=== PATIENT | female | born 1960 ===

== ENCOUNTER 2018-07-16 00:53 | Outpatient (CLI) | payer MEDICAID, SELFPAY ==
--- NOTE | 2018-07-16 07:29 | MERGE_ITS ---
*[facility]* *[facility]* [address] [place] [address] Date of study: 07/16/2018 Transthoracic Echocardiography M-mode, limited 2D, limited spectral Doppler, and color Doppler *STUDY CONCLUSIONS* Impressions: Pericardial effusion, unchanged from the study of December 2017. Summary: 1. Left ventricle: The cavity size was normal. Wall thickness was normal. Systolic function was normal. The estimated ejection fraction was 60-65%. Wall motion was normal; there were no regional wall motion abnormalities. 2. Right ventricle: The cavity size was normal. Wall thickness was normal. Systolic function was normal. 3. Inferior vena cava: The vessel was patent and normal in size. The respirophasic diameter changes were in the normal range (greater than or equal to 50%). 4. Pericardium, extracardiac: A small pericardial effusion was identified circumferential to the heart, more pronounced along the RA and RV free wall. There was no evidence of hemodynamic compromise. *PATIENT PRESENTATION* Height: 167.6cm ((66in) ) S/D Pressure: 92 / 56 Weight: 59kg ((129.7lb) ) BSA: 1.67m^2 Test start time: 07:45 AM. Test stop time: 08:15 AM. 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 This study was interpreted by [facility]. Pertinent images and digital data are archived for permanent storage and are available for subsequent review. Comparison was made to the study of 01/15/2018. Study status: Routine. Transthoracic echocardiography. M-mode, limited 2D, limited spectral Doppler, and color Doppler. A Transthoracic Echocardiogram was performed. Scanning was performed from the parasternal, apical, and subcostal acoustic windows. Images were obtained using an [id number] cardiac ultrasound machine. Study completion: The patient tolerated the procedure well. History: PMH: Pericardial effusion. Limited echo per 06/2018. *CARDIAC ANATOMY* Left ventricle: The cavity size was normal. Wall thickness was normal. Systolic function was normal. The estimated ejection fraction was 60-65%. Wall motion was normal; there were no regional wall motion abnormalities. Aorta: Aortic root: The aortic root was normal in size. Mitral valve: Structurally normal valve. Doppler: There was no significant regurgitation. Left atrium: The atrium was dilated. Right ventricle: The cavity size was normal. Wall thickness was normal. Systolic function was normal. Tricuspid valve: Structurally normal valve. Doppler: Transvalvular velocity was within the normal range. There was no evidence for stenosis. There was trivial regurgitation. Pulmonary artery: Pulmonary systolic pressure was within the normal range, in the range of 25mm Hg to 30mm Hg. Right atrium: The atrium was dilated. Pericardium: A small pericardial effusion was identified circumferential to the heart, more pronounced along the RA and RV free wall. There was no evidence of hemodynamic compromise. Systemic veins: Inferior vena cava: Well visualized. The vessel was patent and normal in size. The respirophasic diameter changes were in the normal range (greater than or equal to 50%). Baseline ECG: Bradycardia. Measurements Left ventricle Value 01/15/2018 LV end-diastolic volume, 1-p A2C 58 ml 48 LV ejection fraction, 1-p A2C 64 % 57 LV end-diastolic volume, 1-p A4C 67 ml 63 LV ejection fraction, 1-p A4C 57 % 52 Legend: (L) and (H) mirza values outside specified reference range. I have personally reviewed the images and have reviewed and edited the reported findings. Electronically signed by Humza Luz 07/16/2018 09:30
== END 2018-07-16 00:54 ==
PROVIDERS: PCP Nurse Practitioner; Visit Provider Student in an Organized Health Care Education/Training Program
DX: I31.3 Pericardial effusion (noninflammatory) (principal)
CPT/HCPCS: 93307

== ENCOUNTER 2018-11-08 10:53 | Outpatient (REF) | payer MEDICAID, SELFPAY | END 2018-11-08 11:13 | LOC: LBN 10:53 | PROVIDERS: PCP Nurse Practitioner; Visit Provider Student in an Organized Health Care Education/Training Program | DX: R10.9 Unspecified abdominal pain (principal) | CPT/HCPCS: 87086 ==

== ENCOUNTER 2019-01-16 12:35 | Outpatient (CLI) | payer MEDICAID, SELFPAY ==
[2019-01-16 13:19] LABS: HCT 38.1 % (36.0-46.0); HGB 12.9 g/dL (12.0-15.5); Mean Corp. HGB Concentration 33.9 g/dL (32.0-36.0); Mean Corpuscular Hemoglobin 31.5 pg (27.0-33.0); Mean Corpuscular Volume 92.9 fL (80-95); Mean Platelet Volume 9.9 fL (8.0-11.0); Platelet Count 254 x1000/uL (130-400); RBC Distribution Width 14.1 % (11.7-14.6); White Blood Cell Count 4.09 k/cumm (4.4-10.8)
[2019-01-16 14:07] LABS: ALT 33 U/L (12-78); AST 19 U/L (15-37); Alkaline Phosphatase 81 U/L (46-116); Anion Gap 9.9 mmol/L (3-11); BUN 13 mg/dL (7-18); Bilirubin, Total 0.9 mg/dL (0.2-1.0); CO2 27.1 mmol/L (21.0-32.0); CREATININE 0.71 mg/dL (0.55-1.02); Calcium 9.3 mg/dL (8.5-10.1); Chloride 103 mmol/L (98-107); Cholesterol 213 mg/dL (50-200); Glucose 89 mg/dL (70-100); HDL Cholesterol 104 mg/dL (40-60); LDL CHOLESTEROL 100 mg/dL (<100); Potassium 4.3 mmol/L (3.5-5.1); Sodium 140 mmol/L (136-145); TSH (W/Ref FT4) 2.81 uIU/mL (0.358-3.74); Total Protein 6.9 g/dL (6.4-8.2); Triglyceride 56 mg/dL (30-150)
[2019-01-17 10:53] LABS: Thyroglobulin Antibody 155 U/mL (<61); Thyroperoxidase Antibody 1266 U/mL (<61)
== END 2019-01-16 12:55 ==
PROVIDERS: PCP Nurse Practitioner; Visit Provider Nurse Practitioner
DX: K58.0 Irritable bowel syndrome with diarrhea (principal); F41.9 Anxiety disorder, unspecified; F32.9 Major depressive disorder, single episode, unspecified; R79.9 Abnormal finding of blood chemistry, unspecified; Z13.220 Encounter for screening for lipoid disorders
CPT/HCPCS: 36415; 80053; 80061; 83721; 85027; 86376; 84443

== ENCOUNTER 2019-02-07 01:23 | Outpatient (CLI) | payer MEDICAID, SELFPAY ==
--- NOTE | 2019-02-07 14:17 | DI.US_ITS ---
SYMPTOMS/DIAGNOSIS: MONITORING OF RENAL CYSTS TO LT KIDNEY, N28.1 RENAL ULTRASOUND: Previous CT scans showed a 9 mm simple appearing cyst in the medial aspect of the lower pole of the left kidney. This was not demonstrated on the ultrasound images performed today. The kidneys show normal size and echogenicity and normal parenchymal thickness. No calcifications or hydronephrosis is seen. A small liver cyst is incidentally noted. The right ureteral jet was visualized. The left ureteral jet was not visualized. IMPRESSION: No renal cysts are demonstrated on the current ultrasound. A cyst was seen on the left kidney on previous CT without suspicious features.
== END 2019-02-07 01:43 ==
PROVIDERS: PCP Nurse Practitioner; Visit Provider Nurse Practitioner Gerontology
DX: N28.1 Cyst of kidney, acquired (principal)
CPT/HCPCS: 76770

== ENCOUNTER 2019-10-28 19:14 | Outpatient (REF) | payer MEDICAID, SELFPAY ==
[2019-10-28 18:54] LABS: Bilirubin Negative (Negative); Blood Negative (Negative); Clarity Clear (Clear); Glucose Negative (Negative); Ketones Negative (Negative); Leukocyte Esterase Negative (Negative); Nitrite Negative (Negative); Urobilinogen 0.2 EU/dL (Up TO 0.2)
== END 2019-10-28 19:34 ==
LOC: LBN 19:14
PROVIDERS: PCP Nurse Practitioner; Visit Provider Urology
DX: R30.0 Dysuria (principal); R10.9 Unspecified abdominal pain
CPT/HCPCS: 81003; 87086

== ENCOUNTER 2020-01-06 11:59 | Emergency (ER) | payer MEDICAID, SELFPAY ==
[2020-01-06] VITALS (15 sets, daily range): BP systolic 87–119; BP diastolic 52–68; PULSE 64–72; RESP 11–20; TEMP 36.7; O2SAT 95–100
--- NOTE | 2020-01-06 12:06 | ED.GENADUL_ITS ---
Discharge Plan Disposition Patient Disposition: [facility] Condition: Serious Discharge Details Chief Complaint: Trauma Clinical Impression: Displaced comminuted fracture of shaft of left tibia Primary Care Provider: April Cummins ED Provider: Kike Magana Home Meds and New Rx's Prescriptions: No Action acetylcysteine (bulk) powder See Rx Instructions MC .COMPLEX RF: 0 valacyclovir 1 gram tablet 1,000 mg PO TID Qty: 21 RF: 3 Peppermint Oil 50 MG CAPSULE.DR 50 mg PO DAILY RF: 0 l-5-mthf 1 tab BID RF: 0 thryoid support 2 cap BID RF: 0 epinephrine [EpiPen 2-Amanuel] 0.3 MG/0.3 ML auto-injector 0.3 mg IM PRN Qty: 1 RF: 1 Lactobacillus acidophilus 10 billion cell capsule See Rx Instructions .ROUTE .COMPLEX Qty: 90 RF: 3 Visbiome 112.5 billion cell capsule 3 cap PO DAILY RF: 0 azelastine 137 mcg (0.1 %) aerosol,spray 2 spray AMBROCIO Q12H PRN (Reason: nasal congestion) Qty: 1 RF: 4 fluoxetine 20 mg capsule 60 mg PO DAILY Qty: 270 RF: 3 fluticasone propionate 50 mcg/actuation spray,suspension 1 spray AMBROCIO DAILY RF: 0 Discharge Data Discharge Date/Time-TO BE ENTERED AT DEPARTURE: 01/06/20 14:55 Medical Decision Making 12:13 --59-year-old female here with skiing related injury to left lower leg. Pain and tenderness proximal lower leg. Suspect boot top tib-fib fracture. Neurovascularly intact distally. No other injury suspected. Patient received morphine 10 mg and fentanyl 200 mcg prior to arrival. Will hold additional analgesic at this time. Plan to obtain x-ray of the tib-fib. Patient is currently in box splint that was applied by quill skinner. The seems to be maintaining immobility well. We will continue with block splint given degree of pain with any manipulation. -- xray reviewed and interpreted by me: Comminuted proximal tibial fracture extending into knee joint with some displacement as well as fibula fracture. --Dilaudid 1 mg IV administered for pain. 13:15 -- I called and spoke with Dr. Martinez, he reviewed x-ray and evaluated the patient and feels given complexity of injury he recommends transfer to tertiary care. I called [facility] and requested transfer. Imaging was sent for review. -- I spoke with Dr. Nicholas [facility] trauma who will accept the patient in transfer. She requested cxr and pelvis prior to transfer. Chest x-ray was reviewed and interpreted by me: No pneumothorax. Pelvis x-ray was reviewed and interpreted by me: No fracture. [facility] transfer was arranged for analgesia. Blood pressure noted to be on the lower end of normal with systolic in the 90s. I will give fluid bolus 500 mL of saline to lower for further analgesic opioid dosing during transport. HPI General Mode of arrival: ambulatory . Date/Time Provider Initiated Documentation: 01/06/20 12:03 . Limitations to Documentation: no limitations . Information obtained by: patient . HPI Narrative: 59-year-old female presents with chief complaint of left lower extremity pain. Patient was skiing, caught an edge and left leg twisted and she sustained injury to her left lower leg. This occurred just prior to arrival. spinning bath patroller assisted the patient off the hill and transition to EMS. Patient received fentanyl and morphine prior to arrival. Pain is sharp, still severe and worse with any movement of her lower leg. She has no associated numbness. No other injury sustained. Related Data Home Medications Medication Instructions Recorded Confirmed Peppermint Oil 50 mg PO DAILY 11/01/17 01/06/20 L-5-Mthf 1 tab BID 01/25/18 01/06/20 Thryoid Support 2 cap BID 03/28/18 01/06/20 epinephrine [Epipen 2-Amanuel] 0.3 mg IM PRN #1 u 07/18/18 01/06/20 acetylcysteine (bulk) See Rx Instructions MC .COMPLEX gm 01/16/19 01/06/20 Lactobacillus acidophilus 10 See Rx Instructions .ROUTE 02/05/19 01/06/20 billion cell capsule .COMPLEX #90 cap Lactobac #2-Bifido #1-S. therm 3 cap PO DAILY cap 03/19/19 01/06/20 112.5 billion cell capsule azelastine 137 mcg (0.1 %) nasal 2 spray AMBROCIO Q12H PRN #1 unit 08/13/19 01/06/20 spray aerosol valacyclovir 1 gram tablet 1,000 mg PO TID #21 tab 08/13/19 01/06/20 fluoxetine 20 mg capsule 60 mg PO DAILY #270 tab-cap 09/03/19 01/06/20 fluticasone propionate 50 1 spray AMBROCIO DAILY 10/30/19 01/06/20 mcg/actuation nasal spray,suspension Previous Rx's Medication Instructions Recorded epinephrine [Epipen 2-Amanuel] 0.3 mg IM PRN #1 u 07/18/18 Lactobacillus acidophilus 10 See Rx Instructions .ROUTE 02/05/19 billion cell capsule .COMPLEX #90 cap azelastine 137 mcg (0.1 %) nasal 2 spray AMBROCIO Q12H PRN #1 unit 08/13/19 spray aerosol valacyclovir 1 gram tablet 1,000 mg PO TID #21 tab 08/13/19 fluoxetine 20 mg capsule 60 mg PO DAILY #270 tab-cap 09/03/19 Allergies Allergy/AdvReac Type Severity Reaction Status Date / Time bee pollen Allergy Unknown throat Verified 01/06/20 12:08 closes up wheat Allergy Unknown Skin Rash Verified 01/06/20 12:08 sugar Allergy Unknown Uncoded 01/06/20 12:08 Review of Systems All systems reviewed & are unremarkable except as noted in HPI and below ENT Ears, Nose, Mouth, and Throat: Denies neck pain Cardiovascular Cardiovascular: Denies chest pain and Denies dyspnea Respiratory Respiratory: Denies dyspnea Musculoskeletal Musculoskeletal: Reports as per HPI, Denies back pain and Denies neck pain PFSH Medical History Degenerative disc disease, cervical Genital herpes (Acute) Incontinence in female Kidney stone Pyelonephritis (10/13/15) Surgical History Appendectomy (~1976) Kidney Stone Extraction (10/11/15) Social History Smoking/Tobacco Use Status: Never Alcohol Intake: never Drug use: Never Number of Children: 1 Seatbelt use: always 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 Working smoke detector in home: Yes Carbon monox detector in home: Yes Exam Const General: cooperative and no acute distress HENMT Head: normocephalic and atraumatic Mouth: moist mucous membranes Eyes Conjunctivae: normal conjunctivae Sclera: normal sclerae Neck Neck: full ROM, trachea midline and supple Resp Auscultation: clear to auscultation bilaterally, no rales, no rhonchi and no wheezes Cardio Jugular venous pressure: no JVD Rate: regular rate and not tachycardic Rhythm: regular rhythm Pulses: dorsalis pedis pulses present bilaterally 1+ GI Palpation: soft, not firm, no guarding, no masses, not rigid and nontender Back/Spine/Pelvis Cervical Spine: cervical ROM normal and No cervical spinal tenderness Thoracic/Lumbar Spine: No thoracic spinal tenderness and No lumbar spinal tenderness Skin General skin exam: no rashes or lesions noted Neuro General: alert, awake, oriented x3 and tone normal Motor: other (Able to wiggle toes left foot) Sensory Exam: no sensory deficits noted (Left foot) Extrem General: no edema Left lower extremity: hip/thigh Details: no tenderness and no swelling and lower leg Details: tenderness Location: of the proximal tibia and localized swelling Location: of the proximal lower leg and of the mid lower leg Psych Appearance: grossly normal Mental Status: mental status grossly normal
[2020-01-06 12:29] LABS: HCT 35.1 % (36.0-46.0); HGB 11.8 g/dL (12.0-15.5); Mean Corp. HGB Concentration 33.6 g/dL (32.0-36.0); Mean Corpuscular Hemoglobin 31.6 pg (27.0-33.0); Mean Corpuscular Volume 93.9 fL (80-95); Mean Platelet Volume 9.5 fL (8.0-11.0); Platelet Count 229 x1000/uL (130-400); RBC 3.74 m/cumm (4.00-5.20); RBC Distribution Width 13.8 % (11.7-14.6); White Blood Cell Count 5.75 k/cumm (4.4-10.8)
--- NOTE | 2020-01-06 12:32 | DI.RAD_ITS ---
EXAM: XR TIB/FIB LT INDICATION: PAIN, INJURY. COMPARISON: No exams were available for comparison TECHNIQUE: 2D digital imaging was performed. FINDINGS: The exam is limited by overlying material. Knee is in an immobilizer. There is a comminuted fractur e of the proximal tibial metaphysis, which shows some lateral and posterior displacement. The fractu re extends to the articular surface near the tibial spines. There is also a comminuted fracture of t he proximal fibula, which is displaced. There is no depression at the tibial plateaus. The distal f emur appears intact. The distal tibia and fibula and ankle mortise also appear intact. IMPRESSION: Comminuted fractures of the proximal tibia and fibula.
[2020-01-06 12:44] LABS: ALT 26 U/L (14-59); AST 18 U/L (15-37); Albumin 3.9 g/dL (3.4-5.0); Alkaline Phosphatase 57 U/L (46-116); Anion Gap 8.6 mmol/L (3-11); BUN 14 mg/dL (7-18); Bilirubin, Total 0.3 mg/dL (0.2-1.0); CO2 28.4 mmol/L (21.0-32.0); CREATININE 0.96 mg/dL (0.55-1.02); Calcium 8.6 mg/dL (8.5-10.1); Chloride 105 mmol/L (98-107); Estimated GFR 59.09 (mL/min/1.73m2); Glucose 97 mg/dL (74-106); Potassium 3.8 mmol/L (3.5-5.1); Sodium 142 mmol/L (136-145); Total Protein 6.3 g/dL (6.4-8.2)
[2020-01-06 12:54] LABS: INR 1.1 (0.9-1.1); Prothrombin Time 11.3 sec (9.3-11.0)
[2020-01-06] MEDS: HYDROmorphone 2 MG/ML VIAL 1 MG IVP (12:58)
--- NOTE | 2020-01-06 13:30 | OCONE_ITS ---
Date of service: 01/06/20 Time of Service: 13:31 History of Present Illness History of Present Illness Chief Complaint: Left Leg Injury Narrative: Kalyn is a 59-year-old female was skiing today at [employer]. She is not exactly sure the mechanism but she was coming down towards way when she had some right some loss control. She had immediate pain to the left leg. This pain is over the proximal aspect the left leg. Does not associate with any head trauma loss of consciousness. She denies any foot or ankle or hip pain of the i psilateral leg. She denies any chest discomfort, shortness of breath, chest pain, numbness or tingling. Consults Consult date: 01/06/20 Requesting physician: Kike Magana Consult Reason Left proximal tib-fib fracture Assessment and Plan Assessment and plan (1) Closed fracture of left tibia and fibula: Status: Acute Assessment and plan: Kalyn is a 59-year-old active female who suffered an injury to her left leg while skiing. There is a proximal tib-fib fracture. The fracture in the fibula is quite high but appears to be in contact and therefore does not necessarily be fixed. The tibia appears to be extra-articular. I would recommend a CT scan to evaluate any articular involvement. I discussed the case with lies in detail. I expressed the importance of trying to stabilize this fracture as soon as possible. She had significant pain on the mountain, and transport, and on admission to the emergency department. However, she is currently much more comfortable now in the block splint and requested that the block splint remain in place. She seems to be in a good position and gentle motion of the block splint shows that the leg is stabilized well. Therefore, I will keep her on the block splint. I recommended surgical intervention to the left leg. I would like to attain the CT scan prior to proceeding with the operation. I did explain the complexity of this case including the high risk of compartment syndrome. Given these complexities it would benefit from tertiary center involvement for possible management of compartment syndrome and a complex proximal tib-fib fracture. I encouraged elevation and ice at this point. Given that she is comfortable in the box point we will keep this in place although a long-leg splint would be probably best. I discussed this with Dr. Magana and we will work on transfer to a tertiary center, likely [facility]. Qualifiers: Encounter type: initial encounter Qualified Code(s): S82.202A - Unspecified fracture of shaft of left tibia, initial encounter for closed fracture; S82.402A - Unspecified fracture of shaft of left fibula, initial encounter for closed fracture Review of Systems All systems reviewed & are unremarkable except as noted in HPI and below PFSH Medical History Degenerative disc disease, cervical Genital herpes (Acute) Incontinence in female Kidney stone Pyelonephritis (10/13/15) Surgical History Appendectomy (~1976) Kidney Stone Extraction (10/11/15) Social History Smoking/Tobacco Use Status: Never Alcohol Intake: never Drug use: Never Number of Children: 1 Seatbelt use: always 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 In obvious pain but able to participate in the examination. Head is normocephalic and atraumatic. She is in no acute distress and alert and oriented x3. Extrem Other: Evaluation of the left lower extremity shows no significant malrotation. The left leg is in a wooden box splint. There is notable swelling to the proximal left leg with mild ecchymosis. Palpation of the compartments does show some pain but they are soft. She is able to actively extend and flex the great toe. She is able demonstrate some very gentle ankle range of motion but is reluctant to do so. Passive flexion extension of the great toe as well as the ankle causes only mild pain. There is obvious pain to palpation around the proximal left leg. No appreciable effusion but there is swelling seen around the knee. There is palpable PT DP pulses. She endorses full sensation over the superficial and deep peroneal nerves as well as the tibial nerve. Results Last Vital Signs Temp 36.7 C 01/06/20 11:57 Pulse 64 01/06/20 11:57 Resp 20 01/06/20 11:57 BP 108/55 L 01/06/20 11:57 Pulse Ox 100 01/06/20 11:57 Labs Result diagrams: 01/06/20 12:18 01/06/20 12:18 Labs: Laboratory Results - last 24 hr 01/06/20 01/06/20 01/06/20 12:18 12:18 12:18 WBC 5.75 RBC 3.74 L Hgb 11.8 L Hct 35.1 L MCV 93.9 MCH 31.6 MCHC 33.6 RDW 13.8 Plt Count 229 MPV 9.5 PT 11.3 H INR 1.1 Sodium 142 Potassium 3.8 Chloride 105 Carbon Dioxide 28.4 Anion Gap 8.6 BUN 14 Creatinine 0.96 Estimated GFR/1.73 m2 59.09 Glucose 97 Calcium 8.6 Total Bilirubin 0.3 AST 18 ALT 26 Alkaline Phosphatase 57 Total Protein 6.3 L Albumin 3.9 Imaging Imaging Studies: X-ray of the left tibia and fibula demonstrates a primarily transverse proximal tib-fib fracture. There is fracture irregularity but no significant comminution except at the fibular head neck region. The proximal fibula fracture goes through the base of the head at the level of the neck. There is some mild translation of the fracture fragments medially. There is slight apex anterior deformity as well. There is no clear extension into the articular surface.
--- NOTE | 2020-01-06 13:40 | DI.RAD_ITS ---
EXAM: XR PELVIS AP INDICATION: trauma. COMPARISON: No exams were available for comparison TECHNIQUE: 2D digital imaging was performed. FINDINGS: A single AP view was performed. The exam is somewhat limited by overlying material. No fracture or dislocation is seen. There is spurring of both greater trochanters. There are minimal degenerative changes of the hip joints. The SI joints and pubic symphysis are not widened. IMPRESSION: Mild degenerative changes. No acute abnormality.
--- NOTE | 2020-01-06 13:42 | DI.RAD_ITS ---
EXAM: XR CHEST 1V IN DI DEPT INDICATION: trauma. COMPARISON: No exams were available for comparison TECHNIQUE: 2D digital imaging was performed. AP supine views were performed. FINDINGS: The heart size is within normal limits. The lungs appear clear. No pneumothorax or rib fracture is seen. IMPRESSION: Negative supine chest.
[2020-01-06] MEDS: Normal Saline 500 ML 1000 ML IV (14:25)
== END 2020-01-06 14:55 | disposition short-term general hospital (02) ==
PROVIDERS: Emergency Provider Student in an Organized Health Care Education/Training Program; PCP Nurse Practitioner
DX: S82.252A Displaced comminuted fracture of shaft of left tibia, initial encounter for closed fracture (principal); S82.452A Displaced comminuted fracture of shaft of left fibula, initial encounter for closed fracture; V00.328A Other snow-ski accident, initial encounter; Y93.23 Activity, snow (alpine) (downhill) skiing, snowboarding, sledding, tobogganing and snow tubing
CPT/HCPCS: 36415; 80053; 85027; 96374; 99253; 99285; 71045; 72170; 73590; 85610

== ENCOUNTER 2020-02-03 22:31 | Outpatient (REF) | payer MEDICAID, SELFPAY ==
[2020-02-03 21:24] LABS: Bilirubin Negative (Negative); Blood Negative (Negative); Clarity Clear (Clear); Glucose Negative (Negative); Ketones Trace mg/dL (Negative); Leukocyte Esterase Negative (Negative); Nitrite Negative (Negative); Specific Gravity 1.015 (1.005-1.025); Urobilinogen 0.2 EU/dL (Up TO 0.2); pH 7.5 (5-8)
== END 2020-02-03 22:51 ==
LOC: LBN 22:31
PROVIDERS: PCP Nurse Practitioner; Visit Provider Family Medicine
DX: N39.0 Urinary tract infection, site not specified (principal); R10.9 Unspecified abdominal pain
CPT/HCPCS: 81003; 87086

== ENCOUNTER 2020-03-23 13:00 | Outpatient (CLI) | payer MEDICAID, SELFPAY ==
--- NOTE | 2020-03-23 13:35 | DI.RAD_ITS ---
EXAM: XR TIB/FIB LT CLINICAL HISTORY: LT TIB FX ORIF TECHNIQUE: COMPARISON: XR TIB/FIB LT from 01/06/2020 XR PELVIS AP from 01/06/2020 XR ANKLE LT COMPLETE from 03/23/2020 FINDINGS: Two views of the leg and three views of the ankle were obtained and show plate and screw fixation of proximal tibial metaphyseal fracture. Proximal fibular fracture noted as well. No prior postoperati ve films available for comparison. The ankle mortise is well maintained. There is demineralization of the bones of the ankle and foot. No other significant abnormality seen. IMPRESSION:
== END 2020-03-23 13:20 ==
PROVIDERS: PCP Nurse Practitioner; Visit Provider Orthopaedic Surgery
DX: S82.252D Displaced comminuted fracture of shaft of left tibia, subsequent encounter for closed fracture with routine healing (principal); S82.452D Displaced comminuted fracture of shaft of left fibula, subsequent encounter for closed fracture with routine healing
CPT/HCPCS: 73590; 73610

== ENCOUNTER 2020-04-06 00:33 | Outpatient (CLI) | payer MEDICAID, SELFPAY ==
--- NOTE | 2020-04-06 | DI.RAD_ITS ---
EXAM: XR TIB/FIB LT CLINICAL HISTORY: H/O LT TIB FX, ORIF FOR FX, NEW ANKLE PAIN TECHNIQUE: COMPARISON: CR XR TIB/FIB LT from 03/23/2020 FINDINGS: Two views were obtained and show plate and screw fixation proximal tibial fracture with previously no livia proximal fibular fracture as well. Alignment appears unchanged comparison previous examination A pril . IMPRESSION:
--- NOTE | 2020-04-06 | DI.RAD_ITS ---
EXAM: XR ANKLE LT COMPLETE CLINICAL HISTORY: H/O LT TIB FX, ORIF, NEW ANKLE PAIN TECHNIQUE: COMPARISON: CR XR ANKLE LT COMPLETE from 03/23/2020 FINDINGS: Three views of the ankle were obtained. Bones appear somewhat demineralized which is presumably rela livia to recent tibiofibular fracture. The ankle mortise is well maintained. Minimal periarticular sp urring noted involving the bones of the ankle. No other significant abnormality seen. IMPRESSION:
== END 2020-04-06 00:53 ==
PROVIDERS: PCP Nurse Practitioner; Visit Provider Orthopaedic Surgery
DX: S82.252D Displaced comminuted fracture of shaft of left tibia, subsequent encounter for closed fracture with routine healing (principal); S82.452D Displaced comminuted fracture of shaft of left fibula, subsequent encounter for closed fracture with routine healing; M25.572 Pain in left ankle and joints of left foot
CPT/HCPCS: 73590; 73610

== ENCOUNTER 2020-04-26 03:47 | Outpatient (CLI) | payer MEDICAID, SELFPAY ==
[2020-04-26 13:20] LABS: Abs Immature Grans 0.01 k/cumm (0.0-0.09); Absolute Basophil Count 0.02 k/cumm (0.0-0.2); Absolute Eosinophil Count 0.09 k/cumm (0.0-0.7); Absolute Lymphocyte Count 1.73 k/cumm (1.2-3.4); Absolute Monocyte Count 0.34 k/cumm (0.11-0.7); Absolute Neutrophil Count 3.47 k/cumm (1.2-6.7); Basophils % 0.4; Eosinophils % 1.6; HGB 12.8 g/dL (12.0-15.5); Immature Grans % 0.2 %; Lymphocytes % 30.6; Mean Corp. HGB Concentration 33.7 g/dL (32.0-36.0); Mean Corpuscular Hemoglobin 29.4 pg (27.0-33.0); Mean Corpuscular Volume 87.4 fL (80-95); Mean Platelet Volume 9.8 fL (8.0-11.0); Neutrophils % 61.2; Platelet Count 292 x1000/uL (130-400); RBC 4.35 m/cumm (4.00-5.20); RBC Distribution Width 14.5 % (11.7-14.6); White Blood Cell Count 5.66 k/cumm (4.4-10.8)
[2020-04-26 14:03] LABS: Iron 59 ug/dL (50-170); Total Iron Binding Capacity 274 ug/dL (250-450); Transferrin Sat 22 % (15-50)
[2020-04-26 14:26] LABS: Vitamin D 25 Total 41.2 ng/ml (30-100)
[2020-04-26 14:32] LABS: ALT 36 U/L (14-59); AST 17 U/L (15-37); Albumin 3.9 g/dL (3.4-5.0); Alkaline Phosphatase 74 U/L (46-116); BUN 18 mg/dL (7-18); Bilirubin, Total 0.4 mg/dL (0.2-1.0); Calcium 8.9 mg/dL (8.5-10.1); Calculated LDL 127 mg/dL (<100); Chloride 104 mmol/L (98-107); Cholesterol 228 mg/dL (<200); Ferritin 121 ng/mL (8-252); Glucose 101 mg/dL (74-106); HDL Cholesterol 81 mg/dL (40-60); Sodium 139 mmol/L (136-145); TSH 2.11 uIU/mL (0.36-3.74); Total Protein 6.4 g/dL (6.4-8.2); Triglyceride 102 mg/dL (<150); Vitamin B12 1442 pg/mL (193-986)
[2020-04-26 15:14] LABS: FREE T4 1.22 ng/dL (0.76-1.46)
[2020-04-26 21:38] LABS: T3,Free 3.1 pg/mL (2.8-5.3)
[2020-04-27 10:04] LABS: IgA 130 mg/dL (85-499); IgG 585 mg/dL (610-1,616); IgM 60 mg/dL (35-242)
[2020-04-27 15:14] LABS: Thyroperoxidase Antibody 771 U/mL (<=60)
[2020-04-28 16:10] LABS: Thyroglobulin Antibody 169 U/mL (<=60)
== END 2020-04-26 04:07 ==
PROVIDERS: PCP Nurse Practitioner; Visit Provider Naturopath
DX: Z00.00 Encounter for general adult medical examination without abnormal findings (principal); Z13.29 Encounter for screening for other suspected endocrine disorder; Z13.220 Encounter for screening for lipoid disorders; Z13.21 Encounter for screening for nutritional disorder
CPT/HCPCS: 36415; 80053; 80061; 82306; 82784; 82607; 82728; 83540; 83550; 84439; 84443; 84481; 85025; 86376; 86800

== ENCOUNTER 2020-04-26 09:14 | Outpatient (CLI) | payer MEDICAID, SELFPAY ==
--- NOTE | 2020-04-26 10:35 | DI.RAD_ITS ---
EXAM: XR TIB/FIB LT CLINICAL HISTORY: F/U FX, S82.392S TECHNIQUE: COMPARISON: CR XR TIB/FIB LT from 04/06/2020 FINDINGS: Two views were obtained and show previously described proximal tibial and fibular fractures with plat e and screw fixation of the tibia. Alignment appears unchanged comparison with previous examination of April 06. IMPRESSION:
== END 2020-04-26 09:34 ==
PROVIDERS: PCP Nurse Practitioner; Visit Provider Naturopath
DX: S82.252D Displaced comminuted fracture of shaft of left tibia, subsequent encounter for closed fracture with routine healing (principal); S82.452D Displaced comminuted fracture of shaft of left fibula, subsequent encounter for closed fracture with routine healing
CPT/HCPCS: 73590

== ENCOUNTER 2020-06-08 00:57 | Outpatient (CLI) | payer MEDICAID, SELFPAY ==
--- NOTE | 2020-06-08 | DI.RAD_ITS ---
EXAM: XR FOOT LT COMPLETE CLINICAL HISTORY: LT FOOT/ANKLE PAIN,MEDIALLY, ASSESS FOR FX, ARTHRITIS, BONE SPUR TECHNIQUE: COMPARISON: No exams were available for comparison FINDINGS: Three views were obtained. There is a moderate hallux valgus deformity with moderate secondary degenerative changes at the 1st M TP joint. Mild DJD seen involving the joints of the midfoot and IP joints. There is patchy deminera lization of the bones of the foot and ankle. No other significant abnormality seen. IMPRESSION:
== END 2020-06-08 01:17 ==
PROVIDERS: PCP Naturopath; Visit Provider Physician Assistant
DX: M79.672 Pain in left foot (principal); M25.572 Pain in left ankle and joints of left foot; M19.072 Primary osteoarthritis, left ankle and foot; M20.12 Hallux valgus (acquired), left foot
CPT/HCPCS: 73630

== ENCOUNTER 2020-08-13 16:49 | Outpatient (REF) | payer MEDICAID, SELFPAY ==
[2020-08-13 17:07] LABS: Bilirubin Negative (Negative); Blood Negative (Negative); Clarity Clear (Clear); Glucose Negative (Negative); Ketones Negative (Negative); Leukocyte Esterase Negative (Negative); Nitrite Negative (Negative); Urobilinogen 0.2 EU/dL (Up TO 0.2)
== END 2020-08-13 17:09 ==
LOC: LBN 16:49
PROVIDERS: PCP Nurse Practitioner; Visit Provider Naturopath
DX: R39.15 Urgency of urination (principal); R10.9 Unspecified abdominal pain
CPT/HCPCS: 81003

== ENCOUNTER 2020-08-18 08:22 | Outpatient (CLI) | payer MEDICAID, SELFPAY ==
[2020-08-18 10:14] LABS: FREE T4 0.89 ng/dL (0.76-1.46); TSH 2.26 uIU/mL (0.36-3.74)
[2020-08-18 17:45] LABS: T3,Free 2.4 pg/mL (2.8-5.3)
== END 2020-08-18 08:42 ==
PROVIDERS: PCP Nurse Practitioner; Visit Provider Naturopath
DX: E03.9 Hypothyroidism, unspecified (principal); R53.83 Other fatigue
CPT/HCPCS: 36415; 84439; 84443; 84481

== ENCOUNTER 2020-12-21 10:18 | Outpatient (CLI) | payer MEDICAID, SELFPAY ==
--- NOTE | 2020-12-21 12:00 | DI.RAD_ITS ---
EXAM: XR TMJ BL INDICATION: Bilateral TMJ pain. Grinds teeth, neck pain, jaw pain, M54.2. COMPARISON: No exams were available for comparison TECHNIQUE: 2D digital imaging was performed. FINDINGS: There is normal mobility of the right temporomandibular joint on open and closed mouth views. There is no apparent movement of the left temporomandibular joint on the open or closed mouth view. No deg enerative or erosive changes are seen. The sinuses appear clear.. IMPRESSION: Abnormal lack of motion of the left temporomandibular joint. The right side shows normal motion. DATA REPOSITORY: RADIATION DOSE DELIVERED:
--- NOTE | 2020-12-21 12:00 | DI.RAD_ITS ---
EXAM: XR ELBOW RT COMPLETE CLINICAL HISTORY: pain s/p injury, M25.521. TECHNIQUE: 2D digital imaging was performed. COMPARISON: No exams were available for comparison FINDINGS: BONES: No acute fracture is present. No bony destructive lesion is seen. JOINTS: The elbow is normally aligned. No joint effusion is seen. SOFT TISSUE: Normal. IMPRESSION: Unremarkable radiographs of the right elbow. DATA REPOSITORY: RADIATION DOSE DELIVERED:
--- NOTE | 2020-12-21 12:00 | DI.RAD_ITS ---
EXAM: XR THORACIC SPINE COMPLETE CLINICAL HISTORY: thoracic back pain, injury, M54.9. TECHNIQUE: 2D digital imaging was performed. COMPARISON: CR XR CERVICAL SPINE COMP 4-5V from 12/21/2020 FINDINGS: BONES: There is no fracture or destructive lesion. The vertebral bodies and posterior elements are un remarkable. DISKS:Alignment is within normal limits. There is narrowing of the upper thoracic disc spaces and sm all endplate osteophytes. Mid and lower disc spaces are well maintained. SOFT TISSUE: Visualized lungs are clear. Normal heart size. IMPRESSION: Mild degenerative changes of the upper thoracic spine. DATA REPOSITORY: RADIATION DOSE DELIVERED:
--- NOTE | 2020-12-21 12:00 | DI.RAD_ITS ---
EXAM: XR CERVICAL SPINE COMP 4-5V CLINICAL HISTORY: neck pain after injury, M54.2. TECHNIQUE: 2D digital imaging was performed. COMPARISON: No exams were available for comparison FINDINGS: There is no evidence of fracture or subluxation. There has been a previous anterior fusion at C4 thr ough C6. There is mild narrowing of the C 3 4 and C6-7 disc spaces. There are endplate osteophytes at these levels projecting mainly anteriorly. There are facet joint degenerative changes greatest at C7-T1. Neural foraminal narrowing is noted at C6-7 on the right. Airway appears intact. No prever tebral soft tissue swelling. The visualized Portions of the lungs appear clear. IMPRESSION: Postsurgical and degenerative changes. DATA REPOSITORY: RADIATION DOSE DELIVERED:
== END 2020-12-21 10:38 ==
PROVIDERS: PCP Nurse Practitioner; Visit Provider Nurse Practitioner
DX: M47.814 Spondylosis without myelopathy or radiculopathy, thoracic region (principal); M26.69 Other specified disorders of temporomandibular joint; M54.2 Cervicalgia; M25.521 Pain in right elbow; Z98.1 Arthrodesis status; M99.51 Intervertebral disc stenosis of neural canal of cervical region
CPT/HCPCS: 70330; 72050; 72072; 73080

== ENCOUNTER 2021-01-04 00:57 | Outpatient (CLI) | payer MEDICAID, SELFPAY ==
--- NOTE | 2021-01-04 07:00 | DI.MRI_ITS ---
EXAM: MR CERVICAL SPINE WO CLINICAL HISTORY: Neck pain s/p fall about 1 mos ago.,M54.2,Z98.1,ARTHRODESIS STATUS,H/O FUSI TECHNIQUE: Multiplanar multisequence MRI of the cervical spine was performed without intravenous con trast. COMPARISON: No exams were available for comparison FINDINGS: BONES: Vertebral body heights are maintained. Intervertebral disc spaces are normal. There is straigh tening of the normal cervical lordosis with mild reversal at the C3-C4 level. Degenerative endplate signal changes are seen at C2-3, C3-4, C6-C7 and T1-T2. Anterior cervical fusion from C4 through C6. CERVICAL CORD: Craniovertebral junction is unremarkable. There is a single focus of hyperintensity wi thin the anterior spinal cord posterior to the C5 vertebral body. SOFT TISSUES: Unremarkable. C2-3: Mild prominence of the osteophyte disc complex with a face and of the anterior subarachnoid spa ce. No significant central spinal canal or neural foraminal stenosis. C3-4: Prominence of the osteophyte disc complex causing central spinal canal stenosis. The AP diamet er of the spinal canal is 0.7 cm. There is mild right neural foraminal stenosis. No significant lef t neural foraminal stenosis is present. C4-5: No disc herniation or bulge is identified. Mild narrowing of the left neural foramen. There is artifact from the patient's cervical fusion. There is mild narrowing of the central spinal canal. C5-6: No disc herniation or bulge is identified. There is artifact from the patient's cervical fusion . No definite neural foraminal stenosis is seen. C6-7: There does appear to be a mild diffuse disc bulge. No significant central spinal canal stenosi s. There does appear to be mild to moderate bilateral neural foraminal stenosis. C7-T1: There is a mild diffuse disc bulge. No significant central spinal canal stenosis is seen. No significant neural foraminal stenosis. IMPRESSION: 1. 3 mm area of hyperintense signal in the anterior spinal cord posterior to the C5 vertebral body. A postcontrast CT scan of the cervical spine is recommended for further evaluation. 2. Status post C4 through C6 cervical fusion. 3. Multilevel degenerative changes in the cervical spine resulting in central spinal canal and neural foraminal stenosis as described above. DATA REPOSITORY:
== END 2021-01-04 00:58 ==
LOC: DI 00:58
PROVIDERS: PCP Nurse Practitioner; Visit Provider Nurse Practitioner
DX: M54.2 Cervicalgia (principal); Z98.1 Arthrodesis status; M48.02 Spinal stenosis, cervical region
CPT/HCPCS: 72141

== ENCOUNTER 2021-06-28 06:58 | Emergency (ER) | payer MEDICAID, SELFPAY ==
[2021-06-28] VITALS (35 sets, daily range): BP systolic 99–121; BP diastolic 58–90; PULSE 49–65; RESP 7–20; TEMP 36.1; O2SAT 93–100
--- NOTE | 2021-06-28 07:00 | RT.EKG_ITS ---
APPROVED REPORT Exam: Resting ECG Reason for Exam: chest pain Patient Location: E HR:60 bpm ECG Measurements Heart Rate 60 AXIS HI 157 P 52 QRSd 86 QRS 47 QT 416 T 57 QTc 416 Conclusion Sinus rhythm...normal P axis, V-rate 60- 99 Low voltage, extremity leads...all extremity leads <0.5mV
--- NOTE | 2021-06-28 07:03 | ED.GENADUL_ITS ---
Discharge Plan Disposition Patient Disposition: HOME Condition: Stable Discharge Details Clinical Impression: Chest pain, Back pain, Abdominal pain, Constipation, Gastritis Primary Care Provider: April Cummins ED Provider: Kike Magana Home Meds and New Rx's Prescriptions: New pantoprazole [Protonix] 40 mg tablet,delayed release (DR/EC) 40 mg PO DAILY Qty: 30 RF: 0 glycerin (adult) Suppository 1 supp TX QD-BID PRN (Reason: constipation) Qty: 12 RF: 0 Continued acetylcysteine (bulk) powder See Rx Instructions MC .COMPLEX RF: 0 valacyclovir 1 gram tablet 1,000 mg PO TID Qty: 21 RF: 3 baclofen 5 mg tablet 5 mg PO BID PRN (Reason: muscle spasm) Qty: 30 RF: 0 epinephrine [EpiPen 2-Amanuel] 0.3 MG/0.3 ML auto-injector 0.3 mg IM PRN Qty: 1 RF: 1 fluoxetine 20 mg capsule 60 mg PO DAILY Qty: 270 RF: 3 gabapentin 300 mg capsule 300 mg PO TID RF: 0 fluticasone propionate 50 mcg/actuation spray,suspension 2 spray AMBROCIO DAILY Qty: 18.2 RF: 12 No Action Peppermint Oil 50 MG CAPSULE.DR 50 mg PO DAILY RF: 0 l-5-mthf 1 tab BID RF: 0 thryoid support 2 cap BID RF: 0 Lactobacillus acidophilus 10 billion cell capsule See Rx Instructions .ROUTE .COMPLEX Qty: 90 RF: 3 VSL#3 112.5 billion cell capsule 3 cap PO DAILY Qty: 270 RF: 3 naproxen sodium 220 mg tablet 220 mg PO BID PRNRF: 0 Discharge Instructions Instructions: Gastritis (ED), Constipation (ED) Additional Instructions: Medication reconciliation was performed today. Please be sure to review your medications with your prescribing physician. CT scan of your abdomen revealed findings consistent with gastric wall inflammation. This may be related to gastritis. It is recommended that you decrease dosing of NSAIDs including naproxen. Please take Protonix as prescribed. Please follow-up with your primary care physician as additional diagnostic testing may be necessary should symptoms persist. Please contact your primary care physician today to arrange follow-up. Return to the ER for any worsening or new concerning symptoms. Referrals: April Cummins NP [Primary Care Provider] - Discharge Data Discharge Date/Time-TO BE ENTERED AT DEPARTURE: 06/28/21 11:05 Medical Decision Making <Ree David Chaparro DO - Last Filed: 06/30/21 04:05> 60-year-old female with a history of irritable bowel syndrome, appendectomy, C- section presents for left-sided chest pain, left-sided abdominal pain and left- sided upper back pain for the past 2 weeks. She does admit that she has had frequent chest pain over the past 2 years but states this is been worse and now mainly on the left side for the past 2 weeks. EKG notes a rate of 60, sinus, no STEMI and nondiagnostic. She appears somewhat uncomfortable but nontoxic. Her vitals are within normal limits. Her left paraspinal region is tender to palpation and reproducible with head movement and this appears musculoskeletal. She has scattered wheezing in her left chest. Her abdomen is soft and very minimally tender with deep palpation of left upper and lower quadrants. Suspect her symptoms in the chest and abdomen may likely be due to constipation. Suspect her left back pain is musculoskeletal and either unrelated or viscerosomatic response. Also consider small bowel obstruction, PE. Will place an IV, bolus IV fluids, screening labs, CT chest abdomen and pelvis and give a dose of Toradol and Zofran IV and Valium p.o. and reassess. Labs reviewed and unremarkable. Normal white blood cell count. Troponin negative. Case endorsed to Dr. Magana to follow-up on imaging and final disposition. Medical Records Medical records reviewed: Yes I reviewed the patient's medical records. Lab Data Lab results reviewed: Yes I reviewed the patient's lab results. Labs: Laboratory Tests Range/Units 06/28/21 06/28/21 07:10 07:10 WBC (4.4-10.8) 10^3/uL 4.91 RBC (3.93-5.22) 10^6/uL 4.00 Hgb (11.2-15.7) g/dL 12.5 Hct (36.0-46.0) % 36.9 MCV (80-95) fL 92.3 MCH (27.0-33.0) pg 31.3 MCHC (32.0-36.0) % 33.9 RDW (11.7-14.6) % 13.3 Plt Count (130-400) 10^3/uL 268 MPV (8.0-11.0) fL 9.2 Immature Gran % 0.2 Neutrophils % 50.1 Lymphocytes % 38.9 Monocytes % 6.7 Eosinophils % 3.1 Basophils % 1.0 Nucleated RBC % % 0 Absolute Neutrophils (1.2-6.7) 10^3/uL 2.46 Absolute Lymphocytes (1.2-3.4) 10^3/uL 1.91 Absolute Monocytes (0.1-0.8) 10^3/uL 0.33 Absolute Eosinophils (0.0-0.7) 10^3/uL 0.15 Absolute Basophils (0.0-0.2) 10^3/uL 0.05 Sodium (136-145) mmol/L 137 Potassium (3.5-5.1) mmol/L 4.0 Chloride (98-107) mmol/L 101 Carbon Dioxide (21.0-32.0) mmol/L 30.2 Anion Gap (3-11) mmol/L 5.8 BUN (7-18) mg/dL 11 Creatinine (0.55-1.02) mg/dL 0.7 Estimated GFR/1.73 m2 (mL/min/1.73m2) >= 60.00 Glucose (74-106) mg/dL 92 Calcium (8.5-10.1) mg/dL 8.8 Magnesium (1.8-2.4) mg/dL 2.1 Total Bilirubin (0.2-1.0) mg/dL 0.6 AST (15-37) U/L 16 ALT (14-59) U/L 39 Alkaline Phosphatase (46-116) U/L 65 Troponin I (<0.06) ng/mL < 0.05 Total Protein (6.4-8.2) g/dL 6.5 Albumin (3.4-5.0) g/dL 3.9 ECG Data Attestation: I personally reviewed and interpreted this ECG (s) as follows: Interpretation: Rate of 60, sinus, no acute ST elevation or depression. TX 157. QTc 416. <Kike Magana MD - Last Filed: 06/29/21 16:37> CT of the chest and abdomen pelvis was interpreted by radiology: IMPRESSION:No evidence of pulmonary embolic disease. Gastric wall thickening appears to be present raising the possibility of gastritis, please correlate clinically. Patient reassessed and feeling much better. Plan to treat for gastritis with PPI. I advised her to stop NSAID and discuss additional medication including probiotics with her primary care physician. All results discussed with the patient. She was encouraged to follow-up with her PCP and return immediately for any worsening or new concerning symptoms. Lab Data Lab results reviewed: Yes I reviewed the patient's lab results. HPI <Ree Chaparro DO - Last Filed: 06/30/21 04:05> General Mode of arrival: ambulatory . Date/Time Provider Initiated Documentation: 06/28/21 07:01 . Limitations to Documentation: no limitations . Information obtained by: patient . HPI Narrative: Thank you patient is a 60-year-old female with a history of irritable bowel syndrome depression, appendectomy, presents for 2 weeks of left-sided chest, left upper back and left-sided abdominal pain. Patient states she actually has had anterior chest pain for the past 2 years which she is being evaluated for with additional testing including a recent sleep study. She states for the past 2 weeks the chest pain has been worse and is now mainly on the left side. She states the pain feels like pressure chest pain feels like pressure. The left- sided abdominal pain feels crampy and like gas. She states she had 1 bout of diarrhea recently and has mainly been constipated for the past few days. She states her last bowel movement was 2 days ago and she had to remove it herself. She states she has chronic constipation with her irritable bowel syndrome and states she ran out of her probiotic 2 weeks ago which may have caused her constipation. She tried an enema at home without relief. She admits to nausea but denies any vomiting or fever. She denies any rectal bleeding. She also admits to left-sided upper back pain that is worse with head movement for the past 2 weeks. Related Data Home Medications Medication Instructions Recorded Confirmed Peppermint Oil 50 mg PO DAILY 11/01/17 06/28/21 L-5-Mthf 1 tab BID 01/25/18 06/28/21 Thryoid Support 2 cap BID 03/28/18 06/28/21 epinephrine [EpiPen 2-Amanuel] 0.3 mg IM PRN #1 u 07/18/18 06/28/21 acetylcysteine (bulk) See Rx Instructions MC .COMPLEX gm 01/16/19 06/28/21 valacyclovir 1 gram tablet 1,000 mg PO TID #21 tab 08/13/19 06/28/21 baclofen 5 mg tablet 5 mg PO BID PRN #30 tab 12/21/20 06/28/21 fluoxetine 20 mg capsule 60 mg PO DAILY #270 tab-cap 12/29/20 06/28/21 Lactobacillus acidophilus 10 See Rx Instructions .ROUTE 01/04/21 06/28/21 billion cell capsule .COMPLEX #90 cap Lactobacillus #2-Bifidobacter 3 cap PO DAILY #270 cap 01/17/21 06/28/21 #1-S. therm 112.5 billion cell capsule gabapentin 300 mg capsule 300 mg PO TID 02/01/21 06/28/21 naproxen sodium 220 mg tablet 220 mg PO BID PRN 02/01/21 06/28/21 fluticasone propionate 50 2 spray AMBROCIO DAILY #18.2 ml 05/03/21 06/28/21 mcg/actuation nasal spray,suspension glycerin (adult) 1 supp TX QD-BID PRN #12 ea 06/28/21 pantoprazole [Protonix] 40 mg PO DAILY #30 tab 06/28/21 Previous Rx's Medication Instructions Recorded epinephrine [EpiPen 2-Amanuel] 0.3 mg IM PRN #1 u 07/18/18 valacyclovir 1 gram tablet 1,000 mg PO TID #21 tab 08/13/19 baclofen 5 mg tablet 5 mg PO BID PRN #30 tab 12/21/20 fluoxetine 20 mg capsule 60 mg PO DAILY #270 tab-cap 12/29/20 Lactobacillus acidophilus 10 See Rx Instructions .ROUTE 01/04/21 billion cell capsule .COMPLEX #90 cap Lactobacillus #2-Bifidobacter 3 cap PO DAILY #270 cap 01/17/21 #1-S. therm 112.5 billion cell capsule fluticasone propionate 50 2 spray AMBROCIO DAILY #18.2 ml 05/03/21 mcg/actuation nasal spray,suspension glycerin (adult) 1 supp TX QD-BID PRN #12 ea 06/28/21 pantoprazole [Protonix] 40 mg PO DAILY #30 tab 06/28/21 Allergies Allergy/AdvReac Type Severity Reaction Status Date / Time bee pollen Allergy Unknown throat Verified 06/28/21 07:14 closes up wheat Allergy Unknown Skin Rash Verified 06/28/21 07:14 Tetracyclines Allergy Unverified 06/28/21 07:14 sugar Allergy Unknown Uncoded 06/28/21 07:14 General CHARLIE: 3 Review of Systems <Ree Chaparro DO - Last Filed: 06/30/21 04:05> All systems reviewed & are unremarkable except as noted in HPI and below Constitutional Constitutional: Reports as per HPI, Denies chills and Denies fever(s) Eyes Eyes: Denies blurry vision ENT Ears, Nose, Mouth, and Throat: Denies dizziness, Denies sore throat and Denies throat swelling Cardiovascular Cardiovascular: Denies chest pain and Denies dyspnea Respiratory Respiratory: Denies cough and Denies dyspnea Gastrointestinal Gastrointestinal: Reports abdominal pain, Reports constipation, Denies diarrhea, Reports nausea and Denies vomiting Genitourinary Genitourinary: Denies hematuria and Denies dysuria Musculoskeletal Musculoskeletal: Reports back pain and Denies numbness Integumentary/Breasts Skin/Breast: Denies lesions and Denies rash Neurologic Neurologic: Denies dizziness, Denies localized weakness and Denies numbness Allergic/Immunologic Allergic/Immunologic: Denies throat swelling PFSH <Ree Chaparro DO - Last Filed: 06/30/21 04:05> Medical History (Updated 06/28/21 @ 10:24 by Kike Magana MD) Degenerative disc disease, cervical Depression (11/08/16) Genital herpes Incontinence in female Kidney stone Pyelonephritis (10/13/15) Surgical History (Updated 12/21/20 @ 11:49 by April Cummins NP) Appendectomy (~1976) History of fusion of cervical spine Kidney Stone Extraction (10/11/15) Status post open reduction and internal fixation (ORIF) of fracture with nonunion (01/08/20) left leg [facility] [place] Social History Smoking/Tobacco Use Status: Never Smoking risk assessment performed?: Yes Alcohol Intake: never Drug use: Never Number of Children: 1 Seatbelt use: always 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 Working smoke detector in home: Yes Carbon monox detector in home: Yes Exam <DO Rahul Davis Last Filed: 06/30/21 04:05> Const General: cooperative and no acute distress [facility] Head: normal to inspection Face and sinus: normal facial exam Eyes General: appearance normal, both eyes and all related structures EOM: EOM intact bilaterally Neck Neck: normal visual inspection and No submandibular swelling Lymphatic: no lymphadenopathy noted Chest Chest: normal inspection of the chest and no tenderness Resp Effort & Inspection: normal respiratory effort and able to speak in complete sentences Auscultation: clear to auscultation bilaterally Cardio Rate: regular rate Rhythm: regular rhythm GI Inspection: normal to inspection Palpation: soft, not firm, not rigid and tender (minimal with deep palpation of LUQ/LLQ) Auscultation: normal bowel sounds Back/Spine/Pelvis Thoracic/Lumbar Spine: thoracic and lumbar spine normal to inspection, paraspinal tenderness (L thoracic), No thoracic spinal tenderness and other (Pain in L thoracic paraspinal region reproduced with head movement) Skin General skin exam: no rashes or lesions noted Neuro General: patient alert, patient awake and patient oriented x3 Cognition: normal cognition Speech: speech normal Motor: muscle tone normal throughout Sensory Exam: no sensory deficits noted Extrem General: normal to inspection, full ROM, capillary refill normal, no calf tenderness bilaterally and no edema Psych Appearance: grossly normal Mental Status: mental status grossly normal Speech and Movement: speech and movement normal Affect: normal affect Sign Out <Ree Chaparro DO - Last Filed: 06/30/21 04:05> Sign Out Data: Sign Out Comment: Follow-up on imaging and final disposition. If imaging negative and patient feels better, likely recommend suppositories, enema or magnesium citrate for home. Last updated by Ree Chaparro DO at 06/28/21 08:00
--- NOTE | 2021-06-28 07:30 | DI.CT_ITS ---
Exam(s) CT CHEST PE ABD PELVIS W EXAM: CT CHEST PE ABD PELVIS W TECHNIQUE: CT angiography of the chest, abdomen and pelvis was performed with bolus infusion of 100 cc of Omnipaque 350. Axial CT angiography was performed with multi-slice acquisition and multi-planar and/or 3D reconstruc tions. COMPARISON: CT ABD PELVIS WO CONTRAST from 06/15/2017 FINDINGS: The lungs are clear with mosaic attenuation noted, nonspecific.. No pleural effusion. No evidence o f pulmonary embolic disease. No thoracic aortic dissection or aneurysm. Major branches of the thoraci c aorta appear normal. No pleural effusion. No mediastinal or hilar adenopathy. Tracheobronchial cosme e appears intact. Note is made of possible gastric wall thickening/edema, the possibility of gastritis is raised. Plea se correlate clinically. No focal hepatic or renal abnormality seen apart from multiple hepatic and bilateral renal cysts.. G allbladder and bile ducts are CT normal. Pancreas is unremarkable. Spleen is unremarkable. No abdominal aortic aneurysm or dissection. Major branches of the abdominal aorta appear normal. No a bdominal or pelvic adenopathy. Appendix nonvisualized but no specific evidence of appendicitis.. No significant abdominal wall hernia. No focal bowel pathology. IMPRESSION: No evidence of pulmonary embolic disease. Gastric wall thickening appears to be present raising the possibility of gastritis, please correlate clinically. RADIATION DOSE DELIVERED: 891.69mGy.cm Total DLP 891.69mGy.cm Total DLP CTDIvol DATA REPOSITORY: All CT scans at this facility are submitted to the National Radiology Data Registry (NRDR) Dose Index Registry (DIR) with the [employer] (ACR). RADIATION OPTIMIZATION: All CT scans at this facility use at least one of these dose optimization te chniques: automated exposure control; mA and/or kV adjustment per patient size (includes targeted exa ms where dose is matched to clinical indication); or iterative reconstruction.
[2021-06-28 07:34] LABS: Abs Immature Grans 0.01 10^3/uL (0.0-0.06); Absolute Basophil Count 0.05 10^3/uL (0.0-0.2); Absolute Eosinophil Count 0.15 10^3/uL (0.0-0.7); Absolute Lymphocyte Count 1.91 10^3/uL (1.2-3.4); Absolute Monocyte Count 0.33 10^3/uL (0.1-0.8); Absolute Neutrophil Count 2.46 10^3/uL (1.2-6.7); Eosinophils % 3.1; HCT 36.9 % (36.0-46.0); HGB 12.5 g/dL (11.2-15.7); Immature Grans % 0.2; Lymphocytes % 38.9; MCH 31.3 pg (27.0-33.0); MCHC 33.9 % (32.0-36.0); MCV 92.3 fL (80-95); MPV 9.2 fL (8.0-11.0); Monocytes % 6.7; Neutrophils % 50.1; Nucleated RBC 0 %; Platelet Count 268 10^3/uL (130-400); RDW 13.3 % (11.7-14.6); RDW-SD 45.2 fL; WBC 4.91 10^3/uL (4.4-10.8)
[2021-06-28 07:42] LABS: ALT 39 U/L (14-59); AST 16 U/L (15-37); Albumin 3.9 g/dL (3.4-5.0); Alkaline Phosphatase 65 U/L (46-116); Anion Gap 5.8 mmol/L (3-11); BUN 11 mg/dL (7-18); Bilirubin, Total 0.6 mg/dL (0.2-1.0); CO2 30.2 mmol/L (21.0-32.0); CREATININE 0.7 mg/dL (0.55-1.02); Calcium 8.8 mg/dL (8.5-10.1); Chloride 101 mmol/L (98-107); Glucose 92 mg/dL (74-106); Magnesium 2.1 mg/dL (1.8-2.4); Sodium 137 mmol/L (136-145); Total Protein 6.5 g/dL (6.4-8.2); Troponin I < 0.05 ng/mL (<0.06)
[2021-06-28] MEDS: diazePAM 5 MG TAB PO (07:51)
[2021-06-28] MEDS: Ketorolac 30 MG/ML VIAL IVP (07:52)
[2021-06-28] MEDS: Ondansetron 4 MG/2 ML VIAL IVP (07:52)
[2021-06-28] MEDS: Omnipaque 350 MG/ML 100 ML BTL IJ (08:17)
[2021-06-28] MEDS: Normal Saline - Diluent 50 ML VIAL IV (08:17)
[2021-06-28] MEDS: Normal Saline Flush 10 ML SYR IVP (08:18)
[2021-06-28 08:24] LABS: Lipase 103 U/L (73-393)
[2021-06-28 09:29] LABS: Troponin I < 0.05 ng/mL (<0.06)
[2021-06-28] MEDS: Pantoprazole 40 MG TABCR PO (10:46)
== END 2021-06-28 11:05 | disposition home or self-care (01) ==
PROVIDERS: Physician Assistant; Emergency Provider Student in an Organized Health Care Education/Training Program; PCP Nurse Practitioner
DX: R07.9 Chest pain, unspecified (principal); M54.9 Dorsalgia, unspecified; R10.9 Unspecified abdominal pain; K59.00 Constipation, unspecified; K29.00 Acute gastritis without bleeding
CPT/HCPCS: 36415; 71275; 74177; 80053; 83690; 93005; 96374; 96375; 99285; 83735; 84484; 85025; 93010; 99284; J1885; J2405; J3490

== ENCOUNTER 2021-08-31 01:08 | Outpatient (CLI) | payer MEDICAID, SELFPAY ==
--- NOTE | 2021-08-31 08:00 | DI.MRI_ITS ---
Exam(s) MR THORACIC SPINE WO EXAM: MR THORACIC SPINE WO CLINICAL HISTORY: Chronic upper back pain, radiates to chest,m54.9. TECHNIQUE: Multiplanar multisequence MRI of the Thoracic spine was performed. COMPARISON: CR XR THORACIC SPINE COMPLETE from 12/21/2020 CR XR THORACIC SPINE COMPLETE from 12/21/[address] CHEST PE ABD PELVIS W from 06/28/[address] CHEST PE ABD PELVIS W from 06/28/2021 FINDINGS: Bones: The vertebral body heights are well maintained. Alignment is satisfactory. Degenerative endpla te signal changes are seen at multiple levels of the thoracic spine. Cord: The thoracic cord is normal size and signal intensity. No intrinsic cord lesion is present. Discs: There are mildly prominent disc bulges at multiple levels of the thoracic spine. No significa nt central spinal canal stenosis is seen in the thoracic spine. No neural foraminal stenosis is pres ent. Soft tissues: Hepatic cysts are again seen. IMPRESSION: Multilevel degenerative changes in the thoracic spine. No significant central spinal canal or neural foraminal stenosis is seen. DATA REPOSITORY:
== END 2021-08-31 01:28 ==
PROVIDERS: PCP Nurse Practitioner; Visit Provider Family Medicine
DX: M54.89 Other dorsalgia (principal); M51.34 Other intervertebral disc degeneration, thoracic region
CPT/HCPCS: 72146

== ENCOUNTER 2022-02-09 18:02 | Outpatient (REF) | payer MEDICAID, SELFPAY ==
--- NOTE | 2022-02-09 13:50 | PAPFT_PTH ---
PATIENT: Kalyn Bosch LOC: [facility] U#:[id number] AGE/SX: 61/F ROOM: RE02/09/[address]: April Cummins APRN : 1960 BED: DIS: 02/09/2022 SPEC #: [id number] RECD: 02/09/22 18:27 STATUS: ESVIN REQ #: [id number] INGRID: 02/09/22 13:[address]: April Cummins DEPT: [facility] Cytology RECD BY: Lori Bettencourt Tissues: 1 - CX/ENDOCX FOR PAP SMEARS Procedures: PAP THIN PREP/UVM Screening Comments: [id number] (UNSATISFACTORY FOR EVALUATION)
== END 2022-02-09 18:03 | disposition home or self-care (01) ==
LOC: LBN 18:02
PROVIDERS: PCP Nurse Practitioner; Visit Provider Nurse Practitioner
DX: Z12.4 Encounter for screening for malignant neoplasm of cervix (principal); R87.615 Unsatisfactory cytologic smear of cervix
CPT/HCPCS: 88142

== ENCOUNTER → 2022-02-14 17:35 | Outpatient (CLI) | payer MEDICAID, SELFPAY ==
--- NOTE | 2022-02-14 15:00 | DI.RAD_ITS ---
Exam(s) XR RIBS LT W PA LAT CHEST EXAM: XR RIBS LT W PA LAT CHEST CLINICAL HISTORY: rib pain on lt side, pleurodynia, R07.81, s/p 'bear hug', heard snap TECHNIQUE: 2D digital imaging was performed. PA and lateral chest and three views of the left ribs COMPARISON: CT CT CHEST PE ABD PELVIS W from 06/28/2021 FINDINGS: MEDIASTINUM: Normal. HEART: Normal. PULMONARY VASCULATURE: Normal. LUNGS: Clear. PLEURAL SPACE: No pleural effusion or pneumothorax. BONE:Mild degenerative changes in the thoracic spine. Mild degenerative changes the AC joints. Left RIBS: Normal. OTHER FINDINGS:Normal. IMPRESSION: 1. No acute pulmonary findings. 2. Unremarkable ribs. DATA REPOSITORY: RADIATION DOSE DELIVERED:
== END ==
PROVIDERS: PCP Nurse Practitioner; Visit Provider Nurse Practitioner
DX: R07.81 Pleurodynia (principal)
CPT/HCPCS: 71046; 71100

== ENCOUNTER 2022-02-15 02:22 | Outpatient (CLI) | payer MEDICAID, SELFPAY ==
--- OUTSIDE RECORDS SUMMARY | 2022-02-15 02:25 | XMS_ITS | Continuity of Care Document ---
:1960 Author Organization [facility] and [facility] Address Unavailable , Care Team Providers Name Role Phone April Cummins Tanvri Primary Care Physician Unavailable Encounter [facility] [id number] Date(s): 01/09/20 - 01/18/20 [facility] [address] [place] [address]- Encounter Diagnosis Postoperative anemia due to acute blood loss (Discharge Diagnosis) - 01/09/20 Anxiety (Discharge Diagnosis) - 01/09/20 Unspecified fracture of upper end of left tibia, subsequent encounter for closed fracture with routine healing (Final) - Acute posthemorrhagic anemia (Final) - Sprain of anterior cruciate ligament of left knee, subsequent encounter (Final) - Anxiety disorder, unspecified (Final) - Constipation, unspecified (Final) - Fall from snow-skis, subsequent encounter (Final) - Syncope and collapse (Final) - Unspecified convulsions (Final) - Displaced fracture of lateral condyle of left tibia, initial encounter for closed fracture (Discharge Diagnosis) - 01/09/20 Sprain of anterior cruciate ligament of left knee, initial encounter (Discharge Diagnosis) - 01/09/20 Discharge Disposition: Home Care with Home Health Attending Physician: CRISTAL HERRERA Admitting Physician: CRISTAL HERRERA Allergies, Adverse Reactions, Alerts Substance Reaction Severity Status senna Mild Active Assessment and Plan Extracted from: Title: Discharge Note Author: Nav Clemons Date: 01/18/20 Discharge Plan ?? New Medications: 1) Hydromorphone 2 mg every 6 hours as n eeded for pain 2) Gabapentin 30 mg TID 3) Lovenox 30 mg BID until 02/07/20 4) Cyclobenzaprine 10 mg TID as needed f or muscle spasm ? acetylcysteine: Oral, Daily, 0 Refi ll(s), Refills: 0 ? bifidobacterium/lactobacillus/strep tococcus: 1 packet, Oral, Daily, 30 packet(s), 3 Refill(s), Refills: 3 ? ciclesonide nasal: 2 spray(s), Nasa l, BID, 12.5 gm, 0 Refill(s), Refills: 0 ? cyclobenzaprine: 10 mg = 1 tab(s), Oral, TID, PRN: Spasm, 30 tab(s), 0 Refill(s), Refills: 0 ? enoxaparin: 30 mg = 0.3 mL, Subcuta neous, BID, Post op orthopedic surgery, last day 02/07/20, 41 EA, 0 Refill(s), Refills: 0 ? fluoxetine: 20 mg = 1 cap(s), Oral, TID, 0 Refill(s), Refills: 0 ? gabapentin: 300 mg = 1 cap(s), Oral , TID, 180 cap(s), 0 Refill(s), Refills: 0 ? HYDROmorphone: 2 mg = 1 tab(s), Ora l, q6hr, PRN: Pain, 30 tab(s), 0 Refill(s), Refills: 0 ? ibuprofen: 400 mg = 2 tab(s), Oral, q6hr, Pain or Headache, PRN: Other (see comment), 0 Refill(s), Refills: 0 ? iodine: 2.5 mg, Oral, Daily, 0 Refi ll(s), Refills: 0 ? Non Formulary: See Instructions, Ap ply topically, 0 Refill(s), Refills: 0 ? omega-3 polyunsaturated fatty acids : Oral, 0 Refill(s), Refills: 0 ? pyridoxine: Daily, 0 Refill(s), Ref ills: 0 ?? 1.??Tibia fracture??S82.209A 2.??Postoperative anemia due to acute b lood loss??D62 3.??Anxiety??F41.9 4.??ACL tear??S83.519A 5.??Constipation??K59.00 Patient Discharge Condition Stable Discharge Disposition Home with visiting nurses ?? More than 30 minutes spent on discharge planning and preparation. ?? Follow Up With When Contact Information [facility] Catalina tology 01/27/2020 02:00 PM JOE [facility] [place] [address]- Business (1) Additional Instructions: Arrive to [address], reception clerk [address] [place] [address] for your appointment with Dr. Juan F Cummins 01/26/2020 10:00 AM EST [facility] , Fx: [phone] Additional Instructions: Follow up your hospital stay with your primary care provider. [facility] 01/23/2020 10:20 AM [facility] [address]- Business (1) Additional Instructions: Arrive to retail center receptionist tion 3C at 9:50 for your follow up with Dr. Still. [facility] Rad[facility] 01/23/2020 09:50 AM EST Additional Instructions: Arrive to retail center receptionist tion 3T at 9:45 for your X-Rays Functional Status 01/18/20 History of Fall in Last 3 Months [place] Yes Mobility Kedar Very limited Ambulatory Devices Walker, Wheelchair Medications Spreckels Oil Spreckels Oil, See Instructions, Apply topically, 0 Refill(s) Start Date: 01/18/20 Status: Orderedciclesonide 50 mcg/inh nasal spray 2 spray(s), Nasal, BID, # 12.5 gm, 0 Refill(s) Start Date: 01/09/20 Status: Orderedcyclobenzaprine 10 mg oral tablet 10 mg = 1 tab(s), Oral, TID, PRN PRN Spasm, # 30 tab(s), 0 Refill(s), 01/20/20, Pharmacy: [facility], 1 tab(s) Oral TID,PRN:Spasm Start Date: 01/18/20 Stop Date: 01/20/20 Status: Orderedenoxaparin 30 mg/0.3 mL injectable solution 30 mg = 0.3 mL, Subcutaneous, BID, Post op orthopedic surgery, last day 02/07/20, # 41 EA, 0 Refill(s), 02/07/20, Pharmacy: [facility], 0.3 mL Subcutaneous BID,Instr:Post op orthopedic surgery, last day 02/07/20 Start Date: 01/18/20 Stop Date: 02/07/20 Status: OrderedFish Oil Oral, 0 Refill(s) Start Date: 01/18/20 Status: OrderedFLUoxetine 20 mg oral capsule 20 mg = 1 cap(s), Oral, TID, 0 Refill(s) Start Date: 01/18/20 Status: Orderedgabapentin 300 mg oral capsule 300 mg = 1 cap(s), Oral, TID, # 180 cap(s), 0 Refill(s), Pharmacy: [facility], 1 cap(s) Oral TID Start Date: 01/18/20 Status: OrderedHYDROmorphone 2 mg oral tablet 2 mg = 1 tab(s), Oral, q6hr, PRN PRN Pain, # 30 tab(s), 0 Refill(s), 01/28/20, Pharmacy: [facility], 1 tab(s) Oral q6hr,PRN:Pain Start Date: 01/18/20 Stop Date: 01/28/20 Status: Orderedibuprofen 200 mg oral tablet 400 mg = 2 tab(s), Oral, q6hr, PRN PRN Other (see comment), Pain or Headache, 0 Refill(s) Start Date: 01/18/20 Status: Orderediodine 2.5 mg, Oral, Daily, 0 Refill(s) Start Date: 01/09/20 Status: OrderedNAC Oral, Daily, 0 Refill(s) Start Date: 01/18/20 Status: OrderedVitamin B6 Daily, 0 Refill(s) Start Date: 01/18/20 Status: OrderedVSL#3 oral powder for reconstitution 1 packet, Oral, Daily, # 30 packet(s), 3 Refill(s) Start Date: 01/18/20 Status: Ordered Mental Status 01/18/20 Sensory Perception Kedar Slightly limited Level of Consciousness Alert Problem List Condition Effective Dates Status Health Status Informant Anxiety(Confirmed) Active Chronic diarrhea(Confirmed) Active Danny's disease(Confirmed) Active Renal stone(Confirmed) Active Procedures Procedure Date Related Diagnosis Body Site Status open reduction internal fixation Right tib 2008 Completed with bone graft C4- C6 fusion Completed Results Laboratory List Name Date Hemoglobin DH 01/13/20 .Hemogram DH (CBC DH) 01/10/20 Basic Metabolic Panel DH 01/10/20 Lactate DH 01/10/20 .Hemogram DH (CBC DH) 01/09/20 CMP DH 01/09/20 Lactate DH 01/09/20 Glucose POC1 01/09/20 .Hemogram DH (CBC DH) 01/09/20 Most recent to oldest 1 2 3 [Reference Range]: Albumin Lvl DH [3.2-5.2 3.5 gm/dL gm/dL] (01/09/20 11:02 PM) Alk Phos DH [40-104 unit/L] 41 unit/L (01/09/20 11:02 PM) ALT DH [0-30 unit/L] 11 unit/L (01/09/20 11:02 PM) Anion Gap DH [5-15 mmol/L] 9 mmol/L 14 mmol/L (01/10/20 5:30 AM) (01/09/20 11:02 PM) AST DH [0-30 unit/L] 26 unit/L (01/09/20 11: PM) Bili Total DH [0.2-1.3 0.7 mg/dL mg/dL] (01/09/20 11:02 PM) Chloride Lvl DH [98-107 103 mmol/L 100 mmol/L mmol/L] (01/10/20 5:30 AM) (01/09/20 11:02 PM) CO2 DH [22-31 mmol/L] 28 mmol/L 24 mmol/L (01/10/20 5:30 AM) (01/09/20 11:02 PM) Est GFR DH [>=60] 95 1 92 2 (01/10/20 5:30 AM) (01/09/20 11:02 PM) Glucose Lvl DH [65-99 108 mg/dL 150 mg/dL mg/dL] *HI* *HI* (01/10/20 5:30 AM) (01/09/20 11:02 PM) Potassium Lvl DH [3.5-5.0 4.3 mmol/L 4.0 mmol/L mmol/L] (01/10/20 5:30 AM) (01/09/20 11:02 PM) Sodium Lvl DH [135-145 140 mmol/L 137 mmol/L mmol/L] (01/10/20 5:30 AM) (01/09/20 11:02 PM) Total Protein DH [6.1-8.0 6.1 gm/dL gm/dL] (01/09/20 11:02 PM) BUN DH [8-18 mg/dL] 8 mg/dL 8 mg/dL (01/10/20 5:30 AM) (01/09/20 11:02 PM) Calcium Lvl DH [8.5-10.5 8.9 mg/dL 9.0 mg/dL mg/dL] (01/10/20 5:30 AM) (01/09/20 11:02 PM) Lactic Acid Lvl DH [0.5-2.2 0.5 mmol/L 3 2.5 mmol/L mmol/L] (01/10/20 5:30 AM) *HI* (01/09/20 11:02 PM) Creatinine [0.70-1.20 .67 mg/dL .71 mg/dL mg/dL] *LOW* (01/09/20 11:02 PM) (01/10/20 5:30 AM) GFR - DH 110 4 107 5 [>=60] (01/10/20 5:30 AM) (01/09/20 11:02 PM) Glucose POC [<=600 mg/dL] 154 mg/dL (01/09/20 10:57 PM) Hct DH [35.7-45.8 %] 25.3 % 26.8 % 25.7 % *LOW* *LOW* *LOW* (01/10/20 5:30 AM) (01/09/20 11:02 PM) (01/09/20 6: 10 PM) Hgb DH [11.7-15.5 gm/dL] 8.1 gm/dL 8.4 gm/dL 9.1 gm/ dL *LOW* *LOW* *LOW* (01/13/20 5:32 AM) (01/10/20 5:30 AM) (01/09/20 11: 02 PM) MCHC DH [31.7-35.0 pg] 33.2 pg 34.0 pg 33.5 pg (01/10/20 5:30 AM) (01/09/20 11:02 PM) (01/09/20 6: 10 PM) MCH DH [27.1-32.0 pg] 31.8 pg 32.0 pg 32.0 pg (01/10/20 5:30 AM) (01/09/20 11:02 PM) (01/09/20 6: 10 PM) MCV DH [82.6-94.4 fL] 95.8 fL 94.4 fL 95.5 fL *HI* (01/09/20 11:02 PM) *HI* (01/10/20 5:30 AM) (01/09/20 6:10 PM) MPV DH [7.6-12.9 fL] 9.9 fL 10.3 fL 10.2 fL (01/10/20 5:30 AM) (01/09/20 11:02 PM) (01/09/20 6: 10 PM) Platelet DH [145-357 169 x10(3)/mcL 211 x10(3)/mcL 145 x10(3)/ mcL x10(3)/mcL] (01/10/20 5:30 AM) (01/09/20 11:02 PM) (01/09/20 6: 10 PM) RBC DH [4.00-5.21 2.64 x10(6)/mcL 2.84 x10(6)/mcL 2.69 x10(6)/mc L x10(6)/mcL] *LOW* *LOW* *LOW* (01/10/20 5:30 AM) (01/09/20 11:02 PM) (01/09/20 6: 10 PM) RDWCV DH [11.5-14.1 13.2 x10(6)/mcL 13.0 x10(6)/mcL 13.2 x10(6)/ mcL x10(6)/mcL] (01/10/20 5:30 AM) (01/09/20 11:02 PM) (01/09/20 6: 10 PM) RDWSD DH [37.0-46.0 fL] 46.3 fL 45.3 fL 46.4 fL *HI* (01/09/20 11:02 PM) *HI* (01/10/20 5:30 AM) (01/09/20 6:10 PM) WBC DH [4.0-9.5 x10(3)/mcL] 6.4 x10(3)/mcL 8.4 x10(3)/mcL 5.5 x10(3)/mcL (01/10/20 5:30 AM) (01/09/20 11:02 PM) (01/09/20 6: 10 PM) Blood Glucose, Capillary 154 mg/dL POC [74-118 mg/dL] *HI* (01/09/20 10:57 PM) 1Result Comment: The eGFR was calculated using the CKD-EPI equation. As with all creatinine based estimates of kidney function, eGFR values calculated with the CKD-EPI equation are not accurate in patients with acute kidney failure, extremes of body mass or the acutely ill. http://[email or web address] Comment: The eGFR was calculated using the CKD-EPI equation. As with all creatinine based estimates of kidney function, eGFR values calculated with the CKD-EPI equation are not accurate in patients with acute kidney failure, extremes of body mass or the acutely ill. http://[employer]/[email or web address] Comment: result confirmed by [email or web address] Comment: The eGFR was calculated using the CKD-EPI equation. As with all creatinine based estimates of kidney function, eGFR values calculated with the CKD-EPI equation are not accurate in patients with acute kidney failure, extremes of body mass or the acutely ill. http://[employer]/[email or web address] Comment: The eGFR was calculated using the CKD-EPI equation. As with all creatinine based estimates of kidney function, eGFR values calculated with the CKD-EPI equation are not accurate in patients with acute kidney failure, extremes of body mass or the acutely ill. http://[employer]/[facility] Reports true Exam Date Time Procedure Performing Provider Status 01/09/20 11:[address] Head or Brain w/o Contrast NEGRITO IVAN; Modified Notes:(CT Head or Brain w/o Contrast) Reason For Exam: ?seizureCT HEAD OR BRAIN W/O CONTRAST EXAMINATION: CT HEAD OR BRAIN W/O CONTRAST CLINICAL HISTORY: ?seizure TECHNIQUE: CT head performed without intravenous contrast administration. COMPARISON: CT head dated 01/06/2020 FINDINGS: Bassett-white interface appears relatively well differentiated. No acute intracranial hemorrhage identified. No significant mass effect appreciated. Included paranasal sinuses appear well aerated. Included mastoid air cells appear well-aerated. Calvarium appears intact. IMPRESSION: No acute intracranial hemorrhage or mass effect identified. Preliminary report signed by: Melody Sabillon at 01/10/2020 12:19 AM I have personally reviewed the image(s) and the resident's interpretation and agree with the findings, Luis Ricardo at 01/10/2020 2:00 AM Thank you for letting us participate in the care of this patient. For questions regarding this report, please contact the number below. Final Dictated: 01/10/2020 2:05 am Luis Ricardo M.D. Signed (Electronic Signature): 01/10/2020 2:00 am Signed by: Luis Ricardo M.D. Transcribed by: [facility] Vital Signs Most recent to oldest 1 2 3 [Reference Range]: Temperature Oral 36.8 DegC 36.7 DegC 36.8 DegC [35.8-37.3 DegC] (01/18/20 7:56 AM) (01/17/20 8:44 PM) (01/17/20 7: 42 AM) Temperature Oral (DegF) 98.06 DegF 98.78 DegF 97.52 De gF (01/17/20 8:44 PM) (01/16/20 8:30 PM) (01/16/20 7:5 7 AM) Apical Heart Rate [60-100 72 bpm 75 bpm 76 bpm bpm] (01/17/20 7:43 AM) (01/14/20 2:05 PM) (01/13/20 8:5 6 PM) Peripheral Pulse Rate 65 bpm 71 bpm 74 bpm [60-100 bpm] (01/18/20 7:57 AM) (01/17/20 7:43 AM) (01/16/20 8:3 1 PM) Heart Rate Monitored 64 bpm [60-100 bpm] (01/17/20 8:44 PM) Respiratory Rate [14-20 16 br/min 18 br/min 16 br/mi n br/min] (01/18/20 7:57 AM) (01/17/20 8:44 PM) (01/17/20 7:4 3 AM) Blood Pressure 105/65 mmHg 110/65 mmHg [90-140/60-90 mmHg] (01/18/20 7:56 AM) (01/17/20 8:44 PM) Systolic Blood Pressure 115 mmHg [90-140 mmHg] (01/17/20 7:41 AM) Diastolic Blood Pressure 55 mmHg [60-90 mmHg] *LOW* (01/17/20 7:41 AM) Mean Arterial Pressure, 78 mmHg 80 mmHg 75 mmHg Cuff (01/18/20 7:56 AM) (01/17/20 8:44 PM) (01/17/20 7:4 1 AM) BP Site Left arm Left arm Left arm (01/16/20 8:30 PM) (01/15/20 8:29 PM) (01/14/20 8:4 4 PM) Patient Position BP Supine Supine Supine (01/17/20 8:44 PM) (01/16/20 8:30 PM) (01/15/20 8:2 9 PM) SpO2 [92-100 %] 96 % 98 % 98 % (01/18/20 7:57 AM) (01/17/20 8:44 PM) (01/17/20 7:4 3 AM) Height 167.64 cm (01/12/20 1:24 PM) Height/Length Dosing 167 cm (01/09/20 6:22 PM) Weight 58.0 kg 58.1 kg 57.9 kg (01/17/20 5:03 AM) (01/16/20 5:18 AM) (01/15/20 4:4 6 AM) Weight Measured (lbs) 124.96 lb (01/09/20 6:22 PM) Weight Dosing 56.8 kg (01/09/20 6:22 PM) Usual Weight 56.36 kg (01/12/20 1:24 PM) Body Mass Index Measured 22.06 kg/m2 (01/12/20 1:24 PM) Measurement Comments Left upper thigh measured 56cm Left thi gh measured for 59cm and marked. (01/14/20 12:00 AM) (01/13/20 12:02 AM) Social History Social History Type Response Smoking Status Never (less than 100 in life time) entered on: 01/09/20 Sex Hospital Discharge Instructions Patient Enqjmmtju50/23/2020 11:05:13Instructions - Orthopedic Surgery (YSABEL)Instructions after your Orthopedic surgery: New Medications: 1) Hydromorphone 2 mg every 6 hours as needed for pain - try to extend the frequency to every 8-12 hours as tolerated 2) Gabapentin 300 mg three times a day 3) Cyclobenzaprine (Flexiril) 10 mg three times a day as needed for muscle spasm 4) Lovenox 30 mg twice daily - last day 02/07/20 Diet: Regular Activity: Nonweightbearing left leg. Left leg in brace at all times - can remove for hygeine and cleaning. Allowed to have ROM with brace on. Activity restrictions: Non weightbearing left leg. Do not drive unless you are off your narcotic pain medication and/or cleared by your surgeon. Dressing: Mepilex over left ex fix wounds (due to occasional drainage), change every 3 days, or if soaked through Showering: Do not submerge the incision. Sutures/Everest: Stay in place until follow up with orthopedic surgeon. To prevent clotting after surgery: Take: Enoxaparin (Lovenox) 30 mg twice daily End date: 02/07/20 Call your healthcare provider or surgeon if: If you develop a persistent fever >100.5F and increasing redness/drainage/swelling over your joint or surgical incision. 01/18/2020 11:05:13Hospitalist Services Upon Discharge (CARRIE STEPHENSON) (CUSTOM) Services Upon Discharge Patient is being discharged home with these services in place: HOME SERVICES: Home Services Discharge - Arrangements and orders for follow-up care Service Provider: [facility] Contact Service(s) to be Provided: physical therapy, occupational therapy, home health aide, nurse Frequency: Additional Comments: Request start date 01/19/2020 Date of the face to face encounter: 01/18/20 This visit was related to s/p orif left tib fx for which the patient needs skilled home health services.?? My clinical findings support the need for skilled: Occupational Therapy- 2x weekly for progression of independence with IADLs Physical Therapy- 2x weekly for strengthening, stretching, endurance, balance and functional independence Nursing- CV and pulmonary assessment, dressing care and monitoring Home Health Aide- 2x weekly for showering r/t impaired weakness and immobility, promote ADL independence Dressing: Mepilex over left ex fix wounds (due to occasional drainage), change every 3 days, or if soaked through The patient is homebound and requires considerable and taxing effort to leave their residence secondary to use of assistive device to ambulate and needing assist of one to leave home. To all home service providers, please contact the patient???s Primary Care Provider - Dr. April Cummins - with all follow up regarding your services. Reviewed and Electronically Signed By: Nav Clemons MD Date: 01/18/20 Follow Up Care01/09/2020 15:50:45With:[facility] Address[facility] [place] [place] [address]- Business (1) When:01/27/2020 14:00:00 Comments:[facility] reception [address] for your appointment with Dr. RogelWith:[facility] Address:Unknown When:01/23/2020 09:50:00 Comments:Arrive to reception clerk at 9:45 for your X-RaysWith:[facility] Address: [facility] [place] [address]- Business (1) When:01/23/2020 10:20:00 Comments:Arrive to reception clerk 3C at 9:50 for your follow up with Dr. Still.With: April Cummins Address: [facility] , Fx: [phone] When:01/26/2020 10:00:00 Comments:Follow up your hospital stay with your primary care provider.
--- OUTSIDE RECORDS SUMMARY | 2022-02-15 02:25 | XMS_ITS | Encounter Summary ---
:1960 Author Organization [place] [address] Care Team Providers Name Role Phone April Cummins APRN Primary Care Provider Encounter Details Date Type Department Care Team Description 07/27/2021 Hospital [place] [address] Social History Tobacco Use Types Packs/Day Years Used Date Never Smoker Smokeless Tobacco: Never Used Comments: Exposure to smoking in the [place] until the age of 16 Alcohol Use Standard Drinks/Week Comments No 0 (1 standard drink = 0.6 oz pure alcoho l) Sex Assigned at Date Recorded Not on file documented as of this encounter Medications at Time of Discharge Medication Sig Dispensed Refills Start Date End Date GLYCERIN, ADULT, RECT Place rectally. 0 06/28/20 21 Lactobacil Take 3 capsules by 0 01/17/2021 2-S.thermo-Bifido 1 mouth. (LACTOBAC #2-BIFIDO #1-S. THERM ORAL) fluticasone propionate by Nasal route. 0 05/03/20 21 (Flonase) 50 mcg/actuation [place], Suspension pantoprazole EC Take by mouth. 0 06/28/2021 (Protonix) 40 mg Tablet, Delayed Release (E.C.) EPINEPHrine 0.3 mg/0.3 Inject 0.3 mLs into 1 kit 3 11/2020 mL Auto-Injector the muscle once as needed (allergic reaction ( tight throat, difficulty breathing, lightheaded)). ferrous bis-glycinate by Mis.(Non-Drug; 0 chelate (iron bisglycin Combo Route) route. chelate, bulk,) Powder Thyroid, Pork, ([place] Take 45 mg by mouth 0 Thyroid) 15 mg Tablet daily. castor oil Oil 0 01/18/2020 [place] Oil, See Instructions, Apply topically, 0 Refill(s) pyridoxine, vitamin B6, 0 01/18/2020 (B-6) 100 mg Tablet Daily, 0 Refill(s) polyethylene glycol Take 17 g by mouth 2 14 each 0 2019 (Miralax) 17 gram Powder times daily. in Packet Ciclesonide (OMNARIS) 50 INSTILL TWO SPRAYS 12.5 g 0 mcg [place], Non-Aerosol IN EACH NOSTRIL TWICE A DAY [id number] Take 3 capsules by 90 capsule 3 02/2019 therm. (VISBIOME) 112.5 mouth daily. billion cell CapsuleIndications: Small intestinal bacterial overgrowth, Irritable bowel syndrome with diarrhea b complex vitamins Take 1 capsule by mouth daily. With 0 Capsule folic acid B-1,2,3,5,12 Biotin acetylcysteine (NAC Take by mouth. 0 ORAL) GLUTATHIONE ORAL Take by mouth 0 daily. IODINE ORAL Take 2.5 mg by mouth 0 daily. FLUoxetine (PROZAC) 10 Take 10 mg by mouth 0 mg Tablet 3 times daily. naproxen sodium (ALEVE) Take by mouth. 0 01/27/2022 220 mg Capsule omega 2-tny-klc-fish oil Take by mouth. 0 201901/27/2022 (Fish Oil) 100-160-1,000 mg Capsule oxyCODONE (Roxicodone) 5 Take 1 tablet by 24 tablet 0 01/2701/27/2022 mg TabletIndications: mouth every 6 hours Closed displaced as needed for Pain. comminuted fracture of shaft of left tibia with routine healing, subsequent encounter ibuprofen (Advil;Motrin) Take 200 mg by mouth 0 01/27/2022 200 mg Tablet every 6 hours as needed for Pain. acetaminophen (Tylenol) Take 2 tablets by 90 tablet 1 01/0901/27/2022 500 mg Tablet mouth every 6 hours. gabapentin (Neurontin) Take 1 capsule by 60 capsule 0 201901/27/2022 300 mg Capsule mouth 3 times daily. HYDROmorphone (Dilaudid) Take 1-2 tablets by 40 tablet 0 01/27/2022 2 mg Tablet mouth every 4 hours as needed for Pain (1 tab for moderate pain (4-6) or 2 tabs for severe pain (7-10)). senna-docusate Take 2 tablets by 60 tablet 0 01/09/202002/2022 (Pericolace) 8.6-50 mg mouth 2 times daily. Tablet documented as of this encounter Plan of Treatment Upcoming Encounters Date Type Specialty Care Team Description 04/03/2022 TH Visit (TeleHealth) Neurology Pippa Jc MD [facility] Medical [facility] Dr Zhang [place] 0375 (Wo rk) Scheduled Procedures Name Priority Associated Diagnoses Date/Time COLONOSCOPY, DIAGNOSTIC Encounter for colorectal cancer screening documented as of this encounter Visit Diagnoses Not on filedocumented in this encounter Care Teams Technical Aid Relationship Specialty Start Date End Date April Cummins APRN PCP - General Internal Medicine 01/13/[address] [place] [address] documented as of this encounter
--- OUTSIDE RECORDS SUMMARY | 2022-02-15 02:25 | XMS_ITS ---
:1960 External Reference #:[id number] Author Care Team Providers Name Role Phone Connie Gayle Primary Care Provider Unavailable Allergies Code Code System Name Reaction Severity Status Onset Wheat Arthralgia Moderate to Active 999 Containing Prod (Joint Pain) Severe ? Diarrhea Moderate to Active ? Severe ? Rash Moderate to Active ? Severe Medications None recorded. Problems None recorded. Procedures Date Name Performed by ? 06/26/2007 Neurosurgery Information not avai lable 06/26/2007 Orthopedic Surgery Information not avai lable 10/26/2006 Orthopedic Surgery Information not avai lable 08/26/1995 Caesarean Section Information not avai lable 07/27/1978 Appendectomy Information not avai lable Results Lab Results None recorded. Past Encounters None recorded. Social History Tobacco Smoking Status Never Smoker Vaccine List Vaccine Type polio, unspecified formulation 04/26/1963 Plan of Care Reminders Provider Appointments None ? ? recorded. Lab None ? ? recorded. Referral None ? ? recorded. Procedures None ? ? recorded. Surgeries None ? ? recorded. Imaging None ? ? recorded. Vitals Weight 109 lbs 16 oz
--- OUTSIDE RECORDS SUMMARY | 2022-02-15 02:25 | XMS_ITS | Clinical Summary ---
:1960 Author Organization [place] [place] [address] Care Team Providers Name Role Phone April Cummins APRN Primary Care Provider Allergies Active Allergy Reactions Severity Noted Date Comments Bee Pollen 12/21/2020 Other reaction( s): throat closes up Folic Acid 02/01/2021 Milk Diarrhea 03/06/2019 Senna 05/21/2020 Dextrose 06/28/2021 Tetracycline Nausea Only 04/17/2019 Wheat Other (See Comments) 11/23/2017 Gastroi ntestinal distress Medications Medication Sig Dispensed Refills Start Date End Date Status FLUoxetine (PROZAC) 10 Take 10 mg by 0 Active mg Tablet mouth 3 times daily. b complex vitamins Take 1 capsule by mouth daily. With 0 Active Capsule folic acid B-1,2,3,5,12 Biotin acetylcysteine (NAC Take by mouth. 0 Active ORAL) GLUTATHIONE ORAL Take by mouth 0 Active daily. IODINE ORAL Take 2.5 mg by 0 Act ruth mouth daily. [id number] Take 3 capsules 90 capsule 3 9 Active therm. (VISBIOME) 112.5 by mouth daily. billion cell CapsuleIndications: Small intestinal bacterial overgrowth, Irritable bowel syndrome with diarrhea Additional Information Patient not taking. Reported on 01/27/2022 Ciclesonide (OMNARIS) 50 mcg INSTILL TWO SPRAYS IN EACH 12.5 g 0 09/08/2019 Active [place], Non-Aerosol NOSTRIL TWICE A DAY Additional Information Patient not taking. Reported on 01/27/2022 polyethylene glycol (Miralax) Take 17 g by mouth 2 14 each 0 01/09/2020 Active 17 gram Powder in Packet times daily. Additional Information Patient not taking. Reported on 01/27/2022 castor oil Oil 0 01/18/2020 Acti ve [place] Oil, See Instructions, Apply topically, 0 Refill(s) pyridoxine, vitamin B6, 0 01/18/2020 Active (B-6) 100 mg Tablet Daily, 0 Refill(s) ferrous bis-glycinate by Misc.(Non-Drug; Combo 0 Active chelate (iron bisglycin Route) route. chelate, bulk,) Powder Thyroid, Pork, ([place] Take 45 mg by mouth 0 Active Thyroid) 15 mg Tablet daily. GLYCERIN, ADULT, RECT Place rectally. 0 06/28/2021 Active Lactobacil Take 3 capsules by 0 01/17/2021 Active 2-S.thermo-Bifido 1 mouth. (LACTOBAC #2-BIFIDO #1-S. THERM ORAL) fluticasone propionate by Nasal route. 0 05/03/2021 Active (Flonase) 50 mcg/actuation [place], Suspension pantoprazole EC (Protonix) Take by mouth. 0 021 Active 40 mg Tablet, Delayed Release (E.C.) EPINEPHrine 0.3 mg/0.3 mL Inject 0.3 mLs into the 1 kit 3 07/27/2021 Active Auto-Injector muscle once as needed (allergic reaction ( tight throat, difficulty breathing, lightheaded)). amino acids/protein Take by mouth. 0 Active supplement (AMINO ACIDS ORAL) HYDROCHLORIC ACID, BULK, by Misc.(Non-Drug; Combo 0 Active MISC Route) route. Vitamin B Complex-Vitamin Take 1 capsule by mouth 0 Active C-Folic Acid (Nephrocap) 1 daily. mg Capsule nutritional Take by mouth. 0 Ac tive supplement/fiber (PEPTIDE 1.0 ORAL) UNABLE TO FIND bio botanical 0 A ctive enzymes,digestive Take by mouth. 0 Active (DIGESTIVE ENZYMES ORAL) gabapentin (Neurontin) 100 100 mg AM, 200 mg HS 90 capsule 12 0 01/31/2022 Active mg Capsule cyclobenzaprine (Flexeril) Take 1 tablet by mouth 30 tablet 0 01/31/2022 Active 5 mg Tablet nightly. 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 Lower urinary tract symptoms (LUTS) 12/04/2018 History of nephrolithiasis 12/04/2018 Renal cyst, acquired 12/04/2018 NELSON (stress urinary incontinence, female) 12/04/2018 Cystocele, midline 12/04/2018 Disorder of muscle, ligament, and fascia 03/01/2018 Pelvic floor dysfunction 03/01/2018 Chronic constipation 03/01/2018 Mixed stress and urge urinary incontinence 03/01/2018 DJD (degenerative joint disease) of cervical spine Left ulnar fracture 02/16/2016 Encounters Date Type Specialty Care Team Description 01/31/2022 Office Visit Neurology Jed Jc MD Headache, c ervicogenic; Injury of cervi vanessa spinal cord, subsequent encounter 01/31/2022 Orders Only Gastroenterology Beth Guerra Nausea and vomiting, E, [employer]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 intractability of vomiting not specified, unsp ecified vomiting type 01/30/2022 Telephone Gastroenterology Lisa Castillo 01/30/2022 Telephone Gastroenterology Suzan Taylor CMA 01/27/2022 TH Visit Gastroenterology Beth Guerra for colorectal cancer screening; (TeleHealth) E, [employer] DES[employer]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 Irritable bowel syndrome with diarrhea; Small intestina l bacterial overgrowth from Last 3 Months Family History Medical History Relation Comments Chronic Obstructive Pulmonary Disease Father Allergic Rhinitis Mother Asthma Mother Cancer Mother Chronic Obstructive Pulmonary Disease Mother Food Allergy Other Relation Status Comments Father Mother Other Social History Tobacco Use Types Packs/Day Years Used Date Never Smoker Smokeless Tobacco: Never Used Comments: Exposure to smoking in the [place] until the age of 16 Alcohol Use Standard Drinks/Week Comments No 0 (1 standard drink = 0.6 oz pure alcoho l) Sex Assigned at Date Recorded Not on file Last Filed Vital Signs Vital Sign Reading Time Taken Comments Blood Pressure 120/74 07/27/2021 1:01 PM EDT Pulse 60 07/27/2021 1:01 PM EDT Temperature 36.9 ??C (98.4 ??F) 01/09/2020 1:14 PM EST Respiratory Rate 18 01/09/2020 1:14 PM EST Oxygen Saturation 99% 07/27/2021 1:01 PM EDT Inhaled Oxygen Concentration - - Weight 56.7 kg (125 lb) 02/24/2021 10:08 AM EDT Height 167.6 cm (5' 6) 02/24/2021 10:08 AM EDT Body Mass Index 20.18 02/24/2021 10:08 AM EDT Plan of Treatment Upcoming Encounters Date Type Specialty Care Team Description 04/03/2022 TH Visit (TeleHealth) Neurology Pippa Jc MD [facility] [address] [place], [place] [address] (Wo rk) Scheduled Procedures Name Priority Associated Diagnoses Date/Time COLONOSCOPY, DIAGNOSTIC Encounter for colorectal cancer screening Health Maintenance Due Date Last Done Comments Covid-19 Vaccine (1) 1963 HIV screen 1976 Hepatitis C Screening 1976 Tdap adult 1977 Tetanus vaccine 1977 HPV test 1988 PAP Smear 1988 Breast Cancer Share Decision Needed 1998 Colonoscopy 2003 Breast Cancer screening 2008 Zoster vaccine (1 of 2) 2008 Advance Directive 2013 Influenza (Flu) vaccine (1 of 1 - Influenza standard 07/27/2021 series) Medical Devices Implanted Type Area Die Barber Device Shelf Model / Identifier Expiration Serial / Date Lot Screw,Shz,Blnt,Tro,Pnt,[id number] ([id number]) - [id number] IMPLANTS BECCA & [id number] / Implanted: Qty: 2 on 01/06/2020 by Yolanda Still [facility] at [facility] Shen,Thrd,Spd,Pnt-Tp,[id number] ([id number]) - [id number] IMPLANTS Left: BECCA & [id number] / Implanted: Qty: 2 on 01/08/2020 by Yolanda Still MD at [facility] Insurance Payer Benefit Plan / Subscriber ID Effective Dates Phone Addre ss Type Group [place] [id number] 2015-Aileen [phone] [address] [facility] [address] [address] [place], [place] [id number] Advance Directives Documents on File Type Date Recorded Patient 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
--- OUTSIDE RECORDS SUMMARY | 2022-02-15 02:25 | XMS_ITS | Encounter Summary ---
:1960 Author Organization [facility] [address] Care Team Providers Name Role Phone April Cummins APRN Primary Care Provider Reason for Visit Reason Comments Establish Care Consultation (Routine) - Closed Specialty Diagnoses / Procedures Referred By Contact Refer red To Contact Allergy Diagnoses Allergy to other foods April Cummins APRN [facility] [address] [place] [phone] Referral ID Status Reason Start Date Expiration Date Visits V isits Requested Authorized [id number] Closed Consult, Test 03/17/2021 03/17/2022 [facility] PCP Updated and/or Approved Encounter Details Date Type Department Care Team Description 07/27/2021 Office Visit Allergy at [facility] Kirsten Champagne, Chronic rhinitis; [facility] Adverse food reaction, [place] [address] ALLERGY AND [phone] IMMUNOLOGY [place], [place] [address] Social History Tobacco Use Types Packs/Day Years Used Date Never Smoker Smokeless Tobacco: Never Used Comments: Exposure to smoking in [place] the age of 16 Alcohol Use Standard Drinks/Week Comments No 0 (1 standard drink = 0.6 oz pure alcoho l) Sex Assigned at Date Recorded Not on file documented as of this encounter Last Filed Vital Signs Vital Sign Reading Time Taken Comments Blood Pressure 120/74 07/27/2021 1:01 PM EDT Pulse 60 07/27/2021 1:01 PM EDT Temperature - - Respiratory Rate - - Oxygen Saturation 99% 07/27/2021 1:01 PM EDT Inhaled Oxygen Concentration - - Weight - - Height - - Body Mass Index - - documented in this encounter Patient Instructions Patient InstructionsKirsten Champagne MD - 07/27/2021 1:00 PM EDT Images from the original note were not included. - Have labs drawn today - Avoid triggers for your symptoms - Please keep a food/ medications/ exposure diary and document symptoms. Review the diary for any patern. If there is a specific trigger that you are having symptoms with, then avoid that trigger for eight weeks and see if you feel better. If you feel better, continue to avoid that trigger. If your symptoms are unchanged, then, re- introduce the potential trigger into your lifestyle. - Always have your epinephrine autoinjector. Call 911 and go to the local ER after administering it. Lewis FAJARDOK, Shy J, Solis T, et al. Stinging insect hypersensitivity: a practice parameter update 2016. [facility] Allergy Asthma Immunol. 2017;118:28-54. Please note that if you have any questions about the laboratory or radiologic tests being ordered, please call us prior to having the tests. If you have questions about the the cost of the tests being ordered, please contact the patient finance office at , prior to having the tests collected. Please contact the allergy clinic in 7-10 business days for your test results. You may call [phone] or send a message through the [facility] portal. documented in this encounter Progress Notes Viky Shaw PA - 07/27/2021 1:00 PM EDT Images from the original note were not included. [facility] Section of Allergy and Clinical Immunology Primary Care Provider: April Cummins APRN Patient Age: 60 y.o. Patient : 1960 Reason for Evaluation: Sensitivities Historian: Patient Subjective: Chief Complaint Patient presents with ??? Establish Care Patient ID: Kalyn Darnell Case is a 60 y.o. female referred by April Cummins APRN for consultation regarding fppd and environmental sensitivities. 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 She also is concerned thatshe may have possible food or mold triggers for her symptoms. She reports that she has self-diagnosed herself with Sabrina yeast overgrowth and is eating a very limited diet which includes mostly meat and vegetables. Starchy and sugary foods may feed the Sabrina,so she generally avoids them. She has seen GI in 2017 and was diagnosed with SIBO who recommended probiotics, which have been helpful for diarrhea. She reports that many years ago she saw a survey research teacher in [place] who advised her to avoid wheat. Shehad some blood testing done that that time. She reports that if she eats wheat, she develops a delayed reaction of puffy eyes, itchy ears and sinus symptoms. Eventually she gets a rash on her body as well. She also develops diarrhea and bloating with wheat. She tolerates sprouted wheat occasionally, but if she eats it more frequently she will develop symptoms. She does not know if she had testing forceliac disease previously. She reports that if she eats peanut or watermelon she becomes agitated. She tried watermelon recently and tolerated it. She reports that peaches cause itching within an hour.Chocolate with sugar she will develop delayed itching and rash. She reports that she has developed tootie while on a drip with sucrolose or glucose. She reports that she tried eating bee pollen in yogurt once and her throat closed. She reports that honey causes her to develop an immediate headache. She reports that she has had large local swelling and throat swelling from a bee sting many years ago.She does not carry an epinephrine autoinjector. She is also sensitive to fragrances, but this was worse when she lived in [place] previously, whichshe attributes to overall environmental exposure load. She has previously had environmental testing which was positive to grass and borderline to trees, weeds and cockroach. She takes Flonase as needed and finds it to be helpful. She reports that she recently had bloodwork which suggested that she may have low protein/malabsorption, so she was advised to take amino acid supplements. She reports that she received her Moderna COVID-19 vaccine. She suspects that she had COVID-19 last year. Past Medical History: Diagnosis Date ??? Anxiety ??? Depression ??? IBS (irritable bowel syndrome) ??? Nephrolithiasis ??? No known health problems ??? Sepsis due to urinary tract infection Past Surgical History: Procedure Laterality Date ??? APPENDECTOMY ??? BACK SURGERY ??? SECTION ??? PRO APPLY BONE UNIPLANE, EXT FIX DEV Left 01/06/2020 APPLICATION OF A UNIPLANE, UNILATERAL, EXT FIXATION SYS, LOWER EXTREMITY (WRVU 8.78) performed by Yolanda Still MD at [facility] MAIN OR ??? PRO OPEN TREAT TIBIA SHAFT FX, SCREWS Left 01/08/2020 ORIF TIBIAL SHAFT, PLATE & SCREWS (WRVU 12.54) performed by Yolanda Still MD at [facility] MAIN OR ??? SHOULDER ARTHROSCOPY ??? TIBIA FRACTURE SURGERY ??? URETER STENT PLACEMENT Outpatient Medications Marked as Taking for the 07/27/21 encounter (Office Visit) with Kirsten Champagne MD Medication Sig Dispense Refill ??? GLYCERIN, ADULT, RECT Place rectally. ??? Lactobacil 2-S.thermo-Bifido 1 (LACTOBAC #2-BIFIDO #1-S. THERM ORAL) Take 3 capsules by mouth. ??? fluticasone propionate (Flonase) 50 mcg/actuation [place], Suspension by Nasal route. ??? pantoprazole EC (Protonix) 40 mg Tablet, Delayed Release (E.C.) Take by mouth. ??? ferrous bis-glycinate chelate (iron bisglycin chelate, bulk,) Powder by [facility].(Non-Drug; Combo Route) route. ??? Thyroid, Pork, (SELLING MANAGER Thyroid) 15 mg Tablet Take 45 mg by mouth daily. ??? castor oil Oil Thousandsticks Oil, See Instructions, Apply topically, 0 Refill(s) ??? pyridoxine, vitamin B6, (Vitamin B-6) 100 mg Tablet Daily, 0 Refill(s) ??? acetaminophen (Tylenol) 500 mg Tablet Take 2 tablets by mouth every 6 hours. 90 tablet 1 ??? b complex vitamins Capsule Take 1 capsule by mouth daily. ??? acetylcysteine (NAC ORAL) Take by mouth. ??? GLUTATHIONE ORAL Take by mouth daily. ??? FLUoxetine (PROZAC) 10 mg Tablet Take 10 mg by mouth 3 times daily. Allergies Allergen Reactions ??? Bee Pollen Other reaction(s): throat closes up ??? Folic Acid ??? Milk Diarrhea ??? Senna ??? Sugarup [Dextrose] ??? Tetracycline Nausea Only ??? Wheat Other (See Comments) Gastrointestinal distress Family History Problem Relation Age of Onset ??? Cancer Mother ??? Asthma Mother ??? Allergic Rhinitis Mother ??? Chronic Obstructive Pulmonary Disease Mother ??? Chronic Obstructive Pulmonary Disease Father ??? Food Allergy Other Social History Tobacco Use ??? Smoking status: Never Smoker ??? Smokeless tobacco: Never Used ??? Tobacco comment: Exposure to smoking in the home until the age of 16 Vaping Use ??? Vaping Use: Never used Substance Use Topics ??? Alcohol use: No ??? Drug use: No Objective: BP 120/74 Pulse 60 SpO2 99% No flowsheet data found. Wt Readings from Last 3 Encounters: 02/24/21 56.7 kg (125 lb) 02/01/21 54.4 kg (120 lb) 11/05/20 59 kg (130 lb 1.1 oz) Physical Exam Vitals reviewed. Constitutional: Appearance: Normal appearance. HENT: Head: Normocephalic and atraumatic. Right Ear: Tympanic membrane normal. Left Ear: Tympanic membrane normal. Nose: Nose normal. Mouth/Throat: Mouth: Mucous membranes are moist. Eyes: Conjunctiva/sclera: Conjunctivae normal. Cardiovascular: Rate and Rhythm: Normal rate and regular rhythm. Heart sounds: Normal heart sounds. No murmur heard. Pulmonary: Effort: Pulmonary effort is normal. Breath sounds: Normal breath sounds. No wheezing. Comments: +Reports MSK back pain with deep inspiration Abdominal: Palpations: Abdomen is soft. Tenderness: There is no abdominal tenderness. Musculoskeletal: Cervical back: Normal range of motion and neck supple. Right lower leg: No edema. Left lower leg: No edema. Lymphadenopathy: Cervical: No cervical adenopathy. Skin: General: Skin is warm. Findings: No rash. Neurological: General: No focal deficit present. Mental Status: She is alert. Psychiatric: Mood and Affect: Mood normal. Review of Medical Records: 10/2017 GI note- -Dx with IBS-D and clinically with SIBO, treated empirically with rifaximin. Assessment and Plan: Kalyn Burgos is a 60 y.o. female seen for consultation regarding food an environmental sensitivities. Plan to check specific IgE tests to molds, corn and sabrina. She was advised to avoid known triggers and to keep a diary of symptoms associated with foods, medication or other exposures. She was prescribed an epinephrine autoinjector and advised to carry it with her. Sting avoidance wasreviewed. Return if symptoms worsen or fail to improve, for FUWO ( follow- up without testing) sensitivities. PHIL [place], [facility] Section of Allergy, Asthma, [place] [id number] Kirsten Champagne MD - 07/27/2021 1:00 PM EDT This patient was seen in conjunction with Viky Shaw as part of a shared visit. The visit encounter was initiated by EMBER Shaw. My face to face involvement was necessary to provide specialty management of allergies. I performed a history and physical examination notable for: Hx: The paient is seen for adverse food reactions and rhinitis. Exam: Physical Exam: Vital signs reviewed. Normal Except General: - No apparent distress Eyes: - Conjunctivae without injection; - No eyelid swelling ENT: - No erythema of the tympanic membranes - Normal external ear canals - Nl nasal mucosa, septum, and turbinates; - Oropharynx well hydrated without lesions or exudates; - Face & sinuses non-tender to palpation/percussion Neck: - Symmetrical, no masses, trachea midline; Resp: - Unlabored breathing with symmetrical and equal bilateral expansion; - CTA w/o wheezes, rales, or rhonchi; CV: - Regular rate and rhythm - No pedal swelling GI: - Abdomen soft - Bowel sounds present - No hepatosplenomegaly Lymph: - No significant cervical, supraclavicular or infraclavicular lymphadenopathy Musculoskeletal: - Nl gait and station Extremities: - No clubbing, cyanosis, or edema Skin: - No rashes Neuro/Psych: - Nl and age appropriate mood and affect - Judgement and insight intact Medical decision making notable for: - Evaluation of mold allergy - Discussed adverse food reactions documented in this encounter Plan of Treatment Upcoming Encounters Date Type Specialty Care Team Description 04/03/2022 TH Visit (TeleHealth) Neurology Pippa Jc MD [facility] [address] [place], [place] [address] (Wo rk) Scheduled Procedures Name Priority Associated Diagnoses Date/Time COLONOSCOPY, DIAGNOSTIC Encounter for colorectal cancer screening documented as of this encounter Procedures Procedure Name Priority Date/Time Associated Comments Diagnosis MISCELLANEOUS LAB Routine 07/27/2021 2:34 Chronic rhinitis Re sults for this REQUEST PM EDT procedure are i n the results section. HC ALLERGEN (IGE), Routine 07/27/2021 2:34 Chronic rhinitis R esults for this LEVEL 1 PM EDT procedure are i n the results section. MISC PRINGLE TEST-PRINGLE Routine 07/27/2021 2:34 Resu lts for this PM EDT procedure are i n the results section. HC [facility] ALLERGEN (LGE) Routine 07/27/2021 2:34 Chronic rhiniti s Results for this LEVEL 1 PM EDT procedure are i n the results section. HC ALLERGEN (IGE), Routine 07/27/2021 2:34 Chronic rhinitis R esults for this LEVEL 1 PM EDT procedure are i n the results section. HC TRYPTASE Routine 07/27/2021 2:34 Chronic rhinitis Results for this PM EDT procedure are i n the results section. HC ALLERGEN (IGE), Routine 07/27/2021 2:34 Chronic rhinitis R esults for this LEVEL 1 PM EDT procedure are i n the results section. HC ALLERGEN (IGE), Routine 07/27/2021 2:34 Chronic rhinitis R esults for this LEVEL 1 PM EDT procedure are i n the results section. HC VENIPUNCTURE Routine 07/27/2021 2:34 Chronic rhinitis Resu lts for this PM EDT procedure are i n the results section. documented in this encounter Results [facility] (07/27/2021 2:34 PM EDT) [facility] Method Time [facility] E[facility]ICE PAL Test ? Result ?Flag ??Unit ??RefValue [facility] Sabrina Albicans(Monilia), I gE ? <0.35 ? kU/L LABORATORY ?Class 0 (Negative <0.35) ?Test Performed by: ?[facility] ?[address] [place] [address] ?Line Up Examiner: Eusebio Virgen M.D. Ph.D.; CLIA# [id number] Specimen Anatomical Collection Method Collection Time Receive d Time (Source) Location / / Volume Laterality Blood Venous Draw / 07/27/2021 2:34 08/02/2021 Unknown PM EDT 10:45 AM EDT Resulting Agency Comment Spec In Lab Kirsten Champagne MD CHEMISTRY ORDERABLES Performing Organization Address City/State/ZIP Code Phon e [place] [address] Miscellaneous Lab request (07/27/2021 2:34 PM EDT) [facility] Method Time [facility] Lab Request EUNICE PAL Result received in [facility]. [facility]OR[facility] Specimen Anatomical Collection Method Collection Time Receive d Time (Source) Location / / Volume Laterality Blood 07/27/2021 2:34 07/27/2021 PM EDT 2:41 PM EDT Resulting Agency Comment Spec In Lab Kirsten Champagne MD HEMATOLOGY ORDERABLES Performing Organization Address City/[facility]/ZIP Code Phon e Number [address] [place] IgE (07/27/2021 2:34 PM EDT) P athologist Signature [place] IgE <0.35 kU/L [facility] Comment: Reference Ranges <0.35 kU/L Class 0: ??Normal 0.35-0.69 kU/L Class 1: ??Low level of allergy, indicat ruth of ongoing sensitization 0.70-3.49 kU/L Class 2: ??Moderate level of allergy, in dicative of stronger ongoing sensitization 3.50-17.49 kU/L Class 3: ??High level of allergy, indica tive of high level sensitization 17.5-49.9 kU/L Class 4: Very high level of allergy, ind icative of very high level sensitization 50.0-100 kU/L Class 5: Very high level of allergy, ind icative of very high level sensitization Specimen Anatomical Collection Method Collection Time Receive d Time (Source) Location / / Volume Laterality Blood 07/27/2021 2:34 07/28/2021 PM EDT 7:26 AM EDT Resulting Agency Comment Spec In Lab Kirsten Champagne MD IMMUNOLOGY ORDERABLES Performing Organization Address City/[facility]/[place] [address] Tryptase (07/27/2021 2:34 PM EDT) P athologist Signature Tryptase 4.4 <=11.1 [facility] Comment: Total tryptase concentrations that are p ersistently greater than 20 ng/mL may be consistent with systemic mastocytosis . Specimen Anatomical Collection Method Collection Time Receive d Time (Source) Location / / Volume Laterality Blood 07/27/2021 2:34 07/28/2021 PM EDT 7:26 AM EDT Resulting Agency Comment Spec In Lab Kirsten Champagne MD CHEMISTRY ORDERABLES Performing Organization Address City/[facility]/ZIP Code Phon e Number [address] Fusarium Moniliforme IgE (07/27/2021 2:34 PM EDT) athologist Signature F Moniliforme <0.35 kU/L [facility] LABORATORY Comment: Class 0 (Negative <0.35) Test Performed by: [facility] [address] [place], [place] [address] Line Up Examiner: Eusebio Virgen M.D. Ph. D.; CLIA# [id number] Specimen Anatomical Collection Method Collection Time Receive d Time (Source) Location / / Volume Laterality Blood 07/27/2021 2:34 07/27/2021 PM EDT 4:11 PM EDT Resulting Agency Comment Spec In Lab Kirsten Champagne MD IMMUNOLOGY ORDERABLES Performing Organization Address City/[facility]/ZIP Code Phon e Number [address] Cladosporium IgE (07/27/2021 2:34 PM EDT) athologist Signature Cladospor IgE <0.35 kU/L [facility] Comment: Reference Ranges <0.35 kU/L Class 0: ??Normal 0.35-0.69 kU/L Class 1: ??Low level of allergy, indicat ruth of ongoing sensitization 0.70-3.49 kU/L Class 2: ??Moderate level of allergy, in dicative of stronger ongoing sensitization 3.50-17.49 kU/L Class 3: ??High level of allergy, indica tive of high level sensitization 17.5-49.9 kU/L Class 4: Very high level of allergy, ind icative of very high level sensitization 50.0-100 kU/L Class 5: Very high level of allergy, ind icative of very high level sensitization >100 kU/L Class 6: Very high level of allergy, ind icative of very high level sensitization Specimen Anatomical Collection Method Collection Time Receive d Time (Source) Location / / Volume Laterality Blood 07/27/2021 2:34 07/28/2021 PM EDT 7:26 AM EDT Resulting Agency Comment Spec In Lab Kirsten Champagne MD IMMUNOLOGY ORDERABLES Performing Organization Address City/[facility]/ZIP Code Phon e Number [address] Helminthosporium Halodes, IgE (07/27/2021 2:34 PM EDT) P athologist Signature H halodes, IgE <0.35 kU/L [facility] Comment: Reference Ranges <0.35 kU/L Class 0: ??Normal 0.35-0.69 kU/L Class 1: ??Low level of allergy, indicat ruth of ongoing sensitization 0.70-3.49 kU/L Class 2: ??Moderate level of allergy, in dicative of stronger ongoing sensitization 3.50-17.49 kU/L Class 3: ??High level of allergy, indica tive of high level sensitization 17.5-49.9 kU/L Class 4: Very high level of allergy, ind icative of very high level sensitization 50.0-100 kU/L Class 5: Very high level of allergy, ind icative of very high level sensitization >100 kU/L Class 6: Very high level of allergy, ind icative of very high level sensitization Specimen Anatomical Collection Method Collection Time Receive d Time (Source) Location / / Volume Laterality Blood 07/27/2021 2:34 07/28/2021 PM EDT 7:26 AM EDT Resulting Agency Comment Spec In Lab Kirsten Champagne MD IMMUNOLOGY ORDERABLES Performing Organization Address City/[facility]/ZIP Code Phon e Number [address] Aspergillus fumigatus IgE (07/27/2021 2:34 PM EDT) P athologist Signature A Fumigatus <0.35 kU/L [facility] LABORATORY Comment: Reference Ranges <0.35 kU/L Class 0: ??Normal 0.35-0.69 kU/L Class 1: ??Low level of allergy, indicat ruth of ongoing sensitization 0.70-3.49 kU/L Class 2: ??Moderate level of allergy, in dicative of stronger ongoing sensitization 3.50-17.49 kU/L Class 3: ??High level of allergy, indica tive of high level sensitization 17.5-49.9 kU/L Class 4: Very high level of allergy, ind icative of very high level sensitization 50.0-100 kU/L Class 5: Very high level of allergy, ind icative of very high level sensitization >100 kU/L Class 6: Very high level of allergy, ind icative of very high level sensitization Specimen Anatomical Collection Method Collection Time Receive d Time (Source) Location / / Volume Laterality Blood 07/27/2021 2:34 07/28/2021 PM EDT 7:26 AM EDT Resulting Agency Comment Spec In Lab Kirsten Champagne MD IMMUNOLOGY ORDERABLES Performing Organization Address City/[facility]/[place] [address] [facility] [address] Alternaria Bijanuis, IgE (07/27/2021 2:34 PM EDT) athologist Signature Alt Debby IgE <0.35 kU/L [facility] Comment: Reference Ranges <0.35 kU/L Class 0: ??Normal 0.35-0.69 kU/L Class 1: ??Low level of allergy, indicat ruth of ongoing sensitization 0.70-3.49 kU/L Class 2: ??Moderate level of allergy, in dicative of stronger ongoing sensitization 3.50-17.49 kU/L Class 3: ??High level of allergy, indica tive of high level sensitization 17.5-49.9 kU/L Class 4: Very high level of allergy, ind icative of very high level sensitization 50.0-100 kU/L Class 5: Very high level of allergy, ind icative of very high level sensitization >100 kU/L Class 6: Very high level of allergy, ind icative of very high level sensitization Specimen Anatomical Collection Method Collection Time Receive d Time (Source) Location / / Volume Laterality Blood 07/27/2021 2:34 07/28/2021 PM EDT 7:26 AM EDT Resulting Agency Comment Spec In Lab Kirsten Champagne MD IMMUNOLOGY ORDERABLES Performing Organization Address City/State/[place] [address] documented in this encounter Visit Diagnoses Diagnosis Chronic rhinitis Adverse food reaction, initial encounter documented in this encounter Care Teams Faculty Physician Relationship Specialty Start Date End Date April Cummins APRN PCP - General Internal Medicine 01/13/[address] [place] [address] documented as of this encounter
--- OUTSIDE RECORDS SUMMARY | 2022-02-15 02:25 | XMS_ITS | Encounter Summary ---
:1960 Author Organization [facility] [place] [address] Care Team Providers Name Role Phone April Cummins APRN Primary Care Provider Reason for Visit Reason Onset Date Comments Pre Procedure Call 08/03/2021 Encounter Details Date Type Department Care Team Description 08/03/2021 Telephone Orthopaedics at [facility] Yolanda Still MD Pre Procedure Call [facility] [place] [phone] ORTHOPAEDIC SURG [place] [id number] (Wo rk) Social History Tobacco Use Types Packs/Day Years Used Date Never Smoker Smokeless Tobacco: Never Used Comments: Exposure to smoking in the [place] the age of 16 Alcohol Use Standard Drinks/Week Comments No 0 (1 standard drink = 0.6 oz pure alcoho l) Sex Assigned at Date Recorded Not on file documented as of this encounter Miscellaneous Notes Telephone Encounter - Leelee Billy - 08/03/2021 10:05 AM EDT I called and left a message for patient to call [phone] directly and schedule surgery with Dr. Still. documented in this encounter Plan of Treatment Upcoming Encounters Date Type Specialty Care Team Description 04/03/2022 TH Visit (TeleHealth) Neurology Pippa Jc MD [facility] [address] [place] [address] (Wo rk) Scheduled Procedures Name Priority Associated Diagnoses Date/Time COLONOSCOPY, DIAGNOSTIC Encounter for colorectal cancer screening documented as of this encounter Visit Diagnoses Not on filedocumented in this encounter Care Teams Jig Hand Relationship Specialty Start Date End Date April Cummins APRN PCP - General Internal Medicine 01/13/[address] [place] [address] documented as of this encounter
--- OUTSIDE RECORDS SUMMARY | 2022-02-15 02:25 | XMS_ITS | Encounter Summary ---
:1960 Author Organization [facility] [address] Care Team Providers Name Role Phone April Cummins APRN Primary Care Provider Encounter Details Date Type Department Care Team Description 01/30/2022 Telephone Gastroenterology at [facility] Suzan Taylor CMA [facility] [place] [address] DEPT [phone] Social History Tobacco Use Types Packs/Day Years Used Date Never Smoker Smokeless Tobacco: Never Used Comments: Exposure to smoking in the [place] the age of 16 Alcohol Use Standard Drinks/Week Comments No 0 (1 standard drink = 0.6 oz pure alcoho l) Sex Assigned at Date Recorded Not on file documented as of this encounter Miscellaneous Notes Telephone Encounter - Suzan Taylor CMA - 01/30/2022 8:45 AM EST Medication Prior Authorization 4L Gastroenterology / [place] [address] Subscriber Insurance: [place] medicaid Physician: Beth Guerra Return Pharmacy: Phone: Fax: Medication Requested: XIfaxan Strength: 550 mg Frequency: TID Disp.: Refills: Currently taking: no Diagnosis for this medication: IBS-D/SIBO ICD-10 code: Prior medications trialed in this patient: flexeril Flagyl Probiotic Medication: Outcome/Adverse Reactions: Treatment failure Decision: Irritable Bowel Syndrome (Xifaxan 550 mg or 200 mg Tablets): patient has a diagnosis of irritable bowel syndrome without constipation or with symptoms of bloating. AND Patient has attempted dietary modification and has had a documented side effect, allergy, treatment failure or contraindication to two of the following classes (one of which must be an antibiotic): ??? Antibiotics (alone or in combination: amoxicillin-clavulanate, cephalosporin, metronidazole, fluoroquinolone, tetracycline, trimethoprim-sulfamethoxazole) ??? SSRIs ??? TCAs ??? Antispasmodics ??? Antidiarrheals ??? Cholestyramine resin AND Quantity limit is 1,200 mg to 1,650 mg/day Tracking number/Case number/Reference number: [id number] Effective date: Start: End: documented in this encounter Plan of Treatment Upcoming Encounters Date Type Specialty Care Team Description 04/03/2022 TH Visit (TeleHealth) Neurology Pippa Jc MD [facility] Medical [facility] [address] [place], [place] [address] (Wo rk) Scheduled Procedures Name Priority Associated Diagnoses Date/Time COLONOSCOPY, DIAGNOSTIC Encounter for colorectal cancer screening documented as of this encounter Visit Diagnoses Not on filedocumented in this encounter Care Teams Pole Maker Relationship Specialty Start Date End Date April Cummins APRN PCP - General Internal Medicine 01/13/[address] [place], [place] [address] [place] [address] documented as of this encounter
--- OUTSIDE RECORDS SUMMARY | 2022-02-15 02:25 | XMS_ITS | Encounter Summary ---
:1960 Author Organization [facility] Address [address] [place] [address] Care Team Providers Name Role Phone April Cummins APRN Primary Care Provider Reason for Referral Physical Therapy (Routine) - Closed Specialty Diagnoses / Procedures Referred By Contact Refer red To Contact Physical Therapy Diagnoses Headache, cervicogenic Headache Jed Jc MD [facility] [address] [place] [address] [place] [address] Fax: Referral ID Status Reason Start Date Expiration Date Visits V isits Requested Authorized [id number] Closed Evaluate and 01/31/2022 01/31/2023 12 12 Treat Encounter Details Date Type Department Care Team Description 01/31/2022 Office Visit Neurology at [facility] Jed Jc MD Headache, cervicogenic; [facility] Inj ury of cervical spinal cord, subsequent encounter Drive [address] [place], [place] [phone] Social History Tobacco Use Types Packs/Day Years Used Date Never Smoker Smokeless Tobacco: Never Used Comments: Exposure to smoking [place] the age of 16 Alcohol Use Standard Drinks/Week Comments No 0 (1 standard drink = 0.6 oz pure alcoho l) Sex Assigned at Date Recorded Not on file documented as of this encounter Progress Notes Jed Jc MD - 01/31/2022 3:00 PM EST Images from the original note were not included. NEUROLOGY CLINIC [facility] [address] [place] [address] 01/31/2022 Patient name: Kalyn Darnell Case Date of : 1960 Referring provider: April Cummins, [address] [place] [address] HISTORY REASON FOR REFERRAL/CHIEF COMPLAINT: Neck pain HISTORY OF PRESENTING COMPLAINTS: She says she had a fall backwards slipping on ice fracturing her leg. She also had a hit her head on a cabinet. It happened couple of months ago. She has history of neck surgery in 2007 and fusion surgery done. Now she is having neck and thoracic spine with some difficulty with her breathing. When her head goes backwards her sinus and her throat closes down. She feels a kink in her back, she has shoulder pain. She had MRI of neck done at [facility]. Her daily work is interrupted due to these problems. She has been having headaches., her right eye hurts. She has some subjective feeling of not being able to carry heavy things that she used to before. She has history of prior concussions. She was seeing PT before, lately it hasn't worked much. 02/01/2021: F/up Neck pain. She was previously seen for neck issues and referred to spine surgery and neck PT . MRI from previous year had shown post operative and spondylitis changes. She says she has been having frequent headache, vision symptoms, neck issues etc. After previous visit she was seen in spine clinic. Not thought to be a candidate for repeat procedure. Pain clinic referral was discussed with her at that time. She also had some neck PT done. She is not sure if PT at that place helped much. PMHx: Past Medical History: Diagnosis Date ??? Anxiety [...] 8.78) performed by Yolanda Still MD at [facility] MA[facility] OR ??? PRO OPEN TREAT TIBIA SHAFT FX, SCREWS Left 01/08/2020 ORIF TIBIAL SHAFT, PLATE & SCREWS (WRVU 12.54) performed by Yolanda Still MD at [facility] MAIN OR ??? SHOULDER ARTHROSCOPY ??? TIBIA FRACTURE SURGERY ??? URETER STENT PLACEMENT Family History: Family History Problem Relation Age of Onset ??? Cancer Mother ??? Asthma Mother ??? Allergic Rhinitis Mother ??? Chronic Obstructive Pulmonary Disease Mother ??? Chronic Obstructive Pulmonary Disease Father ??? Food Allergy Other Social History: reports that she has never smoked. She has never used smokeless tobacco. She reports that she does not drink alcohol and does not use drugs. No flowsheet data found. Lives in 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 Review of systems: Constitutional: No fever/chills Eyes: No vision problems ENT: No nasal symptoms. Cardiovascular: + chest pain No palpitations Respiratory: No cough or shortness of breath Gastrointestinal: No nausea, vomiting, diarrhea or constipation Genitourinary: No dysuria, + incontinence Hematologic: No bleeding or bruising Endocrine: No heat or cold intolerance Musculoskeletal: + Joint pains Integumentary: No skin rashes. Neurologic: See HPI Psychiatric: No depression, poor sleep Allergy/ Immunology: Allergy as documented. [x] Review of systems otherwise negative Medications: Current Outpatient Medications on File Prior to Visit Medication Sig Dispense Refill ??? amino acids/protein supplement (AMINO ACIDS ORAL) Take by mouth. ??? HYDROCHLORIC ACID, BULK, MISC by Misc.(Non-Drug; Combo Route) route. ??? Vitamin B Complex-Vitamin C-Folic Acid (Nephrocap) 1 mg Capsule Take 1 capsule by mouth daily. ??? nutritional supplement/fiber (PEPTIDE 1.0 ORAL) Take by mouth. ??? UNABLE TO FIND bio botanical ??? enzymes,digestive (DIGESTIVE ENZYMES ORAL) Take by mouth. ??? rifAXIMin (Xifaxan) 550 mg Tablet Take 1 tablet by mouth 3 times daily for 14 days. 42 tablet 0 ??? GLYCERIN, ADULT, RECT Place rectally. ??? Lactobacil 2-S.thermo-Bifido 1 (LACTOBAC #2-BIFIDO #1-S. THERM ORAL) Take 3 capsules by mouth. ??? fluticasone propionate (Flonase) 50 mcg/actuation [place], Suspension by Nasal route. ??? pantoprazole EC (Protonix) 40 mg Tablet, Delayed Release (E.C.) Take by mouth. ??? EPINEPHrine 0.3 mg/0.3 mL Auto-Injector Inject 0.3 mLs into the muscle once as needed (allergic reaction ( tight throat, difficulty breathing, lightheaded)). 1 kit 3 ??? ferrous bis-glycinate chelate (iron bisglycin chelate, bulk,) Powder by Misc.(Non-Drug; Combo Route) route. ??? Thyroid, Pork, ([place] Thyroid) 15 mg Tablet Take 45 mg by mouth daily. ??? castor oil Oil [place] Oil, See Instructions, Apply topically, 0 Refill(s) ??? pyridoxine, vitamin B6, (B-6) 100 mg Tablet Daily, 0 Refill(s) ??? polyethylene glycol (Miralax) 17 gram Powder in Packet Take 17 g by mouth 2 times daily. (Patient not taking: No sig reported) 14 each 0 ??? Ciclesonide (OMNARIS) 50 mcg [place], Non-Aerosol INSTILL TWO SPRAYS IN EACH NOSTRIL TWICE A DAY (Patient not taking: No sig reported) 12.5 g 0 ??? Ejvdotpd6-Ipwdsw9-Vlfrr therm. (VISBIOME) 112.5 billion cell Capsule Take 3 capsules by mouth daily. (Patient not taking: No sig reported) 90 capsule 3 ??? b complex vitamins Capsule Take 1 capsule by mouth daily. With folic acid B-1,2,3,5,12 Biotin ??? acetylcysteine (NAC ORAL) Take by mouth. ??? GLUTATHIONE ORAL Take by mouth daily. ??? IODINE ORAL Take 2.5 mg by mouth daily. ??? FLUoxetine (PROZAC) 10 mg Tablet Take 10 mg by mouth 3 times daily. No current facility-administered medications on file prior to visit. Allergies: Allergies Allergen Reactions ??? Bee Pollen Other reaction(s): throat closes up ??? Folic Acid ??? Milk Diarrhea ??? Senna ??? Sugarup [Dextrose] ??? Tetracycline Nausea Only ??? Wheat Other (See Comments) Gastrointestinal distress EXAMINATION Vitals: There were no vitals taken for this visit. General Examination: Appearance: alert, no distress Cardiovascular: Rate regular, S1S2 normal, no murmur Respiratory: Symmetric expansion, lungs clear to auscultation Gastrointestinal: Abdomen soft, nondistended Extremity: no edema Skin: No rashes noted Neurological Examination o Higher functions: - Speech: fluent, no aphasia/dysarthria or dysphonia - Alert and oriented. o Cranial Nerves - II-XII: Pupils bilaterally equal and symmetric conjugate gaze, reacting to light. No ptosis/nystagmus. Vision normal. No field deficits. EOMI. No facial droop. No weakness of jaw/uvula/ palate. o Reflexes - +2 Bilaterally biceps, BR and left knee brisk knee jerk compared to right side. o Motor and Coordination - Normal tone, bulk strength and coordination of right and left sided muscles o Sensory - Normal sensations bilaterally. o Skull and Spine/ Gait - Neck paraspinal tenderness + - Normal gait - Tandem: Imbalance. LABS AND IMAGING Labs GENERAL THYROID: No results found for: TSH, F4IXULU, FREET4, TT4, THYROIDAB, THGAB FolateNo results found for: SFOLATE ESRNo results found for: SEDRATE CRPNo results found for: CRP B12No results found for: [id number] CKNo results found for: CK Angiotensin ConvertaseNo results found for: ZACHARY INFECTIONS HIVNo results found for: HIV12 HEPATITIS PANELNo results found for: HAV, HEPBSAB, HBEAG, HEPBSAG, HEPCAB AUTOIMMUNE PANEL ANANo results found for: KAVEH DSDNANo results found for: DNAABDS Portia results found for: SAEID C3,C4, COMPLEMENTS Lab Results Component Value Date C3 89 (L) 03/17/2019 C4 19 03/17/2019 CARDIOLIPIN, LUPUSNo components found for: CARDIOLIPINANTIBODY, LUPUS, ANTICOAGULANT CELIAC: TTG, GLIADIN, ENDOMYSIALNo components found for: TTRANSGLUTAMINASEANTIBODY ANTIGLIADINANTIBODY VASCULITIS: C,P,ANCA, MPONo results found for: PANCA, CANCA, MYELOP, PR3AB NMONo components found for: NEUROMYELITISOPTICAANTIBODY MG: ACHRAB, Anit MuSK, LEMSNo components found for: ACETYLCHOLINERECEPTORABBINDING, LEMSANTIBODY, ANTISKELETALMUSCLEANTIBODY CRYOGLOBULINSNo components found for: CRYOGLOBULINS METABOLIC CERULOPLASMINNo components found for: CERULOPLASMIN BETA 2 MICROGLOBULINNo results found for: B2MG No results found for: TPROTEINPEP, ALBELECT, ALPHA1, ALPHA2, GAMMAGLOB, APB1 CORTISOLNo results found for: CORTISOL LDH No results found for: LDH NUTRITIONAL VITAMIN DNo results found for: 25OHVITD PRE ALBUMINNo results found for: PREALBUMIN FERRITINNo results found for: IRON COPPERNo results found for: COPPER PERIPHERAL NEUROPATHY HEMOGLOBIN A1CNo results found for: HA1C LIPID PROFILENo results found for: CHLPL, HDL, CHOLHDL, TRIG, LDLCHOL, LDLDIRECT SHEILA 65No results found for: CMB62AS ANTI GM1,ANTI SGPG, MAG@RESUFAST (MAGAUTOAB,SGPG,MAGWB,GM1AB)@ HEAVY METAL SCREENNo results found for: LEAD, ARSENIC METHYLMLONIC ACIDNo results found for: METHYLMAL IgA, IGG No results found for: IGA, IGG CSF PANEL No results found for: NUCCELMANCSF, RBCCSFCT, SEGSCSF, LYMPHSCSF, NUMCELLCTCSF, CSFGLUC, CSFPROTEIN,XANTHOCHROM, MCSBFTYPE, MCS, CSFIGGINDEX, LYMEAB, VDRLSCRNCSF, OLIGOCSF, HSVDNA, ARBOWNILECSF, ENTVPCR, VZVPCR PARANEOPLASTIC PANEL No results found for: PARANEOINTRP, ANNA1, ANNA2, ANNA3, AGNA1, PCA1, PCA2, PCATYPETR, AMPHIPHYSIN, ZBFR3EXN, STRIATMSCLAB, CACHABPQTYPE, CACHABNTYPE, ACHRBINDAB, NEUROKCHAB, NMDARECEPTOR, UXV11WD THROMBOSIS HOMEOCYSTEINENo results found for: HOMOCYSTEINE THROMBOSIS PANELNo results found for: ACAIGM, L5MGUAGOCTX FACTOR V LEIDEN No components found for: FACTORVLEIDEN PROTEIN C,SNo components found for: PROTEINC, PROTEINS ANTITHROMBIN IIINo components found for: ANTITHROMBINIII Miscellaneous Send outs Lab Results Component Value Date MISCMAYO 07/27/2021 Test Result Flag Unit RefValue Gilma Albicans(Monilia), IgE <0.35 kU/L Class 0 (Negative <0.35) Test Performed by: [facility] [place] [address] Bottom Precipitator Operator: Eusebio Virgen M.D. Ph.D.; CLIA# [id number] CT Head: 12/2019: Unremarkable. MRI C spine: 12/2020 Report of a 3 mm cord hyperintensity along the C5 region adjacent to prior fusion surgery ASSESSMENT, PLAN & RECOMMENDATIONS ASSESSMENT: 60 Y F with h/o neck fusion in 2007 referred for evaluation of neck pains which started after fall and whiplash injury last year. On examination she has tenderness around neck paraspinal muscles and asymmetric brisk DTRs. Recent MRI of C spine reportedly shows old cord injury, post operative changes and disc prolapse at C3/4 levels IMPRESSION: Cervical cord injury, h/o neck fusion. Cervicogenic headaches. PLAN/RECOMMENDATIONS: ??? Her symptoms seems related to cervical cord injury, possibly from the fall. Current headaches seems cervicogenic in nature. ??? Started on gabapentin 100/200, Flexeril 5 HS. ??? Neck PT referral placed. ??? Will consider headache clinic referral if headaches doesn't improve. ??? Follow up in a month. Jed Jc MD Department of Neurology [facility] documented in this encounter Plan of Treatment Upcoming Encounters Date Type Specialty Care Team Description 04/03/2022 TH Visit (TeleHealth) Neurology Pippa Jc MD [facility] Medical [facility] [address] [place], [place] [address] (Wo rk) Scheduled Procedures Name Priority Associated Diagnoses Date/Time COLONOSCOPY, DIAGNOSTIC Encounter for colorectal cancer screening Scheduled Referrals Name Type Priority Associated Diagnoses Order S chedule Referral to Outpatient Referral Routine Headache, Ordered: Physical Therapy cervicogenic 01/31/2022 documented as of this encounter Visit Diagnoses Diagnosis Headache, cervicogenic Headache Injury of cervical spinal cord, subseque nt encounter documented in this encounter Care Teams Electrical Assemblies Supervisor Relationship Specialty Start Date End Date April Cummins APRN PCP - General Internal Medicine 01/13/[address] [place] [address] documented as of this encounter
--- OUTSIDE RECORDS SUMMARY | 2022-02-15 02:25 | XMS_ITS | Encounter Summary ---
:1960 Author Organization [facility] [address] Care Team Providers Name Role Phone April Cummins APRN Primary Care Provider Encounter Details Date Type Department Care Team Description 01/30/2022 Telephone Gastroenterology at [facility] [place] [address] Social History Tobacco Use Types Packs/Day Years Used Date Never Smoker Smokeless Tobacco: Never Used Comments: Exposure [place] the age of 16 Alcohol Use Standard Drinks/Week Comments No 0 (1 standard drink = 0.6 oz pure alcoho l) Sex Assigned at Date Recorded Not on file documented as of this encounter Miscellaneous Notes Telephone Encounter - Lisa Castillo - 01/30/2022 10:59 AM EST Inbound/Outbound: OUT Spoke to Patient/Left Message: Spoke to patient Notes: Spoke with alexandra. She has a wheat allergy htat is a hard stop for scheduling a smartpill. Return calls can be handled by: Any [employer] Painting Department Supervisor documented in this encounter Plan of Treatment Upcoming Encounters Date Type Specialty Care Team Description 04/03/2022 TH Visit (TeleHealth) Neurology Pippa Jc MD [facility] [address] [place], [place] [address] (Wo rk) Scheduled Procedures Name Priority Associated Diagnoses Date/Time COLONOSCOPY, DIAGNOSTIC Encounter for colorectal cancer screening documented as of this encounter Visit Diagnoses Not on filedocumented in this encounter Care Teams Communications Equipment Operator Relationship Specialty Start Date End Date April Cummins APRN PCP - General Internal Medicine 01/13/[address] [place] [address] documented as of this encounter
--- OUTSIDE RECORDS SUMMARY | 2022-02-15 02:25 | XMS_ITS | Encounter Summary ---
:1960 Author Organization [facility] [place] [address] Care Team Providers Name Role Phone April Cummins APRN Primary Care Provider Encounter Details Date Type Department Care Team Description 02/24/2021 Hospital Encounter XRay at [place] Amando Mcfarland, Low back pain, [address] [place] non-specific [facility] [address] CENTER [phone] [place] [address] Social History Tobacco Use Types Packs/Day Years [...] Sig Dispensed Refills Start Date End Date Lactobacil Take 3 capsules by 0 01/17/2021 2-S.thermo-Bifido 1 mouth. (LACTOBAC #2-BIFIDO #1-S. THERM ORAL) ferrous bis-glycinate by [facility].(Non-Drug; 0 chelate (iron bisglycin Combo Route) route. chelate, bulk,) Powder Thyroid, Pork, ([place] Take 45 mg by mouth 0 Thyroid) 15 mg Tablet daily. castor oil Oil 0 01/18/2020 [place] Oil, See Instructions, Apply topically, 0 Refill(s) pyridoxine, vitamin B6, 0 01/18/2020 (B-6) 100 mg Tablet Daily, 0 Refill(s) polyethylene glycol Take 17 g by mouth 14 each 0 01/09/20 20 (Miralax) 17 gram Powder 2 times daily. in Packet Ciclesonide (OMNARIS) 50 INSTILL TWO SPRAYS 12.5 g 0 mcg [place], Non-Aerosol IN EACH NOSTRIL TWICE A DAY Mgmedoyh7-Ynuxry5-Sdyha Take 3 capsules by 90 capsule 3 02/2019 therm. (VISBIOME) 112.5 mouth daily. billion cell CapsuleIndications: Small intestinal bacterial overgrowth, Irritable bowel syndrome with diarrhea b complex vitamins Take 1 capsule by mouth daily. With 0 Capsule folic acid B-1,2,3,5,12 Biotin acetylcysteine (NAC ORAL) Take by mouth. 0 GLUTATHIONE ORAL Take by mouth 0 daily. IODINE ORAL Take 2.5 mg by 0 mouth daily. FLUoxetine (PROZAC) 10 mg Take 10 mg by mouth 0 Tablet 3 times daily. naproxen sodium (ALEVE) Take by mouth. 0 01/27/2022 220 mg Capsule omega 5-cdh-cns-fish oil Take by mouth. 0 201901/27/2022 (Fish Oil) 100-160-1,000 mg Capsule oxyCODONE (Roxicodone) 5 Take 1 tablet by 24 tablet 0 01/2701/27/2022 mg TabletIndications: mouth every 6 hours Closed displaced as needed for Pain. comminuted fracture of shaft of left tibia with routine healing, subsequent encounter ibuprofen (Advil;Motrin) Take 200 mg by 0 01/27/2022 200 mg Tablet mouth every 6 hours as needed for Pain. [...] 01/09/202002/2022 (Pericolace) 8.6-50 mg mouth 2 times Tablet daily. documented as of this encounter Plan of Treatment Upcoming Encounters Date Type Specialty Care Team Description 04/03/2022 TH Visit (TeleHealth) Neurology Pippa Jc MD [facility] [address] [place], [place] [address] (Wo rk) Scheduled Procedures Name Priority Associated Diagnoses Date/Time COLONOSCOPY, DIAGNOSTIC Encounter for colorectal cancer screening documented as of this encounter Procedures Procedure Name Priority Date/Time Associated Diagnosis Comme nts XR CERVICAL SPINE 2 Routine 02/24/2021 9:21 AM Low back pain, Results for this OR 3 VIEWS EDT non-specific procedure are i n the results section. documented in this encounter Results XR Cervical Spine 2 or 3 Views (02/24/2021 9:21 AM EDT) Anatomical Region Laterality Modality C-spine N/A Digital Radiography Specimen (Source) Anatomical Location Collection Method / Collectio n Time Received Time / Laterality Volume Impressions 02/24/2021 10:42 AM EDT C4 C6 ACDF without radiographic evidence of hardware complication. No dynamic instability. Thank you for letting us participate in the care of this patient. ??If you are a health care provider and have any questi ons regarding this report, please contact the number below. ??For patients who have questions please contact the health health care coach that requested your imaging first. ? Electronically signed by: Gordon Raygoza MD, [facility] ([phone]), at 02/24/2021 10:42 AM Narrative 02/24/2021 10:42 AM EDT EXAMINATION: XR CERVICAL SPINE 2 OR 3 VIEWS CLINICAL HISTORY: Upright Ap&LAT flex/ e xt (3 views) for surgical eval TECHNIQUE: 3 views of the cervical spine COMPARISON: December 2015 FINDINGS: Status post C4-C6 ACDF. Similar complete fusion across C4-C5. Similar partial fusion across C5-C6. Hardware is intact and unchanged in alignment. No spondylolisthesis with flexion or extens ion. Similar partial disc height loss at C3-C4 and C6-C7. No prevertebral soft ti ssue swelling. Procedure Note Gordon Raygoza MD - 02/24/2021Formatting o f this note might be different from the original. EXAMINATION: XR CERVICAL SPINE 2 OR 3 EWS CLINICAL HISTORY: Upright Ap&LAT flex/ e xt (3 views) for surgical eval TECHNIQUE: 3 views of the cervical spine COMPARISON: December 2015 FINDINGS: Status post C4-C6 ACDF. Similar complete fusion across C4-C5. Similar partial fusion across C5-C6. Hardware is intact and unchanged in alignment. No spondylolisthesis with flexion or extens ion. Similar partial disc height loss at C3-C4 and C6-C7. No prevertebral soft ti ssue swelling. IMPRESSION C4 C6 ACDF without radiographic evidence of hardware complication. No dynamic instability. Thank you for letting us participate in the care of this patient. If you are a health care provider and have any questi ons regarding this report, please contact the number below. For patients who have questions please contact the health health care coach that requested your imaging first. Amando Mcfarland MD IMG DX ORDERABLES documented in this encounter Visit Diagnoses Diagnosis Low back pain, non-specific documented in this encounter Care Teams Hog Trader Relationship Specialty Start Date End Date April Cummins APRN PCP - General Internal Medicine 01/13/21 [address] [place] [address] documented as of this encounter
--- OUTSIDE RECORDS SUMMARY | 2022-02-15 02:25 | XMS_ITS | Encounter Summary ---
:1960 Author Organization [facility] [address] Care Team Providers Name Role Phone April Cummins APRN Primary Care Provider Reason for Referral Diagnostic Test (Routine) - New Request Specialty Diagnoses / Procedures Referred By Contact Refer red To Contact Gastroenterology Diagnoses Encounter for colorectal cancer screening Irritable bowel syndrome with diarrhea Small intestinal bacterial overgrowth SMARTPILL-nausea Beth Guerra [facility] 4t Procedures SmartPill SMARTPILL-nausea KALE [facility] [place] [address] [place] [address] Referral ID Status Reason Start Expiration Visits Visits Date Date Requested Authorized [id number] New Request Consult, 01/27/2022 01/27/2023 1 1 Test & Treat Encounter Details Date Type Department Care Team Description 01/27/2022 TH Visit Gastroenterology at [facility] [place] Mari, Encounter for colorectal can cer screening; (TeleHealth) [facility] Arleth Velasquez APRN Irritable bowel syndrome with diarrhea; [place] [phone] [facility] Medical Small intestinal bacterial o vergrowth [phone] [place] [address] Social History Tobacco Use Types Packs/Day Years Used Date Never Smoker Smokeless Tobacco: Never Used Comments: Exposure to smoking in the [place] until the age of 16 Alcohol Use Standard Drinks/Week Comments No 0 (1 standard drink = 0.6 oz pure alcoho l) Sex Assigned at Date Recorded Not on file documented as of this encounter Patient Instructions Patient InstructionsZackBeth marieKALE - 01/27/2022 1:53 PM EST Colonoscopy with IV sedation in April 2022. Please feel free to call us to set up this appointment.The secretaries should reach out to you within a few days, but definitely call us if you do not hearfrom us within a few days. 2. Smart pill. You will hear from our beef skinner to set this up once an appointment becomes available. Please do not be surprised if you do not hear from someone for several weeks. 3. Rifaximin 550mg three times daily x 14 days. If insurance doesn't cover, I will prescribe metronidazole. 4. Follow up with me approximately one month after testing is complete Functional Bowel Disorders: Information Handout for Patients and Primary Care Providers Judd Rojo MD, FRCPC + Conor Del Rio MD, ZAYRA Beth Guerra APRN + Dinesh Avalos APRN [facility] What are functional bowel disorders? These are the most common type of gastrointestinal disorders in the [facility] The most common functional bowel disorder in the [place] is irritable bowel syndrome (IBS) Irritable bowel syndrome affects the lower GI tract and can cause bloating, abdominal pain, diarrhea, and constipation Functional dyspepsia (FD) affects the upper GI tract and can cause bloating, burping, heartburn, nausea, fullness and stomach discomfort In functional disorders the gut is structurally/anatomically normal but is not functioning properly due to abnormalities in the enteric (gut) nervous system Two mechanisms - heightened sensitivity of the gut to normal sensations (sensory nerves) and abnormal gut motility (motor nerves) These disorders are caused by a combination of a genetic factors, changes to the gut microbiota (intestinal bacteria) and environmental triggers How common are these disorders and what is the impact? 15-20% of general [place] population has IBS or FD or both 2nd most common cause for lost work days (after common cold) in [place] Estimated $30 billion dollar cost to [place] economy per year These disorders can have a significant impact on quality of life How is the diagnosis made? The diagnosis of a functional disorder is NOT a ???diagnosis of exclusion?? (common misconception) Investigations may be necessary to look for other disorders (such as celiac disease) if the diagnosis is unclear Work-up may include history (description of symptoms), physical exam, bloodwork, stool studies, diagnostic imaging and endoscopy What is the prognosis? Functional bowel disorders are unfortunately chronic disorders and often have a major impact on patient quality of life, function, and relationships Symptoms may gradually resolve is a small proportion of patients (highest rate in patients with immediate onset of symptoms after infection); shelter symptoms are expected in most patients however Intermittent exacerbations (i.e. ???flares?? ) are common and may be caused by stress, infections, antibiotic exposure, and lack of adherence to treatment plans When should a patient be re-evaluated? Patients with stable symptoms do NOT need episodic re-evaluation Subtle changes in symptoms and symptom flares are common Patients should be re-evaluated if they have progression or dramatic changes in symptoms, severe abdominal pain, swallowing difficulties, unexplained weight loss, anemia (low blood counts), or bleeding If you have concerns be sure to talk to your doctor What are the goals of therapy? Ultimately we hope that you to able to achieve prolonged periods of stability with minimal daily symptoms and have a decrease in the frequency/severity of ???flares?? However, we believe the most important goal is to help you improve your overall quality of life. For most patients this means doing the things that are important in your life despite having symptoms. This is generally achieved by helping you develop coping skills and helping you achieve a greater understanding of your disorder. Remember, generally complete resolution of symptoms is NOT a realistic goal. How do I use this information? Talk to you primary care provider and/or local cupola melter and share this document. Treatmentof functional disorders is a team effort! Set realistic goals! Remember it is unlikely that any one measure will completely eliminate all symptoms ???Start low and go slow?? with all measures to avoid potential side effects Do ONE measure at a time - add measures as needed in a ???step-montague fashion?? - this will help determine if a particular measure is helpful or not Stay on any measure continuously for at least 4-6 weeks prior to assessing whether or not it is helping (improvements are often slow to occur) After an adequate trial ask yourself if the benefit is worth continuing the treatment Remember there are a limited number of treatment options available. We want to be absolutely sure that a measure is not effective or intolerable before stopping it and considering other options Often patients will need several ???layers?? or ???steps?? of therapy - finding the right combination for you takes time and patience We specifically recommend all patients to do ALL lifestyle and dietary measures AND try using Metamucil (or other psyllium fiber supplement) and probiotics together - this approach benefits most patients OTC (akoc-uwz-awfnbal) medications can be used for ongoing bothersome symptoms as listed below Your provider (PCP or local Gastroenterology provider or [facility] provider) may decide to use prescription medications if you have ongoing symptoms despite strict adherence to lifestyle anddietary measures and OTC medications Your provider will give you advice on treatments but it is your responsibility to work on these measures to improve your symptoms. Lack of adherence to recommendations is one of the most common cause for ongoing symptoms. If symptoms are controlled try easing back or stepping down on measures - remember the main goal is to improve quality of life (not necessarily eliminate symptoms). Non-Pharmacologic General Treatments Lifestyle measures Many lifestyle factors can worsen IBS symptoms However, IBS is not caused by these factors (common misconception) These lifestyle factors include the following: Inadequate sleep Weight gain Inadequate exercise Stress Depression/anxiety - this should be brought up to your Primary Care Provider (if left untreated it is unlikely the functional bowel disorder will improve) Dietary measures Trigger food avoidance - you should re-introduce foods once symptoms settle as overly restrictive diet can be unhealthy and even harmful Fatty foods, spicy foods, alcohol, and caffeine can worsen symptoms Consider a 2 week dairy-free trial for possible lactose-intolerance Your PCP or GI provider can refer you to a dietitian to discuss specialized diets. The overall dietary goal is to allow you to have a well-balanced and nutritious diet Fiber and Fluid Adequate fiber and fluid intake is essential for optimal functioning of the human digestive tract Aim for a fluid intake goal of 8-10 glasses of water a day (caffeine and alcohol count as minus one in calculation) Aim for a fiber intake goal of 30 grams per day - some patients may require more or less Increase fiber by 5 grams per week (remember ???start low and go slow?? ) Fiber can be from multiple dietary sources but supplemental is often helpful Fiber intake should include psyllium fiber; this is the type of fiber used in research studies for treatment of functional disorders Sources of psyllium include All-Bran psyllium buds, Metamucil, Konsyl, bulk psyllium (Electronic Payment and Services (EPS) food stores and bulk stores) Specifically we recommend starting Metamucil or Konsyl at a low dosage - start at one teaspoon a dayfor one week then gradually increase by one teaspoon per week until no further benefit is achieved. Some patients may get bloating when they start a fiber supplement. This generally goes away after 1-2 weeks of daily therapy. Try backing off to a lower dose or trying an alternate version (such as sweetener-free Metamucil) If persistent issues try Citrucel (methylcellulose) as an alternate fiber supplement Probiotics Measures aimed at improving the microbiome such as probiotics are a promising area but convincing medical evidence is still lacking Vqsd-pqt-aqfhmgd supplements including probiotics are not typically evaluated by FDA. The quality and even safety is often unclear and many products (despite being very expensive) actually do not contain any active ingredients at all! Live-culture yogurts, kombucha, sauerkraut and other dietary sources may help improve your microbiome Align, TuZen, and Visbiome are the three probiotics that are supported by medical research to have benefit for IBS Florastor has been shown to decrease antibiotic-associated diarrhea and post- infectious diarrhea BioK Plus has been shown to decrease antibiotic-associated diarrhea and antibiotic-related infections Rpyp-gai-Hkpospc Medications for Functional Gut Disorders Based on Symptoms Diarrhea Loperamide (Imodium) should be considered first for mild and intermittent symptoms - start with small doses and take several hours before needed (or even before bed) (it is generally considered safe for long-term use) Constipation Patients with mild constipation can use laxatives ???as needed?? (in other words, if you feel constipated or haven't had a regular bowel movement). However, patients with more severe constipation generally need laxatives on a regular schedule (every day or every second day for example). This is called ???maintenance therapy?? . PEG 3350 (Miralax) is a stool softener that is safe for shelter usage (no risk of dependency) and the dosage can be adjusted to achieve 1-2 soft bowel movements per day; you can take a capful (17g) twice daily if needed Milk of magnesia and lactulose are alternate stool softeners that are generally safe for regular usein most patients (you should ask your provider first). Bisacodyl (Dulcolax) and senna (Senokot) are stimulant laxatives for occasional use only as they maylead to dependency with regular long-term use. Enemas and bowel preparations (e.g. Colyte or Golytely) can be used to treat severe stool impaction ---- this is called ???rescue therapy?? . Drink 2 litres in 4 hours in the evening then take another 2 litres over 4 hours the next morning. Another option is to mix up 14 capfuls of Miralax with 64 oz of Gatorade. After rescue therapy immediately begin aggressive ???maintenance therapy?? with the therapies above. Bloating/Pain Ensure constipation adequately treated - impacted stool can create a partial obstruction and contribute to pain Peppermint oil may also be useful; a capsule form exists as well (IBgard) Simethicone (Gas-X) can be helpful for occasional usage for ???gas spasms?? Acetominophen (Tylenol) is safest analgesic (pain killer) on the gut NSAIDs (e.g. ibuprofen) can cause gut irritation/inflammation - it's best to avoid or use in low doses only Medical cannabis has been used to treat various chronic pain disorders; it has been reported to benefit some patients with pain but has not be rigorously studied and may actually worsen symptoms in some patients with functional disorders. At this point we generally do NOT recommend using medical cannabis to treat functional disorders AVOID narcotics/opioids as they typically make symptoms much worse and there is a risk of addiction and/or dependence Exercise, hot-water bottle/heating pad, warm bath/shower, and warm beverages are also good treatments for painful bloating episodes Heartburn/Nausea/Vomiting/Dyspepsia Acid reducing medications such as proton-pump inhibitors (PPIs) and H2 blockers may be helpful especially if you have gastroesophageal reflux disease (GERD) Often a combination of anti-nausea medications (nnxo-vql-rswqfme or prescription) works better than high doses of only one medication A herbal product called STW5 (Iberogast) is supported by some studies to help dyspepsia but data on long-term effectiveness and safety is limited L-carnitine and coenzyme Q10 supplements have been reported to be beneficial to some patients with chronic nausea and vomiting If using cannabis (recreational or medical) consider stopping for at least two weeks (ideally a fullmonth). While cannabis has been reported to help some patients with nausea it may actually be contributing to symptoms. Disclaimer This information is intended for education purposes only It is not meant to replace direct patient-provider care All medications should be used under the supervision of a Gastroenterology provider or Primary Care Provider Authors are not liable for misuse/misinterpretation of this information Patient Resources [place] [employer] https://www.gastro.org/practice-guidance/ej-cslsrqj-euihsn/t opic/ieqahyuqu-iixln-tcsjojvg-ibs Badgut.org https://badgut.org/information-centre/m-b-nunpepnnm-topics/ibs/ AboutIBS.org https://www.aboutibs.org/ Uptodate.com https://www.Anti-Microbial Solutionsdate.[employer]/contents/mdtixliep-oqkjm-ppfulaek-qdbypf-jdk-kxmpow documented in this encounter Progress Notes Beth Guerra APRN - 01/27/2022 1:30 PM EST [facility] TELEMEDICINE PROGRAM Chief Complaint: Kalyn Burgos is a 61 y[address] patient of Dr[address] Martine coffman. provider found here for follow-up of IBS. Detailed history: *61 y.o. female With a history significant for s/p appendectomy, DJD, IBS, and small intestinal bacterial overgrowth. During her last appointment on 04/29/2019, she endorsed doing wellin terms of symptoms, although continued to have a large amount of gas. Recommendations included met ronidazole and continue VSL #3. Interval history: Has been in remission since taking metronidazole. She is experiencing a recurrence. She has been off VSL #3 since September. Endorses normal bowel movements until recurrent symptoms.Stools have started to become loose. Endorses vaginal splinting for bowel movements. [place] type 1 stools at time. She fractured her leg in 2020. Treated with antibiotics. Subsequently diagnosed with COVID. Unintentional weight loss. Nausea associated with bowel movements. Abdominal pain. Review of systems: 14-point review of systems reviewed and negative except as above. Medications: Outpatient Medications Prior to Visit Medication Sig Dispense Refill ??? amino acids/protein supplement (AMINO ACIDS ORAL) Take by mouth. ??? HYDROCHLORIC ACID, BULK, MISC by [facility] [place].(Non-Drug; Combo Route) route. ??? Vitamin B Complex-Vitamin C-Folic Acid (Nephrocap) 1 mg Capsule Take 1 capsule by mouth daily. ??? nutritional supplement/fiber (PEPTIDE 1.0 ORAL) Take by mouth. ??? GLYCERIN, ADULT, RECT Place rectally. ??? Lactobacil 2-S.thermo-Bifido 1 (LACTOBAC #2-BIFIDO #1-S. THERM ORAL) Take 3 capsules by mouth. ??? fluticasone propionate (Flonase) 50 mcg/actuation [place], Suspension by Nasal route. ??? EPINEPHrine 0.3 mg/0.3 mL Auto-Injector Inject 0.3 mLs into the muscle once as needed (allergic reaction ( tight throat, difficulty breathing, lightheaded)). 1 kit 3 ??? ferrous bis-glycinate chelate (iron bisglycin chelate, bulk,) Powder by Misc.(Non-Drug; Combo Route) route. ??? Thyroid, Pork, ([place] Thyroid) 15 mg Tablet Take 45 mg by mouth daily. ??? castor oil Oil [place] Oil, See Instructions, Apply topically, 0 Refill(s) ??? pyridoxine, vitamin B6, (B-6) 100 mg Tablet Daily, 0 Refill(s) ??? b complex vitamins Capsule Take 1 capsule by mouth daily. With folic acid B-1,2,3,5,12 Biotin ??? acetylcysteine (NAC ORAL) Take by mouth. ??? GLUTATHIONE ORAL Take by mouth daily. ??? IODINE ORAL Take 2.5 mg by mouth daily. ??? FLUoxetine (PROZAC) 10 mg Tablet Take 10 mg by mouth 3 times daily. ??? UNABLE TO FIND bio botanical ??? enzymes,digestive (DIGESTIVE ENZYMES ORAL) Take by mouth. ??? pantoprazole EC (Protonix) 40 mg Tablet, Delayed Release (E.C.) Take by mouth. ??? naproxen sodium (ALEVE) 220 mg Capsule Take by mouth. ??? omega 0-qdw-rrg-fish oil (Fish Oil) 100-160-1,000 mg Capsule Take by mouth. ??? oxyCODONE (Roxicodone) 5 mg Tablet Take 1 tablet by mouth every 6 hours as needed for Pain. (Patient not taking: Reported on 05/21/2020) 24 tablet 0 ??? ibuprofen (Advil;Motrin) 200 mg Tablet Take 200 mg by mouth every 6 hours as needed for Pain. ??? polyethylene glycol (Miralax) 17 gram Powder in Packet Take 17 g by mouth 2 times daily. (Patient not taking: No sig reported) 14 each 0 ??? acetaminophen (Tylenol) 500 mg Tablet Take 2 tablets by mouth every 6 hours. 90 tablet 1 ??? gabapentin (Neurontin) 300 mg Capsule Take 1 capsule by mouth 3 times daily. (Patient not taking: Reported on 05/21/2020) 60 capsule 0 ??? HYDROmorphone (Dilaudid) 2 mg Tablet Take 1-2 tablets by mouth every 4 hours as needed for Pain (1 tab for moderate pain (4-6) or 2 tabs for severe pain (7- 10)). (Patient not taking: Reported on 05/21/2020) 40 tablet 0 ??? senna-docusate (Pericolace) 8.6-50 mg Tablet Take 2 tablets by mouth 2 times daily. (Patient nottaking: Reported on 01/23/2020) 60 tablet 0 ??? Ciclesonide (OMNARIS) 50 mcg [place], Non-Aerosol INSTILL TWO SPRAYS IN EACH NOSTRIL TWICE A DAY (Patient not taking: No sig reported) 12.5 g 0 ??? Dcixtdmx0-Yxkbez1-Swqby therm. (VISBIOME) 112.5 billion cell Capsule Take 3 capsules by mouth daily. (Patient not taking: No sig reported) 90 capsule 3 No facility-administered medications prior to visit. Allergies: is allergic to bee pollen, folic acid, milk, senna, sugarup [dextrose], tetracycline, andwheat. Past Medical History: has a past medical history of Anxiety, Depression, IBS (irritable bowel syndrome), Nephrolithiasis, No known health problems, and Sepsis due to urinary tract infection. Past Surgical History: has a past surgical history that includes Shoulder arthroscopy; section; Appendectomy; Ureter stent placement; Tibia fracture surgery; back surgery; Apply Bone Uniplane, Ext Fix Dev (41803) (Left, 01/06/2020); and Open Treat Tibia Shaft Fx, Screws ([id number]) (Left, 01/08/2020). Family History: family history includes Allergic Rhinitis in her mother; Asthma in her mother; Cancer in her mother; Chronic Obstructive Pulmonary Disease in her father and mother; Food Allergy in an other family member. denies family history of colon cancer, IBD, or celiac disease in mother father or other family members Social History: reports that she has never smoked. She has never used smokeless tobacco. She reports that she does not drink alcohol and does not use drugs. No Physical Examination performed during this telemedicine visit Questionnaire: GI Followup Responses 01/24/2022 Overall relief from GI symptoms No In general, health is: Fair Physical health 15 Mental health 18 Poor physical and mental health kept from usual activities 20 CDC Healthy Day Score 30 Days absent from work 20 Days worked shorter hours 25 Days less productive Yes Typical hours scheduled to work 20 Hours worked per week 10 IBS Severity Score 300 (Moderate IBS) PHQ-4 Score 5 (Mild) # of minutes to fall asleep 5 # of hours to fall asleep 9 Interference with daily function Much Laboratory studies, imaging, and procedures (in summary of my review of prior records): 1. Colonoscopy April 2017; tubular adenoma 2. Stool culture, ova and parasite 2016; negative 3. Abdominal x-ray 01/23/2018; question of ileus versus obstructive process 4. CTAP 02/08/2018; no signs of obstruction or IBD. 5. HBT 05/03/18: hydrogen and methane positive Assessment/Plan: Ms. Carie Burgos is a 61 y.o. patient with the following gastrointestinal issues: 1. IBS-D with history of small intestinal bacterial overgrowth with negative stool cultures previously responding to rifaximin and metronidazole. She was doing well in terms of symptoms following last course of metronidazole until September after stopping VSL. She may benefit from a repeat course of antimicrobials. 2. Nausea without vomiting of unknown significance. She may benefit from motility testing 3. Adenomatous polyps on colonoscopy April 2017. She is due for repeat colonoscopy April 2022. Recommendations: -Colonoscopy April 2022 -Rifaximin 550 mg 3 times daily x14 days -Smart pill -Functional bowel disorder handout provided on after visit summary -Follow-up with me approximately 1 month after testing is complete TIME SPENT WITH PATIENT Time spent reviewing records prior to this encounter: 5 minutes Time spent during encounter with patient including counselin minutes Time spent documenting encounter after office visit: 5 minutes Approximate total time on the date of the encounter devoted to this single encounter: 35 minutes . Beth Guerra APRN [facility] [place] [id number] documented in this encounter Plan of Treatment Upcoming Encounters Date Type Specialty Care Team Description 04/03/2022 TH Visit (TeleHealth) Neurology Pippa Jc MD [facility] er [address] [place] [phone] (Wo rk) Scheduled Orders Name Type Priority Associated Diagnoses Order S chedule ENDOSCOPY CASE REQUEST: Procedures Routine Encounter for Ord ered: 01/27/2022 COLONOSCOPY, DIAGNOSTIC colorectal cancer screening SmartPill GI Routine Encounter for Expected: colorectal cancer 01/27/2022 , Expires: screening 07/29/2022 Irritable bowel syndrome with di arrhea Small intestinal bacterial overgrowth Scheduled Procedures Name Priority Associated Diagnoses Date/Time COLONOSCOPY, DIAGNOSTIC Encounter for colorectal cancer screening documented as of this encounter Visit Diagnoses Diagnosis Encounter for colorectal cancer screenin g Special screening for malignant neoplasm s, colon Irritable bowel syndrome with diarrhea Irritable bowel syndrome Small intestinal bacterial overgrowth documented in this encounter Care Teams Can Filling Machine Operator Relationship Specialty Start Date End Date April Cummins APRN PCP - General Internal Medicine 01/13/21 [address] [place] [address] documented as of this encounter
--- OUTSIDE RECORDS SUMMARY | 2022-02-15 02:25 | XMS_ITS | Encounter Summary ---
:1960 Author Organization [facility] [place] [address] Care Team Providers Name Role Phone April Cummins APRN Primary Care Provider Reason for Referral Diagnostic Test (Routine) - New Request Specialty Diagnoses / Procedures Referred By Contact Refer red To Contact Radiology Diagnoses Nausea and vomiting, intractability of vomiting not specified, unspecified vomiting type Beth Guerra [facility] Rad Nuclear Med Procedures NM Gastric Emptying Scan FLEXOGRAPHIC PRESS OPERATOR [facility] [place] [address] [place] [address] Referral ID Status Reason Start Expiration Visits Visits Date Date Requested Authorized [id number] New Request Specialty 01/31/2022 08/03/2023 1 1 Service Requested Encounter Details Date Type Department Care Team Description 01/31/2022 Orders Only Gastroenterology at [facility] Mari Nausea and vomiting, [facility] Arleth Velasquez APR[facility] [place] [address] [facility] vomiting not [phone] fu, unspecified [place] [address] Social History Tobacco Use Types Packs/Day Years Used Date Never Smoker Smokeless Tobacco: Never Used Comments: Exposure to smoking in the [place] the age of 16 Alcohol Use Standard Drinks/Week Comments No 0 (1 standard drink = 0.6 oz pure alcoho l) Sex Assigned at Date Recorded Not on file documented as of this encounter Plan of Treatment Upcoming Encounters Date Type Specialty Care Team Description 04/03/2022 TH Visit (TeleHealth) Neurology Pippa Jc MD [facility] [place], [place] [address] (Wo rk) Scheduled Orders Name Type Priority Associated Diagnoses Order S chedule NM Gastric Emptying Imaging Routine Nausea and vomiting, Expected: Scan intractability of vomiting 0 01/31/2022, Expires: not specified, unspecified 0 08/02/2022 vomiting type Scheduled Procedures Name Priority Associated Diagnoses Date/Time COLONOSCOPY, DIAGNOSTIC Encounter for colorectal cancer screening documented as of this encounter Visit Diagnoses Diagnosis Nausea and vomiting, intractability of v omiting not specified, unspecified vomiting type documented in this encounter Care Teams Information Technology Associate Relationship Specialty Start Date End Date April Cummins APRN PCP - General Internal Medicine 01/13/[address] [place] [address] documented as of this encounter
--- OUTSIDE RECORDS SUMMARY | 2022-02-15 02:26 | XMS_ITS | Encounter Summary ---
:1960 Author Organization [facility] [place] [address] Care Team Providers Name Role Phone April Cummins APRN Primary Care Provider Reason for Visit Reason Onset Date Comments Bumped Appointment 04/02/2020 Encounter Details Date Type Department Care Team Description 04/02/2020 Telephone Orthopaedics at [facility] Yolanda Still MD Bumped Appointment [facility] [place] [address] ORTHOPAEDIC SURG [place], [place] [address] (Wo rk) Social History Tobacco Use Types [...] this encounter Miscellaneous Notes Telephone Encounter - Yahaira Flores - 04/05/2020 8:17 AM EDT Patient rescheduled. Telephone Encounter - Yahaira Flores - 04/02/2020 12:58 PM EDT LM #1 to call to reschedule bumped 04/[address] Still's clinic, rescheduled to Joseline or Kathie at same time or to PM in Tessy's schedule. documented in this encounter Plan of Treatment Upcoming Encounters Date Type Specialty Care Team Description 04/03/2022 TH Visit (TeleHealth) Neurology Pippa Jc MD [facility] [place] [address] [place], [place] [address] (Wo rk) Scheduled Procedures Name Priority Associated Diagnoses Date/Time COLONOSCOPY, DIAGNOSTIC Encounter for colorectal cancer screening documented as of this encounter Visit Diagnoses Not on filedocumented in this encounter Care Teams Taffy Candy Maker Relationship Specialty Start Date End Date April Cummins APRN PCP - General Internal Medicine 01/06/20 05/20/[address] [place] [place] [address] documented as of this encounter
--- OUTSIDE RECORDS SUMMARY | 2022-02-15 02:26 | XMS_ITS | Encounter Summary ---
:1960 Author Organization [facility] [place] [address] Care Team Providers Name Role Phone April Cummins APRN Primary Care Provider Encounter Details Date Type Department Care Team Description 02/01/2021 Orders Only Orthopaedics at [facility] Yolanda Still, Closed displaced [facility] MD comminuted fracture Drive [facility] [place] [address] [address] [address] osullivan with routine [phone] ORTHOPAEDIC healing, subseq uent SURGERY encounter [place], [place] [address] Social History Tobacco Use Types [...] Visit (TeleHealth) Neurology Pippa Jc MD [facility] [place] [address] [place], [place] [address] (Wo rk) Scheduled Procedures Name Priority Associated Diagnoses Date/Time COLONOSCOPY, DIAGNOSTIC Encounter for colorectal cancer screening documented as of this encounter Visit Diagnoses Diagnosis Closed displaced comminuted fracture of shaft of left tibia with routine healing, subsequent encounter documented in this encounter Care Teams Appraiser Boats [employer] Marine Relationship Specialty Start Date End Date April Cummins APRN PCP - General Internal Medicine 01/13/21 [address] [place] [address] documented as of this encounter
--- OUTSIDE RECORDS SUMMARY | 2022-02-15 02:26 | XMS_ITS | Encounter Summary ---
:1960 Author Organization [facility] [place] [address] Care Team Providers Name Role Phone Susan Elise ND Primary Care Provider Encounter Details Date Type Department Care Team Description 05/21/2020 Office Visit Physical Therapy at Jinny Harkins, PT Closed displaced [address] [facility] comminuted fracture [address] of shaft of left [place], [place] PHYSICAL MEDICINE [place] [phone] REHABILITAT healing, subsequent [phone] [place] [address] encounter Social History Tobacco Use Types Packs/Day Years Used Date Never Smoker Smokeless Tobacco: Never Used Comments: [place] the age of 16 Alcohol Use Standard Drinks/Week Comments No 0 (1 standard drink = 0.6 oz pure alcoho l) Sex Assigned at Date Recorded Not on file documented as of this encounter Miscellaneous Notes Treatment - Therapy - Jinny Harkins, PT - 05/21/2020 1:00 PM EDT Physical Therapy Note Trauma clinic Total treatment time: 15 minutes Total timed code treatment: 15 minutes Follow up visit for patient with: ICD-10-CM 1. Closed displaced comminuted fracture of shaft of left tibia with routine healing, subsequent encounter S82.252D Goals: To be able to walk with equal weightbearing without AD Subjective: Pt reports that she is doing well and just started back up in PT. She did have a gap in PT due to COVID. She is ambulating with loft strand crutches and is WBAT. Objective: Therex: Strength/Endurance/ROM (87078) 15 min ?? Extensive education on the importance of equal weight bearing and to work on this when going fromsit to stand and when standing and to perform quad set when coming up to standing ?? Heel rises with equal weightbearing ?? thinking tall to promote muscle activation ?? LAQ x10 ?? Quad stretch ?? Gait training and proper push off Assessment: knee ROM 0-150 with decreased muscle mass in quad Gait is good with crutches Plan: cont physical therapy for PRN and continue With her PT JINNY HARKINS PT documented in this encounter Plan of Treatment Upcoming Encounters Date Type Specialty Care Team Description 04/03/2022 TH Visit (TeleHealth) Neurology Pippa Jc MD [facility] [address] [place], [place] [address] (Wo rk) Scheduled Procedures Name Priority Associated Diagnoses Date/Time COLONOSCOPY, DIAGNOSTIC Encounter for colorectal cancer screening documented as of this encounter Visit Diagnoses Diagnosis Closed displaced comminuted fracture of shaft of left tibia with routine healing, subsequent encounter documented in this encounter Care Teams Painting Supervisor Relationship Specialty Start Date End Date Susan Elise ND PCP - General Naturopathic Medicine 05/21/20 01/12/21 documented as of this encounter
--- OUTSIDE RECORDS SUMMARY | 2022-02-15 02:26 | XMS_ITS | Encounter Summary ---
:1960 Author Organization [facility] Address [address] [facility] [place] [address] Care Team Providers Name Role Phone Susan Elise ND Primary Care Provider Reason for Visit Reason Comments Follow Up Surgery L proximal tibia fx 01/06/20 ORIF 01/08/20 Encounter Details Date Type Department Care Team Description 07/23/2020 Office Visit Orthopaedics at [facility] Yolanda Still, Closed displaced comminuted fracture of shaft of left tibia with routine healing, subsequent encounter; [facility] MD Right foot pain; Drive [facility] Right ankle pain, [place] [address] CENTER [phone] ORTHOPAEDIC SURGERY [place] [address] Social History Tobacco Use Types Packs/Day Years [...] Sign Reading Time Taken Comments Blood Pressure 106/54 07/23/2020 10:52 AM EDT Pulse 51 07/23/2020 10:52 AM EDT Temperature - - Respiratory Rate - - Oxygen Saturation - - Inhaled Oxygen Concentration - - Weight 59 kg (130 lb) 07/23/2020 10:52 AM EDT reported Height 165.1 cm (5' 5) 07/23/2020 10:52 AM EDT reporte d Body Mass Index 21.63 07/23/2020 10:52 AM EDT documented in this encounter Progress Notes Yolanda Still MD - 07/23/2020 11:30 AM EDT CHIEF COMPLAINT: 6 months post ??left proximal tibia ORIF 01/08/[address] Still ?? HISTORY OF PRESENT ILLNESS: Ms. Carie Burgos is a 59 y.o. female who comes into clinic today for evaluation of the left knee. ? Physical exam: Ms. Carie Burgos is a 59 y.o. female who is alert and oriented. She is in no acute discomfort and is resting comfortably in the exam room. Incision looks great. Prominent lateral tibial hardware Extension 0, Flexion 120 Supple calf ?? Imaging studies: XR of the left tib fib shows proximal tibial fracture with no change in alignment. There has been interval callus formation since prior. ?? Assessment and plan:: 59 y.o. year-old female ??left proximal tibia ORIF 01/08/2020, doing well. We had a long discussionabout her recovery and she will continue working with PT. Carmen Still MD Department of Orthopaedics documented in this encounter Plan of Treatment Upcoming Encounters Date Type Specialty Care Team Description 04/03/2022 TH Visit (TeleHealth) Neurology Pippa Jc MD [facility] [address] [place] [address] ( rk) Scheduled Procedures Name Priority Associated Diagnoses Date/Time COLONOSCOPY, DIAGNOSTIC Encounter for colorectal cancer screening documented as of this encounter Visit Diagnoses Diagnosis Closed displaced comminuted fracture of shaft of left tibia with routine healing, subsequent encounter Right foot pain Pain in limb Right ankle pain, unspecified chronicity documented in this encounter Care Teams Touch Up Worker Relationship Specialty Start Date End Date Susan Elise, SUDEEP PCP - General Naturopathic Medicine 05/21/20 01/12/21 documented as of this encounter
--- OUTSIDE RECORDS SUMMARY | 2022-02-15 02:26 | XMS_ITS | Encounter Summary ---
:1960 Author Organization [facility] [place] [address] Care Team Providers Name Role Phone Susan Elise MT Primary Care Provider Encounter Details Date Type Department Care Team Description 06/08/2020 Ancillary Procedure Radiology Library at [facility] Elise, [address] [address] [place], [place] [phone] [id number] (Wo rk) Social History Tobacco Use Types [...] TH Visit (TeleHealth) Neurology Pippa Jc MD [place], [place] [address] (Wo rk) Scheduled Procedures Name Priority Associated Diagnoses Date/Time COLONOSCOPY, DIAGNOSTIC Encounter for colorectal cancer screening documented as of this encounter Procedures Procedure Name Priority Date/Time Associated Diagnosis Comme nts FILM LIBRARY Routine 06/08/2020 3:15 PM Results for this STORAGE ONLY DX EDT procedure ar e in FOOT the results section. documented in this encounter Results Film Library- Storage Only DX Foot (06/08/2020 3:15 PM EDT) Specimen (Source) Anatomical Location Collection Method / Collectio n Time Received Time / Laterality Volume Narrative [facility] - 06/08/2020 3:15 PM EDT This exam is auto-finalizing. It's purpo se is for storage only. Susan Elise ND IMCyndee FILM LIBRARY ORDERABLES Performing Organization Address City/State/ZIP Code Phon e Number RAD [place], [place] documented in this encounter Visit Diagnoses Not on filedocumented in this encounter Care Teams Damage Assessor Relationship Specialty Start Date End Date Susan Elise ND PCP - General Naturopathic Medicine 05/21/20 01/12/21 documented as of this encounter
--- OUTSIDE RECORDS SUMMARY | 2022-02-15 02:26 | XMS_ITS | Encounter Summary ---
:1960 Author Organization [facility] Address [facility] [address] [place] [address] Care Team Providers Name Role Phone April Cummins APRN Primary Care Provider Encounter Details Date Type Department Care Team Description 01/23/2020 Orders Only Orthopaedics at [facility] Yolanda Still, Closed displaced [facility] comminuted fracture [address] [facility] [place] [address] [address] osullivan with routine [phone] ORTHOPAEDIC healing, subseq uent SURGERY encounter [place], [place] [address] Social History Tobacco Use Types [...] TH Visit (TeleHealth) Neurology Pippa Jc MD [facility] er [place], [place] [address] (Wo rk) Scheduled Procedures Name Priority Associated Diagnoses Date/Time COLONOSCOPY, DIAGNOSTIC Encounter for colorectal cancer screening documented as of this encounter Results XR Tibia Fibula Left (Generic) (01/23/2020 9:47 AM EST) Anatomical Region Laterality Modality Left Digital Radiography Specimen (Source) Anatomical Location Collection Method / Collectio n Time Received Time / Laterality Volume Impressions 01/23/2020 11:48 AM EST 1. ??ORIF of proximal comminuted tibial fracture in unchanged alignment. No hardware complication. 2. ??Unchanged position of comminuted pr oximal fibular fracture. I have personally reviewed the image(s) and the resident's interpretation and agree with the findings, Rosaura mart 01/23/2020 11:48 AM Thank you for letting us participate in the care of this patient. For questions regarding this report, please contact e number below. ? Electronically signed by: Rosaura Saucedo [facility] ([phone]), at 01/23/2020 11:48 AM Narrative 01/23/2020 11:48 AM EST EXAMINATION: XR TIBIA FIBULA LEFT (GENERIC) CLINICAL HISTORY: s/p proximal tib fib f racture and ex fix. Assess healing TECHNIQUE: AP and lateral views of the tibia and fi bula COMPARISON: MRI 01/09/2020 Radiograph tibia and fibula 01/08/2020 FINDINGS: Status post ORIF of comminuted proximal tibial fracture with plate and screw fixation. Unchanged alignment at the fra cture site. There is a linear fracture component that is from the par ent bone, similar to prior. No hardware complication. The fracture lines remain visible. Unchanged position of comminuted fractur e of the proximal fibular shaft which extends to the articular surface. Bledso e brace obscures the lateral projection of the fracture. Procedure Note Rosaura Saucedo MD - 01/23/2020Formatt ing of this note might be different from the original. EXAMINATION: XR TIBIA FIBULA LEFT (GENER IC) CLINICAL HISTORY: s/p proximal tib fib f racture and ex fix. Assess healing TECHNIQUE: AP and lateral views of the tibia and fi bula COMPARISON: MRI 01/09/2020 Radiograph tibia and fibula 01/08/2020 FINDINGS: Status post ORIF of comminuted proximal tibial fracture with plate and screw fixation. Unchanged alignment at the fra cture site. There is a linear fracture component that is from the par ent bone, similar to prior. No hardware complication. The fracture lines remain visible. Unchanged position of comminuted fractur e of the proximal fibular shaft which extends to the articular surface. Bledso e brace obscures the lateral projection of the fracture. IMPRESSION 1. ORIF of proximal comminuted tibial f racture in unchanged alignment. No hardware complication. 2. Unchanged position of comminuted pro ximal fibular fracture. I have personally reviewed the image(s) and the resident's interpretation and agree with the findings, Rosaura mart 01/23/2020 11:48 AM Thank you for letting us participate in the care of this patient. For questions regarding this report, please contact e number below. Electronically signed by: Rosaura Saucedo [facility] ([phone]), at 01/23/2020 11:48 AM Yolanda Still MD IMG DX ORDERABLES documented in this encounter Visit Diagnoses Diagnosis Closed displaced comminuted fracture of shaft of left tibia with routine healing, subsequent encounter Closed displaced comminuted fracture of shaft of left tibia with routine healing, subsequent encounter documented in this encounter Care Teams Edge Glue Machine Tender Relationship Specialty Start Date End Date April Cummins APRN PCP - General Internal Medicine 01/06/20 05/20/[address] [place] [address] documented as of this encounter
--- OUTSIDE RECORDS SUMMARY | 2022-02-15 02:26 | XMS_ITS | Encounter Summary ---
:1960 Author Organization [facility] [place] [address] Care Team Providers Name Role Phone April Cummins APRN Primary Care Provider Reason for Referral Physical Therapy (Routine) - Closed Specialty Diagnoses / Procedures Referred By Contact Refer red To Contact Physical Therapy Diagnoses Closed displaced comminuted fracture of shaft of left tibia with routine healing, subsequent encounter Kathie Cid PA [facility] [place] [address] Referral ID Status Reason Start Date Expiration Date Visits V isits Requested Authorized [id number] Closed Evaluate and 04/08/2020 10/05/2020 1 1 Treat Encounter Details Date Type Department Care Team Description 04/08/2020 TH Visit Orthopaedics at [facility] Kathie Cid Closed displaced (TeleHealth) [facility] EMBER Ramey comminuted fracture [address] [facility] [place] [address] osullivan with routine [phone] ORTHOPAEDIC healing, subseq uent SURGERY encounter (Primary [place] [phone] Dx) Social History Tobacco Use Types Packs/Day Years Used Date Never Smoker Smokeless Tobacco: Never Used Comments: Exposure to smoking in the [place] the age of 16 Alcohol Use Standard Drinks/Week Comments No 0 (1 standard drink = 0.6 oz pure alcoho l) Sex Assigned at Date Recorded Not on file documented as of this encounter Progress Notes Kathie Cid PA - 04/08/2020 2:00 PM EDT PATIENT NAME: Kalyn Darnell Case AGE: 59 y.o. MR#: [id number] DATE OF VISIT: 04/08/2020 CHIEF COMPLAINT: 3 months s/p left proximal tibia ORIF 01/08/[address] Still HISTORY OF PRESENT ILLNESS: Ms. Carie Burgos is a 59 y.o. female who is scheduled for telephone visittoday to discuss her left leg. Had fall while skiing 01/06/2020. Had ex-fix initially. Had subsequentORIF by Dr. Still 01/08/2020. Was NWB for 11 weeks. She progressed to TDWB 1-2 weeks ago. She has been standing on it a little, not fully WB. No increase in pain since she started transferring some. Has not started PT due to COVID19 precautions. Unfortunately, healing on xray was slower than expected.I reviewed this with Dr. Still who recommended progressing her cautiously and if she develops nonunion in the future, we can consider bone grafting surgery. Taking ibuprofen prn for pain. She prefers V icodin. Denies numbness, tingling, change in sensation. Denies fevers, chills, nightsweats. Past medical history: Patient Active Problem List Diagnosis Date Noted ??? Postoperative anemia due to acute blood loss 01/09/2020 ??? ACL tear 01/09/2020 ??? Tibia fracture 01/06/2020 ??? 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 Lower urinary tract symptoms (LUTS) 12/04/2018 ??? History of nephrolithiasis 12/04/2018 ??? Renal cyst, acquired 12/04/2018 ??? NELSON (stress urinary incontinence, female) 12/04/2018 ??? Cystocele, midline 12/04/2018 ??? Disorder of muscle, ligament, and fascia 03/01/2018 ??? Pelvic floor dysfunction 03/01/2018 ??? Chronic constipation 03/01/2018 ??? Mixed stress and urge urinary incontinence 03/01/2018 ??? DJD (degenerative joint disease) of cervical spine 04/19/2016 ??? Left ulnar fracture 02/16/2016 Medications: ??? oxyCODONE (Roxicodone) 5 mg Tablet ??? ibuprofen (Advil;Motrin) 200 mg Tablet ??? acetaminophen (Tylenol) 500 mg Tablet ??? gabapentin (Neurontin) 300 mg Capsule ??? HYDROmorphone (Dilaudid) 2 mg Tablet ??? polyethylene glycol (Miralax) 17 gram Powder in Packet ??? senna-docusate (Pericolace) 8.6-50 mg Tablet ??? cyclobenzaprine (Flexeril) 10 mg Tablet ??? Ciclesonide (OMNARIS) 50 mcg [place], Non-Aerosol ??? Wvrcpmno5-Vyxjtj5-Hvmce therm. (VISBIOME) 112.5 billion cell Capsule ??? b complex vitamins Capsule ??? acetylcysteine (NAC ORAL) ??? GLUTATHIONE ORAL ??? IODINE ORAL ??? FLUoxetine (PROZAC) 10 mg Tablet Allergies: Allergies Allergen Reactions ??? Milk Diarrhea ??? Tetracycline Nausea Only ??? Wheat Other (See Comments) Gastrointestinal distress Social history: Social History Tobacco Use ??? Smoking status: Never Smoker ??? Smokeless tobacco: Never Used ??? Tobacco comment: Exposure to smoking in the home until the age of 16 Substance Use Topics ??? Alcohol use: No Review of systems: No chest pain or shortness of breath No fevers, night sweats or chills Vital signs: There were no vitals filed for this visit. Telephone visit today. Physical exam: Ms. Carie Burgos is a 59 y.o. female who is alert and oriented. Answers questions appropriately Denies issues at wound. No erythema, dehiscence, drainage. Says she has TTP at left proximal tibia Denies fevers, chills, nightsweats Says she is able to gently flex and extend knee Able to DF/PF ankles Imaging studies: Xrays taken today demonstrate left tibia ORIF hardware in appropriate place without obvious complication in hardware. The fracture line is still very visible. The fracture is not significantly changed compared to films taken 03/23. Assessment and plan:: 59 y.o. year-old female 3 months s/p left proximal tibia ORIF 01/08/[address] Still We had a long discussion regarding left tibia fracture, s/p ORIF. Progress gently to WBAT LLE, startwith assistive device. Discussed fracture is not completely healed. Progress in healing appears a bit stalled. Discussed risks of progressing her include possibly breaking hardware. Discussed risk of this becoming a nonunion. 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 If this does not heal, we may need to consider that. Recommend tylenol rather than ibuprofen, if possible.She inquires about Vicodin. I don't want to get her back on a strong opioid if she has already tapered off after surgery. She says she doesn't like tramadol which I offered to her. I explained that starting PT will be very helpful for her. She says she didn't get the last script I mailed. I would likePT to help guide her through the process of beginning to WBAT LLE. New script mailed today. This plan was discussed with the patient and they are in agreement. All of the patient's questions were answered. The patient understand to contact us if they have any other questions or concerns. FU: She will call me with an update on how she is doing and whether she has started PT late next week Office visit with new tibia films in 5-6 weeks Kathie Cid PA-C The above dictation was made with voice recogonition software documented in this encounter Plan of Treatment Upcoming Encounters Date Type Specialty Care Team Description 04/03/2022 TH Visit (TeleHealth) Neurology Pippa Jc MD [facility] [place] [address] (Wo rk) Scheduled Procedures Name Priority Associated Diagnoses Date/Time COLONOSCOPY, DIAGNOSTIC Encounter for colorectal cancer screening Scheduled Referrals Name Type Priority Associated Diagnoses Order S chedule Referral to Outpatient Referral Routine Closed displaced Orde red: Physical Therapy comminuted fracture 03/26 of shaft of left tibia with routine healing, subsequent encounter documented as of this encounter Visit Diagnoses Diagnosis Closed displaced comminuted fracture of shaft of left tibia with routine healing, subsequent encounter - Primary documented in this encounter Care Teams Axminster Weaver Relationship Specialty Start Date End Date April Cummins APRN PCP - General Internal Medicine 01/06/20 05/20/[address] [place] [address] documented as of this encounter
--- OUTSIDE RECORDS SUMMARY | 2022-02-15 02:26 | XMS_ITS | Encounter Summary ---
:1960 Author Organization [facility] [place] [address] Care Team Providers Name Role Phone Susan Elise ND Primary Care Provider Encounter Details Date Type Department Care Team Description 05/21/2020 Hospital Encounter XRay at [facility] Floyd Grey S/p left tibia ORIF [address] [facility] [address] Ron MD for tibial plateau [place], [place] [facility] fracture [address] [id number] Still [phone] [place] [address] Social History Tobacco Use Types Packs/Day Years [...] Sig Dispensed Refills Start Date End Date castor oil Oil 0 01/18/2020 [place] Oil, See Instructions, Apply topically, 0 Refill(s) pyridoxine, vitamin B6, 0 01/18/2020 (B-6) 100 mg Tablet Daily, 0 Refill(s) polyethylene glycol Take 17 g by mouth 14 each 0 01/09/20 20 (Miralax) 17 gram Powder 2 times daily. in Packet Ciclesonide (OMNARIS) 50 INSTILL TWO SPRAYS 12.5 g 0 mcg [place], Non-Aerosol IN EACH NOSTRIL TWICE A DAY Qkeacipj6-Yfhqoe8-Xnhmn Take 3 capsules by 90 capsule 3 02/2019 therm. (VISBIOME) 112.5 mouth daily. billion cell CapsuleIndications: Small intestinal bacterial overgrowth, Irritable bowel syndrome with diarrhea b complex vitamins Capsule Take 1 capsule by mouth daily. With 0 folic acid B-1,2,3,5,12 Biotin acetylcysteine (NAC ORAL) Take by mouth. 0 GLUTATHIONE ORAL Take by mouth 0 daily. IODINE ORAL Take 2.5 mg by 0 mouth daily. FLUoxetine (PROZAC) 10 mg Take 10 mg by 0 Tablet mouth 3 times daily. omega 3-eti-jkj-fish oil Take by mouth. 0 201901/27/2022 (Fish Oil) 100-160-1,000 mg Capsule oxyCODONE (Roxicodone) 5 Take 1 tablet by 24 tablet 0 01/2701/27/2022 mg TabletIndications: mouth every 6 Closed displaced hours as needed comminuted fracture of for Pain. shaft of left tibia with routine healing, subsequent encounter ibuprofen (Advil;Motrin) Take 200 mg by 0 01/27/2022 200 mg Tablet mouth every 6 hours as needed for Pain. acetaminophen (Tylenol) Take 2 tablets by 90 tablet 1 01/0901/27/2022 500 mg Tablet mouth every 6 hours. gabapentin (Neurontin) 300 Take 1 capsule by 60 capsule 0 01/27/2022 mg Capsule mouth 3 times daily. HYDROmorphone (Dilaudid) 2 Take 1-2 tablets 40 tablet 0 01/27/2022 mg Tablet by mouth every 4 hours as needed for Pain (1 tab for moderate pain (4-6) or 2 tabs for severe pain (7-10)). senna-docusate Take 2 tablets by 60 tablet 0 01/09/202002/2022 (Pericolace) 8.6-50 mg mouth 2 times Tablet daily. cyclobenzaprine (Flexeril) Take 1 tablet by 10 tablet 0 07/23/2020 10 mg Tablet mouth 3 times daily as needed for Muscle spasms. documented as of this encounter Plan of Treatment Upcoming Encounters Date Type Specialty Care Team Description 04/03/2022 TH Visit (TeleHealth) Neurology Pippa Jc MD [facility] er [address] [place], [place] [address] (Wo rk) Scheduled Procedures Name Priority Associated Diagnoses Date/Time COLONOSCOPY, DIAGNOSTIC Encounter for colorectal cancer screening documented as of this encounter Procedures Procedure Name Priority Date/Time Associated Diagnosis Comme nts XR TIBIA FIBULA Routine 05/21/2020 10:53 AM S/p left tibia GILLES F Results for this LEFT EDT for tibial plateau procedure are in fracture 01/08/2020 the resul ts by Dr. Still section. documented in this encounter Results XR Tibia Fibula Left (Generic) (05/21/2020 10:53 AM EDT) Anatomical Region Laterality Modality Left Digital Radiography Specimen (Source) Anatomical Location Collection Method / Collectio n Time Received Time / Laterality Volume Impressions 05/21/2020 11:19 AM EDT 1. ??Osseous bridging at left fibular neck fracture site 2. ??Increased callus deposition at left proximal tibia/tibial plateau fracture. 3. ??No hardware complications. Thank you for letting us participate in the care of this patient. For questions regarding this report, please contact e number below. ? Narrative 05/21/2020 11:19 AM EDT EXAMINATION: XR TIBIA FIBULA LEFT (GENERIC) CLINICAL HISTORY: s/p ORIF L tibial plat eau fracture, , entered by ordering service TECHNIQUE: Tibia and fibula, 2 views COMPARISON: none FINDINGS: Bones Tibia- ORIF of left tibial plateau fracture wit h fixation plate and screws. There is increased callus deposition with partial obliteration of the fracture line. No hardware complications. Fibula-osseous bridging at fibular neck fracture. Joints Knee joint-no malalignment. Tibial talar joint-congruent ankle morti se. Soft tissues Decreased soft tissue swelling Procedure Note Rosaura Saucedo MD - 05/21/2020Formatt ing of this note might be different from the original. EXAMINATION: XR TIBIA FIBULA LEFT (GENER IC) CLINICAL HISTORY: s/p ORIF L tibial plat eau fracture, , entered by ordering service TECHNIQUE: Tibia and fibula, 2 views COMPARISON: none FINDINGS: Bones Tibia- ORIF of left tibial plateau fracture wit h fixation plate and screws. There is increased callus deposition with partial obliteration of the fracture line. No hardware complications. Fibula-osseous bridging at fibular neck fracture. Joints Knee joint-no malalignment. Tibial talar joint-congruent ankle morti se. Soft tissues Decreased soft tissue swelling IMPRESSION 1. Osseous bridging at left fibular nec k fracture site 2. Increased callus deposition at left proximal tibia/tibial plateau fracture. 3. No hardware complications. Thank you for letting us participate in the care of this patient. For questions regarding this report, please contact e number below. Floyd Grey MD IMG DX ORDERABLES documented in this encounter Visit Diagnoses Diagnosis S/p left tibia ORIF for tibial plateau f racture 01/08/[address] Still documented in this encounter Care Teams Forensic Chemist Relationship Specialty Start Date End Date Susan Elise ND PCP - General Naturopathic Medicine 05/21/20 01/12/21 documented as of this encounter
--- OUTSIDE RECORDS SUMMARY | 2022-02-15 02:26 | XMS_ITS | Encounter Summary ---
:1960 Author Organization [facility] [place] [address] Care Team Providers Name Role Phone April Cummins APRN Primary Care Provider Reason for Visit Reason Onset Date Comments Questions 02/10/2021 Encounter Details Date Type Department Care Team Description 02/10/2021 Telephone Orth[place]edics [place] [facility] [place] [address] Social History Tobacco Use Types Packs/Day Years Used Date Never Smoker Smokeless Tobacco: Never Used Comments: Exposure to smoking in the [place] the age of 16 Alcohol Use Standard Drinks/Week Comments No 0 (1 standard drink = 0.6 oz pure alcoho l) Sex Assigned at Date Recorded Not on file documented as of this encounter Miscellaneous Notes Telephone Encounter - Judd Briggs - 02/10/2021 10:25 AM EDT Triage Note Subjective: pt calls with post-operative questions Merlos questions/Assessment: pt asks what rehab after having hardware in the LT knee removed will look like. Conferred w/zac malone and relayed to pt she will be walking with expected post-surgical painand discomfort for an expected 4 weeks. Pt then had more increasingly clinical questions such as will I regain normal function, how will the bone heal, and does removing the hardware optimize my bone healing that it couldn't do with the hardware in place? 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 Plan: fwd to clinical staff for resolution Patient/Responsible green party voices an understanding of advice? yes Patient/Responsible green party intends to comply with action/disposition: yes documented in this encounter Plan of Treatment Upcoming Encounters Date Type Specialty Care Team Description 04/03/2022 TH Visit (TeleHealth) Neurology Pippa Jc MD [facility] [address] [place] [address] (Wo rk) Scheduled Procedures Name Priority Associated Diagnoses Date/Time COLONOSCOPY, DIAGNOSTIC Encounter for colorectal cancer screening documented as of this encounter Visit Diagnoses Not on filedocumented in this encounter Care Teams Lead Software Qa Engineer Relationship Specialty Start Date End Date April Cummins APRN PCP - General Internal Medicine 01/13/[address] [place] [address] documented as of this encounter
--- OUTSIDE RECORDS SUMMARY | 2022-02-15 02:26 | XMS_ITS | Encounter Summary ---
:1960 Author Organization [facility] [place] [address] Care Team Providers Name Role Phone PlacidoApril zavala APRN Primary Care Provider Encounter Details Date Type Department Care Team Description 01/09/2020 Interpretation Only [facility] Viky Viveros MD [address] [place] [phone] [place] [address] [phone] (Wo rk) Social History Tobacco Use Types [...] Pippa Jc MD [facility] [address] [place], [place] [address] (Wo rk) Scheduled Procedures Name Priority Associated Diagnoses Date/Time COLONOSCOPY, DIAGNOSTIC Encounter for colorectal cancer screening documented as of this encounter Procedures Procedure Name Priority Date/Time Associated Diagnosis Comme nts CT HEAD WO CONTRAST Routine 01/09/2020 11:43 PM R esults for this (GENERIC) EST procedure are i n the results section. documented in this encounter Results CT Head wo Contrast (Generic) (01/09/2020 11:43 PM EST) Anatomical Region Laterality Modality Head Computed Tomography Specimen (Source) Anatomical Collection Method Collection Time Re ceived Time Location / / Volume Laterality 01/09/2020 11:43 PM EST Impressions 01/10/2020 2:05 AM EST No acute intracranial hemorrhage or mass effect identified. Preliminary report signed by: Melody Sabillon at 01/10/2020 12:19 AM I have personally reviewed the image(s) and the resident's interpretation and agree with the findings, Luis Ricardo at 01/10/2020 2:00 AM Thank you for letting us participate in the care of this patient. For questions regarding this report, please contact e number below. ? Narrative 01/10/2020 2:05 AM EST EXAMINATION: CT HEAD OR BRAIN W/O CONTRAST CLINICAL HISTORY: ?seizure TECHNIQUE: CT head performed without intravenous co ntrast administration. COMPARISON: CT head dated 01/06/2020 FINDINGS: Bassett-white interface appears relatively well differentiated. No acute intracranial hemorrhage identif ied. No significant mass effect appreciated. Included paranasal sinuses appear well a erated. Included mastoid air cells appear well-a erated. Calvarium appears intact. Procedure Note Luis Ricardo MD - 01/10/2020 EXAMINATION: CT HEAD OR BRAIN W/O CONTRA ST CLINICAL HISTORY: ?seizure TECHNIQUE: CT head performed without intravenous co ntrast administration. COMPARISON: CT head dated 01/06/2020 FINDINGS: Bassett-white interface appears relatively well differentiated. No acute intracranial hemorrhage identif ied. No significant mass effect appreciated. Included paranasal sinuses appear well a erated. Included mastoid air cells appear well-a erated. Calvarium appears intact. IMPRESSION No acute intracranial hemorrhage or mass effect identified. Preliminary report signed by: Melody Sabillon at 01/10/2020 12:19 AM I have personally reviewed the image(s) and the resident's interpretation and agree with the findings, Luis Ricardo at 01/10/2020 2:00 AM Thank you for letting us participate in the care of this patient. For questions regarding this report, please contact e number below. Viky Cordero MD IMG CT ORDERABLES documented in this encounter Visit Diagnoses Not on filedocumented in this encounter Care Teams Street Sweeper Relationship Specialty Start Date End Date April Cummins APRN PCP - General Internal Medicine 01/06/20 05/20/20 [address] [place] [address] documented as of this encounter
--- OUTSIDE RECORDS SUMMARY | 2022-02-15 02:26 | XMS_ITS | Encounter Summary ---
:1960 Author Organization [facility] Address [address] [facility] [place] [address] Care Team Providers Name Role Phone Susan Elise ND Primary Care Provider Encounter Details Date Type Department Care Team Description 11/05/2020 Hospital Encounter XRay [place] [facility] [place]olanda Still Closed displaced [address] Carmen MD comminuted fracture [place], [place] [facility] [place] [phone] osullivan with routine [phone] ORTHOPAEDIC healing, subseq [place] [address] Social History Tobacco Use Types Packs/Day Years [...] Sig Dispensed Refills Start Date End Date ferrous bis-glycinate by [facility].(Non-Drug; 0 chelate (iron bisglycin Combo Route) route. chelate, bulk,) Powder Thyroid, Pork, (Swan Take 45 mg by mouth 0 Thyroid) 15 mg Tablet daily. castor oil Oil 0 01/18/2020 [place] Oil, See Instructions, Apply topically, 0 Refill(s) pyridoxine, vitamin B6, 0 01/18/2020 (B-6) 100 mg Tablet Daily, 0 Refill(s) polyethylene glycol Take 17 g by mouth 14 each 0 01/09/20 20 (Miralax) 17 gram Powder 2 times daily. in Packet Ciclesonide (OMNARIS) 50 INSTILL TWO SPRAYS 12.5 g 0 mcg [place], Non-Aerosol IN EACH NOSTRIL TWICE A DAY Yztlnlex8-Snqvin3-Xzsyk Take 3 capsules by 90 capsule 3 06/0 02/2019 therm. (VISBIOME) 112.5 mouth daily. billion [...] mouth. 0 01/27/2022 220 mg Capsule omega 8-zup-anz-fish oil Take by mouth. 0 201901/27/2022 (Fish [...] (TeleHealth) Neurology Pippa Jc MD [facility] er [place], [place] [address] (Wo rk) Scheduled Procedures Name Priority Associated Diagnoses Date/Time COLONOSCOPY, DIAGNOSTIC Encounter for colorectal cancer screening documented as of this encounter Procedures Procedure Name Priority Date/Time Associated Diagnosis Comme nts XR TIBIA FIBULA Routine 11/05/2020 2:47 PM Closed displaced R esults for this LEFT EST comminuted fracture procedur e are in of shaft of left the results tibia with routine section. healing, subsequent encounter documented in this encounter Results XR Tibia Fibula Left (Generic) (11/05/2020 2:47 PM EST) Anatomical Region Laterality Modality Left Digital Radiography Specimen (Source) Anatomical Location Collection Method / Collectio n Time Received Time / Laterality Volume Impressions 11/05/2020 2:50 PM EST Healing proximal tibial fracture status post internal fixation. Thank you for letting us participate in the care of this patient. For questions regarding this report, please contact e number below. ? Narrative 11/05/2020 2:50 PM EST EXAMINATION: XR TIBIA FIBULA LEFT (GENERIC) CLINICAL HISTORY: left proximal tibia OR IF 01/08/2020 Full length Tib/fib into knee and ankle please TECHNIQUE: 2 views LEFT tibia and fibula COMPARISON: 07/15/2020 FINDINGS: There is a fracture of the proximal tibi a status post internal fixation. The hardware is intact. There is progression of bony bridging at the fracture. Alignment is unchanged. Proximal fibular fracture has healed. Procedure Note Gordon Raygoza MD - 11/05/2020Formatting o f this note might be different from the original. EXAMINATION: XR TIBIA FIBULA LEFT (GENER IC) CLINICAL HISTORY: left proximal tibia OR IF 01/08/2020 Full length Tib/fib into knee and ankle please TECHNIQUE: 2 views LEFT tibia and fibula COMPARISON: 07/15/2020 FINDINGS: There is a fracture of the proximal tibi a status post internal fixation. The hardware is intact. There is progression of bony bridging at the fracture. Alignment is unchanged. Proximal fibular fracture has healed. IMPRESSION Healing proximal tibial fracture status post internal fixation. Thank you for letting us participate in the care of this patient. For questions regarding this report, please contact e number below. Electronically signed by: Gordon Raygoza MD , [facility] ([phone]), at 11/05/2020 2:50 PM Yolanda Still MD IMG DX ORDERABLES documented in this encounter Visit Diagnoses Diagnosis Closed displaced comminuted fracture of shaft of left tibia with routine healing, subsequent encounter documented in this encounter Care Teams Performance Test Architect Relationship Specialty Start Date End Date Susan Elise ND PCP - General Naturopathic Medicine 05/21/20 01/12/21 documented as of this encounter
--- OUTSIDE RECORDS SUMMARY | 2022-02-15 02:26 | XMS_ITS | Encounter Summary ---
:1960 Author Organization [facility] [place] [address] Care Team Providers Name Role Phone April Cummins APRN Primary Care Provider Reason for Referral Consultation (Routine) - Closed Specialty Diagnoses / Procedures Referred By Contact Refer red To Contact [facility] Diagnoses Injury of cervical spinal cord, subsequent encounter Spine - Cervical foraminal stenosis/ MRI 01/04/21 in e[facility]/ ?CT *AMP or Jed Pelletier MD [facility] [place] [address] [place] [address] Phone: Fax: Referral ID Status Reason Start Date Expiration Date Visits V isits Requested Authorized [id number] Closed Consult, 02/01/2021 02/01/2022 1 1 Test & Treat Reason for Visit Consultation (Routine) - Closed Specialty Diagnoses / Procedures Referred By Contact Refer red To Contact Neurology Diagnoses Abnormal findings on diagnostic imaging of other parts of musculoskeletal system Cervicalgia C SPINE MRI April Cummins APRN [facility] [address] [place] [address] [address] [place] [address] Fax: Referral ID Status Reason Start Date Expiration Date Visits V isits Requested Authorized [id number] Closed Consult, 01/13/2021 01/13/2022 6 6 Test & Treat Connection Center Encounter Details Date Type Department Care Team Description 02/01/2021 Office Visit Neurology at [facility] Jed Jc MD Injury of cervical [facility] gunjan cabrera, [address] subsequent encounter [place] [phone] Social History Tobacco Use Types Packs/Day Years [...] Sign Reading Time Taken Comments Blood Pressure 106/58 02/01/2021 7:41 AM EST Pulse 54 02/01/2021 7:41 AM EST Temperature - - Respiratory Rate - - Oxygen Saturation - - Inhaled Oxygen Concentration - - Weight 54.4 kg (120 lb) 02/01/2021 7:41 AM EST Height 167.6 cm (5' 6) 02/01/2021 7:41 AM EST Body Mass Index 19.37 02/01/2021 7:41 AM EST documented in this encounter Progress Notes Jed Jc MD - 02/01/2021 8:00 AM [place] [address] 02/01/2021 Patient name: Kalyn Darnell Case Date of : 1960 Referring provider: April Cummins, [employer] [place] [address] HISTORY REASON FOR REFERRAL/CHIEF COMPLAINT: Neck pain HISTORY OF PRESENTING COMPLAINTS: She says she had a fall backwards slipping on ice fracturing her leg. She also had a hit her head on a cabinet. It happened couple of months ago. She has history of neck surgery in 2008 and fusion surgery done. Now she is having neck and thoracic spine with some difficulty with her breathing. When her head goes backwards her sinus and her throat closes down. She feels a kink in her back, she has shoulder pain. She had MRI of neck done at [facility]. Her daily work is interrupted due to these problems. She has been having headaches., her right eye hurts. She has some subjective feeling of not being able to carry heavy things that she used to before. She has history of prior concussions. She was seeing PT before, lately it hasn't worked much. PMHx: Past Medical History: Diagnosis Date [...] 8.78) performed by Yolanda Still MD at [facility] MAIN OR ??? PRO OPEN TREAT TIBIA SHAFT FX, SCREWS Left 01/08/2020 ORIF TIBIAL SHAFT, PLATE & SCREWS (WRVU 12.54) performed by Yolanda Still MD at [facility] MAIN OR ??? SHOULDER ARTHROSCOPY ??? TIBIA [...] drugs. No flowsheet data found. 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 Review of [...] to Visit Medication Sig Dispense Refill ??? naproxen sodium (ALEVE) 220 mg Capsule Take by mouth. ??? ferrous bis-glycinate chelate (iron bisglycin chelate, bulk,) Powder by [facility].(Non-Drug; Combo Route) route. ??? Thyroid, Pork, (COMMUNITY SERVICES COORDINATOR Thyroid) 15 mg Tablet Take 45 mg by mouth daily. ??? castor oil Oil Oxford Oil, See Instructions, Apply topically, 0 Refill(s) ??? omega 6-ysc-hpl-fish oil (Fish Oil) 100-160-1,000 mg Capsule Take by mouth. ??? ibuprofen (Advil;Motrin) 200 mg Tablet Take 200 mg by mouth every 6 hours as needed for Pain. ??? Ciclesonide (OMNARIS) 50 mcg [place], Non-Aerosol INSTILL TWO SPRAYS IN EACH NOSTRIL TWICE A DAY 12.5 g 0 ??? b complex vitamins Capsule Take 1 capsule by mouth daily. ??? acetylcysteine (NAC ORAL) Take by mouth. ??? IODINE ORAL Take 2.5 mg by mouth daily. ??? FLUoxetine (PROZAC) 10 mg Tablet Take 10 mg by mouth 3 times daily. ??? pyridoxine, vitamin B6, (Vitamin B-6) 100 mg Tablet Daily, 0 Refill(s) ??? oxyCODONE (Roxicodone) 5 mg Tablet Take 1 tablet by mouth every 6 hours as needed for Pain. (Patient not taking: Reported on 05/21/2020) 24 tablet 0 ??? acetaminophen (Tylenol) 500 mg Tablet Take 2 tablets by mouth every 6 hours. (Patient not taking: Reported on 07/23/2020) 90 tablet 1 ??? gabapentin (Neurontin) 300 [...] Reported on 05/21/2020) 40 tablet 0 ??? polyethylene glycol (Miralax) 17 gram Powder in Packet Take 17 g by mouth 2 times daily. (Patient not taking: Reported on 01/23/2020) 14 each 0 ??? senna-docusate (Pericolace) 8.6-50 mg Tablet Take 2 tablets by mouth 2 times daily. (Patient nottaking: Reported on 01/23/2020) 60 tablet 0 ??? Wwljsbdx5-Requnn3-Hhszs therm. (VISBIOME) 112.5 billion cell Capsule Take 3 capsules by mouth daily. (Patient not taking: Reported on 07/23/2020) 90 capsule 3 ??? GLUTATHIONE ORAL Take by mouth daily. No current facility-administered medications on file prior to visit. Allergies: Allergies Allergen Reactions ??? Bee Pollen Other reaction(s): throat closes up ??? Folic Acid ??? Milk Diarrhea ??? Senna ??? Tetracycline Nausea Only ??? Wheat Other (See Comments) Gastrointestinal distress EXAMINATION Vitals: BP 106/58 Pulse 54 Ht 167.6 cm (5' 6) Wt 54.4 kg (120 lb) BMI 19.37 kg/m?? General Examination: Appearance: alert, no distress Cardiovascular: [...] GENERAL THYROID: No results found for: TSH, X0ZYGMA, FREET4, TT4, THYROIDAB, THGAB FolateNo results found for: SFOLATE ESRNo results found for: SEDRATE CRPNo results found for: CRP B12No results found for: QMIJJWBU39 CKNo results found for: CK Angiotensin ConvertaseNo [...] LDLCHOL, LDLDIRECT SHEILA 65No results found for: JUV25JM ANTI GM1,ANTI SGPG, MAG@RESUFAST (MAGAUTOAB,SGPG,MAGWB,GM1AB)@ HEAVY METAL [...] ANNA2, ANNA3, AGNA1, PCA1, PCA2, PCATYPETR, AMPHIPHYSIN, RSBB9IGR, STRIATMSCLAB, CACHABPQTYPE, CACHABNTYPE, ACHRBINDAB, NEUROKCHAB, NMDARECEPTOR, WCQ41UV THROMBOSIS HOMEOCYSTEINENo results found for: HOMOCYSTEINE THROMBOSIS PANELNo results found for: ACAIGM, [id number] FACTOR V LEIDEN No components found for: FACTORVLEIDEN PROTEIN C,SNo components found for: PROTEINC, PROTEINS ANTITHROMBIN IIINo components found for: ANTITHROMBINIII Miscellaneous Send outsNo results found for: MISCSENDOUT, MISCMAYO CT Head: 12/2019: Unremarkable. MRI C spine: [...] DTRs. Recent MRI of C spine reportedly had shown possibility of cervical cord injury. IMPRESSION: Cervical cord injury, h/o neck fusion. PLAN/RECOMMENDATIONS: ??? Her symptoms seems related to cervical cord injury, possibly from the fall. ??? Will try and obtain images from [facility] ??? Referral placed for spine surgery evaluation. ??? May need neck PT after spine surgery evaluation. Continue gabapentin/ muscle relaxants ??? Follow up as needed. Jed Jc MD Department of Neurology [facility] documented in this encounter Plan of Treatment Upcoming Encounters Date Type Specialty Care Team Description 04/03/2022 TH Visit (TeleHealth) Neurology Pippa Jc MD [facility] [address], [place] [address] (Wo rk) Scheduled Procedures Name Priority Associated Diagnoses Date/Time COLONOSCOPY, DIAGNOSTIC Encounter for colorectal cancer screening Scheduled Referrals Name Type Priority Associated Diagnoses Order S chedule Referral to Spine Outpatient Referral Routine Injury of cervic al Ordered: Center spinal cord, 02/01/2021 subsequent encounter documented as of this encounter Visit Diagnoses Diagnosis Injury of cervical spinal cord, subseque nt encounter documented in this encounter Care Teams Ski Molder Relationship Specialty Start Date End Date April Cummins APRN PCP - General Internal Medicine 01/13/[address] [place] [address] documented as of this encounter
--- OUTSIDE RECORDS SUMMARY | 2022-02-15 02:26 | XMS_ITS | Encounter Summary ---
:1960 Author Organization [facility] [place] [address] Care Team Providers Name Role Phone Susan Elise ND Primary Care Provider Reason for Visit Reason Onset Date Comments Other 05/21/2020 Encounter Details Date Type Department Care Team Description 05/21/2020 Telephone Orthopaedics at [facility] Yolanda Still MD Other [facility] [place] [address] ORTHOPAEDIC SURGERY [phone] [place] [id number] (Wo rk) Social History Tobacco Use Types [...] this encounter Miscellaneous Notes Telephone Encounter - Chanell Franklin - 05/21/2020 12:16 PM EDT Upon checkout with patient, I noticed that she had turned around and taken several picture over the providers/staff in the fish bowl of 3C. I noticed it and made sure to advise the patient the it is actually against the HIPAA Compliance and taking picture without permission and within a facility is not permitted. Patient advised it is just for her son, I again advised that [facility] I did advise Kathleen Young and was told to make a note in the chart, I advised the provider on this matter as well. documented in this encounter Plan of Treatment Upcoming Encounters Date Type Specialty Care Team Description 04/03/2022 TH Visit (TeleHealth) Neurology Pippa Jc MD [facility] [address] [place], [place] [address] (Wo rk) Scheduled Procedures Name Priority Associated Diagnoses Date/Time COLONOSCOPY, DIAGNOSTIC Encounter for colorectal cancer screening documented as of this encounter Visit Diagnoses Not on filedocumented in this encounter Care Teams Sound Cutter Relationship Specialty Start Date End Date Susan Elise ND PCP - General Naturopathic Medicine 05/21/20 01/12/21 documented as of this encounter
--- OUTSIDE RECORDS SUMMARY | 2022-02-15 02:26 | XMS_ITS | Encounter Summary ---
:1960 Author Organization [facility] Address [facility] [place] [address] Care Team Providers Name Role Phone Susan Elise ND Primary Care Provider Reason for Referral Physical Therapy (Routine) - Closed Specialty Diagnoses / Procedures Referred By Contact Refer red To Contact Physical Therapy Diagnoses Closed displaced comminuted fracture of shaft of left tibia with routine healing, subsequent encounter [facility] -11-05??? Joseline Lucero PA [facility] Pt [facility] [address] R [address] [place] [address] [place] [address] Referral ID Status Reason Start Date Expiration Date Visits V isits Requested Authorized [id number] Closed Evaluate and 11/05/2020 11/05/2021 1 1 Treat Reason for Visit Reason Comments Follow-up Cont. Pain// Closed displac ed comminuted fracture of shaft of left tibia// Discuss removal of h ardware (01/08/20) -No code given Encounter Details Date Type Department Care Team Description 11/05/2020 Office Visit Orthopaedics at [facility] Yolanda Still, Closed displaced [facility] comminuted fracture [address] [facility] [place] [address] osullivan with routine [phone] ORTHOPAEDIC healing, subseq uent SURGERY encounter (Primary ALLA, WILI 0375 6 Dx) Social History Tobacco Use Types [...] Sign Reading Time Taken Comments Blood Pressure 102/65 11/05/2020 3:14 PM EST Pulse 55 11/05/2020 3:14 PM EST Temperature - - Respiratory Rate - - Oxygen Saturation - - Inhaled Oxygen Concentration - - Weight 59 kg (130 lb 1.1 oz) 11/05/2020 3:14 PM EST Height 165.1 cm (5' 5) 11/05/2020 3:14 PM EST Body Mass Index 21.64 11/05/2020 3:14 PM EST documented in this encounter Progress Notes Joseline Lucero PA - 11/05/2020 3:50 PM EST PATIENT NAME: Kalyn Burgos AGE: 59 y.o. MR#: [id number] DATE OF VISIT: 11/05/2020 CHIEF COMPLAINT: 10 months post left proximal tibia ORIF 01/08/[address] Still HISTORY OF PRESENT ILLNESS: Ms. Carie Burgos is a 59 y.o. female who comes into clinic today for evaluation of the left knee. She was last in to see Dr. Still on 07/23/2020. Since this visit she has been doing ok. She is now walking. She was barely walking in June. She feels that she has not made a lot of progress other than walking. She is not yet able to walk up and down stairs due to pain and weakness. She feels that her hardware is very prominent. She goes to a physical therapist in [facility]. She has one PT that is hands on. She needs to have someone who is pushing on her a bit. She would like to discuss removal of hardware. She is feeling inhibited with the hardware. She did have contralateral distal tibial spiral fracture with hardware. She feels that there is surface tension in the lower left extremity. She has sensitivity to cold. Questions if the plate is inhibiting her ability to go down stairs. Past medical history: Patient Active Problem List [...] ??? Left ulnar fracture 02/16/2016 Medications: ??? naproxen sodium (ALEVE) 220 mg Capsule ??? ferrous bis-glycinate chelate (iron bisglycin chelate, bulk,) Powder ??? Thyroid, Pork, (POSTAL MAIL CARRIER Thyroid) 15 mg Tablet ??? castor oil Oil ??? Ciclesonide (OMNARIS) 50 mcg [place], Non-Aerosol ??? b complex vitamins Capsule ??? acetylcysteine (NAC ORAL) ??? IODINE ORAL ??? FLUoxetine (PROZAC) 10 mg Tablet ??? omega 9-xcl-sfv-fish oil (Fish Oil) 100-160-1,000 mg Capsule ??? pyridoxine, vitamin B6, (Vitamin B-6) 100 mg Tablet ??? oxyCODONE (Roxicodone) 5 mg Tablet ??? ibuprofen (Advil;Motrin) 200 mg Tablet ??? acetaminophen (Tylenol) 500 mg Tablet ??? gabapentin (Neurontin) 300 mg Capsule ??? HYDROmorphone (Dilaudid) 2 mg Tablet ??? polyethylene glycol (Miralax) 17 gram Powder in Packet ??? senna-docusate (Pericolace) 8.6-50 mg Tablet ??? Rbidsqyc3-Jhyzkb8-Vppcb therm. (VISBIOME) 112.5 billion cell Capsule ??? GLUTATHIONE ORAL Allergies: Allergies Allergen Reactions ??? Milk Diarrhea ??? Senna ??? Tetracycline [...] fevers, night sweats or chills Vital signs: Blood pressure 102/65, pulse 55, height 165.1 cm (5' 5), weight 59 kg (130 lb 1.1 oz). Physical exam: Ms. Carie Burgos is a 59 y.o. female who is alert and oriented. She is in no acute discomfort and is resting comfortably in the exam room. Incision Prominent lateral tibial hardware Extension 0, Flexion 135 Supple calf Quad strength 5 Abductor 5 Imaging studies: We reviewed the imaging together XR of the left tib fib Which shows interval sclerosis of the fracture site since prior with no hardware complication. Assessment and plan:: 59 y.o. year-old female left proximal tibia ORIF 01/08/[address] Still. Pt seen and plan discussed in conjunction with Dr. Still and PT Maia. We had a long discussion regarding the nature of Kalyn Burgos's chief complaint. We reviewed the imaging together XR of the left tib fib Which shows interval sclerosis of the fracture site since prior with no hardware complication. Clinically Kalyn Burgos is very weak in her quads, abductors, glutes. Please refer to PT Maia's note for further details. We discussed working hard on strengthening over the next few months. At one year she would be eligible for hardware removal. Her incision will be larger than the original incision, however she will be able to ambulate immediatly. Dr. Still will be placing surgical orders for this. This plan was discussed with the patient and they are in agreement. All of the patient's questions were answered. The patient understand to contact us if they have any other questions or concerns. FU: - refer to [facility] physical therapy - Dr. Still will be placing orders for removal of hardware in December. Joseline Lucero PA-C The above dictation was made with voice recogonition software documented in this encounter Plan of Treatment Upcoming Encounters Date Type Specialty Care Team Description 04/03/2022 TH Visit (TeleHealth) Neurology Pippa Jc MD [facility] er [address] [place], [place] [address] (Wo rk) Scheduled Procedures Name Priority Associated Diagnoses Date/Time COLONOSCOPY, DIAGNOSTIC Encounter for colorectal cancer screening Scheduled Referrals Name Type Priority Associated Diagnoses Order S chedule Referral to Outpatient Referral Routine Closed displaced Orde red: Physical Therapy comminuted fracture 10/26 of shaft of left tibia with routine healing, subsequent encounter documented as of this encounter Results XR [...] Electronically signed by: Gordon Raygoza MD , [facility] ([phone]), at 11/05/2020 2:50 PM Yolanda Still MD IMG DX ORDERABLES documented in this encounter Visit Diagnoses Diagnosis Closed displaced comminuted fracture of shaft of left tibia with routine healing, subsequent encounter - Primary Closed displaced comminuted fracture of shaft of left tibia with routine healing, subsequent encounter documented in this encounter Care Teams Resident Medical Officer Relationship Specialty Start Date End Date Susan Elise ND PCP - General Naturopathic Medicine 05/21/20 01/12/21 documented as of this encounter
--- OUTSIDE RECORDS SUMMARY | 2022-02-15 02:26 | XMS_ITS | Encounter Summary ---
:1960 Author Organization [facility] [place] [address] Care Team Providers Name Role Phone April Cummins APRN Primary Care Provider Reason for Visit Reason Onset Date Comments Other 04/30/2020 Encounter Details Date Type Department Care Team Description 04/30/2020 Telephone Orthopaedics at [facility] Kathie Cid PA Other [facility] [place] [address] ORTHOPAEDIC SURGERY [phone] [place] [address] (Wo rk) Social History Tobacco Use Types [...] this encounter Miscellaneous Notes Telephone Encounter - Daniela Jane - 04/30/2020 10:12 AM EDT PT called today to see if we had received the x-rays that were done at [facility]. Advised that we have not received them as of today. [place], [place] PH: [phone] FAX: [phone] [employer] PH: [phone] FAX: [phone] IMG PUSH NUCLEUS/ICA Faxed request for image push. PT would like a call back once x-rays have been received to advise if she can WB documented in this encounter Plan of Treatment Upcoming Encounters Date Type Specialty Care Team Description 04/03/2022 TH Visit (TeleHealth) Neurology Pippa Jc MD [facility] [place] [address] (Wo rk) Scheduled Procedures Name Priority Associated Diagnoses Date/Time COLONOSCOPY, DIAGNOSTIC Encounter for colorectal cancer screening documented as of this encounter Visit Diagnoses Not on filedocumented in this encounter Care Teams Land Acquisition Specialist Relationship Specialty Start Date End Date April Cummins APRN PCP - General Internal Medicine 01/06/20 05/20/[address] [place] [address] documented as of this encounter
--- OUTSIDE RECORDS SUMMARY | 2022-02-15 02:26 | XMS_ITS | Encounter Summary ---
:1960 Author Organization [place] [address] Care Team Providers Name Role Phone PlacidoYee Tanvir HENLEY Primary Care Provider Reason for Referral Physical Therapy (Routine) - Specialty Diagnoses / Procedures Referred By Contact Refer red To Contact Diagnoses Spondylosis of cervical region without myelopathy or radiculopathy Amando Mcfarland MD [facility] [place] [address] Referral ID Status Reason Start Date Expiration Date Visits V isits Requested Authorized [id number] Evaluate and 02/24/2021 08/23/2021 1 1 Treat Reason for Visit Reason Comments Cervicalgia with right arm problem Consultation (Routine) - Closed Specialty Diagnoses / Procedures Referred By Contact Refer red To Contact [facility] Diagnoses Injury of cervical spinal cord, subsequent encounter Spine - Cervical foraminal stenosis/ MRI 01/04/21 in eDH/ ?CT *AMP or Jed Pelletier MD [facility] [place] [address] [place] [address] Phone: Fax: Referral ID Status Reason Start Date Expiration Date Visits V isits Requested Authorized [id number] Closed Consult, 02/01/2021 02/01/2022 1 1 Test & Treat Encounter Details Date Type Department Care Team Description 02/24/2021 Office Visit [facility] Amando Mcfarland, Sp ondylosis of cervical at [facility] region without [facility] myelopath y or [address], [place] [facility] [address] [place] [address] [phone] Social History Tobacco Use Types Packs/Day Years [...] Sign Reading Time Taken Comments Blood Pressure 103/50 02/24/2021 10:08 AM EDT Pulse 58 02/24/2021 10:08 AM EDT Temperature - - Respiratory Rate - - Oxygen Saturation - - Inhaled Oxygen Concentration - - Weight 56.7 kg (125 lb) 02/24/2021 10:08 AM EDT Height 167.6 cm (5' 6) 02/24/2021 10:08 AM EDT Body Mass Index 20.18 02/24/2021 10:08 AM EDT documented in this encounter Progress Notes Amando Mcfarland MD - 02/24/2021 10:20 AM EDT Chief complaint: Neck pain History of present illness: Ms. Burgos is a 60-year-old female whom I am seeing in consultation for Dr. Jc in regards to her right-sided neck pain that radiates behind her right ear and to her right occiput. She has had neck pain on and off for many years and [place] did [place]. Her current symptoms came on worse after striking her head on a cabinet sometime last year. She does not have pain radiating to her arms. She has some focal right lateral elbow pain that she attributes to tendinitis. She reports mild tingling in her fingertips that have been present for many years. She feels as though her blow machine tender starch spraying strength is decreased some lately and she is dropping items somewhat more frequently, though her fine motor skills are good. 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 Her pain tends be worse with impact activities such as jumping up and down on a trampoline. He gets relief with rest. She has not any change in her balance. She denies constitutional symptoms. She has not done any physical therapy for her neck. She used to do become yoga but has had to stop that during the pandemic. She takes Aleve with minimal benefit. She has not had any cervical injections. Past medical history: Kidney stones, Danny's thyroiditis Past surgical history: ORIF left tibial plateau fracture, ACDF as above Medications and allergies were reviewed and are in ED H. Family history: None Social history: The patient continues to work as a painter decorator/artist. This work has become harder to do with her neck pain. She does not smoke or drink. Review of systems: All negative except musculoskeletal as above. Physical exam Patient is 5 foot 6 125 pounds, with a BMI of 20 General: Patient is comfortable, no acute distress Neck: Her neck is somewhat tender to palpation over her paraspinal muscles on the right. She flex 30 degrees times and 40 degrees, rotate 50 degrees to one side bend 20 degrees. Neurological exam: She walks a normal gait. She can perform tandem gait. Motor exam reveals 5/5 strength of all upper extremity motors. She has mild tingling in her fingertips. Reflexes are 2/4 in the upper extremities, 3/4 at the knees, 2/4 at the ankles. Spurling's negative bilaterally. She asael positive Vish sign consistently on the right and intermittently on the left. She has no clonus. Shoulder exam: She has normal, painless range of motion of both shoulders. Vascular exam: She has palpable radial pulses bilaterally. Imaging: AP and lateral flexion-extension x-rays of the cervical spine from 02/24/2021 were reviewed.These show degenerative changes at C3-C4 and C6/C7, adjacent to her prior fusion, which appears solid. There is no instability. MRI of the cervical spine from 01/04/2021 was reviewed. This shows a disc osteophyte complex at C3-C4that abuts the ventral aspect of the cord but does not cause significant cord compression. There issignal change in the cord at C4-C5 but no compression at this level which has been decompressed and fused. At C6-C7, she is relatively severe bilateral foraminal narrowing. At C7-T1, there is a central disc bulge that does not cause neural compression. Assessment/plan: Ms. Burgos is a 60-year-old female who presents with worsening neck pain in the setting of a prior C4-C6 ACDF for myelopathy. She does have hyperreflexia and positive Vish signs, and this is likely related to the myelomalacia seen at the C4-5 level, which is chronic and was addressed by her ACDF. There is no cord compression at this level. She has a disc osteophyte complex at C3-C4 that abuts the cord but does not cause significant cord compression, and I do not think that is currently symptomatic. In terms of treating her neck pain, I gave her a referral for physical therapy and recommended that she continue with the Aleve. If she wants to discuss injection options, she should call us to set up a comprehensive pain evaluation in the pain clinic. I see no need for surgery at this point. documented in this encounter Plan of Treatment Upcoming Encounters Date Type Specialty Care Team Description 04/03/2022 TH Visit (TeleHealth) Neurology Pippa Jc MD [facility] [place] [address] (Wo rk) Scheduled Procedures Name Priority Associated Diagnoses Date/Time COLONOSCOPY, DIAGNOSTIC Encounter for colorectal cancer screening Scheduled Referrals Name Type Priority Associated Diagnoses Order S chedule Referral to Outpatient Referral Routine Spondylosis of Ordere d: Physical Therapy cervical region 02/25/20 without myelopathy or radiculopathy documented as of this encounter Visit Diagnoses Diagnosis Spondylosis of cervical region without m yelopathy or radiculopathy Cervical spondylosis without myelopathy documented in this encounter Care Teams Naphthalene Operator Relationship Specialty Start Date End Date April Cummins APRN PCP - General Internal Medicine 01/13/21 [address] [place] [address] documented as of this encounter
--- OUTSIDE RECORDS SUMMARY | 2022-02-15 02:26 | XMS_ITS | Encounter Summary ---
:1960 Author Organization [facility] Address [address] [facility] [place] [address] Care Team Providers Name Role Phone April Cummins APRN Primary Care Provider Encounter Details Date Type Department Care Team Description 01/23/2020 Hospital Encounter XRay at [facility] Yolanda Still Closed displaced [address] Carmen MD comminuted fracture [place], [place] [facility] [place] [id number] osullivan with routine [phone] ORTHOPAEDIC healing, subseq [place] [address] Social History Tobacco Use Types Packs/Day Years [...] End Date castor oil Oil 0 01/18/2020 [place]inqu[place]in Oil, See Instructions, Apply topically, 0 Refill(s) pyridoxine, vitamin B6, 0 01/18/2020 (B-6) 100 mg Tablet Daily, 0 Refill(s) polyethylene glycol Take 17 g by mouth 2 14 each 0 2019 (Miralax) 17 gram times daily. Powder in Packet Ciclesonide (OMNARIS) INSTILL TWO SPRAYS IN 12.5 g 0 50 mcg [place], EACH NOSTRIL TWICE A Non-Aerosol DAY Ajabjowh7-Szitxi1-Yxhvc Take 3 capsules by 90 capsule 3 02/2019 therm. (VISBIOME) 112.5 mouth daily. billion cell CapsuleIndications: Small intestinal bacterial overgrowth, Irritable bowel syndrome with diarrhea b complex vitamins Take 1 capsule by mouth daily. With 0 Capsule folic acid B-1,2,3,5,12 Biotin acetylcysteine (NAC Take by mouth. 0 ORAL) GLUTATHIONE ORAL Take by mouth daily. 0 IODINE ORAL Take 2.5 mg by mouth 0 daily. FLUoxetine (PROZAC) 10 Take 10 mg by mouth 3 0 mg Tablet times daily. omega 0-lpj-rxm-fish Take by mouth. 0 01/18/2020 01/27/2022 oil (Fish Oil) 100-160-1,000 mg Capsule ibuprofen Take 200 mg by mouth 0 02/2022 (Advil;Motrin) 200 mg every 6 hours as Tablet needed for Pain. enoxaparin (LOVENOX) 30 Inject 0.3 mLs 58 Syringe 0 01/09/20 20 02/07/2020 mg/0.3 mL Syringe subcutaneously 2 times daily for 29 days. acetaminophen (Tylenol) Take 2 tablets by 90 tablet 1 01/0901/27/2022 500 mg Tablet mouth every 6 hours. gabapentin (Neurontin) Take 1 capsule by 60 capsule 0 201901/27/2022 300 mg Capsule mouth 3 times daily. HYDROmorphone Take 1-2 tablets by 40 tablet 0 01/09/2020 (Dilaudid) 2 mg Tablet mouth every 4 hours as needed for Pain (1 tab for moderate pain (4-6) or 2 tabs for severe pain (7-10)). senna-docusate Take 2 tablets by 60 tablet 0 01/09/202002/2022 (Pericolace) 8.6-50 mg mouth 2 times daily. Tablet cyclobenzaprine Take 1 tablet by 10 tablet 0 01/09/2020 (Flexeril) 10 mg Tablet mouth 3 times daily as needed for Muscle spasms. documented as of this encounter Plan of Treatment Upcoming Encounters Date Type Specialty Care Team Description 04/03/2022 TH Visit (TeleHealth) Neurology Pippa Jc MD [facility] er [address] [place], [place] [address] (Wo rk) Scheduled Orders Name Type Priority Associated Diagnoses Order S chedule XR Knee 1-2 Views Imaging Routine Closed displaced 1 Occu rrences starting Left (Generic) comminuted fracture of until shaft of left tibia with routine healing, subsequent encounter Scheduled Procedures Name Priority Associated Diagnoses Date/Time COLONOSCOPY, DIAGNOSTIC Encounter for colorectal cancer screening documented as of this encounter Procedures Procedure Name Priority Date/Time Associated Diagnosis Comme nts XR TIBIA FIBULA Routine 01/23/2020 9:47 AM Closed displaced R esults for this LEFT [...] please contact e number below. ? Narrative 01/23/2020 11:48 AM EST EXAMINATION: XR [...] this report, please contact e number below. Yolanda Still MD IMG DX ORDERABLES documented in this encounter Visit Diagnoses Diagnosis Closed displaced comminuted fracture of shaft of left tibia with routine healing, subsequent encounter documented in this encounter Care Teams Box Closing Machine Operator Relationship Specialty Start Date End Date April Cummins APRN PCP - General Internal Medicine 01/06/20 05/20/[address] [place] [place] [address] documented as of this encounter
--- OUTSIDE RECORDS SUMMARY | 2022-02-15 02:26 | XMS_ITS | Encounter Summary ---
:1960 Author Organization [facility] Address [facility] [place] [address] Care Team Providers Name Role Phone Rosita Cumminsyce Tanvri HENLEY Primary Care Provider Encounter Details Date Type Department Care Team Description 01/23/2020 Laboratory Appointment Lab 3L [facility] S/p left tibia ORIF [facility] for tibial plateau [facility] fracture 01/08/[address] [place] [address] Social History Tobacco Use Types Packs/Day Years [...] Visit (TeleHealth) Neurology Pippa Jc MD [facility] [place] [address] (Wo rk) Scheduled Procedures Name Priority Associated Diagnoses Date/Time COLONOSCOPY, DIAGNOSTIC Encounter for colorectal cancer screening documented as of this encounter Procedures Procedure Name Priority Date/Time Associated Diagnosis Comme nts HEMOGRAM Routine 01/23/2020 11:04 AM S/p left tibia ORIF R esults for this [facility] for tibial plateau procedure are in the fracture 01/08/2020 by result s section. Dr. Still documented in this encounter Results (ABNORMAL) Hemogram (01/23/2020 11:04 AM EST) Analysis Performed At Patho logist Time Signature WBC 5.0 4.0 - 9.5 [facility] x[facility] LABORATORY RBC 3.15 (L) 4.00 - [facility] 5.21 [facility] x10(6)/[facility] LABORATORY Hemoglobin 9.6 (L) 11.7 - [facility] 15.5 gm/dL [facility] LAB[facility] Hematocrit 30.3 (L) 35.7 - [facility] 45.8 % [facility] MCV 96.2 (H) 82.6 - [facility] 94.4 [facility] LABORATORY MCH 30.5 27.1 - [facility] 32.0 pg [facility] LABORATORY MCHC 31.7 31.7 - [facility] 35.0 gm/dL [facility] LABOR[facility] Platelets 508 (H) 145 - 357 [facility] x10(3)/[facility] LABORATORY RDWSD 47.8 (H) 37.0 - [facility] 46.0 [facility] LABORATORY RDWCV 13.7 11.5 - [facility] DEMARCO 14.1 % [facility] LABORATORY MPV 8.9 7.6 - 12.9 [facility] LABORATORY nRBC % Auto 0.0 % [facility] LABORATORY nRBC Abs Auto 0.000 0.000 - [facility] 0.000 [facility] x10(3)/[facility] LABORATORY Specimen Anatomical Collection Method Collection Time Receive d Time (Source) Location / / Volume Laterality Blood specimen 01/23/2020 11:04 0 (specimen) AM EST 11:21 AM EST Resulting Agency Comment Spec In Lab Floyd Grey MD HEMATOLOGY ORDERABLES Performing Organization Address City/State/[place] [address] documented in this encounter Visit Diagnoses Diagnosis S/p left tibia ORIF for tibial plateau f racture 01/08/[address] Still documented in this encounter Care Teams Vat Packer Relationship Specialty Start Date End Date April Cummins APRN PCP - General Internal Medicine 01/06/20 05/20/[address] [place] [address] documented as of this encounter
--- OUTSIDE RECORDS SUMMARY | 2022-02-15 02:26 | XMS_ITS | Encounter Summary ---
:1960 Author Organization [facility] [place] [address] Care Team Providers Name Role Phone Rosita Cumminsyce Tanvir HENLEY Primary Care Provider Encounter Details Date Type Department Care Team Description 03/23/2020 Ancillary Procedure Radiology Library at Yolanda Still [facility] [place] [address] ORTHOPAEDIC SURGERY [phone] [place], [place] [address] (Wo rk) Social History Tobacco [...] Visit (TeleHealth) Neurology Pippa Jc MD [facility] [place], [place] [address] (Wo rk) Scheduled Procedures Name Priority Associated Diagnoses Date/Time COLONOSCOPY, DIAGNOSTIC Encounter for colorectal cancer screening documented as of this encounter Procedures Procedure Name Priority Date/Time Associated Diagnosis Comme nts FILM LIBRARY Routine 03/23/2020 2:34 PM Results for this STORAGE ONLY DX EDT procedure ar e in ANKLE the results section. documented in this encounter Results Film Library- Storage Only DX Ankle (03/23/2020 2:34 PM EDT) Specimen (Source) Anatomical Location Collection Method / Collectio n Time Received Time / Laterality Volume Narrative RAD - 03/23/2020 2:34 PM EDT This exam is auto-finalizing. It's purpo se is for storage only. Yolanda Still MD IMG FILM LIBRARY ORDERABLES Performing Organization Address City/State/ZIP Code Phon e Number [place], [place] documented in this encounter Visit Diagnoses Not on filedocumented in this encounter Care Teams Convention Planner Relationship Specialty Start Date End Date April Cummins APRN PCP - General Internal Medicine 01/06/20 05/20/[address] [place] [address] documented as of this encounter
--- OUTSIDE RECORDS SUMMARY | 2022-02-15 02:26 | XMS_ITS | Encounter Summary ---
:1960 Author Organization [facility] [place] [address] Care Team Providers Name Role Phone Susan Elise ND Primary Care Provider Reason for Visit - Closed Specialty Diagnoses / Procedures Referred By Contact Refer red To Contact Procedures April Cummins APRN Film Library- Storage Only DX [address] [place] [address] Referral ID Status Reason Start Date Expiration Date Visits Requ ested Visits Authorized [id number] Closed 02/01/2021 02/01/2022 1 1 Encounter Details Date Type Department Care Team Description 12/21/2020 Ancillary Procedure Radiology Library at April Cummins [facility] IMPLEMENTATION MANAGER [facility] [address] [place] [address] [phone] (Wo rk) Social History Tobacco Use Types [...] TH Visit (TeleHealth) Neurology Pippa Jc MD [facility] [address] [place] [address] (Wo rk) Scheduled Procedures Name Priority Associated Diagnoses Date/Time COLONOSCOPY, DIAGNOSTIC Encounter for colorectal cancer screening documented as of this encounter Procedures Procedure Name Priority Date/Time Associated Diagnosis Comme nts FILM LIBRARY Routine 12/21/2020 12:05 AM Results for this STORAGE ONLY DX EST procedure ar e in SKULL the results section. documented in this encounter Results Film Library- Storage Only DX Skull (12/21/2020 12:05 AM EST) Specimen (Source) Anatomical Location Collection Method / Collectio n Time Received Time / Laterality Volume Narrative RAD - 02/01/2021 3:48 PM EST This exam is auto-finalizing. It's purpo se is for storage only. April Cummins APRN [place] FILM LIBRARY ORDERABLES Performing Organization Address City/State/ZIP Code Phon e Number [place], [place] documented in this encounter Visit Diagnoses Not on filedocumented in this encounter Care Teams Used Car Lot Attendant Relationship Specialty Start Date End Date Susan Elise ND PCP - General Naturopathic Medicine 05/21/20 01/12/21 documented as of this encounter
--- OUTSIDE RECORDS SUMMARY | 2022-02-15 02:26 | XMS_ITS | Encounter Summary ---
:1960 Author Organization [facility] [address] Care Team Providers Name Role Phone April Cummins APRN Primary Care Provider Encounter Details Date Type Department Care Team Description 02/14/2021 Orders Only [facility] at Amando Mcfarland MD [facility] [place] [address] [place] [address] [phone] (Wo rk) Social History Tobacco Use Types [...] (TeleHealth) Neurology Pippa Jc MD [facility] er [place], [place] [address] (Wo rk) Scheduled Procedures Name Priority Associated Diagnoses Date/Time COLONOSCOPY, DIAGNOSTIC Encounter for colorectal cancer screening documented as of this encounter Visit Diagnoses Not on filedocumented in this encounter Care Teams Glass Cleaning Machine Tender Relationship Specialty Start Date End Date April Cummins APRN PCP - General Internal Medicine 01/13/[address] [place] [address] documented as of this encounter
--- OUTSIDE RECORDS SUMMARY | 2022-02-15 02:26 | XMS_ITS | Encounter Summary ---
:1960 Author Organization [facility] [place] [address] Care Team Providers Name Role Phone Rosita Cumminsyce Tanvir HENLEY Primary Care Provider Encounter Details Date Type Department Care Team Description 04/06/2020 Ancillary Procedure Radiology Library at Yolanda Still [facility] [place] [address] ORTHOPAEDIC SURGERY [phone] [place], [place] [address] (Wo rk) Social History Tobacco [...] TH Visit (TeleHealth) Neurology Pippa Jc MD [facility] er [address] [place], [place] [address] (Wo rk) Scheduled Procedures Name Priority Associated Diagnoses Date/Time COLONOSCOPY, DIAGNOSTIC Encounter for colorectal cancer screening documented as of this encounter Procedures Procedure Name Priority Date/Time Associated Diagnosis Comme nts FILM LIBRARY Routine 04/06/2020 3:17 PM Results for this STORAGE ONLY DX EDT procedure ar e in LOWER EXTREMITY the results section. documented in this encounter Results Film Library- Storage Only DX Lower Extremity (04/06/2020 3:17 PM EDT) Specimen (Source) Anatomical Location Collection Method / Collectio n Time Received Time / Laterality Volume Narrative DENISE - 04/06/2020 3:17 PM EDT This exam is auto-finalizing. It's purpo se is for storage only. Yolanda Still MD IMG FILM LIBRARY ORDERABLES Performing Organization Address City/State/ZIP Code Phon e Number [place], [place] documented in this encounter Visit Diagnoses Not on filedocumented in this encounter Care Teams Well Service Pump Equipment Operator Relationship Specialty Start Date End Date April Cummins APRN PCP - General Internal Medicine 01/06/20 05/20/[address] [place] [address] documented as of this encounter
--- OUTSIDE RECORDS SUMMARY | 2022-02-15 02:26 | XMS_ITS | Encounter Summary ---
:1960 Author Organization [place] [address] Care Team Providers Name Role Phone PlacidoYee Tanvir HENLEY Primary Care Provider Encounter Details Date Type Department Care Team Description 01/09/2020 Notes Only Orthopa[facility] [place] [facility] [place] [address] Social History Tobacco Use Types Packs/Day Years Used Date Never Smoker Smokeless Tobacco: Never Used Comments: Exposure to smoking in the glenn e until the age of 16 Alcohol Use Standard Drinks/Week Comments No 0 (1 standard drink = 0.6 oz pure alcoho l) Sex Assigned at Date Recorded Not on file documented as of this encounter Progress Notes Sr Osmani [place] - 01/09/2020 2:38 PM EST Images from the original note were not included. Study Title: Major Extremity Trauma Research Consortium (METRC): PREVENTion of Clot in Orthopaedic Trauma (PREVENT CLOT): A Randomized Pragmatic Trial Comparing the Complications and Safety of Blood Clot Prevention Medicines Used in Orthopaedic Trauma Patients Fire Coordinator: Yolanda Heaton number: [id number] Visit: Baseline Date: 01/09/2020 Consent Time: 2:03 PM Subject Number: [id number] Informed consent for the above entitled study was reviewed with subject in detail. The details of the study, length of study, and risks were reviewed with subject. Upon review, subject verbalized adequate understanding of the protocol and signed the consent along with me. No study procedures were initiated prior to signing the consent. A copy was provided to subject, and the original consent will bekept with the study chart. Subject MEETS all Inclusion criteria and does NOT meet any Exclusion criteria. Doctor:Tessy informed us the subject meets all Inclusion criteria and none of the exclusion criteria. The subject was enrolled and randomized to: Lovenox 30 mg subcutaneously BID. Thank You Julia Dumont for writing the order. documented in this encounter Plan of Treatment Upcoming Encounters Date Type Specialty Care Team Description 04/03/2022 TH Visit (TeleHealth) Neurology Pippa Jc MD [facility] [address] [place], [place] [address] (Wo rk) Scheduled Procedures Name Priority Associated Diagnoses Date/Time COLONOSCOPY, DIAGNOSTIC Encounter for colorectal cancer screening documented as of this encounter Visit Diagnoses Not on filedocumented in this encounter Care Teams Lead Person Relationship Specialty Start Date End Date April Cummins APRN PCP - General Internal Medicine 01/06/20 05/20/20 [address] [place] [address] documented as of this encounter
--- OUTSIDE RECORDS SUMMARY | 2022-02-15 02:26 | XMS_ITS | Encounter Summary ---
:1960 Author Organization [employer] Address [facility] [place] [address] Care Team Providers Name Role Phone Susan Elise ND Primary Care Provider Encounter Details Date Type Department Care Team Description 06/17/2020 Orders Only Orthopaedics at [facility] Yolanda Still, Closed displaced [facility] MD comminuted fracture Drive [facility] [place] [address] osullivan with routine [phone] ORTHOPAEDIC healing, subseq uent SURGERY encounter [place], [place] [address] Social History Tobacco Use Types [...] TH Visit (TeleHealth) Neurology Pippa Jc MD [facility] er [place], [place] [address] (Wo rk) Scheduled Procedures Name Priority Associated Diagnoses Date/Time COLONOSCOPY, DIAGNOSTIC Encounter for colorectal cancer screening documented as of this encounter Results XR Tibia Fibula Left (Generic) (07/23/2020 10:37 AM EDT) Anatomical Region Laterality Modality Left Digital Radiography Specimen (Source) Anatomical Location Collection Method / Collectio n Time Received Time / Laterality Volume Impressions 07/23/2020 11:01 AM EDT Healed proximal fractures of the tibia and fibula. Intact fixation hardware. Thank you for letting us participate in the care of this patient. For questions regarding this report, please contact e number below. ? Electronically signed by: Benjamin sanderson [facility] ([phone]), at 07/23/2020 11:01 AM Narrative 07/23/2020 11:01 AM EDT EXAMINATION: XR TIBIA FIBULA LEFT (GENERIC) CLINICAL HISTORY: left tib/fib fx f/u on healing TECHNIQUE: 2 views LEFT tibia and fibula COMPARISON: May 21, 2020 FINDINGS: Evidence of further healing of the proxi mal tibial fracture with increased sclerosis and obliteration of the fractu re line. The alignment is unchanged. The lateral fixation hardware is intact. Oss eous bridging of the proximal fibular fracture. Procedure Note Benjamin Figueroa MD - 07/23/2020For matting of this note might be different from the original. EXAMINATION: XR TIBIA FIBULA LEFT (GENER IC) CLINICAL HISTORY: left tib/fib fx f/u on healing TECHNIQUE: 2 views LEFT tibia and fibula COMPARISON: May 21, 2020 FINDINGS: Evidence of further healing of the proxi mal tibial fracture with increased sclerosis and obliteration of the fractu re line. The alignment is unchanged. The lateral fixation hardware is intact. Oss eous bridging of the proximal fibular fracture. IMPRESSION Healed proximal fractures of the tibia a nd fibula. Intact fixation hardware. Thank you for letting us participate in the care of this patient. For questions regarding this report, please contact e number below. Electronically signed by: Benjamin sanderson [facility] ([phone]), at 07/23/2020 11:01 AM Yolanda Carmen Gitajn MD IMG DX ORDERABLES documented in this encounter Visit Diagnoses Diagnosis Closed displaced comminuted fracture of shaft of left tibia with routine healing, subsequent encounter Closed displaced comminuted fracture of shaft of left tibia with routine healing, subsequent encounter Right foot pain Pain in limb documented in this encounter Care Teams Beam Press Operator Relationship Specialty Start Date End Date Susan Elise ND PCP - General Naturopathic Medicine 05/21/20 01/12/21 documented as of this encounter
--- OUTSIDE RECORDS SUMMARY | 2022-02-15 02:26 | XMS_ITS | Encounter Summary ---
:1960 Author Organization [facility] [place] [address] Care Team Providers Name Role Phone April Cummins APRN Primary Care Provider Encounter Details Date Type Department Care Team Description 03/22/2020 Telephone Orthopaedics at [place] Richa Bear [address] [address] Social History Tobacco Use Types Packs/Day Years Used Date Never Smoker Smokeless Tobacco: Never Used Comments: Exposure to smoking in [place] the age of 16 Alcohol Use Standard Drinks/Week Comments No 0 (1 standard drink = 0.6 oz pure alcoho l) Sex Assigned at Date Recorded Not on file documented as of this encounter Miscellaneous Notes Telephone Encounter - Tasha Bear - 03/22/2020 3:53 PM EDT Pt called in to the ATC line requesting an XR be scheduled for her PT. Kalyn Burgos states the PTneeds a recent XR. Upon review of her chart, Kalyn Burgos has a scheduled XR appointment for 04/16/20. Attempted to call pt back 2x with no answer. Pt's voicemail is unmarked. documented in this encounter Plan of Treatment Upcoming Encounters Date Type Specialty Care Team Description 04/03/2022 TH Visit (TeleHealth) Neurology Pippa Jc MD [facility] [address] [place], [place] [address] (Wo rk) Scheduled Procedures Name Priority Associated Diagnoses Date/Time COLONOSCOPY, DIAGNOSTIC Encounter for colorectal cancer screening documented as of this encounter Visit Diagnoses Not on filedocumented in this encounter Care Teams Voting Machine Mechanic Relationship Specialty Start Date End Date April Cummins APRN PCP - General Internal Medicine 01/06/20 05/20/[address] [place] [address] documented as of this encounter
--- OUTSIDE RECORDS SUMMARY | 2022-02-15 02:26 | XMS_ITS | Encounter Summary ---
:1960 Author Organization [facility] [place] [address] Care Team Providers Name Role Phone Susan Elise ND Primary Care Provider Encounter Details Date Type Department Care Team Description 2020 Telephone Orthopaedics at [facility] Joseline Lucero [place] [facility] [place] [address] ORTHOPAEDIC SURGERY [phone] [place] [address] (Wo rk) Social History Tobacco Use [...] this encounter Miscellaneous Notes Telephone Encounter - Shama Rogel - 2020 9:26 AM EST Pt would like PT referral to be sent to [facility] at [phone] Referral wassent as requested no further question or concerns at this time. documented in this encounter Plan of Treatment Upcoming Encounters Date Type Specialty Care Team Description 04/03/2022 TH Visit (TeleHealth) Neurology Pippa Jc MD [facility] [place] [address] (Wo rk) Scheduled Procedures Name Priority Associated Diagnoses Date/Time COLONOSCOPY, DIAGNOSTIC Encounter for colorectal cancer screening documented as of this encounter Visit Diagnoses Not on filedocumented in this encounter Care Teams Computational Linguist Relationship Specialty Start Date End Date Susan Elise, SUDEEP PCP - General Naturopathic Medicine 05/21/20 documented as of this encounter
--- OUTSIDE RECORDS SUMMARY | 2022-02-15 02:26 | XMS_ITS | Encounter Summary ---
:1960 Author Organization [facility] [place] [address] Care Team Providers Name Role Phone April Cummins APRN Primary Care Provider Encounter Details Date Type Department Care Team Description 03/23/2020 Orders Only Orthopaedics at [facility] Yolanda Still, Closed displaced [facility] MD comminuted fracture Drive [facility] [place] [address] osullivan with routine [phone] ORTHOPAEDIC healing, subseq uent SURGERY encounter [place], [place] [address] Social History Tobacco Use Types Packs/Day Years Used Date Never Smoker Smokeless Tobacco: Never Used Comments: [place] the age of 16 Alcohol Use Standard Drinks/Week Comments No 0 (1 standard drink = 0.6 oz pure alcoho l) Sex Assigned at Date Recorded Not on file documented as of this encounter Miscellaneous Notes Addendum Note - Flavia Tatum - 03/23/2020 8:36 AM EDT Addended by: FLAVIA TATUM on: 03/23/2020 10:58 AM Modules accepted: Orders documented in this encounter Plan of Treatment Upcoming Encounters Date Type Specialty Care Team Description 04/03/2022 TH Visit (TeleHealth) Neurology Pippa Jc MD [facility] er [place], [place] [address] (Wo rk) Scheduled Procedures Name Priority Associated Diagnoses Date/Time COLONOSCOPY, DIAGNOSTIC Encounter for colorectal cancer screening documented as of this encounter Visit Diagnoses Diagnosis Closed displaced comminuted fracture of shaft of left tibia with routine healing, subsequent encounter documented in this encounter Care Teams Train Conductor Relationship Specialty Start Date End Date April Cummins APRN PCP - General Internal Medicine 01/06/20 05/20/[address] [place] [address] documented as of this encounter
--- OUTSIDE RECORDS SUMMARY | 2022-02-15 02:26 | XMS_ITS | Encounter Summary ---
:1960 Author Organization [facility] Address [address] [place] [address] Care Team Providers Name Role Phone April Cummins APRN Primary Care Provider Reason for Referral Physical Therapy (Routine) - Specialty Diagnoses / Procedures Referred By Contact Refer red To Contact Diagnoses Closed displaced comminuted fracture of shaft of left tibia with routine healing, subsequent encounter Carrie Lyon MD [facility] D [place] [address] Referral ID Status Reason Start Date Expiration Date Visits V isits Requested Authorized [id number] Evaluate and 01/23/2020 07/21/2020 12 12 Treat Reason for Visit Reason Comments Establish Care L proximal tibia Fx 01/06/20 ORIF 01/08/20 Encounter Details Date Type Department Care Team Description 01/23/2020 Office Visit Orth[facility]edics [place] [facility] Yolanda Still, S/p left tibia ORIF [facility] for tibial plateau Drive [facility] fracture 01/08/2020 [place] [address] Still (Primary [phone] ORTHOPAEDIC Dx) SURGERY [place], [place] [address] Social History Tobacco Use Types [...] Sign Reading Time Taken Comments Blood Pressure 105/60 01/23/2020 10:03 AM EST Pulse 71 01/23/2020 10:03 AM EST Temperature - - Respiratory Rate - - Oxygen Saturation - - Inhaled Oxygen Concentration - - Weight 56.7 kg (125 lb) 01/23/2020 10:03 AM EST Height 165.1 cm (5' 5) 01/23/2020 10:03 AM EST Body Mass Index 20.8 01/23/2020 10:03 AM EST documented in this encounter Progress Notes Kathie Cid PA - 01/23/2020 10:20 AM EST PATIENT NAME: Kalyn Burgos AGE: 59 y.o. MR#: [id number] DATE OF VISIT: 01/23/2020 CHIEF COMPLAINT: left proximal tibia ORIF 01/08/[address] Still HISTORY OF PRESENT ILLNESS: Ms. Carie Burgos is a 59 y.o. female who comes into clinic today for evaluation of the left leg. Had fall while skiing 01/06/2020. Had ex-fix paced initially. Had ORIF by Dr. Still 01/08/2020. Has been NWB. Has been compliant with this. Has been using [place]. Taking oxycodone and tylenol for pain. Denies numbness, tingling, change in sensation. Denies f/c/ns. Overall, the patient is doing well. Specifically, her pain is decreasing daily and she is working onpassive and active knee ROM. Past medical history: Patient Active Problem List [...] ??? Left ulnar fracture 02/16/2016 Medications: ??? acetaminophen (Tylenol) 500 mg Tablet ??? enoxaparin (LOVENOX) 30 mg/0.3 mL Syringe ??? gabapentin (Neurontin) 300 mg Capsule ??? HYDROmorphone (Dilaudid) 2 mg Tablet ??? polyethylene glycol (Miralax) 17 gram Powder in Packet ??? senna-docusate (Pericolace) 8.6-50 mg Tablet ??? cyclobenzaprine (Flexeril) 10 mg Tablet ??? Ciclesonide (OMNARIS) 50 mcg [place], Non-Aerosol ??? Rykzidfx8-Mbquos2-Tzald therm. (VISBIOME) 112.5 billion cell Capsule ??? [...] fevers, night sweats or chills Vital signs: Most Recent Vitals: 01/23/20 1003 BP: 105/60 Pulse: 71 Physical exam: Ms. Carie Burgos is a 59 y.o. female who is alert and oriented. She is in no acute discomfort and is resting comfortably in the exam room. No use of accessory muscles or retraction. Normal respiratory rate. Incision healing well without erythema, drainage, purulence, dehiscence. Sutures in place. They willbe removed today. Moderate edema at knee/proximal tibia No calf TTP, calves supple bilaterally Able to gently active flex and extend knee Able to wiggle all toes Able to DF/PF ankle SILT LLE Left DP pulse 2+ Imaging studies: Xrays taken today demonstrate left proximal tibia fracture with ORIF hardware in appropriate place without obvious complication. There is not much evidence of healing at his point (not unexpected this soon out). There is also left proximal fibula fracture in acceptable alignment. Assessment and plan:: 59 y.o. year-old female 2 weeks s/p left proximal tibia ORIF, proximal fibula fracture We had a long discussion regarding proximal tibia ORIF. She will be NWB 10-12 weeks total. She continues on Lovenox given that she has not been mobile in her wheelchair. Can wean from [place]. Can do gentle knee ROMAT. Sutures removed today. Can shower, but no soaking incision; no baths, lakes, hot tubs, pools. Discussed s/s infection and return precautions; she expressed understanding. We reviewed the imaging together which is described above. We also discussed that we would wait to see if her medial and lateral fractures would heal prior to discussing any further interventions for varus/valgus instability around the knee. Of note, the patient had an episode of lightheadedness and nausea. She was sent to the lab for a hemogram but was instructed to also follow up with her PCP given her symptoms of influenza. This plan was discussed with the patient and they are in agreement. All of the patient's questions were answered. The patient understand to contact us if they have any other questions or concerns. FU: 6 weeks s/p surgery w/ left tibia films CARRIE LYON MD The above dictation was made with voice recogonition software documented in this encounter Plan of Treatment Upcoming Encounters Date Type Specialty Care Team Description 04/03/2022 TH Visit (TeleHealth) Neurology Pippa Jc MD [facility] [address] [place] [address] (Wo rk) Scheduled Procedures Name Priority Associated Diagnoses Date/Time COLONOSCOPY, DIAGNOSTIC Encounter for colorectal cancer screening Scheduled Referrals Name Type Priority Associated Diagnoses Order S chedule Referral to Outpatient Referral Routine S/p left tibia ORIF O rdered: Physical Therapy for tibial plateau 01/23 fracture 01/08/[address] Still documented as of this encounter Results XR [...] number below. Electronically signed by: Rosaura Saucedo [facility] ([phone]), at 05/21/2020 11:19 AM Floyd Grey MD IMG DX ORDERABLES (ABNORMAL) Hemogram (01/23/2020 11:04 AM EST) Analysis Performed At Patho logist Time Signature WBC 5.0 4.0 - 9.5 [facility] DEMAR[facility] x10(3)/[facility] LABORATORY RBC 3.15 (L) 4.00 - EUNICE DEMARCO 5.21 [facility] x10(6)/[facility] LABORATORY Hemoglobin 9.6 (L) 11.7 - [place] DEMARCO 15.5 gm/dL [facility] LABOR[facility]ORY Hematocrit 30.3 (L) 35.7 - E[place]ICE DEMARCO 45.8 % [facility] MCV 96.2 (H) 82.6 - [facility] 94.4 [facility] LABORATORY MCH 30.5 27.1 - EUNICE DEMARCO 32.0 pg [facility] MCHC 31.7 31.7 - [place] DEMARCO 35.0 gm/dL [facility] LAB[facility] Platelets 508 (H) 145 - 357 [facility] DEMARCO x10(3)/[facility] LABORATORY RDWSD 47.8 (H) 37.0 - [place] DEMARCO 46.0 [facility] LABORATORY RDWCV 13.7 11.5 - [place] DEMARCO 14.1 % [facility] LABOR[facility] MPV 8.9 7.6 - 12.9 [facility] LABORATORY nRBC % Auto 0.0 % [facility] LABORATORY nRBC Abs Auto 0.000 0.000 - [facility] G-volution 0.000 [facility] x10(3)/[facility] LABORATORY Specimen Anatomical Collection Method Collection Time Receive d Time (Source) Location / / Volume Laterality Blood specimen 01/23/2020 11:04 0 (specimen) AM EST 11:21 AM EST Resulting Agency Comment Spec In Lab Floyd Grey MD HEMATOLOGY ORDERABLES Performing Organization Address City/State/[place] [address] documented in this encounter Visit Diagnoses Diagnosis S/p left tibia ORIF for tibial plateau f racture 01/08/[address] Still - Primary S/p left tibia ORIF for tibial plateau f racture 01/08/[address] Still documented in this encounter Care Teams Cloth Trimmer Hand Relationship Specialty Start Date End Date April Cummins APRN PCP - General Internal Medicine 01/06/20 05/20/[address] [place] [address] documented as of this encounter
--- OUTSIDE RECORDS SUMMARY | 2022-02-15 02:26 | XMS_ITS | Encounter Summary ---
:1960 Author Organization [facility] [place] [address] Care Team Providers Name Role Phone Susan Elise ND Primary Care Provider Encounter Details Date Type Department Care Team Description 07/23/2020 Hospital Encounter XRay at [facility] Yolanda Still Closed displaced comminuted fracture of shaft of left tibia with routine healing, subsequent encounter; [address] [place] [address] Dr Carmen MD Right foot pain [facility] [address] [place] [phone] [place] [address] Social History Tobacco Use Types Packs/Day Years [...] Start Date End Date ferrous bis-glycinate by [facility].(Non-Drug; 0 chelate (iron bisglycin Combo Route) route. chelate, bulk,) Powder Thyroid, Pork, (Vadito Take 45 mg by mouth 0 Thyroid) 15 mg Tablet daily. castor oil Oil 0 01/18/2020 Colp Oil, See Instructions, Apply topically, 0 Refill(s) pyridoxine, vitamin B6, 0 01/18/2020 (B-6) 100 mg Tablet Daily, 0 Refill(s) polyethylene glycol Take 17 g by mouth 14 each 0 01/09/20 20 (Miralax) 17 gram Powder 2 times daily. in Packet Ciclesonide (OMNARIS) 50 INSTILL TWO SPRAYS 12.5 g 0 mcg [place], Non-Aerosol IN EACH NOSTRIL TWICE A DAY Uomlamti5-Vfdeoj3-Tddse Take 3 capsules by 90 capsule 3 [...] mouth. 0 01/27/2022 220 mg Capsule omega 3-pux-vhm-fish oil Take by mouth. 0 201901/27/2022 (Fish [...] (TeleHealth) Neurology Pippa Jc MD [facility] er [address] [place], [place] [address] (Wo rk) Scheduled Procedures Name Priority Associated Diagnoses Date/Time COLONOSCOPY, DIAGNOSTIC Encounter for colorectal cancer screening documented as of this encounter Procedures Procedure Name Priority Date/Time Associated Diagnosis Comme nts XR TIBIA FIBULA Routine 07/23/2020 10:37 AM Closed displaced R esults for this LEFT EDT comminuted fracture procedur e are in of shaft of left the results tibia with routine section. healing, subsequent encounter XR ANKLE MIN 3 Routine 07/23/2020 10:37 AM Right foot pain Res ults for this VIEWS RIGHT EDT procedure are i n the results section. documented in this encounter Results XR Ankle Min 3 views Right (Generic) (07/23/2020 10:37 AM EDT) Anatomical Region Laterality Modality Ankle Right Digital Radiography Specimen (Source) Anatomical Location Collection Method / Collectio n Time Received Time / Laterality Volume Impressions 07/23/2020 11:06 AM EDT Healed fracture deformity of the distal tibia and degenerative changes at the ankle joint. No acute fractures seen. Thank you for letting us participate in the care of this patient. For questions regarding this report, please contact e number below. ? Electronically signed by: Benjamin sanderson [facility] ([phone]), at 07/23/2020 11:06 AM Narrative 07/23/2020 11:06 AM EDT EXAMINATION: XR ANKLE MIN 3 VIEWS RIGHT (GENERIC) CLINICAL HISTORY: Pain in right ankle TECHNIQUE: 3 views RIGHT ankle COMPARISON: None FINDINGS: Healed fracture deformity of the distal tibia. Marginal productive changes along the anterior and medial aspects of the a nkle joint. The ankle joint space is relatively well-preserved. Soft tissue s welling is noted along the anterior aspect of the ankle joint. Procedure Note Benjamin Figueroa MD - 07/23/2020For matting of this note might be different from the original. EXAMINATION: XR ANKLE MIN 3 VIEWS RIGHT (GENERIC) CLINICAL HISTORY: Pain in right ankle TECHNIQUE: 3 views RIGHT ankle COMPARISON: None FINDINGS: Healed fracture deformity of the distal tibia. Marginal productive changes along the anterior and medial aspects of the a nkle joint. The ankle joint space is relatively well-preserved. Soft tissue s welling is noted along the anterior aspect of the ankle joint. IMPRESSION Healed fracture deformity of the distal tibia and degenerative changes at the ankle joint. No acute fractures seen. Thank you for letting us participate in the care of this patient. For questions regarding this report, please contact e number below. Electronically signed by: Benjamin sanderson [facility] ([phone]), at 07/23/2020 11:06 AM Yolanda Still MD IMG DX ORDERABLES XR Tibia Fibula Left (Generic) (07/23/2020 10:37 [...] below. ? Electronically signed by: Benjamin sanderson [facility] ([phone]), at 07/23/2020 11:01 AM Narrative 07/23/2020 11:01 [...] For questions regarding this report, please contact th e number below. Electronically signed [facility]: [facility] ([phone]), at 07/23/2020 11:01 AM Yolanda Still MD IMG DX ORDERABLES documented in this encounter Visit Diagnoses Diagnosis Closed displaced comminuted fracture of shaft of left tibia with routine healing, subsequent encounter Right foot pain Pain in limb documented in this encounter Care Teams Call Or Contact Centre Manager Relationship Specialty Start Date End Date Susan Elise ND PCP - General Naturopathic Medicine 05/21/20 01/12/21 documented as of this encounter
--- OUTSIDE RECORDS SUMMARY | 2022-02-15 02:26 | XMS_ITS | Encounter Summary ---
:1960 Author Organization [facility] [place] [address] Care Team Providers Name Role Phone Susan Elise ND Primary Care Provider Reason for Visit - Closed Specialty Diagnoses / Procedures Referred By Contact Refer red To Contact Procedures April Cummins APRN Film Library- Storage Only MR [address] [place] [address] Referral ID Status Reason Start Date Expiration Date Visits Requ ested Visits Authorized [id number] Closed 02/01/2021 02/01/2022 1 1 Encounter Details Date Type Department Care Team Description 01/04/2021 Ancillary Procedure Radiology Library at April Cummins [facility] TEST DESIGN ENGINEER [facility] Aracely BETTYE [facility] [place] [place] [id number] [phone] (Wo rk) Social History Tobacco Use Types [...] TH Visit (TeleHealth) Neurology Pippa Jc MD [facility] [place] [address] (Wo rk) Scheduled Procedures Name Priority Associated Diagnoses Date/Time COLONOSCOPY, DIAGNOSTIC Encounter for colorectal cancer screening documented as of this encounter Procedures Procedure Name Priority Date/Time Associated Diagnosis Comme nts FILM LIBRARY Routine 01/04/2021 12:00 AM Results for this STORAGE ONLY MR EST procedure ar e in SPINE the results section. documented in this encounter Results Film Library- Storage Only MR Spine (01/04/2021 12:00 AM EST) Specimen (Source) Anatomical Location Collection Method / Collectio n Time Received Time / Laterality Volume Narrative RAD - 02/01/2021 3:49 PM EST This exam is auto-finalizing. It's purpo se is for storage only. April Cummins APRN [facility] FILM LIBRARY ORDERABLES Performing Organization Address City/State/ZIP Code Phon e Number [place], [place] documented in this encounter Visit Diagnoses Not on filedocumented in this encounter Care Teams Stonemason Supervisor Relationship Specialty Start Date End Date Susan Elise ND PCP - General Naturopathic Medicine 05/21/20 01/12/21 documented as of this encounter
--- OUTSIDE RECORDS SUMMARY | 2022-02-15 02:26 | XMS_ITS | Encounter Summary ---
:1960 Author Organization [facility] Address [address] [facility] [address] [place] [address] Care Team Providers Name Role Phone Susan Elise ND Primary Care Provider Reason for Referral Physical Therapy (Routine) - Closed Specialty Diagnoses / Procedures Referred By Contact Refer red To Contact Diagnoses Closed displaced comminuted fracture of shaft of left tibia with routine healing, subsequent encounter Joseline Lucero PA [facility] D R ORTHOPAEDIC SURGERY [place] [id number] Referral ID Status Reason Start Date Expiration Date Visits V isits Requested Authorized [id number] Closed Evaluate and 05/21/2020 11/17/2020 1 1 Treat Reason for Visit Reason Comments Follow-up L prox tibia fx 02/04/2020 OR IF 01/08/2020 Encounter Details Date Type Department Care Team Description 05/21/2020 Office Visit Orthopaedics at [facility] Yolanda Still, Closed displaced One [facility] comminuted fracture [address] [place] [address] osullivan with routine [phone] ORTHOPAEDIC healing, subseq uent SURGERY encounter [place] [phone] Social History Tobacco Use Types Packs/Day Years [...] Sign Reading Time Taken Comments Blood Pressure 100/52 05/21/2020 11:13 AM EDT Pulse 63 05/21/2020 11:13 AM EDT Temperature - - Respiratory Rate - - Oxygen Saturation - - Inhaled Oxygen Concentration - - Weight 56.7 kg (125 lb) 05/21/2020 11:13 AM EDT reporte d Height 165.1 cm (5' 5) 05/21/2020 11:13 AM EDT reporte d Body Mass Index 20.8 05/21/2020 11:13 AM EDT documented in this encounter Progress Notes Joseline Lucero PA - 05/21/2020 11:30 AM EDT PATIENT NAME: Kalyn Burgos AGE: 59 y.o. MR#: [id number] DATE OF VISIT: 05/21/2020 CHIEF COMPLAINT: 4 months post left proximal tibia ORIF 01/08/[address] Still HISTORY OF PRESENT ILLNESS: Ms. Carie Burgos is a 59 y.o. female who comes into clinic today for evaluation of the left knee. She was spoke with JAIME Cid on 04/08/2020 at a telephone visit. Since this appointment she has been doing well. She has been ambulating with [place] crutches. She is working with [facility], Pieter Oakley PT. Initially, she had been hesitant to put weight down . Her hips were out and she had a lot of pain with her hips. She does have hypermobility. Past medical history: Patient Active Problem List [...] ??? Left ulnar fracture 02/16/2016 Medications: ??? castor oil Oil ??? omega 6-suj-qcz-fish oil (Fish Oil) 100-160-1,000 mg Capsule ??? pyridoxine, vitamin B6, (Vitamin B-6) 100 mg Tablet ??? ibuprofen (Advil;Motrin) 200 mg Tablet ??? acetaminophen (Tylenol) 500 mg Tablet ??? Ciclesonide (OMNARIS) 50 mcg [place], Non-Aerosol ??? Towvonmo4-Silumn8-Qvhga therm. (VISBIOME) 112.5 billion cell Capsule ??? b complex vitamins Capsule ??? acetylcysteine (NAC ORAL) ??? IODINE ORAL ??? FLUoxetine (PROZAC) 10 mg Tablet ??? oxyCODONE (Roxicodone) 5 mg Tablet ??? gabapentin (Neurontin) 300 mg Capsule ??? HYDROmorphone (Dilaudid) 2 mg Tablet ??? polyethylene glycol (Miralax) 17 gram Powder in Packet ??? senna-docusate (Pericolace) 8.6-50 mg Tablet ??? cyclobenzaprine (Flexeril) 10 mg Tablet ??? GLUTATHIONE ORAL Allergies: Allergies Allergen Reactions [...] sweats or chills Vital signs: Blood pressure 100/52, pulse 63, height 165.1 cm (5' 5), weight 56.7 kg (125 lb). Physical exam: Ms. Carie Burgos is a 59 y.o. female who is alert and oriented. She is in no acute discomfort and is resting comfortably in the exam room. Incision looks great. Prominent lateral tibial hardware Extension 0, Flexion 120 Supple calf Imaging studies: XR of the left tib fib shows proximal tibial fracture with no change in alignment. There has been interval callus formation since prior. Assessment and plan:: 59 y.o. year-old female left proximal tibia ORIF 01/08/[address] Still doing well. Pt seen in conjunction with PT Trow. We had a long discussion regarding the nature of Kalyn Burgos's chief complaint. We reviewed the imaging together XR of the left tib fib shows proximal tibial fracture with no change in alignment. There has been interval callus formation since prior. Clinically Kalyn Burgos is doing well. Her knee ROM is getting better, however I would like her to work on this. PT Trow has evaluated her. We have created a PT referral as follows: May WBAT Does not need to use the ralph May work on knee ROM, hamstring stretch Quad strengthening, core strengthening Modalities as needed for pain and edema Pt has suggested exercises. This plan was discussed with the patient and they are in agreement. All of the patient's questions were answered. The patient understand to contact us if they have any other questions or concerns. FU: 2 months with left tib fib films. Joseline Lucero PA-C The above dictation was made with voice recogonition software documented in this encounter Plan of Treatment Upcoming Encounters Date Type Specialty Care Team Description 04/03/2022 TH Visit (TeleHealth) Neurology Pippa Jc MD [facility] [place] [address] (Wo rk) Scheduled Procedures Name Priority Associated Diagnoses Date/Time COLONOSCOPY, DIAGNOSTIC Encounter for colorectal cancer screening Scheduled Referrals Name Type Priority Associated Diagnoses Order S chedule Referral to Outpatient Referral Routine Closed displaced Orde red: Physical Therapy comminuted fracture 04/27 of shaft of left tibia with routine healing, subsequent encounter documented as of this encounter Visit Diagnoses Diagnosis Closed displaced comminuted fracture of shaft of left tibia with routine healing, subsequent encounter documented in this encounter Care Teams Fire [place]out Relationship Specialty Start Date End Date Susan Elise ND PCP - General Naturopathic Medicine 05/21/20 documented as of this encounter
--- OUTSIDE RECORDS SUMMARY | 2022-02-15 02:26 | XMS_ITS | Encounter Summary ---
:1960 Author Organization [facility] [place] [address] Care Team Providers Name Role Phone Susan Elise ND Primary Care Provider Reason for Visit - Closed Specialty Diagnoses / Procedures Referred By Contact Refer red To Contact Procedures April Cummins APRN Film Library- Storage Only DX [address] [place] [address] Referral ID Status Reason Start Date Expiration Date Visits Requ ested Visits Authorized [id number] Closed 02/01/2021 02/01/2022 1 1 Encounter Details Date Type Department Care Team Description 12/21/2020 Ancillary Procedure Radiology Library at April Cummins [facility] JOB COACH [facility] [address] [place] [id number] [phone] (Wo rk) Social History Tobacco Use Types [...] Pippa Jc MD [facility] [address] [place] [address] (Wo rk) Scheduled Procedures Name Priority Associated Diagnoses Date/Time COLONOSCOPY, DIAGNOSTIC Encounter for colorectal cancer screening documented as of this encounter Procedures Procedure Name Priority Date/Time Associated Diagnosis Comme nts FILM LIBRARY Routine 12/21/2020 12:00 AM Results for this STORAGE ONLY DX EST procedure ar e in SPINE the results section. documented in this encounter Results Film Library- Storage Only DX Spine (12/21/2020 12:00 AM EST) Specimen (Source) Anatomical Location Collection Method / Collectio n Time Received Time / Laterality Volume Narrative RAD - 02/01/2021 3:45 PM EST This exam is auto-finalizing. It's purpo se is for storage only. April Cummins APRN IMCyndee FILM LIBRARY ORDERABLES Performing Organization Address City/State/ZIP Code Phon e Number [place], [place] documented in this encounter Visit Diagnoses Not on filedocumented in this encounter Care Teams Office Services Representative Relationship Specialty Start Date End Date Susan Elise ND PCP - General Naturopathic Medicine 05/21/20 01/12/21 documented as of this encounter
--- OUTSIDE RECORDS SUMMARY | 2022-02-15 02:26 | XMS_ITS | Encounter Summary ---
:1960 Author Organization [facility] Address [facility] [address] [place] [address] Care Team Providers Name Role Phone April Cummins APRN Primary Care Provider Reason for Visit Reason Onset Date Comments Medication Refill 01/28/2020 Encounter Details Date Type Department Care Team Description 01/28/2020 Refill Orthopaedics at [facility] Hetal Kruger Closed displaced [facility] [place] [address] [facility] shaft of left tibia [phone] DR with routine healing, ORTHOPAEDIC SURG [place] subsequent encounter [place], [place] [address] (Wo rk) Social History Tobacco [...] this encounter Miscellaneous Notes Telephone Encounter - Laura Hawkins RN - 01/28/2020 10:07 AM EST Medication Refill Request Surgery/Injury/Provider: 01/08/2020 ORIF TIBIAL SHAFT, PLATE & SCREWS with Dr. Still Medication being requested:Hydromorphone 2mg Last refill or Original Rx: 01/18 Query: Must be completed today: 01/18 - hydromorphone 2mg - 30 tabs Seen within 30 days (if no, than when): Follow Up: 02/19 Dr. Still How is this medication being used currently: patient states she was taking 1 tab every 6 hrs, started to run out 2 days ago, thought she couldn't get any more and went until this morning without takingany. Did not get any sleep last night due to the pain. Pain level: currently 5/10 after 1 tab this morning Bowel concerns: no concerns at this time Other pain medications used and how: Unable to take Tylenol as it gives her headaches; has outdated ibuprofen (asked her to pick pulling machine tender new ibuprofen); does not take the flexeril because she states it makes her crazy; gabapentin 600mg 3x/day; ice and elevation. Medication Taper Plan: Back down the hydromorphone to 1 every 8 hours as needed, utilizing new ibuprofen to help cover breakthrough pain/discomfort, continue to ice and elevate. Teaching done regarding: taking nonnarcotic pain medications, taking the least amount of opioid needed for the least amount of time for adequate pain management and tapering of opioids with verbalized understanding by the patient. New Prescription written for: Hydromorphone 2mg Requested Prescription to be sent electronically to [facility] [place](location). Prescription prepped and pended for Becca Lucero (provider) review. The patient knows how to contact orthopaedics if any further questions or concerns occur. documented in this encounter Plan of Treatment Upcoming Encounters Date Type Specialty Care Team Description 04/03/2022 TH Visit (TeleHealth) Neurology Pippa Jc MD [facility] [place] [address] (Wo rk) Scheduled Procedures Name Priority Associated Diagnoses Date/Time COLONOSCOPY, DIAGNOSTIC Encounter for colorectal cancer screening documented as of this encounter Visit Diagnoses Diagnosis Closed displaced comminuted fracture of shaft of left tibia with routine healing, subsequent encounter documented in this encounter Care Teams [employer] Sales Representative Relationship Specialty Start Date End Date April Cummins APRN PCP - General Internal Medicine 01/06/20 05/20/20 [address] [place] [address] documented as of this encounter
--- OUTSIDE RECORDS SUMMARY | 2022-02-15 02:26 | XMS_ITS | Encounter Summary ---
:1960 Author Organization [facility] [place] [address] Care Team Providers Name Role Phone April Cummins APRN Primary Care Provider Reason for Visit Reason Onset Date Comments Other 02/01/2021 Encounter Details Date Type Department Care Team Description 02/01/2021 Telephone Orthopaedics at [facility] Yolanda Still MD [facility] [place] [address] ORTHOPAEDIC SURGERY [phone] [place], [place] [address] (Wo rk) Social History Tobacco [...] this encounter Miscellaneous Notes Telephone Encounter - Julia rBaden - 02/01/2021 8:40 AM EST Kalyn stopped into clinic today and would like the orders placed for Hardware Removal documented in this encounter Plan of Treatment Upcoming Encounters Date Type Specialty Care Team Description 04/03/2022 TH Visit (TeleHealth) Neurology Pippa Jc MD [facility] [address] [place] [address] (Wo rk) Scheduled Procedures Name Priority Associated Diagnoses Date/Time COLONOSCOPY, DIAGNOSTIC Encounter for colorectal cancer screening documented as of this encounter Visit Diagnoses Not on filedocumented in this encounter Care Teams Ripening Room Hand Relationship Specialty Start Date End Date April Cummins APRN PCP - General Internal Medicine 01/13/[address] [place] [address] documented as of this encounter
--- OUTSIDE RECORDS SUMMARY | 2022-02-15 02:26 | XMS_ITS | Encounter Summary ---
:1960 Author Organization [facility] [place] [address] Care Team Providers Name Role Phone Susan Elise ND Primary Care Provider Reason for Visit Reason Onset Date Comments Follow-up 07/26/2020 Encounter Details Date Type Department Care Team Description 07/26/2020 Telephone Orthopaedics at [facility] Yolanda Still MD Follow-up [facility] [place] [address] ORTHOPAEDIC SURGERY [phone] [place] [id number] (Wo rk) Social History Tobacco Use Types [...] Notes Telephone Encounter - Yahaira Flores - 07/30/2020 1:29 PM EDT Unable to contact, letter sent via My . Telephone Encounter - Jojo Fowler - 07/29/2020 9:40 AM EDT LM #2 to schedule 4 month follow up with Tessy/ Team (XR of both ankle and knee)- Orders are in FVE: XR L proximal tibia fx 01/06/20 ORIF 01/08/20 Telephone Encounter - Frances Hays - 07/26/2020 4:16 PM EDT LM#1 to schedule a 4 month follow up in [facility] with x-rays prior (orders are in ankle and knee). FVE: XR L proximal tibia fx 01/06/20 ORIF 01/08/20 documented in this encounter Plan of Treatment Upcoming Encounters Date Type Specialty Care Team Description 04/03/2022 TH Visit (TeleHealth) Neurology Pippa Jc MD [facility] [address] [place], [place] [address] (Wo rk) Scheduled Procedures Name Priority Associated Diagnoses Date/Time COLONOSCOPY, DIAGNOSTIC Encounter for colorectal cancer screening documented as of this encounter Visit Diagnoses Not on filedocumented in this encounter Care Teams Booster Operator Relationship Specialty Start Date End Date Susan Elise ND PCP - General Naturopathic Medicine 05/21/20 01/12/21 documented as of this encounter
--- OUTSIDE RECORDS SUMMARY | 2022-02-15 02:26 | XMS_ITS | Encounter Summary ---
:1960 Author Organization [facility] [place] [address] Care Team Providers Name Role Phone Susan Elise ND Primary Care Provider Reason for Visit Physical Therapy (Routine) - Closed Specialty Diagnoses / Procedures Referred By Contact Refer red To Contact Physical Therapy Diagnoses Closed displaced comminuted fracture of shaft of left tibia with routine healing, subsequent encounter [facility] -11-05??? Joseline Lucero PA [facility] Pt [facility] D R [address] [address] [place] [address] Referral ID Status Reason Start Date Expiration Date Visits V isits Requested Authorized [id number] Closed Evaluate and 11/05/2020 11/05/2021 1 1 Treat Encounter Details Date Type Department Care Team Description 11/05/2020 [facility] Closed displaced [address] [facility] comminuted fracture [address] of shaft of left [place], [place] PHYSICAL MEDICINE [place] [phone] REHABILITAT healing, subsequent [phone] [place] [address] encounter Social History Tobacco Use Types Packs/Day [...] Miscellaneous Notes Treatment - Therapy - Jinny Harkins PT - 11/05/2020 3:15 PM EST Physical Therapy Trauma clinic Note Total treatment time: 15minutes Total timed code treatment: 15 minutes Follow up visit for patient with: ICD-10-CM 1. Closed displaced comminuted fracture of shaft of left tibia with routine healing, subsequent encounter S82.252D Goals: Able to go up and down stairs Subjective: Pt reports that she has been walking but difficulty with stairs or up/ down hills. She has been in PT but doesn't feel she has the strength in her leg Objective: Therex: Strength/Endurance/ROM (03484) 15 min ?? Squats x10 ?? SL get ups harder on left ?? Step up and downs given to HEP x10 ?? sidelying hip abd x10 ?? Assessment: Patient needs to continue to work on overall strength with entire left leg Plan: cont physical therapy PRN JINNY HARKINS PT documented in this encounter Plan of Treatment Upcoming Encounters Date Type Specialty Care Team Description 04/03/2022 TH Visit (TeleHealth) Neurology Pippa Jc MD [facility] Medical [facility] [address] [place], [place] [address] (Wo rk) Scheduled Procedures Name Priority [...] encounter documented in this encounter Care Teams Lime Supervisor Relationship Specialty Start Date End Date Susan Elise ND PCP - General Naturopathic Medicine 05/21/20 01/12/21 documented as of this encounter
--- OUTSIDE RECORDS SUMMARY | 2022-02-15 02:26 | XMS_ITS | Encounter Summary ---
:1960 Author Organization [facility] [place] [address] Care Team Providers Name Role Phone April Cummins APRN Primary Care Provider Encounter Details Date Type Department Care Team Description 03/24/2020 Telephone Orthopaedics at [facility] Marlyn Puri, [place] [address] Social History Tobacco Use Types Packs/Day Years Used Date Never Smoker Smokeless Tobacco: Never Used Comments: Exposure to smoking in the [place] until the age of 16 Alcohol Use Standard Drinks/Week Comments No 0 (1 standard drink = 0.6 oz pure alcoho l) Sex Assigned at Date Recorded Not on file documented as of this encounter Miscellaneous Notes Telephone Encounter - Kathie Cid PA - 03/24/2020 2:55 PM EDT I spoke with Kalyn. I have never seen her before. (Office visit is listed under my name, but Marquez Camron saw her and wrote note). Xrays show fracture line still very visible. I asked her about her diet, okay. Denies smoking. Says she had previous distal tibia fracture which took 6 months to heal andrequired subsequent bone graft surgery. I told her I would discuss these xrays with Dr. Still tomorrow, but we would likely have her NWB for 12 weeks total. Spoke with her for 9 minutes. Answered all questions. Okay for knee and ankle ROM. Endorses diffuse lower leg weakness and atrophy. Telephone Encounter - Marlyn Puri, RN - 03/24/2020 2:08 PM EDT Returned call to Ms Darnell Telephone Encounter - Marlyn Puri RN - 03/24/2020 11:28 AM EDT S/P ORIF tibial shaft, Plate and screws, L, 01/08/2020, Dr Still Mrs Darnell-case called and asked if we have received her Xrays, and would like to know if she can have a referral for Pt, and also can we tell her if she is able to bear weight on her left leg, and foot, now, before she has her appointment on 04/16. Best Call Back: [phone] documented in this encounter Plan of Treatment Upcoming Encounters Date Type Specialty Care Team Description 04/03/2022 TH Visit (TeleHealth) Neurology Pippa Jc MD [facility] Medical [facility] [address] [place], [place] [address] (Wo rk) Scheduled Procedures Name Priority Associated Diagnoses Date/Time COLONOSCOPY, DIAGNOSTIC Encounter for colorectal cancer screening documented as of this encounter Visit Diagnoses Not on filedocumented in this encounter Care Teams Behavioral Psychologist Relationship Specialty Start Date End Date April Cummins APRN PCP - General Internal Medicine 01/06/20 05/20/[address] [place] [address] documented as of this encounter
--- OUTSIDE RECORDS SUMMARY | 2022-02-15 02:26 | XMS_ITS | Encounter Summary ---
:1960 Author Organization [facility] [place] [address] Care Team Providers Name Role Phone April Cummins APRN Primary Care Provider Reason for Visit Reason Onset Date Comments Questions 04/05/2020 Encounter Details Date Type Department Care Team Description 04/05/2020 Telephone [place] [facility] Y[place]anda Still MD Questions [facility] [place] [address] ORTHOPAEDIC SURGERY [phone] [place], [place] [address] (Wo rk) Social History Tobacco [...] this encounter Miscellaneous Notes Telephone Encounter - Jojo Fowler - 04/06/2020 10:58 AM EDT Patient Scheduled Telephone Encounter - Yahaira Flores - 04/05/2020 12:48 PM EDT Rerouting to nurse pool, patient has questions. Telephone Encounter - Daina Monzon - 04/05/2020 11:41 AM EDT Patient called returning a call today. Please call patient at earliest convenience. If you call and get VM, please call right back as it is taking her a long time to get to the phone. Routed to secretarial team. Telephone Encounter - Yahaira Flores - 04/05/2020 8:17 AM EDT I was speaking to this patient about rescheduling a bumped appointment in Dr. Still's clinic on 04/16 (patient has been rescheduled). She has questions about the fact that she is still getting some swelling and discoloration of her leg as well as should she have an additional xray prior to her appointment on 04/16. Could someone please call her to discuss these concerns. documented in this encounter Plan of Treatment Upcoming Encounters Date Type Specialty Care Team Description 04/03/2022 TH Visit (TeleHealth) Neurology Pippa Jc MD [facility] [place] [address] (Wo rk) Scheduled Procedures Name Priority Associated Diagnoses Date/Time COLONOSCOPY, DIAGNOSTIC Encounter for colorectal cancer screening documented as of this encounter Visit Diagnoses Not on filedocumented in this encounter Care Teams Business Process Specialist Relationship Specialty Start Date End Date April Cummins APRN PCP - General Internal Medicine 01/06/20 05/20/20 [address] [place] [address] documented as of this encounter
--- OUTSIDE RECORDS SUMMARY | 2022-02-15 02:26 | XMS_ITS | Encounter Summary ---
:1960 Author Organization [facility] [place] [address] Care Team Providers Name Role Phone April Cummins APRN Primary Care Provider Encounter Details Date Type Department Care Team Description 02/12/2020 Telephone Orthopaedics at [facility] [address] Social History Tobacco Use Types Packs/Day Years Used Date Never Smoker Smokeless Tobacco: Never Used Comments: Exposure to smoking in the [place] e until the age of 16 Alcohol Use Standard Drinks/Week Comments No 0 (1 standard drink = 0.6 oz pure alcoho l) Sex Assigned at Date Recorded Not on file documented as of this encounter Miscellaneous Notes Telephone Encounter - Moody Villafuerte - 02/12/2020 1:19 PM EDT Made an attempt to reach out to the patient. Unable to leave message at this time. Patient is to continue nonweightbearing exercises she is able to take the brace off to help relieve the irritation of the skin, bruises, swollen patches, etc. But she should wear the brace while ambulating. All activity and exercises should be done to tolerance. In order to reduce swelling, patient should maintain the limb in an elevated fashion, above the heart. At this time there is no additionalexercises that are advised. The area needs to heal further before we can begin more exercises. Further intent of the phone call would be to see if her symptoms have resolved from 02/06/2020. Has the patient's bruising subsided? Has the patient had normal bowel movements since the ? documented in this encounter Plan of Treatment Upcoming Encounters Date Type Specialty Care Team Description 04/03/2022 TH Visit (TeleHealth) Neurology Pippa Jc MD [facility] [address] [place], [place] [address] (Wo rk) Scheduled Procedures Name Priority Associated Diagnoses Date/Time COLONOSCOPY, DIAGNOSTIC Encounter for colorectal cancer screening documented as of this encounter Visit Diagnoses Not on filedocumented in this encounter Care Teams Manager Dental Relationship Specialty Start Date End Date April Cummins APRN PCP - General Internal Medicine 01/06/20 05/20/[address] [place] [address] documented as of this encounter
--- OUTSIDE RECORDS SUMMARY | 2022-02-15 02:26 | XMS_ITS | Encounter Summary ---
:1960 Author Organization [facility] [place] [address] Care Team Providers Name Role Phone April Cummins APRN Primary Care Provider Encounter Details Date Type Department Care Team Description 01/13/2020 Telephone [place] [facility] Rosemary Ray, [facility] [place] [address] [facility] [phone] UROLOGY DEPT. [place], [place] [address] (Wo rk) Social History Tobacco [...] this encounter Miscellaneous Notes Telephone Encounter - Rosemary Ray APRN - 01/16/2020 9:39 AM EST I talked to Dr. Givens at [facility]. She is doing well urologically per his review. LM for pt that I had spoken with her provider and that she could contact me if there are questions or additional information she would like me to be aware of. Telephone Encounter - Kathleen Vasquez - 01/13/2020 12:10 PM EST PT called. She reports that she is admitted at [facility]. PT says that she would like L to call her to discuss what is happening. Told PT that I would send her a message and ask her to call. PT would like [facility] to call and speak with her provider at [facility]. PT doesn't know who that it. PT seemsvery confused and disoriented. PT cell-- [phone] documented in this encounter Plan of Treatment Upcoming Encounters Date Type Specialty Care Team Description 04/03/2022 TH Visit (TeleHealth) Neurology Pippa Jc MD [facility] [place] [address] (Wo rk) Scheduled Procedures Name Priority Associated Diagnoses Date/Time COLONOSCOPY, DIAGNOSTIC Encounter for colorectal cancer screening documented as of this encounter Visit Diagnoses Not on filedocumented in this encounter Care Teams Management Accountant Relationship Specialty Start Date End Date April Cummins APRN PCP - General Internal Medicine 01/06/20 05/20/[address] [place] [place] [address] documented as of this encounter
--- OUTSIDE RECORDS SUMMARY | 2022-02-15 02:26 | XMS_ITS | Encounter Summary ---
:1960 Author Organization [facility] [place] [address] Care Team Providers Name Role Phone Rosita Cumminsyce Tanvir HENLEY Primary Care Provider Encounter Details Date Type Department Care Team Description 04/26/2020 Ancillary Procedure Radiology Library at Yolanda Still [facility] [place] [address] ORTHOPAEDIC SURGERY [phone] [place], [place] [address] (Wo rk) Social History Tobacco [...] TH Visit (TeleHealth) Neurology Pippa Jc MD [facility] [address] [place], [place] [address] (Wo rk) Scheduled Procedures Name Priority Associated Diagnoses Date/Time COLONOSCOPY, DIAGNOSTIC Encounter for colorectal cancer screening documented as of this encounter Procedures Procedure Name Priority Date/Time Associated Diagnosis Comme nts FILM LIBRARY Routine 04/26/2020 12:00 AM Results for this STORAGE ONLY DX EDT procedure ar e in LOWER EXTREMITY the results section. documented in this encounter Results Film Library- Storage Only DX Lower Extremity (04/26/2020 12:00 AM EDT) Specimen (Source) Anatomical Location Collection Method / Collectio n Time Received Time / Laterality Volume Narrative DENISE - 04/30/2020 2:22 PM EDT This exam is auto-finalizing. It's purpo se is for storage only. Yolanda Still MD IMG FILM LIBRARY ORDERABLES Performing Organization Address City/State/ZIP Code Phon e Number [place], [place] documented in this encounter Visit Diagnoses Not on filedocumented in this encounter Care Teams Shirt Presser Relationship Specialty Start Date End Date April Cummins APRN PCP - General Internal Medicine 01/06/20 05/20/[address] [place] [address] documented as of this encounter
--- OUTSIDE RECORDS SUMMARY | 2022-02-15 02:27 | XMS_ITS | Encounter Summary ---
:1960 Author Organization [facility] [place] [address] Care Team Providers Name Role Phone April Cummins APRN Primary Care Provider Encounter Details Date Type Department Care Team Description 03/17/2019 Office Visit Gastroenterology at [facility] Brandi Reyes Small intestinal bacterial o vergrowth; [facility] Arleth Salguero MD Irritable bowel syndrome with diarrhea; [place] [address] [facility] Angioedema, subsequent encou nter [phone] [place] [address] Social History Tobacco Use Types Packs/Day Years [...] Sign Reading Time Taken Comments Blood Pressure 96/59 03/17/2019 9:49 AM EDT Pulse 53 03/17/2019 9:49 AM EDT Temperature - - Respiratory Rate - - Oxygen Saturation - - Inhaled Oxygen Concentration - - Weight 59.3 kg (130 lb 12.8 oz) 03/17/2019 9:49 AM EDT Height 167.6 cm (5' 6) 03/17/2019 9:49 AM EDT Body Mass Index 21.11 03/17/2019 9:49 AM EDT documented in this encounter Patient Instructions Patient InstructionsBrandi Reyes MD - 03/17/2019 9:30 AM EDT ?? Check blood tests for angioedema ?? Repeat rifaximin 550mg TID x 14 days ?? Visbiome: 3 capsules per day (112.5 billion CFUs per cap) ?? Make sure you have benadryl and an epi pen on you. Keep track. Consider allergy testing for certain foods (this would be done by an mud tank operator) Follow-up with Beth when she returns. documented in this encounter Progress Notes Brandi Reyes MD - 03/17/2019 9:30 AM EDT [facility] Section of Gastroenterology and Hepatology Follow-Up Visit PCP: April Cummins, KALE HPI This is a 58 yo F with suspected IBS and suspected pelvic floor dysfunction who presents for follow-up of gas/bloating, diarrhea and urgency. Pt is followed by my colleague Beth Guerra. I am seeing her in her absence - this is our first meeting. Concerned about recurrent SIBO. VSL# 3 was helpful but having trouble getting this. Main symptoms are explosive diarrhea (non-bloody), gas (smelly) and distention. Increased a probiotic dose and noticed a significant improvement, stools more formed. Rifaximin helped previously. Incident in December - Was in the [employer] and had a reaction (drank a drink with cayenne and banana) - couldn't hear, felt dizzy, neck swelling & redness, closed down the throat. Spread to her face. Couldn't breath through her nose but did not have wheezing. Saw an mud tank operator and for rash, neck swelling, mild itching. Recommended she see a theatre instructor. Had skin testing - grass, cockroaches but unable to do food allergy testing. Seems like stuffiness and facial swelling comes after bowel habit changes. Benadryl seems to help. ROS: Constitutional: weight stable PMHx ?? Gangrenous appendicitis at age 16, which is when IBS sx began ?? 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 . Has one son- . Denies tobacco use. Denies alcoholuse. Denies using other substances. ?? FAMILY HISTORY Denies family history of celiac disease, esophageal cancer, stomach cancer, colon cancer, pancreaticor liver issues, and IBD. TESTING ?? TTG IgA neg ?? Colonoscopy in April 2017 (tubular adenoma) TRIALS ?? Low FODMAP diet ?? GAPs diet ?? Peppermint ?? Limit fiber ?? Senna/smooth move ?? Rifaximin - helped but short lived ?? Pelvic floor PT ?? Milk - GI cramping ?? Wheat - cramping Current Outpatient Medications: ??? Ciclesonide (OMNARIS) 50 mcg Pindall, Non-Aerosol, 2 sprays each nostril BID, Disp: 12.5 g, Rfl: 0 ??? lactobacillus rhamnosus, GG, (CULTURELLE) 10 billion cell Capsule, Take 1 capsule by mouth daily., Disp: , Rfl: ??? b complex vitamins Capsule, Take 1 capsule by mouth daily., Disp: , Rfl: ??? acetylcysteine (NAC ORAL), Take by mouth., Disp: , Rfl: ??? GLUTATHIONE ORAL, Take by mouth daily., Disp: , Rfl: ??? IODINE ORAL, Take 2.5 mg by mouth daily., Disp: , Rfl: ??? FLUoxetine (PROZAC) 10 mg Tablet, Take 10 mg by mouth 3 times daily., Disp: , Rfl: ??? HYDROcodone-ibuprofen (VICOPROFEN) 7.5-200 mg Tablet, Take 1 tablet by mouth every 8 hours as needed for Pain. (Patient not taking: Reported on 11/23/2017), Disp: 20 tablet, Rfl: 0 Allergies Allergen Reactions ??? Milk Diarrhea ??? Wheat Other (See Comments) Gastrointestinal distress Patient Active Problem List Diagnosis Code ??? Left ulnar fracture S52.202A ??? 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 Disorder of muscle, ligament, and fascia M62.9 ??? Pelvic floor dysfunction M62.89 ??? Chronic constipation K59.09 ??? Mixed stress and urge urinary incontinence N39.46 ??? Lower urinary tract symptoms (LUTS) R39.9 ??? History of nephrolithiasis Z87.442 ??? Renal cyst, acquired N28.1 ??? NELSON (stress urinary incontinence, female) N39.3 ??? Cystocele, midline N81.11 ??? 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 Anxiety ??? Depression ??? IBS (irritable bowel syndrome) ??? Nephrolithiasis ??? No known health problems ??? Sepsis due to urinary tract infection Past Surgical History: Procedure Laterality Date ??? APPENDECTOMY ??? BACK SURGERY ??? SECTION ??? SHOULDER ARTHROSCOPY ??? TIBIA FRACTURE SURGERY ??? URETER STENT PLACEMENT Social History Socioeconomic History ??? Marital status: Spouse name: Not on file ??? Number of children: Not on file ??? Years of education: Not on file ??? Highest education level: Not on file Occupational History ??? Not on file Social Needs ??? Financial resource strain: Not on file ??? Food insecurity: Worry: Not on file Inability: Not on file ??? Transportation needs: Medical: Not on file Non-medical: Not on file Tobacco Use ??? Smoking status: Never Smoker ??? Smokeless tobacco: Never Used ??? Tobacco comment: Exposure to smoking in the home until the age of 16 Substance and Sexual Activity ??? Alcohol use: No ??? Drug use: No ??? Sexual activity: Not on file Lifestyle ??? Physical activity: Days per week: Not on file Minutes per session: Not on file ??? Stress: Not on file Relationships ??? Social connections: Talks on phone: Not on file Gets together: Not on file Attends orthodoxy service: Not on file Active member of club or organization: Not on file Attends meetings of clubs or organizations: Not on file Relationship status: Not on file ??? Intimate partner violence: Fear of current or ex partner: Not on file Emotionally abused: Not on file Physically abused: Not on file Forced sexual activity: Not on file Other Topics Concern ??? Not on file Social History Narrative ??? Not on file Family History Problem Relation Age of Onset ??? Cancer Mother ??? Asthma Mother ??? Allergic Rhinitis Mother ??? Chronic Obstructive Pulmonary Disease Mother ??? Chronic Obstructive Pulmonary Disease Father ??? Food Allergy Other Physical Exam BP 96/59 Pulse 53 Ht 167.6 cm (5' 6) Wt 59.3 kg (130 lb 12.8 oz) BMI 21.11 kg/m?? Constitutional: Well appearing, NAD, AAO x 3 Gastrointestinal: mild b/l lower abdominal tenderness Psychiatric: pleasant, judgement and insight intact PERTINENT LABS AND IMAGING: As noted above Impression: 58 yo F with longstanding IBS-D and food intolerances (dairy, wheat) here for follow-upof worsening diarrhea and gas/bloating. She has had a response in the past to therapies that are directed at her gut microbiome (rifaximin, probiotics). We discussed that SIBO is very common in IBS-D and that gut microbiome changes are part of the pathogenesis of IBS. Her reaction in the grocery store seems like an allergic reaction (facialswelling, throat closing, not clear to me that she had hives) and I think further follow- up with allergy is indicated. I also suggested we check her for hereditary angioedema Plan: ?? Check blood tests for hereditary angioedema (C3, C4, C1q, C1 esterase inhibitor level/function) ?? Repeat rifaximin 550mg TID x 14 days ?? Visbiome (in place of VSL#): 3 capsules per day (112.5 billion CFUs per cap) ?? Counseled to keep benadryl and Epi pen on persona at all times. Keep track of symptoms and consider allergy testing for certain foods (this would be done by an mud tank operator) based on suspicion for allergic reaction Follow-up with Beth when she returns. The risks, benefits and alternatives were discussed with the patient who understands and agrees withabove. Total visit time: 25 minutes Counseling time: Greater than 15 minutes of this 25 minute face to face visit were spent in direct counseling and coordination of care for the above issues. Brandi Reyes MD 03/17/19 Brandi Reyes MD Editor Managing Newspaperaudit specialist Section of Gastroenterology and Hepatology [facility] [email or web address] ([email or web address]) documented in this encounter Plan of Treatment Upcoming Encounters Date Type Specialty Care Team Description 04/03/2022 TH Visit (TeleHealth) Neurology Pippa Jc MD [facility] er [place] [address] (Wo rk) Scheduled Procedures Name Priority Associated Diagnoses Date/Time COLONOSCOPY, DIAGNOSTIC Encounter for colorectal cancer screening documented as of this encounter Procedures Procedure Name Priority Date/Time Associated Comments Diagnosis C1Q COMPLEMENT Routine 03/17/2019 11:02 AM Result s for this EDT procedure are i n the results section. C1 ESTERASE Routine 03/17/2019 11:02 AM Angioedema, Results for this INHIBITOR ANTIGEN EDT subsequent procedure are in encounter the results section. C1 ESTERASE Routine 03/17/2019 11:02 AM Angioedema, Results for this INHIBITOR, EDT subsequent procedure are i n FUNCTIONAL encounter the results section. C3 COMPLEMENT Routine 03/17/2019 11:02 AM Angioedema, Results for this EDT subsequent procedure are i n encounter the results section. C4 COMPLEMENT Routine 03/17/2019 11:02 AM Angioedema, Results for this EDT subsequent procedure are i n encounter the results section. documented in this encounter Results C1q Complement (03/17/2019 11:02 AM EDT) athologist Signature Complement [facility]q [facility] Comment: ADDITIONAL INFORMATIO N This test was developed and its performa nce characteristics determined by [facility] in a manner co nsistent with CLIA requirements. This test has not bee n cleared or approved by the U.S. Food and Drug Admin istration. Test Performed by: [facility] [address] [id number] Specimen Anatomical Collection Method Collection Time Receive d Time (Source) Location / / Volume Laterality Blood specimen Venous Draw / 03/17/2019 11:02 03/19/20 19 (specimen) Unknown AM EDT 12:09 PM EDT Resulting Agency Comment Spec In Lab Brandi Reyes MD CHEMISTRY ORDERABLES Performing Organization Address City/State/ZIP Code Phon e Number [facility] [address] C1 Esterase Inhibitor, Functional (03/17/2019 11:02 AM EDT) athologist Signature C1 Omayra Inh >90 % normal [facility] Comment: REFERENCE VALUE------ >67 (Normal) 41-67 (Equivocal) <41 (Abnormal) Test Performed by: [facility] [address] [address] Specimen Anatomical Collection Method Collection Time Receive d Time (Source) Location / / Volume Laterality Blood specimen 03/17/2019 11:02 9 (specimen) AM EDT 12:49 PM EDT Resulting Agency Comment Spec In Lab Brandi Reyes MD CHEMISTRY ORDERABLES Performing Organization Address City/[facility]/ZIP Code Phon e Number [address] C1 Esterase Inhibitor Antigen (03/17/2019 11:02 AM EDT) athologist Signature C1 Omayra Inh 30 19 - 37 [facility] mg/dL [facility] Comment: Test Performed by: [facility] [address] [facility] [address] Specimen Anatomical Collection Method Collection Time Receive d Time (Source) Location / / Volume Laterality Blood specimen 03/17/2019 11:02 9 (specimen) AM EDT 12:49 PM EDT Resulting Agency Comment Spec In Lab Brandi Reyes MD CHEMISTRY ORDERABLES Performing Organization Address City/State/ZIP Code Phon e Number [address] C4 Complement (03/17/2019 11:02 AM EDT) athologist Signature C4 Complement 19 10 - 40 [facility] mg/dL [facility] Specimen Anatomical Collection Method Collection Time Receive d Time (Source) Location / / Volume Laterality Blood specimen 03/17/2019 11:02 04/22/201 9 (specimen) AM EDT 11:09 AM EDT Resulting Agency Comment Spec In Lab Brandi Reyes MD CHEMISTRY ORDERABLES Performing Organization Address City/State/ZIP Code Phon e Number [address] (ABNORMAL) C3 Complement (03/17/2019 11:02 AM EDT) P athologist Signature C3 Complement 89 (L) 90 - 180 [facility] mg/dL [facility] Specimen Anatomical Collection Method Collection Time Receive d Time (Source) Location / / Volume Laterality Blood specimen 03/17/2019 11:02 9 (specimen) AM EDT 11:09 AM EDT Resulting Agency Comment Spec In Lab Brandi Reyes MD CHEMISTRY ORDERABLES Performing Organization Address City/[facility]/[place] [address] documented in this encounter Visit Diagnoses Diagnosis Small intestinal bacterial overgrowth Irritable bowel syndrome with diarrhea Irritable bowel syndrome Angioedema, subsequent encounter documented in this encounter Care Teams Geology Technician Relationship Specialty Start Date End Date April Cummins APRN PCP - General Internal Medicine 11/06/18 11/19/[address] [place] [address] documented as of this encounter
--- OUTSIDE RECORDS SUMMARY | 2022-02-15 02:27 | XMS_ITS | Encounter Summary ---
:1960 Author Organization [facility] Address [facility] [place] [address] Care Team Providers Name Role Phone April Cummins APRN Primary Care Provider Reason for Visit Reason Comments Leg Injury skiing accident Auth/Cert Specialty Diagnoses / Procedures Referred By Contact Refer red To Contact Diagnoses Tibia fracture Trauma Procedures ER IPI Admit Referral ID Status Reason Start Date Expiration Date Visits Requ ested Visits Authorized [id number] 1 1 Encounter Details Date Type Department Care Team Description 01/06/2020 - [facility] [place] [facility] [place] [address] Closed displaced 01/09/2020 [facility] Yolanda Still MD [facility] [place] [address] comminuted fracture at [facility] of shaft of left [facility] tibia wit h routine Drive healing, [place] encounter [id number] Social History Tobacco Use Types Packs/Day Years [...] Sign Reading Time Taken Comments Blood Pressure 105/58 01/09/2020 1:14 PM EST Pulse 64 01/08/2020 4:00 PM EST Temperature 36.9 ??C (98.4 ??F) 01/09/2020 1:14 PM EST Respiratory Rate 18 01/09/2020 1:14 PM EST Oxygen Saturation 100% 01/09/2020 1:14 PM EST Inhaled Oxygen Concentration - - Weight 56.7 kg (125 lb) 01/06/2020 4:01 PM EST Height 165.1 cm (5' 5) 01/06/2020 4:01 PM EST Body Mass Index 20.8 01/06/2020 4:01 PM EST documented in this encounter Discharge Summaries Hetal Lambert PA - 01/09/2020 4:00 PM EST Discharge Summary Patient Name: Kalyn Darnell Case Patient Age: 59 y.o. Language: Burundian Race: White Ethnicity: Not nor Admit date: 01/06/2020 Discharge date and time: 01/09/2020 Attending Physician: Yolanda Still MD Discharge Physician: Yolanda Still MD Follow-up Recommendations for Providers: See discharge instructions for additional details. Future Appointments Date Time Provider Department Center 01/23/2020 9:15 AM [facility] DX ROOM 3 Xray [facility] Rad 01/23/2020 10:20 AM Yolanda Still MD [facility] ORTH 3C [facility] 01/27/2020 2:00 PM Carrillo Rogel MD [facility] Inpatient Provider Contact Information: Yolanda Still MD Orthopedics: [phone] After hours and weekends, call [facility] Tire Maker, , and have the Orthopedic resident paged. Discharge Diagnoses (Hospital Problems) and Secondary Diagnoses (Chronic Problems): Active Hospital Problems Diagnosis ??? Postoperative anemia due to acute blood loss ??? ACL tear ??? Tibia fracture Resolved Hospital Problems No resolved problems to display. Active Non-Hospital Problems Diagnosis ??? Danny's thyroiditis ??? Lower urinary tract symptoms (LUTS) ??? History of nephrolithiasis ??? Renal cyst, acquired ??? NELSON (stress urinary incontinence, female) ??? Cystocele, midline ??? Disorder of muscle, ligament, and fascia ??? Pelvic floor dysfunction ??? Chronic constipation ??? Mixed stress and urge urinary incontinence ??? DJD (degenerative joint disease) of cervical spine ??? Left ulnar fracture Operations/Major Procedures: 01/06/2020 Surgeon(s) and Role: * Yolanda Still MD - Primary * Judd Lyon MD - Resident Procedure(s): APPLICATION OF A UNIPLANE, UNILATERAL, EXT FIXATION SYS, LOWER EXTREMITY (WRVU 8.78) History of Presentation: Kalyn Burgos is a 59 y.o. female who sustained a left proximal tibia fracture after a fall while skiing 2 days ago. The patient was subsequently transferred to [facility] where was noted that she had threatened skin anteriorly. She was subsequently placed into external fixation. Her skin was inspected this morning and her degree of swelling was deemed amenable to internal fixation today. After an extensive discussion with the patient regarding the risks and benefits of surgical versus nonoperativemanagement of her injury, the patient elected to proceed with open reduction and internal fixation of her left proximal tibia fracture. Hospital Course: Kalyn Burgos was admitted from the Emergency Department for evaluation and treatment of the aboveinjury. On HD#1 she was taken to surgery for the above procedure. She tolerated the procedure and did well post-operatively. On HD#2 the patients soft tissues were amendable to definitive ORIF. She returned to the OR that day. The patient was started on oral pain medications. The patient was referred to PT for mobility training - non-weight bearing of left leg. She was noted to have instabilityintraoperatively. An MRI obtained on HD#3 showed a low grade ACL tear. Patient was instructed to continue wearing Ronnie brace. The patient was voiding spontaneously in good amounts. She did not havea bowel movement prior to discharge but was passing flatus and was taking po without difficulty. OnHD#4 the patient was medically clear with stable vital signs and determined safe for discharge to rehab. Vital Signs at Discharge: Weight: Wt Readings from Last 1 Encounters: 01/06/20 56.7 kg (125 lb) Height: Ht Readings from Last 1 Encounters: 01/06/20 165.1 cm (5' 5) HC: HC Readings from Last 1 Encounters: No data found for HC BMI: Body mass index is 20.8 kg/m??. Last value Range last 24 hrs Temperature Temp: 36.9 ??C (98.4 ??F) Temp: [36.6 ??C (97.9 ??F)-37.2 ??C (99 ??F)] Heart Rate Heart Rate: 64 Heart Rate: -- Blood Pressure BP: 105/58 BP: (85-105)/(54-59) Respiratory Rate Resp: 18 Resp: [14-18] SpO2 SpO2: 100 % SpO2: [98 %-100 %] Art BP BP (Arterial Line): -- Functional and Cognitive Status: Patient mobilizing with FWW/wheelchair, cognitively intact at baseline mental status at time of discharge. Important Lab Data: Last 3 wbc, hgb, hct plt Recent Labs 01/09/20 0833 01/07/20 0158 01/06/20 1841 WBC 6.0 7.5 8.6 HGB 8.3* 9.8* 10.6* HCT 25.7* 30.4* 32.5* PLATELET 150 195 195 Last 3 Lytes Recent Labs 01/09/20 0833 01/07/20 0158 01/06/20 1841 NA 137 135 139 K 4.3 3.8 3.6 CL 100 101 105 CO2 29 23 23 BUN 9 9 10 CREATININE 0.69* 0.78 0.76 Last 3 HgbA1C No results for input(s): HA1C in the last 7068 hours. Studies: Ct Head Wo Contrast (generic) Result Date: 01/06/2020 EXAMINATION: CT HEAD WO CONTRAST (GENERIC) CLINICAL HISTORY: Head trauma, minor, normal mental status (Age 19-64y) TECHNIQUE: CT head performed without intravenous contrast administration. COMPARISON: None FINDINGS: No intracranial hemorrhage, mass, mass effect, hydrocephalus, midline shift, or large acute infarction. The subarachnoid spaces are normal. No significant osseous abnormality. The visualized portions of the paranasal sinuses and mastoid air cells are clear. Normal study. Thank you for letting us participate in the care of this patient. For questions regarding this report, please contact the number below. Ct Knee Wo Contrast Left (generic) Result Date: 01/07/2020 EXAMINATION: CT KNEE WO CONTRAST LEFT (GENERIC) CLINICAL HISTORY: Trauma with proximal tibia fracture pre-operative planning- please scan through entirety of tibial fracture TECHNIQUE: CT of the left knee performed without intravenous contrast COMPARISON: Radiographs of the left knee from December FINDINGS: There is redemonstration of a highly comminuted displaced fracture of the proximal tibial diaphysis. Fracture is comminuted with displacement and depression fracture of the central posterior aspect of both the middle and lateral tibial plateau with fragmentation of the tibial spines. There is a minimally displaced depressed fracture of the posterior lateral aspect of the lateral tibialplateau. Fracture extends inferiorly to involve the medial and lateral cortex of the proximal tibialdiaphysis with comminution. There is approximately 8mm anterior displacement of the distal fracture fragment and mild apex anterior angulation. There is a comminuted fracture of the fibula head and neck with fracture extending into the proximal tibial talar fibular articulation. The distal femur and patella are intact. Incidental note of a small fabella. There is a moderate to large knee joint effusion and diffuse superficial soft tissue stranding and edema. External fixation pins traverse the distal femoral and mid tibial diaphysis. 1. Highly comminuted fracture of the medial and tibial lateral plateau fracture extending to the metadiaphysis, Schatzker 6. 2. Comminuted displaced fracture of the proximal fibula. Thank you for letting us participate in the care of this patient. For questions regarding this report, please contact the number below. Electronically signed by: Sienna Sherman [facility] [place] ([phone]), at 01/07/2020 5:53 AM Pending Studies and Lab Data at Discharge: * No orders in the log * Transfusions: No Discharge Conditions/Prognosis: Stable, awake, and alert. Mobilizing as noted above, pain controlled on oral medications. Discharge to: Rehab [facility] and [address] [address] Updated Allergies/ADRs: Allergies Allergen Reactions ??? Milk Diarrhea ??? Tetracycline Nausea Only ??? Wheat Other (See Comments) Gastrointestinal distress Immunizations Given this Hospitalization: There is no immunization history on file for this patient. Discharge Medications: Your Medications New Medications Dose Details acetaminophen 500 mg Tab Commonly known as: Tylenol Take 2 tablets by mouth every 6 hours. 1,000 mg Quantity: 90 tablet Refills: 1 cyclobenzaprine 10 mg Tab Commonly known as: Flexeril Take 1 tablet by mouth 3 times daily as needed for Muscle spasms. 10 mg Quantity: 10 tablet Refills: 0 enoxaparin 30 mg/0.3 mL Syrg Commonly known as: LOVENOX Inject 0.3 mLs subcutaneously 2 times daily for 29 days. 30 mg Quantity: 58 Syringe Refills: 0 gabapentin 300 mg Cap Commonly known as: Neurontin Take 1 capsule by mouth 3 times daily. 300 mg Quantity: 60 capsule Refills: 0 HYDROmorphone 2 mg Tab Commonly known as: Dilaudid Take 1-2 tablets by mouth every 4 hours as needed for Pain (1 tab for moderate pain (4-6) or 2 tabs for severe pain (7-10)). 2-4 mg Quantity: 40 tablet Refills: 0 polyethylene glycol 17 gram Pwpk Commonly known as: Miralax Take 17 g by mouth 2 times daily. 17 g Quantity: 14 each Refills: 0 senna-docusate 8.6-50 mg Tab Commonly known as: Pericolace Take 2 tablets by mouth 2 times daily. 2 tablet Quantity: 60 tablet Refills: 0 Continued medications, unchanged Dose Details b complex vitamins Cap Take 1 capsule by mouth daily. 1 capsule Refills: 0 Ciclesonide 50 mcg [place] Commonly known as: Omnaris INSTILL TWO SPRAYS IN EACH NOSTRIL TWICE A DAY Quantity: 12.5 g Refills: 0 FLUoxetine 10 mg Tab Commonly known as: PROzac Take 10 mg by mouth 3 times daily. 10 mg Refills: 0 GLUTATHIONE ORAL Take by mouth daily. Refills: 0 IODINE ORAL Take 2.5 mg by mouth daily. 2.5 mg Refills: 0 Rwlquofo4-Ktamdh7-Rkvrf therm. 112.5 billion cell Cap Commonly known as: Visbiome Take 3 capsules by mouth daily. 3 capsule Quantity: 90 capsule Refills: 3 NAC ORAL Take by mouth. Refills: 0 STOPPED Medications lactobacillus rhamnosus (GG) 10 billion cell Cap Commonly known as: CULTURELLE Smoking Status at Discharge: Social History Tobacco Use Smoking Status Never Smoker Smokeless Tobacco Never Used Tobacco Comment Exposure to smoking in the home until the age of 16 Instructions for Rehab Providers or PCP: See below. Instructions Given to Patient at Discharge: Patient Instructions Orthopedic Surgery Discharge Instructions 1. Left proximal tibia fracture s/p ORIF and partial ACL tear. Activity level: 1. You are Non-weight bearing on your Left leg. ROM of knee as tolerated in Ronnie brace at all times except for hygiene purposes and skin checks. 2. Remember to use the walker or crutches at all times for protection and balance. 3. Remember to keep your Left leg elevated as much as possible to decrease swelling and control pain. Anticoagulation: Lovenox - You have been discharged on Lovenox injections (30mg BID) for 30 days oruntil your mobility improves and surgeon instructs you to stop. Diet: You may return to your usual diet, but increase your fluids and fiber intake to keep you hydrated and your bowels soft. To help with wound healing increase your intake of high protein foods and fluids. Driving: None until you are cleared to do so by your Orthopedic surgeon. You should not drive whileyou are on narcotic pain meds as they can affect your judgment and reaction time. Call your surgeon with any questions/concerns. Medications: 1. The pain medication you are on can cause constipation so increase your intake of fluids and fiber while you are on them. The stool softener, Pericolace, that has been prescribed can also be taken to facilitate a bowel movement. You can also take an qvyb-xnq-klfwkdo medication, Miralax if needed to combat constipation. 2. If you need a renewal on your narcotic pain medication, you need to give the Orthopedic clinic enough time to process your request. This can take up to three days, so plan accordingly. 3. Continue acetaminophen (Tylenol) 1,000mg every 8 hours as needed for pain. This can be effectivein controlling pain along with your other medications. After that you can take Tylenol as needed perpackage insert. Do not take more than 3,000mg of acetaminophen in a 24 hour period. 4. You have been discharged on a short acting narcotic. You will be on this medication for a limited period of time only. Taper off this medication as your pain improves. 5. You may take NSAIDs including ibuprofen, Motrin or Aleve. Take this medication as directed on the package label and with food to avoid GI upset. Shower/Bath: You may shower BUT use a waterproof dressing (plastic bag taped at the top) to cover the incision/dressing. DO NOT submerge the wound. Remember you MUST to observe your weight bearing status and activity limitations when you shower so use a chair or bench for balance if you are unable tosafely stand. A sponge bath may be easier. Wound Care: 1. Suture/staple removal 2 weeks post-op (to be removed at your follow up appointment). 2. Keep operative dressing in place for the next week (remove on 01/15/20). After that you can change the dressing as needed or leave the wound open to air. A dry dressing after this may protect your clothing or decrease wound sensitivity. Call your doctor ([phone]) if you develop: 1. Fever greater than 100.5 2. Severe nausea or vomiting 3. Increasing pain that is not controlled by pain medications 4. Increasing redness, swelling, or drainage from incisions 5. Change in sensation Misc: 1. If you are a smoker, quitting is very important to help your fracture heal. You should contact your PCP to assist you with setting up a cessation program. 2. Remember that ICE and elevation are very important to help decrease swelling and control pain. You should use the ICE for 20-30 minutes at a time. 3. To help with bone healing and your overall bone health, your intake of calcium should be at least 1200mg a day and your vitamin D intake should be at least 800 IU per day. FOLLOW-UP APPOINTMENTS: 1. You will have follow-up appointments at [facility] as indicated in Future Appointment and Orders. You will have an xray prior to those appointments so please come to Radiology, desk 3T, 1 hour BEFORE your appointment for those x- rays on 01/23/20. 2. If you are being discharged over the weekend or at night and do not have a scheduled appointmentwith Orthopedics, you should be notified about your appointment within the next 1-2 days. Please call if you do not hear about an appointment within that timeframe, as your follow-up isimportant to us. Future Appointments Date Time Provider Department Center 01/23/2020 9:15 AM [facility] DX ROOM 3 MH Xray [facility] Rad 01/23/2020 10:20 AM Yolanda Still MD [facility] ORTH 3C [facility] 01/27/2020 2:00 PM Carrillo Rogel MD [facility] If you have questions or concerns: Sunday through Sunday, 8 AM - 5 PM, please call Yolanda Still MD, MD's office at . If it is after 5 PM or on the weekend, please call and ask to speak with the Orthopedic resident on-call. General Instructions None Future Appointments and Orders Future Appointments and Orders Future Appointments Provider Department Dept Phone 01/23/2020 9:15 AM [facility] DX ROOM 3 XRay at [facility] Arrive at: Utility Appraiser Area [phone] Please go to Utility Appraiser Area ([place] Location). 01/23/2020 10:20 AM Yolanda Still MD Orthopaedics at [facility] Arrive at: Utility Appraiser Area [phone] 01/27/2020 2:00 PM Carrillo Rogel MD [facility] Arrive at: Utility Appraiser [address] [place] [address] Future Orders Complete By Expires XR Knee 1-2 Views Left (Generic) [79100 Custom] 01/14/2020 (Approximate) 07/15/2020 Process Instructions: Scheduling Instructions: Comments: Questions: Where will study be performed?: [facility] Radiology Portable exam?: Reason for exam and clinical history: S/p ex-fix Clinical information / shah questions: Stat read required?: Date of injury if applicable: Requested Time: XR Tibia Fibula Left (Generic) [24061 Custom] 01/14/2020 (Approximate) 07/15/2020 Process Instructions: Scheduling Instructions: Questions: Where will study be performed?: [facility] Radiology Portable exam?: Reason for exam and clinical history: s/p L ex-fix Clinical information / shah questions: Stat read required?: Date of injury if applicable: Requested Time: XR Tibia Fibula Left (Generic) [81541 Custom] 01/22/2020 (Approximate) 07/23/2020 Process Instructions: Scheduling Instructions: Questions: Where will study be performed?: [facility] Radiology Portable exam?: Reason for exam and clinical history: s/p ORIF L tibia fracture Clinical information / shah questions: Stat read required?: Date of injury if applicable: Requested Time: Primary Care Provider: April Cummins APRN [phone] Discharge References/Attachments None documented in this encounter Discharge Instructions Patient InstructionsHetal Lambert PA - 01/09/2020 3:52 PM EST Orthopedic Surgery Discharge Instructions 1. Left proximal tibia fracture s/p ORIF and partial ACL tear. Activity level: 1. You are Non-weight bearing on your Left leg. ROM of knee as tolerated in [place] brace at all times except for hygiene purposes and skin checks. 2. Remember to use the walker or crutches at all times for protection and balance. 3. Remember to keep your Left leg elevated as much as possible to decrease swelling and control pain. Anticoagulation: Lovenox - You have been discharged on Lovenox injections (30mg BID) for 30 days oruntil your mobility improves and surgeon instructs you to stop. Diet: You may return to your usual diet, but increase your fluids and fiber intake to keep you hydrated and your bowels soft. To help with wound healing increase your intake of high protein foods and fluids. Driving: None until you are cleared to do so by your Orthopedic surgeon. You should not drive whileyou are on narcotic pain meds as they can affect your judgment and reaction time. Call your surgeon with any questions/concerns. Medications: 1. The pain medication you are on can cause constipation so increase your intake of fluids and fiber while you are on them. The stool softener, Pericolace, that has been prescribed can also be taken to facilitate a bowel movement. You can also take an qfww-thh-qxjrlgh medication, Miralax if needed to combat constipation. 2. If you need a renewal on your narcotic pain medication, you need to give the Orthopedic clinic enough time to process your request. This can take up to three days, so plan accordingly. 3. Continue acetaminophen (Tylenol) 1,000mg every 8 hours as needed for pain. This can be effectivein controlling pain along with your other medications. After that you can take Tylenol as needed perpackage insert. Do not take more than 3,000mg of acetaminophen in a 24 hour period. 4. You have been discharged on a short acting narcotic. You will be on this medication for a limited period of time only. Taper off this medication as your pain improves. 5. You may take NSAIDs including ibuprofen, Motrin or Aleve. Take this medication as directed on the package label and with food to avoid GI upset. Shower/Bath: You may shower BUT use a waterproof dressing (plastic bag taped at the top) to cover the incision/dressing. DO NOT submerge the wound. Remember you MUST to observe your weight bearing status and activity limitations when you shower so use a chair or bench for balance if you are unable tosafely stand. A sponge bath may be easier. Wound Care: 1. Suture/staple removal 2 weeks post-op (to be removed at your follow up appointment). 2. Keep operative dressing in place for the next week (remove on 01/15/20). After that you can change the dressing as needed or leave the wound open to air. A dry dressing after this may protect your clothing or decrease wound sensitivity. Call your doctor ([phone]) if you develop: 1. Fever greater than 100.5 2. Severe nausea or vomiting 3. Increasing pain that is not controlled by pain medications 4. Increasing redness, swelling, or drainage from incisions 5. Change in sensation Misc: 1. If you are a smoker, quitting is very important to help your fracture heal. You should contact your PCP to assist you with setting up a cessation program. 2. Remember that ICE and elevation are very important to help decrease swelling and control pain. You should use the ICE for 20-30 minutes at a time. 3. To help with bone healing and your overall bone health, your intake of calcium should be at least 1200mg a day and your vitamin D intake should be at least 800 IU per day. FOLLOW-UP APPOINTMENTS: 1. You will have follow-up appointments at [facility] as indicated in Future Appointment and Orders. You will have an xray prior to those appointments so please come to Radiology, desk 3T, 1 hour BEFORE your appointment for those x- rays on 01/23/20. 2. If you are being discharged over the weekend or at night and do not have a scheduled appointmentwith Orthopedics, you should be notified about your appointment within the next 1-2 days. Please call if you do not hear about an appointment within that timeframe, as your follow-up isimportant to us. Future Appointments Date Time Provider Department Center 01/23/2020 9:15 AM [facility] DX ROOM 3 MH Xray [facility] Rad 01/23/2020 10:20 AM Yolanda Still MD [facility] ORTH 3C [facility] 01/27/2020 2:00 PM Carrillo Rogel MD [facility] If you have questions or concerns: Sunday through Sunday, 8 AM - 5 PM, please call Yolanda Still MD, 's office at . If it is after 5 PM or on the weekend, please call and ask to speak with the Orthopedic resident on-call. documented in this encounter Medications at Time of Discharge Medication Sig Dispensed Refills Start Date End Date polyethylene glycol Take 17 g by mouth 2 14 each 0 2019 (Miralax) 17 gram times daily. Powder in Packet Ciclesonide (OMNARIS) INSTILL TWO SPRAYS IN 12.5 g 0 50 mcg [place], EACH NOSTRIL TWICE A Non-Aerosol DAY Mulyglre9-Hfotig0-Ftslv Take 3 capsules by 90 capsule 3 [...] mouth 3 0 mg Tablet times daily. enoxaparin (LOVENOX) 30 Inject 0.3 mLs 58 [...] Muscle spasms. documented as of this encounter Progress Notes Dennis Ronquillo MD - 01/09/2020 4:53 PM EST Attempted to call patient via both numbers in chart with no reply to assess for resolution of nerve block. Please page regional service at [phone] if any concerns for residual nerve block symptoms. Dennis Ronquillo MD 01/13/20 Seda Major - 01/09/2020 4:14 PM EST Office of Care Management(OCM)/Manager Beauty(RS) Patient Name: Kalyn Burgos : 1960 Patient has been offered a swing bed at [facility]. [facility] arranged for a 4:30 transport. Ambulance will need: Medicare ambulance form completed and signed (MD or [employer] Consultant) Copy of patient demographics [place] [facility] DNR/DNI order, if active Please have MD call Dr. Cutler at [phone]: Please call Nursing Report to [phone], ask for sleeve setter safety stitch. Info to accompany patient: Narcotic Prescriptions Copies of Medication Administration Records and IV sheets for past two weeks. Plan: Manager Beauty will be available to the patient and [employer] Consultant for further assistance. Patient will be discharged to: [address] [address] Seda Villavicencio Manager Beauty Sanjuana Schafer RN - 01/09/2020 4:11 PM EST Patient discharged to [facility]. New paper Rx handed to patient. PIV removed. Patient left [address] in via ambulance. Report called Hipolito at [facility]. [phone]. Activity level: 1. You are Non-weight bearing on your Left leg. ROM of knee as tolerated in [place] brace at all times except for hygiene purposes and skin checks. 2. Remember to use the walker or crutches at all times for protection and balance. 3. Remember to keep your Left leg elevated as much as possible to decrease swelling and control pain. Karol Yates - 01/09/2020 3:05 PM EST Office of Care Management-System Liaison Reviewed medical record, discussed with primary [employer] Consultant, Ashley Conrad. Met with Kalyn Burgos to discuss swing level of care and provided specific information about [facility], which patient has been referred to for inpatient rehabilitation. Informed Kalyn Burgos of referral review process that occurs. Discussed discharge disposition post rehab. Answered patient's questions. Patient will be followed by primary mental health case manager for discuss all choices and options Provided my contact number if any further questions regarding rehab or specific facility Will continue to follow along with patient's primary mental health case manager. System Liaison will continue to assist with any discharge needs related to the above facility as needed. Karol Jeffers RN BSN CRRN System Liaison [employer] Consultant Ashley Conrad RN - 01/09/2020 1:50 PM EST Based on discussions with the multi-disciplinary healthcare team, the patient would benefit from assisted level of care at discharge. ?? 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 I have provided the [facility], Office of Care Management letter from the [employer] pertaining to rehab referrals. I have also provided a letter describing our affiliations within the [facility] and educated them about their right to choose where referrals are placed. ?? I reviewed the different levels of rehab including SNF, swing, acute and LTAC with the patient/sales representative printing supplies. ?? The patient/sales representative printing supplies has been provided a list of facilities within their preferred geographic area. ?? I have requested that the patient/sales representative printing supplies provide at least three choices for referral. ?? The patient/sales representative printing supplies have requested referrals to: 1. [facility] ([facility]) ?? PHONE: [phone] FAX: [phone] 2. [facility] ([facility] [address] [place] [address] ?? [phone] ? Expected date of discharge: 01/09/2020 Note routed to Manager Beauty who will communicate referrals to facilities and provide any required information. Rasta Em MD - 01/09/2020 6:57 AM EST ORTHOPAEDIC SURGERY INPATIENT Progress Note Patient Name: Kalyn Darnell Case Age: 59 y.o. Surgery/Issue: ORIF L proximal tibia fracture Attending: Yolanda Still MD Date of surgery: 01/08/2020 SUBJECTIVE / INTERVAL HISTORY: NAEON. Complains of pain overnight, improved this am. Has not been OOB yet. Denies cp/sob/n/v. Does endorse some decreased sensation globally throughout foot, but remains able to distinguish light touch. FOCUSED REVIEW OF SYSTEMS: as above. Active Hospital Problems Diagnosis ??? Tibia fracture Resolved Hospital Problems No resolved problems to display. Active Non-Hospital Problems Diagnosis ??? Danny's thyroiditis ??? Lower urinary tract symptoms (LUTS) ??? History of nephrolithiasis ??? Renal cyst, acquired ??? NELSON (stress urinary incontinence, female) ??? Cystocele, midline ??? Disorder of muscle, ligament, and fascia ??? Pelvic floor dysfunction ??? Chronic constipation ??? Mixed stress and urge urinary incontinence ??? DJD (degenerative joint disease) of cervical spine ??? Left ulnar fracture MEDICATIONS: ??? acetaminophen (Tylenol) tablet 1,000 mg ??? cyclobenzaprine (Flexeril) tablet 10 mg ??? Dextromethorphan HBr 5 mg/5 mL oral syrup 15 mg ??? HYDROmorphone (DILAUDID) injection 0.5 mg ??? gabapentin (Neurontin) capsule 300 mg ??? lidocaine (LIDODERM) 5 % patch 3 patch AND lidocaine (LIDODERM) patch REMOVAL ??? ceFAZolin (ANCEF) 1g in dextrose 5% 50mL ??? HYDROmorphone (Dilaudid) tablet 2 mg OR HYDROmorphone (Dilaudid) tablet 4 mg OR HYDROmorphone (Dilaudid) tablet 6 mg ??? FLUoxetine (PROzac) capsule 20 mg ??? lactated ringers infusion ??? sodium chloride 0.9 % (flush) flush 5 mL ??? sodium chloride 0.9 % (flush) flush 5-20 mL ??? lidocaine (XYLOCAINE) 10 mg/mL (1 %) injection 3 mg ??? polyethylene glycol (Miralax) packet 17 g ??? senna-docusate (Pericolace) 8.6-50 mg per tablet 2 tablet ??? ondansetron (ZOFRAN) injection 4 mg ??? enoxaparin (LOVENOX) injection 40 mg ??? lactated Ringers Stopped (01/08/20 0354) OBJECTIVE: Temp: [36.3 ??C (97.3 ??F)-37.3 ??C (99.1 ??F)] Heart Rate: [60-66] Resp: [10-21] BP: (85-112)/(53-70) Intake/Output Summary (Last 24 hours) at 01/09/2020 0657 Last data filed at 01/09/2020 0500 Gross per 24 hour Intake 1000 ml Output 4630 ml Net -3630 ml Body mass index is 20.8 kg/m??. PE: General: drowsy, responds to questions CV: RRR assessed peripherally Resp: Breathing comfortably on RA LLE: Dressing c/d/i Sensory intact to light touch in S/S/T/SP/DP Motor intact to FHL/EHL/APF/ADF Brisk capillary refill distally, foot warm/well-perfused Lab Results Component Value Date NA 135 01/07/2020 K 3.8 01/07/2020 CL 101 01/07/2020 CO2 23 01/07/2020 BUN 9 01/07/2020 CREATININE 0.78 01/07/2020 GLUCOSE 150 01/07/2020 CALCIUM 8.6 01/07/2020 Lab Results Component Value Date WBC 7.5 01/07/2020 HGB 9.8 (L) 01/07/2020 HCT 30.4 (L) 01/07/2020 MCV 95.9 (H) 01/07/2020 PLATELET 195 01/07/2020 Lab Results Component Value Date INR 1.2 01/06/2020 IMAGING: MARS MRI pending to evaluate ligamentous injury to left knee ASSESSMENT / PLAN: Kalyn Darnell Case is a 59 y.o. female 1 Day Post-Op s/p ORIF L proximal tibia fracture. Stable on floor post-operatively. Will obtain MARS MRI of L knee to evaluate for ligamentous injury given laxity on exam under anesthesia. Plan to mobilize with PT/OT today. Andrade out this am once OOB. Activity: NWB LLE, knee ROM as tolerated DVT prophylaxis: Lovenox 40mg SQ/day for 30 days Closure: Nylons, remove 2-3 weeks Dressing: Mepilex x 7 days Antibiotics: Ancef x 24 hours Rasta Em MD 01/09/2020 Future Appointments Date Time Provider Department Center 01/23/2020 9:15 AM [facility] DX ROOM 3 MH Xray [facility] Rad 01/23/2020 10:20 AM Yolanda Still MD [facility] ORTH 3C [facility] 01/27/2020 2:00 PM Carrillo Rogel MD [facility] Associated attestation - Yolanda Still MD - 01/09/2020 9:01 AM EST Patient seen and examined. Agree with resident note. NWB LLE. MRI to evaluate knee ligaments/posterolateral corner. Carmen Still MD Department of Orthopaedics 01/09/20 Raymond Tam MD - 01/09/2020 12:04 AM EST ORTHOPAEDIC SURGERY INPATIENT POST OP NOTE Patient Name: Kalyn Darnell Case Age: 59 y.o. Surgery/Issue: ORIF L proximal tibia fracture Attending: Yolanda Still MD Date of surgery: 01/08/2020 SUBJECTIVE / INTERVAL HISTORY: Patient denies chest pain, shortness of breath, nausea, vomiting, numbness/weakness. Pain well-controlled. Reporting feeling very tired. FOCUSED REVIEW OF SYSTEMS: as above. Active Hospital Problems Diagnosis ??? Tibia fracture Resolved Hospital Problems No resolved problems to display. Active Non-Hospital Problems Diagnosis ??? Danny's thyroiditis ??? Lower urinary tract symptoms (LUTS) ??? History of nephrolithiasis ??? Renal cyst, acquired ??? NELSON (stress urinary incontinence, female) ??? Cystocele, midline ??? Disorder of muscle, ligament, and fascia ??? Pelvic floor dysfunction ??? Chronic constipation ??? Mixed stress and urge urinary incontinence ??? DJD (degenerative joint disease) of cervical spine ??? Left ulnar fracture MEDICATIONS: ??? acetaminophen (Tylenol) tablet 1,000 mg ??? cyclobenzaprine (Flexeril) tablet 10 mg ??? Dextromethorphan HBr 5 mg/5 mL oral syrup 15 mg ??? HYDROmorphone (DILAUDID) injection 0.5 mg ??? gabapentin (Neurontin) capsule 300 mg ??? lidocaine (LIDODERM) 5 % patch 3 patch AND lidocaine (LIDODERM) patch REMOVAL ??? ceFAZolin (ANCEF) 1g in dextrose 5% 50mL ??? HYDROmorphone (Dilaudid) tablet 2 mg OR HYDROmorphone (Dilaudid) tablet 4 mg OR HYDROmorphone (Dilaudid) tablet 6 mg ??? FLUoxetine (PROzac) capsule 20 mg ??? lactated ringers infusion ??? sodium chloride 0.9 % (flush) flush 5 mL ??? sodium chloride 0.9 % (flush) flush 5-20 mL ??? lidocaine (XYLOCAINE) 10 mg/mL (1 %) injection 3 mg ??? polyethylene glycol (Miralax) packet 17 g ??? senna-docusate (Pericolace) 8.6-50 mg per tablet 2 tablet ??? ondansetron (ZOFRAN) injection 4 mg ??? enoxaparin (LOVENOX) injection 40 mg ??? lactated Ringers Stopped (01/08/20 0354) OBJECTIVE: Temp: [36.3 ??C (97.3 ??F)-37.3 ??C (99.1 ??F)] Heart Rate: [60-66] Resp: [10-22] BP: (85-112)/(53-70) Intake/Output Summary (Last 24 hours) at 01/09/2020 0004 Last data filed at 01/08/2020 2100 Gross per 24 hour Intake 2707 ml Output 7230 ml Net -4523 ml Body mass index is 20.8 kg/m??. PE: General: drowsy, responds to questions CV: RRR assessed peripherally Resp: Breathing comfortably on RA LLE: Dressing c/d/i Sensory intact to light touch in lat fem cut/fem/sural/saph/SP/DP/T Motor intact to FHL/EHL/TA, knee extension/flexion, hip extension/flexion Brisk capillary refill distally, foot warm/well-perfused Lab Results Component Value Date NA 135 01/07/2020 K 3.8 01/07/2020 CL 101 01/07/2020 CO2 23 01/07/2020 BUN 9 01/07/2020 CREATININE 0.78 01/07/2020 GLUCOSE 150 01/07/2020 CALCIUM 8.6 01/07/2020 Lab Results Component Value Date WBC 7.5 01/07/2020 HGB 9.8 (L) 01/07/2020 HCT 30.4 (L) 01/07/2020 MCV 95.9 (H) 01/07/2020 PLATELET 195 01/07/2020 Lab Results Component Value Date INR 1.2 01/06/2020 IMAGING: XR Tibia Fibula Left FINDINGS: ORIF of comminuted proximal tibial fracture with a laterally oriented plate and 11 threaded interlocking screws. There is good alignment of fractures site. A linear fracture component, oriented medially, is from the parent bone by 5.5 mm. A comminuted fracture of the proximal fibular shaft extending into the head is once again identified and has not ranged in position with good alignment. There is good alignment at the knee joint. Fractures of the intercondylar tibial spines are noted. Plateau extension is not well appreciated on the current radiograph. Suprapatellar effusion is evident. There is good alignment at the ankle joint. There is postoperative air and edema. ?? IMPRESSION ORIF of proximal comminuted tibial fracture with good alignment. MRI Knee wo Contrast Left Pending result ASSESSMENT / PLAN: Kalyn Darnell Case is a 59 y.o. female 1 Day Post-Op s/p ORIF L proximal tibia fracture. Doing well post-operatively. - Hemodynamically stable - Pain well controlled - UOP adequate Activity: NWB LLE, knee ROM as tolerated DVT prophylaxis: Lovenox 40mg SQ/day for 30 days Closure: Nylons, remove 2-3 weeks Dressing: Mepilex x 7 days Antibiotics: Ancef x 24 hours Raymond Tam MD 01/09/2020 Future Appointments Date Time Provider Department Center 01/12/2020 10:00 AM [facility] DX ROOM 1 MH Xray [facility] Rad 01/12/2020 10:30 AM Yolanda Still MD [facility] ORTH 3A [facility] 01/27/2020 2:00 PM Carrillo Rogel MD [facility] Associated attestation - Yolanda Still MD - 01/09/2020 6:32 AM EST Patient seen and examined. Agree with resident note. Carmen Still MD Department of Orthopaedics 01/09/20 Sanjuana Solomon RN - 01/08/2020 4:13 PM EST Received report from Afua in PACU. Arrived to room 212 at __. A&O x4. VSS. Pain 01/05. SCD'son right leg only. Patient went to OR today for ORIF, in brace that is locked. Afua Ramachandran RN - 01/08/2020 3:12 PM EST Patient admitted to PACU. Hand off received from Sam Bland MD. care assumed. Assessments as documented. Monitors on, alarms audible and individualized to patient. 1600 PACU D/C criteria met 1610 hand off to Ofelia Haines RN 2 deep water Carrillo Manley MD - 01/08/2020 6:30 AM EST ORTHOPAEDIC SURGERY INPATIENT POST OP NOTE Patient Name: Kalyn Darnell Case Age: 59 y.o. Surgery/Issue: L knee spanning ex-fix Findings:??L proximal tibia fracture with threatened skin?? Attending: Yolanda Still MD Date of surgery: 01/06/2020 SUBJECTIVE / INTERVAL HISTORY: AFVSS. She endorses issues with pain overnight. She was able to sleep some. 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 She states that flexeril helped with the pain and does not tolerate tylenol because it gives her a headache. She refused to work with PT/OT yesterday and is nervous to do to the pain. Patient denies chest pain, shortness of breath, nausea, vomiting, numbness/weakness. FOCUSED REVIEW OF SYSTEMS: as above. Active Hospital Problems Diagnosis ??? Tibia fracture Resolved Hospital Problems No resolved problems to display. Active Non-Hospital Problems Diagnosis ??? Danny's thyroiditis ??? Lower urinary tract symptoms (LUTS) ??? History of nephrolithiasis ??? Renal cyst, acquired ??? NELSON (stress urinary incontinence, female) ??? Cystocele, midline ??? Disorder of muscle, ligament, and fascia ??? Pelvic floor dysfunction ??? Chronic constipation ??? Mixed stress and urge urinary incontinence ??? DJD (degenerative joint disease) of cervical spine ??? Left ulnar fracture MEDICATIONS: ??? acetaminophen (Tylenol) tablet 1,000 mg ??? cyclobenzaprine (Flexeril) tablet 10 mg ??? Dextromethorphan HBr 5 mg/5 mL oral syrup 15 mg ??? HYDROmorphone (Dilaudid) tablet 2 mg OR HYDROmorphone (Dilaudid) tablet 4 mg OR HYDROmorphone (Dilaudid) tablet 6 mg ??? FLUoxetine (PROzac) capsule 20 mg ??? lactated ringers infusion ??? sodium chloride 0.9 % (flush) flush 5 mL ??? sodium chloride 0.9 % (flush) flush 5-20 mL ??? lidocaine (XYLOCAINE) 10 mg/mL (1 %) injection 3 mg ??? polyethylene glycol (Miralax) packet 17 g ??? senna-docusate (Pericolace) 8.6-50 mg per tablet 2 tablet ??? ondansetron (ZOFRAN) injection 4 mg ??? enoxaparin (LOVENOX) injection 40 mg ??? lactated Ringers Stopped (01/08/20 0354) OBJECTIVE: Temp: [36.3 ??C (97.3 ??F)-37.6 ??C (99.7 ??F)] Resp: [17-22] BP: (80-102)/(43-55) Intake/Output Summary (Last 24 hours) at 01/08/2020 0630 Last data filed at 01/08/2020 0400 Gross per 24 hour Intake 3525 ml Output 6775 ml Net -3250 ml Body mass index is 20.8 kg/m??. PE: General: awake/alert, responds to questions, anxious but in NAD CV: RRR assessed peripherally Resp: Breathing comfortably on RA LLE: Knee spanning ex-fix in place Dressings mildly saturated with blood Sensory intact to light touch in lat fem cut/fem/sural/saph/SP/DP/T Motor intact to FHL/EHL/TA Brisk capillary refill distally, foot warm/well-perfused Compartments soft to palpation No pain with passive flexion toes Lab Results Component Value Date NA 135 01/07/2020 K 3.8 01/07/2020 CL 101 01/07/2020 CO2 23 01/07/2020 BUN 9 01/07/2020 CREATININE 0.78 01/07/2020 GLUCOSE 150 01/07/2020 CALCIUM 8.6 01/07/2020 Lab Results Component Value Date WBC 7.5 01/07/2020 HGB 9.8 (L) 01/07/2020 HCT 30.4 (L) 01/07/2020 MCV 95.9 (H) 01/07/2020 PLATELET 195 01/07/2020 Lab Results Component Value Date INR 1.2 01/06/2020 IMAGING: CT Knee wo Contrast (left) FINDINGS: There is redemonstration of a highly comminuted displaced fracture of the proximal tibial diaphysis. Fracture is comminuted with displacement and depression fracture of the central posterior aspect of both the middle and lateral tibial plateau with fragmentation of the tibial spines. There is a minimally displaced depressed fracture of the posterior lateral aspect of the lateral tibial plateau. Fracture extends inferiorly to involve the medial and lateral cortex of the proximal tibial diaphysis with comminution. There is approximately 8mm anterior displacement of the distal fracture fragment and mild apex anterior angulation. There is a comminuted fracture of the fibula head and neck with fracture extending into the proximal tibial talar fibular articulation. The distal femur and patella are intact. Incidental note of a small fabella. There is a moderate to large knee joint effusion and diffuse superficial soft tissue stranding and edema. External fixation pins traverse the distal femoral and mid tibial diaphysis. ?? IMPRESSION 1. Highly comminuted fracture of the medial and tibial lateral plateau fracture extending to the metadiaphysis, Schatzker 6. 2. Comminuted displaced fracture of the proximal fibula. ASSESSMENT / PLAN: Kalyn Darnell Case is a 59 y.o. female 2 Days Post-Op s/p L knee spanning ex-fix forL proximal tibia fracture. Doing well post-operatively. We will work on pain control today. Please keep the patient NPO for the time being pending discussion this morning with Dr. Still. Dispo pending PT/OT and pain control. Activity: NWB LLE in ex-fix DVT prophylaxis: Lovenox 40mg SQ/day for 30 days Closure: Ex-fix Dressing: Kerlix, pin site care 1x/day Antibiotics: Ancef x 24 hours Carrillo Manley MD 01/08/2020 Future Appointments Date Time Provider Department Center 01/12/2020 10:00 AM [facility] DX ROOM 1 MH Xray [facility] Rad 01/12/2020 10:30 AM Yolanda Still MD [facility] ORTH 3A [facility] 01/27/2020 2:00 PM Carrillo Rogel MD [facility] Associated attestation - Yolanda Still MD - 01/09/2020 6:32 AM EST Patient seen and examined. Agree with resident note. Plan for MRI to evaluate knee ligaments. Carmen Still MD Department of Orthopaedics 01/09/20 Ashley Conrad RN - 01/07/2020 3:45 PM EST OFFICE OF CARE MANAGEMENT [employer] Consultant Follow-up Note Patient plan of care discussed in multidisciplinary rounds and assessment for continuing care and discharge needs. LOS Hospital: 15 hours INSURANCE: Payor: [place] / Plan: [place] PRIMARY CARE PLUS / Product Type: *No Product type* / SECONDARY INSURANCE: N/A DECISION MAKER: Full Code <no information> Patient continues to require hospitalization. Reviewed case with RINKU Etienne. Current Referral in place: Will need Rehab choices [employer] Consultant to follow with team and family to assist with discharge needs when patient ready for discharge. Ashley Conrad RN Case Management pgr [phone] Carrillo Manley MD - 01/07/2020 6:28 AM EST ORTHOPAEDIC SURGERY INPATIENT POST OP NOTE Patient Name: Kalyn Darnell Case Age: 59 y.o. Surgery/Issue: L knee spanning ex-fix Findings:??L proximal tibia fracture with threatened skin?? Attending: Yolanda Still MD Date of surgery: 01/06/2020 SUBJECTIVE / INTERVAL HISTORY: AFVSS. She endorses pain overnight but was able to sleep. The IV pain medication helped her pain but reports the orals were not as effective. Patient denies chest pain, shortness of breath, nausea, vomiting, numbness/weakness. FOCUSED REVIEW OF SYSTEMS: as above. Active Hospital Problems Diagnosis ??? Tibia fracture Resolved Hospital Problems No resolved problems to display. Active Non-Hospital Problems Diagnosis ??? Danny's thyroiditis ??? Lower urinary tract symptoms (LUTS) ??? History of nephrolithiasis ??? Renal cyst, acquired ??? NELSON (stress urinary incontinence, female) ??? Cystocele, midline ??? Disorder of muscle, ligament, and fascia ??? Pelvic floor dysfunction ??? Chronic constipation ??? Mixed stress and urge urinary incontinence ??? DJD (degenerative joint disease) of cervical spine ??? Left ulnar fracture MEDICATIONS: ??? lactated ringers infusion ??? sodium chloride 0.9 % (flush) flush 5 mL ??? sodium chloride 0.9 % (flush) flush 5-20 mL ??? lidocaine (XYLOCAINE) 10 mg/mL (1 %) injection 3 mg ??? polyethylene glycol (Miralax) packet 17 g ??? senna-docusate (Pericolace) 8.6-50 mg per tablet 2 tablet ??? ondansetron (ZOFRAN) injection 4 mg ??? ceFAZolin (ANCEF) 1g in dextrose 5% 50mL ??? oxyCODONE (Roxicodone) tablet 5 mg OR oxyCODONE (Roxicodone) tablet 10 mg OR oxyCODONE (Roxicodone) tablet 15 mg ??? acetaminophen (Tylenol) tablet 1,000 mg ??? enoxaparin (LOVENOX) injection 40 mg ??? FLUoxetine (PROzac) capsule 10 mg ??? lactated Ringers 75 mL/hr (01/06/202154) OBJECTIVE: Temp: [36.8 ??C (98.2 ??F)-37.1 ??C (98.8 ??F)] Heart Rate: [64-73] Resp: [14-22] BP: (98-144)/(51-78) Intake/Output Summary (Last 24 hours) at 01/07/2020 0628 Last data filed at 01/07/2020 0454 Gross per 24 hour Intake 2011 ml Output 2579 ml Net -567 ml Body mass index is 20.8 kg/m??. PE: General: awake/alert, responds to questions, anxious but in NAD CV: RRR assessed peripherally Resp: Breathing comfortably on RA LLE: Knee spanning ex-fix in place Dressings mildly saturated with blood Sensory intact to light touch in lat fem cut/fem/sural/saph/SP/DP/T Motor intact to FHL/EHL/TA Brisk capillary refill distally, foot warm/well-perfused Compartments soft to palpation No pain with passive flexion toes Lab Results Component Value Date NA 135 01/07/2020 K 3.8 01/07/2020 CL 101 01/07/2020 CO2 23 01/07/2020 BUN 9 01/07/2020 CREATININE 0.78 01/07/2020 GLUCOSE 150 01/07/2020 CALCIUM 8.6 01/07/2020 Lab Results Component Value Date WBC 7.5 01/07/2020 HGB 9.8 (L) 01/07/2020 HCT 30.4 (L) 01/07/2020 MCV 95.9 (H) 01/07/2020 PLATELET 195 01/07/2020 Lab Results Component Value Date INR 1.2 01/06/2020 IMAGING: CT Knee wo Contrast (left) FINDINGS: There is redemonstration of a highly comminuted displaced fracture of the proximal tibial diaphysis. Fracture is comminuted with displacement and depression fracture of the central posterior aspect of both the middle and lateral tibial plateau with fragmentation of the tibial spines. There is a minimally displaced depressed fracture of the posterior lateral aspect of the lateral tibial plateau. Fracture extends inferiorly to involve the medial and lateral cortex of the proximal tibial diaphysis with comminution. There is approximately 8mm anterior displacement of the distal fracture fragment and mild apex anterior angulation. There is a comminuted fracture of the fibula head and neck with fracture extending into the proximal tibial talar fibular articulation. The distal femur and patella are intact. Incidental note of a small fabella. There is a moderate to large knee joint effusion and diffuse superficial soft tissue stranding and edema. External fixation pins traverse the distal femoral and mid tibial diaphysis. ?? IMPRESSION 1. Highly comminuted fracture of the medial and tibial lateral plateau fracture extending to the metadiaphysis, Schatzker 6. 2. Comminuted displaced fracture of the proximal fibula. ASSESSMENT / PLAN: Kalyn Burgos is a 59 y.o. female 1 Day Post-Op s/p L knee spanning ex-fix for L proximal tibia fracture. Doing well post-operatively. We will switch PO oxy to PO dilaudid. Dispo pending PT/OT and pain control. Activity: NWB LLE in ex-fix DVT prophylaxis: Lovenox 40mg SQ/day for 30 days Closure: Ex-fix Dressing: Kerlix, pin site care 1x/day Antibiotics: Ancef x 24 hours Carrillo Manley MD 01/07/2020 Future Appointments Date Time Provider Department Center 01/27/2020 2:00 PM Carrillo Rogle MD [facility] Associated attestation - Yolanda Still MD - 01/08/2020 6:48 AM EST Patient seen and examined. Agree with resident note. Carmen Still MD Department of Orthopaedics 01/08/20 Rasta Em MD - 01/07/2020 2:04 AM EST Patient seen and examined at bedside. In brief patient sustained a left proximal tibia fracture andwas taken to the OR for external fixator application. She was seen overnight for compartment checks. Upon entering room patient is resting comfortably in bed. Pain overall appears well controlled. She denies any numbness or tingling to her left foot. ?? On exam patient is anxious about injury, but not overly so - appears more anxious about anticipated course than current discomfort. She is resting comfortably, laying supine in bed. A knee spanning ex-fix is in place. There is moderate saturation of the pin site dressings. Her leg is soft and cuba sible. I am able to passively flex and extend her great toe without significant discomfort. Her sensation is intact throughout the foot distally. She is able to actively flex and extend her toes as well as dorsiflex and plantarflex her ankle. She has a palpable DP pulse and brisk cap refill distally. ?? Patient is 59-year-old woman with a left proximal tibia fx, temporized in knee spanning ex-fix. At present she is comfortable on the floor. I have low concern for compartment syndrome at this time based on above noted clinical exam. We will continue to monitor overnight. ?? Rasta Em Orthopedic surgery PGY 2 Raymond Tam MD - 01/06/2020 11:52 PM EST ORTHOPAEDIC SURGERY INPATIENT POST OP NOTE Patient Name: Kalyn Darnell Case Age: 59 y.o. Surgery/Issue: L knee spanning ex-fix Findings:??L proximal tibia fracture with threatened skin?? Attending: Yolanda Still MD Date of surgery: 01/06/2020 SUBJECTIVE / INTERVAL HISTORY: Patient denies chest pain, shortness of breath, nausea, vomiting, numbness/weakness. Pain not well controlled on current regimen. Patient very anxious about current medical situation. She is requesting her home dose of fluoxetine. FOCUSED REVIEW OF SYSTEMS: as above. Active Hospital Problems Diagnosis ??? Tibia fracture Resolved Hospital Problems No resolved problems to display. Active Non-Hospital Problems Diagnosis ??? Danny's thyroiditis ??? Lower urinary tract symptoms (LUTS) ??? History of nephrolithiasis ??? Renal cyst, acquired ??? NELSON (stress urinary incontinence, female) ??? Cystocele, midline ??? Disorder of muscle, ligament, and fascia ??? Pelvic floor dysfunction ??? Chronic constipation ??? Mixed stress and urge urinary incontinence ??? DJD (degenerative joint disease) of cervical spine ??? Left ulnar fracture MEDICATIONS: ??? lactated ringers infusion ??? sodium chloride 0.9 % (flush) flush 5 mL ??? sodium chloride 0.9 % (flush) flush 5-20 mL ??? lidocaine (XYLOCAINE) 10 mg/mL (1 %) injection 3 mg ??? polyethylene glycol (Miralax) packet 17 g ??? senna-docusate (Pericolace) 8.6-50 mg per tablet 2 tablet ??? ondansetron (ZOFRAN) injection 4 mg ??? ceFAZolin (ANCEF) 1g in dextrose 5% 50mL ??? oxyCODONE (Roxicodone) tablet 5 mg OR oxyCODONE (Roxicodone) tablet 10 mg OR oxyCODONE (Roxicodone) tablet 15 mg ??? acetaminophen (Tylenol) tablet 1,000 mg ??? enoxaparin (LOVENOX) injection 40 mg ??? FLUoxetine (PROzac) capsule 10 mg ??? lactated Ringers 75 mL/hr (01/06/202154) OBJECTIVE: Temp: [36.8 ??C (98.2 ??F)-37.1 ??C (98.8 ??F)] Heart Rate: [64-73] Resp: [14-22] BP: (103-144)/(63-78) Intake/Output Summary (Last 24 hours) at 01/07/2020 0200 Last data filed at 01/07/2020 0100 Gross per 24 hour Intake 1653 ml Output 1454 ml Net 199 ml Body mass index is 20.8 kg/m??. PE: General: awake/alert, responds to questions, anxious but in NAD CV: RRR assessed peripherally Resp: Breathing comfortably on RA LLE: ex-fix Dressings moderately saturated with blood Sensory intact to light touch in lat fem cut/fem/sural/saph/SP/DP/T, no paresthesias Motor intact to FHL/EHL/TA, knee extension/flexion, hip extension/flexion Brisk capillary refill distally, foot warm/well-perfused Compartments soft to palpation Some pain with passive stretch Lab Results Component Value Date NA 139 01/06/2020 K 3.6 01/06/2020 CL 105 01/06/2020 CO2 23 01/06/2020 BUN 10 01/06/2020 CREATININE 0.76 01/06/2020 GLUCOSE 100 01/06/2020 CALCIUM 8.8 01/06/2020 Lab Results Component Value Date WBC 8.6 01/06/2020 HGB 10.6 (L) 01/06/2020 HCT 32.5 (L) 01/06/2020 MCV 95.6 (H) 01/06/2020 PLATELET 195 01/06/2020 Lab Results Component Value Date INR 1.2 01/06/2020 IMAGING: CT Knee wo Contrast (left) Pending result ASSESSMENT / PLAN: Kalyn Burgos is a 59 y.o. female 1 Day Post-Op s/p L knee spanning ex-fix for L proximal tibia fracture. Doing well post-operatively. - Hemodynamically stable - Pain well controlled Activity: NWB LLE in ex-fix DVT prophylaxis: Lovenox 40mg SQ/day for 30 days Closure: Ex-fix Dressing: Kerlix, pin site care 1x/day Antibiotics: Ancef x 24 hours Raymond Tam MD 01/07/2020 Future Appointments Date Time Provider Department Center 01/27/2020 2:00 PM Carrillo Rogel MD [facility] Associated attestation - Yolanda Still MD - 01/08/2020 10:34 AM EST Patient seen and examined. Agree with resident note. Plan for surgical fixation of her proximal tibial fracture when skin is improved. Carmen Still MD Department of Orthopaedics 01/08/20 Rossy Duvall RN - 01/06/2020 9:57 PM EST Arrived to PACU from OR. Pt attached to monitors, alarms active and audible, set appropriately for pt. VSS. C/o LLE pain, medicated and pain reassessed appropriately. Denies nausea. Ex fix in place, pin site oozing slightly. Hand off report given to RN documented in this encounter H&P Notes Carrillo Manley MD - 01/08/2020 1:12 PM EST The patient's history and physical exam have been reviewed and completed. There has been no intervalchange from that of the pre-operative history and physical exam done within the last 30 days. Carrillo Manley MD Judd Lyon MD - 01/06/2020 6:11 PM EST The patient's history and physical exam have been reviewed and completed. There has been no intervalchange from that of the pre-operative history and physical exam done within the last 30 days. Carrillo Manley MD - 01/06/2020 6:04 PM EST Images from the original note were not included. ORTHOPAEDIC SURGERY CONSULT NOTE ATTENDING: Tessy Kalyn Burgos is a 59 y.o. female who presents to see us in consultation today at the request of Viky Govea MD. CHIEF COMPLAINT: L proximal tibia fracture HPI: Kalyn Burgos is a 59 y.o. female with hx of depression [facility] L proximal tibia fracture. She state she was skiing when she hit a patch of ice and felt her knee give out. She was helmeted and denies loss of consciousness or hitting her head. She denies pain anywhere else. She denies numbness and tingling. She last ate around 8:30 AM this morning. She is not on any anticoagulation. FOCUSED REVIEW OF SYSTEMS: as above. There are no hospital problems to display for this patient. Active Non-Hospital Problems Diagnosis ??? Danny's thyroiditis ??? Lower urinary tract symptoms (LUTS) ??? History of nephrolithiasis ??? Renal cyst, acquired ??? NELSON (stress urinary incontinence, female) ??? Cystocele, midline ??? Disorder of muscle, ligament, and fascia ??? Pelvic floor dysfunction ??? Chronic constipation ??? Mixed stress and urge urinary incontinence ??? DJD (degenerative joint disease) of cervical spine ??? Left ulnar fracture FAMILY HISTORY: Negative for bleeding/clotting disorders or anesthetic complications. 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 lactated ringers infusion ??? HYDROmorphone (DILAUDID) injection 1 mg ??? Ciclesonide (OMNARIS) 50 mcg [place], Non-Aerosol ??? [id number]-[id number] therm. (VISBIOME) 112.5 billion cell Capsule ??? lactobacillus rhamnosus, GG, (CULTURELLE) 10 billion cell Capsule ??? b complex vitamins Capsule ??? acetylcysteine (NAC ORAL) ??? GLUTATHIONE ORAL ??? IODINE ORAL ??? FLUoxetine (PROZAC) 10 mg Tablet ??? lactated Ringers OBJECTIVE: Temp: [36.8 ??C (98.2 ??F)] Heart Rate: [64] Resp: [14] BP: (111)/(63) Intake/Output Summary (Last 24 hours) at 01/06/2020 1804 Last data filed at 01/06/2020 1625 Gross per 24 hour Intake -- Output 650 ml Net -650 ml Body mass index is 20.8 kg/m??. PHYSICAL EXAM: Gen: NAD, resting comfortably, AOx3 HEENT: NC, AT CV: RRR, no murmurs or gallops Pulm: clear to auscultation bilaterally Skin: Intact Psych: Nl mood and affect Right Upper Extremity Exam: No TTP clavicle, shoulder, humerus, elbow, forearm, wrist, hand Painless range of motion of shoulder / elbow / wrist / fingers No effusion in shoulder / elbow / wrist No ecchymosis, erythema, or overlying skin changes. Sensation intact to light touch in Ax/M/R/U/LABC distributions Motor intact (5/5) shoulder abduction, elbow flexion/extension, wrist flexion/extension, steel placer, EPL, AIN, IO Brisk capillary refill distally 2+ radial pulse Left Upper Extremity Exam: No TTP clavicle, shoulder, humerus, elbow, forearm, wrist, hand Painless range of motion of shoulder / elbow / wrist / fingers No effusion in shoulder / elbow / wrist No ecchymosis, erythema, or overlying skin changes. Sensation intact to light touch in Ax/M/R/U/LABC distributions Motor intact (5/5) shoulder abduction, elbow flexion/extension, wrist flexion/extension, steel placer, EPL, AIN, IO Brisk capillary refill distally 2+ radial pulse Right Lower Extremity Exam: No TTP pelvis, hip, femur, knee, tib/fib, ankle, foot Painless range of motion of Hip / knee / ankle No effusion in knee / ankle No ecchymosis, erythema, or overlying skin changes. Sensation intact to light touch in Saphenous/Sural/LFC/Femoral/MP/LP/T/DP/SP distributions Motor intact hip flexion/extension, knee flexion/extension, ankle flexion/extension, EHL/FHL/TA Brisk capillary refill distally 2+ DP/PT pulses Left Lower Extremity Exam: Tenderness over the proximal tibia. Area of non blanchable skin overlying the anterior proximal tibia with palpable fracture fragment. Significant swelling relative to RLE. No pain with passive flexion of toes. Sensation intact to light touch in Saphenous/Sural/LFC/Femoral/MP/LP/T/DP/SP distributions Motor intact EHL/FHL/TA Brisk capillary refill distally 2+ DP/PT pulses LABS: Last 3 wbc, hgb, hct plt No results for input(s): WBC, HGB, HCT, PLATELET in the last 7068 hours. Last 3 Lytes No results for input(s): NA, K, CL, CO2, BUN, CREATININE in the last 7068 hours. Last 3 Coags No results for input(s): PT, INR, PTT in the last 168 hours. IMAGING: Xray L tib/fib 01/06/20: Proximal tibia fracture with intra articular extension and proximal fibula fracture. ASSESSMENT/RECOMMENDATIONS: 59 y.o. female who presents with L proximal tibia and fibula fracture with intra articular extension after suffering a fall skiing. Given the degree of swelling and threatened skin we will proceed to the OR for external fixation of LLE. The risks and benefits of surgery were discussed with the patient and consent was obtained. - Activity- NWB LLE - Discuss with Dr. Still I have contacted the referring team and discussed our evaluation and recommendations as listed above. The orthopaedic service will continue to follow this patient. Thank you for the opportunity to assist in their evaluation and treatment. Please page Orthopaedic consults ([phone]) with any questions or co ncerns. ?? Carrillo Manley MD P. [phone] 01/06/20 6:04 PM Future Appointments Date Time Provider Department Center 01/27/2020 2:00 PM Carrillo Rogel MD [facility] Associated attestation - Yolanda Still MD - 01/08/2020 6:46 AM EST I have seen the patient and reviewed the attached history/physical and I agree with the details as written. The assessment and plan were formulated in discussion with me and I agree with them as documented. This is a 59 y.o. female with a proximal tibia fracture with swelling and bone putting pressure on her skin anteriorly causing redness and blanching of her skin. We discussed temporary fixation with an external fixator to take pressure off her skin anteriorly and to allow the swelling to improve and later transition to internal fixation. We discussed risks that include but are not limited to infection, bleeding, damage to surrounding tissues, need for further surgery, malunion, nonunion, cardiopulmonary complications. She demonstrated good understanding. Carmen Still MD Department of Orthopaedics 01/08/2020 documented in this encounter ED Notes Shraddha Webster RN - 01/06/2020 5:45 PM EST Ortho MD at bedside Kg Ray MD - 01/06/2020 3:52 PM EST Kayln Darnell Case is an 59 y.o. female who presents to the ED with: Chief Complaint Patient presents with ??? Leg Injury skiing accident I saw this patient 01/06/2020 HPI Kalyn Burgos is a 59 y.o. female with no relevant past medical history who presents to the Emergency Department with left lower extremity pain. She is a transfer from [facility]. She has left tib-fib fracture. She is neurovascularly intact. Pain is well controlled. Last p.o. this morning. She is not anticoagulated. She was wearing a helmet. She denies head strike and LOC. She currently denies headache and neck pain. Social History Socioeconomic History ??? Marital status: Spouse name: Not on file ??? Number of children: Not on file ??? Years of education: Not on file ??? Highest education level: Not on file Occupational History ??? Not on file Social Needs ??? Financial resource strain: Not on file ??? Food insecurity Worry: Not on file Inability: Not on file ??? Transportation needs Medical: Not on file Non-medical: Not on file Tobacco Use ??? Smoking status: Never Smoker ??? Smokeless tobacco: Never Used ??? Tobacco comment: Exposure to smoking in the home until the age of 16 Substance and Sexual Activity ??? Alcohol use: No ??? Drug use: No ??? Sexual activity: Not on file Lifestyle ??? Physical activity Days per week: Not on file Minutes per session: Not on file ??? Stress: Not on file Relationships ??? Social connections Talks on phone: Not on file Gets together: Not on file Attends yazidi service: Not on file Active member of club or organization: Not on file Attends meetings of clubs or organizations: Not on file Relationship status: Not on file ??? Intimate partner violence Fear of current or ex partner: Not on file Emotionally abused: Not on file Physically abused: Not on file Forced sexual activity: Not on file Other Topics Concern ??? Not on file Social History Narrative ??? Not on file Review of Systems: Review of Systems Constitutional: Negative for appetite change, diaphoresis and fever. HENT: Negative for hearing loss and sore throat. Eyes: Negative for photophobia and pain. Respiratory: Negative for chest tightness and shortness of breath. Cardiovascular: Negative for chest pain. Gastrointestinal: Negative for abdominal pain. Endocrine: Negative for cold intolerance. Genitourinary: Negative for dysuria. Musculoskeletal: Positive for arthralgias. Negative for myalgias and neck pain. Skin: Negative for pallor and rash. Neurological: Negative for dizziness, weakness and light-headedness. Psychiatric/Behavioral: Negative for confusion. Vital Signs: Triage vitals at 1601: 111/63, 36.8 degrees C, HR 64, RR 14, SPO2 100% I have reviewed the vital signs, which demonstrates afebrile with vitals within acceptable limits Physical Exam: Physical Exam Vitals signs and nursing note reviewed. Constitutional: General: She is not in acute distress. Appearance: She is well-developed. She is not diaphoretic. HENT: Head: Normocephalic and atraumatic. No raccoon eyes, Angulo's sign, abrasion, contusion, right periorbital erythema, left periorbital erythema or laceration. Right Ear: Hearing, tympanic membrane, ear canal and external ear normal. No decreased hearing noted. No tenderness. No middle ear effusion. No mastoid tenderness. No hemotympanum. Left Ear: Hearing, tympanic membrane, ear canal and external ear normal. No decreased hearing noted. No tenderness. No middle ear effusion. No mastoid tenderness. No hemotympanum. Nose: Nose normal. No nasal deformity or septal deviation. Mouth/Throat: Pharynx: Uvula midline. No oropharyngeal exudate. Eyes: Conjunctiva/sclera: Conjunctivae normal. Pupils: Pupils are equal, round, and reactive to light. Neck: Musculoskeletal: Neck supple. Trachea: No tracheal deviation. Cardiovascular: Rate and Rhythm: Normal rate and regular rhythm. Heart sounds: Normal heart sounds. No murmur. No friction rub. No gallop. Pulmonary: Effort: Pulmonary effort is normal. No respiratory distress. Breath sounds: Normal breath sounds. No stridor. No wheezing or rales. Chest: Chest wall: No tenderness. Abdominal: General: Bowel sounds are normal. There is no distension. Palpations: Abdomen is soft. Tenderness: There is no abdominal tenderness. Musculoskeletal: Normal range of motion. Right shoulder: Normal. Left shoulder: Normal. Right hip: Normal. Left hip: Normal. Right knee: Normal. Left knee: Normal. Right ankle: Normal. Left ankle: Normal. Cervical back: Normal. Thoracic back: Normal. Lumbar back: Normal. Right upper leg: Normal. Left upper leg: Normal. Right lower leg: Normal. Left lower leg: She exhibits tenderness, bony tenderness, swelling and deformity. Right foot: Normal. Left foot: Normal. Skin: General: Skin is warm and dry. Neurological: Mental Status: She is alert and oriented to person, place, and time. GCS: GCS eye subscore is 4. GCS verbal subscore is 5. GCS motor subscore is 6. Cranial Nerves: No cranial nerve deficit. Sensory: No sensory deficit. Motor: No abnormal muscle tone. Coordination: Coordination normal. Psychiatric: Behavior: Behavior normal. ED Course: - Patient was evaluated and discussed with Dr. Govea - Medications, allergies and past medical history reviewed - Nursing notes and vital signs reviewed ED Course as of Jan 09 1553SunJan 06, 2020 162 Spoke with ortho, they will eval 162 Labs from outside hospital show essentially normal CBC and CMP specifically, her H&H was 11.8/35.1 with platelets of 229. [address] Head wo Contrast (Generic) - Medications and fluid administered: Medications lactated ringers infusion (75 mL/hr Intravenous New Bag 01/09/20 0810) sodium chloride 0.9 % (flush) flush 5 mL (5 mLs Intravenous Given 01/09/20 0900) sodium chloride 0.9 % (flush) flush 5-20 mL ( Intravenous MAR Unhold 01/08/20 1640) lidocaine (XYLOCAINE) 10 mg/mL (1 %) injection 3 mg ( Subcutaneous MAR Unhold 01/08/20 1640) polyethylene glycol (Miralax) packet 17 g (17 g Oral Given 01/09/20 09) senna-docusate (Pericolace) 8.6-50 mg per tablet 2 tablet (2 tablets Oral Given 01/09/20 09) ondansetron (ZOFRAN) injection 4 mg ( Intravenous MAR Unhold 01/08/20 1640) HYDROmorphone (Dilaudid) tablet 2 mg ( Oral See Alternative 01/09/20 1032) Or HYDROmorphone (Dilaudid) tablet 4 mg ( Oral See Alternative 01/09/20 1032) Or HYDROmorphone (Dilaudid) tablet 6 mg (6 mg Oral Given 01/09/20 1032) FLUoxetine (PROzac) capsule 20 mg (20 mg Oral Given 01/09/20 0901) acetaminophen (Tylenol) tablet 1,000 mg (1,000 mg Oral Given 01/09/20 1315) cyclobenzaprine (Flexeril) tablet 10 mg (10 mg Oral Given 01/09/20 1315) Dextromethorphan HBr 5 mg/5 mL oral syrup 15 mg ( Oral MAR Unhold 01/08/20 1640) HYDROmorphone (DILAUDID) injection 0.5 mg ( Intravenous MAR Unhold 01/08/20 1640) gabapentin (Neurontin) capsule 300 mg (300 mg Oral Given 01/09/20 0901) lidocaine (LIDODERM) 5 % patch 3 patch (3 patches Transdermal Patch Applied 01/09/20 1316) And lidocaine (LIDODERM) patch REMOVAL (3 patches Transdermal Patch Removed 01/08/202199) enoxaparin (LOVENOX) injection 30 mg (has no administration in time range) lactated Ringers 1,000 mL IV bolus ( Intravenous Stopped 01/06/20 1747) fentaNYL (PF) 50 mcg/mL injection (50 mcg Given 01/06/20 1723) HYDROmorphone (DILAUDID) injection 1 mg (1 mg Intravenous Given 01/06/20 1847) ceFAZolin (ANCEF) 1g in dextrose 5% 50mL (0 g Intravenous Stopped 01/07/20 1519) HYDROmorphone (DILAUDID) injection 0.4 mg (0.4 mg Intravenous Given 01/07/20 0102) LORazepam (Ativan) tablet 0.5 mg (0.5 mg Oral Given 01/07/20 0102) HYDROmorphone (DILAUDID) injection 0.4 mg (0.4 mg Intravenous Given 01/07/20 1818) HYDROmorphone (DILAUDID) injection 0.4 mg (0.4 mg Intravenous Given 01/07/20 2247) HYDROmorphone (DILAUDID) injection 0.5 mg (0.5 mg Intravenous Given 01/08/20 0018) HYDROmorphone (DILAUDID) injection 0.4 mg (0.4 mg Intravenous Given 01/08/20 0336) ceFAZolin (ANCEF) 1g in dextrose 5% 50mL (0 g Intravenous Stopped 01/09/20 0931) - I have reviewed the labs, which are significant for: Recent Results (from the past 24 hour(s)) Basic Metabolic Panel (non-fasting) Result Value Ref Range Glucose Lvl 105 65 - 199 mg/dL BUN 9 8 - 18 mg/dL Creatinine 0.69 (L) 0.70 - 1.20 mg/dL Sodium 137 135 - 145 mmol/L Potassium 4.3 3.5 - 5.0 mmol/L Chloride 100 98 - 107 mmol/L CO2 29 22 - 31 mmol/L Anion Gap 8 5 - 15 mmol/L Calcium 8.8 8.5 - 10.5 mg/dL eGFR 94 >=60 mL/min/1.73 m?? eGFR 109 >=60 mL/min/1.73 m?? Hemogram Result Value Ref Range WBC 6.0 4.0 - 9.5 x10(3)/mcL RBC 2.65 (L) 4.00 - 5.21 x10(6)/mcL Hemoglobin 8.3 (L) 11.7 - 15.5 gm/dL Hematocrit 25.7 (L) 35.7 - 45.8 % MCV 97.0 (H) 82.6 - 94.4 fL MCH 31.3 27.1 - 32.0 pg MCHC 32.3 31.7 - 35.0 gm/dL Platelets 150 145 - 357 x10(3)/mcL RDWSD 47.4 (H) 37.0 - 46.0 fL RDWCV 13.3 11.5 - 14.1 % MPV 10.2 7.6 - 12.9 fL nRBC % Auto 0.0 % nRBC Abs Auto 0.000 0.000 - 0.000 x10(3)/mcL Differential, Automated Result Value Ref Range Neutrophils % 67.6 % Neutr Abs (ANC) 4.06 1.70 - 6.10 x10(3)/mcL Lymphocytes % 22.0 % Lymphocytes Abs 1.3 0.9 - 3.2 x10(3)/mcL Monocytes % 9.3 % Monocyte Abs 0.6 0.3 - 0.9 x10(3)/mcL Eosinophils % 0.5 % Eosinophils Abs 0.0 0.0 - 0.4 x10(3)/mcL Basophils % 0.3 % Basophils Abs 0.0 0.0 - 0.1 x10(3)/mcL Immature Gran % 0.30 % [place] Gran Abs 0.02 0.00 - 0.04 x10(3)/mcL - I have reviewed the imaging, which is significant for: MRI Knee wo Contrast Left (Generic) Final Result 1. MR findings consistent with functional anterior cruciate ligament insufficiency/laxity. Although there is no MR evidence of high-grade disruption of the anterior cruciate ligament, there are nondisplaced fractures of the tibial eminence at the ACL attachment. Additionally, the apex-anterior angulation of the proximal tibial fracture likely contributes to some degree of laxity. Anterior translation of the tibial plateau relative to the femoral condyles is also noted. 2. No full-thickness rupture or retraction of the fibular collateral ligament. There may be some injury or partial tearing at the femoral attachment of the fibular collateral ligament, characterized by some high signal at this site. However, functional laxity of the lateral collateral ligament appears to be due at least in part to the comminuted fracture of the fibular head to which the fibular collateral ligament and biceps femoris remain attached. 3. Irregular morphology of the iliotibial band may be due to a postsurgical change from the most superior screws of the lateral plate and screw construct status post ORIF of the proximal tibial fracture. 4. Bone contusion of the sulcus terminalis and impaction injury/microtrabecular fracture of the posterior tibial plateau. 5. At the site of medial tibial spine nondisplaced fracture, there is an osteochondral fragment involving the mesial aspect of the medial tibial plateau. 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 6. The comminuted fractures at the tibial eminence also involve the attachments of the posterior roots of both the medial and lateral menisci. Although no discrete or displaced meniscal tear is identified, fractures at these attachment sites could contribute to functional equivalence of meniscal root avulsion tears. 7. Muscle strain/injury of the popliteus, plantaris, soleus and muscles of the anterior and lateral compartments. 8. Large lipohemarthrosis. Hypointense focus in the lateral suprapatellar recess could represent postsurgical material or a small focus of gas, related to recent instrumentation. Thank you for letting us participate in the care of this patient. For questions regarding this report, please contact the number below. Tibia Fibula Left (Generic) Final Result ORIF of proximal comminuted tibial fracture with good alignment. Thank you for letting us participate in the care of this patient. For questions regarding this report, please contact the number below. Fluoro No Rad <1Hr - OR Use Final Result CT Knee wo Contrast Left (Generic) Final Result 1. Highly comminuted fracture of the medial and tibial lateral plateau fracture extending to the metadiaphysis, Schatzker 6. 2. Comminuted displaced fracture of the proximal fibula. Thank you for letting us participate in the care of this patient. For questions regarding this report, please contact the number below. Fluoro No Rad <1Hr - OR Use Final Result CT Head wo Contrast (Generic) Final Result Normal study. Thank you for letting us participate in the care of this patient. For questions regarding this report, please contact the number below. Film Library- Storage Only DX Pelvis Final Result Film Library- Storage Only DX Chest Final Result XR Tibia Fibula Left (Generic) (Results Pending) XR Knee 1-2 Views Left (Generic) (Results Pending) XR Tibia Fibula Left (Generic) (Results Pending) XR Abdomen 1 view (Generic) (Results Pending) XR Tibia Fibula Left (Generic) (Results Pending) Assessment and Plan: MDM: Patient presents with left lower extremity injury after skiing accident. She is not on blood thinners, did not hit her head or lose consciousness per her report. She was helmeted. Detailed primary and secondary survey revealed no other evidence of injuries. She is several hours out from her injuryat time of our evaluation after she has been transferred here and there is been no hemodynamic instability, there is no evidence of abdominal tenderness, pelvic instability, chest wall tenderness. CT of her head was done and negative as per read above. Orthopedics was consulted for management of herinjury and will admit her to their service. Plan: -Admit to orthopedics Kg Ray MD EM Resident, PGY-3 01/09/20 3:52 PM Kg Ray MD Resident 01/09/20 1559 Associated attestation - Viky Govea MD - 01/19/2020 1:47 PM EST ED ATTENDING ATTESTATION NOTE The patient was seen in conjunction with Dr. Ray, the resident physician. I have independently performed the shah portions of the history and physical exam. I have reviewed the nursing notes, vitalsigns, and all diagnostic studies personally including labs, imaging studies and EKGs. I have discussed the details of the case with the resident and agree with the assessment and plan as described inthe resident note unless noted otherwise. Final Assessment: 59 y.o. F with LLE tibial fracture documented in this encounter Miscellaneous Notes Plan of Care - Afua Luna OT - 01/09/2020 2:01 PM EST Occupational Therapy Evaluation Patient profile: Kalyn Darnell Case is a 59 y.o. female with a proximal tibia fracture following a fall while skiing. Initially treated with L knee spanning ex-fix, Now 1 Day Post-Op s/p ORIF L proximaltibia fracture Past Medical History: Diagnosis Date ??? Anxiety [...] 8.78) performed by Yolanda Still MD at [facility] MAIN OR ??? SHOULDER ARTHROSCOPY ??? TIBIA FRACTURE SURGERY ??? URETER STENT PLACEMENT Social History: Patient lives with her son at baseline- son works and is not home Home Setup: Multi-level home with 4 [address]. Pt typically sleeps on 3rd floor (up 2 full FOS). There is a half bath on the first floor. Full bath with either tub or walk in shower on second level. Baseline ADL/Mobility: Pt is fully independent with ADL/IADL tasks at baseline and ambulates independently. She enjoys making artwork and reports that she has most recently been experimenting with gel pens. Precautions/Special Considerations: activity as tolerated, NWB LLE (in KI) Subjective: Recently I've bene exploring making artwork with gel pens Objective: Seen today for OT evaluation. Cognitive Status/Behavior: ?? Behavior / Mood: alert, cooperative and mildly anxious ?? Alert and oriented to: person, place, time and situation ?? Follows commands: multi step and slightly increased time ?? Attention: WFL Vision & Perception: ?? WNL/WFL- reading glasses at baseline Communication: WFL Range of motion, strength, coordination: Bilateral UEs are within functional limitations LE limitations: LLE ROM limited by pain Sensation: pt reports impaired sensation on dorsal aspect of L foot Activities of Daily Living: Self-feeding: independent after set-up Grooming: independent after set-up Dressing: dependent to don shoe/sock Bathing: Toileting: pt would benefit from use of commode Transfer: CGA-Zenaida x2 with FWW Hygiene: Functional Mobility: Supine>sit: Zenaida with HOB elevated and use of leg manufacturing helper Sit<>stand: CGA-Zenaida x2 with FWW- verbal cueing for hand placement and walker use Ambulation: not assessed Able to stand-pivot to bedside chair with CGA-Zenaida x2 and use of FWW Balance: Sitting balance: good Standing balance: fair Pain: 6/10 prior to mobility Education: patient have been educated on Role of occupational therapy/rehabilitation, Transfers, Assistive device/technique, ADL, Positioning, Safety, Functional Mobility and Activity pacing/Energy conservation and verbalize understanding. Patient status, treatment, and mobility recommendations discussed with nursing. Assessment: Pt has been seen for occupational therapy evaluation. Kalyn Darnell Case presents with thefollowing performance skill deficits and client factors: increased pain, decreased activity tolerance, decreased flexibility/ROM, decreased sitting/standing balance, precautions/bracing and compromisedmobility status. These performance deficits have led to activity limitations and participation restrictions in the following areas of occupation: dressing, bathing, toileting, transfers/mobility, rest/sleep, leisure, driving, community mobility and social participation. Pt pleasant and cooperative throughout session, motivated to mobilize with therapy despite pain. Pt demonstrates excellent understanding of precautions and tolerated stand-pivot transfer from bed to recliner with 2A and use of FWW, but was limited by pain and fatigue. Pt would benefit from further inpatient OT interventions to address performance deficits and maximize participation and independence with occupations of daily living. Pt is fully independent at baseline and currently requires assist for all mobility and ADL/IADL tasks. Recommend rehab stay upon discharge to increase safety and independence prior to return home. Equipment needs at discharge: TBD at rehab Anticipated Discharge Disposition: inpatient rehabilitation facility Other Recommendations: ?? Stand pivot with 2A and FWW, OOB to chair for meals, transfer on/off commode ?? Encourage participation in ADL's by providing set up A on tray table and physical assist only as needed Goals: To be achieved by 01/23 . Pt will perform seated shower with conditional independence and use of AE as needed Pt will perform all aspects of toileting with conditional independence Pt will dress LB with conditional independence and use of AE/adaptive strategies as needed Pt will ambulate household distance for ADLs with conditional independence and use of LRD Pt will maintain NWB precautions independently during ADL/IADL tasks Pt will choose and participate in 2-3 leisure activities per day Pt will demonstrate understanding of 2-3 energy conservation/pacing strategies for use during ADL/IADL tasks Plan: OT: Therapy Frequency: 2-4 times/wk Planned OT interventions: Transfers, Assistive device/technique, Adaptive equipment training, ADL, Positioning, Safety, Precautions/Protocol, Functional Mobility, Activity pacing/Energy conservation, Home Management and Recommendations. Total Evaluation Minutes, Occupational Therapy: 21(moderate complexity eval) 2017 OT Evaluation Code Rationale: ?? Diagnosis & Pertinent Co-Morbidities affecting Plan of Care: see PMHx ?? Occupational Profile & Client History: Brief Expanded Extensive x ?? Assessment of Occupational Performance: 1-3 performance deficits 3-5 performance deficits 5 + performance deficits x ?? Clinical Decision Making: Low Moderate High x Clinical decision making of moderate complexity using standardized patient assessment instrument andmeasurable assessment of functional outcome. Pager: [phone] Afua Luna OT 01/09/2020 Occupational Therapy Rehabilitation Department Plan of Care - Charles Gill PT - 01/09/2020 1:32 PM EST Physical Therapy Note Treatment Number PT: (P) 2 Patient profile: Kalyn Darnell Case??is a 59 y.o.??female??1 Day Post-Op??s/p L knee spanning ex-fix for L proximal tibia fracture. ??Interval History: Return to OR 01/08 for removal of hardware, ORIF with plates and screws. Transfused. ? Social History: Home Environment:??Lives with son in home, 3 steps into home. ??Bathroom and bedrooms are on 2nd and 3rd floor. ??10 steps to landing and 6 steps up to 2nd floor. ??3rd floor attic accessed by set of very steep stairs. ?? Precautions/Special Considerations: NWB LLE with [place], MRI done today to assess ligamentous damage,? Mobility and Positioning Recommendations: ?? Pt. to utilize assist to LLE, leg manufacturing helper to get EOB, Mod asst of 2 and bed height raised to stand, Trapeze on bed to allow pt to assist with repositioning ?? Please encourage upright for meal times as able. ?? When pt progresses, Pt encouraged to ambulate frequently with staff, getting into the bathroom for toileting and walking out in the [place] >/= 3 times daily as able. ?? Subjective: ???Doing much better today s/p ORIF. Its better without those pins sticking out of my leg ?? Objective: Pt seen for reassessment, mobility, transfer to the chair today. ?? Pain 4/10 pain, premedicated, lidoderm patches, much improved compared to 2 days ago ?? Vital Signs: SpO2: 99% on RA HR: 74 BP: 105/58 ?? Mental Status: oriented, cooperative, much more relaxed ?? Vision: WFL, reading glasses ?? Skin: L LE dressings, drainage on dressing, LLE edema, some bruising, Musculoskeletal: ROM: L ankle to neutral, provided strap to hold foot in neutral, UEs and RLE WNL Strength: good UE strength, good RLE in supine, able to maintain NWB LLE, using leg manufacturing helper to move LLE Sensation: LT intact bottom on left foot, decreased LT on dorsal surface, zayas painful/sensitive ?? Bed Mobility: supine to sit with min asst of 2, trapeze and RLE to bridge and get onto bed veras ?? Transfers: bed height raised, shoe on R, min asst of 2 to FWW, pivoted to chair with increased time Gait:took 1-2 steps Stairs: NT ? Therex: IS, deep breathing, ankle pumps, assisted SLR ?? Education: patient has been educated on Bed mobility, Exercise, Breathing exercises, Positioning, Safety , Precautions/protocol, Role of therapy, Discharge planning and goals and needs reinforcement. understanding. Patient status, treatment, and mobility recommendations discussed with nursing. ? Assessment: Kalyn Burgos was seen today for physical therapy continuation of POC.. Pt presents with pain, impaired LLE skin integrity, LE weakness, impaired mobility, impaired gait and balance, non-wt bearing status, fatigue. Pt able to get on/off bedpan, sat EOB, stood with assist of 2, transferred to cardiac chair, boosted back in the chair, needs assist to LLE for repositioning,RN present. Pt tolerating increased mobility today, better pain management. Motivated and participating, agreeable torehab stay to maximize safety, mobility and independent functioning. The pt would benefit from skilled therapy services while in the hospital to maximize functional abilities. ?? Discharge Recommendations: Anticipated Discharge Disposition: (P) inpatient rehabilitation facility ?? Consult Recommendations: Occupational therapy following?? Equipment needs: Rolling walker, Wheelchair and shoe, support for LLE DF ? Goals: To be achieved by 01/14: ?? 1. Pt. to demonstrate knowledge of safety limitations and precautions and will appropriately requestassistance for functional activities and to mobilize. 2. Pt. to demonstrate understanding of appropriate L ankle and isometric exercises. 3. Pt. to perform bed mobility with modified independence. 4. Pt. to perform sit to stand transfers with min A using a front wheeled walker. 5. Pt. to ambulate 10 feet with min A using a a front wheeled walker. 6. Pt. to propel a WC x 25 ft with supervision, LLE elevated 7. Family or caregiver to demonstrate understanding of therapeutic interventions to support the careof the patient. ? Plan: Therapy Frequency: (P) 4-6 times/wk for therapy including balance training, bed mobility training, gait training, home exercise program, patient/family education, range of motion, strengthening,transfer training and wheelchair managment/propulsion training. Patient/family understand and agree with plan as stated above. Time IN / OUT: 9:40-9:55 and 1:08-1:32 Total Evaluation Minutes, Physical Therapy: (P) 39 TEF x 3 CHARLES GILL, PT Pager: [phone] Physical Therapy Inpatient Rehabilitation Department Plan of Care - Olu Hernandez RN - 01/09/2020 1:59 AM EST Problem: Patient Care Overview Goal: Plan of Care Review Outcome: Ongoing (Interventions Implemented as Appropriate) 01/08/20 2110 01/09/20 0153 Coping/Psychosocial Plan Of Care Reviewed With patient -- Plan of Care Review Progress -- progress towards functional goals is fair OUTCOME EVALUATION NOTE: OUTCOME SUMMARY: Patient A&Ox4, VSS, resting between care. Pain up to 8/10; PRN PO dilaudid x1. Denies nausea. Adequate UOP via andrade catheter; no indication for catheter, will discuss removal with the team during rounds. No BM this shift; +flatus. Neuro vasc checks unchanged, remarkable only for numbness and tingling in LLE. Moderate amount of bloody drainage from pin sites. MD aware. Knee immobilizer remains inplace. Will continue to monitor. PLAN MOVING FORWARD: Pain control OOB and ambulation D/c andrade Discharge planning INDIVIDUALIZED FALL PREVENTION INTERVENTIONS: High fall risk Patient-specific fall risk factors per assessment: [current deficits]: Recent fall, 2 or more active diagnoses, recent surgery, acute pain, opioid analgesia, PIV, continuous IVF, andrade catheter, knee immobilizer, NWB LLE, Assistance [level of assistance required for transfers and ambulation]: Not yet OOB Supervision [direct monitoring required during toileting and ADLs]: Hands on Surveillance [continuous indirect monitoring]: Bed/chair alarm, masimo, hourly rounding, room near unit station, NKE at bedside, yellow fall band on, environmental modifications (clutter-free environment, tubing secured, bed low, lighting adjusted, nonskid socks when OOB, bed wheels locked, call light with in reach, upper side rails x2, ID bands on) Patient-specific fall prevention interventions for sensory deficits provided, if applicable: [X] N/A CPG GOAL OUTCOME EVALUATION: Goal: Individualization & Mutuality Outcome: Ongoing (Interventions Implemented as Appropriate) 01/07/20 0353 01/08/20 1841 Individualization Patient Specific Interventions -- Hardware removed Mutuality/Individual Preferences What Anxieties, Fears or Concerns Do You Have About Your Health or Care? -- Pain won't stop What Questions Do You Have About Your Health or Care? none -- What Information Would Help Us Give You More Personalized Care? none -- Goal: Fall Prevention-Safe Patient Handling Outcome: Ongoing (Interventions Implemented as Appropriate) 01/08/2082501/08/202109 Daily Care Interventions Self-Care Promotion -- independence encouraged;BADL personal objects within reach;BADL personal routines maintained [place] Fall Risk History of Falling -- 25 Secondary Diagnosis -- 15 Ambulatory Aids -- 0 Intravenous Therapy/Heparin/Saline Lock -- 20 Gait/Transferring -- 0 Mental Status -- 0 Score -- 60 OTHER [place] Fall Risk -- High Restraint Interventions Safety Promotion/Fall Prevention -- activity supervised;fall prevention program maintained;muscle strengthening facilitated;nonskid shoes/slippers when out of bed;safety round/check completed Positioning Body Position -- independent Activity Activity Type -- patient refuses activity Activity Assistance Provided other (see comments) (pt has not been out of bed yet) -- Goal: Infection Control Outcome: Ongoing (Interventions Implemented as Appropriate) 01/08/202109 Safety Interventions Isolation Precautions standard precautions maintained Infection Prevention barrier precautions utilized;environmental surveillance performed;rest/sleep promoted;single patient room provided Coping Strategies Supportive Measures active listening utilized;decision-making supported;goal setting facilitated;positive reinforcement provided;problem solving facilitated;self-care encouraged;relaxation techniques promoted;self-reflection promoted;self-responsibility promoted;verbalization of feelings encouraged Goal: Discharge Needs Assessment Outcome: Ongoing (Interventions Implemented as Appropriate) 01/09/20 0153 Activity/Self Care Review of Systems Equipment Currently Used at Home none Discharge Needs Assessment Readmission Within The Last 30 Days no previous admission in last 30 days Current Discharge Risk lives alone Discharge Disposition still a patient Living Environment Transportation Available family or friend will provide Current Health Anticipated Changes Related to Illness none Goal: Interdisciplinary Rounds/Family Conf Outcome: Ongoing (Interventions Implemented as Appropriate) 01/08/20 1840 Interdisciplinary Rounds/Family Conf Participants mental health case manager;nursing;patient;physician;physical therapy Problem: Skin Integrity Impairment, Risk/Actual (Adult) Goal: Identify Related Risk Factors and Signs and Symptoms Related risk factors and signs and symptoms are identified upon initiation of Human Response Clinical Practice Guideline (CPG) Outcome: Ongoing (Interventions Implemented as Appropriate) 01/07/20 193 Skin Integrity Impairment, Risk/Actual Skin Integrity Impairment, Risk/Actual: Related Risk Factors surgery/procedure;traumatic injury;immobility Signs and Symptoms (Skin Integrity Impairment) inflammation Goal: Skin Integrity/Wound Healing Patient will demonstrate the desired outcomes by discharge/transition of care. Outcome: Ongoing (Interventions Implemented as Appropriate) 01/09/20 0153 Skin Integrity Impairment, Risk/Actual (Adult) Skin Integrity/Wound Healing making progress toward outcome Plan of Care - Sanjuana Solomon RN - 01/08/2020 6:50 PM EST Problem: Patient Care Overview Goal: Plan of Care Review Outcome: Ongoing (Interventions Implemented as Appropriate) 01/07/20193801/08/20 0826 Coping/Psychosocial Plan Of Care Reviewed With -- patient Plan of Care Review Progress progress toward functional goals is gradual -- OUTCOME EVALUATION NOTE: OUTCOME SUMMARY: ?? Pain not well controlled, 8-10/10 pain, patient refusing scheduled Tylenol, reports gives her a headache. Flexeril, PO Dilaudid and Gabapentin given w/o relief. Patient to OR today to remove externalfixation device, replaced with ORIF. Patient's pain managed and resting comfortable since return from the OR. Q4 neurovascular checks unremarkable. Adequate UOP via andrade, no flatus, no bm. PT NPO forsurgery, no complaint of nausea. ?? PLAN MOVING FORWARD: -Encourage self care -Encourage ambulation, OOB and IS -Monitor/manage pain INDIVIDUALIZED FALL PREVENTION INTERVENTIONS: HIGH Fall Risk Patient-specific fall risk factors per assessment: [current deficits]: 59 y/o patient w/impaired mobility, pain management w/narcotics, PIV infusing, and unfamiliar surroundings. Assistance [level of assistance required for transfers and ambulation]: SBA Supervision [direct monitoring required during toileting and ADLs]: Eyes on Surveillance [continuous indirect monitoring]: Nurse knowledge exchange, purposeful rounding, environmental modifications (waste basket is out of the path and the IV tubing and cords are free from thefloor), fall reduction program in place, lighting adjusted for task, bed in low position, wheels locked, side rails up (x2), nonskid socks worn OOB, no restraints, call light is within reach at all times, assistive device, bed/chair alarm, [place] ID band on. Patient-specific fall prevention interventions for sensory deficits provided, if applicable: No CPG GOAL OUTCOME EVALUATION: Will continue to monitor Op Note - Judd Lyon MD - 01/08/2020 4:30 PM EST Patient Name: Kalyn Darnell Case : [id number] MR#: [id number] ?? Case Date: 01/08/2020 ?? Surgeon: Surgeon(s) and Role: * Yolanda Still MD - Primary * Judd Lyon MD - Resident * Carrillo Manley MD - Resident ?? Preoperative diagnosis: L proximal tibia fracture ?? Postoperative diagnosis: L proximal tibia fracture ?? Procedure(s) (LRB): ORIF TIBIAL SHAFT, PLATE & SCREWS (WRVU 12.54) (Left) MODIFIER TIBIA SABRINA SYSTEM SYNTHES (N/A) MODIFIER LOCKING SMALL FRAGMENT SYNTHES (N/A) ?? Anesthesia: General ?? Findings: displaced proximal tibia fracture with intra-articular extension ?? Complications: None Intake: Intraprocedure Crystalloid Total None Transfusion No data found in the last 1 encounters. Output: Estimated Blood Loss: * No values recorded between 01/08/2020 1:41 PM and 01/08/2020 2:52 PM * Urine Output:: (no urine output recorded) Other Output: (no other output recorded) ?? Drains: None ?? Specimens removed during surgery: None ?? Disposition: awakened from anesthesia, extubated and taken to the recovery room in a stable condition, having suffered no apparent untoward event. Indications for Procedure: This is a 59-year-old female who sustained a left proximal tibia fractureafter a fall while skiing 2 days ago. The patient was subsequently transferred to [facility] where was noted that she had threatened skin anteriorly. She was subsequently placed into external fixation. Her skin was inspected this morning and her degree of swelling was deemed amenable to internal fixation today. After an extensive discussion with the patient regarding the risks and benefits of surgicalversus nonoperative management of her injury, the patient elected to proceed with open reduction andinternal fixation of her left proximal tibia fracture. Description of procedure: The patient was met on the floor where the left lower extremity was marked. She was then brought to the operating room and transferred to the operating table in a supine position. All bony prominences were well-padded. Anesthesia was induced and preoperative antibiotics were administered prior to skin incision. The ex-fix was removed and a left thigh tourniquet was placed high on the patient's left thigh. The left lower extremity was prepped and draped in the usual sterile fashion. A timeout was held in accordance with [facility] policy verifying the patient's name, date ofbirth, and planned procedure. There were no objections to proceeding. An anterolateral lazy S incision centered on Gerdy's tubercle was made with a 15 blade scalpel. Sharp dissection proceeded through skin and subcutaneous tissues and Bovie electrocautery was used for dissection through the deeper subcutaneous tissues. The proximal aspect of the tibia was encountered and was subperiosteally dissected distally. Approximately 3 cm of IT band was split from its insertion on Gerdie's tubercle proximally. Two lag screws were placed parallel to the joint line to definitively fix the intra-articular extension of the fracture using a lag by technique method. The screws were confirmed to be of adequate length and trajectory with adequate reduction of the fracture using intraoperative C-arm fluoroscopy in both AP and lateral projections. At this point, a nine-hole SABRINA plate was slid along the periosteum of the lateral aspect of the tibia. It was provisionally fixed to the tibia using 2 K wires both proximally and distally. Intraoperative C-arm fluoroscopy was used to confirm adequate plate length and position on both AP and lateralprojections. Once this was confirmed to be adequate, the plate was fixed to the bone using locking screws through the external plate guide. Final intraoperative C-arm fluoroscopy images were used to confirm the adequacy of the reduction, plate length, and screw length and trajectory. These were all deemed to be adequate. At this point, 2g of vancomycin powder was placed into the wound. The wound was closed in layers with 0 Vicryl for the IT band, followed by 0 Vicryl for the deep subcutaneous tissues, followed by 2-0 Vicryl for the superficial subcutaneous tissues and 3-0 nylon in a vertical mattress interrupted fashion for the skin. The wounds were dressed with Xeroform followed by Mepilex dressings patient was placed into [place] [facility] with the knee unlocked. She was then transferred back to the hospital bed after reversal of anesthesia having suffered no untoward complications. All counts were correct at the end of the case. Implant Name Type Inv. Item Serial No. Sales Broker Lot No. LRB No. Used Action SCREW,CRTX,STAP,3.5X60MM ([id number]) - [id number] IMPLANTS SCREW,CRTX,STAP,3.5X60MM ([id number]) [facility] Left 1 Implanted SCREW,CRTX,STAP,3.5X65MM ([id number]) - [id number] IMPLANTS SCREW,CRTX,STAP,3.5X65MM ([id number]) [facility] Left 1 Implanted SCREW,LCK,HEAD,S-TAP,TI,5X26MM ([id number]) - [id number] IMPLANTS SCREW,LCK,HEAD,S- TAP,TI,5X26MM ([id number]) [facility] Left 3 Implanted SCREW,LCK,HEAD,S-TAP,TI,5X28MM ([id number]) - [id number] IMPLANTS SCREW,LCK,HEAD,S- TAP,TI,5X28MM ([id number]) [facility] Left 2 Implanted SCREW,LCK,HEAD,S-TAP,TI,5X55MM ([id number]) - [id number] IMPLANTS SCREW,LCK,HEAD,S- TAP,TI,5X55MM ([id number]) [facility] Left 1 Implanted SCREW,LCK,HEAD,S-TAP,TI,5X70MM ([id number]) - [id number] IMPLANTS SCREW,LCK,HEAD,S- TAP,TI,5X70MM ([id number]) [facility] Left 1 Implanted SCREW,TI,STAP,5X14MM ([id number]) - [id number] IMPLANTS SCREW,TI,STAP,5X14MM ([id number]) [facility]; [facility] Left 1 Implanted SCREW,LCK,HEAD,S-TAP,TI,5X36MM ([id number]) - [id number] IMPLANTS SCREW,LCK,HEAD,S- TAP,TI,5X36MM ([id number]) [facility] Left 1 Implanted PLATE,PROX,LAT,TIB,9H,LT,220MM ([id number]) - [id number] IMPLANTS PLATE,PROX,LAT,TIB,9H,LT,220MM ([id number]) [facility] Left 1 Implanted KWIRE,THRD,SPD,PNT-TP,[id number] ([id number]) - [id number] IMPLANTS KWIRE,THRD,SPD,PNT-TP,[id number] ([id number]) [facility] Left 2 Implanted Number of fracture regions: 2 Periarticular fractures: Partial articular (type B) Diaphyseal fractures: NOT A DIAPHYSEAL FRACTURE Prep solutions applied PRIOR to final prep: CHG in aqueous solution FINAL surgical prep solution: ChloraPrep Was the fracture definitively fixed/managed during this operation? Yes Was the wound re-prepped during or after the case? None Type of closure for all wounds (select all that apply): Primary closure Was negative pressure wound VAC therapy applied, exchanged or removed? No Were local antibiotcs placed into the wound? Powder - vanco What was the deepest layer of tissue debrided? N/A Was irrigation solution used? No saline only Closed fracture characteristics: None Closed fracture bone loss: None OPEN FRACTURES: If there is a wound, was the wound managed definitively during this operation? No- no wound management performed during this operation/no wound associated with fracture Open fracture Gustilo classification: NOT OPEN FRACTURE Open fracture skin management: NOT OPEN Open fracture muscle injury:NOT OPEN FRACTURE Open fracture arterial injury:NOT OPEN FRACTURE Open fracture contamination: NOT OPEN FRACTURE Open fracture bone:NOT OPEN FRACTURE ?? Associated attestation - Yolanda Still MD - 01/09/2020 6:32 AM EST Attestation: Case Date: 01/08/2020 I was present and I participated during the entire procedure (does not need to include opening and closing). Yolanda Still MD 01/09/2020 Brief Op Note - Judd Lyon MD - 01/08/2020 3:12 PM EST Brief Operative Note Patient Name: Kalyn Darnell Case : [id number] MR#: [id number] Case Date: 01/08/2020 Surgeon: Surgeon(s) and Role: * Yolanda Still MD - Primary * Judd Lyon MD - Resident * Carrilol Manley MD - Resident Preoperative diagnosis: L proximal tibia fracture Postoperative diagnosis: L proximal tibia fracture Procedure(s) (LRB): ORIF TIBIAL SHAFT, PLATE & SCREWS (WRVU 12.54) (Left) MODIFIER TIBIA SABRINA SYSTEM SYNTHES (N/A) MODIFIER LOCKING SMALL FRAGMENT SYNTHES (N/A) Anesthesia: General Findings: displaced proximal tibia fracture with intra-articular extension Complications: None Intake: Intraprocedure Crystalloid Total None Transfusion No data found in the last 1 encounters. Output: Estimated Blood Loss: * No values recorded between 01/08/2020 1:41 PM and 01/08/2020 2:52 PM * Urine Output:: (no urine output recorded) Other Output: (no other output recorded) Drains: None Specimens removed during surgery: None Disposition: awakened from anesthesia, extubated and taken to the recovery room in a stable condition, having suffered no apparent untoward event. Condition: doing well without problems Attestation: Case Date: 01/08/2020 (Please see the Surgical Encounter Summary for any Implant and Specimen details pertinent to this patient.) Plan of Care - Afua Luna OT - 01/08/2020 11:28 AM EST Occupational Therapy Note: OT continues to follow pt during this admission. Pt planned for return to OR today for removal of ex-fix and plating. OT to f/u post-operatively as available/appropriate. Please page with any questions. Joanne Luna, [facility] Pager #[phone] Plan of Care - Charles Gill, PT - 01/08/2020 10:32 AM EST 01/08/20 1032 Rehab Evaluation Document Type contact Total Evaluation Minutes, Physical Therapy 0 Pt going to the OR today for removal of hardware and tibial plating. Will look for post op orders with associated precautions, wt bearing status, ROM restrictions. Plan of Care - Jaimie Martinez RN - 01/08/2020 6:22 AM EST Problem: Patient Care Overview Goal: Plan of Care Review Outcome: Ongoing (Interventions Implemented as Appropriate) 01/07/20 193 Coping/Psychosocial Plan Of Care Reviewed With patient Plan of Care Review Progress progress toward functional goals is gradual OUTCOME EVALUATION NOTE: OUTCOME SUMMARY: Pain not well controlled throughout the night, 8-10/10 pain. All pain directed towards the LLE, multiple PRN IV Dilaudid orders & other PRN's to try to get pain under controll. MD down to bedside to assess, no evidence of compartment syndrome, leg remains elevated. Q4 neurovascular checks unremarkable. PLAN MOVING FORWARD: Continue to monitor pain, I&O's, nutrition, & promote ambulation INDIVIDUALIZED FALL PREVENTION INTERVENTIONS: High Fall Risk Patient-specific fall risk factors per assessment: [current deficits]: Patient has a history of falling, has 2 or more active medical diagnoses, has an actively infusing IV line, has had recent surgery, uses an ambulatory aid, has generalized weakness, has tubes/drains, has a Andrade catheter, is taking opioid/narcotic medications for pain management, is taking (antiarrythmic, antihypertensive, cardiac, antidepressants, antipsychotic, sleep aids, antihistamines), forgets limitations, deficits ([place], glasses, tactile deficits), problems (urge/stress incontinence, diarrhea, N/V, spine precautions). Assistance [level of assistance required for transfers and ambulation]: Bedfast Supervision [direct monitoring required during toileting and ADLs]: 2 assist Surveillance [continuous indirect monitoring]: Purposeful rounding, observation by staff, NKE done at the bedside, bed/chair alarms activated, family at bedside, environmental modifications (waste basket is out of the path and the IV tubing and cords are free from the floor), assistive device available and within reach, commode/urinal/bedpan at bedside, lighting adjusted for task, bed in low position, wheels locked, side rails up (x2 x3), nonskid socks worn OOB, [place] ID band on, no restraints, and call light is within reach at all times. Patient-specific fall prevention interventions for sensory deficits provided, if applicable: [X] No CPG GOAL OUTCOME EVALUATION: Goal: Individualization & Mutuality Outcome: Ongoing (Interventions Implemented as Appropriate) 01/07/20 0353 Mutuality/Individual Preferences What Anxieties, Fears or Concerns Do You Have About Your Health or Care? none What Questions Do You Have About Your Health or Care? none What Information Would Help Us Give You More Personalized Care? none Goal: Fall Prevention-Safe Patient Handling Outcome: Ongoing (Interventions Implemented as Appropriate) 01/06/20229901/07/20 0853 01/07/20 1939 Daily Care Interventions Self-Care Promotion -- -- independence encouraged;BADL personal objects within reach Oak[place] Fall Risk History of Falling -- -- -- Secondary Diagnosis -- -- -- Ambulatory Aids -- -- -- Intravenous Therapy/Heparin/Saline Lock -- -- -- Gait/Transferring -- -- -- Mental Status -- -- -- Score -- -- -- OTHER Oak[place] Fall Risk -- -- -- Restraint Interventions Safety Promotion/Fall Prevention -- fall prevention program maintained;safety round/check completed;activity supervised -- Positioning Body Position -- -- -- Activity Activity Type bedrest -- -- 01/07/20 2317 Daily Care Interventions Self-Care Promotion -- Oak[place] Fall Risk History of Falling 25 Secondary Diagnosis 15 Ambulatory Aids 0 Intravenous Therapy/Heparin/Saline Lock 20 Gait/Transferring 0 Mental Status 0 Score 60 OTHER [place] Fall Risk High Restraint Interventions Safety Promotion/Fall Prevention -- Positioning Body Position independent with trapeze/overhead bed frame Activity Activity Type -- Goal: Infection Control Outcome: Ongoing (Interventions Implemented as Appropriate) 01/07/20 0853 Safety Interventions Isolation Precautions standard precautions maintained Infection Prevention environmental surveillance performed;equipment surfaces disinfected;rest/sleep promoted;single patient room provided;visitors restricted/screened Coping Strategies Supportive Measures active listening utilized;decision-making supported;goal setting facilitated;positive reinforcement provided;problem solving facilitated;relaxation techniques promoted;self-care encouraged;self- responsibility promoted;verbalization of feelings encouraged Goal: Discharge Needs Assessment Outcome: Ongoing (Interventions Implemented as Appropriate) 01/07/20193801/08/20 0614 Activity/Self Care Review of Systems Equipment Currently Used at Home none -- Discharge Needs Assessment Current Discharge Risk lives alone -- Discharge Disposition still a patient -- Living Environment Transportation Available -- family or friend will provide Goal: Interdisciplinary Rounds/Family Conf Outcome: Ongoing (Interventions Implemented as Appropriate) 01/07/201938 Interdisciplinary Rounds/Family Conf Participants patient;nursing;physician;physical therapy Problem: Skin Integrity Impairment, Risk/Actual (Adult) Goal: Identify Related Risk Factors and Signs and Symptoms Related risk factors and signs and symptoms are identified upon initiation of Human Response Clinical Practice Guideline (CPG) Outcome: Ongoing (Interventions Implemented as Appropriate) 01/07/201938 Skin Integrity Impairment, Risk/Actual Skin Integrity Impairment, Risk/Actual: Related Risk Factors surgery/procedure;traumatic injury;immobility Signs and Symptoms (Skin Integrity Impairment) inflammation Goal: Skin Integrity/Wound Healing Patient will demonstrate the desired outcomes by discharge/transition of care. Outcome: Ongoing (Interventions Implemented as Appropriate) 01/07/201938 Skin Integrity Impairment, Risk/Actual (Adult) Skin Integrity/Wound Healing making progress toward outcome Plan of Care - Frances Douglas RN - 01/07/2020 7:55 PM EST Problem: Patient Care Overview Goal: Plan of Care Review Outcome: Ongoing (Interventions Implemented as Appropriate) 01/07/201938 Coping/Psychosocial Plan Of Care Reviewed With patient Plan of Care Review Progress progress toward functional goals is gradual OUTCOME EVALUATION NOTE: OUTCOME SUMMARY: ?? Patient continues to have 4-8/10 pain in LLE, treated with scheduled tylenol, PRN dilaudid and one time dose of IV dilaudid given with good effect. Patient met with PT this morning, repositioned to sitting position in bed, declined activity, trapeze lift in place above bed to assist with repositioning. Andrade continues to output clear yellow urine. LLE pin sites continue to output bloody drainage throughout shift, MD paged and aware. Blood pressures were soft this morning, 80's-90's systolic, paged. Swelling continues in LLE, MD came to bedside and assessed pins and dressings, all sites and linens changed. Neurovascular checks remained benign. ?? PLAN MOVING FORWARD: ?? Monitor and manage pain. Continue Q 4h neurovascular checks and monitor for compartment syndrome. Encourage activity as tolerated. ? INDIVIDUALIZED FALL PREVENTION INTERVENTIONS: ?? Patient-specific fall risk factors per assessment: High fall risk ?? Assistance: Bedrest, trapeze lift. ?? Supervision: Hands on. ?? Surveillance: ID band on, bed locked in low position, call robertson within reach, hourly rounding, clutter free environment, bed/chair alarm on, calls appropriate. ?? Patient-specific fall prevention interventions for sensory deficits provided: na CPG GOAL OUTCOME EVALUATION: Goal: Fall Prevention-Safe Patient Handling Outcome: Ongoing (Interventions Implemented as Appropriate) 01/06/20 23001/07/20 0853 01/07/20 1939 Daily Care Interventions Self-Care Promotion -- -- independence encouraged;BADL personal objects within reach Oakley Fall Risk History of Falling -- 25 -- Secondary Diagnosis -- 15 -- Ambulatory Aids -- 0 -- Intravenous Therapy/Heparin/Saline Lock -- 20 -- Gait/Transferring -- 0 -- Mental Status -- 0 -- Score -- 60 -- OTHER Oak[place] Fall Risk -- High -- Restraint Interventions Safety Promotion/Fall Prevention -- fall prevention program maintained;safety round/check completed;activity supervised -- Positioning Body Position -- supine -- Activity Activity Type bedrest -- -- Goal: Infection Control Outcome: Ongoing (Interventions Implemented as Appropriate) 01/07/20 0853 Safety Interventions Isolation Precautions standard precautions maintained Infection Prevention environmental surveillance performed;equipment surfaces disinfected;rest/sleep promoted;single patient room provided;visitors restricted/screened Coping Strategies Supportive Measures active listening utilized;decision-making supported;goal setting facilitated;positive reinforcement provided;problem solving facilitated;relaxation techniques promoted;self-care encouraged;self- responsibility promoted;verbalization of feelings encouraged Goal: Discharge Needs Assessment Outcome: Ongoing (Interventions Implemented as Appropriate) 01/07/201938 Activity/Self Care Review of Systems Equipment Currently Used at Home none Discharge Needs Assessment Current Discharge Risk lives alone Discharge Disposition still a patient Goal: Interdisciplinary Rounds/Family Conf Outcome: Ongoing (Interventions Implemented as Appropriate) 01/07/201938 Interdisciplinary Rounds/Family Conf Participants patient;nursing;physician;physical therapy Problem: Skin Integrity Impairment, Risk/Actual (Adult) Goal: Identify Related Risk Factors and Signs and Symptoms Related risk factors and signs and symptoms are identified upon initiation of Human Response Clinical Practice Guideline (CPG) Outcome: Ongoing (Interventions Implemented as Appropriate) 01/07/201938 Skin Integrity Impairment, Risk/Actual Skin Integrity Impairment, Risk/Actual: Related Risk Factors surgery/procedure;traumatic injury;immobility Signs and Symptoms (Skin Integrity Impairment) inflammation Goal: Skin Integrity/Wound Healing Patient will demonstrate the desired outcomes by discharge/transition of care. Outcome: Ongoing (Interventions Implemented as Appropriate) 01/07/201938 Skin Integrity Impairment, Risk/Actual (Adult) Skin Integrity/Wound Healing making progress toward outcome Plan of Care - Afua Luna OT - 01/07/2020 3:15 PM EST Occupational Therapy Note: Order received and chart reviewed. Attempted to see pt this PM in collaboration with PT. Pt supine in bed with eyes closed, conversing in a whisper. Pt reported that she had just repositioned in bed, was applying ice to LLE and attempting to rest, and declined participation. Per RN, pt with low BP andpoor pain control. Made plan with pt for OT to return tomorrow for evaluation. Please page with any questions, Joanne Luna OT Inpatient Rehab Pager #[phone] Plan of Care - Charles Gill PT - 01/07/2020 2:18 PM EST Physical Therapy Evaluation Patient profile: Kalyn Darnell Case is a 59 y.o. female 1 Day Post-Op s/p L knee spanning ex-fix for L proximal tibia fracture. Patient with the following active problems: Past Medical History: Diagnosis Date ??? Anxiety [...] 8.78) performed by Yolanda Still MD at [facility] MAIN OR ??? SHOULDER ARTHROSCOPY ??? TIBIA FRACTURE SURGERY ??? URETER STENT PLACEMENT Social History: Home Environment: Lives with son in home, 3 steps into home. Bathroom and bedrooms are on 2nd and 3rd floor. 10 steps to landing and 6 steps up to 2nd floor. 3rd floor attic accessedby set of very steep stairs. Precautions/Special Considerations: NWB LLE with knee spanning external fixator, bloody drainage on gauze and dressings, Hgb 9.8, anxiety Mobility and Positioning Recommendations: ?? Pt. to utilize chair position or EOB with assist to LLE, Trapeze on bed to allow pt to assist with repositioning ?? Please encourage upright for meal times as able. ?? When pt progresses, Pt encouraged to ambulate frequently with staff, getting into the bathroom for toileting and walking out in the [place] >/= 3 times daily as able. Subjective: ???That feels better now that it is repositioned?? The ice helps Objective: Pt seen for evaluation today. Pain: 6/10 pain, premedicated, sensitivity around pins, zayas pain Vital Signs: SpO2: 96 HR: 71 BP: 93/52 Mental Status: oriented, tired, anxiety, benefitted from reassurance Vision: WFL, reading glasses Skin: L LE with external fixator, gauze reinforced, significant bloody drainage, resident notified, LLE edema Musculoskeletal: ROM: L ankle to neutral Strength: good UE strength, good RLE in supine, LLE fair ankle and toes, assist to SLR Sensation: LT intact, zayas painful/sensitive Bed Mobility: chair position, trapeze ordered, offered attempt to sit EOB in pm, pt declined Transfers: NT, will Need sneaker for R foot Gait:deferred Stairs: NT Therex: IS, deep breathing, ankle pumps, assisted SLR Education: patient has been educated on Bed mobility, Exercise, Breathing exercises, Positioning, Safety , Precautions/protocol, Role of therapy, Discharge planning and goals and needs reinforcement. understanding. Patient status, treatment, and mobility recommendations discussed with nursing. Assessment: Kalyn Burgos was seen today for physical therapy evaluation. Pt presents with pain, impaired LLE skin integrity, LE weakness, joint abnormality, bleeding, low Hgb, hypotension, anxiety, impaired mobility, impaired gait and balance, non-wt bearing status, fatigue. Pt tolerated ROM, repositioning, partial upright, bed exercises, deep breathing. Reports poor sleep and is anxious. Encouraged pt to be more upright and to use chair position and trapeze. RN present and assisted. . The pt would benefit from skilled therapy services while in the hospital to maximize functional abilities. Discharge Recommendations: Anticipated Discharge Disposition: (P) inpatient rehabilitation facility Consult Recommendations: Occupational therapy consult Equipment needs: Rolling walker, Wheelchair and shoe Goals: To be achieved by 01/14: 1. Pt. to demonstrate knowledge of safety limitations and precautions and will appropriately requestassistance for functional activities and to mobilize. 2. Pt. to demonstrate understanding of appropriate L ankle and isometric exercises. 3. Pt. to perform bed mobility with modified independence. 4. Pt. to perform sit to stand transfers with min A using a front wheeled walker. 5. Pt. to ambulate 10 feet with min A using a a front wheeled walker. 6. Pt. to propel a WC x 25 ft with supervision, LLE elevated 7. Family or caregiver to demonstrate understanding of therapeutic interventions to support the careof the patient. Plan: Therapy Frequency: (P) 4-6 times/wk for therapy including balance training, bed mobility training, gait training, home exercise program, patient/family education, range of motion, strengthening,transfer training and wheelchair managment/propulsion training. Patient/family understand and agree with plan as stated above. 2017 PT Evaluation Code Rationale: ?? Diagnosis & Pertinent Co-Morbidities, personal factors, and present illness affecting Plan ofCare: (see above); Additional personal factors or co- morbidities that impact plan: ?? Total # of Factors: 0 1-2 3+ x ?? Examination of body system impairments, functional limitations and behaviors, and/or participation restrictions. Addressing 1-2 elements Addressing 3 + elements Addressing 4 + elements x ?? Clinical presentation: See assessment above. Fatigue, pain Stable/Uncomplicated Evolving/Fluctuating Symptoms Unstable/Unpredictable x ?? Clinical decision making of moderate complexity based on pt's functional performance as outlined in this evaluation. Time IN / OUT: 9:57-10:32 Total Evaluation Minutes, Physical Therapy: (P) 35 CHARLES GILL PT Pager: [phone] Physical Therapy Inpatient Rehabilitation Department Initial Assessments - Dyan Stewart MSW - 01/07/2020 9:45 AM EST Office of Care Management Initial Assessment RINKU MONROE reviewed record and discussed patient with Care Team. Source of Information: Patient, chart notes, CM-RN Introduced self/reviewed role; services accepted. Reason for Hospitalization: Reason for Admission as Stated by Patient: Broken leg, surgery Past Medical History: Diagnosis Date ??? Anxiety ??? Depression ??? IBS (irritable bowel syndrome) ??? Nephrolithiasis ??? No known health problems ??? Sepsis due to urinary tract infection Hospitalizations Within the Past 30 Days: None Anticipated Length Of Stay (If known): Expected Length of Hospitalization: 5 Current Decision-Making Capacity: Patient is cognitively intact, own decision maker. Advance Care Planning: No AD (requests [place] booklet). If AD's have not been completed leonie Burgos would be surrogate decision maker per [place] surrogate decision making law. Any patient receiving care at [facility] must abide by [place] law. The hierarchy for surrogate decision making is: (a) Patient???s spouse, or civil union partner or common law spouse unless there is a divorce proceeding, separation agreement, or restraining order limiting that person???s relationship with the patient. (b) Any adult son or daughter of the patient. (c) Either parent of the patient. (d) Any adult brother or sister of the patient. (e) Any adult grandchild of the patient. (f) Any grandparent of the patient. (g) Any adult aunt, uncle, niece, or nephew of the patient. (h) A close friend of the patient. (i) The agent with financial power of pan operator or a conservator appointed in accordance with RSA 464-A. (j) The guardian of the patient???s estate. Current Coping/Education/Information Needs: Patient identifies self as anxious, coping well, has hadprevious similar injuries. Current Functional Ability: Bedrest Functional Status Prior to Admission: Independent, active. Home Environment: Lives with son in home, 3 steps into home. Bathroom and bedrooms are on 2nd and 3rd floor. 10 steps to landing and 6 steps up to 2nd floor. 3rd floor attic accessed by set of very steep stairs. Social & Family Supports/Community Resources: Son, brother Piero Darnell in [place]., friends, neighbors, [facility] [employer]. Behavioral Health History: Yes, long history of anxiety, currently on Prozac, prescribed by PCP. Not active in counseling. Substance Use/Abuse: None Other Pertinent/Service Specific Information: None Health/Prescription Coverage: Primary Insurance: MEDICAID [place] Secondary Insurance: N/A Prescription Coverage: [place] Medicaid Preferred Pharmacy: [facility] [place] [id number] Other: NA Primary Care Provider: April Cummins APRN [phone] Patient/Caregiver Goals of Treatment: to be fed, not have any pain. Potential Needs for Transition of Care: Rehab/SNF: TBD Home Health: TBD DME: NA Dialysis: NA Community Resources: [employer], family, son. Transportation: Ambulance Other: NA Anticipated Barriers to Discharge/Special Considerations: Awaiting team recommendations regarding level of care needed upon discharge. Assessment: Pleasant, engageable female, appearing in mild distress throughout interview process. Patient has experienced previous fractures and is well educated around course of treatment. Patient acknowledges that her anxiety increases when she is out of her home surroundings. Plan: HERB-RN will follow with team, meet with patient to explore options for rehab. A member of the Care Management team will continue to monitor progress, follow for continuity of care and assist with transition of care planning. RINKU MONROE Pager: [phone] Plan of Care - Ad South RN - 01/07/2020 4:06 AM EST Problem: Patient Care Overview Goal: Plan of Care Review Outcome: Ongoing (Interventions Implemented as Appropriate) 01/07/20 0355 Coping/Psychosocial Plan Of Care Reviewed With patient OUTCOME EVALUATION NOTE: OUTCOME SUMMARY: Pt is in significant amount of pain, oxycodone had minimal effect, 1 x dose dilaudid had positive effect. LLE pin sites are bleeding continuously, saturating pillow cases, dressings changed and reinforced, Dr. Tam came to assess patient, endorsed to patient bleeding is common in this type of surgery. Pt was repositioned to straighten and remove extra linen and remove wrinkles, significant pain withany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 tibial plateau. There is underlying tricompartmental cho ndrosis. 6. The comminuted fractures at the tibi al eminence also involve the attachments of the posterior roots of both the media l and lateral menisci. Although no discrete or displaced meniscal tear is i dentified, fractures at these attachment sites could contribute to functional equ ivalence of meniscal root avulsion tears. 7. Muscle strain/injury of the popliteu s, plantaris, soleus and muscles of the anterior and lateral compartments. 8. Large lipohemarthrosis. Hypointense focus in the lateral suprapatellar recess could represent postsurgical mate rial or a small focus of gas, related to recent instrumentation. Thank you for letting us participate in the care of this patient. For questions regarding this report, please contact th e number below. Yolanda Still MD IMG MRI ORDERABLES Differential, Automated (01/09/2020 8:33 AM EST) P athologist Signature Neutrophils % 67.6 % [facility] Neutr Abs (ANC) 4.06 1.70 - [facility] 6.10 [facility] x10(3)/[facility] LABORATORY Lymphocytes % 22.0 % [facility] Lymphocytes Abs 1.3 0.9 - 3.2 [facility] x10(3)/[facility] LABORATORY Monocytes % 9.3 % [facility] Monocyte Abs 0.6 0.3 - 0.9 [facility] x10(3)/[facility] LABORATORY Eosinophils % 0.5 % [facility] Eosinophils Abs 0.0 0.0 - 0.4 [facility] x10(3)/[facility] LABORATORY Basophils % 0.3 % [facility] Basophils Abs 0.0 0.0 - 0.1 [facility] x10(3)/[facility] LABORATORY Immature Gran % 0.30 % [facility] Comment: Immature granulocytes(IG's)percentage an d absolute count will include metamyelocytes, myelocytes, and promyelo cytes. Blood smears from CBCs yielding IG's will be scanned manually for concor dance. If this scan disagrees with the automated IG or if promyelocytes are not ed, a manual differential will be performed. Elda Gran Abs 0.02 0.00 - 0.04 x10(3)/[facility] LABORATORY Specimen Anatomical Collection Method Collection Time Receive d Time (Source) Location / / Volume Laterality Blood specimen 01/09/2020 8:33 0 (specimen) AM EST 8:39 AM EST Resulting Agency Comment Spec In Lab Rasta Em MD HEMATOLOGY ORDERABLES Performing Organization Address City/State/ZIP [place] [address] (ABNORMAL) Hemogram (01/09/2020 8:33 AM EST) Analysis Performed At Patho logist Time Signature WBC 6.0 4.0 - 9.5 [facility] LABORATORY RBC 2.65 (L) 4.00 - [place] 5.21 [facility] x10(6)/[facility] LABORATORY Hemoglobin 8.3 (L) 11.7 - [place]AR[place] 15.5 gm/dL [facility] Hematocrit 25.7 (L) 35.7 - [place] STEWART[place]MAR[place] 45.8 % [facility] MCV 97.0 (H) 82.6 - [facility] 94.4 [facility] LABORATORY MCH 31.3 27.1 - [place]AR[place] 32.0 pg [facility] MCHC 32.3 31.7 - [place] 35.0 gm/dL [facility] Platelets 150 145 - 357 [facility] x10(3)/[facility] LABORATORY RDWSD 47.4 (H) 37.0 - [place]AR[place] 46.0 [facility] LABORATORY RDWCV 13.3 11.5 - [place] DEMAR[place] 14.1 % [facility] MPV 10.2 7.6 - 12.9 [facility] LAB[facility] nRBC % Auto 0.0 % [facility] nRBC Abs Auto 0.000 0.000 - [place] DEMAR[place] 0.000 [facility] x10(3)/[facility] LABORATORY Specimen Anatomical Collection Method Collection Time Receive d Time (Source) Location / / Volume Laterality Blood specimen 01/09/2020 8:33 0 (specimen) AM EST 8:39 AM EST Resulting Agency Comment Spec In Lab Rasta Em MD HEMATOLOGY ORDERABLES Performing Organization Address City/State/ZIP [place] [address] (ABNORMAL) Basic Metabolic Panel (non-fasting) (01/09/2020 8:33 AM EST) P athologist Signature Glucose Lvl 105 65 - 199 [facility] mg/dL [facility] Comment: Diabetes: >=200 mg/dL plus symp toms BUN 9 8 - 18 mg/dL [facility] Creatinine 0.69 (L) 0.70 - 1.20 mg/dL [facility] Sodium 137 135 - 145 mmol/L [facility] Potassium 4.3 3.5 - 5.0 mmol/L [facility] Comment: Please note: ??Patients with WBC >100,00 0 may have falsely elevated Potassium levels. ??For accurate Potassium quantif ication in these patients send serum separator tube (gold top) for subsequent determinations. ??Contact the Clinical Chemistry Laboratory if there are any qu estions. Chloride 100 98 - 107 mmol/L [facility] CO2 29 22 - 31 mmol/L [facility] Anion Gap 8 5 - 15 mmol/L [facility] Calcium 8.8 8.5 - 10.5 mg/dL [facility] Estimated GFR 94 >=60 mL/min/1.73 m?? [facility] Comment: The eGFR was calculated using the CKD-EP I equation. As with all creatinine based estimates of kidney function, eGFR values calculated with the CKD-EPI equation are not accurate in patients wi th acute kidney failure, extremes of body mass or the acutely ill. http://[employer]/[facility] eGFR 109 >=60 mL/min/1.73 m?? [facility] Comment: The eGFR was calculated using the CKD-EP I equation. As with all creatinine based estimates of kidney function, eGFR values calculated with the CKD-EPI equation are not accurate in patients wi th acute kidney failure, extremes of body mass or the acutely ill. http://[employer]/[facility] Specimen Anatomical Collection Method Collection Time Receive d Time (Source) Location / / Volume Laterality Blood specimen 01/09/2020 8:33 0 (specimen) AM EST 8:39 AM EST Resulting Agency Comment Spec In Lab Yolanda Still MD CHEMISTRY ORDERABLES Performing Organization Address City/State/ZIP [place] [address] XR Tibia Fibula Left (Generic) (01/08/2020 3:47 PM EST) Anatomical Region Laterality Modality Left Digital Radiography Specimen (Source) Anatomical Location Collection Method / Collectio n Time Received Time / Laterality Volume Impressions 01/08/2020 4:01 PM EST ORIF of proximal comminuted tibial fracture with good alignment. Thank you for letting us participate in the care of this patient. For questions regarding this report, please contact e number below. ? Narrative 01/08/2020 4:01 PM EST EXAMINATION: XR TIBIA FIBULA LEFT (GENERIC) CLINICAL HISTORY: s/p ORIF tibial fractu re TECHNIQUE: 2 views LEFT tibia and fibula COMPARISON: Preoperative CT examination 11/05/2020 FINDINGS: ORIF of comminuted proximal tibial fract ure with a laterally oriented plate and 11 threaded interlocking screws. There i s good alignment of fractures site. A linear fracture component, oriented medi ally, is from the parent bone by 5.5 mm. A comminuted fracture of the proximal fibular shaft extending into the head is once again identified and chacon s not ranged in position with good alignment. There is good alignment at th e knee joint. Fractures of the intercondylar tibial spines are noted. P lateau extension is not well appreciated on the current radiograph. Suprapatellar effusion is evident. There is good alignment at the ankle joint. There is p ostoperative air and edema. Procedure Note Eriberto Rojas MD - 01/08/2020Forma tting of this note might be different from the original. EXAMINATION: XR TIBIA FIBULA LEFT (GENER IC) CLINICAL HISTORY: s/p ORIF tibial fractu re TECHNIQUE: 2 views LEFT tibia and fibula COMPARISON: Preoperative CT examination 11/05/2020 FINDINGS: ORIF of comminuted proximal tibial fract ure with a laterally oriented plate and 11 threaded interlocking screws. There i s good alignment of fractures site. A linear fracture component, oriented medi ally, is from the parent bone by 5.5 mm. A comminuted fracture of the proximal fibular shaft extending into the head is once again identified and chacon s not ranged in position with good alignment. There is good alignment at th e knee joint. Fractures of the intercondylar tibial spines are noted. P lateau extension is not well appreciated on the current radiograph. Suprapatellar effusion is evident. There is good alignment at the ankle joint. There is p ostoperative air and edema. IMPRESSION ORIF of proximal comminuted tibial fract ure with good alignment. Thank you for letting us participate in the care of this patient. For questions regarding this report, please contact e number below. Yolanda Still MD [facility] DX ORDERABLES XR Fluoro No Rad <1Hr - OR Use (01/08/2020 2:25 PM EST) Specimen (Source) Anatomical Location Collection Method / Collectio n Time Received Time / Laterality Volume Narrative [facility] - 01/08/2020 2:26 PM EST This exam is auto-finalizing. No interpr etation was done. Yolanda Still MD IM FLUORO ORDERABLES Performing Organization Address City/State/ZIP Code Phon e Number [place], [place] (ABNORMAL) Differential, Automated (01/07/2020 1:58 AM EST) [facility] gist Method Time Signature Neutrophils % 91.1 % [facility] Neutr Abs (ANC) 6.85 (H) 1.70 - [facility] 6.10 [facility] x10(3)/[facility] L LABORATORY Lymphocytes % 6.0 % [facility] Lymphocytes Abs 0.4 (L) 0.9 - 3.2 [facility] x10(3)/[facility] LABORATORY Monocytes % 2.4 % [facility] Monocyte Abs 0.2 (L) 0.3 - 0.9 [facility] x10(3)/[facility] LABORATORY Eosinophils % 0.0 % [facility] Eosinophils Abs 0.0 0.0 - 0.4 [facility] x10(3)/[facility] LABORATORY Basophils % 0.1 % [facility] Basophils Abs 0.0 0.0 - 0.1 [facility] x10(3)/[facility] LABORATORY Immature Gran % 0.40 % [facility] Comment: Immature granulocytes(IG's)percentage an d absolute count will include metamyelocytes, myelocytes, and promyelo cytes. Blood smears from CBCs yielding IG's will be scanned manually for concor dance. If this scan disagrees with the automated IG or if promyelocytes are not ed, a manual differential will be performed. Elda Gran Abs 0.03 0.00 - 0.04 x10(3)/[facility] LABORATORY Specimen Anatomical Collection Method Collection Time Receive d Time (Source) Location / / Volume Laterality Blood specimen 01/07/2020 1:58 0 (specimen) AM EST 2:27 AM EST Resulting Agency Comment Spec In Lab Judd Lyon MD HEMATOLOGY ORDERABLES Performing Organization Address City/State/ZIP [place] [address] (ABNORMAL) Hemogram (01/07/2020 1:58 AM EST) Analysis Performed At Patho logist Time Signature WBC 7.5 4.0 - 9.5 [facility] x10(3)/[facility] LABORATORY RBC 3.17 (L) 4.00 - [facility] 5.21 [facility] x10(6)/[facility] LABORATORY Hemoglobin 9.8 (L) 11.7 - [facility] 15.5 gm/dL [facility] Hematocrit 30.4 (L) 35.7 - [facility] % [facility] MCV 95.9 (H) 82.6 - [facility] 94.4 fL [facility] MCH 30.9 27.1 - [facility] 32.0 pg [facility] MCHC 32.2 31.7 - [place]AR[place] 35.0 gm/dL [facility] Platelets 195 145 - 357 [facility] x10(3)/[facility] LABORATORY RDWSD 48.6 (H) 37.0 - [place] DEMARCO 46.0 [facility] LABORATORY RDWCV 13.6 11.5 - [facility] 14.1 % [facility] MPV 10.2 7.6 - 12.9 [facility] LABORATORY nRBC % Auto 0.0 % [facility] nRBC Abs Auto 0.000 0.000 - [facility] 0.000 [facility] x10(3)/[facility] LABORATORY Specimen Anatomical Collection Method Collection Time Receive d Time (Source) Location / / Volume Laterality Blood specimen 01/07/2020 1:58 0 (specimen) AM EST 2:27 AM EST Resulting Agency Comment Spec In Lab Judd Lyon MD HEMATOLOGY ORDERABLES Performing Organization Address City/State/[place] [address] Basic Metabolic Panel (non-fasting) (01/07/2020 1:58 AM EST) P athologist Signature Glucose Lvl 150 65 - 199 [facility] mg/dL [facility] Comment: Diabetes: >=200 mg/dL plus symp toms BUN 9 8 - 18 mg/dL [facility] Creatinine 0.78 0.70 - 1.20 mg/dL [facility] Sodium 135 135 - 145 mmol/L [facility] Potassium 3.8 3.5 - 5.0 mmol/L [facility] Comment: Please note: ??Patients with WBC >100,00 0 may have falsely elevated Potassium levels. ??For accurate Potassium quantif ication in these patients send serum separator tube (gold top) for subsequent determinations. ??Contact the Clinical Chemistry Laboratory if there are any qu estions. Chloride 101 98 - 107 mmol/L [facility] CO2 23 22 - 31 mmol/L [facility] Anion Gap 11 5 - 15 mmol/L [facility] Calcium 8.6 8.5 - 10.5 mg/dL [facility] Estimated GFR 82 >=60 mL/min/1.73 m?? [facility] Comment: The eGFR was calculated using the CKD-EP I equation. As with all creatinine based estimates of kidney function, eGFR values calculated with the CKD-EPI equation are not accurate in patients wi th acute kidney failure, extremes of body mass or the acutely ill. http://[employer]/[facility] eGFR 95 >=60 mL/min/1.73 m?? [facility] Comment: The eGFR was calculated using the CKD-EP I equation. As with all creatinine based estimates of kidney function, eGFR values calculated with the CKD-EPI equation are not accurate in patients wi th acute kidney failure, extremes of body mass or the acutely ill. http://[employer]/[facility] Specimen Anatomical Collection Method Collection Time Receive d Time (Source) Location / / Volume Laterality Blood specimen 01/07/2020 1:58 0 (specimen) AM EST 2:27 AM EST Resulting Agency Comment Spec In Lab Yolanda Still MD CHEMISTRY ORDERABLES Performing Organization Address City/State/[place] [address] Knee wo Contrast Left (Generic) (01/06/2020 10:28 PM EST) Anatomical Region Laterality Modality Knee Left Computed Tomography Specimen (Source) Anatomical Location Collection Method / Collectio n Time Received Time / Laterality Volume Impressions 01/07/2020 5:53 AM EST 1. ??Highly comminuted fracture of the medial and tibial lateral plateau fracture extending to the metadiaphysis, Schatzke r 6. 2. ??Comminuted displaced fracture of e proximal fibula. Thank you for letting us participate in the care of this patient. For questions regarding this report, please contact sally number below. ? Narrative 01/07/2020 5:53 AM EST EXAMINATION: CT KNEE WO CONTRAST LEFT (GENERIC) CLINICAL HISTORY: Trauma with proximal t ibia fracture pre-operative planning- please scan thro ug entirety of tibial fracture TECHNIQUE: CT of the left knee performed without in travenous contrast COMPARISON: Radiographs of the left knee from 2019 FINDINGS: There is redemonstration of a highly com minuted displaced fracture of the proximal tibial diaphysis. Fracture is c omminuted with displacement and depression fracture of the central poste rior aspect of both the middle and lateral tibial plateau with fragmentatio n of the tibial spines. There is a minimally displaced depressed fracture o f the posterior lateral aspect of the lateral tibial plateau. Fracture extends inferiorly to involve the medial and lateral cortex of the proximal tibial di aphysis with comminution. There is approximately 8mm anterior displacement of the distal fracture fragment and mild apex anterior angulation. There is a com minuted fracture of the fibula head and neck with fracture extending into the pr oximal tibial talar fibular articulation. The distal femur and beckwith la are intact. Incidental note of a small fabella. There is a moderate to la rge knee joint effusion and diffuse superficial soft tissue stranding and ed megan. External fixation pins traverse the distal femoral and mid tibial diaphysis. Procedure Note Sienna Sherman MD - 01/07/2020 EXAMINATION: CT KNEE WO CONTRAST LEFT (G ENERIC) CLINICAL HISTORY: Trauma with proximal t ibia fracture pre-operative planning- please scan thro ug entirety of tibial fracture TECHNIQUE: CT of the left knee performed without in travenous contrast COMPARISON: Radiographs of the left knee from 2019 FINDINGS: There is redemonstration of a highly com minuted displaced fracture of the proximal tibial diaphysis. Fracture is c omminuted with displacement and depression fracture of the central poste rior aspect of both the middle and lateral tibial plateau with fragmentatio n of the tibial spines. There is a minimally displaced depressed fracture o f the posterior lateral aspect of the lateral tibial plateau. Fracture extends inferiorly to involve the medial and lateral cortex of the proximal tibial di aphysis with comminution. There is approximately 8mm anterior displacement of the distal fracture fragment and mild apex anterior angulation. There is a com minuted fracture of the fibula head and neck with fracture extending into the pr oximal tibial talar fibular articulation. The distal femur and beckwith la are intact. Incidental note of a small fabella. There is a moderate to la rge knee joint effusion and diffuse superficial soft tissue stranding and ed megan. External fixation pins traverse the distal femoral and mid tibial diaphysis. IMPRESSION 1. Highly comminuted fracture of the me dial and tibial lateral plateau fracture extending to the metadiaphysis, Schatzke r 6. 2. Comminuted displaced fracture of the proximal fibula. Thank you for letting us participate in the care of this patient. For questions regarding this report, please contact e number below. Yolanda Still MD IMG CT ORDERABLES XR Fluoro No Rad <1Hr - OR Use (01/06/2020 8:07 PM EST) Specimen (Source) Anatomical Location Collection Method / Collectio n Time Received Time / Laterality Volume Narrative [facility] - 01/06/2020 8:07 PM EST This exam is auto-finalizing. No interpr etation was done. Viky Govea MD IM FLUORO ORDERABLES Performing Organization Address City/State/ZIP Code Phon e Number [place], [place] ABORH Recheck Status (01/06/2020 6:42 PM EST) [facility] gist Method Time Signature ABORH Recheck Order Placed [facility] LABORATORY ABORH Type Complete [facility] LABORATORY Specimen Anatomical Collection Method Collection Time Receive d Time (Source) Location / / Volume Laterality Blood specimen 01/06/2020 6:42 0 (specimen) PM EST 6:46 PM EST Resulting Agency Comment Spec In Lab Carrillo Manley MD BLOOD BANK ORDERABLES Performing Organization Address City/[facility]/[place] [address] Antibody screen (01/06/2020 6:42 PM EST) [facility] Method Time Signature Ab Screen Negative [facility] LABORATORY Expires at 01/09/2020 [facility] [id number] on: [facility] Specimen Anatomical Collection Method Collection Time Receive d Time (Source) Location / / Volume Laterality Blood specimen 01/06/2020 6:42 0 (specimen) PM EST 6:46 PM EST Resulting Agency Comment Spec In Lab Carrillo Manley MD BLOOD BANK ORDERABLES Performing Organization Address City/[facility]/[place] [address] ABO/Rh Typing (01/06/2020 6:42 PM EST) athologist Signature ABORh Type O Pos [facility] Specimen Anatomical Collection Method Collection Time Receive d Time (Source) Location / / Volume Laterality Blood specimen 01/06/2020 6:42 0 (specimen) PM EST 6:46 PM EST Resulting Agency Comment Spec In Lab Carrillo Manley MD BLOOD BANK ORDERABLES Performing Organization Address City/[facility]/[place] [address] (ABNORMAL) Differential, Automated (01/06/2020 6:41 PM EST) [facility] Method Time Signature Neutrophils % 80.4 % [facility] Neutr Abs (ANC) 6.87 (H) 1.70 - [facility] 6.10 [facility] x10(3)/[facility] LABORATORY Lymphocytes % 12.6 % [facility] Lymphocytes Abs 1.1 0.9 - 3.2 [facility] x10(3)/[facility] LABORATORY Monocytes % 6.1 % [facility] Monocyte Abs 0.5 0.3 - 0.9 [facility] x10(3)/[facility] LABORATORY Eosinophils % 0.2 % [facility] Eosinophils Abs 0.0 0.0 - 0.4 [facility] [facility] x10(3[facility] LABORATORY Basophils % 0.5 % [facility]OR[facility] Basophils Abs 0.0 0.0 - 0.1 [facility] x10(3)/[facility] LABORATORY Immature Gran % 0.20 % [facility] Comment: Immature granulocytes(IG's)percentage an d absolute count will include metamyelocytes, myelocytes, and promyelo cytes. Blood smears from CBCs yielding IG's will be scanned manually for concor dance. If this scan disagrees with the automated IG or if promyelocytes are not ed, a manual differential will be performed. Elda Gran Abs 0.02 0.00 - 0.04 x10(3)/[facility] LABORATORY Specimen Anatomical Collection Method Collection Time Receive d Time (Source) Location / / Volume Laterality Blood specimen 01/06/2020 6:41 0 (specimen) PM EST 6:50 PM EST Resulting Agency Comment Spec In Lab Carrillo Manley MD HEMATOLOGY ORDERABLES Performing Organization Address City/State/ZIP [place] [address] (ABNORMAL) Hemogram (01/06/2020 6:41 PM EST) Analysis Performed At Patho logist Time Signature WBC 8.6 4.0 - 9.5 [facility] x10(3)/[facility] LABORATORY RBC 3.40 (L) 4.00 [facility] x10(6)/[facility] LABORATORY Hemoglobin 10.6 (L) 11.7 - [facility] 15.[facility] gm/dL [facility] Hematocrit 32.5 (L) 35.7 - [facility] 45[facility] % [facility] MCV 95.6 (H) 82.6 - [facility] 94.4 fL [facility] MCH 31.2 27.1 - [facility] 32.0 pg [facility] MCHC 32.6 31.7 - [facility] 35.[facility] gm/dL [facility] Platelets 195 145 - 357 [facility] x10(3)/[facility] LABORATORY RDWSD 47.7 (H) 37.0 - [place] 46.0 [facility] LABORATORY RDWCV 13.6 11.5 - [place] 14.1 % [facility] LABORATORY MPV 10.0 7.6 - 12.9 [facility] LABORATORY nRBC % Auto 0.0 % [facility] nRBC Abs Auto 0.000 0.000 - [place] PAL 0.000 [facility] x10(3)/[facility] LABORATORY Specimen Anatomical Collection Method Collection Time Receive d Time (Source) Location / / Volume Laterality Blood specimen 01/06/2020 6:41 0 (specimen) PM EST 6:50 PM EST Resulting Agency Comment Spec In Lab Carrillo Manley MD HEMATOLOGY ORDERABLES Performing Organization Address City/[facility]/ZIP Code Phon e Number [address] APTT (01/06/2020 6:41 PM EST) P athologist Signature PTT 31 25 - 37 sec [facility] Comment: The PTT is NOT appropriate for heparin m onitoring. Use the Anti-Xa level for heparin monitoring (HEP UFH) or LMWH mon itoring (HEP LMW). A PTT less than 37 seconds generally indicates adequate hem ostasis. Specimen Anatomical Collection Method Collection Time Receive d Time (Source) Location / / Volume Laterality Blood specimen 01/06/2020 6:41 0 (specimen) PM EST 6:50 PM EST Resulting Agency Comment Spec In Lab Viky Govea MD HEMATOLOGY ORDERABLES Performing Organization Address City/State/[place] [address] (ABNORMAL) Prothrombin Time (01/06/2020 6:41 PM EST) P athologist Signature PT 13.3 (H) 9.4 - 12.5 [facility] LABORATORY INR 1.2 [facility] LABORATORY Comment: An INR <2.0 indicates adequate procoagul ant activity for hemostasis in most patients without underlying bleeding dis orders, though the INR may not adequately reflect hemostatic capacity i n patients with liver disease and synthetic impairment. The recommended ta rget INR range for therapeutic anticoagulation is 2.0 ? 3.0 for most applications, though lower and higher ranges may be appropriate depending on c linical circumstances. Specimen Anatomical Collection Method Collection Time Receive d Time (Source) Location / / Volume Laterality Blood specimen 01/06/2020 6:41 0 (specimen) PM EST 6:50 PM EST Resulting Agency Comment Spec In Lab Viky Govea MD HEMATOLOGY ORDERABLES Performing Organization Address City/State/ZIP [place] [address] Basic Metabolic Panel (non-fasting) (01/06/2020 6:41 PM EST) P athologist Signature Glucose Lvl 100 65 - 199 [facility] mg/dL [facility] LABORATORY Comment: Diabetes: >=200 mg/dL plus symp toms BUN 10 8 - 18 mg/dL [facility] LABORATORY Creatinine 0.76 0.70 - 1.20 mg/dL [facility] LABORATORY Sodium 139 135 - 145 mmol/L [facility] LABORATORY Potassium 3.6 3.5 - 5.0 mmol/L [facility] LABORATORY Comment: Please note: ??Patients with WBC >100,00 0 may have falsely elevated Potassium levels. ??For accurate Potassium quantif ication in these patients send serum separator tube (gold top) for subsequent determinations. ??Contact the Clinical Chemistry Laboratory if there are any qu estions. Chloride 105 98 - 107 mmol/L [facility] CO2 23 22 - 31 mmol/L [facility] Anion Gap 11 5 - 15 mmol/L [facility] LABORATORY Calcium 8.8 8.5 - 10.5 mg/dL [facility]OR[facility] Estimated GFR 85 >=60 mL/min/1.73 m?? [facility] Comment: The eGFR was calculated using the CKD-EP I equation. As with all creatinine based estimates of kidney function, eGFR values calculated with the CKD-EPI equation are not accurate in patients wi th acute kidney failure, extremes of body mass or the acutely ill. http://[employer]/[facility] eGFR 98 >=60 mL/min/1.73 m?? [facility] Comment: The eGFR was calculated using the CKD-EP I equation. As with all creatinine based estimates of kidney function, eGFR values calculated with the CKD-EPI equation are not accurate in patients wi th acute kidney failure, extremes of body mass or the acutely ill. http://[employer]/[facility] Specimen Anatomical Collection Method Collection Time Receive d Time (Source) Location / / Volume Laterality Blood specimen 01/06/2020 6:41 0 (specimen) PM EST 6:50 PM EST Resulting Agency Comment Spec In Lab Viky Govea MD CHEMISTRY ORDERABLES Performing Organization Address City/State/[place] [address] Head wo Contrast (Generic) (01/06/2020 5:31 PM EST) Anatomical Region Laterality Modality Head Computed Tomography Specimen (Source) Anatomical Location Collection Method / Collectio n Time Received Time / Laterality Volume Impressions 01/06/2020 5:48 PM EST Normal study. Thank you for letting us participate in the care of this patient. For questions regarding this report, please contact e number below. ? Narrative 01/06/2020 5:48 PM EST EXAMINATION: CT HEAD WO CONTRAST (GENERIC) CLINICAL HISTORY: Head trauma, minor, no rmal mental status (Age 19-64y) TECHNIQUE: CT head performed without intravenous co ntrast administration. COMPARISON: None FINDINGS: No intracranial hemorrhage, mass, mass e ffect, hydrocephalus, midline shift, or large acute infarction. The subarachnoid spaces are normal. No significant osseous abnormality. The visualized port ions of the paranasal sinuses and mastoid air cells are clear. Procedure Note Lana Guallpa MD - 01/06/2020Formatting o f this note might be different from the original. EXAMINATION: CT HEAD WO CONTRAST (GENERI C) CLINICAL HISTORY: Head trauma, minor, no rmal mental status (Age 19-64y) TECHNIQUE: CT head performed without intravenous co ntrast administration. COMPARISON: None FINDINGS: No intracranial hemorrhage, mass, mass e ffect, hydrocephalus, midline shift, or large acute infarction. The subarachnoid spaces are normal. No significant osseous abnormality. The visualized port ions of the paranasal sinuses and mastoid air cells are clear. IMPRESSION Normal study. Thank you for letting us participate in the care of this patient. For questions regarding this report, please contact e number below. Viky Govea MD [facility] ORDERABLES Film Library- Storage Only DX Pelvis (01/06/2020 3:18 PM EST) Specimen (Source) Anatomical Location Collection Method / Collectio n Time Received Time / Laterality Volume Narrative [facility] - 01/06/2020 3:18 PM EST This exam is auto-finalizing. It's purpo se is for storage only. Adriana Nicholas MD [facility] FILM LIBRARY ORDERABLES Performing Organization Address City/State/ZIP Code Phon e Number [place], [place] Film Library- Storage Only DX Chest (01/06/2020 3:17 PM EST) Specimen (Source) Anatomical Location Collection Method / Collectio n Time Received Time / Laterality Volume Narrative [facility] - 01/06/2020 3:17 PM EST This exam is auto-finalizing. It's purpo se is for storage only. Adriana Nicholas MD [facility] FILM LIBRARY ORDERABLES Performing Organization Address City/State/ZIP Code Phon e Number [place], [place] documented in this encounter Visit Diagnoses Diagnosis Closed displaced comminuted fracture of shaft of left tibia with routine healing, subsequent encounter Tibia fracture Closed fracture of unspecified part of t ibia Postoperative anemia due to acute blood loss Acute posthemorrhagic anemia ACL tear Sprain of cruciate ligament of knee documented in this encounter Admitting Diagnoses Diagnosis Tibia fracture Closed fracture of unspecified part of t ibia documented in this encounter Administered Medications Inactive Administered Medications - up to 3 most recent administrations Medication Order MAR Action Action Date Dose Rate Site acetaminophen (Tylenol) tablet Given 01/07/2020 11:42 AM EST 1,0 00 mg 1,000 mg 1,000 mg, Oral, EVERY 8 HOURS SCHEDULED, First dose on Sun01/06/20 at 2315, Until Discontinued, Maximum dose of acetaminophen is 4000 mg from all sources in 24 hours., Routine Given 01/07/2020 3:39 AM EST 1,000 mg acetaminophen (Tylenol) tablet 1,000 mg Given 01/09/2020 1:15 PM EST 1,000 mg 1,000 mg, Oral, EVERY 6 HOURS SCHEDULED, First dose (after last modification) on Sun01/08/20 at 0600, Until Discontinued, Maximum dose of acetaminophen is 4000 mg from all sources in 24 hours., Routine Given 01/09/2020 5:45 AM EST 1,000 mg Given 01/09/2020 12:47 AM EST 1,000 mg ceFAZolin (ANCEF) 1g in dextrose 5% New Bag 01/07/2020 2:49 P M EST 1 g 100 mL/hr 50mL 1 g, Intravenous, EVERY 8 HOURS, 3 doses, First dose on Sun01/06/20 at 2200, Last dose on Sun01/07/20 at 1400, Administer over 30 Minutes, Adjust to 4 hours from intraoperative dose. * Beta-lactam based antibiotics (eg. Ampicillin, Cefazolin, Aztreonam) should be administered within 4 hours of the preceding intraoperative dose. * Vancomycin, Flouroquinolones, Clindamycin, Gentamicin, and Metronidazole should be administered within 8 hours of the preceding intraoperative dose., Recovery (Recovery-Hospital Unit), Indication for (Active or Suspected): Prophylaxis New Bag 01/07/2020 7:33 AM EST 1 g 100 mL/hr New Bag 01/06/2020 10:59 PM EST 1 g 100 mL/hr ceFAZolin (ANCEF) 1g in dextrose 5% New Bag 01/09/2020 9:01 A M EST 1 g 100 mL/hr 50mL 1 g, Intravenous, EVERY 8 HOURS, 3 doses, First dose on Sonal 01/08/20 at 1545, Last dose on Sun01/09/20 at 0745, Administer over 30 Minutes, Please adjust first dose to be given 4 hours after intraoperative dose., Indication for (Active or Suspected): Prophylaxis New Bag 01/09/2020 12:47 AM EST 1 g 100 mL/hr New Bag 01/08/2020 3:50 PM EST 1 g 100 mL/hr cyclobenzaprine (Flexeril) tablet 10 mg Given 01/09/2020 1:15 PM EST 10 mg 10 mg, Oral, 3 TIMES DAILY PRN, Starting on Sun01/08/20 at 0027, Until Sun01/09/20 at 1854, Muscle spasms, Routine Given 01/09/2020 9:01 AM EST 10 mg Given 01/08/2020 8:23 AM EST 10 mg Dextromethorphan HBr 5 mg/5 mL oral syrup 15 Given 3:50 AM EST 15 mg mg 15 mg, Oral, EVERY 4 HOURS PRN, Cough, For resetting opioid receptors, give with dilaudid., Starting on Sun01/08/20 at 0316, Until Sun01/09/20 at 1854 enoxaparin (LOVENOX) injection 30 mg 30 mg, Subcutaneous, EVERY 12 HOURS SCHE DULED (2 times per day), First dose (after last modification) on Sun01/09/20 at 2100, Until Disco ntinued, Routine enoxaparin (LOVENOX) injection 40 mg Given 01/09/2020 9:01 AM EST 40 mg 40 mg, Subcutaneous, EVERY 24 HOURS SCHEDULED (Daily), First dose on Sun01/07/20 at 0900, Until Discontinued, Routine Given 01/07/2020 9:55 AM EST 40 mg fentaNYL (PF) 50 mcg/mL injection Given 01/06/2020 5:23 PM EST 50 mcg 1 dose, Starting on Sun01/06/20 at 1714, Until Sun01/06/20 at 1723, TAMARA MARK: cabinet override Given 01/06/2020 5:17 PM EST 50 mcg fentaNYL (PF) 50mcg/mL injection Given 01/08/2020 12:48 PM EST 50 mcg 50 mcg, Intravenous, EVERY 5 MIN PRN, Starting on Sonal 01/08/20 at 1243, Until Sonal 01/08/20 at 1609, Pain, or prior to injection of local anesthetic., Hold for respiratory rate less than 8 breaths per minute. (maximum dose 200 mcg), Day of Surgery (Day of Procedure), Routine FLUoxetine (PROzac) capsule 10 mg Given 01/07/2020 8:55 AM EST 10 mg 10 mg, Oral, 3 TIMES DAILY, First dose (after last modification) on Sun01/06/20 at 2330, Until Discontinued, Routine Given 01/06/2020 11:25 PM EST 10 mg FLUoxetine (PROzac) capsule 20 mg Given 01/09/2020 9:01 AM EST 20 mg 20 mg, Oral, 2 TIMES DAILY, First dose (after last modification) on Sun01/07/20 at 2100, Until Discontinued, Routine Given 01/08/2020 9:14 PM EST 20 mg Given 01/08/2020 8:22 AM EST 20 mg gabapentin (Neurontin) capsule 300 mg Given 01/09/2020 4:03 PM EST 300 mg 300 mg, Oral, 3 TIMES DAILY, First dose on Sun01/08/20 at 1015, Until Discontinued, Routine Given 01/09/2020 9:01 AM EST 300 mg Given 01/08/2020 9:13 PM EST 300 mg HYDROmorphone (DILAUDID) injection 0.2-0.4 Given 01/06/2020 8:57 PM EST 0.2 mg mg 0.2-0.4 mg, Intravenous, EVERY 5 MIN PRN, Starting on Sun01/06/20 at 2028, Until Sun01/06/20 at 215, Pain, Give 0.2 mg every 5 minutes PRN for mild to moderate pain (1-5) Give 0.4 mg every 5 minutes PRN for moderate to severe pain (6-10). Hold for respiratory rate less than 10 per minute. Maximum dose 4 mg over one hour. If multiple pain medications are ordered, start with hydromorphone or morphine and use fentanyl for breakthrough pain., PACU Recovery, Routine Given 01/06/2020 8:48 PM EST 0.4 mg Given 01/06/2020 8:31 PM EST 0.4 mg HYDROmorphone (DILAUDID) injection 0.4 m g Given 01/07/2020 1:02 AM EST 0.4 mg 0.4 mg, Intravenous, ONCE PRN, 1 dose, Starting on Sun01/07/20 at 0047, Until Sun01/07/20 at 0102, Pain, For pain not controlled with current medications, Routine HYDROmorphone (DILAUDID) injection 0.4 m g Given 01/07/2020 6:18 PM EST 0.4 mg 0.4 mg, Intravenous, ONCE PRN, 1 dose, Starting on Sun01/07/20 at 1801, Until Sun01/07/20 at 1818, Pain, For pain not controlled with current medications, Routine HYDROmorphone (DILAUDID) injection 0.4 m g Given 01/07/2020 10:47 PM EST 0.4 mg 0.4 mg, Intravenous, ONCE PRN, 1 dose, Starting on Sun01/07/20 at 2205, Until Sun01/07/20 at 2247, Pain, For pain not controlled with current medications, Routine HYDROmorphone (DILAUDID) injection 0.4 m g Given 01/08/2020 3:36 AM EST 0.4 mg 0.4 mg, Intravenous, ONCE PRN, 1 dose, Starting on Sun01/08/20 at 0317, Until Sun01/08/20 at 0336, Pain, For pain not controlled with current medications, Routine HYDROmorphone (DILAUDID) injection 0.5 m g Given 01/08/2020 12:18 AM EST 0.5 mg 0.5 mg, Intravenous, ONCE PRN, 1 dose, Starting on Sun01/07/20 at 2359, Until Sun01/08/20 at 0018, Pain, For pain not controlled with current medications, Routine HYDROmorphone (DILAUDID) injection 0.5 m g 0.5 mg, Intravenous, ONCE PRN, 1 dose, S tarting on Sun01/08/20 at 0818, Until Sun01/09/20 at 1854, Pain, For pain not cont rolled with current medications, Routine HYDROmorphone (DILAUDID) injection 1 mg Given 01/06/2020 6:47 PM EST 1 mg 1 mg, Intravenous, EVERY 30 MIN PRN, 2 doses, Starting on Sun01/06/20 at 1742, Until Sun01/06/20 at 1847, Pain, STAT Given 01/06/2020 5:45 PM EST 1 mg HYDROmorphone (Dilaudid) tablet 2 mg Given 01/07/2020 9:50 AM EST 2 mg 2 mg, Oral, EVERY 4 HOURS PRN, Starting on Sun01/07/20 at 0806, Until Sun01/09/20 at 1854, Pain, for mild pain (1-3), May give an additional 2 mg once if pain not relieved in 30-60 minutes., Routine Given 01/07/2020 8:53 AM EST 2 mg HYDROmorphone (Dilaudid) tablet 4 mg Given 01/07/2020 2:48 PM EST 4 mg 4 mg, Oral, EVERY 4 HOURS PRN, Starting on Sun01/07/20 at 0806, Until Sun01/09/20 at 1854, Pain, for moderate pain (4-6), May give an additional 2 mg once if pain not relieved in 30-60 minutes., Routine HYDROmorphone (Dilaudid) tablet 6 mg Given 01/09/2020 10:32 AM EST 6 mg 6 mg, Oral, EVERY 4 HOURS PRN, Starting on Sun01/07/20 at 0806, Until Sun01/09/20 at 1854, Pain, for severe pain (7-10), May give an additional 2 mg once if pain not relieved in 30-60 minutes., Routine Given 01/09/2020 5:45 AM EST 6 mg Given 01/08/2020 10:33 PM EST 6 mg lactated Ringers 1,000 mL IV bolus New Bag 01/06/2020 5:32 PM EST 4000 mL/hr at 4,000 mL/hr, Intravenous, ONCE, 1 dose, On Sun01/06/20 at 1709 lactated ringers infusion New Bag 01/09/2020 8:10 AM EST 75 mL/hr 75 mL/hr 75 mL/hr, Intravenous, CONTINUOUS, Starting on Sun01/06/20 at 1709, Until Sun01/09/20 at 1854 New Bag 01/08/2020 12:21 AM EST 75 mL/hr 75 mL/hr New Bag 01/07/2020 10:21 AM EST 75 mL/hr 75 mL/hr lidocaine (LIDODERM) 5 Patch Applied 01/09/2020 1:16 PM 3 patches 15- Thigh % patch 3 patch EST Anterior (Left) 3 patch, Transdermal, EVERY 24 HOURS, First dose on Sun01/08/20 at 1015, Until Discontinued, Apply patch(es) for 12 hours, and then remove for 12 hours, Routine Patch Applied 01/08/2020 11:41 AM EST 3 patches 19- Surgical Site lidocaine (LIDODERM) patch REMOVAL Transdermal, EVERY 24 HOURS, First dose on Sun01/08/20 at 2200, Until Discontinued, Remove lidocaine 5 %(700 mg/patch) patch LORazepam (Ativan) tablet 0.5 mg Given 01/07/2020 1:02 AM EST 0.5 mg 0.5 mg, Oral, ONCE PRN, 1 dose, Starting on Sun01/07/20 at 0047, Until Sun01/07/20 at 0102, Anxiety, Routine midazolam (PF) (VERSED) injection 1 mg Given 01/08/2020 12:53 PM EST 1 mg 1 mg, Intravenous, EVERY 5 MIN PRN, Starting on Sun01/08/20 at 1243, Until Sun01/08/20 at 1609, Sleep, or prior to injection of local anesthetic, Hold for delirium/agitation. (Maximum dose 5 mg)., Day of Surgery (Day of Procedure), Routine Given 01/08/2020 12:48 PM EST 1 mg oxyCODONE (Roxicodone) tablet 15 mg Given 01/07/2020 3:39 AM EST 15 mg 15 mg, Oral, EVERY 4 HOURS PRN, Starting on Sun01/06/20 at 2249, Until Sun01/07/20 at 0808, Pain, severe pain (7-10), For severe pain (7-10). Do not exceed 15 mg in 4 hours. If pain not relieved, call provider., Routine Given 01/06/2020 11:10 PM EST 15 mg polyethylene glycol (Miralax) packet 17 g Given 01/09/2020 9:01 AM EST 17 g 17 g, Oral, 2 TIMES DAILY, First dose on Sun01/06/20 at 2315, Until Discontinued, Routine Given 01/08/2020 9:14 PM EST 17 g Given 01/07/2020 8:11 PM EST 17 g senna-docusate (Pericolace) 8.6-50 mg per Given 2019 9:01 AM EST 2 tablets tablet 2 tablet 2 tablet, Oral, 2 TIMES DAILY, First dose on Sun01/06/20 at 2315, Until Discontinued, Routine Given 01/08/2020 9:14 PM EST 2 tablets Given 01/08/2020 8:22 AM EST 2 tablets sodium chloride 0.9 % (flush) flush 5 mL Given 01/09/2020 9:00 AM EST 5 mLs 5 mL, Intravenous, 2 TIMES DAILY, First dose on Sun01/06/20 at 2315, Until Discontinued, Routine Given 01/08/2020 9:14 PM EST 5 mLs Given 01/08/2020 8:30 AM EST 5 mLs documented in this encounter Active and Recently Administered Medications Times are shown in EST. Scheduled Medication Order 01/07/2020 01/08/2020 01/09/2020 acetaminophen (Tylenol) tablet 1,000 mg (CANCELED) 033 9 (Given - Provider: Ad South RN)0600 (Not Given - Provider: Ad South RN - Reason: See comment - Comment: rescheduled)1142 (Given - Provider: Frances Douglas RN) 1,000 mg, Oral, EVERY 8 HOURS SCHEDULED, First dose on Sun01/06/20 at 2315, Until Discontinued, Maximum dose of acetaminophen is 4000 mg from all sources in 24 hours., Routine 2011 (Not Given - Provider: Jaimie Virk RN - Reason: Patient/family refused - Comment: Pt states this gives her a headache) acetaminophen (Tylenol) tablet 1,000 mg 0600 (Not Given - Provider: Jaimie Martinez RN - Reason: Patient/family refused - Comment: Pt states this medication gives her headaches)1150 (Not Given - Provider: Sanjuana Solomon RN - Reason: Patient/family refused) 0047 (Given - Provider: Olu López RN)0545 (Given - Provider: Olu Hernandez RN)1315 (Given - Provider: Sanjuana Solomon RN) 1,000 mg, Oral, EVERY 6 HOURS SCHEDULED, First dose (after last modification) on Sun01/08/20 at 0600, Until Discontinued, Maximum dose of acetaminophen is 4000 mg from all sources in 24 hours., Routine 1242 (JAN Ho ld - Provider: Admin Adt - Reason: Transfer to a Procedural area)1347 (JAN Unhold - Provider: Admin Adt)1349 (JAN Hold - Provider: Admin Adt - Reason: Transfer to a Procedural area)1532 (JAN Unhold - Provider: Afua Ramachandran RN) 1800 (Not Given - Pr ovider: Sanjuana Solomno RN - Reason: Patient/family refused) ceFAZolin (ANCEF) 1g in dextrose 5% 50mL (COMPLETED) 0 733 (New Bag - Provider: Ad South RN)0803 (Stopped - Provider: Frances Douglas, RN)1449 (New Bag - Provider: Frances Douglas RN)1519 (Stopped - Provider: Frances Douglas RN) 1 g, Intravenous, EVERY 8 HOURS, 3 doses , First dose on Sun01/06/20 at 2200, Last dose on Sun01/07/20 at 1400, Administer over 30 Minutes, Adjust to 4 hours from intraoperative dose. * Beta-lactam base d antibiotics (eg. Ampicillin, Cefazolin , Aztreonam) should be administered within 4 hours of the preceding intraoperative dose. * Vancomycin, Flouroquinolones, Clindamycin, Gentamicin, and Metronidazol e should be administered within 8 hours of the preceding intraoperative dose., Recovery (Recovery-Hospital Unit), Indication for (Active or Suspected): Prophylaxis ceFAZolin (ANCEF) 1g in dextrose 5% 50mL (COMPLETED) 1550 (New Bag - Provider: Afua Ramachandran RN)1620 (Stopped - Provider: Afua Ramachandran RN) 0047 (New Bag - Provider: Olu Hernandez RN)0117 (Stopped - Provider: Olu Hernandez RN)0901 (New Bag - Provider: Sanjuana Solomon, MARLEY)0931 (Stopped - Provider: Sanjuana Solomon RN) 1 g, Intravenous, EVERY 8 HOURS, 3 doses , First dose on Sonal 01/08/20 at 1545, Last dose on Sun01/09/20 at 0745, Administer over 30 Minutes, Please adjust first dose to be given 4 hours after intraoperati ve dose., Indication for (Active or Suspected): Prophylaxis enoxaparin (LOVENOX) injection 30 mg 30 mg, Subcutaneous, EVERY 12 HOURS SCHE DULED (2 times per day), First dose (after last modification) on Sun01/09/20 at 2100, Until Discontinued, Routine enoxaparin (LOVENOX) injection 40 mg (CANCELED) 0955 ( Given - Provider: Frances Douglas RN) 0831 (Not Given - Provider: Sanjuana Solomon RN - Reason: Order parameters not met)1242 ([facility] Hold - Provider: Admin Adt - Reason: Transfer to a Procedural area)1347 ([facility] Unhold - Provider: Admin Adt) 0901 (Given - Provider: Sanjuana Solomon, MARLEY) 40 mg, Subcutaneous, EVERY 24 HOURS SCHE DULED (Daily), First dose on Sun01/07/20 at 0900, Until Discontinued, Routine 1349 ([facility] Hold - Provider: Admin Adt - Reason: Transfer to a Procedural area)1640 ([facility] Unhold - Provider: Admin Adt) FLUoxetine (PROzac) capsule 10 mg (CANCELED) 0855 (Giv en - Provider: Frances Douglas RN) 10 mg, Oral, 3 TIMES DAILY, First dose ( after last modification) on Sun01/06/20 at 2330, Until Discontinued, Routine FLUoxetine (PROzac) capsule 20 mg 2011 (Given - Provid er: Jaimie Martinez RN) 0822 (Given - Provider: Sanjuana Solomon RN )1242 ([facility] Hold - Provider: Admin Adt - Reason: Transfer to a Procedural area)1347 ([facility] Unhold - Provider: Admin Adt)1349 ([facility] [facility] Hold - Provider: Admin Adt - Reason: Transfer to a Procedural area) 0901 (Given - Provider: Sanjuana Solomon, MARLEY ) 20 mg, Oral, 2 TIMES DAILY, First dose ( after last modification) on Sun01/07/20 at 2100, Until Discontinued, Routine 1640 ([facility] Unhold - Provider: Admin Adt)2114 (Given - Provider: Olu Hernandez RN) gabapentin (Neurontin) capsule 300 mg 11 40 (Given - Provider: Sanjuana Solomon, MARLEY)1242 ([facility] Hold - Provider: Admin Adt - Reason: Transfer to a Procedural area)1347 ([facility] Unhold - Provider: Admin Adt)1349 ([facility] Hold - Provider: Admin Adt - Reason: Transfer to a Procedural area) 0901 (Given - Provider: Sanjuana Solomon, RN)1603 (Given - Provider: Sanjuana Solomon, MARLEY) 300 mg, Oral, 3 TIMES DAILY, First dose on Sonal 01/08/20 at 1015, Until Discontinued, Routine 1500 (Automatically Held - P rovider: Admin Adt)1640 ([facility] Unhold - Provider: Admin Adt)2113 (Given - Provider: Olu Hernandez RN) lidocaine (LIDODERM) 5 % patch 3 patch(Linked Group 1) 1141 (Patch Applied - Provider: Sanjuana Solomon RN)1242 ([facility] Hold - Provider: Admin Adt - Reason: Transfer to a Procedural area)1347 ([facility] Unhold - Provider: Admin Adt)1349 ([facility] Hold - Provider: Admin Adt - Reason: Transfer to a Procedural area) 1316 (Patch Applied - Provider: Sanjuana Solomon RN) 3 patch, Transdermal, EVERY 24 HOURS, Fi rst dose on Sonal 01/08/20 at 1015, Until Discontinued, Apply patch(es) for 12 hours, and then remove for 12 hours, Routine 1640 ([facility] Unhold - Provider: Admin Adt) lidocaine (LIDODERM) patch REMOVAL(Linked Group 1) 1242 ([facility] Hold - Provider: Admin Adt - Reason: Transfer to a Procedural area)1347 ([facility] Unhold - Provider: Admin Adt)1349 ([facility] Hold - Provider: Admin Adt - Reason: Transfer to a Procedural area)1640 ([facility] Unhold - Provider: Admin Adt) Transdermal, EVERY 24 HOURS, First dose on Sonal 01/08/20 at 2200, Until Discontinued, Remove lidocaine 5 %(700 mg/patch) patch 2200 (Patch Removed - Provider: Olu Hernandez, MARLEY) polyethylene glycol (Miralax) packet 17 g 0900 (Not Gi matt - Provider: Frances Douglas RN - Reason: Patient/family refused)2010 (Given - Provider: Jaimie Martinez RN) 0831 (Not Given - Provider: Sanjuana Solomon RN - Reason: Order parameters not met)1242 ([facility] Hold - Provider: Admin Adt - Reason: Transfer to a Procedural area)1347 ([facility] Unhold - Provider: Admin Adt) 0901 (Given - Provider: Sanjuana Solomon RN) 17 g, Oral, 2 TIMES DAILY, First dose on Sun01/06/20 at 2315, Until Discontinued, Routine 1349 ([facility] Hold - Provider: A dmin Adt - Reason: Transfer to a Procedural area)1640 ([facility] Unhold - Provider: Admin Adt)2113 (Given - Provider: Olu Hernandez RN) senna-docusate (Pericolace) 8.6-50 mg per tablet 2 tab let 0900 (Not Given - Provider: Frances Douglas RN - Reason: Patient/family refused)2010 (Given - Provider: Jaimie Martinez, MARLEY) 0822 (Given - Provider: Sanjuana Solomon RN )1242 ([facility] Hold - Provider: Admin Adt - Reason: Transfer to a Procedural area)1347 ([facility] Unhold - Provider: Admin Adt)1349 ([facility] Hold - Provider: Admin Adt - Reason: Transfer to a Procedural area) 0901 (Given - Provider: Sanjuana Solomon RN ) 2 tablet, Oral, 2 TIMES DAILY, First dos e on Sun01/06/20 at 2315, Until Discontinued, Routine 1640 ([facility] Unhold - Provider: Admin Adt)2113 (Given - Provider: Olu Hernandez RN) sodium chloride 0.9 % (flush) flush 5 mL 0951 (Given - Provider: Frances Douglas RN)2100 (Due) 0830 (Given - Provider: Sanjuana Solomon RN )1242 ([facility] Hold - Provider: Admin Adt - Reason: Transfer to a Procedural area)1347 ([facility] Unhold - Provider: Admin Adt)1349 ([facility] Hold - Provider: Admin Adt - Reason: Transfer to a Procedural area) 0900 (Given - Provider: Sanjuana Solomon RN ) 5 mL, Intravenous, 2 TIMES DAILY, First dose on Sun01/06/20 at 2315, Until Discontinued, Routine 1640 ([facility] Unhold - Provider: Admin Adt)2113 (Given - Provider: Olu Hernandez RN) Continuous Medication Order 01/07/2020 01/08/2020 01/09/2020 lactated ringers infusion 1021 (New Bag - Provider: Kerri Diaz RN) 0021 (New Bag - Provider: Jaimie Martinez RN)0354 (Stopped - Provider: Jaimie Martinez, MARLEY - Comment: Per pt request)1242 ([facility] Hold - Provider: Admin Adt - Reason: Transfer to a Procedural area)1347 ([facility] Unhold - Provider: Admin Adt) 0810 (New Bag - Provider: Es Tamayo, RN) 75 mL/hr, at 75 mL/hr, Intravenous, CONT INUOUS, Starting 01/06/20 at 1709, Until Sun01/09/20 at 1854 1349 ([facility] Hold - Provider: A dmin Adt - Reason: Transfer to a Procedural area)1519 ([facility] Unhold - Provider: Afua Ramachandran, MARLEY) PRN Medication Order 01/07/2020 01/08/2020 01/09/2020 cyclobenzaprine (Flexeril) tablet 10 mg 0047 (Given - Provider: Jaimie Martinez, MARLEY)0823 (Given - Provider: Sanjuana Solomon, MARLEY)1242 ([facility] Hold - Provider: Admin Adt - Reason: Transfer to a Procedural area)1347 ([facility] Unhold - Provider: Admin Adt) 0901 (Given - Provider: Sanjuana Solomon, MARLEY )1315 (Given - Provider: Sanjuana Solomon, MARLEY) 10 mg, Oral, 3 TIMES DAILY PRN, Starting Sonal 01/08/20 at 0027, Until Sun01/09/20 at 1854, Muscle spasms, Routine 1349 ([facility] - Provi qamar: Admin Adt - Reason: Transfer to a Procedural area)1532 ([facility] Unhold - Provider: Afua Ramachandran, MARLEY) Dextromethorphan HBr 5 mg/5 mL oral syrup 15 mg 0350 (Given - Provider: Jaimie Martinez, MARLEY)1242 ([facility] Hold - Provider: Admin Adt - Reason: Transfer to a Procedural area)1347 ([facility] Unhold - Provider: Admin Adt)1349 ([facility] Hold - Provider: Admin Adt - Reason: Transfer to a Procedural area) 15 mg, Oral, EVERY 4 HOURS PRN, Starting Sonal 01/08/20 at 0316, Until 01/09/20 at 1854, Cough, For resetting opioid receptors, give with dilaudid., Routine 1640 ([facility] Unhold - Provider: Admin Adt) fentaNYL (PF) 50mcg/mL injection (CANCELED) 1248 (Given - Provider: Mirian Martinez, MARLEY) 50 mcg, Intravenous, EVERY 5 MIN PRN, St arting Sonal 01/08/20 at 1243, Until Sonal 01/08/20 at 1609, Pain, or prior to injection of local anesthetic., Hold for respiratory rate less than 8 breaths per minute. (maximum dose 200 mcg), Day of Surgery (Day of Procedure), Ro utine HYDROmorphone (DILAUDID) injection 0.4 mg (COMPLETED) 101 (Given - Provider: Lily Oakley, MARLEY) 0.4 mg, Intravenous, ONCE PRN, 1 dose, S tarting 01/07/20 at 0047, Until 01/07/20 at 0102, Pain, For pain not controlled with current medications, Routine HYDROmorphone (DILAUDID) injection 0.4 mg (COMPLETED) 1817 (Given - Provider: Frances Douglas RN) 0.4 mg, Intravenous, ONCE PRN, 1 dose, S tarting 01/07/20 at 1801, Until 01/07/20 at 1818, Pain, For pain not controlled with current medications, Routine HYDROmorphone (DILAUDID) injection 0.4 mg (COMPLETED) 2246 (Given - Provider: Jaimie Martinez RN) 0.4 mg, Intravenous, ONCE PRN, 1 dose, S tarting 01/07/20 at 2205, Until 01/07/20 at 2247, Pain, For pain not controlled with current medications, Routine HYDROmorphone (DILAUDID) injection 0.4 mg (COMPLETED) 335 (Given - Provider: Jaimie Martinez RN) 0.4 mg, Intravenous, ONCE PRN, 1 dose, S tarting Sonal 01/08/20 at 0317, Until Sonal 01/08/20 at 0336, Pain, For pain not controlled with current medications, Routine HYDROmorphone (DILAUDID) injection 0.5 mg (COMPLETED) 001 (Given - Provider: Jaimie Martinez RN) 0.5 mg, Intravenous, ONCE PRN, 1 dose, S tarting 01/07/20 at 2359, Until Sonal 01/08/20 at 0018, Pain, For pain not controlled with current medications, Routine HYDROmorphone (DILAUDID) injection 0.5 mg 1242 ([facility] Hold - Provider: Admin Adt - Reason: Transfer to a Procedural area)1347 ([facility] Unhold - Provider: Admin Adt)1349 ([facility] Hold - Provider: Admin Adt - Reason: Transfer to a Procedural area)1640 ([facility] Unhold - Provider: Admin Adt) 0.5 mg, Intravenous, ONCE PRN, 1 dose, S tarting Sonal 01/08/20 at 0818, Until Sun01/09/20 at 1854, Pain, For pain not controlled with current medications, Routine HYDROmorphone (Dilaudid) tablet 2 mg(Linked Group 2) 0 853 (Given - Provider: Frances Douglas RN)0950 (Given - Provider: Frances Douglas RN)1448 (See Alternative - Provider: Frances Douglas RN)2012 (See Alternative - Provider: Jaimie Martinez RN) 0020 (See Alternative - Provider: Yan Martinez RN)0431 (See Alternative - Provider: Jaimie Martinez, MARLEY)0823 (See Alternative - Provider: Sanjuana Solomon RN)1242 ([facility] Hold - Provider: Admin Adt - Reason: Transfer to a Procedural area) 0545 (See Alternative - Provider: Elizabeth Hernandez, MARLEY)1032 (See Alternative - Provider: Es Tamayo, MARLEY) 2 mg, Oral, EVERY 4 HOURS PRN, Starting Sun01/07/20 at 0806, Until Sun01/09/20 at 1854, Pain, for mild pain (1-3), May give an additional 2 mg once if pain not relieved in 30-60 minutes., Routine 1347 ([facility] Unhold - Provider: Admin Adt)1349 ([facility] Hold - Provider: Admin Adt - Reason: Transfer to a Procedural area)1519 ([facility] Unhold - Provider: Afua Ramachandran RN)2233 (See Alternative - Provider: Olu Hernandez RN) HYDROmorphone (Dilaudid) tablet 4 mg(Linked Group 2) 0 853 (See Alternative - Provider: Frances Dogulas RN)0950 (See Alternative - Provider: Frances Douglas RN)1448 (Given - Provider: Frances Douglas RN)2011 (See Alternative - Provider: Jaimie Martinez RN) 0020 (See Alternative - Provider: Yan Martinez RN)0431 (See Alternative - Provider: Jaimie Martinez, MARLEY)0823 (See Alternative - Provider: Sanjuana Solomon RN)1242 ([facility] Hold - Provider: Admin Adt - Reason: Transfer to a Procedural area) 0545 (See Alternative - Provider: Elizabeth Hernandez RN)1032 (See Alternative - Provider: Es Tamayo RN) 4 mg, Oral, EVERY 4 HOURS PRN, Starting Sun01/07/20 at 0806, Until Sun01/09/20 at 1854, Pain, for moderate pain (4-6), May give an additional 2 mg once if pain not relieved in 30-60 minutes., Routine 1347 ([facility] Un old - Provider: Admin Adt)1349 ([facility] Hold - Provider: Admin Adt - Reason: Transfer to a Procedural area)1519 ([facility] Unhold - Provider: Afua Ramachandran RN)2233 (See Alternative - Provider: Olu Hernandez RN) HYDROmorphone (Dilaudid) tablet 6 mg(Linked Group 2) 0 853 (See Alternative - Provider: Frances Douglas RN)0950 (See Alternative - Provider: Frances Douglas RN)1448 (See Alternative - Provider: Frances Douglas RN)2011 (Given - Provider: Jaimie Martinez RN) 0020 (Given - Provider: Jaimie lyon RN)0431 (Given - Provider: Jaimie Martinez, MARLEY)0823 (Given - Provider: Sanjuana Solomon RN)1242 ([facility] Hold - Provider: Admin Adt - Reason: Transfer to a Proc edural area) 0545 (Given - Provider: Olu López RN)1032 (Given - Provider: Es Tamayo RN) 6 mg, Oral, EVERY 4 HOURS PRN, Starting Sun01/07/20 at 0806, Until Sun01/09/20 at 1854, Pain, for severe pain (7-10), May give an additional 2 mg once if pain not relieved in 30-60 minutes., Routine 1347 ([facility] Unho ld - Provider: Admin Adt)1349 ([facility] Hold - Provider: Admin Adt - Reason: Transfer to a Procedural area)1519 ([facility] Unhold - Provider: Afua Ramachandran, RN)2233 (Given - Provider: Olu Hernandez RN) lidocaine (XYLOCAINE) 10 mg/mL (1 %) injection 3 mg 1242 ([facility] Hold - Provider: Admin Adt - Reason: Transfer to a Procedural area)1347 ([facility] Unhold - Provider: Admin Adt)1349 ([facility] Hold - Provider: Admin Adt - Reason: Transfer to a Procedural area)1640 ([facility] Unhold - Provider: Admin Adt) 3 mg (0.3 mL), Subcutaneous, ONCE PRN, 1 dose, Starting Sun01/06/20 at 2249, Until Sun01/09/20 at 1854, for discomfort with PIV insertion, Routine LORazepam (Ativan) tablet 0.5 mg (COMPLETED) 010 (Giv en - Provider: Lily Oakley, MARLEY) 0.5 mg, Oral, ONCE PRN, 1 dose, Starting Sun01/07/20 at 0047, Until Sun01/07/20 at 0102, Anxiety, Routine midazolam (PF) (VERSED) injection 1 mg (CANCELED) 1248 (Given - Provider: Mirian Martinez, MARLEY)1253 (Given - Provider: Mirian Martinez, MARLEY) 1 mg, Intravenous, EVERY 5 MIN PRN, Star ting Sonal 01/08/20 at 1243, Until Sonal 01/08/20 at 1609, Sleep, or prior to injection of local anesthetic, Hold for delirium/agitation. (Maximum dose 5 mg)., Day of Surgery (Day of Procedure), Routine ondansetron (ZOFRAN) injection 4 mg 1242 ([facility] Hold - Provider: Admin Adt - Reason: Transfer to a Procedural area)1347 ([facility] Unhold - Provider: Admin Adt)1349 ([facility] Hold - Provider: Admin Adt - Reason: Transfer to a Procedural area)1640 ([facility] Unhold - Provider: Admin Adt) 4 mg, Intravenous, EVERY 8 HOURS PRN, St arting Sun01/06/20 at 2249, Until Sun01/09/20 at 1854, Nausea, If multiple antiemetics are ordered, use ondansetron first, prochlorperazine second, metoclopramide third. oxyCODONE (Roxicodone) tablet 15 mg (CANCELED) 0339 (G iven - Provider: Ad South RN) 15 mg, Oral, EVERY 4 HOURS PRN, Starting Sun01/06/20 at 2249, Until Sun01/07/20 at 0808, Pain, severe pain (7-10), For severe pain (7-10). Do not exceed 15 mg in 4 hours. If pain not relieved, call provider., Routine sodium chloride 0.9 % (flush) flush 5-20 mL 1242 ([facility] Hold - Provider: Admin Adt - Reason: Transfer to a Procedural area)1347 ([facility] Unhold - Provider: Admin Adt)1349 ([facility] Hold - Provider: Admin Adt - Reason: Transfer to a Procedural area)1640 ([facility] Unhold - Provider: Admin Adt) 5-20 mL, Intravenous, EVERY 1 MIN PRN, S tarting Sun01/06/20 at 2249, Until Sun01/09/20 at 1854, flush, Flush pertains to all indwelling lines. Flush per protocol found in the job aid using the link provided on this medication record., Routine vancomycin (VANCOCIN) injection (CANCELED) 1419 (Given - Provider: Yolanda Still MD) ONCE PRN, Starting Sun01/08/20 at 1419, Until Sun01/08/20 at 2047, Intra- Operative (Intra-Procedure), Routine Linked Groups Order Group 1: lidocaine (LIDODERM) 5 % patch 3 patchJump to med 3 patch, Transdermal, EVERY 24 HOURS, Fi rst dose on Sun01/08/20 at 1015, Until Discontinued
Apply patch(es) for 12 hours, and then remove for 12 hours
Routine And lidocaine (LIDODERM) patch REMOVALJump to med Transdermal, EVERY 24 HOURS, First dose on Sun01/08/20 at 2200, Until Discontinued
Remove lidocaine 5 %(700 mg/patch) patch
Group 2: HYDROmorphone (Dilaudid) tablet 2 mgJump to med 2 mg, Oral, EVERY 4 HOURS PRN, Starting Sun01/07/20 at 0806, Until Sun01/09/20 at 1854, Pain, for mild pain (1-3)
May give an additional 2 mg once if pain not relieved in 30-60 minutes.
Routine Or HYDROmorphone (Dilaudid) tablet 4 mgJump to med 4 mg, Oral, EVERY 4 HOURS PRN, Starting Sun01/07/20 at 0806, Until Sun01/09/20 at 1854, Pain, for moderate pain (4-6)
May give an additional 2 mg once if pain not relieved in 30-60 minutes.
Routine Or HYDROmorphone (Dilaudid) tablet 6 mgJump to med 6 mg, Oral, EVERY 4 HOURS PRN, Starting Sun01/07/20 at 0806, Until Sun01/09/20 at 1854, Pain, for severe pain (7-10)
May give an additional 2 mg once if pain not relieved in 30-60 minutes.
Routine documented in this encounter Care Teams Housing Manager Relationship Specialty Start Date End Date April Cummins APRN PCP - General Internal Medicine 01/06/20 05/20/[address] [place] [address] documented as of this encounter
--- OUTSIDE RECORDS SUMMARY | 2022-02-15 02:27 | XMS_ITS | Encounter Summary ---
:1960 Author Organization [facility] [place] [address] Care Team Providers Name Role Phone April Cummins APRN Primary Care Provider Encounter Details Date Type Department Care Team Description 04/17/2019 Hospital Encounter Ultrasound at [facility] Radha Harvey, History of nephrolithiasis; [facility] KALE Riley Renal cyst, acquired Drive [facility] [address] UROLOG[address] DEPT[address] [phone] [place] [address] Social History Tobacco Use Types Packs/Day Years [...] Sig Dispensed Refills Start Date End Date b complex vitamins Take 1 capsule by mouth daily. With 0 Capsule folic acid B-1,2,3,5,12 Biotin acetylcysteine (NAC ORAL) Take by mouth. 0 GLUTATHIONE ORAL Take by mouth 0 daily. IODINE ORAL Take 2.5 mg by 0 mouth daily. FLUoxetine (PROZAC) 10 mg Take 10 mg by mouth 0 Tablet 3 times daily. [id number] Take 3 capsules by 90 capsule 3 02/2504/29/2019 therm. (VISBIOME) 112.5 mouth daily. billion cell CapsuleIndications: Small intestinal bacterial overgrowth, Irritable bowel syndrome with diarrhea Ciclesonide (OMNARIS) 50 2 sprays each 12.5 g 0 02/08/20 19 09/01/2019 mcg [place], Non-Aerosol nostril BID lactobacillus rhamnosus, Take 1 capsule by 0 01/09/2020 GG, (CULTURELLE) 10 mouth daily. billion cell Capsule documented as of this encounter Plan of Treatment Upcoming Encounters Date Type Specialty Care Team Description 04/03/2022 TH Visit (TeleHealth) Neurology Pippa Jc MD [facility] [address], [place] [address] (Wo rk) Scheduled Procedures Name Priority Associated Diagnoses Date/Time COLONOSCOPY, DIAGNOSTIC Encounter for colorectal cancer screening documented as of this encounter Procedures Procedure Name Priority Date/Time Associated Comments Diagnosis US RETROPERITONEAL Routine 04/17/2019 1:24 History of Resul ts for this COMPLETE PM EDT nephrolithiasis procedure are in Renal cyst, the results acquired section. documented in this encounter Results US Retroperitoneal Complete (04/17/2019 1:24 PM EDT) Anatomical Region Laterality Modality Abdomen Ultrasound Specimen (Source) Anatomical Collection Method Collection Time Re ceived Time Location / / Volume Laterality 04/17/2019 1:20 PM EDT Impressions 04/17/2019 3:26 PM EDT 1. ??Simple 0.9 cm renal cyst within th e inferior pole of the left kidney is unchanged as compared with CT abdomen p harpreet dated 02/08/2018. No additional follow-up is recommended. 2. ??During initial scanning there was thought to be an additional 3.4 cm cyst identified in the superior pole the lef t kidney, which upon further evaluation is consistent with a normal renal calyx . 3. ??No hydronephrosis or nephrocalcino sis. Normal size and echotexture of the kidneys. 4. ??A 1.9 cm uterine fibroid impresses upon the posteroinferior bladder, which is otherwise normal. Findings were communicated to ordering provider Dr. Clay Garcia by Dr. Kike Pace at 2:50pm. I have personally reviewed the image(s) and the residents interpretation and agree with the findings, Adela Sylvester at 04/17/2019 3:17 PM Thank you for letting us participate in the care of this patient. For questions regarding this report, please contact t kristy number below. Electronically signed by: Adela Sylvester [facility] ([phone]), at 04/17/2019 3: 17 PM ? Adela Sylvester, Staff Physician Electronically Signed Final Report ?? 03:25 pm Narrative 04/17/2019 3:26 PM EDT Renal ?(Signed Final 04/17/2019 03:25 pm) PATIENT INFO: ID #: ? [id number] ?: ??[birth year] (58 yrs) Name: ? XAVIER DANIELS CASE ?Visit Date: 04/17/2019 01:20 pm PERFORMED BY: Performed By: ? Valeriy Leyva RDMS Attending: ?Higinio GARNER, Adela Soriano Resident: ? Sanjeev GARNER, Kike Betancourt Referred By: ?CLAY Centeno Location: ? [place] SERVICE(S) PROVIDED: ??URETRO - Retroperitoneal Complete - I [id number] ? [id number] INDICATIONS: ??hx nephrolithiasis and renal cyst-? c km COMPARISON: Ultrasound: 02/07/19, CT: 02/08/18 RIGHT KIDNEY: Size (cm) ?L: ??10.6 Cortical Thickness: ?Normal Cortical Echogenicity: ?? Normal Hydronephrosis: ?No sonogr aphic evidence Comment: ?No renal calculi seen. LEFT KIDNEY: Size (cm) ?L: ??9.6 Cortical Thickness: ?Normal Cortical Echogenicity: ?? Normal Hydronephrosis: ?No sonogr aphic evidence Comment: ?Simple cyst visualized in the upper pole measuring ? 2.5 x 2.1 x 3.4 cm. N o renal No renal calculi seen. URINARY BLADDER: Pre-void (cm) ? L: ??11.3 ?A P: ??7.8 ? TV: ??10.3 Vol (ml): ?475.3 Comment: ?Partially distended, norm al contour ADDITIONAL FINDINGS: Incidental finding of an anterior fibro id of the uterus measuirng 1.8 x 1.9 x 1.9. Procedure Note Adela Sylvester MD - 04/17/2019Formlona kelley of this note might be different from the original. Renal (Sig ronak Final 04/17/2019 03:25 pm) PATIENT INFO: ID #: [id number] : [birth year] (58 yrs) Name: XAVIER DANIELS CASE Visit Date: 04/17/2019 01:20 pm PERFORMED BY: Performed By: Jose L Leyva RDMS Attending: Adela Sylvester MD Resident: Kike Pace MD Referred By: CLAY HARVEY Location: [place] SERVICE(S) PROVIDED: URETRO - Retroperitoneal Complete - [id number] INDICATIONS: hx nephrolithiasis and renal cyst-? shamar COMPARISON: Ultrasound: 02/07/19, CT: 02/08/18 RIGHT KIDNEY: Size (cm) L: 10.6 Cortical Thickness: Normal Cortical Echogenicity: Normal Hydronephrosis: No sonographic evidence Comment: No renal calculi seen. LEFT KIDNEY: Size (cm) L: 9.6 Cortical Thickness: Normal Cortical Echogenicity: Normal Hydronephrosis: No sonographic evidence Comment: Simple cyst visualized in t he upper pole measuring 2.5 x 2.1 x 3.4 cm. No josé miguel l No renal calculi seen. URINARY BLADDER: Pre-void (cm) L: 11.3 AP: 7. 8 TV: 10.3 Vol (ml): 475.3 Comment: Partially distended, normal contour ADDITIONAL FINDINGS: Incidental finding of an anterior fibro id of the uterus measuirng 1.8 x 1.9 x 1.9. IMPRESSION 1. Simple 0.9 cm renal cyst within the inferior pole of the left kidney is unchanged as compared with CT abdomen p harpreet dated 02/08/2018. No additional follow-up is recommended. 2. During initial scanning there was t hought to be an additional 3.4 cm cyst identified in the superior pole the lef t kidney, which upon further evaluation is consistent with a normal renal calyx . 3. No hydronephrosis or nephrocalcinos is. Normal size and echotexture of the kidneys. 4. A 1.9 cm uterine fibroid impresses upon the posteroinferior bladder, which is otherwise normal. Findings were communicated to ordering provider Dr. Clay Garcia by Dr. Kike Pace at 2:50pm. I have personally reviewed the image(s) and the residents interpretation and agree with the findings, Adela Sylvester at 04/17/2019 3:17 PM Thank you for letting us participate in the care of this patient. For questions regarding this report, please contact t he number below. Electronically signed by: Adela Sylvester [facility] ([phone]), at 04/17/2019 3: 17 PM Adela Sylvester, [facility] Electronically Signed Final Report 03:25 pm Clay Harvey APRN IMG US GEN ORDERABLES documented in this encounter Visit Diagnoses Diagnosis History of nephrolithiasis Personal history of urinary calculi Renal cyst, acquired Acquired cyst of kidney documented in this encounter Care Teams Tea Leaf Reader Relationship Specialty Start Date End Date April Cummins APRN PCP - General Internal Medicine 11/06/18 11/19/19 [address] [place] [address] documented as of this encounter
--- OUTSIDE RECORDS SUMMARY | 2022-02-15 02:27 | XMS_ITS | Encounter Summary ---
:1960 Author Organization [facility] [place] [address] Care Team Providers Name Role Phone PlacidoApril APRN Primary Care Provider Encounter Details Date Type Department Care Team Description 11/05/2019 Telephone Dermatology at [facility] Edmond Howell MD [address] [facility] WILI [place] [address] [place] [address]-DERMATOLOGY [phone] [place], [place] [address] (Wo rk) Social History Tobacco [...] this encounter Miscellaneous Notes Telephone Encounter - Rhianna Garber - 11/05/2019 10:18 AM EST Called and left a message for Kalyn Burgos requesting a call back to see if she wanted to come infor an appointment with Dr Howell tomorrow, 11/06 at 9:00. documented in this encounter Plan of Treatment Upcoming Encounters Date Type Specialty Care Team Description 04/03/2022 TH Visit (TeleHealth) Neurology Pippa Jc MD [facility] [address] [place] [address] (Wo rk) Scheduled Procedures Name Priority Associated Diagnoses Date/Time COLONOSCOPY, DIAGNOSTIC Encounter for colorectal cancer screening documented as of this encounter Visit Diagnoses Not on filedocumented in this encounter Care Teams Energy Economist Relationship Specialty Start Date End Date April Cummins APRN PCP - General Internal Medicine 11/06/18 11/19/[address] [place] [address] documented as of this encounter
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
--- OUTSIDE RECORDS SUMMARY | 2022-02-15 02:27 | XMS_ITS | Encounter Summary ---
:1960 [place] [address] Care Team Providers Name Role Phone April Cummins APRN Primary Care Provider Encounter Details Date Type Department Care Team Description 01/06/2020 Ancillary Procedure [place] [address] Social History Tobacco Use Types Packs/Day [...] TH Visit (TeleHealth) Neurology Pippa Jc MD [place], [place] [address] (Wo rk) Scheduled Procedures Name Priority Associated Diagnoses Date/Time COLONOSCOPY, DIAGNOSTIC Encounter for colorectal cancer screening documented as of this encounter Procedures Procedure Name Priority Date/Time Associated Diagnosis Comme nts FILM LIBRARY STAT 01/06/2020 3:18 PM Results for this STORAGE ONLY DX EST procedure ar e in PELVIS the results section. documented in this encounter Results Film Library- Storage Only DX Pelvis (01/06/2020 3:18 PM EST) Specimen (Source) Anatomical Location Collection Method / Collectio n Time Received Time / Laterality Volume Narrative RAD - 01/06/2020 3:18 PM EST This exam is auto-finalizing. It's purpo se is for storage only. Adriana Nicholas MD IMG FILM LIBRARY ORDERABLES Performing Organization Address City/State/ZIP Code Phon e Number [place], [place] documented in this encounter Visit Diagnoses Not on filedocumented in this encounter Care Teams Health Inspector Food Relationship Specialty Start Date End Date April Cummins APRN PCP - General Internal Medicine 01/06/20 05/20/[address] [place] [address] documented as of this encounter
--- OUTSIDE RECORDS SUMMARY | 2022-02-15 02:27 | XMS_ITS | Encounter Summary ---
:1960 Author Organization [facility] [place] [address] Care Team Providers Name Role Phone April Cummins APRN Primary Care Provider Reason for Visit Reason Comments Follow-up Encounter Details Date Type Department Care Team Description 04/29/2019 Office Visit Gastroenterology at [facility] Miky Guerra; [facility] Arleth Velasquez APRN Small intestinal bacterial overgrowth; [place] [address] [facility] Irritable bowel syndrome wit h diarrhea [phone] [place] [address] Social History Tobacco Use Types Packs/Day Years [...] Sign Reading Time Taken Comments Blood Pressure 106/63 04/29/2019 2:36 PM EDT Pulse 60 04/29/2019 2:36 PM EDT Temperature - - Respiratory Rate - - Oxygen Saturation - - Inhaled Oxygen Concentration - - Weight 57.2 kg (126 lb 3.2 oz) 04/29/2019 2:36 PM EDT Height 167.6 cm (5' 6) 04/29/2019 2:36 PM EDT Body Mass Index 20.37 04/29/2019 2:36 PM EDT documented in this encounter Patient Instructions Patient InstructionsSieglingerBeth APRN - 04/29/2019 2:30 PM EDT 1. Metronidazole 500mg twice daily x 14 days. DO NOT DRINK any alcohol while treating this medication 2. VSL #3 or another probiotic as needed 3. Magnesium citrate x 1 or magnesium 4. Follow up in one year documented in this encounter Progress Notes Beth Guerra APRN - 04/29/2019 2:30 PM EDT ALUMINUM POURER: Beth Guerra APRN PCP: April Cummins APRN REQUESTING PROVIDER: April Cummins APRN REASON FOR VISIT This is a 58 y.o. female with a history significant for DJD. She is returning to me today in followup for IBS GI PROBLEM LIST 1. IBS- Diarrhea predominant --COLONOSCOPY 04/2017; normal except for TA *Stool culture/O&P normal/negative *Fecal calprotectin never was completed. *KUB 01/23/18 question of ileus versus obstructive process *CT scan abd/pelvis 02/08/18 no sign of obstruction INTERVAL HISTORY- 04/29/19 Was doing well in terms of symptoms. Has a large amount of gas. Cow cat squishy stuff. Was unable to get rifaximin or VSL #[address] Reyes. She has been sent to an pantograph setter. Was told she needs to go a fibre technologist. INTERVAL HISTORY- 01/23/18 Completed rifaximin. Immediately noticed a difference. Stools started to improve. Was also takingsenna with rifaximin. A few days later her stools stopped improving. Started taking vitamin b12. Just started adding glutathione. LUQ abdominal pain is constant. Excessive gas and bloating. Has started squatting for the bathroom. Has been taking loperamide. This alleviates symptoms. Constant diarrhea. Endorses that she had a parasite years ago. Hasn't done pelvic floor PT. Had an ECHO done. Showed some inflammation around her house. HPI COMMENTS History of gangrenous appendicitis age 16. This is when her IBS symptoms first started. Recently had a pyelonephritis. Was treated. Has been taking antibiotics more recently. She started a candidacleanse. Diarrhea has improved. Continues to have plop-like and thin stools. Moves her bowels over three times per day. Denies straining. Difficulty emptying. Denies blood and mucus in stool. Colonoscopy April 2017 was positive for a TA, otherwise normal. Bloating and gas after eating. Abdominal cramping and fecal urgency. Abdominal pain distributed in a band-like distribution. Sometimes radiating into her back. Denies nausea and vomiting. Denies reflux and regurgitation. Good appetite. Denies early satiety. Denies unintentional weight loss. No anemia, but she does take iron. Denies thyroid issues. Denies dysphagia, odynophagia, and globus. Denies chronic NSAID use. 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 Feels she has a candidal infection. Triggers include; turkey, ground beef, no carbs. Stress makes symptoms worse. Has somewhat adapted parts of GAPS diet. This didn't seem to help. Has also tried low-FODMAP diet. Probiotics, fiber, and intestinal repair formula. TTG/IgA was negative. ROS Notable for the gastrointestinal symptoms as described above. CONSTITUTIONAL: Denies anorexia, fever, or unintended weight change : See HPI. Denies dysuria, urinary incontinence, or dyspareunia. ALLERGIES Allergies Allergen Reactions ??? Milk Diarrhea ??? Tetracycline Nausea Only ??? Wheat Other (See Comments) Gastrointestinal distress CURRENT MEDICATIONS Medications reviewed and reconciled in e-DH Current Outpatient Medications: ??? Vsialprb9-Gkodeu4-Rpzof therm. (VISBIOME) 112.5 billion cell Capsule, Take 3 capsules by mouth daily., Disp: 90 capsule, Rfl: 3 ??? Ciclesonide (OMNARIS) 50 mcg [place], Non-Aerosol, 2 sprays each nostril BID, Disp: [...] mouth 3 times daily., Disp: , Rfl: MEDICAL HISTORY Past Medical History: Diagnosis Date ??? Anxiety ??? Depression ??? IBS (irritable bowel syndrome) ??? Nephrolithiasis ??? No known health problems ??? Sepsis due to urinary tract infection SURGICAL HISTORY Past Surgical History: Procedure Laterality Date ??? APPENDECTOMY ??? BACK SURGERY ??? SECTION ??? SHOULDER ARTHROSCOPY ??? TIBIA FRACTURE SURGERY ??? 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 . Has one son- . HABITS Denies tobacco use. Denies alcohol use. Denies using other substances. FAMILY HISTORY Denies family history of celiac disease, esophageal cancer, stomach cancer, colon cancer, pancreaticor liver issues, and IBD. PHYSICAL EXAM: Most Recent Vitals: 04/29/19 1436 BP: 106/63 Pulse: 60 Height: 167.6 cm (5' 6) Weight: 57.2 kg (126 lb 3.2 oz) Body mass index is 20.37 kg/m??. GENERAL: Healthy-appearing in no acute distress. Appears stated age. Appropriate weight for height. SKIN: No lesions, rashes, lumps, or angiomas on exposed skin. NEURO: Alert and oriented to person, place, time, and situation. Cranial nerves II-XII intact. PSYCH: Mood appropriate. Good eye contact. Normal interaction. Answers all questions appropriately. LABS: Lab Results Component Value Date WBC 3.4 (L) 02/03/2016 HGB 11.8 02/03/2016 HCT 33.6 (L) 02/03/2016 MCV 88.0 02/03/2016 PLATELET 206 02/03/2016 Lab Results Component Value Date NA 138 02/03/2016 K 3.9 02/03/2016 CL 99 02/03/2016 CO2 25 02/03/2016 BUN 11 02/03/2016 CREATININE 0.78 02/08/2018 GLUCOSE 91 02/03/2016 CALCIUM 9.1 02/03/2016 ASSESSMENT This is a very nice 58 year old female with a history significant for DJD who returns to me today infollow up. She was doing well in terms of her symptoms until over the past few months. She was evaluated by Dr. Reyes in February while I was away. She was unable to obtain the rifaximin and VSL #3 asprescribed due to insurance coverage. Recommend trial of metronidazole. We reviewed medication indications, administration, and side effects. Will also try prescribing VSL #3, although this seems difficult for patients to obtain currently. May also try a clean-out with magnesium. PLAN 1. Metronidazole 500mg twice daily x 14 days 2. VSL #3 or another probiotic as needed 3. Follow up in 6 months for persistent symptoms 4. Follow up in one year Patient agrees with the above plan. I did my best to answer her questions. Signed, Beth Guerra APRN 04/29/19 2:56 PM Section of Gastroenterology & Hepatology [facility] documented in this encounter Plan of Treatment Upcoming Encounters Date Type Specialty Care Team Description 04/03/2022 TH Visit (TeleHealth) Neurology Pippa Jc MD [facility] [address] [place] [address] (Wo rk) Scheduled Procedures Name Priority Associated Diagnoses Date/Time COLONOSCOPY, DIAGNOSTIC Encounter for colorectal cancer screening documented as of this encounter Visit Diagnoses Diagnosis Bloating Flatulence, eructation, and gas pain Small intestinal bacterial overgrowth Irritable bowel syndrome with diarrhea Irritable bowel syndrome documented in this encounter Care Teams Assistant Boiler Operator Relationship Specialty Start Date End Date April Cummins APRN PCP - General Internal Medicine 11/06/18 11/19/19 [address] [place] [address] documented as of this encounter
--- OUTSIDE RECORDS SUMMARY | 2022-02-15 02:27 | XMS_ITS | Encounter Summary ---
:1960 Author Organization [facility] [place] [address] Care Team Providers Name Role Phone Susan Elise ND Primary Care Provider Reason for Visit Consultation (Routine) - Specialty Diagnoses / Procedures Referred By Contact Refer red To Contact Dermatology Diagnoses Plantar April Mortensen, KALE [facility] Dermatology [address] [place] [address] [place] [phone] Fax: Referral ID Status Reason Start Date Expiration Date Visits V isits Requested Authorized [id number] Consult, Test 10/27/2019 10/26/2020 [facility] PCP Updated and/or Approved Encounter Details Date Type Department Care Team Description 11/20/2019 Office Visit Dermatology at [facility], Viral warts, unspecified type; Jarret Levine [address] [place] [address] [facility] [place], [place] [address] Social History Tobacco Use Types Packs/Day Years Used Date Never Smoker Smokeless Tobacco: Never Used Comments: Exposure to smoking in the [place] until the age of 16 Alcohol Use Standard Drinks/Week Comments No 0 (1 standard drink = 0.6 oz pure alcoho l) Sex Assigned at Date Recorded Not on file documented as of this encounter Progress Notes DanteEdmond R - 11/20/2019 4:00 PM EST Images from the original note were not included. DERMATOLOGY - NEW PATIENT NOTE Date of service: 11/20/2019 Kalyn Burgos : 1960, 59 y.o. Chief Complaint: spot check HPI: Kalyn Burgos is a 59 y.o. female referred by April Cummins with the following concerns: Painful spot between two toes on the left foot. Patient presents to the clinic today for evaluation of a concerning lesion. Patient understands thatthis is a [id number] clinic only and knows he/she needs to make a separate appointment for a full skin check or to have other areas checked. - Location: left foot between big and first toe, and another on her big toe - Present for: about 6 months - Symptoms: painful - Treatments: tried duct tape and several creams, no relief Relevant Skin History: - Okay to leave detailed message with results? 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 Ciclesonide (OMNARIS) 50 mcg [place], Non-Aerosol INSTILL TWO SPRAYS IN EACH NOSTRIL TWICE A DAY 12.5 g 0 ??? Rawzlffj4-Yqdeex0-Wrgxg therm. (VISBIOME) 112.5 billion cell Capsule Take 3 capsules by mouth daily. 90 capsule 3 ??? lactobacillus rhamnosus, GG, (CULTURELLE) 10 billion cell Capsule Take 1 capsule by mouth daily. ??? b complex vitamins Capsule Take 1 capsule by mouth daily. ??? acetylcysteine (NAC ORAL) Take by mouth. ??? GLUTATHIONE ORAL Take by mouth daily. ??? IODINE ORAL Take 2.5 mg by mouth daily. ??? FLUoxetine (PROZAC) 10 mg Tablet Take 10 mg by mouth 3 times daily. No current facility-administered medications for this visit. Allergies: Allergies Allergen Reactions ??? Milk Diarrhea ??? Tetracycline Nausea Only ??? Wheat Other (See Comments) Gastrointestinal distress Review of Systems: - General: Feels well. - Skin: No other skin concerns. Examination: - Constitutional: Patient was alert, well-appearing and in no noticeable distress. - Skin: Skin examination of the feet, was normal with the exception of the findings listed below. Genitalia not examined. - SUJATA Blake was present and on standby during my examination. Diagnosis/Skin findings/Assessment/Plan: #. Verruca Vulgaris Plantaris (Platar's wart). hyperkeratotic papule on the left plantar toe, pinpoint thrombosed capillaries appreciated on dermoscopy. - Discussed with the patient the viral etiology of warts, and the fact that our treatments such as LN2 aim to destroy the superficial part of the wart, but that we rely on the immune system to destroy the deeper portion. No one treatment is completely effective. We discussed treatment options including liquid nitrogen, magic wart cream (compounded katherine acid and 5-FU), cimetidine, cidofovir (3% compounded, 1 week on/1 week off), Aldara, and Gilma injections. - Joint decision made to pursue destruction by paring following by cryotherapy in combination with home salicylic acid plasters. - Over the counter Salicylic acid (Mediplast) plasters apply every 24 hrs and cover with Band-Aid ortape. - Nightly after showering or soaking, file wart with disposable emery board, Procedure Note: Procedure: Destruction of lesion(s) with cryotherapy. Number: 2 Location: as above Discussed procedure and expectations including risks (including risk of hypopigmentation) and benefits. Verbal consent obtained. Lesion pared with a #15 blade. Lesion then frozen with LN2, 15-30 secondthaw time, TWICE. There were no complications; the patient tolerated the procedure well. Post-procedure expectations and wound care were reviewed. #. Clavus/corn: On the left 2nd medial toe - Corns (clavi) are keratinous thickenings of the skin due to repeated friction or pressure to the area of the forefoot. They are typically secondary to faulty biomechanics of the foot and or ill fitting footwear. - Ensure properly fitted shoes and footwear - Instructed to purchase OTC orthotic insoles to redistribute the pressure over bony prominences. - Pare down the corn with a No. 15 blade, and remove the central core of the lesion - Instructed patient to soak corns in warm water and file down with an emery board or pumice stone. - Xxox-trw-tiryrkt salicylic acid creams or lotions (Compound W, Dr. Shah's [place] Removers) applieddaily for 4-6 weeks recommended RTC: In one month for follow-up Note initiated by SUJATA Blake. I, SUJATA Blake, have performed the documentation for this encounter in the presence of andacting as a scribe for Edmond Howell MD. I performed the services which were documented by the scribe, and I agree with the accuracy of the documentation in this encounter. Edmond Howell MD Reviewed and signed by Edmond Howell MD Resident in Dermatology [facility] Patient seen in conjunction with staff environmental conservation professor: Samuel Collins MD Section of Dermatology [facility] Carrie Collins MD - 11/20/2019 4:00 PM EST I directly supervised Dr. Howell during this office visit. Dr. Howell presented the history and physical exam to me. I then saw and examined this patient with Dr. Howell. We reviewed the history and pertinent details and I confirmed the physical findings. I agree with the details of the history and physical exam as documented in Dr. Howell's note. CARRIE COLLINS MD Staff Physician documented in this encounter Plan of Treatment Upcoming Encounters Date Type Specialty Care Team Description 04/03/2022 TH Visit (TeleHealth) Neurology Pippa Jc MD [facility] [place] [address] (Wo rk) Scheduled Procedures Name Priority Associated Diagnoses Date/Time COLONOSCOPY, DIAGNOSTIC Encounter for colorectal cancer screening documented as of this encounter Visit Diagnoses Diagnosis Viral warts, unspecified type [place] Corns and callosities documented in this encounter Care Teams Educational Advisor Relationship Specialty Start Date End Date Susan Elise ND PCP - General Naturopathic Medicine 11/20/19 01/05/20 documented as of this encounter
--- OUTSIDE RECORDS SUMMARY | 2022-02-15 02:27 | XMS_ITS | Encounter Summary ---
:1960 Author Organization [facility] [place] [address] Care Team Providers Name Role Phone April Cummins APRN Primary Care Provider Reason for Visit Reason Onset Date Comments Medication Refill 06/09/2019 Encounter Details Date Type Department Care Team Description 06/09/2019 [place] [facility] Small intestinal bacterial o vergrowth; [facility] Arleth Velasquez APRN Irritable [place] with [place] [address] [facility] [phone] GASTROENTEROLOGY [place], [place] [address] Social History Tobacco Use Types [...] TH Visit (TeleHealth) Neurology Pippa Jc MD [facility] er [place], [place] [address] (Wo rk) Scheduled Procedures Name Priority Associated Diagnoses Date/Time COLONOSCOPY, DIAGNOSTIC Encounter for colorectal cancer screening documented as of this encounter Visit Diagnoses Diagnosis Small intestinal bacterial overgrowth Irritable bowel syndrome with diarrhea Irritable bowel syndrome documented in this encounter Care Teams Electronics Processor Relationship Specialty Start Date End Date April Cummins APRN PCP - General Internal Medicine 01/13/[address] [place] [address] documented as of this encounter
--- OUTSIDE RECORDS SUMMARY | 2022-02-15 02:27 | XMS_ITS | Encounter Summary ---
:1960 [place] [address] Care Team Providers Name Role Phone April Cummins APRN Primary Care Provider Reason for Visit Reason Comments Leg Injury skiing accident Auth/Cert Specialty Diagnoses / Procedures Referred By Contact Refer red To Contact Diagnoses Tibia fracture Trauma Procedures ER IPI Admit Referral ID Status Reason Start Date Expiration Date Visits Requ ested Visits Authorized [id number] 1 1 Encounter Details Date Type Department Care Team Description 01/06/2020 Surgery Main Operating Room Yolanda Still MD APPLICATION OF A [facility] DR MABEL ANGULO SYSheree, [facility] ORTHOPAEDIC S URGERY EXTREMITY (WRVU 8.78) [address] [id number] [phone] Social History Tobacco Use Types Packs/Day Years [...] Sign Reading Time Taken Comments Blood Pressure 126/78 01/06/2020 8:45 PM EST Pulse 65 01/06/2020 8:45 PM EST Temperature 37.1 ??C (98.8 ??F) 01/06/2020 8:05 PM EST Respiratory Rate 17 01/06/2020 8:45 PM EST Oxygen Saturation 100% 01/06/2020 8:45 PM EST Inhaled Oxygen Concentration - - Weight 56.7 kg (125 lb) 01/06/2020 4:01 PM EST Height 165.1 cm (5' 5) 01/06/2020 4:01 PM EST Body Mass Index 20.8 01/06/2020 4:01 PM EST documented in this encounter Discharge Summaries Hetal Lambert PA - 01/09/2020 4:00 PM EST Discharge Summary Patient Name: Kalyn Darnell Case Patient Age: 59 y.o. Language: Moroccan Race: White Ethnicity: Not nor Admit date: 01/06/2020 Discharge date and time: 01/09/2020 Attending Physician: Yolanda Still MD Discharge Physician: Yolanda Still MD Follow-up Recommendations for Providers: See discharge instructions for additional details. Future Appointments Date Time Provider Department Center 01/23/2020 9:15 AM [facility] DX ROOM 3 Xray [facility] Rad 01/23/2020 10:20 AM Yolanda Still MD [facility]TH [facility]C [facility] 01/27/2020 2:00 PM Carrillo Rogel MD [facility] Inpatient Provider Contact Information: Yolanda Still MD Orthopedics: [phone] After hours and weekends, call [facility] Air Conditioning Manager, , and have the Orthopedic resident paged. [...] ago. The patient was subsequently transferred to [facility] where was noted that she had threatened [...] tear. Patient was instructed to continue wearing [place] brace. The patient was voiding spontaneously in [...] this report, please contact the number below. Pending Studies and Lab Data at Discharge: * No orders in the log * Transfusions: No Discharge Conditions/Prognosis: Stable, awake, and alert. Mobilizing as noted above, pain controlled on oral medications. Discharge to: Rehab [facility] [address] [place] [id number] Updated Allergies/ADRs: Allergies Allergen Reactions ??? Milk [...] 1 capsule Refills: 0 Ciclesonide 50 mcg [place] Commonly known as: Omnaris INSTILL TWO SPRAYS IN EACH NOSTRIL TWICE A DAY Quantity: 12.5 g Refills: 0 FLUoxetine 10 mg Tab Commonly known as: PROzac Take 10 mg by mouth 3 times daily. 10 mg Refills: 0 GLUTATHIONE ORAL Take by mouth daily. Refills: 0 IODINE ORAL Take 2.5 mg by mouth daily. 2.5 mg Refills: 0 Evgsxivq3-Ogmlby0-Yqhlj therm. 112.5 billion cell Cap Commonly known [...] leg. ROM of knee as tolerated in [place] brace at all times except for hygiene [...] bowel movement. You can also take an ouyg-gkl-anbbrjf medication, Miralax if needed to combat constipation. [...] or decrease wound sensitivity. Call your doctor ([phone]) if you develop: 1. Fever greater than [...] 1. You will have follow-up appointments at [facility] as indicated in Future Appointment and Orders. [...] Time Provider Department Center 01/23/2020 9:15 AM [facility] DX ROOM 3 MH Xray [facility] 01/23/2020 10:20 AM Yolanda Still MD [facility] 3C [facility] 01/27/2020 2:00 PM Carrillo Rogel MD [facility] Derm [facility] If you have questions or concerns: [...] Provider Department Dept Phone 01/23/2020 9:15 AM [facility] DX ROOM 3 XRay at [facility] Arrive at: [facility] [phone] Please go to [facility] ([place] Location). 01/23/2020 10:20 AM Yolanda Still MD Orthopaedics at [facility] Arrive at: [facility] [phone] 01/27/2020 2:00 PM Carrillo Rogel MD Dermatology at [facility] Arrive at: [facility] [address] [place] [address] Future Orders Complete By Expires XR Knee 1-2 Views Left (Generic) [57610 Custom] 01/14/2020 (Approximate) 07/15/2020 Process Instructions: Scheduling Instructions: Comments: Questions: Where will study be performed?: [facility] Radiology Portable exam?: Reason for exam and clinical history: S/p ex-fix Clinical information / shah questions: Stat read required?: Date of injury if applicable: Requested Time: XR Tibia Fibula Left (Generic) [48516 Custom] 01/14/2020 (Approximate) 07/15/2020 Process Instructions: Scheduling Instructions: Questions: Where will study be performed?: [facility] Radiology Portable exam?: Reason for exam and clinical history: s/p L ex-fix Clinical information / shah questions: Stat read required?: Date of injury if applicable: Requested Time: XR Tibia Fibula Left (Generic) [07584 Custom] 01/22/2020 (Approximate) 07/23/2020 Process Instructions: Scheduling Instructions: Questions: Where will study be performed?: [facility] Radiology Portable exam?: Reason for exam and clinical history: s/p ORIF L tibia fracture Clinical information / shah questions: Stat read required?: Date of injury if applicable: Requested Time: Primary Care Provider: April Cummins APRN [phone] Discharge References/Attachments None documented in this encounter Discharge Instructions Patient Hetal Mcmillan PA - 01/09/2020 3:52 PM EST Orthopedic Surgery Discharge Instructions 1. Left proximal tibia fracture s/p ORIF and partial ACL tear. Activity level: 1. You are Non-weight bearing on your Left leg. ROM of knee as tolerated in [place] brace at all times except for hygiene [...] bowel movement. You can also take an lozd-zjp-guastte medication, Miralax if needed to combat constipation. [...] or decrease wound sensitivity. Call your doctor ([phone]) if you develop: 1. Fever greater than [...] 1. You will have follow-up appointments at [facility] as indicated in Future Appointment and Orders. [...] Time Provider Department Center 01/23/2020 9:15 AM [facility] DX ROOM 3 MH Xray [facility] Rad 01/23/2020 10:20 AM Yolanda Still MD [facility]TH 3C [facility] 01/27/2020 2:00 PM Carrillo Rogel MD [facility] If you have questions or concerns: Sunday [...] SPRAYS IN 12.5 g 0 50 mcg [place], EACH NOSTRIL TWICE A Non-Aerosol DAY Heesunjm5-Gaysph4-Rtkbz Take 3 capsules by 90 capsule 3 [...] nerve block. Please page regional service at [phone] if any concerns for residual nerve block symptoms. Dennis Ronquillo MD 01/13/20 Seda Villavicencio - 01/09/2020 4:14 PM EST Office of Care Management(OCM)/Data Processing Consultant(RS) Patient Name: Kalyn Burgos : 1960 Patient has been offered a swing bed at [facility]. [facility] arranged for a 4:30 transport. Ambulance will need: Medicare ambulance form completed and signed (MD or Dietary Aide) Copy of patient demographics [place] [facility] DNR/DNI order, if active Please have MD call Dr. Cutler at [phone]: Please call Nursing Report to [phone], ask for aircraft technician. Info to accompany patient: Narcotic Prescriptions Copies of Medication Administration Records and IV sheets for past two weeks. Plan: Data Processing Consultant will be available to the patient and Dietary Aide for further assistance. Patient will be discharged to: [address] [address] Seda Villavicencio Data Processing Consultant Sanjuana Schafer RN - 01/09/2020 4:11 PM EST Patient discharged to [facility]. New paper Rx handed to patient. PIV removed. Patient left 2 West in via ambulance. Report called Hipolito at [facility]. [phone]. Activity level: 1. You are Non-weight bearing [...] Liaison Reviewed medical record, discussed with primary Dietary Aide, Ashley Conrad. Met with Kalyn Burgos to discuss swing level of care and provided specific information about [facility], which patient has been referred to for inpatient rehabilitation. Informed Kalyn Burgos of referral review process that occurs. Discussed discharge disposition post rehab. Answered patient's questions. Patient will be followed by primary corrections caseworker for discuss all choices and options Provided my contact number if any further questions regarding rehab or specific facility Will continue to follow along with patient's primary corrections caseworker. System Liaison will continue to assist with any discharge needs related to the above facility as needed. Karol Jeffers RN BSN CRRN System Liaison Dietary Aide Ashley Conrad RN - 01/09/2020 1:50 PM EST Based on discussions with the multi-disciplinary healthcare team, the patient would benefit from retirement level of care at discharge. ?? I have met with the patient/inbound customer service representative to discuss discharge planning needs. I have provided the [facility], Office of Care Management letter from the Construction Stonemason pertaining to rehab referrals. I have also provided a letter describing our affiliations within the [facility] and educated them about their right to choose where referrals are placed. ?? I reviewed the different levels of rehab including SNF, swing, acute and LTAC with the patient/inbound customer service representative. ?? The patient/inbound customer service representative has been provided a list of facilities within their preferred geographic area. ?? I have requested that the patient/inbound customer service representative provide at least three choices for referral. ?? The patient/inbound customer service representative have requested referrals to: 1. [facility] (Swing) ?? PHONE: [phone] FAX: [phone] 2. [facility] ([facility]) [address] [place] [address] ?? [phone] ? Expected date of discharge: 01/09/2020 Note routed to Data Processing Consultant who will communicate referrals to facilities and [...] to left knee ASSESSMENT / PLAN: Kalyn Burgos is a 59 y.o. female 1 Day Post-Op s/p ORIF L proximal tibia fracture. Stable on floor post-operatively. Will obtain MARS MRI of L knee to evaluate for ligamentous injury given laxity on exam under anesthesia. Plan to mobilize with PT/OT today. Cooper out this am once OOB. Activity: NWB LLE, knee ROM as tolerated DVT prophylaxis: Lovenox 40mg SQ/day for 30 days Closure: Nylons, remove 2-3 weeks Dressing: Mepilex x 7 days Antibiotics: Ancef x 24 hours Rasta Em MD 01/09/2020 Future Appointments Date Time Provider Department Center 01/23/2020 9:15 AM [facility] DX ROOM 3 MH Xray [facility] Rad 01/23/2020 10:20 AM Yolanda Still MD [facility]TH 3C [facility] 01/27/2020 2:00 PM Carrillo Rogel MD [facility] Associated attestation - Yolanda Still MD - 01/09/2020 9:01 AM EST Patient seen and examined. Agree with resident note. NWDg LLE. MRI to evaluate knee ligaments/posterolateral corner. [...] Left Pending result ASSESSMENT / PLAN: Kalyn Burgos [...] Time Provider Department Center 01/12/2020 10:00 AM [facility] DX ROOM 1 MH Xray [facility] Rad 01/12/2020 10:30 AM Yolanda Still MD [facility] ORTH 3A [facility] 01/27/2020 2:00 PM Carrillo Rogel MD [facility] Associated attestation - Yolanda Still MD - 01/09/2020 6:32 AM EST Patient seen and examined. Agree with resident note. Carmen Still MD Department of Orthopaedics 01/09/20 Sanjuana Solomon, RN - 01/08/2020 4:13 PM EST Received report from Afua in PACU. Arrived to room 212 at __. A&O x4. VSS. Pain 01/05. SCD'son right leg only. Patient went to OR today for ORIF, in brace that is locked. Afua Medrano RN - 01/08/2020 3:12 PM EST Patient admitted to PACU. Hand off received from Sam Bland MD. care assumed. Assessments as documented. Monitors on, alarms audible and individualized to patient. 1600 PACU D/C criteria met 1610 hand off to Ofelia Haines RN 2 [place]st Carrillo Kat MD - 01/08/2020 6:30 AM EST ORTHOPAEDIC SURGERY INPATIENT POST OP NOTE Patient Name: Kalyn Darnell Case Age: 59 y.o. Surgery/Issue: L knee spanning ex-fix Findings:??L proximal tibia fracture with threatened skin?? Attending: Yolanda Still MD Date of surgery: 01/06/2020 SUBJECTIVE / INTERVAL HISTORY: AFVSS. She endorses issues with pain overnight. She was able to sleep some. 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 She states that [...] Time Provider Department Center 01/12/2020 10:00 AM [facility] DX ROOM 1 MH Xray [facility] Rad 01/12/2020 10:30 AM Yolanda Still MD [facility]TH 3A [facility] 01/27/2020 2:00 PM Carrillo Rogel MD [facility] Associated attestation - Yolanda Still MD - 01/09/2020 6:32 AM EST Patient seen and examined. Agree with resident note. Plan for MRI to evaluate knee ligaments. Carmen Still MD Department of Orthopaedics 01/09/20 Ashley Conrad RN - 01/07/2020 3:45 PM EST OFFICE OF CARE MANAGEMENT Dietary Aide Follow-up Note Patient plan of care discussed in multidisciplinary rounds and assessment for continuing care and discharge needs. [facility] Hospital: 15 hours INSURANCE: Payor: [place]ICA[place] / Plan: [place] PRIMARY CARE PLUS / Product Type: *No Product type* / SECONDARY INSURANCE: N/A DECISION MAKER: Full Code <no information> Patient continues to require hospitalization. Reviewed case with RINKU Etienne. Current Referral in place: Will need Rehab choices Dietary Aide to follow with team and family to [...] 10 mg ??? lactated Ringers 75 mL/hr (01/06/20 9561) OBJECTIVE: Temp: [36.8 ??C (98.2 ??F)-37.1 ??C (98.8 ??F)] Heart Rate: [64-73] Resp: [14-22] BP: (98-144)/(51-78) Intake/Output Summary (Last 24 hours) at 01/07/2020 06 Last data filed at 01/07/2020 0454 Gross [...] Center 01/27/2020 2:00 PM Carrillo Rogel MD [facility] Associated attestation - Yolanda Still MD - [...] Center 01/27/2020 2:00 PM Carrillo Rogel MD [facility] Associated attestation - Yolanda Still MD - [...] last 30 days. Carrillo Manley MD Judd Plascencia MD - 01/06/2020 6:11 PM EST The patient's history and physical exam have been reviewed and completed. There has been no intervalchange from that of the pre-operative history and physical exam done within the last 30 days. Carrillo Kat MD - 01/06/2020 6:04 PM EST Images from the original note were not included. ORTHOPAEDIC SURGERY CONSULT NOTE ATTENDING: Flaviajolynnyash Kalyn Burgos is a 59 y.o. female who presents to see us in consultation today at the request of Viky Govea MD. CHIEF COMPLAINT: L proximal tibia fracture HPI: Kalyn Burgos is a 59 y.o. 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 lactated ringers infusion ??? HYDROmorphone (DILAUDID) injection 1 mg ??? Ciclesonide (OMNARIS) 50 mcg [place], Non-Aerosol ??? Pdqtigmb5-Yzeoug4-Reyzn therm. (VISBIOME) 112.5 billion cell Capsule ??? [...] (5/5) shoulder abduction, elbow flexion/extension, wrist flexion/extension, crocheter, EPL, AIN, IO Brisk capillary refill distally [...] (5/5) shoulder abduction, elbow flexion/extension, wrist flexion/extension, crocheter, EPL, AIN, IO Brisk capillary refill distally [...] evaluation and treatment. Please page Orthopaedic consults ([phone]) with any questions or co ncerns. ?? Carrillo Manley MD P. [phone] 01/06/20 6:04 PM Future Appointments Date Time Provider Department Center 01/27/2020 2:00 PM Carrillo Rogel MD [facility] Associated attestation - Yolanda Still MD - [...] Ray MD - 01/06/2020 3:52 PM EST Kalyn Burgos is an 59 y.o. female who presents to the ED with: Chief Complaint Patient presents with ??? Leg Injury skiing accident I saw this patient 01/06/2020 HPI Kalyn Burgos is a 59 y.o. female with no relevant past medical history who presents to the Emergency Department with left lower extremity pain. She is a transfer from [facility]. She has left tib-fib fracture. She is [...] file Gets together: Not on file Attends jainism service: Not on file Active member of [...] reviewed ED Course as of Jan 09 1553 Tue Jan 06, 2020 1623 Spoke with ortho, they will eval 1623 Labs from outside hospital show essentially normal [...] 20 mg (20 mg Oral Given 01/09/20 09) acetaminophen (Tylenol) tablet 1,000 mg (1,000 mg [...] patch REMOVAL (3 patches Transdermal Patch Removed 01/08/20 220) enoxaparin (LOVENOX) injection 30 mg (has no [...] contact the number below. Electronically signed by: [facility] ([phone]), at 01/08/2020 4:01 PM XR Fluoro No Rad <1Hr - OR [...] 3:52 PM Kg Ray MD Resident 01/09/20 2492 Associated attestation - Viky Govea MD - [...] 8.78) performed by Yolanda Still MD at [facility] MAIN OR ??? SHOULDER ARTHROSCOPY ??? [...] with HOB elevated and use of leg nursing informatics specialist Sit<>stand: CGA-Zenaida x2 with FWW- verbal cueing [...] instrument andmeasurable assessment of functional outcome. Pager: [phone] Afua Luna OT 01/09/2020 Occupational Therapy Rehabilitation Department Plan of Care - Charles Gill, PT - 01/09/2020 1:32 PM EST Physical [...] stairs. ?? Precautions/Special Considerations: NWB LLE with Ronnie, MRI done today to assess ligamentous damage,? Mobility and Positioning Recommendations: ?? Pt. to utilize assist to LLE, leg nursing informatics specialist to get EOB, Mod asst of 2 [...] able to maintain NWB LLE, using leg nursing informatics specialist to move LLE Sensation: LT intact bottom [...] recommendations discussed with nursing. ? Assessment: Kalyn Darnell Case was seen today for physical therapy continuation [...] TEF x 3 CHARLES GILL, PT Pager: [phone] Physical Therapy Inpatient Rehabilitation Department Plan of [...] dilaudid x1. Denies nausea. Adequate UOP via cooper catheter; no indication for catheter, will discuss removal with the team during rounds. No BM this shift; +flatus. Neuro vasc checks unchanged, remarkable only for numbness and tingling in LLE. Moderate amount of bloody drainage from pin sites. MD aware. Knee immobilizer remains inplace. Will continue to monitor. PLAN MOVING FORWARD: Pain control OOB and ambulation D/c cooper Discharge planning INDIVIDUALIZED FALL PREVENTION INTERVENTIONS: High fall risk Patient-specific fall risk factors per assessment: [current deficits]: Recent fall, 2 or more active diagnoses, recent surgery, acute pain, opioid analgesia, PIV, continuous IVF, cooper catheter, knee immobilizer, NWB LLE, Assistance [level [...] Ongoing (Interventions Implemented as Appropriate) 01/07/20 0353 01/08/201840 Individualization Patient Specific Interventions -- Hardware removed [...] Conf Outcome: Ongoing (Interventions Implemented as Appropriate) 01/08/201839 Interdisciplinary Rounds/Family Conf Participants corrections caseworker;nursing;patient;physician;physical therapy Problem: Skin Integrity Impairment, Risk/Actual (Adult) [...] Q4 neurovascular checks unremarkable. Adequate UOP via cooper, no flatus, no bm. PT NPO forsurgery, [...] EST Patient Name: Kalyn Darnell Case : [id number] MR#: [id number] ?? Case Date: 01/08/2020 ?? Surgeon: Surgeon(s) [...] ago. The patient was subsequently transferred to [facility] where was noted that she had threatened [...] A timeout was held in accordance with [facility] policy verifying the patient's name, date ofbirth, [...] by Mepilex dressings patient was placed into [place] Brace with the knee unlocked. She was then transferred back to the hospital bed after reversal of anesthesia having suffered no untoward complications. All counts were correct at the end of the case. Implant Name Type Inv. Item Serial No. Gas Fitter Helper Lot No. LRB No. Used Action SCREW,CRTX,STAP,3.5X60MM [id number]) - [id number] IMPLANTS SCREW,CRTX,STAP,3.5X60MM ([id number]) [facility] Left 1 Implanted SCREW,CRTX,STAP,3.5X65MM ([id number]) - [id number] IMPLANTS SCREW,CRTX,STAP,3.5X65MM ([id number]) [facility] Left 1 Implanted SCREW,LCK,HEAD,S-TAP,TI,5X26MM ([id number]) - [id number] IMPLANTS SCREW,LCK,HEAD,S- TAP,TI,5X26MM ([id number]) [facility] Left 3 Implanted SCREW,LCK,HEAD,S-TAP,TI,5X28MM ([id number]) - [id number] IMPLANTS SCREW,LCK,HEAD,S- TAP,TI,5X28MM ([id number]) [facility] Left 2 Implanted SCREW,LCK,HEAD,S-TAP,TI,5X55MM ([id number]) - [id number] IMPLANTS SCREW,LCK,HEAD,S- TAP,TI,5X55MM ([id number]) [facility] Left 1 Implanted SCREW,LCK,HEAD,S-TAP,TI,5X70MM ([id number]) - [id number] IMPLANTS SCREW,LCK,HEAD,S- TAP,TI,5X70MM ([id number]) [facility] Left 1 Implanted SCREW,TI,STAP,5X14MM ([id number]) - [id number] IMPLANTS SCREW,TI,STAP,5X14MM ([id number]) [facility]; [facility] Left 1 Implanted SCREW,LCK,HEAD,S-TAP,TI,5X36MM ([id number]) - [id number] IMPLANTS SCREW,LCK,HEAD,S- TAP,TI,5X36MM ([id number]) [facility] Left 1 Implanted PLATE,PROX,LAT,TIB,9H,LT,220MM ([id number]) - [id number] IMPLANTS PLATE,PROX,LAT,TIB,9H,LT,220MM ([id number]) [facility] Left 1 Implanted KWIRE,THRD,SPD,PNT-TP,3X592HS ([id number]) - [id number] IMPLANTS KWIRE,THRD,SPD,PNT-TP,[id number] ([id number]) [facility] Left 2 Implanted Number of fracture regions: [...] Still MD 01/09/2020 Brief Op Note - Jdud Lyon MD - 01/08/2020 3:12 PM EST Brief Operative Note Patient Name: Kalyn Darnell Case : [id number] MR#: [id number] Case Date: 01/08/2020 Surgeon: Surgeon(s) and Role: * Yolanda Still MD - Primary * Judd Lyon MD - Resident * Carrillo Manley MD - Resident Preoperative diagnosis: L [...] available/appropriate. Please page with any questions. Joanne Luna OT Inpatient Rehab Pager #[phone] Plan of Care - Charles Gill, PT [...] has generalized weakness, has tubes/drains, has a Cooper catheter, is taking opioid/narcotic medications for pain management, is taking (antiarrythmic, antihypertensive, cardiac, antidepressants, antipsychotic, sleep aids, antihistamines), forgets limitations, deficits ([place], glasses, tactile deficits), problems (urge/stress incontinence, diarrhea, [...] Handling Outcome: Ongoing (Interventions Implemented as Appropriate) 01/06/20229901/07/2053 01/07/20 193 Daily Care Interventions Self-Care Promotion -- -- [...] -- Activity Activity Type bedrest -- -- 01/07/202316 Daily Care Interventions Self-Care Promotion -- [place] Fall Risk History of Falling 25 Secondary Diagnosis 15 Ambulatory Aids 0 Intravenous Therapy/Heparin/Saline Lock 20 Gait/Transferring 0 Mental Status 0 Score 60 OTHER [place] Fall Risk High Restraint Interventions Safety Promotion/Fall Prevention -- Positioning Body Position independent with trapeze/overhead bed frame Activity Activity Type -- Goal: Infection Control Outcome: Ongoing (Interventions Implemented as Appropriate) 01/07/20852 Safety Interventions Isolation Precautions standard precautions maintained [...] place above bed to assist with repositioning. Cooper continues to output clear yellow urine. LLE pin sites continue to output bloody drainage throughout shift, paged and aware. Blood pressures were soft [...] Handling Outcome: Ongoing (Interventions Implemented as Appropriate) 01/06/20229901/07/2085201/07/201938 Daily Care Interventions Self-Care Promotion -- -- [...] Control Outcome: Ongoing (Interventions Implemented as Appropriate) 01/07/20852 Safety Interventions Isolation Precautions standard precautions maintained [...] questions, Joanne Luna OT Inpatient Rehab Pager #[phone] Plan of Care - Charles Gill PT [...] 8.78) performed by Yolanda Still MD at [facility] MAIN OR ??? SHOULDER ARTHROSCOPY ??? [...] ellington >/= 3 times daily as able. Subjective: [...] Evaluation Minutes, Physical Therapy: (P) 35 CHARLES GILL, PT Pager: [phone] Physical Therapy Inpatient Rehabilitation Department Initial Assessments [...] Burgos would be surrogate decision maker per [place] surrogate decision making law. Any patient receiving care at [facility] must abide by [place] law. The hierarchy for surrogate decision making [...] (i) The agent with financial power of district attorney or a conservator appointed in accordance with [...] Supports/Community Resources: Son, brother Piero Darnell in [place]., friends, neighbors, [employer]. Behavioral Health History: Yes, long history of anxiety, currently on Prozac, prescribed by PCP. Not active in counseling. Substance Use/Abuse: None Other Pertinent/Service Specific Information: None Health/Prescription Coverage: Primary Insurance: MEDICAID [place] Secondary Insurance: N/A Prescription Coverage: [place] Medicaid Preferred Pharmacy: [facility] [address] Other: NA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 Sun01/06/20 at 2315, Until Discontinued, Routine 1349 ([facility] Hold - Provider: A dmin Adt - Reason: Transfer to a Procedural area)1640 ([facility] Unhold - Provider: Admin Adt)2113 (Given - Provider: Olu Hernandez RN) senna-docusate (Pericolace) 8.6-50 mg per tablet 2 tab let 0900 (Not Given - Provider: Frances Douglas RN - Reason: Patient/family refused)2010 (Given - Provider: Jaimie Martinez RN) 0822 (Given - Provider: Sanjuana Solomon RN )1242 ([facility] Hold - Provider: Admin Adt - Reason: Transfer to a Procedural area)1347 ([facility] Unhold - Provider: Admin Adt)1349 ([facility] Hold - Provider: Admin Adt - Reason: [...] (Given - Provider: Sanjuana Solomon RN )1242 ([facility] Hold - Provider: Admin Adt - Reason: Transfer to a Procedural area)1347 ([facility] Unhold - Provider: Admin Adt)1349 (MAR Hold - Provider: Admin Adt - Reason: Transfer to a Procedural area) 0900 (Given - Provider: Sanjuana Solomon RN ) 5 mL, Intravenous, 2 TIMES DAILY, First dose on Sun01/06/20 at 2315, Until Discontinued, Routine 1640 ([facility] Unhold - Provider: Admin Adt)2114 (Given - Provider: Olu Hernandez, MARLEY) Continuous Medication Order 01/07/2020 01/08/2020 01/09/2020 lactated ringers infusion 1021 (New Bag - Provider: Kerri Diaz RN) 0021 (New Bag - Provider: Jaimie Martinez, MARLEY)0354 (Stopped - Provider: Jaimie Martinez RN - Comment: Per pt request)1242 ([facility] Hold - Provider: Admin Adt - Reason: Transfer to a Procedural area)1347 ([facility] Unhold - Provider: Admin Adt) 0810 (New Bag - Provider: Es Tamayo RN) 75 mL/hr, at 75 mL/hr, Intravenous, CONT INUOUS, Starting 01/06/20 at 1709, Until Sun01/09/20 at 1854 1349 ([facility] Hold - Provider: A dmin Adt - Reason: Transfer to a Procedural area)1519 ([facility] Unhold - Provider: Afua Ramachandran RN) PRN Medication Order 01/07/2020 01/08/2020 01/09/2020 cyclobenzaprine (Flexeril) tablet 10 mg 0047 (Given - Provider: Jaimie Martinez RN)0823 (Given - Provider: Sanjuana Solomon, MARLEY)1242 ([facility] Hold - Provider: Admin Adt - Reason: Transfer to a Procedural area)1347 ([facility] Unhold - Provider: Admin Adt) 0901 (Given - Provider: Sanjuana Solomon, MARLEY )1315 (Given - Provider: Sanjuana Solomon, MARLEY) 10 mg, Oral, 3 TIMES DAILY PRN, Starting Sonal 01/08/20 at 0027, Until Sun01/09/20 at 1854, Muscle spasms, Routine 1349 ([facility] Hold - Provi qamar: Admin Adt - Reason: Transfer to a Procedural area)1532 ([facility] Unhold - Provider: Afua Ramachandran RN) Dextromethorphan HBr 5 mg/5 mL oral syrup 15 mg 0350 (Given - Provider: Jaimie Martinez RN)1242 ([facility] Hold - Provider: Admin Adt - Reason: Transfer to a Procedural area)1347 ([facility] Unhold - Provider: Admin Adt)1349 ([facility] Hold - Provider: Admin Adt - Reason: Transfer to a Procedural area) 15 mg, Oral, EVERY 4 HOURS PRN, Starting Sonal 01/08/20 at 0316, Until 01/09/20 at 1854, Cough, For resetting opioid receptors, give with dilaudid., Routine 1640 ([facility] Unhold - Provider: Admin Adt) fentaNYL (PF) [...] mg (COMPLETED) 101 (Given - Provider: Lily Oakley RN) 0.4 mg, Intravenous, ONCE PRN, 1 dose, S tarting 01/07/20 at 0047, Until 01/07/20 at 0102, Pain, For pain not controlled with current medications, Routine HYDROmorphone (DILAUDID) injection 0.4 mg (COMPLETED) 1817 (Given - Provider: Frances Douglas, MARLEY) 0.4 mg, Intravenous, ONCE PRN, 1 dose, S tarting Sun01/07/20 at 1801, Until Sun01/07/20 at 1818, Pain, For pain not controlled with current medications, Routine HYDROmorphone (DILAUDID) injection 0.4 mg (COMPLETED) 2246 (Given - Provider: Jaimie Martinez, MARLEY) 0.4 mg, Intravenous, ONCE PRN, 1 dose, S tarting Sun01/07/20 at 2205, Until 01/07/20 at 224, Pain, For pain not controlled with current medications, Routine HYDROmorphone (DILAUDID) injection 0.4 mg (COMPLETED) 335 (Given - Provider: Jaimie Martinez RN) 0.4 mg, Intravenous, ONCE PRN, 1 dose, S tarting Sonal 01/08/20 at 0317, Until Sonal 01/08/20 at 0336, Pain, For pain not controlled with current medications, Routine HYDROmorphone (DILAUDID) injection 0.5 mg (COMPLETED) 0018 (Given - Provider: Jaimie Martinez RN) 0.5 mg, Intravenous, ONCE PRN, 1 dose, S tarting 01/07/20 at 2359, Until Sun01/08/20 at 0018, Pain, For pain not controlled with current medications, Routine HYDROmorphone (DILAUDID) injection 0.5 mg 1242 ([facility]AN Hold - Provider: Admin Adt - Reason: Transfer to a Procedural area)1347 ([facility] Unhold - Provider: Admin Adt)1349 ([facility] Hold - Provider: Admin Adt - Reason: Transfer to a Procedural area)1640 ([facility] Unhold - Provider: Admin Adt) 0.5 mg, Intravenous, ONCE PRN, 1 dose, S tarting Sun01/08/20 at 0818, Until Sun01/09/20 at 1854, [...] Martinez RN)0431 (See Alternative - Provider: Jaimie Martinez RN)0823 (See Alternative - Provider: Sanjuana Solomon RN)1242 ([facility] Hold - Provider: Admin Adt - Reason: Transfer to a Procedural area) 0545 (See Alternative - Provider: Elizabeth Hernandez RN)1032 (See Alternative - Provider: Es Tamayo RN) 2 mg, Oral, EVERY 4 HOURS PRN, Starting Sun01/07/20 at 0806, Until Sun01/09/20 at 1854, Pain, for mild pain (1-3), May give an additional 2 mg once if pain not relieved in 30-60 minutes., Routine 1347 ([facility] Unhold - Provider: Admin Adt)1349 ([facility] Hold - Provider: Admin Adt - Reason: Transfer to a Procedural area)1519 ([facility] Unhold - Provider: Afua Ramachandran RN)2233 (See Alternative - Provider: Olu Hernandez RN) HYDROmorphone (Dilaudid) tablet 4 mg(Linked Group 2) 0 853 (See Alternative - Provider: Frances Douglas RN)0950 (See Alternative - Provider: Frances Douglas RN)1448 (Given - Provider: Frances Douglas RN)2011 (See Alternative - Provider: Jaimie Martinez RN) 0020 (See Alternative - Provider: Yan Martinez RN)0431 (See Alternative - Provider: Jaimie Martinez RN)0823 (See Alternative - Provider: Sanjuana Solomon RN)1242 ([facility] Hold - Provider: Admin Adt - Reason: Transfer to a Procedural area) 0545 (See Alternative - Provider: Elizabeth Hernandez RN)1032 (See Alternative - Provider: Es Tamayo RN) 4 mg, Oral, EVERY 4 HOURS PRN, Starting Sun01/07/20 at 0806, Until Sun01/09/20 at 1854, Pain, for moderate pain (4-6), May give an additional 2 mg once if pain not relieved in 30-60 minutes., Routine 1347 ([facility] Un old - Provider: Admin Adt)1349 (JAN Hold - Provider: Admin Adt - Reason: Transfer to a Procedural area)1519 ([facility] Unhold - Provider: Afua Ramachandran RN)2233 (See [...] Martinez, MARLEY)0823 (Given - Provider: Sanjuana Solomon, RN)1242 ([facility] Hold - Provider: Admin Adt - Reason: Transfer to a Proc edural area) 0545 (Given - Provider: Olu López, MARLEY)1032 (Given - Provider: Es Tamayo, MARLEY) 6 mg, Oral, EVERY 4 HOURS PRN, Starting Sun01/07/20 at 0806, Until Sun01/09/20 at 1854, Pain, for severe pain (7-10), May give an additional 2 mg once if pain not relieved in 30-60 minutes., Routine 1347 (JAN Unho ld - Provider: Admin Adt)1349 ([facility] Hold - Provider: Admin Adt - Reason: Transfer to a Procedural area)1519 ([facility] Unhold - Provider: Afua Ramachandran, MARLEY)2233 (Given - Provider: Olu Hernandez, MARLEY) lidocaine (XYLOCAINE) 10 mg/mL (1 %) injection 3 mg 1242 ([facility] Hold - Provider: Admin Adt - Reason: Transfer to a Procedural area)1347 ([facility] Unhold - Provider: Admin Adt)1349 ([facility] Hold - Provider: Admin Adt - Reason: Transfer to a Procedural area)1640 ([facility] Unhold - Provider: Admin Adt) 3 mg (0.3 mL), Subcutaneous, ONCE PRN, 1 dose, Starting Tu01/06/20 at 2249, Until Sun01/09/20 at 1854, for discomfort with PIV insertion, Routine LORazepam (Ativan) tablet 0.5 mg (COMPLETED) 101 (Giv en - Provider: Lily Oakley, MARLEY) [...] Routine ondansetron (ZOFRAN) injection 4 mg 1242 ([facility] Hold - Provider: Admin Adt - Reason: Transfer to a Procedural area)1347 ([facility] Unhold - Provider: Admin Adt)1349 ([facility] Hold - Provider: Admin Adt - Reason: Transfer to a Procedural area)1640 ([facility] Unhold - Provider: Admin Adt) 4 mg, [...] 0.9 % (flush) flush 5-20 mL 1242 ([facility] Hold - Provider: Admin Adt - Reason: Transfer to a Procedural area)1347 ([facility] Unhold - Provider: Admin Adt)1349 ([facility] Hold - Provider: Admin Adt - Reason: Transfer to a Procedural area)1640 ([facility] Unhold - Provider: Admin Adt) 5-20 mL, Intravenous, EVERY 1 MIN PRN, S tarting Sun01/06/20 at 2249, Until Sun01/09/20 at 1854, flush, Flush pertains to all indwelling lines. Flush per protocol found in the job aid using the link provided on this medication record., Routine vancomycin (VANCOCIN) injection (CANCELED) 141 (Given - Provider: Yolanda Still MD) ONCE PRN, Starting Sonal 01/08/20 at 1419, Until Sonal 01/08/20 at 2047, Intra- Operative (Intra-Procedure), Routine Linked Groups Order Group 1: lidocaine (LIDODERM) 5 % patch 3 patchJump to med 3 patch, Transdermal, EVERY 24 HOURS, Fi rst dose on Sonal 01/08/20 at 1015, Until Discontinued
Apply patch(es) for 12 hours, and then remove for 12 hours
Routine And lidocaine (LIDODERM) patch REMOVALJump to med Transdermal, EVERY 24 HOURS, First dose on Sonal 01/08/20 at 2200, Until Discontinued
Remove lidocaine 5 [...]
Routine documented in this encounter Care Teams Endless Belt Finisher Relationship Specialty Start Date End Date April Cummins APRN PCP - General Internal Medicine 01/06/20 05/20/[address] [place] [address] documented as of this encounter
--- OUTSIDE RECORDS SUMMARY | 2022-02-15 02:27 | XMS_ITS | Encounter Summary ---
:1960 Author Organization [facility] [address] Care Team Providers Name Role Phone April Cummins APRN Primary Care Provider Encounter Details Date Type Department Care Team Description 02/07/2019 Ancillary Procedure Radiology Library at [facility] KALE [facility] [place] [id number] UROLOGY DEPT. [phone] [place], [place] [address] (Wo rk) Social History Tobacco [...] (TeleHealth) Neurology Pippa Jc MD [facility] [address] [place] [address] (Wo rk) Scheduled Procedures Name Priority Associated Diagnoses Date/Time COLONOSCOPY, DIAGNOSTIC Encounter for colorectal cancer screening documented as of this encounter Procedures Procedure Name Priority Date/Time Associated Comments Diagnosis FILM LIBRARY STORAGE Routine 02/07/2019 12:00 AM Results for this ONLY ULTRASOUND EDT procedure ar sally in STUDY the results section. documented in this encounter Results Film Library- Storage Only Ultrasound Study (02/07/2019 12:00 AM EDT) Specimen (Source) Anatomical Location Collection Method / Collectio n Time Received Time / Laterality Volume Narrative DENISE - 02/09/2019 6:21 AM EDT This exam is auto-finalizing. It's purpo se is for storage only. Rosemary Ceron APRN IMG FILM LIBRARY ORDERABLES Performing Organization Address City/State/ZIP Code Phon e Number [place], [place] documented in this encounter Visit Diagnoses Not on filedocumented in this encounter Care Teams Kick Plate Installer Relationship Specialty Start Date End Date April Cummins APRN PCP - General Internal Medicine 11/06/18 11/19/[address] [place] [address] documented as of this encounter
--- OUTSIDE RECORDS SUMMARY | 2022-02-15 02:27 | XMS_ITS | Encounter Summary ---
:1960 [place] [address] Care Team Providers Name Role Phone April Cummins APRN Primary Care Provider Reason for Visit Auth/Cert Specialty Diagnoses / Procedures Referred By Contact Refer red To Contact Diagnoses Tibia fracture Trauma Procedures ER IPI Admit Referral ID Status Reason Start Date Expiration Date Visits Requ ested Visits Authorized [id number] 1 1 Encounter Details Date Type Department Care Team Description 01/08/2020 Anesthesia Event Main Operating Room Elio Upton MD [facility] [place] [address] [facility] Dennis Ronquillo MD [facility] [place] [address] [place] [address] Anesthesia Record Procedure Summary Procedure Name Responsible Anesthesia Start Anesthesia Stop Time Anesthesiologist Time ORIF TIBIAL SHAFT, Elio Mitchell MD 01/08/20 1318 01/08 1456 PLATE & SCREWS (WRVU 12.54) (Left Leg Lower) Events Date Time Event Comment 01/08/2020 1138 1318 AN Verify 1318 Start 1318 An Start Data 1326 An Induction 1327 An Intubation 1329 Anesthesia Ready 1340 An Tourn Inflated 1455 Extubation/LMA Out 1455 an stop data 1455 Recovery or ICU Handoff Patient care was transferred to the destination unit staff after review of the patient's medica l history, current anesthetic/surgi vanessa status and plan, according to the Provider Handoff Checklist. 1456 Stop Name Total Propofol 100 mg Dexamethasone 4 mg Ondansetron 4 mg ePHEDrine 20 mg PHENYLephrine 160 mcg BUpivacaine 0.5% 30 mL Agents Name O2 Air N2O Sevoflurane (et) Blood No blood administrations on file. Lines, Drains, and Airways Type Details Placement Removal Incision 01/08/20; 1341; knee; 01/08/20 1341 by vertical Eugenie Seaman RN Urethral Catheter 01/06/20; 1602; 01/06/20 1602 by 01/09/20 0922 by Physician order; Shraddha Webster, Shavonne Wilkins, NILS Prolonged RN Immobilization; indwelling single lumen catheter; present on admission to this facility; 01/09/20; 0922 External Fixator 01/06/20; 2008; LLE; 01/06/202008 by 01/08/20 1355 by 01/08/20; 1355 ArlettewoodKena RN Landry, Arleth Lopes RN PIV 01/07/20; 1520; basilic 01/07/20 1520 by 0 1426 by vein (medial side of Raymond Wong RN Bernard, Mary Kay, arm), right; RN axho-lfi-xjjiza catheter system; 22 gauge, 1 in length; Huan ROACH VAS; distraction, appears comfortable, age-appropriate response; leaking at site; removed per policy/procedure, other (see comments); 01/09/20; 1426 ETT 01/08/20 1332 by 01/08/20 1455 b Sam Luu MD Hembree, S amuel C, MD Supraglottic Mask Ventilation: Not 01/08/20 1332 by 01/08/20 1455 by Attempted (0); LMA Type: Sam Bland MD H embree, Samuel C, iGel; LMA Size: 3; MD Inserted by: wesley documented in this encounter Social History Tobacco Use Types Packs/Day Years Used Date Never Smoker Smokeless Tobacco: Never Used Comments: Exposure to smoking in the lgenn e until the age of 16 Alcohol Use Standard Drinks/Week Comments No 0 (1 standard drink = 0.6 oz pure alcoho l) Sex Assigned at Date Recorded Not on file documented as of this encounter OR Notes Anesthesia Postprocedure Evaluation - Sam Bland - 01/08/2020 5:11 PM EST Department of Anesthesiology Post-procedure Note Patient: Kalyn Darnell Case Procedure Summary Date: 01/08/20 Room / Location: [facility] OR [facility] MAIN OR Anesthesia Start: 1317 Anesthesia Stop: 1455 Procedures: ORIF TIBIAL SHAFT, PLATE & SCREWS (WRVU 12.54) (Left Leg Lower) MODIFIER TIBIA SABRINA SYSTEM SYNTHES (N/A Leg Lower) MODIFIER LOCKING SMALL FRAGMENT SYNTHES (N/A ) Diagnosis: (L proximal tibia fracture) Surgeon: Yolanda Still MD Responsible Provider: Elio Mitchell MD Anesthesia Type: general ASA Status: 2 All Anesthesia Providers: Anesthesiologist: Elio Mitchell MD Manager Night: Sam Bland MD Vitals Value Taken Time BP 112/64 01/08/2020 4:00 PM Temp 37.3 ??C (99.1 ??F) 01/08/2020 4:00 PM Pulse 68 01/08/2020 4:10 PM Resp 15 01/08/2020 4:10 PM SpO2 97 % 01/08/2020 4:30 PM Pain Level 0 01/08/2020 4:00 PM Vitals shown include unvalidated device data. Patient Location: PACU/[facility] Level of Consciousness: Awake and Alert Pain Management: Satisfactory Analgesia PONV: None Cardiovascular Status: At Baseline and Hemodynamically Stable Respiratory Status: At Baseline and Room Air Postoperative Fluid Status: Intravascular EUvolemia Possible Anesthetic Complications: NONE apparent at time of evaluation Final Primary Anesthesia Type: General (The anesthetic type performed was the same as planned.) Comments: Sam Bland MD Anesthesia Procedure Notes - Dennis Ronquillo MD - 01/08/2020 1:25 PM EST Associated Order(s): Anesthesia Block Anesthesia Block Date/Time: 01/08/2020 1:10 PM Performed by: Dennis Ronquillo MD Authorized by: Javier Urbina MD Start Time: 01/08/2020 1:01 PM End Time: 01/08/2020 1:12 PM Patient Location: Block Room Indication: Post-op Pain Control Post-op pain management at the request of surgeon. Block Type: Sciatic sciatic/ popliteal nerve block Laterality: Left Position: Supine Prep: Chlorhexidine, patient draped and mask, cap, sterile gloves, hand hygeine Skin Anesthetic: Lidocaine 1% dose: 3 D-ojiob-bscry 21 10 cm Single-Shot: Single-shot BUpivacaine 0.5%, 30 mL no complications Resident/SPANISH MOSS PICKER:: eDnnis Ronquillo MD Attending Physician:: Javier Urbina MD Negative aspiration every 5cc Proximal popliteal block: 23cc Saph: 7cc No complications. Anesthesia Preprocedure Evaluation - Sam Bland - 01/08/2020 9:30 AM EST Pre-Anesthesia Evaluation for: Kalyn Darnell Case a 59 y.o. female. Procedure(s): ORIF TIBIAL SHAFT, PLATE & SCREWS (WRVU 12.54) MODIFIER TIBIA SABRINA SYSTEM SYNTHES MODIFIER LOCKING SMALL FRAGMENT SYNTHES Patient Active Problem List Diagnosis ??? Tibia fracture ??? Danny's thyroiditis ??? Lower urinary tract [...] 8.78) performed by Yolanda Still MD at [facility] MAIN OR ??? SHOULDER ARTHROSCOPY ??? [...] been reviewed. Physical Exam: Most Recent Vitals: 01/08/20 0826 BP: 98/57 Pulse: Resp: 21 Temp: 36.8 ??C (98.2 ??F) SpO2: 98% Body mass index is 20.8 kg/m??. Height: 165.1 cm (5' 5) Weight: 56.7 kg (125 lb) Airway Assessment: Mallampati: II TM distance: >3 FB Neck ROM: full Cardiovascular Assessment: cardiovascular exam normal Pulmonary Assessment: pulmonary exam normal Dental Assessment: - normal exam Misc Assessment: Patient is wearing No contact(s). IV access: Peripheral line Anesthesia Plan: ASA 2 general, with a(n) intravenous induction 59yoF for LLE ex-fix removal, tibial plating. Complaining of severe abdominal or flank pain this morning, distracting her from her leg pain. Says she thinks its a kidney stone or infection vs gas pain.Benign abdominal exam, KUB ordered by primary team. PMHx also positive for hashimotos thyroiditis (not on meds), prior cervical fusion (good neck mobility), periocardial effusion in setting of lyme disease (not active currently, did not require drainage), borderline ANIBAL (per her report), IBS, anxiety. Denies problems with anesthesia although she does state that she wakes up mad. NPO status questionable. Patient says ate fruit at 6am. Plan GA/LMA, PNB, GETA backup. No sooner than 12p Region - Other Informed Consent: Anesthetic plan and risks discussed with patient. Plan discussed with attending. PAT Clinic Note documented in this encounter Miscellaneous Notes Addendum Note - Dennis Ronquillo MD - 01/13/2020 10:22 AM EST Addendum created 01/13/20 1022 by Dennis Ronquillo MD Clinical Note Signed documented in this encounter Plan of Treatment Upcoming Encounters Date Type Specialty Care Team Description 04/03/2022 TH Visit (TeleHealth) Neurology Pippa Jc MD [facility] [address] [place] [address] (Wo rk) Scheduled Procedures Name Priority Associated Diagnoses Date/Time COLONOSCOPY, DIAGNOSTIC Encounter for colorectal cancer screening documented as of this encounter Procedures Procedure Name Priority Date/Time Associated Diagnosis Comme nts ANESTHESIA BLOCK Routine 01/08/2020 1:25 PM Resu lts for this EST procedure are i n the results section. documented in this encounter Results Anesthesia Block (01/08/2020 1:25 PM EST) Narrative Javier Urbina MD - 01/08/2020 1:25 PM EST Dennis Ronquillo MD ? 01/08/2020 ??1:26 PM Anesthesia Block Date/Time: 01/08/2020 1:10 PM Performed by: Dennis Ronquillo MD Authorized by: Javier Urbina MD Start Time: ??01/08/2020 1:01 PM End Time: ??01/08/2020 1:12 PM Patient Location: ??Block Room Indication: ??Post-op Pain Control Post-op pain management at the request o f surgeon. ?? Block Type: ??Sciatic sciatic/ popliteal nerve block Laterality: ??Left Position: ??Supine Prep: ??Chlorhexidine, patient draped an d mask, cap, sterile gloves, hand hygeine Skin Anesthetic: ??Lidocaine 1% dose: ??3 Y-nrpkr-vgntf 21 10 cm Single-Shot: ??Single-shot BUpivacaine 0.5%, 30 mL no complications ?? Resident/SPANISH MOSS PICKER:: ??Dennis Ronquillo MD Attending Physician:: ??Javier Urbina MD Negative aspiration every 5cc Proximal popliteal block: 23cc Saph: 7cc No complications. Javier Urbina MD DOCUMENT COORDINATOR [facility] documented in this encounter Visit Diagnoses Not on filedocumented in this encounter Administered Medications Inactive Administered Medications - up to 3 most recent administrations Medication Order MAR Action Action Date Dose Rate Site BUpivacaine (PF) (MARCAINE) 0.5 % Given 01/08/2020 1:10 PM EST 30 mLs (5 mg/mL) injection Starting on Sonal 01/08/20 at 1310, Until Sonal 01/08/20 at 1310, Anesthesia Intra-op, Routine dexamethasone (DECADRON) injection Given 01/08/2020 1:36 PM EST 4 mg Intravenous, PRN, Starting on Sonal 01/08/20 at 1336, Until Sonal 01/08/20 at 1456, Anesthesia Intra-op, Routine ePHEDrine 5 mg/mL multi-dose injection Given 01/08/2020 1:45 PM EST 10 mg Intravenous, PRN, Starting on Sonal 01/08/20 at 1333, Until Sonal 01/08/20 at 1456, Anesthesia Intra-op, Routine Given 01/08/2020 1:33 PM EST 10 mg ondansetron (ZOFRAN) injection Given 01/08/2020 2:38 PM EST 4 mg Intravenous, PRN, Starting on Sonal 01/08/20 at 1438, Until Sonal 01/08/20 at 1456, Anesthesia Intra-op, Routine PHENYLephrine in NS (PF) (COLE-SYNEPHRINE) Given 01/08/2020 1:45 PM EST 80 mcg 0.8 mg/10 mL (80 mcg/mL) multi-dose injection Syrg Intravenous, PRN, Starting on Sonal 01/08/20 at 1333, Until Sonal 01/08/20 at 1456, Anesthesia Intra-op, Routine Given 01/08/2020 1:33 PM EST 80 mcg propofol (DIPRIVAN) 10 mg/mL bolus injection Given 1:26 PM EST 100 mg (Anesthesia) Intravenous, PRN, Starting on Sonal 01/08/20 at 1326, Until Sonal 01/08/20 at 1456, Anesthesia Intra-op documented in this encounter Care Teams Burring Wheel Operator Relationship Specialty Start Date End Date April Cummins APRN PCP - General Internal Medicine 01/06/20 05/20/[address] [place] [address] documented as of this encounter
--- OUTSIDE RECORDS SUMMARY | 2022-02-15 02:27 | XMS_ITS | Encounter Summary ---
:1960 Author Organization [facility] [place] [address] Care Team Providers Name Role Phone April Cummins APRN Primary Care Provider Reason for Visit Consultation (Routine) - Closed Specialty Diagnoses / Procedures Referred By Contact Refer red To Contact Endocrinology Diagnoses abn thyroid antibodies April Cummins APRN [facility] [address] [place] [id number] Referral ID Status Reason Start Date Expiration Date Visits V isits Requested Authorized [id number] Closed Consult, 11/06/2018 11/06/2019 1 1 [facility] Encounter Details Date Type Department Care Team Description 03/06/2019 Office Visit Endocrinology at [facility] Carrillo Pan's [facility] [place] [address] [phone] [place], [place] [address] Social History Tobacco Use Types [...] Sign Reading Time Taken Comments Blood Pressure 123/96 03/06/2019 9:46 AM EDT Pulse 59 03/06/2019 9:46 AM EDT Temperature - - Respiratory Rate - - Oxygen Saturation - - Inhaled Oxygen Concentration - - Weight 58.5 kg (129 lb) 03/06/2019 9:46 AM EDT Height 167.6 cm (5' 6) 03/06/2019 9:46 AM EDT Body Mass Index 20.82 03/06/2019 9:46 AM EDT documented in this encounter Progress Notes Carrillo Flores MD - 03/06/2019 10:00 AM EDT Ms. Kalyn Darnell Case is an 58 y.o. female who presents in consultation for chief complaint of abnormal thyroid tests Referred by: April Cummins APRN She presents today to discuss positive blood tests for thyroid antibodies. Overall she tells me thatshe is concerned about feeling very weak all over. She tells me that this has been evaluated by other providers and she was told she has fibromyalgia. She has irritable bowel syndrome and a recent kidney stone that have been bothersome. She has difficulty sleeping and constant feeling of hunger. She has some ongoing problems with incontinence. +Occasional palpitations. She does have some occasional pain in her neck area but longstanding since cervical spine surgery. She feels that her eyes are puffier than previous years She has been seen on an ongoing basis by naturopathic provider. This provider has recommended several supplements to support adrenal and thyroid health including high doses of iodine, and B vitamins.Patient is following the bulletproof diet. Notable PMH: fibromylagia, pelvic floor dysfunction, pericardial effusion (chronic from patient's description), B12 deficiency,anxiety, depression, hyperlipidemia Family medical history: mother had thyroid surgery for unknown reason, brother takes thyroid supplement Social history No smoking No EtOH use Retired Enjoys skiing Does naldo yoga Allergies Allergen Reactions ??? Milk Diarrhea ??? Wheat Other (See Comments) Gastrointestinal distress Acquisition, Review and Summation of Old Medical Records: I reviewed recent PCP note scanned into medical chart. In my review, I saw that primary care recommended endocrinology referral after naturopathic provider had checked thyroid antibody levels and they were abnormal. Review of Systems: As described in HPI, otherwise it is negative Current Outpatient Medications: ??? Ciclesonide (OMNARIS) 50 mcg [place], Non-Aerosol, 2 sprays each nostril BID, Disp: [...] on 11/23/2017), Disp: 20 tablet, Rfl: 0 has a past medical history of Anxiety, Depression, IBS (irritable bowel syndrome), Nephrolithiasis,No known health problems, and Sepsis due to urinary tract infection. Past Surgical History: Procedure Laterality Date ??? APPENDECTOMY ??? BACK SURGERY ??? SECTION ??? SHOULDER ARTHROSCOPY ??? TIBIA FRACTURE SURGERY ??? URETER STENT PLACEMENT Social History Tobacco Use ??? Smoking status: Never Smoker ??? Smokeless tobacco: Never Used ??? Tobacco comment: Exposure to smoking in the home until the age of 16 Substance Use Topics ??? Alcohol use: No ??? Drug use: No Physical Exam: Patient Vitals for the past 24 hrs: Pulse BP 03/06/19 0946 59 (!) 123/96 Wt & BMI By Encounter Date Office Visit from 03/06/2019 in Endocrinology at [place] Office Visit from 01/31/2019 in Allergy at [place] Weight 58.5 kg (129 lb) 1 03/06/2019 0946 59 kg (130 lb) 1 01/31/2019 1342 BMI 20.82 1 03/06/2019 0946 20.98 1 01/31/2019 1342 BP recheck: 112/64 General: no acute distress, pleasant, sitting comfortably Face: not round or red Eyes: no lid lag; normal eye movements Nose/mouth: Nose not enlarged, mucous membranes moist Neck: no supraclavicular fat pads; no thyroid enlargement, well healed surgical scar Lymphatic: no palpable cervical lymph nodes Respiratory: symmetrical chest expansion, clear to auscultation bilaterally Cardiovascular: normal S1, S2, no murmur, regular rhythm Musculoskeletal: normal gait; normal female musculature Skin: normal temperature/texture, no jaundice or pallor Neurological: no tremors, normal gait, normal reflexes Psychological: alert/oriented to person, place, time; normal affect; memory intact; normal judgement/insight Radiology Studies: Laboratory Data: TSH 2.81 Thyroglobulin antibody 155 (<61) TPO Antibody 1266 (<61) Assessment / Plan: 1) Abnormal thyroid function studies: We discussed that the elevated titers of TPO anitbodies indicates that she has risk of developing Danny's thyroiditis. Biochemically, her thyroid function is normal. We discussed that 3- 5% of patients progress to overt hypothyroidism per year. I recommend thather primary care provider check TSH ~once per year to assess for this. I recommended that in the future she hold any biotin-containing supplements for 48 hrs before blood draw, because it can potentially interfere with hormonal assays I cautioned her against excessive iodine supplementation because high doses of iodine could potential cause thyrotoxicosis A note will be sent to the referring provider Patient can return to see me on an as needed basis It was a pleasure to be involved in the care of Kalyn Burgos. If you have any questions about the management and treatment plan as outlined above, or if I can be of further assistance, please do not hesitate to contact me. Sincerely, Carrillo Flores MD Instructor Privatecreative designer Endocrinology Section [facility] documented in this encounter Plan of Treatment Upcoming Encounters Date Type Specialty Care Team Description 04/03/2022 TH Visit (TeleHealth) Neurology Pippa cJ MD [facility] [place] [address] (Wo rk) Scheduled Procedures Name Priority Associated Diagnoses Date/Time COLONOSCOPY, DIAGNOSTIC Encounter for colorectal cancer screening documented as of this encounter Visit Diagnoses Diagnosis Danny's thyroiditis Chronic lymphocytic thyroiditis documented in this encounter Care Teams Carbon Sequestration Plant Manager Relationship Specialty Start Date End Date April Cummins APRN PCP - General Internal Medicine 11/06/18 11/19/[address] [place] [address] documented as of this encounter
--- OUTSIDE RECORDS SUMMARY | 2022-02-15 02:27 | XMS_ITS | Encounter Summary ---
:1960 Author Organization [facility] [place] [address] Care Team Providers Name Role Phone April Cummins APRN Primary Care Provider Reason for Visit Reason Onset Date Comments Prior Authorization 03/18/2019 Encounter Details Date Type Department Care Team Description 03/18/2019 Telephone Gastroenterology at [facility] Mara, Prior Authorization [facility] [place] [address] Social History Tobacco Use Types Packs/Day Years Used Date Never Smoker Smokeless Tobacco: Never Used Comments: Exposure to smoking in the [place] e until the age of 16 Alcohol Use Standard Drinks/Week Comments No 0 (1 standard drink = 0.6 oz pure alcoho l) Sex Assigned at Date Recorded Not on file documented as of this encounter Miscellaneous Notes Telephone Encounter - Diane Terry LNA - 03/18/2019 2:27 PM EDT Medication Prior Authorization 4L Gastroenterology / [place] [address] Subscriber Insurance: [place] Medicaid Phone: Fax: Physician: Brandi Reyes Return Pharmacy: [facility] Fax: Medication Requested: Xifaxin Strength: 550mg Frequency: 3 times daily Disp.: 42 Refills: 0 Currently taking: Diagnosis for this medication: SIBO, IBS-D ICD-10 code: K63.89, K58.0 Prior medications trialed in this patient: Medication: Outcome/Adverse Reactions: Decision: Approved Tracking number/Case number/Reference number: Effective date: 03/28/2019 to 04/10/2019 Start: End: documented in this encounter Plan of Treatment Upcoming Encounters Date Type Specialty Care Team Description 04/03/2022 TH Visit (TeleHealth) Neurology Pippa Jc MD [facility] [place] [address] [place] [address] (Wo rk) Scheduled Procedures Name Priority Associated Diagnoses Date/Time COLONOSCOPY, DIAGNOSTIC Encounter for colorectal cancer screening documented as of this encounter Visit Diagnoses Not on filedocumented in this encounter Care Teams Chemical Cell Changer Relationship Specialty Start Date End Date April Cummins APRN PCP - General Internal Medicine 11/06/18 11/19/[address] [place] [address] documented as of this encounter
--- OUTSIDE RECORDS SUMMARY | 2022-02-15 02:27 | XMS_ITS | Encounter Summary ---
:1960 Author Organization [facility] [place] [address] Care Team Providers Name Role Phone April Cummins APRN Primary Care Provider Reason for Visit Reason Onset Date Comments Medication Refill 03/11/2019 Encounter Details Date Type Department Care Team Description 03/11/2019 Refill [facility]ology at [facility] Beth Guerra, [facility] Arleth MCKEON APRN [place], [place] [id number] [place] [address] GASTROENTEROLOGY [place] [address] (Wo rk) Social History Tobacco Use Types [...] MD [facility] [place] [address] (Wo rk) Scheduled Procedures Name Priority Associated Diagnoses Date/Time COLONOSCOPY, DIAGNOSTIC Encounter for colorectal cancer screening documented as of this encounter Visit Diagnoses Not on filedocumented in this encounter Care Teams Technical Maintenance Specialist Relationship Specialty Start Date End Date April Cummins APRN PCP - General Internal Medicine 01/13/[address] [place] [address] documented as of this encounter
--- OUTSIDE RECORDS SUMMARY | 2022-02-15 02:27 | XMS_ITS | Encounter Summary ---
:1960 [place] [address] Care Team Providers Name Role Phone PlacidoApril APRN Primary Care Provider Encounter Details Date Type Department Care Team Description 01/06/2020 Ancillary Procedure Radiology Library at [facility] [place] [address] [place] [address] [phone] (Wo rk) Social History Tobacco Use Types [...] TH Visit (TeleHealth) Neurology Pippa Jc MD [facility] [place] [address] (Wo rk) Scheduled Procedures Name Priority Associated Diagnoses Date/Time COLONOSCOPY, DIAGNOSTIC Encounter for colorectal cancer screening documented as of this encounter Procedures Procedure Name Priority Date/Time Associated Diagnosis Comme nts FILM LIBRARY Routine 01/06/2020 1:26 PM Results for this STORAGE ONLY DX EST procedure ar e in LOWER EXTREMITY the results section. documented in this encounter Results Film Library- Storage Only DX Lower Extremity (01/06/2020 1:26 PM EST) Specimen (Source) Anatomical Location Collection Method / Collectio n Time Received Time / Laterality Volume Narrative DH RAD - 01/06/2020 1:26 PM EST This exam is auto-finalizing. It's purpo se is for storage only. Adriana Nicholas MD IMG FILM LIBRARY ORDERABLES Performing Organization Address City/State/ZIP Code Phon e Number [place], [place] documented in this encounter Visit Diagnoses Not on filedocumented in this encounter Care Teams Sap Crm Developer Relationship Specialty Start Date End Date April Cummins APRN PCP - General Internal Medicine 01/06/20 05/20/[address] [place] [address] documented as of this encounter
--- OUTSIDE RECORDS SUMMARY | 2022-02-15 02:27 | XMS_ITS | Encounter Summary ---
:1960 Author Organization [facility] [place] [address] Care Team Providers Name Role Phone April Cummins APRN Primary Care Provider Reason for Visit Reason Comments Medication Refill Encounter Details Date Type Department Care Team Description 09/01/2019 Refill Allergy at [facility] Shavonne Brink MD [facility] [place] [address] ALLERGY DEPT [phone] [place], [place] [address] (Wo rk) Social History Tobacco [...] Neurology Pippa Jc MD [facility] [address] [place] [address] (Wo rk) Scheduled Procedures Name Priority Associated Diagnoses Date/Time COLONOSCOPY, DIAGNOSTIC Encounter for colorectal cancer screening documented as of this encounter Visit Diagnoses Not on filedocumented in this encounter Care Teams Induction Coordination Power Engineer Relationship Specialty Start Date End Date April Cummins APRN PCP - General Internal Medicine 11/06/18 11/19/19 Aracely [facility] [place] [id number] documented as of this encounter
--- OUTSIDE RECORDS SUMMARY | 2022-02-15 02:27 | XMS_ITS | Encounter Summary ---
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 BUN 9 8 - 18 mg/dL [facility] LABORATORY Creatinine 0.69 (L) 0.70 - 1.20 mg/dL [facility] LABORATORY Sodium 137 135 - 145 mmol/L [facility] LABORATORY Potassium 4.3 3.5 - 5.0 mmol/L [facility] LABORATORY Comment: Please note: ??Patients with WBC >100,00 0 may have falsely elevated Potassium levels. ??For accurate Potassium quantif ication in these patients send serum separator tube (gold top) for subsequent determinations. ??Contact the Clinical Chemistry Laboratory if there are any qu estions. Chloride 100 98 - 107 mmol/L [facility] LABORATORY CO2 29 22 - 31 mmol/L [facility] LABORATORY Anion Gap 8 5 - 15 mmol/L [facility] LABORATORY Calcium 8.8 8.5 - 10.5 mg/dL [facility] LABORATORY Estimated GFR 94 >=60 mL/min/1.73 m?? [facility] LABORATORY Comment: The eGFR was calculated using the CKD-EP I equation. As with all creatinine based estimates of kidney function, eGFR values calculated with the CKD-EPI equation are not accurate in patients wi th acute kidney failure, extremes of body mass or the acutely ill. [email or web address]/[facility]f eGFR 109 >=60 mL/min/1.73 m?? [facility] LABORATORY Comment: The eGFR was calculated using the CKD-EP I equation. As with all creatinine based estimates of kidney function, eGFR values calculated with the CKD-EPI equation are not accurate in patients wi th acute kidney failure, extremes of body mass or the acutely ill. [email or web address] Specimen Anatomical Collection Method Collection Time Receive d Time (Source) Location / / Volume Laterality Blood specimen 01/09/2020 8:33 0 (specimen) AM EST 8:39 AM EST Resulting Agency Comment Spec In Lab Yolanda Still MD CHEMISTRY ORDERABLES Performing Organization Address City/State/[place] [address] XR Tibia Fibula Left [...] For questions regarding this report, please contact [facility] number below. Electronically signed by: Eriberto ashley [facility] ([phone]), at 01/08/2020 4:01 PM Yolanda Still MD IM DX ORDERABLES XR Fluoro No Rad <1Hr - OR Use (01/08/2020 2:25 PM EST) Specimen (Source) Anatomical Location Collection Method / Collectio n Time Received Time / Laterality Volume Narrative RAD - 01/08/2020 2:26 PM EST This exam is auto-finalizing. No interpr etation was done. Yolanda Still MD IM FLUORO ORDERABLES Performing Organization Address City/State/ZIP Code Phon e Number [place] (ABNORMAL) Differential, Automated (01/07/2020 1:58 AM EST) [facility] Method Time Signature Neutrophils % 91.1 % [facility] LABORATORY Neutr Abs (ANC) 6.85 (H) 1.70 - [facility] 6.10 [facility] x10(3)/[facility] L LABORATORY Lymphocytes % 6.0 % [facility] LABORATORY Lymphocytes Abs 0.4 (L) 0.9 - 3.2 [facility] x10(3)/[facility] LABORATORY Monocytes % 2.4 % [facility] LABORATORY Monocyte Abs 0.2 (L) 0.3 - 0.9 [facility] x10(3)/[facility] LABORATORY Eosinophils % 0.0 % [facility] LABORATORY Eosinophils Abs 0.0 0.0 - 0.4 [facility] x10(3)/[facility] LABORATORY Basophils % 0.1 % [facility] LABORATORY Basophils Abs 0.0 0.0 - 0.1 [facility] x10(3)/[facility] LABORATORY Immature Gran % 0.40 % [facility] LABORATORY Comment: Immature granulocytes(IG's)percentage an d absolute count will include metamyelocytes, myelocytes, and promyelo cytes. Blood smears from CBCs yielding IG's will be scanned manually for concor dance. If this scan disagrees with the automated IG or if promyelocytes are not ed, a manual differential will be performed. Elda Gran Abs 0.03 0.00 - 0.04 x10(3)/[facility] LABORATORY Specimen Anatomical Collection Method Collection Time Receive d Time (Source) Location / / Volume Laterality Blood specimen 01/07/2020 1:58 0 (specimen) AM EST 2:27 AM EST Resulting Agency Comment Spec In Lab Judd Lyon MD HEMATOLOGY ORDERABLES Performing Organization Address City/State/[place] [address] (ABNORMAL) Hemogram (01/07/2020 1:58 AM EST) Analysis Performed At Patho logist Time Signature WBC 7.5 4.0 - 9.5 [facility] x10(3)/[facility] LABORATORY RBC 3.17 (L) 4.00 - [facility] 5.21 [facility] x10(6)/[facility] LABORATORY Hemoglobin 9.8 (L) 11.7 - [facility] 15.5 gm/dL [facility] LABORATORY Hematocrit 30.4 (L) 35.7 - [facility] 45.8 % [facility] LABORATORY MCV 95.9 (H) 82.6 - [facility] 94.4 [facility] LABORATORY MCH 30.9 27.1 - [facility] 32.0 pg [facility] LABORATORY MCHC 32.2 31.7 - [facility] 35.0 gm/dL [facility] LABORATORY Platelets 195 145 - 357 [facility] x10(3)/[facility] LABORATORY RDWSD 48.6 (H) 37.0 - [facility] 46.0 [facility] LABORATORY RDWCV 13.6 11.5 - [facility] 14.1 % [facility] LABORATORY MPV 10.2 7.6 - 12.9 [facility] LABORATORY nRBC % Auto 0.0 % [facility] LABORATORY nRBC Abs Auto 0.000 0.000 - [facility] 0.000 [facility] x10(3)/[facility] LABORATORY Specimen Anatomical Collection Method Collection Time Receive d Time (Source) Location / / Volume Laterality Blood specimen 01/07/2020 1:58 0 (specimen) AM EST 2:27 AM EST Resulting Agency Comment Spec In Lab Judd Lyon MD HEMATOLOGY ORDERABLES Performing Organization Address City/State/[place] [address] Basic Metabolic Panel (non-fasting) (01/07/2020 1:58 AM EST) P athologist Signature Glucose Lvl 150 65 - [address] [facility] mg/dL [facility] LABORATORY Comment: Diabetes: >=200 mg/dL plus symp toms BUN 9 8 - 18 mg/dL [facility] LABORATORY Creatinine 0.78 0.70 - 1.20 mg/dL [facility] LABORATORY Sodium 135 135 - 145 mmol/L [facility] LABORATORY Potassium 3.8 3.5 - 5.0 mmol/L [facility] LABORATORY Comment: Please note: ??Patients with WBC >100,00 0 may have falsely elevated Potassium levels. ??For accurate Potassium quantif ication in these patients send serum separator tube (gold top) for subsequent determinations. ??Contact the Clinical Chemistry Laboratory if there are any qu estions. Chloride 101 98 - 107 mmol/L [facility] LABORATORY CO2 23 22 - 31 mmol/L [facility] LABORATORY Anion Gap 11 5 - 15 mmol/L [facility] LABORATORY Calcium 8.6 8.5 - 10.5 mg/dL [facility] LABORATORY Estimated GFR 82 >=60 mL/min/1.73 m?? [facility] LABORATORY Comment: The eGFR was calculated using the CKD-EP I equation. As with all creatinine based estimates of kidney function, eGFR values calculated with the CKD-EPI equation are not accurate in patients wi th acute kidney failure, extremes of body mass or the acutely ill. [email or web address] eGFR 95 >=60 mL/min/1.73 m?? [facility] LABORATORY Comment: The eGFR was calculated using the CKD-EP I equation. As with all creatinine based estimates of kidney function, eGFR values calculated with the CKD-EPI equation are not accurate in patients wi th acute kidney failure, extremes of body mass or the acutely ill. [email or web address] Specimen Anatomical Collection Method Collection Time Receive d Time (Source) Location / / Volume Laterality Blood specimen 01/07/2020 1:58 0 (specimen) AM EST 2:27 AM EST Resulting Agency Comment Spec In Lab Yolanda Still MD CHEMISTRY ORDERABLES Performing Organization Address City/State/ZIP Code Phon e Number [place] [phone] HOSPITAL LABORATORY Drive CT Knee wo Contrast [...] r 6. 2. ??Comminuted displaced fracture of [facility] proximal fibula. Thank you for letting us participate in the care of this patient. For questions regarding this report, please contact e number below. ? Electronically signed by: Arleth Pena [facility] ([phone]), at 01/07/2020 5:53 AM Narrative 01/07/2020 5:53 AM EST EXAMINATION: CT [...] ibia fracture pre-operative planning- please scan thro [facility] entirety of tibial fracture TECHNIQUE: CT of [...] contact e number below. Electronically signed by: Arleth Pena [facility] ([phone]), at 01/07/2020 5:53 AM Yolanda Still MD IMG CT ORDERABLES XR [...] Address City/State/ZIP Code Phon e Number [facility] [place] ABORH Recheck Status (01/06/2020 6:42 PM EST) [facility] [employer] Method Time Signature ABORH Recheck Order Placed [facility] LABORATORY ABORH Type Complete [facility] LABORATORY Specimen Anatomical Collection Method Collection Time Receive d Time (Source) Location / / Volume Laterality Blood specimen 01/06/2020 6:42 0 (specimen) PM EST 6:46 PM EST Resulting Agency Comment Spec In Lab Carrillo Manley MD BLOOD BANK ORDERABLES Performing Organization Address City/[facility]/ZIP [place] [address] Antibody screen (01/06/2020 6:42 PM EST) [facility] [employer] Method Time Signature Ab Screen Negative [facility] LABORATORY Expires at 01/09/2020 [facility] 0159 on: [facility] LABORATORY Specimen Anatomical Collection Method Collection Time Receive d Time (Source) Location / / Volume Laterality Blood specimen 01/06/2020 6:42 0 (specimen) PM EST 6:46 PM EST Resulting Agency Comment Spec In Lab Carrillo Manley MD BLOOD BANK ORDERABLES Performing Organization Address City/[facility]/ZIP Code Phon e Number [address] ABO/Rh Typing (01/06/2020 6:42 PM EST) P athologist Signature ABORh Type O Pos [facility] LABORATORY Specimen Anatomical Collection Method Collection Time Receive d Time (Source) Location / / Volume Laterality Blood specimen 01/06/2020 6:42 0 (specimen) PM EST 6:46 PM EST Resulting Agency Comment Spec In Lab Carrillo Manley MD BLOOD BANK ORDERABLES Performing Organization Address City/[facility]/ZIP Code Phon e Number [address] (ABNORMAL) Differential, Automated (01/06/2020 6:41 PM EST) Patholo gist Method Time Signature Neutrophils % 80.4 % [facility] LABORATORY Neutr Abs (ANC) 6.87 (H) 1.70 - [facility] 6.10 [facility] x10(3)/[facility] LABORATORY Lymphocytes % 12.6 % [facility] LABORATORY Lymphocytes Abs 1.1 0.9 - 3.2 [facility] x10(3)/[facility] LABORATORY Monocytes % 6.1 % [facility] LABORATORY Monocyte Abs 0.5 0.3 - 0.9 [facility] x10(3)/[facility] LABORATORY Eosinophils % 0.2 % [facility] LABORATORY Eosinophils Abs 0.0 0.0 - 0.4 [facility] x10(3)/[facility] LABORATORY Basophils % 0.5 % [facility] LABORATORY Basophils Abs 0.0 0.0 - 0.1 [facility] x10(3)/[facility] LABORATORY Immature Gran % 0.20 % [facility] LABORATORY Comment: Immature granulocytes(IG's)percentage an d absolute count will include metamyelocytes, myelocytes, and promyelo cytes. Blood smears from CBCs yielding IG's will be scanned manually for concor dance. If this scan disagrees with the automated IG or if promyelocytes are not ed, a manual differential will be performed. Elda Gran Abs 0.02 0.00 - 0.04 x10(3)/[facility] LABORATORY Specimen Anatomical Collection Method Collection Time Receive d Time (Source) Location / / Volume Laterality Blood specimen 01/06/2020 6:41 0 (specimen) PM EST 6:50 PM EST Resulting Agency Comment Spec In Lab Carrillo Manley MD HEMATOLOGY ORDERABLES Performing Organization Address City/State/ZIP Code Phon e Number [place] [phone] HOSP[address] LAB[address]ORY Drive (ABNORMAL) Hemogram (01/06/2020 6:41 PM EST) Analysis Performed At Patho logist Time Signature WBC 8.6 4.0 - 9.5 [facility] x10(3)/[facility] LABORATORY RBC 3.40 (L) 4.00 - [facility] 5.21 [facility] x10(6)/[facility] LABORATORY Hemoglobin 10.6 (L) 11.7 - [facility] 15.5 gm/dL [facility] LABORATORY Hematocrit 32.5 (L) 35.7 - [facility] DEMARCO 45.8 % [facility] LABORATORY MCV 95.6 (H) 82.6 - [facility] 94.4 [facility] LABORATORY MCH 31.2 27.1 - [facility] 32.0 pg [facility] LABORATORY MCHC 32.6 31.7 - [facility] 35.0 gm/dL [facility] LABORATORY Platelets 195 145 - 357 [facility] x10(3)/[facility] LABORATORY RDWSD 47.7 (H) 37.0 - [facility] 46.0 [facility] LABORATORY RDWCV 13.6 11.5 - [facility] 14.1 % [facility] LABORATORY MPV 10.0 7.6 - 12.9 [facility] LABORATORY nRBC % Auto 0.0 % [facility] LABORATORY nRBC Abs Auto 0.000 0.000 - [facility] 0.000 [facility] x10(3)/[facility] LABORATORY Specimen Anatomical Collection Method Collection Time Receive d Time (Source) Location / / Volume Laterality Blood specimen 01/06/2020 6:41 0 (specimen) PM EST 6:50 PM EST Resulting Agency Comment Spec In Lab Carrillo Manley MD HEMATOLOGY ORDERABLES Performing Organization Address City/[facility]/ZIP Code Phon e Number [address] APTT (01/06/2020 6:41 PM EST) athologist Signature PTT 31 25 - 37 sec [facility] LABORATORY Comment: The PTT is NOT [...] Organization Address City/State/[place] [address] (ABNORMAL) Prothrombin Time (01/06/2020 6:41 PM EST) P athologist Signature PT 13.3 (H) 9.4 - 12.5 [facility] LABORATORY INR 1.2 [facility] LABORATORY Comment: An INR <2.0 indicates [...] Organization Address City/State/Z[place] [address] Basic Metabolic Panel (non-fasting) (01/06/2020 6:41 PM EST) P athologist Signature Glucose Lvl 100 65 - [address] [facility] mg/dL [facility] LABORATORY Comment: Diabetes: >=200 mg/dL plus symp toms BUN 10 8 - 18 mg/dL [facility] LABORATORY Creatinine 0.76 0.70 - 1.20 mg/dL [facility] LABORATORY Sodium 139 135 - 145 mmol/L [facility] LABORATORY Potassium 3.6 3.5 - 5.0 mmol/L [facility] LABORATORY Comment: Please note: ??Patients with WBC >100,00 0 may have falsely elevated Potassium levels. ??For accurate Potassium quantif ication in these patients send serum separator tube (gold top) for subsequent determinations. ??Contact the Clinical Chemistry Laboratory if there are any qu estions. Chloride 105 98 - 107 mmol/L [facility] LABORATORY CO2 23 22 - 31 mmol/L [facility] LABORATORY Anion Gap 11 5 - 15 mmol/L [facility] LABORATORY Calcium 8.8 8.5 - 10.5 mg/dL [facility] LABORATORY Estimated GFR 85 >=60 mL/min/1.73 m?? [facility] LABORATORY Comment: The eGFR was calculated using the CKD-EP I equation. As with all creatinine based estimates of kidney function, eGFR values calculated with the CKD-EPI equation are not accurate in patients wi th acute kidney failure, extremes of body mass or the acutely ill. http://[email or web address] eGFR 98 >=60 mL/min/1.73 m?? [facility] LABORATORY Comment: The eGFR was calculated using the CKD-EP I equation. As with all creatinine based estimates of kidney function, eGFR values calculated with the CKD-EPI equation are not accurate in patients wi th acute kidney failure, extremes of body mass or the acutely ill. [email or web address] Specimen Anatomical Collection Method Collection Time Receive d Time (Source) Location / / Volume Laterality Blood specimen 01/06/2020 6:41 0 (specimen) PM EST 6:50 PM EST Resulting Agency Comment Spec In Lab Viky Govea MD CHEMISTRY ORDERABLES Performing Organization Address City/State/ZIP Code Phon e Number [place] [phone] HOSPITAL LABORATORY Drive CT Head wo Contrast [...] e number below. ? Electronically signed by: SHANE Krause [facility] ([phone]), at 01/06/2020 5:48 PM Narrative 01/06/2020 5:48 PM EST EXAMINATION: CT [...] contact e number below. Viky Govea MD [facility] [place] ORDERABLES Film Library- Storage Only DX Pelvis (01/06/2020 3:18 PM EST) Specimen (Source) Anatomical Location Collection Method / Collectio n Time Received Time / Laterality Volume Narrative [facility] - 01/06/2020 3:18 PM EST This exam is auto-finalizing. It's purpo se is for storage only. Adriana Nicholas MD [facility] FILM LIBRARY ORDERABLES Performing Organization Address City/[facility] Phon e Number [place], [place] Film Library- Storage Only DX Chest (01/06/2020 3:17 PM EST) Specimen (Source) Anatomical Location Collection Method / Collectio n Time Received Time / Laterality Volume Narrative [facility] - 01/06/2020 3:17 PM EST This exam is auto-finalizing. It's purpo se is for storage only. Adriana Nicholas MD [facility] FILM LIBRARY ORDERABLES Performing Organization Address City/[facility] Phon e Number [place], [place] documented in this encounter Visit Diagnoses [...] HOURS, First dose on Sonal 01/08/20 at 1015, [...] Given 01/08/2020 8:30 AM EST 5 mLs vancomycin (VANCOCIN) injection Given 01/08/2020 2:19 PM EST 2 g 19- Surgical Site ONCE PRN, Starting on Sonal 01/08/20 at 1419, Until Sonal 01/08/20 at 2047, Intra-Operative (Intra-Procedure), Routine documented in this encounter Active and Recently [...] Olu López, MARLEY)0545 (Given - Provider: Olu Hernandez, MARLEY)1315 (Given - Provider: Sanjuana Solomon RN) 1,000 [...] 0 733 (New Bag - Provider: Ad South, MARLEY)0803 (Stopped - Provider: Frances Douglas, MARLEY)1449 (New [...] Hernandez RN)0901 (New Bag - Provider: Sanjuana Solomon RN)0931 (Stopped - Provider: Sanjuana Solomon RN) [...] RN - Reason: Order parameters not met)1242 (JAN Hold - Provider: Admin Adt - Reason: Transfer to a Procedural area)1347 (JAN Unhold - Provider: Admin Adt) 0901 (Given - Provider: Sanjuana Solomon RN) 40 mg, Subcutaneous, EVERY 24 HOURS SCHE DULED (Daily), First dose on Sun01/07/20 at 0900, Until Discontinued, Routine 1349 (JAN Hold - Provider: Admin Adt - Reason: Transfer to a Procedural area)1640 (MAR Unhold - Provider: Admin Adt) FLUoxetine (PROzac) [...] Provider: Admin Adt)211 (Given - Provider: Olu Hernandez, MARLEY) gabapentin (Neurontin) capsule 300 mg 11 40 (Given - Provider: Sanjuana Solomon RN)1242 ([facility] Hold - Provider: Admin Adt - Reason: Transfer to a Procedural area)1347 (MAR Unhold - Provider: Admin Adt)1349 (MAR Hold - Provider: Admin Adt - Reason: Transfer to a Procedural area) 0901 (Given - Provider: Sanjuana Solomon RN)1603 (Given - Provider: Sanjuana Solomon RN) 300 mg, Oral, 3 TIMES DAILY, First dose on Sun01/08/20 at 1015, Until Discontinued, Routine 1500 (Automatically Held - P rovider: Admin Adt)1640 ([facility] Unhold - Provider: Admin Adt)2112 (Given - [...] - Reason: Transfer to a Procedural area)1640 ([facility] Unhold - Provider: Admin Adt) Transdermal, EVERY 24 HOURS, First dose on Sun01/08/20 at 2200, Until Discontinued, Remove lidocaine 5 %(700 mg/patch) patch 2200 (Patch Removed - Provider: Olu Hernandez RN) polyethylene glycol (Miralax) packet 17 g 0900 (Not Gi matt - Provider: Frances Douglas RN - Reason: Patient/family refused)2010 (Given - Provider: Jaimie Martinez, MARLEY) 0831 (Not Given - Provider: Sanjuana Solomon RN - Reason: Order parameters not met)1242 ([facility] Hold - Provider: Admin Adt - Reason: Transfer to a Procedural area)1347 ([facility] Unhold - Provider: Admin Adt) 0901 (Given - Provider: Sanjuana Solomon RN) 17 g, Oral, 2 TIMES DAILY, First dose on Sun01/06/20 at 2315, Until Discontinued, Routine 1349 ([facility] Hold - Provider: A dmin Adt - Reason: Transfer to a Procedural area)1640 ([facility] Unhold - Provider: Admin Adt)2113 (Given - Provider: Olu Hernandez, MARLEY) senna-docusate (Pericolace) 8.6-50 mg per tablet 2 tab let 0900 (Not Given - Provider: Frances Douglas RN - Reason: Patient/family refused)2010 (Given - Provider: Jaimie Martinez, MARLEY) 0822 (Given - Provider: Sanjuana Solomon, MARLEY )1242 ([facility] Hold - Provider: Admin Adt - Reason: Transfer to a Procedural area)1347 ([facility] Unhold - Provider: Admin Adt)1349 ([facility] Hold - Provider: Admin Adt - Reason: Transfer to a Procedural area) 0901 (Given - Provider: Sanjuana Solomon RN ) 2 tablet, Oral, 2 TIMES DAILY, First dos e on Sun01/06/20 at 2315, Until Discontinued, Routine 1640 ([facility] Unhold - Provider: Admin Adt)2114 (Given - Provider: Olu Hernandez RN) sodium chloride 0.9 % (flush) flush 5 mL 0951 (Given - Provider: Frances Douglas RN)2100 (Due) 0830 (Given - Provider: Sanjuana Solomon, RN )1242 ([facility] Hold - Provider: Admin Adt - Reason: Transfer to a Procedural area)1347 ([facility] Unhold - Provider: Admin Adt)1349 ([facility] Hold - Provider: Admin Adt - Reason: Transfer to a Procedural area) 0900 (Given - Provider: Sanjuana Solomon, RN ) 5 mL, Intravenous, 2 TIMES DAILY, First dose on 01/06/20 at 2315, Until Discontinued, Routine 1640 ([facility] Unhold - Provider: Admin Adt)2114 (Given - Provider: Olu Hernandez, MARLEY) Continuous Medication Order 01/07/2020 01/08/2020 01/09/2020 lactated ringers infusion 1021 (New Bag - Provider: Kerri Diaz RN) 0021 (New Bag - Provider: Jaimie Martinez, MARLEY)0354 (Stopped - Provider: Jaimie Martinez RN - Comment: Per pt request)1242 ([facility] Hold - Provider: Admin Adt - Reason: Transfer to a Procedural area)1347 ([facility] Unhold - Provider: Admin Adt) 0810 (New Bag - Provider: Es Tamayo RN) 75 mL/hr, at 75 mL/hr, Intravenous, CONT INUOUS, Starting 01/06/20 at 1709, Until Sun01/09/20 at 1854 1349 ([facility] Hold - Provider: A dmin Adt - Reason: Transfer to a Procedural area)1519 ([facility] Unhold - Provider: Afua Ramachandran, MARLEY) PRN Medication Order 01/07/2020 01/08/2020 01/09/2020 cyclobenzaprine (Flexeril) tablet 10 mg 0047 (Given - Provider: Jaimie Martinez, MARLEY)0823 (Given - Provider: Sanjuana Solomon, MARLEY)1242 ([facility] Hold - Provider: Admin Adt - Reason: Transfer to a Procedural area)1347 ([facility] Unhold - Provider: Admin Adt) 0901 (Given - Provider: Sanjuana Solomon, RN )1315 (Given - Provider: Sanjuana Solomon, RN) 10 mg, Oral, 3 TIMES DAILY PRN, Starting Sonal 01/08/20 at 0027, Until Sun01/09/20 at 1854, Muscle spasms, Routine 1349 ([facility] Hold - Provi qamar: Admin Adt - Reason: Transfer to a Procedural area)1532 ([facility] Unhold - Provider: Afua Ramachandran, MARLEY) Dextromethorphan HBr 5 mg/5 mL oral syrup 15 mg 0350 (Given - Provider: Jaimie Martinez, MARLEY)1242 ([facility] Hold - Provider: Admin Adt - Reason: Transfer to a Procedural area)1347 ([facility] Unhold - Provider: Admin Adt)1349 ([facility] Hold - Provider: Admin Adt - Reason: Transfer to a Procedural area) 15 mg, Oral, EVERY 4 HOURS PRN, Starting Sonal 01/08/20 at 0316, Until 01/09/20 at 1854, Cough, For resetting opioid receptors, give with dilaudid., Routine 1640 ([facility] Unhold - Provider: Admin Adt) fentaNYL (PF) [...] PRN, 1 dose, S tarting Sun01/07/20 at 0047, Until Sun01/07/20 at 010, Pain, For pain not controlled with current medications, Routine HYDROmorphone (DILAUDID) injection 0.4 mg (COMPLETED) 1817 (Given - Provider: Frances Douglas, MARLEY) 0.4 mg, Intravenous, ONCE PRN, 1 dose, S tarting Sun01/07/20 at 1801, Until Sun01/07/20 at 181, Pain, For pain not controlled with current medications, Routine HYDROmorphone (DILAUDID) injection 0.4 mg (COMPLETED) 2246 (Given - Provider: Jaimie Martinez RN) 0.4 mg, Intravenous, ONCE PRN, 1 dose, S tarting Sun01/07/20 at 2205, Until Sun01/07/20 at 2247, Pain, For pain not controlled with current medications, Routine HYDROmorphone (DILAUDID) injection 0.4 mg (COMPLETED) 335 (Given - Provider: Jaimie Martinez, MARLEY) 0.4 mg, Intravenous, ONCE PRN, 1 dose, S tarting Sun01/08/20 at 0317, Until Sun01/08/20 at 0336, Pain, For pain not controlled with current medications, Routine HYDROmorphone (DILAUDID) injection 0.5 mg (COMPLETED) 17 (Given - Provider: Jaimie Martinez, MARLEY) 0.5 mg, Intravenous, ONCE PRN, 1 dose, S tarting Sun01/07/20 at 2359, Until Sonal 01/08/20 at 0018, Pain, For pain not controlled with current medications, Routine HYDROmorphone (DILAUDID) injection 0.5 mg 1242 ([facility] Hold - Provider: Admin Adt - Reason: Transfer to a Procedural area)1347 ([facility] Unhold - Provider: Admin Adt)1349 ([facility] Hold - Provider: Admin Adt - Reason: Transfer to a Procedural area)1640 ([facility] Unhold - Provider: Admin Adt) 0.5 mg, Intravenous, ONCE PRN, 1 dose, S tarting Sun01/08/20 at 0818, Until Sun01/09/20 at 1854, Pain, For pain not controlled with current medications, Routine HYDROmorphone (Dilaudid) tablet 2 mg(Linked Group 2) 0 853 (Given - Provider: Frances Douglas RN)0950 (Given - Provider: Frances Douglas RN)1448 (See Alternative - Provider: Frances Douglas RN)2011 (See Alternative - Provider: Jaimie Martinez RN) 0020 (See Alternative - Provider: Yan Martinez RN)0431 (See Alternative - Provider: Jaimie Martinez RN)0823 (See Alternative - Provider: Sanjuana Solomon RN)1242 ([facility] Hold - Provider: Admin Adt - Reason: Transfer to a Procedural area) 0545 (See Alternative - Provider: Elizabeth Hernandez RN)1032 (See Alternative - Provider: Es Tamayo, MARLEY) 2 mg, Oral, EVERY 4 HOURS PRN, Starting 01/07/20 at 0806, Until Sun01/09/20 at 1854, Pain, for mild pain (1-3), May give an additional 2 mg once if pain not relieved in 30-60 minutes., Routine 1347 ([facility] Unhold - Provider: Admin Adt)1349 ([facility] Hold - Provider: Admin Adt - Reason: Transfer to a Procedural area)1519 ([facility] Unhold - Provider: Afua Ramachandran RN)2233 (See Alternative - Provider: Oul Hernandez RN) HYDROmorphone (Dilaudid) tablet 4 mg(Linked Group 2) 0 853 (See Alternative - Provider: Frances Douglas RN)0950 (See Alternative - Provider: Frances Douglas RN)1448 (Given - Provider: Frances Douglas RN)2012 (See Alternative - Provider: Jaimie Maritnez RN) 0020 (See Alternative - Provider: Yan Martinez RN)0431 (See Alternative - Provider: Jaimie Martinez RN)0823 (See Alternative - Provider: Sanjuana Solomon RN)1242 ([facility] Hold - Provider: Admin Adt - Reason: Transfer to a Procedural area) 0545 (See Alternative - Provider: Eilzabeth Hernandez RN)1032 (See Alternative - Provider: Es Tamayo, MARLEY) 4 mg, Oral, EVERY 4 HOURS PRN, Starting 01/07/20 at 0806, Until Sun01/09/20 at 1854, Pain, for moderate pain (4-6), May give an additional 2 mg once if pain not relieved in 30-60 minutes., Routine 1347 ([facility] Un old - Provider: Admin Adt)1349 ([facility] Hold - Provider: Admin Adt - Reason: Transfer to a Procedural area)1519 ([facility] Unhold - Provider: Afua Ramachandran RN)2233 (See Alternative - Provider: Olu Hernandez RN) HYDROmorphone (Dilaudid) tablet 6 mg(Linked Group 2) 0 853 (See Alternative - Provider: Frances Douglas, MARLEY)0950 (See Alternative - Provider: Frances Douglas RN)1448 (See Alternative - Provider: Frances Douglas RN)2011 (Given - Provider: Jaimie Martinez RN) 0020 (Given - Provider: Jaimie lyon RN)0431 (Given - Provider: Jaimie Martinez RN)0823 (Given - Provider: Sanjuana Solomon RN)1242 ([facility] Hold - Provider: Admin Adt - Reason: Transfer to a Proc edural area) 0545 (Given - Provider: Olu López, MARLEY)1032 (Given - Provider: Es Tamayo RN) 6 mg, Oral, EVERY 4 HOURS PRN, Starting Sun01/07/20 at 0806, Until Sun01/09/20 at 1854, Pain, for severe pain (7-10), May give an additional 2 mg once if pain not relieved in 30-60 minutes., Routine 1347 ([facility] Unho ld - Provider: Admin Adt)1349 ([facility] Hold - Provider: Admin Adt - Reason: Transfer to a Procedural area)1519 ([facility] Unhold - Provider: Afua Ramachandran RN)2233 (Given - Provider: Olu Hernandez RN) lidocaine (XYLOCAINE) 10 mg/mL (1 %) injection 3 mg 1242 ([facility] Hold - Provider: Admin Adt - Reason: Transfer to a Procedural area)1347 ([facility] Unhold - Provider: Admin Adt)1349 ([facility] Hold - Provider: Admin Adt - Reason: Transfer to a Procedural area)1640 ([facility] Unhold - Provider: Admin Adt) 3 mg (0.3 mL), Subcutaneous, ONCE PRN, 1 dose, Starting Sun01/06/20 at 2249, Until Sun01/09/20 at 1854, for discomfort with PIV insertion, Routine LORazepam (Ativan) tablet 0.5 mg (COMPLETED) 101 (Giv en - Provider: Lily Oakley, MARLEY) 0.5 mg, Oral, ONCE PRN, 1 dose, Starting Sun01/07/20 at 0047, Until 2/12/20 at 0102, Anxiety, Routine midazolam (PF) (VERSED) injection 1 mg (CANCELED) 1248 (Given - Provider: Mirian Martinez, RN)1253 (Given - Provider: Mirian Martinez, MARLEY) 1 mg, Intravenous, EVERY 5 MIN PRN, Star ting Sonal 01/08/20 at 1243, Until Sonal 01/08/20 at 1609, Sleep, or prior to injection of local anesthetic, Hold for delirium/agitation. (Maximum dose 5 mg)., Day of Surgery (Day of Procedure), Routine ondansetron (ZOFRAN) injection 4 mg 1242 ([facility] Hold - Provider: Admin Adt - Reason: Transfer to a Procedural area)1347 ([facility] Unhold - Provider: Admin Adt)1349 ([facility] Hold - Provider: Admin Adt - Reason: Transfer to a Procedural area)1640 ([facility] Unhold - Provider: Admin Adt) 4 mg, Intravenous, EVERY 8 HOURS PRN, St arting 01/06/20 at 2249, Until Sun01/09/20 at 1854, Nausea, If multiple antiemetics are ordered, use ondansetron first, prochlorperazine second, metoclopramide third. oxyCODONE (Roxicodone) tablet 15 mg (CANCELED) 0339 (G iven - Provider: Ad South, MARLEY) 15 mg, Oral, EVERY 4 HOURS PRN, Starting 01/06/20 at 2249, Until 01/07/20 at 0808, Pain, severe pain (7-10), For severe pain (7-10). Do not exceed 15 mg in 4 hours. If pain not relieved, call provider., Routine sodium chloride 0.9 % (flush) flush 5-20 mL 1242 ([facility] Hold - Provider: Admin Adt - Reason: Transfer to a Procedural area)1347 ([facility] Unhold - Provider: Admin Adt)1349 ([facility] Hold - Provider: Admin Adt - Reason: Transfer to a Procedural area)1640 ([facility] Unhold - Provider: Admin Adt) 5-20 mL, Intravenous, EVERY 1 MIN PRN, S tarting 01/06/20 at 2249, Until Sun01/09/20 at 1854, flush, [...]
Routine documented in this encounter Care Teams Ux Developer Designer Relationship Specialty Start Date End Date April Cummins, KALE PCP - General Internal Medicine 01/06/20 05/20/[address] [place] [address] documented as of this encounter
--- OUTSIDE RECORDS SUMMARY | 2022-02-15 02:27 | XMS_ITS | Encounter Summary ---
:1960 Author Organization [facility] [place] [address] Care Team Providers Name Role Phone April Cummins APRN Primary Care Provider Encounter Details Date Type Department Care Team Description 03/11/2019 [place] [facility] [place] [facility] [place] [address] Social History Tobacco Use Types Packs/Day Years Used Date Never Smoker Smokeless Tobacco: Never Used Comments: Exposure to smoking in the [place] until the age of 16 Alcohol Use Standard Drinks/Week Comments No 0 (1 standard drink = 0.6 oz pure alcoho l) Sex Assigned at Date Recorded Not on file documented as of this encounter Miscellaneous Notes Telephone Encounter - Namrata Robert RN - 03/11/2019 9:16 AM EDT Patient calls the office stating that she has not seen Beth for a little while and has been doing and feeling well up until about one month ago when she started experiencing really bad gas and explosive diarrhea. Patent states that she was using VSL#3 and stopped this for a while and is now being told by her pharmacy that they can not get VSL #3. Patient to vanessa her pharmacy to see if this is an insurance coverage issue or if they are really not able to get this. documented in this encounter Plan of Treatment Upcoming Encounters Date Type Specialty Care Team Description 04/03/2022 TH Visit (TeleHealth) Neurology Pippa Jc MD [facility] [address] [place], [place] [address] (Wo rk) Scheduled Procedures Name Priority Associated Diagnoses Date/Time COLONOSCOPY, DIAGNOSTIC Encounter for colorectal cancer screening documented as of this encounter Visit Diagnoses Not on filedocumented in this encounter Care Teams Water Attendant Relationship Specialty Start Date End Date April Cummins APRN PCP - General Internal Medicine 11/06/18 11/19/[address] [place] [address] documented as of this encounter
--- OUTSIDE RECORDS SUMMARY | 2022-02-15 02:27 | XMS_ITS | Encounter Summary ---
:1960 [place] [address] Care Team Providers Name Role Phone April Cummins APRN Primary Care Provider Encounter Details Date Type Department Care Team Description 01/06/2020 Ancillary Procedure [place] [address] Social History Tobacco Use Types Packs/Day [...] TH Visit (TeleHealth) Neurology Pippa Jc MD [place], [place] [address] (Wo rk) Scheduled Procedures Name Priority Associated Diagnoses Date/Time COLONOSCOPY, DIAGNOSTIC Encounter for colorectal cancer screening documented as of this encounter Procedures Procedure Name Priority Date/Time Associated Diagnosis Comme nts FILM LIBRARY STAT 01/06/2020 3:17 PM Results for this STORAGE ONLY DX EST procedure ar e in CHEST the results section. documented in this encounter Results Film Library- Storage Only DX Chest (01/06/2020 3:17 PM EST) Specimen (Source) Anatomical Location Collection Method / Collectio n Time Received Time / Laterality Volume Narrative RAD - 01/06/2020 3:17 PM EST This exam is auto-finalizing. It's purpo se is for storage only. Adriana Nicholas MD IMG FILM LIBRARY ORDERABLES Performing Organization Address City/State/ZIP Code Phon e Number [place], [place] documented in this encounter Visit Diagnoses Not on filedocumented in this encounter Care Teams Youth Associate Relationship Specialty Start Date End Date April Cummins APRN PCP - General Internal Medicine 01/06/20 05/20/[address] [place] [address] documented as of this encounter
--- OUTSIDE RECORDS SUMMARY | 2022-02-15 02:28 | XMS_ITS | Encounter Summary ---
:1960 Author Organization [facility] [address] Care Team Providers Name Role Phone Connie Gayle ND Primary Care Provider Encounter Details Date Type Department Care Team Description 02/16/2016 Clinical Support [place] [address] Social History Tobacco Use Types Packs/Day Years Used Date Never Smoker Smokeless Tobacco: Never Used Alcohol Use Standard Drinks/Week Comments No 0 (1 standard drink = 0.6 oz pure alcoho l) Sex Assigned at Date Recorded Not on file documented as of this encounter Plan of Treatment Upcoming Encounters Date Type Specialty Care Team Description 04/03/2022 TH Visit (TeleHealth) Neurology Pippa Jc MD [facility] [address] [place] [address] (Wo rk) Scheduled Procedures Name Priority Associated Diagnoses Date/Time COLONOSCOPY, DIAGNOSTIC Encounter for colorectal cancer screening documented as of this encounter Visit Diagnoses Not on filedocumented in this encounter Care Teams Scheduler Conveyor Relationship Specialty Start Date End Date Connie Gayle ND PCP - General Naturopathic Medicine 01/25/16 09/27/17 documented as of this encounter
--- OUTSIDE RECORDS SUMMARY | 2022-02-15 02:28 | XMS_ITS | Encounter Summary ---
:1960 Author Organization [facility] [place] [address] Care Team Providers Name Role Phone April Cummins APRN Primary Care Provider Reason for Visit Reason Comments Allergies Consultation (Routine) - Closed Specialty Diagnoses / Procedures Referred By Contact Refer red To Contact Allergy Diagnoses ENVIRONMENTAL ALLERGY, HX April Burdick APRN [facility] All[facility] [address] [place] [phone] Referral ID Status Reason Start Date Expiration Date Visits V isits Requested Authorized [id number] Closed Consult, 01/20/2019 01/20/2020 1 1 [facility] Encounter Details Date Type Department Care Team Description 01/31/2019 Office Visit Allergy at [facility] Shavonne Brink MD Allergic rhinitis, unspecified seasonali ty, unspecified trigger; [facility]; Drive DR Janina lawson [place], [place] ALLERGY DEPT [phone] [place] [address] Social History Tobacco Use Types [...] Sign Reading Time Taken Comments Blood Pressure 108/50 01/31/2019 1:42 PM EST Pulse 64 01/31/2019 1:42 PM EST Temperature - - Respiratory Rate - - Oxygen Saturation 100% 01/31/2019 1:42 PM EST Inhaled Oxygen Concentration - - Weight 59 kg (130 lb) 01/31/2019 1:42 PM EST Height 167.6 cm (5' 6) 01/31/2019 1:42 PM EST Body Mass Index 20.98 01/31/2019 1:42 PM EST documented in this encounter Patient Instructions Patient InstructionsShavonne Brink MD - 01/31/2019 2:00 PM EST Allergy testing positive to grass pollen (summer allergen). Borderline to maple tree (not syrup), weeds, cockroach. Tips on avoiding allergens below. - try azelastine 2 sprays each nostril at night. Can use up to twice a day if you find it helpful Your neck rash sounds like it could have been a problem with your salivary gland. I think this was unlikely to be an allergic problem. The rash you describe sounds like it could have been a contact reaction. These are diagnosed in dermatology. Talk to your primary care doctor about a referral if this interests you. Sometimes contact allergies can cause hand eczema as well. Return as needed Allergen avoidance: Cockroach: - reduce access to foods by tightly sealing trash cans and food containers - avoid leaving dirty dishes in the sink and crumbs or spills on counters and floors - seal cracks that allow roaches into the home and keep the home dry - do not bring food into the bedroom - use cockroach baits and traps rather than sprays, which can irritate allergies Pollens (grass, tree, and/or weeds): - keep windows closed during high pollen counts - shower before bed, especially if you have been outside - keep pets out of the bedroom (they track in pollen) - avoid line-drying clothes documented in this encounter Progress Notes Shavonne Brink MD - 01/31/2019 2:00 PM EST CC: allergies HPI: Kalyn Darnell Case is a 58 y.o. female with a PMH of nepholithiasis presenting for evaluation of allergies at the request of April Cummins. The patient reports that she has lived in this area since 2013. [place] throat, itchy eyes and ears. Here she reports stuffy nose at night. She also complains of a rash on her neck. She developed bilateral erythema and swelling under her jaw and the area involved was itchy and painful and it lasted about 4 days. Also c/o a rash that occurred on her arm, possibly related to putting on perfume. It left a clearlydemarcated spot. She gets eczema on her hands and she is not sure of the trigger but thinks it is sugar. She avoids wheat and milk which she believes triggers for IBS and may cause eczema. She would like to know her allergies ROS is per HPI otherwise negative. Patient Active Problem List Diagnosis Code ??? [...] incontinence, female) N39.3 ??? Cystocele, midline N81.11 Past Medical History: Diagnosis Date ??? Anxiety ??? Depression ??? IBS (irritable bowel syndrome) ??? Nephrolithiasis ??? No known health problems ??? Sepsis due to urinary tract infection Past Surgical History: Procedure Laterality Date ??? APPENDECTOMY ??? BACK SURGERY ??? SECTION ??? SHOULDER ARTHROSCOPY ??? TIBIA FRACTURE SURGERY ??? URETER STENT PLACEMENT ??? lactobacillus rhamnosus, GG, (CULTURELLE) 10 billion cell Capsule ??? b complex vitamins Capsule ??? acetylcysteine (NAC ORAL) ??? GLUTATHIONE ORAL ??? IODINE ORAL ??? FLUoxetine (PROZAC) 10 mg Tablet ??? Ciclesonide (OMNARIS) 50 mcg Merom, Non-Aerosol ??? HYDROcodone-ibuprofen (VICOPROFEN) 7.5-200 mg Tablet Allergies Allergen Reactions ??? Wheat Other (See Comments) Gastrointestinal distress Family History Problem Relation Age of Onset ??? Cancer Mother ??? Asthma Mother ??? Allergic Rhinitis Mother ??? Chronic Obstructive Pulmonary Disease Mother ??? Chronic Obstructive Pulmonary Disease Father ??? Food Allergy Other Social History Socioeconomic History ??? Marital status: [...] file Gets together: Not on file Attends jehovah's witness service: Not on file Active member of [...] Social History Narrative ??? 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 There is no central a/c. There is not a woodstove. The patienthas seen mice around the home. There is known mold or mildew in the basement last summer. The patient does not live on a farm. Pets: none PHYSICAL EXAM: BP 108/50 Pulse 64 Ht 167.6 cm (5' 6) Wt 59 kg (130 lb) SpO2 100% BMI 20.98 kg/m?? Gen: AAOx3, no acute distress HEENT: Tympanic membranes clear, no lesions, erythema, or drainage. Conjunctiva not injected. Nasal passages show dry pink turbinates bilaterally. OP clear without erythema or cobblestoning. NECK: supple, no lymphadenopathy CVS: RRR, no m/r/g LUNGS: CTAB, no wheezing or rales ABD: soft, non-tender, non-distended SKIN: no rashes EXTREMITIES: warm and well-perfused, no edema PHOTOS: - of neck: erythema symmetric on submandibular area with protruding mass - of arm: erythematous patch above antecubital fossa with fainter patch in same shape on opposite side of fossa on lower arm - Neither photo looks like urticaria or angioedema SKIN TESTING: INHALANT SKIN TESTING Histamine (9, 32) Saline (0, 2) Glycerine (3, 4) D. Kilgore (-), D. Pteronyssinus (-) Cat (-), Dog (-), Cockroach (+/-) Juan F Grass (+), [place] Cuervo (+), Orchard Grass (+), Shorty Grass (+), Bermuda (-) Antonella (-), Mohan (-), Birch (-), Black [place] (-), Many, Eastern Red (-), Elm (-) Saint Marie (-), Maple (+/-), Inverness (-), Bamberg (-), Columbus (-), East. [place] (-) Cocklebur (+/-), Mugwort (-), Pigweed (-), Ragweed, giant (+/-), Sheep Middle[place] (- ), Plantain (+/-) Aspergillus Mix (-), Alternaria (-), Penicillium (-), Cladosporium (-) Helminthosporium (-), Curvularia (-), Epicoccum (-), Fusarium (-), Mucor (-) Stemphyllium Solani (-), A. Fumigatus (-) Please see scanned document for full details on sizes of wheals and flares if not indicated above. ASSESSMENT AND PLAN: 58 y.o. female with allergic rhinitis and rash of uncertain etiology. Allergy testing positive to grass pollen (summer allergen). Borderline to maple tree (not syrup), weeds, cockroach. Tips on avoiding allergens given. Recommended: - try azelastine 2 sprays each nostril at night. Can use up to twice a day if you find it helpful Neck rash does not look like angioedema. Given location, pain, and protrusion of mass under jaw, plus dry mucous membranes, would suggest sialadenitis. Though this is not usually bilateral, viral or autoimmune causes could be bilateral. While I am not sure what was going on at the time she experiencedthis, I don't think it is allergic in nature and should f/u with PCP for this. The arm rash sounds like it could have been a contact reaction. Counseled these are diagnosed in dermatology and she can talk to her primary care doctor about a referral if this interests her. Sometimes contact allergies can cause hand eczema as well, which she also reports. This would not be explained by her environmental allergies. Return as needed Shavonne Brink MD documented in this encounter Plan of Treatment Upcoming Encounters Date Type Specialty Care Team Description 04/03/2022 TH Visit (TeleHealth) Neurology Pippa Jc MD [facility] [address] [place] [address] (Wo rk) Scheduled Procedures Name Priority Associated Diagnoses Date/Time COLONOSCOPY, DIAGNOSTIC Encounter for colorectal cancer screening documented as of this encounter Procedures Procedure Name Priority Date/Time Associated Diagnosis Comme nts ALLERGY SCAN 02/21/2019 12:00 AM Results for this EDT procedure are i n the results section . documented in this encounter Results SCAN DOC: ALLERGY (02/21/2019 12:00 AM EDT) Narrative 02/21/2019 12:00 AM EDT This result has an attachment that is no t available. Ordered by an unspecified provider. Scanning Provider MEDIA MGR SCAN EXT ORDR/RSLT documented in this encounter Visit Diagnoses Diagnosis Allergic rhinitis, unspecified seasonali ty, unspecified trigger Rash Rash and other nonspecific skin eruption Neck mass Swelling, mass, or lump in head and neck documented in this encounter Care Teams Home Staging Specialist Relationship Specialty Start Date End Date April Cummins APRN PCP - General Internal Medicine 11/06/18 11/19/[address] [place] [address] documented as of this encounter
--- OUTSIDE RECORDS SUMMARY | 2022-02-15 02:28 | XMS_ITS | Encounter Summary ---
:1960 Author Organization [facility] [place] [address] Care Team Providers Name Role Phone Connie Gayle Gus SHEETS Primary Care Provider Reason for Referral Diagnostic Test (Routine) - Closed Specialty Diagnoses / Procedures Referred By Contact Refer red To Contact Radiology Diagnoses Displaced fracture of distal end of right ulna, jose Dominguez, Eusebio Velasquez MD [facility] Rad Mri Procedures MRI Cervical Spine WO Contrast (GENERIC) [facility] [place] [address] [place] [address] Referral ID Status Reason Start Date Expiration Date Visits V isits Requested Authorized [id number] Closed Specialty 04/05/2016 07/04/2016 1 1 Service Requested Reason for Visit Reason Comments Right Wrist Fracture 01/13/2016 Ulna fx Encounter Details Date Type Department Care Team Description 04/05/2016 Office Visit Orthopaedics at [facility] Alberto, Displaced fracture of [facility] Eusebio Velasquez MD [place] [address] [place] [address] ORTHOPAEDIC SURGERY [place], [place] [address] Social History Tobacco Use Types Packs/Day Years Used Date Never Smoker Smokeless Tobacco: Never Used Alcohol Use Standard Drinks/Week Comments No 0 (1 standard drink = 0.6 oz pure alcoho l) Sex Assigned at Date Recorded Not on file documented as of this encounter Last Filed Vital Signs Vital Sign Reading Time Taken Comments Blood Pressure 113/74 04/05/2016 10:09 AM EDT Pulse 46 04/05/2016 10:09 AM EDT Temperature - - Respiratory Rate - - Oxygen Saturation - - Inhaled Oxygen Concentration - - Weight 54.4 kg (120 lb) 04/05/2016 10:09 AM EDT pt repo rted Height 167.6 cm (5' 6) 04/05/2016 10:09 AM EDT pt repo rted Body Mass Index 19.37 04/05/2016 10:09 AM EDT documented in this encounter Progress Notes Eusebio Dominguez MD - 04/05/2016 10:15 AM EDT Prior Hx This 55 yo white female fell on the ice and hit her R arm against her car door and had immediate pain and had X Rays at [facility] which showed a mildly comminuted and mildly displaced and shortened distal 1/3 ulnar fracture She had a placement of a cast by Dr Martinez but she was unable to tolerate that and he placed her in long arm splints ?? X rays in the splints show there may have been a mild degree of further displacement but the over all alignment is still very acceptable - not much in the way of early callus ?? We decided to place her in a long arm cast and when apply that on the last visit she fainted and needed to go to the ER where they felt she had a vaso vagal episode ?? Since the cast was still soft while she fainted as we got her recumbent we were able to mold the cast at that time and actually improved the alignment with that When last seen we went with a short arm cast Today she comes in her wrist brace Today X Rays show pretty solid ocallus ROS - negative for cardiac resp ENT GI Gu Endo Skin ?? Smoking and ETOH - negative PE - WD thin white female in NAD - alert and oriented x 3 Skin - clear R wrist - she is no longer painful at the fx site and somewhat stiff at the elbow NV check - she has had some degree of pre exisiting CTS and may have had more symptoms with the swelling but she has sensation over all fingers and can oppose the thumb She is not tender at the fracture site A: Solid?? Healing distal 1/3 ulnar fx - mildly displaced in acceptable alignment Plan We will wean her from wrist brace and will not plan on repeat X Rays She has an MRI of her C Spine set up and she needs to have follow up from that I will see her back and then perhaps have her see Neurosurgery if needed She will continue with OT for the wrist documented in this encounter Plan of Treatment Upcoming Encounters Date Type Specialty Care Team Description 04/03/2022 TH Visit (TeleHealth) Neurology Pippa Jc MD [facility] [address], [place] [address] (Wo rk) Scheduled Procedures Name Priority Associated Diagnoses Date/Time COLONOSCOPY, DIAGNOSTIC Encounter for colorectal cancer screening documented as of this encounter Results MRI Cervical Spine WO Contrast (GENERIC) (04/14/2016 8:09 PM EDT) Anatomical Region Laterality Modality C-spine Magnetic Resonance Specimen (Source) Anatomical Location Collection Method / Collectio n Time Received Time / Laterality Volume Impressions 04/16/2016 9:05 AM EDT 1. ??Focal myelomalacia at C4-5. 2. ??On the right, uncovertebral osteoph yte projecting within the C3-4 neural foramen may contact the exiting right C4 nerve root. There is also moderate to severe right C6-7 neural foraminal narro wing. Narrative 04/16/2016 9:05 AM EDT EXAMINATION: MRI CERVICAL SPINE WO CONTRAST CLINICAL HISTORY: Has had prior C spine at C4-6 in past and now R sided arm and hand pain TECHNIQUE: MRI cervical spine performed without contrast COMPARISON: Cervical spine radiographs FINDINGS: Alignment is unchanged with slight reve rsal at C3. C4-C6 ACDF. The regional bone marrow is normal in signal. The jules tebral body heights are maintained. At the C4-5 level, there is focal signal al teration and decreased caliber of the cord consistent with myelomalacia. Other montague, this cervical cord is normal in signal and caliber. The prevertebral sof t tissues are normal in thickness. Findings at individual levels: C2-C3: ??Normal. C3-C4: ??Reversal of curvature mild to m oderately narrows the spinal canal. Right larger than left uncovertebral osteophyt es. Osteophytic spur projects into the center of the right neural foramen and a ppears to contact the exiting C4 nerve root. There is mild left neural foramina l narrowing. C4-C5: ??Mild facet arthropathy. No sign ificant spinal canal narrowing. Mild right neural foraminal narrowing. Left-s ided uncovertebral arthropathy contributes to moderate neural foraminal narrowing. ? C5-C6: ??Mild facet arthropathy and left larger than right uncovertebral osteophytes contribute to moderate to se rafael left and mild right neural foraminal narrowing. No significant spin al canal narrowing. C6-C7: ??Posterior disc osteophyte compl ex mildly narrows the spinal canal. Prominent uncovertebral osteophytes and mild facet arthropathy contribute to moderate to severe bilateral neural fora mariola narrowing. C7-T1: ??Small central disc protrusion m ildly indents the ventral thecal sac. Small left uncovertebral osteophytes mil dly narrow the left neural foramen. No significant right neural foraminal narro wing. Procedure Note Carmen Noel MD - 04/16/2016Form atting of this note might be different from the original. EXAMINATION: MRI CERVICAL SPINE WO CONTR AST CLINICAL HISTORY: Has had prior C spine at C4-6 in past and now R sided arm and hand pain TECHNIQUE: MRI cervical spine performed without contrast COMPARISON: Cervical spine radiographs FINDINGS: Alignment is unchanged with slight reve rsal at C3. C4-C6 ACDF. The regional bone marrow is normal in signal. The jules tebral body heights are maintained. At the C4-5 level, there is focal signal al teration and decreased caliber of the cord consistent with myelomalacia. Other montague, this cervical cord is normal in signal and caliber. The prevertebral sof t tissues are normal in thickness. Findings at individual levels: C2-C3: Normal. C3-C4: Reversal of curvature mild to mo derately narrows the spinal canal. Right larger than left uncovertebral osteophyt es. Osteophytic spur projects into the center of the right neural foramen and a ppears to contact the exiting C4 nerve root. There is mild left neural foramina l narrowing. C4-C5: Mild facet arthropathy. No signi ficant spinal canal narrowing. Mild right neural foraminal narrowing. Left-s ided uncovertebral arthropathy contributes to moderate neural foraminal narrowing. C5-C6: Mild facet arthropathy and left larger than right uncovertebral osteophytes contribute to moderate to se rafael left and mild right neural foraminal narrowing. No significant spin al canal narrowing. C6-C7: Posterior disc osteophyte comple x mildly narrows the spinal canal. Prominent uncovertebral osteophytes and mild facet arthropathy contribute to moderate to severe bilateral neural fora mariola narrowing. C7-T1: Small central disc protrusion mi ldly indents the ventral thecal sac. Small left uncovertebral osteophytes mil dly narrow the left neural foramen. No significant right neural foraminal narro wing. IMPRESSION 1. Focal myelomalacia at C4-5. 2. On the right, uncovertebral osteophy te projecting within the C3-4 neural foramen may contact the exiting right C4 nerve root. There is also moderate to severe right C6-7 neural foraminal narro wing. Eusebio Dominguez MD IMG MRI ORDERABLES documented in this encounter Visit Diagnoses Diagnosis Displaced fracture of distal end of righ t ulna, sequela Displaced fracture of distal end of righ t ulna, sequela documented in this encounter Care Teams Percussion Instrument Tuner Relationship Specialty Start Date End Date Connie Gayle ND PCP - General Naturopathic Medicine 01/25/16 09/27/17 documented as of this encounter
--- OUTSIDE RECORDS SUMMARY | 2022-02-15 02:28 | XMS_ITS | Encounter Summary ---
:1960 Author Organization [facility] [place] [address] Care Team Providers Name Role Phone Susan Elise ND Primary Care Provider Encounter Details Date Type Department Care Team Description 05/03/2018 Tech Visit Gastroenterology at [facility] Beth York; [facility] Arleth Velasquez APRN Small [place] [address] [facility] [phone] [place], [place] [address] Social History Tobacco Use Types Packs/Day Years Used Date Never Smoker Smokeless Tobacco: Never Used Alcohol Use Standard Drinks/Week Comments No 0 (1 standard drink = 0.6 oz pure alcoho l) Sex Assigned at Date Recorded Not on file documented as of this encounter Progress Notes Beth York APRN - 05/03/2018 4:00 PM EDT Gastroenterology Breath Test Report Patient: Kalyn Burgos Date Of : 1960 PCP: Susan Elise ND Referring: Beth York STUDY DATE: 05/03/2018 PROVIDER: BETH YORK APRN INDICATION: Abdominal bloating Evaluate for SIBO ppmH2 ppmCH4 CO2(f) Fasting Baseline 7 5 2.6/2.34 Administer sugar: 15 mL Lactulose 90 mL H2O Sample Time ppmH2 ppmCH4 CO2(f) 1. 20 min 11 6 3.2/1.90 2. 40 min 15 7 3.3/1.84 3. 60 min 37 12 3.1/1.96 4. 80 min 53 15 2.4/2.54 5. 100 min 84 19 2.9/2.10 6. 120 min 74 15 3.3/1.84 7. 140 min 78 20 2.5/2.44 8. 160 min 86 16 3.4/1.79 9. 180 min 78 15 3.2/1.90 Interpretation: Positive hydrogen breath test consistent with small intestinal bacterial overgrowth(SIBO). 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 There is an early and significant rise in hydrogen production at 60 minutes. This meets criteria for small intestinal bacterial overgrowth. ?? Signed, Beth York APRN [place]astroenter[place] [address] P: [phone] F: [phone] Copy: Beth Elise ND Clinical interpretation is based on the [place] consensus on breath testing published in the [place] Journal of Gastroenterology, 2017. A rise in production of hydrogen or methane greater than20 ppm or 10 ppm respectively from baseline levels within 90 minutes is consistent with small intestinal bacterial overgrowth. documented in this encounter Plan of Treatment Upcoming Encounters Date Type Specialty Care Team Description 04/03/2022 TH Visit (TeleHealth) Neurology Pippa Jc MD [facility] [place] [address] (Wo rk) Scheduled Procedures Name Priority Associated Diagnoses Date/Time COLONOSCOPY, DIAGNOSTIC Encounter for colorectal cancer screening documented as of this encounter Visit Diagnoses Diagnosis Bloating Flatulence, eructation, and gas pain Small intestinal bacterial overgrowth documented in this encounter Care Teams Major Account Manager Relationship Specialty Start Date End Date Susan Elise ND PCP - General Naturopathic Medicine 02/28/18 11/05/18 documented as of this encounter
--- OUTSIDE RECORDS SUMMARY | 2022-02-15 02:28 | XMS_ITS | Encounter Summary ---
:1960 Author Organization [facility] [place] [address] Care Team Providers Name Role Phone Connie Gayle Gus SHEETS Primary Care Provider Reason for Referral Diagnostic Test (Routine) - Closed Specialty Diagnoses / Procedures Referred By Contact Refer red To Contact Radiology Diagnoses Right shoulder pain, unspecified chronicity Eusebio Dale MD [facility] Rad Mri Procedures MRI Shoulder Right WO Contrast (GENERIC) [facility] [place] [address] [place] [address] Referral ID Status Reason Start Date Expiration Date Visits V isits Requested Authorized [id number] Closed Specialty 05/02/2016 07/31/2016 1 1 Service Requested Reason for Visit Reason Comments Neck Pain Right Shoulder Pain Right Arm Pain Consultation (Routine) - Closed Specialty Diagnoses / Procedures Referred By Contact Refer red To Contact Orthopaedics Diagnoses cervical myelopathy s/p surgery Kg Martinez MD [facility] [address] [place], [place] [address] [place] [address] Phone: Referral ID Status Reason Start Date Expiration Date Visits V isits Requested Authorized [id number] Closed Consult, Test 01/25/2016 01/24/2017 1 [facility] PCP Updated and/or Approved Encounter Details Date Type Department Care Team Description 04/21/2016 Office Visit [facility], Spondylo sis of cervical region without myelopathy or radiculopathy; Alla GARNER Right shoulder pain, unspecified chronic ity [facility] [address] [facility] [address] [place] [address] [phone] Social History Tobacco Use Types Packs/Day Years Used Date Never Smoker Smokeless Tobacco: Never Used Alcohol Use Standard Drinks/Week Comments No 0 (1 standard drink = 0.6 oz pure alcoho l) Sex Assigned at Date Recorded Not on file documented as of this encounter Progress Notes Eusebio Dale MD - 04/26/2016 8:22 AM EDT She saw Dr Bajwa and he feels that her neck and shoulder complints are not directrly related to her CSpine changes We will order a R shoulder MRI and see her back after Eusebio Bajwa MD - 04/21/2016 9:17 AM EDT Aubrey Darnell is a 55-year-old right hand dominant woman seen today in the [facility] in consultation from Dr. Martinez and Dr. Dale. She has a very long and complex history with regards to her cervical spine. She had cervical myelopathy about 10 years ago and had an ACDF C4-5, C5-6 in [place]. She has had chronic neck pain and varying degrees of aches and pains since that time. Most recently in December she fell sustaining a distal ulna fracture. When she came out of her cast, she noted stiffness in her shoulder, elbow, and arm and right hand. She has global right upper extremity symptoms which are very hard to pinpoint on the history. The history tends to be quite scattered and flighty. It is also difficult to know what is bothersome now and what is old. As best I can tell, her neck pain is chronic. She has stiffness in her hand, shoulder and elbow, likely related to her injury of her ulna and her treatment in a cast and varying degrees of numbness, right greater than left hand on the 4th and 5th digits primarily. Other than stiffness in her hands, she describes no other problems with fine motor control that are new. She has no problems with her balance. She does have bladder incontinence, which I think is completely unrelated to her spine as are her kidney problems. Other than her bladder issues, review of systems is negative for GI, or constitutional symptoms. 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 She is continuing to undergo physical therapy. This is a thin, pleasant woman who moves easily with a normal gait. She has a normal-appearing cervical spine. She has a well healed, left anterior cervical incision. She has about 70 degree of pain-free bilateral cervical motion. Cervical flexion is to within 2 fingerbreadths of the sternum with end range pain. Cervical extension is full with end range pain. Her upper extremity motor examination is normal other than that limited in her hand by her recent injury in her shoulder by shoulder pain. Sensation is diminished in the right index, long, ring and 5th digit. This is old. Reflexes are 2+ in the upper extremities with a mildly positive Lerner on the right, negative Spurling's, negative clonus, negative Babinski's. Cervical MRI dated 04/15/06 demonstrates a well healed fusion and a well decompressed spinal canal C4-C6, with a high intensity signal and atrophy between the C5 and C6 level. She has some mild spondylosis involving the low, with perhaps a bit of foraminal narrowing but really nothing to confidently explain her symptoms, most if not all which I think are actually old as best as I can tell from her history. All this was reviewed with her in detail. I really see no indication for any operative intervention. I see no new neurological problems, no instability, no cord compromise, no concern for myelopathy and I do not think her spinal problems are contributing to her kidney issues or her bladder issues. I have recommended that she continue with physical therapy. She may need further shoulder evaluation. She may benefit from referral to the pain clinic. She is searching out another physical therapist and another chiropractor to see if those will be helpful here as they were for her in [place], [place]. Any further spine center followup would be with one of our medical specialists. documented in this encounter Miscellaneous Notes Addendum Note - Eusebio Dale MD - 04/26/2016 8:26 AM EDT Addended by: ESUEBIO DALE on: 04/26/2016 08:26 AM Modules accepted: Orders documented in this encounter Plan of Treatment Upcoming Encounters Date Type Specialty Care Team Description 04/03/2022 TH Visit (TeleHealth) Neurology Pippa Jc MD [facility] [address] [place], [place] [address] (Wo rk) Scheduled Procedures Name Priority Associated Diagnoses Date/Time COLONOSCOPY, DIAGNOSTIC Encounter for colorectal cancer screening documented as of this encounter Results MRI Shoulder Right WO Contrast (GENERIC) (05/08/2016 9:04 PM EDT) Anatomical Region Laterality Modality Shoulder Right Magnetic Resonance Specimen (Source) Anatomical Location Collection Method / Collectio n Time Received Time / Laterality Volume Impressions 05/09/2016 9:50 AM EDT 1. ??Rotator cuff tendinopathy with extensive articular surface partial-thickness tearing of the rotator cuff. There may b e a small focus of full-thickness tearing. No associated muscular atrophy. 2. ??Glenohumeral arthropathy characteri zed by marginal osteophyte formation and extensive degenerative tearing and defor mity of the labrum including the biceps anchor. 3. ??The presence of pericapsular edema suggestive possible diagnosis of early adhesive capsulitis. I have personally reviewed the image(s) and the residents interpretation and agree with the findings, Franklin Colin at 05/09/2016 9:50 AM Narrative 05/09/2016 9:50 AM EDT EXAMINATION: MRI SHOULDER RIGHT WO CONTRAST CLINICAL HISTORY: Fall within last 4 mon ths with ulnar fx - now persistent R shoulder and arm pain COMPARISON: There is no x-ray of the mariaa ulder for comparison. TECHNIQUE: Routine noncontrast MR of the Right shoulder was performed. FINDINGS: No osseous injury is identified. ROTATOR CUFF OUTLET: At the acromial clavicular joint margin al osteophytes are present and there is bone marrow edema. The appearance is con sistent with AC joint arthropathy. No acute superimposed injury is identified. There is minimal curvature of the acromi um. A small subacromial spur is evident.. ROTATOR CUFF: Fluid is present within the subdeltoid bursa. In addition to generalized rotator cuff tendinopathy, a high-grade, greater than 50% thickness, articular surface partial -thickness tearing of the rotator cuff insertion, begins approximately 1 cm pos terior to the rotator cuff interval and extends posteriorly approximately 2 cm. At the posterior margin of this undersur face partial-thickness tear there is an area which is suspicious for a small ful l-thickness tear. The subscapularis component of the cuff is intact. No atrophy of the rotator cuff musculatu re is identified. BICEPS TENDON: The biceps tendon is nondisplaced. It is normal in size and signal intensi ty with the exception of the proximal most aspect of the intra-articular compo nent of the tendon which is increased in size and signal intensity consistent wit h tendinopathy. GLENOHUMERAL JOINT: At the glenohumeral joint no large effu gustavo is identified. There is pericapsular edema. The signifi cance this finding is uncertain but this is a finding that has been described in the acute phase of adhesive capsulitis. Other findings typically seen in the set ting of adhesive capsulitis, such as capsular thickening, are not evident. The degeneration of the proximal biceps tendon extends into the biceps anchor where there is extensive degenerative te aring extending into both the posterior and anterior labrum. No chondral defect is identified but the re are small marginal osteophytes.. Procedure Note Franklin Colin MD - 05/09/2016Forma tting of this note might be different from the original. EXAMINATION: MRI SHOULDER RIGHT WO CONTR AST CLINICAL HISTORY: Fall within last 4 mon ths with ulnar fx - now persistent R shoulder and arm pain COMPARISON: There is no x-ray of the [facility] ulder for comparison. TECHNIQUE: Routine noncontrast MR of the Right shoulder was performed. FINDINGS: No osseous injury is identified. ROTATOR CUFF OUTLET: At the acromial clavicular joint margin al osteophytes are present and there is bone marrow edema. The appearance is con sistent with AC joint arthropathy. No acute superimposed injury is identified. There is minimal curvature of the acromi um. A small subacromial spur is evident.. ROTATOR CUFF: Fluid is present within the subdeltoid bursa. In addition to generalized rotator cuff tendinopathy, a high-grade, greater than 50% thickness, articular surface partial -thickness tearing of the rotator cuff insertion, begins approximately 1 cm pos terior to the rotator cuff interval and extends posteriorly approximately 2 cm. At the posterior margin of this undersur face partial-thickness tear there is an area which is suspicious for a small ful l-thickness tear. The subscapularis component of the cuff is intact. No atrophy of the rotator cuff musculatu re is identified. BICEPS TENDON: The biceps tendon is nondisplaced. It is normal in size and signal intensi ty with the exception of the proximal most aspect of the intra-articular compo nent of the tendon which is increased in size and signal intensity consistent wit h tendinopathy. GLENOHUMERAL JOINT: At the glenohumeral joint no large effu gustavo is identified. There is pericapsular edema. The signifi cance this finding is uncertain but this is a finding that has been described in the acute phase of adhesive capsulitis. Other findings typically seen in the set ting of adhesive capsulitis, such as capsular thickening, are not evident. The degeneration of the proximal biceps tendon extends into the biceps anchor where there is extensive degenerative te aring extending into both the posterior and anterior labrum. No chondral defect is identified but the re are small marginal osteophytes.. IMPRESSION 1. Rotator cuff tendinopathy with exten sive articular surface partial-thickness tearing of the rotator cuff. There may b e a small focus of full-thickness tearing. No associated muscular atrophy. 2. Glenohumeral arthropathy characteriz ed by marginal osteophyte formation and extensive degenerative tearing and defor mity of the labrum including the biceps anchor. 3. The presence of pericapsular edema s uggestive possible diagnosis of early adhesive capsulitis. I have personally reviewed the image(s) and the residents interpretation and agree with the findings, Franklin Colin at 05/09/2016 9:50 AM Eusebio Dale MD IMG MRI ORDERABLES documented in this encounter Visit Diagnoses Diagnosis Spondylosis of cervical region without m yelopathy or radiculopathy Cervical spondylosis without myelopathy Right shoulder pain, unspecified chronic ity Right shoulder pain, unspecified chronic ity documented in this encounter Care Teams Doffer Relationship Specialty Start Date End Date Connie Gayle ND PCP - General Naturopathic Medicine 01/25/16 09/27/17 documented as of this encounter
--- OUTSIDE RECORDS SUMMARY | 2022-02-15 02:28 | XMS_ITS | Encounter Summary ---
:1960 Author Organization [facility] [place] [address] Care Team Providers Name Role Phone April Cummins APRN Primary Care Provider Encounter Details Date Type Department Care Team Description 01/27/2018 [facility] [place] [address] Social History Tobacco Use Types Packs/Day Years Used Date Never Smoker Smokeless Tobacco: Never Used Alcohol Use Standard Drinks/Week Comments No 0 (1 standard drink = 0.6 oz pure alcoho l) Sex Assigned at Date Recorded Not on file documented as of this encounter Medications at Time of Discharge Medication Sig Dispensed Refills Start Date End Date FLUoxetine (PROZAC) 10 mg Take 10 mg by mouth 0 Tablet 3 times daily. UNABLE TO FIND Take 1 tablet by 0 07/2019 mouth daily. [facility] HYDROcodone-ibuprofen Take 1 tablet by 20 tablet 0 05/11/20 16 04/17/2019 (VICOPROFEN) 7.5-200 mg mouth every 8 hours TabletIndications: as needed for Pain. Chronic right shoulder pain documented as of this encounter Plan of Treatment Upcoming Encounters Date Type Specialty Care Team Description 04/03/2022 TH Visit (TeleHealth) Neurology Pippa Jc MD [facility] [address] [place] [address] (Wo rk) Scheduled Procedures Name Priority Associated Diagnoses Date/Time COLONOSCOPY, DIAGNOSTIC Encounter for colorectal cancer screening documented as of this encounter Procedures Procedure Name Priority Date/Time Associated Comments Diagnosis CRYPTOSPORIDIUM OOCYST Routine 01/27/2018 8:35 R esults for this ANTIGEN ([facility]/CGP/APD) PM EST proce dure are in the results section. FULL OVA AND PARASITES Routine 01/27/2018 8:35 R esults for this EXAM PM EST procedure are i n the results section. GIARDIA ANTIGEN Routine 01/27/2018 8:35 Results for this ([facility]/CGP/APD/[facility]H) PM EST procedure are in the results section. documented in this encounter Results Full Ova and Parasites Exam (01/27/2018 8:35 PM EST) [facility] Time Signature Ova & No ova or [facility] Parasite parasites [facility] Stool seen. [facility] Specimen Anatomical Collection Method Collection Time Receive d Time (Source) Location / / Volume Laterality Stool specimen 01/27/2018 8:35 8 (specimen) PM EST 8:38 PM EST Resulting Agency Comment Spec In Lab Beth Guerra APRN MICROBIOLOGY - GENERAL ORDER PATRIKC Performing Organization Address City/[facility]/[place] [address] Cryptosporidium Oocyst Antigen (Leb/CGP) (01/27/2018 8:35 PM EST) [facility] Time Signature Cryptosporidium Negative Negative [facility] LABORATORY Specimen Anatomical Collection Method Collection Time Receive d Time (Source) Location / / Volume Laterality Stool specimen Stool / Unknown 01/27/2018 8:35 2017 (specimen) PM EST 8:38 PM EST Resulting Agency Comment Spec In Lab Beth Guerra APRN MICROBIOLOGY - GENERAL ORDER PATRICK Performing Organization Address City/[facility]/ZIP [facility] [place] [address] Giardia antigen (Leb/CGP) (01/27/2018 8:35 PM EST) [facility] Giardia Screen Negative Negative [facility] Comment: Examination for other intestina l parasites requires foreign travel history. Specimen Anatomical Collection Method Collection Time Receive d Time (Source) Location / / Volume Laterality Stool specimen Stool / Unknown 01/27/2018 8:35 2017 (specimen) PM EST 8:38 PM EST Resulting Agency Comment Spec In Lab Beth Guerra APRN MICROBIOLOGY - GENERAL ORDER PATRICK Performing Organization Address City/State/ZIP Code Phon e Number [place] [phone] documented in this encounter Visit Diagnoses Not on filedocumented in this encounter Care Teams [employer] Saw Tender Relationship Specialty Start Date End Date April Cummins APRN PCP - General Internal Medicine 09/28/17 02/27/[address] [place] [address] documented as of this encounter
--- OUTSIDE RECORDS SUMMARY | 2022-02-15 02:28 | XMS_ITS | Encounter Summary ---
:1960 Author Organization [facility] [place] [address] Care Team Providers Name Role Phone Connie Gayle ND Primary Care Provider Encounter Details Date Type Department Care Team Description 04/28/2016 Orders Only Orthopaedics at [facility] [place] [address] Social History Tobacco Use Types Packs/Day [...] Neurology Pippa Jc MD [facility] [address] [place] [address] (Wo rk) Scheduled Procedures Name Priority Associated Diagnoses Date/Time COLONOSCOPY, DIAGNOSTIC Encounter for colorectal cancer screening documented as of this encounter Visit Diagnoses Not on filedocumented in this encounter Care Teams Director Athletic Relationship Specialty Start Date End Date Connie Gayle ND PCP - General Naturopathic Medicine 01/25/16 09/27/17 documented as of this encounter
--- OUTSIDE RECORDS SUMMARY | 2022-02-15 02:28 | XMS_ITS | Encounter Summary ---
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 [address] [place] [address] [place] [address] Referral ID Status Reason Start Date Expiration Date Visits V isits Requested Authorized [id number] Evaluate and 10/31/2017 10/31/2018 12 12 Treat Encounter Details Date Type Department Care Team Description 02/28/2018 Office Visit Physical Therapy at [facility] Diso rder of muscle, ligament, and fascia; [facility] PT Pelvic floor dysfunction; [address] [facility] Mixed stress and urge urinar y incontinence; [place], [place] Chronic constipation [id number] PHYSICAL MEDICINE [phone] & [place] [address] Social History Tobacco Use Types Packs/Day Years Used Date Never Smoker Smokeless Tobacco: Never Used Alcohol Use Standard Drinks/Week Comments No 0 (1 standard drink = 0.6 oz pure alcoho l) Sex Assigned at Date Recorded Not on file documented as of this encounter Progress Notes Amberly Nolasco, PT - 02/28/2018 2:00 PM EDT Physical Therapy Initial Evaluation Note: Outpatient Date of Exam/First Treatment: 02/28/2018 Date of onset: chronic Referring Provider: Beth Guerra APRN Diagnosis and comorbidities: 1. Disorder of muscle, ligament, and fascia 2. Pelvic floor dysfunction 3. Mixed stress and urge urinary incontinence 4. Chronic constipation History of current problem: Kalyn Darnell Case is a 57 y.o. female referred to physical therapy for muscle spasm/weakness with pelvic floor dysfunction, constipation and urinary incontinence. Patient reports abdominal bloating and discomfort to explosive bowel movements. Recalls longstanding difficulty with yeast which she manages with diet. Beth Naranjo APRN 10/31/17 note: History of gangrenous appendicitis age 16. This is when her IBS symptoms first started. Recently had a pyelonephritis. Was treated. Has been taking antibioticsmore recently. She started a sabrina cleanse. Diarrhea has improved. Continues to have plop-like and thin stools. Moves her bowels over three times per day. Denies straining. Difficulty emptying. Denies blood and mucus in stool. Colonoscopy April 2017 was positive for a TA, otherwise normal. Bloating and gas after eating. Abdominal cramping and fecal urgency. Patient's expressed goals for treatment: improve bowel movements, more control, decrease UI and FI Previous treatment/self care: probiotics, acidophilus, maintain hydration, fiber modified, sesame oil and sesame paste, root vegetable soup Gynecologic/Obstetric History: : 1 Para: 1 Episiotomy/Tearing/Repair: No Difficulty healing after delivery: No : Yes x 1 Difficult Childbirth: No Regular menstrual cycles: No Frequent urinary tract infections: Yes Sexual Dysfunction/Pain: Sexually Active: No Pain with: Pelvic exam: No Tampon use: N/A Back, leg, groin and/or abdominal: No Test Results: Urodynamics: N Cystoscope: N Urine Tests: Y Bowel Tests: Y: X-ray, CT with contrast, colonoscopy, parasite test Bladder Function: Leaks with: coughing, laughing, sneezing, jumping, with urge, during the night, on the way to the toilet, without warning Number of episodes: weekly to monthly Severity of leakage: drops, wet underwear and wet outerwear Pain or burning with urination:No Difficulty starting urine stream: No Strain to empty bladder: sometimes Feel unable to fully empty bladder: Yes Have a feeling of pelvic heaviness, pressure or falling out: No Have pain with a full bladder: Yes Have urgency of urination: Yes Pad use and Type (per day): occasionally # daytime voids: every 30 minutes to 1 hour # episodes of nocturia: 1 Bowel Dysfunction: Frequency of bowel movements: 2-3+/day Consistency of stool: normal, loose, soft and diarrhea Currently strain to void: Yes Include fiber in diet: Yes: moderated Take laxatives/enema regularly: No Have pain with bowel movements:No Have a strong urge to move bowels:Yes History of Constipation: Yes Have diarrhea often: Yes Ignore the urge to defecate: sometimes when has diarrhea Feel you have not completely emptied your bowels at the end of a BM: Yes Do you have to push on the vagina or rectum to have or complete a BM:Yes Fecal incontinence: Y gas, liquid, formed stool Fluid Intake: 8 glasses per day: water, cranberry juice and lemon juice mix, OJ with splash of cranberry 4 caffeinated beverages: green tea, occasional coffee 0 Alcoholic beverages: Outcome Measure: Pain Intensity Rating Scale: at best: 0/10, at worst: 2/10 Social History and Personal Factors 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 POSTURE: Good spinal and pelvic alignment, supine: mild pelvic and leg length discrepancy STRENGTH: lower extremity grossly 5/5 Patient gives verbal consent to external and internal exam. External Exam: Introitus: closed at rest, tight, symmetric, atrophic signs Introitus: perineal descent with cough Pelvic Floor Contraction: moderate levator ani activity with perineal body elevation, derecruitment to baseline, with abdominal overflow, decreased overflow with cues Valsalva: moderate pelvic floor excursion with signs of anterior and posterior laxity Palpation: Non-tender to pelvic clock Internal Exam: Levator ani muscle strength: 3:00 3/5, 6:00 3/5, and 9:00 3/5, derecruitment to baseline, inconsistent Levator ani muscle tone: 3/5, mild tenderness 3:00 Hold Time: 10 seconds, # of reps: 4 Valsalva: moderate pelvic floor excursion with signs of anterior and posterior laxity Rectal Exam: External anal sphincter: strength: 4/5, tone: 4/5, hold time: 10 seconds, Valsalva: mild, moderate pelvic floor excursion, without muscle contraction, with cues SEMG: with internal electrode in supine: deferred Resting Rate: uV Quick flicks: uV x reps Long Hold: uV x seconds x reps Assessment: These findings are consistent with underactive pelvic floor muscles with muscle weakness/spasm, pelvic floor dysfunction, alternating constipation and diarrhea, and mixed urinary incontinence. Patient performs a fair voluntary pelvic floor muscle contraction with incomplete voluntary relaxation, inconsistently. Presents with increased rectal sphincter tone and able to perform proper valsalva. Patient would benefit from pelvic floor muscle training to improve consistency, motor control, strength and endurance as well as awareness of habits, relaxation/downtraining, SEMG and HEP. Clinical Presentation Stable Evolving Unstable X Notes: high complexity Goals: Short term goals (4 weeks) 1. Patient to be indep in the performance of a home program of pelvic floor muscle exercises on a daily basis. 2. Patient will demonstrate a consistent voluntary pelvic floor muscle contraction and relaxation. 3. Patient to complete SEMG evaluation. 4. Patient will demonstrate knowledge of toilet positioning and techniques. Goals: long term care phlebotomist goals (3 months) 1. Patient to be independent with ongoing self management. 2. Patient will have decreased symptoms of constipation by 25%. 3. ADL???s not limited by UI, urgency or frequency. 4. Patient will have decreased symptoms of urinary incontinence by 25%. Frequency: 1 time in 4 weeks for 4 sessions Plan of care: therapeutic exercise, pelvic floor muscle exercises, SEMG, STM/MFR, stretching, patient/family education, home exercise program, relaxation/downtraining Informed Consent: The patient consented to the physical therapy evaluation. The patient agrees to and understands thephysical therapy treatment plan and goals. Interventions completed today: Initial evaluation, patient education and home exercise program consisting of: PT treatment of pelvic floor dysfunction, urge suppression techniques. moderation of bladder irritants, toilet positioningand techniques, relaxation/downtraining, diaphragmatic breathing, and pelvic floor muscle exercises:LH ~10 seconds with submaximal contraction, rest 10 seconds with focus on full relaxation, x 10 reps, 2 sessions/day Total Treatment time: 60 minutes: [facility] re-ed Total Timed Code Treatment: 15 minutes AM[facility] NOLASCO PT documented in this encounter Plan of Treatment Upcoming Encounters Date Type Specialty Care Team Description 04/03/2022 TH Visit (TeleHealth) Neurology Pippa Jc MD [facility] [address] [place] [address] (Wo rk) Scheduled Procedures Name Priority Associated Diagnoses Date/Time COLONOSCOPY, DIAGNOSTIC Encounter for colorectal cancer screening Scheduled Referrals Name Type Priority Associated Diagnoses Order S chedule Referral to Outpatient Referral Routine Irritable bowel Order ed: Physical Therapy syndrome with 10/31/2017 diarrhea Bloating documented as of this encounter Visit Diagnoses Diagnosis Disorder of muscle, ligament, and fascia Unspecified disorder of muscle, ligament , and fascia Pelvic floor dysfunction Pelvic muscle wasting Mixed stress and urge urinary incontinen ce Mixed incontinence urge and stress (male )(female) Chronic constipation Unspecified constipation documented in this encounter Care Teams Load Tester Relationship Specialty Start Date End Date Susan Elise ND PCP - General Naturopathic Medicine 02/28/18 11/05/18 documented as of this encounter
--- OUTSIDE RECORDS SUMMARY | 2022-02-15 02:28 | XMS_ITS | Encounter Summary ---
:1960 Author Organization [facility] [place] [address] Care Team Providers Name Role Phone Connie Gayle ND Primary Care Provider Encounter Details Date Type Department Care Team Description 04/19/2016 Orders Only [place] [facility]io Dominguez Displaced fracture of [facility] Center MD Ron distal end of right Drive [facility] [place], [place] [address] ORTHOPAEDIC SURGERY [place], [place] [address] Social History Tobacco Use Types [...] Neurology Pippa Jc MD [facility] er [place], [place] [address] (Wo rk) Scheduled Procedures Name Priority Associated Diagnoses Date/Time COLONOSCOPY, DIAGNOSTIC Encounter for colorectal cancer screening documented as of this encounter Visit Diagnoses Diagnosis Displaced fracture of distal end of righ t ulelia, sequela documented in this encounter Care Teams Clinical Admissions Manager Relationship Specialty Start Date End Date Connie Gayle ND PCP - General Naturopathic Medicine 01/25/16 09/27/17 documented as of this encounter
--- OUTSIDE RECORDS SUMMARY | 2022-02-15 02:28 | XMS_ITS | Encounter Summary ---
:1960 Author Organization [facility] [place] [address] Care Team Providers Name Role Phone April Cummins APRN Primary Care Provider Encounter Details Date Type Department Care Team Description 01/23/2018 Hospital Encounter XRay at [facility] Miky Guerra; [address] [facility] [address] Beth Velasquez APRN Upper abdominal pain [facility] [id number] Center [phone] [place] [address] Social History Tobacco Use Types Packs/Day Years [...] TO FIND Take 1 tablet by 0 /07/2019 mouth daily. Garden of life MVI HYDROcodone-ibuprofen Take 1 tablet by 20 tablet 0 05/11/20 16 04/17/2019 (VICOPROFEN) 7.5-200 mg mouth every 8 hours TabletIndications: as needed for Pain. Chronic right shoulder pain documented as of this encounter Plan of Treatment Upcoming Encounters Date Type Specialty Care Team Description 04/03/2022 TH Visit (TeleHealth) Neurology Pippa Jc MD [facility] [place] [address] [place], [place] [address] (Wo rk) Scheduled Procedures Name Priority Associated Diagnoses Date/Time COLONOSCOPY, DIAGNOSTIC Encounter for colorectal cancer screening documented as of this encounter Procedures Procedure Name Priority Date/Time Associated Diagnosis Comme nts XR ABDOMEN 1 VIEW Routine 01/23/2018 12:16 PM Bloating Results for this EST Upper abdominal pain procedu re are in the results section. documented in this encounter Results XR Abdomen 1 view (Generic) (01/23/2018 12:16 PM EST) Anatomical Region Laterality Modality Abdomen N/A Digital Radiography Specimen (Source) Anatomical Location Collection Method / Collectio n Time Received Time / Laterality Volume Impressions 01/23/2018 5:08 PM EST 1. ??Nonspecific borderline dilated air-filled small bowel loops in the left mid and upper abdomen, may represent an ileu s versus developing partial or complete small bowel obstruction. Consider follow -up abdominal radiographs or further evaluation by CT. 2. ??No large fecal load. I have personally reviewed the image(s) and the residents interpretation and agree with the findings, Bette mart 01/23/2018 5:08 PM Narrative 01/23/2018 5:08 PM EST EXAMINATION: XR ABDOMEN 1 VIEW (GENERIC) CLINICAL HISTORY: ?obstruction ???consti pation TECHNIQUE: AP supine radiographs of the abdomen and pelvis COMPARISON: None available FINDINGS: There are several borderline dilated sma ll bowel loops in the left mid and upper abdomen. Air is seen in nondistended asc ending and transverse colon to level of the splenic flexure with a small to mode rate amount of stool. Scattered air and stool are noted in the descending colon and rectosigmoid colon. No visualized mass effect. No abnormal intra-abdominal calcifications seen. Small round calcification overlying the central mid right hemipelvis presumably represents a phlebolith. No supine evidence of pneumo peritoneum. 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 Evaluation of the imaged lung bases is limited by film ove rpenetration. Procedure Note Bette Mariscal MD - 01/23/2018Formatt ing of this note might be different from the original. EXAMINATION: XR ABDOMEN 1 VIEW (GENERIC) CLINICAL HISTORY: ?obstruction ?constip ation TECHNIQUE: AP supine radiographs of the abdomen and pelvis COMPARISON: None available FINDINGS: There are several borderline dilated sma ll bowel loops in the left mid and upper abdomen. Air is seen in nondistended asc ending and transverse colon to level of the splenic flexure with a small to mode rate amount of stool. Scattered air and stool are noted in the descending colon and rectosigmoid colon. No visualized mass effect. No abnormal intra-abdominal calcifications seen. Small round calcification overlying the central mid right hemipelvis presumably represents a phlebolith. No supine evidence of pneumo peritoneum. 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 Evaluation of the imaged lung bases is limited by film ove rpenetration. IMPRESSION 1. Nonspecific borderline dilated air-f illed small bowel loops in the left mid and upper abdomen, may represent an ileu s versus developing partial or complete small bowel obstruction. Consider follow -up abdominal radiographs or further evaluation by CT. 2. No large fecal load. I have personally reviewed the image(s) and the residents interpretation and agree with the findings, Bette mart 01/23/2018 5:08 PM Beth Guerra APRN IMG DX ORDERABLES documented in this encounter Visit Diagnoses Diagnosis Bloating Flatulence, eructation, and gas pain Upper abdominal pain Abdominal pain, other specified site documented in this encounter Care Teams Mixer Helper Relationship Specialty Start Date End Date April Cummins APRN PCP - General Internal Medicine 09/28/17 02/27/[address] [place] [address] documented as of this encounter
--- OUTSIDE RECORDS SUMMARY | 2022-02-15 02:28 | XMS_ITS | Encounter Summary ---
:1960 Author Organization [facility] [place] [address] Care Team Providers Name Role Phone Connie Gayle ND Primary Care Provider Reason for Visit Reason Comments Neck Pain Bilateral Arm Pain pain , fingers numbness/weak ness Consultation (Routine) - Closed Specialty Diagnoses / Procedures Referred By Contact Refer red To Contact Orthopaedics Diagnoses Osteoarthritis of cervical spine with myelopathy Eusebio Dominguez Zleb Spine 3d MD [facility] [place] [address] [place] [address] Referral ID Status Reason Start Date Expiration Date Visits V isits Requested Authorized [id number] Closed Consult, 04/19/2016 04/19/2017 1 1 Test & Treat Encounter Details Date Type Department Care Team Description 06/21/2016 [facility] Vicente Velasquez MD region without [facility] MEDICAL myelopath [facility] radiculopathrey [place], [place] NEUROSURGERY [address] [place] [address] [phone] Social History Tobacco Use Types Packs/Day Years Used Date Never Smoker Smokeless Tobacco: Never Used Alcohol Use Standard Drinks/Week Comments No 0 (1 standard drink = 0.6 oz pure alcoho l) Sex Assigned at Date Recorded Not on file documented as of this encounter Progress Notes Uriah Jeong MD - 06/21/2016 1:00 PM EDT I have just seen Ms. Carie Burgos in [facility] at the request of Dr. Dominguez. Kalyn is a 55-year-old female who underwent a C4-5 and 5-6 decompression and fusion in [place] in 2007 or thereabouts. She had evidence of cervical myelopathy at that time, which prompted her surgery. She has relocated to the [facility] [place] and has a constellation of symptoms including neck discomfort, difficulty while sleeping, arm pain, numbness in the hands. 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 She has been diagnosed with a shoulder injury on the right side and has been also offered to have possible thoracic outlet syndrome. She was concerned about these symptoms and wanted a repeat MRI and repeat surgical evaluation. On her MRI, she has the aforementioned surgical decompression; however, she clearly has myelomalacia at the C4-5 level indicating prior spinal cord injury. She has a loss of lordosis at the C3-4 level and the cord touches the spinal canal ventrally but there is ample CSF behind it. She also has disk bulging at C6-7 and C7-T1, but the central canal is preserved and she largely has narrowing within the foramen. I told Ms. Carie Burgos that I do not see any overt spinal cord compression and therefore I do not think that there is any urgent need for surgery. While she could be having some radicular symptoms, I think that she has a host of other issues that might be causing her pain and I would not mckeon in to additional surgery that would necessitate extending fusions. I think she should continue with her nonsurgical management in the realm of a chiropractor, possible injections, et cetera. She is also working with an orthopedic surgeon for her right shoulder. If she has any worsening of symptoms, we will reevaluate, but at this time I do not see anything particularly concerning, though she does have some routine degenerative changes within the neck. She expressed understanding and had no further questions. 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
--- OUTSIDE RECORDS SUMMARY | 2022-02-15 02:28 | XMS_ITS | Encounter Summary ---
:1960 Author Organization [facility] [place] [address] Care Team Providers Name Role Phone PlacidoApril zavala APRN Primary Care Provider Encounter Details Date Type Department Care Team Description 01/02/2018 Hospital Encounter Radiology Library at [facility] yara Zavala [facility] [place] [address] GASTROENTEROLOGY [phone] [place], [place] [address] (Wo rk) Social History Tobacco [...] TO FIND Take 1 tablet by 0 /0 07/2019 mouth daily. Garden of life MVI HYDROcodone-ibuprofen Take 1 tablet by 20 tablet 0 05/11/20 16 04/17/2019 (VICOPROFEN) 7.5-200 mg mouth every 8 hours TabletIndications: as needed for Pain. Chronic right shoulder pain documented as of this encounter Plan of Treatment Upcoming Encounters Date Type Specialty Care Team Description 04/03/2022 TH Visit (TeleHealth) Neurology Pippa Jc MD [facility] [address] [place] [address] (Wo rk) Scheduled Procedures Name Priority Associated Diagnoses Date/Time COLONOSCOPY, DIAGNOSTIC Encounter for colorectal cancer screening documented as of this encounter Procedures Procedure Name Priority Date/Time Associated Diagnosis Comme nts FILM LIBRARY Routine 01/02/2018 12:00 AM Results for this STORAGE ONLY DX EST procedure ar e in CHEST the results section. documented in this encounter Results Film Library- Storage Only DX Chest (01/02/2018 12:00 AM EST) Specimen (Source) Anatomical Location Collection Method / Collectio n Time Received Time / Laterality Volume Narrative RAD - 01/31/2018 4:39 PM EST This result has an attachment that is no t available. This exam is for storage only and is aut o-finalizing. Beth Guerra APRN Cyndee FILM LIBRARY ORDERABLES Performing Organization Address City/State/ZIP Code Phon e Number [place], [place] documented in this encounter Visit Diagnoses Not on filedocumented in this encounter Care Teams Frame Assembler Relationship Specialty Start Date End Date April Cummins APRN PCP - General Internal Medicine 09/28/17 02/27/[address] [place] [address] documented as of this encounter
--- OUTSIDE RECORDS SUMMARY | 2022-02-15 02:28 | XMS_ITS | Encounter Summary ---
:1960 Author Organization [facility] [place] [address] Care Team Providers Name Role Phone April Cummins APRN Primary Care Provider Encounter Details Date Type Department Care Team Description 11/29/2017 Orders Only [place] [facility] Beth Guerra, [facility] [place] [address] [facility] [phone] GASTROENTEROLOGY [place], [place] [address] (Wo rk) Social History Tobacco [...] Jc MD [facility] er [place], [place] [address] (Wo rk) Scheduled Procedures Name Priority Associated Diagnoses Date/Time COLONOSCOPY, DIAGNOSTIC Encounter for colorectal cancer screening documented as of this encounter Visit Diagnoses Not on filedocumented in this encounter Care Teams Supervisor Relationship Specialty Start Date End Date April Cummins APRN PCP - General Internal Medicine 09/28/17 02/27/18 714 [place], [place] [address] documented as of this encounter
--- OUTSIDE RECORDS SUMMARY | 2022-02-15 02:28 | XMS_ITS | Encounter Summary ---
:1960 Author Organization [facility] [place] [address] Care Team Providers Name Role Phone Connie Gayle ND Primary Care Provider Encounter Details Date Type Department Care Team Description 03/08/2016 Clinical [place] [address] Social History Tobacco Use Types Packs/Day [...] Visit (TeleHealth) Neurology Pippa Jc MD [facility] [address] [place], [place] [address] (Wo rk) Scheduled Procedures Name Priority Associated Diagnoses Date/Time COLONOSCOPY, DIAGNOSTIC Encounter for colorectal cancer screening documented as of this encounter Visit Diagnoses Not on filedocumented in this encounter Care Teams Trash Collector Supervisor Relationship Specialty Start Date End Date Connie Gayle ND PCP - General Naturopathic Medicine 01/25/16 09/27/17 documented as of this encounter
--- OUTSIDE RECORDS SUMMARY | 2022-02-15 02:28 | XMS_ITS | Encounter Summary ---
:1960 Author Organization [facility] [place] [address] Care Team Providers Name Role Phone Connie Gayle ND Primary Care Provider Encounter Details Date Type Department Care Team Description 05/11/2016 Office Visit [place]ed[facility] [place] [facility] Aric [facility] Eusebio [place] [address] [place] [address] ORTHOPAEDIC SURGERY [place] [id number] Social History Tobacco Use Types Packs/Day Years Used Date Never Smoker Smokeless Tobacco: Never Used Alcohol Use Standard Drinks/Week Comments No 0 (1 standard drink = 0.6 oz pure alcoho l) Sex Assigned at Date Recorded Not on file documented as of this encounter Last Filed Vital Signs Vital Sign Reading Time Taken Comments Blood Pressure 103/55 05/11/2016 11:34 AM EDT Pulse 55 05/11/2016 11:34 AM EDT Temperature - - Respiratory Rate - - Oxygen Saturation - - Inhaled Oxygen Concentration - - Weight 54.4 kg (120 lb) 05/11/2016 11:34 AM EDT pt repo rted Height 167.6 cm (5' 6) 05/11/2016 11:34 AM EDT pt repo rted Body Mass Index 19.37 05/11/2016 11:34 AM EDT documented in this encounter Progress Notes Eusebio Dale MD - 05/11/2016 11:45 AM EDT Prior Hx This 55 yo white female has been followed for her distal R ulnar fx and that has healed but she is still seeing OT for that and is slowing gaining but the is still some swelling there etc She has developed more shoulder and neck pain and had a prior C4-6 fusion so we obtained an MRI and it appears that there is indeed a large spur disc complex just above the fusion and a disc below - some changes in the chord ? Old - I do not have the pre op MRI Because her shoulder has remained a focus of pain we went ahead with an MRI and there is articular surface partial ? Small focus full thickness tear rot cuff R shoudler We will try an intra articular R shoulder injection to try to determine how much trouble is coming from the cuff changes and how much may be from her neck ROS - unchanged PE - WD/Wn white female in NAD - alert and oriented x 3 Skin - dry and clear R wrist - still has e some swelling over the ulnar and the radio ulnar joint but has gained motion NV check grossly WNL - she does complain of some bladder issues - some urgency and some ocassional loss of control A: Healing R ulnar fx and significant C Spine DJD S/P fusion Plan: We will move ahead with a R shoulder injection She will call with the degree of improvement documented in this encounter Miscellaneous Notes Addendum Note - Eusebio Dale MD - 05/24/2016 3:25 PM EDT Addended by: EUSEBIO DALE on: 05/24/2016 03:25 PM Modules accepted: Orders documented in this encounter Plan of Treatment Upcoming Encounters Date Type Specialty Care Team Description 04/03/2022 TH Visit (TeleHealth) Neurology Pippa Jc MD [facility] [address] [place], [place] [address] (Wo rk) Scheduled Procedures Name Priority Associated Diagnoses Date/Time COLONOSCOPY, DIAGNOSTIC Encounter for colorectal cancer screening documented as of this encounter Results XR Fluoro Injection Drainage Joint Lg Right (06/01/2016 3:36 PM EDT) Anatomical Region Laterality Modality Right Digital Radiography Specimen (Source) Anatomical Location Collection Method / Collectio n Time Received Time / Laterality Volume Impressions 06/01/2016 3:49 PM EDT Uneventful right shoulder injection under fluoroscopy. Procedure performed by Tanvir NinoN. No attending radiologist was present. Resident/Fellow: None present Attending: Cristi Lowery 06/01/2016 3:49 PM EDT HISTORY: partial thickness tearing rotator cuff - articular side RIGHT SHOULDER INJECTION UNDER FLUOROSCO PY TECHNIQUE: After an extensive conversati on with the patient regarding risks and benefits, oral and written consent were obtained. ??A pre- procedural time-out was performed as per [facility] protocol. The patient was placed supine on the flu oroscopic table. ??The right shoulder was prepped and draped in the usual aseptic manner. 1% Lidocaine was used to achieve local anesthesia. Under fluoroscopic kendrick dance, 22-gauge needle was advanced into the joint space. ??Small amount of air w as injected to document needle placement. A mixture of Ropivacaine and triamcinol one acetonide was injected. All needles removed at end of procedure. FINDINGS: 1. ??Small amount of injected air in the right glenohumeral joint space. 2. ??PAIN SCORE: ??Before: 4/10 ??After: 4/10 3. Fluoroscopy time: 3.8 sec 4. Medications: ??Lidocaine 1% - <5 ml, for subcutaneou s anesthesia ??Ropivacaine HCL ??0.5% - 3 ml ??Triamcinolone Acetonide ??- 40 mg COMPLICATIONS: ??None immediate. POST-PROCEDURE CARE: Information regardi ng monitor of infection, post- procedural pain and management of steroi d flare were reviewed with patient. Procedure Note Viky Colunga, SYSTEMS INTEGRATOR - 06/01/2016Form atting of this note might be different from the original. HISTORY: partial thickness tearing rotat or cuff - articular side RIGHT SHOULDER INJECTION UNDER FLUOROSCO PY TECHNIQUE: After an extensive conversati on with the patient regarding risks and benefits, oral and written consent were obtained. A pre- procedural time-out was performed as per [facility] protocol. The patient was placed supine on the flu oroscopic table. The right shoulder was prepped and draped in the usual aseptic manner. 1% Lidocaine was used to achieve local anesthesia. Under fluoroscopic kendrick dance, 22-gauge needle was advanced into the joint space. Small amount of air wa s injected to document needle placement. A mixture of Ropivacaine and triamcinol one acetonide was injected. All needles removed at end of procedure. FINDINGS: 1. Small amount of injected air in the right glenohumeral joint space. 2. PAIN SCORE: Before: 4/10 After: 4/10 3. Fluoroscopy time: 3.8 sec 4. Medications: Lidocaine 1% - <5 ml, for subcutaneous anesthesia Ropivacaine HCL 0.5% - 3 ml Triamcinolone Acetonide - 40 mg COMPLICATIONS: None immediate. POST-PROCEDURE CARE: Information regardi ng monitor of infection, post- procedural pain and management of steroi d flare were reviewed with patient. IMPRESSION Uneventful right shoulder injection unde r fluoroscopy. Procedure performed by Tanvir Nino. No attending radiologist was present. Resident/Fellow: None present Attending: Cristi Eusebio Dale MD IMG FLUORO ORDERABLES documented in this encounter Visit Diagnoses Diagnosis Chronic right shoulder pain Pain in joint, shoulder region Chronic right shoulder pain Pain in joint, shoulder region documented in this encounter Care Teams Verifying Specialist Relationship Specialty Start Date End Date Connie Gayle ND PCP - General Naturopathic Medicine 01/25/16 09/27/17 documented as of this encounter
--- OUTSIDE RECORDS SUMMARY | 2022-02-15 02:28 | XMS_ITS | Encounter Summary ---
:1960 Author Organization [facility] [place] [address] Care Team Providers Name Role Phone Riley Gayleeen Gus SHEETS Primary Care Provider Reason for Visit Reason Onset Date Comments Injections 05/11/2016 Encounter Details Date Type Department Care Team Description 05/11/2016 Telephone [facility]edics at [facility] Eusebio Dominguez, Injections [facility] [place] [address] [facility] [phone] ORTHOPAEDIC SURG [place], [place] [address] (Wo rk) Social History Tobacco Use Types Packs/Day Years Used Date Never Smoker Smokeless Tobacco: Never Used Alcohol Use Standard Drinks/Week Comments No 0 (1 standard drink = 0.6 oz pure alcoho l) Sex Assigned at Date Recorded Not on file documented as of this encounter Miscellaneous Notes Telephone Encounter - Lenny Bear - 05/15/2016 10:32 AM EDT Patient called and was scheduled here Telephone Encounter - Sarah Scott - 05/11/2016 1:55 PM EDT Patient cannot have injection at [facility] in radiology. Per [facility] they could schedule a follow up with Dr Martinez, and if he felt injection was needed he could perform the injection. If she did not want to see Dr Martinez we could either find another facility she wanted to go to forthe injection, or schedule next available here. Dr Dominguez stated he was ok with which ever optionshe chose. LM#1 to discuss injection options with patient. documented in this encounter Plan of Treatment Upcoming Encounters Date Type Specialty Care Team Description 04/03/2022 TH Visit (TeleHealth) Neurology Pippa Jc MD [facility] [address] [place], [place] [address] (Wo rk) Scheduled Procedures Name Priority Associated Diagnoses Date/Time COLONOSCOPY, DIAGNOSTIC Encounter for colorectal cancer screening documented as of this encounter Visit Diagnoses Not on filedocumented in this encounter Care Teams Coil Spring Assembler Relationship Specialty Start Date End Date Connie Gayle, ND PCP - General Naturopathic Medicine 01/25/16 09/27/17 documented as of this encounter
--- OUTSIDE RECORDS SUMMARY | 2022-02-15 02:28 | XMS_ITS | Encounter Summary ---
:1960 Author Organization [facility] [place] [place] [address] Care Team Providers Name Role Phone Rosita Cumminsyce Tanvir HENLEY Primary Care Provider Encounter Details Date Type Department Care Team Description 12/27/2017 Hospital Encounter Radiology Library at Yeny Arita MD [facility] [place] [address] [place] [address] [phone] (Wo rk) Social History Tobacco Use Types [...] TH Visit (TeleHealth) Neurology Pippa Jc MD [facility] [address] [place], [place] [address] (Wo rk) Scheduled Procedures Name Priority Associated Diagnoses Date/Time COLONOSCOPY, DIAGNOSTIC Encounter for colorectal cancer screening documented as of this encounter Procedures Procedure Name Priority Date/Time Associated Comments Diagnosis FILM LIBRARY STORAGE Routine 12/27/2017 12:00 AM Results for this ONLY ULTRASOUND EST procedure ar sally in STUDY the results section. documented in this encounter Results Film Library- Storage Only Ultrasound Study (12/27/2017 12:00 AM EST) Specimen (Source) Anatomical Location Collection Method / Collectio n Time Received Time / Laterality Volume Narrative DENISE - 01/31/2018 1:29 PM EST This result has an attachment that is no t available. This exam is for storage only and is aut o-finalizing. Yeny Manuel MD [facility] FILM LIBRARY ORDERABLES Performing Organization Address City/State/ZIP Code Phon e Number [place], [place] documented in this encounter Visit Diagnoses Not on filedocumented in this encounter Care Teams Industrial Cook Relationship Specialty Start Date End Date April Cummins APRN PCP - General Internal Medicine 09/28/17 02/27/[address] [place] [address] documented as of this encounter
--- OUTSIDE RECORDS SUMMARY | 2022-02-15 02:28 | XMS_ITS | Encounter Summary ---
:1960 Author Organization [facility] [address] Care Team Providers Name Role Phone April Cummins APRN Primary Care Provider Encounter Details Date Type Department Care Team Description 12/06/2018 Telephone [place]rology [place] [facility] [place] [address] Social History Tobacco Use Types Packs/Day Years Used Date Never Smoker Smokeless Tobacco: Never Used Comments: Exposure to smoking in the [place] until the age of 16 Alcohol Use Standard Drinks/Week Comments No 0 (1 standard drink = 0.6 oz pure alcoho l) Sex Assigned at Date Recorded Not on file documented as of this encounter Miscellaneous Notes Telephone Encounter - Juan Mercado RN - 12/06/2018 9:51 AM EST Verified patient name and date of Spoke with the pt who says that she is having mild frequency, urgency and burning with urination. Told her that Rosemary would like her to take Keflex 500 mg PO TID x 7 days. She agreed. Script sent to requested pharmacy. Telephone Encounter - Juan Mercado RN - 12/06/2018 9:51 AM EST ----- Message from Rosemary Ceron APRN sent at 12/06/2018 8:52 AM EST ----- Regarding: please offer treatment Bryant Leyva~ I sent a note to [facility] thinking she was here today. Her UA is normal, so if she feels well, she does not need treatment. However, she moves to sepsis pretty quickly with minimal other symptoms. She could get keflex 500 mg po three times a day for 7 days, probiotics given her tendency for yeast. Would you mind calling her to see how she feels please? Thank you, Rosemary documented in this encounter Plan of Treatment Upcoming Encounters Date Type Specialty Care Team Description 04/03/2022 TH Visit (TeleHealth) Neurology Pippa Jc MD [facility] [place] [address] (Wo rk) Scheduled Procedures Name Priority Associated Diagnoses Date/Time COLONOSCOPY, DIAGNOSTIC Encounter for colorectal cancer screening documented as of this encounter Visit Diagnoses Not on filedocumented in this encounter Care Teams Home Health Attendant Relationship Specialty Start Date End Date April Cummins APRN PCP - General Internal Medicine 11/06/18 11/19/[address] [place] [address] documented as of this encounter
--- OUTSIDE RECORDS SUMMARY | 2022-02-15 02:28 | XMS_ITS | Encounter Summary ---
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 [address] [place] [address] [place] [address] Referral ID Status Reason Start Date Expiration Date Visits V isits Requested Authorized [id number] Evaluate and 10/31/2017 10/31/2018 12 12 Treat Reason for Visit Reason Comments GI Problem Consultation (Routine) - Closed Specialty Diagnoses / Procedures Referred By Contact Refer red To Contact Gastroenterology Diagnoses Irritable bowel syndrome April Cummins APRN [facility] [address] [address] [place] [address] Fax: Referral ID Status Reason Start Date Expiration Date Visits V isits Requested Authorized [id number] Closed Consult, 09/28/2017 09/28/2018 1 1 [facility] & Treat Connection Center Encounter Details Date Type Department Care Team Description 10/31/2017 Office Visit Gastroenterology at [facility] [place], Irritable bowel syndrome wit h diarrhea; [facility] Arleth Velasquez APRN Bloating; [place] [address] [facility] Medical Pelvic floor dysfunction [phone] [place] [address] Social History Tobacco Use Types Packs/Day Years Used Date Never Smoker Smokeless Tobacco: Never Used Alcohol Use Standard Drinks/Week Comments No 0 (1 standard drink = 0.6 oz pure alcoho l) Sex Assigned at Date Recorded Not on file documented as of this encounter Last Filed Vital Signs Vital Sign Reading Time Taken Comments Blood Pressure 109/63 10/31/2017 2:40 PM EST Pulse 66 10/31/2017 2:40 PM EST Temperature - - Respiratory Rate - - Oxygen Saturation - - Inhaled Oxygen Concentration - - Weight 57.4 kg (126 lb 9.6 oz) 10/31/2017 2:40 PM EST Height 167.6 cm (5' 6) 10/31/2017 2:40 PM EST Body Mass Index 20.43 10/31/2017 2:40 PM EST documented in this encounter Patient Instructions Patient InstructionsSieglingBeth crump APRN - 10/31/2017 2:30 PM EST 1. Enteric coated peppermint oil up to four times daily on an empty stomach for spasms/abdominal pain. 2. Bathroom routines- same time every day regardless of having the urge to go or not. 3. Pelvic floor physical therapy 4. Smooth move tea or senna 1-4 tablets at bedtime to facilitate a morning bowel movement 5. Rifaximin 550mg three times daily for 14 days. Followed by the low-FODMAP for 2 weeks. 6. Limit fiber to 25 grams per day. This can make bloating and gas worse. 7. Follow up as needed. documented in this encounter Progress Notes Beth Guerra APRN - 10/31/2017 2:30 PM EST MEDICAL COLLECTIONS: Beth Guerra APRN PCP: April Cummins APRN REQUESTING PROVIDER: April Cummins APRN REASON FOR CONSULTATION This is a 56 y.o. female with a history significant for DJD. I am seeing her as a new patient today in consult for IBS. GI PROBLEM LIST 1. IBS --COLONOSCOPY 04/2017; normal except for TA HPI COMMENTS History of gangrenous appendicitis age [...] Denies anorexia, fever, or unintended weight change EYES: Denies red or painful eyes ENT: Denies oral ulcers, dysphagia, odynophagia, globus. RESPIRATORY: Denies cough, shortness of breath, wheezing CV: Denies palpitations, chest pain. : See HPI. Denies dysuria, urinary incontinence, or dyspareunia. MUSC/SKELETAL: Denies chronic joint pains or history of inflammatory arthritis. INTEGUMENTARY: Denies recent skin rash or lesions. NEURO: Denies neuropathy, loss of sensation, facial drooping or unilateral weakness. PSYCH: Denies psychiatric problems. ENDO: Denies frequent urination and excessive hunger or thirst. HEM/LYMPH: Denies easy bleeding or bruising. ALL/IMMUNO: Denies seasonal allergies, frequent colds. ALLERGIES No Known Allergies CURRENT MEDICATIONS Medications reviewed and reconciled in e-DH Current Outpatient Prescriptions: ??? UNABLE TO FIND, Tumeric 1-2 tablets daily, Disp: , Rfl: ??? HYDROcodone-ibuprofen (VICOPROFEN) 7.5-200 mg Tablet, Take 1 tablet by mouth every 8 hours as needed for Pain. (Patient not taking: Reported on 06/21/2016), Disp: 20 tablet, Rfl: 0 ??? magnesium 250 mg Tablet, Take 1 tablet by mouth daily., Disp: , Rfl: ??? FLUoxetine (PROZAC) 10 mg Tablet, Take 10 mg by mouth 3 times daily., Disp: , Rfl: MEDICAL HISTORY Past Medical History: Diagnosis Date ??? No known health problems SURGICAL HISTORY Past Surgical History: Procedure Laterality Date ??? 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 . Has one son- . HABITS Denies tobacco use. Denies alcohol use. Denies using other substances. FAMILY HISTORY Denies family history of celiac disease, esophageal cancer, stomach cancer, colon cancer, pancreaticor liver issues, and IBD. PHYSICAL EXAM: Most Recent Vitals: 10/31/17 1440 BP: 109/63 Pulse: 66 Height: Height: 167.6 cm (5' 6) Weight: Weight - Scale: 57.4 kg (126 lb 9.6 oz) Body mass index is 20.43 kg/(m^2). GENERAL: Healthy-appearing in no acute distress. Appears stated age. Appropriate weight for height. SKIN: No lesions, rashes, lumps, or angiomas on exposed skin. NECK: No adenopathy. No thyromegaly. HEENT: PERRL, EOMI, mucosa clear without ulceration or lesions, normal Dentition LUNGS: Clear to auscultation bilaterally COR: Regular, normal S1 and S2 without murmurs. ABD: Tympanic. Normal active BS. Soft, non-distended. No bruits. No tenderness to deep palpation in all 4 quadrants. No organomegaly. EXT: No cyanosis, clubbing, or edema. NEURO: Alert and oriented to person, place, [...] CO2 25 02/03/2016 BUN 11 02/03/2016 CREATININE 0.79 02/03/2016 GLUCOSE 91 02/03/2016 CALCIUM 9.1 02/03/2016 ASSESSMENT This is a very nice 56 y.o. female with a history significant for DJD who comes to me today for evaluation of IBS with a diarrhea predominance. She endorses a remote history of gangrenous appendicitis. More recently, she has been treated for pyelonephritis and sepsis. Onset of IBS D symptoms started after treatment for gangrenous appendicitis at the age of 16. She is currently having 3 or more loose stools per day. However, this is improved since completing a Gilma cleanse. She currently complains of constant bowel fullness. Colonoscopy in April 2017 was normal except for a TA. She does meet JEANINE IV criteria for IBS with the diarrhea predominance. She reports urinary incontinence. She may benefit from pelvic floor physical therapy. She is also been working with a natural path, taking probiotics and probiotics, and eating a clean diet. Bloating is bothersome. We reviewed the etiology, pathophysiology, diagnostic, and treatment options for IBS with diarrhea predominance. We reviewed the utility of hydrogen breath test versus empiric treatment with rifaximin. Rifaximin is FDA approved for the treatment of IBS D, especially if bloating is a bothersome symptom. Although she prefers natural approaches, she wishes to be treated with rifaximin. We reviewed medication indications, administration, and side effects. We reviewed possible alternative therapy with metronidazole in the event that insurance does not cover rifaximin. Recommend enteric-coated peppermint oil for abdominalpain and spasms. Recommend bathroom routines. Recommend pelvic floor physical therapy. Recommend limiting fiber to 25 g per day. She does eat very healthfully, which can sometimes make bloating worse. Recommend smooth move tea or senna at bedtime to facilitate a morning bowel movement in the event that she feels constipated. 1. IBS-Diarrhea predominance Rifaximin 550mg three times daily x 14 days. Consider metronidazole. Low- FODMAP x 2 weeks, following treatment with rifaximin. Enteric coated peppermint oil. Consider utility of HBT. 2. BLOATING Limit fiber to 25 grams per day. 3. PELVIC FLOOR DYSFUNCTION Bathroom routines. Pelvic floor PT. Squatty potty/foot stool. Smooth move tea/senna as needed. PLAN 1. Enteric coated peppermint oil up to four times daily on an empty stomach for spasms/abdominal pain. 2. Bathroom routines (AM BM) 3. Pelvic floor physical therapy 4. Smooth move tea or senna 1-4 tablets at bedtime to facilitate a morning bowel movement 5. Rifaximin 550mg three times daily for 14 days. Followed by the low-FODMAP for 2 weeks. 6. Limit fiber to 25 grams per day. This can make bloating and gas worse. 7. Follow up as needed. I have provided her with my contact information. She has been encouraged to contact me with any questions or concerns. TIME SPENT WITH PATIENT 56 minutes of this 62 minute visit were spent in [id number] discussion and counseling the patient as detailed per above. Signed, Beth Guerra APRN 11/01/17 8:56 AM Section of Gastroenterology & Hepatology [facility] documented in this encounter Plan of Treatment Upcoming Encounters Date Type Specialty Care Team Description 04/03/2022 TH Visit (TeleHealth) Neurology Pippa Jc MD [facility] Dr Zhang, [place] [address] (Wo rk) Scheduled Procedures Name Priority Associated Diagnoses Date/Time COLONOSCOPY, DIAGNOSTIC Encounter for colorectal cancer screening Scheduled Referrals Name Type Priority Associated Diagnoses Order S chedule Referral to Outpatient Referral Routine Irritable bowel Order ed: Physical Therapy syndrome with 10/31/2017 diarrhea Bloating documented as of this encounter Visit Diagnoses Diagnosis Irritable bowel syndrome with diarrhea Irritable bowel syndrome Bloating Flatulence, eructation, and gas pain Pelvic floor dysfunction Pelvic muscle wasting documented in this encounter Care Teams Employee Development Director Relationship Specialty Start Date End Date April Cummins APRN PCP - General Internal Medicine 09/28/17 02/27/[address] [place] [address] documented as of this encounter
--- OUTSIDE RECORDS SUMMARY | 2022-02-15 02:28 | XMS_ITS | Encounter Summary ---
:1960 Author Organization [facility] [place] [place] [address] Care Team Providers Name Role Phone Connie Gayle SUDEEP Primary Care Provider Reason for Visit Reason Onset Date Comments Referral 05/16/2016 Encounter Details Date Type Department Care Team Description 05/16/2016 Telephone Orthopaedics at [facility] Eusebio Dominguez, Referral [facility] [place] [address] [facility] [phone] ORTHOPAEDIC SURG [place], [place] [address] (Wo rk) Social History Tobacco Use Types Packs/Day Years Used Date Never Smoker Smokeless Tobacco: Never Used Alcohol Use Standard Drinks/Week Comments No 0 (1 standard drink = 0.6 oz pure alcoho l) Sex Assigned at Date Recorded Not on file documented as of this encounter Miscellaneous Notes Telephone Encounter - Emmy Ventura - 05/16/2016 12:32 PM EDT Patient would like Dr. Dominguez to refer her to Dr. Bette Farnsworth at [facility] [place] for follow up on her shoulder documented in this encounter Plan of Treatment Upcoming Encounters Date Type Specialty Care Team Description 04/03/2022 TH Visit (TeleHealth) Neurology Pippa Jc MD [facility] er Dr Zhang [place] [address] (Wo rk) Scheduled Procedures Name Priority Associated Diagnoses Date/Time COLONOSCOPY, DIAGNOSTIC Encounter for colorectal cancer screening documented as of this encounter Visit Diagnoses Not on filedocumented in this encounter Care Teams Supervisor Cold Rolling Relationship Specialty Start Date End Date Connie Gayle, SUDEEP PCP - General Naturopathic Medicine 01/25/16 09/27/17 documented as of this encounter
--- OUTSIDE RECORDS SUMMARY | 2022-02-15 02:28 | XMS_ITS | Encounter Summary ---
:1960 Author Organization [facility] [place] [address] Care Team Providers Name Role Phone April Cummins APRN Primary Care Provider Encounter Details Date Type Department Care Team Description 01/23/2018 Office Visit Gastroenterology at [facility] Miky Guerra; [facility] Arleth Velasquez APRN Upper abdominal pain; [place] [address] [facility] Diarrhea, unspecified type; [phone] Center Irritable bowel syndrome with [place] [address] Social History Tobacco Use Types Packs/Day Years Used Date Never Smoker Smokeless Tobacco: Never Used Alcohol Use Standard Drinks/Week Comments No 0 (1 standard drink = 0.6 oz pure alcoho l) Sex Assigned at Date Recorded Not on file documented as of this encounter Patient Instructions Patient InstructionsSieglingBeth crump APRN - 01/23/2018 11:30 AM EST 1. Abdominal x-ray today in 3L to rule out an obstruction 2. Stool studies at your convenience. Send me a message 2-3 weeks after testing if you don't hear from me 3. Hydrogen breath test 4. Follow up as needed documented in this encounter Progress Notes Beth Guerra APRN - 01/23/2018 11:30 AM EST ENGINEERING PROGRAMMER: Beth Guerra APRN PCP: April Cummins APRN REQUESTING PROVIDER: April Cummins APRN REASON FOR VISIT This is a 57 y.o. female with a history significant for DJD. She is returning to me today in followup for IBS GI PROBLEM LIST 1. IBS- Diarrhea predominant --COLONOSCOPY 04/2017; normal except for TA INTERVAL HISTORY- 01/23/18 Completed rifaximin. Immediately noticed [...] or dyspareunia. ALLERGIES Allergies Allergen Reactions ??? Wheat Other (See Comments) Gastrointestinal distress CURRENT MEDICATIONS Medications reviewed and reconciled in e-DH Current Outpatient Prescriptions: ??? UNABLE TO FIND, Take 1 tablet by mouth daily. [place] of life MVI, Disp: , Rfl: ??? HYDROcodone-ibuprofen (VICOPROFEN) 7.5-200 mg Tablet, Take 1 tablet by mouth every 8 hours as needed for Pain. (Patient not taking: Reported on 11/23/2017), Disp: 20 tablet, Rfl: 0 ??? FLUoxetine (PROZAC) 10 mg Tablet, Take [...] pancreaticor liver issues, and IBD. PHYSICAL EXAM: GENERAL: Healthy-appearing in no acute distress. Appears [...] 02/03/2016 ASSESSMENT This is a very nice 57 y.o. female with a history significant for DJD who returns to me today in follow up for IBS. She endorses a history of parasites. Has been treated in the past. Just recently completed a course of rifaximin without relief. Continues to meet JEANINE IV criteria for IBS. Consideroverflow diarrhea. Consider pelvic floor dysfunction. She has not yet started pelvic floor PT. Recommend KUB. Consider golytely cleanout. We will also rule out an obstructive process. Recommend stool studies including fecal calprotectin, stool culture, O&P, and giardia. 1. IBS-Diarrhea predominance- Unchanged 2. BLOATING- Unchanged 3. PELVIC FLOOR DYSFUNCTION-Unchanged PLAN 1. KUB today 2. Fecal calprotectin, stool culture, O&P, giardia 3. Hydrogen breath test 4. Follow up as needed Patient agrees with the above plan. I did my best to answer her questions. TIME SPENT WITH PATIENT 25 minutes of this 26 minute visit were spent in [id number] discussion and counseling the patient as detailed per above. Signed, Beth Guerra APRN 01/23/18 12:04 PM Section of Gastroenterology & Hepatology [facility] documented in this encounter Plan of Treatment Upcoming Encounters Date Type Specialty Care Team Description 04/03/2022 TH Visit (TeleHealth) Neurology Pippa Jc MD [facility] [address] [place], [place] [address] (Wo rk) Scheduled Procedures Name Priority Associated Diagnoses Date/Time COLONOSCOPY, DIAGNOSTIC Encounter for colorectal cancer screening documented as of this encounter Results XR Abdomen 1 view [...] Bette mart 01/23/2018 5:08 PM Beth Guerra DIRECTOR CENTER IMG DX ORDERABLES documented in this encounter Visit Diagnoses Diagnosis Bloating Flatulence, eructation, and gas pain Upper abdominal pain Abdominal pain, other specified site Diarrhea, unspecified type Irritable bowel syndrome with diarrhea Irritable bowel syndrome Bloating Flatulence, eructation, and gas pain Upper abdominal pain Abdominal pain, other specified site documented in this encounter Care Teams Food Counselor Relationship Specialty Start Date End Date April Cummins APRN PCP - General Internal Medicine 09/28/17 02/27/[address] [place] [address] documented as of this encounter
--- OUTSIDE RECORDS SUMMARY | 2022-02-15 02:28 | XMS_ITS | Encounter Summary ---
:1960 [place] [address] Care Team Providers Name Role Phone Connie Gayle ND Primary Care Provider Reason for Visit Reason Comments Dizziness LOC Encounter Details Date Type Department Care Team Description 02/03/2016 Emergency Emergency Department Jinny Angeles, Vasovagal syncope [address] [place] [address] [place] [address] [phone] (Wo rk) Social History Tobacco Use Types Packs/Day Years Used Date Never Smoker Smokeless Tobacco: Never Used Alcohol Use Standard Drinks/Week Comments No 0 (1 standard drink = 0.6 oz pure alcoho l) Sex Assigned at Date Recorded Not on file documented as of this encounter Last Filed Vital Signs Vital Sign Reading Time Taken Comments Blood Pressure 102/64 02/03/2016 2:00 PM EST Pulse 56 02/03/2016 2:00 PM EST Temperature 36.8 ??C (98.2 ??F) 02/03/2016 2:00 PM EST Respiratory Rate 12 02/03/2016 12:30 PM EST Oxygen Saturation 97% 02/03/2016 2:00 PM EST Inhaled Oxygen Concentration - - Weight 56.7 kg (125 lb) 02/03/2016 11:44 AM EST Height 167.6 cm (5' 6) 02/03/2016 11:44 AM EST Body Mass Index 20.18 02/03/2016 11:44 AM EST documented in this encounter Discharge Instructions Discharge InstructionsJudd Deluna MD - 02/03/2016 1:58 PM EST Images from the original note were not included. [facility] Fainting: After Your Visit Your Care Instructions When you faint, or pass out, you lose consciousness for a short time. A brief drop in blood flow to the brain often causes it. When you fall or lie down, more blood flows to your brain and you regain consciousness. Emotional stress, pain, or overheating--especially if you have been standing--can make you faint. Inthese cases, fainting is usually not serious. But fainting can be a sign of a more serious problem. Your doctor may want you to have more tests to rule out other causes. The treatment you need depends on the reason why you fainted. The doctor has checked you carefully, but problems can develop later. If you notice any problems or new symptoms, get medical treatment right away. Follow-up care is a shah part of your treatment and safety. Be sure to make and go to all appointments, and call your doctor if you are having problems. It's also a good idea to know your test results and keep a list of the medicines you take. How can you care for yourself at home? ?? Drink plenty of fluids to prevent dehydration. If you have kidney, heart, or liver disease and have to limit fluids, talk with your doctor before you increase your fluid intake. When should you call for help? Call 911 anytime you think you may need emergency care. For example, call if: ?? You have symptoms of a heart problem. These may include: ?? Chest pain or pressure. ?? Severe trouble breathing. ?? A fast or irregular heartbeat. ?? Lightheadedness or sudden weakness. ?? Coughing up pink, foamy mucus. ?? Passing out. After you call 911, the shuttle car operator may tell you to chew 1 adult-strength or 2 to 4 low-dose aspirin. Wait for an ambulance. Do not try to drive yourself. ?? You have symptoms of a stroke. These may include: ?? Sudden numbness, tingling, weakness, or loss of movement in your face, arm, or leg, especially ononly one side of your body. ?? Sudden vision changes. ?? Sudden trouble speaking. ?? Sudden confusion or trouble understanding simple statements. ?? Sudden problems with walking or balance. ?? A sudden, severe headache that is different from past headaches. ?? You passed out (lost consciousness) again. Watch closely for changes in your health, and be sure to contact your doctor if: ?? You do not get better as expected. Where can you learn more? Visit our health information library at [email or web address] You can also view health information on [employer], your personal patient account. Log in or sign up today. Enter [id number] in the search box to learn more about Fainting: After Your Visit. ?? [id number] [employer]. Care instructions adapted under license by [facility]. This care instruction is for use with your licensed healthcare professional. If you have questionsabout a medical condition or this instruction, always ask your healthcare professional. [employer] disclaims any warranty or liability for your use of this information. Content Version: 10.4.780223; Current as of: August 04, 2014 documented in this encounter Medications at Time of Discharge Medication Sig Dispensed Refills Start Date End Date FLUoxetine (PROZAC) 10 mg Take 10 mg by mouth 3 0 Tablet times daily. documented as of this encounter ED Notes Hazel Ragland RN - 02/03/2016 2:16 PM EST Pt in wheelchair pushed by son and brought back to ortho clinic for casting, ambulated to bathroom steady on feet denies any currently dizziness Hazel Ragland RN - 02/03/2016 2:04 PM EST Per resident Samuel Hughes pt to go back to ortho clinic Hazel Ragland RN - 02/03/2016 1:35 PM EST EKG completed and pt ambulated to bathroom with tech, steady on feet, denies any dizziness, back to bed,resting comfortable at this time, son at bedside Hazel Ragland RN - 02/03/2016 1:10 PM EST Orthopedic attending in to see pt, awaiting dispo Hazel Ragland RN - 02/03/2016 12:16 PM EST MD at bedside, awaiting dispo Jinny Farfan MD - 02/03/2016 12:12 PM EST HPI Kalyn Darnell Case is a 55 y.o. female transferred from [facility]o Clinic who presents to the Emergency Department after a syncopal episode. States she developed nausea and lightheadedness as they were taking off her cast and the girls next door was discussing having her pins being taken out. She was lowered to the floor and reports LOC for a few seconds. This occurred in the setting of generalized malaise for the past few days, reports myalgias/arthralgias, decreased PO intake, and a back ache last night that concerned her for a kidney stone. Also endorses a diffuse headache and increased urinary frequency. Denies other accompanying sx such as f/c, confusion, vision or speech changes, cough, sore throat,SOB, CP or palpitations, abd pain, v/d/c, dysuria, hematuria, bleeding/bruises/rashes, or focal n/t/w in her extremities. Took oxycodone this morning for pain relief re: her arm. Review of Systems: Pertinent positive and negative ROS discussed in HPI. ROS otherwise negative. Physical Exam: Patient Vitals for the past 24 hrs: BP Temp Pulse Resp SpO2 Height Weight 02/03/16 1400 102/64 mmHg 36.8 ??C (98.2 ??F) 56 - 97 % - - 02/03/16 1345 99/72 mmHg - 52 - 99 % - - 02/03/16 1315 99/62 mmHg - (!) 49 - 98 % - - 02/03/16 1245 92/56 mmHg - 52 - 97 % - - 02/03/16 1230 94/58 mmHg - (!) 48 12 100 % - - 02/03/16 1215 (!) 88/51 mmHg - (!) 48 15 100 % - - 02/03/16 1200 92/53 mmHg - (!) 48 15 100 % - - 02/03/16 1145 93/57 mmHg - (!) 48 11 100 % - - 02/03/16 1144 - 36.7 ??C (98.1 ??F) - - - 167.6 cm (5' 6) 56.7 kg (125 lb) Physical Exam Constitutional: She is oriented to person, place, and time. She appears well- developed and well-nourished. No distress. HENT: Head: Normocephalic and atraumatic. Eyes: Conjunctivae are normal. Right eye exhibits no discharge. Left eye exhibits no discharge. Neck: Normal range of motion. Neck supple. Cardiovascular: Normal rate, regular rhythm and normal heart sounds. Pulmonary/Chest: Effort normal and breath sounds normal. No respiratory distress. She has no wheezes. She has no rales. She exhibits no tenderness. Abdominal: Soft. Bowel sounds are normal. She exhibits no distension. There is no tenderness. There is no rebound, no guarding and no CVA tenderness. Musculoskeletal: L arm casted and in sling Neurological: She is alert and oriented to person, place, and time. No cranial nerve deficit. Grossly normal s/s in lower extremities bilaterally and L arm Skin: Skin is warm and dry. No rash noted. She is not diaphoretic. No erythema. There is pallor. Psychiatric: She has a normal mood and affect. Nursing note and vitals reviewed. ED Course: - Patient was evaluated and discussed with Dr. Farfan - Medications, allergies and past medical history reviewed - Medications and fluids administered: 1L NS - I reviewed the EKG: Sinus jus, in the setting of syncope I considered: 1. ACS: No ST changes 2. Tachy-jus: No blocks 3. WPW: No delta wave 4. Brugada: No RSR'; R-bundle appearance 5. HCM: No LVH;needle Qs/ T-wave inversions 6. Short/ Long QT: 300 < QTc < 500; no family hx 7. Arrhythmogenic Right Ventricular Dysplasia: No epsilon wave, no inverted Ts in anterior precordium - I reviewed the patient's labwork: CBC, BMP, UA unremarkable Recent Results (from the past 24 hour(s)) Basic Metabolic Panel (non-fasting) Result Value Ref Range Glucose Lvl 91 65 - 199 mg/dL BUN 11 8 - 18 mg/dL Creatinine 0.79 0.70 - 1.20 mg/dL Sodium 138 135 - 145 mmol/L Potassium 3.9 3.5 - 5.0 mmol/L Chloride 99 98 - 107 mmol/L CO2 25 22 - 31 mmol/L Anion Gap 14 5 - 15 mmol/L Calcium 9.1 8.5 - 10.5 mg/dL Estimated GFR >60 >=60 Hemogram Result Value Ref Range WBC 3.4 (L) 4.0 - 10.0 x10(3)/mcL RBC 3.82 (L) 3.93 - 5.22 x10(6)/mcL Hemoglobin 11.8 11.2 - 15.7 gm/dL Hematocrit 33.6 (L) 34.0 - 45.0 % MCV 88.0 79.0 - 94.0 fL MCH 30.9 26.6 - 32.2 pg MCHC 35.1 32.0 - 36.5 gm/dL Platelets 206 145 - 370 x10(3)/mcL RDWSD 46.9 (H) 35.0 - 46.0 fL RDWCV 14.6 (H) 10.9 - 14.4 % MPV 9.9 9.0 - 12.0 fL Differential, Automated Result Value Ref Range Neutrophils % 56.3 % Neutr Abs (ANC) 1.89 1.50 - 6.30 x10(3)/mcL Lymphocytes % 33.9 % Lymphocytes Abs 1.1 1.0 - 3.6 x10(3)/mcL Monocytes % 8.0 % Monocyte Abs 0.3 0.2 - 1.0 x10(3)/mcL Eosinophils % 1.5 % Eosinophils Abs 0.0 0.0 - 0.5 x10(3)/mcL Basophils % 0.3 % Basophils Abs 0.0 0.0 - 0.2 x10(3)/mcL Immature Gran % 0.00 % Elda Gran Abs 0.00 0.00 - 0.05 x10(3)/mcL Blue Tube HOLD Result Value Ref Range Blue Hold Sample in lab. Bassett Hold Result Value Ref Range Bassett Hold Sample in lab. Urinalysis with reflex Culture Result Value Ref Range Glucose UA Negative Negative mg/dL Protein UA Negative Negative mg/dL Bilirubin UA Negative Negative mg/dL Urobilinogen UA Normal Normal mg/dL pH UA 7.0 5.0 - 8.0 Blood UA Negative Negative mg/dL Ketones UA Negative Negative mg/dL Nitrite UA Negative Negative Leukocytes UA Negative Negative mcL Appearance UA Hazy (A) Clear Spec Tillar UA 1.009 1.002 - 1.030 Color UA Straw Yellow RBC UA Not Present 0 - 4 /HPF WBC UA 2 0 - 5 /HPF CaOx Dorcas UA Few (A) None /HPF Culture Reflexed No Assessment and Plan: Assessment: 55 y.o. female with an episode of vasovagal syncope. This is the most likely diagnosis given the preceding nausea, lightheadedness, and stressors described in the HPI and her bradycardia. I also considered a cardiac etiology, however her EKG showed no concerning features as discussed above. I also considered a neurologic etiology, however she had no focal neuro deficits on exam. Given her low BP in the setting of eating and drinking less than normal, I gave her some fluids. UA showed ila/o of UTI or hematuria concerning for stone. She was hemodynamically stable and in NAD throughout her stay. Plan: - Follow up with PCP and ortho re: arm - Return precautions were verbally discussed with the patient and written in the discharge instructions. The patient expressed understanding that she could come back to the ED at any time and agreed tothe follow-up plan. uJdd Deluna MD Resident 02/03/16 1807 ED ATTENDING ATTESTATION NOTE The patient was seen in conjunction with Dr. Deluna, the resident physician. I have independently performed the shah portions of the history and physical exam. I have reviewed the nursing notes, vitalsigns, and all diagnostic studies personally including labs, imaging studies and EKGs. I have discussed the details of the case with the resident and agree with the assessment and plan as described inthe resident note above unless noted otherwise below. Brief Summary: 55y/o woman presents after a typical vasovagal episode with syncope. EKG is normal. Labs are normal. She feels better. She is discharged home. Final Assessment: Vasovagal syncope. Discharged home. Jinny Farfan MD 02/05/16 1504 documented in this encounter Miscellaneous Notes ED Triage - Hazel Ragland RN - 02/03/2016 11:38 AM EST Pt was in ortho clinic when she felt nausea and dizziness, pt was lowered to the floor and reports LOC for a couple seconds. Pt reports slight nausea. Pt denies any numbness or tingling to arms and legs. Pt reports hx of fused disks. Cast in place to rt. Wrist with hand swelling noted. Pt is alert andorientated x3, denies any pain and speaking in complete sentences. Pt reports taking oxycodone this am documented in this encounter Plan of Treatment Upcoming Encounters Date Type Specialty Care Team Description 04/03/2022 TH Visit (TeleHealth) Neurology Pippa Jc [facility] [place] [address] (Wo rk) Scheduled Procedures Name Priority Associated Diagnoses Date/Time COLONOSCOPY, DIAGNOSTIC Encounter for colorectal cancer screening documented as of this encounter Procedures Procedure Name Priority Date/Time Associated Comments Diagnosis EKG 12-LEAD STAT 02/03/2016 1:20 PM Results for this EST procedure are i n the results section. URINALYSIS WITH STAT 02/03/2016 12:56 PM Resul ts for this REFLEX CULTURE EST procedure are in the results section. BASSETT TUBE HOLD STAT 02/03/2016 12:29 PM Result s for this EST procedure are i n the results section. HEMOGRAM STAT 02/03/2016 12:29 PM Results for this EST procedure are i n the results section. DIFFERENTIAL, STAT 02/03/2016 12:29 PM Results for this AUTOMATED EST procedure are i n the results section. BLUE TUBE HOLD STAT 02/03/2016 12:29 PM Result s for this EST procedure are i n the results section. CBC (WITH DIFF) STAT 02/03/2016 12:29 PM EST BASIC METABOLIC STAT 02/03/2016 12:29 PM Resul ts for this PANEL (NON-FASTING) EST procedur e are in the results section. documented in this encounter Results EKG 12 Lead (02/03/2016 1:20 PM EST) Component Value Ref Range Test Analysis Performed Pathologis t Method Time At Signature Ventricular rate 46 BPM MUSE SYSTEM Atrial Rate 46 BPM MUSE SYSTEM P-R Interval 162 ms MUSE SYSTEM QRS Duration 80 ms MUSE SYSTEM Q-T Interval 468 ms MUSE SYSTEM QTC Calculated 409 ms MUSE SYSTEM (Bezet) Calculated P [place] 50 degrees MUSE SYSTEM Calculated R [place] 21 degrees MUSE SYSTEM Calculated T [place] 38 degrees MUSE SYSTEM INTERPRETATION Marked sinus bradycardia MUSE SYSTEM Low voltage QRS Abnormal ECG No previous ECGs available Confirmed by MD LARA ALAN ([id number]) on 02/04/2016 2:07:43 PM Specimen Anatomical Collection Method Collection Time Receive d Time (Source) Location / / Volume Laterality 02/03/2016 1:20 02/04/2016 PM EST 2:07 PM EST Narrative This result has an attachment that is no t available. Jinny Farfan MD ECG ORDERABLES Performing Organization Address City/State/ZIP Code Phon e Number MUSE SYSTEM (ABNORMAL) Urinalysis with reflex Culture (02/03/2016 12:56 PM EST) Patholo gist Method Time Signature Glucose UA Negative Negative [facility] mg/dL [facility] Protein UA Negative Negative [facility] mg/dL [facility] Bilirubin UA Negative Negative [facility] mg/dL [facility] Comment: Clinical correlation required for positi ve Urine Bilirubin results as false positive may occur with some drugs and d rug related products. If a false positive is suspected a serum total bili land should be considered if clinically indicated. Urobilinogen UA Normal Normal mg/dL [facility] pH UA 7.0 5.0 - 8.0 [facility] Blood UA Negative Negative mg/dL [facility] Ketones UA Negative Negative mg/dL [facility] Nitrite UA Negative Negative [facility] Leukocytes UA Negative Negative [facility] Appearance UA Hazy (A) Clear [facility] Spec Tillar UA 1.009 1.002 - 1.030 [facility] Color UA Straw Yellow [facility] RBC UA Not Present 0 - 4 /HPF [facility] WBC UA 2 0 - 5 /HPF [facility] CaOx Dorcas UA Few (A) None /HPF [facility] Culture Reflexed No [facility] Specimen Anatomical Collection Method Collection Time Receive d Time (Source) Location / / Volume Laterality Urine specimen 02/03/2016 12:56 6 (specimen) PM EST 1:19 PM EST Resulting Agency Comment Spec In Lab Jinny Farfan MD URINE ORDERABLES Performing Organization Address City/[facility]/ZIP Code Phon e Number [address] Bassett Hold (02/03/2016 12:29 PM EST) P athologist Signature Bassett Hold Sample in [facility] LABOR[facility]ORY Specimen Anatomical Collection Method Collection Time Receive d Time (Source) Location / / Volume Laterality Blood specimen Venous Draw / 02/03/2016 12:29 02/03/20 16 (specimen) Unknown PM EST 12:43 PM EST Jinny Farfan MD CHEMISTRY ORDERABLES Performing Organization Address City/[facility]/ZIP Code Phon e Number [address] Blue Tube HOLD (02/03/2016 12:29 PM EST) P athologist Signature Blue Hold Sample in [facility] LABORATORY Specimen Anatomical Collection Method Collection Time Receive d Time (Source) Location / / Volume Laterality Blood specimen Venous Draw / 02/03/2016 12:29 02/03/20 16 (specimen) Unknown PM EST 12:43 PM EST Jinny Farfan MD HEMATOLOGY ORDERABLES Performing Organization Address City/[facility]/ZIP Code Phon e Number [address] Differential, Automated (02/03/2016 12:29 PM EST) athologist Signature Neutrophils % 56.3 % [facility] Neutr Abs (ANC) 1.89 1.50 - [facility] 6.30 [facility] x10(3)/[facility] Lymphocytes % 33.9 % [facility] Lymphocytes Abs 1.1 1.0 - 3.6 [facility] x10(3)/[facility] LABORATORY Monocytes % 8.0 % [facility] Monocyte Abs 0.3 0.2 - 1.0 [facility] x10(3)/[facility] LABORATORY Eosinophils % 1.5 % [facility] Eosinophils Abs 0.0 0.0 - 0.5 [facility] x10(3)/[facility] LABORATORY Basophils % 0.3 % [facility] Basophils Abs 0.0 0.0 - 0.2 [facility] x10(3)/[facility] LABORATORY Immature Gran % 0.00 % [facility] Comment: Immature granulocytes(IG's)percentage an d absolute count will include metamyelocytes, myelocytes, and promyelo cytes. Blood smears from CBCs yielding IG's will be scanned manually for concor dance. If this scan disagrees with the automated IG or if promyelocytes are not ed, a manual differential will be performed. Elda Gran Abs 0.00 0.00 - 0.05 x10(3)/[facility] Y [facility] Specimen Anatomical Collection Method Collection Time Receive d Time (Source) Location / / Volume Laterality Blood specimen 02/03/2016 12:29 6 (specimen) PM EST 12:42 PM EST Resulting Agency Comment Spec In Lab Jinny Farfan MD HEMATOLOGY ORDERABLES Performing Organization Address City/State/ZIP Code Phon e Number [address] (ABNORMAL) Hemogram (02/03/2016 12:29 PM EST) athologist Signature WBC 3.4 (L) 4.0 - 10.0 [facility] x10(3)/[facility] LABORATORY RBC 3.82 (L) 3.93 [facility]22 [facility] x10(6)/[facility] Hemoglobin 11.8 11.[address] [facility] 15.7 gm/dL [facility] Hematocrit 33.6 (L) 34.0 - EUNICE DEMARCO 45.0 % [facility] MCV 88.0 79.0 - [facility] 94.0 [facility] LABORAT[facility] MCH 30.9 26.[address] [facility] 32.2 pg [facility] MCHC 35.1 32.0 - [facility] 36.5 gm/dL [facility] Platelets 206 145 - 370 [facility] x10(3)/[facility] LABORATORY RDWSD 46.9 (H) 35.0 [facility] 46.0 [facility] LABORATORY RDWCV 14.6 (H) 10.9 - [facility] 14.4 % [facility] MPV 9.9 9.0 - 12.0 [facility] LABORATORY Specimen Anatomical Collection Method Collection Time Receive d Time (Source) Location / / Volume Laterality Blood specimen 02/03/2016 12:29 6 (specimen) PM EST 12:42 PM EST Resulting Agency Comment Spec In Lab Jinny Farfan MD HEMATOLOGY ORDERABLES Performing Organization Address City/State/[place] [address] Basic Metabolic Panel (non-fasting) (02/03/2016 12:29 PM EST) athologist Signature Glucose Lvl 91 65 - 199 [facility] mg/dL [facility] Comment: Diabetes: >=200 mg/dL plus symp toms BUN 11 8 - 18 mg/dL [facility] Creatinine 0.79 0.70 - 1.20 mg/dL [facility] Comment: Please note that the pediatric reference intervals supplied above were not validated at [facility]. Results from pediatri c patients should be interpreted in conjunction to the patient's age, height and muscle mass. Sodium 138 135 - 145 mmol/L [facility] Potassium 3.9 3.5 - 5.0 mmol/L [facility] Comment: Please note: ??Patients with WBC >100,00 0 may have falsely elevated Potassium levels. ??For accurate Potassium quantif ication in these patients send serum separator tube (gold top) for subsequent determinations. ??Contact the Clinical Chemistry Laboratory if there are any qu estions. Chloride 99 98 - 107 mmol/L [facility] CO2 25 22 - 31 mmol/L [facility] Anion Gap 14 5 - 15 mmol/L [facility] Calcium 9.1 8.5 - 10.5 mg/dL [facility] Estimated GFR >60 >=60 [facility] Comment: This estimated GFR (eGFR) value was calc ulated using the MDRD equation which has been validated on patients between t he ages of 18 and 70. The MDRD should not be used to assess kidney function in patients < 18 years of age or in patients with extremes of body mass, or in patients with acute kidney failure. This value should be multiplied by 1.2 f or patients. For further information please copy and past e the following links into your internet browser. [email or web address] [email or web address] Specimen Anatomical Collection Method Collection Time Receive d Time (Source) Location / / Volume Laterality Blood specimen 02/03/2016 12:29 6 (specimen) PM EST 12:42 PM EST Resulting Agency Comment Spec In Lab Jinny Farfan MD CHEMISTRY ORDERABLES Performing Organization Address City/State/[place] [address] documented in this encounter Visit Diagnoses Diagnosis Vasovagal syncope Syncope and collapse documented in this encounter Administered Medications Inactive Administered Medications - up to 3 most recent administrations Medication Order MAR Action Action Date Dose Rate Site sodium chloride 0.9% 1,000 mL IV Given 02/03/2016 12:53 PM EST bolus Intravenous, ONCE, 1 dose, On Sonal 02/03/16 at 1233 documented in this encounter Active and Recently Administered Medications Times are shown in EST. Scheduled Medication Order 02/01/2016 02/02/2016 02/03/2016 sodium chloride 0.9% 1,000 mL IV bolus (COMPLETED) 1253 (Given - Provider: Hazel Ragland RN) Intravenous, ONCE, 1 dose, Sonal 02/03/16 at 1233 documented in this encounter Care Teams Registered Respiratory Therapist Relationship Specialty Start Date End Date Connie Gayle, ND PCP - General Naturopathic Medicine 01/25/16 09/27/17 documented as of this encounter
--- OUTSIDE RECORDS SUMMARY | 2022-02-15 02:28 | XMS_ITS | Encounter Summary ---
:1960 Author Organization [facility] [place] [address] Care Team Providers Name Role Phone April Cummins APRN Primary Care Provider Encounter Details Date Type Department Care Team Description 01/31/2018 Orders Only Gastroenterology at [facility] Daniela Harrington [facility] [place] [address] Social History Tobacco Use Types Packs/Day [...] Pippa Jc MD [facility] [address] [place], [place] [address] (Wo rk) Scheduled Procedures Name Priority Associated Diagnoses Date/Time COLONOSCOPY, DIAGNOSTIC Encounter for colorectal cancer screening documented as of this encounter Visit Diagnoses Not on filedocumented in this encounter Care Teams Telecommunications Equipment Installer Relationship Specialty Start Date End Date April Cummins APRN PCP - General Internal Medicine 09/28/17 02/27/18 [facility] [place] [address] documented as of this encounter
--- OUTSIDE RECORDS SUMMARY | 2022-02-15 02:28 | XMS_ITS | Encounter Summary ---
:1960 Author Organization [place] [address] Care Team Providers Name Role Phone Riley Gayleeen Gus SHEETS Primary Care Provider Encounter Details Date Type Department Care Team Description 04/21/2016 Telephone Orthopaedics at [facility] Eusebio Dominguez, [facility] [place] [address] [facility] [phone] ORTHOPAEDIC SURG [place], [place] [address] (Wo rk) Social History Tobacco Use Types Packs/Day Years Used Date Never Smoker Smokeless Tobacco: Never Used Alcohol Use Standard Drinks/Week Comments No 0 (1 standard drink = 0.6 oz pure alcoho l) Sex Assigned at Date Recorded Not on file documented as of this encounter Miscellaneous Notes Telephone Encounter - Katie Castaneda - 04/28/2016 4:08 PM EDT Patient scheduled. Telephone Encounter - Eusebio Dominguez MD - 04/26/2016 8:27 AM EDT WE will arrange for non contrast r shoulder MRI and see after Telephone Encounter - Sarah Scott - 04/21/2016 9:32 AM EDT Who is calling: Kalyn Was this a new injury? no Have you had Surgery?no If so when?no Who was the Surgeon?no What is the question: Patient was just seen by Dr Bajwa, explained that her main complaint is not with her back/neck that it is with her shoulder. He is returning care to Dr Dominguez. Before Kalyn returns to OT she would like to have an MRI of her rotator cuff. Please call patient to discuss further Best number to reach the caller: [phone] documented in this encounter Plan of Treatment Upcoming Encounters Date Type Specialty Care Team Description 04/03/2022 TH Visit (TeleHealth) Neurology Pippa Jc MD [facility] er [address], [place] [address] (Wo rk) Scheduled Procedures Name Priority Associated Diagnoses Date/Time COLONOSCOPY, DIAGNOSTIC Encounter for colorectal cancer screening documented as of this encounter Visit Diagnoses Not on filedocumented in this encounter Care Teams Director Safety Relationship Specialty Start Date End Date Connie Gayle ND PCP - General Naturopathic Medicine 01/25/16 09/27/17 documented as of this encounter
--- OUTSIDE RECORDS SUMMARY | 2022-02-15 02:28 | XMS_ITS | Encounter Summary ---
:1960 Author Organization [facility] [place] [address] Care Team Providers Name Role Phone Connie Gayle ND Primary Care Provider Reason for Visit Reason Onset Date Comments Questions 05/03/2016 Encounter Details Date Type Department Care Team Description 05/03/2016 Telephone Orthopaedics at [facility] Eusebio Dominguez, Questions [facility] [place] [address] [facility] [phone] ORTHOPAEDIC SURG [place], [place] [address] (Wo rk) Social History Tobacco Use Types Packs/Day Years Used Date Never Smoker Smokeless Tobacco: Never Used Alcohol Use Standard Drinks/Week Comments No 0 (1 standard drink = 0.6 oz pure alcoho l) Sex Assigned at Date Recorded Not on file documented as of this encounter Miscellaneous Notes Telephone Encounter - Ann Rubi - 05/03/2016 10:56 AM EDT Patient is calling about an upcoming MRI and is wondering if her forearm and hand should be includedbecause her PCP states that problems in her hand with pain and swelling might show nerve impingement or whatever is going on better. Please call her back on home number or cell phone listed. In addition to the above request for her MRI to be extended, she would also like a referral for a second opinion to a neurosurgeon. documented in this encounter Plan of Treatment Upcoming Encounters Date Type Specialty Care Team Description 04/03/2022 TH Visit (TeleHealth) Neurology Pippa Jc MD [facility] er [address] [place], [place] [address] (Wo rk) Scheduled Procedures Name Priority Associated Diagnoses Date/Time COLONOSCOPY, DIAGNOSTIC Encounter for colorectal cancer screening documented as of this encounter Visit Diagnoses Not on filedocumented in this encounter Care Teams French Teacher Relationship Specialty Start Date End Date Connie Gayle ND PCP - General Naturopathic Medicine 01/25/16 09/27/17 documented as of this encounter
--- OUTSIDE RECORDS SUMMARY | 2022-02-15 02:28 | XMS_ITS | Encounter Summary ---
:1960 Author Organization [facility] [place] [address] Care Team Providers Name Role Phone April Cummins APRN Primary Care Provider Encounter Details Date Type Department Care Team Description 01/16/2019 Telephone Urology at [facility] [place] [address] Social History Tobacco Use Types Packs/Day [...] Telephone Encounter - Juan Mercado RN - 01/16/2019 12:58 PM EST Verified patient name and date of Spoke with the pt who is calling to request that her PCP, April Cummins, be faxed her office notes and labs. The fax # is [phone]. Paperwork faxed. documented in this encounter Plan of Treatment Upcoming Encounters Date Type Specialty Care Team Description 04/03/2022 TH Visit (TeleHealth) Neurology Pippa Jc MD [facility] [address] [place], [place] [address] (Wo rk) Scheduled Procedures Name Priority Associated Diagnoses Date/Time COLONOSCOPY, DIAGNOSTIC Encounter for colorectal cancer screening documented as of this encounter Visit Diagnoses Not on filedocumented in this encounter Care Teams Lacquer Dipping Machine Operator Relationship Specialty Start Date End Date April Cummins APRN PCP - General Internal Medicine 11/06/18 11/19/[address] [place] [address] documented as of this encounter
--- OUTSIDE RECORDS SUMMARY | 2022-02-15 02:28 | XMS_ITS | Encounter Summary ---
:1960 Author Organization [facility] [place] [address] Care Team Providers Name Role Phone Connie Gayle ND Primary Care Provider Encounter Details Date Type Department Care Team Description 04/05/2016 Orders Only Orthopaedics at [facility] [address] Social History Tobacco Use Types Packs/Day [...] TH Visit (TeleHealth) Neurology Pippa Jc MD [facility] [address] [place], [place] [address] (Wo rk) Scheduled Procedures Name Priority Associated Diagnoses Date/Time COLONOSCOPY, DIAGNOSTIC Encounter for colorectal cancer screening documented as of this encounter Visit Diagnoses Not on filedocumented in this encounter Care Teams Front End Drupal Developer Relationship Specialty Start Date End Date Connie Gayle ND PCP - General Naturopathic Medicine 01/25/16 09/27/17 documented as of this encounter
--- OUTSIDE RECORDS SUMMARY | 2022-02-15 02:28 | XMS_ITS | Encounter Summary ---
:1960 Author Organization [facility] [place] [address] Care Team Providers Name Role Phone April Cummins APRN Primary Care Provider Reason for Referral Diagnostic Test (Routine) - Closed Specialty Diagnoses / Procedures Referred By Contact Refer red To Contact Radiology Diagnoses Upper abdominal pain Bloating Beth Guerra [facility] Rad Ct Scan Procedures CT Abdomen & Pelvis w Contrast [place] [address] [place] [address] Referral ID Status Reason Start Date Expiration Date Visits V isits Requested Authorized [id number] Closed Specialty 01/31/2018 05/01/2018 1 1 Service Requested Reason for Visit Diagnostic Test (Routine) - Closed Specialty Diagnoses / Procedures Referred By Contact Refer red To Contact Radiology Diagnoses Upper abdominal pain Bloating Beth Guerra [facility] Rad Ct Scan Procedures CT Abdomen & Pelvis w Contrast [place] [address] [place] [address] Referral ID Status Reason Start Date Expiration Date Visits V isits Requested Authorized [id number] Closed Specialty 01/31/2018 05/01/2018 1 1 Service Requested Encounter Details Date Type Department Care Team Description 02/08/[address] Scan at [facility] Sieglinger, Upper abdominal pain; [facility] Beth Velasquez APRN [address] [place] [address] GASTROENTEROLOGY [phone] [place] [address] Social History Tobacco Use Types Packs/Day Years [...] TH Visit (TeleHealth) Neurology Pippa Jc MD [facility] [place] [address] (Wo rk) Scheduled Procedures Name Priority Associated Diagnoses Date/Time COLONOSCOPY, DIAGNOSTIC Encounter for colorectal cancer screening documented as of this encounter Procedures Procedure Name Priority Date/Time Associated Diagnosis Comme nts CT ABDOMEN AND Routine 02/08/2018 11:19 AM Upper abdomi nal pain Results for this PELVIS W CONTRAST EDT Bloating procedure are in the results section. documented in this encounter Results CT Abdomen & Pelvis w Contrast (02/08/2018 11:19 AM EDT) Anatomical Region Laterality Modality Abdomen, Pelvis Computed Tomography Specimen (Source) Anatomical Location Collection Method / Collectio n Time Received Time / Laterality Volume Impressions 02/08/2018 12:54 PM EDT 1. Multiple hepatic hypodensities. The l arger lesions are likely cysts. Smaller 1's are too small to characterize but st able from the prior examination. 2. Small bilateral pleural effusions. 3. Trace of pericardial effusion, thicke johnathan. 4. Additional and ancillary findings are not acute and described in the body of report. Narrative 02/08/2018 12:54 PM EDT EXAMINATION: ??CT ABDOMEN AND PELVIS W CONTRAST CLINICAL HISTORY: ???ileus. ???SBO. ??Pl ease see KUB. TECHNIQUE: Helical CT of the abdomen and pelvis was performed following the intravenous administration of contrast. 67 cc of Omnipaque 350 was given. Oral contrast was administered. COMPARISON: ??Radiograph from 01/23/[address] from 06/15/2017. FINDINGS: Lower chest: Trace of bilateral pleural effusions. Otherwise, lung bases are clear. Trace of pericardial effusion, th ickening. Liver: Multiple hepatic hypodensities. T he larger ones are likely cysts. The smaller ones are too small to characteri ze. The larger hypodense lesions are unchanged compared to prior examination. Bile ducts: Nondilated. Gallbladder: No calcified gallstones. No rmal caliber wall. Pancreas: Normal attenuation without montana darius dilatation. Spleen: Normal. Adrenals: Normal. Kidneys: Stable left renal cysts. The ri ght kidney is unremarkable. No nephrolithiasis and no Ryder on either s mikki. Vasculature: No aneurysm. Lymph Nodes: No enlarged lymph nodes. Bowel: Nondilated, no wall thickening. ? ? Peritoneum and mesentery: No ascites, fr ee air, or loculated fluid collection. No mesenteric inflammation. Abdominal wall: Normal. Urinary Bladder: Normal. Reproductive organs: Normal. Osseous structures: No suspicious lesion s. Procedure Note Analy Powers MD - 02/08/2018 EXAMINATION: CT ABDOMEN AND PELVIS W CO NTRAST CLINICAL HISTORY: ?ileus. ?SBO. Pleas e see KUB. TECHNIQUE: Helical CT of the abdomen and pelvis was performed following the intravenous administration of contrast. 67 cc of Omnipaque 350 was given. Oral contrast was administered. COMPARISON: Radiograph from 01/23/[address] from 06/15/2017. FINDINGS: Lower chest: Trace of bilateral pleural effusions. Otherwise, lung bases are clear. Trace of pericardial effusion, th ickening. Liver: Multiple hepatic hypodensities. T he larger ones are likely cysts. The smaller ones are too small to characteri ze. The larger hypodense lesions are unchanged compared to prior examination. Bile ducts: Nondilated. Gallbladder: No calcified gallstones. No rmal caliber wall. Pancreas: Normal attenuation without montana darius dilatation. Spleen: Normal. Adrenals: Normal. Kidneys: Stable left renal cysts. The ri t kidney is unremarkable. No nephrolithiasis and no Ryder on either s mikki. Vasculature: No aneurysm. Lymph Nodes: No enlarged lymph nodes. Bowel: Nondilated, no wall thickening. Peritoneum and mesentery: No ascites, fr ee air, or loculated fluid collection. No mesenteric inflammation. Abdominal wall: Normal. Urinary Bladder: Normal. Reproductive organs: Normal. Osseous structures: No suspicious lesion s. IMPRESSION 1. Multiple hepatic hypodensities. The l arger lesions are likely cysts. Smaller 1's are too small to characterize but st able from the prior examination. 2. Small bilateral pleural effusions. 3. Trace of pericardial effusion, thicke johnathan. 4. Additional and ancillary findings are not acute and described in the body of report. Beth Guerra APRN [facility] [place] ORDERABLES documented in this encounter Visit Diagnoses Diagnosis Upper abdominal pain Abdominal pain, other specified site Bloating Flatulence, eructation, and gas pain documented in this encounter Administered Medications Inactive Administered Medications - up to 3 most recent administrations Medication Order MAR Action Action Date Dose Rate Site iohexol (OMNIPAQUE) 350 mg/mL Given 02/08/2018 11:05 AM EDT 66 m Ls solution 0-200 mL 0-200 mL, Intravenous, ONCE PRN, 1 dose, Starting on Sun02/08/18 at 1104, Until Sun02/08/18 at 1105, Per Protocol, Warning Vesicant/Irritant Medication , Radiology Contrast, Routine iohexol (OMNIPAQUE) 350 mg/mL solution 5 0 mL Given 02/08/2018 9:00 AM EDT 50 mLs 50 mL, Oral, ONCE PRN, 1 dose, Starting on Sun02/08/18 at 1104, Until Sun02/08/18 at 0900, Per Protocol, Warning Vesicant/Irritant Medication , Routine documented in this encounter Care Teams Animal Ecologist Relationship Specialty Start Date End Date April Cummins APRN PCP - General Internal Medicine 09/28/17 02/27/[address] [place] [address] documented as of this encounter
--- OUTSIDE RECORDS SUMMARY | 2022-02-15 02:28 | XMS_ITS | Encounter Summary ---
:1960 Author Organization [facility] [place] [address] Care Team Providers Name Role Phone Nalini Connie Gus SHEETS Primary Care Provider Reason for Referral Physical Therapy (Routine) - Closed Specialty Diagnoses / Procedures Referred By Contact Refer red To Contact Physical Therapy Diagnoses Displaced fracture of distal end of right ulna, Eusebio Altamirano MD [facility] [place] [address] Referral ID Status Reason Start Date Expiration Date Visits V isits Requested Authorized [id number] Closed Evaluate and 03/08/2016 09/04/2016 12 12 Treat Reason for Visit Reason Comments Follow-up R ulna fx DOI 02/09/16 Encounter Details Date Type Department Care Team Description 03/08/2016 Office Visit [facility]ed[facility] [place] [facility] [place], Displaced fracture of [facility] Eusebio Velasquez MD distal end of right Drive [facility], [place] [address]ENTER [phone] ORTHOPAEDIC SURGERY [place], [place] [address] Social History Tobacco Use Types Packs/Day Years Used Date Never Smoker Smokeless Tobacco: Never Used Alcohol Use Standard Drinks/Week Comments No 0 (1 standard drink = 0.6 oz pure alcoho l) Sex Assigned at Date Recorded Not on file documented as of this encounter Last Filed Vital Signs Vital Sign Reading Time Taken Comments Blood Pressure 99/50 03/08/2016 10:38 AM EDT Pulse 55 03/08/2016 10:38 AM EDT Temperature - - Respiratory Rate - - Oxygen Saturation - - Inhaled Oxygen Concentration - - Weight 56.7 kg (125 lb) 03/08/2016 10:38 AM EDT verbal Height 167.6 cm (5' 6) 03/08/2016 10:38 AM EDT verbal Body Mass Index 20.18 03/08/2016 10:38 AM EDT documented in this encounter Progress Notes Eusebio Dale MD - 03/08/2016 11:27 AM EDT I refilled a script for Vicodin but lowered it to 5mg dosage Eusebio Dale MD - 03/08/2016 10:45 AM EDT Prior Hx This 55 yo white female fell on the ice and hit her R arm against her car door and had immediate pain and had X Rays at [facility] which showed a mildly comminuted and mildly displaced and shortened distal 1/3 ulnar fracture She had a placement of a cast by Dr Martinez but she was unable to tolerate that and he placed her in long arm splints X rays in the splints show there may have been a mild degree of further displacement but the over all alignment is still very acceptable - not much in the way of early callus We decided to place her in a long arm cast and when apply that on the last visit she fainted and needed to go to the ER where they felt she had a vaso vagal episode Since the cast was still soft while she fainted as we got her recumbent we were able to mold the cast at that time and actually improved the alignment with that When last seen we went with a short arm cast Today X Rays show a good amount of callus ROS - negative for cardiac resp ENT GI Gu Endo Skin Smoking and ETOH - negative PE - [...] all fingers and can oppose the thumb A: Solid Healing distal 1/3 ulnar fx - mildly displaced in acceptable alignment Plan We will place her in a wrist brace for an additional three to four weeks She will use a soft sponge to regain finger motion and will work at home to get full elbow motion I will see back with X Rays in 4 weeks out of the brace after PT Carmen Guy - 03/08/2016 10:15 AM EDT Kalyn Darnell Case presents to the clinic for a cast off per Dr. Dale. The short arm cast was intact upon arrival. The patient was explained how the cast saw works and the cast was removed. The patient tolerated this procedure well. The patient's skin was intact.The patient was then sent to x-ray. documented in this encounter Miscellaneous Notes Addendum Note - Eusebio Dale MD - 03/08/2016 11:27 AM EDT Addended by: EUSEBIO DALE on: 03/08/2016 11:27 AM Modules accepted: Orders Addendum Note - Eusebio Dale MD - 03/08/2016 11:02 AM EDT Addended by: EUSEBIO DALE on: 03/08/2016 11:02 AM Modules accepted: Orders documented in this encounter Plan of Treatment Upcoming Encounters Date Type Specialty Care Team Description 04/03/2022 TH Visit (TeleHealth) Neurology Pippa Jc MD [facility] [address], [place] [address] (Wo rk) Scheduled Procedures Name Priority Associated Diagnoses Date/Time COLONOSCOPY, DIAGNOSTIC Encounter for colorectal cancer screening Scheduled Referrals Name Type Priority Associated Diagnoses Order S chedule Referral to Outpatient Referral Routine Displaced fracture Or dered: Physical Therapy of distal end of 016 right ulna, sequela documented as of this encounter Results XR wrist complete minimum 3 views Right (GENERIC) (04/05/2016 9:56 AM EDT) Anatomical Region Laterality Modality Right Digital Radiography Specimen (Source) Anatomical Location Collection Method / Collectio n Time Received Time / Laterality Volume Impressions 04/05/2016 10:28 AM EDT IMPRESSION: Increased healing of distal ulnar fractu re. Narrative 04/05/2016 10:28 AM EDT EXAMINATION: XR WRIST COMPLETE MINIMUM 3 VIEWS RIGHT CLINICAL HISTORY: Follow up distal ulnar fx TECHNIQUE: 3 views right wrist COMPARISON: March 08, 2016 FINDINGS: Healing distal ulnar fracture. Extent of healing has increased since the previous study. The alignment is stable and anatomic. Diffuse disuse demineralization. Procedure Note Judd Mccullough MD - 04/05/2016Form atting of this note might be different from the original. EXAMINATION: XR WRIST COMPLETE MINIMUM 3 VIEWS RIGHT CLINICAL HISTORY: Follow up distal ulnar fx TECHNIQUE: 3 views right wrist COMPARISON: March 08, 2016 FINDINGS: Healing distal ulnar fracture. Extent of healing has increased since the previous study. The alignment is stable and anatomic. Diffuse disuse demineralization. IMPRESSION IMPRESSION: Increased healing of distal ulnar fractu re. Eusebio Dale MD IMG DX ORDERABLES documented in this encounter Visit Diagnoses Diagnosis Displaced fracture of distal end of righ t ulna, sequela Displaced fracture of distal end of righ t ulna, sequela documented in this encounter Care Teams Rn Physician Office Relationship Specialty Start Date End Date Connie Gayle ND PCP - General Naturopathic Medicine 01/25/16 09/27/17 documented as of this encounter
--- OUTSIDE RECORDS SUMMARY | 2022-02-15 02:28 | XMS_ITS | Encounter Summary ---
:1960 Author Organization [facility] [place] [address] Care Team Providers Name Role Phone Connie Gayle ND Primary Care Provider Reason for Visit Reason Comments Right Arm Fracture right ulna 02/09/2016 Encounter Details Date Type Department Care Team Description 02/16/2016 Office Visit Orthopa[place] [facility] [place], Displaced fracture of [facility] Eusebio Velasquez MD distal end of right Drive [facility], [place] [address] [place] [address] ORTHOPAEDIC SURGERY [place], [place] [address] Social History Tobacco Use Types Packs/Day Years Used Date Never Smoker Smokeless Tobacco: Never Used Alcohol Use Standard Drinks/Week Comments No 0 (1 standard drink = 0.6 oz pure alcoho l) Sex Assigned at Date Recorded Not on file documented as of this encounter Last Filed Vital Signs Vital Sign Reading Time Taken Comments Blood Pressure 90/48 02/16/2016 9:30 AM EDT Pulse 61 02/16/2016 9:30 AM EDT Temperature 36.7 ??C (98.1 ??F) 02/16/2016 9:30 AM EDT Respiratory Rate 22 02/16/2016 9:30 AM EDT Oxygen Saturation - - Inhaled Oxygen Concentration - - Weight 54.4 kg (120 lb) 02/16/2016 9:30 AM EDT Height 167.6 cm (5' 6) 02/16/2016 9:30 AM EDT Body Mass Index 19.37 02/16/2016 9:30 AM EDT documented in this encounter Progress Notes Berhane Villarreal - 02/16/2016 11:00 AM EDT Kalyn Burgos presents to the cast room for a cast on per Dr. Dale. The patient's skin is intact. The patient is going into a well padded short arm cast on the right side. The patient tolerated the procedure well. The patient was given instructions for cast care and was given instruction to call the nurse with any questions or concerns. Carmen Guy - 02/16/2016 10:54 AM EDT Kalyn Burgos presents to the clinic for a cast off per Dr. Dale. The long arm cast was intact upon arrival. The patient was explained how the cast saw works and the cast was removed. The patients skin was intact.The patient felt dizzy after the cast was removed. The patient remained laying down until she felt better. JONN Joseph assisted patient to x-ray in wheelchair. Eusebio Dale MD - 02/16/2016 10:30 AM EDT This 55 yo white female fell on the ice and hit her R arm against her car door and had immediate pain and had X Rays at [facility] which showed a mildly comminuted and mildly displaced and shortened distal 1/3 ulnar fracture?? She had a placement of a cast [...] and actually improved the alignment with that Today X Rays show we have been able to maintain that improved position and there is a fair amount orcallus ROS - negative for cardiac resp ENT GI Gu Endo Skin ?? Smoking and ETOH - negative PE - WD thin white female in NAD - alert and oriented x 3 Skin - a fair amount of dorsal ecchymosis R wrist - she is still painful at the fx site and somewhat stiff at the elbow NV check - she has had some degree of pre exisiting CTS and may have had more symptoms with the swelling but she has sensation over all fingers and can oppose the thumb A: Healing distal 1/3 ulnar fx - mildly displaced in acceptable alignment Plan We will cast her in a short arm cast for an additional three weeks ?? She will use a soft sponge to regain finger motion and will work at home to get full elbow motion I will see back with X Rays in three weeks out of plaster documented in this encounter Miscellaneous Notes Addendum Note - Eusebio Dale MD - 02/16/2016 10:43 AM EDT Addended by: EUSEBIO DALE on: 02/16/2016 10:43 AM Modules accepted: Orders documented in this encounter Plan of Treatment Upcoming Encounters Date Type Specialty Care Team Description 04/03/2022 TH Visit (TeleHealth) Neurology Pippa Jc MD [facility] [address] [place] [address] (Wo rk) Scheduled Procedures Name Priority Associated Diagnoses Date/Time COLONOSCOPY, DIAGNOSTIC Encounter for colorectal cancer screening documented as of this encounter Results XR wrist complete minimum 3 views Right (GENERIC) (03/08/2016 10:18 AM EDT) Anatomical Region Laterality Modality Right Digital Radiography Specimen (Source) Anatomical Location Collection Method / Collectio n Time Received Time / Laterality Volume Impressions 03/08/2016 11:39 AM EDT IMPRESSION: Healing distal ulnar diaphyseal fracture . Narrative 03/08/2016 11:39 AM EDT EXAMINATION: XR WRIST COMPLETE MINIMUM 3 VIEWS RIGHT CLINICAL HISTORY: Follow up distal 1/3 u lnar fracture TECHNIQUE: 3 views COMPARISON: February 16, 2016 FINDINGS: Osseous demineralization. No appreciable change in alignment of distal ulnar diaphyseal fracture with fracture lines remaining visible but with evidence of healing manifested by osseous bridging a nd periosteal new bone formation. No new fracture identified. Soft tissues appear unremarkable. Procedure Note Luis Ricardo MD - 03/08/2016 EXAMINATION: XR WRIST COMPLETE MINIMUM 3 VIEWS RIGHT CLINICAL HISTORY: Follow up distal 1/3 u lnar fracture TECHNIQUE: 3 views COMPARISON: February 16, 2016 FINDINGS: Osseous demineralization. No appreciable change in alignment of distal ulnar diaphyseal fracture with fracture lines remaining visible but with evidence of healing manifested by osseous bridging a nd periosteal new bone formation. No new fracture identified. Soft tissues appear unremarkable. IMPRESSION IMPRESSION: Healing distal ulnar diaphyseal fracture . Eusebio Dale MD IMG DX ORDERABLES documented in this encounter Visit Diagnoses Diagnosis Displaced fracture of distal end of righ t ulna, sequela Displaced fracture of distal end of righ t ulna, sequela documented in this encounter Care Teams Hand Crocheter Relationship Specialty Start Date End Date Connie Gayle ND PCP - General Naturopathic Medicine 01/25/16 09/27/17 documented as of this encounter
--- OUTSIDE RECORDS SUMMARY | 2022-02-15 02:28 | XMS_ITS | Encounter Summary ---
:1960 Author Organization [facility] [place] [address] Care Team Providers Name Role Phone April Cummins APRN Primary Care Provider Reason for Visit Reason Onset Date Comments Medication Refill 11/29/2017 Encounter Details Date Type Department Care Team Description 11/29/2017 Refill Gastroenterology at [facility] Suzan Taylor CMA [facility] [address] Social History Tobacco Use Types Packs/Day Years Used Date Never Smoker Smokeless Tobacco: Never Used Alcohol Use Standard Drinks/Week Comments No 0 (1 standard drink = 0.6 oz pure alcoho l) Sex Assigned at Date Recorded Not on file documented as of this encounter Miscellaneous Notes Telephone Encounter - Suzan Taylor CMA - 11/29/2017 12:54 PM EST Patient had not tried and failed the formularies per the insurance company. Change medication to the preferred, and called the patient to let her know the provider said no alcohol while on the Flagyl medication. She understood, and asked that be sent to [facility]. documented in this encounter Plan of Treatment Upcoming Encounters Date Type Specialty Care Team Description 04/03/2022 TH Visit (TeleHealth) Neurology Pippa Jc MD [facility] [place] [address] [place], [place] [address] (Wo rk) Scheduled Procedures Name Priority Associated Diagnoses Date/Time COLONOSCOPY, DIAGNOSTIC Encounter for colorectal cancer screening documented as of this encounter Visit Diagnoses Not on filedocumented in this encounter Care Teams Continuing Education Instructor Relationship Specialty Start Date End Date April Cummins APRN PCP - General Internal Medicine 09/28/17 02/27/[address] [place] [address] documented as of this encounter
--- OUTSIDE RECORDS SUMMARY | 2022-02-15 02:28 | XMS_ITS | Encounter Summary ---
:1960 Author Organization [facility] [place] [address] Care Team Providers Name Role Phone April Cummins APRN Primary Care Provider Reason for Referral Physical Therapy (Routine) - Closed Specialty Diagnoses / Procedures Referred By Contact Refer red To Contact Diagnoses Constipation, unspecified constipation type Pelvic floor dysfunction Beth Guerra APRN Unknown [facility] [place] [address] Referral ID Status Reason Start Date Expiration Date Visits V isits Requested Authorized [id number] Closed Evaluate and 02/07/2018 08/06/2018 12 12 Treat Encounter Details Date Type Department Care Team Description 02/07/2018 Orders Only Gastroenterology at [facility] [place], Constipation, unspecified co nstipation type; [facility] Arleth Velasquez APR[place] [address] [facility] [phone] [place] [address] Social History Tobacco Use Types Packs/Day Years Used Date Never Smoker Smokeless Tobacco: Never Used Alcohol Use Standard Drinks/Week Comments No 0 (1 standard drink = 0.6 oz pure alcoho l) Sex Assigned at Date Recorded Not on file documented as of this encounter Plan of Treatment Upcoming Encounters Date Type Specialty Care Team Description 04/03/2022 TH Visit (TeleHealth) Neurology Pippa Jc MD [facility] [address] [place], [place] [address] (Wo rk) Scheduled Procedures Name Priority Associated Diagnoses Date/Time COLONOSCOPY, DIAGNOSTIC Encounter for colorectal cancer screening Scheduled Referrals Name Type Priority Associated Diagnoses Order S chedule Referral to Outpatient Referral Routine Constipation, Ordered : Physical Therapy unspecified 02/07/2018 constipation typ e Pelvic floor dysfunction documented as of this encounter Visit Diagnoses Diagnosis Constipation, unspecified constipation t ype Pelvic floor dysfunction Pelvic muscle wasting documented in this encounter Care Teams Egg Breaker Relationship Specialty Start Date End Date April Cummins APRN PCP - General Internal Medicine 09/28/17 02/27/[address] [place] [address] documented as of this encounter
--- OUTSIDE RECORDS SUMMARY | 2022-02-15 02:28 | XMS_ITS | Encounter Summary ---
:1960 Author Organization [facility] [place] [address] Care Team Providers Name Role Phone April Cummins APRN Primary Care Provider Reason for Visit Reason Onset Date Comments Medication Refill 02/07/2019 Encounter Details Date Type Department Care Team Description 02/07/2019 Refill Allergy at [facility] Shavonne Brink MD [facility] [place] [address] ALLERGY DEPT [phone] [place], [place] [address] (Wo rk) Social History Tobacco [...] this encounter Miscellaneous Notes Telephone Encounter - Lily Crawley LPN - 02/07/2019 10:36 AM EDT Per [place] Medicaid, patient must try and fail 2 of the following: -Flonase -Omnaris -Zetonna -Nasonex -Nasacort, etc... Also must have documented treatment failure to loratadine (OTC) OR cetirizine (OTC) AND a preferred nasal corticosteroid used in conjunction. New prescription pended to Dr. Brink, in place of the Azelastine 0.1% spray. documented in this encounter Plan of Treatment Upcoming Encounters Date Type Specialty Care Team Description 04/03/2022 TH Visit (TeleHealth) Neurology Pippa Jc MD [facility] [address] [place], [place] [address] (Wo rk) Scheduled Procedures Name Priority Associated Diagnoses Date/Time COLONOSCOPY, DIAGNOSTIC Encounter for colorectal cancer screening documented as of this encounter Visit Diagnoses Not on filedocumented in this encounter Care Teams Co Founder And President Relationship Specialty Start Date End Date April Cummins APRN PCP - General Internal Medicine 11/06/18 11/19/[address] [place] [address] documented as of this encounter
--- OUTSIDE RECORDS SUMMARY | 2022-02-15 02:28 | XMS_ITS | Encounter Summary ---
:1960 Author Organization [facility] [place] [address] Care Team Providers Name Role Phone April Cummins APRN Primary Care Provider Reason for Visit Consultation (Routine) - Closed Specialty Diagnoses / Procedures Referred By Contact Refer red To Contact Urology Diagnoses INCREASED URINARY FREQUENCE AND URGENCY, UA AND PSA NEGATIVE, NO RESPONSE TO DITROPAN April Cummins APRN [facility] [address] [place] [id number] Referral ID Status Reason Start Date Expiration Date Visits V isits Requested Authorized [id number] Closed Consult, 09/25/2018 09/25/2019 1 1 [facility] Encounter Details Date Type Department Care Team Description 12/04/2018 Office Visit Urology at [facility] Martha Osmany, Lower urinary tract symptoms (LUTS); [facility] KALE Riley History of nephrolithiasis; Drive [facility] Renal cyst, acquired; [place], [place] DR DAMON (stress urinary incontinence, female ); [id number] [address] Cystocele, midline [phone] [place], [place] [address] Social History Tobacco Use Types Packs/Day Years [...] Sign Reading Time Taken Comments Blood Pressure 97/60 12/04/2018 9:14 AM EST Pulse 57 12/04/2018 9:14 AM EST Temperature - - Respiratory Rate - - Oxygen Saturation 98% 12/04/2018 9:14 AM EST Inhaled Oxygen Concentration - - Weight - - Height - - Body Mass Index - - documented in this encounter Progress Notes Clay Ray APRN - 12/04/2018 9:00 AM EST UROLOGY NEW PATIENT ASSESSMENT Patient Name: Xavier Burgos Patient Primary Care Provider: April Cummins APRN Referring Provider: April Cummins APRN History of Present Illness: Xavier Cuevas is an 58 y.o. year old woman, seen at the request of April Cummins APRN who presents for evaluation and assessment of frequency and urgency. Notes from PCP have been received and reviewed. Today, Xavier Burgos presents with a history of irritative voiding symptoms/urgency/frequency and urge incontinence. She was seen in 08/2018 by [facility] where her urine culture and UA were negative. Her incontinence had resolved. She was noted to have a renal cyst, which was not particularly conc erning, renal US was recommended in 2018. Per PCP notes, pt has failed ditropan. Urine culture: 11/08/2018: contaminated She states that she felt she had a UTI when she first seen by Dr. Langford. The stone was not caught, she did not see it pass. Stent was placed. She thought she had a UTI at that time. She states that shedid have a diagnosed renal stone. She did not tolerate the stent well. She states she did also get another UTI episode with left flank pain. No imaging since her symptoms started. She also has Danny's going on. Two episodes of urinary infections/pyelo she feels. She has a history of cystitis as a younger adult. She states her PCP did treat her with 11 days of abx. She feels well today urologically generally, but wonders if something is starting. She states she has leaked In the past, but not sure with urge or with NELSON. She does have a headache today with some blurry vision. She wonders if she has some new vaginal prolapse with labial swelling. She has a diesel locomotive engineer that is treating her with vaginal estradiol. Fells she has systemic yeast. She voids every 2 hours during the day and 0-1 times at night. She has bladder pressure that wakes her. She has sleep apnea. She was wetting the bed for a while, but not recently. This was prior to the first infection. No gross hematuria. Bowels with IBS for years. She has LLQ inflammation at times. She drinks no coffee, no tea. She drinks 2 litres of water. Stress bothers her symptoms. She meditates and does yoga. 05/2018: per labs, normal renal function 0.96 ROS: Constitutional: No fevers, chills, weight gain/loss, excessive fatigue. HEENT: Denies new problems with vision or hearing, sore throat, hoarseness. Has some intermittent vision issues. Cardiovascular: Denies chest pain, palpitations, shortness of breath, ankle swelling, claudication. Respiratory: Denies cough, hemoptysis, wheeze. Gastrointestinal: Denies nausea, vomiting, abdominal pain, diarrhea, constipation, blood per rectum. Neurological: Denies headaches, dizziness, double vision, weakness of one side of the body. Musculoskeletal: Denies bone pain, joint pain, muscle weakness or myalgias. Heme/Lymph: Denies easy bleeding or bruising. Endocrine: Denies diabetes or thyroid disease. Skin: Denies changing moles or rashes. Psych: Denies depression or anxiety. Gyne: G 1 P1 1 csection menopause: age mid 50s. No symptoms now. Feels better with vaginal estrogen and thyroid Patient Active Problem List Diagnosis Code ??? Left ulnar fracture S5.A ??? 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 Disorder of muscle, ligament, and fascia M62.9 ??? Pelvic floor dysfunction M62.89 ??? Chronic constipation K59.09 ??? Mixed stress and urge urinary incontinence N39.46 anxiety/depression Hx lyme Past Surgical History: Procedure Laterality Date ??? SHOULDER ARTHROSCOPY csection Appendectomy Back fusion Family history: none urologic Social: . No smoking, had second hand smoke. No etoh. OBJECTIVE FINDINGS: Vitals: recorded on the flow sheet - normal. Pleasant woman in no acute distress. Abdomen: The abdomen is soft, non tender with no masses. There is no hepatosplenomegaly. The bladder is not palpable. There is no CV angle tenderness. Pelvic: The external genitalia are normal with normal hair distribution and no lesions. The meatus is in a normal location with a normal configuration. There is mobility of the bladder neck. The urethra is nontender. There are no urethral masses. The patient does leak in the supine position with a valsalva and with coughing. There is a Gr. I cystocele and a Gr.I rectocele. There are no pelvic masses. The patient can [place] effectively. The uterus is normal and the adenexa are nonpalpable. The uterus is well supported. Normal reported vaginal sensation. Small amount of white vaginal discharge. Rectal: The anus and perineum are normal. Rectal sphincter tone is normal. There is not any levatorani tenderness, and there are no rectal masses. Musculoskeletal: grossly normal, normal gait Neurologic: grossly normal PVR with bladder scanner by my review: 0-50 cc. U/A by my review: neg but UA and culture sent CT 01/2018 done for ileus. Kidneys with contrast. Simple left renal cyst. No concerning reading on final report-cysts were noted as stable. I reviewed the imaging Impression/Plan: Renal cyst-likely simple Renal US in Spring 2018 to ensure no changes in renal cyst. This is likely simple. If simple on US,no further follow up ? History of ureteral stone No stones noted on imaging in 01/2018 here. She has had a stent with Dr. Langford but no stone was found, she did not feel she passed a stone. Will see if she has stones on Spring renal US. Hydration so that she is aiming to drink about 2 litres of mostly water per day. She will do this ? Pyelo vs possible pelvic pain We discussed her symptoms. I do not have urine cultures on file to review. If she has UTI sx, she will call here and we will send the culture order locally so we can get the results. If she develops fever/chills or flan pain/hematuria, she will go to her local ED and we will request the cultures. We will track her cultures. If she does have culture proven pyelo or UTIs, we will consider daily prophylaxis (concerns for yeast), dmannose (?see if she tolerates the sugar), or methenamine. If she has persistent UTIs, will pursue CT and cystoscopy. If microhematuria without infection, will pursue CT and cystoscopy. If she develops pneumaturia or fecaluria, will pursue CT and cystoscopy. If her cultures are negative, we can consider possible IC if there are no other contributors to hersymptoms (ie bowel issues, UTIs, hematuria etc). We can consider amitriptyline, neurontin, elmiron, instillations, motrin/piroxicam, atarax. Stress moderation, meditation and self care. She will continue this. Grade I cystocele and she empties well She has no bothersome symptoms. She prefers to monitor. She will let me know if this worsens NELSON NELSON on exam today. She is not sure when she leaks otherwise. She will keep track of her symptoms I emphasized timed and double voiding, moderation of irritants for bladder pain (IC list given) or with urge-she will monitor, moderation of bowels We discussed pelvic floor PT for NELSON or if she has pelvic pain. She would be content with this if necessary in the future We discussed impressa. She may consider We discussed sudafed or imipramine off label for possible tx with medications, or surgical therapies. We will defer additional therapies at this time. ? Yeast infection vs recent use of vaginal cream She was recently treated for vaginal yeast and feels better, she also did use her vaginal cream (estrace) recently. Given this, if she feels her vaginal symptoms are worsening, she will see her FOSTER PARENT for swab/management. Estrace per her diesel locomotive engineer All of her questions were answered to her apparent satisfaction. epf in 03/2019 with me with renal US. Clay Harvey APRN documented in this encounter Plan of Treatment Upcoming Encounters Date Type Specialty Care Team Description 04/03/2022 TH Visit (TeleHealth) Neurology Pippa Jc MD [facility] [place] [address] (Wo rk) Scheduled Procedures Name Priority Associated Diagnoses Date/Time COLONOSCOPY, DIAGNOSTIC Encounter for colorectal cancer screening documented as of this encounter Procedures Procedure Name Priority Date/Time Associated Comments Diagnosis _URINALYSIS WITH Routine 12/04/2018 9:54 Lower urinary tract Results for this MICROSCOPIC AM EST symptoms (LUTS) procedure ar e in the results section. URINE CULTURE Routine 12/04/2018 9:54 Lower urinary tract Res ults for this AM EST symptoms (LUTS) procedure ar e in the results section. documented in this encounter Results US [...] report, please contact t kristy number below. 3: 17 PM ? Adela Sylvester, Staff Physician Electronically Signed Final Report ?? 03:25 pm Narrative 04/17/2019 3:26 PM EDT Renal ?(Signed Final 04/17/2019 03:25 pm) PATIENT INFO: ID #: ? [id number] ?: ??[birth year] (58 yrs) Name: ? XAVIER DANIELS CASE ?Visit Date: 04/17/2019 01:20 pm PERFORMED BY: Performed By: ? Gordon WAGNER, Valeriy delatorre Attending: ?Higinio GARNER, Adela Soriano Resident: ? Sanjeev GARNER, Kike Betancourt Referred By: ?CLAY Centeno Location: ? [place] SERVICE(S) PROVIDED: ??URETRO - Retroperitoneal Complete - I [id number] ? [id number] INDICATIONS: ??hx nephrolithiasis and renal cyst-? c [...] 1.9. Procedure Note Adela Sylvester MD - 04/17/2019R[place] k[place]ley of this note might be different from the original. Renal (Sig ronak Final 04/17/2019 03:25 pm) PATIENT INFO: ID #: [id number] : [birth year] (58 yrs) Name: XAVIER DANIELS CASE Visit Date: 04/17/2019 01:20 pm PERFORMED BY: Performed By: Jose L Leyva RDMS Attending: Adela Sylvester MD Resident: Kike Pace MD Referred By: CLAY HARVEY Location: [place] SERVICE(S) PROVIDED: URETRO - Retroperitoneal Complete - [id number] INDICATIONS: hx nephrolithiasis and renal cyst-? ch anges COMPARISON: Ultrasound: 02/07/19, CT: 02/08/18 RIGHT KIDNEY: [...] report, please contact t kristy number below. 3: 17 PM Adela Sylvester, [facility] Electronically Signed Final Report 03:25 pm Clay Harvey APRN IMG US GEN ORDERABLES (ABNORMAL) Urine culture Clean Catch Urine (12/04/2018 9:54 AM EST) Component Value Ref Test Analysis Performed At Patholo gist Range Method Time Signature Urine Culture 10,000-49,000 EUNICE cfu/ml [facility] (A) LABORATORY Organism Streptococcus [facility] () [facility] LABORAT[facility] Specimen (Source) Anatomical Collection Method Collection Time Re ceived Time Location / / Volume Laterality Urine specimen 12/04/2018 9:54 9 obtained by clean AM EST 11:[address] catch procedure (specimen) Resulting Agency Comment Spec In Lab Clay Harvey APRN MICROBIOLOGY - GENERAL ORDER PATRICK Performing Organization Address City/State/[place] [address] (ABNORMAL) _Urinalysis with microscopic (12/04/2018 9:54 AM EST) [facility] gist Method Time Signature Glucose UA Negative Negative [facility] mg/dL [facility] Protein UA Negative Negative [facility] mg/dL [facility] LAB[facility]ORY Bilirubin UA Negative Negative [facility] mg/dL [facility] Comment: Clinical correlation required for positi ve Urine Bilirubin results as false positive may occur with some drugs and d rug related products. If a false positive is suspected a serum total bili land should be considered if clinically indicated. Urobilinogen UA Normal Normal mg/dL [facility] LABORATORY pH UA 6.0 5.0 - 8.0 [facility] LABORATORY Blood UA Negative Negative mg/dL [facility] Ketones UA Negative Negative mg/dL [facility] Nitrite UA Negative Negative [facility] Leukocytes UA Negative Negative [facility] LABORATORY Appearance UA Clear Clear [facility] LABORATORY Spec Iliff UA 1.010 1.002 - 1.030 [facility] LABORAT[facility] Color UA Yellow Yellow [facility] LABORATORY RBC UA 1 0 - 4 /HPF [facility] WBC UA 2 0 - 5 /HPF [facility] Bacteria UA Rare (A) None /HPF [facility] LABORAT[facility] Squam Epith UA 2 <=4 /HPF [facility] LABORATORY Specimen Anatomical Collection Method Collection Time Receive d Time (Source) Location / / Volume Laterality Urine specimen 12/04/2018 9:54 9 (specimen) AM EST 10:58 AM EST Resulting Agency Comment Spec In Lab Clay Harvey APRN URINE ORDERABLES Performing Organization Address City/State/[place] [address] documented in this encounter Visit Diagnoses Diagnosis Lower urinary tract symptoms (LUTS) Other symptoms involving urinary system History of nephrolithiasis Personal history of urinary calculi Renal cyst, acquired Acquired cyst of kidney NELSON (stress urinary incontinence, female ) Female stress incontinence Cystocele, midline History of nephrolithiasis Personal history of urinary calculi Renal cyst, acquired Acquired cyst of kidney documented in this encounter Care Teams License Examiner Relationship Specialty Start Date End Date April Cummins APRN PCP - General Internal Medicine 11/06/18 11/19/[address] [place] [address] documented as of this encounter
--- OUTSIDE RECORDS SUMMARY | 2022-02-15 02:28 | XMS_ITS | Encounter Summary ---
:1960 Author Organization [facility] Address [facility] [address] [place] [address] Care Team Providers Name Role Phone Connie Gayle SUDEEP Primary Care Provider Reason for Visit Reason Onset Date Comments Other 05/03/2016 Patient called very confused, asking questions that should be directed to her PCP or Dr. Dominguez Encounter Details Date Type Department Care Team Description 05/03/2016 Telephone MRI at [facility] Radiology, Dr Alvarado (Patient called [facility] Temporary very conf used, asking [place] [address] be directed to her PCP [phone] Potter r) Social History Tobacco Use Types Packs/Day Years Used Date Never Smoker Smokeless Tobacco: Never Used Alcohol Use Standard Drinks/Week Comments No 0 (1 standard drink = 0.6 oz pure alcoho l) Sex Assigned at Date Recorded Not on file documented as of this encounter Miscellaneous Notes Telephone Encounter - Teresa Ramires - 05/03/2016 12:14 PM EDT Patient called in a confused state saying that a hospital in [place] was supposed to send a prior MRI and that she is getting bombarded with [facility] since that is who would send the imaging and the reports. She is unwilling at this time to do this. She then went into great detail about her cervical spine problems and issues with her finger and elbow. She would like the MRI Shoulder scan that is scheduled to have the lower arm and hand included. I explained that an order for that would need to be received and that in all likelihood the addition to the shoulder scan would result in the need to reschedule because of the additional time it would take to add the arm and hand. I encouraged her to contact either her PCP or Dr. Dominguez who ordered the shoulder MRI. She agreed to be transferred to Orthopedics-05.03.2016 [facility] documented in this encounter Plan of Treatment Upcoming Encounters Date Type Specialty Care Team Description 04/03/2022 TH Visit (TeleHealth) Neurology Pippa Jc MD [facility] [place] [address] (Wo rk) Scheduled Procedures Name Priority Associated Diagnoses Date/Time COLONOSCOPY, DIAGNOSTIC Encounter for colorectal cancer screening documented as of this encounter Visit Diagnoses Not on filedocumented in this encounter Care Teams Manager E Learning Relationship Specialty Start Date End Date Connie Gayle, SUDEEP PCP - General Naturopathic Medicine 01/25/16 09/27/17 documented as of this encounter
--- OUTSIDE RECORDS SUMMARY | 2022-02-15 02:28 | XMS_ITS | Encounter Summary ---
:1960 Author Organization [facility] [place] [address] Care Team Providers Name Role Phone Connie Gayle Gus SHEETS Primary Care Provider Encounter Details Date Type Department Care Team Description 03/08/2016 Hospital Encounter XRay at [facility] [place], Displaced fracture [address] Eusebio Velasquez MD of distal [facility] [place]na, [facility] [id number] CENTER [phone] [place] [address] Social History Tobacco Use Types Packs/Day Years [...] by mouth 0 Tablet 3 times daily. HYDROcodone-acetaminophen Take 1 tablet by 15 tablet 0 02/2404/21/2016 (NORCO) 5-325 mg mouth every 6 hours TabletIndications: as needed for Pain. Displaced fracture of distal end of right ulna, sequela documented as of this encounter Plan of Treatment Upcoming Encounters Date Type Specialty Care Team Description 04/03/2022 TH Visit (TeleHealth) Neurology Pippa Jc MD [facility] [place] [address] (Wo rk) Scheduled Procedures Name Priority Associated Diagnoses Date/Time COLONOSCOPY, DIAGNOSTIC Encounter for colorectal cancer screening documented as of this encounter Procedures Procedure Name Priority Date/Time Associated Diagnosis Comme nts XR WRIST 3 VIEWS Routine 03/08/2016 10:18 AM Displaced fractur e Results for this RIGHT EDT of distal end of procedure a re in right ulna, sequela the resu lts section. documented in this encounter Results XR wrist complete minimum [...] Healing distal ulnar diaphyseal fracture . Eusebio Dominguez MD IMG DX ORDERABLES documented in this encounter Visit Diagnoses Diagnosis Displaced fracture of distal end of righ t ulna, sequela documented in this encounter Care Teams Dramatic Teacher Relationship Specialty Start Date End Date Connie Gayle ND PCP - General Naturopathic Medicine 01/25/16 09/27/17 documented as of this encounter
--- OUTSIDE RECORDS SUMMARY | 2022-02-15 02:28 | XMS_ITS | Encounter Summary ---
:1960 Author Organization [place] [address] Care Team Providers Name Role Phone April Cummins APRN Primary Care Provider Encounter Details Date Type Department Care Team Description 02/06/2019 Notes Only Allergy at [facility] [place] [address] Social History Tobacco Use Types Packs/Day Years Used Date Never Smoker Smokeless Tobacco: Never Used Comments: Exposure to smoking in the [place] until the age of 16 Alcohol Use Standard Drinks/Week Comments No 0 (1 standard drink = 0.6 oz pure alcoho l) Sex Assigned at Date Recorded Not on file documented as of this encounter Progress Notes Ad Dodge LPN - 02/06/2019 3:58 PM EDT PA for azelastine initiated via covermymeds. Awaiting response. documented in this encounter Plan of Treatment Upcoming Encounters Date Type Specialty Care Team Description 04/03/2022 TH Visit (TeleHealth) Neurology Pippa Jc MD [facility] [place] [address] (Wo rk) Scheduled Procedures Name Priority Associated Diagnoses Date/Time COLONOSCOPY, DIAGNOSTIC Encounter for colorectal cancer screening documented as of this encounter Visit Diagnoses Not on filedocumented in this encounter Care Teams Turner Machine Operator Relationship Specialty Start Date End Date April Cummins APRN PCP - General Internal Medicine 11/06/18 11/19/[address] [place] [address] documented as of this encounter
--- OUTSIDE RECORDS SUMMARY | 2022-02-15 02:28 | XMS_ITS | Encounter Summary ---
:1960 Author Organization [facility] [place] [address] Care Team Providers Name Role Phone Connie Gayle ND Primary Care Provider Reason for Visit Reason Onset Date Comments Arm Pain 03/03/2016 Encounter Details Date Type Department Care Team Description 03/03/2016 Telephone Orthopaedics at [facility] Eus[place] Dominguez, Arm Pain [facility] [place] [address] [facility] [phone] ORTHOPAEDIC SURG [place], [place] [address] (Wo rk) Social History Tobacco Use Types Packs/Day Years Used Date Never Smoker Smokeless Tobacco: Never Used Alcohol Use Standard Drinks/Week Comments No 0 (1 standard drink = 0.6 oz pure alcoho l) Sex Assigned at Date Recorded Not on file documented as of this encounter Miscellaneous Notes Telephone Encounter - Diana Smith RN - 03/03/2016 3:37 PM EDT S/P mildly comminuted and mildly displaced and shortened distal 1/3 ulnar fracture?? She calls to report that she is still having significant nerve type pain that radiates up into her neck. She is wondering if she has some type of impingement. Pain medications do help but she does not want to be on them prison. She has a follow up appointment scheduled for next week with new x-raysbefore. We discussed different ways to elevate the arm and let the neck rest. Continuing with the medications and ice for now. She will discuss all of this with Dr Dominguez at her visit. She knows that she can call and speak with one of the residents over the weekend or come to the ED if the pain worsens or not alleviated with conservative measures. documented in this encounter Plan of Treatment Upcoming Encounters Date Type Specialty Care Team Description 04/03/2022 TH Visit (TeleHealth) Neurology Pippa Jc MD [facility] [address] [place], [place] [address] (Wo rk) Scheduled Procedures Name Priority Associated Diagnoses Date/Time COLONOSCOPY, DIAGNOSTIC Encounter for colorectal cancer screening documented as of this encounter Visit Diagnoses Not on filedocumented in this encounter Care Teams Membership Counselor Relationship Specialty Start Date End Date Connie Gayle ND PCP - General Naturopathic Medicine 01/25/16 09/27/17 documented as of this encounter
--- OUTSIDE RECORDS SUMMARY | 2022-02-15 02:28 | XMS_ITS | Encounter Summary ---
:1960 Author Organization [facility] [place] [address] Care Team Providers Name Role Phone PlacidoApril zavala APRN Primary Care Provider Encounter Details Date Type Department Care Team Description 02/08/2018 Laboratory Appointment Lab 3L Eunice Rainey Pre-procedural [facility] laboratory [facility] [place] [id number] Social History Tobacco Use Types Packs/Day Years Used Date Never Smoker Smokeless Tobacco: Never Used Alcohol Use Standard Drinks/Week Comments No 0 (1 standard drink = 0.6 oz pure alcoho l) Sex Assigned at Date Recorded Not on file documented as of this encounter Plan of Treatment Upcoming Encounters Date Type Specialty Care Team Description 04/03/2022 TH Visit (TeleHealth) Neurology Pippa Jc MD [facility] [place] [address] [place], [place] [address] (Wo rk) Scheduled Procedures Name Priority Associated Diagnoses Date/Time COLONOSCOPY, DIAGNOSTIC Encounter for colorectal cancer screening documented as of this encounter Procedures Procedure Name Priority Date/Time Associated Diagnosis Comme nts CREATININE STAT 02/08/2018 9:15 AM Pre-procedural Result s for this EDT laboratory examination proce dure are in the results section. documented in this encounter Results Creatinine (02/08/2018 9:15 AM EDT) P athologist Signature Creatinine 0.78 0.70 - EUNICE RAINEY 1.20 mg/dL [facility] Estimated GFR >60 >=60 [facility] Comment: The reported eGFR should be multiplied b y 1.2 for patients. The MDRD is not an appropriate measure o f renal function for patients with body mass extremes or in patients with acute kidney failure. [email or web address]/DHnkdep [email or web address]/DHMCnkf Specimen Anatomical Collection Method Collection Time Receive d Time (Source) Location / / Volume Laterality Blood specimen 02/08/2018 9:15 8 (specimen) AM EDT 9:20 AM EDT Resulting Agency Comment Spec In Lab Beth Guerra APRN CHEMISTRY ORDERABLES Performing Organization Address City/State/ZIP Code [place] [address] documented in this encounter Visit Diagnoses Diagnosis Pre-procedural laboratory examination documented in this encounter Care Teams Atomizer Assembler Relationship Specialty Start Date End Date April Cummins APRN PCP - General Internal Medicine 09/28/17 02/27/[address] [place] [address] documented as of this encounter
--- OUTSIDE RECORDS SUMMARY | 2022-02-15 02:28 | XMS_ITS | Encounter Summary ---
:1960 Author Organization [facility] [address] Care Team Providers Name Role Phone Connie Gayle Gus SHEETS Primary Care Provider Encounter Details Date Type Department Care Team Description 02/03/2016 Hospital Encounter XRay at [facility] Minsinger, Displaced fracture [address] [facility] [address] Eusebio Velasquez MD of [facility] [place] [address] encounter [phone] [place] [address] Social History Tobacco Use Types Packs/Day Years [...] times daily. documented as of this encounter Plan of Treatment Upcoming Encounters Date Type Specialty Care Team Description 04/03/2022 TH Visit (TeleHealth) Neurology Pippa Jc MD [facility] [address] [place], [place] [address] (Wo rk) Scheduled Procedures Name Priority Associated Diagnoses Date/Time COLONOSCOPY, DIAGNOSTIC Encounter for colorectal cancer screening documented as of this encounter Procedures Procedure Name Priority Date/Time Associated Diagnosis Comme nts XR WRIST 3 VIEWS Routine 02/03/2016 3:00 PM Displaced fractur e Results for this RIGHT EST of distal end of procedure a re in right ulna, initial the resu lts encounter section. documented in this encounter Results XR wrist complete minimum 3 views Right (GENERIC) (02/03/2016 3:00 PM EST) Anatomical Region Laterality Modality Right Digital Radiography Specimen (Source) Anatomical Location Collection Method / Collectio n Time Received Time / Laterality Volume Impressions 02/03/2016 3:10 PM EST IMPRESSION: Slightly improved fracture alignment. Narrative 02/03/2016 3:10 PM EST EXAMINATION: XR WRIST COMPLETE MINIMUM 3 VIEWS RIGHT CLINICAL HISTORY: Follow up after re vinicius ting TECHNIQUE: 3 views the right wrist. COMPARISON: 01/30/2016. FINDINGS: Interval removal of a last are splint and placement of a fiberglass cast. Minimally less displacement of the distal fracture fragment by the ulnar shaft fracture site with slightly improv ed anatomic alignment, previously 4.5 mm relative displacement, presently proxima lly 2 mm. No other interval findings. Procedure Note Shu Cope MD - 02/03/2016Formatt ing of this note might be different from the original. EXAMINATION: XR WRIST COMPLETE MINIMUM 3 VIEWS RIGHT CLINICAL HISTORY: Follow up after re vinicius ting TECHNIQUE: 3 views the right wrist. COMPARISON: 01/30/2016. FINDINGS: Interval removal of a last are splint and placement of a fiberglass cast. Minimally less displacement of the distal fracture fragment by the ulnar shaft fracture site with slightly improv ed anatomic alignment, previously 4.5 mm relative displacement, presently proxima lly 2 mm. No other interval findings. IMPRESSION IMPRESSION: Slightly improved fracture alignment. Eusebio Dominguez MD IMG DX ORDERABLES documented in this encounter Visit Diagnoses Diagnosis Displaced fracture of distal end of righ t ulna, initial encounter documented in this encounter Care Teams Registered Private Duty Nurse Relationship Specialty Start Date End Date Connie Gayle ND PCP - General Naturopathic Medicine 01/25/16 09/27/17 documented as of this encounter
--- OUTSIDE RECORDS SUMMARY | 2022-02-15 02:28 | XMS_ITS | Encounter Summary ---
:1960 Author Organization [facility] [place] [address] Care Team Providers Name Role Phone Connie Gayle ND Primary Care Provider Encounter Details Date Type Department Care Team Description 02/16/2016 Clinical [place] [address] Social History Tobacco Use Types Packs/Day [...] TH Visit (TeleHealth) Neurology Pippa Jc MD [facility] [place], [place] [address] (Wo rk) Scheduled Procedures Name Priority Associated Diagnoses Date/Time COLONOSCOPY, DIAGNOSTIC Encounter for colorectal cancer screening documented as of this encounter Visit Diagnoses Not on filedocumented in this encounter Care Teams Building Attendant Relationship Specialty Start Date End Date Connie Gayle ND PCP - General Naturopathic Medicine 01/25/16 09/27/17 documented as of this encounter
--- OUTSIDE RECORDS SUMMARY | 2022-02-15 02:28 | XMS_ITS | Encounter Summary ---
:1960 Author Organization [facility] [place] [address] Care Team Providers Name Role Phone April Cummins APRN Primary Care Provider Reason for Referral Diagnostic Test (Routine) - Closed Specialty Diagnoses / Procedures Referred By Contact Refer red To Contact Radiology Diagnoses Upper abdominal pain Bloating Beth Guerra Mhmh Rad Ct Scan Procedures CT Abdomen & Pelvis w Contrast [employer]IONAL OPERATIONS DIRECTOR [facility] [place] [facility] [place] [address] [place] [address] Referral ID Status Reason Start Date Expiration Date Visits V isits Requested Authorized [id number] Closed Specialty 01/31/2018 05/01/2018 1 1 Service Requested Encounter Details Date Type Department Care Team Description 01/25/2018 Orders Only Gastroenterology at [facility] Siejayshree, Upper abdominal pain; [facility] [place] [address] [facility] [phone] [place] [address] Social History Tobacco Use Types Packs/Day Years Used Date Never Smoker Smokeless Tobacco: Never Used Alcohol Use Standard Drinks/Week Comments No 0 (1 standard drink = 0.6 oz pure alcoho l) Sex Assigned at Date Recorded Not on file documented as of this encounter Progress Notes Beth Guerra APRN - 01/25/2018 7:49 AM EST Have called patient to review results of abdominal x-ray and concern for ileus or developing small bowel obstruction. Recommend CT scan of abdomen and pelvis with contrast. She has agreed to this plan. documented in this encounter Plan of Treatment Upcoming Encounters Date Type Specialty Care Team Description 04/03/2022 TH Visit (TeleHealth) Neurology Pippa Jc MD [facility] [address] [place], [place] [address] (Wo rk) Scheduled Procedures Name Priority Associated Diagnoses Date/Time COLONOSCOPY, DIAGNOSTIC Encounter for colorectal cancer screening documented as of this encounter Results CT Abdomen & Pelvis [...] kidney is unremarkable. No nephrolithiasis and no [place] on either s mikki. Vasculature: No aneurysm. Lymph Nodes: No enlarged lymph nodes. Bowel: Nondilated, no wall thickening. ? ? Peritoneum and mesentery: No ascites, fr ee air, or loculated fluid collection. No mesenteric inflammation. Abdominal wall: Normal. Urinary Bladder: Normal. Reproductive organs: Normal. Osseous structures: No suspicious lesion s. Procedure Note Gerardo Powers MD - 02/08/2018 EXAMINATION: CT ABDOMEN [...] kidney is unremarkable. No nephrolithiasis and no [place] on either s mikki. Vasculature: No aneurysm. [...] the body of report. Beth Guerra APRN IMG CT ORDERABLES documented in this encounter Visit Diagnoses Diagnosis Upper abdominal pain Abdominal pain, other specified site Bloating Flatulence, eructation, and gas pain Upper abdominal pain Abdominal pain, other specified site Bloating Flatulence, eructation, and gas pain documented in this encounter Care Teams Submarine Element Coordinator Relationship Specialty Start Date End Date April Cummins APRN PCP - General Internal Medicine 09/28/17 02/27/18 [address] [place] [address] documented as of this encounter
--- OUTSIDE RECORDS SUMMARY | 2022-02-15 02:28 | XMS_ITS | Encounter Summary ---
:1960 Author Organization [facility] [place] [address] Care Team Providers Name Role Phone AnaliliaCynthia danghleen Gus SHEETS Primary Care Provider Encounter Details Date Type Department Care Team Description 06/01/2016 Hospital Encounter XRay at [facility] [place], Chronic right [address] [place] [address] Eusebio Velasquez MD shoulder pain [facility] [address] [place] [phone] [place] [address] Social History Tobacco Use Types Packs/Day Years [...] by mouth 0 Tablet 3 times daily. HYDROcodone-ibuprofen Take 1 tablet by 20 tablet 0 05/11/20 16 04/17/2019 (VICOPROFEN) 7.5-200 mg mouth every 8 hours TabletIndications: as needed for Pain. Chronic right shoulder pain ibuprofen (ADVIL;MOTRIN) Take 200 mg by mouth 0 06/21/2016 200 mg Tablet every 6 hours as needed for Pain. aspirin 325 mg Tablet Take 325 mg by mouth 0 06/21/2016 daily. magnesium 250 mg Tablet Take 1 tablet by 0 11/23/2017 mouth daily. zinc sulfate (ZINCATE) Take 220 mg by mouth 0 06/21/2016 220 (50) mg Capsule daily. documented as of this encounter Progress Notes Viky Colunga, CNA - 05/24/2016 2:25 PM EDT Images from the original note were not included. PRE-PROCEDURE NOTE FOR JOINT INJECTION UNDER FLUOROSCOPY Date of : 1960 Age: 55 y.o. PCP: DEONTE TA ND Referring Physician (if different): Dr. Dominguez Indication: Chronic right shoulder pain Planned Procedure: Right glenohumeral joint steroid injection with local anesthetic under fluoroscopy Chief Complaint/Diagnosis: Right shoulder pain Pertinent Past Medical/Surgical History: 55 yo female with history of partial thickness rotator cufftear seen on MRI. Dr. Dominguez recommends fluoro-guided steroid injection of the right shoulder. Questioning whether pain is from shoulder or neck. MRI with glenohumeral joint and AC joint arthropathyand possibly early adhesive capsulitis. Patient Active Problem List Diagnosis Code ??? Left ulnar fracture S52.202A ??? 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 No known health problems Past Surgical History Procedure Laterality Date ??? Shoulder arthroscopy No Known Allergies Current Outpatient Prescriptions on File Prior to Encounter Medication Sig Dispense Refill ??? HYDROcodone-ibuprofen (VICOPROFEN) 7.5-200 mg Tablet Take 1 tablet by mouth every 8 hours as needed for Pain. 20 tablet 0 ??? ibuprofen (ADVIL;MOTRIN) 200 mg Tablet Take 200 mg by mouth every 6 hours as needed for Pain. ??? aspirin 325 mg Tablet Take 325 mg by mouth daily. ??? magnesium 250 mg Tablet Take 1 tablet by mouth daily. ??? zinc sulfate (ZINCATE) 220 (50) mg Capsule Take 220 mg by mouth daily. ??? FLUoxetine (PROZAC) 10 mg Tablet Take 10 mg by mouth 3 times daily. No current facility-administered medications on file prior to encounter. Pertinent ROS: as per HPI Pertinent Family History: non contributory Social History: n/a Labs: Lab Results Component Value Date WBC 3.4 (L) 02/03/2016 HCT 33.6 (L) 02/03/2016 PLATELET 206 02/03/2016 BUN 11 02/03/2016 Imaging: Assessment / Plan: Chronic right shoulder pain Planned Procedure: Right glenohumeral joint steroid injection with local anesthetic under fluoroscopy Medications to discontinue: None Prophylactic antibiotic: None Planned access site / position: Right glenohumeral joint documented in this encounter Plan of Treatment Upcoming Encounters Date Type Specialty Care Team Description 04/03/2022 TH Visit (TeleHealth) Neurology Pippa Jc MD [facility] [address] [place], [place] [address] (Wo rk) Scheduled Procedures Name Priority Associated Diagnoses Date/Time COLONOSCOPY, DIAGNOSTIC Encounter for colorectal cancer screening documented as of this encounter Procedures Procedure Name Priority Date/Time Associated Diagnosis Comme nts XR FLUORO INJECTION Routine 06/01/2016 3:36 PM Chronic right Results for this DRAINAGE JOINT LG EDT shoulder pain procedure are in RIGHT the results section. documented in this encounter Results XR Fluoro Injection Drainage Joint Lg Right (06/01/2016 3:36 PM EDT) Anatomical Region Laterality Modality Right Digital Radiography Specimen (Source) Anatomical Location Collection Method / Collectio n Time Received Time / Laterality Volume Impressions 06/01/2016 3:49 PM EDT Uneventful right shoulder injection under fluoroscopy. Procedure performed by Tanvir Nino. No attending radiologist was present. Resident/Fellow: None present Attending: Cristi Lowery 06/01/2016 3:49 PM EDT HISTORY: partial thickness tearing rotator cuff - articular side RIGHT SHOULDER INJECTION UNDER FLUOROSCO PY TECHNIQUE: After an extensive conversati on with the patient regarding risks and benefits, oral and written consent were obtained. ??A pre- procedural time-out was performed as per [facility] protocol. The patient was placed supine on [...] reviewed with patient. Procedure Note Viky Colunga, CNA - 06/01/2016Form atting of this note might be different from the original. HISTORY: partial thickness tearing rotat or cuff - articular side RIGHT SHOULDER INJECTION UNDER FLUOROSCO PY TECHNIQUE: After an extensive conversati on with the patient regarding risks and benefits, oral and written consent were obtained. A pre- procedural time-out was performed as per [facility] protocol. The patient was placed supine on [...] unde r fluoroscopy. Procedure performed by Tanvir Nino PRN. No attending radiologist was present. Resident/Fellow: None present Attending: Cristi Eusebio Dominguez MD IM FLUORO ORDERABLES documented in this encounter Visit Diagnoses Diagnosis Chronic right shoulder pain Pain in joint, shoulder region documented in this encounter Administered Medications Inactive Administered Medications - up to 3 most recent administrations Medication Order MAR Action Action Date Dose Rate Site ROpivacaine (PF) 5 mg/mL (0.5 %) 4 Given 06/01/2016 4:00 PM EDT mL with triamcinolone acetonide 40 mg injection Intra-articular, ONCE, 1 dose, On Sonal 06/01/16 at 1600 documented in this encounter Care Teams Building Materials Sales Attendant Relationship Specialty Start Date End Date Deonte Ta ND PCP - General Naturopathic Medicine 01/25/16 09/27/17 documented as of this encounter
--- OUTSIDE RECORDS SUMMARY | 2022-02-15 02:28 | XMS_ITS | Encounter Summary ---
:1960 Author Organization [facility] [place] [address] Care Team Providers Name Role Phone April Cummins APRN Primary Care Provider Encounter Details Date Type Department Care Team Description 01/23/2018 Clinical Support Rheumatology at [facility] oCnnie Murrell APRN Myalgia [facility] [place] [address] RHEUMATOLOGY DEP [place], [place] [address] (Wo rk) Social History Tobacco Use Types Packs/Day Years Used Date Never Smoker Smokeless Tobacco: Never Used Alcohol Use Standard Drinks/Week Comments No 0 (1 standard drink = 0.6 oz pure alcoho l) Sex Assigned at Date Recorded Not on file documented as of this encounter Progress Notes Connie Murrell APRN - 01/23/2018 1:00 PM EST Attended education ONLY Fibromyalgia Shared Medical Appointment documented in this encounter Plan of Treatment Upcoming Encounters Date Type Specialty Care Team Description 04/03/2022 TH Visit (TeleHealth) Neurology Pippa Jc MD [facility] er [place] [address] (Wo rk) Scheduled Procedures Name Priority Associated Diagnoses Date/Time COLONOSCOPY, DIAGNOSTIC Encounter for colorectal cancer screening documented as of this encounter Visit Diagnoses Diagnosis Myalgia Mylagia and myositis, unspecified documented in this encounter Care Teams Manager Documentation Relationship Specialty Start Date End Date April Cummins APRN PCP - General Internal Medicine 09/28/17 02/27/[address] [place] [address] documented as of this encounter
--- OUTSIDE RECORDS SUMMARY | 2022-02-15 02:28 | XMS_ITS | Encounter Summary ---
:1960 Author Organization [facility] [place] [address] Care Team Providers Name Role Phone Connie Gayle ND Primary Care Provider Reason for Referral Consultation (Routine) - Closed Specialty Diagnoses / Procedures Referred By Contact Refer red To Contact Orthopaedics Diagnoses Osteoarthritis of cervical spine with myelopathy Eusebio Dale Zleb Spine 3d MD [facility] [place] [address] [place] [address] Referral ID Status Reason Start Date Expiration Date Visits V isits Requested Authorized [id number] Closed Consult, 04/19/2016 04/19/2017 1 1 Test & Treat Reason for Visit Reason Comments Symptom, Back cervical Encounter Details Date Type Department Care Team Description 04/19/2016 Office Visit Orthopaedics at [facility] [place] [facility] Eusebio Velasquez MD cervical spine with [facility] [place] [address] CENTER [phone] [place] [address] Social History Tobacco Use Types Packs/Day Years Used Date Never Smoker Smokeless Tobacco: Never Used Alcohol Use Standard Drinks/Week Comments No 0 (1 standard drink = 0.6 oz pure alcoho l) Sex Assigned at Date Recorded Not on file documented as of this encounter Last Filed Vital Signs Vital Sign Reading Time Taken Comments Blood Pressure 98/41 04/19/2016 9:32 AM EDT Pulse 57 04/19/2016 9:32 AM EDT Temperature - - Respiratory Rate - - Oxygen Saturation - - Inhaled Oxygen Concentration - - Weight 54.4 kg (120 lb) 04/19/2016 9:32 AM EDT pt repo rted Height 167.6 cm (5' 6) 04/19/2016 9:32 AM EDT pt repo rted Body Mass Index 19.37 04/19/2016 9:32 AM EDT documented in this encounter Progress Notes Eusebio Dale MD - 04/19/2016 9:43 AM EDT This 55 yo white female has been [...] do not have the pre op MRI ROS - unchanged PE - WD/Wn white [...] Spine DJD S/P fusion Plan: We will have her see the Spine Clinic here She can continue OT for her wrist documented in this encounter Miscellaneous Notes Addendum Note - Eusebio Dale MD - 04/19/2016 9:54 AM EDT Addended by: EUSEBIO DALE on: 04/19/2016 09:54 AM Modules accepted: Orders documented in this encounter Plan of Treatment Upcoming Encounters Date Type Specialty Care Team Description 04/03/2022 TH Visit (TeleHealth) Neurology Pippa Jc MD [facility] [address] [place], [place] [address] (Wo rk) Scheduled Procedures Name Priority Associated Diagnoses Date/Time COLONOSCOPY, DIAGNOSTIC Encounter for colorectal cancer screening Scheduled Referrals Name Type Priority Associated Diagnoses Order S chedule Referral to Spine Outpatient Referral Routine Osteoarthritis o f Ordered: Center cervical spine with 04/19/20 16 myelopathy documented as of this encounter Visit Diagnoses Diagnosis Osteoarthritis of cervical spine with my elopathy documented in this encounter Care Teams Lubricating Engineer Relationship Specialty Start Date End Date Connie Gayle, SUDEEP PCP - General Naturopathic Medicine 01/25/16 09/27/17 documented as of this encounter
--- OUTSIDE RECORDS SUMMARY | 2022-02-15 02:28 | XMS_ITS | Encounter Summary ---
:1960 Author Organization [facility] [place] [address] Care Team Providers Name Role Phone Connie Gayle SUDEEP Primary Care Provider Encounter Details Date Type Department Care Team Description 06/15/2017 Hospital Encounter Radiology Library at Yeny Arita MD [facility] [place] [address] [place] [address] [phone] (Wo rk) Social History Tobacco Use Types Packs/Day Years Used Date Never Smoker Smokeless Tobacco: Never Used Alcohol Use Standard Drinks/Week Comments No 0 (1 standard drink = 0.6 oz pure alcoho l) Sex Assigned at Date Recorded Not on file documented as of this encounter Medications at Time of Discharge Medication Sig Dispensed Refills Start Date End Date FLUoxetine (PROZAC) 10 Take 10 mg by mouth 3 0 mg Tablet times daily. UNABLE TO FIND Tumeric 1-2 tablets 0 1 daily HYDROcodone-ibuprofen Take 1 tablet by 20 tablet 0 05/11/20 16 04/17/2019 (VICOPROFEN) 7.5-200 mg mouth every 8 hours TabletIndications: as needed for Pain. Chronic right shoulder pain magnesium 250 mg Tablet Take 1 tablet by 0 11/23/2017 mouth daily. documented as of this encounter Plan of Treatment Upcoming Encounters Date Type Specialty Care Team Description 04/03/2022 TH Visit (TeleHealth) Neurology Pippa Jc MD [facility] [place] [address] (Wo rk) Scheduled Procedures Name Priority Associated Diagnoses Date/Time COLONOSCOPY, DIAGNOSTIC Encounter for colorectal cancer screening documented as of this encounter Procedures Procedure Name Priority Date/Time Associated Diagnosis Comme nts FILM LIBRARY Routine 06/15/2017 12:00 AM Results for this STORAGE ONLY CT EDT procedure ar e in ABDOMEN AND PELVIS the resul ts section. documented in this encounter Results Film Library- Storage Only CT Abdomen & Pelvis (06/15/2017 12:00 AM EDT) Specimen (Source) Anatomical Location Collection Method / Collectio n Time Received Time / Laterality Volume Narrative RAD - 01/31/2018 1:30 PM EST This result has an attachment that is no t available. This exam is for storage only and is aut o-finalizing. Yeny Manuel MD [facility] FILM LIBRARY ORDERABLES Performing Organization Address City/State/ZIP Code Phon e Number [facility] [place] documented in this encounter Visit Diagnoses Not on filedocumented in this encounter Care Teams Vinyl Dipper Relationship Specialty Start Date End Date Connie Gayle ND PCP - General Naturopathic Medicine 01/25/16 09/27/17 documented as of this encounter
--- OUTSIDE RECORDS SUMMARY | 2022-02-15 02:29 | XMS_ITS | Encounter Summary ---
:1960 [place] [address] Care Team Providers Name Role Phone Unavailable Primary Care Provider Unavailable Encounter Details Date Type Department Care Team Description 11/04/2015 Hospital Encounter Radiology Library at Yeny Arita MD [facility] [place] [address] [place] [address] [phone] (Wo rk) Social History Tobacco Use Types Packs/Day Years Used Date Never Assessed Sex Assigned at Date Recorded Not on file documented as of this encounter Plan of Treatment Upcoming Encounters Date Type Specialty Care Team Description 04/03/2022 TH Visit (TeleHealth) Neurology Pippa Jc MD [place], [place] [address] (Wo rk) Scheduled Procedures Name Priority Associated Diagnoses Date/Time COLONOSCOPY, DIAGNOSTIC Encounter for colorectal cancer screening documented as of this encounter Procedures Procedure Name Priority Date/Time Associated Diagnosis Comme nts FILM LIBRARY Routine 11/04/2015 12:00 AM Results for this STORAGE ONLY CT EST procedure ar e in ABDOMEN AND PELVIS the resul ts section. documented in this encounter Results Film Library- Storage Only CT Abdomen & Pelvis (11/04/2015 12:00 AM EST) Specimen (Source) Anatomical Location Collection Method / Collectio n Time Received Time / Laterality Volume Narrative RAD - 01/31/2018 1:32 PM EST This result has an attachment that is no t available. This exam is for storage only and is aut o-finalizing. Yeny Manuel MD IMG FILM LIBRARY ORDERABLES Performing Organization Address City/State/ZIP Code Phon e Number [facility] [place] documented in this encounter Visit Diagnoses Not on filedocumented in this encounter
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
--- OUTSIDE RECORDS SUMMARY | 2022-02-15 02:29 | XMS_ITS | Encounter Summary ---
:1960 [place] [address] Care Team Providers Name Role Phone Unavailable Primary Care Provider Unavailable Encounter Details Date Type Department Care Team Description 01/16/2016 Hospital Encounter Radiology Library at [facility] [place] [address] Social History Tobacco Use Types Packs/Day Years Used Date Never Assessed Sex Assigned at Date Recorded Not on file documented as of this encounter Plan of Treatment Upcoming Encounters Date Type Specialty Care Team Description 04/03/2022 TH Visit (TeleHealth) Neurology Pippa Jc MD [facility] [address] [place] [address] (Wo rk) Scheduled Procedures Name Priority Associated Diagnoses Date/Time COLONOSCOPY, DIAGNOSTIC Encounter for colorectal cancer screening documented as of this encounter Procedures Procedure Name Priority Date/Time Associated Diagnosis Comme nts FILM LIBRARY Routine 01/16/2016 12:00 AM Pain Results for this STORAGE ONLY DX EST procedure ar e in ELBOW the results section. documented in this encounter Results Film Library- Storage only DX Elbow (01/16/2016 12:00 AM EST) Specimen (Source) Anatomical Location Collection Method / Collectio n Time Received Time / Laterality Volume Narrative SHANE WALKER - 01/27/2016 11:21 AM EST See PACS for result report. Dr Aileen Valdivia IMG FILM LIBRARY ORDERABLES Performing Organization Address City/State/ZIP Code Phon e Number [facility] [place] documented in this encounter Visit Diagnoses Diagnosis Pain Generalized pain documented in this encounter
--- OUTSIDE RECORDS SUMMARY | 2022-02-15 02:29 | XMS_ITS | Encounter Summary ---
:1960 [place] [address] Care Team Providers Name Role Phone Unavailable Primary Care Provider Unavailable Encounter Details Date Type Department Care Team Description 10/12/2015 Hospital Encounter Radiology Library at Yeny Arita MD [facility] [place] [address] [place] [address] [phone] (Wo rk) Social History Tobacco Use Types Packs/Day Years Used Date Never Assessed Sex Assigned at Date Recorded Not on file documented as of this encounter Plan of Treatment Upcoming Encounters Date Type Specialty Care Team Description 04/03/2022 TH Visit (TeleHealth) Neurology Pippa Jc MD [place], [place] [address] (Wo rk) Scheduled Procedures Name Priority Associated Diagnoses Date/Time COLONOSCOPY, DIAGNOSTIC Encounter for colorectal cancer screening documented as of this encounter Procedures Procedure Name Priority Date/Time Associated Diagnosis Comme nts FILM LIBRARY Routine 10/12/2015 12:00 AM Results for this STORAGE ONLY DX EST procedure ar e in ABDOMEN the results section. documented in this encounter Results Film Library- Storage Only DX Abdomen (10/12/2015 12:00 AM EST) Specimen (Source) Anatomical Location Collection Method / Collectio n Time Received Time / Laterality Volume Narrative RAD - 01/31/2018 1:34 PM EST This result has an attachment that is no t available. This exam is for storage only and is aut o-finalizing. Yeny Manuel MD IMG FILM LIBRARY ORDERABLES Performing Organization Address City/State/ZIP Code Phon e Number [facility] [place], [place] documented in this encounter Visit Diagnoses Not on filedocumented in this encounter
--- OUTSIDE RECORDS SUMMARY | 2022-02-15 02:29 | XMS_ITS | Encounter Summary ---
:1960 [place] [address] Care Team Providers Name Role Phone Unavailable Primary Care Provider Unavailable Encounter Details Date Type Department Care Team Description 12/10/2015 Hospital Encounter Radiology Library at Yeny Arita MD [facility] [place] [address] [place] [address] [phone] (Wo rk) Social History Tobacco Use Types Packs/Day Years Used Date Never Assessed Sex Assigned at Date Recorded Not on file documented as of this encounter Plan of Treatment Upcoming Encounters Date Type Specialty Care Team Description 04/03/2022 TH Visit (TeleHealth) Neurology Pippa Jc MD [place], [place] [address] (Wo rk) Scheduled Procedures Name Priority Associated Diagnoses Date/Time COLONOSCOPY, DIAGNOSTIC Encounter for colorectal cancer screening documented as of this encounter Procedures Procedure Name Priority Date/Time Associated Comments Diagnosis FILM LIBRARY STORAGE Routine 12/10/2015 12:00 AM Results for this ONLY ULTRASOUND EST procedure ar sally in STUDY the results section. documented in this encounter Results Film Library- Storage Only Ultrasound Study (12/10/2015 12:00 AM EST) Specimen (Source) Anatomical Location Collection Method / Collectio n Time Received Time / Laterality Volume Narrative RAD - 01/31/2018 1:31 PM EST This result has an attachment that is no t available. This exam is for storage only and is aut o-finalizing. Yeny Manuel MD IMG FILM LIBRARY ORDERABLES Performing Organization Address City/State/ZIP Code Phon e Number [facility] [place] documented in this encounter Visit Diagnoses Not on filedocumented in this encounter
--- OUTSIDE RECORDS SUMMARY | 2022-02-15 02:29 | XMS_ITS | Encounter Summary ---
:1960 [place] [address] Care Team Providers Name Role Phone Unavailable Primary Care Provider Unavailable Encounter Details Date Type Department Care Team Description 01/20/2016 Hospital Encounter Radiology Library at [facility], [place] [address] Social History Tobacco Use Types Packs/Day Years Used Date Never Assessed Sex Assigned at Date Recorded Not on file documented as of this encounter Plan of Treatment Upcoming Encounters Date Type Specialty Care Team Description 04/03/2022 TH Visit (TeleHealth) Neurology Pippa Jc MD [facility] [address] [place] [address] (Wo rk) Scheduled Procedures Name Priority Associated Diagnoses Date/Time COLONOSCOPY, DIAGNOSTIC Encounter for colorectal cancer screening documented as of this encounter Procedures Procedure Name Priority Date/Time Associated Diagnosis Comme nts FILM LIBRARY Routine 01/20/2016 12:00 AM Pain Results for this STORAGE ONLY DX EST procedure ar e in UPPER EXTREMITY the results section. documented in this encounter Results Film Library- Storage only DX Upper Extremity (01/20/2016 12:00 AM EST) Specimen (Source) Anatomical Location Collection Method / Collectio n Time Received Time / Laterality Volume Narrative SHANE WALKER - 01/27/2016 11:12 AM EST See PACS for result report. Dr Aileen Valdivia IMG FILM LIBRARY ORDERABLES Performing Organization Address City/State/ZIP Code Phon e Number [facility] [place] documented in this encounter Visit Diagnoses Diagnosis Pain Generalized pain documented in this encounter
--- OUTSIDE RECORDS SUMMARY | 2022-02-15 02:29 | XMS_ITS | Encounter Summary ---
:1960 Author Organization [facility] [place] [address] Care Team Providers Name Role Phone Connie Gayle ND Primary Care Provider Reason for Visit Reason Comments Right Arm Fracture ulna fx DOI 01/30/2016 Consultation (Routine) - Closed Specialty Diagnoses / Procedures Referred By Contact Refer red To Contact Orthopaedics Diagnoses Right Broken Ulna/ Right Arm / DOI: January 12 2016, Ortho in [place]. Self [facility] Procedures mail [place], [place] [phone] Phone: Fax: Referral ID Status Reason Start Date Expiration Date Visits Requ ested Visits Authorized [id number] Closed 01/26/2016 01/25/2017 1 1 Encounter Details Date Type Department Care Team Description 02/03/2016 Office Visit [place] [facility] [place] Displaced fracture of [facility] Eusebio Velasquez MD distal end of right [facility], [place] [address] encounter [phone] ORTHOPAEDIC SURGERY [place] [address] Social History Tobacco Use Types Packs/Day Years Used Date Never Smoker Smokeless Tobacco: Never Used Alcohol Use Standard Drinks/Week Comments No 0 (1 standard drink = 0.6 oz pure alcoho l) Sex Assigned at Date Recorded Not on file documented as of this encounter Last Filed Vital Signs Vital Sign Reading Time Taken Comments Blood Pressure 103/59 02/03/2016 10:28 AM EST Pulse 53 02/03/2016 10:28 AM EST Temperature - - Respiratory Rate - - Oxygen Saturation - - Inhaled Oxygen Concentration - - Weight 56.7 kg (125 lb) 02/03/2016 10:28 AM EST pt repo rted Height 167.6 cm (5' 6) 02/03/2016 10:28 AM EST pt repo rted Body Mass Index 20.18 02/03/2016 10:28 AM EST documented in this encounter Progress Notes Eusebio Dale MD - 02/03/2016 2:25 PM EST The ER was busy so she came back to the cast room to complete the cast We were able to get her long arm cast applied and repeat X rays in this cast show change in position- actually looks better than in the splints and there is early callus now seen with keenan splint material off She has her follow up appt in two weeks with x rays out of plaster then Berhane Villarreal - 02/03/2016 12:21 PM EST Kalyn Burgos presents to the clinic for a splint off per Dr. Dale. The splint was intact upon arrival. The splint was removed. The patient tolerated this procedure well. Dr. Dale assessed the patient skin. The skin was intact. Kalyn Burgos presents to the cast room for a cast on per Dr. Dale. The patient's skin is intact. The patient is going into a well padded long arm cast on the right side. While applying the padding of the short arm portion of the long arm cast the patient states she did not feel well and wantedto lie down. The patient lied down and a cold cloth was applied to the patient forehead. Moca juice was given to the patient as well as a puke bucket. The patient then sat back up and felt a little better. I applied the first layer of fiberglass to the short arm portion of the long arm cast. The patient then did not feel well again. There was also a screaming child near by that was making the patient feel worse. I suggested we move to a different room. The patient agreed and naomy from the bed and out into the hallway before I could escort her with a wheel chair. The patient then leaned again a close by wall and I asked the patient to sit on the floor while I stood behind the patient with my armslocked under her armpits. The patient then lost consciousness and fell onto me. Another employee, JONN Leiva, and Dr. Dale helped me lower the patient to the floor safely. The patient wastalking and breathing once lowered safely to the floor. JONN Leiva, got the patients blood pressure and temperature. Diana Smith RN, came to the scene to help assess the patient. I called vega mcintosh and the vega mcintosh team arrived shortly after. The patient was assessed by the vega mcintosh te am and brought to the Emergency Department. The cast was not finished yet but would be finished at alater time today. The patient had part of the short arm portion of the cast on and was placed in a sling. Kalyn Burgos presents to the cast room after being dismissed from the emergency department. The patient's skin is intact. The patients long arm cast on the right side was completed at this time per Dr. Dale. The patient tolerated the procedure well. The patient was given instructions for cast care and was given instruction to call the nurse with any questions or concerns. The patient was sentto x-ray. Eusebio Gavin MD - 02/03/2016 10:44 AM EST This 55 yo white female fell on the ice and hit her R arm against her car door and had immediate pain and had X Rays at [facility] which showed a mildly comminuted [...] much in the way of early callus ROS - negative for cardiac resp ENT GI Gu Endo Skin Smoking and ETOH - negative PE - WD thin white female in NAD - alert and oriented x 3 Skin - a fair amount of dorsal ecchymosis R wrist - she is still painful at the fx site but not significantly painful as she rotates some in the office today NV check - she has had some degree of pre exisiting CTS and may have had more symptoms with the swelling but she has sensation over all fingers and can oppose the thumb A: Distal 1/3 ulnar fx - mildly displaced in acceptable alignment Plan We will cast her in a long arm cast for an additional two weeks She fainted during the casting without apparent injury - we were able to gently lay her flat on the floor - I was present for that As per protocol she went to the ER for evaluation and we felt it best that she be discharged from there when cleared With that in mind the Ortho Resident will apply the rest of the cast and get X Rays in the new cast which i will try to review as well Arrangements have been made to see her back 02/17/2016 with X Rays out of the cast and perhaps a short arm cast or functional brace applied I have been able to see the patient in the Er and give her the follow up and give her this plan - she has no memory of fainting documented in this encounter Miscellaneous Notes Addendum Note - Eusebio Dale MD - 02/03/2016 2:06 PM EST Addended by: EUSEBIO DALE on: 02/03/2016 02:06 PM Modules accepted: Orders documented in this encounter Plan of Treatment Upcoming Encounters Date Type Specialty Care Team Description 04/03/2022 TH Visit (TeleHealth) Neurology Pippa Jc MD [facility] [place] [address] (Wo rk) Scheduled Procedures Name Priority Associated Diagnoses Date/Time COLONOSCOPY, DIAGNOSTIC Encounter for colorectal cancer screening documented as of this encounter Results XR wrist complete minimum 3 views Right (GENERIC) (02/16/2016 10:08 AM EDT) Anatomical Region Laterality Modality Right Digital Radiography Specimen (Source) Anatomical Location Collection Method / Collectio n Time Received Time / Laterality Volume Impressions 02/16/2016 10:26 AM EDT IMPRESSION: Healing distal ulnar diaphyseal fracture . Narrative 02/16/2016 10:26 AM EDT EXAMINATION: XR WRIST COMPLETE MINIMUM 3 VIEWS RIGHT CLINICAL HISTORY: Follow up distal 1/3 u lnar fx TECHNIQUE: 3 views right wrist COMPARISON: February 03, 2016 FINDINGS: Healing comminuted distal ulnar diaphyse al fracture. Periosteal healing noted. Anatomic alignment. Procedure Note Judd Mccullough MD - 02/16/2016Form atting of this note might be different from the original. EXAMINATION: XR WRIST COMPLETE MINIMUM 3 VIEWS RIGHT CLINICAL HISTORY: Follow up distal 1/3 u lnar fx TECHNIQUE: 3 views right wrist COMPARISON: February 03, 2016 FINDINGS: Healing comminuted distal ulnar diaphyse al fracture. Periosteal healing noted. Anatomic alignment. IMPRESSION IMPRESSION: Healing distal ulnar diaphyseal fracture . Eusebio Dale MD IMG DX ORDERABLES XR wrist complete minimum 3 views Right [...] IMPRESSION IMPRESSION: Slightly improved fracture alignment. Eusebio Dale MD IMG DX ORDERABLES documented in this encounter Visit Diagnoses Diagnosis Displaced fracture of distal end of righ t ulna, initial encounter Displaced fracture of distal end of righ t ulna, initial encounter Displaced fracture of distal end of righ t ulna, initial encounter documented in this encounter Care Teams Line Clearance Foreman Relationship Specialty Start Date End Date Connie Gayle ND PCP - General Naturopathic Medicine 01/25/16 09/27/17 documented as of this encounter
--- OUTSIDE RECORDS SUMMARY | 2022-02-15 02:29 | XMS_ITS | Encounter Summary ---
:1960 [place] [address] Care Team Providers Name Role Phone Unavailable Primary Care Provider Unavailable Encounter Details Date Type Department Care Team Description 01/19/2016 Hospital Encounter Radiology Library at Radiology, [place] [address] Social History Tobacco Use Types Packs/Day Years Used Date Never Assessed Sex Assigned at Date Recorded Not on file documented as of this encounter Plan of Treatment Upcoming Encounters Date Type Specialty Care Team Description 04/03/2022 TH Visit (TeleHealth) Neurology Pippa Jc MD [facility] [address] [place] [address] (Wo rk) Scheduled Procedures Name Priority Associated Diagnoses Date/Time COLONOSCOPY, DIAGNOSTIC Encounter for colorectal cancer screening documented as of this encounter Procedures Procedure Name Priority Date/Time Associated Diagnosis Comme nts FILM LIBRARY Routine 01/19/2016 12:00 AM Pain Results for this STORAGE ONLY DX EST procedure ar e in SPINE the results section. documented in this encounter Results Film Library- Storage only DX Spine (01/19/2016 12:00 AM EST) Specimen (Source) Anatomical Location Collection Method / Collectio n Time Received Time / Laterality Volume Narrative SHANE WALKER - 01/27/2016 11:14 AM EST See PACS for result report. Dr Aileen Valdivia IMG FILM LIBRARY ORDERABLES Performing Organization Address City/State/ZIP Code Phon e Number [facility] [place] documented in this encounter Visit Diagnoses Diagnosis Pain Generalized pain documented in this encounter
--- OUTSIDE RECORDS SUMMARY | 2022-02-15 02:29 | XMS_ITS | Encounter Summary ---
:1960 [place] [address] Care Team Providers Name Role Phone Unavailable Primary Care Provider Unavailable Encounter Details Date Type Department Care Team Description 01/19/2016 Hospital Encounter Radiology Library at Radiology, [place] [address] Social History Tobacco Use Types Packs/Day Years Used Date Never Assessed Sex Assigned at Date Recorded Not on file documented as of this encounter Plan of Treatment Upcoming Encounters Date Type Specialty Care Team Description 04/03/2022 TH Visit (TeleHealth) Neurology Pippa Jc MD [facility] [address] [place] [address] (Wo rk) Scheduled Procedures Name Priority Associated Diagnoses Date/Time COLONOSCOPY, DIAGNOSTIC Encounter for colorectal cancer screening documented as of this encounter Procedures Procedure Name Priority Date/Time Associated Diagnosis Comme nts FILM LIBRARY Routine 01/19/2016 12:15 AM Pain Results for this STORAGE ONLY DX EST procedure ar e in WRIST the results section. documented in this encounter Results Film Library- Storage only DX Wrist (01/19/2016 12:15 AM EST) Specimen (Source) Anatomical Location Collection Method / Collectio n Time Received Time / Laterality Volume Narrative SHANE WALKER - 01/27/2016 11:19 AM EST See PACS for result report. Dr Gallagher Radiology IMG FILM LIBRARY ORDERABLES Performing Organization Address City/State/ZIP Code Phon e Number [facility] [place] documented in this encounter Visit Diagnoses Diagnosis Pain Generalized pain documented in this encounter
--- OUTSIDE RECORDS SUMMARY | 2022-02-15 02:29 | XMS_ITS | Encounter Summary ---
:1960 [place] [address] Care Team Providers Name Role Phone Unavailable Primary Care Provider Unavailable Encounter Details Date Type Department Care Team Description 10/11/2015 Hospital Encounter Radiology Library at Yeny Arita MD [facility] [place] [address] [place] [address] [phone] (Wo rk) Social History Tobacco Use Types Packs/Day Years Used Date Never Assessed Sex Assigned at Date Recorded Not on file documented as of this encounter Plan of Treatment Upcoming Encounters Date Type Specialty Care Team Description 04/03/2022 TH Visit (TeleHealth) Neurology Pippa Jc MD [place], [place] [address] (Wo rk) Scheduled Procedures Name Priority Associated Diagnoses Date/Time COLONOSCOPY, DIAGNOSTIC Encounter for colorectal cancer screening documented as of this encounter Procedures Procedure Name Priority Date/Time Associated Diagnosis Comme nts FILM LIBRARY Routine 10/11/2015 12:00 AM Results for this STORAGE ONLY CT EST procedure ar e in ABDOMEN the results section. documented in this encounter Results Film Library- Storage Only CT Abdomen (10/11/2015 12:00 AM EST) Specimen (Source) Anatomical Location Collection Method / Collectio n Time Received Time / Laterality Volume Narrative RAD - 01/31/2018 1:35 PM EST This result has an attachment that is no t available. This exam is for storage only and is aut o-finalizing. Yeny Manuel MD IMG FILM LIBRARY ORDERABLES Performing Organization Address City/State/ZIP Code Phon e Number [facility] [place], [place] documented in this encounter Visit Diagnoses Not on filedocumented in this encounter
[2022-02-15 09:31] LABS: HCT 37.3 % (36.0-46.0); HGB 12.2 g/dL (11.2-15.7); MCH 30.6 pg (27.0-33.0); MCHC 32.7 % (32.0-36.0); MCV 93.5 fL (80-95); MPV 8.9 fL (8.0-11.0); Platelet Count 219 10^3/uL (130-400); RBC 3.99 10^6/uL (3.93-5.22); RDW 14.4 % (11.7-14.6); RDW-SD 49.8 fL; WBC 4.07 10^3/uL (4.4-10.8)
[2022-02-15 10:33] LABS: ALT 31 U/L (14-59); AST 15 U/L (15-37); Albumin 3.8 g/dL (3.4-5.0); Alkaline Phosphatase 69 U/L (46-116); Anion Gap 7.8 mmol/L (3-11); BUN 13 mg/dL (7-18); Bilirubin, Total 0.3 mg/dL (0.2-1.0); CO2 27.2 mmol/L (21.0-32.0); CREATININE 0.8 mg/dL (0.55-1.02); Calcium 8.8 mg/dL (8.5-10.1); Calculated LDL 115 mg/dL (<100); Chloride 105 mmol/L (98-107); Cholesterol 212 mg/dL (<200); Glucose 94 mg/dL (74-106); HDL Cholesterol 87 mg/dL (40-60); Potassium 4.6 mmol/L (3.5-5.1); Sodium 140 mmol/L (136-145); TSH (W/Ref FT4) 1.81 uIU/mL (0.36-3.74); Total Protein 6.4 g/dL (6.4-8.2); Triglyceride 50 mg/dL (<150)
== END 2022-02-15 02:23 | disposition home or self-care (01) ==
LOC: LBO 02:22
PROVIDERS: PCP Nurse Practitioner; Visit Provider Nurse Practitioner
DX: E06.3 Autoimmune thyroiditis (principal); F41.9 Anxiety disorder, unspecified; Z13.220 Encounter for screening for lipoid disorders; I10 Essential (primary) hypertension
CPT/HCPCS: 36415; 80053; 80061; 85027; 84443

== ENCOUNTER 2022-02-23 11:48 | Outpatient (REF) | payer MEDICAID, SELFPAY ==
--- NOTE | 2022-02-23 11:30 | PAPFT_PTH ---
PATIENT: Kalyn Bosch LOC: [facility] U#:[id number] AGE/SX: 61/F ROOM: RE02/23/[address]: April Cummins APRN : 1960 BED: DIS: 02/23/2022 SPEC #: [id number] RECD: 02/23/22 17:20 STATUS: ESVIN RERoman #: [id number] INGRID: 02/23/22 11:[address]: April Cummins DEPT: COUNTS INCLUDE 234 BEDS AT THE [facility] Cytology RECD BY: Lori Bettencourt Tissues: 1 - CX/ENDOCX FOR PAP SMEARS Procedures: PAP THIN PREP/UVM Screening HPV DNA PROBE Comments: [id number]
== END 2022-02-23 11:49 | disposition home or self-care (01) ==
LOC: LBN 11:48
PROVIDERS: PCP Nurse Practitioner; Visit Provider Nurse Practitioner
DX: Z12.4 Encounter for screening for malignant neoplasm of cervix (principal); Z11.51 Encounter for screening for human papillomavirus (HPV)
CPT/HCPCS: 88142; 87624

== ENCOUNTER 2022-04-07 00:38 | Outpatient (CLI) | payer MEDICAID, SELFPAY ==
--- NOTE | 2022-04-07 08:00 | DI.MAMMO_ITS ---
Exam(s) MAMMO SCREENING EXAM: MAMMO SCREENING CLINICAL HISTORY: screening,Z12.39. TECHNIQUE: Bilateral full field digital CC and MLO mammographic images were obtained with 3D tomosyn thesis and utilizing computer aided detection (CAD). COMPARISON: Prior mammograms were reviewed, the most recent being December 2017. FINDINGS: Fibroglandular tissue pattern is again noted be quite dense, this somewhat decreasing the sensitivity of the mammogram for finding hidden underlying lesions. There are no CAD designations. There are no new spiculated masses nor malignant appearing microcalcification groups. There is no significant architectural distortion nor skin thickening-retraction. IMPRESSION: Dense bilateral fibroglandular tissue. No obvious radiographic evidence of malignancy nor significan t change compared to prior mammograms. BI-RADS Category 1 - Negative Breast Density - Category D - Extremely dense Breast density Category C or D implies that the patient has dense breast tissue. Dense breast tissue can make it harder to find cancer on a mammogram. Dense breast tissue is also associated with an incr eased risk of breast cancer. This information about the result of the mammogram report was provided to the patient to raise their awareness. Use this report when you speak with the patient about their risks for breast cancer, which includes their family history. At that time, you may recommend additional screening tests (Ultrasoun d or MRI) as these tests may add significant information. A negative radiographic report should not delay biopsy if a dominant or clinically suspicious mass is present. Up to ten percent of cancers are not identified on mammography. A negative report may reinforce clinical impression. Adenosis and dense breasts may obscure an underlying neoplasm. False positive reports average 6 to 10%. Patient will receive a letter notifying them of these results.
--- NOTE | 2022-04-07 08:00 | DI.DEXA_ITS ---
Exam(s) XR DEXA BONE DENSITY W/WO RAYMUNDO EXAM: XR DEXA BONE DENSITY W/WO RAYMUNDO CLINICAL HISTORY: SCREENING FOR OSTEOPOROSIS IN POSTMENOPAUSAL WOMAN,Z78.0 TECHNIQUE: Routine DEXA evaluation of the lumbar spine, hip, or forearm. COMPARISON: No exams were available for comparison FINDINGS: Performed on a Hologic unit. Lateral image: There is mild indentation of superior endplate of L1. Lumbar Spine total T-score: -1.8 Hip total T-score:-2.3 Independent reading at the level of the femoral neck yields at T-score of -2.9. Forearm total T-score: -2.3 IMPRESSION: Bone mineral density measures in the osteoporosis range. Fracture risk is high. Note: Any spine fracture indicates 5x risk for subsequent spine fracture and 2x risk for subsequent h ip fracture. World Health Organization criteria for BMD interpretation classify patients: Normal...... T- Score at or above -1.0 Osteopenic... T- Score between -1.0 and -2.5 Osteoporosis... T-Score at or below -2.5
== END 2022-04-07 00:58 ==
PROVIDERS: PCP Nurse Practitioner; Visit Provider Nurse Practitioner
DX: Z12.31 Encounter for screening mammogram for malignant neoplasm of breast (principal); M81.0 Age-related osteoporosis without current pathological fracture; Z78.0 Asymptomatic menopausal state
CPT/HCPCS: 77063; 77067; 77080

== ENCOUNTER → 2022-05-03 03:08 | Outpatient (CLI) | payer MEDICAID, SELFPAY ==
--- NOTE | 2022-05-03 07:00 | DI.US_ITS ---
Exam(s) US PELVIS TRANSVAGINAL EXAM: US PELVIS TRANSVAGINAL CLINICAL HISTORY: intermittent pelvic pain, r10.2 TECHNIQUE: Ultrasound of the pelvis was performed both transabdominal and transvaginal. COMPARISON: CT CT CHEST PE ABD PELVIS W from 06/28/2021 FINDINGS: UTERUS: Nongravid Measures 8 cm length x 4.3 cm AP x 5.0 cm wide. There are multiple uterine fibroids, as evident on the prior CT scan of 2020. The largest fibroid me asures 1.5 x 1.7 x 1 cm. Endometrial thickness measures 9 mm total.. There is some fluid in the endometrial canal and this appears to outline a finding which has appearan ce of a 9x 7 millimeter endometrial polyp. CERVIX: There is some fluid noted in the endocervical canal. Also appears to be a polyp in the cervi vanessa canal. RIGHT OVARY: Measures 1.9 x 1.4 x 0.8 cm No significant cysts nor masses evident in the right ovary. LEFT OVARY: Measures 1.9 x 1.0 x 2.1 cm No significant cysts nor masses evident in the left ovary. CUL-DE-SAC: No free fluid evident. IMPRESSION: 1. Multiple uterine fibroids. Also what appears to be a 9 x 7 millimeter endometrial polyp. Small a mount of fluid in the endometrial cavity 2. Also some fluid in the endometrial canal but may be a polyp in the endocervical canal, this measur ing approximately 6 mm 3. No obvious ovarian masses. DATA REPOSITORY:
== END ==
PROVIDERS: PCP Nurse Practitioner; Visit Provider Nurse Practitioner
DX: D25.9 Leiomyoma of uterus, unspecified (principal); N84.0 Polyp of corpus uteri
CPT/HCPCS: 76830; 76856

== ENCOUNTER → 2022-05-10 12:38 | Outpatient (CLI) | payer MEDICAID, SELFPAY ==
--- NOTE | 2022-05-10 08:38 | DI.CT_ITS ---
Exam(s) CT RENAL COLIC WO EXAM: CT RENAL COLIC WO CLINICAL HISTORY: L sided flank pain/dark urine,r10.9. TECHNIQUE: Imaging Protocol: Axial computed tomography images with coronal and sagittal reformatted images were created and reviewed CONTRAST MATERIAL: Intravenous: none Oral: None COMPARISON: CT CT CHEST PE ABD PELVIS W from 06/28/2021 FINDINGS: VISUALIZED LUNG BASES: No nodules nor pleural effusions evident. Small part of the inferior aspect o f the heart is included in the field of view and there appears to be a pericardial effusion. ABDOMEN: There is no ascites. LIVER: Hepatic cysts are again noted. GALLBLADDER/BILIARY: No obvious gallbladder pathology. CBD is not dilated. PANCREAS: No evidence of pancreatic mass nor dilatation of the pancreatic duct. SPLEEN: Spleen is not enlarged. No obvious intrasplenic lesions. ADRENALS: There are no significant adrenal masses. KIDNEYS:Small cyst in the medial cortex of the left kidney is unchanged. No solid renal masses. No c alculi nor hydronephrosis. . ABDOMINAL AORTA: Abdominal aorta is not enlarged. LYMPH NODES: There is no retroperitoneal nor paraaortic adenopathy. ABDOMINAL WALL: No evidence of significant anterior abdominal wall nor inguinal hernia. GI: There is no evidence of bowel obstruction, free air, nor abscess. PELVIS: LYMPH NODES: There is no intrapelvic nor inguinal adenopathy. GI: There is abundant fecal material throughout the colon. The appendix is difficult to identify is separate structure. There are no obvious secondary signs of acute appendicitis. No free fluid.No ev idence of sigmoid diverticulitis. URINARY BLADDER: No calculi nor obvious masses evident REPRODUCTIVE: There is calcified fibroid in the uterine fundus region. No obvious abnormal adnexal m asses. There is a tiny amount of free fluid in the cul-de-sac. OSSEOUS: No significant osseous lesions. Advanced disc space narrowing noted at L4-5 disc space. No fractures. IMPRESSION: 1. Uppermost images of this study reveal what appears to be a pericardial effusion. Difficult to brandi ntify as only the lower most aspect of the heart is included in the field of view of this study. How ever, I note that a pericardial effusion was also evident on the uppermost images of an abdominal CT scan performed 06/28/2021. 2. Multiple benign appearing liver cysts are again noted. 3. Single small benign cyst in the medial cortex of the left kidney. No other focal renal findings. No radiopaque calculi. No hydronephrosis nor hydroureter. No by nor other focal findings in the pa rtially collapsed urinary bladder. Abundant fecal material is noted throughout the colon, similar to the previous study. Fibroid appearing uterus including a calcified fibroid at the level of the fundus. Largest fibroid a ppears to be located anteriorly, similar to the previous study. No obvious abnormal adnexal masses. RADIATION DOSE DELIVERED: 616.19mGy.cm Total DLP DATA REPOSITORY: All CT scans at this facility are submitted to the National Radiology Data Registry (NRDR) Dose Index Registry (DIR) with the [employer] (ACR). RADIATION OPTIMIZATION: All CT scans at this facility use at least one of these dose optimization te chniques: automated exposure control; mA and/or kV adjustment per patient size (includes targeted exa ms where dose is matched to clinical indication); or iterative reconstruction.
== END ==
PROVIDERS: PCP Nurse Practitioner; Visit Provider Family Medicine
DX: R10.32 Left lower quadrant pain (principal); R82.998 Other abnormal findings in urine; K76.89 Other specified diseases of liver; N28.1 Cyst of kidney, acquired; D25.9 Leiomyoma of uterus, unspecified; I31.3 Pericardial effusion (noninflammatory)
CPT/HCPCS: 74176

== ENCOUNTER 2022-06-10 17:24 | Emergency (ER) | payer MEDICAID, SELFPAY ==
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
[2022-06-10 17:27] VITALS: BP 115/69; PULSE 72; RESP 16; TEMP 37.1; O2SAT 98
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
--- NOTE | 2022-06-10 18:00 | DI.CT_ITS ---
Exam(s) CT HEAD CERVICAL SPINE WO EXAM: CT HEAD CERVICAL SPINE WO CLINICAL HISTORY: s/p fall, r/o acute intracranial inj, fx. TECHNIQUE: Imaging Protocol: Axial computed tomography images with coronal and sagittal reformatted images were created and reviewed COMPARISON: No exams were available for comparison FINDINGS: BRAIN: There are no skull fractures nor fluid in the visualized paranasal sinuses. There is no evidence of intracranial hemorrhage, mass effect, or shift of midline structures. There are no extra-axial fluid collections. The ventricles are not enlarged or shifted and there is no blo od within the ventricular system nor within the basal cisterns. CERVICAL SPINE: There is anterior fixation plate from C4 through C6 which appears intact. There is fusion at these l evels anteriorly. No fusion across the facet joints at these levels nor elsewhere in the cervical sp ine. Disc space narrowing 1 level above and 1 level below the fusions. No prominent Luschka joint o steophytes. There is no evidence of fracture nor listhesis. No significant prevertebral soft tissue swelling. There is no significant facet joint malalignment. No significant osseous lesions evident. IMPRESSION: No acute intracranial findings on this noninfused CT scan of the brain. No evidence of cervical spine fracture, malalignment, nor acute compromise of the cervical spinal can al. Multilevel anterior fusion plate C4 through C6 which appears intact. No fractures. RADIATION DOSE DELIVERED: 1,364.96mGy.cm Total DLP DATA REPOSITORY: All CT scans at this facility are submitted to the National Radiology Data Registry (NRDR) Dose Index Registry (DIR) with the [employer] (ACR). RADIATION OPTIMIZATION: All CT scans at this facility use at least one of these dose optimization te chniques: automated exposure control; mA and/or kV adjustment per patient size (includes targeted exa ms where dose is matched to clinical indication); or iterative reconstruction.
--- NOTE | 2022-06-10 18:00 | DI.CT_ITS ---
Exam(s) CT CHEST/ABD/PEL W EXAM: CT CHEST/ABD/PEL W CLINICAL HISTORY: midline chest pain,upper abd pain. TECHNIQUE: Imaging Protocol: Axial computed tomography images with coronal and sagittal reformatted images were created and reviewed CONTRAST MATERIAL: Intravenous: Omnipaque 350 Contrast volume:100 ml Oral: None COMPARISON: CT CT RENAL COLIC WO from 05/10/2022 FINDINGS: CHEST: LUNGS: No infiltrates nor pleural effusions. Mild multilevel benign-appearing pleural thickening pos teriorly. No pneumothorax. No significant focal findings in the trachea mainstem bronchi.. MEDIASTINUM: There is no hilar nor mediastinal adenopathy. Visualized thyroid unremarkable. CARDIAC: Heart size is normal.There is a small pericardial effusion. Anterior thickness 9 millimeter s. No aortic dissection. OSSEOUS: There is a nondisplaced fracture of the anterolateral aspect of the right 5th rib and right 6th rib. There are no other rib fractures identified.. No sternal fractures. No thoracic and lumba r vertebral fractures.. ABDOMEN: There is no ascites. LIVER: Multiple liver cysts. Largest of these is in the right lobe adjacent to the caudate and measu res 3 by 2.5 cm. GALLBLADDER/BILIARY: No obvious gallbladder pathology. CBD is not dilated. PANCREAS: Pancreas is difficult to differentiate from adjacent unopacified bowel loops. However, the re is no obvious hypodense pancreatic mass nor obvious dilatation of the pancreatic duct. SPLEEN: Spleen is not enlarged. There are no intrasplenic lesions. Splenic and portal veins are lópez nt. ADRENALS: There are no significant adrenal masses. KIDNEYS: No calculi nor hydronephrosis. No solid renal masses. No cysts evident. ABDOMINAL AORTA: Abdominal aorta is not enlarged. LYMPH NODES: There is no retroperitoneal nor paraaortic adenopathy. ABDOMINAL WALL: No evidence of significant anterior abdominal wall nor inguinal hernia. GI: There is no evidence of bowel obstruction.No evidence of mesenteric nor bowel wall hematoma. PELVIS: LYMPH NODES: There is no intrapelvic nor inguinal adenopathy. GI: No evidence of appendicitis.No evidence of sigmoid diverticulitis. URINARY BLADDER: No calculi nor masses evident REPRODUCTIVE: There are multiple uterine fibroids. The anterior fibroids impress upon the urinary bl adder wall. There is a sliver of fluid in the cul-de-sac. No ovarian masses evident. OSSEOUS: No significant osseous lesions. Advanced disc space narrowing at L4-5 level. No listhesis. IMPRESSION: 1. There are nondisplaced fractures of the right 5th and 6th ribs. No pneumothorax or lung contusion . No pleural effusions. There is, however, a small pericardial effusion noted, as described above. No evidence of aortic dissection. 2. Multiple benign liver cysts ranging up to 3 cm size. 3. Multiple uterine fibroids. 4. Small sliver of free fluid in the dependent aspect of the pelvis noted. RADIATION DOSE DELIVERED: Total DLP DATA REPOSITORY: All CT scans at this facility are submitted to the National Radiology Data Registry (NRDR) Dose Index Registry (DIR) with the [employer] (ACR). RADIATION OPTIMIZATION: All CT scans at this facility use at least one of these dose optimization te chniques: automated exposure control; mA and/or kV adjustment per patient size (includes targeted exa ms where dose is matched to clinical indication); or iterative reconstruction.
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
--- NOTE | 2022-06-10 18:00 | RT.EKG_ITS ---
APPROVED REPORT Exam: Resting ECG Reason for Exam: fall down stairs Patient Location: E HR:63 bpm ECG Measurements Heart Rate 63 AXIS CA 166 P 49 QRSd 81 QRS 32 QT 411 T 44 QTc 420 Conclusion Sinus rhythm...normal P axis, V-rate 60- 99 Low voltage, extremity and precordial leads...extremity<0.5mV, precordial<1.0mV. Sinus. Normal axis. No STEMI. I have reviewed and interpreted ECG and agree with software generated interpretation.
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
[2022-06-10] MEDS: Normal Saline 1,000 ML 1000 ML IV (18:25)
[2022-06-10] MEDS: HYDROmorphone 2 MG/ML VIAL 0.5 MG IVP (18:28)
[2022-06-10 18:34] LABS: Abs Immature Grans 0.02 10^3/uL (0.0-0.06); Absolute Basophil Count 0.04 10^3/uL (0.0-0.2); Absolute Eosinophil Count 0.05 10^3/uL (0.0-0.7); Absolute Lymphocyte Count 1.64 10^3/uL (1.2-3.4); Absolute Neutrophil Count 5.61 10^3/uL (1.2-6.7); Basophils % 0.5; Eosinophils % 0.6; HCT 35.6 % (36.0-46.0); HGB 11.9 g/dL (11.2-15.7); Immature Grans % 0.3; Lymphocytes % 20.9; MCH 30.8 pg (27.0-33.0); MCHC 33.4 % (32.0-36.0); MCV 92 fL (80-95); Monocytes % 6.4; Neutrophils % 71.3; Platelet Count 206 10^3/uL (130-400); RBC 3.86 10^6/uL (3.93-5.22); RDW 13.7 % (11.7-14.6); RDW-SD 46.5 fL; WBC 7.86 10^3/uL (4.4-10.8)
[2022-06-10 18:52] LABS: ALT 43 U/L (14-59); AST 23 U/L (15-37); Albumin 3.9 g/dL (3.4-5.0); Alkaline Phosphatase 57 U/L (46-116); Anion Gap 7.2 mmol/L (3-11); BUN 11 mg/dL (7-18); Bilirubin, Total 0.4 mg/dL (0.2-1.0); CO2 27.8 mmol/L (21.0-32.0); CREATININE 0.8 mg/dL (0.55-1.02); Calcium 8.9 mg/dL (8.5-10.1); Chloride 104 mmol/L (98-107); Glucose 93 mg/dL (74-106); Magnesium 2.2 mg/dL (1.8-2.4); Potassium 3.8 mmol/L (3.5-5.1); Sodium 139 mmol/L (136-145); Total Protein 6.5 g/dL (6.4-8.2); Troponin I < 50 ng/L (<or=60)
[2022-06-10] MEDS: Omnipaque 350 MG/ML 100 ML BTL IJ (19:05)
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
[2022-06-10] MEDS: HYDROmorphone 2 MG TAB PO (20:51)
[2022-06-10 21:22] VITALS: BP 121/76; PULSE 64; RESP 14; TEMP 37.3; O2SAT 98
[2022-06-10] MEDS: Lidocaine 5% Patch 1 PATCH TP (21:46)
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
== END 2022-06-10 22:41 | disposition home or self-care (01) ==
PROVIDERS: Physician Assistant; Emergency Provider Student in an Organized Health Care Education/Training Program; PCP Nurse Practitioner
DX: S22.41XA Multiple fractures of ribs, right side, initial encounter for closed fracture (principal); R07.89 Other chest pain; M54.50 Low back pain, unspecified; M25.521 Pain in right elbow; M25.542 Pain in joints of left hand; M54.2 Cervicalgia; Y04.2XXA Assault by strike against or bumped into by another person, initial encounter; T74.11XA Adult physical abuse, confirmed, initial encounter; Y07.499 Other family member, perpetrator of maltreatment and neglect
CPT/HCPCS: 74177; 80053; 93005; 96361; 96374; 99285; 70450; 71260; 72125; 73090; 73140; 83735; 84484; 85025; 93010; J3490

== ENCOUNTER 2022-07-18 03:28 | Outpatient (CLI) | payer MEDICAID, SELFPAY ==
[2022-07-18 12:15] LABS: FREE T4 1.01 ng/dL (0.76-1.46); TSH 1.14 uIU/mL (0.36-3.74)
[2022-07-18 21:48] LABS: T3,Free 3.4 pg/mL (2.8-5.3)
== END 2022-07-18 03:29 | disposition home or self-care (01) ==
LOC: LBO 03:28
PROVIDERS: PCP Nurse Practitioner; Visit Provider Naturopath
DX: E06.3 Autoimmune thyroiditis (principal)
CPT/HCPCS: 36415; 84439; 84443; 84481

== ENCOUNTER 2022-10-12 10:40 | Outpatient (REF) | payer MEDICAID, SELFPAY ==
[2022-10-12 15:16] LABS: HCT 35.4 % (36.0-46.0); HGB 11.9 g/dL (11.2-15.7); MCH 30.7 pg (27.0-33.0); MCHC 33.6 % (32.0-36.0); MCV 92 fL (80-95); MPV 9.9 fL (8.0-11.0); Platelet Count 240 10^3/uL (130-400); RBC 3.87 10^6/uL (3.93-5.22); RDW 13.4 % (11.7-14.6); RDW-SD 45.1 fL; WBC 6.26 10^3/uL (4.4-10.8)
[2022-10-12 16:45] LABS: ALT 40 U/L (14-59); AST 20 U/L (15-37); Albumin 4.2 g/dL (3.4-5.0); Alkaline Phosphatase 67 U/L (46-116); Anion Gap 6.6 mmol/L (3-11); BUN 12 mg/dL (7-18); CO2 30.4 mmol/L (21.0-32.0); CREATININE 0.6 mg/dL (0.55-1.02); Calcium 9.2 mg/dL (8.5-10.1); Chloride 101 mmol/L (98-107); Ferritin 161 ng/mL (8-252); Glucose 89 mg/dL (74-106); Potassium 3.9 mmol/L (3.5-5.1); Sodium 138 mmol/L (136-145); TSH (W/Ref FT4) 1.66 uIU/mL (0.36-3.74); Total Protein 6.5 g/dL (6.4-8.2)
[2022-10-12 16:51] LABS: Vitamin B12 > 2000 pg/mL (193-986)
[2022-10-12 17:19] LABS: Total Iron Binding Capacity 304 ug/dL (250-450)
[2022-10-12 22:44] LABS: T3,Free 3.9 pg/mL (2.8-5.3)
== END 2022-10-12 10:41 | disposition home or self-care (01) ==
LOC: LBN 10:40
PROVIDERS: PCP Nurse Practitioner; Visit Provider Nurse Practitioner
DX: E55.9 Vitamin D deficiency, unspecified (principal); R53.83 Other fatigue; R63.4 Abnormal weight loss; I10 Essential (primary) hypertension
CPT/HCPCS: 80053; 82306; 85027; 82607; 82728; 83550; 84443; 84481

== ENCOUNTER 2022-12-25 08:20 | Day surgery (SDC) | payer MEDICAID, SELFPAY ==
--- NOTE | 2022-12-24 21:18 | W.COLOREPORT ---
Date of service: 12/25/22 Time of Service: 11:41 Colonoscopy Report Date of procedure: 12/25/22 Pre-op diagnosis general: H/o Tubular adenoma Procedure: 1. Incomplete Colonoscopy to distal ascending colon (at hepatic flexure) Surgeon: Dipak Tovar Anesthesia Type: MAC Estimated blood loss (mL): 0 Complications: Other (incomplete colonoscopy) Disposition: same day Indications: Surveillance colonoscopy; h/o tubular adenoma (2017) Prep: Other Retraction Time: >12 minute Findings: no polyps; no diverticulosis encountered Procedure Description: After informed consent was obtained, the patient was taken to the procedure room and placed in a left decubitus position. Monitors were applied and a time out was done. The patient's name, date of , procedure, allergies to medications, and metal in their body were reviewed. The patient was then sedated. Once sedated and comfortable, a digital rectal exam was done. External exam was normal Internal exam revealed normal sphincter tone, and no palpable masses or gross blood. The colonoscope was then introduced and advanced to the distal ascending colon at the hepatic flexure under direct visualization with moderate difficulty. Abdominal pressure was applied, and the patient's position was changed to supine. However,the colon was tortuous and capacious, and the colonoscope could not be advanced to the cecum. The prep was good.? ?The scope was then slowly withdrawn over 12minutes in a circumferential manner to the rectum. In doing so, no polyps were encountered.? There? was no diverticulosis noted. The mucosa is pink and healthy.? In the rectum, the scope was retroflexed, and mild internal hemorrhoids were noted.? The scope was straightened and withdrawn from the anus. The patient tolerated the procedure well, and there were no immediate complications.? The patient was taken to the Day Surgery Unit recovery?area in good condition. Follow up: _Surgery office will call to schedule barium enema_
--- NOTE | 2022-12-24 21:47 | W.PM.DSUDISC ---
Date of service: 12/25/22 Time of Service: 11:53 Discharge Plan Disposition Patient Disposition: Home Condition: Stable Discharge Details Reason For Visit: Surveillance colonoscopy, h/o tubular adenoma Attending Provider: Dipak Tovar Primary Care Provider: April Cummins Home Meds and New Rx's Prescriptions: No Action acetylcysteine (bulk) powder See Rx Instructions [facility] .COMPLEX Label Comments: 600 mg capsule one daily Rx Instructions: 600 mg capsule one daily thyroid (pork) [SWEATER DESIGNER Thyroid] 30 mg tablet 45 mg PO DAILY Sutab 1.479-0.188- 0.225 gram tablet See Rx Instructions PO PER PKG DIR Qty: 1 0RF Rx Instructions: PO PER PKG DIR Theanine serene PO fluoxetine 40 mg capsule 40 mg PO QAM Qty: 30 1RF Rx Instructions: * Take with fluoetine 10 mg for total of 50 mg, qAM * fluoxetine 10 mg capsule 10 mg PO DAILY Qty: 30 1RF Rx Instructions: * Take with fluoetine 10 mg for total of 50 mg, qAM * thryoid support 2 cap BID epinephrine [EpiPen 2-Amanuel] 0.3 MG/0.3 ML auto-injector 0.3 mg IM PRN Qty: 1 1RF Rx Instructions: As directed for Bee sting baclofen 10 mg tablet 10 mg PO TID PRN (Reason: muscle pain) Qty: 30 0RF fluticasone propionate 50 mcg/actuation spray,suspension 2 spray AMBROCIO DAILY Qty: 18.2 0RF glycerin (adult) Suppository 1 supp W[place] QD-BID PRN (Reason: constipation) Qty: 12 0RF Discharge Instructions Instructions: Colonoscopy (DC), Barium Enema (PRE) Additional Instructions: Will need to undergo barium enema for completion of colorectal screening. Unfortunately, the colonoscopy was incomplete. The surgery office will call to help coordinate Barium Enema with radiology department. Activity:: Activity as Tolerated
[2022-12-25 08:20] VITALS: BP 114/76; PULSE 52; RESP 16; TEMP 36.5; O2SAT 98
[2022-12-25] MEDS: Lactated Ringers 1,000 ML 80 ML IV (09:13)
--- NOTE | 2022-12-25 09:24 | W.ANESPRE ---
General Info Date of Service Date Performed: 12/25/22 Height: 5 ft 6 in Weight: 58.1 kg Body Mass Index (BMI): 20.7 Surgical Procedure: Operation Date: 12/25/22 09:35 Proposed Procedure Side Surgeon eva Tovar MD Meds Allergies and Home Medications Allergies Allergy/AdvReac Type Severity Reaction Status Date / Time acetaminophen [From Percocet] Allergy Unknown Verified 12/25/22 08:49 bee pollen Allergy Unknown throat Verified 12/25/22 08:49 closes up oxycodone [From Percocet] Allergy Unknown Verified 12/25/22 08:49 wheat Allergy Unknown Skin Rash Verified 12/25/22 08:49 folic acid Allergy Verified 12/25/22 08:49 Tetracyclines Allergy Verified 12/25/22 08:49 milk AdvReac diarrhea Verified 12/25/22 08:49 sugar Allergy Unknown Uncoded 12/25/22 08:49 Home Medication Medication Instructions Recorded Thryoid Support 2 cap BID 03/28/18 epinephrine 0.3 mg/0.3 mL 0.3 mg (0.3 mL) IM PRN ##1 07/18/18 injection, auto-injector (EpiPen 2-Amanuel) acetylcysteine (bulk) See Rx Instructions miscellaneous 01/16/19 .COMPLEX glycerin (adult) 1 supp MS QD-BID PRN constipation 06/28/21 #12 ea thyroid (pork) 30 mg tablet (ASSURANCE AUDITOR 45 mg PO DAILY 10/06/21 Thyroid) Theanine serene PO 02/14/22 baclofen 10 mg tablet 10 mg PO TID PRN muscle pain #30 10/16/22 tabs fluticasone propionate 50 2 spray intranasal DAILY #18.2 mL 10/16/22 mcg/actuation nasal spray,suspension fluoxetine 10 mg capsule 10 mg PO DAILY #30 caps 11/16/22 fluoxetine 40 mg capsule 40 mg PO QAM #30 caps 11/16/22 sodium sul 1.479 gram-potas ch See Rx Instructions PO PER PKG DIR 12/07/22 0.188 gram-magnes sul 0.225 gram #1 tab tablet (Sutab) Current Visit Medications: Current Medications Generic Name Dose Route Start Last Admin Trade Name Freq PRN Reason Stop Dose Admin Ringer's Solution 1,000 mls @ 80 mls/hr 12/25/22 06:00 12/25/22 09:13 IV 12/25/22 23:59 80 mls/hr INFUSION CHUCK Administration IV Miscellaneous Supplies 1 each 12/25/22 06:00 Iv Access IV 12/25/22 23:59 DIRECTED CHUCK Sodium Chloride 0 ml 12/25/22 06:00 Normal Saline Flush 10 Ml Syr IV 12/25/22 23:59 PRN PRN Sodium Chloride 0 ml 12/25/22 06:00 Normal Saline 10 Ml Vial IJ 12/25/22 23:59 DIRECTED PRN Sterile Water 0 ml 12/25/22 06:00 Water,Injection,Sterile 10 Ml Vial IJ 12/25/22 23:59 DIRECTED PRN PFSH Active Problems Active Problems: Problem Status Onset Code Ureteral stone with hydronephrosis N13.2 Left ureteral stone N20.1 CHOIR SINGER (acute pyelonephritis) N10 Adjustment disorder with anxiety 11/23/16 F43.22 Anxiety 11/08/16 F41.9 Depression 11/08/16 F32.9 Fatigue 11/08/16 R53.83 Irritable bowel syndrome with diarrhea 11/08/16 K58.0 Sensation of pressure in bladder area 06/11/17 R39.89 Tubular adenoma 05/24/17 D36.9 B12 deficiency 11/08/16 E53.8 Flank pain, acute R10.9 Urinary tract infection symptoms R39.9 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 Calculus of left kidney 10/22/15 N20.0 Genital herpes A60.00 Uterine fibroid 04/17/19 D25.9 Closed fracture of left tibia and fibula S82.202A, S82.402A Displaced comminuted fracture of shaft of left tibia S82.252A Right elbow pain M25.521 Back pain M54.9 Neck pain M54.2 Jaw pain R68.84 History of fusion of cervical spine Z98.1 Abnormal MRI, cervical spine R93.7 Unspecified injury at unspecified level of cervical spinal cord, subsequent encounter S14.109D Spondylosis without myelopathy or radiculopathy, cervical region M47.812 Food allergy Z91.018 Mild obstructive sleep apnea 06/08/21 G47.33 Periodic limb movement disorder ~06/08/21 G47.61 Chest pain R07.9 Back pain M54.9 Abdominal pain R10.9 Constipation K59.00 Gastritis K29.70 Left knee pain M25.562 Thoracic back pain M54.6 Osteoarthritis M19.90 Instability of left knee joint M25.362 Cervicogenic headache G44.86 Small intestinal bacterial overgrowth K63.89 Routine gynecological examination Z01.419 Wart of hand B07.9 Decreased ROM of intervertebral discs of cervical spine M53.82 Endometrial polyp ~06/2022 N84.0 Anxiety disorder, unspecified F41.9 Medical History Medical History Cervical vertebral fusion C4-C6 Degenerative disc disease, cervical Incontinence in female Kidney stone Pyelonephritis (10/13/15) Medical History Comments:: hx of fractured ribs in May, not impeding breathing Surgical History Surgical History (Updated 12/25/22 @ 08:49 by Kerri Flower RN) Appendectomy (~1976) H/O section H/O myomectomy Kidney Stone Extraction (10/11/15) Status post open reduction and internal fixation (ORIF) of fracture with nonunion (01/08/20) left leg [facility] [place] Tobacco Smoking/Tobacco Use Status: Never Alcohol Alcohol Intake: never Substance Use Substance use: Never Substance use type: does not use Vital Signs and Lab Results Vital Signs Most Recent Vital Signs in EMR: Most Recent Vital Signs Temp Pulse Resp BP Pulse Ox 36.5 C 52 L 16 114/76 98 12/25/22 08:20 12/25/22 08:20 12/25/22 08:20 12/25/22 08:20 12/25/22 08:20 Lab Results Blood Type / Crossmatch: No Data to Display Complete Blood Count: No Data to Display Complete Metabolic Panel: No Data to Display Liver Function Panel: No Data to Display Coagulation Panel: No Data to Display Cardiac Panel: No Data to Display Arterial Blood Gas: No Data to Display Venous Blood Gas: No Data to Display Pancreas Panel: No Data to Display Thyroid Panel: No Data to Display Infectious Disease: No Data to Display Blood Cultures: No Data to Display Toxicology Panel: No Data to Display Imaging and Studies Imaging and Studies Study information below may be from another EMR and interpreted by another provider. Please see original notes in EMR for more complete details. EKG Summary: DATE/TIME OF SERVICE: 06/10/221814 : 1960PERFORMING LOCATION: ER APPROVED REPORT Exam: Resting ECG Reason for Exam: fall down stairs Patient Location: E HR:63 bpm ECG Measurements Heart Rate 63 AXIS MS 166 P 49 QRSd 81 QRS 32 QT 411 T44 QTc 420 Conclusion Sinus rhythm...normal P axis, V-rate 60- 99 Low voltage, extremity and precordial leads...extremity<0.5mV, precordial<1.0mV. Echocardiogram Summary: Date of Exam: 07/16/18ex: F : 1960ge: 57 Exam(s) [id number] US:Heart US WO Doppler Or Color *[facility]* *[facility]* [address] [place] [address] Date of study: 07/16/2018 Transthoracic Echocardiography M-mode, limited 2D, limited spectral Doppler, and color Doppler *STUDY CONCLUSIONS* Impressions: Pericardial effusion, unchanged from the study of December 2017. Summary: 1. Left ventricle: The cavity size was normal. Wall thickness was normal. Systolic function was normal. The estimated ejection fraction was 60-65%. Wall motion was normal; there were no regional wall motion abnormalities. 2. Right ventricle: The cavity size was normal. Wall thickness was normal. Systolic function was normal. 3. Inferior vena cava: The vessel was patent and normal in size. The respirophasic diameter changes were in the normal range (greater than or equal to 50%). 4. Pericardium, extracardiac: A small pericardial effusion was identified circumferential to the heart, more pronounced along the RA and RV free wall. There was no evidence of hemodynamic compromise. Anesthesia Assessment and Plan Anesthesia History Personal History: Delayed Emergence Family History: No Family History of Anesthesia Complications Exercise Tolerance Exercise Tolerance: Metabolic Equivalents>4 Pertinent Negatives Pertinent Negatives: No Symptoms of GERD Cardiac & Pulmonary Exam Cardiac Exam: Normal S1/S2 Heart Sounds Pulmonary Exam: Clear Bilateral Breath Sounds Implantable Cardiac Device Does patient have a Pacemaker or an ICD?: No Airway Exam Known Difficult Airway: No Mallampati Class: 1 Mouth Opening: Normal (> 3cm) Thyromental Distance: Greater than 3 cm Neck Range of Motion: Full ROM Neck Circumference: Normal Teeth Condition: Normal Dentition ASA Classification ASA Score: ASA 2 Emergency Case?: No NPO Status NPO Status: NPO Clears >2 hours, Solids >8 hours Anesthesia Plan Resuscitation Status: Full Code Anesthesia Technique: General Anesthesia Airway Planned: Natural Airway Monitors Used: Standard Monitors
[2022-12-25 09:25] VITALS: BMI 20.7
[2022-12-25 11:44] VITALS: BP 101/67; PULSE 50; TEMP 36.2; O2SAT 99
--- NOTE | 2022-12-25 11:47 | W.ANESPOSTOP ---
Postoperative Evaluation Date, Time and Location Date Performed: 12/25/22 Time Performed: 11:47 Patient Location: Day Surgery Unit Vital Signs Most Recent Imported Vital Signs: Most Recent Vital Signs Temp Pulse Resp BP Pulse Ox 36.5 C 52 L 16 114/76 98 12/25/22 08:20 12/25/22 08:20 12/25/22 08:20 12/25/22 08:20 12/25/22 08:20 Pain Score Most Recent Pain Score: Most Recent Pain Score Pain Level 0 12/25/22 08:20 Assessment Mental Status: Awake (Alert & Oriented to Patient Baseline) Airway and Respiratory Function: Patent airway with normal (patient baseline) respiratory exam Cardiovascular Function: Hemodynamically Stable Hydration Status: Adequately Hydrated Nausea & Vomiting: No Nausea or Vomiting Pain: Pt. Denies Any Pain Peripheral Nerve Block: Patient did not receive a nerve block
[2022-12-25 12:09] VITALS: BP 100/74; PULSE 50; RESP 16; TEMP 36.6; O2SAT 100
== END 2022-12-25 08:21 | disposition home or self-care (01) ==
LOC: SUR 13:03
PROVIDERS: PCP Nurse Practitioner; Visit Provider Surgery
PROC: 0DJD8ZZ Inspection of Lower Intestinal Tract, Via Natural or Artificial Opening Endoscopic (ICD-10-PCS; CPT 45378; principal; 2022-12-25 09:30)
DX: Z12.11 Encounter for screening for malignant neoplasm of colon (principal); Z86.010 Personal history of colon polyps
CPT/HCPCS: 45378; J2704

== ENCOUNTER 2023-01-24 01:10 | Outpatient (CLI) | payer MEDICAID, SELFPAY ==
--- NOTE | 2023-01-24 07:00 | DI.RAD_ITS ---
Exam(s) RF BARIUM ENEMA EXAM: RF BARIUM ENEMA CLINICAL HISTORY: Incomplete colonoscopy,TUBULAR ADENOMA,D36.9 COMPARISON: No exams were available for comparison TECHNIQUE: 2D and realtime digital imaging was performed. CONTRAST MATERIAL: Barium contrast was administered. FINDINGS: The colon demonstrates no structural abnormalities including structure,dilation, adhesion, or mass. A small single diverticulum is seen in the proximal sigmoid colon. IMPRESSION: Single diverticulum. Otherwise unremarkable barium enema. RADIATION DOSE DELIVERED: livier Miller=72.9 mGy
== END 2023-01-24 01:30 ==
PROVIDERS: PCP Nurse Practitioner; Visit Provider Surgery
DX: K57.30 Diverticulosis of large intestine without perforation or abscess without bleeding; D36.7 Benign neoplasm of other specified sites; Z86.010 Personal history of colon polyps
CPT/HCPCS: 74270

== ENCOUNTER 2023-05-17 17:08 | Outpatient (CLI) | payer MEDICAID, SELFPAY ==
[2023-05-17 17:37] LABS: Abs Immature Grans 0.01 10^3/uL (0.0-0.06); Absolute Basophil Count 0.04 10^3/uL (0.0-0.2); Absolute Eosinophil Count 0.04 10^3/uL (0.0-0.7); Absolute Lymphocyte Count 1.46 10^3/uL (1.2-3.4); Absolute Monocyte Count 0.49 10^3/uL (0.1-0.8); Absolute Neutrophil Count 4.13 10^3/uL (1.2-6.7); Basophils % 0.6; Eosinophils % 0.6; HCT 35.8 % (36.0-46.0); HGB 12.5 g/dL (11.2-15.7); Immature Grans % 0.2; Lymphocytes % 23.7; MCH 31.3 pg (27.0-33.0); MCHC 34.9 % (32.0-36.0); MCV 90 fL (80-95); MPV 9.3 fL (8.0-11.0); Monocytes % 7.9; Platelet Count 241 10^3/uL (130-400); RDW 13.1 % (11.7-14.6); RDW-SD 43.1 fL; WBC 6.17 10^3/uL (4.4-10.8)
[2023-05-17 17:55] LABS: ALT 28 U/L (14-59); AST 18 U/L (15-37); Albumin 3.9 g/dL (3.4-5.0); Alkaline Phosphatase 83 U/L (46-116); Anion Gap 6.8 mmol/L (3-11); BUN 17 mg/dL (7-18); Bilirubin, Total 0.5 mg/dL (0.2-1.0); CO2 26.2 mmol/L (21.0-32.0); CREATININE 1.6 mg/dL (0.55-1.02); Calcium 8.8 mg/dL (8.5-10.1); Chloride 99 mmol/L (98-107); Estimated GFR 35.79 (mL/min/1.73m2); FREE T4 0.87 ng/dL (0.76-1.46); Glucose 101 mg/dL (74-106); Potassium 4.2 mmol/L (3.5-5.1); Sodium 132 mmol/L (136-145); TSH 0.99 uIU/mL (0.36-3.74); Total Protein 6.8 g/dL (6.4-8.2)
[2023-05-17 18:14] LABS: Iron 47 ug/dL (50-170); Total Iron Binding Capacity 275 ug/dL (250-450); Transferrin Sat 17 % (15-50)
[2023-05-17 18:33] LABS: Ferritin 254 ng/mL (8-252); Vitamin B12 1100 pg/mL (193-986)
[2023-05-17 18:41] LABS: Vitamin D 25 Total 37.9 ng/mL (30-100)
[2023-05-18 20:26] LABS: Thyroglobulin Antibody 164 U/mL (<=60); Thyroperoxidase Antibody 730 U/mL (<=60)
[2023-05-20 12:57] LABS: Ceruloplasmin 20.7 mg/dL
[2023-05-21 11:30] LABS: Copper, Serum 82 mcg/dL (77-206)
[2023-05-21 12:26] LABS: EBNA IgG Positive (Negative); EBV Interpretation (See Note); VCA IgG Positive (Negative); VCA IgM Negative (Negative)
[2023-05-21 13:03] LABS: Zinc, S 60 mcg/dL (60-106)
[2023-05-22 13:02] LABS: T3 (Triiodothyronine) Reverse 15 ng/dL (10-24)
[2023-05-22 22:22] LABS: Iodine, S 56 ng/mL (40-92)
== END 2023-05-17 17:09 | disposition home or self-care (01) ==
LOC: LBO 17:08
PROVIDERS: PCP Nurse Practitioner; Visit Provider Naturopath
DX: D25.9 Leiomyoma of uterus, unspecified (principal); E03.9 Hypothyroidism, unspecified; R07.81 Pleurodynia; R14.0 Abdominal distension (gaseous); R30.0 Dysuria; K58.0 Irritable bowel syndrome with diarrhea; K59.00 Constipation, unspecified; R53.83 Other fatigue; M25.521 Pain in right elbow; R18.8 Other ascites; R10.9 Unspecified abdominal pain; E53.8 Deficiency of other specified B group vitamins; Z79.899 Other long term (current) drug therapy; Z13.88 Encounter for screening for disorder due to exposure to contaminants
CPT/HCPCS: 36415; 80053; 82306; 82390; 82525; 84630; 82190; 82607; 82728; 83540; 83550; 84439; 84443; 84481; 84482; 85025; 86376; 86664; 86665; 86800

== ENCOUNTER 2023-06-28 18:55 | Outpatient (REF) | payer MEDICAID, SELFPAY ==
[2023-06-28 19:18] LABS: Anion Gap 7.3 mmol/L (3-11); BUN 14 mg/dL (7-18); CO2 27.7 mmol/L (21.0-32.0); CREATININE 0.8 mg/dL (0.55-1.02); Calcium 8.7 mg/dL (8.5-10.1); Chloride 102 mmol/L (98-107); Estimated GFR 82.23 (mL/min/1.73m2); Glucose 102 mg/dL (74-106); Potassium 3.8 mmol/L (3.5-5.1); Sodium 137 mmol/L (136-145)
== END 2023-06-28 18:56 | disposition home or self-care (01) ==
LOC: LBN 18:55
PROVIDERS: PCP Nurse Practitioner; Visit Provider Nurse Practitioner
DX: R79.89 Other specified abnormal findings of blood chemistry (principal); R20.0 Anesthesia of skin; F41.8 Other specified anxiety disorders; E06.3 Autoimmune thyroiditis
CPT/HCPCS: 80048

== ENCOUNTER → 2023-07-17 01:07 | Outpatient (CLI) | payer MEDICAID, SELFPAY ==
--- NOTE | 2023-07-17 08:15 | DI.MRI_ITS ---
Exam(s) MR CERVICAL SPINE WO EXAM: MR CERVICAL SPINE WO CLINICAL HISTORY: numbness, tingling both hands, h/o fusionddd,m43.22,r20.0 TECHNIQUE: Multiplanar multisequence MRI of the cervical spine was performed without intravenous con trast. COMPARISON: MR MR CERVICAL SPINE WO from 01/04/2021 FINDINGS: There is anterior fusion plate at C4-5-6 levels. No significant intraosseous signal. CERVICOMEDULLARY JUNCTION: Intact with no evidence of cerebellar tonsillar ectopia. No obvious abnor mality of the odontoid process. No evidence of Chiari 1 malformation. CERVICAL SPINAL CORD: There is again noted focus of increased signal in the cervical spinal cord at C 5 level, similar to the previous December 2020 MRI scan consistent with element of myelitis and there is some thinning of the spinal cord at this level again noted. OSSEOUS:There are no cervical fractures evident. No significant osseous lesions in the cervical vert ebrae. Reversal of the curvature is unchanged from 01/04/2021. INDIVIDUAL LEVELS: C2-3: No disc herniation nor central canal stenosis. No foraminal stenosis. No facet arthropathy. C3-4: This is 1 level above the fusion and again exhibits advanced disc space narrowing and anterior osteophytes. Posteriorly there is broad annular bulging with a central subligamentous disc protrusio n which appears similar to the previous study and indents the thecal sac and anterior spinal cord res ulting in spinal canal stenosis. The AP measurement of the canal at this level is only 5 mm. Howeve r, this is unchanged from the previous MRI study. There is no facet arthropathy at this level. Ther e are bilateral Luschka joint osteophytes but minimal if any foraminal stenosis seen. C4-5: Fused level. Posteriorly the central canal dimensions are lower normal but this is the level w hich exhibits focal abnormal signal in the thin cord consistent with myelitis but appearing stable wh en compared to MRI scan of December 2020.There is no disc protrusion at this level. No significant f acet arthropathy. No significant foraminal stenosis. There is anterior fusion. There is no fusion of the facet joints. C5-6: Also fused level. Rudimentary remaining disc space. Central canal dimensions are lower normal . No disc herniation. No Luschka joint osteophytes. Mild degenerative changes in the facet joints. No facet fusion. No significant foraminal stenosis. C6-7: This is 1 level below the fusion. There is chronic advanced disc space narrowing and there are bilateral Luschka joint osteophytes at this level. No disc herniation. Central canal dimensions ar e within normal limits. Small Luschka joint osteophytes bilaterally. No facet arthropathy. There i s some foraminal stenosis on the left side at this level. Minimal foraminal stenosis on the right si de. C7-T1: The previously present disc herniation at this level has decreased in size. There is now some annular bulging. However, central canal dimensions are lower normal. There are degenerative change s in facet joints. Mild bilateral facet of foraminal stenosis. IMPRESSION: 1. Compared to the prior MRI scan of December 2020 there is again noted C4 through C6 anterior fusion plate. 2. Multilevel degenerative disc disease and degenerative changes as described individually above but without significant progression when compared to the prior study. 3. There is focal abnormal signal in the cervical cord again noted at C5 level consistent with focal myelitis signal most probably related to pre-existing spinal canal stenosis prior to the fusion surge ry. This does not appear to have progressed from the prior study although there is some AP narrowing of the cervical spinal cord again noted. Other findings as above DATA REPOSITORY:
--- NOTE | 2023-07-17 08:15 | DI.MRI_ITS ---
Exam(s) MR THORACIC SPINE WO EXAM: MR THORACIC SPINE WO CLINICAL HISTORY: numbness, tingling both hands, h/o fusion,ddd,m43.22,r20.0 TECHNIQUE: Multiplanar multisequence MRI of the thoracic spine was performed without intravenous con trast. COMPARISON: MR MR THORACIC SPINE WO from 08/31/[address] RENAL COLIC WO from 05/10/2022 MR MR CERVICAL SPINE WO from 07/17/2023 FINDINGS: OSSEOUS: There are no acute appearing thoracic vertebral fractures. There are no ominous osseous les ions in the thoracic vertebrae. THORACIC SPINAL CORD: There is no abnormal signal in the cervical spinal cord and no evidence of foca l cord atrophy nor focal cord swelling. There is no evidence of syringomyelia nor significant spinal cord dysraphism. There is no evidence of mass at the conus medullaris. The position of the conus me dullaris is at normal level. SIGNIFICANT INDIVIDUAL LEVEL FINDINGS: C7-T1: Mild annular bulging. No prominent disc herniation posteriorly. Central canal dimensions are within normal limits. There is mild foraminal stenosis on the left side. T4-5: Small posterolateral right disc protrusion which indents the thecal sac but not the spinal cord . No abnormal signal in the cord. No foraminal stenosis. Facet joints appear unremarkable. PARASPINAL TISSUES: Cysts noted in the posterior aspect of the right hepatic lobe which measures 1.7 x 1.2 cm. Other small on larger cysts in the liver also noted but only partially included in the fie ld of view. IMPRESSION: 1. Small posterolateral right disc protrusion evident at T4-5 level. No significant canal stenosis n or foraminal stenosis at this level. 2. Mild annular bulging at C7-T1 level. No prominent disc herniation at this level. 3. Thoracic spinal cord and conus medullaris appear unremarkable. DATA REPOSITORY:
--- NOTE | 2023-07-17 14:15 | DI.CT_ITS ---
Exam(s) CT HEAD WO EXAM: CT HEAD WO CLINICAL HISTORY: s/p head injury unknown if LOC, hit head shelves 07/10, feels off balance. TECHNIQUE: Imaging Protocol: Axial computed tomography images with coronal and sagittal reformatted images were created and reviewed COMPARISON: CT CT HEAD CERVICAL SPINE WO from 06/10/2022 FINDINGS: Ventricles and Extra axial spaces: Normal in size and morphology for the patient's age. Hemorrhage: None. Cerebral parenchyma: Normal. Midline shift: None. Brainstem/Cerebellum: Normal. Calvarium: Normal. Visualized Paranasal sinuses/Mastoids: Clear. Soft Tissues: Unremarkable. IMPRESSION: No acute intracranial process. RADIATION DOSE DELIVERED: 667.82mGy.cm Total DLP DATA REPOSITORY: All CT scans at this facility are submitted to the National Radiology Data Registry (NRDR) Dose Index Registry (DIR) with the [employer] (A[employer]). RADIATION OPTIMIZATION: All CT scans at this facility use at least one of these dose optimization te chniques: automated exposure control; mA and/or kV adjustment per patient size (includes targeted exa ms where dose is matched to clinical indication); or iterative reconstruction.
== END ==
PROVIDERS: PCP Nurse Practitioner; Visit Provider Nurse Practitioner
DX: R20.0 Anesthesia of skin; R26.89 Other abnormalities of gait and mobility; S09.90XA Unspecified injury of head, initial encounter; M43.22 Fusion of spine, cervical region; X58.XXXA Exposure to other specified factors, initial encounter
CPT/HCPCS: 70450; 72141; 72146

== ENCOUNTER 2023-10-02 11:18 | Outpatient (CLI) | payer MEDICAID, SELFPAY ==
--- NOTE | 2023-10-02 11:15 | RT.EKG_ITS ---
APPROVED REPORT Exam: Resting ECG Reason for Exam: chest pain Patient Location: O HR:58 bpm ECG Measurements Heart Rate 58 AXIS OR 150 P 36 QRSd 92 QRS 22 QT 408 T 33 QTc 401 Conclusion Sinus rhythm...normal P axis, V-rate 50- 99 Low voltage, extremity and precordial leads...extremity<0.5mV, precordial<1.0mV Otherwise normal ECG
== END 2023-10-02 11:19 | disposition home or self-care (01) ==
LOC: DI.KIM 11:19
PROVIDERS: PCP Nurse Practitioner; Visit Provider Nurse Practitioner
DX: R07.9 Chest pain, unspecified (principal)
CPT/HCPCS: 93010

== ENCOUNTER → 2024-03-05 02:48 | Outpatient (CLI) | payer MEDICARE, SELFPAY ==
--- NOTE | 2024-03-05 09:40 | DI.MRI_ITS ---
Exam(s) MR CERVICAL SPINE WO EXAM: MR CERVICAL SPINE WO CLINICAL HISTORY: Z98.1 S/P cervical spine fusion,R20.0 Numbness of hand, Head trauma after TECHNIQUE: Multiplanar multisequence MRI of the cervical spine was performed without intravenous con trast. COMPARISON: MR MR CERVICAL SPINE WO from 07/17/2023 CR XR CERVICAL 3 VIEW from 02/15/2024 FINDINGS: When compared to the MRI scan of 07/17/2023 there has been interval additional surgery C3-4 level whe re there is now a 2 screw intervertebral disc space device which was not evident on the MRI scan of 0 07/17/2023. The tri level anterior fusion plate at C4-C5-C6 is again noted. CERVICOMEDULLARY JUNCTION: Intact with no evidence of cerebellar tonsillar ectopia. No obvious abnor mality of the odontoid process. No evidence of Chiari 1 malformation. CERVICAL SPINAL CORD: There is a small focus of signal abnormality in the cervical cord at C5 level a gain noted as well as AP thinning of the cord at this level again noted. OSSEOUS:There are no cervical fractures evident. No significant osseous lesions in the cervical vert ebrae. INDIVIDUAL LEVELS: C2-3: No disc significant herniation nor central canal stenosis. No foraminal stenosis. No facet art hropathy. C3-4: This level exhibits significant improvement since the interval surgery. The disc herniation at this level has decreased in size (or surgically decreased). However, there is still some right para central bulging and this indents the thecal sac and contacts the anterior right side of the spinal co rd at this level but somewhat less pronounced than was evident on the June 2023 study. The AP diam eter of the spinal canal at this level is 7.5 mm, as seen on the axial T2 images. This is slightly m ore generous than the 5 mm measurement of 07/17/2023 at this level. There is no abnormal signal with in the cervical spinal cord at this level. Facet joints at this level appear unremarkable. There is no prominent foraminal stenosis on either side at this level. C4-5: This is the uppermost fused level.Vertebral bodies are fused. Facet joints are not fused but d o not exhibit significant facet arthropathy. There is no remaining disc space at this level. Strategic Planning Director iorly the AP measurement of the canal is 9.5 mm with no significant compression of the thecal sac and spinal cord although the spinal cord is again noted to exhibit thinner than typical AP measurement a t this level (4 mm). There is a focus of T2 bright signal abnormality in the cord at this level note d, best seen on the sagittal T2 images consistent with element of myelitis, somewhat similar to the p revious study. No evidence of syrynx. No significant foraminal stenosis evident at this level. C5-6: This level is also fused with only rudimentary in remaining disc space without disc herniation. AP measurement of the canal at this level is 9.5 mm without disc herniation and without abnormal si gnal in the cord at this level. Facet joints are not fused but do not exhibit significant facet arth ropathy. There is a Luschka joint osteophyte on the left side at this level with mild left-sided for aminal stenosis. C6-7: This is 1 level below the fusion. Chronic disc space narrowing again noted and anterior osteop hytes, unchanged. There is mild annular bulging without a dominant disc herniation. Central canal d imensions lower normal with AP measurement 11 mm. No abnormal signal in the cord at this level. The re are bilateral Luschka joint osteophytes. There is foraminal stenosis on the right side. Right fa cet joints unremarkable. On the left side at this level there also Luschka joint osteophytes and for aminal stenosis. Minimal facet joint degenerative changes. C7-T1: The previously present disc protrusion at this level has decreased in size and there is now no significant disc herniation nor central canal stenosis. The AP measurement of the canal at this lev el is 10.5 mm. There are degenerative changes in both facet joints. Mild bilateral foraminal stenos is. IMPRESSION: 1. Compared to the prior MRI study of June 2023 there has been interval surgery with placement of i ntervertebral disc space device at C3-4 level and with significant improvement at this level with res pect to less central spinal canal stenosis now evident. The AP diameter of the canal at this level i s presently 7.5 mm as seen on axial T2 images, this being somewhat improved when compared to the 5 mm measurement of 07/17/2023 at this level. There is no abnormal signal within the cervical cord at th is level although the AP diameter of the cord is again noted to be decreased from this level down to C5-6. 2. Focus of increased signal within the narrowed spinal cord at C4-5 level noted consistent with an e lement of myelitis, somewhat similar to the previous study. This is despite the AP measurement of th e canal being 9.5 mm at this level. 3. There are Luschka joint osteophytes at C5-6 and C6-7 levels as described above with an element of foraminal stenosis at these levels. Other findings as above. DATA REPOSITORY:
== END ==
PROVIDERS: PCP Nurse Practitioner; Visit Provider Neurological Surgery
DX: R20.0 Anesthesia of skin (principal); M50.021 Cervical disc disorder at C4-C5 level with myelopathy; M50.323 Other cervical disc degeneration at C6-C7 level; Z98.1 Arthrodesis status
CPT/HCPCS: 72141

== ENCOUNTER → 2024-03-05 02:53 | Outpatient (CLI) | payer MEDICARE, SELFPAY ==
[2024-03-05] MEDS: Gadoterate meglumine 20 ML SYRINGE 11 ML IVP (10:15)
--- NOTE | 2024-03-05 10:40 | DI.MRI_ITS ---
Exam(s) MR IAC BRAIN WO/W EXAM: MR IAC BRAIN WO/W CLINICAL HISTORY: R20.2 paresthesia,R53.83 Fatigue,H93.A9 pulsatile tinnitus, H53.8 Vison TECHNIQUE: Multiplanar multisequence MRI of the brain was performed. Both noninfused and contrast i nfused sequences were performed. IV Contrast injected was 11 cc Dotarem. COMPARISON: CT scan 07/17/2023 was reviewed. FINDINGS: CEREBRAL PARENCHYMA: No evidence of intracranial hemorrhage, mass effect nor shift of midline structu re. No extraaxial fluid collections. Ventricles are not enlarged nor shifted. No evidence of cerebellar tonsillar ectopia. There is no significant focal signal abnormality in the cerebellar hemispheres nor within the blaise, m idbrain, and thalami. There are few nonspecific small FLAIR bright foci of white matter signal abnormality measuring up to the 4 mm, not associated with hemorrhage, surrounding edema, restricted diffusion, nor enhancement. DWI: No areas of restricted diffusion to suggest acute ischemic event. SWI: No microhemorrhages evident. There are no ring enhancing lesions in the brain. There is no abnormal meningeal enhancement. No ev idence of venous sinus thrombosis. IAC's: No evidence of mass in the cerebellopontine angles nor evidence of enhancing intra canalicular acoustic neuroma. The 7th and 8th cranial nerves appear unremarkable within the internal auditory c anals bilaterally. PITUITARY GLAND: No mass nor parasellar abnormality. No obvious abnormality in the cavernous sinuses. FLOW VOIDS: The expected flow void are noted. No evidence of obvious aneurysm nor obvious vascular ma lformation. PARANASAL SINUSES: The visualized paranasal sinuses appear unremarkable. ORBITS: No obvious abnormal findings. IMPRESSION: 1. No evidence of acoustic neuroma/schwannoma on this IAC dedicated brain MRI study. 2. No abnormal enhancing intracranial findings. There are no ring enhancing lesions in the brain and there is no abnormal meningeal enhancement. 3. There are few small foci of FLAIR bright signal abnormality in the periventricular white matter w hich are nonspecific findings and are not associated with hemorrhage, surrounding edema, enhancement, nor restricted diffusion. DATA REPOSITORY:
== END ==
PROVIDERS: PCP Nurse Practitioner; Visit Provider Nurse Practitioner Primary Care
DX: R20.2 Paresthesia of skin (principal); R53.83 Other fatigue; H93.A3 Pulsatile tinnitus, bilateral; H53.8 Other visual disturbances
CPT/HCPCS: 70553; 72141

== ENCOUNTER → 2024-03-25 02:26 | Outpatient (CLI) | payer MEDICARE, SELFPAY ==
--- NOTE | 2024-03-25 12:15 | DI.US_ITS ---
Exam(s) US THYROID EXAM: US THYROID CLINICAL HISTORY: hypothyroid, neck pain. TECHNIQUE: Ultrasound thyroid performed using standard protocol. COMPARISON: No exams were available for comparison FINDINGS: ISTHMUS: 2 mm RIGHT LOBE: Size: 5.0 x 1.4 x 1.7 cm Echogenicity: Normal. Vascularity: Normal. Nodules: No suspicious nodules. Several tiny colloid cysts. LEFT LOBE: Size: 3.8 x 0.9 x 1.2 cm Echogenicity: Normal. Vascularity: Normal. Nodules: No suspicious nodules. Several tiny colloid cysts.. OTHER FINDINGS: None. IMPRESSION: Normal size thyroid. Several tiny colloid cysts noted. No suspicious nodules. DATA REPOSITORY:
== END ==
PROVIDERS: PCP Nurse Practitioner; Visit Provider Nurse Practitioner
DX: E04.2 Nontoxic multinodular goiter
CPT/HCPCS: 76536

== ENCOUNTER 2024-03-25 06:45 | Emergency (ER) | payer MEDICARE, SELFPAY ==
[2024-03-25] VITALS (21 sets, daily range): BP systolic 158; BP diastolic 82; PULSE 55–70; RESP 20; TEMP 36.9; O2SAT 95–99
--- NOTE | 2024-03-25 07:15 | DI.CT_ITS ---
Exam(s) CT ABDOMEN PELVIS WO EXAM: CT ABDOMEN PELVIS WO CLINICAL HISTORY: generalized abdominal pain. TECHNIQUE: Imaging Protocol: Axial computed tomography images with coronal and sagittal reformatted images were created and reviewed. Oral: / no COMPARISON: CT CT THORACIC LUMBAR SPINE REC from 06/10/[address] CHEST/ABD/PEL W from 06/10/2022 FINDINGS: Exam mildly limited by streak artifact secondary to arm position. The exam is also limited by motion lower images and lack of intra-abdominal fat as well as lack of IV and oral contrast. Lung Bases: posterior to dependent changes. Small pericardial effusion. Similar to prior. Liver: Normal density. No suspicious mass. Cyst again noted. Gallbladder and biliary tract: No radiodense calculus or biliary dilation. Pancreas: Normal density, no abnormal calcifications or inflammatory process. Spleen: Normal. Kidneys: Normal size, contour and axis. No radiodense stones or obstructive uropathy. No suspicious m asses seen. Adrenal glands: No masses seen. Lymph nodes: Within normal limits. Vasculature: Abdominal aorta non-dilated. Soft tissues: Unremarkable. Bladder: Somewhat over distended. No wall thickening. No mass or calculi. Bowel: No obstruction or bowel wall thickening. . Bowel suboptimally evaluated due to motion, lack o f oral IV contrast as well as lack of intra-abdominal fat. Appendix is not visualized. Peritoneal cavity: No ascites, collection or mesenteric inflammatory response. Reproductive organs: Unremarkable. Bones: Mild compression of the inferior endplate of L3. New when compared the prior exam. Degenerat ruth disc changes at L4-5. IMPRESSION: Limited exam. No gross acute abnormality in the abdomen or pelvis. RADIATION DOSE DELIVERED: 599.01mGy.cm Total DLP DATA REPOSITORY: All CT scans at this facility are submitted to the National Radiology Data Registry (NRDR) Dose Index Registry (DIR) with the [employer] (ACR). RADIATION OPTIMIZATION: All CT scans at this facility use at least one of these dose optimization te chniques: automated exposure control; mA and/or kV adjustment per patient size (includes targeted exa ms where dose is matched to clinical indication); or iterative reconstruction.
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
[2024-03-25] MEDS: OLANZapine 10 MG TAB 20 MG PO (07:49)
[2024-03-25] MEDS: LORazepam 2 MG/ML VIAL 1 MG IVP (08:00)
[2024-03-25 08:15] LABS: Abs Immature Grans 0.02 10^3/uL (0.0-0.06); Absolute Basophil Count 0.01 10^3/uL (0.0-0.2); Absolute Eosinophil Count 0.02 10^3/uL (0.0-0.7); Absolute Lymphocyte Count 1.08 10^3/uL (1.2-3.4); Absolute Monocyte Count 0.37 10^3/uL (0.1-0.8); Absolute Neutrophil Count 5.16 10^3/uL (1.2-6.7); Basophils % 0.2; Eosinophils % 0.3; HCT 36.6 % (36.0-46.0); HGB 12.7 g/dL (11.2-15.7); Immature Grans % 0.3; Lactate 1.4 mmol/L (0.6-1.4); Lymphocytes % 16.2; MCH 31.2 pg (27.0-33.0); MCHC 34.7 % (32.0-36.0); MCV 90 fL (80-95); MPV 9.2 fL (8.0-11.0); Monocytes % 5.6; Neutrophils % 77.4; Platelet Count 237 10^3/uL (130-400); RBC 4.07 10^6/uL (3.93-5.22); RDW 13.8 % (11.7-14.6); RDW-SD 45.8 fL; WBC 6.66 10^3/uL (4.4-10.8)
[2024-03-25] MEDS: Normal Saline 1,000 ML 1000 ML IV (08:16)
[2024-03-25 08:39] LABS: Ammonia 18 umol/L (11-32)
[2024-03-25 08:45] LABS: ALT 36 U/L (14-59); AST 16 U/L (15-37); Alkaline Phosphatase 75 U/L (46-116); Anion Gap 10.6 mmol/L (3-11); BUN 9 mg/dL (7-18); Bilirubin, Total 0.7 mg/dL (0.2-1.0); CO2 24.4 mmol/L (21.0-32.0); CREATININE 0.9 mg/dL (0.55-1.02); Calcium 9.1 mg/dL (8.5-10.1); Chloride 96 mmol/L (98-107); ETHANOL BLOOD < 3.0 mg/dL (<10); Estimated GFR 70.95 (mL/min/1.73m2); Glucose 120 mg/dL (74-106); Lipase 44 U/L (16-77); Potassium 4.2 mmol/L (3.5-5.1); Sodium 131 mmol/L (136-145); TSH (W/Ref FT4) 2.04 uIU/mL (0.36-3.74); Total Protein 6.8 g/dL (6.4-8.2)
[2024-03-25 08:58] LABS: COVID-19 PCR Negative (Negative); Influenza A PCR Negative (Negative); Influenza B PCR Negative (Negative); RSV PCR Negative (Negative)
[2024-03-25 09:02] LABS: Source Nasopharynx
--- NOTE | 2024-03-25 10:33 | NUR.NOTE ---
PT roused by this nurse, difficult to rouse and understand. Consents to attempting to give a urine sample. Tech is assisting pt with this. Nursing Note:
[2024-03-25 10:46] LABS: Bilirubin Negative (Negative); Blood Negative (Negative); Clarity Clear (Clear); Glucose Negative (Negative); Ketones Negative (Negative); Leukocyte Esterase Negative (Negative); Nitrite Negative (Negative); Specific Gravity 1.015 (1.005-1.025); Urobilinogen 0.2 mg/dL (Up to 0.2); pH 7.5 (5-8)
--- NOTE | 2024-04-06 09:28 | NUR.NOTE ---
patient called the ER looking for assistance with follow up to adjust medications. patient states she has spoken with Marky CHURCH who suggested otc medication and patient will contact pcp in the morning. patient advised we are always here in the ER if she feels she needs to be evaluated further. Nursing Note:
== END 2024-03-25 12:24 | disposition home or self-care (01) ==
PROVIDERS: Emergency Provider Student in an Organized Health Care Education/Training Program; PCP Nurse Practitioner
DX: F41.9 Anxiety disorder, unspecified (principal); Z98.1 Arthrodesis status; Z91.128 Patient's intentional underdosing of medication regimen for other reason
CPT/HCPCS: 36415; 80053; 83690; 87637; 96361; 96374; 99284; 74176; 76536; 80320; 81003; 82140; 83605; 84443; 85025; J2060

== ENCOUNTER → 2024-04-02 01:50 | Outpatient (CLI) | payer MEDICARE, SELFPAY ==
--- NOTE | 2024-04-02 08:00 | DI.MAMMO_ITS ---
Exam(s) MAMMO SCREENING EXAM: MAMMO SCREENING CLINICAL HISTORY: screening,z12.39 TECHNIQUE: Mammograms were interpreted according to the usual protocol including computer analysis w [employer] CAD system, tomosynthesis and C-view imaging. COMPARISON: 2017 and 2021 FINDINGS: The breasts are composed of heterogeneously dense fibroglandular densities, Breast Density category C . No suspicious masses or suspicious microcalcifications are seen. No skin thickening or abnormal axillary lymph nodes are seen. There has been no significant change from prior exams. IMPRESSION: BI-RADS Category 1, Negative mammogram. Yearly screening mammography is recommended. Breast Density Category C, heterogeneously Dense. The mammogram demonstrates the patient's breast tissue is dense. Dense breast tissue is very common a nd is not abnormal but dense breast tissue can make it harder to find cancer on a mammogram. Also, de nse breast tissue may increase breast cancer risk. This information about the result of the mammogram report was provided to the patient to raise their awareness. Use this report when you speak with the patient about their risks for breast cancer, which includes their family history. At that time, you may recommend additional screening tests (Ultrasound or MRI) as they might be useful based on their r isk. A negative radiographic report should not delay biopsy if a dominant or clinically suspicious mass is present. Up to ten percent of cancers are not identified on mammography. A negative report may reinforce clinical impression. Adenosis and dense breasts may obscure an underlying neoplasm. False positive reports average 6 to 10%.
== END ==
PROVIDERS: PCP Nurse Practitioner; Visit Provider Nurse Practitioner
DX: Z12.31 Encounter for screening mammogram for malignant neoplasm of breast (principal)
CPT/HCPCS: 77063; 77067

== ENCOUNTER → 2024-06-16 07:28 | Outpatient (BNVA) | payer MEDICARE, SELFPAY | PROVIDERS: PCP Nurse Practitioner; Visit Provider Nurse Practitioner Adult Health | DX: G56.01 Carpal tunnel syndrome, right upper limb (principal); G56.22 Lesion of ulnar nerve, left upper limb | CPT/HCPCS: 95911; 99214 ==

== ENCOUNTER 2024-06-27 15:10 | Outpatient (CLI) | payer MEDICARE, SELFPAY ==
[2024-06-27 13:58] LABS: TSH (W/Ref FT4) 1.82 uIU/mL (0.36-3.74)
--- OUTSIDE RECORDS SUMMARY | 2024-06-27 15:13 | XMS_ITS | Encounter Summary ---
[place] [address] Care Team Providers Care Water Control Supervisor Name Role Phone Rosita Cumminsyce Tanvir HENLEY Primary Care Provider [phone] Encounter Details Date Type Department Care Team (Late st Contact Info) Description 07/20/2022 Telephone Obstetrics [place] [id number] Lavinia Coyle Social History Tobacco Use Types Packs/Day Years Used Date Smoking Tobacco: Never Smokeless Tobacco: Never Comments:Exposure to smoking in the home until the age of 16 Alcohol Use Standard Drinks/Week Comments No 0 (1 standard drink = 0.6 oz pur e alcohol) Sex and Gender Information Value Date Recorded Sex Assigned at Not on file Gender Identity Female 11/09/2018 9:36 PM EST Sexual Orientation Not on file documented as of this encounter Miscellaneous Notes * Telephone Encounter - Lavinia Coyle - 07/20/2022 2:43 PM EDT Lm we had to reschedule her appt on 07/21 with Gwendolyn George, I scheduled her on 07/[address] Ryan, asked her to call and confirm appointment., Please let me know that she confirmed documented in this encounter Plan of Treatment Scheduled Procedures Name Priority Associated Diagnoses Date/Ti me COLONOSCOPY, DIAGNOSTIC (WRV U 3.26) Encounter for colorectal cancer screening documented as of this encounter Visit Diagnoses Not on filedocumented in this encounter Care Teams Water Control Supervisor Relationship Specialty Start Date End Date April Cummins, WAREHOUSE SHIPPING RECEIVING CLERK [address] [place] [address] PCP - General Internal Medicine 01/13/21 documented as of this encounter
--- OUTSIDE RECORDS SUMMARY | 2024-06-27 15:13 | XMS_ITS | Encounter Summary ---
Author Organization [facility] Address [address] [place] [address] Care Team Providers Care Internet Application Developer Name Role Phone Unknown, Provider Primary Care Provider [phone] April Cummins NP Primary Care Provider [phone] Encounter Details Date Type Department Care Team (Late st Contact Info) Description 08/08/2016 Historical Results Only [facility] - Main [place] [address] [place], [place] [address] Dandre Esquivel, [address] [id number] Social History Tobacco Use Types Packs/Day Years Used Date Smoking Tobacco: Never Assessed AUDIT-C Answer Date Recorded Frequency of Alcohol Consumption Never 03/12/2019 Average Number of Drinks Not on file 019 Frequency of Binge Drinking Not on file 02/24 Sex and Gender Information Value Date Recorded Sex Assigned at Not on file Gender Identity Not on file Sexual Orientation Not on file documented as of this encounter Plan of Treatment Not on file documented as of this encounter Procedures Procedure Name Priority Date/Time Associated Diagnosis Comments PATHOLOGY SUMMARY REPORT Routine 08/08/2016 16:39 EDT documented in this encounter Results * PATHOLOGY SUMMARY REPORT (08/08/2016 16:39 EDT) 08/08/2016 16:3 9 EDT 08/08/2016 19:52 EDT Narrative [facility] - 08/31/2016 11:33 EDT Instructions? FAX ATTENTION: DANDRE ESQUIVEL NUMBER: [id number] TEST TO BE FAXED?: LABS ----- ------- Name: KALYN KWAN ? : 56 ?Age/Sex: 58/F ?Unit#: [id number] ? Loc: LAB.OPD ? Status: REG CLI ?? Reg Date: 08/08/16 ? Pt.Phone Number: ? ----- ------- Specimen: [id number] ?STATUS: SOUT ?Spec Date:08/08/16 ? Physician Copies: ?Ravinder Xiao CPT: 88373 ?? Units: ??1 ----- ------- ?CLINICAL HISTORY The patient is a 55 year old woman. ??Peripheral smear review is requested by Dandre Esquivel ND. ? IMPRESSION PERIPHERAL SMEAR REVIEW: - NO ABNORMALITIES IDENTIFIED. ?CLINICAL CONSULT RESULTS ?? Peripheral Smear Review: ?? RBC: Red cell indices are within normal limits. ??Red cells show mild variation ?? in size and shape. ??No nucleated red cells are found. ??No morphologic ?? abnormalities are identified. ?? WBC: White blood cells are present in normal number and distribution. ??No ?? immature cells or blasts are found. ??No morphologic abnormalities are ?? identified. ?? PLT: Adequate platelets are present. ??No morphologic abnormalities are seen. ? CBC 08/08/16: ?? WBC ?5.7 ?3.5-10.5 10e3/ul ?? RBC ?3.90 ? 3.8-5.2 10e6/ul ?? HGB ?12.0 ? 11.2-15.7 g/dl ?? HCT ?35.6 ? 34.0-47.0 % ?? MCV ?91.3 ? 77-100 fl ?? MCH ?30.8 ? 26-34 pg ?? MCHC ? 33.7 ? 31-36 g/dL ?? RDW ?13.4 ? 11.8-15.6 % ?? PLT ?243 ?150-400 10e3/ul ?? LYMPH % ? 28 ?20-40 % ?? MONO % ?8 ? 0-12 % ?? GRAN % ?62 ?40-80 % ?? EOS % ? 2 ? 0-5 % ?? BASO % ?0 ? 0-2 % ?? LYMPH # ?1.59 ? 0.9-2.9 10e3/uL ?? ANC ?3.55 ? 1.7-7.0 10e3/ul ?? RETIC COUNT ?0.8 ?0.5-1.8 % ?? IRF ?1.1 ? L ?3.0-15.9 % Signed ____(signature on file)____ Lesly Curiel M.D. 08/31/16 By the signature above, the attending physician certifies that he/she has personally conducted a gross and/or microscopic examination of the described specimens and rendered or confirmed the above diagnosis. Test Performed by [facility], [address] [place] [address] [place]everman: Lesly Curiel MD PHD ----- ------- Dandre Esquivel ND PATHOLOGY ORDERABLES [facility] documented in this encounter Visit Diagnoses Not on filedocumented in this encounter Care Teams Internet Application Developer Relationship Specialty Start Date End Date Unknown, Provider, PCP - General 08/08/16 02/20/19 April Cummins NP [address] [place] [address] PCP - General 02/21/19 documented as of this encounter
--- OUTSIDE RECORDS SUMMARY | 2024-06-27 15:13 | XMS_ITS | Encounter Summary ---
Author Organization [facility] Address [address] [place] [address] Care Team Providers Care Orthopedic Nurse Practitioner Name Role Phone April Cummins Tanvir TARP REPAIRER Primary Care Provider [phone] Encounter Details Date Type Department Care Team (Late st Contact Info) Description 07/18/2022 Lab Requisition [facility] Pathology & Laboratory Medicine - [facility] [address] [place] [address] Outr Resulting Lab, Provider Social History Tobacco Use Types Packs/Day Years Used Date Smoking Tobacco: Never Smokeless Tobacco: Never Comments:Childhood second chacon nd smoke exposure Alcohol Use Standard Drinks/Week Comments No 0 (1 standard drink = 0.6 oz pur e alcohol) AUDIT-C Answer Date Recorded Frequency of Alcohol Consumption Never 03/12/2019 Average Number of Drinks Not on file 019 Frequency of Binge Drinking Not on file 02/24 Interpersonal Safety Answer Date Record ed Physically Hurt Never 06/28/2020 Verbally Threaten Not on file 06/28/2020 Sex and Gender Information Value Date Recorded Sex Assigned at Not on file Gender Identity Not on file Sexual Orientation Not on file documented as of this encounter Plan of Treatment Not on file documented as of this encounter Procedures Procedure Name Priority Date/Time Associated Diagnosis Comments T3 FREE Routine 07/18/2022 11:18 EDT documented in this encounter Results * T3 FREE (07/18/2022 11:18 EDT) T3, Free 3.4 2.8 - 5.3 pg/mL 07/18/2022 21:43 EDT [facility] Blood VENOUS BLOOD / Unknown 07/18/2022 11:18 EDT 07/18/2022 21:07 EDT Provider Outr Resulting Lab CHEMISTRY & BLOOD GAS ORDERABLES [facility] [address] [place] [address] documented in this encounter Visit Diagnoses Not on filedocumented in this encounter Care Teams Orthopedic Nurse Practitioner Relationship Specialty Start Date End Date April Cummins NP [address] [place] [address] PCP - General 02/21/19 documented as of this encounter
--- OUTSIDE RECORDS SUMMARY | 2024-06-27 15:13 | XMS_ITS | Encounter Summary ---
Author Organization [facility] Address [address] [place] [address] Care Team Providers Care Container Packer Operator Name Role Phone Unknown, Provider Primary Care Provider [phone] Reason for Visit * Reason Onset Date Comments Appointment Related 02/18/2019 Encounter Details Date Type Department Care Team (Late st Contact Info) Description 02/18/2019 Telephone [facility] Pelvic Medicine and Reconstructive Surgery - Medical Office [facility] [address] [place], [place] [address] Lily Campos MD Appointment Related Social History Tobacco Use Types Packs/Day Years Used Date Smoking Tobacco: Never Assessed Sex and Gender Information Value Date Recorded Sex Assigned at Not on file Gender Identity Not on file Sexual Orientation Not on file documented as of this encounter Miscellaneous Notes * Telephone Encounter - Terell Del Cid - 02/19/2019 0629 EDT PAS Message: Patient called back at 630am this morning to say that she can make the appt now and to not cancel the appt. * Telephone Encounter - Kerri Escalera - 02/18/2019 1816 EDT PAS Message: patient called to cancel appointment with Lily Campos MD on 02/21 at 11:15 due to needs to reschedule. Patient would like a call back to reschedule? She'll be calling documented in this encounter Plan of Treatment Not on file documented as of this encounter Visit Diagnoses Not on filedocumented in this encounter Care Teams Container Packer Operator Relationship Specialty Start Date End Date Unknown, Provider, PCP - General 08/08/16 02/20/19 documented as of this encounter
--- OUTSIDE RECORDS SUMMARY | 2024-06-27 15:13 | XMS_ITS | Encounter Summary ---
Author Organization [facility] Address [address] [place] [address] Care Team Providers Care Kindergarten Teacher Assistant Name Role Phone April Cummins SCHOOL BUS INSPECTOR Primary Care Provider [phone] Encounter Details Date Type Department Care Team (Latest Contact Info) Description 02/10/2022 Lab Requisition [facility] Pathology & Laboratory Medicine - [facility] [address] [place] [address] April Cummins NP [address] [place], [place] [id number] Encounter for screening for human papillomavirus (HPV); Encounter for screening for malignant neoplasm of cervix Social History Tobacco Use Types Packs/Day Years [...] Procedure Name Priority Date/Time Associated Diagnosis Comments PAP TEST Today 02/09/2022 1:50 EDT Encounter for screening for human papillomavirus (HPV) Encounter for screening for malignant neoplasm of cervix documented in this encounter Results * PAP TEST (02/09/2022 1:50 EDT) Specimens A. Cervix and/or Endocervix , ThinPrep Imaging System with Manual Evaluation 02/15/2022 13:52 T [facility] Specimen Adequacy Unsatisfactory for evaluation - insufficient numbers of squamous epithelial cells (less than 10% of expected cellularity) possibly due to lubricant. 02/15/2022 13:52 EDT [facility] General Categorization Unsatisfactory 02/15/2022 13:52 T [facility] Educational Comments Unsatisfactory - Specimen processed and examined, but unsatisfactory for evaluation of epithelial abnormality. Recommend Pap test in 2-4 months as stated in ASCCP's 2012 Updated Guidelines. HPV testing will not be performed due to the potential for false negative results. 02/15/2022 13:52 T [facility] Attestation . 02/15/2022 13:52 [facility] at 1352 Clinical History See below 02/16/20 13:52 EDT [facility] Performing Lab [facility] 02/15/2022 13:52 T [facility] Scanned Images 02/15/2022 13:52 [facility] Papanicolaou smear specimen (specimen) CERVIX UTERI STRUCTURE / Unknown 02/09/2022 1:50 EDT 02/10/2022 8:51 EDT April Cummins NP PATHOLOGY ORDERABLES [facility] [address] [place] [address] documented in this encounter Visit Diagnoses Diagnosis Encounter for screening for human papillomavirus (HPV) Special screening examination for human papillomavirus (HPV) Encounter for screening for malignant neoplasm of cervix Screening for malignant neoplasm of the cervix documented in this encounter Care Teams Kindergarten Teacher Assistant Relationship Specialty Start Date End Date April Cummins NP [address] [place] [address] PCP - General 02/21/19 documented as of this encounter
--- OUTSIDE RECORDS SUMMARY | 2024-06-27 15:13 | XMS_ITS | Encounter Summary ---
[place] [address] Care Team Providers Care Histologist Name Role Phone Rosita Cumminsyce Tanvir HENLEY Primary Care Provider [phone] Encounter Details Date Type Department Care Team (Late st Contact Info) Description 05/23/2022 Telephone [place] [id number] Shelby Mcfarland, RN Social History Tobacco Use Types Packs/Day Years [...] encounter Miscellaneous Notes * Telephone Encounter - Shelby Mcfarland RN - 05/23/2022 1:18 PM EDT Spoke with patient to review unread [facility] message. Patient states she does not need Metronidazole atthis time as diarrhea has improved. She states: I have some other issues going on now and I would like you to make Beth aware. Patients was found to have fibroid attached to bladder and polyp in uterus. She states that imagingalso showed abdominal ascites. Reports not seen in Care Everywhere (unable to update). She was referred to MENTAL HEALTH PROFESSIONAL here at for further evaluation and treatment. Transferred patient to MENTAL HEALTH PROFESSIONAL scheduling. * Telephone Encounter - Shelby Mcfarland RN - 05/23/2022 1:18 PM EDT ----- Message from Kalyn Darnell Case sent at 05/02/2022 3:58 PM EDT ----- Regarding: Unread Message Notification Contact: Bryant Mccain, I am writing to follow-up. You may already be aware that your insurance denied coverage of the Rifaximin which was prescribed for your IBS - diarrhea. Beth has prescribed Metronidazole as an alternative. It's important to be aware that you cannot consume any alcohol whatsoever while taking this medication and for a few days after, as the two combined result in a serious interaction. Please let us know if you have any questions about this message or about Metronidazole. Sincerely, MARLEY Ryan Section of Gastroenterology and Hepatology [facility] Tel. documented in this encounter Plan of Treatment Scheduled Procedures Name Priority Associated Diagnoses Date/Ti me COLONOSCOPY, DIAGNOSTIC (WRV U 3.26) Encounter for colorectal cancer screening documented as of this encounter Visit Diagnoses Not on filedocumented in this encounter Care Teams Histologist Relationship Specialty Start Date End Date April Cummins APRN [address] [place] [address] PCP - General Internal Medicine 01/13/21 documented as of this encounter
--- OUTSIDE RECORDS SUMMARY | 2024-06-27 15:13 | XMS_ITS | Encounter Summary ---
Author Organization [facility] [place] [address] Care Team Providers Care Tool Pusher Name Role Phone April Cummins Tanvir HENLEY Primary Care Provider [phone] Encounter Details Date Type Department Care Team (Late st Contact Info) Description 09/04/2022 Telephone [facility] [place] [address] Nichelle Gao LPN Social History Tobacco Use Types Packs/Day Years [...] encounter Miscellaneous Notes * Telephone Encounter - Nichelle Gao LPN - 09/05/2022 10:34 AM EDT Called pt and left message that I have spoken with her PCP office and they would be happy to collect urine tomorrow. * Telephone Encounter - Nichelle Gao LPN - 09/04/2022 3:17 PM EDT LM for pt to call me back. I have left 3 messages at her PCP office ( Heather Elise) and I have not heard back from there office yet. I ill see were else pt can have urine tested. * Telephone Encounter - Nichelle Gao LPN - 09/04/2022 1:01 PM EDT I have called and left another message on answering machine at Dr. Elise office pts. pcp * Telephone Encounter - Nichelle Gao LPN - 09/04/2022 8:56 AM EDT Post-operative Phone Call Kalyn Burgos is contacted by the office today for surgical follow-up of her Hysteroscopy- polypectomy performed on 08/30/22 The patient has no incisions Patient states that she has no Procedure pain and denies vaginal bleeding Patient deniesnausea and vomiting. Patient denies signs or symptoms of fever. She admits to normal bowel movement since procedure and Pt. Denies urgency and frequency but does states that she has left back pain which is sometimes how she present for UTI. I have called pt PCP Heather Elise at [phone] to see if pt can come to her office for Urine culture and UA as she has appointment with her on Sunday and pt lives much closer to her PCP then us . [place] [address] [place] [place] Patient has a follow up appointment on 09/14/22with Dr. Ryan Follow up actions taken: Call as needed * Telephone Encounter - Nichelle Gao LPN - 09/04/2022 8:44 AM EDT ----- Message from Nichelle Gao LPN sent at 08/11/2022 9:21 AM EDT ----- Regarding: POST OP CALL Contact: DOS [phone] Dr. Ryan HYSTEROSCOPY, SURG W/ENDOMETRIAL SAMPLING, POLYPECTOMY (WRVU 4.74) MODIFIER-MYOSURE Follow up 09-14-22 documented in this encounter Plan of Treatment Scheduled Procedures Name Priority Associated Diagnoses Date/Ti me COLONOSCOPY, DIAGNOSTIC (WRV U 3.26) Encounter for colorectal cancer screening documented as of this encounter Visit Diagnoses Not on filedocumented in this encounter Care Teams Tool Pusher Relationship Specialty Start Date End Date April Cummins, FRIT BURNER [address] [place] [address] PCP - General Internal Medicine 01/13/21 documented as of this encounter
--- OUTSIDE RECORDS SUMMARY | 2024-06-27 15:13 | XMS_ITS | Encounter Summary ---
Author Organization [facility] Address [address] [place] [address] Care Team Providers Care Commercial Insurance Underwriter Name Role Phone April Cummins SAWDUST DRIER Primary Care Provider [phone] Encounter Details Date Type Department Care Team (Late st Contact Info) Description 08/18/2020 Lab Requisition [facility] Pathology & Laboratory Medicine - [facility] [address] [place] [address] Outr Resulting Lab, Provider Social History Tobacco [...] Date/Time Associated Diagnosis Comments T3 FREE Routine 08/18/2020 8:30 EDT documented in this encounter Results * (ABNORMAL) T3 FREE (08/18/2020 8:30 EDT) T3, Free 2.4(L) 2.8 - 5.3 pg/mL 08/18/2020 17:42 EDT [facility] Blood VENOUS BLOOD / Unknown 08/18/2020 8:30 EDT 08/18/2020 17:10 EDT Provider Outr Resulting Lab CHEMISTRY & BLOOD GAS ORDERABLES [facility] [address] [place] [address] documented in this encounter Visit Diagnoses Not on filedocumented in this encounter Care Teams Commercial Insurance Underwriter Relationship Specialty Start Date End Date April Cummins NP [address] [place] [address] PCP - General 02/21/19 documented as of this encounter
--- OUTSIDE RECORDS SUMMARY | 2024-06-27 15:13 | XMS_ITS | Encounter Summary ---
Author Organization [facility] Address [address] [place] [address] Care Team Providers Care Box Stapler Name Role Phone Unknown, Provider Primary Care Provider [phone] April Cummins NP Primary Care Provider [phone] Encounter Details Date Type Department Care Team (Late st Contact Info) Description 05/24/2017 Historical Results Only [facility] - Main [address] [address] Carrillo Gutiérrez MD Social History Tobacco Use Types Packs/Day Years [...] Procedure Name Priority Date/Time Associated Diagnosis Comments SURGICAL PATHOLOGY Routine 05/24/2017 documented in this encounter Results * SURGICAL PATHOLOGY (05/24/2017) 05/24/2017 05/24/2017 16: 45 EDT Narrative [facility] - 05/25/2017 15:00 EDT ----- ------- Name: SINGHKALYN ? : 56 ?Age/Sex: 58/F ?Unit#: [id number] ? Loc: END ? Status: DEP CLI ?? Reg Date: 05/24/17 ? Pt.Phone Number: ? ----- ------- Specimen: [id number] ? STATUS: SOUT ?Spec Date:05/24/17 ? Physician Copies: ?Carrillo Gutiérrez MD ?? Tissues: A ?? Endoscopy specimen (DISTAL RECTUM) ? April Cummins NP CPT: 38911 ?? Units: ??1 ?FINAL DIAGNOSIS ? DISTAL RECTUM, POLYP, BIOPSY; ? -Tubular adenoma ? GROSS DESCRIPTION ? The specimen is received in formalin labeled with the patient's name and ? Distal rectal polyp and consists of shaikh-yellow tissue fragment measuring 0.3 ? x 0.2 x 0.2 cm submitted intact in 1 cassette. ??SS ?? PREOP DX/CLINICAL HISTORY ?Screening colonoscopy Signed ____(signature on file)____ Stacy Springer M.D. 05/25/17 ? By the signature above, the attending physician certifies that he/she has personally conducted a gross and/or microscopic examination of the described specimens and rendered or confirmed the above diagnosis. Test Performed by [facility], [address] [place] [address] Contract Admin: Lesly Curiel MD PHD ----- ------- Carrillo Gutiérrez MD PATHOLOGY ORDERABLES Performing Organization Address City/State/[facility] Co de Phone Number [facility] documented in this encounter Visit Diagnoses Not on filedocumented in this encounter Care Teams Box Stapler Relationship Specialty Start Date End Date Unknown, Provider, PCP - General 08/08/16 02/20/19 April Cummins NP [address] [place] [address] PCP - General 02/21/19 documented as of this encounter
--- OUTSIDE RECORDS SUMMARY | 2024-06-27 15:13 | XMS_ITS | Encounter Summary ---
Author Organization [facility] Address [address] [place] [address] Care Team Providers Care Venetian Blind Cleaner Name Role Phone April Cummins CUSTOM STUDIO COORDINATOR Primary Care Provider [phone] Encounter Details Date Type Department Care Team (Latest Contact Info) Description 02/24/2022 Lab Requisition [facility] Pathology & Laboratory Medicine - [facility] [address] [place] [address] April Cummins NP [address] [place], [place] [id number] Encounter for screening for malignant neoplasm of cervix; Encounter for screening for human papillomavirus (HPV) Social History Tobacco Use Types Packs/Day Years [...] Date/Time Associated Diagnosis Comments PAP TEST Today 02/23/2022 13:30 EDT Encounter for screening for malignant neoplasm of cervix Encounter for screening for human papillomavirus (HPV) HPV DNA DETECTION WITH GENOTYPING, PCR Today 02/23/2022 13:30 EDT Encounter for screening for malignant neoplasm of cervix Encounter for screening for human papillomavirus (HPV) documented in this encounter Results * HUMAN PAPILLOMAVIRUS (HPV) DETECTION-HIGH RISK TYPES (02/23/2022 13:30 EDT) HPV other High Risk types, PCR Negative Negative 03/01/2022 15:33 EDT [facility] Comment:No E6 or E7 mRNA is detected from HPV types 16,18,31,33,35,39,45,51,52,56,58,59,66, and 68 by director intelligence analysis programs mediated amplification. Papanicolaou smear specimen (specimen) CERVIX UTERI STRUCTURE / Unknown 02/23/2022 13:30 EDT 02/28/2022 10:52 EDT April Cummins CUSTOM STUDIO COORDINATOR MICROBIOLOGY - GENER AL ORDERABLES Performing Organization Address City/State/[facility] Co de Phone Number [facility] [address] [place] [phone] * PAP TEST (02/23/2022 13:30 EDT) Specimens A. Cervix and/or Endocervix , ThinPrep Imaging System with Manual Evaluation 03/01/2022 15:33 EDT [facility] Specimen Adequacy Satisfactory for Evaluation - transformation zone component absent 03/01/2022 15:33 [facility] General Categorization Negative for intraepithelial lesion or malignancy 03/01/2022 15:33 [facility] Attestation . 03/01/2022 15:33 [facility] at 1533 Clinical History See below 03/01/20 15:33 T [facility] HPV The result for the Human Papillomavirus (HPV) Detection-High Risk Types is Negative. No E6 or E7 mRNA is detected from HPV types 16,18,31,33,35,39 ,45,51,52,56,58,5 9,66, and 68 by director intelligence analysis programs mediated amplification.Stephanie ting was performed on specimen [id number] and was resulted on 03/01/2022 1532 EDT by GABRIEL, LAB INSTRUMENT RESULTS IN 03/01/2022 15:33 EDT [facility] Performing Lab [facility] 03/01/2022 15:33 EDT [facility] Scanned Images 03/01/2022 15:33 EDT [facility] Papanicolaou smear specimen (specimen) CERVIX UTERI STRUCTURE / Unknown 02/23/2022 13:30 EDT 02/24/2022 13:50 EDT April Cummins NP PATHOLOGY ORDERABLES [facility] [address] [place] [address] documented in this encounter Visit Diagnoses Diagnosis Encounter for screening for malignant neoplasm of cervix Screening for malignant neoplasm of the cervix Encounter for screening for human papillomavirus (HPV) Special screening examination for human papillomavirus (HPV) documented in this encounter Care Teams Venetian Blind Cleaner Relationship Specialty Start Date End Date April Cummins NP [address] [place] [address] PCP - General 02/21/19 documented as of this encounter
--- OUTSIDE RECORDS SUMMARY | 2024-06-27 15:13 | XMS_ITS | Continuity of Care Document ---
Author Organization [facility] Address [address] [place] [address] Care Team Providers Care Partridge Farmer Name Role Phone Rosita Cumminsyce Tanvir Primary Care Physician Encounter [facility] [id number] Date(s): 03/13/24 - 03/13/24 [facility] [address] [place] [address] Discharge Disposition: Home Allergies, Adverse Reactions, Alerts Substance Reaction Severity Status WHEAT Unknown Active folic acid Unknown Active bee pollen Unknown Active licorice Unknown Unknown Active tetracyclines Unknown Active Acetaminophene Unknown Active oxyCODONE Unknown Active Milk Unknown Active Sugar Unknown Active Medications acetylcysteine (NAC) oral solution 0 Refill(s) Start Date: 07/20/23 Status: Ordered baclofen 10 mg oral tablet 0 Refill(s) Start Date: 07/20/23 Status: Ordered buPROPion 150 mg/24 hours (XL) oral tablet, extended release 150 mg 1 tab, Oral, every 24 hr, # 30 tab, 0 Refill(s) Start Date: 07/20/23 Status: Ordered celecoxib 100 mg oral capsule 100 mg = 1 cap, Oral, BID, # 60 cap, 0 Refill(s) Start Date: 07/20/23 Status: Ordered EPINEPHrine 0.3 mg injectable kit 0.3 mg =, IM, Once, # 1 EA, 0 Refill(s) Start Date: 07/20/23 Status: Ordered FLUoxetine 20 mg oral capsule 20 mg = 1 cap, Oral, Daily, # 30 cap, 0 Refill(s) Start Date: 07/20/23 Status: Ordered FLUoxetine 40 mg oral capsule 40 mg = 1 cap, Oral, Daily, # 30 cap, 0 Refill(s) Start Date: 07/20/23 Status: Ordered fluticasone 50 mcg/inh nasal spray 2 spray intranasal daily, 0 Refill(s) Start Date: 07/20/23 Status: Ordered gabapentin 100 mg oral capsule 0 Refill(s) Start Date: 07/20/23 Status: Ordered glycerin 1 supp [place] QD-BID PRN, 0 Refill(s) Start Date: 07/20/23 Status: Ordered Problem List Condition Confirmation Course Effective Dates Status H ealth Status Informant Abdominal pain Confirmed Active 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 Adjustment disorder with anxiety Confirmed Active Food allergy Confirmed Active Anxiety Confirmed Active Anxiety disorder, unspecified Confirmed Active Back pain Confirmed Active Unspecified injury at unspecified level of cervical spinal cord, subsequent encounter Confirmed Active Spondylosis without myelopathy or radiculopathy, cervical region Confirmed Active Cervicogenic headache Confirmed Active Chest pain Confirmed Active Closed fracture of left tibia and fibula Confirmed Active B12 deficiency Confirmed Active Constipation Confirmed Active 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 Confirmed Active Endometrial polyp Confirmed Active Fatigue Confirmed Active Sensation of pressure in bladder area Confirmed Active Flank pain, acute Confirmed Active Displaced comminuted fracture of shaft of left tibia Confirmed Active Gastritis Confirmed Active Genital herpes Confirmed Active Wart of hand Confirmed Active 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 Confirmed Active Instability of left knee joint Confirmed Active Irritable bowel syndrome with diarrhea Confirmed Active Jaw pain Confirmed Active Calculus of left kidney Confirmed Active Abnormal MRI, cervical spine Confirmed Active Depression, major Confirmed Active Neck pain Confirmed Active Ureteral stone with hydronephrosis Confirmed Active Obstructive sleep apnea, adult Confirmed Active Mild obstructive sleep apnea Confirmed Active Osteoarthritis Confirmed Active Right elbow pain Confirmed Active Left knee pain Confirmed Active Periodic limb movement disorder Confirmed Active Small intestinal bacterial overgrowth Confirmed Active Thoracic back pain Confirmed Active Tubular adenoma Confirmed Active Left ureteral stone Confirmed Active Urinary tract infection symptoms Confirmed Active Uterine fibroid Confirmed Active Social History Social History Type Response Tobacco Never tobacco user T obacco Use:. Sex Female Patient Care team information Care Team Personnel Name: April Cummins NP Position: No Access Member Role: Primary Care Physician Address: Address: [facility] [address] [place] [address]- [place]
--- OUTSIDE RECORDS SUMMARY | 2024-06-27 15:13 | XMS_ITS | Encounter Summary ---
Author Organization [facility] Address [address] [place] [id number] Care Team Providers Care Buffet Attendant Name Role Phone Unknown, Provider Primary Care Provider Encounter Details Date Type Department Care Team (Latest Contact Info) Description 05/24/2017 8:49 EDT - 05/24/2017 23:59 EDT Hospital Encounter [facility] [address] [place] [address] Unknown, Provider, Discharge Disposition: Home or Self Care Social History Tobacco Use Types Packs/Day Years Used Date Smoking Tobacco: Never Assessed Sex and Gender Information Value Date Recorded Sex Assigned at Not on file Gender Identity Not on file Sexual Orientation Not on file documented as of this encounter Discharge Disposition Disposition Code Departure Means Destination Home or Self Retirement documented in this encounter Plan of Treatment Not on file documented as of this encounter Visit Diagnoses Not on filedocumented in this encounter Care Teams Buffet Attendant Relationship Specialty Start Date End Date Unknown, Provider, PCP - General 08/08/16 02/20/19 documented as of this encounter
--- OUTSIDE RECORDS SUMMARY | 2024-06-27 15:13 | XMS_ITS | Encounter Summary ---
Author Organization [facility] Address [address] [place] [address] Care Team Providers Care Transportation Maintenance Specialist Name Role Phone April Cummins ELEPHANT TAMER Primary Care Provider [phone] Encounter Details Date Type Department Care Team (Late st Contact Info) Description 06/10/2019 Historical Results Only [facility] - Main [address] [id number] Susan Elise, [place] [address] [place] [phone] Social History Tobacco Use Types Packs/Day Years [...] Procedure Name Priority Date/Time Associated Diagnosis Comments TROPONIN I Routine 06/10/2019 12:39 EDT CK Routine 06/10/2019 12:39 EDT COMPREHENSIVE METABOLIC PANEL (CMP) Routine 06/10/2019 12:39 EDT documented in this encounter Results * CK (06/10/2019 12:39 EDT) Pathologist [facility] CPK - [facility] 64 30 - 135 U/L 06/10/2019 14:09 [facility] 06/10/2019 12:3 9 EDT 06/10/2019 12:39 EDT Narrative [facility] - 06/10/2019 14:09 EDT Does PT Have a Latex Allergy? NO Susan Elise ND CHEMISTRY & BLOOD GA S ORDERABLES [facility] * (ABNORMAL) COMPREHENSIVE METABOLIC PANEL (CMP) (06/10/2019 12:39 EDT) [facility] Albumin % 4.4 3.4 - 4.9 g/dL 06/10/2019 14:09 [facility] ALKALINE PHOSPHATASE - [facility] 64 38 - 126 U/L 06/10/2019 14:09 [facility] BILIRUBIN TOTAL 0.8 0.2 - 1.3 mg/dL 06/10/2019 14:09 [facility] BUN - [facility] 12 10 - 26 mg/dL 06/10/2019 14:09 [facility] CALCIUM - [facility] 9.7 8.5 - 10.5 mg/dL 06/10/2019 14:09 [facility] Chloride 94(L) 96 - 110 mmol/L 06/10/2019 14:09 [facility] CO2 Total 29 22 - 32 mEq/L 06/10/2019 14:09 [facility] CREATININE 0.71 0.52 - 1.04 mg/dL 06/10/2019 14:09 [facility] eGFR >60 06/10/2019 14:09 [facility] Comment: Chronic renal impairment is defined as GFR <60 Multiply result by 1.210 for patients. eGFR calculated using the IDMS-traceable MDRD Study Equation. ??(effective 09/28/2014) Anion Gap 9 0 - 18 06/10/2019 14:09 [facility] GLUCOSE - [facility] 125(H) 70 - 100 mg/dL 06/10/2019 14:09 EDT [facility] Potassium 4.0 3.5 - 5.0 mEq/L 06/10/2019 14:09 [facility] Sodium 132(L) 136 - 145 mEq/L 06/10/2019 14:[facility] TOTAL PROTEIN - [facility] 6.8 6.2 - 8.2 gm/dL 06/10/2019 14:09 EDT [facility] SGOT/AST - [facility] 29 14 - 36 U/L 06/10/2019 14:09 [facility] SGPT/ALT - [facility] 28 9 - 52 U/L 9 14:09 [facility] 06/10/2019 12:3 9 EDT 06/10/2019 12:39 EDT [facility] - 06/10/2019 14:09 EDT Does PT Have a Latex Allergy? NO Susan Elise ND CHEMISTRY & BLOOD GA S ORDERABLES [facility] * TROPONIN I (06/10/2019 12:39 EDT) Troponin I (ng/mL) <0.034 0.000 - 0.034 ng/mL 06/10/2019 14:19 EDT [facility] Comment: Interpretation comments: ??Cutoff for a positive troponin result is set at the 99th percentile of the upper reference limit. ??Elevated troponin must always be interpreted in the context of the clinical presentation. ?Serial troponin testing 3-6 hr from baseline is favored over relying on a single troponin level. ?? The results of this assay can be falsely lowered due to the consumption of Biotin. 06/10/2019 12:3 9 EDT 06/10/2019 12:39 EDT Narrative [facility] - 06/10/2019 14:19 EDT Does PT Have a Latex Allergy? NO Susan Elise ND CHEMISTRY & BLOOD GA S ORDERABLES [facility] documented in this encounter Visit Diagnoses Not on filedocumented in this encounter Care Teams Transportation Maintenance Specialist Relationship Specialty Start Date End Date April Cummins, KEATON [address] [place] [phone] PCP - General 02/21/19 documented as of this encounter
--- OUTSIDE RECORDS SUMMARY | 2024-06-27 15:13 | XMS_ITS | Encounter Summary ---
Author Organization [facility] Address [address] [place] [address] Care Team Providers Care Elementary Spanish Teacher Name Role Phone April Cummins TITLE INSURANCE EXAMINER Primary Care Provider [phone] Encounter Details Date Type Department Care Team (Late st Contact Info) Description 10/12/2022 Lab Requisition [facility] Pathology & Laboratory Medicine - [facility] [address] [place] [address] Outr Resulting Lab, Provider Social History Tobacco [...] Date/Time Associated Diagnosis Comments T3 FREE Routine 10/12/2022 14:57 EST documented in this encounter Results * T3 FREE (10/12/2022 14:57 EST) T3, Free 3.9 2.8 - 5.3 pg/mL 10/12/2022 22:40 EST [facility] Blood VENOUS BLOOD / Unknown 10/12/2022 14:57 EST 10/12/2022 21:25 EST Provider Outr Resulting Lab CHEMISTRY & BLOOD GAS ORDERABLES [facility] [address] [place] [address] documented in this encounter Visit Diagnoses Not on filedocumented in this encounter Care Teams Elementary Spanish Teacher Relationship Specialty Start Date End Date April Cummins, KEATON [address] [place] [phone] PCP - General 02/21/19 documented as of this encounter
--- OUTSIDE RECORDS SUMMARY | 2024-06-27 15:13 | XMS_ITS | Encounter Summary ---
Author Organization [facility] Address [address] [place] [address] Care Team Providers Care Information Resources Manager Name Role Phone April Cummins Tanvir RECYCLING SORTER Primary Care Provider [phone] Encounter Details Date Type Department Care Team (Late st Contact Info) Description 05/17/2023 Lab Requisition [facility] Pathology & Laboratory Medicine - [facility] [address] [place] [address] Outr Resulting Lab, Provider Social History Tobacco [...] Procedure Name Priority Date/Time Associated Diagnosis Comments HOLD SST Today 05/17/2023 17:20 EDT THYROPEROXIDASE ANTIBODY Today 05/17/2023 17:20 EDT YARELIS-TAN PANEL Today 05/17/2023 17 :20 EDT ANTI THYROGLOBULIN Today 05/17/2023 17 :20 EDT T3 FREE Today 05/17/2023 17:20 EDT documented in this encounter Results * HOLD SST (05/17/2023 17:20 EDT) Hold Hold 05/18/2023 20:02 EDT [facility] Blood VENOUS BLOOD / Unknown 05/17/2023 17:20 EDT 05/18/2023 18:59 EDT Provider Outr Resulting Lab LAB INFO SER VICE AND SUPPORT & PHONE RESULT Performing Organization Address City/[facility]/ZIP Co de Phone Number [facility] [address] [place] [phone] * T3 FREE (05/17/2023 17:20 EDT) Pathologist [facility] T3, Free 3.0 2.8 - 5.3 pg/mL 05/18/2023 19:34 EDT [facility] Blood VENOUS BLOOD / Unknown 05/17/2023 17:20 EDT 05/18/2023 18:49 EDT Provider Outr Resulting Lab CHEMISTRY & BLOOD GAS ORDERABLES Performing Organization Address City/[facility]/ZIP Co de Phone Number [facility] [address] [place] [phone] * (ABNORMAL) THYROPEROXIDASE ANTIBODY (05/17/2023 17:20 EDT) Pathologist [facility] Thyroperoxidase Ab 730(H) <=60 U/mL 2022 20:21 EDT [facility] Blood VENOUS BLOOD / Unknown 05/17/2023 17:20 EDT 05/18/2023 18:49 EDT Provider Outr Resulting Lab CHEMISTRY & BLOOD GAS ORDERABLES Performing Organization Address City/[facility]/ZIP Co de Phone Number [facility] [address] [place] [address] * (ABNORMAL) ANTI THYROGLOBULIN (05/17/2023 17:20 EDT) Anti-Thyroglob ulin 164(H) <=60 U/mL 05/18/2023 20:21 EDT [facility] Blood VENOUS BLOOD / Unknown 05/17/2023 17:20 EDT 05/18/2023 18:49 EDT Provider Outr Resulting Lab CHEMISTRY & BLOOD GAS ORDERABLES Performing Organization Address City/[facility] Co de Phone Number [facility] [address] [place] [address] * (ABNORMAL) YARELIS-TAN PANEL (05/17/2023 17:20 EDT) EBV VCA IgM, Antibody Negative Negative 05/21/2023 12:21 EDT [facility] Comment:Absence of detectabl e VCA IgM antibodies. EBV VCA IgG, Antibody Positive(A) Negative 05/21/2023 12:21 EDT [facility] Comment:Presence of detectab le VCA IgG antibodies. EBNA IgG Antibody Positive(A) Negative 2022 12:21 EDT [facility] Comment:Presence of detectab le EBNA IgG antibodies. EBV Interpretation Results would indicate past infection with Yarelis-Tan virus 05/21/2023 12:21 EDT [facility] Blood VENOUS BLOOD / Unknown 05/17/2023 17:20 EDT 05/18/2023 18:49 EDT Provider Outr Resulting Lab IMMUNOLOGY A ND SEROLOGY ORDERABLES Performing Organization Address [facility]/ZIP Co de Phone Number [facility] [address] [place] [address] documented in this encounter Visit Diagnoses Not on filedocumented in this encounter Care Teams Information Resources Manager Relationship Specialty Start Date End Date April Cummins NP [address] [place] [address] PCP - General 02/21/19 documented as of this encounter
--- OUTSIDE RECORDS SUMMARY | 2024-06-27 15:13 | XMS_ITS | Encounter Summary ---
Author Organization [facility] [place] [address] Care Team Providers Care Soldering Technician Name Role Phone April Cummins KALE Primary Care Provider + [phone] Reason for Visit * Auth/Cert Specialty Diagnoses / Procedures Referred By Rafael mart Referred To Contact Diagnoses PMB, abnormal US of the endometrium Procedures PRO HYSTEROSCOPY, W/ENDO BX HYSTEROSCOPY, SURG W/ENDOMETRIAL SAMPLING, POLYPECTOMY (WRVU 4.74) MODIFIER-MYOSURE Judd Ryan MD [facility] [address] [facility] Referral ID Status Reason Start Date Expiration Date Visits Re quested Visits Authorized [id number] 1 1 Encounter Details Date Type Department Care Team (Late st Contact Info) Description 08/30/2022 11:44 AM EDT - 08/30/2022 1:04 PM EDT Surgery Operating Room [facility] [place] [address] Judd Ryan MD [facility] [address] HYSTEROSCOPY, SURG W/ENDOMETRIAL SAMPLING, POLYPECTOMY (WRVU 4.17) Social History Tobacco Use Types Packs/Day Years [...] Sign Reading Time Taken Comments Blood Pressure 124/65 08/30/2022 1:00 PM EDT Pulse 56 08/30/2022 1:00 PM EDT Temperature 36.5 ??C (97.7 ??F) 08/30/2022 12:56 PM E DT Respiratory Rate 16 08/30/2022 1:00 PM EDT Oxygen Saturation 99% 08/30/2022 1:00 PM EDT Inhaled Oxygen Concentration - - Weight 53.5 kg (118 lb) 08/30/2022 10:00 AM EDT Height 165.1 cm (5' 5) 08/30/2022 10:00 AM EDT Body Mass Index 19.64 08/30/2022 10:00 AM EDT documented in this encounter Discharge Instructions * Discharge Instructions* Yasmine Meyer RN - 08/30/2022 1:38 PM EDT BECAUSE YOU RECEIVED A MEDICATION CALLED TORADOL IN SURGERY, DO NOT TAKE ANY IBUPROFEN(ADVIL/MOTRIN) OR NAPROXEN(ALEVE) UNTIL AFTER 6:30 PM TONIGHT. * Patient Instructions* Judd Ryan MD - 08/30/2022 1:18 PM EDT PAIN: This procedure is usually well-tolerated. Expect some kajl-gw-pupahyrq cramping for the next 1-2 days. If you were given a prescription for pain medication you should use it as needed. If you were not prescribed pain medication, you can take ibuprofen or naproxen. FOLLOW UP APPOINTMENTS: Your follow up appointment has already been scheduled. If you are uncertain as to the date or time,please call the office at [phone]. MEDICATIONS: Take your medicine at the time your doctor ordered. Keep a list of your medicines, vitamins, and herbal supplement you take. Keep this list with you atall times. Show it to your caregiver at every visit. Keep the list up-to-date. If any new medications are prescribed as a result of this surgery, please feel free to ask for written information on their side effects, interactions, foods to avoid and when to stop taking it. Information will be provided by the pharmacy that fills the prescription. Only take meie-mht-nqhjfgm or prescription medicine for pain, discomfort or fever as directed by your caregiver. Consult your doctor, nurse or pharmacist with any questions. NEW MEDICATIONS AT DISCHARGE: []None []Given prescriptions in office preoperatively OR: Medication Dose/Route/ Frequency Prescription given? Reason for medication Medscape monograph discussed []Yes []No []Yes []No []Yes []No []Yes []No DIET: Resume your normal diet as tolerated. Be sure to drink plenty of fluids. Eat whole grain cereals, fruits and fruit juices to combat constipation sometimes cause by pain medication. ACTIVITY: You can anticipate being able to return to full activity within two to three days. Do not put anything into the vagina (no sex, no tampons, no douching) until bleeding and discharge have stopped for one week. Expect light vaginal bleeding for the next 1-2 days. POST ANESTHESIA/SEDATION: You have received medication for sedation and comfort during your procedure. Because these have notcompletely left your system, please observe the following precautions: Plan to relax for the next several hours. DO NOT drive or operate machinery until the day after your procedure, longer as recommended by yoursurgeon. Avoid alcohol for the next 24 hours. Do not make any important personal or business decisions today. CALL YOUR SURGEON OR SEEK MEDICAL CARE IF: You develop an oral temperature over 100.4 degrees F. You are unable to drink/keep fluids down due to nausea. You have severe abdominal pain or cramping. You develop heavy vaginal bleeding - using more than 1 pad per hour. You notice foul smelling vaginal discharge. SMOKING CESSATION INFORMATION: [place] QUITLINE: [place] QUITLINE: www.quitnet.com If you smoke, stop now! MAKE SURE YOU: Understand these instructions. Will seek medical care if you are feeling poor, or get worse. Will call the [facility] with any questions or concerns at : [phone]. Nursing information only: Original document to medical records Copy given to patient at discharge Belongings/Valuables returned to patient All questions answered IV and hospital equipment removed from patient as appropriate The above information has been presented or demonstrated. I/we have had the opportunity to ask questions. I/we fully understand the instructions given. I/we have received a copy of this form. documented in this encounter Medications at Time of Discharge Medication Sig Dispensed Refills Start Date End Date celecoxib (CeleBREX) 200 mg Capsule Take 200 mg by mouth daily as needed. 08/15/2022 baclofen (Lioresal) 10 mg Tablet TAKE ONE TABLET BY MOUTH THREE TIMES A DAY NEEDED FOR MUSCLE PAIN 06/28/2022 Lidoderm 5 % Adhesive Patch, Medicated APPLY ONE PATCH DIRECTED DAILY (12 HOURS ON; 12 HORUS OFF) 06/15/2022 prednisoLONE acetate (Pred-Forte) 1 % Drops, Suspension INSTILL ONE DROP IN THE LEFT EYE FOUR TIMES A DAY FOR 7 DAYS 05/18/2022 FLUoxetine (PROzac) 20 mg Capsule Take 60 mg by mouth every morning. 05/30/2022 FOAM RUBBER FABRICATOR Thyroid 30 mg Tablet Take 30 mg by mouth every morning. 07/09/2022 pantoprazole EC (Protonix) 20 mg Tablet, Delayed Release (E.C.) TAKE 1 TABLET (20MG) BY MOUTH DAILY 06/28/2022 thyroid ([place]) 30 mg Tablet Take 30 mg by mouth daily. gabapentin (Neurontin) 100 mg Capsule 100 mg AM, 200 mg HS 90 capsule 12 01/31/2022 cyclobenzaprine (Flexeril) 5 mg Tablet Take 1 tablet by mouth nightly. 30 tablet 01/31/2022 amino acids/protein supplement (AMINO ACIDS ORAL) Take by mouth daily. HYDROCHLORIC ACID, BULK, MISC by Misc.(Non-Drug; Combo Route) route. Vitamin B Complex-Vitamin C-Folic Acid (Nephrocap) 1 mg Capsule Take 1 capsule by mouth daily. nutritional supplement/fiber (PEPTIDE 1.0 ORAL) Take by mouth. UNABLE TO FIND bio botanical enzymes,digestive (DIGESTIVE ENZYMES ORAL) Take by mouth. GLYCERIN, ADULT, RECT Place rectally. 06/28/2021 fluticasone propionate (Flonase) 50 mcg/actuation [place], Suspension 1 spray by Each Nare route daily. NEEDED 05/03/2021 EPINEPHrine 0.3 mg/0.3 mL Auto-Injector Inject 0.3 mLs into the muscle once as needed (allergic reaction ( tight throat, difficulty breathing, lightheaded)). 1 kit 3 07/27/2021 ferrous bis-glycinate chelate (iron bisglycin chelate, bulk,) Powder by [facility]Non-Drug; Combo Route) route. Thyroid, Pork, ([place] Thyroid) 15 mg Tablet Take 45 mg by mouth daily. 30mg and 15mg castor oil Oil [place] Oil, See Instructions, Apply topically, 0 Refill(s) 01/18/2020 pyridoxine, vitamin B6, (B-6) 100 mg Tablet Daily, 0 Refill(s) 01/18/2020 Ciclesonide (OMNARIS) 50 mcg [place], Non-Aerosol INSTILL TWO SPRAYS IN EACH NOSTRIL TWICE A DAY 12.5 g 09/08/2019 Aykvenvn1-Matrwl0-Hbrs p therm. (VISBIOME) 112.5 billion cell CapsuleIndications:Sma ll intestinal bacterial overgrowth,Irritable bowel syndrome with diarrhea Take 3 capsules by mouth daily. 90 capsule 3 04/29/2019 b complex vitamins Capsule Take 1 capsule by mouth daily. With folic acid B-1,2,3,5,12 Biotin acetylcysteine (NAC ORAL) Take by mouth daily. documented as of this encounter Progress Notes * Yasmine Meyer RN - 08/30/2022 2:40 PM EDT Patient is pleasant, able to make needs known. Tolerating po fluids without difficulties.Patient denies pain. Elsi hugger and warm blankets for reports of patient being cold. And provided warm tea with +effect. Patient ambulated to for successful void. Scant bloody discharge noted to ann pad. Fresh ann pad in place. Discharge instructions reviewed with patient and then in person with her friend, Amina. All questions addressed. Handout copy of these instructions provided at discharge. Patient verbally confirms she feels safe and ready for d/c home. Patient escorted out to private vehicle for d/c home via wheel chair, safely. documented in this encounter H&P Notes * Judd Ryan MD - 08/30/2022 11:40 AM EDT Patient Name: Kalyn Burgos Patient Age: 61 y.o. Birthdate: 1960 Admit date: 08/30/2022 Attending Physician: Judd Ryan MD This is a 61-year-old woman with a recent history of having a renal ultrasound for left flank pain that had an incidental finding of a thickened endometrium with fluid in the endometrial canal. She is being brought in today for hysteroscopy D&C with possible polypectomy if 1 is present. Initially she denied postmenopausal bleeding however it sounds that she may have had some rare spotting over the last year. Surgical consent has been signed. Patient denies any interval medical problems since she was last seen. Plan is to proceed as scheduled. Ms. Velasquez.today 11:48 AM documented in this encounter Miscellaneous Notes * Op Note - Judd Ryan MD - 08/30/2022 12:34 PM EDT [facility] [place] [address] Patient Name: Kalyn Burgos : [id number] MR#: [id number] Case Date: 08/30/2022 Case Scheduled Time: 1144 Surgeon: Surgeon(s) and Role: * Judd Ryan MD - Primary Preoperative diagnosis: PMB, abnormal US of the endometrium Postoperative diagnosis: PMB, abnormal US of the endometrium Procedure(s) (LRB): HYSTEROSCOPY, SURG W/ENDOMETRIAL SAMPLING, POLYPECTOMY (WRVU 4.74) (N/A) MODIFIER-MYOSURE (N/A) Anesthesia: General Estimated Blood Loss: 1 mL Urine output: 200 mL IV Fluids: 600 mL crystalloid Specimens removed during surgery: Order Name Source Comment Collection Info Order Time SPECIMEN TO PATHOLOGY PMB, abnormal US of the endometrium Endometrial curettings curetting 08/30/2022 12:56 PM Time specimen removed from patient: 12:45 PM Number of tissue samples (in container) Multiple SPECIMEN TO PATHOLOGY PMB, abnormal US of the endometrium Endometrial & endocervical polyps curetting 08/30/2022 12:56 PM Time specimen removed from patient: 12:42 PM Number of tissue samples (in container) Multiple Drains: * No LDAs found * Surgical Closure: n/a Disposition: awakened from anesthesia, extubated and taken to the recovery room in a stable condition, having suffered no apparent untoward event. Condition: doing well without problems Complications: none (Please see the Surgical Encounter Summary for any Implant and Specimen details pertinent to this patient.) Findings: Uterus sounded to 7.5 cm. There was a small endocervical polyp from the posterior endocervix. There is a moderate left fundal polyp in the cavity. The background endometrium appeared atrophic. Both tubal ostia were visualized. Fluid deficit was 115 mL. Surgical Indications: This is a 61-year-old woman with an incidental finding of a thickened endometrium with fluid in the cavity on an ultrasound done to evaluate her kidney and bladder. Procedure Description: The patient was taken to the operating room. After the successful induction of general anesthesia she was placed in the dorsolithotomy position. Her perineum and vagina were prepped and draped in the usual sterile fashion for surgery. A timeout was taken to identify the patient and confirm the proposed procedure. All in the operating room were in agreement. The bladder was drained with a straight catheter. A speculum was placed in the vagina. The cervix was grasped with tenaculum. The uterus sounded to 7.5 cm. The cervix was then gently dilated to #17 Tay dilator. Thehysteroscope was placed in the cervical canal and the uterine cavity was distended with warm normalsaline solution. Inspection of the cavity revealed the above-mentioned findings. The MyoSure devicewas then used to resect the 2 polyps completely. The hysteroscope was then removed. Sharp curettagewas performed. The curettings were sent labeled endometrial curettings. The MyoSure sample was sentlabeled endometrial and endocervical polyp. A signout was then carried out to review the procedure, specimens, and fluids. All in the operating room were in agreement. The sponge instrument and needle count was correct. Patient was then awakened in the operating room and transferred to the recoveryroom in stable condition. Infection Bundle used? N/A Judd Ryan MD 08/30/2022 1:12 PM documented in this encounter Plan of Treatment Scheduled Procedures Name Priority Associated Diagnoses Date/Ti me COLONOSCOPY, DIAGNOSTIC (WRV U 3.26) Encounter for colorectal cancer screening documented as of this encounter Procedures Procedure Name Priority Date/Time Associated Diagnosis Comments SPECIMEN TO PATHOLOGY Routine 08/30/2022 12:56 PM EDT SPECIMEN TO PATHOLOGY Routine 08/30/2022 12:56 PM EDT SURGICAL PATHOLOGY REPORT Routine 08/30/2022 12:42 PM EDT MODIFIER-MYOSURE 08/30/2022 12:1 3 PM EDT Abnormal ultrasound of endometrium PMB (postmenopausal bleeding) Hysteroscopy, W/Endo Bx (89963) 08/30/2022 12:13 PM EDT Abnormal ultrasound of endometrium PMB (postmenopausal bleeding) documented in this encounter Results * Specimen to Pathology (08/30/2022 12:56 PM EDT) AP Specimen 08/30/2022 12:5 6 PM EDT 08/30/2022 12:[address] [facility] - 08/30/2022 12:56 PM EDT Specimen requisition ordered. ??Separate Pathology report to follow Judd Ryan MD PATHOLOGY/CYTOLOGY ORDERABLES [facility] [place] [address] * Specimen to Pathology (08/30/2022 12:56 PM EDT) AP Specimen 08/30/2022 12:5 6 PM EDT 08/30/2022 12:[address] [facility] - 08/30/2022 12:56 PM EDT Specimen requisition ordered. ??Separate Pathology report to follow Judd Ryan MD PATHOLOGY/CYTOLOGY ORDERABLES [facility] [place] [address] * Surgical Pathology Report (08/30/2022 12:42 PM EDT) FINAL DIAGNOSIS (AP) [id number] ? Location: [facility]; [facility]; A The signing pathologist has (i) examined the relevant preparation(s) for the specimen(s) and (ii) rendered or confirmed the diagnosis(es). . ?Surgical Pathology DIAGNOSIS A - Endometrium, curetting: - Superficial strips of benign endometrium with estrogen effects. - ??Fragments of benign ??squamous and endocervical epithelium. B - Endometrial & endocervical polyps, curetting: - Endometrial polyp. - Small fragment of benign endocervical mucosa. Electronically signed by: ?Joan Mcclain MD Verified: ??09/05/2022 7:46 ?? Pathologist Performed at: ??-[facility] [place], [place], [place] ADDITIONAL STUDIES Immunohistochemistry Studies: Formalin-fixed, paraffin-embedded tissue sections are studied using the polymer technique with appropriate positive and negative controls. ?These IHC studies provide the pathologist with adjunctive diagnostic information. Antibody specificity has been verified by testing antibodies on a series of in-house tissues with known immunohistochemical performance characteristics. The clinical interpretation of any antibody positive staining or its absence is evaluated within the context of clinical presentation, morphology, histopathological criteria and other diagnostic tests. Block ? Antibody ?Result (Positive/Negative) A1 ? P53 ?Wild type expression pattern SPECIMEN(S) SUBMITTED A - Endometrial curettings, curetting (Multiple) B - Endometrial & endocervical polyps, curetting (Multiple) CLINICAL INFORMATION PMB, abnormal US of endometrium. SPECIMEN PROCESSING A - Labeled/Fixative: Endometrial curettings, formalin. Quantity/Size: ??Fragments, 1.3 x 0.7 x 0.3 cm. Tissue Description: Aggregate of shaikh-red soft tissue fragments. Sections/Processing: Submitted en toto ??in 1 cassette labeled A1. B - Labeled/Fixative: Endometrial and endocervical polyps, formalin. Quantity/Size: ??Fragments, 1.6 x 1.0 x 0.3 cm. Tissue Description: Aggregate of shaikh-pink soft tissue fragments admixed with mucus. Sections/Processing: Submitted en toto ??in 1 cassette labeled B1. ??jnr 09/05/2022 7:[address] [facility] ENDOMETRIAL STRUCTURE / Unknown 08/30/2022 12:42 PM EDT 08/30/2022 12:42 PM EDT ENDOMETRIAL STRUCTURE / Unknown 08/30/2022 12:42 PM EDT 08/30/2022 12:42 PM EDT Judd Ryan MD PATHOLOGY/CYTOLOGY ORDERABLES Performing Organization Address City/State/[facility] Co de Phone Number [facility] [place] [address] documented in this encounter Visit Diagnoses Diagnosis Abnormal ultrasound of endometrium Nonspecific (abnormal) findings on radiological and other examination of genitourinary organs Endometrial polyp Polyp of corpus uteri Abnormal ultrasound of endometrium Nonspecific (abnormal) findings on radiological and other examination of genitourinary organs PMB (postmenopausal bleeding) Postmenopausal bleeding documented in this encounter Active and Recently Administered Medications Times are shown in EDT. Continuous Medication Order 08/28/2022 08/29/2022 08/30/2022 lactated ringers infusion (CANCELED) 1,000 mL, at 50 mL/hr, Intravenous, CONTINUOUS, Starting on Sun08/30/22 at 1045, Until Sun08/30/22 at 1441, Day of Surgery (Day of Procedure) 1214 (New Bag - Prov ider: Kg Sharma CRNA) documented in this encounter Care Teams Soldering Technician Relationship Specialty Start Date End Date April Cummins, AUTO INSPECTOR [address] [place] [address] PCP - General Internal Medicine 01/13/21 documented as of this encounter
--- OUTSIDE RECORDS SUMMARY | 2024-06-27 15:13 | XMS_ITS | Encounter Summary ---
Author Organization [facility] [place] [address] Care Team Providers Care Tests Superintendent Name Role Phone April Cummins APRN Primary Care Provider [phone] Reason for Referral * Consultation (Routine) - Closed Specialty Diagnoses / Procedures Referred By Rafael mart Referred To Contact Gastroenterology Diagnoses Encounter for screening for malignant neoplasm of colon April Cummins APRN [address] [place] [address] [facility] [address] [place] [address] Referral ID Status Reason Start Date Expiration Date V isits Requested Visits Authorized [id number] Closed Consult, Test & Treat PCP Updated and/or Approved 01/10/2023 01/10/2024 6 6 Encounter Details Date Type Department Care Team (Latest Contact Info) Description 01/10/2023 Transcribe Orders eDH Incoming Referrals [phone] April Cummins APRN [address] [place], [place] [id number] Encounter for screening for malignant neoplasm of colon Social History Tobacco Use Types Packs/Day Years [...] as of this encounter Plan of Treatment Scheduled Procedures Name Priority Associated Diagnoses Date/Ti me COLONOSCOPY, DIAGNOSTIC (WRV U 3.26) Encounter for colorectal cancer screening Scheduled Referrals Name Type Priority Associated Diagnoses Order Schedule Referral to Gastroenterology Outpatient Referral Routine Encounter for screening for malignant neoplasm of colon Ordered: 01/10/2023 documented as of this encounter Visit Diagnoses Diagnosis Encounter for screening for malignant neoplasm of colon Special screening for malignant neoplasms, colon documented in this encounter Care Teams Tests Superintendent Relationship Specialty Start Date End Date April Cummins, PRICING/SIGNAGE TEAM MEMBER [address] [place] [address] PCP - General Internal Medicine 01/13/21 documented as of this encounter
--- OUTSIDE RECORDS SUMMARY | 2024-06-27 15:13 | XMS_ITS | Encounter Summary ---
[place] [address] Care Team Providers Care Alkylation Operator Name Role Phone April Cummins APRN Primary Care Provider [phone] Reason for Referral * Consultation (Routine) - Closed Specialty Diagnoses / Procedures Referred By Rafael mart Referred To Contact Obstetrics and Gynecology Diagnoses Polyp, corpus uteri April Cummins APRN [address] [place] [address] [facility] [employer] Restorer [address] [address] Referral ID Status Reason Start Date Expiration Date V isits Requested Visits Authorized [id number] Closed Consult, Test & Treat PCP Updated and/or Approved 05/14/2022 05/14/2023 1 1 Encounter Details Date Type Department Care Team (Latest Contact Info) Description 05/14/2022 Transcribe Orders eDH Incoming Referrals [phone] April Cummins APRN [address] [place], [place] [id number] Polyp, corpus uteri Social History Tobacco Use Types Packs/Day Years [...] Scheduled Referrals Name Type Priority Associated Diagnoses Orde r Schedule Referral to Ob-Hospice Clinical Marketer Outpatient Referral Routine Polyp, corpus uteri Ordered: 05/14/2022 documented as of this encounter Visit Diagnoses Diagnosis Polyp, corpus uteri Polyp of corpus uteri documented in this encounter Care Teams Alkylation Operator Relationship Specialty Start Date End Date April Cummins, PSYCHIATRIC AIDE INSTRUCTOR [address] [place] [address] PCP - General Internal Medicine 01/13/21 documented as of this encounter
--- OUTSIDE RECORDS SUMMARY | 2024-06-27 15:13 | XMS_ITS | Data Portability ---
Author Organization [place] - [facility], MAIN [place] [address] Assessment Encounter Date Assessment Date Assessment LastModified by Organization Details LastModified Time 01/20/2016 01/20/2016 50% of this visit was spent Face to Face counseling with patient or patients parent/gaangeladian Not available 01/22/2016 18:05:34 04/27/2016 04/27/2016 I spent a total of 40 minutes face to face time with this patient and at least 25 minutes of that time was spent in counseling and coordination of care with that patient as described in the progress note and /or: pt and family education possible causes of above diagnosis diagnostic results and impressions Patient will report and new or worsening symptoms. Patient presented for follow up of labs. Discussed plan with patient, who expressed understanding. Follow up as noted below. Patient with fatigue and malaise . Advised patient to eat properly, get adequate sleep and attempt to exercise. I recommend no further testing. Patient to follow up as directed. Not available 04/30/2016 20:34:02 07/20/2016 07/20/2016 I spent a total of 60 minutes face to face time with this patient and 35 minutes of that time was spent in counseling and coordination of care with that patient as described in the progress note and /or: recommended diagnostic studies instructions for treatment and follow-up other education Patient presented for follow up of: . Studies ordered as below. Discussed plan with patient, who expressed understanding. Follow up as noted below. Not available 07/24/2016 21:54:22 07/27/2016 07/27/2016 Patient presented for follow up of labs. Studies ordered as below. Discussed plan with patient, who expressed understanding. Follow up as noted below. Patient with fatigue and malaise . Advised patient to eat properly, get adequate sleep and attempt to exercise. I recommend testing as per orders below to evaluate for jaundice. Patient to follow up as directed. Return to the office for diarrhea lasting more than 1 week or blood in stool. Not available 08/18/2016 09:46:33 Plan of Treatment Reminders Order Date Submit Date Provider Last Modified By Organization Details Last Modified Time Details Appointments None recorded. Lab CBC w/ auto diff 2015 016 [facility] (Registration ), [address] [place] [address] , [place], [address], 6 04:39:21 vitamin B12 + folate, serum or blood 2015 016 [facility] (Registration ), [address] [place] [address] [place], [address], 6 04:39:21 calcium, blood 2015 016 [facility] (Registration ), [address] [place] [address] [place], [address], 6 04:39:21 CMP, serum or plasma 2015 016 [facility] (Registration ), [address] [place] [address] [place], [address], 6 04:39:21 magnesium, blood 2015 016 [facility] (Registration ), [address] [place] [address] [place], [address], 6 04:39:21 vitamin D, 25-hydroxy, total, serum 2015 016 [facility] (Registration ), [address] [place] [address] [place], [address], 6 04:39:21 lipids, total, serum 2015 016 [facility] (Registration ), [address] [place] [address] [place], [address], 7 05:01:04 apolipoprot ein A1 (apo A-1), serum or plasma 2015 016 [facility] (Registration ), [address] [place] [address] [place], [address], 7 05:01:05 apolipoprot ein B (apo B), serum 2015 016 [facility] (Registration ), [address] [place] [address] [place], [address], 7 05:01:04 apolipoprot ein B/apolipopr otein A1 ratio 2015 016 [facility] (Registration ), [address] [place] [address] [place], [address], 7 05:01:04 uric acid, serum or plasma 2015 016 [facility] (Registration ), [address] [place] [address] [place], [address], 7 05:01:03 CBC w/ diff 2015 016 [facility] (Registration ), [address] [place] [address] [place], [address], 7 05:01:04 iron + TIBC + ferritin, serum 2015 016 [facility] (Registration ), [address] [place] [address] [place], [address], 7 05:01:05 mma (methylmalo jayne acid), serum 2015 016 [facility] (Registration ), [address] [place] [address] [place], [address], 7 05:01:04 CMP, serum or plasma 2015 016 [facility] (Registration ), [address] [place] [address] [place], [address], 7 05:01:05 magnesium, blood 2015 016 [facility] (Registration ), [address] [place] [address] [place], [address], 7 05:01:04 reticulocyt e panel, blood 2015 016 [facility], [address], [place], [address], 7 05:01:04 peripheral blood smear 2015 016 [facility], [address], [place], [address], 7 05:01:04 bilirubin, indirect + conjugated, serum 2015 016 [facility], [address], [place], [address], 7 05:01:03 Referral None recorded. Procedures None recorded. Surgeries None recorded. Imaging None recorded. Medication Orders None recorded. Patient TargetsNo targets recorded. Patient Instructions Encounter Date Encounter Id Patient Instructions Last Modified By Organization Details Last Modified Time 01/20/2016 [id number] GI Effects Stool analysis: you will need to pay this lab upfront for costs. 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: All Days EXCEPT TUESDAYS fr 10:30-4:00 Not available 01/24/2016 12:21:16 04/27/2016 [id number] iron deficiency anemia: care instructions ABERDEEN Not available 10/29/2016 05:02:35 Chiropractors: Sheree Collier and Laila Maldonado for some physical therapy for Right arm and shoulder D-mulsion- 2drops/day iron- Ferrasorb 1 cap 2xday Therbiotic 1/2 tsp 2xday for 3 months- because your lactobacillus didnt even grow on stool analysis Your CDSA showed pathogenic: Bacillus Cereus: to treat Tumeric is effective as well as Berberine I think we will try tumeric bc it will cross over to treat inflammation and stomach pain as well. We will meet again to go over other issues and concerns we didnt have a chance to discuss Not available 04/30/2016 20:33:38 07/20/2016 [id number] anemia: care instructions ARTURO Not available 07/21/2016 18:25:09 intestinal complex- 1 scoop/day Not available 07/24/2016 21:54:38 Reason for Referral None Reported. Procedures Surgical History Date Name Laterality Status Provider Name and Address Organization Details Recorded Time 12/28/19 16 completed Connie Gayle [address], [address], [facility] 01/20/2016 13:22:02 06/26/20 07 Neurosurgery completed Connie Gayle [address], [address], [facility] 01/20/2016 13:23:25 06/26/20 07 Orthopedic Surgery completed Connie Gayle[address], [address], [facility] 01/20/2016 13:23:25 10/26/20 06 Orthopedic Surgery completed Connie Gayle [address], [address], [facility] 01/20/2016 13:23:25 10/03/20 06 Date of Last Pap Smear completed Connie Gayle ND [address] [place] [address], [address], [facility] 01/20/2016 13:22:02 08/26/19 95 Caesarean Section completed Connie Gayle [address], [address], [facility] 01/20/2016 13:23:25 07/27/19 78 Appendectomy completed Connie Gayle ND [address] [place] [address], [address], [facility] 01/20/2016 13:23:25 Imaging Results None recorded. Procedure Notes None recorded. Medical Equipment None Reported. Allergies Allergen ID Allergen Name Allergen Category Reaction Reaction Severity Criticality Documentation Date Start Date Code Code System Note Provider Name and Address Organization Details Recorded Time 161 whole wheat allergeni c extract food,medi cation arthralgi a (joint pain) diarrhea rash severe severe severe Not available 01/20/20161998 91715 9 RxNorm Connie Gayle, [place] [address], [facility] 6 13:23:58 Vitals Date Recorded Body weight Provider Name an d Address Organization Details Last Updated DateTime 07/27/2016 [address]331.16 g Connie Gayle , [address] 08/02/2016 19:56:19 Date Recorded Heart rate Respiratory rate Provider N emeli and Address Organization Details Last Updated DateTime 01/20/2016 56 /min 12 /min Connie Gayle, [place] [address], [facility] 01/20/2016 13:27:02 Social History Question Answer Notes LastModified by Organizat ion Details LastModified Time Tobacco Smoking Status Never Smoker Not Available [facility] 09/28/2020 03:41:49 What Is Your Level Of Alcohol Consumption? None [id number] Information not available 09/28/2020 Animal Exposure? No Informat ion not available 01/20/2016 Are You Blind Or Do You Have Difficulty Seeing? No [id number] Information not available 09/28/2020 What Is Your Level Of Caffeine Consumption? Occasional [id number] Information not available 09/28/2020 How Much Tobacco Do You Chew? None [id number] Information not available 09/28/2020 Are You Currently Employed? No [id number] Information not available 09/28/2020 Are You Deaf Or Do You Have Serious Difficulty Hearing? No [id number] Information not available 09/28/2020 What Type Of Diet Are You Following? GLUTENFREE [id number] Information not available 09/28/2020 Which Illicit Or Recreational Drugs Have You Used? 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 Yes [id number] Information no t available 09/28/2020 Frequent Air Travel No Information not available 01/20/2016 Hard Of Hearing Or Deaf In One Or Both Ears? No Information not available 01/20/2016 Legally Blind In One Or Both Eyes? No Information no t available 01/20/2016 Live Alone Or With Others? With Others Information not available 01/20/2016 Marital Status Informatio n not available 01/20/2016 How Many Children Do You Have? 1 [id number] Information not available 09/28/2020 Are There Any Occupational Health Risks Where You Work? 0 [id number] Information not available 09/28/2020 What Is Your Parents' Marital Status? [id number] Information not available 09/28/2020 Do You Use Protection During Sex? Always [id number] Information not available 09/28/2020 What Is Your Relationship Status? [id number] Information not available 09/28/2020 What Is The Name Of Your School? None [id number] Information not available 09/28/2020 Are You Sexually Active? No [id number] Information not available 09/28/2020 Number Of Sexual Partners 1 Information not available 01/20/2016 Do You Have Any Siblings? One Brother [id number] Information not available 09/28/2020 At What Age Did You Start Smoking Tobacco? 0 [id number] Information not available 09/28/2020 Are You Passively Exposed To Smoke? Yes Information no t available 01/20/2016 What Types Of Sporting Activities Do You Participate In? Yoga [id number] Information not available 09/28/2020 General Stress Level Low Information not available 01/20/2016 Supplements Magnesium, Probiotics Information not available 01/20/2016 How Many Years Have You Smoked Tobacco? 0 [id number] Information not available 09/28/2020 Sex: Unknown Functional Status Question Answer Note LastModified by Organizat ion Details LastModified Time Do you have difficulty walking or climbing stairs? No [id number] Information not available 09/28/2020 Do you have difficulty doing errands alone? No [id number] Information not available 09/28/2020 Are you able to care for yourself? Yes [id number] Information not available 09/28/2020 Do you have difficulty dressing or bathing? No [id number] Information not available 09/28/2020 What is your exercise level? Occasional [id number] Information not available 09/28/2020 Mental Status Question Answer Note LastModified by Organization D etails LastModified Time Do you have difficulty concentrating, remembering or making decisions? Yes [id number] Information no t available 09/28/2020 Family History Relationship Description Onset Age of this Age Resolved Age Notes Maternal Aunt Anxiety disorder 30 Maternal Grandmother Dementia 80 90 Father Depressive disorder 0 72 Mother Asthma 20 69 Mother Disorder of thyroid gland 32 69 Mother Chronic obstructive pulmonary disease 60 69 Mother Anxiety disorder 50 69 Medical History Condition Response Coronary Artery Disease N Other N Gout N Kidney Stones Y Blood Diseases N Hyperthyroidism N Breast Cancer N Blood Transfusion N Hypothyroidism N COPD N Depression N Lung Disease N Developmental or Behavioral Disorders N Defects or Inherited Disease N Breast Problem N Difficulty Swallowing N Anesthesia Complications N Meniere's disease N Anxiety Disorder N Muscle, Joint, or Bone Problems N Obesity N Vision or Eye Problems N Arthritis N Polyps N Infertility N Mental Disorder N Cancer N Varicosities N Stroke N Endometriosis N Bladder or Kidney Problems Y High Cholesterol N Liver Disease N Headaches Y Fibromyalgia N Kidney Disease N Allergies/Hayfever Y Heart Problems N Sleep problems/insomnia N Ear or Hearing Problems N Hospitalizations N Thyroid Problems N GI Problems N ADD/ADHD N Skin Problems N Eating Disorder N Anemia N MRSA exposure N Constipation N Mental Illness N Ovarian Cancer N Diabetes N Bedwetting N Seizures/Epilepsy N Tuberculosis N AIDS/HIV N Congestive Heart Failure (CHF) N Eczema Y Diverticulitis N Abuse/Domestic Violence N Asthma N Reflux/GERD N Hepatitis N Heart Disease N Pulmonary Embolism N Chronic Ear Infections N Pre-Eclampsia N Hypertension N Chicken Pox N Autism Spectrum Disorder (ASD) N Osteoporosis N Thrombophilias N Gynecological History Statement/Question Response If Post Menopausal, Age at Menopause 53 12/28/2015 Sexually Active? N N On BCP's at Conception? N STIs/STDs N Date of Last Pap Smear 10/03/2006 Sexual Problems? N Age at Menarche 15 Age at First Child 33 Obstetrics History GPAL:G 0 P 0 0 0 0 Immunizations Vaccine Type Date Status Provider Name and Address Organization Details Recorded Time polio, unspecified formulation 04/26/1963 completed Connie Gayle ND [address] [place], [address], [facility] 01/20/2016 13:23:48 Past Encounters Encounter ID Performer Location Encounter Start Date Encounter Closed Date Diagnosis/Indication Diagnosis SNOMED-CT Code [id number] Connie Gayle ND MAIN OFFICE [address] [place] [address] 01/20/2016 12:18:49 01/22/2016 18:04:20 Eczema 81669871 History of urinary stone 676774756 5,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 91605994 [id number] Connie Gayle ND MAIN OFFICE [address] [place] [address] 04/27/2016 15:14:12 05/01/2016 00:15:36 History of calculus of kidney 077117133 Pain in wrist 27188586 Irritable bowel syndrome with diarrhea 551018903 Iron defic iency anemia 57332155 Vitamin D deficiency 347 11606 1585 Connie Gayle ND MAIN OFFICE [address] [place] [address] 07/20/2016 07:51:29 07/24/2016 21:55:36 Anemia 629673617 Fatigue 97787645 Intestinal malabsorption 352703237 [id number] Connie Gayle ND MAIN OFFICE [address] [place] [address] 07/27/2016 14:06:42 08/02/2016 20:08:55 On examination - jaundiced color 764637093 Hyperbilirubinemia 93630 006 Microcytic anemia 153441 007 Health Concerns Section Related Observation LastModified by Organization Detai ls LastModified Time None Recorded Concern Status LastModified by Organization Details LastModified Time None Recorded Advance Directives Directive None Recorded Payers Encounter Date Sequence Insurance Name Policy Number Policy [employer] Covered Member ID Cox Member ID Guarantor Name 01/20/2016 1 [employer] ([employer]ICAID) Kalyn Cabotcase [id number] Kalyn Cabotcase 04/27/2016 1 [employer] ([employer]ICA[employer]) Kalyn Cabotcase [id number] Kalyn Cabotcase 07/20/2016 1 [employer] (MEDICA[employer]) Kalyn Cabotcase [id number] Kalyn Cabotcase 07/27/2016 1 [employer] ([employer]ICA[employer]) Kalyn Cabotcase [id number] Kalyn Cabotcase Notes Date Note Type Note Provider Name and Address Organization Details Recorded Time 01/20/2016 text/html HPI Notes: just recently moved here and want a pcp PAst Kdney theresa Feels good some days, then worse others, gastrointestinal distress Prone to stress: Doing GAPS diet with bone broth- need increase protein uptake Nothern gene need meat- can only obtain b12 from it Adhd at 55 yrs old Less fruit: Diet: trys to do leaky gut and sabrina diet Sinus infection and throat would close down, also has excema Recent KD infection, not just a stone Think has had one before- ea Potassium and Mg very low Eats a banana /day, pumpkin and walnuts Food allergy- tested through [facility] from [facility] Caprylic acid helps clear it up. THinks maybe i have lymes- like a terrible itch, teeth hurt, spiral fracture to distal tibia, achey skiing Hips aches Fused discs c456 in neck dt skiing, was skiing with loose ski, has stress fracture and bones spurs Dexascan-20yrs ago, needed calcuim Grinds teeth as well ROS on file Connie Gayle, [place] [address] [facility], [place], [address], [facility] 01/25/2016 09:17:59 04/27/2016 text/html HPI Notes: MSKL: Patient complains of Rt arm , wrist, and shoulder pain. Location rt arm. REcently broke arm. quality dull, numb, severity 4/5, duration2 months, aggravating factors- cast and when Bucky Allison Pushed on it. alleviating factors ice, Bioforce cream, PT, and craniosacral. associated symptoms swelling, limited ROM and numbness Got MRI- showed torn rotator cuff in Rt shoulder. can't get comfortable with shoulder. 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 Therbiotic has been doing 1/4 tsp/day and helps a little doesnt eat a lot Discussed STOOL TEST Connie Nalini, SUDEEP [address] [place], [address], [facility] 12/19/2017 18:54:29 07/20/2016 text/html HPI Notes: fatig ue and diarrhea for almost 3 weeks thin ribbons for stool or piles of cow cat were dark but now yellow can not do alcohol- she took one sip of wine and was completely congested ate alot of blueberries she says that makes her all puffy the next day Now she thinks she has a MAst Cell activation disease she brought all of her supplements that e has gathered at the [employer] food store She switch digestive enzymes Jim aguillon and kevin worked on digestion and made it better she eats and then she has to go to bathroom right away fhx: uncle colon cancer she thinks she is sensitive to phenol headache, flank pain, neck ache, frequent urination, corrected by cutting out green tea grinding her teeth alot like and craves almonds WE researched vitamins in office to go over nutritional content and comparison Connie Gayle ND [address] [facility], [place], [address], [facility] 07/24/2016 21:54:53 07/27/2016 text/html HPI Notes: Fatig ue Reported by patient. Status: chronic Quality: generalized; throught the day/evening Severity: normal sleep patterns; improving; moderate Duration: symptoms lasting over 2 weeks Modifying Factors: no new stressors in life; taking vitamins Associated Symptoms: no depression; no alcohol consumption; weight loss; joint pain; palpitations; dizziness we discussed mold today turns out that she was exposed to mold in [place]- all her belongings were cover in water and mold for years SHe remembers everything sort of falling apart She has had multiple sexual partners she has never been tested for HIV Connie Gayle, [place] [address] [facility], [place], [address], [facility] 08/30/2016 09:39:49 OBGyn Episode No OBEpisode recorded.
--- OUTSIDE RECORDS SUMMARY | 2024-06-27 15:13 | XMS_ITS | Encounter Summary ---
Author Organization [facility] Address [address] [place] [address] Care Team Providers Care Feed And Farm Management Adviser Name Role Phone Unknown, Provider Primary Care Provider [phone] April Cummins NP Primary Care Provider [phone] Encounter Details Date Type Department Care Team (Late st Contact Info) Description 11/03/2016 Historical Results Only [facility] - Main [address] [address] Carrillo Gutiérrez MD Social History Tobacco Use [...] Procedure Name Priority Date/Time Associated Diagnosis Comments COMPREHENSIVE METABOLIC PANEL (CMP) Routine 11/03/2016 11:44 EST documented in this encounter Results * COMPREHENSIVE METABOLIC PANEL (CMP) (11/03/2016 11:44 EST) Albumin % 4.2 3.4 - 5.0 g/dL 11/03/2016 13:05 [facility] ALKALINE PHOSPHATASE - [facility] 79 41 - 126 U/L 11/03/2016 13:05 [facility] BILIRUBIN TOTAL 0.8 0.0 - 1.0 mg/dL 11/03/2016 13:05 [facility] BUN - [facility] 12 7 - 18 mg/dL 11/03/2016 13:05 [facility] CALCIUM - [facility] 9.2 8.5 - 10.1 mg/dL 11/03/2016 13:05 [facility] Chloride 106 98 - 107 mEq/L 11/03/2016 13:05 [facility] CO2 Total 31 21 - 32 mEq/L 11/03/2016 13:05 [facility] CREATININE 0.80 0.5 - 1.3 mg/dL 11/03/2016 13:05 [facility] eGFR >60 11/03/2016 13:05 [facility] Comment: Chronic renal impairment is defined as GFR <60 Multiply result by 1.210 for patients. eGFR calculated using the IDMS-traceable MDRD Study Equation. ??(effective 09/28/2014) Anion Gap 5 5 - 15 11/03/2016 13:05 [facility] GLUCOSE - [facility] 77 70 - 100 mg/dL 11/03/2016 13:05 [facility] Potassium 4.5 3.5 - 5.0 mEq/L 11/03/2016 13:05 [facility] Sodium 142 135 - 145 mEq/L 11/03/2016 13:05 [facility] TOTAL PROTEIN - [facility] 6.9 6.4 - 8.2 gm/dl 11/03/2016 13:05 [facility] SGOT/AST - [facility] 16 10 - 37 U/L 11/03/2016 13:05 [facility] SGPT/ALT - [facility] 32 12 - 78 U/L 11/03/2016 13:05 [facility] 11/03/2016 11:4 4 EST 11/03/2016 11:44 EST [facility] - 11/03/2016 13:05 EST Does PT Have a Latex Allergy? NO Carrillo Gutiérrez MD CHEMISTRY & BLOOD GA S ORDERABLES [facility] documented in this encounter Visit Diagnoses Not on filedocumented in this encounter Care Teams Feed And Farm Management Adviser Relationship Specialty Start Date End Date Unknown, Provider, PCP - General 08/08/16 02/20/19 April Cummins, [employer] OWNER [address] [place] [id number] PCP - General 02/21/19 documented as of this encounter
--- OUTSIDE RECORDS SUMMARY | 2024-06-27 15:13 | XMS_ITS | Encounter Summary ---
Author Organization [facility] [place] [address] Care Team Providers Care Scissors Grinder Name Role Phone April Cummins APRN Primary Care Provider [phone] Reason for Visit * Reason Comments Medication Refill Encounter Details Date Type Department Care Team (Late st Contact Info) Description 02/26/2023 Refill Neurology at [facility] [place] [address] Jed Jc MD [facility] [place] [address] Social History Tobacco Use Types Packs/Day Years [...] on filedocumented in this encounter Care Teams Scissors Grinder Relationship Specialty Start Date End Date April Cummins APRN [address] [place] [address] PCP - General Internal Medicine 01/13/21 documented as of this encounter
--- OUTSIDE RECORDS SUMMARY | 2024-06-27 15:13 | XMS_ITS | Encounter Summary ---
Author Organization [facility] [place] [address] Care Team Providers Care Link Knitting Machine Operator Name Role Phone April Cummins KALE Primary Care Provider [phone] Reason for Visit * Auth/Cert Specialty Diagnoses / Procedures Referred By Rafael mart Referred To Contact Diagnoses PMB, abnormal US of the endometrium Procedures PRO HYSTEROSCOPY, W/ENDO BX HYSTEROSCOPY, SURG W/ENDOMETRIAL SAMPLING, POLYPECTOMY (WRVU 4.74) MODIFIER-MYOSURE Judd Ryan MD [facility] [place] [address] [facility] Referral ID Status Reason Start Date Expiration Date Visits Re quested Visits Authorized [id number] 1 1 Encounter Details Date Type Department Care Team (Latest Contact Info) Description 08/30/2022 10:07 AM EDT - 08/30/2022 2:40 PM EDT Hospital Encounter Post Acute Care Unit at [facility] [place] [address] Judd Ryan MD [facility] [place] [address] Abnormal ultrasound of endometrium; Endometrial polyp Discharge Disposition: Home Social History Tobacco Use Types Packs/Day Years [...] Sign Reading Time Taken Comments Blood Pressure 111/57 08/30/2022 1:56 PM EDT Pulse 70 08/30/2022 1:56 PM EDT Temperature 37 ??C (98.6 ??F) 08/30/2022 1:44 PM EDT Respiratory Rate 16 08/30/2022 1:56 PM EDT Oxygen Saturation 98% 08/30/2022 1:56 PM EDT Inhaled Oxygen Concentration - - [...] This procedure is usually well-tolerated. Expect some gyue-li-vzagthje cramping for the next 1-2 days. If you were given a prescription for pain medication you should use it as needed. If you were not prescribed pain medication, you can take ibuprofen or naproxen. FOLLOW UP APPOINTMENTS: Your follow up appointment has already been scheduled. If you are uncertain as to the date or time,please call the office at [phone]. MEDICATIONS: Take your medicine at the time [...] pharmacy that fills the prescription. Only take lkiq-yvv-qmjlkky or prescription medicine for pain, discomfort or [...] foul smelling vaginal discharge. SMOKING CESSATION INFORMATION: [place] QUITLINE: [place] QUITLINE: www.quitnet.TaKaDu If you smoke, stop now! MAKE SURE YOU: Understand these instructions. Will seek medical care if you are feeling poor, or get worse. Will call the [facility] with any questions or concerns at : [phone]. Nursing information only: Original document to medical [...] 60 mg by mouth every morning. 05/30/2022 DRY COLOR TESTER Thyroid 30 mg Tablet Take 30 mg by mouth every morning. 07/09/2022 pantoprazole EC (Protonix) 20 mg Tablet, Delayed Release (E.C.) TAKE 1 TABLET (20MG) BY MOUTH DAILY 06/28/2022 thyroid (Hammond) 30 mg Tablet Take 30 mg by [...] rectally. 06/28/2021 fluticasone propionate (Flonase) 50 mcg/actuation [place], Suspension 1 spray by Each Nare route daily. NEEDED 05/03/2021 EPINEPHrine 0.3 mg/0.3 mL Auto-Injector Inject 0.3 mLs into the muscle once as needed (allergic reaction ( tight throat, difficulty breathing, lightheaded)). 1 kit 3 07/27/2021 ferrous bis-glycinate chelate (iron bisglycin chelate, bulk,) Powder by [facility].(Non-Drug; Combo Route) route. Thyroid, Pork, (Hammond Thyroid) 15 mg Tablet Take 45 mg by mouth daily. 30mg and 15mg castor oil Oil [place] Oil, See Instructions, Apply topically, 0 Refill(s) 01/18/2020 pyridoxine, vitamin B6, (B-6) 100 mg Tablet Daily, 0 Refill(s) 01/18/2020 Ciclesonide (OMNARIS) 50 mcg [place], Non-Aerosol INSTILL TWO SPRAYS IN EACH NOSTRIL TWICE A DAY 12.5 g 09/08/2019 Sopjzlbs7-Jydntd7-Lhow p therm. (VISBIOME) 112.5 billion cell CapsuleIndications:Sma [...] Plan is to proceed as scheduled. Ms. E.today 11:48 AM documented in this encounter Miscellaneous Notes * Op Note - Judd Ryan MD - 08/30/2022 12:34 PM EDT [facility] [place] [address] Patient Name: Kalyn Burgos : [id number] MR#: [id number] Case Date: 08/30/2022 Case Scheduled Time: 1144 [...] endometrium PMB (postmenopausal bleeding) Hysteroscopy, W/Endo Bx (12297) 08/30/2022 12:13 PM EDT Abnormal ultrasound of endometrium PMB (postmenopausal bleeding) documented in this encounter Results * Specimen to Pathology (08/30/2022 12:56 PM EDT) AP Specimen 08/30/2022 12:5 6 PM EDT 08/30/2022 12:[address] [facility] - 08/30/2022 12:56 PM EDT Specimen requisition ordered. ??Separate Pathology report to follow Judd Ryan MD PATHOLOGY/CYTOLOGY ORDERABLES [facility] [place] [address] * Specimen to Pathology (08/30/2022 12:56 PM EDT) AP Specimen 08/30/2022 12:5 6 PM EDT 08/30/2022 12:[address] [facility] - 08/30/2022 12:56 PM EDT Specimen requisition ordered. ??Separate Pathology report to follow Judd Ryan MD PATHOLOGY/CYTOLOGY ORDERABLES [facility] [place] [address] * Surgical Pathology Report (08/30/2022 12:42 PM EDT) FINAL DIAGNOSIS (AP) [id number] ? Location: [facility]; [facility]; A The signing pathologist has (i) examined [...] Verified: ??09/05/2022 7:46 ?? Pathologist Performed at: ??-[facility] Dept. of Pathology, [place], [place] ADDITIONAL STUDIES Immunohistochemistry Studies: Formalin-fixed, paraffin-embedded [...] PM EDT Judd Ryan MD PATHOLOGY/CYTOLOGY ORDERABLES [facility] [place] [address] documented in this encounter Visit Diagnoses Diagnosis Abnormal ultrasound of endometrium Nonspecific (abnormal) findings on radiological and other examination of genitourinary organs Endometrial polyp Polyp of corpus uteri documented in this encounter Active and Recently Administered Medications Times are shown in EDT. Continuous Medication Order 08/28/2022 08/29/2022 08/30/2022 lactated ringers infusion (CANCELED) 1,000 mL, at 50 mL/hr, Intravenous, CONTINUOUS, Starting on Sun08/30/22 at 1045, Until Sun08/30/22 at 1441, Day of Surgery (Day of Procedure) 1214 ([facility] ider: Kg Sharma CRNA) documented in this encounter Care Teams Link Knitting Machine Operator Relationship Specialty Start Date End Date April Cummins APRN [address] [place] [address] PCP - General Internal Medicine 01/13/21 documented as of this encounter
--- OUTSIDE RECORDS SUMMARY | 2024-06-27 15:13 | XMS_ITS | Encounter Summary ---
Author Organization [facility] [place] [address] Care Team Providers Care Cooling Room Attendant Name Role Phone April Cummins APRN Primary Care Provider + [phone] Reason for Visit * Reason Comments Medication Refill Encounter Details Date Type Department Care Team (Late st Contact Info) Description 02/16/2023 Refill Neurology at [facility] [place] [address] Jed Jc MD [facility] [place] [address] Social History Tobacco Use Types Packs/Day Years [...] encounter Miscellaneous Notes * Telephone Encounter - Ethan Fuentes - 02/26/2023 9:51 AM EDT Jojo, from [facility] Internal Medicine / Office of April Cummins APRN, called to speak to Brittnee Lyons RN. Jojo stated that April will refill the prescription for gabapentin but needs to know when it is due to be refilled. * Telephone Encounter - Brittnee Lyons RN - 02/23/2023 2:48 PM EDT Have not heard back from pt re: PCP taking over management of gabapentin refill. Spoke with RN for pt's PCP April Cummins APRN, given information on pt's current gabapentin prescription and refill request. RN will ask PCP if she is willing to take over management of this medication for pt. * Telephone Encounter - Brittnee Lyons RN - 02/19/2023 9:49 AM EDT Last visit 04/10/[address] Jc, per provider note Follow up as needed. Does not have follow upvisit currently scheduled. Called pt to ask if she would prefer her PCP manage gabapentin and future refills if comfortable with this, no answer, left message for pt to return call to neurology clinic at [phone] re: refill question, or to reach out via [employer] message if easier. documented in this encounter Plan of Treatment Scheduled Procedures Name Priority Associated Diagnoses Date/Ti me COLONOSCOPY, DIAGNOSTIC (WRV U 3.26) Encounter for colorectal cancer screening documented as of this encounter Visit Diagnoses Not on filedocumented in this encounter Care Teams Cooling Room Attendant Relationship Specialty Start Date End Date April Cummins APRN [address] [place] [address] PCP - General Internal Medicine 01/13/21 documented as of this encounter
--- OUTSIDE RECORDS SUMMARY | 2024-06-27 15:13 | XMS_ITS | Encounter Summary ---
Author Organization [facility] [place] [address] Care Team Providers Care Roof Service Technician Name Role Phone Rosita Cumminsyce Tanvir HENLEY Primary Care Provider [phone] Encounter Details Date Type Department Care Team (Late st Contact Info) Description 08/23/2022 3:00 PM EDT Telephone Pre-Admission Testing at [facility] [address] [place] [address] Social History Tobacco Use Types Packs/Day Years [...] as of this encounter Progress Notes * Zeynep Sanford RN - 08/23/2022 3:09 PM EDTSummary: covid COVID-19 SCREENING: In the past 14 days, have you had any of the following symptoms: [] Fever (subjective or documented fever) [] Chills [] Cough [] Shortness of breath or difficulty breathing [] Fatigue [] Muscle or body aches [] Headache [] New loss of taste or smell [] Sore throat [] Nausea or vomiting [] Diarrhea [x]NONE OF THE ABOVE Have you tested positive for COVID in the last 90 days? [x]No []Yes If Yes; Date of positive test: Type of test performed: What were your symptoms: Have you scheduled your preop COVID screening test? []Yes []No [x]N/A vaccinated documented in this encounter Plan of Treatment Scheduled Procedures Name Priority Associated Diagnoses Date/Ti me COLONOSCOPY, DIAGNOSTIC (WRV U 3.26) Encounter for colorectal cancer screening documented as of this encounter Visit Diagnoses Not on filedocumented in this encounter Care Teams Roof Service Technician Relationship Specialty Start Date End Date April Cummins APRN [address] [place] [address] PCP - General Internal Medicine 01/13/21 documented as of this encounter
--- OUTSIDE RECORDS SUMMARY | 2024-06-27 15:13 | XMS_ITS | Encounter Summary ---
Author Organization [facility] [place] [address] Care Team Providers Care Construction Inspector Name Role Phone April Cummins Tanvir HENLEY Primary Care Provider [phone] Encounter Details Date Type Department Care Team (Late st Contact Info) Description 09/06/2022 Telephone [facility] [place] [address] Nichelle Gao LPN Social History Tobacco Use [...] Telephone Encounter - Nichelle Gao LPN - 09/06/2022 3:55 PM EDT I have spoken with pt and let her know that per her PCP office her urine is negative. Pt. States that she is having some left flank pain and will contact PCP to see if they will do ultrasound. Pt states that she lives to far away to come down to be seen. I will send message on to Dr. Ryan * Telephone Encounter - Nichelle Gao LPN - 09/06/2022 3:44 PM EDT Called pt on both Cell phone and home number asked her to please call me back. * Telephone Encounter - Frances Billy - 09/06/2022 3:28 PM EDT PT called back * Telephone Encounter - Nichelle Gao LPN - 09/06/2022 3:20 PM EDT Received call from Antonina at Dr. Elise office ( pts. PCP) she reported pt. Seen today and that her urine was negative for UTI. I have called and left message for pt to please call me back documented in this encounter Plan of Treatment Scheduled Procedures Name Priority Associated Diagnoses Date/Ti me COLONOSCOPY, DIAGNOSTIC (WRV U 3.26) Encounter for colorectal cancer screening documented as of this encounter Visit Diagnoses Not on filedocumented in this encounter Care Teams Construction Inspector Relationship Specialty Start Date End Date April Cummins APRN [address] [place] [address] PCP - General Internal Medicine 01/13/21 documented as of this encounter
--- OUTSIDE RECORDS SUMMARY | 2024-06-27 15:13 | XMS_ITS | Encounter Summary ---
Author Organization [facility] [place] [address] Care Team Providers Care Ware Dresser Name Role Phone April Cummins KALE Primary Care Provider [phone] Reason for Visit * Auth/Cert Specialty Diagnoses / Procedures Referred By Rafael mart Referred To Contact Diagnoses PMB, abnormal US of the endometrium Procedures PRO HYSTEROSCOPY, W/ENDO BX HYSTEROSCOPY, SURG W/ENDOMETRIAL SAMPLING, POLYPECTOMY (WRVU 4.74) MODIFIER-MYOSURE Judd Ryan MD [facility] [address] OBSTETRICS [place] [address] [facility] Referral ID Status Reason Start Date Expiration Date Visits Re quested Visits Authorized [id number] 1 1 Encounter Details Date Type Department Care Team (Late st Contact Info) Description 08/30/2022 12:14 PM EDT Anesthesia Event Operating Room [address] [place] [address] Kg Sharma, SHIPFITTER [place] [address] Anesthesia Record Procedure Summary Procedure Name Responsible Anesthesiologist Anesthesia Start Time Anesthesia Stop Time HYSTEROSCOPY, SURG W/ENDOMETRIAL SAMPLING, POLYPECTOMY (WRVU 4.17) (Uterus) Kg Sharma, SHIPFITTER 08/30/22 1214 08/30/22 1304 Events Date Time Event Comment 08/30/2022 1137 1214 AN Verify 1214 Start 1214 An Start Data 1218 An Induction 1219 An Intubation 1219 Anesthesia Ready 1250 Extubation/LMA Out 1253 an stop data 1255 Recovery or ICU Handoff Michelle ent care was transferred to the destination unit staff after review of the patient's medical history, current anesthetic/surgical status and plan, according to the Provider Handoff Checklist. 1304 Stop Meds Name Total Midazolam 2 mg fentaNYL 100 mcg IV Lidocaine 25 mg Propofol 150 mg Ondansetron 4 mg Dexamethasone 4 mg Ketorolac 15 mg lactated ringers infusion 0 mL * Agents Name O2 Air N2O Sevoflurane (et) * Blood No blood administrations on file. Lines, Drains, and Airways Type Details Placement Removal Incision 08/30/22; 1235; medial; vagina; other (see comments); cervical dilatation 08/30/22 1235 by Lily Salazar, RN (RETIRED) Peripheral IV Line - Single Lumen 08/30/22; 1048; cephalic vein (lateral side of arm), left; qsnq-kez-wwqpzg catheter system; 20 gauge; ECB RN; distraction, tolerated well; no longer indicated, catheter/device intact; 08/30/22; 1426 08/30/22 1048 by Afua Skelton RN 08/30/22 1426 by Yasmine Meyer RN Supraglottic Mask Ventilation: Ea sy (1); LMA Type: iGel; LMA Size: 3; Removal Date: 08/30/22; Removal Time: 1250 08/30/22 1219 by Kg Sharma CRNA 08/30/22 1250 by Kg Sharma CRNA documented in this encounter Social History Tobacco [...] documented as of this encounter OR Notes * Anesthesia Postprocedure Evaluation - Kg Sharma CRNA - 08/30/2022 1:04 PM EDT Department of Anesthesiology Post-procedure Note Patient: Kalyn Burgos Procedure Summary Date: 08/30/22 Room / Location: [facility] OR MAIN OR Anesthesia Start: 1214 Anesthesia Stop: 1304 Procedures: HYSTEROSCOPY, SURG W/ENDOMETRIAL SAMPLING, POLYPECTOMY (WRVU 4.74) (N/A Uterus) MODIFIER-MYOSURE (N/A ) Diagnosis: Abnormal ultrasound of endometrium PMB (postmenopausal bleeding) (PMB, abnormal US of the endometrium) Surgeons: Judd Ryan MD Responsible Provider: Kg Sharma CRNA Anesthesia Type: general ASA Status: 2 All Anesthesia Providers: JOSE Independent: Kg Sharma CRNA Vitals Value Taken Time BP 124/65 08/30/22 1300 Temp 36.5 ??C (97.7 ??F) 08/30/22 1256 Pulse 56 08/30/22 1300 Resp 16 08/30/22 1300 SpO2 99 % 08/30/22 1300 Pain Level Patient Location: PACU Level of Consciousness: Awake and Alert Pain Management: Satisfactory Analgesia PONV: None Cardiovascular Status: At Baseline Respiratory Status: At Baseline Postoperative Fluid Status: Intravascular EUvolemia Possible Anesthetic Complications: NONE apparent at time of evaluation Final Primary Anesthesia Type: General (The anesthetic type performed was the same as planned.) Comments: Please see PACU flowsheet for VS. Report and care to RN * Anesthesia Preprocedure Evaluation - Kg Sharma CRNA - 08/30/2022 11:36 AM EDT Pre-Anesthesia Evaluation for: Kalyn Burgos a 61 y.o. female. Procedure(s): HYSTEROSCOPY, SURG W/ENDOMETRIAL SAMPLING, POLYPECTOMY (WRVU 4.74) MODIFIER-MYOSURE Patient Active Problem List Diagnosis Date Noted ??? Closed displaced comminuted fracture of shaft of left tibia 02/01/2021 ??? Postoperative anemia due to acute blood [...] spine 04/19/2016 ??? Left ulnar fracture 02/16/2016 Past Medical History: Diagnosis Date ??? Anxiety ??? Depression ??? IBS (irritable bowel syndrome) ??? Nephrolithiasis ??? No known health problems ??? Sepsis due to urinary tract infection Past Surgical History: Procedure Laterality Date ??? APPENDECTOMY ??? CERVICAL FUSION C4/5 ??? SECTION ??? PRO APPLY BONE UNIPLANE, EXT FIX DEV Left 01/06/2020 APPLICATION OF A UNIPLANE, UNILATERAL, EXT FIXATION SYS, LOWER EXTREMITY (WRVU 8.78) performed by Yolanda Still MD at [facility] MAIN OR ??? PRO OPEN TREAT TIBIA SHAFT FX, SCREWS Left 01/08/2020 ORIF TIBIAL SHAFT, PLATE & SCREWS (WRVU 12.54) performed by Yolanda Still MD at [facility] MAIN OR ??? SHOULDER ARTHROSCOPY ??? TIBIA FRACTURE SURGERY ??? URETER STENT PLACEMENT ??? WISDOM TOOTH EXTRACTION ??? WISDOM TOOTH EXTRACTION Social History Tobacco Use ??? Smoking status: Never Smoker ??? Smokeless tobacco: Never Used ??? Tobacco comment: Exposure to smoking in the home until the age of 16 Substance Use Topics ??? Alcohol use: No Social History Substance and Sexual Activity Drug Use No Allergies Allergen Reactions ??? Bee Pollen Bee stings Other reaction(s): throat closes up ??? Folic Acid ??? Milk Diarrhea ??? Senna ??? Sugarup [Dextrose] ??? Tetracycline Nausea Only ??? Wheat Other (See Comments) Gastrointestinal distress Medications: MAR and/or home medications have been reviewed. Physical Exam: Preprocedure Vitals Current as of 08/30/22 1136 BP: 106/58 Pulse: 52 Resp: 15 SpO2: 100 Temp: 36.4 ??C (97.5 ??F) Height: 165.1 cm (5' 5) (08/30/22) Weight: 53.5 kg (118 lb) (08/30/22) BMI: 19.63 IBW: 57 kg (125 lb 10.6 oz) Last edited 08/30/22 1026 by EB Airway Assessment: Mallampati: II TM distance: >3 FB Neck ROM: full Cardiovascular Assessment: Rhythm: regular Rate: normal Pulmonary Assessment: unlabored breathing Dental Assessment: Misc Assessment: Patient is wearing No contact(s). IV access: Peripheral line Last Filed Perioperative Cognitive Screening None Anesthesia Plan: ASA 2 general, with a(n) intravenous induction Informed Consent: Anesthetic plan and risks discussed with patient. Use of blood products discussed with patient who consented to blood products. Anesthesia Screening documented in this encounter Plan of Treatment Scheduled Procedures Name Priority Associated Diagnoses Date/Ti me COLONOSCOPY, DIAGNOSTIC (WRV U 3.26) Encounter for colorectal cancer screening documented as of this encounter Visit Diagnoses Not on filedocumented in this encounter Administered Medications Inactive Administered Medications - up to 3 most recent administrations Medication Order MAR Action Action Date Dose Rate Site dexAMETHasone (Decadron) injection Intravenous, PRN, Starting on Sun08/30/22 at 1221, Until Sun08/30/22 at 1304, Anesthesia Intra-op, Routine Given 08/30/2022 12:21 PM EDT 4 mg fentaNYL (pf) (50 mcg/mL) multi-dose injection Intravenous, PRN, Starting on Sun08/30/22 at 1218, Until Sun08/30/22 at 1304, Anesthesia Intra-op, Routine Given 08/30/2022 12:21 PM EDT 50 mcg Given 08/30/2022 12:18 PM EDT 50 mcg ketorolac (Toradol) (30 mg/mL) injection Intravenous, PRN, Starting on Sun08/30/22 at 1221, Until Sun08/30/22 at 1304, Anesthesia Intra-op, Routine Given 08/30/2022 12:21 PM EDT 15 mg lactated ringers infusion 1,000 mL, at 50 mL/hr, Intravenous, CONTINUOUS, Starting on Sun08/30/22 at 1045, Until Sun08/30/22 at 1441, Day of Surgery (Day of Procedure) New Bag 08/30/2022 12:14 PM EDT lidocaine (pf) (Xylocaine) (20 mg/mL) 2% injection syringe Intravenous, PRN, Starting on Sun08/30/22 at 1218, Until Sun08/30/22 at 1304, Anesthesia Intra-op, Routine Given 08/30/2022 12:18 PM EDT 25 mg midazolam (pf) (Versed) (1 mg/mL) multi-dose injection Intravenous, PRN, Starting on Sun08/30/22 at 1214, Until Sun08/30/22 at 1304, Anesthesia Intra-op, Routine Given 08/30/2022 12:14 PM EDT 2 mg ondansetron (pf) (Zofran) (2 mg/mL) injection Intravenous, PRN, Starting on Sun08/30/22 at 1221, Until Sun08/30/22 at 1304, Anesthesia Intra-op, Routine Given 08/30/2022 12:21 PM EDT 4 mg propofoL (Diprivan) 10 mg/mL bolus injection (Anesthesia) Intravenous, PRN, Starting on Sun08/30/22 at 1218, Until Sun08/30/22 at 1304, Anesthesia Intra-op Given 08/30/2022 12:18 PM EDT 150 mg documented in this encounter Care Teams Ware Dresser Relationship Specialty Start Date End Date April Cummins APRN [address] [place] [address] PCP - General Internal Medicine 01/13/21 documented as of this encounter
--- OUTSIDE RECORDS SUMMARY | 2024-06-27 15:13 | XMS_ITS | Clinical Summary ---
Author Organization [facility] Address [address] [place] [address] Care Team Providers Care Sheet Layer Name Role Phone April Cummins FINANCIAL AID DIRECTOR Primary Care Provider [phone] Allergies No known active allergies Medications Medication Sig Dispensed Refills Start Date End Date Status acetylcysteine (K-RXYRGY-T-CYSTEINE MISC) Take 600 mg by mouth daily. Active ascorbic acid, vitamin C, (VITAMIN C) 250 mg tablet Take 250 mg by mouth daily. Active IODINE ORAL Take 2.5 mg by mouth daily. Active ascorbate calcium (RIKI-C ORAL) Take 1 tablet by mouth daily. Active ESTRIOL, BULK, MISC Place 0.5 mg vaginally twice a week. Active B complex-vitamin C-folic acid 1 mg tablet Take 1 tablet by mouth at bedtime. Active UNABLE TO FIND Take 1 tablet by mouth daily. Med Name: Phyto-ADR (Adrenal support) Active Surgical History Surgery Date Site/Laterality Comments SECTION, LOW TRANSVERSE 11/26/1993 - 11/25/1994 APPENDECTOMY 11/26/1977 - 11/25/1978 open appendectomy for ruptured appendicitis CERVICAL FUSION 11/26/2007 - 11/25/2008 C4,5,6 BONE GRAFT 11/26/2005 - 11/25/2006 tibia TIBIA FRACTURE SURGERY 11/26/2004 - 11/25/2005 Medical History Medical History Date Comments Nephrolithiasis 2015 treated with christ nt ANIBAL (obstructive sleep apnea) Family History Medical History Relation Comments Emphysema Father Other Inherited Genetic or Chromosomal Disorder Father brain tumor Emphysema Mother Thyroid Disease Mother thyroidectomy Relation Status Comments Father Mother Social History Tobacco Use Types Packs/Day Years [...] on file Sexual Orientation Not on file Obstetrics History Plan of Treatment Health Maintenance Due Date Last Done Comments Hepatitis C Screen 1960 RSV Immunization ( o r 60+ Years) (1 - 1-dose 60+ series) 2018 COVID-19 Vaccine (2022-24 season) 2023 Fall Risk Screening 2023 Care Teams Sheet Layer Relationship Specialty Start Date End Date April Cummins, KEATON [address] [place] [address] PCP - General 02/21/19
--- OUTSIDE RECORDS SUMMARY | 2024-06-27 15:13 | XMS_ITS | Referral Summary ---
Author Organization [facility] Address [address] [place] [address] Care Team Providers Care Emergency Doctor Name Role Phone April Cummins Tanvir BAND REAMER MACHINE OPERATOR Primary Care Provider Allergies No known active allergies Medications Medication Sig Dispensed Refills Start Date End Date Status acetylcysteine (G-HLUSOD-R-CYSTEINE MISC) Take 600 mg by mouth daily. [...] daily. Med Name: Phyto-ADR (Adrenal support) Active Social History Tobacco Use Types Packs/Day Years [...] on file Sexual Orientation Not on file Plan of Treatment Not on file Care Teams Emergency Doctor Relationship Specialty Start Date End Date April Cummins NP [address] [place] [id number] PCP - General 02/21/19
--- OUTSIDE RECORDS SUMMARY | 2024-06-27 15:13 | XMS_ITS | Encounter Summary ---
[place] [address] Care Team Providers Care Stock Replenisher Name Role Phone April Cummins BUFFING WHEEL PRESSER Primary Care Provider Reason for Referral * Consultation (Routine) - Closed Specialty Diagnoses / Procedures Referred By Rafael mart Referred To Contact Diagnoses Abnormal ultrasound of endometrium Judd Eugene MD [facility] [address] OBST[facility] [address] April Cummins, BUFFING WHEEL PRESSER [address] [place] [address] Referral ID Status Reason Start Date Expiration Date V isits Requested Visits Authorized [id number] Closed Consult, Test & Treat 07/24/2022 01/20/2023 1 1 Reason for Visit * Reason Comments Establish Care Endometrial polyp * Consultation (Routine) - Closed Specialty Diagnoses / Procedures Referred By Rafael mart Referred To Contact Obstetrics and Gynecology Diagnoses Polyp, corpus uteri April Cummins, BUFFING WHEEL PRESSER [address] [place] [address] [facility] [address] [place] [address] Referral ID Status Reason Start Date Expiration Date V isits Requested Visits Authorized [id number] Closed Consult, Test & Treat PCP Updated and/or Approved 05/14/2022 05/14/2023 1 1 Encounter Details Date Type Department Care Team (Late st Contact Info) Description 07/24/2022 10:30 AM EDT Office Visit [facility] [place] [id number] Judd Eugene MD [facility] OBST[facility] [place] [address] Abnormal ultrasound of endometrium; PMB (postmenopausal bleeding) Social History Tobacco Use Types Packs/Day Years [...] Sign Reading Time Taken Comments Blood Pressure 102/58 07/24/2022 10:20 AM EDT Pulse 62 07/24/2022 10:20 AM EDT Temperature 37 ??C (98.6 ??F) 07/24/2022 10:20 AM EDT Respiratory Rate 14 07/24/2022 10:20 AM EDT Oxygen Saturation 99% 07/24/2022 10:20 AM EDT Inhaled Oxygen Concentration - - Weight 53.1 kg (117 lb) 07/24/2022 10:20 AM EDT Height 167.6 cm (5' 6) 07/24/2022 10:20 AM EDT Body Mass Index 18.88 07/24/2022 10:20 AM EDT documented in this encounter Progress Notes * Judd Eugene MD - 07/24/2022 10:30 AM EDT Chief Complaint: Chief Complaint Patient presents with ??? Establish Care Endometrial polyp Subjective: HPI: Kalyn Darnell Case is a 61 y.o. No obstetric history on file. female presenting to the [facility] with the following concerns: ??? Had recent abdominal pain and had a pelvic US ??? Endometrial polyp 9 x 7 mm on US 05/03/2022 o Uterus measures 8 x 4.3 x 5 cm o Multiple fibroids with largest 1.5 x 1.7 x 1 cm o Fluid in cavity o Endometrial stripe is 9 mm ??? Possibly has had some vaginal spotting rarely ROS: Review of Systems Pertinent Past medical and surgical history: Has a hx of left flank pain and has had imaging to evaluate left kidney Patient Active Problem List Diagnosis Code ??? Left ulnar fracture S52.202A ??? 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 Disorder of muscle, ligament, and fascia M62.9, M24.20 ??? Pelvic floor dysfunction M62.89 ??? Chronic constipation K59.09 ??? Mixed stress and urge urinary incontinence N39.46 ??? Lower urinary tract symptoms (LUTS) R39.9 ??? History of nephrolithiasis Z87.442 ??? Renal cyst, acquired N28.1 ??? NELSON (stress urinary incontinence, female) N39.3 ??? Cystocele, midline N81.11 ??? 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 Tibia fracture S82.209A ??? Postoperative anemia due to acute blood loss D62 ??? ACL tear S83.519A ??? Closed displaced comminuted fracture of shaft of left tibia S82.252A Past Medical History: Diagnosis Date ??? Anxiety [...] 8.78) performed by Yolanda Still MD at [facility] MAIN OR ??? PRO OPEN TREAT TIBIA SHAFT FX, SCREWS Left 01/08/2020 ORIF TIBIAL SHAFT, PLATE & SCREWS (WRVU 12.54) performed by Yolanda Still MD at [facility] MAIN OR ??? SHOULDER ARTHROSCOPY ??? TIBIA FRACTURE SURGERY ??? URETER STENT PLACEMENT Current Outpatient Medications on File Prior to Visit Medication Sig Dispense Refill ??? baclofen (Lioresal) 10 mg Tablet TAKE ONE TABLET BY MOUTH THREE TIMES A DAY NEEDED FOR MUSCLE PAIN ??? Lidoderm 5 % Adhesive Patch, Medicated APPLY ONE PATCH DIRECTED DAILY (12 HOURS ON; 12 HORUSOFF) ??? prednisoLONE acetate (Pred-Forte) 1 % Drops, Suspension INSTILL ONE DROP IN THE LEFT EYE FOUR TIMES A DAY FOR 7 DAYS ??? FLUoxetine (PROzac) 20 mg Capsule ??? DIECAST MACHINE OPERATOR Thyroid 30 mg Tablet Take 30 mg by mouth every morning. ??? pantoprazole EC (Protonix) 20 mg Tablet, Delayed Release (E.C.) TAKE 1 TABLET (20MG) BY MOUTH DAILY ??? thyroid ([place] Thyroid) 30 mg Tablet Take 30 mg by mouth daily. ??? amino acids/protein supplement (AMINO ACIDS ORAL) Take by mouth daily. ??? HYDROCHLORIC ACID, BULK, MISC by Misc.(Non-Drug; Combo Route) route. ??? Vitamin B Complex-Vitamin C-Folic Acid (Nephrocap) 1 mg Capsule Take 1 capsule by mouth daily. ??? nutritional supplement/fiber (PEPTIDE 1.0 ORAL) Take by mouth. ??? UNABLE TO FIND bio botanical ??? enzymes,digestive (DIGESTIVE ENZYMES ORAL) Take by mouth. ??? GLYCERIN, ADULT, RECT Place rectally. ??? fluticasone propionate (Flonase) 50 mcg/actuation Alpha, Suspension 1 spray by Each Nare route daily. NEEDED ??? EPINEPHrine 0.3 mg/0.3 mL Auto-Injector Inject 0.3 mLs into the muscle once as needed (allergicreaction ( tight throat, difficulty breathing, lightheaded)). 1 kit 3 ??? ferrous bis-glycinate chelate (iron bisglycin chelate, bulk,) Powder by Misc.(Non-Drug; Combo Route) route. ??? Thyroid, Pork, ([place] Thyroid) 15 mg Tablet Take 45 mg by mouth daily. 30mg and 15mg ??? castor oil Oil [place] Oil, See Instructions, Apply topically, 0 Refill(s) ??? pyridoxine, vitamin B6, (B-6) 100 mg Tablet Daily, 0 Refill(s) ??? Ciclesonide (OMNARIS) 50 mcg Alpha, Non-Aerosol INSTILL TWO SPRAYS IN EACH NOSTRIL TWICE A DAY 12.5 g 0 ??? Okttkgyb7-Xpjodq1-Cynoy therm. (VISBIOME) 112.5 billion cell Capsule Take 3 capsules by mouth daily. 90 capsule 3 ??? b complex vitamins Capsule Take 1 capsule by mouth daily. With folic acid B-1,2,3,5,12 Biotin ??? FLUoxetine (PROZAC) 10 mg Tablet Take 10 mg by mouth 3 times daily. ??? gabapentin (Neurontin) 100 mg Capsule 100 mg AM, 200 mg HS (Patient not taking: No sig reported) 90 capsule 12 ??? cyclobenzaprine (Flexeril) 5 mg Tablet Take 1 tablet by mouth nightly. (Patient not taking: No sig reported) 30 tablet 0 ??? [DISCONTINUED] Lactobacil 2-S.thermo-Bifido 1 (LACTOBAC #2-BIFIDO #1-S. THERM ORAL) Take 3 capsules by mouth. ??? [DISCONTINUED] pantoprazole EC (Protonix) 40 mg Tablet, Delayed Release (E.C.) Take 40 mg by mouth daily as needed. ??? acetylcysteine (NAC ORAL) Take by mouth daily. No current facility-administered medications on file prior to visit. Allergies Allergen Reactions ??? Bee Pollen Bee stings Other reaction(s): throat closes up ??? Folic Acid ??? Milk Diarrhea ??? Senna ??? Sugarup [Dextrose] ??? Tetracycline Nausea Only ??? Wheat Other (See Comments) Gastrointestinal distress Objective: VS: BP 102/58 Pulse 62 Temp 37 ??C (98.6 ??F) Resp 14 Ht 167.6 cm (5' 6) Wt 53.1 kg (117lb) SpO2 99% BMI 18.88 kg/m?? Physical Exam deferred See US pictures and report in PACS Assessment and Plan: Kalyn Darnell Case is a 61 y.o. No obstetric history on file. female with : Kalyn was seen today for establish care. Diagnoses and all orders for this visit: Abnormal ultrasound of endometrium PMB (postmenopausal bleeding) Comments: rare spotting P: We reviewed her US and CT results. We discussed the implications of thickened endometrium and endometrial polyp. We discussed the importance of tissue sampling. We discussed options of office EMB and hysteroscopy D&C with endometrial polypectomy. We compared pros, cons, risks and benefits. She would like to have a hysteroscopy D&C with endometrial polypectomy. Consent was signed today.She will need a pre op H&P by her PCP. Orders were placed today. A total of 40 minutes was spent on the day of the visit for completion of this encounter. (Established patient total visit time: 82623 - 20min, 85189 - 30 min, 92359 - 40 min; New patient total visit times: 13038 - 30 min, 11811 - 45 min, 05401 - 60 min) FOLLOW UP: No follow-ups on file. There are no Patient Instructions on file for this visit. Judd Eugene MD 07/24/22 1:02 PM documented in this encounter Miscellaneous Notes * Addendum Note - Judd Eugene MD - 07/24/2022 10:30 AM EDTAddended by: JUDD EUGENE on: 07/24/2022 01:06 PM Modules accepted: Orders, SmartSet documented in this encounter Plan of Treatment Scheduled Orders Name Type Priority Associated Diagnoses Orde r Schedule SURGICAL CASE REQUEST: HYSTEROSCOPY, SURG W/ENDOMETRIAL SAMPLING, POLYPECTOMY (WRVU 4.74) Procedures Routine Abnormal ultrasound of endometrium PMB (postmenopausal bleeding) Ordered: 07/24/2022 Scheduled Procedures Name Priority Associated Diagnoses Date/Ti me COLONOSCOPY, DIAGNOSTIC (WRV U 3.26) Encounter for colorectal cancer screening Scheduled Referrals Name Type Priority Associated Diagnoses Orde r Schedule Referral to General Internal Medicine Outpatient Referral Routine Abnormal ultrasound of endometrium Ordered: 07/24/2022 documented as of this encounter Visit Diagnoses Diagnosis Abnormal ultrasound of endometrium Nonspecific (abnormal) findings on radiological and other examination of genitourinary organs PMB (postmenopausal bleeding) Postmenopausal bleeding documented in this encounter Care Teams Stock Replenisher Relationship Specialty Start Date End Date April Cummins APRN [address] [place] [address] PCP - General Internal Medicine 01/13/21 documented as of this encounter
--- OUTSIDE RECORDS SUMMARY | 2024-06-27 15:13 | XMS_ITS | Clinical Summary ---
Author Organization [facility] [place] [address] Care Team Providers Care Government Minister Name Role Phone April Cummins Tanvir HENLEY Primary Care Provider [phone] Allergies Active Allergy Reactions Criticality Noted Date Comments Bee Pollen 12/21/2020 Bee stings Other reaction(s): throat closes up Folic Acid 02/01/2021 Milk Diarrhea 03/06/2019 Senna 05/21/2020 Dextrose 06/28/2021 Tetracycline Nausea Only 04/17/2019 Wheat Other (See Comments) 11/23/2017 Gastrointestinal distress Medications Medication Sig Dispensed Refills Start Date End Date Status b complex vitamins Capsule Take 1 capsule by mouth daily. With folic acid B-1,2,3,5,12 Biotin Active acetylcysteine (NAC ORAL) Take by mouth daily. Active Lactobac2-Bifido1- Strep therm. (VISBIOME) 112.5 billion cell CapsuleIndications :Small intestinal bacterial overgrowth,Irritab le bowel syndrome with diarrhea Take 3 capsules by mouth daily. 90 capsule 3 04/29/2019 Active Ciclesonide (OMNARIS) 50 mcg [place], Non-Aerosol INSTILL TWO SPRAYS IN EACH NOSTRIL TWICE A DAY 12.5 g 09/08/2019 Active castor oil Oil [place] Oil, See Instructions, Apply topically, 0 Refill(s) 01/18/2020 Active pyridoxine, vitamin B6, (B-6) 100 mg Tablet Daily, 0 Refill(s) 01/18/2020 Active ferrous bis-glycinate chelate (iron bisglycin chelate, bulk,) Powder by Misc.(Non-Drug; Combo Route) route. Active Thyroid, Pork, ([place] Thyroid) 15 mg Tablet Take 45 mg by mouth daily. 30mg and 15mg Active GLYCERIN, ADULT, RECT Place rectally. 06/28/2021 Active fluticasone propionate (Flonase) 50 mcg/actuation [place], Suspension 1 spray by Each Nare route daily. NEEDED 05/03/2021 Active EPINEPHrine 0.3 mg/0.3 mL Auto-Injector Inject 0.3 mLs into the muscle once as needed (allergic reaction ( tight throat, difficulty breathing, lightheaded)). 1 kit 3 07/27/2021 Active amino acids/protein supplement (AMINO ACIDS ORAL) Take by mouth daily. Active HYDROCHLORIC ACID, BULK, MISC by [employer].(Non-Drug; Combo Route) route. Active Vitamin B Complex-Vitamin C-Folic Acid (Nephrocap) 1 mg Capsule Take 1 capsule by mouth daily. Active nutritional supplement/fiber (PEPTIDE 1.0 ORAL) Take by mouth. Ac tive UNABLE TO FIND bio botanical Active enzymes,digestive (DIGESTIVE ENZYMES ORAL) Take by mouth. Active gabapentin (Neurontin) 100 mg Capsule 100 mg AM, 200 mg HS 90 capsule 12 01/31/2022 Active Additional Information Patient not taking.Reported on 07/24/2022 cyclobenzaprine (Flexeril) 5 mg Tablet Take 1 tablet by mouth nightly. 30 tablet 01/31/2022 Active Additional Information Patient not taking.Reported on 07/24/2022 baclofen (Lioresal) 10 mg Tablet TAKE ONE TABLET BY MOUTH THREE TIMES A DAY NEEDED FOR MUSCLE PAIN 06/28/2022 Active Lidoderm 5 % Adhesive Patch, Medicated APPLY ONE PATCH DIRECTED DAILY (12 HOURS ON; 12 HORUS OFF) 06/15/2022 Active prednisoLONE acetate (Pred-Forte) 1 % Drops, Suspension INSTILL ONE DROP IN THE LEFT EYE FOUR TIMES A DAY FOR 7 DAYS 05/18/2022 Active FLUoxetine (PROzac) 20 mg Capsule Take 60 mg by mouth every morning. 05/30/2022 Active NETWORK CONTROL TECHNICIAN Thyroid 30 mg Tablet Take 30 mg by mouth every morning. 07/09/2022 Active pantoprazole EC (Protonix) 20 mg Tablet, Delayed Release (E.C.) TAKE 1 TABLET (20MG) BY MOUTH DAILY 06/28/2022 Active thyroid ([place]) 30 mg Tablet Take 30 mg by mouth daily. Active celecoxib (CeleBREX) 200 mg Capsule Take 200 mg by mouth daily as needed. 08/15/2022 Active Active Problems Problem Noted Date Diagnosed Date Closed displaced comminuted fracture of shaft of left tibia 02/01/2021 Overview (02/01/2021): Added automatically from request for surgery [id number] Postoperative anemia due to acute blood loss ACL tear 01/09/2020 Tibia fracture 01/06/2020 Danny's thyroiditis 03/06/2019 Lower urinary tract symptoms (LUTS) 12/04/2018 History of nephrolithiasis 12/04/2018 Renal cyst, acquired 12/04/2018 NELSON (stress urinary incontinence, female) 2018 Cystocele, midline 12/04/2018 Disorder of muscle, ligament, and fascia 018 Pelvic floor dysfunction 03/01/2018 Chronic constipation 03/01/2018 Mixed stress and urge urinary incontinence 03/01 DJD (degenerative joint disease) of cervical spi ne 04/19/2016 Left ulnar fracture 02/16/2016 Family History Medical History Relation Comments Chronic [...] PM EST Sexual Orientation Not on file Last Filed Vital Signs [...] Mass Index 19.64 08/30/2022 10:00 AM EDT Plan of Treatment Scheduled Procedures Name Priority Associated Diagnoses Date/Ti me COLONOSCOPY, DIAGNOSTIC (WRV U 3.26) Encounter for colorectal cancer screening Health Maintenance Due Date Last Done Comments CT Colonography 1958 Colonoscopy 1958 Colorectal Cancer Screening 1958 FIT DNA 1958 FIT 1958 Sigmoidoscopy (10 year) with FIT yearly 1958 Sigmoidoscopy 1958 HIV screen 1976 Hepatitis C Screening 1976 Tdap adult 1977 Tetanus vaccine 1977 HPV test 1988 PAP Smear 1988 Breast Cancer Share Decision Needed 1998 Breast Cancer screening 1998 Zoster vaccine (1 of 2) 2008 Advance Directive 2013 Covid-19 Vaccine (1 - 2022-24 season) 2023 Bone Density Scan 2023 Pneumoccocal Vaccine: 65+ (1 of 1 - PCV) 2023 Influenza (Flu) vaccine (1 o f 1 - Influenza standard series) 07/27/2024 Medical Devices Implanted Type Area Rug Inspector Device Identifier Shelf Expiration Date Model / Serial / Lot Sammy Brito,Dg lt,Tropnt,5x2 00mm ([id number]) - [id number] Implanted:Qty : 2 on 01/06/2020 by Yolanda Still MD at [facility] IMPLANTS [employer] CECE 294.56 / / ScrewShz,Bln t,Tro,Pnt,5x1 25mm ([id number]) - [id number] Implanted:Qty : 2 on 01/06/2020 by Yolanda Still MD at [facility] IMPLANTS [employer] CECE 294.53 / / ScrewCarmelina,Katerine d,S-Tap,Ti,5x 36mm ([id number]) - [id number] Implanted:Qty : 1 on 01/08/2020 by Yolanda Still MD at [facility] IMPLANTS Left: Tibia [employer] - BECCA CECE 413.336 / / Plate,Prox,La t,Tib,9h,Lt,2 20mm ([id number]) - [id number] Implanted:Qty : 1 on 01/08/2020 by Yolanda Still MD at [facility] IMPLANTS Left: Tibia [employer] - BECCA CECE 222.225 / / Kwire,Thrd,Sp d,Pnt-Tp,2x28 0mm ([id number]) - [id number] Implanted:Qty : 2 on 01/08/2020 by Yolanda Still MD at [facility] IMPLANTS Left: Tibia [employer] - BECCA CECE 292.699 / / Screw,Crtx,St ap,3.5x60mm ([id number]) - [id number] Implanted:Qty : 1 on 01/08/2020 by Yolanda Still MD at [facility] IMPLANTS Left: Tibia [employer] - BECCA CECE 204.860 / / Screw,Crtx,St ap,3.5x65mm ([id number]) - [id number] Implanted:Qty : 1 on 01/08/2020 by Yolanda Still MD at [facility] IMPLANTS Left: Tibia [employer] - [employer]CCA CECE 204.865 / / Screw,Lck,Hea d,S-Tap,Ti,5x 26mm ([id number]) - [id number] Implanted:Qty : 3 on 01/08/2020 by Yolanda Still MD at [facility] IMPLANTS Left: Tibia [employer] - BECCA CECE 413.326 / / Screw,Lck,Hea d,S-Tap,Ti,5x 28mm ([id number]) - [id number] Implanted:Qty : 2 on 01/08/2020 by Yolanda Still MD at [facility] IMPLANTS Left: Tibia [employer] - [employer]CCA CECE 413.328 / / Screw,Lck,Hea d,S-Tap,Ti,5x 55mm ([id number]) - [id number] Implanted:Qty : 1 on 01/08/2020 by Yolanda Still MD at [facility] IMPLANTS Left: Tibia [employer] - [employer]CCA CECE 413.355 / / Screw,Lck,Hea d,S-Tap,Ti,5x 70mm ([id number]) - [id number] Implanted:Qty : 1 on 01/08/2020 by Yolanda Still MD at [facility] IMPLANTS Left: Tibia [employer] - [employer]CCA CECE 413.370 / / Screw,Ti,Stap ,5x14mm ([id number]) - [id number] Implanted:Qty : 1 on 01/08/2020 by Yolanda Still MD at [facility] IMPLANTS Left: Tibia [employer] - BECCA CECE 422.402 / / Advance Directives Documents on File Type Date Recorded Patient Quality Assurance Nurse Expl anation Personal Quality Assurance Nurse 11/08/2020 11:47 AM KD * Full Code (Latest Code Status on File) Date Activated Date Inactivated Comments 01/06/2020 8:23 PM 01/09/2020 6:59 PM Question Answer Comments Does patient have capacity to make decision: Yes Care Teams Government Minister Relationship Specialty Start Date End Date April Cummins APRN [address] [place] [address] PCP - General Internal Medicine 01/13/21
--- OUTSIDE RECORDS SUMMARY | 2024-06-27 15:13 | XMS_ITS | Encounter Summary ---
Author Organization [facility] Address [address] [place] [address] Care Team Providers Care Cigar Tobacco Processing Supervisor Name Role Phone Unknown, Provider Primary Care Provider [phone] Encounter Details Date Type Department Care Team (Late st Contact Info) Description 12/05/2016 Results Only [facility] [phone] April Serrano, PHYSICAL SCIENCE TECHNICIAN [address] [place], [place] [id number] Social History Tobacco Use Types Packs/Day Years Used Date Smoking Tobacco: Never Assessed Sex and Gender Information Value Date Recorded Sex Assigned at Not on file Gender Identity Not on file Sexual Orientation Not on file documented as of this encounter Plan of Treatment Not on file documented as of this encounter Procedures Procedure Name Priority Date/Time Associated Diagnosis Comments PAP TEST- RESULT ONLY Routine 12/05/2016 0:00 EST documented in this encounter Results * PAP TEST- RESULT ONLY (12/05/2016 0:00 EST) Pathology Report: CYTOPATHOLOGY REPORT Reports generated via electronic interface contain original data; however they are lacking the format of the original report. Caution should be taken when reading/interpreti ng unformatted reports. Name: ? KALYN KWAN ? Accession #: ? [id number] ? : ? 1960 (Age: 56) ??F ?Collect Date: ? 12/05/2016 ? Location: ? [facility] ? Receive Date: ? 12/07/2016 ? Provider: APRIL SERRANO PHYSICAL SCIENCE TECHNICIAN Copy to: ? Final Report SPECIMEN ADEQUACY ? Satisfactory for Evaluation - transformation zone component present - scant squamous epithelial component - obscuring contamination, possibly lubricant GENERAL CATEGORIZATION ? Negative for Intraepithelial Lesion or Malignancy ?? Last Menstrual Period: > 3 years ago Other: Additional clinical information: No history of abnormal Specimen/Source: ??Pap Test, Cervix, ThinPrep Imaging System with manual evaluation Document reviewed and electronically signed by: ? Edin Ellington, [place](ASCP) ? Report ??Date: 12/11/2016 12:53 HPV with Pap Test ? Date Ordered: ? 12/11/2016 ? Status: ?? Signed Out ?Date Complete: ? 12/12/2016 ? By: ??System Interface ? Date Reported: ? 12/12/2016 ? Interpretation RESULT: Negative for HPV. No E6 or E7 mRNA is detected from HPV types 16,18,31,33,35, 39,45,51,52,56,58, 59,66, and 68 by tool repair technician mediated amplification. Comments Document reviewed and electronically signed by: ? System Interface ? Report date: 12/12/2016 By the signature above, the attending physician certifies that he/she has personally conducted a gross and/or microscopic examination of the described specimens and rendered or confirmed the above diagnosis. End of Report [facility] 12/05/2016 12/07/2016 April Serrano PHYSICAL SCIENCE TECHNICIAN PATHOLOGY ORDERABLES [facility] [address] [place] [address] documented in this encounter Visit Diagnoses Not on filedocumented in this encounter Care Teams Cigar Tobacco Processing Supervisor Relationship Specialty Start Date End Date Unknown, Provider, PCP - General 08/08/16 02/20/19 documented as of this encounter
--- OUTSIDE RECORDS SUMMARY | 2024-06-27 15:13 | XMS_ITS | Encounter Summary ---
Author Organization [facility] Address [address] [place] [address] Care Team Providers Care Sheet Metal Erector Name Role Phone April Cummins Tanvir EXECUTIVE CHEF Primary Care Provider Reason for Visit * Reason Comments New Patient Visit Incontinence/UTIs * Referral (Routine) - Closed Specialty Diagnoses / Procedures Referred By Rafael mart Referred To Contact Pelvic Medicine Diagnoses Extravasation of urine Irritable bowel syndrome with diarrhea Gale Gong, [address] [place] [address] [facility] Pelvic Medicine [facility] [address] [place] [address] Referral ID Status Reason Start Date Expiration Date Visits Re quested Visits Authorized [id number] Closed 1 1 Encounter Details Date Type Department Care Team (Latest Contact Info) Description 02/21/2019 11:15 EDT Office Visit [facility] Pelvic Medicine and Reconstructive Surgery - Medical Office Building [facility] [address] [place] [address] Lily Campos MD Mixed urge and stress incontinence (Primary Dx); Frequent UTI; Rectocele; Vaginal atrophy Social History Tobacco Use Types Packs/Day Years [...] as of this encounter Progress Notes * Lily Campos MD, MD - 02/21/2019 1115 EDT H&P CC: Urinary incontinence HPI: Kalyn Kwan is a 58 y.o. postmenopausal woman referred by Gale Rodriguez, for consultation, evaluation, and treatment recommendations regarding urinary incontinence. Reports urinary urgency, bladder sensitivity. Reports mixed urinary incontinence symptoms. Does have UUI, unable to hold. Has tried PT, is trying to suppress urge, has only had 1 appointment. Does have leakage with cough, laugh, sneeze. Does feel she empties her bladder fully. Is using compoundedEstriol cream 0.5 g 2-3 times per week, placing digitally. She started this recently and does thinkthis has significantly helped bladder symptoms. However, wonders if this caused a yeast infection (discharge with odor), that resolved after OTC yeast infection treatment. Has not tried any other anticholinergic medications. Recently disagnosed with Strep viridians 10-50 K UTI at [facility], treated with antibiotics. Recent UA 11/08/18 showed small LE, otherwise neg. UA 11/20/18 was neg. Rare prior UTIs, including UTI at the time of prior nephrolithiasis 2014 treated with stent, was uncomfortable with the stent but UTI eventually resolved. Reports extreme thirst, drinks water frequently. Currently having some urinary urgency and even UUI. If drinks green tea, has nocturia. Worse with Stevia as well. Reports 4-5 Liters water intake daily. Has well water, but uses refrigerator filter for her water. Has a history of ANIBAL, was given mouthguard but unable to tolerate it. Did help her nocturia when she was using it. She also reports significant concerns regarding her thyroid, adrenals, possible systemic yeast. Review of Systems A 14 point review of systems was obtained (see scanned documents) and with multiple positives as noted. PMH PSH Past Medical History: Diagnosis Date ??? Nephrolithiasis 2014 treated with stent Past Surgical History: Procedure Laterality Date ??? APPENDECTOMY 1977 open appendectomy for ruptured appendicitis ??? BONE GRAFT 2006 tibia ??? CERVICAL FUSION 2008 C4,5,6 ??? SECTION, LOW TRANSVERSE 1994 ??? TIBIA FRACTURE SURGERY 2005 Social History Family History Social History Tobacco Use ??? Smoking status: Never Smoker ??? Smokeless tobacco: Never Used ??? Tobacco comment: Childhood second hand smoke exposure Substance Use Topics ??? Alcohol use: No Frequency: Never Family History Problem Relation Age of Onset ??? Emphysema Mother ??? Thyroid Disease Mother thyroidectomy ??? Emphysema Father ??? Other Inherited Genetic or Chromosomal Disorder Father brain tumor POB/Biological Technical Officer Hx: See HPI. , s/p C/S x 1 for face presentation (largest baby 7#, 8 oz.). Medications Current Outpatient Medications: acetylcysteine (F-HWYDTZ-M-CYSTEINE MISC) ascorbate calcium (RIKI-C ORAL) ascorbic acid, vitamin C, (VITAMIN C) 250 mg tablet B complex-vitamin C-folic acid 1 mg tablet ESTRIOL, BULK, MISC IODINE ORAL UNABLE TO FIND No current facility-administered medications for this visit. Allergies No Known Allergies Objective: Physical Exam There were no vitals taken for this visit. General Appearance: well-developed, normal body habitus Eyes: Extraocular movements intact. Sclera non-icteric. HENT: Normocephalic, atraumatic. Cardiovascular: Regular rate. Respiratory: Respiratory effort normal. Lymphatic: No inguinal lymphadenopathy Abdomen: Nontender, nondistended, no hernias. Well-healed Pfannenstiel incision, as well as transverse RLQ incision. Musculoskeletal/Extremities: Normal Skin: No rashes, lesions, or ulcers Neuro/Psych: Normal orientation, mood and affect Genitourinary Exam: External Genitalia: Normal external genitals, urethral meatus, perineum. Bartholin's, urethral, and Elmira's glands: Normal Urethra: Normal estrogen status. No masses, tenderness or scarring Bladder: No masses, tenderness, or distention Vulva:/Perineum: Normal Vagina: Normal estrogen status, normal ruggae. No discharge, no lesions. Hypermobile urethra, no significant cystocele. Also with small asymptomatic Stage II rectocele. Montgomery well-supported. See POP-Q. Cervix: Normal appearance. No lesions, discharge or tenderness. Deviated posteriorly. Uterus: Normal size, contour, and position. No tenderness. Very small. Adnexa/Parametria: No masses, tenderness, or nodularity Perineal Sensation: Normal Rectal Exam: Deferred Urethral Hypermobility: Present Assessment Method: Visualization and point Aa ++Positive empty bladder stress test. Kegel: Not assessed Pelvic floor muscle tenderness: Absent POP-Q: GH (without strain): 2 GH (with strain): 3 PB (without strain): 4 PB (with strain): 4 TVL: 11 Aa: 0 Ba: 0 C: -6.5 D: -10.5 Ap: 0 Bp: 0 During this exam, I was chaperoned by: Dionne Emmanuel LPN. Ultrasound for PVR: 40 ml Results for orders placed or performed in visit on 02/21/19 POCT URINE DIPSTICK, CLINITEK Result Value Ref Range Color YELLOW Yellow Clarity, UA Clear Clear Glucose Neg Neg Bilirubin Neg Neg Ketones Neg Neg Specific [place] <=1.005 1.001 - 1.035 Blood Neg Neg pH 6.5 4.6 - 8.0 Protein Neg Neg Urobilinogen 0.2 0.2 - 1.0 mg/dL Nitrite Neg Neg Leuk Esterase Neg Neg Tech ID [id number] Impression & Plan: 58 y.o. woman with Mixed urinary incontinence with demonstrable stress incontinence via empty bladder stress test, vaginal atrophy. Asymptomatic Stage II rectocele. -Discussed etiologies and treatment options. -Continue Estriol -Reduce bladder irritants, discussed reduction of volume of water intake -Continue PT -I did discuss other options for MARTITA, including incontinence pessary trial or surgery for stress incontinence, and possible initiation of anticholinergic medication for urgency incontinence. At this point she will continue with PT and will consider the other options for the future. -She had demonstrable NELSON on her exam, but would still recommend bladder testing via cystometrogram(CMG) Return to clinic in 3 months or prn. Lily Campos MD 02/21/2019 documented in this encounter Plan of Treatment Not on file documented as of this encounter Procedures Procedure Name Priority Date/Time Associated Diagnosis Comments POCT URINE DIPSTICK, CLINITEK Routine 02/21/2019 12:06 EDT Frequent UTI documented in this encounter Results * POCT URINE DIPSTICK, CLINITEK (02/21/2019 12:06 EDT) Color YELLOW Yellow 02/21/2019 12:12 T [facility] Clarity, UA Clear Clear 02/21/2019 12:12 T [facility] Glucose Neg Neg 02/21/2019 12:12 T [facility] Bilirubin Neg Neg 02/21/2019 12:12 [facility] Ketones Neg Neg 02/21/2019 12:12 [facility] Specific [place] <=1.005 1.001 - 1.035 02/21/2019 12:12 T [facility] Blood Neg Neg 02/21/2019 12:12 [facility] pH 6.5 4.6 - 8.0 02/21/2019 12:12 [facility] Protein Neg Neg 02/21/2019 12:12 [facility] Urobilinogen 0.2 0.2 - 1.0 mg/dL 02/21/2019 12:12 [facility] Nitrite Neg Neg 02/21/2019 12:12 [facility] Leuk Esterase Neg Neg 02/21/2019 12:12 [facility] contact center rep ID [id number] 02/21/2019 12:12 [facility] Comment:Test performed at [facility] Urine specimen (specimen) URINE / Unknown 02/21/2019 12:06 EDT 02/21/2019 12:12 EDT Lily Campos MD POINT OF CARE TEST ORDERABLES [facility] [address] [place] [address] documented in this encounter Visit Diagnoses Diagnosis Mixed urge and stress incontinence- Primary Mixed incontinence urge and stress (male)(female) Frequent UTI Urinary tract infection, site not specified Rectocele Vaginal atrophy Postmenopausal atrophic vaginitis documented in this encounter Historical Medications * This list may reflect changes made after this encounter. Medication Sig Dispensed Refills Start Date End Date UNABLE TO FIND Take 1 tablet by mouth daily. Med Name: Phyto-ADR (Adrenal support) B complex-vitamin C-folic acid 1 mg tablet Take 1 tablet by mouth at bedtime. ESTRIOL, BULK, MISC Place 0.5 mg vaginally twice a week. ascorbate calcium (RIKI-C ORAL) Take 1 tablet by mouth daily. IODINE ORAL Take 2.5 mg by mouth daily. ascorbic acid, vitamin C, (VITAMIN C) 250 mg tablet Take 250 mg by mouth daily. acetylcysteine (R-KZLJEY-K-CYSTEINE MISC) Take 600 mg by mouth daily. added in this encounter Care Teams Sheet Metal Erector Relationship Specialty Start Date End Date April Cummins NP [address] [place] [address] PCP - General 02/21/19 documented as of this encounter
--- OUTSIDE RECORDS SUMMARY | 2024-06-27 15:13 | XMS_ITS | Encounter Summary ---
Author Organization [facility] Address [address] [place] [address] Care Team Providers Care Backup Operator Name Role Phone April Cummins CORPORATE GIVING MANAGER Primary Care Provider [phone] Encounter Details Date Type Department Care Team (Late st Contact Info) Description 04/26/2020 Lab Requisition [facility] Pathology & Laboratory Medicine - [facility] [address] [place] [address] Outr Resulting Lab, Provider Social History Tobacco [...] Procedure Name Priority Date/Time Associated Diagnosis Comments THYROPEROXIDASE ANTIBODY Routine 04/26/2020 12:57 EDT ANTI THYROGLOBULIN Routine 04/26/2020 12 :57 EDT IMMUNOGLOBULINS Routine 04/26/2020 12:57 EDT T3 FREE Routine 04/26/2020 12:57 EDT documented in this encounter Results * T3 FREE (04/26/2020 12:57 EDT) T3, Free 3.1 2.8 - 5.3 pg/mL 04/26/2020 21:33 EDT [facility] Blood VENOUS BLOOD / Unknown 04/26/2020 12:57 EDT 04/26/2020 21:02 EDT Provider Outr Resulting Lab CHEMISTRY & BLOOD GAS ORDERABLES Performing Organization Address City/[facility]/ZIP Co de Phone Number [facility] [address] [place] [address] * (ABNORMAL) THYROPEROXIDASE ANTIBODY (04/26/2020 12:57 EDT) Pathologist [facility] Thyroperoxidase Ab 771(H) <=60 U/mL 2019 15:10 EDT [facility] Blood VENOUS BLOOD / Unknown 04/26/2020 12:57 EDT 04/26/2020 21:02 EDT Provider Outr Resulting Lab CHEMISTRY & BLOOD GAS ORDERABLES Performing Organization Address [facility]/ZIP Co de Phone Number [facility] [address] [place] [address] * (ABNORMAL) ANTI THYROGLOBULIN (04/26/2020 12:57 EDT) Pathologist [facility] Anti-Thyroglob ulin 169(H) <=60 U/mL 04/28/2020 16:04 EDT [facility] Blood VENOUS BLOOD / Unknown 04/26/2020 12:57 EDT 04/26/2020 21:02 EDT Provider Outr Resulting Lab CHEMISTRY & BLOOD GAS ORDERABLES Performing Organization Address City/[facility]/ZIP Co de Phone Number [facility] [address] [place] [address] * (ABNORMAL) IMMUNOGLOBULINS (04/26/2020 12:57 EDT) IgG 585(L) 610-1,616 mg/dL 04/27/2020 10:00 EDT [facility] IgA 130 85 - 499 mg/dL 04/27/2020 10:00 EDT [facility] IgM 60 35 - 242 mg/dL 04/27/2020 10:00 EDT [facility] Blood VENOUS BLOOD / Unknown 04/26/2020 12:57 EDT 04/26/2020 21:02 EDT Provider Outr Resulting Lab CHEMISTRY & BLOOD GAS ORDERABLES Performing Organization Address City/State/[facility] Co de Phone Number [facility] [address] [place] [address] documented in this encounter Visit Diagnoses Not on filedocumented in this encounter Care Teams Backup Operator Relationship Specialty Start Date End Date April Cummins, KEATON [address] [place] [address] PCP - General 02/21/19 documented as of this encounter
--- OUTSIDE RECORDS SUMMARY | 2024-06-27 15:13 | XMS_ITS | Encounter Summary ---
Author Organization [facility] [place] [address] Care Team Providers Care Community Development Aide Name Role Phone Rosita Cumminsyce Tanvir HENLEY Primary Care Provider [phone] Encounter Details Date Type Department Care Team (Late st Contact Info) Description 08/30/2022 Interpretation Only Operating Room [place] [address] Unknown None Social History Tobacco Use Types Packs/Day Years [...] Procedure Name Priority Date/Time Associated Diagnosis Comments APD OR ENDOSCOPY Routine 08/30/2022 documented in this encounter Results * APD OR Endoscopy (08/30/2022) Anatomical Region Laterality Modality Other 08/30/2022 Narrative 08/30/2022 12:00 AM EDT Photographs - Images Procedure Note Unknown - 08/31/2022 Photographs - Images Unknown EA IMAGES documented in this encounter Visit Diagnoses Not on filedocumented in this encounter Care Teams Community Development Aide Relationship Specialty Start Date End Date April Cummins, KALE [address] [place] [address] PCP - General Internal Medicine 01/13/21 documented as of this encounter
--- OUTSIDE RECORDS SUMMARY | 2024-06-27 15:14 | XMS_ITS | Encounter Summary ---
Author Organization [place] [address] Care Team Providers Care Insurance Law Specialist Name Role Phone April Cummins Tanvir HENLEY Primary Care Provider [phone] Reason for Referral * Physical Therapy (Routine) - Specialty Diagnoses / Procedures Referred By Rafael mart Referred To Contact Diagnoses Spondylosis of cervical region without myelopathy or radiculopathy Amando Mcfarland MD [facility] [place] [address] Referral ID Status Reason Start Date Expiration Date V isits Requested Visits Authorized [id number] Evaluate and Treat 02/24/2021 08/23/2021 1 1 Reason for Visit * Reason Comments Cervicalgia with right arm probl em * Consultation (Routine) - Closed Specialty Diagnoses / Procedures Referred By Rafael mart Referred To Contact [facility] Diagnoses Injury of cervical spinal cord, subsequent encounter Spine - Cervical foraminal stenosis/ MRI 01/04/21 in [facility]/ ?CT *AMP [place] [address] [facility] [address] Referral ID Status Reason Start Date Expiration Date V isits Requested Visits Authorized [id number] Closed Consult, Test & Treat 02/01/2021 02/01/2022 1 1 Encounter Details Date Type Department Care Team (Latest Contact Info) Description 02/24/2021 10:20 AM EDT Office Visit [facility] at [facility] [place] [address] Amando Mcfarland MD [facility] [place] [address] Spondylosis of cervical region without myelopathy or radiculopathy Social History Tobacco Use Types Packs/Day Years [...] documented in this encounter Progress Notes * Amando Mcfarland MD - 02/24/2021 10:20 AM EDT Chief complaint: Neck pain History of present illness: Ms. Burgos is a 60-year-old female whom I am seeing in consultation for Dr. Jc in regards to her right-sided neck pain that radiates behind her right ear and to her rightocciput. She has had neck pain on and off for many years and underwent a C4-C6 ACDF in 2007 in [place] for myelopathic symptoms. She did well with that. [...] many years. She feels as though her secondary social studies teacher strength is decreased some lately and she is dropping items somewhat more frequently, though her fine motor skills aregood. 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 This work has become harder to do [...] at the ankles. Spurling's negative bilaterally. She is a positive Vish sign consistently on the right [...] There issignal change in the cord at C4- C5 but no compression at this level which has been decompressed andfused. At C6- C7, she is relatively severe bilateral foraminal narrowing. [...] compression, and I do not think that iscurrently symptomatic. In terms of treating her neck [...] Associated Diagnoses Orde r Schedule Referral to Physical Therapy Outpatient Referral Routine Spondylosis of cervical region without myelopathy or radiculopathy Ordered: 02/24/2021 documented as of this encounter Visit Diagnoses Diagnosis Spondylosis of cervical region without myelopathy or radiculopathy Cervical spondylosis without myelopathy documented in this encounter Care Teams Insurance Law Specialist Relationship Specialty Start Date End Date April Cummins APRN [address] [place] [address] PCP - General Internal Medicine 01/13/21 documented as of this encounter
--- OUTSIDE RECORDS SUMMARY | 2024-06-27 15:14 | XMS_ITS | Encounter Summary ---
Author Organization [facility] [place] [address] Care Team Providers Care Service Center Coordinator Name Role Phone Suasn Elise Arleth SHEETS Primary Care Provider [phone] Reason for Visit * - Closed Specialty Diagnoses / Procedures Referred By Rafael mart Referred To Contact Procedures Film Library- Storage Only DX Spine April Cummins, TUBER OPERATOR [address] [place] [address] Referral ID Status Reason Start Date Expiration Date Visits Re quested Visits Authorized [id number] Closed 02/01/2021 02/01/2022 1 1 Encounter Details Date Type Department Care Team (Late st Contact Info) Description 12/21/2020 Ancillary Procedure [place] [address] April Cummins, TUBER OPERATOR [address] [place] [address] Social History Tobacco Use Types Packs/Day Years [...] Procedure Name Priority Date/Time Associated Diagnosis Comments FILM LIBRARY STORAGE ONLY DX SPINE Routine 12/21/2020 12:00 AM EST documented in this encounter Results * Film Library- Storage Only DX Spine (12/21/2020 12:00 AM EST) Narrative DENISE - 02/01/2021 3:45 PM EST This exam is auto-finalizing. It's purpose is for storage only. April Cummins APRN IMCyndee FILM LIBRARY ORD ERABLES Performing Organization Address City/State/[facility] Co de Phone Number [place], [place] documented in this encounter Visit Diagnoses Not on filedocumented in this encounter Care Teams Service Center Coordinator Relationship Specialty Start Date End Date Susan Elise [place] PCP - General Naturopathic Medicine 05/21/20 01/12/21 documented as of this encounter
--- OUTSIDE RECORDS SUMMARY | 2024-06-27 15:14 | XMS_ITS | Encounter Summary ---
Author Organization [facility] Address [facility] [place] [address] Care Team Providers Care Individual Pension Adviser Name Role Phone Susan Elise Arleth SHEETS Primary Care Provider [phone] Encounter Details Date Type Department Care Team (Late st Contact Info) Description 05/21/2020 1:00 PM EDT Office Visit Physical Therapy at [facility] [address] [place] [address] Jinny Harkins, PT [facility] PHYSICAL MEDICINE & [place] [address] Closed displaced comminuted fracture of shaft of left tibia with routine healing, subsequent encounter Social History Tobacco Use Types Packs/Day [...] as of this encounter Miscellaneous Notes * Treatment - Therapy - Jinny Harkins, PT [...] crutches and is WBAT. Objective: Therex: Strength/Endurance/ROM (03647) 15 min ?? Extensive education on the importance of equal weight bearing and to work on this when going from sit to stand and when standing and to [...] encounter documented in this encounter Care Teams Individual Pension Adviser Relationship Specialty Start Date End Date Susan Elise [place] PCP - General Naturopathic Medicine 05/21/20 01/12/21 documented as of this encounter
--- OUTSIDE RECORDS SUMMARY | 2024-06-27 15:14 | XMS_ITS | Encounter Summary ---
[place] [address] Care Team Providers Care Campground Attendant Name Role Phone April Cummins APRN Primary Care Provider [phone] Reason for Visit * Reason Comments Medication Refill Encounter Details Date Type Department Care Team (Late st Contact Info) Description 12/31/2020 [place] [address] Rosemary Ray [facility] [place] [address] Social History Tobacco Use Types Packs/Day Years [...] on filedocumented in this encounter Care Teams Campground Attendant Relationship Specialty Start Date End Date April Cummins APRN [address] [place] [address] PCP - General Internal Medicine 01/13/21 documented as of this encounter
--- OUTSIDE RECORDS SUMMARY | 2024-06-27 15:14 | XMS_ITS | Encounter Summary ---
Author [facility] [place] [address] Care Team Providers Care Claim Representative Name Role Phone Susan Elise Arleth SHEETS Primary Care Provider [phone] Encounter Details Date Type Department Care Team (Late st Contact Info) Description 2020 [place] [id number] Joseline Lucero PA [facility] DR [place] [address] Social History Tobacco Use Types Packs/Day Years [...] encounter Miscellaneous Notes * Telephone Encounter - Shama Rogel - 2020 9:26 AM EST Pt would like PT referral to be sent to [facility] at [phone] Referral was sent as requested no further question or concerns at this time. documented in this encounter Plan of Treatment Scheduled Procedures Name Priority Associated Diagnoses Date/Ti me COLONOSCOPY, DIAGNOSTIC (WRV U 3.26) Encounter for colorectal cancer screening documented as of this encounter Visit Diagnoses Not on filedocumented in this encounter Care Teams Claim Representative Relationship Specialty Start Date End Date Susan Elise [place] PCP - General Naturopathic Medicine 05/21/20 01/12/21 documented as of this encounter
--- OUTSIDE RECORDS SUMMARY | 2024-06-27 15:14 | XMS_ITS | Encounter Summary ---
[place] [address] Care Team Providers Care Hunting Guide Name Role Phone April Cummins MACHINE ROUGH ROUNDER Primary Care Provider Encounter Details Date Type Department Care Team (Late st Contact Info) Description 05/10/2022 Ancillary Procedure [place] [address] April Cummins, MACHINE ROUGH ROUNDER [address] [place], [place] [id number] Social History Tobacco Use Types Packs/Day Years [...] Associated Diagnosis Comments FILM LIBRARY STORAGE ONLY CT ABDOMEN Routine 05/10/2022 12:00 AM EDT documented in this encounter Results * Film Library- Storage Only CT Abdomen (05/10/2022 12:00 AM EDT) Narrative RAD - 05/24/2022 8:53 AM EDT This exam is auto-finalizing. It's purpose is for storage only. April Cummins APRN IMG FILM LIBRARY ORD ERABLES [place], [place] documented in this encounter Visit Diagnoses Not on filedocumented in this encounter Care Teams Hunting Guide Relationship Specialty Start Date End Date April Cummins APRN [address] [facility] [place] [address] PCP - General Internal Medicine 01/13/21 documented as of this encounter
--- OUTSIDE RECORDS SUMMARY | 2024-06-27 15:14 | XMS_ITS | Encounter Summary ---
[place] [address] Care Team Providers Care Engineer Chief Name Role Phone April Cummins RAW STOCK MACHINE FEEDER Primary Care Provider [phone] Encounter Details Date Type Department Care Team (Late st Contact Info) Description 06/28/2021 Ancillary Procedure [place] [address] April Cummins, RAW STOCK MACHINE FEEDER [address] [place], [place] [address] Social History Tobacco Use Types Packs/Day Years [...] Diagnosis Comments FILM LIBRARY STORAGE ONLY CT CHEST ABDOMEN PELVIS Routine 06/28/2021 12:00 AM EDT documented in this encounter Results * Film Library- Storage Only CT Chest Abdomen Pelvis (06/28/2021 12:00 AM EDT) Narrative RAD - 05/26/2022 11:07 AM EDT This exam is auto-finalizing. It's purpose is for storage only. April Cummins APRN IMG FILM LIBRARY ORD ERABLES [place], [place] documented in this encounter Visit Diagnoses Not on filedocumented in this encounter Care Teams Engineer Chief Relationship Specialty Start Date End Date April Cummins APRN [address] [place] [address] PCP - General Internal Medicine 01/13/21 documented as of this encounter
--- OUTSIDE RECORDS SUMMARY | 2024-06-27 15:14 | XMS_ITS | Encounter Summary ---
Author Organization [facility] Address [facility] [place] [address] Care Team Providers Care Information [employer] Name Role Phone Susan Elise Arleth SUDEEP Primary Care Provider [phone] Encounter Details Date Type Department Care Team (Latest Contact Info) Description 07/23/2020 10:14 AM EDT - 07/23/2020 11:59 PM EDT Hospital Encounter XRay at [address] [place] [address] Yolanda Still MD [facility] [place] [address] Closed displaced comminuted fracture of shaft of left tibia with routine healing, subsequent encounter; Right foot pain Discharge Disposition: Home Social History Tobacco Use [...] Refills Start Date End Date ferrous bis-glycinate chelate (iron bisglycin chelate, bulk,) Powder by [facility].(Non-Drug; Combo Route) route. Thyroid, Pork, (Jeannette Thyroid) 15 mg Tablet Take 45 mg by mouth daily. 30mg and 15mg castor oil Oil [place] Oil, See Instructions, Apply topically, 0 Refill(s) 01/18/2020 pyridoxine, vitamin B6, (B-6) 100 mg Tablet Daily, 0 Refill(s) 01/18/2020 Ciclesonide (OMNARIS) 50 mcg [place], Non-Aerosol INSTILL TWO SPRAYS IN EACH NOSTRIL TWICE A DAY 12.5 g 09/08/2019 Ceiyfpbo6-Pskwxs0-Tyli p therm. (VISBIOME) 112.5 billion cell CapsuleIndications:Sma ll intestinal bacterial overgrowth,Irritable bowel syndrome with diarrhea Take 3 capsules by mouth daily. 90 capsule 3 04/29/2019 b complex vitamins Capsule Take 1 capsule by mouth daily. With folic acid B-1,2,3,5,12 Biotin acetylcysteine (NAC ORAL) Take by mouth daily. naproxen sodium (ALEVE) 220 mg Capsule Take by mouth. 02/2022 omega 7-ftl-wnm-fish oil (Fish Oil) 100-160-1,000 mg Capsule Take by mouth. 01/18/2020 01/27/2022 oxyCODONE (Roxicodone) 5 mg TabletIndications:Clos ed displaced comminuted fracture of shaft of left tibia with routine healing, subsequent encounter Take 1 tablet by mouth every 6 hours as needed for Pain. 24 tablet 01/28/2020 01/27/2022 ibuprofen (Advil;Motrin) 200 mg Tablet Take 200 mg by mouth every 6 hours as needed for Pain. 01/27/2022 acetaminophen (Tylenol) 500 mg Tablet Take 2 tablets by mouth every 6 hours. 90 tablet 1 01/09/2020 01/27/2022 gabapentin (Neurontin) 300 mg Capsule Take 1 capsule by mouth 3 times daily. 60 capsule 01/09/2020 01/27/2022 HYDROmorphone (Dilaudid) 2 mg Tablet Take 1-2 tablets by mouth every 4 hours as needed for Pain (1 tab for moderate pain (4-6) or 2 tabs for severe pain (7-10)). 40 tablet 01/09/2020 01/27/2022 polyethylene glycol (Miralax) 17 gram Powder in Packet Take 17 g by mouth 2 times daily. 14 each 01/09/2020 04/05/2022 senna-docusate (Pericolace) 8.6-50 mg Tablet Take 2 tablets by mouth 2 times daily. 60 tablet 01/09/2020 01/27/2022 GLUTATHIONE ORAL Take by mouth daily. 09/2022 IODINE ORAL Take 2.5 mg by mouth daily. 04/05/2022 documented as of this encounter Plan of Treatment Scheduled Procedures Name Priority Associated Diagnoses Date/Ti me COLONOSCOPY, DIAGNOSTIC (WRV U 3.26) Encounter for colorectal cancer screening documented as of this encounter Procedures Procedure Name Priority Date/Time Associated Diagnosis Comments XR TIBIA FIBULA LEFT Routine 07/23/2020 10:37 AM EDT Closed displaced comminuted fracture of shaft of left tibia with routine healing, subsequent encounter XR ANKLE MIN 3 VIEWS RIGHT Routine 07/23/2020 10:37 AM EDT Right foot pain documented in this encounter Results * XR Ankle Min 3 views Right (Generic) (07/23/2020 10:37 AM EDT) Anatomical Region Laterality Modality Ankle Right Digital Radiogra phy Impressions 07/23/2020 11:06 AM EDT Healed fracture deformity of the distal tibia and degenerative changes at the ankle joint. No acute fractures seen. Thank you for letting us participate in the care of this patient. For questions regarding this report, please contact the number below. ? Narrative 07/23/2020 11:06 AM EDT EXAMINATION: XR ANKLE MIN 3 VIEWS RIGHT (GENERIC) CLINICAL HISTORY: Pain in right ankle TECHNIQUE: 3 views RIGHT ankle COMPARISON: None FINDINGS: Healed fracture deformity of the distal tibia. Marginal productive changes along the anterior and medial aspects of the ankle joint. The ankle joint space is relatively well-preserved. Soft tissue swelling is noted along the anterior aspect of the ankle joint. Procedure Note Benjamin Figueroa MD - 07/23/2020 EXAMINATION: XR ANKLE MIN 3 VIEWS RIGHT (GENERIC) CLINICAL HISTORY: Pain in right ankle TECHNIQUE: 3 views RIGHT ankle COMPARISON: None FINDINGS: Healed fracture deformity of the distal tibia. Marginal productive changesalong the anterior and medial aspects of the ankle joint. The ankle joint spaceis relatively well-preserved. Soft tissue swelling is noted along theanterior aspect of the ankle joint. IMPRESSION Healed fracture deformity of the distal tibia and degenerative changes atthe ankle joint. No acute fractures seen. Thank you for letting us participate in the care of this patient. Forquestions regarding this report, please contact the number below. Electronically signed by: Benjamin Figueroa [facility]([phone]), at 07/23/2020 11:06 AM Yolanda Still MD IMG DX ORDERABLES * XR Tibia Fibula Left (Generic) (07/23/2020 10:37 AM EDT) Anatomical Region Laterality Modality Left Digital Radiogra phy Impressions 07/23/2020 11:01 AM EDT Healed proximal fractures of the tibia and fibula. Intact fixation hardware. Thank you for letting us participate in the care of this patient. For questions regarding this report, please contact the number below. ? Electronically signed by: Benjamin Figueroa [facility] ([phone]), at 07/23/2020 11:01 AM Narrative 07/23/2020 11:01 AM EDT EXAMINATION: XR TIBIA FIBULA LEFT (GENERIC) CLINICAL HISTORY: left tib/fib fx f/u on healing TECHNIQUE: 2 views LEFT tibia and fibula COMPARISON: May 21, 2020 FINDINGS: Evidence of further healing of the proximal tibial fracture with increased sclerosis and obliteration of the fracture line. The alignment is unchanged. The lateral fixation hardware is intact. Osseous bridging of the proximal fibular fracture. Procedure Note Benjamin Figueroa MD - 07/23/2020 EXAMINATION: XR TIBIA FIBULA LEFT (GENERIC) CLINICAL HISTORY: left tib/fib fx f/u on healing TECHNIQUE: 2 views LEFT tibia and fibula COMPARISON: May 21, 2020 FINDINGS: Evidence of further healing of the proximal tibial fracture withincreased sclerosis and obliteration of the fracture line. The alignment isunchanged. The lateral fixation hardware is intact. Osseous bridging of the proximalfibular fracture. IMPRESSION Healed proximal fractures of the tibia and fibula. Intact fixationhardware. Thank you for letting us participate in the care of this patient. Forquestions regarding this report, please contact the number below. Electronically signed by: Benjamin Figueroa [facility]([phone]), at 07/23/2020 11:01 AM Yolanda Still MD IMG DX ORDERABLES documented in this encounter Visit Diagnoses Diagnosis Closed displaced comminuted fracture of shaft of left tibia with routine healing, subsequent encounter Right foot pain Pain in limb documented in this encounter Care Teams Information Clerk [employer] Relationship Specialty Start Date End Date Susan Elise ND PCP - General Naturopathic Medicine 05/21/20 01/12/21 documented as of this encounter
--- OUTSIDE RECORDS SUMMARY | 2024-06-27 15:14 | XMS_ITS | Encounter Summary ---
Author Organization [facility] [place] [address] Care Team Providers Care Commercial Art Instructor Name Role Phone April Cummins KALE Primary Care Provider [phone] Encounter Details Date Type Department Care Team (Latest Contact Info) Description 02/24/2021 9:08 AM EDT - 02/24/2021 11:59 PM EDT Hospital Encounter XRay at [address] [place] [address] Amando Mcfarland MD [facility] [place] [address] Low back pain, non-specific Discharge Disposition: Home Social History Tobacco Use [...] chelate (iron bisglycin chelate, bulk,) Powder [place] [facility]Non-Drug; Combo Route) route. Thyroid, Pork, ([place] Thyroid) 15 mg Tablet Take 45 mg by mouth daily. 30mg and 15mg castor oil Oil [place] Oil, See Instructions, Apply topically, 0 Refill(s) 01/18/2020 pyridoxine, vitamin B6, (B-6) 100 mg Tablet Daily, 0 Refill(s) 01/18/2020 Ciclesonide (OMNARIS) 50 mcg [place], Non-Aerosol INSTILL TWO SPRAYS IN EACH NOSTRIL TWICE A DAY 12.5 g 09/08/2019 Xjztzyln7-Rtgbcu1-Kmkl p therm. (VISBIOME) 112.5 billion cell CapsuleIndications:Sma ll intestinal bacterial overgrowth,Irritable bowel syndrome with diarrhea Take 3 capsules by mouth daily. 90 capsule 3 04/29/2019 b complex vitamins Capsule Take 1 capsule by mouth daily. With folic acid B-1,2,3,5,12 Biotin acetylcysteine (NAC ORAL) Take by mouth daily. Lactobacil 2-S.thermo-Bifido 1 (LACTOBAC #2-BIFIDO #1-S. THERM ORAL) Take 3 capsules by mouth. 01/17/2021 07/24/2022 naproxen sodium (ALEVE) 220 mg Capsule Take by mouth. 02/2022 omega 3-qeh-eog-fish oil (Fish Oil) 100-160-1,000 mg Capsule Take [...] Name Priority Date/Time Associated Diagnosis Comments XR CERVICAL SPINE 2 OR 3 VIEWS Routine 02/24/2021 9:21 AM EDT Low back pain, non-specific documented in this encounter Results * XR Cervical Spine 2 or 3 Views (02/24/2021 9:21 AM EDT) Anatomical Region Laterality Modality C-spine N/A Digital Radiogra phy Impressions 02/24/2021 10:42 AM EDT C4 C6 ACDF without radiographic evidence of hardware complication. No dynamic instability. Thank you for letting us participate in the care of this patient. ??If you are a health care provider and have any questions regarding this report, please contact the number below. ??For patients who have questions please contact the health youth care specialist that requested your imaging first. ? Electronically signed by: Gordon Raygoza MD, [facility] ([phone]), at 02/24/2021 10:42 AM Narrative 02/24/2021 10:42 AM EDT EXAMINATION: XR CERVICAL SPINE 2 OR 3 VIEWS CLINICAL HISTORY: Upright Ap&LAT flex/ ext (3 views) for surgical eval TECHNIQUE: 3 views of the cervical spine COMPARISON: December 2015 FINDINGS: Status post C4-C6 ACDF. Similar complete fusion across C4-C5. Similar partial fusion across C5-C6. Hardware is intact and unchanged in alignment. No spondylolisthesis with flexion or extension. Similar partial disc height loss at C3-C4 and C6-C7. No prevertebral soft tissue swelling. Procedure Note Gordon Raygoza MD - 02/24/2021 EXAMINATION: XR CERVICAL SPINE 2 OR 3 VIEWS CLINICAL HISTORY: Upright Ap&LAT flex/ ext (3 views) for surgical eval TECHNIQUE: 3 views of the cervical spine COMPARISON: December 2015 FINDINGS: Status post C4-C6 ACDF. Similar complete fusion across C4-C5. Similarpartial fusion across C5-C6. Hardware is intact and unchanged in alignment. No spondylolisthesis with flexion or extension. Similar partial disc heightloss at C3-C4 and C6-C7. No prevertebral soft tissue swelling. IMPRESSION C4 C6 ACDF without radiographic evidence of hardware complication. Nodynamic instability. Thank you for letting us participate in the care of this patient. If youare a health care provider and have any questions regarding this report,please contact the number below. For patients who have questions please contactthe health youth care specialist that requested your imaging first. Electronically signed by: Gordon Raygoza MD, [facility]([phone]), at 02/24/2021 10:42 AM Amando Mcfarland MD IMG DX ORDERABLES documented in this encounter Visit Diagnoses Diagnosis Low back pain, non-specific documented in this encounter Care Teams Commercial Art Instructor Relationship Specialty Start Date End Date April Cummins APRN [address] [place] [address] PCP - General Internal Medicine 01/13/21 documented as of this encounter
--- OUTSIDE RECORDS SUMMARY | 2024-06-27 15:14 | XMS_ITS | Encounter Summary ---
Author Organization [facility] [place] [address] Care Team Providers Care General Cleaner Name Role Phone April Cummins APRN Primary Care Provider + [phone] Reason for Visit * Reason Comments Establish Care * Consultation (Routine) - Closed Specialty Diagnoses / Procedures Referred By Rafael mart Referred To Contact Allergy Diagnoses Allergy to other foods April Cummins APRN [address] [place] [address] [facility] Allergy [address] [place] [address] Referral ID Status Reason Start Date Expiration Date V isits Requested Visits Authorized [id number] Closed Consult, Test & Treat Connection Center PCP Updated and/or Approved 03/17/2021 03/17/2022 6 6 Encounter Details Date Type Department Care Team (Late st Contact Info) Description 07/27/2021 1:00 PM EDT [place] [address] Kirsten Champagne MD [facility] [place] [address] Chronic rhinitis; Adverse food reaction, initial encounter Social History Tobacco Use Types Packs/Day [...] - documented in this encounter Patient Instructions * Patient Instructions* Kirsten Champagne MD - 07/27/2021 1:00 PM EDT Images from the original note were not included. - Have labs drawn today - Avoid triggers for your symptoms - Please keep a food/ medications/ exposure diary and document symptoms. Review the diary for any patern. If there is a specific trigger that you are having symptoms with, then avoid that trigger foreight weeks and see if you feel better. If you feel better, continue to avoid that trigger. If yoursymptoms are unchanged, then, re- introduce the potential trigger into your lifestyle. - Always have your epinephrine autoinjector. Call 911 and go to the local ER after administering it. Lewis FAJARDOK, Shy J, Will T, et al. Stinging insect hypersensitivity: a [...] for your test results. You may call [phone] or send a message through the [facility] portal. documented in this encounter Progress Notes * Viky Shaw PA - 07/27/2021 1:00 PM EDT Images from the original note were not included. 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 She also is concerned that she may have possible food or mold triggers for her symptoms. She reports that she has self-diagnosed herself with Sabrina yeast overgrowth and is eating a very limited diet which includes mostly meat and vegetables. Starchy and sugary foods may feed the Sabrina, so she generally avoids them. She has seen GI in 2017 and was diagnosed with SIBO who recommendedprobiotics, which have been helpful for diarrhea. She reports that many years ago she saw a diamond grader in [place] who advised her to avoid wheat. She had some blood testing done that that time. [...] does not know if she had testing for celiac disease previously. She reports that if she eats peanut or watermelon she becomes agitated. She tried watermelon recently and tolerated it. She reports that peaches cause itching within an hour. Chocolate with sugar she will develop delayed itching and rash. She reports that she has developed a rash while on a drip with sucrolose or glucose. She reports that she tried eating bee pollen in yogurt once and her throat closed. She reports that honey causes her to develop an immediate headache. She reports that she has had large local swelling and throat swelling from a bee sting many years ago. She does not carry an epinephrine autoinjector. She is also sensitive to fragrances, but this was worse when she lived in [place] previously, which she attributes to overall environmental exposure load. She [...] vaccine. She suspects that she had COVID-19 lastyear. Past Medical History: Diagnosis Date ??? Anxiety [...] 8.78) performed by Yolanda Still MD at [facility] MAIN OR ??? PRO OPEN TREAT TIBIA SHAFT FX, SCREWS Left 01/08/2020 ORIF TIBIAL SHAFT, PLATE & SCREWS (WRVU 12.54) performed by Yolanda Still MD at [facility] MAIN OR ??? SHOULDER ARTHROSCOPY ??? TIBIA FRACTURE SURGERY ??? URETER STENT PLACEMENT Outpatient Medications Marked as Taking for the 07/27/21 encounter (Office Visit) with Kirsten Champagne MD Medication Sig Dispense Refill ??? GLYCERIN, ADULT, RECT Place rectally. ??? Lactobacil 2-S.thermo-Bifido 1 (LACTOBAC #2-BIFIDO #1-S. THERM ORAL) Take 3 capsules by mouth. ??? fluticasone propionate (Flonase) 50 mcg/actuation [place], Suspension by Nasal route. ??? pantoprazole EC (Protonix) 40 mg Tablet, Delayed Release (E.C.) Take by mouth. ??? ferrous bis-glycinate chelate (iron bisglycin chelate, bulk,) Powder by [facility].(Non-Drug; Combo Route) route. ??? Thyroid, Pork, (HOSE MAKER Thyroid) 15 mg Tablet Take 45 mg by mouth daily. ??? castor oil Oil [place] Oil, See Instructions, Apply topically, 0 Refill(s) [...] to carry it with her. Sting avoidance was reviewed. Return if symptoms worsen or fail to improve, for FUWO ( follow- up without testing) sensitivities. PHIL [place], [facility] Section of Allergy, Asthma[place] [address] * Kirsten Champagne MD - 07/27/2021 1:00 PM [...] Procedure Name Priority Date/Time Associated Diagnosis Comments MISCELLANEOUS LAB REQUEST Routine 07/27/2021 2:34 PM EDT Chronic rhinitis HC ALLERGEN (IGE), LEVEL 1 Routine 07/27/2021 2:34 PM EDT Chronic rhinitis [facility] GAVIRIA TEST-GAVIRIA Routine 07/27/2021 2 :34 PM EDT HC PCH ALLERGEN (LGE) LEVEL 1 Routine 07/27/2021 2:34 PM EDT Chronic rhinitis HC ALLERGEN (IGE), LEVEL 1 Routine 07/27/2021 2:34 PM EDT Chronic rhinitis HC TRYPTASE Routine 07/27/2021 2:34 PM EDT Chronic rhinitis HC ALLERGEN (IGE), LEVEL 1 Routine 07/27/2021 2:34 PM EDT Chronic rhinitis HC ALLERGEN (IGE), LEVEL 1 Routine 07/27/2021 2:34 PM EDT Chronic rhinitis HC VENIPUNCTURE Routine 07/27/2021 2:34 PM EDT Chronic rhinitis documented in this encounter Results * [facility] Gaviria Test-[place] (07/27/2021 2:34 PM EDT) [facility] Gaviria Test ? Result ?Flag ??Unit ??RefValue Sabrina Albicans(Monilia ), IgE ? <0.35 ? kU/L ?Class 0 (Negative <0.35) ?Test Performed by: ?[facility] ?[address] [place] [address] ?Assistant Attorney General: Eusebio Virgen M.D. Ph.D.; CLIA# [id number] [facility] Blood Venous Draw / Unknown 07/27/2021 2:34 PM EDT 08/02/2021 10:45 AM EDT Narrative Resulting Agency Comment Spec In Lab Kirsten Champagne MD CHEMISTRY ORDERABLES [facility] [place] [address] * Miscellaneous Lab request (07/27/2021 2:34 PM EDT) [facility] Lab Result Request received in lab. [facility] Blood 07/27/2021 2:34 PM EDT 07/27/2021 2:41 PM EDT Narrative Resulting Agency Comment Spec In Lab Kirsten Champagne MD HEMATOLOGY ORDERABLE S [facility] [place] [address] * [place] IgE (07/27/2021 2:34 PM EDT) [place] IgE <0.35 kU/L [facility] Comment: Reference Ranges <0.35 kU/L Class 0: ??Normal 0.35-0.69 kU/L Class 1: ??Low level of allergy, indicative of ongoing sensitization 0.70-3.49 kU/L Class 2: ??Moderate level of allergy, indicative of stronger ongoing sensitization 3.50-17.49 kU/L Class 3: ??High level of allergy, indicative of high level sensitization 17.5-49.9 kU/L Class 4: Very high level of allergy, indicative of very high level sensitization 50.0-100 kU/L Class 5: Very high level of allergy, indicative of very high level sensitization Blood 07/27/2021 2:34 PM EDT 07/28/2021 7:26 AM EDT Narrative Resulting Agency Comment Spec In Lab Kirsten Champagne MD IMMUNOLOGY ORDERABLE S Performing Organization Address [facility]/ZIP Co de Phone Number [facility] [place] [address] * Tryptase (07/27/2021 2:34 PM EDT) Tryptase 4.4 <=11.1 ng/mL [facility] Comment: Total tryptase concentrations that are persistently greater than 20 ng/mL may be consistent with systemic mastocytosis. Blood 07/27/2021 2:34 PM EDT 07/28/2021 7:26 AM EDT Narrative Resulting Agency Comment Spec In Lab Kirsten Champagne MD CHEMISTRY ORDERABLES [facility] [place] [address] * Fusarium Moniliforme IgE (07/27/2021 2:34 PM EDT) F Moniliforme IgE <0.35 kU/L [facility] Comment: Class 0 (Negative <0.35) Test Performed by: [facility] [address] [place] [address] Assistant Attorney General: Eusebio Virgen M.D. Ph.D.; CLIA# [id number] Blood 07/27/2021 2:34 PM EDT 07/27/2021 4:11 PM EDT Narrative Resulting Agency Comment Spec In Lab Kirsten Champagne MD IMMUNOLOGY ORDERABLE S Performing Organization Address City/[facility]/ZIP Co de Phone Number [facility] [place] [address] * Cladosporium IgE (07/27/2021 2:34 PM EDT) Cladospor IgE <0.35 kU/L [facility] Comment: Reference Ranges <0.35 kU/L Class 0: ??Normal 0.35-0.69 kU/L Class 1: ??Low level of allergy, indicative of ongoing sensitization 0.70-3.49 kU/L Class 2: ??Moderate level of allergy, indicative of stronger ongoing sensitization 3.50-17.49 kU/L Class 3: ??High level of allergy, indicative of high level sensitization 17.5-49.9 kU/L Class 4: Very high level of allergy, indicative of very high level sensitization 50.0-100 kU/L Class 5: Very high level of allergy, indicative of very high level sensitization >100 kU/L Class 6: Very high level of allergy, indicative of very high level sensitization Blood 07/27/2021 2:34 PM EDT 07/28/2021 7:26 AM EDT Narrative Resulting Agency Comment Spec In Lab Kirsten Champagne MD IMMUNOLOGY ORDERABLE S [facility] [place] [address] * Helminthosporium Halodes, IgE (07/27/2021 2:34 PM EDT) H halodes, IgE <0.35 kU/L [facility] Comment: Reference Ranges <0.35 kU/L Class 0: ??Normal 0.35-0.69 kU/L Class 1: ??Low level of allergy, indicative of ongoing sensitization 0.70-3.49 kU/L Class 2: ??Moderate level of allergy, indicative of stronger ongoing sensitization 3.50-17.49 kU/L Class 3: ??High level of allergy, indicative of high level sensitization 17.5-49.9 kU/L Class 4: Very high level of allergy, indicative of very high level sensitization 50.0-100 kU/L Class 5: Very high level of allergy, indicative of very high level sensitization >100 kU/L Class 6: Very high level of allergy, indicative of very high level sensitization Blood 07/27/2021 2:34 PM EDT 07/28/2021 7:26 AM EDT Narrative Resulting Agency Comment Spec In Lab Kirsten Champagne MD IMMUNOLOGY ORDERABLE S [facility] [place] [id number] * Aspergillus fumigatus IgE (07/27/2021 2:34 PM EDT) A Fumigatus IgE <0.35 kU/L [facility] Comment: Reference Ranges <0.35 kU/L Class 0: ??Normal 0.35-0.69 kU/L Class 1: ??Low level of allergy, indicative of ongoing sensitization 0.70-3.49 kU/L Class 2: ??Moderate level of allergy, indicative of stronger ongoing sensitization 3.50-17.49 kU/L Class 3: ??High level of allergy, indicative of high level sensitization 17.5-49.9 kU/L Class 4: Very high level of allergy, indicative of very high level sensitization 50.0-100 kU/L Class 5: Very high level of allergy, indicative of very high level sensitization >100 kU/L Class 6: Very high level of allergy, indicative of very high level sensitization Blood 07/27/2021 2:34 PM EDT 07/28/2021 7:26 AM EDT Narrative Resulting Agency Comment Spec In Lab Kirsten Champagne MD IMMUNOLOGY ORDERABLE S Performing Organization Address City/[facility]/ZIP Co de Phone Number [facility] [place] [address] * Alternaria Tenuis, IgE (07/27/2021 2:34 PM EDT) Alt Debby IgE <0.35 kU/L [facility] Comment: Reference Ranges <0.35 kU/L Class 0: ??Normal 0.35-0.69 kU/L Class 1: ??Low level of allergy, indicative of ongoing sensitization 0.70-3.49 kU/L Class 2: ??Moderate level of allergy, indicative of stronger ongoing sensitization 3.50-17.49 kU/L Class 3: ??High level of allergy, indicative of high level sensitization 17.5-49.9 kU/L Class 4: Very high level of allergy, indicative of very high level sensitization 50.0-100 kU/L Class 5: Very high level of allergy, indicative of very high level sensitization >100 kU/L Class 6: Very high level of allergy, indicative of very high level sensitization Blood 07/27/2021 2:34 PM EDT 07/28/2021 7:26 AM EDT Narrative Resulting Agency Comment Spec In Lab Kirsten Champagne MD IMMUNOLOGY ORDERABLE S Performing Organization Address City/[facility]/ZIP Co de Phone Number [facility] [place] [address] documented in this encounter Visit Diagnoses Diagnosis Chronic rhinitis Adverse food reaction, initial encounter documented in this encounter Care Teams General Cleaner Relationship Specialty Start Date End Date April Cummins APRN [address] [place] [address] PCP - General Internal Medicine 01/13/21 documented as of this encounter
--- OUTSIDE RECORDS SUMMARY | 2024-06-27 15:14 | XMS_ITS | Encounter Summary ---
[place] [address] Care Team Providers Care Automobile Sales Representative Name Role Phone April Cummins MANAGER WATER WASTEWATER Primary Care Provider Encounter Details Date Type Department Care Team (Late st Contact Info) Description 05/03/2022 Ancillary Procedure [place] [address] April Cummins, MANAGER WATER WASTEWATER [address] [place], [place] [address] Social History Tobacco Use Types Packs/Day Years [...] Associated Diagnosis Comments FILM LIBRARY STORAGE ONLY ULTRASOUND STUDY Routine 05/03/2022 12:00 AM EDT documented in this encounter Results * Film Library- Storage Only Ultrasound Study (05/03/2022 12:00 AM EDT) Narrative RAD - 05/24/2022 8:54 AM EDT This exam is auto-finalizing. It's purpose is for storage only. April Cummins APRN IMG FILM LIBRARY ORD ERABLES [place], [place] documented in this encounter Visit Diagnoses Not on filedocumented in this encounter Care Teams Automobile Sales Representative Relationship Specialty Start Date End Date April Cummins APRN [address] [facility] [place] [address] PCP - General Internal Medicine 01/13/21 documented as of this encounter
--- OUTSIDE RECORDS SUMMARY | 2024-06-27 15:14 | XMS_ITS | Encounter Summary ---
Author Organization [facility] [place] [address] Care Team Providers Care Preanalytics Team Lead Name Role Phone Susan Elise ND Primary Care Provider [phone] Encounter Details Date Type Department Care Team (Late st Contact Info) Description 06/08/2020 3:20 PM EDT Ancillary Procedure [place] [address] Susan Elise, ND [address] [place] [address] Social History Tobacco Use Types Packs/Day Years [...] Diagnosis Comments FILM LIBRARY STORAGE ONLY DX FOOT Routine 06/08/2020 3:15 PM EDT documented in this encounter Results * Film Library- Storage Only DX Foot (06/08/2020 3:15 PM EDT) Narrative SHANE RAD - 06/08/2020 3:15 PM EDT This exam is auto-finalizing. It's purpose is for storage only. Susan Elise ND IMCyndee FILM LIBRARY ORD ERABLES [place], [place] documented in this encounter Visit Diagnoses Not on filedocumented in this encounter Care Teams Preanalytics Team Lead Relationship Specialty Start Date End Date Susan Elise ND PCP - General Naturopathic Medicine 05/21/20 01/12/21 documented as of this encounter
--- OUTSIDE RECORDS SUMMARY | 2024-06-27 15:14 | XMS_ITS | Encounter Summary ---
Author Organization [facility] [place] [address] Care Team Providers Care Woodworking Machine Setter Name Role Phone April Cummins Tanvir HENLEY Primary Care Provider [phone] Reason for Referral * Consultation (Routine) - Closed Specialty Diagnoses / Procedures Referred By Rafael t Referred To Contact Neurology Diagnoses Headache, cervicogenic Jed Jc MD [facility] [place] [address] Rossy Montero APRN [facility] [place] [address] Referral ID Status Reason Start Date Expiration Date V isits Requested Visits Authorized [id number] Closed Consult, Test & Treat 04/10/2022 04/10/2023 1 1 * Physical Therapy (Routine) - Closed Specialty Diagnoses / Procedures Referred By Contac t Referred To Contact Diagnoses Headache, cervicogenic Jed Jc MD [facility] [place] [address] Percy Frank, PT [address] [place] [address] Referral ID Status Reason Start Date Expiration Date V isits Requested Visits Authorized [id number] Closed Evaluate and Treat 04/10/2022 10/07/2022 12 12 Encounter Details Date Type Department Care Team (Latest Contact Info) Description 04/10/2022 11:00 AM EDT TH Visit (TeleHealth) Neurology at [facility] [place] [address] Jed Jc MD [facility] [place] [address] Headache, cervicogenic Social History Tobacco Use Types Packs/Day Years [...] as of this encounter Progress Notes * Jed Jc MD - 04/10/2022 11:00 AM EDT Images from the original note were not included[place] [address] 04/10/2022 Patient name: Kalyn Darnell Case Date of : 1960 Referring provider: April Cummins, MACHINE SPECIALIST [address] [place] [address] HISTORY REASON FOR REFERRAL/CHIEF COMPLAINT: Neck pain [...] She had MRI of neck done at [facility]. Her daily work is interrupted due [...] if PT at that place helped much. 04/10/2022: Follow up cervicogenic headaches. She did structural integration therapy done by Anna in February at [facility] It has significantly helped her. She has some leg issues and wants physical therapy for that. She hasn't taken gabapentin. Has thoracic pains which she thinks is due to old injury PMHx: Past Medical History: Diagnosis Date ??? [...] 8.78) performed by Yolanda Still MD at [facility] MAIN OR ??? PRO OPEN TREAT TIBIA SHAFT FX, SCREWS Left 01/08/2020 ORIF TIBIAL SHAFT, PLATE & SCREWS (WRVU 12.54) performed by Yolanda Still MD at [facility] MAIN OR ??? SHOULDER ARTHROSCOPY ??? [...] drugs. No flowsheet data found. Lives [place] 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 Review of systems: [...] to Visit Medication Sig Dispense Refill ??? gabapentin (Neurontin) 100 mg Capsule 100 mg AM, 200 mg HS (Patient not taking: Reported on 04/05/2022) 90 capsule 12 ??? cyclobenzaprine (Flexeril) 5 mg Tablet Take 1 tablet by mouth nightly. (Patient not taking: Reported on 04/05/2022) 30 tablet 0 ??? amino acids/protein supplement (AMINO ACIDS ORAL) [...] mouth. ??? fluticasone propionate (Flonase) 50 mcg/actuation [place], Suspension 1 spray by Each Nare route daily. ??? pantoprazole EC (Protonix) 40 mg Tablet, Delayed Release (E.C.) Take 40 mg by mouth daily as needed. ??? EPINEPHrine 0.3 mg/0.3 mL Auto-Injector Inject 0.3 mLs into the muscle once as needed (allergicreaction ( tight throat, difficulty breathing, lightheaded)). 1 kit 3 ??? ferrous bis-glycinate chelate (iron bisglycin chelate, bulk,) Powder by [facility].(Non-Drug; Combo Route) route. ??? Thyroid, Pork, ([place] Thyroid) 15 mg Tablet Take 45 mg by mouth daily. ??? castor oil Oil [place] Oil, See Instructions, Apply topically, 0 Refill(s) ??? pyridoxine, vitamin B6, (B-6) 100 mg Tablet Daily, 0 Refill(s) ??? Ciclesonide (OMNARIS) 50 mcg [place], Non-Aerosol INSTILL TWO SPRAYS IN EACH NOSTRIL TWICE A DAY 12.5 g 0 ??? Vbipwqjm9-Gbrezd9-Kbpor therm. (VISBIOME) 112.5 billion cell Capsule Take 3 capsules by mouth daily. (Patient not taking: No sig reported) 90 capsule 3 ??? b complex vitamins Capsule Take 1 capsule by mouth daily. With folic acid B-1,2,3,5,12 Biotin ??? acetylcysteine (NAC ORAL) Take by mouth daily. ??? FLUoxetine (PROZAC) [...] GENERAL THYROID: No results found for: TSH, K5TGSKF, FREET4, TT4, THYROIDAB, THGAB FolateNo results found for: SFOLATE ESRNo results found for: SEDRATE CRPNo results found for: CRP B12No results found for: MTDLQJIK22 CKNo results found for: CK Angiotensin ConvertaseNo [...] LDLCHOL, LDLDIRECT SHEILA 65No results found for: DPX42CM ANTI GM1,ANTI SGPG, MAG@RESUFAST (MAGAUTOAB,SGPG,MAGWB,GM1AB)@ HEAVY METAL SCREENNo results found for: LEAD, ARSENIC METHYLMLONIC ACIDNo results found for: METHYLMAL IgA, IGG No results found for: IGA, IGG CSF PANEL No results found for: NUCCELMANCSF, RBCCSFCT, SEGSCSF, LYMPHSCSF, NUMCELLCTCSF, CSFGLUC, CSFPROTEIN, XANTHOCHROM, MCSBFTYPE, MCS, CSFIGGINDEX, LYMEAB, VDRLSCRNCSF, OLIGOCSF, HSVDNA, ARBOWNILECSF, ENTVPCR, VZVPCR PARANEOPLASTIC PANEL No results found for: PARANEOINTRP, ANNA1, ANNA2, ANNA3, AGNA1, PCA1, PCA2, PCATYPETR, AMPHIPHYSIN,HPDH5NTK, STRIATMSCLAB, CACHABPQTYPE, CACHABNTYPE, ACHRBINDAB, NEUROKCHAB, NMDARECEPTOR, RCH94GE THROMBOSIS HOMEOCYSTEINENo results found for: HOMOCYSTEINE THROMBOSIS PANELNo results found for: ACAIGM, [id number] FACTOR V LEIDEN No components found for: FACTORVLEIDEN PROTEIN C,SNo components found for: PROTEINC, PROTEINS ANTITHROMBIN IIINo components found for: ANTITHROMBINIII Miscellaneous Send outs Lab Results Component Value Date [facility] 07[facility]27[facility]21 Test Result Flag Unit RefValue Gilma Albicans(Monilia), IgE <0.35 kU/L Class 0 (Negative <0.35) Test Performed by: [facility] [address] [place] [address] Sas Etl Developer: Eusebio Virgen M.D. Ph.D.; CLIA# [id number] CT Head: 12/2019: Unremarkable. MRI C spine: 12/2020 Report of a 3 mm cord hyperintensity along the C5 region adjacent to prior fusion surgery ASSESSMENT, PLAN & RECOMMENDATIONS ASSESSMENT: 60 Y F with h/o neck fusion in 2007 referred for evaluation of neck pains which startedafter fall and whiplash injury last year. On examination she has tenderness around neck paraspinal muscles and asymmetric brisk DTRs. Recent MRI of C spine reportedly shows old cord injury, post operative changes and disc prolapse at C3/4 levels. Not a repeat surgical candidate. She has had consider able improvement with spine rolfing done at [place]. Headaches persists IMPRESSION: Cervical cord injury, h/o neck fusion. Cervicogenic headaches. PLAN/RECOMMENDATIONS: ??? Her symptoms seems related to cervical cord injury, possibly from the fall. Current headaches seems cervicogenic in nature. ??? Started on gabapentin 100/200 but she doesn't want to take it due to sedation side effects. Flexeril 5 HS. ??? Neck PT/ Back PT referral placed. ??? Headache clinic referral for persisting headaches. ??? Follow up as needed. Jed Jc MD Department of Neurology [facility] documented in this encounter Plan of Treatment Scheduled Procedures Name Priority Associated Diagnoses Date/Ti me COLONOSCOPY, DIAGNOSTIC (WRV U 3.26) Encounter for colorectal cancer screening Scheduled Referrals Name Type Priority Associated Diagnoses Orde r Schedule Referral to Physical Therapy Outpatient Referral Routine Headache, cervicogenic Ordered: 04/10/2022 Referral to Neurology Outpatient Referral Routine Headache, cervicogenic Ordered: 04/10/2022 documented as of this encounter Visit Diagnoses Diagnosis Headache, cervicogenic Headache documented in this encounter Care Teams Woodworking Machine Setter Relationship Specialty Start Date End Date April Cummins APRN [address] [facility] [address] PCP - General Internal Medicine 01/13/21 documented as of this encounter
--- OUTSIDE RECORDS SUMMARY | 2024-06-27 15:14 | XMS_ITS | Encounter Summary ---
Author [place] [address] Care Team Providers Care Sales And Support Center Agent Name Role Phone Placido April Tanvir HENLEY Primary Care Provider [phone] Encounter Details Date Type Department Care Team (Late st Contact Info) Description 01/30/2022 Telephone [place] [address] Lisa Castillo Social History Tobacco Use Types Packs/Day Years [...] encounter Miscellaneous Notes * Telephone Encounter - Lisa Castillo - 01/30/2022 10:59 AM EST Inbound/Outbound: OUT Spoke to Patient/Left Message: Spoke to patient Notes: Spoke with alexandra. She has a wheat allergy htat is a hard stop for scheduling a smartpill. Return calls can be handled by: Any [employer] documented in this encounter Plan of Treatment Scheduled Procedures Name Priority Associated Diagnoses Date/Ti me COLONOSCOPY, DIAGNOSTIC (WRV U 3.26) Encounter for colorectal cancer screening documented as of this encounter Visit Diagnoses Not on filedocumented in this encounter Care Teams Sales And Support Center Agent Relationship Specialty Start Date End Date April Cummins, HOTEL GENERAL MANAGER [address] [place] [address] PCP - General Internal Medicine 01/13/21 documented as of this encounter
--- OUTSIDE RECORDS SUMMARY | 2024-06-27 15:14 | XMS_ITS | Encounter Summary ---
Author Organization [place] [address] Care Team Providers Care Global Marketing Specialist Name Role Phone Susan Elise Arleth SHEETS Primary Care Provider [phone] Reason for Visit * Reason Comments Follow Up Surgery L proximal tibia fx 01/06/20 ORIF 01/08/20 Encounter Details Date Type Department Care Team (Late st Contact Info) Description 07/23/2020 11:30 AM EDT Office [place] [address] Yolanda Still MD [facility] [place] [address] Closed displaced comminuted fracture of shaft of left tibia with routine healing, subsequent encounter; Right foot pain; Right ankle pain, unspecified chronicity Social History Tobacco Use Types Packs/Day Years [...] kg (130 lb) 07/23/2020 10:52 AM EDT re ported Height 165.1 cm (5' 5) 07/23/2020 10:52 AM EDT reported Body Mass Index 21.63 07/23/2020 10:52 AM EDT documented in this encounter Progress Notes * Yolanda Still MD - 07/23/2020 11:30 AM [...] 01/08/2020, doing well. We had a long discussion about her recovery and she will continue working [...] chronicity documented in this encounter Care Teams Global Marketing Specialist Relationship Specialty Start Date End Date Susan Elise ND PCP - General Naturopathic Medicine 05/21/20 01/12/21 documented as of this encounter
--- OUTSIDE RECORDS SUMMARY | 2024-06-27 15:14 | XMS_ITS | Encounter Summary ---
[place] [address] Care Team Providers Care Plant Science Professor Name Role Phone April Cummins Tanvir HENLEY Primary Care Provider [phone] Reason for Visit * Reason Onset Date Comments Questions 02/10/2021 Encounter Details Date Type Department Care Team (Late st Contact Info) Description 02/10/2021 Telephone [place] [id number] Judd Briggs Questions Social History Tobacco Use Types Packs/Day Years [...] encounter Miscellaneous Notes * Telephone Encounter - Judd Briggs - 02/10/2021 10:25 AM EDT Triage Note Subjective: pt calls with post-operative questions Merlos questions/Assessment: pt asks what rehab after having hardware in the LT knee removed will looklike. Conferred w/zac malone and relayed to pt she will be walking with expected post-surgical pain and discomfort for an expected 4 weeks. Pt then had more increasingly clinical questions such as will I regain normal function, how will the bone heal, and does removing the hardware optimize my bone healing that it couldn't do with the hardware in place? 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 Plan: fwd to clinical staff for resolution Patient/Responsible alliance party voices an understanding of advice? yes Patient/Responsible alliance party intends to comply with action/disposition: yes documented in this encounter Plan of Treatment Scheduled Procedures Name Priority Associated Diagnoses Date/Ti me COLONOSCOPY, DIAGNOSTIC (WRV U 3.26) Encounter for colorectal cancer screening documented as of this encounter Visit Diagnoses Not on filedocumented in this encounter Care Teams Plant Science Professor Relationship Specialty Start Date End Date April Cummins, SCHEDULING CLERK [address] [place] [address] PCP - General Internal Medicine 01/13/21 documented as of this encounter
--- OUTSIDE RECORDS SUMMARY | 2024-06-27 15:14 | XMS_ITS | Encounter Summary ---
Author Organization [facility] [place] [address] Care Team Providers Care Campaign Advisor Name Role Phone Susan Elise Arleth SHEETS Primary Care Provider [phone] Reason for Visit * - Closed Specialty Diagnoses / Procedures Referred By Rafael mart Referred To Contact Procedures Film Library- Storage Only DX Skull April Cummins, SLIP OPERATOR [address] [place] [address] Referral ID Status Reason Start Date Expiration Date Visits Re quested Visits Authorized [id number] Closed 02/01/2021 02/01/2022 1 1 Encounter Details Date Type Department Care Team (Late st Contact Info) Description 12/21/2020 12:05 AM EST Ancillary Procedure [place] [address] April Cummins, SLIP OPERATOR [address] [place] [address] Social History Tobacco Use Types Packs/Day Years [...] Diagnosis Comments FILM LIBRARY STORAGE ONLY DX SKULL Routine 12/21/2020 12:05 AM EST documented in this encounter Results * Film Library- Storage Only DX Skull (12/21/2020 12:05 AM EST) Narrative [facility] - 02/01/2021 3:48 PM EST This exam is auto-finalizing. It's purpose is for storage only. April Cummins APRN [facility] FILM LIBRARY ORD ERABLES Performing Organization Address City/State/[facility] Co de Phone Number [place], [place] documented in this encounter Visit Diagnoses Not on filedocumented in this encounter Care Teams Campaign Advisor Relationship Specialty Start Date End Date Susan Elise ND PCP - General Naturopathic Medicine 05/21/20 01/12/21 documented as of this encounter
--- OUTSIDE RECORDS SUMMARY | 2024-06-27 15:14 | XMS_ITS | Encounter Summary ---
Author Organization [facility] [place] [address] Care Team Providers Care Hand Former Name Role Phone April Cummins Tanvir HENLEY Primary Care Provider [phone] Reason for Visit * Reason Onset Date Comments TeleHealth 04/05/2022 Encounter Details Date Type Department Care Team (Late st Contact Info) Description 04/05/2022 [place] [address] Jed Jc [place] [facility] [place] [address] TeleHealth Social History Tobacco Use Types Packs/Day Years [...] encounter Miscellaneous Notes * Telephone Encounter - Hina Lainez RN - 04/05/2022 3:45 PM EDT Spoke to this patient by phone to review their medications and allergies prior to their upcoming tele-appointment with the Neurology provider. Medications and allergies reviewed, verified and updatedas needed. documented in this encounter Plan of Treatment Scheduled Procedures Name Priority Associated Diagnoses Date/Ti me COLONOSCOPY, DIAGNOSTIC (WRV U 3.26) Encounter for colorectal cancer screening documented as of this encounter Visit Diagnoses Not on filedocumented in this encounter Care Teams Hand Former Relationship Specialty Start Date End Date April Cummins APRN [address] [place] [address] PCP - General Internal Medicine 01/13/21 documented as of this encounter
--- OUTSIDE RECORDS SUMMARY | 2024-06-27 15:14 | XMS_ITS | Encounter Summary ---
[place] [address] Care Team Providers Care Seed Mill Superintendent Name Role Phone April Cummins KALE Primary Care Provider [phone] Encounter Details Date Type Department Care Team (Latest Contact Info) Description 01/27/2022 1:30 PM EST TH Visit (TeleHealth) [place] [address] Beth Guerra, MILKING WORKER [address] [place] [address] Encounter for colorectal cancer screening; Irritable bowel syndrome with diarrhea; Small intestinal bacterial overgrowth Social History Tobacco Use Types Packs/Day Years [...] documented as of this encounter Patient Instructions * Patient Instructions* Beth Guerra, KALE - 01/27/2022 1:53 PM EST Colonoscopy with IV sedation in April 2022. Please feel free to call us to set up this appointment. The secretaries should reach out to you within a few days, but definitely call us if you do not hearfrom us within a few days. 2. Smart pill. You will hear from our physician coding specialist to set this up once an appointment [...] and Primary Care Providers Judd Rojo MD, CPC + Conor Del Rio MD, ZAYRA Beth Guerra APRN + Dinesh Avalos APRN [facility] What are functional bowel disorders? These are the most common type of gastrointestinal disorders in the [facility] The most common functional bowel disorder in the [place] is irritable bowel syndrome (IBS) Irritable bowel syndrome affects the lower GI tract and can cause bloating, abdominal pain, diarrhea, and constipation Functional dyspepsia (FD) affects the upper GI tract and can cause bloating, burping, heartburn, nausea, fullness and stomach discomfort In functional disorders the gut is structurally/anatomically normal but is not functioning properlydue to abnormalities in the enteric (gut) nervous system Two mechanisms - heightened sensitivity of the gut to normal sensations (sensory nerves) and abnormal gut motility (motor nerves) These disorders are caused by a combination of a genetic factors, changes to the gut microbiota (intestinal bacteria) and environmental triggers How common are these disorders and what is the impact? 15-20% of general [place] population has IBS or FD or both 2nd most common cause for lost work days (after common cold) in [place] Estimated $30 billion dollar cost to [place] economy per year These disorders can have [...] with immediate onset of symptoms after infection); intermediate symptoms are expected in most patients however [...] to you primary care provider and/or local contact center consultant and share this document. Treatment of functional disorders is a team effort! Set [...] - this approach benefits most patients OTC (wblz-lna-tiaavkx) medications can be used for ongoing bothersome symptoms as listed below Your provider (PCP or local Gastroenterology provider or - Gastroenterology provider) may decide to use prescription medications if you have ongoing symptoms despite strict adherence to lifestyle and dietary measures and OTC medications Your provider will give you advice on treatments but it is your responsibility to work on these measures to improve your symptoms. Lack of adherence to recommendations is one of the most common causefor ongoing symptoms. If symptoms are controlled try easing back or stepping down on measures - remember the main goal isto improve quality of life (not necessarily eliminate [...] day (caffeine and alcohol count as minus onein calculation) Aim for a fiber intake goal [...] All-Bran psyllium buds, Metamucil, Konsyl, bulk psyllium (EventTool food stores and bulk stores) Specifically we recommend starting Metamucil or Konsyl at a low dosage - start at one teaspoon a day for one week then gradually increase by one [...] but convincing medical evidence is still lacking Knpu-avw-evmlaid supplements including probiotics are not typically evaluated by FDA. The quality and even safety is often unclear and many products (despite being very expensive) actually do not contain any active ingredients at all! Live-culture yogurts, kombucha, sauerkraut and other dietary sources may help improve your microbiome Kali, TuZen, and Visbiome are the three probiotics that are supported by medical research to have benefit for IBS Florastor has been shown to decrease antibiotic-associated diarrhea and post- infectious diarrhea BioK Plus has been shown to decrease antibiotic-associated diarrhea and antibiotic-related infections Aafd-gru-Wdhbzsx Medications for Functional Gut Disorders Based on [...] a stool softener that is safe for intermediate usage (no risk of dependency) andthe dosage can be adjusted to achieve 1-2 soft bowel movements per day; you can take a capful (17g)twice daily if needed Milk of magnesia and lactulose are alternate stool softeners that are generally safe for regular use in most patients (you should ask your provider first). Bisacodyl (Dulcolax) and senna (Senokot) are stimulant laxatives for occasional use only as they may lead to dependency with regular long-term use. Enemas and bowel preparations (e.g. Colyte or Golytely) can be used to treat severe stool impaction---- this is called ???rescue therapy?? . Drink [...] worse and there is a risk of addictionand/or dependence Exercise, hot-water bottle/heating pad, warm bath/shower, and warm beverages are also good treatments for painful bloating episodes Heartburn/Nausea/Vomiting/Dyspepsia Acid reducing medications such as proton-pump inhibitors (PPIs) and H2 blockers may be helpful especially if you have gastroesophageal reflux disease (GERD) Often a combination of anti-nausea medications (zlnl-tsi-nfechvz or prescription) works better thanhigh doses of only one medication A herbal product called STW5 (Iberogast) is supported by some studies to help dyspepsia but data onlong-term effectiveness and safety is limited L-carnitine and coenzyme Q10 supplements have been reported to be beneficial to some patients with chronic nausea and vomiting If using cannabis (recreational or medical) consider stopping for at least two weeks (ideally a full month). While cannabis has been reported to help some patients with nausea it may actually be contributing to symptoms. Disclaimer This information is intended for education purposes only It is not meant to replace direct patient-provider care All medications should be used under the supervision of a Gastroenterology provider or Primary CareProvider Authors are not liable for misuse/misinterpretation of this information Patient Resources [place] [employer] https://www.gastro.org/practice-guidance/nh-mvybmos-ggrhxg/ topic/yzzvingzr-xnaxn-utagqgyq-ibs Badgut.org https://badgut.org/information-centre/i-r-hobtljkxn-topics/ibs/ AboutIBS.org https://www.aboutibs.org/ Uptodate.Satmex https://www.Solarte HealthdaHyginex.Satmex/contents/wpfcdkzeh-srlml-ryndzlzf-puxezz-syf-efvkoo documented in this encounter Progress Notes * Beth Guerra, KALE - 01/27/2022 1:30 PM EST [facility] TELEMEDICINE PROGRAM Chief Complaint: Kalyn Burgos is a 61 y[address] of Dr[address] Martine coffman. provider found here for follow-up of IBS. Detailed history: *61 y.o. female With a history significant for s/p appendectomy, DJD, IBS, and small intestinal bacterial overgrowth. During her last appointment on 04/29/2019, she endorsed doing well in terms of symptoms, although continued to have a large amount of gas. Recommendations included me tronidazole and continue VSL #3. Interval history: Has been in remission since taking metronidazole. She is experiencing a recurrence. She has been off VSL #3 since September. Endorses normal bowel movements until recurrent symptoms.Stools have started to become loose. Endorses vaginal splinting for bowel movements. Towner type 1stools at time. She fractured her leg in 2019. Treated with antibiotics. Subsequently diagnosed with COVID. [...] mouth. ??? fluticasone propionate (Flonase) 50 mcg/actuation Harmans, Suspension by Nasal route. ??? EPINEPHrine 0.3 mg/0.3 mL Auto-Injector Inject 0.3 mLs into the muscle once as needed (allergicreaction ( tight throat, difficulty breathing, lightheaded)). 1 kit 3 ??? ferrous bis-glycinate chelate (iron bisglycin chelate, bulk,) Powder by [employer](Non-Drug; Combo Route) route. ??? Thyroid, Pork, (Maybeury Thyroid) 15 mg Tablet Take 45 mg by mouth daily. ??? castor oil Oil Mooers Oil, See Instructions, Apply topically, 0 Refill(s) [...] mg Capsule Take by mouth. ??? omega 5-dtq-ffr-fish oil (Fish Oil) 100-160-1,000 mg Capsule Take [...] mouth every 4 hours as needed for Pain(1 tab for moderate pain (4-6) or 2 tabs for severe pain (7- 10)). (Patient not taking: Reported on 05/21/2020) 40 tablet 0 ??? senna-docusate (Pericolace) 8.6-50 mg Tablet Take 2 tablets by mouth 2 times daily. (Patient not taking: Reported on 01/23/2020) 60 tablet 0 ??? Ciclesonide (OMNARIS) 50 mcg Harmans, Non-Aerosol INSTILL TWO SPRAYS IN EACH NOSTRIL TWICE A DAY (Patient not taking: No sig reported) 12.5 g 0 ??? Etamhtvn8-Wwlzql7-Uqjtu therm. (VISBIOME) 112.5 billion cell Capsule Take 3 capsules by mouth daily. (Patient not taking: No sig reported) 90 capsule 3 No facility-administered medications prior to visit. Allergies: is allergic to bee pollen, folic acid, milk, senna, sugarup [dextrose], tetracycline, and wheat. Past Medical History: has a past medical history of Anxiety, Depression, IBS (irritable bowel syndrome), Nephrolithiasis, No known health problems, and Sepsis due to urinary tract infection. Past Surgical History: has a past surgical history that includes Shoulder arthroscopy; section; Appendectomy; Ureter stent placement; Tibia fracture surgery; back surgery; Apply Bone Uniplane, Ext Fix Dev (83214) (Left, 01/06/2020); and Open Treat Tibia Shaft Fx, Screws (72930) (Left, 01/08/2020). Family History: family history includes Allergic Rhinitis in her mother; Asthma in her mother; Cancer in her mother; Chronic Obstructive Pulmonary Disease in her father and mother; Food Allergy in another family member. denies family history of colon [...] encounter: 35 minutes . Beth Guerra APRN [facility] [place] [address] documented in this encounter Plan of Treatment Scheduled Orders Name Type Priority Associated Diagnoses Orde r Schedule ENDOSCOPY CASE REQUEST: COLONOSCOPY, DIAGNOSTIC Procedures Routine Encounter for colorectal cancer screening Ordered: 01/27/2022 Scheduled Procedures Name Priority Associated Diagnoses Date/Ti me COLONOSCOPY, DIAGNOSTIC (WRV U 3.26) Encounter for colorectal cancer screening documented as of this encounter Visit Diagnoses Diagnosis Encounter for colorectal cancer screening Special screening for malignant neoplasms, colon Irritable bowel syndrome with diarrhea Irritable bowel syndrome Small intestinal bacterial overgrowth documented in this encounter Care Teams Seed Mill Superintendent Relationship Specialty Start Date End Date April Cummins APRN [address] [place] [address] PCP - General Internal Medicine 01/13/21 documented as of this encounter
--- OUTSIDE RECORDS SUMMARY | 2024-06-27 15:14 | XMS_ITS | Encounter Summary ---
Author Organization [facility] [place] [address] Care Team Providers Care Examination Grader Name Role Phone Susan Elise Arleth SHEETS Primary Care Provider [phone] Reason for Referral * Physical Therapy (Routine) - Closed Specialty Diagnoses / Procedures Referred By Rafael mart Referred To Contact Diagnoses Closed displaced comminuted fracture of shaft of left tibia with routine healing, subsequent encounter Joseline Lucero PA [facility] [place] [address] Referral ID Status Reason Start Date Expiration Date V isits Requested Visits Authorized [id number] Closed Evaluate and Treat 05/21/2020 11/17/2020 1 1 Reason for Visit * Reason Comments Follow-up L prox tibia fx 02/03 ORIF 01/08/2020 Encounter Details Date Type Department Care Team (Late st Contact Info) Description 05/21/2020 11:30 AM EDT Office [place] [address] Yolanda Still MD [facility] [place] [address] Closed displaced comminuted fracture of shaft of [...] kg (125 lb) 05/21/2020 11:13 AM EDT reported Height 165.1 cm (5' 5) 05/21/2020 11:13 AM EDT reported Body Mass Index 20.8 05/21/2020 11:13 AM EDT documented in this encounter Progress Notes * Joseline Lucero PA - 05/21/2020 11:30 AM EDT PATIENT NAME: Kalyn Burgos AGE: 59 y.o. MR#: [id number] DATE OF VISIT: 05/21/2020 CHIEF COMPLAINT: 4 [...] doing well. She has been ambulating with [place] crutches. Sheis working with [facility], Pieter Oakley PT. Initially, she had been hesitant to put weight down . Her hips were out and she had a lot of painwith her hips. She does have hypermobility. Past [...] Medications: ??? castor oil Oil ??? omega 9-kcz-vtr-fish oil (Fish Oil) 100-160-1,000 mg Capsule ??? pyridoxine, vitamin B6, (Vitamin B-6) 100 mg Tablet ??? ibuprofen (Advil;Motrin) 200 mg Tablet ??? acetaminophen (Tylenol) 500 mg Tablet ??? Ciclesonide (OMNARIS) 50 mcg [place], Non-Aerosol ??? Hhemopfs2-Yulieh5-Vpnre therm. (VISBIOME) 112.5 billion cell Capsule ??? [...] of Kalyn Burgos's chief complaint. We reviewed theimaging together XR of the left tib fib shows proximal tibial fracture with no change in alignment.There has been interval callus formation since prior. [...] Referral to Physical Therapy Outpatient Referral Routine Closed displaced comminuted fracture of shaft of left tibia with routine healing, subsequent encounter Ordered: 05/21/2020 documented as of this encounter Visit Diagnoses Diagnosis Closed displaced comminuted fracture of shaft of left tibia with routine healing, subsequent encounter documented in this encounter Care Teams Examination Grader Relationship Specialty Start Date End Date Susan Elise ND PCP - General Naturopathic Medicine 05/21/20 01/12/21 documented as of this encounter
--- OUTSIDE RECORDS SUMMARY | 2024-06-27 15:14 | XMS_ITS | Encounter Summary ---
Author Organization [facility] [place] [address] Care Team Providers Care Life Sciences Director Name Role Phone Susan Elise Arleth SHEETS Primary Care Provider [phone] Reason for Visit * Physical Therapy (Routine) - Closed Specialty Diagnoses / Procedures Referred By Rafael mart Referred To Contact Physical Therapy Diagnoses Closed displaced comminuted fracture of shaft of left tibia with routine healing, subsequent encounter [facility] -11-05??? Joseline Lucero, PA [facility] [place] [address] [facility] [address] [place] [address] Referral ID Status Reason Start Date Expiration Date V isits Requested Visits Authorized [id number] Closed Evaluate and Treat 11/05/2020 11/05/2021 1 1 Encounter Details Date Type Department Care Team (Late st Contact Info) Description 11/05/2020 3:15 PM EST Office Visit Physical Therapy at [address] [place] [address] Jinny Harkins, PT [facility] PHYSICAL MEDICINE & [place] [address] Closed displaced comminuted fracture of shaft of [...] - Therapy - Jinny Harkins, PT - 11/05/2020 3:15 PM EST Physical [...] strength in her leg Objective: Therex: Strength/Endurance/ROM (66816) 15 min ?? Squats x10 ?? SL [...] tibia with routine healing, subsequent encounter Ordered: 11/05/2020 documented as of this encounter Visit Diagnoses Diagnosis Closed displaced comminuted fracture of shaft of left tibia with routine healing, subsequent encounter documented in this encounter Care Teams Life Sciences Director Relationship Specialty Start Date End Date Susan Elise ND PCP - General Naturopathic Medicine 05/21/20 01/12/21 documented as of this encounter
--- OUTSIDE RECORDS SUMMARY | 2024-06-27 15:14 | XMS_ITS | Encounter Summary ---
Author Organization [facility] [place] [address] Care Team Providers Care Brusher Tender Name Role Phone Rosita Cumminsyce Tanvir HENLEY Primary Care Provider [phone] Reason for Referral * Physical Therapy (Routine) - Closed Specialty Diagnoses / Procedures Referred By Rafael mart Referred To Contact Physical Therapy Diagnoses Closed displaced comminuted fracture of shaft of left tibia with routine healing, subsequent encounter Kathie Cid PA [facility] [place] [address] Referral ID Status Reason Start Date Expiration Date V isits Requested Visits Authorized [id number] Closed Evaluate and Treat 04/08/2020 10/05/2020 1 1 Encounter Details Date Type Department Care Team (Latest Contact Info) Description 04/08/2020 2:00 PM EDT TH Visit (TeleHealth) [place] [address] Kathie Cid PA [facility] [place] [address] Closed displaced comminuted fracture of shaft of left tibia with routine healing, subsequent encounter (Primary Dx) Social History Tobacco Use Types Packs/Day [...] as of this encounter Progress Notes * Kathie Cid PA - 04/08/2020 2:00 PM EDT PATIENT NAME: Kalyn Darnell Case AGE: 59 y.o. MR#: [id number] DATE OF VISIT: 04/08/2020 CHIEF COMPLAINT: 3 months s/p left proximal tibia ORIF 01/08/[address] Still HISTORY OF PRESENT ILLNESS: Ms. Darnell Case is a 59 y.o. female who is scheduled for telephone visittoday to discuss her left leg. Had fall while skiing 01/06/2020. Had ex-fix initially. Had subsequent ORIF by Dr. Still 01/08/2020. Was NWB for 11 weeks. She progressed to TDWB 1-2 weeks ago. She has been standing on it a little, not fully WB. No increase in pain since she started transferring some.Has not started PT due to COVID19 precautions. Unfortunately, healing on xray was slower than expected. I reviewed this with Dr. Still who recommended progressing her cautiously and if she develops nonunion in the future, we can consider bone grafting surgery. Taking ibuprofen prn for pain. She prefers Vicodin. Denies numbness, tingling, change in sensation. Denies [...] mg Tablet ??? Ciclesonide (OMNARIS) 50 mcg [place], Non-Aerosol ??? Slhbfitq9-Puafwo1-Jhrfl therm. (VISBIOME) 112.5 billion cell Capsule ??? [...] s/p ORIF. Progress gently to WBAT LLE, start with assistive device. Discussed fracture is not completely healed. Progress in healing appears a bit stalled. Discussed risks of progressing her include possibly breaking hardware. Discussed risk of this becoming a nonunion. 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 If this does not heal, we may need to consider that. Recommend tylenol rather than ibuprofen, if possible. She inquires about Vicodin. I don't want to get her back on a strong opioid if she has already tapered off after surgery. She says she doesn't like tramadol which I offered to her. I explained that starting PT will be very helpful for her. She says she didn't get the last script I mailed. I would like PT to help guide her through the process [...] tibia with routine healing, subsequent encounter Ordered: 04/08/2020 documented as of this encounter Visit Diagnoses Diagnosis Closed displaced comminuted fracture of shaft of left tibia with routine healing, subsequent encounter- Primary documented in this encounter Care Teams Brusher Tender Relationship Specialty Start Date End Date April Cummins APRN [address] [place] [address] PCP - General Internal Medicine 01/06/20 05/20/20 documented as of this encounter
--- OUTSIDE RECORDS SUMMARY | 2024-06-27 15:14 | XMS_ITS | Encounter Summary ---
[place] [address] Care Team Providers Care Paper Machine Supervisor Name Role Phone April Cummins Tanvir HENLEY Primary Care Provider [phone] Reason for Visit * Reason Onset Date Comments Other 04/30/2020 Encounter Details Date Type Department Care Team (Late st Contact Info) Description 04/30/2020 Telephone [place] [phone] Kathie Cid PA [facility] [place] [address] Other Social History Tobacco Use Types Packs/Day [...] encounter Miscellaneous Notes * Telephone Encounter - Daniela Jane - 04/30/2020 10:12 AM EDT PT called today to see if we had received the x-rays that were done at [facility]. Advised that we have not received them as of today. [place], [place] PH: [phone] FAX: [phone] [facility] PH: [phone] FAX: [phone] IMG PUSH NUCLEUS/ICA Faxed request for image [...] on filedocumented in this encounter Care Teams Paper Machine Supervisor Relationship Specialty Start Date End Date April Cummins APRN [address] [place] [address] PCP - General Internal Medicine 01/06/20 05/20/20 documented as of this encounter
--- OUTSIDE RECORDS SUMMARY | 2024-06-27 15:14 | XMS_ITS | Encounter Summary ---
[place] [address] Care Team Providers Care Curatorial Assistant Name Role Phone April Cummins APRN Primary Care Provider [phone] Encounter Details Date Type Department Care Team (Late st Contact Info) Description 02/14/2021 Orders Only [facility] [place] [address] Amando Mcfarland MD [facility] [place] [address] Social History Tobacco Use Types Packs/Day Years [...] on filedocumented in this encounter Care Teams Curatorial Assistant Relationship Specialty Start Date End Date April Cummins APRN [address] [place] [address] PCP - General Internal Medicine 01/13/21 documented as of this encounter
--- OUTSIDE RECORDS SUMMARY | 2024-06-27 15:14 | XMS_ITS | Encounter Summary ---
Author Organization [facility] [place] [address] Care Team Providers Care Solids Control Technician Name Role Phone April Cummins Tanvir HENLEY Primary Care Provider [phone] Encounter Details Date Type Department Care Team (Late st Contact Info) Description 02/14/2021 Orders Only [facility] [place] [address] Amando Mcfarland MD [facility] [place] [address] Low back pain, non-specific Social History Tobacco Use Types Packs/Day Years [...] screening documented as of this encounter Results * XR Cervical Spine [...] who have questions please contact the health care transport nurse that requested your imaging first. ? Electronically signed by: Gordon Raygoza MD, [facility] ([phone]), at 02/24/2021 10:42 AM Narrative 02/24/2021 10:42 [...] patients who have questions please contactthe health care transport nurse that requested your imaging first. Electronically signed by: Gordon Raygoza MD, [facility]([phone]), at 02/24/2021 10:42 AM Amando Mcfarland MD IMG DX ORDERABLES documented in this encounter Visit Diagnoses Diagnosis Low back pain, non-specific Low back pain, non-specific documented in this encounter Care Teams Solids Control Technician Relationship Specialty Start Date End Date April Cummins APRN [address] [facility] [place] [address] PCP - General Internal Medicine 01/13/21 documented as of this encounter
--- OUTSIDE RECORDS SUMMARY | 2024-06-27 15:14 | XMS_ITS | Encounter Summary ---
[place] [address] Care Team Providers Care Director Of Clinical Trials Name Role Phone April Cummins APRN Primary Care Provider Encounter Details Date Type Department Care Team (Late st Contact Info) Description 01/31/2022 Orders [place] [address] Beth Guerra APRN [address] [place] [address] Nausea and vomiting, intractability of vomiting not specified, unspecified vomiting type Social History Tobacco Use Types Packs/Day Years [...] Diagnoses Diagnosis Nausea and vomiting, intractability of vomiting not specified, unspecified vomiting type documented in this encounter Care Teams Director Of Clinical Trials Relationship Specialty Start Date End Date April Cummins APRN [address] [place] [address] PCP - General Internal Medicine 01/13/21 documented as of this encounter
--- OUTSIDE RECORDS SUMMARY | 2024-06-27 15:14 | XMS_ITS | Encounter Summary ---
[place] [address] Care Team Providers Care Laundry Agent Name Role Phone April Cummins APRN Primary Care Provider [phone] Encounter Details Date Type Department Care Team (Late st Contact Info) Description 04/18/2022 Orders [place] [address] Beth Guerra APRN [address] [place] [address] Social History Tobacco Use Types Packs/Day Years [...] on filedocumented in this encounter Care Teams Laundry Agent Relationship Specialty Start Date End Date April Cummins APRN [address] [place] [address] PCP - General Internal Medicine 2/18/21 documented as of this encounter
--- OUTSIDE RECORDS SUMMARY | 2024-06-27 15:14 | XMS_ITS | Encounter Summary ---
[place] [address] Care Team Providers Care Lpn Private Duty Name Role Phone April Cummins APRN Primary Care Provider Encounter Details Date Type Department Care Team (Late st Contact Info) Description 02/01/2021 Orders [place] [address] Yolanda Still MD [facility] [place] [address] Closed displaced comminuted fracture of shaft of [...] encounter documented in this encounter Care Teams Lpn Private Duty Relationship Specialty Start Date End Date April Cummins APRN [address] [place] [address] PCP - General Internal Medicine 01/13/21 documented as of this encounter
--- OUTSIDE RECORDS SUMMARY | 2024-06-27 15:14 | XMS_ITS | Encounter Summary ---
[place] [address] Care Team Providers Care Tribal Judge Name Role Phone Rosita Cumminsyce Tanvir HENLEY Primary Care Provider [phone] Encounter Details Date Type Department Care Team (Late st Contact Info) Description 01/30/2022 Telephone [place] [address] Suzan Taylor CMA GASTROENTEROLOGY DEPT Social History Tobacco Use Types Packs/Day Years [...] encounter Miscellaneous Notes * Telephone Encounter - Suzan Taylor CMA - 01/30/2022 8:45 AM EST Medication Prior Authorization 4L Gastroenterology / [place] [address] Subscriber Insurance: [place] Physician: Beth Guerra Return Pharmacy: Phone: [...] to 1,650 mg/day Tracking number/Case number/Reference number: [id number] Effective date: Start: End: documented in this encounter Plan of Treatment Scheduled Procedures Name Priority Associated Diagnoses Date/Ti me COLONOSCOPY, DIAGNOSTIC (WRV U 3.26) Encounter for colorectal cancer screening documented as of this encounter Visit Diagnoses Not on filedocumented in this encounter Care Teams Tribal Judge Relationship Specialty Start Date End Date April Cummins APRN [address] [place] [address] PCP - General Internal Medicine 01/13/21 documented as of this encounter
--- OUTSIDE RECORDS SUMMARY | 2024-06-27 15:14 | XMS_ITS | Encounter Summary ---
Author Organization [facility] Address [facility] [place] [address] Care Team Providers Care Fractionating Still Operator Name Role Phone Susan Elise Arleth SUDEEP Primary Care Provider [phone] Encounter Details Date Type Department Care Team (Latest Contact Info) Description 11/05/2020 2:37 PM EST - 11/05/2020 11:59 PM EST Hospital Encounter XRay at [address] [place] [address] Yolanda Still MD [facility] [place] [address] Closed displaced comminuted fracture of shaft of left tibia with routine healing, subsequent encounter Discharge Disposition: Home Social History Tobacco Use [...] chelate (iron bisglycin chelate, bulk,) Powder by [facility].(Non-Drug; Combo Route) route. Thyroid, Pork, ([place] Thyroid) 15 mg Tablet Take 45 mg by mouth daily. 30mg and 15mg castor oil Oil [place] Oil, See Instructions, Apply topically, 0 Refill(s) 01/18/2020 pyridoxine, vitamin B6, (B-6) 100 mg Tablet Daily, 0 Refill(s) 01/18/2020 Ciclesonide (OMNARIS) 50 mcg [place], Non-Aerosol INSTILL TWO SPRAYS IN EACH NOSTRIL TWICE A DAY 12.5 g 09/08/2019 Ysiizwqw9-Cqbkkf4-Ttbm p therm. (VISBIOME) 112.5 billion cell CapsuleIndications:Sma ll intestinal bacterial overgrowth,Irritable bowel syndrome with diarrhea Take 3 capsules by mouth daily. 90 capsule 3 04/29/2019 b complex vitamins Capsule Take 1 capsule by mouth daily. With folic acid B-1,2,3,5,12 Biotin acetylcysteine (NAC ORAL) Take by mouth daily. naproxen sodium (ALEVE) 220 mg Capsule Take by mouth. 02/2022 omega 4-cni-nyk-fish oil (Fish Oil) 100-160-1,000 mg Capsule Take [...] Diagnosis Comments XR TIBIA FIBULA LEFT Routine 11/05/2020 2:47 PM EST Closed displaced comminuted fracture of shaft of left tibia with routine healing, subsequent encounter documented in this encounter Results * XR Tibia Fibula Left (Generic) (11/05/2020 2:47 PM EST) Anatomical Region Laterality Modality Left Digital Radiogra phy Impressions 11/05/2020 2:50 PM EST Healing proximal tibial fracture status post internal fixation. Thank you for letting us participate in the care of this patient. For questions regarding this report, please contact the number below. ? Narrative 11/05/2020 2:50 PM EST EXAMINATION: XR TIBIA FIBULA LEFT (GENERIC) CLINICAL HISTORY: left proximal tibia ORIF 01/08/2020 Full length Tib/fib into knee and ankle please TECHNIQUE: 2 views LEFT tibia and fibula COMPARISON: 07/15/2020 FINDINGS: There is a fracture of the proximal tibia status post internal fixation. The hardware is intact. There is progression of bony bridging at the fracture. Alignment is unchanged. Proximal fibular fracture has healed. Procedure Note Gordon Raygoza MD - 11/05/2020 EXAMINATION: XR TIBIA FIBULA LEFT (GENERIC) CLINICAL HISTORY: left proximal tibia ORIF 01/08/2020 Full length Tib/fib into knee and ankle please TECHNIQUE: 2 views LEFT tibia and fibula COMPARISON: 07/15/2020 FINDINGS: There is a fracture of the proximal tibia status post internal fixation.The hardware is intact. There is progression of bony bridging at thefracture. Alignment is unchanged. Proximal fibular fracture has healed. IMPRESSION Healing proximal tibial fracture status post internal fixation. Thank you for letting us participate in the care of this patient. Forquestions regarding this report, please contact the number below. Electronically signed by: Gordon Raygoza MD, [facility]([phone]), at 11/05/2020 2:50 PM Yolanda Still MD IMG DX ORDERABLES documented in this encounter Visit Diagnoses Diagnosis Closed displaced comminuted fracture of shaft of left tibia with routine healing, subsequent encounter documented in this encounter Care Teams Fractionating Still Operator Relationship Specialty Start Date End Date Susan Elise ND PCP - General Naturopathic Medicine 05/21/20 01/12/21 documented as of this encounter
--- OUTSIDE RECORDS SUMMARY | 2024-06-27 15:14 | XMS_ITS | Encounter Summary ---
Author Organization [facility] [place] [address] Care Team Providers Care Production Miner Name Role Phone Susan Elise Arleth SHEETS Primary Care Provider [phone] Encounter Details Date Type Department Care Team (Late st Contact Info) Description 06/17/2020 Orders [place] [address] Yolanda Still MD [facility] [place] [address] Closed displaced comminuted fracture of shaft of [...] as of this encounter Results * XR Tibia Fibula Left (Generic) (07/23/2020 10:37 AM EDT) Anatomical Region Laterality Modality Left Digital Radiogra phy Impressions 07/23/2020 11:01 AM EDT Healed proximal fractures of the tibia and fibula. Intact fixation hardware. Thank you for letting us participate in the care of this patient. For questions regarding this report, please contact the number below. ? Electronically signed by: Benjamin Figueroa [facility] ([phone]), at 07/23/2020 11:01 AM Narrative 07/23/2020 11:01 [...] this report, please contact the number below. Yolanda Still MD IMG DX ORDERABLES documented in this encounter Visit Diagnoses Diagnosis Closed displaced comminuted fracture of shaft of left tibia with routine healing, subsequent encounter Closed displaced comminuted fracture of shaft of left tibia with routine healing, subsequent encounter Right foot pain Pain in limb documented in this encounter Care Teams Production Miner Relationship Specialty Start Date End Date Susan Elise ND PCP - General Naturopathic Medicine 05/21/20 01/12/21 documented as of this encounter
--- OUTSIDE RECORDS SUMMARY | 2024-06-27 15:14 | XMS_ITS | Encounter Summary ---
[place] [address] Care Team Providers Care Crosscutter Name Role Phone April Cummins Tanvir HENLEY Primary Care Provider [phone] Reason for Visit * Reason Onset Date Comments Other 02/01/2021 Encounter Details Date Type Department Care Team (Late st Contact Info) Description 02/01/2021 Telephone [place] [address] Yolanda Still MD [facility] [place] [address] Other Social History Tobacco Use Types Packs/Day [...] encounter Miscellaneous Notes * Telephone Encounter - Julia Braden - 02/01/2021 8:40 AM EST Kalyn stopped into clinic today and would like the orders placed for Hardware Removal documented in this encounter Plan of Treatment Scheduled Procedures Name Priority Associated Diagnoses Date/Ti me COLONOSCOPY, DIAGNOSTIC (WRV U 3.26) Encounter for colorectal cancer screening documented as of this encounter Visit Diagnoses Not on filedocumented in this encounter Care Teams Crosscutter Relationship Specialty Start Date End Date April Cummins, ANALYTICAL CLERK [address] [place] [address] PCP - General Internal Medicine 01/13/21 documented as of this encounter
--- OUTSIDE RECORDS SUMMARY | 2024-06-27 15:14 | XMS_ITS | Encounter Summary ---
[place] [address] Care Team Providers Care Rotoprinter Name Role Phone April Cummins KALE Primary Care Provider [phone] Reason for Visit * Reason Onset Date Comments Pre Procedure Call 08/03/2021 Encounter Details Date Type Department Care Team (Late st Contact Info) Description 08/03/2021 Telephone [place] [address] Yolanda Still MD [facility] [place] [address] Pre Procedure Call Social History Tobacco Use Types Packs/Day Years [...] encounter Miscellaneous Notes * Telephone Encounter - Leelee Billy - 08/03/2021 10:05 AM EDT I called and left a message for patient to call [phone] directly and schedule surgery with Dr. Still. documented in this encounter Plan of Treatment Scheduled Procedures Name Priority Associated Diagnoses Date/Ti me COLONOSCOPY, DIAGNOSTIC (WRV U 3.26) Encounter for colorectal cancer screening documented as of this encounter Visit Diagnoses Not on filedocumented in this encounter Care Teams Rotoprinter Relationship Specialty Start Date End Date April Cummins, FABRICATION OPERATOR [address] [place] [address] PCP - General Internal Medicine 01/13/21 documented as of this encounter
--- OUTSIDE RECORDS SUMMARY | 2024-06-27 15:14 | XMS_ITS | Encounter Summary ---
Author Organization [place] [address] Care Team Providers Care Offset Lithographic Press Setter Name Role Phone Susan Elise Arleth SHEETS Primary Care Provider [phone] Reason for Referral * Physical Therapy (Routine) - Closed Specialty Diagnoses / Procedures Referred By Rafael mart Referred To Contact Physical Therapy Diagnoses Closed displaced comminuted fracture of shaft of left tibia with routine healing, subsequent encounter [facility] -11-05??? Joseline Lucero PA [facility] [place] [address] [facility] [address] [place] [address] Referral ID Status Reason Start Date Expiration Date V isits Requested Visits Authorized [id number] Closed Evaluate and Treat 11/05/2020 11/05/2021 1 1 Reason for Visit * Reason Comments Follow-up Cont. Pain// Closed displaced comminuted fracture of shaft of left tibia// Discuss removal of hardware (01/08/20) -No code given Encounter Details Date Type Department Care Team (Late st Contact Info) Description 11/05/2020 3:50 PM EST Office [place] [address] Yolanda Still MD [facility] [place] [address] Closed displaced comminuted fracture of shaft of [...] EST documented in this encounter Progress Notes * Joseline Lucero PA - 11/05/2020 3:50 PM EST PATIENT NAME: Kalyn Burgos AGE: 59 y.o. MR#: [id number] DATE OF VISIT: 11/05/2020 CHIEF COMPLAINT: 10 [...] She feels that she has not made alot of progress other than walking. She is not yet able to walk up and down stairs due to pain and weakness. She feels that her hardware is very prominent. She goes to a physical therapist in [facility]. She has one PT that is [...] bisglycin chelate, bulk,) Powder ??? Thyroid, Pork, ([place] [place] Thyroid) 15 mg Tablet ??? castor oil Oil ??? Ciclesonide (OMNARIS) 50 mcg [place], Non-Aerosol ??? b complex vitamins Capsule ??? acetylcysteine (NAC ORAL) ??? IODINE ORAL ??? FLUoxetine (PROZAC) 10 mg Tablet ??? omega 8-mbg-erh-fish oil (Fish Oil) 100-160-1,000 mg Capsule ??? pyridoxine, vitamin B6, (Vitamin B-6) 100 mg Tablet ??? oxyCODONE (Roxicodone) 5 mg Tablet ??? ibuprofen (Advil;Motrin) 200 mg Tablet ??? acetaminophen (Tylenol) 500 mg Tablet ??? gabapentin (Neurontin) 300 mg Capsule ??? HYDROmorphone (Dilaudid) 2 mg Tablet ??? polyethylene glycol (Miralax) 17 gram Powder in Packet ??? senna-docusate (Pericolace) 8.6-50 mg Tablet ??? Wfrckvlw3-Lhlabw6-Xkllm therm. (VISBIOME) 112.5 billion cell Capsule ??? [...] questions or concerns. FU: - refer to [facility] physical therapy - Dr. tSill will be placing orders for removal of [...] Ordered: 11/05/2020 documented as of this encounter Results * [...] below. Electronically signed by: Gordon Raygoza MD, [facility]([phone]), at 11/05/2020 2:50 PM Yolanda Still MD IMG DX ORDERABLES documented in this encounter Visit Diagnoses Diagnosis Closed displaced comminuted fracture of shaft of left tibia with routine healing, subsequent encounter- Primary Closed displaced comminuted fracture of shaft of left tibia with routine healing, subsequent encounter documented in this encounter Care Teams Offset Lithographic Press Setter Relationship Specialty Start Date End Date Susan Elise ND PCP - General Naturopathic Medicine 05/21/20 01/12/21 documented as of this encounter
--- OUTSIDE RECORDS SUMMARY | 2024-06-27 15:14 | XMS_ITS | Encounter Summary ---
[place] [address] Care Team Providers Care Director Of Purchasing Name Role Phone April Cummins KALE Primary Care Provider [phone] Encounter Details Date Type Department Care Team (Late st Contact Info) Description 05/03/2020 Telephone [place] [phone] Marlyn Puri RN Social History Tobacco Use Types Packs/Day [...] encounter Miscellaneous Notes * Telephone Encounter - Kathie Cid PA - 05/04/2020 9:53 AM EDT Chanell helped me mail xrays to her and faxed PT script to the new PT she requested. I'll plan on seeing her 05/21 and she'll call me in the meantime with any questions or concerns. * Telephone Encounter - Kathie Cid PA - 05/03/2020 4:41 PM EDT Xrays show some healing at fracture, but overall very similar compared to previous xrays. Discussedshe can be WBAT LLE. She would like to try a new PT. Fax number [phone] [facility] She would like me to mail her her films. * Telephone Encounter - Marlyn Puri, RN - 05/03/2020 4:29 PM EDT S/P left tibia ORIF for tibial plateau fracture, 01/08/2020, Dr Still Mrs Darnell-Case Called and is requesting to know if her Xray from 04/26/2020, can be compared to 04/06/2020, to indicate whether there is now healing in the tibial plateau fracture area. Best Call Back: [phone] documented in this encounter Plan of Treatment Scheduled Procedures Name Priority Associated Diagnoses Date/Ti me COLONOSCOPY, DIAGNOSTIC (WRV U 3.26) Encounter for colorectal cancer screening documented as of this encounter Visit Diagnoses Not on filedocumented in this encounter Care Teams Director Of Purchasing Relationship Specialty Start Date End Date April Cummins APRN [address] [place] [address] PCP - General Internal Medicine 01/06/20 05/20/20 documented as of this encounter
--- OUTSIDE RECORDS SUMMARY | 2024-06-27 15:14 | XMS_ITS | Encounter Summary ---
Author Organization [facility] [place] [address] Care Team Providers Care Director Institution Name Role Phone Susan Elise Arleth SHEETS Primary Care Provider [phone] Reason for Visit * - Closed Specialty Diagnoses / Procedures Referred By Rafael mart Referred To Contact Procedures Film Library- Storage Only MR Spine April Cummins, ZINC ETCHER [address] [place] [address] Referral ID Status Reason Start Date Expiration Date Visits Re quested Visits Authorized [id number] Closed 02/01/2021 02/01/2022 1 1 Encounter Details Date Type Department Care Team (Late st Contact Info) Description 01/04/2021 Ancillary Procedure [place] [address] April Cummins, ZINC ETCHER [address] [place] [address] Social History Tobacco Use Types Packs/Day Years [...] Associated Diagnosis Comments FILM LIBRARY STORAGE ONLY MR SPINE Routine 01/04/2021 12:00 AM EST documented in this encounter Results * Film Library- Storage Only MR Spine (01/04/2021 12:00 AM EST) Narrative DENISE - 02/01/2021 3:49 PM EST This exam is auto-finalizing. It's purpose is for storage only. April Cummins APRN IMCyndee FILM LIBRARY ORD ERABLES Performing Organization Address City/State/[facility] Co de Phone Number [place], [place] documented in this encounter Visit Diagnoses Not on filedocumented in this encounter Care Teams Director Institution Relationship Specialty Start Date End Date Susan Elise ND PCP - General Naturopathic Medicine 05/21/20 01/12/21 documented as of this encounter
--- OUTSIDE RECORDS SUMMARY | 2024-06-27 15:14 | XMS_ITS | Encounter Summary ---
[place] [address] Care Team Providers Care Tong Carrier Name Role Phone April Cummins APRN Primary Care Provider [phone] Reason for Referral * Consultation (Routine) - Closed Specialty Diagnoses / Procedures Referred By Rafael mart Referred To Contact [facility] Diagnoses Injury of cervical spinal cord, subsequent encounter Spine - Cervical foraminal stenosis/ MRI 01/04/21 in e[facility]/ ?CT *AMP or Jed Pelletier MD [facility] [place] [address] [facility] [place] [address] Referral ID Status Reason Start Date Expiration Date V isits Requested Visits Authorized [id number] Closed Consult, Test & Treat 02/01/2021 02/01/2022 1 1 Reason for Visit * Consultation (Routine) - Closed Specialty Diagnoses / Procedures Referred By Rafael mart Referred To Contact Neurology Diagnoses Abnormal findings on diagnostic imaging of other parts of musculoskeletal system Cervicalgia C SPINE MRI April Cummins APRN [address] [place] [address] [facility] [address] [place] [address] Referral ID Status Reason Start Date Expiration Date V isits Requested Visits Authorized [id number] Closed Consult, Test & Treat [facility] 01/13/2021 01/13/2022 6 6 Encounter Details Date Type Department Care Team (Late st Contact Info) Description 02/01/2021 8:00 AM EST [place] [address] Jed Jc MD [facility] [place] [address] Injury of cervical spinal cord, subsequent encounter Social History Tobacco Use Types [...] documented in this encounter Progress Notes * Jed Jc MD - 02/01/2021 8:00 AM [place] [address] 02/01/2021 Patient name: Kalyn Darnell Case Date of : 1960 Referring provider: April Cummins, ASPHALT SPREADER OPERATOR [address] [place] [address] HISTORY REASON FOR REFERRAL/CHIEF COMPLAINT: Neck pain [...] She had MRI of neck done at [facility]. Her daily work is interrupted [...] 8.78) performed by Yolanda Still [facility] ??? PRO OPEN TREAT TIBIA SHAFT FX, SCREWS Left 01/08/2020 ORIF TIBIAL SHAFT, PLATE & SCREWS (WRVU 12.54) performed by Yolanda Still MD at [facility] ??? SHOULDER ARTHROSCOPY [...] drugs. No flowsheet data found. 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 Review of systems: [...] bisglycin chelate, bulk,) Powder [place] [facility]Non-Drug; Combo Route) route. ??? Thyroid, Pork, (REFRIGERATOR REPAIR TECHNICIAN Thyroid) 15 mg Tablet Take 45 mg by mouth daily. ??? castor oil Oil [place] Oil, See Instructions, Apply topically, 0 Refill(s) ??? omega 5-xey-lpe-fish oil (Fish Oil) 100-160-1,000 mg Capsule Take by mouth. ??? ibuprofen (Advil;Motrin) 200 mg Tablet Take 200 mg by mouth every 6 hours as needed for Pain. ??? Ciclesonide (OMNARIS) 50 mcg [place], Non-Aerosol INSTILL TWO SPRAYS IN EACH NOSTRIL [...] Reported on 01/23/2020) 60 tablet 0 ??? Txinbmga4-Qzeqwd6-Qnwru therm. (VISBIOME) 112.5 billion cell Capsule Take [...] GENERAL THYROID: No results found for: TSH, A2MXRFV, FREET4, TT4, THYROIDAB, THGAB FolateNo results found for: SFOLATE ESRNo results found for: SEDRATE CRPNo results found for: CRP B12No results found for: FOUCVBMD20 CKNo results found for: CK Angiotensin ConvertaseNo [...] LDLCHOL, LDLDIRECT SHEILA 65No results found for: DKO74JY ANTI GM1,ANTI SGPG, MAG@RESUFAST (MAGAUTOAB,SGPG,MAGWB,GM1AB)@ HEAVY METAL [...] ANNA1, ANNA2, ANNA3, AGNA1, PCA1, PCA2, PCATYPETR, AMPHIPHYSIN,OTZR3BKS, STRIATMSCLAB, CACHABPQTYPE, CACHABNTYPE, ACHRBINDAB, NEUROKCHAB, NMDARECEPTOR, MYD65EA THROMBOSIS HOMEOCYSTEINENo results found for: HOMOCYSTEINE THROMBOSIS PANELNo results found for: ACAIGM, S1CTEEKOVTY FACTOR V LEIDEN No components found for: [...] ??? Will try and obtain images from [facility] ??? Referral placed for spine surgery evaluation. ??? May need neck PT after spine surgery evaluation. Continue gabapentin/ muscle relaxants ??? Follow up as needed. Jed Jc MD Department of Neurology [facility] documented in this encounter Plan of Treatment Scheduled Procedures Name Priority Associated Diagnoses Date/Ti me COLONOSCOPY, DIAGNOSTIC (WRV U 3.26) Encounter for colorectal cancer screening Scheduled Referrals Name Type Priority Associated Diagnoses Orde r Schedule Referral to Spine Center Outpatient Referral Routine Injury of cervical spinal cord, subsequent encounter Ordered: 02/01/2021 documented as of this encounter Visit Diagnoses Diagnosis Injury of cervical spinal cord, subsequent encounter documented in this encounter Care Teams Tong Carrier Relationship Specialty Start Date End Date April Cummins, KALE [address] [place] [address] PCP - General Internal Medicine 01/13/21 documented as of this encounter
--- OUTSIDE RECORDS SUMMARY | 2024-06-27 15:14 | XMS_ITS | Encounter Summary ---
[place] [address] Care Team Providers Care Career Guidance Counselor Name Role Phone Susan Elise Arleth SHEETS Primary Care Provider [phone] Reason for Visit * Reason Onset Date Comments Other 05/21/2020 Encounter Details Date Type Department Care Team (Late st Contact Info) Description 05/21/2020 [place] [address] Yolanda Still MD [facility] [place] [address] Other Social History Tobacco Use Types Packs/Day [...] encounter Miscellaneous Notes * Telephone Encounter - Chaenll Franklin - 05/21/2020 12:16 PM EDT Upon checkout with patient, I noticed that she had turned around and taken several picture over theproviders/staff in the fish bowl of 3C. I noticed it and made sure to advise the patient the it is actually against the HIPAA Compliance and taking picture without permission and within a facility isnot permitted. Patient advised it is just for her son, I again advised that it is not permitted here at [facility]. I did advise Kathleen Young and was [...] on filedocumented in this encounter Care Teams Career Guidance Counselor Relationship Specialty Start Date End Date Susan Elise ND PCP - General Naturopathic Medicine 05/21/20 01/12/21 documented as of this encounter
--- OUTSIDE RECORDS SUMMARY | 2024-06-27 15:14 | XMS_ITS | Encounter Summary ---
Author Organization [facility] Address [facility] [place] [address] Care Team Providers Care Tub Operator Name Role Phone Susan Elise ND Primary Care Provider [phone] Encounter Details Date Type Department Care Team (Latest Contact Info) Description 05/21/2020 10:22 AM EDT - 05/21/2020 11:59 PM EDT Hospital Encounter XRay at [address] [place] [address] Floyd Grey MD [facility] [place] [address] S/p left tibia ORIF for tibial plateau fracture 01/08/[address] Still Discharge Disposition: Home Social History Tobacco Use [...] Start Date End Date castor oil Oil [place] Oil, See Instructions, Apply topically, 0 Refill(s) 01/18/2020 pyridoxine, vitamin B6, (B-6) 100 mg Tablet Daily, 0 Refill(s) 01/18/2020 Ciclesonide (OMNARIS) 50 mcg [place], Non-Aerosol INSTILL TWO SPRAYS IN EACH NOSTRIL TWICE A DAY 12.5 g 09/08/2019 Kkypqwxh5-Orzxzb7-Jyqa p therm. (VISBIOME) 112.5 billion cell CapsuleIndications:Sma ll intestinal bacterial overgrowth,Irritable bowel syndrome with diarrhea Take 3 capsules by mouth daily. 90 capsule 3 04/29/2019 b complex vitamins Capsule Take 1 capsule by mouth daily. With folic acid B-1,2,3,5,12 Biotin acetylcysteine (NAC ORAL) Take by mouth daily. omega 4-gqk-hvo-fish oil (Fish Oil) 100-160-1,000 mg Capsule Take [...] 2 times daily. 60 tablet 01/09/2020 01/27/2022 cyclobenzaprine (Flexeril) 10 mg Tablet Take 1 tablet by mouth 3 times daily as needed for Muscle spasms. 10 tablet 01/09/2020 07/23/2020 GLUTATHIONE ORAL Take by mouth daily. 09/2022 IODINE ORAL Take 2.5 mg by mouth daily. 04/05/2022 documented as of this encounter Plan of Treatment Scheduled Procedures Name Priority Associated Diagnoses Date/Ti me COLONOSCOPY, DIAGNOSTIC (WRV U 3.26) Encounter for colorectal cancer screening documented as of this encounter Procedures Procedure Name Priority Date/Time Associated Diagnosis Comments XR TIBIA FIBULA LEFT Routine 05/21/2020 10:53 AM EDT S/p left tibia ORIF for tibial plateau fracture 01/08/[address] Still documented in this encounter Results * XR Tibia Fibula Left (Generic) (05/21/2020 10:53 AM EDT) Anatomical Region Laterality Modality Left Digital Radiogra phy Impressions 05/21/2020 11:19 AM EDT 1. ??Osseous bridging at left fibular neck fracture site 2. ??Increased callus deposition at left proximal tibia/tibial plateau fracture. 3. ??No hardware complications. Thank you for letting us participate in the care of this patient. For questions regarding this report, please contact the number below. ? Narrative 05/21/2020 11:19 AM EDT EXAMINATION: XR TIBIA FIBULA LEFT (GENERIC) CLINICAL HISTORY: s/p ORIF L tibial plateau fracture, , entered by ordering service TECHNIQUE: Tibia and fibula, 2 views COMPARISON: none FINDINGS: Bones Tibia- ORIF of left tibial plateau fracture with fixation plate and screws. There is increased callus deposition with partial obliteration of the fracture line. No hardware complications. Fibula-osseous bridging at fibular neck fracture. Joints Knee joint-no malalignment. Tibial talar joint-congruent ankle mortise. Soft tissues Decreased soft tissue swelling Procedure Note Rosaura Saucedo MD - 05/21/2020 EXAMINATION: XR TIBIA FIBULA LEFT (GENERIC) CLINICAL HISTORY: s/p ORIF L tibial plateau fracture, , entered byordering service TECHNIQUE: Tibia and fibula, 2 views COMPARISON: none FINDINGS: Bones Tibia- ORIF of left tibial plateau fracture with fixation plate and screws. Thereis increased callus deposition with partial obliteration of the fractureline. No hardware complications. Fibula-osseous bridging at fibular neck fracture. Joints Knee joint-no malalignment. Tibial talar joint-congruent ankle mortise. Soft tissues Decreased soft tissue swelling IMPRESSION 1. Osseous bridging at left fibular neck fracture site 2. Increased callus deposition at left proximal tibia/tibial plateaufracture. 3. No hardware complications. Thank you for letting us participate in the care of this patient. Forquestions regarding this report, please contact the number below. Floyd Grey MD IMG DX ORDERABLES documented in this encounter Visit Diagnoses Diagnosis S/p left tibia ORIF for tibial plateau fracture 01/08/[address] Still documented in this encounter Care Teams Tub Operator Relationship Specialty Start Date End Date Susan Elise ND PCP - General Naturopathic Medicine 05/21/20 01/12/21 documented as of this encounter
--- OUTSIDE RECORDS SUMMARY | 2024-06-27 15:14 | XMS_ITS | Encounter Summary ---
Author Organization [facility] [place] [address] Care Team Providers Care Coding Spec Name Role Phone Rosita Cumminsyce Tanvir HENLEY Primary Care Provider [phone] Encounter Details Date Type Department Care Team (Latest Contact Info) Description 07/27/2021 10:19 AM EDT - 07/27/2021 11:59 PM EDT Hospital [place] [address] Discharge Disposition: Home Social History Tobacco Use [...] End Date GLYCERIN, ADULT, RECT Place rectally. 06/28/2021 fluticasone propionate (Flonase) 50 mcg/actuation [place], Suspension 1 spray by Each Nare route daily. NEEDED 05/03/2021 EPINEPHrine 0.3 mg/0.3 mL Auto-Injector Inject 0.3 mLs into the muscle once as needed (allergic reaction ( tight throat, difficulty breathing, lightheaded)). 1 kit 3 07/27/2021 ferrous bis-glycinate chelate (iron bisglycin chelate, bulk,) Powder [place] [facility]Non-Drug; Combo Route) route. Thyroid, Pork, ([place] Thyroid) 15 mg Tablet Take 45 mg by mouth daily. 30mg and 15mg castor oil Oil [place] Oil, See Instructions, Apply topically, 0 Refill(s) 01/18/2020 pyridoxine, vitamin B6, (B-6) 100 mg Tablet Daily, 0 Refill(s) 01/18/2020 Ciclesonide (OMNARIS) 50 mcg [place], Non-Aerosol INSTILL TWO SPRAYS IN EACH NOSTRIL TWICE A DAY 12.5 g 09/08/2019 Tbadoxqd7-Sbnnwl8-Hxd ep therm. (VISBIOME) 112.5 billion cell CapsuleIndications:Sm all intestinal bacterial overgrowth,Irritable bowel syndrome with diarrhea Take 3 capsules by mouth daily. 90 capsule 3 04/29/2019 b complex vitamins Capsule Take 1 capsule by mouth daily. With folic acid B-1,2,3,5,12 Biotin acetylcysteine (NAC ORAL) Take by mouth daily. Lactobacil 2-S.thermo-Bifido 1 (LACTOBAC #2-BIFIDO #1-S. THERM ORAL) Take 3 capsules by mouth. 01/17/2021 07/24/2022 pantoprazole EC (Protonix) 40 mg Tablet, Delayed Release (E.C.) Take 40 mg by mouth daily as needed. 06/28/2021 07/24/2022 naproxen sodium (ALEVE) 220 mg Capsule Take by mouth. 01/27/2022 omega 5-hjs-shy-fish oil (Fish Oil) 100-160-1,000 mg Capsule Take by mouth. 01/18/2020 01/27/2022 oxyCODONE (Roxicodone) 5 mg TabletIndications:Estrellita sed displaced comminuted fracture of shaft of left [...] on filedocumented in this encounter Care Teams Coding Spec Relationship Specialty Start Date End Date April Cummins, HALF SOLE FITTER [address] [place] [address] PCP - General Internal Medicine 01/13/21 documented as of this encounter
--- OUTSIDE RECORDS SUMMARY | 2024-06-27 15:14 | XMS_ITS | Encounter Summary ---
Author Organization [facility] Address [facility] [place] [address] Care Team Providers Care Environmental Economist Name Role Phone April Cummins KALE Primary Care Provider [phone] Encounter Details Date Type Department Care Team (Late st Contact Info) Description 04/26/2020 Ancillary Procedure [place] [address] Yolanda Still MD [facility] [place] [address] Social History Tobacco Use Types Packs/Day Years [...] Diagnosis Comments FILM LIBRARY STORAGE ONLY DX LOWER EXTREMITY Routine 04/26/2020 12:00 AM EDT documented in this encounter Results * Film Library- Storage Only DX Lower Extremity (04/26/2020 12:00 AM EDT) Narrative RAD - 04/30/2020 2:22 PM EDT This exam is auto-finalizing. It's purpose is for storage only. Yolanda Still MD IMG FILM LIBRARY ORD ERABLES [place], [place] documented in this encounter Visit Diagnoses Not on filedocumented in this encounter Care Teams Environmental Economist Relationship Specialty Start Date End Date April Cummins, KALE [address] [facility] [place] [address] PCP - General Internal Medicine 01/06/20 05/20/20 documented as of this encounter
--- OUTSIDE RECORDS SUMMARY | 2024-06-27 15:14 | XMS_ITS | Encounter Summary ---
[place] [address] Care Team Providers Care Wage And Salary Specialist Name Role Phone Susan Elise Arleth SHEETS Primary Care Provider [phone] Reason for Visit * Reason Onset Date Comments Follow-up 07/26/2020 Encounter Details Date Type Department Care Team (Late st Contact Info) Description 07/26/2020 Telephone [place] [phone] Yolanda Still MD [facility] [place] [address] Follow-up Social History Tobacco Use Types Packs/Day Years [...] encounter Miscellaneous Notes * Telephone Encounter - Yahaira Flores - 07/30/2020 1:29 PM EDT Unable to contact, letter sent via My . * Telephone Encounter - Jojo Fowler - 07/29/2020 9:40 AM EDT LM #2 to schedule 4 month follow up with Gitajn/ Team (XR of both ankle and knee)- Orders are in FVE: XR L proximal tibia fx 01/06/20 ORIF 01/08/20 * Telephone Encounter - Frances Hays - 07/26/2020 [...] on filedocumented in this encounter Care Teams Wage And Salary Specialist Relationship Specialty Start Date End Date Susan Elise ND PCP - General Naturopathic Medicine 05/21/20 01/12/21 documented as of this encounter
--- OUTSIDE RECORDS SUMMARY | 2024-06-27 15:14 | XMS_ITS | Encounter Summary ---
Author Organization [facility] Address [facility] [place] [address] Care Team Providers Care Senior Sales Engineer Name Role Phone Rosita Cumminsyce Tanvir HENLEY Primary Care Provider [phone] Reason for Referral * Physical Therapy (Routine) - Closed Specialty Diagnoses / Procedures Referred By Rafael mart Referred To Contact Physical Therapy Diagnoses Headache, cervicogenic Headache Jed Jc MD [facility] [place] [address] [address] [place] [address] Referral ID Status Reason Start Date Expiration Date V isits Requested Visits Authorized [id number] Closed Evaluate and Treat 01/31/2022 01/31/2023 12 12 Encounter Details Date Type Department Care Team (Late st Contact Info) Description 01/31/2022 3:00 PM EST Office Visit Neurology at [facility] [place] [address] Jed Jc MD [facility] [place] [address] Headache, cervicogenic; Injury of cervical spinal cord, subsequent encounter [...] Progress Notes * Jed Jc MD - 01/31/2022 3:00 PM EST Images from the original note were not included[place] [address] 01/31/2022 Patient name: Kalyn Darnell Case Date of : 1960 Referring provider: April Cummins, [employer]PERVIS[employer] [address] [place] [address] HISTORY REASON FOR REFERRAL/CHIEF COMPLAINT: Neck pain [...] She had MRI [facility] neck done at [facility]. Her daily work is interrupted due to [...] 8.78) performed by Yolanda Still MD at [facility] MAIN OR ??? PRO OPEN TREAT TIBIA SHAFT FX, SCREWS Left 01/08/2020 ORIF TIBIAL SHAFT, PLATE & SCREWS (WRVU 12.54) performed by Yolanda Still MD at [facility] MAIN OR ??? SHOULDER ARTHROSCOPY ??? [...] No flowsheet data found. Lives 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 Review of systems: [...] mouth. ??? fluticasone propionate (Flonase) 50 mcg/actuation Basye, Suspension by Nasal route. ??? pantoprazole EC (Protonix) 40 mg Tablet, Delayed Release (E.C.) Take by mouth. ??? EPINEPHrine 0.3 mg/0.3 mL Auto-Injector Inject 0.3 mLs into the muscle once as needed (allergicreaction ( tight throat, difficulty breathing, lightheaded)). 1 kit 3 ??? ferrous bis-glycinate chelate (iron bisglycin chelate, bulk,) Powder by Misc.(Non-Drug; Combo Route) route. ??? Thyroid, Pork, ([place] Thyroid) 15 mg Tablet Take 45 mg by mouth daily. ??? castor oil Oil [place] Oil, See Instructions, Apply topically, 0 Refill(s) ??? pyridoxine, vitamin B6, (B-6) 100 mg Tablet Daily, 0 Refill(s) ??? polyethylene glycol (Miralax) 17 gram Powder in Packet Take 17 g by mouth 2 times daily. (Patient not taking: No sig reported) 14 each 0 ??? Ciclesonide (OMNARIS) 50 mcg Basye, Non-Aerosol INSTILL TWO SPRAYS IN EACH NOSTRIL TWICE A DAY (Patient not taking: No sig reported) 12.5 g 0 ??? Gfoegqen2-Qsauus0-Uygie therm. (VISBIOME) 112.5 billion cell Capsule Take [...] GENERAL THYROID: No results found for: TSH, N0JSSOW, FREET4, TT4, THYROIDAB, THGAB FolateNo results found for: SFOLATE ESRNo results found for: SEDRATE CRPNo results found for: CRP B12No results found for: [id number] CKNo results found for: CK Angiotensin ConvertaseNo [...] LDLCHOL, LDLDIRECT SHEILA 65No results found for: FHI45HM ANTI GM1,ANTI SGPG, MAG@RESUFAST (MAGAUTOAB,SGPG,MAGWB,GM1AB)@ HEAVY METAL [...] ANNA1, ANNA2, ANNA3, AGNA1, PCA1, PCA2, PCATYPETR, AMPHIPHYSIN,DDPP5OLE, STRIATMSCLAB, CACHABPQTYPE, CACHABNTYPE, ACHRBINDAB, NEUROKCHAB, NMDARECEPTOR, KVM81MS THROMBOSIS HOMEOCYSTEINENo results found for: HOMOCYSTEINE THROMBOSIS PANELNo results found for: ACAIGM, F6ZDYUDXIQO FACTOR V LEIDEN No components found for: FACTORVLEIDEN PROTEIN C,SNo components found for: PROTEINC, PROTEINS ANTITHROMBIN IIINo components found for: ANTITHROMBINIII Miscellaneous Send outs Lab Results Component Value Date MISAY 07/27/2021 Test Result Flag Unit RefValue Gilma Albicans(Monilia), IgE <0.35 kU/L Class 0 (Negative <0.35) Test Performed by: [facility] [place] [address] Construction Project Assistant: Eusebio Virgen M.D. Ph.D.; CLIA# [id number] CT Head: 12/2019: Unremarkable. MRI C spine: [...] month. Jed Jc MD Department of Neurology [facility] documented in this encounter Plan of Treatment Scheduled Procedures Name Priority Associated Diagnoses Date/Ti me COLONOSCOPY, DIAGNOSTIC (WRV U 3.26) Encounter for colorectal cancer screening Scheduled Referrals Name Type Priority Associated Diagnoses Orde r Schedule Referral to Physical Therapy Outpatient Referral Routine Headache, cervicogenic Ordered: 01/31/2022 documented as of this encounter Visit Diagnoses Diagnosis Headache, cervicogenic Headache Injury of cervical spinal cord, subsequent encounter documented in this encounter Care Teams Senior Sales Engineer Relationship Specialty Start Date End Date April Cummins APRN [address] [place] [address] PCP - General Internal Medicine 01/13/21 documented as of this encounter
--- OUTSIDE RECORDS SUMMARY | 2024-06-27 15:15 | XMS_ITS | Encounter Summary ---
Author Organization [facility] [place] [address] Care Team Providers Care Candle Molder Hand Name Role Phone April Cummins KALE Primary Care Provider [phone] Encounter Details Date Type Department Care Team (Late st Contact Info) Description 03/23/2020 2:35 PM EDT Ancillary Procedure [place] [address] Yolanda Still MD [facility] DR [place] [address] Social History Tobacco Use Types Packs/Day Years [...] LIBRARY STORAGE ONLY DX LOWER EXTREMITY Routine 03/23/2020 2:33 PM EDT documented in this encounter Results * Film Library- Storage Only DX Lower Extremity (03/23/2020 2:33 PM EDT) Narrative RAD - 03/23/2020 2:33 PM EDT This exam is auto-finalizing. It's purpose is for storage only. Yolanda Still MD IMG FILM LIBRARY ORD ERABLES [place], [place] documented in this encounter Visit Diagnoses Not on filedocumented in this encounter Care Teams Candle Molder Hand Relationship Specialty Start Date End Date April Cummins, KALE [address] [place] [address] PCP - General Internal Medicine 01/06/20 05/20/20 documented as of this encounter
--- OUTSIDE RECORDS SUMMARY | 2024-06-27 15:15 | XMS_ITS | Encounter Summary ---
[place] [address] Care Team Providers Care Deputy Sheriff Generalist/Bailiff Name Role Phone April Cummins Tanvir HENLEY Primary Care Provider [phone] Reason for Visit * Auth/Cert Specialty Diagnoses / Procedures Referred By Rafael mart Referred To Contact Diagnoses Tibia fracture Trauma Procedures ER IPI Admit Referral ID Status Reason Start Date Expiration Date Visits Re quested Visits Authorized [id number] 1 1 Encounter Details Date Type Department Care Team (Late st Contact Info) Description 01/08/2020 1:18 PM EST Anesthesia Event [place] [address] [facility] [place] [address] [facility] [place] [address] Anesthesia Record Procedure Summary Procedure Name Responsible Anesthesiologist Anesthesia Start Time Anesthesia Stop Time ORIF TIBIAL SHAFT, PLATE & SCREWS (WRVU 12.54) (Left: Leg Lower) Elio Mitchell MD 01/08/20 1318 01/08/20 1456 Events Date Time Event Comment 01/08/2020 1138 1318 AN Verify 1318 Start 1318 An Start Data 1326 An Induction 1327 An Intubation 1329 Anesthesia Ready 1340 An Tourn Inflated 1455 Extubation/LMA Out 1455 an stop data 1455 Recovery or ICU Handoff Michelle ent care was transferred to the destination unit staff after review of the patient's medical history, current anesthetic/surgical status and plan, according to the Provider Handoff Checklist. 1456 Stop Meds Name Total Propofol 100 mg Dexamethasone 4 mg Ondansetron 4 mg ePHEDrine 20 mg PHENYLephrine 160 mcg BUpivacaine 0.5% 30 mL * Agents Name O2 Air N2O Sevoflurane (et) * Blood No blood administrations on file. Lines, Drains, and Airways Type Details Placement Removal Urethral Catheter 01/06/20; 1602; Physician order; Prolonged Immobilization; indwelling single lumen catheter; present on admission to this facility; 01/09/20; 92101/06/20 1602 by Shraddha Grullon RN 01/09/20921 by Shavonne Wilkins LNA External Fixator 01/06/20; 2008; LLE; 01/08/20; 1355 01/06/202008 by Kena Brush RN 01/08/20 1355 by Eugenie Seaman RN (RETIRED) Peripheral IV Line - Single Lumen 01/07/20; 1520; basilic vein (medial side of arm), right; jhjz-mgc-kqqibu catheter system; 22 gauge, 1 in length; Huan ROACH VAS; distraction, appears comfortable, age-appropriate response; leaking at site; removed per policy/procedure, other (see comments); 01/09/20; 1426 01/07/20 1520 by Raymond Wong RN 01/09/20 1426 by Marlyn Islas, MARLEY ETT Removal Date: 01/08/20; Removal Time: 145401/08/20 1332 by Sam Bland MD 01/08/20 1455 by Sam Bland MD Supraglottic Mask Ventilation: No t Attempted (0); LMA Type: iGel; LMA Size: 3; Inserted by: wesley; Removal Date: 01/08/20; Removal Time: 145401/08/20 1332 by Sam Bland MD 01/08/20 1455 by Sam Bland MD Incision 01/08/20; 1341; knee ; vertical; 07/24/22 (LDA cleanup utility RA#[id number]); 1715 (LDA cleanup utility RA#[id number]) 01/08/20 1341 by Eugenie Seaman RN 07/24/22 1715 by Sesar Alonso documented in this encounter Social History Tobacco [...] OR Notes * Anesthesia Postprocedure Evaluation - Sam Bland - 01/08/2020 5:11 PM EST Department of Anesthesiology Post-procedure Note Patient: Kalyn Darnell Case Procedure Summary Date: 01/08/20 Room / Location: [facility] OR [address] [place] [address] MAIN OR Anesthesia Start: 1318 Anesthesia Stop: 1456 Procedures: ORIF TIBIAL SHAFT, PLATE & SCREWS (WRVU 12.54) (Left Leg Lower) MODIFIER TIBIA SABRINA SYSTEM SYNTHES (N/A Leg Lower) MODIFIER LOCKING SMALL FRAGMENT SYNTHES (N/A ) Diagnosis: (L proximal tibia fracture) Surgeon: Yolanda Still MD Responsible Provider: Elio Mitchell MD Anesthesia Type: general ASA Status: 2 All Anesthesia Providers: Anesthesiologist: Elio Mitchell MD Parts Control Clerk: Sam Blnad MD Vitals Value Taken Time BP 112/64 01/08/2020 4:00 PM Temp 37.3 ??C (99.1 ??F) 01/08/2020 4:00 PM Pulse 68 01/08/2020 4:10 PM Resp 15 01/08/2020 4:10 PM SpO2 97 % 01/08/2020 4:30 PM Pain Level 0 01/08/2020 4:00 PM Vitals shown include unvalidated device data. Patient Location: PACU/[facility] Level of Consciousness: Awake and Alert Pain Management: Satisfactory Analgesia PONV: None Cardiovascular Status: At Baseline and Hemodynamically Stable Respiratory Status: At Baseline and Room Air Postoperative Fluid Status: Intravascular EUvolemia Possible Anesthetic Complications: NONE apparent at time of evaluation Final Primary Anesthesia Type: General (The anesthetic type performed was the same as planned.) Comments: Sam Bland MD * Anesthesia Procedure Notes - Dennis Ronquillo MD [...] hygeine Skin Anesthetic: Lidocaine 1% dose: 3 C-krcze-klwbl 21 10 cm Single-Shot: Single-shot BUpivacaine 0.5%, 30 mL no complications Resident/PANEL SEWER:: Dennis Ronquillo MD Attending Physician:: Javier Urbina MD Negative aspiration every 5cc Proximal popliteal block: 23cc Saph: 7cc No complications. * Anesthesia Preprocedure Evaluation - Sam Bland - [...] 8.78) performed by Yolanda Still MD at [facility] MAIN OR ??? SHOULDER ARTHROSCOPY ??? [...] a kidney stone or infection vs gas pain. Benign abdominal exam, KUB ordered by primary team. [...] Note documented in this encounter Miscellaneous Notes * Addendum Note - Dennis Ronquillo MD - 01/13/2020 10:22 AM EST Addendum created 01/13/20 1022 by Dennis Ronquillo MD Clinical Note Signed documented in this encounter Plan of Treatment Scheduled Procedures Name Priority Associated Diagnoses Date/Ti me COLONOSCOPY, DIAGNOSTIC (WRV U 3.26) Encounter for colorectal cancer screening documented as of this encounter Procedures Procedure Name Priority Date/Time Associated Diagnosis Comments ANESTHESIA BLOCK Routine 01/08/2020 1:25 PM EST documented in this encounter Results * Anesthesia Block (01/08/2020 1:25 PM EST) Narrative [...] pain management at the request of surgeon. ?? Block Type: ??Sciatic sciatic/ popliteal nerve block Laterality: ??Left Position: ??Supine Prep: ??Chlorhexidine, patient draped and mask, cap, sterile gloves, hand hygeine Skin Anesthetic: ??Lidocaine 1% dose: ??3 T-jsptp-josqy 21 10 cm Single-Shot: ??Single-shot BUpivacaine 0.5%, 30 mL no complications ?? Resident/PANEL SEWER:: ??Dennis Ronquillo MD Attending Physician:: ??Javier Urbina MD Negative aspiration every 5cc Proximal popliteal block: 23cc Saph: 7cc No complications. Javier Urbina MD ASSISTANT PROFESSOR IN FAMILY STUDIES [facility] documented in this encounter Visit Diagnoses Not on filedocumented in this encounter Administered Medications Inactive Administered Medications - up to 3 most recent administrations Medication Order MAR Action Action Date Dose Rate Site BUpivacaine (PF) (MARCAINE) 0.5 % (5 mg/mL) injection Starting on Sonal 01/08/20 at 1310, Until Sonal 01/08/20 at 1310, Anesthesia Intra-op, Routine Given 01/08/2020 1:10 PM EST 30 mLs dexamethasone (DECADRON) injection Intravenous, PRN, Starting on Sonal 01/08/20 at 1336, Until Sonal 01/08/20 at 1456, Anesthesia Intra-op, Routine Given 01/08/2020 1:36 PM EST 4 mg ePHEDrine 5 mg/mL multi-dose injection Intravenous, PRN, Starting on Sonal 01/08/20 at 1333, Until Sonal 01/08/20 at 1456, Anesthesia Intra-op, Routine Given 01/08/2020 1:45 PM EST 10 mg Given 01/08/2020 1:33 PM EST 10 mg ondansetron (ZOFRAN) injection Intravenous, PRN, Starting on Sonal 01/08/20 at 1438, Until Sonal 01/08/20 at 1456, Anesthesia Intra-op, Routine Given 01/08/2020 2:38 PM EST 4 mg PHENYLephrine in NS (PF) (COLE-SYNEPHRINE) 0.8 mg/10 mL (80 mcg/mL) multi-dose injection Syrg Intravenous, PRN, Starting on Sonal 01/08/20 at 1333, Until Sonal 01/08/20 at 1456, Anesthesia Intra-op, Routine Given 01/08/2020 1:45 PM EST 80 mcg Given 01/08/2020 1:33 PM EST 80 mcg propofol (DIPRIVAN) 10 mg/mL bolus injection (Anesthesia) Intravenous, PRN, Starting on Sonal 01/08/20 at 1326, Until Sonal 01/08/20 at 1456, Anesthesia Intra-op Given 01/08/2020 1:26 PM EST 100 mg documented in this encounter Care Teams Deputy Sheriff Generalist/Bailiff Relationship Specialty Start Date End Date April Cummins APRN [address] [place] [address] PCP - General Internal Medicine 01/06/20 05/20/20 documented as of this encounter
--- OUTSIDE RECORDS SUMMARY | 2024-06-27 15:15 | XMS_ITS | Encounter Summary ---
Author Organization [facility] Address [facility] [place] [address] Care Team Providers Care Fire Department Battalion Chief Name Role Phone April Cummins KALE Primary Care Provider [phone] Encounter Details Date Type Department Care Team (Late st Contact Info) Description 03/23/2020 2:40 PM EDT Ancillary Procedure [place] [address] Yolanda Still MD [facility] DR [place] [address] Social History Tobacco Use Types Packs/Day Years [...] Diagnosis Comments FILM LIBRARY STORAGE ONLY DX ANKLE Routine 03/23/2020 2:34 PM EDT documented in this encounter Results * Film Library- Storage Only DX Ankle (03/23/2020 2:34 PM EDT) Narrative RAD - 03/23/2020 2:34 PM EDT This exam is auto-finalizing. It's purpose is for storage only. Yolanda Still MD IMG FILM LIBRARY ORD ERABLES [place], [place] documented in this encounter Visit Diagnoses Not on filedocumented in this encounter Care Teams Fire Department Battalion Chief Relationship Specialty Start Date End Date April Cummins APRN [address] [place] [address] PCP - General Internal Medicine 01/06/20 05/20/20 documented as of this encounter
--- OUTSIDE RECORDS SUMMARY | 2024-06-27 15:15 | XMS_ITS | Encounter Summary ---
[place] [address] Care Team Providers Care Quality Technician Name Role Phone April Cummins KALE Primary Care Provider [phone] Encounter Details Date Type Department Care Team (Late st Contact Info) Description 01/09/2020 Notes [place] [address] Sr Osmani Hadley Social History Tobacco Use Types Packs/Day Years [...] as of this encounter Progress Notes * Sr Osmani Hadley - 01/09/2020 2:38 PM EST Images from the original note were not included. Study Title: Major Extremity Trauma Research Consortium (METRC): PREVENTion of Clot in Orthopaedic Trauma (PREVENT CLOT): A Randomized Pragmatic Trial Comparing theComplications and Safety of Blood Clot Prevention Medicines Used in Orthopaedic Trauma Patients Potato Chip Maker: Yolanda Heaton number: [id number] Visit: Baseline Date: 01/09/2020 Consent Time: 2:03 PM Subject Number: [id number] Informed consent for the above entitled study was reviewed with subject in detail. The details of the study, length of study, and risks were reviewed with subject. Upon review, subject verbalized adequate understanding of the protocol and signed the consent along with me. No study procedures were initiated prior to signing the consent. A copy was provided to subject, and the original consent willbe kept with the study chart. Subject MEETS all [...] on filedocumented in this encounter Care Teams Quality Technician Relationship Specialty Start Date End Date April Cummins APRN [address] [place] [address] PCP - General Internal Medicine 01/06/20 05/20/20 documented as of this encounter
--- OUTSIDE RECORDS SUMMARY | 2024-06-27 15:15 | XMS_ITS | Encounter Summary ---
Author Organization [place] [address] Care Team Providers Care Pile Driver Operator Barge Mounted Name Role Phone April Cummins KALE Primary Care Provider [phone] Encounter Details Date Type Department Care Team (Late st Contact Info) Description 01/21/2020 Telephone Dermatology at [facility] [address] [place] [address] Carrillo Spicer MD [facility] [address] [place] [address] Social History Tobacco Use Types Packs/Day Years [...] encounter Miscellaneous Notes * Telephone Encounter - Jacquelin Marion SUJATA Liu - 01/21/2020 4:23 PM EST I called and spoke to the patient in regards to this message. She was wondering if she should keep her appointment that is scheduled for 01/27/2020 or if she should cancel it. She states that since it is difficult for her to travel due to her leg fracture. She will check with her doctor on Sunday to see if it is worth her coming in for her follow up. SUJATA Arredondo * Telephone Encounter - Daphnie Browne - 01/21/2020 1:52 PM EST Patient contacted the clinic today with a question regarding her upcoming followup visit on January 25. Patient has been diagnosed with a highly communicable tibial fracture and there is a concern about bone fragments under the skin. Patient states doctors are also concerned about compartment syndrome.Patient stated during our conversation that the area on her knee is not displaying a discharge. She is wondering if this is something we can address or if she should postpone her follow up. Patient can be reached at [phone]. documented in this encounter Plan of Treatment Scheduled Procedures Name Priority Associated Diagnoses Date/Ti me COLONOSCOPY, DIAGNOSTIC (WRV U 3.26) Encounter for colorectal cancer screening documented as of this encounter Visit Diagnoses Not on filedocumented in this encounter Care Teams Pile Driver Operator Barge Mounted Relationship Specialty Start Date End Date April Cummins APRN [address] [place] [address] PCP - General Internal Medicine 01/06/20 05/20/20 documented as of this encounter
--- OUTSIDE RECORDS SUMMARY | 2024-06-27 15:15 | XMS_ITS | Encounter Summary ---
[place] [address] Care Team Providers Care Piper Helper Name Role Phone April Cummins KALE Primary Care Provider [phone] Reason for Visit * Reason Comments Leg Injury skiing accident * Auth/Cert Specialty Diagnoses / Procedures Referred By Rafael t Referred To Contact Diagnoses Tibia fracture Trauma Procedures ER IPI Admit Referral ID Status Reason Start Date Expiration Date Visits Re quested Visits Authorized [id number] 1 1 Encounter Details Date Type Department Care Team (Late st Contact Info) Description 01/08/2020 11:54 AM EST - 01/08/2020 2:52 PM EST [place] [address] Yolanda Still MD [facility] DR OR[place]OP[place] [address] ORIF TIBIAL SHAFT, PLATE & SCREWS (WRVU 12.54) Social History Tobacco Use Types Packs/Day Years [...] 36.3 ??C (97.3 ??F) 01/08/2020 12:[address] Respiratory Rate 20 01/08/2020 12:19 PM EST Oxygen Saturation 97% 01/08/2020 1:10 PM EST Inhaled Oxygen Concentration - - Weight 56.7 kg (125 lb) 01/06/2020 4:01 PM EST Height 165.1 cm (5' 5) 01/06/2020 4:01 PM EST Body Mass Index 20.8 01/06/2020 4:01 PM EST documented in this encounter Discharge Summaries * Hetal Lambert PA - 01/09/2020 4:00 PM EST Discharge Summary Patient Name: Kalyn Darnell Case Patient Age: 59 y.o. Language: Gibraltarian Race: White Ethnicity: Not nor Admit date: 01/06/2020 Discharge date and time: 01/09/2020 Attending Physician: Yolanda Still MD Discharge Physician: Yolanda Still MD Follow-up Recommendations for Providers: See discharge instructions for additional details. Future Appointments Date Time Provider Department Center 01/23/2020 9:15 AM [facility] DX ROOM 3 Xray [facility] Rad 01/23/2020 10:20 AM Yolanda Still MD [facility] ORTH 3C [facility] 01/27/2020 2:00 PM Carrillo Rogel MD [facility] Inpatient Provider Contact Information: Yolanda Still MD Orthopedics: [phone] After hours and weekends, call [facility] Motorcycle Tester, , and have the Orthopedic resident paged. [...] left proximal tibia fracture after a fall whileskiing 2 days ago. The patient was subsequently transferred to [facility] where was noted that she had threatened skin anteriorly. She was subsequently placed into external fixation. Her skin was inspected this morning and her degree of swelling was deemed amenable to internal fixation today. After an extensive discussion with the patient regarding the risks and benefits of surgical versus nonoperative management of her injury, the patient elected to proceed with open reduction and internal fixationof her left proximal tibia fracture. Hospital Course: Kalyn Burgos was admitted from the Emergency Department for evaluation and treatment of the above injury. On HD#1 she was taken to surgery [...] left leg. She was noted to have instability intraoperatively. An MRI obtained on HD#3 showed a low grade ACL tear. Patient was instructed to continue wearing Neffs brace. The patient was voiding spontaneously in [...] of tibial fracture TECHNIQUE: CT of the leftknee performed without intravenous contrast COMPARISON: Radiographs of the left knee from January 06, 2020 FINDINGS: There is redemonstration of a highly comminuted displaced fracture of the proximal tibial diaphysis. Fracture is comminuted with displacement and depression fracture of the central posterior aspect of both the middle and lateral tibial plateau with fragmentation of the tibial spines. There is a minimally displaced depressed fracture of the posterior lateral aspect of the lateraltibial plateau. Fracture extends inferiorly to involve the [...] patient. For questions regarding this report, please contactthe number below. Pending Studies and Lab Data at Discharge: * No orders in the log * Transfusions: No Discharge Conditions/Prognosis: Stable, awake, and alert. Mobilizing as noted above, pain controlled on oral medications. Discharge to: Rehab [facility] [address] [place] [address] Updated Allergies/ADRs: Allergies Allergen Reactions ??? Milk [...] tab for moderate pain (4-6) or 2 tabsfor severe pain (7-10)). 2-4 mg Quantity: 40 [...] 1 capsule Refills: 0 Ciclesonide 50 mcg [place] Commonly known as: Omnaris INSTILL TWO SPRAYS IN EACH NOSTRIL TWICE A DAY Quantity: 12.5 g Refills: 0 FLUoxetine 10 mg Tab Commonly known as: PROzac Take 10 mg by mouth 3 times daily. 10 mg Refills: 0 GLUTATHIONE ORAL Take by mouth daily. Refills: 0 IODINE ORAL Take 2.5 mg by mouth daily. 2.5 mg Refills: 0 Ezqyrvpq7-Nwnhdd9-Ojrwg therm. 112.5 billion cell Cap Commonly known [...] leg. ROM of knee as tolerated in Neffs brace at all times except for hygiene [...] increase your intake of high protein foods andfluids. Driving: None until you are cleared to do so by your Orthopedic surgeon. You should not drive whileyou are on narcotic pain meds as they can affect your judgment and reaction time. Call your surgeonwith any questions/concerns. Medications: 1. The pain medication you are on can cause constipation so increase your intake of fluids and fiber while you are on them. The stool softener, Pericolace, that has been prescribed can also be taken to facilitate a bowel movement. You can also take an fmox-srp-ezblmqq medication, Miralax if needed to combat constipation. [...] that you can take Tylenol as needed per package insert. Do not take more than 3,000mg [...] bench for balance if you are unable to safely stand. A sponge bath may be easier. [...] or decrease wound sensitivity. Call your doctor ([phone]) if you develop: 1. Fever greater than [...] 1. You will have follow-up appointments at [facility] as indicated in Future Appointment and Orders. [...] appointment within that timeframe, as your follow-up is important to us. Future Appointments Date Time Provider Department Center 01/23/2020 9:15 AM [facility] DX ROOM 3 MH Xray [facility] Rad 01/23/2020 10:20 AM Yolanda Still MD [facility] ORTH 3C [facility] 01/27/2020 2:00 PM Carrillo Rogel MD [facility] D[facility] If you have questions or concerns: [...] Provider Department Dept Phone 01/23/2020 9:15 AM [facility] DX ROOM 3 XRay at [facility] Arrive at: Acid Supervisor Area [phone] Please go to Acid Supervisor Area ([place] Location). 01/23/2020 10:20 AM Yolanda Still MD Orthopaedics at [facility] Arrive at: Acid Supervisor Area [phone] 01/27/2020 2:00 PM Carrillo Rogel MD [facility] Arrive at: Acid Supervisor [address] [place] [address] Future Orders Complete By Expires XR Knee 1-2 Views Left (Generic) [[id number] Custom] 01/14/2020 (Approximate) 07/15/2020 Process Instructions: Scheduling Instructions: Comments: Questions: Where will study be performed?: [facility] Radiology Portable exam?: Reason for exam and clinical history: S/p ex-fix Clinical information / shah questions: Stat read required?: Date of injury if applicable: Requested Time: XR Tibia Fibula Left (Generic) [[id number] Custom] 01/14/2020 (Approximate) 07/15/2020 Process Instructions: Scheduling Instructions: Questions: Where will study be performed?: [facility] Radiology Portable exam?: Reason for exam and clinical history: s/p L ex-fix Clinical information / shah questions: Stat read required?: Date of injury if applicable: Requested Time: XR Tibia Fibula Left (Generic) [[id number] Custom] 01/22/2020 (Approximate) 07/23/2020 Process Instructions: Scheduling Instructions: Questions: Where will study be performed?: [facility] Radiology Portable exam?: Reason for exam and clinical history: s/p ORIF L tibia fracture Clinical information / shah questions: Stat read required?: Date of injury if applicable: Requested Time: Primary Care Provider: April Cummins APRN [phone] Discharge References/Attachments None documented in this encounter Discharge Instructions * Patient Instructions* Hetal Lambert PA - 01/09/2020 3:52 PM EST Orthopedic Surgery Discharge Instructions 1. Left proximal tibia fracture s/p ORIF and partial ACL tear. Activity level: 1. You are Non-weight bearing on your Left leg. ROM of knee as tolerated in Neffs brace at all times except for hygiene [...] increase your intake of high protein foods andfluids. Driving: None until you are cleared to do so by your Orthopedic surgeon. You should not drive whileyou are on narcotic pain meds as they can affect your judgment and reaction time. Call your surgeonwith any questions/concerns. Medications: 1. The pain medication you are on can cause constipation so increase your intake of fluids and fiber while you are on them. The stool softener, Pericolace, that has been prescribed can also be taken to facilitate a bowel movement. You can also take an kdjn-rih-wahruyr medication, Miralax if needed to combat constipation. [...] that you can take Tylenol as needed per package insert. Do not take more than 3,000mg [...] bench for balance if you are unable to safely stand. A sponge bath may be easier. [...] or decrease wound sensitivity. Call your doctor ([phone]) if you develop: 1. Fever greater than [...] 1. You will have follow-up appointments at [facility] as indicated in Future Appointment and Orders. [...] appointment within that timeframe, as your follow-up is important to us. Future Appointments Date Time Provider Department Center 01/23/2020 9:15 AM [facility] DX ROOM 3 MH Xray [facility] Rad 01/23/2020 10:20 AM Yolanda Still MD [facility] ORTH 3C [facility] 01/27/2020 2:00 PM Carrillo Rogel MD [facility] If you have questions or concerns: Sunday through Sunday, 8 AM - 5 PM, please call Yolanda Still MD, 's office at . If it is after 5 PM or on the weekend, please call and ask to speak with the Orthopedic resident on-call. documented in this encounter Medications at Time of Discharge Medication Sig Dispensed Refills Start Date End Date Ciclesonide (OMNARIS) 50 mcg [place], Non-Aerosol INSTILL TWO SPRAYS IN EACH NOSTRIL TWICE A DAY 12.5 g 09/08/2019 Kczihxkp8-Broiwr7-K trep therm. (VISBIOME) 112.5 billion cell CapsuleIndications: Small intestinal bacterial overgrowth,Irritabl e bowel syndrome with diarrhea Take 3 capsules by mouth daily. 90 capsule 3 04/29/2019 b complex vitamins Capsule Take 1 capsule by mouth daily. With folic acid B-1,2,3,5,12 Biotin acetylcysteine (NAC ORAL) Take by mouth daily. enoxaparin (LOVENOX) 30 mg/0.3 mL Syringe Inject 0.3 mLs subcutaneously 2 times daily for 29 days. 58 Syringe 01/09/2020 02/07/2020 acetaminophen (Tylenol) 500 mg Tablet Take 2 [...] daily. 04/05/2022 documented as of this encounter Progress Notes * Dennis Ronquillo MD - 01/09/2020 4:53 PM EST Attempted to call patient via both numbers in chart with no reply to assess for resolution of nerveblock. Please page regional service at [phone] if any concerns for residual nerve block symptoms. Dennis Ronquillo MD 01/13/20 * Seda Villavicencio - 01/09/2020 4:14 PM EST Office of Care Management(OCM)/Glass Calibrator(RS) Patient Name: Kalyn Burgos : 1960 Patient has been offered a swing bed at [facility]. [facility] arranged for a 4:30 transport. Ambulance will need: Medicare ambulance form completed and signed (MD or [facility]phalt Paver) Copy of patient demographics [place] [facility] DNR/DNI order, if active Please have MD call Dr. 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 Info to accompany patient: Narcotic Prescriptions Copies of Medication Administration Records and IV sheets for past two weeks. Plan: Glass Calibrator will be available to the patient and Asphalt Paver for further assistance. Patient will be discharged to: [address] [address] Seda Villavicencio Glass Calibrator * Sanjuana Solomon RN - 01/09/2020 4:11 PM EST Patient discharged to [facility]. New paper Rx handed to patient. PIV removed. Patient left 2 West in via ambulance. Report called Hipolito at [facility]. [phone]. Activity level: 1. You are Non-weight bearing on your Left leg. ROM of knee as tolerated in Neffs brace at all times except for hygiene purposes and skin checks. 2. Remember to use the walker or crutches at all times for protection and balance. 3. Remember to keep your Left leg elevated as much as possible to decrease swelling and control pain. * Karol Jeffers - 01/09/2020 3:05 PM EST Office of Care Management-System Liaison Reviewed medical record, discussed with primary Asphalt Paver, Ashley Conrad. Met with Kalyn Burgos to discuss swing level of care and provided specific information about [facility], which patient has been referred to for inpatient rehabilitation. Informed Kalyn Burgos of referral review process that occurs. Discussed discharge disposition post rehab. Answered patient's questions. Patient will be followed by primary correctional case records supervisor for discuss all choices and options Provided my contact number if any further questions regarding rehab or specific facility Will continue to follow along with patient's primary correctional case records supervisor. System Liaison will continue to assist with any discharge needs related to the above facility as needed. Karol Jeffers RN BSN CRRN System Liaison [employer] [facility] * Ashley Conrad RN - 01/09/2020 1:50 PM EST Based on discussions with the multi-disciplinary healthcare team, the patient would benefit from custodial level of care at discharge. ?? I have met with the patient/freight representative to discuss discharge planning needs. I have provided the [facility], Office of Care Management letter from the Correctional Officer pertaining to rehab referrals. I have also provided a letter describing our affiliations within the [facility] and educated them about their right to choose where referrals are placed. ?? I reviewed the different levels of rehab including SNF, swing, acute and LTAC with the patient/freight representative. ?? The patient/freight representative has been provided a list of facilities within their preferred geographic area. ?? I have requested that the patient/freight representative provide at least three choices for referral. ?? The patient/freight representative have requested referrals to: 1. [facility] (Swing) ?? PHONE: [phone] FAX: [phone] 2. [facility] ([facility]) [address] [place] [address] ?? [phone] ? Expected date of discharge: 01/09/2020 Note routed to Glass Calibrator who will communicate referrals to facilities and provide any required information. * Rasta Em MD - 01/09/2020 6:57 AM EST ORTHOPAEDIC SURGERY INPATIENT Progress Note Patient Name: Kalyn Darnell Case Age: 59 y.o. Surgery/Issue: ORIF L proximal tibia fracture Attending: Yolanda Still MD Date of surgery: 01/08/2020 SUBJECTIVE / INTERVAL HISTORY: NAEON. Complains of pain overnight, improved this am. Has not been OOB yet. Denies cp/sob/n/v. Doesendorse some decreased sensation globally throughout foot, but [...] Time Provider Department Center 01/23/2020 9:15 AM [facility] DX ROOM 3 Xray [facility] Rad 01/23/2020 10:20 AM Yolanda Still MD [facility] ORTH 3C [facility] 01/27/2020 2:00 PM Carrillo Rogel MD [facility] Associated attestation - Yolanda Still MD - 01/09/2020 9:01 AM EST Patient seen and examined. Agree with resident note. NWB LLE. MRI to evaluate knee ligaments/posterolateral corner. Carmen Still MD Department of Orthopaedics 01/09/20 * Raymond Tam MD - 01/09/2020 12:04 AM [...] Time Provider Department Center 01/12/2020 10:00 AM [facility] DX ROOM 1 MH Xray [facility] Rad 01/12/2020 10:30 AM Yolanda Still MD [facility] ORTH 3A [facility] 01/27/2020 2:00 PM Carrillo Rogel MD [facility] Associated attestation - Yolanda Still MD - 01/09/2020 6:32 AM EST Patient seen and examined. Agree with resident note. Carmen Still MD Department of Orthopaedics 01/09/20 * Sanjuana Solomon RN - 01/08/2020 4:13 PM EST Received report from Afua in PACU. Arrived to room 212 at __. A&O x4. VSS. Pain 01/05. SCD's on right leg only. Patient went to OR today for ORIF, in brace that is locked. * Afua Ramachandran RN - 01/08/2020 3:12 PM EST Patient admitted to PACU. Hand off received from Sam Bland MD. care assumed. Assessments as documented. Monitors on, alarms audible and individualized to patient. 1600 PACU D/C criteria met 1610 hand off to Ofelia Haines RN 2 west * Carrillo Manley MD - 01/08/2020 6:30 AM EST ORTHOPAEDIC SURGERY INPATIENT POST OP NOTE Patient Name: Kalyn Darnell Case Age: 59 y.o. Surgery/Issue: L knee spanning ex-fix Findings:??L proximal tibia fracture with threatened skin?? Attending: Yolanda Still MD Date of surgery: 01/06/2020 SUBJECTIVE / INTERVAL HISTORY: AFVSS. She endorses issues with pain overnight. She was able to sleep some. She had questions aboutstarting a OSTOMY CARE NURSE this morning for pain. She states that [...] Days Post-Op s/p L knee spanning ex-fix for L proximal tibia fracture. Doing well post-operatively. We will work on pain control today. Pleasekeep the patient NPO for the time being pending discussion this morning with Dr. Still. Dispo pending PT/OT and pain control. Activity: NWB LLE in ex-fix DVT prophylaxis: Lovenox 40mg SQ/day for 30 days Closure: Ex-fix Dressing: Kerlix, pin site care 1x/day Antibiotics: Ancef x 24 hours Carrillo Manley MD 01/08/2020 Future Appointments Date Time Provider Department Center 01/12/2020 10:00 AM [facility] DX ROOM 1 MH Xray [facility] Rad 01/12/2020 10:30 AM Yolanda Still MD [facility] ORTH 3A [facility] 01/27/2020 2:00 PM Carrillo Rogel MD [facility] Associated attestation - Yolanda Still MD - 01/09/2020 6:32 AM EST Patient seen and examined. Agree with resident note. Plan for MRI to evaluate knee ligaments. Carmen Still MD Department of Orthopaedics 01/09/20 * Ashley Conrad RN - 01/07/2020 3:45 PM EST OFFICE OF CARE MANAGEMENT [facility] [facility] Follow-up Note Patient plan of care discussed [...] Referral in place: Will need Rehab choices [employer] [facility] to follow with team and family to assist with discharge needs when patient ready for discharge. Ashley Conrad RN Case Management pgr [phone] * Carrillo Manley MD - 01/07/2020 6:28 AM [...] Day Post-Op s/p L knee spanning ex-fix forL proximal tibia fracture. Doing well post-operatively. We will switch PO oxy to PO dilaudid. Dispopending PT/OT and pain control. Activity: NWB LLE in ex-fix DVT prophylaxis: Lovenox 40mg SQ/day for 30 days Closure: Ex-fix Dressing: Kerlix, pin site care 1x/day Antibiotics: Ancef x 24 hours Carrillo Manley MD 01/07/2020 Future Appointments Date Time Provider Department Center 01/27/2020 2:00 PM Carrillo Rogel MD [facility] Associated attestation - Yolanda Still MD - 01/08/2020 6:48 AM EST Patient seen and examined. Agree with resident note. Carmen Still MD Department of Orthopaedics 01/08/20 * Rasta Em MD - 01/07/2020 2:04 AM [...] overly so - appears more anxious about anticipatedcourse than current discomfort. She is resting comfortably, laying supine in bed. A knee spanning ex-fix is in place. There is moderate saturation of the pin site dressings. Her leg is soft and compressible. I am able to passively flex and [...] ?? Rasta Em Orthopedic surgery PGY 2 * Raymond Tam MD - 01/06/2020 11:52 PM [...] (left) Pending result ASSESSMENT / PLAN: Kalyn Darnell Case is a 59 y.o. female 1 Day Post-Op s/p L knee spanning ex-fix forL proximal tibia fracture. Doing well post-operatively. - Hemodynamically stable - Pain well controlled Activity: NWB LLE in ex-fix DVT prophylaxis: Lovenox 40mg SQ/day for 30 days Closure: Ex-fix Dressing: Kerlix, pin site care 1x/day Antibiotics: Ancef x 24 hours Raymond Tam MD 01/07/2020 Future Appointments Date Time Provider Department Center 01/27/2020 2:00 PM Carrillo Rogel MD [facility] Associated attestation - Yolanda Still MD - 01/08/2020 10:34 AM EST Patient seen and examined. Agree with resident note. Plan for surgical fixation of her proximal tibial fracture when skin is improved. Carmen Still MD Department of Orthopaedics 01/08/20 * Rossy Duvall RN - 01/06/2020 9:57 PM EST Arrived to PACU from OR. Pt attached to monitors, alarms active and audible, set appropriately for pt. VSS. C/o LLE pain, medicated and pain reassessed appropriately. Denies nausea. Ex fix in place, pin site oozing slightly. Hand off report given to RN documented in this encounter H&P Notes * Carrillo Manley MD - 01/08/2020 1:12 PM EST The patient's history and physical exam have been reviewed and completed. There has been no interval change from that of the pre-operative history and physical exam done within the last 30 days. Carrillo Manley MD * Judd Lyon MD - 01/06/2020 6:11 PM EST The patient's history and physical exam have been reviewed and completed. There has been no interval change from that of the pre-operative history and physical exam done within the last 30 days. 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 lactated ringers infusion ??? HYDROmorphone (DILAUDID) injection 1 mg ??? Ciclesonide (OMNARIS) 50 mcg [place], Non-Aerosol ??? Zdotqxjw0-Krykfc6-Woncu therm. (VISBIOME) 112.5 billion cell Capsule ??? [...] (5/5) shoulder abduction, elbow flexion/extension, wrist flexion/extension, science technician, EPL,AIN, IO Brisk capillary refill distally 2+ radial [...] (5/5) shoulder abduction, elbow flexion/extension, wrist flexion/extension, science technician, EPL,AIN, IO Brisk capillary refill distally 2+ radial [...] evaluation and treatment. Please page Orthopaedic consults ([phone]) with any questions or concerns. ?? Carrillo Manley MD P. [phone] 01/06/20 6:04 PM Future Appointments Date Time Provider Department Center 01/27/2020 2:00 PM Carrillo Rogel MD [facility] Associated attestation - Yolanda Still MD - [...] 01/08/2020 documented in this encounter ED Notes * Shraddha Webster RN - 01/06/2020 5:45 PM EST Ortho MD at bedside * Kg Ray MD - 01/06/2020 3:52 PM EST Kalyn Burgos is an 59 y.o. female who presents to the ED with: Chief Complaint Patient presents with ??? Leg Injury skiing accident I saw this patient 01/06/2020 HPI Kalyn Darnell Case is a 59 y.o. female with no relevant past medical history who presents to the Emergency Department with left lower extremity pain. She is a transfer from [facility]. She has left tib-fib fracture. She is neurovascularly intact. Pain is well controlled. Last p.o. this morning. She is not a nticoagulated. She was wearing a helmet. She denies [...] file Gets together: Not on file Attends anabaptist service: Not on file Active member of [...] Jan 09 1553 Tue Jan 06, 2020 162 Spoke with ortho, they will eval 1623 [...] patch (3 patches Transdermal Patch Applied 01/09/20 131) And lidocaine (LIDODERM) patch REMOVAL (3 patches [...] She is several hours out from her injury at time of our evaluation after she has [...] with the assessment and plan as described in the resident note unless noted otherwise. Final Assessment: 59 y.o. F with LLE tibial fracture documented in this encounter Miscellaneous Notes * Plan of Care - Afua Luna OT [...] 8.78) performed by Yolanda Still MD at [facility] MAIN OR ??? SHOULDER ARTHROSCOPY ??? TIBIA FRACTURE SURGERY ??? URETER STENT PLACEMENT Social History: Patient lives with her son at baseline- son works and is not home Home Setup: Multi-level home with 4 ANTONETTE. Pt typically sleeps on 3rd floor (up 2 full FOS). There asael half bath on the first floor. Full [...] with HOB elevated and use of leg engineering production worker Sit<>stand: CGA-Zenaida x2 with FWW- verbal cueing [...] decreased flexibility/ROM, decreased sitting/standing balance, precautions/bracing and compromised mobility status. These performance deficits have led to activity limitations and participation restrictions in the following areas of occupation: dressing, bathing, toileting, transfers/mobility, rest/sleep, leisure, driving, community mobility and social participation. Pt pleasant and cooperative throughout session, motivated to mobilize with therapy despite pain. Pt demonstrates excellent understanding of precautions and tolerated stand-pivot transfer from bed to recliner with 2A and use ofFWW, but was limited by pain and fatigue. Pt would benefit from further inpatient OT interventions to address performance deficits and maximize participation and independence with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 Performing Organization Address City/State/[facility] de Phone Number [facility] [place] [address] * (ABNORMAL) Prothrombin Time (01/06/2020 6:41 PM EST) PT 13.3(H) 9.4 - 12.5 sec [facility] INR 1.2 [facility] Comment: An INR <2.0 indicates adequate procoagulant activity for hemostasis in most patients without underlying bleeding disorders, though the INR may not adequately reflect hemostatic capacity in patients with liver disease and synthetic impairment. The recommended target INR range for therapeutic anticoagulation is 2.0 ? 3.0 for most applications, though lower and higher ranges may be appropriate depending on clinical circumstances. Blood specimen (specimen) 01/06/2020 6:41 PM EST 01/06/2020 6:50 PM EST Narrative Resulting Agency Comment Spec In Lab Viky Govea MD HEMATOLOGY ORDERABLE S Performing Organization Address [facility] de Phone Number [facility] [place] [address] * Basic Metabolic Panel (non-fasting) (01/06/2020 6:41 PM EST) Pathologist [facility] Glucose Lvl 100 65 - 199 mg/dL [facility] Comment:Diabetes: >=200 mg/d L plus symptoms BUN 10 8 - 18 mg/dL [facility] Creatinine 0.76 0.70 - 1.20 mg/dL [facility] Sodium 139 135 - 145 mmol/L [facility] Potassium 3.6 3.5 - 5.0 mmol/L [facility] Comment: Please note: ??Patients with WBC >100,000 may have falsely elevated Potassium levels. ??For accurate Potassium quantification in these patients send serum separator tube (gold top) for subsequent determinations. ??Contact the Clinical Chemistry Laboratory if there are any questions. Chloride 105 98 - 107 mmol/L [facility] CO2 23 22 - 31 mmol/L [facility] Anion Gap 11 5 - 15 mmol/L [facility] Calcium 8.8 8.5 - 10.5 mg/dL [facility] Estimated GFR 85 >=60 mL/min/1. 73 m?? [facility] Comment: The eGFR was calculated using the CKD-EPI equation. As with all creatinine based estimates of kidney function, eGFR values calculated with the CKD-EPI equation are not accurate in patients with acute kidney failure, extremes of body mass or the acutely ill. [email or web address] eGFR 98 >=60 mL/min/1. 73 m?? [facility] Comment: The eGFR was calculated using the CKD-EPI equation. As with all creatinine based estimates of kidney function, eGFR values calculated with the CKD-EPI equation are not accurate in patients with acute kidney failure, extremes of body mass or the acutely ill. [email or web address] Blood specimen (specimen) 01/06/2020 6:41 PM EST 01/06/2020 6:50 PM EST Narrative Resulting Agency Comment Spec In Lab Viky Govea MD CHEMISTRY ORDERABLES [facility] [place] [address] * CT Head wo Contrast (Generic) (01/06/2020 5:31 PM EST) Anatomical Region Laterality Modality Head Computed Tomogra phy Impressions 01/06/2020 5:48 PM EST Normal study. Thank you for letting us participate in the care of this patient. For questions regarding this report, please contact the number below. ? Narrative 01/06/2020 5:48 PM [...] clear. Procedure Note Lana Guallpa MD - 01/06/2020 EXAMINATION: CT HEAD WO CONTRAST (GENERIC) CLINICAL HISTORY: Head trauma, minor, normal mental status (Age 19-64y) TECHNIQUE: CT head performed without intravenous contrast administration. COMPARISON: None FINDINGS: No intracranial hemorrhage, mass, mass effect, hydrocephalus, midlineshift, or large acute infarction. The subarachnoid spaces are normal. Nosignificant osseous abnormality. The visualized portions of the paranasal sinusesand mastoid air cells are clear. IMPRESSION Normal study. Thank you for letting us participate in the care of this patient. Forquestions regarding this report, please contact the number below. Electronically signed by: Lana Guallpa [facility] ([phone]),at 01/06/2020 5:48 PM Viky Govea MD [facility] CT ORDERABLES * Film Library- Storage Only DX Pelvis (01/06/2020 3:18 PM EST) Narrative [facility] - 01/06/2020 3:18 PM EST This exam is auto-finalizing. It's purpose is for storage only. Adriana Nicholas MD [facility] FILM LIBRARY ORD ERABLES [place], [place] * Film Library- Storage Only DX Chest (01/06/2020 3:17 PM EST) Narrative [facility] - 01/06/2020 3:17 PM EST This exam is auto-finalizing. It's purpose is for storage only. Adriana Nicholas MD IMG FILM LIBRARY ORD ERABLES [facility] [place] documented in this encounter Visit Diagnoses Not on filedocumented in this encounter Admitting Diagnoses Diagnosis Tibia fracture Closed fracture of unspecified part of tibia documented in this encounter Administered Medications Inactive Administered Medications - up to 3 most recent administrations Medication Order MAR Action Action Date Dose Rate Site acetaminophen (Tylenol) tablet 1,000 mg 1,000 mg, Oral, EVERY 6 HOURS SCHEDULED, First dose (after last modification) on Sun01/08/20 at 0600, Until Discontinued, Maximum dose of acetaminophen is 4000 mg from all sources in 24 hours., Routine Given 01/09/2020 1:15 PM EST 1,000 mg Given 01/09/2020 5:45 AM EST 1,000 mg Given 01/09/2020 12:47 AM EST 1,000 mg cyclobenzaprine (Flexeril) tablet 10 mg 10 mg, Oral, 3 TIMES DAILY PRN, Starting on Sun01/08/20 at 0027, Until Sun01/09/20 at 1854, Muscle spasms, Routine Given 01/09/2020 1:15 PM EST 10 mg Given 01/09/2020 9:01 AM EST 10 mg Given 01/08/2020 8:23 AM EST 10 mg Dextromethorphan HBr 5 mg/5 mL oral syrup 15 mg 15 mg, Oral, EVERY 4 HOURS PRN, Cough, For resetting opioid receptors, give with dilaudid., Starting on Sun01/08/20 at 0316, Until Sun01/09/20 at 1854 Given 01/08/2020 3:50 AM EST 15 mg enoxaparin (LOVENOX) injection 30 mg 30 mg, Subcutaneous, EVERY 12 HOURS SCHEDULED (2 times per day), First dose (after last modification) on Sun01/09/20 at 2100, Until Discontinued, Routine FLUoxetine (PROzac) capsule 20 mg 20 mg, Oral, 2 TIMES DAILY, First dose (after last modification) on Sun01/07/20 at 2100, Until Discontinued, Routine Given 01/09/2020 9:01 AM EST 20 mg Given 01/08/2020 9:14 PM EST 20 mg Given 01/08/2020 8:22 AM EST 20 mg gabapentin (Neurontin) capsule 300 mg 300 mg, Oral, 3 TIMES DAILY, First dose on Sun01/08/20 at 1015, Until Discontinued, Routine Given 01/09/2020 4:03 PM EST 300 mg Given 01/09/2020 9:01 AM EST 300 mg Given 01/08/2020 9:13 PM EST 300 mg HYDROmorphone (DILAUDID) injection 0.5 mg 0.5 mg, Intravenous, ONCE PRN, 1 dose, Starting on Sun01/08/20 at 0818, Until Sun01/09/20 at 1854, Pain, For pain not controlled with current medications, Routine HYDROmorphone (Dilaudid) tablet 2 mg 2 mg, Oral, EVERY 4 HOURS PRN, Starting on Sun01/07/20 at 0806, Until Sun01/09/20 at 1854, Pain, for mild pain (1-3), May give an additional 2 mg once if pain not relieved in 30-60 minutes., Routine Given 01/07/2020 9:50 AM EST 2 mg Given 01/07/2020 8:53 AM EST 2 mg HYDROmorphone (Dilaudid) tablet 4 mg 4 mg, Oral, EVERY 4 HOURS PRN, Starting on Sun01/07/20 at 0806, Until Sun01/09/20 at 1854, Pain, for moderate pain (4-6), May give an additional 2 mg once if pain not relieved in 30-60 minutes., Routine Given 01/07/2020 2:48 PM EST 4 mg HYDROmorphone (Dilaudid) tablet 6 mg 6 mg, Oral, EVERY 4 HOURS PRN, Starting on Sun01/07/20 at 0806, Until Sun01/09/20 at 1854, Pain, for severe pain (7-10), May give an additional 2 mg once if pain not relieved in 30-60 minutes., Routine Given 01/09/2020 10:32 AM EST 6 mg Given 01/09/2020 5:45 AM EST 6 mg Given 01/08/2020 10:33 PM EST 6 mg lactated ringers infusion 75 mL/hr, Intravenous, CONTINUOUS, Starting on Tu01/06/20 at 1709, Until Sun01/09/20 at 1854 New Bag 01/09/2020 8:10 AM EST 75 mL/hr 75 mL /hr New Bag 01/08/2020 12:21 AM EST 75 mL/hr 75 mL/hr New Bag 01/07/2020 10:21 AM EST 75 mL/hr 75 mL/hr lidocaine (LIDODERM) 5 % patch 3 patch 3 patch, Transdermal, EVERY 24 HOURS, First dose on Sun01/08/20 at 1015, Until Discontinued, Apply patch(es) for 12 hours, and then remove for 12 hours, Routine Patch Applied 01/09/2020 1:16 PM EST 3 patches 15- Thigh Anterior (Left) Patch Applied 01/08/2020 11:41 AM EST 3 patches 19- Surgical Site lidocaine (LIDODERM) patch REMOVAL Transdermal, EVERY 24 HOURS, First dose on Sun01/08/20 at 2200, Until Discontinued, Remove lidocaine 5 %(700 mg/patch) patch polyethylene glycol (Miralax) packet 17 g 17 g, Oral, 2 TIMES DAILY, First dose on Sun01/06/20 at 2315, Until Discontinued, Routine Given 01/09/2020 9:01 AM EST 17 g Given 01/08/2020 9:14 PM EST 17 g Given 01/07/2020 8:11 PM EST 17 g senna-docusate (Pericolace) 8.6-50 mg per tablet 2 tablet 2 tablet, Oral, 2 TIMES DAILY, First dose on Sun01/06/20 at 2315, Until Discontinued, Routine Given 01/09/2020 9:01 AM EST 2 tablets Given 01/08/2020 9:14 PM EST 2 tablets Given 01/08/2020 8:22 AM EST 2 tablets sodium chloride 0.9 % (flush) flush 5 mL 5 mL, Intravenous, 2 TIMES DAILY, First dose on Sun01/06/20 at 2315, Until Discontinued, Routine Given 01/09/2020 9:00 AM EST 5 mLs Given 01/08/2020 9:14 PM EST 5 mLs Given 01/08/2020 8:30 AM EST 5 mLs vancomycin (VANCOCIN) injection ONCE PRN, Starting on Sun01/08/20 at 1419, Until Sun01/08/20 at 2047, Intra-Operative (Intra-Procedure), Routine Given 01/08/2020 2:19 PM EST 2 g 19- Surgical Site documented in this encounter Active and Recently Administered Medications Times are shown in EST. Scheduled Medication Order 01/07/2020 01/08/2020 01/09/2020 acetaminophen (Tylenol) tablet 1,000 mg (CANCELED) 1,000 mg, Oral, EVERY 8 HOURS SCHEDULED, First dose on Sun01/06/20 at 2315, Until Discontinued, Maximum dose of acetaminophen is 4000 mg from all sources in 24 hours., Routine 0339 (Given - Provider: Ad South RN)0600 (Not Given - Provider: Ad South RN - Reason: See comment - Comment: rescheduled)1142 (Given - Provider: Frances Douglas RN)2011 (Not Given - Provider: Jaimie Martinez RN - Reason: Patient/family refused - Comment: Pt states this gives her a headache) acetaminophen (Tylenol) tablet 1,000 mg 1,000 mg, Oral, EVERY 6 HOURS SCHEDULED, First dose (after last modification) on Sonal 01/08/20 at 0600, Until Discontinued, Maximum dose of acetaminophen is 4000 mg from all sources in 24 hours., Routine 0600 (Not Given - Provider: Jaimie Martinez RN - Reason: Patient/family refused - Comment: Pt states this medication gives her headaches)1150 (Not Given - Provider: Sanjuana Solomon RN - Reason: Patient/family refused)1242 (JAN Hold - Provider: Admin Adt - Reason: Transfer to a Procedural area)1347 (JAN Unhold - Provider: Admin Adt)1349 (JAN Hold - Provider: Admin Adt - Reason: Transfer to a Procedural area)1532 ([facility] Unhold - Provider: Afua Ramachandran RN)1800 (Not Given - Provider: Sanjuana Solomon RN - Reason: Patient/family refused) 0047 (Given - Provider: Olu Hernandez RN)0545 (Given - Provider: Olu Hernandez RN)1315 (Given - Provider: Sanjuana Solomon RN) ceFAZolin (ANCEF) 1g in dextrose 5% 50mL (COMPLETED) 1 g, Intravenous, EVERY 8 HOURS, 3 [...] Unit), Indication for (Active or Suspected): Prophylaxis 0733 (New Bag - Provider: Ad South RN)0803 (Stopped - Provider: Frances Douglas, MARLEY)1449 (New Bag - Provider: Frances Douglas RN)1519 (Stopped - Provider: Frances Douglas RN) ceFAZolin (ANCEF) 1g in dextrose 5% 50mL (COMPLETED) 1 g, Intravenous, EVERY 8 HOURS, 3 doses, First dose on Sun01/08/20 at 1545, Last dose on Sun01/09/20 at 0745, Administer over 30 Minutes, Please adjust first dose to be given 4 hours after intraoperative dose., Indication for (Active or Suspected): Prophylaxis 1550 (New Bag - Provider: Afua Ramachandran RN)1620 (Stopped - Provider: Afua Ramachandran RN) 0047 (New Bag - Provider: Olu Hernandez RN)0117 (Stopped - Provider: Olu Hernandez RN)0901 (New Bag - Provider: Sanjuana Solomon RN)0931 (Stopped - Provider: Sanjuana Solomon RN) enoxaparin (LOVENOX) injection 30 mg 30 mg, Subcutaneous, EVERY 12 HOURS SCHEDULED (2 times per day), First dose (after last modification) on Sun01/09/20 at 2100, Until Discontinued, Routine enoxaparin (LOVENOX) injection 40 mg (CANCELED) 40 mg, Subcutaneous, EVERY 24 HOURS SCHEDULED (Daily), First dose on Sun01/07/20 at 0900, Until Discontinued, Routine 0955 (Given - Provider: Frances Douglas RN) 0831 (Not Given - Provider: Sanjuana Solomon RN - Reason: Order parameters not met)1242 (JAN Hold - Provider: Admin Adt - Reason: Transfer to a Procedural area)1347 (JAN Unhold - Provider: Admin Adt)1349 (JAN Hold - Provider: Admin Adt - Reason: Transfer to a Procedural area)1640 (MAR Unhold - Provider: Admin Adt) 0901 (Given - Provider: Sanjuana Solomon, RN) FLUoxetine (PROzac) capsule 10 mg (CANCELED) 10 mg, Oral, 3 TIMES DAILY, First dose (after last modification) on Sun01/06/20 at 2330, Until Discontinued, Routine 0855 (Given - Provider: Frances Douglas, MARLEY) FLUoxetine (PROzac) capsule 20 mg 20 mg, Oral, 2 TIMES DAILY, First dose (after last modification) on Sun01/07/20 at 2100, Until Discontinued, Routine 2012 (Given - Provider: Jaimie Martinez, MARLEY) 0822 (Given - Provider: Sanjuana Solomon, MARLEY)1242 (MAR Hold - Provider: Admin Adt - Reason: Transfer to a Procedural area)1347 (MAR Unhold - Provider: Admin Adt)1349 (MAR Hold - Provider: Admin Adt - Reason: Transfer to a Procedural area)1640 ([facility] Unhold - Provider: Admin Adt)2114 (Given - Provider: Olu Hernandez RN) 0901 (Given - Provider: Sanjuana Solomon, MARLEY) gabapentin (Neurontin) capsule 300 mg 300 mg, Oral, 3 TIMES DAILY, First dose on Sun01/08/20 at 1015, Until Discontinued, Routine 1140 (Given - Provider: Sanjuana Solomon RN)1242 (MAR Hold - Provider: Admin Adt - Reason: Transfer to a Procedural area)1347 ([facility] Unhold - Provider: Admin Adt)1349 (MAR Hold - Provider: Admin Adt - Reason: Transfer to a Procedural area)1500 (Automatically Held - Provider: Admin Adt)1640 (MAR Unhold - Provider: Admin Adt)2113 (Given - Provider: Olu Hernandez RN) 0901 (Given - Provider: Sanjauna Solomon, MARLEY)1603 (Given - Provider: Sanjuana Solomon, MARLEY) lidocaine (LIDODERM) 5 % patch 3 patch(Linked Group 1) 3 patch, Transdermal, EVERY 24 HOURS, First dose on Sun01/08/20 at 1015, Until Discontinued, Apply patch(es) for 12 hours, and then remove for 12 hours, Routine 1141 (Patch Applied - Provider: Sanjuana Solomon RN)1242 (MAR Hold - Provider: Admin Adt - Reason: Transfer to a Procedural area)1347 (MAR Unhold - Provider: Admin Adt)1349 (MAR Hold - Provider: Admin Adt - Reason: Transfer to a Procedural area)1640 (MAR Unhold - Provider: Admin Adt) 1316 (Patch Applied - Provider: Sanjuana Solomon RN) lidocaine (LIDODERM) patch REMOVAL(Linked Group 1) Transdermal, EVERY 24 HOURS, First dose on Sun01/08/20 at 2200, Until Discontinued, Remove lidocaine 5 %(700 mg/patch) patch 1242 (MAR Hold - Provider: Admin Adt - Reason: Transfer to a Procedural area)1347 ([facility] Unhold - Provider: Admin Adt)1349 (MAR Hold - Provider: Admin Adt - Reason: Transfer to a Procedural area)1640 ([facility] Unhold - Provider: Admin Adt)2200 (Patch Removed - Provider: Olu Hernandez RN) polyethylene glycol (Miralax) packet 17 g 17 g, Oral, 2 TIMES DAILY, First dose on Sun01/06/20 at 2315, Until Discontinued, Routine 0900 (Not Given - Provider: Frances Douglas RN - Reason: Patient/family refused)2010 (Given - Provider: Jaimie Martinez RN) 0831 (Not Given - Provider: Sanjuana Solomon RN - Reason: Order parameters not met)1242 ([facility] Hold - Provider: Admin Adt - Reason: Transfer to a Procedural area)1347 ([facility] Unhold - Provider: Admin Adt)1349 (MAR Hold - Provider: Admin Adt - Reason: Transfer to a Procedural area)1640 (MAR Unhold - Provider: Admin Adt)2114 (Given - Provider: Olu Hernandez RN) 0901 (Given - Provider: Sanjuana Solomon, MARLEY) senna-docusate (Pericolace) 8.6-50 mg per tablet 2 tablet 2 tablet, Oral, 2 TIMES DAILY, First dose on Sun01/06/20 at 2315, Until Discontinued, Routine 0900 (Not Given - Provider: Frances Douglas RN - Reason: Patient/family refused)2010 (Given - Provider: Jaimie Martinez RN) 0822 (Given - Provider: Sanjuana Solomon RN)1242 (MAR Hold - Provider: Admin Adt - Reason: Transfer to a Procedural area)1347 ([facility] Unhold - Provider: Admin Adt)1349 ([facility] Hold - Provider: Admin Adt - Reason: Transfer to a Procedural area)1640 ([facility] Unhold - Provider: Admin Adt)2114 (Given - Provider: Olu Hernandez, MARLEY) 0901 (Given - Provider: Sanjuana Solomon, MARLEY) sodium chloride 0.9 % (flush) flush 5 mL 5 mL, Intravenous, 2 TIMES DAILY, First dose on Sun01/06/20 at 2315, Until Discontinued, Routine 0951 (Given - Provider: Frances Douglas, MARLEY)2100 (Due) 0830 (Given - Provider: Sanjuana Solomon, MARLEY)1242 ([facility] Hold - Provider: Admin Adt - Reason: Transfer to a Procedural area)1347 ([facility] Unhold - Provider: Admin Adt)1349 ([facility] Hold - Provider: Admin Adt - Reason: Transfer to a Procedural area)1640 ([facility] Unhold - Provider: Admin Adt)2114 (Given - Provider: Olu Hernandez, MARLEY) 0900 (Given - Provider: Sanjuana Solomon, MARLEY) Continuous Medication Order 01/07/2020 01/08/2020 01/09/2020 lactated ringers infusion 75 mL/hr, Intravenous, CONTINUOUS, Starting on Sun01/06/20 at 1709, Until Sun01/09/20 at 1854 1021 (New Bag - Provider: Kerri Diaz RN) 0021 (New Bag - Provider: Jaimie Martinez, MARLEY)0354 (Stopped - Provider: Jaimie Martinez RN - Comment: Per pt request)1242 ([facility] Hold - Provider: Admin Adt - Reason: Transfer to a Procedural area)1347 ([facility] Unhold - Provider: Admin Adt)1349 ([facility] Hold - Provider: Admin Adt - Reason: Transfer to a Procedural area)1519 ([facility] Unhold - Provider: Afua Ramachandran, MARLEY) 0810 (New Bag - Provider: Es Tamayo RN) PRN Medication Order 01/07/2020 01/08/2020 01/09/2020 cyclobenzaprine (Flexeril) tablet 10 mg 10 mg, Oral, 3 TIMES DAILY PRN, Starting on Sonal 01/08/20 at 0027, Until Sun01/09/20 at 1854, Muscle spasms, Routine 0047 (Given - Provider: Jaimie Martinez RN)0823 (Given - Provider: Sanjuana Solomon, MARLEY)1242 ([facility] Hold - Provider: Admin Adt - Reason: Transfer to a Procedural area)1347 ([facility] Unhold - Provider: Admin Adt)1349 ([facility] Hold - Provider: Admin Adt - Reason: Transfer to a Procedural area)1532 ([facility] Unhold - Provider: Afua Ramachandran RN) 0901 (Given - Provider: Sanjuana Solomon, MARLEY)1315 (Given - Provider: Sanjuana Solomon RN) Dextromethorphan HBr 5 mg/5 mL oral syrup 15 mg 15 mg, Oral, EVERY 4 HOURS PRN, Cough, For resetting opioid receptors, give with dilaudid., Starting on Sonal 01/08/20 at 0316, Until Sun01/09/20 at 1854 0350 (Given - Provider: Jaimie Martinez RN)1242 ([facility] Hold - Provider: Admin Adt - Reason: Transfer to a Procedural area)1347 ([facility] Unhold - Provider: Admin Adt)1349 ([facility] Hold - Provider: Admin Adt - Reason: Transfer to a Procedural area)1640 ([facility] Unhold - Provider: Admin Adt) fentaNYL (PF) 50mcg/mL injection (CANCELED) 50 mcg, Intravenous, EVERY 5 MIN PRN, Starting on Sonal 01/08/20 at 1243, Until Sonal 01/08/20 at 1609, Pain, or prior to injection of local anesthetic., Hold for respiratory rate less than 8 breaths per minute. (maximum dose 200 mcg), Day of Surgery (Day of Procedure), Routine 1248 (Given - Provider: Mirian Martinez RN) HYDROmorphone (DILAUDID) injection 0.4 mg (COMPLETED) 0.4 mg, Intravenous, ONCE PRN, 1 dose, Starting on Sun01/07/20 at 0047, Until Sun01/07/20 at 0102, Pain, For pain not controlled with current medications, Routine 010 (Given - Provider: Lily Oakley RN) HYDROmorphone (DILAUDID) injection 0.4 mg (COMPLETED) 0.4 mg, Intravenous, ONCE PRN, 1 dose, Starting on Sun01/07/20 at 1801, Until Sun01/07/20 at 1818, Pain, For pain not controlled with current medications, Routine 1817 (Given - Provider: Frances Douglas RN) HYDROmorphone (DILAUDID) injection 0.4 mg (COMPLETED) 0.4 mg, Intravenous, ONCE PRN, 1 dose, Starting on Sun01/07/20 at 2205, Until Sun01/07/20 at 2247, Pain, For pain not controlled with current medications, Routine 2246 (Given - Provider: Jaimie Martinez RN) HYDROmorphone (DILAUDID) injection 0.4 mg (COMPLETED) 0.4 mg, Intravenous, ONCE PRN, 1 dose, Starting on Sun01/08/20 at 0317, Until Sun01/08/20 at 0336, Pain, For pain not controlled with current medications, Routine 335 (Given - Provider: Jaimie Martinez RN) HYDROmorphone (DILAUDID) injection 0.5 mg (COMPLETED) 0.5 mg, Intravenous, ONCE PRN, 1 dose, Starting on Sun01/07/20 at 2359, Until Sun01/08/20 at 0018, Pain, For pain not controlled with current medications, Routine 001 (Given - Provider: Jaimie Martinez RN) HYDROmorphone (DILAUDID) injection 0.5 mg 0.5 mg, Intravenous, ONCE PRN, 1 dose, Starting on Sun01/08/20 at 0818, Until Sun01/09/20 at 1854, Pain, For pain not controlled with current medications, Routine 1242 ([facility] Hold - Provider: Admin Adt - Reason: Transfer to a Procedural area)1347 ([facility] Unhold - Provider: Admin Adt)1349 ([facility] Hold - Provider: Admin Adt - Reason: Transfer to a Procedural area)1640 ([facility] Unhold - Provider: Admin Adt) HYDROmorphone (Dilaudid) tablet 2 mg(Linked Group 2) 2 mg, Oral, EVERY 4 HOURS PRN, Starting on Sun01/07/20 at 0806, Until Sun01/09/20 at 1854, Pain, for mild pain (1-3), May give an additional 2 mg once if pain not relieved in 30-60 minutes., Routine 0853 (Given - Provider: Frances Douglas RN)0950 (Given - Provider: Frances Douglas RN)1448 (See Alternative - Provider: Frances Douglas RN)2011 (See Alternative - Provider: Jaimie Martinez RN) 002 (See Alternative - Provider: Jaimie Martinez RN)0431 (See Alternative - Provider: Jaimie Martinez, MARLEY)0823 (See Alternative - Provider: Sanjuana Solomon RN)1242 ([facility] Hold - Provider: Admin Adt - Reason: Transfer to a Procedural area)1347 ([facility] Unhold - Provider: Admin Adt)1349 ([facility] Hold - Provider: Admin Adt - Reason: Transfer to a Procedural area)1519 ([facility] Unhold - Provider: Afua Ramachandran RN)2233 (See Alternative - Provider: Olu Hernandez RN) 0545 (See Alternative - Provider: Olu Hernandez RN)1032 (See Alternative - Provider: Es Tamayo RN) HYDROmorphone (Dilaudid) tablet 4 mg(Linked Group 2) 4 mg, Oral, EVERY 4 HOURS PRN, Starting on Sun01/07/20 at 0806, Until Sun01/09/20 at 1854, Pain, for moderate pain (4-6), May give an additional 2 mg once if pain not relieved in 30-60 minutes., Routine 0853 (See Alternative - Provider: Frances Douglas RN)0950 (See Alternative - Provider: Frances Douglas RN)1448 (Given - Provider: Frances Douglas RN)2011 (See Alternative - Provider: Jaimie Martinez RN) 002 (See Alternative - Provider: Jaimie Martinez, MARLEY)0431 (See Alternative - Provider: Jaimie Martinez RN)0823 (See Alternative - Provider: Sanjuana Solomon RN)1242 ([facility] Hold - Provider: Admin Adt - Reason: Transfer to a Procedural area)1347 ([facility] Unhold - Provider: Admin Adt)1349 ([facility] Hold - Provider: Admin Adt - Reason: Transfer to a Procedural area)1519 ([facility] Unhold - Provider: Afua Ramachandran RN)2233 (See Alternative - Provider: Olu Hernandez RN) 0545 (See Alternative - Provider: Olu Hernandez RN)1032 (See Alternative - Provider: Es Tamayo, MARLEY) HYDROmorphone (Dilaudid) tablet 6 mg(Linked Group 2) 6 mg, Oral, EVERY 4 HOURS PRN, Starting on Sun01/07/20 at 0806, Until Sun01/09/20 at 1854, Pain, for severe pain (7-10), May give an additional 2 mg once if pain not relieved in 30-60 minutes., Routine 0853 (See Alternative - Provider: Frances Douglas RN)0950 (See Alternative - Provider: Frances Douglas RN)1448 (See Alternative - Provider: Frances Douglas RN)2011 (Given - Provider: Jaimie Martinez RN) 0020 (Given - Provider: Jaimie Martinez RN)0431 (Given - Provider: Jaimie Martinze RN)0823 (Given - Provider: Sanjuana Solomon RN)1242 ([facility] Hold - Provider: Admin Adt - Reason: Transfer to a Procedural area)1347 ([facility] Unhold - Provider: Admin Adt)1349 ([facility] Hold - Provider: Admin Adt - Reason: Transfer to a Procedural area)1519 ([facility] Unhold - Provider: Afua Ramachandran RN)2233 (Given - Provider: Olu Hernandez RN) 0545 (Given - Provider: Olu Hernandez RN)1032 (Given - Provider: Es Tamayo, MARLEY) lidocaine (XYLOCAINE) 10 mg/mL (1 %) injection 3 mg 3 mg (0.3 mL), Subcutaneous, ONCE PRN, 1 dose, Starting on Sun01/06/20 at 2249, Until Sun01/09/20 at 1854, for discomfort with PIV insertion, Routine 1242 ([facility] Hold - Provider: Admin Adt - Reason: Transfer to a Procedural area)1347 ([facility] Unhold - Provider: Admin Adt)1349 ([facility] Hold - Provider: Admin Adt - Reason: Transfer to a Procedural area)1640 ([facility] Unhold - Provider: Admin Adt) LORazepam (Ativan) tablet 0.5 mg (COMPLETED) 0.5 mg, Oral, ONCE PRN, 1 dose, Starting on Sun01/07/20 at 0047, Until Sun01/07/20 at 0102, Anxiety, Routine 0102 (Given - Provider: Lily Oakley, MARLEY) midazolam (PF) (VERSED) injection 1 mg (CANCELED) 1 mg, Intravenous, EVERY 5 MIN PRN, Starting on Sonal 01/08/20 at 1243, Until Sonal 01/08/20 at 1609, Sleep, or prior to injection of local anesthetic, Hold for delirium/agitation. (Maximum dose 5 mg)., Day of Surgery (Day of Procedure), Routine 1248 (Given - Provider: Mirian Martinez RN)1253 (Given - Provider: Mirian Martinez RN) ondansetron (ZOFRAN) injection 4 mg 4 mg, Intravenous, EVERY 8 HOURS PRN, Starting on Sun01/06/20 at 2249, Until Sun01/09/20 at 1854, Nausea, If multiple antiemetics are ordered, use ondansetron first, prochlorperazine second, metoclopramide third. 1242 ([facility] Hold - Provider: Admin Adt - Reason: Transfer to a Procedural area)1347 ([facility] Unhold - Provider: Admin Adt)1349 ([facility] Hold - Provider: Admin Adt - Reason: Transfer to a Procedural area)1640 ([facility] Unhold - Provider: Admin Adt) oxyCODONE (Roxicodone) tablet 15 mg (CANCELED)(Linked Group 3) 15 mg, Oral, EVERY 4 HOURS PRN, Starting on Sun01/06/20 at 2249, Until Sun01/07/20 at 0808, Pain, severe pain (7-10), For severe pain (7-10). Do not exceed 15 mg in 4 hours. If pain not relieved, call provider., Routine 0339 (Given - Provider: Ad South RN) sodium chloride 0.9 % (flush) flush 5-20 mL 5-20 mL, Intravenous, EVERY 1 MIN PRN, Starting on Sun01/06/20 at 2249, Until Sun01/09/20 at 1854, flush, Flush pertains to all indwelling lines. Flush per protocol found in the job aid using the link provided on this medication record., Routine 1242 ([facility] Hold - Provider: Admin Adt - Reason: Transfer to a Procedural area)1347 ([facility] Unhold - Provider: Admin Adt)1349 ([facility] Hold - Provider: Admin Adt - Reason: Transfer to a Procedural area)1640 ([facility] Unhold - Provider: Admin Adt) vancomycin (VANCOCIN) injection (CANCELED) ONCE PRN, Starting on Sonal 01/08/20 at 1419, Until Sonal 01/08/20 at 2047, Intra-Operative (Intra-Procedure), Routine 1419 (Given - Provider: Yolanda Still MD) Linked Groups Order Group 1: lidocaine (LIDODERM) 5 % patch 3 patchJump to med 3 patch, Transdermal, EVERY 24 HOURS, First dose on Sonal 01/08/20 at 1015, Until Discontinued, Apply patch(es) for 12 hours, and then remove for 12 hours, Routine And lidocaine (LIDODERM) patch REMOVALJump to med Transdermal, EVERY 24 HOURS, First dose on Sonal 01/08/20 at 2200, Until Discontinued, Remove lidocaine 5 %(700 mg/patch) patch Group 2: HYDROmorphone (Dilaudid) tablet 2 mgJump to med 2 mg, Oral, EVERY 4 HOURS PRN, Starting on Sun01/07/20 at 0806, Until Sun01/09/20 at 1854, Pain, for mild pain (1-3), May give an additional 2 mg once if pain not relieved in 30-60 minutes., Routine Or HYDROmorphone (Dilaudid) tablet 4 mgJump to med 4 mg, Oral, EVERY 4 HOURS PRN, Starting on Sun01/07/20 at 0806, Until Sun01/09/20 at 1854, Pain, for moderate pain (4-6), May give an additional 2 mg once if pain not relieved in 30-60 minutes., Routine Or HYDROmorphone (Dilaudid) tablet 6 mgJump to med 6 mg, Oral, EVERY 4 HOURS PRN, Starting on Sun01/07/20 at 0806, Until Sun01/09/20 at 1854, Pain, for severe pain (7-10), May give an additional 2 mg once if pain not relieved in 30-60 minutes., Routine Group 3: oxyCODONE (Roxicodone) tablet 5 mg (CANCELED) 5 mg, Oral, EVERY 4 HOURS PRN, Starting on Sun01/06/20 at 2249, Until Sun01/07/20 at 0808, Pain, mild pain (1-3), For mild pain (1-3). Do not exceed 15 mg in 4 hours. If pain not relieved, call provider, Routine Or oxyCODONE (Roxicodone) tablet 10 mg (CANCELED) 10 mg, Oral, EVERY 4 HOURS PRN, Starting on Sun01/06/20 at 2249, Until Sun01/07/20 at 0808, Pain, moderate pain (4-6), For moderate pain (4-6). Do not exceed 15 mg in 4 hours. If pain not relieved, call provider., Routine Or oxyCODONE (Roxicodone) tablet 15 mg (CANCELED)Jump to med 15 mg, Oral, EVERY 4 HOURS PRN, Starting on Sun01/06/20 at 2249, Until Sun01/07/20 at 0808, Pain, severe pain (7-10), For severe pain (7-10). Do not exceed 15 mg in 4 hours. If pain not relieved, call provider., Routine documented in this encounter Care Teams Piper Helper Relationship Specialty Start Date End Date April Cummins, SP[address] [place] [address] PCP - General Internal Medicine 01/06/20 05/20/20 documented as of this encounter
--- OUTSIDE RECORDS SUMMARY | 2024-06-27 15:15 | XMS_ITS | Encounter Summary ---
[place] [address] Care Team Providers Care Facilities Specialist Name Role Phone April Cummins KALE Primary Care Provider [phone] Encounter Details Date Type Department Care Team (Late st Contact Info) Description 02/06/2020 Telephone [place] [id number] Moody Villafuerte Social History Tobacco Use Types Packs/Day Years [...] encounter Miscellaneous Notes * Telephone Encounter - Moody Villafuerte - 02/06/2020 4:54 PM EDT Patient called complaining of bruising of her contralateral side (right leg) as well as a upset stomach. She would like to discontinue her gabapentin and has 2 more doses of Lovenox. She relates tohaving nausea as well as a chalky thick stool. After speaking with Dr. Still, she agreed to discontinue the gabapentin, discontinue the Lovenox, and start weaning off the oxycodone. Once the patient is off the oxycodone she will likely resume having regular stools. It was recommended that she drink plenty of water, eat a high-fiber diet, as well as take stool softeners. She was instructed to call the clinic back next week Sunday or Sunday if she continues to have gastrointestinal distress. Patient agreed to this course of action and was happy to not need the Lovenox and gabapentin anymore. Agreed to wean off the oxycodone and stated that she does not really need it anymore. All questions and concerns were answered at this time. documented in this encounter Plan of Treatment Scheduled Procedures Name Priority Associated Diagnoses Date/Ti me COLONOSCOPY, DIAGNOSTIC (WRV U 3.26) Encounter for colorectal cancer screening documented as of this encounter Visit Diagnoses Not on filedocumented in this encounter Care Teams Facilities Specialist Relationship Specialty Start Date End Date April Cummins APRN [address] [place] [address] PCP - General Internal Medicine 01/06/20 05/20/20 documented as of this encounter
--- OUTSIDE RECORDS SUMMARY | 2024-06-27 15:15 | XMS_ITS | Encounter Summary ---
Author Organization [facility] [place] [address] Care Team Providers Care Tumble Tailstock Turret Lathe Operator Name Role Phone April Cummins KALE Primary Care Provider [phone] Encounter Details Date Type Department Care Team (Late st Contact Info) Description 04/06/2020 3:20 PM EDT Ancillary Procedure [place] [address] Yolanda Still MD [facility] [place] [address] Social History Tobacco Use Types Packs/Day Years [...] LIBRARY STORAGE ONLY DX LOWER EXTREMITY Routine 04/06/2020 3:17 PM EDT documented in this encounter Results * Film Library- Storage Only DX Lower Extremity (04/06/2020 3:17 PM EDT) Narrative RAD - 04/06/2020 3:17 PM EDT This exam is auto-finalizing. It's purpose is for storage only. Yolanda Still MD IMG FILM LIBRARY ORD ERABLES [place], [place] documented in this encounter Visit Diagnoses Not on filedocumented in this encounter Care Teams Tumble Tailstock Turret Lathe Operator Relationship Specialty Start Date End Date April Cummins, KALE [address] [place] [address] PCP - General Internal Medicine 01/06/20 05/20/20 documented as of this encounter
--- OUTSIDE RECORDS SUMMARY | 2024-06-27 15:15 | XMS_ITS | Encounter Summary ---
[place] [address] Care Team Providers Care Linen Grader Name Role Phone April Cummins Tanvir HENLEY Primary Care Provider [phone] Encounter Details Date Type Department Care Team (Late st Contact Info) Description 02/12/2020 [place] [id number] Moody Villafuerte Social History Tobacco Use Types [...] * Telephone Encounter - Moody Villafuerte - 02/12/2020 1:19 PM EDT Made an attempt to reach out to the patient. Unable to leave message at this time. Patient is to continue nonweightbearing exercises she is able to take the brace off to help relievethe irritation of the skin, bruises, swollen patches, etc. But she should wear the brace while ambulating. All activity and exercises should be done to tolerance. In order to reduce swelling, patientshould maintain the limb in an elevated fashion, above the heart. At this time there is no additional exercises that are advised. The area needs to [...] on filedocumented in this encounter Care Teams Linen Grader Relationship Specialty Start Date End Date April Cummins APRN [address] [place] [address] PCP - General Internal Medicine 01/06/20 05/20/20 documented as of this encounter
--- OUTSIDE RECORDS SUMMARY | 2024-06-27 15:15 | XMS_ITS | Encounter Summary ---
[place] [address] Care Team Providers Care Senior Research Analyst Name Role Phone April Cummins KALE Primary Care Provider [phone] Reason for Visit * Reason Onset Date Comments Bumped Appointment 04/02/2020 Encounter Details Date Type Department Care Team (Late st Contact Info) Description 04/02/2020 Telephone [place] [address] Yolanda Still MD [facility] [place] [address] Bumped Appointment Social History Tobacco Use Types Packs/Day Years [...] * Telephone Encounter - Yahaira Flores - 04/05/2020 8:17 AM EDT Patient rescheduled. * Telephone Encounter - Yahaira Flores - 04/02/2020 12:58 PM EDT LM #1 to call to reschedule christianomped 04/[address] Still's clinic, rescheduled to Joseline Bradleyson at same time or to PM in Tessy's schedule. documented in this encounter Plan of Treatment Scheduled Procedures Name Priority Associated Diagnoses Date/Ti me COLONOSCOPY, DIAGNOSTIC (WRV U 3.26) Encounter for colorectal cancer screening documented as of this encounter Visit Diagnoses Not on filedocumented in this encounter Care Teams Senior Research Analyst Relationship Specialty Start Date End Date April Cummins APRN [address] [place] [address] PCP - General Internal Medicine 01/06/20 05/20/20 documented as of this encounter
--- OUTSIDE RECORDS SUMMARY | 2024-06-27 15:15 | XMS_ITS | Encounter Summary ---
[place] [address] Care Team Providers Care Shake Out Worker Name Role Phone Rosita Cumminsyce Tanvir HENLEY Primary Care Provider [phone] Encounter Details Date Type Department Care Team (Late st Contact Info) Description 01/09/2020 Interpretation Only [address] [address] Viky Cordero MD [address] [place] [address] Social History Tobacco Use Types Packs/Day Years [...] Procedure Name Priority Date/Time Associated Diagnosis Comments CT HEAD WO CONTRAST (GENERIC) Routine 01/09/2020 11:43 PM EST documented in this encounter Results * CT Head wo Contrast (Generic) (01/09/2020 11:43 PM EST) Anatomical Region Laterality Modality Head Computed Tomogra phy 01/09/2020 11:4 3 PM EST Impressions 01/10/2020 2:05 AM EST [...] please contact the number below. ? Narrative 01/10/2020 2:05 AM EST EXAMINATION: CT HEAD OR BRAIN W/O CONTRAST CLINICAL HISTORY: ?seizure TECHNIQUE: CT head performed without intravenous contrast administration. COMPARISON: CT head dated 01/06/2020 FINDINGS: Bassett-white interface appears relatively well differentiated. No acute intracranial hemorrhage identified. No significant mass effect appreciated. Included paranasal sinuses appear well aerated. Included mastoid air cells appear well-aerated. Calvarium appears intact. Procedure Note Luis Ricardo MD - 01/10/2020 EXAMINATION: CT HEAD OR BRAIN W/O CONTRAST CLINICAL HISTORY: ?seizure TECHNIQUE: CT head performed without intravenous contrast administration. COMPARISON: CT head dated 01/06/2020 FINDINGS: Bassett-white interface appears relatively well differentiated. No acute intracranial hemorrhage identified. No significant mass effect appreciated. Included paranasal sinuses appear well aerated. Included mastoid air cells appear well-aerated. Calvarium appears intact. IMPRESSION No acute intracranial hemorrhage or mass effect identified. Preliminary report signed by: Melody Sabillon at 01/10/2020 12:19 AM I have personally reviewed the image(s) and the resident's interpretationand agree with the findings, Luis Ricardo at 01/10/2020 2:00 AM Thank you for letting us participate in the care of this patient. Forquestions regarding this report, please contact the number below. Viky Cordero MD IMG CT ORDERABLES documented in this encounter Visit Diagnoses Not on filedocumented in this encounter Care Teams Shake Out Worker Relationship Specialty Start Date End Date April Cummins APRN [address] [place] [address] PCP - General Internal Medicine 01/06/20 05/20/20 documented as of this encounter
--- OUTSIDE RECORDS SUMMARY | 2024-06-27 15:15 | XMS_ITS | Encounter Summary ---
Author Organization [facility] [place] [address] Care Team Providers Care Furnace Maintenance Name Role Phone PlacidoYee Tanvir HENLEY Primary Care Provider [phone] Encounter Details Date Type Department Care Team (Late st Contact Info) Description 03/22/2020 Telephone Orthopaedics at [address] [address] Tasha Bear Social History Tobacco Use Types Packs/Day Years [...] encounter Miscellaneous Notes * Telephone Encounter - Tasha Bear - 03/22/2020 3:53 PM EDT Pt called in to the ATC line requesting an XR be scheduled for her PT. Kalyn Burgos states the PT needs a recent XR. Upon review of her [...] on filedocumented in this encounter Care Teams Furnace Maintenance Relationship Specialty Start Date End Date April Cummins, BOILER TESTER [address] [place] [address] PCP - General Internal Medicine 01/06/20 05/20/20 documented as of this encounter
--- OUTSIDE RECORDS SUMMARY | 2024-06-27 15:15 | XMS_ITS | Encounter Summary ---
[place] [address] Care Team Providers Care Bit Welder Name Role Phone April Cummins KALE Primary Care Provider [phone] Encounter Details Date Type Department Care Team (Late st Contact Info) Description 03/23/2020 Orders [place] [address] Yolanda Still MD [facility] DR [place] [address] Closed displaced comminuted fracture of shaft of [...] as of this encounter Miscellaneous Notes * Addendum Note - Flavia Tatum - 03/23/2020 8:36 AM EDTAddended by: FLAVIA TATUM on: 03/23/2020 10:58 AM Modules accepted: Orders documented in this encounter Plan of Treatment Scheduled Procedures Name Priority Associated Diagnoses Date/Ti me COLONOSCOPY, DIAGNOSTIC (WRV U 3.26) Encounter for colorectal cancer screening documented as of this encounter Visit Diagnoses Diagnosis Closed displaced comminuted fracture of shaft of left tibia with routine healing, subsequent encounter documented in this encounter Care Teams Bit Welder Relationship Specialty Start Date End Date April Cummins, CLAY ARTIST [address] [place] [address] PCP - General Internal Medicine 01/06/20 05/20/20 documented as of this encounter
--- OUTSIDE RECORDS SUMMARY | 2024-06-27 15:15 | XMS_ITS | Encounter Summary ---
Author Organization [facility] Address [facility] [place] [address] Care Team Providers Care Remotely Operated Vehicle Name Role Phone April Cummins KALE Primary Care Provider [phone] Encounter Details Date Type Department Care Team (Latest Contact Info) Description 01/23/2020 9:09 AM EST - 01/23/2020 11:59 PM [facility] Hospital Encounter XRay at [address] [place] [address] Yolanda Still MD [facility] [place] [address] Closed displaced comminuted fracture of shaft of [...] Start Date End Date castor oil Oil Holden Oil, See Instructions, Apply topically, 0 Refill(s) 01/18/2020 pyridoxine, vitamin B6, (B-6) 100 mg Tablet Daily, 0 Refill(s) 01/18/2020 Ciclesonide (OMNARIS) 50 mcg [place], Non-Aerosol INSTILL TWO SPRAYS IN EACH NOSTRIL TWICE A DAY 12.5 g 09/08/2019 Rcypfqwf3-Hvrptr5-B trep therm. (VISBIOME) 112.5 billion cell CapsuleIndications: Small intestinal bacterial overgrowth,Irritabl e bowel syndrome with diarrhea Take 3 capsules by mouth daily. 90 capsule 3 04/29/2019 b complex vitamins Capsule Take 1 capsule by mouth daily. With folic acid B-1,2,3,5,12 Biotin acetylcysteine (NAC ORAL) Take by mouth daily. omega 9-vae-sfb-fish oil (Fish Oil) 100-160-1,000 mg Capsule Take by mouth. 01/18/2020 01/27/2022 ibuprofen (Advil;Motrin) 200 mg Tablet Take 200 mg by mouth every 6 hours as needed for Pain. 01/27/2022 enoxaparin (LOVENOX) 30 mg/0.3 mL Syringe Inject [...] of this encounter Plan of Treatment Scheduled Orders Name Type Priority Associated Diagnoses Orde r Schedule XR Knee 1-2 Views Left (Generic) Imaging Routine Closed displaced comminuted fracture of shaft of left tibia with routine healing, subsequent encounter 1 Occurrences starting 01/23/2020 until 01/23/2020 Scheduled Procedures Name Priority Associated Diagnoses Date/Ti me COLONOSCOPY, DIAGNOSTIC (WRV U 3.26) Encounter for colorectal cancer screening documented as of this encounter Procedures Procedure Name Priority Date/Time Associated Diagnosis Comments XR TIBIA FIBULA LEFT Routine 01/23/2020 9:47 AM EST Closed displaced comminuted fracture of shaft of left tibia with routine healing, subsequent encounter documented in this encounter Results * XR Tibia Fibula Left (Generic) (01/23/2020 9:47 AM EST) Anatomical Region Laterality Modality Left Digital Radiogra phy Impressions 01/23/2020 11:48 AM EST 1. ??ORIF of proximal comminuted tibial fracture in unchanged alignment. No hardware complication. 2. ??Unchanged position of comminuted proximal fibular fracture. I have personally reviewed the image(s) and the resident's interpretation and agree with the findings, Rosaura Saucedo at 01/23/2020 11:48 AM Thank you for letting us participate in the care of this patient. For questions regarding this report, please contact the number below. ? Electronically signed by: Rosaura Saucedo [facility] ([phone]), at 01/23/2020 11:48 AM Narrative 01/23/2020 11:48 AM EST EXAMINATION: XR TIBIA FIBULA LEFT (GENERIC) CLINICAL HISTORY: s/p proximal tib fib fracture and ex fix. Assess healing TECHNIQUE: AP and lateral views of the tibia and fibula COMPARISON: MRI 01/09/2020 Radiograph tibia and fibula 01/08/2020 FINDINGS: Status post ORIF of comminuted proximal tibial fracture with plate and screw fixation. Unchanged alignment at the fracture site. There is a linear fracture component that is from the parent bone, similar to prior. No hardware complication. The fracture lines remain visible. Unchanged position of comminuted fracture of the proximal fibular shaft which extends to the articular surface. [place] brace obscures the lateral projection of the fracture. Procedure Note Rosaura Saucedo MD - 01/23/2020 EXAMINATION: XR TIBIA FIBULA LEFT (GENERIC) CLINICAL HISTORY: s/p proximal tib fib fracture and ex fix. Assesshealing TECHNIQUE: AP and lateral views of the tibia and fibula COMPARISON: MRI 01/09/2020 Radiograph tibia and fibula 01/08/2020 FINDINGS: Status post ORIF of comminuted proximal tibial fracture with plate andscrew fixation. Unchanged alignment at the fracture site. There is a linearfracture component that is from the parent bone, similar to prior. Nohardware complication. The fracture lines remain visible. Unchanged position of comminuted fracture of the proximal fibular shaftwhich extends to the articular surface. [place] brace obscures the lateralprojection of the fracture. IMPRESSION 1. ORIF of proximal comminuted tibial fracture in unchanged alignment.No hardware complication. 2. Unchanged position of comminuted proximal fibular fracture. I have personally reviewed the image(s) and the resident's interpretationand agree with the findings, Rosaura Saucedo at 01/23/2020 11:48 AM Thank you for letting us participate in the care of this patient. Forquestions regarding this report, please contact the number below. Electronically signed by: Rosaura Saucedo [facility]([phone]), at 01/23/2020 11:48 AM Yolanda Still MD IMG DX ORDERABLES documented in this encounter Visit Diagnoses Diagnosis Closed displaced comminuted fracture of shaft of left tibia with routine healing, subsequent encounter documented in this encounter Care Teams Remotely Operated Vehicle Relationship Specialty Start Date End Date April Cummins APRN [address] [place] [address] PCP - General Internal Medicine 01/06/20 05/20/20 documented as of this encounter
--- OUTSIDE RECORDS SUMMARY | 2024-06-27 15:15 | XMS_ITS | Encounter Summary ---
Author Organization [facility] [place] [address] Care Team Providers Care Sales Representative Printing Name Role Phone April Cummins Tanvir HENLEY Primary Care Provider [phone] Reason for Referral * Physical Therapy (Routine) - Specialty Diagnoses / Procedures Referred By Rafael mart Referred To Contact Diagnoses Closed displaced comminuted fracture of shaft of left tibia with routine healing, subsequent encounter Carrie Lyon MD [facility] [place] [address] Referral ID Status Reason Start Date Expiration Date V isits Requested Visits Authorized [id number] Evaluate and Treat 01/23/2020 07/21/2020 12 12 Reason for Visit * Reason Comments Establish Care L proximal tibia Fx 01/06/20 ORIF 01/08/20 Encounter Details Date Type Department Care Team (Late st Contact Info) Description 01/23/2020 10:20 AM EST Office [place] [id number] Yolanda Still MD [facility] [place] [address] S/p left tibia ORIF for tibial plateau fracture 01/08/[address] Still (Primary Dx) Social History Tobacco Use Types [...] documented in this encounter Progress Notes * Kathie Cid PA - 01/23/2020 10:20 AM EST PATIENT NAME: Kalyn Burgos AGE: 59 y.o. MR#: [id number] DATE OF VISIT: 01/23/2020 CHIEF COMPLAINT: left proximal tibia ORIF 01/08/[address] Still HISTORY OF PRESENT ILLNESS: Ms. Carie Burgos is a 59 y.o. female who comes into clinic today for evaluation of the left leg. Had fall while skiing 01/06/2020. Had ex-fix paced initially. Had ORIF by 01/08/2020. Has been NWB. Has been compliant with this. Has been using Ronnie. Taking oxycodone and tylenol for pain. Denies numbness, tingling, change in sensation. Denies f/c/ns. Overall, the patient is doing well. Specifically, her pain is decreasing daily and she is working on passive and active knee ROM. Past medical history: [...] mg Tablet ??? Ciclesonide (OMNARIS) 50 mcg [place], Non-Aerosol ??? Ofsoethg0-Aobgaq4-Cyrsi therm. (VISBIOME) 112.5 billion cell Capsule ??? [...] drainage, purulence, dehiscence. Sutures in place. They will be removed today. Moderate edema at knee/proximal tibia [...] mobile in her wheelchair. Can wean from [place]. Can dogentle knee ROMAT. Sutures removed today. Can shower, but no soaking incision; no baths, lakes, hottubs, pools. Discussed s/s infection and return precautions; she expressed understanding. We reviewed the imaging together which is described above. We also discussed that we would wait to see if hermedial and lateral fractures would heal prior to [...] Referral to Physical Therapy Outpatient Referral Routine S/p left tibia ORIF for tibial plateau fracture 01/08/[address] Still Ordered: 01/23/2020 documented as of this encounter Results * [...] below. ? Electronically signed by: Rosaura Saucedo [facility] ([phone]), at 05/21/2020 11:19 AM Narrative 05/21/2020 11:19 AM EDT EXAMINATION: XR [...] number below. Electronically signed by: Rosaura Saucedo [facility]([phone]), at 05/21/2020 11:19 AM Floyd Grey MD IMG DX ORDERABLES * (ABNORMAL) Hemogram (01/23/2020 11:04 AM EST) WBC 5.0 4.0 - 9.5 x10(3)/[facility] [place] [facility] RBC 3.15(L) 4.00 - 5.21 x10(6)/[facility] [place] [facility] Hemoglobin 9.6(L) 11.7 - 15.5 gm/dL [facility] Hematocrit 30.3(L) 35.7 - 45.8 % [facility] MCV 96.2(H) 82.6 - 94.4 fL [facility] MCH 30.5 27.1 - 32.0 pg [facility] MCHC 31.7 31.7 - 35.0 gm/dL [facility] Platelets 508(H) 145 - 357 x10(3)/[facility] [place] [facility] RDWSD 47.8(H) 37.0 - 46.0 [facility] LAB[facility] RDWCV 13.7 11.5 - 14.1 % [facility] MPV 8.9 7.6 - 12.9 [facility] LAB[facility] nRBC % Auto 0.0 % [facility] nRBC Abs Auto 0.000 0.000 - 0.000 x10(3)/[facility] [place] [facility] Blood specimen (specimen) 01/23/2020 11:04 AM EST 01/23/2020 11:21 AM EST Narrative Resulting Agency Comment Spec In Lab Floyd Grey MD HEMATOLOGY ORDERABL ES [facility] [place] [address] documented in this encounter Visit Diagnoses Diagnosis S/p left tibia ORIF for tibial plateau fracture 01/08/[address] Still- Primary S/p left tibia ORIF for tibial plateau fracture 01/08/[address] Still documented in this encounter Care Teams Sales Representative Printing Relationship Specialty Start Date End Date April Cummins, KALE [address] [place] [address] PCP - General Internal Medicine 01/06/20 05/20/20 documented as of this encounter
--- OUTSIDE RECORDS SUMMARY | 2024-06-27 15:15 | XMS_ITS | Encounter Summary ---
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 Em MD HEMATOLOGY ORDERABLE S Performing Organization Address City/State/[facility] Co de Phone Number [facility] [place] [address] * (ABNORMAL) Basic Metabolic Panel (non-fasting) (01/09/2020 8:33 AM EST) Glucose Lvl 105 65 - 199 mg/dL [facility] Comment:Diabetes: >=200 mg/d L plus symptoms BUN 9 8 - 18 mg/dL [facility] Creatinine 0.69(L) 0.70 - 1.20 mg/dL [facility] Sodium 137 135 - 145 mmol/L [facility] Potassium 4.3 3.5 - 5.0 mmol/L [facility] Comment: Please note: ??Patients with WBC >100,000 may have falsely elevated Potassium levels. ??For accurate Potassium quantification in these patients send serum separator tube (gold top) for subsequent determinations. ??Contact the Clinical Chemistry Laboratory if there are any questions. Chloride 100 98 - 107 mmol/L [facility] CO2 29 22 - 31 mmol/L [facility] Anion Gap 8 5 - 15 mmol/L [facility] Calcium 8.8 8.5 - 10.5 mg/dL [facility] Estimated GFR 94 >=60 mL/min/1. 73 m?? [facility] Comment: The eGFR was calculated using the CKD-EPI equation. As with all creatinine based estimates of kidney function, eGFR values calculated with the CKD-EPI equation are not accurate in patients with acute kidney failure, extremes of body mass or the acutely ill. [email or web address] eGFR 109 >=60 mL/min/1. 73 m?? [facility] Comment: The eGFR was calculated using the CKD-EPI equation. As with all creatinine based estimates of kidney function, eGFR values calculated with the CKD-EPI equation are not accurate in patients with acute kidney failure, extremes of body mass or the acutely ill. [email or web address] Blood specimen (specimen) 01/09/2020 8:33 AM EST 01/09/2020 8:39 AM EST Narrative Resulting Agency Comment Spec In Lab Yolanda Still MD CHEMISTRY ORDERABLES [facility] [place] [address] * XR Tibia Fibula Left (Generic) (01/08/2020 [...] the number below. Electronically signed by: Vincent Caruana, [facility]([phone]), at 01/08/2020 4:01 PM Yolanda Still MD IMG DX ORDERABLES * XR Fluoro No Rad <1Hr - OR Use (01/08/2020 2:25 PM EST) Narrative RAD - 01/08/2020 2:26 PM EST This exam is auto-finalizing. No interpretation was done. Yolanda Still MD IMG FLUORO ORDERABLE S [place], [place] * (ABNORMAL) Differential, Automated (01/07/2020 1:58 AM EST) Neutrophils % 91.1 % [facility] Neutr Abs (ANC) 6.85(H) 1.70 - 6.10 x10(3)/mc L [facility] Lymphocytes % 6.0 % [facility] Lymphocytes Abs 0.4(L) 0.9 - 3.2 x10(3)/mc L [facility] Monocytes % 2.4 % [facility] Monocyte Abs 0.2(L) 0.3 - 0.9 x10(3)/mc L [facility] Eosinophils % 0.0 % [facility] Eosinophils Abs 0.0 0.0 - 0.4 x10(3)/mc L [facility] Basophils % 0.1 % [facility] Basophils Abs 0.0 0.0 - 0.1 x10(3)/mc L [facility] Immature Gran % 0.40 % [facility] Comment: Immature granulocytes(IG's)percentage and absolute count will include metamyelocytes, myelocytes, and promyelocytes. Blood smears from CBCs yielding IG's will be scanned manually for concordance. If this scan disagrees with the automated IG or if promyelocytes are noted, a manual differential will be performed. Elda Gran Abs 0.03 0.00 - 0.04 x10(3)/mc L [facility] Blood specimen (specimen) 01/07/2020 1:58 AM EST 01/07/2020 2:27 AM EST Narrative Resulting Agency Comment Spec In Lab Judd Lyon MD HEMATOLOGY ORDERABL ES Performing Organization Address City/State/[facility] Co de Phone Number [facility] [place] [address] * (ABNORMAL) Hemogram (01/07/2020 1:58 AM EST) WBC 7.5 4.0 - 9.5 x10(3)/[facility] RBC 3.17(L) 4.00 - 5.21 x10(6)/[facility] Hemoglobin 9.8(L) 11.7 - 15.5 gm/dL [facility] Hematocrit 30.4(L) 35.7 - 45.8 % [facility] MCV 95.9(H) 82.6 - 94.4 fL [facility] MCH 30.9 27.1 - 32.0 pg [facility] MCHC 32.2 31.7 - 35.0 gm/dL [facility] Platelets 195 145 - 357 x10(3)/[facility] RDWSD 48.6(H) 37.0 - 46.0 [facility] RDWCV 13.6 11.5 - 14.1 % [facility] MPV 10.2 7.6 - 12.9 [facility] nRBC % Auto 0.0 % [facility] nRBC Abs Auto 0.000 0.000 - 0.000 x10(3)/[facility] Blood specimen (specimen) 01/07/2020 1:58 AM EST 01/07/2020 2:27 AM EST Narrative Resulting Agency Comment Spec In Lab Judd Lyon MD HEMATOLOGY ORDERABL ES [facility] [place] [address] * Basic Metabolic Panel (non-fasting) (01/07/2020 1:58 AM EST) Glucose Lvl 150 65 - 199 mg/dL [facility] Comment:Diabetes: >=200 mg/d L plus symptoms BUN 9 8 - 18 mg/dL [facility] Creatinine 0.78 0.70 - 1.20 mg/dL [facility] Sodium 135 135 - 145 mmol/L [facility] Potassium 3.8 3.5 - 5.0 mmol/L [facility] Comment: Please note: ??Patients with WBC >100,000 may have falsely elevated Potassium levels. ??For accurate Potassium quantification in these patients send serum separator tube (gold top) for subsequent determinations. ??Contact the Clinical Chemistry Laboratory if there are any questions. Chloride 101 98 - 107 mmol/L [facility] CO2 23 22 - 31 mmol/L [facility] Anion Gap 11 5 - 15 mmol/L [facility] Calcium 8.6 8.5 - 10.5 mg/dL [facility] Estimated GFR 82 >=60 mL/min/1. 73 m?? [facility] Comment: The eGFR was calculated using the CKD-EPI equation. As with all creatinine based estimates of kidney function, eGFR values calculated with the CKD-EPI equation are not accurate in patients with acute kidney failure, extremes of body mass or the acutely ill. [email or web address]://[email or web address] eGFR 95 >=60 mL/min/1. 73 m?? [facility] Comment: The eGFR was calculated using the CKD-EPI equation. As with all creatinine based estimates of kidney function, eGFR values calculated with the CKD-EPI equation are not accurate in patients with acute kidney failure, extremes of body mass or the acutely ill. [email or web address] Blood specimen (specimen) 01/07/2020 1:58 AM EST 01/07/2020 2:27 AM EST Narrative Resulting Agency Comment Spec In Lab Yolanda Still MD CHEMISTRY ORDERABLES [facility] [place] [address] * CT Knee wo Contrast Left (Generic) [...] the number below. ? Electronically signed by: Sienna Sherman [facility] ([phone]), at 01/07/2020 5:53 AM Narrative 01/07/2020 5:53 [...] number below. Electronically signed by: Sienna Sherman [facility]([phone]), at 01/07/2020 5:53 AM Yolanda Still MD [facility] CT ORDERABLES * XR Fluoro No Rad <1Hr - OR Use (01/06/2020 8:07 PM EST) Narrative RAD - 01/06/2020 8:07 PM EST This exam is auto-finalizing. No interpretation was done. Viky Govea MD IMG FLUORO ORDERABLE S Performing Organization Address City/[facility]/ZIP Co de Phone Number [place], [place] * ABORH Recheck Status (01/06/2020 6:42 PM EST) ABORH Recheck Order Order Placed [facility] ABORH Type Recheck Complete [facility] Blood specimen (specimen) 01/06/2020 6:42 PM EST 01/06/2020 6:46 PM EST Narrative Resulting Agency Comment Spec In Lab Carrillo Manley MD BLOOD BANK LAB ORDER PATRICK Performing Organization Address [facility] Co de Phone Number [facility] [place] [address] * Antibody screen (01/06/2020 6:42 PM EST) Ab Screen Interp Negative [facility] Expires at [id number] on: 01/09/2020 [facility] Blood specimen (specimen) 01/06/2020 6:42 PM EST 01/06/2020 6:46 PM EST Narrative Resulting Agency Comment Spec In Lab Carrlilo Manley MD BLOOD BANK LAB ORDER PATRICK Performing Organization Address City/[facility]/ZIP Co de Phone Number [facility] [place] [address] * ABO/Rh Typing (01/06/2020 6:42 PM EST) ABORH Type O Pos [facility] Blood specimen (specimen) 01/06/2020 6:42 PM EST 01/06/2020 6:46 PM EST Narrative Resulting Agency Comment Spec In Lab Carrillo Manley MD BLOOD BANK LAB ORDER PATRICK Performing Organization Address City/[facility]/ZIP Co de Phone Number [facility] [place] [address] * (ABNORMAL) Differential, Automated (01/06/2020 6:41 PM EST) Neutrophils % 80.4 % [facility] Neutr Abs (ANC) 6.87(H) 1.70 - 6.10 x10(3)/[facility] Lymphocytes % 12.6 % [facility] Lymphocytes Abs 1.1 0.9 - 3.2 x10(3)/[facility] Monocytes % 6.1 % [facility] Monocyte Abs 0.5 0.3 - 0.9 x10(3)/[facility] Eosinophils % 0.2 % [facility] Eosinophils Abs 0.0 0.0 - 0.4 x10(3)/[facility] Basophils % 0.5 % [facility] Basophils Abs 0.0 0.0 - 0.1 x10(3)/[facility] Immature Gran % 0.20 % [facility] Comment: Immature granulocytes(IG's)percentage and absolute count will include metamyelocytes, myelocytes, and promyelocytes. Blood smears from CBCs yielding IG's will be scanned manually for concordance. If this scan disagrees with the automated IG or if promyelocytes are noted, a manual differential will be performed. Elda Gran Abs 0.02 0.00 - 0.04 x10(3)/ L [facility] Blood specimen (specimen) 01/06/2020 6:41 PM EST 01/06/2020 6:50 PM EST Narrative Resulting Agency Comment Spec In Lab Carrillo Manley MD HEMATOLOGY ORDERABLE S Performing Organization Address City/[facility]/ZIP Co de Phone Number [facility] [place] [address] * (ABNORMAL) Hemogram (01/06/2020 6:41 PM EST) WBC 8.6 4.0 - 9.5 x10(3)/[facility] RBC 3.40(L) 4.00 - 5.21 x10(6)/[facility] Hemoglobin 10.6(L) 11.7 - 15.5 gm/dL [facility] Hematocrit 32.5(L) 35.7 - 45.8 % [facility] MCV 95.6(H) 82.6 - 94.4 fL [facility] MCH 31.2 27.1 - 32.0 pg [facility] MCHC 32.6 31.7 - 35.0 gm/dL [facility] Platelets 195 145 - 357 x10(3)/[facility] RDWSD 47.7(H) 37.0 - 46.0 [facility] RDWCV 13.6 11.5 - 14.1 % [facility] MPV 10.0 7.6 - 12.9 [facility] nRBC % Auto 0.0 % [facility] nRBC Abs Auto 0.000 0.000 - 0.000 x10(3)/[facility] Blood specimen (specimen) 01/06/2020 6:41 PM EST 01/06/2020 6:50 PM EST Narrative Resulting Agency Comment Spec In Lab Carrillo Manley MD HEMATOLOGY ORDERABLE S [facility] [place] [address] * APTT (01/06/2020 6:41 PM EST) PTT 31 25 - 37 sec [facility] Comment: The PTT is NOT appropriate for heparin monitoring. Use the Anti-Xa level for heparin monitoring (HEP UFH) or LMWH monitoring (HEP LMW). A PTT less than 37 seconds generally indicates adequate hemostasis. Blood specimen (specimen) 01/06/2020 6:41 PM EST 01/06/2020 6:50 PM EST Narrative Resulting Agency Comment Spec In Lab Viky Govea MD HEMATOLOGY ORDERABLE S Performing Organization Address [facility] Phone Number [facility] [place] [address] * (ABNORMAL) Prothrombin Time (01/06/2020 6:41 PM EST) PT 13.3(H) 9.4 - 12.5 sec [facility] INR 1.2 [facility] Comment: An INR <2.0 indicates [...] MD HEMATOLOGY ORDERABLE S Performing Organization Address [facility] de Phone Number [facility] [place] [address] * Basic Metabolic Panel (non-fasting) (01/06/2020 6:41 PM EST) Glucose Lvl 100 65 - 199 mg/dL [facility] Comment:Diabetes: >=200 mg/d L plus symptoms BUN 10 8 - 18 mg/dL [facility] Creatinine 0.76 0.70 - 1.20 mg/dL [facility] Sodium 139 135 - 145 mmol/L [facility] Potassium 3.6 3.5 - 5.0 mmol/L [facility] Comment: Please note: ??Patients with WBC >100,000 may have falsely elevated Potassium levels. ??For accurate Potassium quantification in these patients send serum separator tube (gold top) for subsequent determinations. ??Contact the Clinical Chemistry Laboratory if there are any questions. Chloride 105 98 - 107 mmol/L [facility] CO2 23 22 - 31 mmol/L [facility] Anion Gap 11 5 - 15 mmol/L [facility] Calcium 8.8 8.5 - 10.5 mg/dL [facility] Estimated GFR 85 >=60 mL/min/1. 73 m?? [facility] Comment: The eGFR was calculated using the CKD-EPI equation. As with all creatinine based estimates of kidney function, eGFR values calculated with the CKD-EPI equation are not accurate in patients with acute kidney failure, extremes of body mass or the acutely ill. [email or web address]://[email or web address] eGFR 98 >=60 mL/min/1. 73 m?? [facility] Comment: The eGFR was calculated using the CKD-EPI equation. As with all creatinine based estimates of kidney function, eGFR values calculated with the CKD-EPI equation are not accurate in patients with acute kidney failure, extremes of body mass or the acutely ill. [email or web address] Blood specimen (specimen) 01/06/2020 6:41 PM EST 01/06/2020 6:50 PM EST Narrative Resulting Agency Comment Spec In Lab Viky Govea MD CHEMISTRY ORDERABLES Performing Organization Address City/State/[facility] Co de Phone Number [facility] [place] [address] * CT Head wo Contrast (Generic) (01/06/2020 [...] contact the number below. Electronically signed by: SHANE Krause [facility] ([phone]),at 01/06/2020 5:[address] ORDERABLES * Film Library- Storage Only DX Pelvis (01/06/2020 3:18 PM EST) Narrative RAD - 01/06/2020 3:18 PM EST This exam is auto-finalizing. It's purpose is for storage only. Adriana MAHMOOD FILM LIBRARY ORD ERABLES [place], [place] * Film Library- Storage Only DX Chest (01/06/2020 3:17 PM EST) Narrative [facility] - 01/06/2020 3:17 PM EST This exam is auto-finalizing. It's purpose is for storage only. Adriana Nicholas MD IMG FILM LIBRARY ORD ERABLES Performing Organization Address City/State/[facility] Co de Phone Number [place], [place] documented in this encounter Visit Diagnoses Diagnosis Closed displaced comminuted fracture of shaft of left tibia with routine healing, subsequent encounter Tibia fracture Closed fracture of unspecified part of tibia Postoperative anemia due to acute blood loss [...] tablet 1,000 mg 1,000 mg, Oral, EVERY 8 HOURS SCHEDULED, First dose on Sun01/06/20 at 2315, Until Discontinued, Maximum dose of acetaminophen is 4000 mg from all sources in 24 hours., Routine Given 01/07/2020 11:42 AM EST 1,000 mg Given 01/07/2020 3:39 AM EST 1,000 mg acetaminophen (Tylenol) tablet 1,000 mg 1,000 mg, [...] mg ceFAZolin (ANCEF) 1g in dextrose 5% 50mL 1 g, Intravenous, EVERY 8 HOURS, [...] (Active or Suspected): Prophylaxis New Bag 01/07/2020 2:49 PM EST 1 g 100 mL/hr New Bag 01/07/2020 7:33 AM EST 1 g 100 mL/hr New Bag 01/06/2020 10:59 PM EST 1 g 100 mL/hr ceFAZolin (ANCEF) 1g in dextrose 5% 50mL 1 g, Intravenous, EVERY 8 HOURS, 3 doses, First dose on Sun01/08/20 at 1545, Last dose on Sun01/09/20 at 0745, Administer over 30 Minutes, Please adjust first dose to be given 4 hours after intraoperative dose., Indication for (Active or Suspected): Prophylaxis Bag 01/09/2020 9:01 AM EST 1 g 100 mL/hr New Bag 01/09/2020 12:47 AM EST 1 g 100 mL/hr New Bag 01/08/2020 3:50 PM EST 1 g 100 mL/hr cyclobenzaprine (Flexeril) tablet 10 mg 10 mg, [...] Discontinued, Routine enoxaparin (LOVENOX) injection 40 mg 40 mg, Subcutaneous, EVERY 24 HOURS SCHEDULED (Daily), First dose on Sun01/07/20 at 0900, Until Discontinued, Routine Given 01/09/2020 9:01 AM EST 40 mg Given 01/07/2020 9:55 AM EST 40 mg fentaNYL (PF) 50 mcg/mL injection 1 dose, Starting on Sun01/06/20 at 1714, Until Sun01/06/20 at 1723, TAMARA MARK: cabinet override Given 01/06/2020 5:23 PM EST 50 mcg Given 01/06/2020 5:17 PM EST 50 mcg fentaNYL (PF) 50mcg/mL injection 50 mcg, Intravenous, EVERY 5 MIN PRN, Starting on Sun01/08/20 at 1243, Until Sonal 01/08/20 at 1609, Pain, or prior to injection of local anesthetic., Hold for respiratory rate less than 8 breaths per minute. (maximum dose 200 mcg), Day of Surgery (Day of Procedure), Routine Given 01/08/2020 12:48 PM EST 50 mcg FLUoxetine (PROzac) capsule 10 mg 10 mg, Oral, 3 TIMES DAILY, First dose (after last modification) on Sun01/06/20 at 2330, Until Discontinued, Routine Given 01/07/2020 8:55 AM EST 10 mg Given 01/06/2020 11:25 PM EST 10 mg FLUoxetine (PROzac) capsule 20 mg 20 mg, [...] EST 300 mg HYDROmorphone (DILAUDID) injection 0.2-0.4 mg 0.2-0.4 mg, Intravenous, EVERY 5 MIN PRN, Starting on Sun01/06/20 at 2028, Until Sun01/06/20 at 2159, Pain, Give 0.2 mg every 5 minutes [...] breakthrough pain., PACU Recovery, Routine Given 01/06/2020 8:57 PM EST 0.2 mg Given 01/06/2020 8:48 PM EST 0.4 mg Given 01/06/2020 8:31 PM EST 0.4 mg HYDROmorphone (DILAUDID) injection 0.4 mg 0.4 mg, Intravenous, ONCE PRN, 1 dose, Starting on Sun01/07/20 at 0047, Until Sun01/07/20 at 0102, Pain, For pain not controlled with current medications, Routine Given 01/07/2020 1:02 AM EST 0.4 mg HYDROmorphone (DILAUDID) injection 0.4 mg 0.4 mg, Intravenous, ONCE PRN, 1 dose, Starting on Sun01/07/20 at 1801, Until Sun01/07/20 at 1818, Pain, For pain not controlled with current medications, Routine Given 01/07/2020 6:18 PM EST 0.4 mg HYDROmorphone (DILAUDID) injection 0.4 mg 0.4 mg, Intravenous, ONCE PRN, 1 dose, Starting on Sun01/07/20 at 2205, Until Sun01/07/20 at 2247, Pain, For pain not controlled with current medications, Routine Given 01/07/2020 10:4 7 PM EST 0.4 mg HYDROmorphone (DILAUDID) injection 0.4 mg 0.4 mg, Intravenous, ONCE PRN, 1 dose, Starting on Sonal 01/08/20 at 0317, Until Sonal 01/08/20 at 0336, Pain, For pain not controlled with current medications, Routine Given 01/08/2020 3:36 AM EST 0.4 mg HYDROmorphone (DILAUDID) injection 0.5 mg 0.5 mg, Intravenous, ONCE PRN, 1 dose, Starting on 01/07/20 at 2359, Until Sonal 01/08/20 at 0018, Pain, For pain not controlled with current medications, Routine Given 01/08/2020 12:1 8 AM EST 0.5 mg HYDROmorphone (DILAUDID) injection 0.5 mg 0.5 mg, Intravenous, ONCE PRN, 1 dose, Starting on Sun01/08/20 at 0818, Until Sun01/09/20 at 1854, Pain, For pain not controlled with current medications, Routine HYDROmorphone (DILAUDID) injection 1 mg 1 mg, Intravenous, EVERY 30 MIN PRN, 2 doses, Starting on Sun01/06/20 at 1742, Until Sun01/06/20 at 1847, Pain, STAT Given 01/06/2020 6:47 PM EST 1 mg Given 01/06/2020 5:45 PM EST 1 mg HYDROmorphone (Dilaudid) tablet 2 mg 2 mg, [...] mg lactated Ringers 1,000 mL IV bolus at 4,000 mL/hr, Intravenous, ONCE, 1 dose, On Sun01/06/20 at 1709 New Bag 01/06/2020 5:32 PM EST 4000 mL/hr lactated ringers infusion 75 mL/hr, Intravenous, CONTINUOUS, Starting on Sun01/06/20 at 1709, Until Sun01/09/20 at 1854 New Bag 01/09/2020 8:10 AM EST 75 mL/hr 75 mL/hr New Bag 01/08/2020 12:21 AM EST 75 [...] mg/patch) patch LORazepam (Ativan) tablet 0.5 mg 0.5 mg, Oral, ONCE PRN, 1 dose, Starting on Sun01/07/20 at 0047, Until Sun01/07/20 at 0102, Anxiety, Routine Given 01/07/2020 1:02 AM EST 0.5 mg midazolam (PF) (VERSED) injection 1 mg 1 mg, Intravenous, EVERY 5 MIN PRN, Starting on Sun01/08/20 at 1243, Until Sun01/08/20 at 1609, Sleep, or prior to injection of local anesthetic, Hold for delirium/agitation. (Maximum dose 5 mg)., Day of Surgery (Day of Procedure), Routine Given 01/08/2020 12:53 PM EST 1 mg Given 01/08/2020 12:48 PM EST 1 mg oxyCODONE (Roxicodone) tablet 15 mg 15 mg, Oral, EVERY 4 HOURS PRN, Starting on Sun01/06/20 at 2249, Until Sun01/07/20 at 0808, Pain, severe pain (7-10), For severe pain (7-10). Do not exceed 15 mg in 4 hours. If pain not relieved, call provider., Routine Given 01/07/2020 3:3 9 AM EST 15 mg Given 01/06/2020 11:10 PM EST 15 mg polyethylene glycol (Miralax) packet 17 g 17 [...] Procedural area)1532 (JAN Unhold - Provider: Afua Ramachandran, MARLEY)1800 (Not Given - Provider: Sanjuana Solomon RN [...] MARLEY)1519 (Stopped - Provider: Frances Douglas, MARLEY) ceFAZolin (ANCEF) 1g in dextrose 5% 50mL [...] Until Discontinued, Routine 0955 (Given - Provider: Fracnes Douglas RN) 0831 (Not Given - Provider: Sanjuana Solomon RN - Reason: Order parameters not met)1242 ([facility] Hold - Provider: Admin Adt - Reason: Transfer to a Procedural area)1347 ([facility] Unhold - Provider: Admin Adt)1349 ([facility] Hold - Provider: Admin Adt - Reason: Transfer to a Procedural area)1640 ([facility] Unhold - Provider: Admin Adt) 0901 (Given - Provider: Sanjuana Solomon RN) FLUoxetine (PROzac) capsule 10 mg (CANCELED) 10 mg, Oral, 3 TIMES DAILY, First dose (after last modification) on Sun01/06/20 at 2330, Until Discontinued, Routine 0855 (Given - Provider: Frances Douglas RN) FLUoxetine (PROzac) capsule 20 mg 20 mg, Oral, 2 TIMES DAILY, First dose (after last modification) on Sun01/07/20 at 2100, Until Discontinued, Routine 2011 (Given - Provider: Jaimie Martinez RN) 0822 (Given - Provider: Sanjuana Solomon RN)1242 ([facility] Hold - Provider: Admin Adt - Reason: Transfer to a Procedural area)1347 ([facility] Unhold - Provider: Admin Adt)1349 ([facility] Hold - Provider: Admin Adt - [...] RN) 0901 (Given - Provider: Sanjuana Solomon, MARLEY)1603 (Given - Provider: Sanjuana Solomon RN) lidocaine (LIDODERM) 5 % patch 3 [...] Procedural area)1640 ([facility] Unhold - Provider: Admin Adt)2200 (Patch Removed [...] RN - Reason: Order parameters not met)1242 ([facility] Hold - Provider: Admin Adt - Reason: Transfer to a Procedural area)1347 ([facility] Unhold - Provider: Admin Adt)1349 ([facility] Hold - Provider: Admin Adt - Reason: Transfer to a Procedural area)1640 ([facility] Unhold - Provider: Admin Adt)2113 (Given - Provider: Olu Hernandez RN) 0901 (Given - Provider: Sanjuana Solomon RN) senna-docusate (Pericolace) 8.6-50 mg per tablet 2 tablet 2 tablet, Oral, 2 TIMES DAILY, First dose on Sun01/06/20 at 2315, Until Discontinued, Routine 0900 (Not Given - Provider: Frances Douglas RN - Reason: Patient/family refused)2010 (Given - Provider: Jaimie Martinez RN) 0822 (Given - Provider: Sanjuana Solomon RN)1242 ([facility] Hold - Provider: Admin Adt - Reason: Transfer to a Procedural area)1347 ([facility] Unhold - Provider: Admin Adt)1349 (MAR Hold - Provider: Admin Adt - Reason: Transfer to a Procedural area)1640 ([facility] Unhold - Provider: Admin Adt)2113 (Given - Provider: Olu Hernandez RN) 0901 (Given - Provider: Sanjuana Solomon RN) sodium chloride 0.9 % (flush) flush 5 mL 5 mL, Intravenous, 2 TIMES DAILY, First dose on Sun01/06/20 at 2315, Until Discontinued, Routine 0951 (Given - Provider: Frances Douglas RN)2100 (Due) 0830 (Given - Provider: Sanjuana Solomon RN)1242 ([facility] Hold - Provider: Admin Adt - Reason: Transfer to a Procedural area)1347 ([facility] Unhold - Provider: Admin Adt)1349 ([facility] Hold - Provider: Admin Adt - Reason: Transfer to a Procedural area)1640 ([facility] Unhold - Provider: Admin Adt)211 (Given - Provider: Olu Hernandez RN) 0900 (Given - Provider: Sanjuana Solomon, RN) Continuous Medication Order 01/07/2020 01/08/2020 01/09/2020 lactated ringers infusion 75 mL/hr, Intravenous, CONTINUOUS, Starting on 01/06/20 at 1709, Until Sun01/09/20 at 1854 1021 (New Bag - Provider: Kerri Diaz RN) 0021 (New Bag - Provider: Jaimie Martinez RN)0354 (Stopped - Provider: Jaimie Martinez RN - Comment: Per pt request)1242 ([facility] Hold - Provider: Admin Adt - Reason: Transfer to a Procedural area)1347 ([facility] Unhold - Provider: Admin Adt)1349 ([facility] Hold - Provider: Admin Adt - Reason: Transfer to a Procedural area)1519 ([facility] Unhold - Provider: Afua Ramachandran, MARLEY) 0810 (New Bag - Provider: Es Tamayo RN) PRN Medication Order 01/07/2020 01/08/2020 01/09/2020 cyclobenzaprine (Flexeril) tablet 10 mg 10 mg, Oral, 3 TIMES DAILY PRN, Starting on Sonal 01/08/20 at 0027, Until Sun01/09/20 at 1854, Muscle spasms, Routine 0047 (Given - Provider: Jaimie Martinez RN)0823 (Given - Provider: Sanjuana Solomon, MARLEY)1242 ([facility] Hold - Provider: Admin Adt - Reason: Transfer to a Procedural area)1347 ([facility] Unhold - Provider: Admin Adt)1349 ([facility] Hold - Provider: Admin Adt - Reason: Transfer to a Procedural area)1532 ([facility] Unhold - Provider: Afua Ramachandran, MARLEY) 0901 (Given - Provider: Sanjuana Solomon, RN)1315 (Given - Provider: Sanjuana Solomon, RN) Dextromethorphan HBr 5 mg/5 mL oral syrup 15 mg 15 mg, Oral, EVERY 4 HOURS PRN, Cough, For resetting opioid receptors, give with dilaudid., Starting on Sonal 01/08/20 at 0316, Until Sun01/09/20 at 1854 0350 (Given - Provider: Jaimie Martinez RN)1242 (JAN Hold - Provider: Admin Adt - Reason: Transfer to a Procedural area)1347 ([facility] Unhold - Provider: Admin Adt)1349 ([facility]AN Hold - Provider: Admin Adt - Reason: Transfer to a Procedural area)1640 ([facility] Unhold - Provider: Admin Adt) fentaNYL (PF) [...] Intravenous, ONCE PRN, 1 dose, Starting on 01/07/20 at 0047, Until Sun01/07/20 at 0102, Pain, For pain not controlled with current medications, Routine 010 (Given - Provider: Lily Oakley RN) HYDROmorphone (DILAUDID) injection 0.4 mg (COMPLETED) 0.4 mg, Intravenous, ONCE PRN, 1 dose, Starting on Sun01/07/20 at 1801, Until Sun01/07/20 at 1818, Pain, For pain not controlled with current medications, Routine 181 (Given - Provider: Frances Douglas RN) HYDROmorphone (DILAUDID) injection 0.4 mg (COMPLETED) 0.4 mg, Intravenous, ONCE PRN, 1 dose, Starting on 01/07/20 at 2205, Until Sun01/07/20 at 2247, Pain, For pain not controlled with current medications, Routine 224 (Given - Provider: Jaimie Martinez RN) HYDROmorphone (DILAUDID) injection 0.4 mg (COMPLETED) 0.4 mg, Intravenous, ONCE PRN, 1 dose, Starting on Sonal 01/08/20 at 0317, Until Sonal 01/08/20 at 0336, Pain, For pain not controlled with current medications, Routine 033 (Given - Provider: Jaimie Martinez RN) HYDROmorphone (DILAUDID) injection 0.5 mg (COMPLETED) 0.5 mg, Intravenous, ONCE PRN, 1 dose, Starting on Sun01/07/20 at 2359, Until Sun01/08/20 at 0018, Pain, For pain not controlled with current medications, Routine 0018 (Given - Provider: Jaimie Martinez RN) HYDROmorphone (DILAUDID) injection 0.5 mg 0.5 mg, Intravenous, ONCE PRN, 1 dose, Starting on Sonal 01/08/20 at 0818, Until Sun01/09/20 at 1854, Pain, For pain not controlled with current medications, Routine 1242 ([facility] Hold - Provider: Admin Adt - Reason: Transfer to a Procedural area)1347 ([facility] Unhold - Provider: Admin Adt)1349 ([facility] Hold - Provider: Admin Adt - Reason: Transfer to a Procedural area)1640 ([facility] Unhold - Provider: Admin Adt) HYDROmorphone [...] Martinez RN) 0020 (See Alternative - Provider: Jaimie Martinez RN)0431 (See Alternative - Provider: Jaimie Martinez RN)0823 (See Alternative - Provider: Sanjuana Solomon RN)1242 ([facility] Hold - Provider: Admin Adt - Reason: Transfer to a Procedural area)1347 ([facility] Unhold - Provider: Admin Adt)1349 ([facility] Hold - Provider: Admin Adt - Reason: Transfer to a Procedural area)1519 ([facility] Unhold - Provider: Afua Ramachandran RN)2233 (See Alternative - Provider: Olu Hernandez RN) 0545 (See Alternative - Provider: Olu Hernandez RN)1032 (See Alternative - Provider: Es Tamayo, MARLEY) HYDROmorphone (Dilaudid) tablet 4 mg(Linked Group 2) [...] Martinez RN) 0020 (See Alternative - Provider: Jaimie Martinez RN)0431 [...] Martinez RN) 0020 (Given - Provider: Jaimie Martinez, MARLEY)0431 (Given - Provider: Jaimie Martinez, RN)0823 (Given - Provider: Sanjuana Solomon RN)1242 ([facility] Hold - Provider: Admin Adt - Reason: Transfer to a Procedural area)1347 ([facility] Unhold - Provider: Admin Adt)1349 ([facility] Hold - Provider: Admin Adt - Reason: Transfer to a Procedural area)1519 ([facility] Unhold - Provider: Afua Ramachandran RN)2233 (Given - Provider: Olu Hernandez, MARLEY) 0545 (Given - Provider: Olu Hernandez, MARLEY)1032 (Given - Provider: Es Tamayo RN) lidocaine (XYLOCAINE) 10 mg/mL (1 %) injection 3 mg 3 mg (0.3 mL), Subcutaneous, ONCE PRN, 1 dose, Starting on Sun01/06/20 at 2249, Until Sun01/09/20 at 1854, for discomfort with PIV insertion, Routine 1242 ([facility] Hold - Provider: Admin Adt - Reason: Transfer to a Procedural area)1347 ([facility] Unhold - Provider: Admin Adt)1349 ([facility] Hold - Provider: Admin Adt - Reason: Transfer to a Procedural area)1640 ([facility] Unhold - Provider: Admin Adt) LORazepam (Ativan) tablet 0.5 mg (COMPLETED) 0.5 mg, Oral, ONCE PRN, 1 dose, Starting on Sun01/07/20 at 0047, Until Sun01/07/20 at 0102, Anxiety, Routine 0102 (Given - Provider: Lily Oakley RN) midazolam (PF) (VERSED) injection 1 mg (CANCELED) 1 mg, Intravenous, EVERY 5 MIN PRN, Starting on Sonal 01/08/20 at 1243, Until Sonal 01/08/20 at 1609, Sleep, or prior to injection of local anesthetic, Hold for delirium/agitation. (Maximum dose 5 mg)., Day of Surgery (Day of Procedure), Routine 1248 (Given - Provider: Mirian Martinez, MARLEY)1253 (Given - Provider: Mirian Martinez, MARLEY) ondansetron (ZOFRAN) injection 4 mg 4 mg, Intravenous, EVERY 8 HOURS PRN, Starting on Sun01/06/20 at 2249, Until Sun01/09/20 at 1854, Nausea, If multiple antiemetics are ordered, use ondansetron first, prochlorperazine second, metoclopramide third. 1242 ([facility] Hold - Provider: Admin Adt - Reason: Transfer to a Procedural area)1347 ([facility] Unhold - Provider: Admin Adt)1349 ([facility] Hold - Provider: Admin Adt - Reason: Transfer to a Procedural area)1640 ([facility] Unhold - Provider: Admin Adt) oxyCODONE (Roxicodone) tablet 15 mg (CANCELED)(Linked Group 3) 15 mg, Oral, EVERY 4 HOURS PRN, Starting on Sun01/06/20 at 2249, Until Sun01/07/20 at 0808, Pain, severe pain (7-10), For severe pain (7-10). Do not exceed 15 mg in 4 hours. If pain not relieved, call provider., Routine 033 (Given - Provider: Ad South RN) sodium chloride 0.9 % (flush) flush 5-20 mL 5-20 mL, Intravenous, EVERY 1 MIN PRN, Starting on Sun01/06/20 at 2249, Until Sun01/09/20 at 1854, flush, Flush pertains to all indwelling lines. Flush per protocol found in the job aid using the link provided on this medication record., Routine 1242 ([facility] Hold - Provider: Admin Adt - Reason: Transfer to a Procedural area)1347 ([facility] Unhold - Provider: Admin Adt)1349 ([facility] Hold - Provider: Admin Adt - Reason: Transfer to a Procedural area)1640 ([facility] Unhold - Provider: Admin Adt) vancomycin (VANCOCIN) injection (CANCELED) ONCE PRN, Starting on Sun01/08/20 at 1419, Until Sun01/08/20 at 2047, Intra-Operative (Intra-Procedure), Routine 1419 (Given [...] Routine documented in this encounter Care Teams Zipper Slide Attacher Relationship Specialty Start Date End Date April Cummins, NIB ADJUSTER [address] [place] [address] PCP - General Internal Medicine 01/06/20 05/20/20 documented as of this encounter
--- OUTSIDE RECORDS SUMMARY | 2024-06-27 15:15 | XMS_ITS | Encounter Summary ---
[place] [address] Care Team Providers Care Staff Anesthetist Name Role Phone April Cummins KALE Primary Care Provider [phone] Encounter Details Date Type Department Care Team (Late st Contact Info) Description 03/24/2020 Telephone [place] [id number] Marlyn Puri, MARLEY Social History Tobacco Use Types Packs/Day Years [...] fracture which took 6 months to heal and required subsequent bone graft surgery. I told her I would discuss these xrays with Dr. Still tomorrow, but we would likely have her NWB for 12 weeks total. Spoke with her for 9 minutes. Answeredall questions. Okay for knee and ankle ROM. Endorses diffuse lower leg weakness and atrophy. * Telephone Encounter - Marlyn Puri, RN - 03/24/2020 2:08 PM EDT Returned call to Ms Darnell * Telephone Encounter - Marlyn Puri, RN - 03/24/2020 11:28 AM EDT S/P [...] her appointment on 04/16. Best Call Back: [phone] documented in this encounter Plan of Treatment Scheduled Procedures Name Priority Associated Diagnoses Date/Ti me COLONOSCOPY, DIAGNOSTIC (WRV U 3.26) Encounter for colorectal cancer screening documented as of this encounter Visit Diagnoses Not on filedocumented in this encounter Care Teams Staff Anesthetist Relationship Specialty Start Date End Date April Cummins APRN [address] [facility] [place] [address] PCP - General Internal Medicine 01/06/20 05/20/20 documented as of this encounter
--- OUTSIDE RECORDS SUMMARY | 2024-06-27 15:15 | XMS_ITS | Encounter Summary ---
[place] [address] Care Team Providers Care Dry Cleaning Counter Clerk Name Role Phone April Cummins KALE Primary Care Provider [phone] Encounter Details Date Type Department Care Team (Latest Contact Info) Description 01/23/2020 10:55 AM EST Laboratory Appointment Lab [address] [place] [id number] S/p left tibia ORIF for tibial plateau fracture 01/08/[address] Still Social History Tobacco Use Types Packs/Day Years [...] Procedure Name Priority Date/Time Associated Diagnosis Comments HC HEMOGRAM Routine 01/23/2020 11:04 AM EST S/p left tibia ORIF for tibial plateau fracture 01/08/[address] Still documented in this encounter Results * (ABNORMAL) Hemogram (01/23/2020 11:04 AM EST) WBC 5.0 4.0 - 9.5 x10(3)/[facility] RBC 3.15(L) 4.00 - 5.21 x10(6)/[facility] Hemoglobin 9.6(L) 11.7 - 15.5 gm/dL [facility] Hematocrit 30.3(L) 35.7 - 45.8 % [facility] MCV 96.2(H) 82.6 - 94.4 fL [facility] MCH 30.5 27.1 - 32.0 pg [facility] MCHC 31.7 31.7 - 35.0 gm/dL [facility] Platelets 508(H) 145 - 357 x10(3)/[facility] RDWSD 47.8(H) 37.0 - 46.0 [facility] RDWCV 13.7 11.5 - 14.1 % [facility] MPV 8.9 7.6 - 12.9 [facility] nRBC % Auto 0.0 % [facility] nRBC Abs Auto 0.000 0.000 - 0.000 x10(3)/[facility] Blood specimen (specimen) 01/23/2020 11:04 AM EST 01/23/2020 11:21 AM EST Narrative Resulting Agency Comment Spec In Lab Floyd Grey MD HEMATOLOGY ORDERABL ES [facility] [place] [address] documented in this encounter Visit Diagnoses Diagnosis S/p left tibia ORIF for tibial plateau fracture 01/08/[address] Still documented in this encounter Care Teams Dry Cleaning Counter Clerk Relationship Specialty Start Date End Date April Cummins APRN [address] [place] [address] PCP - General Internal Medicine 01/06/20 05/20/20 documented as of this encounter
--- OUTSIDE RECORDS SUMMARY | 2024-06-27 15:15 | XMS_ITS | Encounter Summary ---
[place] [address] Care Team Providers Care Reinsurance Clerk Name Role Phone April Cummins KALE Primary Care Provider [phone] Reason for Visit * Reason Onset Date Comments Questions 04/05/2020 Encounter Details Date Type Department Care Team (Late st Contact Info) Description 04/05/2020 Telephone [place] [address] Yolanda Still MD [facility] [place] [address] Questions Social History Tobacco Use Types Packs/Day [...] encounter Miscellaneous Notes * Telephone Encounter - Jojo Fowler - 04/06/2020 10:58 AM EDT Patient Scheduled * Telephone Encounter - Yahaira Flores - 04/05/2020 12:48 PM EDT Rerouting to nurse pool, patient has questions. * Telephone Encounter - Daina Monzon - 04/05/2020 11:41 AM EDT Patient called returning a call today. Please call patient at earliest convenience. If you call and get VM, please call right back as it is taking her a long time to get to the phone.Routed to secretarial team. * Telephone Encounter - Yahaira Flores - [...] on filedocumented in this encounter Care Teams Reinsurance Clerk Relationship Specialty Start Date End Date April Cummins APRN [address] [place] [address] PCP - General Internal Medicine 01/06/20 05/20/20 documented as of this encounter
--- OUTSIDE RECORDS SUMMARY | 2024-06-27 15:15 | XMS_ITS | Encounter Summary ---
[place] [address] Care Team Providers Care Waredresser Name Role Phone April Cummins Tanvir HENLEY Primary Care Provider [phone] Encounter Details Date Type Department Care Team (Late st Contact Info) Description 01/23/2020 Orders [place] [address] Yolanda Still MD [facility] [place] [address] Closed displaced comminuted fracture of shaft of [...] below. ? Electronically signed by: Rosaura Saucedo [facility] ([phone]), at 01/23/2020 11:48 AM Narrative 01/23/2020 11:48 [...] shaft which extends to the articular surface. Reeder brace obscures the lateral projection of the [...] fibular shaftwhich extends to the articular surface. Reeder brace obscures the lateralprojection of the fracture. [...] number below. Electronically signed by: Rosaura Saucedo [facility]([phone]), at 01/23/2020 11:48 AM Yolanda Still MD IMG DX ORDERABLES documented in this encounter Visit Diagnoses Diagnosis Closed displaced comminuted fracture of shaft of left tibia with routine healing, subsequent encounter Closed displaced comminuted fracture of shaft of left tibia with routine healing, subsequent encounter documented in this encounter Care Teams Waredresser Relationship Specialty Start Date End Date April Cummins APRN [address] [place] [address] PCP - General Internal Medicine 01/06/20 05/20/20 documented as of this encounter
--- OUTSIDE RECORDS SUMMARY | 2024-06-27 15:15 | XMS_ITS | Encounter Summary ---
Author Organization [facility] [place] [address] Care Team Providers Care Innovation Manager Name Role Phone Rosita Cumminsyce Tanvir HENLEY Primary Care Provider [phone] Reason for Visit * Reason Onset Date Comments Medication Refill 01/28/2020 Encounter Details Date Type Department Care Team (Late st Contact Info) Description 01/28/2020 Refill [place] [address] Hetal Kruger PA [facility] [place] [address] Closed displaced comminuted fracture of shaft of [...] encounter Miscellaneous Notes * Telephone Encounter - Laura Hawkins RN - [...] more and went until this morning without taking any. Did not get any sleep last night due to the pain. Pain level: currently 5/10 after 1 tab this morning Bowel concerns: no concerns at this time Other pain medications used and how: Unable to take Tylenol as it gives her headaches; has outdatedibuprofen (asked her to order picker new ibuprofen); does not take the flexeril [...] Requested Prescription to be sent electronically to [facility] [place], [place](location). Prescription prepped and pended for Becca [...] encounter documented in this encounter Care Teams Innovation Manager Relationship Specialty Start Date End Date April Cummins APRN [address] [place] [address] PCP - General Internal Medicine 01/06/20 05/20/20 documented as of this encounter
--- OUTSIDE RECORDS SUMMARY | 2024-06-27 15:15 | XMS_ITS | Encounter Summary ---
[place] [address] Care Team Providers Care Pilot Plant Operator Name Role Phone April Cummins KALE Primary Care Provider [phone] Encounter Details Date Type Department Care Team (Late st Contact Info) Description 01/13/2020 [place] [address] Rosemary Ray APRN [facility] [address] Social History Tobacco Use Types Packs/Day Years [...] encounter Miscellaneous Notes * Telephone Encounter - Rosemary Ray APRN - 01/16/2020 9:39 AM EST I talked to Dr. Givens at [facility]. She is doing well urologically per his review. LM for pt that I had spoken with her provider and that she could contact me if there are questions or additional information she would like me to be aware of. * Telephone Encounter - Kathleen Vasquez - 01/13/2020 12:10 PM EST PT called. She reports that she is admitted at [facility]. PT says that she would like [facility] to call[facility] to discuss what is happening. Told PT that I would send her a message and ask her to call. PT would like [facility] to call and speak with her provider at [facility]. PT doesn't know who that it. PT seems very confused and disoriented. PT cell-- [phone] documented in this encounter Plan of Treatment Scheduled Procedures Name Priority Associated Diagnoses Date/Ti me COLONOSCOPY, DIAGNOSTIC (WRV U 3.26) Encounter for colorectal cancer screening documented as of this encounter Visit Diagnoses Not on filedocumented in this encounter Care Teams Pilot Plant Operator Relationship Specialty Start Date End Date April Cummins APRN [address] [facility] [place] [address] PCP - General Internal Medicine 01/06/20 05/20/20 documented as of this encounter
--- OUTSIDE RECORDS SUMMARY | 2024-06-27 15:16 | XMS_ITS | Encounter Summary ---
[place] [address] Care Team Providers Care Head Of History Name Role Phone April Cummins Tanvir HENLEY Primary Care Provider [phone] Encounter Details Date Type Department Care Team (Late st Contact Info) Description 09/23/2019 Telephone [place] [id number] Flako Orbien RN Social History Tobacco Use Types Packs/Day [...] encounter Miscellaneous Notes * Telephone Encounter - Flako Obrien RN - 09/23/2019 4:06 PM EDT Patient leaves message asking for size of fibroid that was found on ultrasound done in March. She is following up on this result. Attempted to return call. PARDEEP on unidentifiable VM advising her to check myD-H account or call clinic to discuss. Per US report Incidental finding of an anterior fibroid of the uterus measuirng 1.8 x 1.9 x 1.9 cm documented in this encounter Plan of Treatment Scheduled Procedures Name Priority Associated Diagnoses Date/Ti me COLONOSCOPY, DIAGNOSTIC (WRV U 3.26) Encounter for colorectal cancer screening documented as of this encounter Visit Diagnoses Not on filedocumented in this encounter Care Teams Head Of History Relationship Specialty Start Date End Date April Cummins, RETAIL PRODUCT ADVISOR [address] [place] [address] PCP - General Internal Medicine 11/06/18 11/19/19 documented as of this encounter
--- OUTSIDE RECORDS SUMMARY | 2024-06-27 15:16 | XMS_ITS | Encounter Summary ---
Author Organization [facility] [address] Care Team Providers Care Environmental Services Manager Name Role Phone April Cummins KALE Primary Care Provider [phone] Encounter Details Date Type Department Care Team (Late st Contact Info) Description 04/17/2019 2:00 PM EDT [place] [address] Rosemary Ray APRN [facility] [place] [address] Pelvic floor dysfunction; Mixed stress and urge urinary incontinence; Lower urinary tract symptoms (LUTS); History of nephrolithiasis; Renal cyst, acquired; Cystocele, midline Social History Tobacco Use Types Packs/Day Years [...] Sign Reading Time Taken Comments Blood Pressure 97/61 04/17/2019 1:52 PM EDT Pulse 54 04/17/2019 1:52 PM EDT Temperature - - Respiratory Rate - - Oxygen Saturation 100% 04/17/2019 1:52 PM EDT Inhaled Oxygen Concentration - - Weight - - Height - - Body Mass Index - - documented in this encounter Progress Notes * Patrick Rayley, MONITORING COORDINATOR - 04/17/2019 2:00 PM EDT UROLOGY History of Present Illness: Kalyn Cuevas is an 58 y.o. year old woman here for follow up. Renal cyst: Has known renal cyst, likely simple noted on CT, but repeat US was recommended 2018. Repeatrenal US today showed: US today 03/2019 in discussion with the Radiologist: Simple cyst-no concerns Additional finding, normal pelvis. ? Hx ureteral stone: States remote history of possible stone. Stent was placed at [facility]. She was told she had a stone. Did not tolerate the stent well. May have had UTI at this time. No kidney stone passage. She does have some left back soreness. Has been tired. Urinary incontinence: Hx frequency/urgency and urge incontinence. 08/2018, seen at [facility], UA/culture negative. Incontinence resolved. She has failed ditropan per PCP notes. Doing better with leaking. Did pelvic floor therapy. She has no concerns at this time. Voiding regularly History of UTI symptoms: Urine culture: 11/2018: 10-49 strep viridans. 11/08/2018: contaminated Two episodes of urinary infections/pyelo she feels. She has a history of cystitis as a younger adult. She states her PCP did treat her with 11 days of abx. No recent UTIs. 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 Feels she has systemic yeast. She meditates and does yoga. 05/2018: per labs, normal renal function 0.96 Gyne: G 1 P1 1 csection menopause: [...] Cystocele, midline N81.11 ??? 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 APPENDECTOMY ??? BACK SURGERY ??? SECTION ??? SHOULDER ARTHROSCOPY ??? TIBIA FRACTURE SURGERY ??? URETER STENT PLACEMENT csection Appendectomy Back fusion Family history: none urologic Social: . No smoking, had second hand smoke. No etoh. OBJECTIVE FINDINGS: Vitals: recorded on the flow sheet - normal. Pleasant woman in no acute distress. Abdomen: points to left flank discomfort, otherwise deferred Pelvic: deferred (11/2018: The external genitalia are normal with normal hair distribution and no lesions. The meatus is in a normal location with a normal configuration. There is mobility of the bladder neck. The urethra is nontender. There are no urethral masses. The patient does leak in the supine position with a valsalva and with coughing. There is a Gr. I cystocele and a Gr.I rectocele. Thereare no pelvic masses. The patient can K[place] effectively. The uterus is normal and the adenexa are nonpalpable. The uterus is well supported. Normal reported vaginal sensation. Small amount of white vaginal discharge. Rectal: The anus and perineum are normal. Rectal sphincter tone is normal. There is not any levator ani tenderness, and there are no rectal masses. ) Musculoskeletal: grossly normal, normal gait Neurologic: grossly normal PVR with bladder scanner by my review: deferred 11/2018 0-50 cc. U/A by my review: will send for UA/culture when she is able to void today CT 01/2018 done for ileus. Kidneys with contrast. Simple left renal cyst. No concerning reading on final report-cysts were noted as stable. I reviewed the imaging 03/2019: renal US pending Impression/Plan: Renal cyst-simple No further follow up ? History of ureteral stone No stones noted on imaging today per discussion with radiology. She has had a stent with Dr. Langford but no stone was found, she did not feel she passed a stone. Hydration with water, no further therapies. History of UTI No sx today. Will send repeat culture today. She will continue estrace per her veneer jointer operator She will call with sx when she has an infection Grade I cystocele and she empties well She has no bothersome symptoms. We will monitor NELSON This is not bothersome, she will call with issues. She will do PT. epf prn, all questions answered to her apparent satisfaction. Rosemary Ceron APRN documented in this encounter Miscellaneous Notes * Addendum Note - Afua Tavares RN - 04/17/2019 2:00 PM EDTAddended by: AFUA TAVARES on: 04/17/2019 03:23 PM Modules accepted: Orders documented in this encounter Plan of Treatment Scheduled Procedures Name Priority Associated Diagnoses Date/Ti me COLONOSCOPY, DIAGNOSTIC (WRV U 3.26) Encounter for colorectal cancer screening documented as of this encounter Procedures Procedure Name Priority Date/Time Associated Diagnosis Comments URINE CULTURE Routine 04/17/2019 5:44 PM EDT Lower urinary tract symptoms (LUTS) documented in this encounter Results * Urine culture Clean Catch Urine (04/17/2019 5:44 PM EDT) Urine Culture No growth (Less than 1,000 cfu/ml). [facility] Urine specimen obtained by clean catch procedure (specimen) 04/17/2019 5:44 PM EDT 04/17/2019 5:44 PM EDT Narrative Resulting Agency Comment Spec In Lab Rosemary Ceron APRN MICROBIOLOGY - GENERAL ORDERABLES [facility] [place] [address] documented in this encounter Visit Diagnoses Diagnosis Pelvic floor dysfunction Pelvic muscle wasting Mixed stress and urge urinary incontinence Mixed incontinence urge and stress (male)(female) Lower urinary tract symptoms (LUTS) Other symptoms involving urinary system History of nephrolithiasis Personal history of urinary calculi Renal cyst, acquired Acquired cyst of kidney Cystocele, midline documented in this encounter Care Teams Environmental Services Manager Relationship Specialty Start Date End Date April Cummins APRN [address] [place] [address] PCP - General Internal Medicine 11/06/18 11/19/19 documented as of this encounter
--- OUTSIDE RECORDS SUMMARY | 2024-06-27 15:16 | XMS_ITS | Encounter Summary ---
[place] [address] Care Team Providers Care Video Recorder Mechanic Name Role Phone Placido April Tanvir HENLEY Primary Care Provider [phone] Reason for Referral * Diagnostic Test (Routine) - Closed Specialty Diagnoses / Procedures Referred By Contac t Referred To Contact Radiology Diagnoses Upper abdominal pain Bloating Procedures CT Abdomen & Pelvis w Contrast Beth Guerra APRN [address] [place] [address] [facility] [place] [address] Referral ID Status Reason Start Date Expiration Date V isits Requested Visits Authorized [id number] Closed Specialty Service Requested 01/31/2018 05/01/2018 1 1 Reason for Visit * Diagnostic Test (Routine) - Closed Specialty Diagnoses / Procedures Referred By Contac t Referred To Contact Radiology Diagnoses Upper abdominal pain Bloating Procedures CT Abdomen & Pelvis w Contrast Beth Guerra APRN [address] [place] [address] [facility] [place] [address] Referral ID Status Reason Start Date Expiration Date V isits Requested Visits Authorized [id number] Closed Specialty Service Requested 01/31/2018 05/01/2018 1 1 Encounter Details Date Type Department Care Team (Latest Contact Info) Description 02/08/2018 9:51 AM EDT - 02/08/2018 11:59 PM EDT Hospital Encounter CT Scan [place] [address] Beth Guerra, MOVIE STAR [address] [facility] [place] [address] Upper abdominal pain; Bloating Discharge Disposition: Home Social History Tobacco Use Types Packs/Day Years Used Date Smoking Tobacco: Never Smokeless Tobacco: Never Alcohol Use Standard Drinks/Week Comments No 0 [...] FIND Take 1 tablet by mouth daily. [facility]VI 12/04/2018 HYDROcodone-ibuprofen (VICOPROFEN) 7.5-200 mg TabletIndications:Chroni c right shoulder pain Take 1 tablet by mouth every 8 hours as needed for Pain. 20 tablet 05/11/2016 04/17/2019 documented as of this encounter Plan of Treatment Scheduled Procedures Name Priority Associated Diagnoses Date/Ti me COLONOSCOPY, DIAGNOSTIC (WRV U 3.26) Encounter for colorectal cancer screening documented as of this encounter Procedures Procedure Name Priority Date/Time Associated Diagnosis Comments CT ABDOMEN AND PELVIS W CONTRAST Routine 02/08/2018 11:19 AM EDT Upper abdominal pain Bloating documented in this encounter Results * CT Abdomen & Pelvis w Contrast (02/08/2018 11:19 AM EDT) Anatomical Region Laterality Modality Abdomen, Pelvis Computed Tomogra phy Impressions 02/08/2018 12:54 PM EDT 1. Multiple hepatic hypodensities. The larger lesions are likely cysts. Smaller 1's are too small to characterize but stable from the prior examination. 2. Small bilateral pleural effusions. 3. Trace of pericardial effusion, thickening. 4. Additional and ancillary findings are not acute and described in the body of report. Narrative 02/08/2018 12:54 PM EDT EXAMINATION: ??CT ABDOMEN AND PELVIS W CONTRAST CLINICAL HISTORY: ???ileus. ???SBO. ??Please see KUB. TECHNIQUE: Helical CT of the abdomen and pelvis was performed following the intravenous administration of contrast. 67 cc of Omnipaque 350 was given. Oral contrast was administered. COMPARISON: ??Radiograph from 01/23/[address] from 06/15/2017. FINDINGS: Lower chest: Trace of bilateral pleural effusions. Otherwise, lung bases are clear. Trace of pericardial effusion, thickening. Liver: Multiple hepatic hypodensities. The larger ones are likely cysts. The smaller ones are too small to characterize. The larger hypodense lesions are unchanged compared to prior examination. Bile ducts: Nondilated. Gallbladder: No calcified gallstones. Normal caliber wall. Pancreas: Normal attenuation without ductal dilatation. Spleen: Normal. Adrenals: Normal. Kidneys: Stable left renal cysts. The right kidney is unremarkable. No nephrolithiasis and no [place] on either side. Vasculature: No aneurysm. Lymph Nodes: No enlarged lymph nodes. Bowel: Nondilated, no wall thickening. ?? Peritoneum and mesentery: No ascites, free air, or loculated fluid collection. No mesenteric inflammation. Abdominal wall: Normal. Urinary Bladder: Normal. Reproductive organs: Normal. Osseous structures: No suspicious lesions. Procedure Note Analy Powers MD - 02/08/2018 EXAMINATION: CT ABDOMEN AND PELVIS W CONTRAST CLINICAL HISTORY: ?ileus. ?SBO. Please see KUB. TECHNIQUE: Helical CT of the abdomen and pelvis was performed followingthe intravenous administration of contrast. 67 cc of Omnipaque 350 was given.Oral contrast was administered. COMPARISON: Radiograph from 01/23/[address] from 06/15/2017. FINDINGS: Lower chest: Trace of bilateral pleural effusions. Otherwise, lung basesare clear. Trace of pericardial effusion, thickening. Liver: Multiple hepatic hypodensities. The larger ones are likely cysts.The smaller ones are too small to characterize. The larger hypodense lesionsare unchanged compared to prior examination. Bile ducts: Nondilated. Gallbladder: No calcified gallstones. Normal caliber wall. Pancreas: Normal attenuation without ductal dilatation. Spleen: Normal. Adrenals: Normal. Kidneys: Stable left renal cysts. The right kidney is unremarkable. No nephrolithiasis and no Towanda on either side. Vasculature: No aneurysm. Lymph Nodes: No enlarged lymph nodes. Bowel: Nondilated, no wall thickening. Peritoneum and mesentery: No ascites, free air, or loculated fluidcollection. No mesenteric inflammation. Abdominal wall: Normal. Urinary Bladder: Normal. Reproductive organs: Normal. Osseous structures: No suspicious lesions. IMPRESSION 1. Multiple hepatic hypodensities. The larger lesions are likely cysts.Smaller 1's are too small to characterize but stable from the prior examination. 2. Small bilateral pleural effusions. 3. Trace of pericardial effusion, thickening. 4. Additional and ancillary findings are not acute and described in thebody of report. Electronically signed by: SHANE ALEXANDER Radiology, at02/08/2018 12:54 PM Beth Guerra APRN IMG CT ORDERABLE S documented in this encounter Visit Diagnoses Diagnosis Upper abdominal pain Abdominal pain, other specified site Bloating Flatulence, eructation, and gas pain documented in this encounter Administered Medications Inactive Administered Medications - up to 3 most recent administrations Medication Order MAR Action Action Date Dose Rate Site iohexol (OMNIPAQUE) 350 mg/mL solution 0-200 mL 0-200 mL, Intravenous, ONCE PRN, 1 dose, Starting on Sun02/08/18 at 1104, Until Sun02/08/18 at 1105, Per Protocol, Warning Vesicant/Irritant Medication , Radiology Contrast, Routine Given 02/08/2018 11:05 AM EDT 66 mLs iohexol (OMNIPAQUE) 350 mg/mL solution 50 mL 50 mL, Oral, ONCE PRN, 1 dose, Starting on Sun02/08/18 at 1104, Until Sun02/08/18 at 0900, Per Protocol, Warning Vesicant/Irritant Medication , Routine Given 02/08/2018 9:00 AM EDT 50 mLs documented in this encounter Care Teams Video Recorder Mechanic Relationship Specialty Start Date End Date April Cummins APRN [address] [place] [address] PCP - General Internal Medicine 09/28/17 02/27/18 documented as of this encounter
--- OUTSIDE RECORDS SUMMARY | 2024-06-27 15:16 | XMS_ITS | Encounter Summary ---
Author Organization [facility] [place] [address] Care Team Providers Care Educational Specialist Name Role Phone April Cummins KALE Primary Care Provider [phone] Encounter Details Date Type Department Care Team (Latest Contact Info) Description 04/17/2019 12:54 PM EDT - 04/17/2019 11:59 PM EDT Hospital Encounter [place] [address] Rosemary Ray APRN [facility] [place] [address] History of nephrolithiasis; Renal cyst, acquired Discharge Disposition: Home Social History Tobacco Use [...] Start Date End Date b complex vitamins Capsule Take 1 capsule by mouth daily. With folic acid B-1,2,3,5,12 Biotin acetylcysteine (NAC ORAL) Take by mouth daily. Cllvmkby2-Aapflw1-Kpij p therm. (VISBIOME) 112.5 billion cell CapsuleIndications:Sma ll intestinal bacterial overgrowth,Irritable bowel syndrome with diarrhea Take 3 capsules by mouth daily. 90 capsule 3 03/17/2019 04/29/2019 Ciclesonide (OMNARIS) 50 mcg [place], Non-Aerosol 2 sprays each nostril BID 12.5 g 02/07/2019 09/01/2019 lactobacillus rhamnosus, GG, (CULTURELLE) 10 billion cell Capsule Take 1 capsule by mouth daily. 01/09/2020 GLUTATHIONE ORAL Take by mouth daily. 09/2022 IODINE ORAL Take 2.5 mg by mouth daily. 04/05/2022 documented as of this encounter Plan of Treatment Scheduled Procedures Name Priority Associated Diagnoses Date/Ti me COLONOSCOPY, DIAGNOSTIC (WRV U 3.26) Encounter for colorectal cancer screening documented as of this encounter Procedures Procedure Name Priority Date/Time Associated Diagnosis Comments US RETROPERITONEAL COMPLETE Routine 04/17/2019 1:24 PM EDT History of nephrolithiasis Renal cyst, acquired documented in this encounter Results * US Retroperitoneal Complete (04/17/2019 1:24 PM EDT) Anatomical Region Laterality Modality Abdomen Ultrasound 04/17/2019 1:20 PM EDT Impressions 04/17/2019 3:26 PM EDT 1. ??Simple 0.9 cm renal cyst within the inferior pole of the left kidney is unchanged as compared with CT abdomen pelvis dated 02/08/2018. No additional follow-up is recommended. 2. ??During initial scanning there was thought to be an additional 3.4 cm cyst identified in the superior pole the left kidney, which upon further evaluation is consistent with a normal renal calyx. 3. ??No hydronephrosis or nephrocalcinosis. Normal size and echotexture of the kidneys. 4. ??A 1.9 cm uterine fibroid impresses upon the posteroinferior bladder, which is otherwise normal. Findings were communicated to ordering provider Dr. Rosemary Garcia by Dr. Kike Pace at 2:50pm. I have personally reviewed the image(s) and the residents interpretation and agree with the findings, Adela Sylvester at 04/17/2019 3:17 PM Thank you for letting us participate in the care of this patient. For questions regarding this report, please contact the number below. ? Adela Sylvester, Staff Physician Electronically Signed Final Report ?? 04/17/2019 03:25 pm Narrative 04/17/2019 3:26 PM EDT Renal ?(Signed Final 04/17/2019 03:25 pm) PATIENT INFO: ID #: ? [id number] ?: ??[birth year] (58 yrs) Name: ? KALYN DANIELS CASE ?Visit Date: 04/17/2019 01:20 pm PERFORMED BY: Performed By: ? Bonnie Leyva RDMS Attending: ?Higinio GARNER, Adela Ko Resident: ? Kike Pace MD Referred By: ?ROSEMARY HARVEY Location: ? [place] SERVICE(S) PROVIDED: ??URETRO - Retroperitoneal Complete - [id number] ? [id number] INDICATIONS: ??hx nephrolithiasis and renal cyst-? changes COMPARISON: Ultrasound: 02/07/19, CT: 02/08/18 RIGHT KIDNEY: Size (cm) ?L: ??10.6 Cortical Thickness: ?Normal Cortical Echogenicity: ?? Normal Hydronephrosis: ?No sonographic evidence Comment: ?No renal calculi seen. LEFT KIDNEY: Size (cm) ?L: ??9.6 Cortical Thickness: ?Normal Cortical Echogenicity: ?? Normal Hydronephrosis: ?No sonographic evidence Comment: ?Simple cyst visualized in the upper pole measuring ? 2.5 x 2.1 x 3.4 cm. No renal No renal calculi seen. URINARY BLADDER: Pre-void (cm) ? L: ??11.3 ?AP: ??7.8 ? TV: ??10.3 Vol (ml): ?475.3 Comment: ?Partially distended, normal contour ADDITIONAL FINDINGS: Incidental finding of an anterior fibroid of the uterus measuirng 1.8 x 1.9 x 1.9. Procedure Note Adela Sylvester MD - 04/17/2019 Renal (Signed Final 04/17/2019 03:25 pm) PATIENT INFO: ID #: [id number] : [birth year] (58 yrs) Name: KALYN DANIELS CASE Visit Date: 04/17/2019 01:20 pm PERFORMED BY: Performed By: Bonnie Leyva RDMS Attending: Adela Sylvester MD Resident: Kike Pace MD Referred By: ROSEMARY HARVEY Location: [place] SERVICE(S) PROVIDED: URETRO - Retroperitoneal Complete - [id number] INDICATIONS: hx nephrolithiasis and renal cyst-? changes COMPARISON: Ultrasound: 02/07/19, CT: 02/08/18 RIGHT KIDNEY: Size (cm) L: 10.6 Cortical Thickness: Normal Cortical Echogenicity: Normal Hydronephrosis: No sonographic evidence Comment: No renal calculi seen. LEFT KIDNEY: Size (cm) L: 9.6 Cortical Thickness: Normal Cortical Echogenicity: Normal Hydronephrosis: No sonographic evidence Comment: Simple cyst visualized in the upper pole measuring 2.5 x 2.1 x 3.4 cm. No renal No renal calculi seen. URINARY BLADDER: Pre-void (cm) L: 11.3 AP: 7.8 TV: 10.3 Vol (ml): 475.3 Comment: Partially distended, normal contour ADDITIONAL FINDINGS: Incidental finding of an anterior fibroid of the uterus measuirng 1.8 x 1.9 x 1.9. IMPRESSION 1. Simple 0.9 cm renal cyst within the inferior pole of the left kidney is unchanged as compared with CT abdomen pelvis dated 02/08/2018. No additional follow-up is recommended. 2. During initial scanning there was thought to be an additional 3.4 cm cyst identified in the superior pole the left kidney, which upon further evaluation is consistent with a normal renal calyx. 3. No hydronephrosis or nephrocalcinosis. Normal size and echotexture of the kidneys. 4. A 1.9 cm uterine fibroid impresses upon the posteroinferior bladder, which is otherwise normal. Findings were communicated to ordering provider Dr. Rosemary Garcia by Dr. Kike Pace at 2:50pm. I have personally reviewed the image(s) and the residents interpretation and agree with the findings, Adela Sylvester at 04/17/2019 3:17 PM Thank you for letting us participate in the care of this patient. For questions regarding this report, please contact the number below. Adela Sylvester, Staff Physician Electronically Signed Final Report 04/17/2019 03:25 pm Rosemary Harvey APRN IMG US GEN SWAPNA SOLIS documented in this encounter Visit Diagnoses Diagnosis History of nephrolithiasis Personal history of urinary calculi Renal cyst, acquired Acquired cyst of kidney documented in this encounter Care Teams Educational Specialist Relationship Specialty Start Date End Date April Cummins APRN [address] [place] [address] PCP - General Internal Medicine 11/06/18 11/19/19 documented as of this encounter
--- OUTSIDE RECORDS SUMMARY | 2024-06-27 15:16 | XMS_ITS | Encounter Summary ---
Author Organization [facility] [place] [address] Care Team Providers Care Social Media Community Manager Name Role Phone April Cummins KALE Primary Care Provider [phone] Reason for Visit * Reason Onset Date Comments Medication Refill 02/07/2019 Encounter Details Date Type Department Care Team (Late st Contact Info) Description 02/07/2019 [place] [address] Shavonne Brink MD [facility] [address] [address] Social History Tobacco Use Types Packs/Day Years [...] encounter Miscellaneous Notes * Telephone Encounter - Lily Crawley LPN - 02/07/2019 10:36 AM EDT Per [place] Medicaid, patient must try and fail 2 of the following: -Flonase -Omnaris -Zetonna -Nasonex -Nasacort, etc... Also must have documented treatment failure to loratadine (OTC) OR cetirizine (OTC) AND a preferrednasal corticosteroid used in conjunction. New prescription pended to Dr. Brink, in place of the Azelastine 0.1% spray. documented in this encounter Plan of Treatment Scheduled Procedures Name Priority Associated Diagnoses Date/Ti me COLONOSCOPY, DIAGNOSTIC (WRV U 3.26) Encounter for colorectal cancer screening documented as of this encounter Visit Diagnoses Not on filedocumented in this encounter Care Teams Social Media Community Manager Relationship Specialty Start Date End Date April Cummins, CONTOUR GRINDER [address] [place] [address] PCP - General Internal Medicine 11/06/18 11/19/19 documented as of this encounter
--- OUTSIDE RECORDS SUMMARY | 2024-06-27 15:16 | XMS_ITS | Encounter Summary ---
[place] [address] Care Team Providers Care Teletype Or Varitype Keyboard Operator Name Role Phone April Cummins APRN Primary Care Provider [phone] Reason for Visit * Consultation (Routine) - Closed Specialty Diagnoses / Procedures Referred By Rafael mart Referred To Contact Urology Diagnoses INCREASED URINARY FREQUENCE AND URGENCY, UA AND PSA NEGATIVE, NO RESPONSE TO DITROPAN April Cummins APRN [address] [place] [address] [facility] [place] [address] Referral ID Status Reason Start Date Expiration Date V isits Requested Visits Authorized [id number] Closed Consult, Test & Treat Connection Center 09/25/2018 09/25/2019 1 1 Encounter Details Date Type Department Care Team (Late st Contact Info) Description 12/04/2018 9:00 AM EST [place] [address] Clay Ray APRN [facility] [place] [address] Lower urinary tract symptoms (LUTS); History of nephrolithiasis; Renal cyst, acquired; NELSON (stress urinary incontinence, female); Cystocele, midline Social History Tobacco Use Types [...] documented in this encounter Progress Notes * Clay Ray APRN - 12/04/2018 9:00 AM [...] with a history of irritative voiding symptoms/urgency/frequency andurge incontinence. She was seen in 08/2018 by [facility] where her urine culture and UA were negative. Her incontinence had resolved. She was noted to have a renal cyst, which was not particularly c oncerning, renal US was recommended in 2018. Per PCP notes, pt has failed ditropan. Urine culture: 11/08/2018: contaminated She states that she felt she had a UTI when she first seen by Dr. Langford. The stone was not caught, she did not see it pass. Stent was placed. She thought she had a UTI at that time. She states that she did have a diagnosed renal stone. She did not tolerate the stent well. She states she did also get another UTI episode with left flank pain. No imaging since her symptomsstarted. She also has Danny's going on. Two [...] prolapse with labial swelling. She has a timber watchman that istreating her with vaginal estradiol. Fells she has [...] List Diagnosis Code ??? Left ulnar fracture S52.A ??? DJD (degenerative joint disease) of cervical [...] hematuria etc). We can consider amitriptyline, neurontin, elmiron,instillations, motrin/piroxicam, atarax. Stress moderation, meditation and self [...] symptoms are worsening, she will see her CHASER HELPER for swab/management. Estrparamjit per her timber watchman All of her questions were answered to her apparent satisfaction. epf in 03/2019 with me with renal US. Clay Harvey APRN documented in this encounter Plan of Treatment Scheduled Procedures Name Priority Associated Diagnoses Date/Ti me COLONOSCOPY, DIAGNOSTIC (WRV U 3.26) Encounter for colorectal cancer screening documented as of this encounter Procedures Procedure Name Priority Date/Time Associated Diagnosis Comments _URINALYSIS WITH MICROSCOPIC Routine 12/04/2018 9:54 AM EST Lower urinary tract symptoms (LUTS) URINE CULTURE Routine 12/04/2018 9:54 AM EST Lower urinary tract symptoms (LUTS) documented in this encounter Results * US [...] contact the number below. Electronically signed by: Adela Sylvester [facility] ([phone]), at 04/17/2019 3:17 PM ? Adela Sylvester, Staff Physician Electronically Signed Final Report ?? 04/17/2019 03:25 pm Narrative 04/17/2019 3:26 PM EDT Renal ?(Signed Final 04/17/2019 03:25 pm) PATIENT INFO: ID #: ? [id number] ?: ??[birth year] (58 yrs) Name: ? XAVIER DANIELS CASE ?Visit Date: 04/17/2019 01:20 pm PERFORMED BY: Performed By: ? Bonnie Leyva RDMS Attending: ?Higinio GARNER, Adela Ko Resident: ? Sanjeev GARNER, Kike Betancourt Referred By: ?CLAY HARVEY Location: ? [place] SERVICE(S) PROVIDED: ??URETRO - Retroperitoneal Complete - [id number] ? [id number] INDICATIONS: ??hx nephrolithiasis and renal cyst-? changes [...] 04/17/2019 03:25 pm) PATIENT INFO: ID #: [id number] : [birth year] (58 yrs) Name: XAVIER DANIELS CASE Visit Date: 04/17/2019 01:20 pm PERFORMED BY: Performed By: Bonnie Leyva RDMS Attending: Adela Sylvester MD Resident: Kike Pace MD Referred By: CLAY HARVEY Location: [place] SERVICE(S) PROVIDED: URETRO - Retroperitoneal Complete - [id number] INDICATIONS: hx nephrolithiasis and renal cyst-? changes [...] contact the number below. Electronically signed by: Adela Sylvester [facility] ([phone]), at 04/17/2019 3:17 PM Adela Sylvester, Staff Physician Electronically Signed Final Report 04/17/2019 03:25 pm Clay Harvey APRN IMG US GEN ORDE RABLES * (ABNORMAL) Urine culture Clean Catch Urine (12/04/2018 9:54 AM EST) Urine Culture 10,000-49,000 cfu/ml Streptococcus viridans group(A) [facility] Organism Streptococcus viridans group(A) [facility] Urine specimen obtained by clean catch procedure (specimen) 12/04/2018 9:54 AM EST 12/04/2018 11:51 AM EST Narrative Resulting Agency Comment Spec In Lab Clay Harvey APRN MICROBIOLOGY - GENERAL ORDERABLES [facility] [place] [place] [address] * (ABNORMAL) _Urinalysis with microscopic (12/04/2018 9:54 AM EST) Glucose UA Negative Negative mg/dL [facility] Protein UA Negative Negative mg/dL [facility] Bilirubin UA Negative Negative mg/dL [facility] Comment: Clinical correlation required for positive Urine Bilirubin results as false positive may occur with some drugs and drug related products. If a false positive is suspected a serum total bilirubin should be considered if clinically indicated. Urobilinogen UA Normal Normal mg/dL [facility] pH UA 6.0 5.0 - 8.0 [facility] Blood UA Negative Negative mg/dL [facility] Ketones UA Negative Negative mg/dL [facility] Nitrite UA Negative Negative [facility] Leukocytes UA Negative Negative mcL [facility] Appearance UA Clear Clear [facility] Spec Perryman UA 1.010 1.002 - 1.030 [facility] Color UA Yellow Yellow [facility] RBC UA 1 0 - 4 /HPF [facility] WBC UA 2 0 - 5 /HPF [facility] Bacteria UA Rare(A) None /HPF [facility] Squam Epith UA 2 <=4 /HPF [facility] Urine specimen (specimen) 12/04/2018 9:54 AM EST 12/04/2018 10:58 AM EST Narrative Resulting Agency Comment Spec In Lab Clay Camillusparvin Harvey APRN URINE ORDERABLE S [facility] [place] [address] documented in this encounter Visit Diagnoses Diagnosis Lower urinary tract symptoms (LUTS) Other symptoms involving urinary system History of nephrolithiasis Personal history of urinary calculi Renal cyst, acquired Acquired cyst of kidney NELSON (stress urinary incontinence, female) Female stress incontinence Cystocele, midline History of nephrolithiasis Personal history of urinary calculi Renal cyst, acquired Acquired cyst of kidney documented in this encounter Care Teams Teletype Or Varitype Keyboard Operator Relationship Specialty Start Date End Date April Cummins APRN [address] [place] [address] PCP - General Internal Medicine 11/06/18 11/19/19 documented as of this encounter
--- OUTSIDE RECORDS SUMMARY | 2024-06-27 15:16 | XMS_ITS | Encounter Summary ---
[place] [address] Care Team Providers Care Route Rider Name Role Phone Rosita Cumminsyce Tanvir HENLEY Primary Care Provider [phone] Encounter Details Date Type Department Care Team (Late st Contact Info) Description 01/06/2020 3:20 PM EST Ancillary Procedure [place] [address] Social History Tobacco Use Types Packs/Day Years [...] Diagnosis Comments FILM LIBRARY STORAGE ONLY DX CHEST STAT 01/06/2020 3:17 PM EST documented in this encounter Results * Film Library- Storage Only DX Chest (01/06/2020 3:17 PM EST) Narrative [facility] - 01/06/2020 3:17 PM EST This exam is auto-finalizing. It's purpose is for storage only. Adriana Nicholas MD IM FILM LIBRARY ORD ERABLES [place], [place] documented in this encounter Visit Diagnoses Not on filedocumented in this encounter Care Teams Route Rider Relationship Specialty Start Date End Date April Cummins APRN [address] [facility] [place] [address] PCP - General Internal Medicine 01/06/20 05/20/20 documented as of this encounter
--- OUTSIDE RECORDS SUMMARY | 2024-06-27 15:16 | XMS_ITS | Encounter Summary ---
[place] [address] Care Team Providers Care Dewatering Filtering Supervisor Name Role Phone April Cummins APRN Primary Care Provider [phone] Reason for Visit * Reason Onset Date Comments Medication Refill 06/09/2019 Encounter Details Date Type Department Care Team (Late st Contact Info) Description 06/09/2019 [place]ill [place] [address] Beth Guerra APRN [address] [place] [address] Small intestinal bacterial overgrowth; Irritable bowel syndrome with diarrhea Social History Tobacco Use Types Packs/Day Years [...] syndrome documented in this encounter Care Teams Dewatering Filtering Supervisor Relationship Specialty Start Date End Date April Cummins APRN [address] [place] [address] PCP - General Internal Medicine 01/13/21 documented as of this encounter
--- OUTSIDE RECORDS SUMMARY | 2024-06-27 15:16 | XMS_ITS | Encounter Summary ---
Author Organization [facility] [place] [address] Care Team Providers Care Reclamation Engineer Name Role Phone April Cummins KALE Primary Care Provider [phone] Encounter Details Date Type Department Care Team (Late st Contact Info) Description 03/17/2019 9:30 AM EDT Office [place] [address] Branid Reyes MD [facility] [place] [address] Small intestinal bacterial overgrowth; Irritable bowel syndrome with diarrhea; Angioedema, subsequent encounter Social History Tobacco Use Types [...] EDT documented in this encounter Patient Instructions * Patient Instructions* Brandi Reyes MD - 03/17/2019 9:30 AM EDT ?? Check blood tests for angioedema ?? Repeat rifaximin 550mg TID x 14 days ?? Visbiome: 3 capsules per day (112.5 billion CFUs per cap) ?? Make sure you have benadryl and an epi pen on you. Keep track. Consider allergy testing for certain foods (this would be done by an silver service waiter) Follow-up with Beth when she returns. documented in this encounter Progress Notes * Brandi Reyes MD - 03/17/2019 9:30 AM EDT [facility] Section of Gastroenterology and Hepatology Follow-Up Visit PCP: April Cummins, KALE HPI This is a 58 yo F with suspected IBS and suspected pelvic floor dysfunction who presents for follow-up of gas/bloating, diarrhea and urgency. Pt is followed by my colleague Beth Guerra. I am seeing her in her absence - this is our firstmeeting. Concerned about recurrent SIBO. VSL# 3 was helpful but having trouble getting this. Main symptoms are explosive diarrhea (non-bloody), gas (smelly) and distention. Increased a probiotic dose and noticed a significant improvement, stools more formed. Rifaximin helped previously. Incident in December - Was in the [employer] and had a reaction (drank a drink with cayenne and banana) -couldn't hear, felt dizzy, neck swelling & redness, closed down the throat. Spread to her face.Couldn't breath through her nose but did not have wheezing. Saw an silver service waiter and for rash, neck swelling, mild itching. Recommended she see a credit collections manager. Had skin testing - grass, cockroaches but u nable to do food allergy testing. Seems like stuffiness and facial swelling comes after bowel habit changes. Benadryl seems to help. ROS: Constitutional: weight stable PMHx ?? Gangrenous appendicitis at age 16, which is when IBS sx began ?? 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 . Has one son- . Denies tobacco use. Denies alcohol use. Denies using other substances. ?? FAMILY HISTORY Denies family history of celiac disease, esophageal cancer, stomach cancer, colon cancer, pancreatic or liver issues, and IBD. TESTING ?? TTG IgA neg ?? Colonoscopy in April 2017 (tubular adenoma) TRIALS ?? Low FODMAP diet ?? GAPs diet ?? Peppermint ?? Limit fiber ?? Senna/smooth move ?? Rifaximin - helped but short lived ?? Pelvic floor PT ?? Milk - GI cramping ?? Wheat - cramping Current Outpatient Medications: ??? Ciclesonide (OMNARIS) 50 mcg [place], Non-Aerosol, 2 sprays each nostril BID, Disp: [...] file Gets together: Not on file Attends episcopalian service: Not on file Active member of [...] that are directed at her gut microbiome (rifaximin,probiotics). We discussed that SIBO is very common in IBS- D and that gut microbiome changes are part of the pathogenesis of IBS. Her reaction in the grocery store seems like an allergic reaction (facial swelling, throat closing, not clear to me that she had hives) and I think further follow- up withallergy is indicated. I also suggested we check [...] foods (this would be done by an silver service waiter) based on suspicion for allergic reaction Follow-up with Beth when she returns. The risks, benefits and alternatives were discussed with the patient who understands and agrees with above. Total visit time: 25 minutes Counseling time: Greater than 15 minutes of this 25 minute face to face visit were spent in direct counseling and coordination of care for the above issues. Brandi Reyes MD 03/17/[address] Workerfood science professor Section of Gastroenterology and Hepatology [email or web address] (p) documented in this encounter Plan of Treatment Scheduled Procedures Name Priority Associated Diagnoses Date/Ti me COLONOSCOPY, DIAGNOSTIC (WRV U 3.26) Encounter for colorectal cancer screening documented as of this encounter Procedures Procedure Name Priority Date/Time Associated Diagnosis Comments C1Q COMPLEMENT Routine 03/17/2019 11:02 AM EDT C1 ESTERASE INHIBITOR ANTIGEN Routine 03/17/2019 11:02 AM EDT Angioedema, subsequent encounter C1 ESTERASE INHIBITOR, FUNCTIONAL Routine 03/17/2019 11:02 AM EDT Angioedema, subsequent encounter C3 COMPLEMENT Routine 03/17/2019 11:02 AM EDT Angioedema, subsequent encounter C4 COMPLEMENT Routine 03/17/2019 11:02 AM EDT Angioedema, subsequent encounter documented in this encounter Results * C1q Complement (03/17/2019 11:02 AM EDT) Complement C1q 20 12 - 22 mg/dL [facility] Comment: ADDITIONAL INFORMATION This test was developed and its performance characteristics determined by [facility] in a manner consistent with CLIA requirements. This test has not been cleared or approved by the U.S. Food and Drug Administration. Test Performed by: [facility] - [place] [id number] [place] [address] Blood specimen (specimen) Venous Draw / Unknown 03/17/2019 11:02 AM EDT 03/19/2019 12:09 PM EDT Narrative Resulting Agency Comment Spec In Lab Brandi Reyes MD CHEMISTRY ORDERABLES [facility] [place] [address] * C1 Esterase Inhibitor, Functional (03/17/2019 11:02 AM EDT) C1 Omayra Inh Qnt >90 % normal [facility] Comment: REFERENCE VALUE >67 (Normal) 41-67 (Equivocal) <41 (Abnormal) Test Performed by: [place] [address] Blood specimen (specimen) 03/17/2019 11:02 AM EDT 03/17/2019 12:49 PM EDT Narrative Resulting Agency Comment Spec In Lab Brandi Reyes MD CHEMISTRY ORDERABLES Performing Organization Address [facility] Co de Phone Number [facility] [place] [address] * C1 Esterase Inhibitor Antigen (03/17/2019 11:02 AM EDT) C1 Omayra Inh Ag 30 19 - 37 mg/dL [facility] Comment: Test Performed by: [place] [address] Blood specimen (specimen) 03/17/2019 11:02 AM EDT 03/17/2019 12:49 PM EDT Narrative Resulting Agency Comment Spec In Lab Brandi Reyes MD CHEMISTRY ORDERABLES Performing Organization Address City/[facility]/ZIP Co de Phone Number [facility] [place] [address] * C4 Complement (03/17/2019 11:02 AM EDT) C4 Complement 19 10 - 40 mg/dL [facility] Blood specimen (specimen) 03/17/2019 11:02 AM EDT 03/17/2019 11:09 AM EDT Narrative Resulting Agency Comment Spec In Lab Brandi Reyes MD CHEMISTRY ORDERABLES [facility] [place] [address] * (ABNORMAL) C3 Complement (03/17/2019 11:02 AM EDT) C3 Complement 89(L) 90 - 180 mg/dL [facility] Blood specimen (specimen) 03/17/2019 11:02 AM EDT 03/17/2019 11:09 AM EDT Narrative Resulting Agency Comment Spec In Lab Brandi Reyes MD CHEMISTRY ORDERABLES [facility] [place] [address] documented in this encounter Visit Diagnoses Diagnosis Small intestinal bacterial overgrowth Irritable bowel syndrome with diarrhea Irritable bowel syndrome Angioedema, subsequent encounter documented in this encounter Care Teams Reclamation Engineer Relationship Specialty Start Date End Date April Cummins, DIRECTOR LAW ENFORCEMENT [address] [facility] [place] [address] PCP - General Internal Medicine 11/06/18 11/19/19 documented as of this encounter
--- OUTSIDE RECORDS SUMMARY | 2024-06-27 15:16 | XMS_ITS | Encounter Summary ---
Author Organization [facility] [place] [address] Care Team Providers Care Tableau Administrator Name Role Phone Rosita Cumminsyce Tanvir HENLEY Primary Care Provider [phone] Reason for Referral * Physical Therapy (Routine) - Closed Specialty Diagnoses / Procedures Referred By Rafael mart Referred To Contact Diagnoses Constipation, unspecified constipation type Pelvic floor dysfunction Beth Guerra APRN [address] [place] [place] [address] Unknown None Referral ID Status Reason Start Date Expiration Date V isits Requested Visits Authorized [id number] Closed Evaluate and Treat 02/07/2018 08/06/2018 12 12 Encounter Details Date Type Department Care Team (Late st Contact Info) Description 02/07/2018 Orders [place] [address] Beth Guerra APRN [address] [place] [address] Constipation, unspecified constipation type; Pelvic floor dysfunction Social History Tobacco Use Types Packs/Day Years [...] Referral to Physical Therapy Outpatient Referral Routine Constipation, unspecified constipation type Pelvic floor dysfunction Ordered: 02/07/2018 documented as of this encounter Visit Diagnoses Diagnosis Constipation, unspecified constipation type Pelvic floor dysfunction Pelvic muscle wasting documented in this encounter Care Teams Tableau Administrator Relationship Specialty Start Date End Date April Cummins, NUT THREADER [address] [place] [address] PCP - General Internal Medicine 09/28/17 02/27/18 documented as of this encounter
--- OUTSIDE RECORDS SUMMARY | 2024-06-27 15:16 | XMS_ITS | Encounter Summary ---
[place] [address] Care Team Providers Care Sales Department Supervisor Name Role Phone April Cummins KALE Primary Care Provider [phone] Encounter Details Date Type Department Care Team (Late st Contact Info) Description 12/06/2018 [place] [address] Juan Mercado RN Social History Tobacco Use Types Packs/Day [...] encounter Miscellaneous Notes * Telephone Encounter - Juan Mercado RN - 12/06/2018 9:51 AM EST Verified patient name and date of Spoke with the pt who says that she is having mild frequency, urgency and burning with urination. Told her that Rosemary would like her to take Keflex 500 mg PO TID x 7 days. She agreed. Script sent to requested pharmacy. * Telephone Encounter - Juan Mercado RN - 12/06/2018 9:51 AM EST ----- Message from Rosemary Ceron APRN sent at 12/06/2018 8:52 AM EST ----- Regarding: please offer treatment Hi Gordon~ I sent a note to [employer] thinking [...] filedocumented in this encounter Care Teams Sales Department Supervisor Relationship Specialty Start Date End Date April Cummins APRN [address] [place] [address] PCP - General Internal Medicine 11/06/18 11/19/19 documented as of this encounter
--- OUTSIDE RECORDS SUMMARY | 2024-06-27 15:16 | XMS_ITS | Encounter Summary ---
Author Organization [facility] [place] [address] Care Team Providers Care Ship Construction Teacher Name Role Phone April Cummins KALE Primary Care Provider [phone] Encounter Details Date Type Department Care Team (Late st Contact Info) Description 11/05/2019 Telephone Dermatology at [facility] [address] [place] [address] Edmond Howell MD [facility] DR [address] [facility] [address] Social History Tobacco Use Types Packs/Day Years [...] encounter Miscellaneous Notes * Telephone Encounter - Rhianna Garber - 11/05/2019 10:18 AM EST Called and left a message for Kalyn Burgos requesting a call back to see if she wanted to come in for an appointment with Dr Howell tomorrow, 11/06 at 9:00. documented in this encounter Plan of Treatment Scheduled Procedures Name Priority Associated Diagnoses Date/Ti me COLONOSCOPY, DIAGNOSTIC (WRV U 3.26) Encounter for colorectal cancer screening documented as of this encounter Visit Diagnoses Not on filedocumented in this encounter Care Teams Ship Construction Teacher Relationship Specialty Start Date End Date April Cummins, ACTOR UNDERSTUDY [address] [place] [address] PCP - General Internal Medicine 11/06/18 11/19/19 documented as of this encounter
--- OUTSIDE RECORDS SUMMARY | 2024-06-27 15:16 | XMS_ITS | Encounter Summary ---
[place] [address] Care Team Providers Care Raw Products Director Name Role Phone Placido, April Tanvir HENLEY Primary Care Provider [phone] Reason for Visit * Reason Comments Follow-up Encounter Details Date Type Department Care Team (Late st Contact Info) Description 04/29/2019 2:30 PM EDT Office [place] [address] Beth Guerra, SUBEDITOR [address] [place] [place] [address] Bloating; Small intestinal bacterial overgrowth; Irritable bowel syndrome [...] kg (126 lb 3.2 oz) 04/29/2019 2:36 P M EDT Height 167.6 cm (5' 6) 04/29/2019 2:36 PM EDT Body Mass Index 20.37 04/29/2019 2:36 PM EDT documented in this encounter Patient Instructions * Patient Instructions* Beth Guerra APRN - 04/29/2019 2:30 PM EDT 1. Metronidazole 500mg twice daily x 14 days. DO NOT DRINK any alcohol while treating this medication 2. VSL #3 or another probiotic as needed 3. Magnesium citrate x 1 or magnesium 4. Follow up in one year documented in this encounter Progress Notes * Beth Guerra APRN - 04/29/2019 2:30 PM EDT FIELD NATURALIST: Beth Guerra APRN PCP: April Cummins APRN [...] Reyes. She has been sent to an industrial commercial groundskeeper. Was told she needs to go a roto gravure press operator. INTERVAL HISTORY- 01/23/18 Completed rifaximin. Immediately noticed a difference. Stools started to improve. Was also taking senna with rifaximin. A few days later her stools stopped improving. Started taking vitamin b12. Juststarted adding glutathione. LUQ abdominal pain is constant. Excessive gas and bloating. Has startedsquatting for the bathroom. Has been taking loperamide. [...] taking antibiotics more recently. She started a sabrina cleanse. Diarrhea [...] reconciled in e-DH Current Outpatient Medications: ??? Fcqqjtnb7-Yvrhnj7-Jzsiw therm. (VISBIOME) 112.5 billion cell Capsule, Take 3 capsules by mouth daily., Disp: 90 capsule, Rfl: 3 ??? Ciclesonide (OMNARIS) 50 mcg Petrolia, Non-Aerosol, 2 sprays each nostril BID, Disp: [...] cancer, pancreatic or liver issues, and IBD. PHYSICAL EXAM: Most [...] history significant for DJD who returns to ne today in follow up. She was doing well in terms [...] 2:56 PM Section of Gastroenterology & Hepatology [facility] documented in this encounter Plan of Treatment Scheduled Procedures Name Priority Associated Diagnoses Date/Ti ne COLONOSCOPY, DIAGNOSTIC (WRV U 3.26) Encounter for colorectal cancer screening documented as of this encounter Visit Diagnoses Diagnosis Bloating Flatulence, eructation, and gas pain Small intestinal bacterial overgrowth Irritable bowel syndrome with diarrhea Irritable bowel syndrome documented in this encounter Care Teams Raw Products Director Relationship Specialty Start Date End Date April Cummins APRN [address] [place] [address] PCP - General Internal Medicine 11/06/18 11/19/19 documented as of this encounter
--- OUTSIDE RECORDS SUMMARY | 2024-06-27 15:16 | XMS_ITS | Encounter Summary ---
[place] [address] Care Team Providers Care Project Management Instructor Name Role Phone April Cummins Tanvir HENLEY Primary Care Provider [phone] Reason for Visit * Reason Onset Date Comments Prior Authorization 03/18/2019 Encounter Details Date Type Department Care Team (Late st Contact Info) Description 03/18/2019 Telephone [place] [address] Diane Terry CCMA Prior Authorization Social History Tobacco Use Types Packs/Day Years [...] encounter Miscellaneous Notes * Telephone Encounter - Diane Terry LNA - 03/18/2019 2:27 PM EDT Medication Prior Authorization 4L Gastroenterology / [place] [address] Subscriber Insurance: [place] Medicaid Phone: Fax: Physician: Brandi Reyes Return Pharmacy: [facility] Fax: Medication Requested: Xifaxin Strength: 550mg Frequency: [...] on filedocumented in this encounter Care Teams Project Management Instructor Relationship Specialty Start Date End Date April Cummins APRN [address] [address] PCP - General Internal Medicine 11/06/18 11/19/19 documented as of this encounter
--- OUTSIDE RECORDS SUMMARY | 2024-06-27 15:16 | XMS_ITS | Encounter Summary ---
[place] [address] Care Team Providers Care Multimedia Artist Name Role Phone April Cummins APRN Primary Care Provider [phone] Encounter Details Date Type Department Care Team (Late st Contact Info) Description 01/31/2018 Orders Only [place] [address] Daneila Harrington Social History Tobacco Use Types Packs/Day Years [...] on filedocumented in this encounter Care Teams Multimedia Artist Relationship Specialty Start Date End Date April Cummins APRN [address] [facility] [place] [address] PCP - General Internal Medicine 09/28/17 02/27/18 documented as of this encounter
--- OUTSIDE RECORDS SUMMARY | 2024-06-27 15:16 | XMS_ITS | Encounter Summary ---
[place] [address] Care Team Providers Care Field Contact Person Name Role Phone April Cummins APRN Primary Care Provider [phone] Encounter Details Date Type Department Care Team (Late st Contact Info) Description 02/06/2019 [place] [address] Ad Dodge LPN Social History Tobacco Use Types Packs/Day [...] as of this encounter Progress Notes * Ad Dodge LPN - 02/06/2019 3:58 PM EDT PA for azelastine initiated via covermymeds. Awaiting response. documented in this encounter Plan of Treatment Scheduled Procedures Name Priority Associated Diagnoses Date/Ti me COLONOSCOPY, DIAGNOSTIC (WRV U 3.26) Encounter for colorectal cancer screening documented as of this encounter Visit Diagnoses Not on filedocumented in this encounter Care Teams Field Contact Person Relationship Specialty Start Date End Date April Cummins APRN [address] [place] [address] PCP - General Internal Medicine 11/06/18 11/19/19 documented as of this encounter
--- OUTSIDE RECORDS SUMMARY | 2024-06-27 15:16 | XMS_ITS | Encounter Summary ---
[place] [address] Care Team Providers Care Hat And Cap Parts Cutter Hand Name Role Phone April Cummins Tanvir HENLEY Primary Care Provider [phone] Encounter Details Date Type Department Care Team (Late st Contact Info) Description 02/07/2018 Orders [place] [address] Beth Guerra, PROFILE MILL OPERATOR TAPE CONTROL [address] [place] [address] Pre-procedural laboratory examination Social History Tobacco Use Types Packs/Day Years [...] encounter Miscellaneous Notes * Addendum Note - Neil Kelly RN - 02/07/2018 3:50 PM EDTAddended by: NEIL KELLY on: 02/07/2018 03:50 PM Modules accepted: Orders documented in this encounter Plan of Treatment Scheduled Procedures Name Priority Associated Diagnoses Date/Ti me COLONOSCOPY, DIAGNOSTIC (WRV U 3.26) Encounter for colorectal cancer screening documented as of this encounter Results * Creatinine (02/08/2018 9:15 AM EDT) Creatinine 0.78 0.70 - 1.20 mg/dL [facility] Estimated GFR >60 >=60 [facility] Comment: The reported eGFR should be multiplied by 1.2 for patients. The MDRD is not an appropriate measure of renal function for patients with body mass extremes or in patients with acute kidney failure. http://SourceMedical/DHnkdep http://SourceMedical/DHMCnkf Blood specimen (specimen) 02/08/2018 9:15 AM EDT 02/08/2018 9:20 AM EDT Narrative Resulting Agency Comment Spec In Lab Beth Guerra PROFILE MILL OPERATOR TAPE CONTROL CHEMISTRY ORDERA BLES [facility] [place] [address] documented in this encounter Visit Diagnoses Diagnosis Pre-procedural laboratory examination documented in this encounter Care Teams Hat And Cap Parts Cutter Hand Relationship Specialty Start Date End Date April Cummins APRN [address] [facility] [place] [address] PCP - General Internal Medicine 09/28/17 02/27/18 documented as of this encounter
--- OUTSIDE RECORDS SUMMARY | 2024-06-27 15:16 | XMS_ITS | Encounter Summary ---
Author Organization Formerly [facility], [facility] Address [facility] [address] Care Team Providers Care Rn Hyperbaric Name Role Phone Susan Elise Arleth SHEETS Primary Care Provider [phone] Reason for Visit * Physical Therapy (Routine) - Specialty Diagnoses / Procedures Referred By Rafael mart Referred To Contact Physical Therapy Diagnoses Irritable bowel syndrome with diarrhea Bloating Beth Guerra, MANAGER FRAUD [address] [place] [address] [facility] [address] [place] [address] Referral ID Status Reason Start Date Expiration Date V isits Requested Visits Authorized [id number] Evaluate and Treat 10/31/2017 10/31/2018 12 12 Encounter Details Date Type Department Care Team (Late st Contact Info) Description 02/28/2018 2:00 PM EDT Office Visit Physical Therapy at 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 Goals: [facility] goals (3 months) 1. Patient to be [...] suppression techniques. moderation of bladder irritants, toilet positioning and techniques, relaxation/downtraining, diaphragmatic breathing, and pelvic floor muscle exercises: LH ~10 seconds with submaximal contraction, rest 10 seconds with focus on full relaxation, x 10 reps, 2 sessions/day Total Treatment time: 60 minutes: juan pabloal , neuro re-ed Total Timed Code Treatment: 15 minutes AMBERLY NAZARIO PT documented in this encounter Plan of Treatment Scheduled Procedures Name Priority Associated Diagnoses Date/Ti me COLONOSCOPY, DIAGNOSTIC (WRV U 3.26) Encounter for colorectal cancer screening Scheduled Referrals Name Type Priority Associated Diagnoses Orde r Schedule Referral to Physical Therapy Outpatient Referral Routine Irritable bowel syndrome with diarrhea Bloating Ordered: 10/31/2017 documented as of this encounter Visit Diagnoses Diagnosis Disorder of muscle, ligament, and fascia Unspecified disorder of muscle, ligament, and fascia Pelvic floor dysfunction Pelvic muscle wasting Mixed stress and urge urinary incontinence Mixed incontinence urge and stress (male)(female) Chronic constipation Unspecified constipation documented in this encounter Care Teams Rn Hyperbaric Relationship Specialty Start Date End Date Susan Elise ND PCP - General Naturopathic Medicine 02/28/18 8 documented as of this encounter
--- OUTSIDE RECORDS SUMMARY | 2024-06-27 15:16 | XMS_ITS | Encounter Summary ---
[place] [address] Care Team Providers Care Welding Machine Operator Helper Arc Name Role Phone April Cummins Tanvir HENLEY Primary Care Provider [phone] Encounter Details Date Type Department Care Team (Latest Contact Info) Description 02/08/2018 9:10 AM EDT Laboratory Appointment Lab [address] [place] [id number] Pre-procedural laboratory examination Social History Tobacco Use [...] Procedure Name Priority Date/Time Associated Diagnosis Comments CREATININE STAT 02/08/2018 9:15 AM EDT Pre-procedural laboratory examination documented in this encounter Results * Creatinine (02/08/2018 9:15 AM EDT) Creatinine 0.78 0.70 - 1.20 mg/dL [facility] Estimated GFR >60 >=60 [facility] Comment: The reported eGFR should be multiplied by 1.2 for patients. The MDRD is not an appropriate measure of renal function for patients with body mass extremes or in patients with acute kidney failure. http://Paperwoven.pocketvillage/DHnkdep http://Paperwoven.pocketvillage/DHMCnkf Blood specimen (specimen) 02/08/2018 9:15 AM EDT 02/08/2018 9:20 AM EDT Narrative Resulting Agency Comment Spec In Lab Beth Guerra SULFONATION EQUIPMENT OPERATOR CHEMISTRY ORDERA BLES [facility] [place] [address] documented in this encounter Visit Diagnoses Diagnosis Pre-procedural laboratory examination documented in this encounter Care Teams Welding Machine Operator Helper Arc Relationship Specialty Start Date End Date April Cummins APRN [address] [place] [address] PCP - General Internal Medicine 09/28/17 02/27/18 documented as of this encounter
--- OUTSIDE RECORDS SUMMARY | 2024-06-27 15:16 | XMS_ITS | Encounter Summary ---
[place] [address] Care Team Providers Care Certified Executive Chef Name Role Phone April Cummins APRN Primary Care Provider [phone] Encounter Details Date Type Department Care Team (Late st Contact Info) Description 01/16/2019 [place] [id number] Juan Mercado RN Social History Tobacco Use [...] notes and labs. The fax # is [phone]. Paperwork faxed. documented in this encounter Plan of Treatment Scheduled Procedures Name Priority Associated Diagnoses Date/Ti me COLONOSCOPY, DIAGNOSTIC (WRV U 3.26) Encounter for colorectal cancer screening documented as of this encounter Visit Diagnoses Not on filedocumented in this encounter Care Teams Certified Executive Chef Relationship Specialty Start Date End Date April Cummins APRN [address] [place] [address] PCP - General Internal Medicine 11/06/18 11/19/19 documented as of this encounter
--- OUTSIDE RECORDS SUMMARY | 2024-06-27 15:16 | XMS_ITS | Encounter Summary ---
[place] [address] Care Team Providers Care Sales Representative Advertising Name Role Phone April Cummins KALE Primary Care Provider [phone] Encounter Details Date Type Department Care Team (Late st Contact Info) Description 03/11/2019 Telephone [place] [phone] Namrata Robert, RN Social History Tobacco Use Types Packs/Day [...] encounter Miscellaneous Notes * Telephone Encounter - Namrata Robert RN - 03/11/2019 9:16 AM EDT Patient calls the office stating that she has not seen Beth for a little while and has been doing and feeling well up until about one month ago when she started experiencing really bad gas andexplosive diarrhea. Patent states that she was using VSL#3 and stopped this for a while and is nowbeing told by her pharmacy that they can not get VSL #3. Patient to vanessa her pharmacy to see if this is an insurance coverage issue or if they are really notable to get this. documented in this encounter Plan of Treatment Scheduled Procedures Name Priority Associated Diagnoses Date/Ti me COLONOSCOPY, DIAGNOSTIC (WRV U 3.26) Encounter for colorectal cancer screening documented as of this encounter Visit Diagnoses Not on filedocumented in this encounter Care Teams Sales Representative Advertising Relationship Specialty Start Date End Date April Cummins APRN [address] [place] [address] PCP - General Internal Medicine 11/06/18 11/19/19 documented as of this encounter
--- OUTSIDE RECORDS SUMMARY | 2024-06-27 15:16 | XMS_ITS | Encounter Summary ---
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 x10(3)/[facility] RBC 3.17(L) 4.00 - 5.21 x10(6)/[facility] Hemoglobin 9.8(L) 11.7 - 15.5 gm/dL [facility] Hematocrit 30.4(L) 35.7 - 45.8 % [facility] MCV 95.9(H) 82.6 - 94.4 fL [facility] MCH 30.9 27.1 - 32.0 pg [facility] MCHC 32.2 31.7 - 35.0 gm/dL [facility] Platelets 195 145 - 357 x10(3)/[facility] RDWSD 48.6(H) 37.0 - 46.0 [facility] RDWCV 13.6 11.5 - 14.1 % [facility] MPV 10.2 7.6 - 12.9 [facility] nRBC % Auto 0.0 % [facility] nRBC Abs Auto 0.000 0.000 - 0.000 x10(3)/[facility] Blood specimen (specimen) 01/07/2020 1:58 AM EST 01/07/2020 2:27 AM EST Narrative Resulting Agency Comment Spec In Lab Judd Lyon MD HEMATOLOGY ORDERABL ES [facility] [place] [address] * Basic Metabolic Panel (non-fasting) (01/07/2020 1:58 AM EST) Pathologist [facility] Glucose Lvl 150 65 - 199 mg/dL [facility] Comment:Diabetes: >=200 mg/d L plus symptoms BUN 9 8 - 18 mg/dL [facility] Creatinine 0.78 0.70 - 1.20 mg/dL [facility] Sodium 135 135 - 145 mmol/L [facility] Potassium 3.8 3.5 - 5.0 mmol/L [facility] Comment: Please note: ??Patients with WBC >100,000 may have falsely elevated Potassium levels. ??For accurate Potassium quantification in these patients send serum separator tube (gold top) for subsequent determinations. ??Contact the Clinical Chemistry Laboratory if there are any questions. Chloride 101 98 - 107 mmol/L [facility] CO2 23 22 - 31 mmol/L [facility] Anion Gap 11 5 - 15 mmol/L [facility] Calcium 8.6 8.5 - 10.5 mg/dL [facility] Estimated GFR 82 >=60 mL/min/1. 73 m?? [facility] Comment: The eGFR was calculated using the CKD-EPI equation. As with all creatinine based estimates of kidney function, eGFR values calculated with the CKD-EPI equation are not accurate in patients with acute kidney failure, extremes of body mass or the acutely ill. [email or web address] eGFR 95 >=60 mL/min/1. 73 m?? [facility] Comment: The eGFR was calculated using the CKD-EPI equation. As with all creatinine based estimates of kidney function, eGFR values calculated with the CKD-EPI equation are not accurate in patients with acute kidney failure, extremes of body mass or the acutely ill. [email or web address] Blood specimen (specimen) 01/07/2020 1:58 AM EST 01/07/2020 2:27 AM EST Narrative Resulting Agency Comment Spec In Lab Yolanda Still MD CHEMISTRY ORDERABLES [facility] [place] [address] * CT Knee wo Contrast Left (Generic) [...] the number below. Yolanda Still MD IMG CT ORDERABLES * XR Fluoro No Rad <1Hr - OR Use (01/06/2020 8:07 PM EST) Narrative [facility] - 01/06/2020 8:07 PM EST This exam is auto-finalizing. No interpretation was done. Viky MAHMOOD FLUORO ORDERABLE S [place], [place] * ABORH Recheck Status (01/06/2020 6:42 PM EST) ABORH Recheck Order Order Placed [facility] ABORH Type Recheck Complete [facility] Blood specimen (specimen) 01/06/2020 6:42 PM EST 01/06/2020 6:46 PM EST Narrative Resulting Agency Comment Spec In Lab Carrillo Manley MD BLOOD BANK LAB ORDER PATRICK [facility] [place] [address] * Antibody screen (01/06/2020 6:42 PM EST) Ab Screen Interp Negative [facility] Expires at [id number] on: 01/09/2020 [facility] Blood specimen (specimen) 01/06/2020 6:42 PM EST 01/06/2020 6:46 PM EST Narrative Resulting Agency Comment Spec In Lab Carrillo Manley MD BLOOD BANK LAB ORDER PATRICK Performing Organization Address City/[facility]/ZIP Co de Phone Number [facility] [place] [address] * ABO/Rh Typing (01/06/2020 6:42 PM EST) ABORH Type O Pos [facility] Blood specimen (specimen) 01/06/2020 6:42 PM EST 01/06/2020 6:46 PM EST Narrative Resulting Agency Comment Spec In Lab Carrillo Manley MD BLOOD BANK LAB ORDER PARTICK [facility] [place] [address] * (ABNORMAL) Differential, Automated (01/06/2020 6:41 PM EST) Neutrophils % 80.4 % [facility] Neutr Abs (ANC) 6.87(H) 1.70 - 6.10 x10(3)/[facility] Lymphocytes % 12.6 % [facility] Lymphocytes Abs 1.1 0.9 - 3.2 x10(3)/[facility] Monocytes % 6.1 % [facility] Monocyte Abs 0.5 0.3 - 0.9 x10(3)/[facility] Eosinophils % 0.2 % [facility] Eosinophils Abs 0.0 0.0 - 0.4 x10(3)/[facility] Basophils % 0.5 % [facility] Basophils Abs 0.0 0.0 - 0.1 x10(3)/[facility] Immature Gran % 0.20 % [facility] Comment: Immature granulocytes(IG's)percentage and absolute count will include metamyelocytes, myelocytes, and promyelocytes. Blood smears from CBCs yielding IG's will be scanned manually for concordance. If this scan disagrees with the automated IG or if promyelocytes are noted, a manual differential will be performed. Elda Gran Abs 0.02 0.00 - 0.04 x10(3)/[facility] Blood specimen (specimen) 01/06/2020 6:41 PM EST 01/06/2020 6:50 PM EST Narrative Resulting Agency Comment Spec In Lab Carrillo Manley MD HEMATOLOGY ORDERABLE S [facility] [place] [address] * (ABNORMAL) Hemogram (01/06/2020 6:41 PM EST) WBC 8.6 4.0 - 9.5 x10(3)/[facility] RBC 3.40(L) 4.00 - 5.21 x10(6)/[facility] Hemoglobin 10.6(L) 11.7 - 15.5 gm/dL [facility] Hematocrit 32.5(L) 35.7 - 45.8 % [facility] MCV 95.6(H) 82.6 - 94.4 fL [facility] MCH 31.2 27.1 - 32.0 pg [facility] MCHC 32.6 31.7 - 35.0 gm/dL [facility] Platelets 195 145 - 357 x10(3)/[facility] RDWSD 47.7(H) 37.0 - 46.0 [facility] RDWCV 13.6 11.5 - 14.1 % [facility] MPV 10.0 7.6 - 12.9 [facility] nRBC % Auto 0.0 % [facility] nRBC Abs Auto 0.000 0.000 - 0.000 x10(3)/[facility] Blood specimen (specimen) 01/06/2020 6:41 PM EST 01/06/2020 6:50 PM EST Narrative Resulting Agency Comment Spec In Lab Carrillo Manley MD HEMATOLOGY ORDERABLE S Performing Organization Address City/[facility]/ZIP Co de Phone Number [facility] [place] [address] * APTT (01/06/2020 6:41 PM EST) PTT 31 25 - 37 sec [facility] Comment: The PTT is NOT appropriate for heparin monitoring. Use the Anti-Xa level for heparin monitoring (HEP UFH) or LMWH monitoring (HEP LMW). A PTT less than 37 seconds generally indicates adequate hemostasis. Blood specimen (specimen) 01/06/2020 6:41 PM EST 01/06/2020 6:50 PM EST Narrative Resulting Agency Comment Spec In Lab Viky Govea MD HEMATOLOGY ORDERABLE S Performing Organization Address City/[facility]/ZIP Co de Phone Number [facility] [place] [address] * (ABNORMAL) Prothrombin Time (01/06/2020 6:41 PM EST) PT 13.3(H) 9.4 - 12.5 sec [facility] INR 1.2 [facility] Comment: [...] Lab Viky Govea MD HEMATOLOGY ORDERABLE S [facility] [place] [address] * Basic Metabolic Panel (non-fasting) (01/06/2020 6:41 PM EST) Glucose Lvl 100 65 - 199 mg/dL [facility] Comment:Diabetes: >=200 mg/d L plus symptoms BUN 10 8 - 18 mg/dL [facility] Creatinine 0.76 0.70 - 1.20 mg/dL [facility] Sodium 139 135 - 145 mmol/L [facility] Potassium 3.6 3.5 - 5.0 mmol/L [facility] Comment: Please note: ??Patients with WBC >100,000 may have falsely elevated Potassium levels. ??For accurate Potassium quantification in these patients send serum separator tube (gold top) for subsequent determinations. ??Contact the Clinical Chemistry Laboratory if there are any questions. Chloride 105 98 - 107 mmol/L [facility] CO2 23 22 - 31 mmol/L [facility] Anion Gap 11 5 - 15 mmol/L [facility] Calcium 8.8 8.5 - 10.5 mg/dL [facility] Estimated GFR 85 >=60 mL/min/1. 73 m?? [facility] Comment: The eGFR was calculated using the CKD-EPI equation. As with all creatinine based estimates of kidney function, eGFR values calculated with the CKD-EPI equation are not accurate in patients with acute kidney failure, extremes of body mass or the acutely ill. [email or web address] eGFR 98 >=60 mL/min/1. 73 m?? [facility] Comment: The eGFR was calculated using the CKD-EPI equation. As with all creatinine based estimates of kidney function, eGFR values calculated with the CKD-EPI equation are not accurate in patients with acute kidney failure, extremes of body mass or the acutely ill. [email or web address] Blood specimen (specimen) 01/06/2020 6:41 PM EST 01/06/2020 6:50 PM EST Narrative Resulting Agency Comment Spec In Lab Viky Govea MD CHEMISTRY ORDERABLES [facility] [place] [address] * CT Head wo Contrast (Generic) (01/06/2020 [...] number below. Electronically signed by: Lana Guallpa, [facility] ([phone]),at 01/06/2020 5:48 PM Viky Govea MD [facility] [place] ORDERABLES * Film Library- Storage Only DX Pelvis (01/06/2020 3:18 PM EST) Narrative [facility] - 01/06/2020 3:18 PM EST This exam is auto-finalizing. It's purpose is for storage only. Adriana Nicholas MD [facility] FILM LIBRARY ORD ERABLES Performing Organization Address [facility] de Phone Number [place], [place] * Film Library- Storage Only DX Chest (01/06/2020 3:17 PM EST) Narrative [facility] - 01/06/2020 3:17 PM EST This exam is auto-finalizing. It's purpose is for storage only. Adriana Nicholas MD [facility] FILM LIBRARY ORD ERABLES Performing Organization Address City/[facility]/ZIP Co de Phone Number DH [place], [place] documented in this encounter Visit Diagnoses [...] Sanjuana Solomon RN - Reason: Patient/family refused)1242 (MAR Hold - Provider: Admin Adt - Reason: Transfer to a Procedural area)1347 (MAR Unhold - Provider: Admin Adt)1349 (MAR Hold - Provider: Admin Adt - Reason: Transfer to a Procedural area)1532 (MAR Unhold - Provider: Afua Ramachandran RN)1800 (Not [...] Ad South RN)0803 (Stopped - Provider: Frances Douglas RN)1449 (New Bag - Provider: Frances Douglas [...] area)1640 (JAN Unhold - Provider: Admin Adt) 0901 [...] Discontinued, Routine 2012 (Given - Provider: Jaimie Martinez RN) 0822 (Given - Provider: Sanjuana Solomon, MARLEY)1242 (MAR Hold - Provider: Admin Adt - Reason: Transfer to a Procedural area)1347 (MAR Unhold - Provider: Admin Adt)1349 (MAR Hold - Provider: Admin Adt - Reason: Transfer to a Procedural area)1640 (MAR Unhold - Provider: Admin Adt)211 (Given - Provider: Olu Hernandez, MARLEY) 0901 [...] Admin Adt)1640 (MAR Unhold - Provider: Admin Adt)211 (Given - Provider: Olu Hernandez RN) 0901 (Given - Provider: Sanjuana Solomon, MARLEY)1603 (Given - Provider: Sanjuana Solomon, MARLEY) lidocaine (LIDODERM) 5 % patch 3 patch(Linked Group 1) 3 patch, Transdermal, EVERY 24 HOURS, First dose on Sun01/08/20 at 1015, Until Discontinued, Apply patch(es) for 12 hours, and then remove for 12 hours, Routine 1141 (Patch Applied - Provider: Sanjuana Solomon, MARLEY)1242 (MAR Hold - Provider: Admin Adt - Reason: Transfer to a Procedural area)1347 (MAR Unhold - Provider: Admin Adt)1349 (MAR Hold - Provider: Admin Adt - Reason: Transfer to a Procedural area)1640 (MAR Unhold - Provider: Admin Adt) 1316 (Patch Applied - Provider: Sanjuana Solomon, MARLEY) lidocaine (LIDODERM) patch REMOVAL(Linked Group 1) Transdermal, EVERY 24 HOURS, First dose on Sun01/08/20 at 2200, Until Discontinued, Remove lidocaine 5 %(700 mg/patch) patch 1242 (MAR Hold - Provider: Admin Adt - Reason: Transfer to a Procedural area)1347 ([facility] Unhold - Provider: Admin Adt)1349 (MAR Hold - Provider: Admin Adt - Reason: Transfer to a Procedural area)1640 ([facility] Unhold - Provider: Admin Adt)2200 (Patch Removed - Provider: Olu Hernandez, MARLEY) polyethylene glycol (Miralax) packet 17 g 17 g, Oral, 2 TIMES DAILY, First dose on Sun01/06/20 at 2315, Until Discontinued, Routine 0900 (Not Given - Provider: Frances Douglas RN - Reason: Patient/family refused)2010 (Given - Provider: Jaimie Martinez RN) 0831 (Not Given - Provider: Sanjuana Solomon RN - Reason: Order parameters not met)1242 ([facility] Hold - Provider: Admin Adt - Reason: Transfer to a Procedural area)1347 ([facility] Unhold - Provider: Admin Adt)1349 (MAR Hold - Provider: Admin Adt - Reason: Transfer to a Procedural area)1639 ([facility] Unhold - Provider: Admin Adt)2113 (Given [...] - Reason: Transfer to a Procedural area)1347 ([facility] Unhold - Provider: Admin Adt)1349 ([facility] Hold - Provider: Admin Adt - Reason: Transfer to a Procedural area)1640 ([facility] Unhold - Provider: Admin Adt)2113 (Given - Provider: Olu Hernandez RN) 0901 (Given - Provider: Sanjuana Solomon RN) sodium chloride 0.9 % (flush) flush 5 mL 5 mL, Intravenous, 2 TIMES DAILY, First dose on Sun01/06/20 at 2315, Until Discontinued, Routine 0951 (Given - Provider: Frances Douglas, RN)2100 (Due) 0830 (Given - Provider: Sanjuana Solomon, RN)1242 ([facility] Hold - Provider: Admin Adt - Reason: Transfer to a Procedural area)1347 ([facility] Unhold - Provider: Admin Adt)1349 ([facility] Hold - Provider: Admin Adt - Reason: Transfer to a Procedural area)1640 ([facility] Unhold - Provider: Admin Adt)2114 (Given - Provider: Olu Hernandez RN) 0900 (Given - Provider: Sanjuana Solomon, MARLEY) Continuous Medication Order 01/07/2020 01/08/2020 01/09/2020 lactated ringers infusion 75 mL/hr, Intravenous, CONTINUOUS, Starting on Sun01/06/20 at 1709, Until Sun01/09/20 at 1854 1021 (New Bag - Provider: Kerri Diaz RN) 0021 (New Bag - Provider: Jaimie Martinez RN)0354 (Stopped - Provider: Jaimie Martinez RN - Comment: Per pt request)1242 ([facility] Hold - Provider: Admin Adt - Reason: Transfer to a Procedural area)1347 ([facility] Unhold - Provider: Admin Adt)1349 ([facility] Hold - Provider: Admin Adt - Reason: Transfer to a Procedural area)1519 ([facility] Unhold - Provider: Afua Ramachandran, MARLEY) 0810 (New Bag - Provider: Es Tamayo RN) PRN Medication Order 01/07/2020 01/08/2020 01/09/2020 cyclobenzaprine (Flexeril) tablet 10 mg 10 mg, Oral, 3 TIMES DAILY PRN, Starting on Sun01/08/20 at 0027, Until Sun01/09/20 at 1854, Muscle spasms, Routine 0047 (Given - Provider: Jaimie Martinez RN)0823 (Given - Provider: Sanjuana Solomon RN)1242 ([facility] Hold - Provider: Admin Adt - Reason: Transfer to a Procedural area)1347 ([facility] Unhold - Provider: Admin Adt)1349 ([facility] Hold - Provider: Admin Adt - Reason: Transfer to a Procedural area)1532 ([facility] Unhold - Provider: Afua Ramachandran, MARLEY) 0901 (Given - Provider: Sanjuana Solomon, RN)1315 (Given - Provider: Sanjuana Solomon, MARLEY) Dextromethorphan HBr 5 mg/5 mL oral syrup 15 mg 15 mg, Oral, EVERY 4 HOURS PRN, Cough, For resetting opioid receptors, give with dilaudid., Starting on Sonal 01/08/20 at 0316, Until Sun01/09/20 at 1854 0350 (Given - Provider: Jaimie Martinez RN)1242 ([facility] Hold - Provider: Admin Adt - Reason: Transfer to a Procedural area)1347 ([facility] Unhold - Provider: Admin Adt)1349 ([facility] Hold - Provider: Admin Adt - Reason: Transfer to a Procedural area)1640 ([facility] Unhold - Provider: Admin Adt) fentaNYL (PF) 50mcg/mL injection (CANCELED) 50 mcg, Intravenous, EVERY 5 MIN PRN, Starting on Sonal 01/08/20 at 1243, Until Sonal 01/08/20 at 1609, Pain, or prior to injection of local anesthetic., Hold for respiratory rate less than 8 breaths per minute. (maximum dose 200 mcg), Day of Surgery (Day of Procedure), Routine 124 (Given - Provider: Mirian Martinez RN) HYDROmorphone (DILAUDID) injection 0.4 mg (COMPLETED) 0.4 mg, Intravenous, ONCE PRN, 1 dose, Starting on Sun01/07/20 at 0047, Until Sun01/07/20 at 0102, Pain, For pain not controlled with current medications, Routine 010 (Given - Provider: Lily Oakley, MARLEY) HYDROmorphone (DILAUDID) injection 0.4 mg (COMPLETED) 0.4 [...] pain not controlled with current medications, Routine 17 (Given - Provider: Jaimie Martinez RN) HYDROmorphone [...] area)1640 (MAR Unhold - Provider: Admin Adt) HYDROmorphone (Dilaudid) [...] (See Alternative - Provider: Sanjuana Solomon RN)1242 ([facility] Hold - Provider: Admin Adt - Reason: Transfer to a Procedural area)1347 ([facility] Unhold - Provider: Admin Adt)1349 (MAR Hold - Provider: Admin Adt - Reason: Transfer to a Procedural area)1519 ([facility] Unhold - Provider: Afua Ramachandran, MARLEY)2233 (See Alternative - Provider: Olu Hernandez RN) [...] (See Alternative - Provider: Sanjuana Solomon RN)1242 ([facility] Hold - Provider: Admin Adt - Reason: Transfer to a Procedural area)1347 ([facility] Unhold - Provider: Admin Adt)1349 ([facility] Hold - Provider: Admin Adt - Reason: Transfer to a Procedural area)1519 ([facility] Unhold - Provider: Afua Ramachandran, MARLEY)2233 (See Alternative - Provider: Olu Hernandez RN) [...] (See Alternative - Provider: Frances Douglas RN)2012 (Given - Provider: Jaimie Martinez RN) 0020 (Given - Provider: Jaimie Martinez RN)0431 (Given - Provider: Jaimie Martinez RN)0823 (Given - Provider: Sanjuana Solomon RN)1242 (MAR Hold - Provider: Admin Adt - Reason: Transfer to a Procedural area)1347 ([facility] Unhold - Provider: Admin Adt)1349 ([facility] Hold - Provider: Admin Adt - Reason: Transfer to a Procedural area)1519 ([facility] Unhold - Provider: Afua Ramachandran RN)2233 (Given - Provider: Olu Hernandez RN) 0545 (Given - Provider: Olu Hernandez RN)1032 (Given - Provider: Es Tamayo RN) lidocaine (XYLOCAINE) 10 mg/mL (1 %) injection 3 mg 3 mg (0.3 mL), Subcutaneous, ONCE PRN, 1 dose, Starting on Sun01/06/20 at 2249, Until Sun01/09/20 at 1854, for discomfort with PIV insertion, Routine 1242 ([facility] Hold - Provider: Admin Adt - Reason: Transfer to a Procedural area)1347 ([facility] Unhold - Provider: Admin Adt)1349 ([facility] Hold - Provider: Admin Adt - Reason: Transfer to a Procedural area)1640 ([facility] Unhold - Provider: Admin Adt) LORazepam [...] Intravenous, EVERY 8 HOURS PRN, Starting on 01/06/20 at 2249, Until Sun01/09/20 at 1854, Nausea, If multiple antiemetics are ordered, use ondansetron first, prochlorperazine second, metoclopramide third. 1242 ([facility] HOSPITAL Hold - Provider: Admin Adt - Reason: Transfer to a Procedural area)1347 ([facility] Unhold - Provider: Admin Adt)1349 ([facility] Hold - Provider: Admin Adt - Reason: Transfer to a Procedural area)1640 ([facility] Unhold - Provider: Admin Adt) oxyCODONE (Roxicodone) tablet 15 mg (CANCELED)(Linked Group 3) 15 mg, Oral, EVERY 4 HOURS PRN, Starting on 01/06/20 at 2249, Until Sun01/07/20 at 0808, Pain, severe pain (7-10), For severe pain (7-10). Do not exceed 15 mg in 4 hours. If pain not relieved, call provider., Routine 0339 (Given - Provider: Ad South RN) sodium chloride 0.9 % (flush) flush 5-20 mL 5-20 mL, Intravenous, EVERY 1 MIN PRN, Starting on 01/06/20 at 2249, Until Sun01/09/20 at 1854, flush, Flush pertains to all indwelling lines. Flush per protocol found in the job aid using the link provided on this medication record., Routine 1242 ([facility] Hold - Provider: Admin Adt - Reason: Transfer to a Procedural area)1347 ([facility] Unhold - Provider: Admin Adt)1349 ([facility] Hold - Provider: Admin Adt - Reason: Transfer to a Procedural area)1640 ([facility] Unhold - Provider: Admin Adt) vancomycin (VANCOCIN) [...] Oral, EVERY 4 HOURS PRN, Starting on Tu01/06/20 at 2249, Until Sun01/07/20 at 0808, Pain, [...] Routine documented in this encounter Care Teams Retail Director Relationship Specialty Start Date End Date April Cummins APRN [address] [place] [address] PCP - General Internal Medicine 01/06/20 05/20/20 documented as of this encounter
--- OUTSIDE RECORDS SUMMARY | 2024-06-27 15:16 | XMS_ITS | Encounter Summary ---
Author Organization Formerly [facility] [place] [address] Care Team Providers Care Field Care Manager Name Role Phone April Cummins APRN Primary Care Provider + [phone] Reason for Visit * Consultation (Routine) - Closed Specialty Diagnoses / Procedures Referred By Rafael mart Referred To Contact Endocrinology Diagnoses abn thyroid antibodies April Cummins APRN [address] [place] [address] [facility] Endocrinology [address] [place] [phone] Referral ID Status Reason Start Date Expiration Date V isits Requested Visits Authorized [id number] Closed Consult, Test & Treat Connection Center 11/06/2018 11/06/2019 1 1 Encounter Details Date Type Department Care Team (Late st Contact Info) Description 03/06/2019 10:00 AM EDT [place] [address] [facility] [place] [address] Danny's thyroiditis Social History Tobacco Use Types Packs/Day Years [...] documented in this encounter Progress Notes * Carrillo Flores MD - 03/06/2019 10:00 AM EDT Ms. Kalyn Burgos is an 58 y.o. female who presents in consultation for chief complaint of abnormal thyroid tests Referred by: April Cummins APRN She presents today to discuss positive blood tests for thyroid antibodies. Overall she tells me that she is concerned about feeling very weak all over. She tells me that this has been evaluated by other providers and she was told she has fibromyalgia. She has irritable bowel syndrome and a recentkidney stone that have been bothersome. She has difficulty sleeping and constant feeling of hunger. She has some ongoing problems with incontinence. +Occasional palpitations. She does have some occasional pain in her neck area but longstanding since cervical spine surgery. She feels that her eyesare puffier than previous years She has been seen on an ongoing basis by naturopathic provider. This provider has recommended several supplements to support adrenal and thyroid health including high doses of iodine, and B vitamins. Patient is following the bulletproof diet. Notable PMH: [...] Outpatient Medications: ??? Ciclesonide (OMNARIS) 50 mcg [place], Non-Aerosol, 2 sprays each nostril BID, Disp: [...] Office Visit from 03/06/2019 in Endocrinology at [place] Office Visit from 01/31/2019 in Allergy at [place] Weight 58.5 kg (129 lb) 1 03/06/2019 [...] developing Danny's thyroiditis. Biochemically, her thyroid function isnormal. We discussed that 3- 5% of patients progress to overt hypothyroidism per year. I recommend that her primary care provider check TSH ~once per year to assess for this. I recommended that in the future she hold any biotin-containing supplements for 48 hrs before blooddraw, because it can potentially interfere with hormonal [...] to contact me. Sincerely, Carrillo Flores MD Manager Of Recruitingpharmacist in charge Endocrinology Section [facility] documented in this encounter Plan of Treatment Scheduled Procedures Name Priority Associated Diagnoses Date/Ti me COLONOSCOPY, DIAGNOSTIC (WRV U 3.26) Encounter for colorectal cancer screening documented as of this encounter Visit Diagnoses Diagnosis Danny's thyroiditis Chronic lymphocytic thyroiditis documented in this encounter Care Teams Field Care Manager Relationship Specialty Start Date End Date April Cummins APRN [address] [place] [address] PCP - General Internal Medicine 11/06/18 11/19/19 documented as of this encounter
--- OUTSIDE RECORDS SUMMARY | 2024-06-27 15:16 | XMS_ITS | Encounter Summary ---
Author Organization [facility] [place] [address] Care Team Providers Care Testing Coordinator Name Role Phone April Cummins KALE Primary Care Provider [phone] Encounter Details Date Type Department Care Team (Late st Contact Info) Description 01/06/2020 1:30 PM EST Ancillary Procedure [place] [address] Adriana Nicholas MD [facility] [place] [address] Social History Tobacco Use Types Packs/Day Years [...] LIBRARY STORAGE ONLY DX LOWER EXTREMITY Routine 01/06/2020 1:26 PM EST documented in this encounter Results * Film Library- Storage Only DX Lower Extremity (01/06/2020 1:26 PM EST) Narrative [facility] - 01/06/2020 1:26 PM EST This exam is auto-finalizing. It's purpose is for storage only. Adriana Nicholas MD IMG FILM LIBRARY ORD ERABLES [place], [place] documented in this encounter Visit Diagnoses Not on filedocumented in this encounter Care Teams Testing Coordinator Relationship Specialty Start Date End Date April Cummins, KALE [address] [facility] [address] [place] [address] PCP - General Internal Medicine 01/06/20 05/20/20 documented as of this encounter
--- OUTSIDE RECORDS SUMMARY | 2024-06-27 15:16 | XMS_ITS | Encounter Summary ---
[place] [address] Care Team Providers Care Training Administrator Name Role Phone Rosita Cumminsyce Tanvir HENLEY Primary Care Provider [phone] Encounter Details Date Type Department Care Team (Late st Contact Info) Description 01/06/2020 3:25 PM EST Ancillary Procedure [place] [address] Social History Tobacco Use Types Packs/Day Years [...] Diagnosis Comments FILM LIBRARY STORAGE ONLY DX PELVIS STAT 01/06/2020 3:18 PM EST documented in this encounter Results * Film Library- Storage Only DX Pelvis (01/06/2020 3:18 PM EST) Narrative [facility] - 01/06/2020 3:18 PM EST This exam is auto-finalizing. It's purpose is for storage only. Adriana Nicholas MD IM FILM LIBRARY ORD ERABLES [place], [place] documented in this encounter Visit Diagnoses Not on filedocumented in this encounter Care Teams Training Administrator Relationship Specialty Start Date End Date April Cummins APRN [address] [facility] [place] [address] PCP - General Internal Medicine 01/06/20 05/20/20 documented as of this encounter
--- OUTSIDE RECORDS SUMMARY | 2024-06-27 15:16 | XMS_ITS | Encounter Summary ---
Author Organization Pending Sale To [facility] Address [facility] [place] [address] Care Team Providers Care Fleet Assistant Name Role Phone uSsan Elise Arleth SHEETS Primary Care Provider [phone] Reason for Visit * Consultation (Routine) - Specialty Diagnoses / Procedures Referred By aRfael mart Referred To Contact Dermatology Diagnoses Plantar wart April Cummins, INTELLIGENCE OFFICER BASIC [address] [place] [address] [facility] Dermatology [address] [place] [address] Referral ID Status Reason Start Date Expiration Date V isits Requested Visits Authorized [id number] Consult, Test & Treat Connection Center PCP Updated and/or Approved 10/27/2019 10/26/2020 6 6 Encounter Details Date Type Department Care Team (Late st Contact Info) Description 11/20/2019 4:00 PM EST Office Visit Dermatology at [facility] [address] [place] [address] Edmond Howell MD [facility] [address] [place] [address] Viral warts, unspecified type; Cord[place] Social History Tobacco Use Types Packs/Day Years [...] as of this encounter Progress Notes * Edmond Howell R - 11/20/2019 4:00 PM EST Images [...] evaluation of a concerning lesion. 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 Ciclesonide (OMNARIS) 50 mcg [place], Non-Aerosol INSTILL TWO SPRAYS IN EACH NOSTRIL TWICE A DAY 12.5 g 0 ??? Wwdrkrex7-Insnib3-Ytcls therm. (VISBIOME) 112.5 billion cell Capsule Take [...] katherine acid and 5-FU), cimetidine, cidofovir (3% comp ounded, 1 week on/1 week off), Aldara, and Gilma injections. - Joint decision made to pursue destruction by paring following by cryotherapy in combination with home salicylic acid plasters. - Over the counter Salicylic acid (Mediplast) plasters apply every 24 hrs and cover with Band-Aid or tape. - Nightly after showering or soaking, file wart with disposable emery board, Procedure Note: Procedure: Destruction of lesion(s) with cryotherapy. Number: 2 Location: as above Discussed procedure and expectations including risks (including risk of hypopigmentation) and benefits. Verbal consent obtained. Lesion pared with a #15 blade. Lesion then frozen with LN2, 15-30 second thaw time, TWICE. There were no complications; the [...] an emery board or pumice stone. - Jxlg-pyv-gfiahus salicylic acid creams or lotions (Compound W, Dr. Shah's Cordova Removers) applied daily for 4-6 weeks recommended RTC: In one month for follow-up Note initiated by SUJATA Blake. I, SUJATA Blake, have performed the documentation for this encounter in the presence of and acting as a scribe for Edmond Howell MD. I performed the services which were documented by the scribe, and I agree with the accuracy of the documentation in this encounter. Edmond Howell MD Reviewed and signed by Edmond Howell MD Resident in Dermatology [facility] Patient seen in conjunction with staff industrial economics professor: Samuel Collins MD Section of Dermatology [facility] * Carrie Collins MD - 11/20/2019 4:00 PM EST I directly supervised Dr. Howell during this office visit. Dr. Howell presented the history and physical exam to me. I then saw and examined this patient with Dr. Howell. We reviewed the history and pertinent details and I confirmed the physical findings. I agree with the details of the history andphysical exam as documented in Dr. Howell's note. CARRIE COLLINS MD Staff Physician documented in this encounter Plan of Treatment Scheduled Procedures Name Priority Associated Diagnoses Date/Ti ut COLONOSCOPY, DIAGNOSTIC (WRV U 3.26) Encounter for colorectal cancer screening documented as of this encounter Visit Diagnoses Diagnosis Viral warts, unspecified type Cord[place] Corns and callosities documented in this encounter Care Teams Fleet Assistant Relationship Specialty Start Date End Date Susan Elise ND PCP - General Naturopathic Medicine 11/20/19 01/05/20 documented as of this encounter
--- OUTSIDE RECORDS SUMMARY | 2024-06-27 15:16 | XMS_ITS | Encounter Summary ---
[place] [address] Care Team Providers Care Singer And Unloader Name Role Phone April Cummins APRN Primary Care Provider [phone] Reason for Visit * Reason Onset Date Comments Medication Refill 03/11/2019 Encounter Details Date Type Department Care Team (Late st Contact Info) Description 03/11/2019 [place] [address] Beth Guerra APRN [address] [place] [address] Social History Tobacco Use Types Packs/Day Years [...] on filedocumented in this encounter Care Teams Singer And Unloader Relationship Specialty Start Date End Date April Cummins APRN [address] [place] [address] PCP - General Internal Medicine 01/13/21 documented as of this encounter
--- OUTSIDE RECORDS SUMMARY | 2024-06-27 15:16 | XMS_ITS | Encounter Summary ---
Author Organization [facility] [place] [address] Care Team Providers Care Puppy Trainer Name Role Phone April Cummins Tanvir HENLEY Primary Care Provider + [phone] Reason for Visit * Auth/Cert Specialty Diagnoses / Procedures Referred By Rafael mart Referred To Contact Diagnoses Tibia fracture Trauma Procedures ER IPI Admit Referral ID Status Reason Start Date Expiration Date Visits Re quested Visits Authorized [id number] 1 1 Encounter Details Date Type Department Care Team (Late st Contact Info) Description 01/06/2020 7:20 PM EST Anesthesia Event [place] [id number] Kike Kim MD [facility] [place] [address] Anesthesia Record Procedure Summary Procedure Name Responsible Anesthesiologist Anesthesia Start Time Anesthesia Stop Time APPLICATION OF A UNIPLANE, UNILATERAL, EXT FIXATION SYS, LOWER EXTREMITY (WRVU 8.78) (Left: Leg) Kike Kim MD 01/06/20191901/06/202016 Events Date Time Event Comment 01/06/20201919 AN Verify 1919 Start 1919 An Start Data 1922 An Induction 1925 An Intubation 1932 Anesthesia Ready 1939 Procedure Start 2002 Extubation/LMA Out 2016 an stop data 2016 Recovery or ICU Handoff Michelle ent care was transferred to the destination unit staff after review of the patient's medical history, current anesthetic/surgical status and plan, according to the Provider Handoff Checklist. 2017 Stop 2319 Meds Name Total fentaNYL 100 mcg IV Lidocaine 80 mg Propofol 150 mg Ondansetron 8 mg Dexamethasone 8 mg Succinylcholine 100 mg ceFAZolin 2 g Dexmedetomidine 8 mcg lactated ringers infusion 400 mL * Agents Name O2 Air N2O Sevoflurane (et) * Blood No blood administrations on file. 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; lumen/catheter not patent, catheter/device intact, site care per policy/procedure; 01/07/20; 1515 01/06/20 1602 by Shraddha Grullon RN 01/07/20 151 by Raymond Wong RN Urethral Catheter 01/06/20; 1602; Physician order; Prolonged Immobilization; indwelling single lumen catheter; present on admission to this facility; 01/09/20; 92101/06/20 1602 by Shraddha Grullon RN 01/09/20 09 by Shavonne Wilkins LNA ETT Mask Ventilation: No t Attempted (0); ETT Type: Cuffed, Oral; ETT Size: 7 mm; Mac Blade: 3; Notes: Asleep, Pre-O2, RSI, Cricoid Pressure, Stylette; Attempts: 1; Laryngoscopy Grade: 1; ETT Placement Verified By: Auscultation, Capnometry, Visual; Secured at Teeth: 20 cm; Inserted by: eva roy; Removal Date: 01/06/20; Removal Time: 200201/06/20 192 by Elio Roy CRNA 01/06/202002 by Elio Roy CRNA External Fixator 01/06/20; 2008; LLE; 01/08/20; 1355 01/06/202008 by Kena Brush RN 01/08/20 135 by Eugenie Seaman RN documented in this encounter Social History [...] OR Notes * Anesthesia Postprocedure Evaluation - Kike Kim MD - 01/06/2020 11:19 PM EST Department of Anesthesiology Post-procedure Note Patient: Kalyn Darnell Case Procedure Summary Date: 01/06/20 Room / [facility] Anesthesia Start: 1919 Anesthesia Stop: 2016 Procedure: APPLICATION OF A UNIPLANE, UNILATERAL, EXT FIXATION SYS, LOWER EXTREMITY (WRVU 8.78) (Left Leg) Diagnosis: (proximal tibia fracture) Surgeon: Yolanda Still MD Responsible Provider: Kike Kim MD Anesthesia Type: general ASA Status: 2 All Anesthesia Providers: Anesthesiologist: Kike Kim MD BEAD PREPARER: Elio Roy CRNA Vitals Value Taken Time BP 127/69 01/06/2020 9:30 PM Temp 37.1 ??C (98.8 ??F) 01/06/2020 8:05 PM Pulse 75 01/06/2020 9:41 PM Resp 28 01/06/2020 9:41 PM SpO2 99 % 01/06/2020 9:53 PM Pain Level 6 01/06/2020 8:57 PM Vitals shown include unvalidated device data. Patient Location: PACU/[facility] Level of Consciousness: Awake and Alert Pain Management: Satisfactory Analgesia PONV: None Cardiovascular Status: Hemodynamically Stable and At Baseline Respiratory Status: Room Air and At Baseline Postoperative Fluid Status: Intravascular EUvolemia Possible Anesthetic Complications: NONE apparent at time of evaluation Final Primary Anesthesia Type: General (The anesthetic type performed was the same as planned.) Comments: * Anesthesia Preprocedure Evaluation - Daisy Lentz MD [...] not on meds). Denies kidney or hepatic issues. No recent cough, cold, or fever. Denies problems with anesthesia although she does state that she wakes up mad. Denies FHx of MH. Denies issues with PONV, motion sickness or perioperative [...] Site ceFAZolin (ANCEF) 1g in dextrose 5% 50mL PRN, Starting on Sun01/06/20 at 1933, Until Sun01/06/20 at 2016, Administer over 30 Minutes, Anesthesia Intra-op Given 01/06/2020 7:33 PM EST 2 g dexamethasone (DECADRON) injection PRN, Starting on Sun01/06/20 at 1923, Until Sun01/06/20 at 2016, Anesthesia Intra-op, Routine Given 01/06/2020 7:23 PM EST 8 mg dexmedetomidine (PRECEDEX) injection PRN, Starting on Sun01/06/20 at 1920, Until Sun01/06/20 at 2017, Anesthesia Intra-op, Routine Given 01/06/2020 7:20 PM EST 8 mcg fentaNYL 50 mcg/mL multi-dose injection PRN, Starting on Sun01/06/20 at 192, Until Sun01/06/20 at 2016, Anesthesia Intra-op, Routine Given 01/06/2020 8:11 PM EST 50 mcg Given 01/06/2020 8:04 PM EST 25 mcg Given 01/06/2020 7:21 PM EST 25 mcg lactated ringers infusion 75 mL/hr, Intravenous, CONTINUOUS, Starting on Sun01/06/20 at 1709, Until Sun01/09/20 at 1854 New Bag 01/09/2020 8:10 AM EST 75 mL/hr 75 mL /hr New Bag 01/08/2020 12:21 AM EST 75 mL/hr 75 mL/hr New Bag 01/07/2020 10:21 AM EST 75 mL/hr 75 mL/hr lidocaine (PF) (XYLOCAINE) 100 mg/5 mL (2 %) injection PRN, Starting on Sun01/06/20 at 192, Until Sun01/06/20 at 2017, Anesthesia Intra-op, Routine Given 01/06/2020 7:23 PM EST 80 mg ondansetron (ZOFRAN) injection PRN, Starting on Sun01/06/20 at 1936, Until Sun01/06/20 at 2017, Anesthesia Intra-op, Routine Given 01/06/2020 7:52 PM EST 4 mg Given 01/06/2020 7:36 PM EST 4 mg propofol (DIPRIVAN) 10 mg/mL bolus injection (Anesthesia) PRN, Starting on Sun01/06/20 at 192, Until Sun01/06/20 at 2017, Anesthesia Intra-op Given 01/06/2020 7:23 PM EST 150 mg succinylcholine chloride (Quelicin) injection PRN, Starting on Sun01/06/20 at 192, Until Sun01/06/20 at 2017, Anesthesia Intra-op, Routine Given 01/06/2020 7:23 PM EST 100 mg documented in this encounter Care Teams Puppy Trainer Relationship Specialty Start Date End Date April Cummins APRN [address] [facility] [place] [address] PCP - General Internal Medicine 01/06/20 05/20/20 documented as of this encounter
--- OUTSIDE RECORDS SUMMARY | 2024-06-27 15:16 | XMS_ITS | Encounter Summary ---
Author Organization [facility] [place] [address] Care Team Providers Care Classification Officer Name Role Phone April Cummins APRN Primary Care Provider + [phone] Reason for Visit * Reason Comments Allergies * Consultation (Routine) - Closed Specialty Diagnoses / Procedures Referred By Rafael mart Referred To Contact Allergy Diagnoses ENVIRONMENTAL ALLERGY, HX HIVES April Cummins, APPLIANCES SAMPLE MAKER [address] [place] [address] [facility] [address] [place] [phone] Referral ID Status Reason Start Date Expiration Date V isits Requested Visits Authorized [id number] Closed Consult, Test & Treat Connection Center 01/20/2019 01/20/2020 1 1 Encounter Details Date Type Department Care Team (Late st Contact Info) Description 01/31/2019 2:00 PM EST [place] [address] Shavonne Brink MD [facility] [address] [address] Allergic rhinitis, unspecified seasonality, unspecified trigger; Rash; Neck mass Social History Tobacco Use Types Packs/Day Years [...] EST documented in this encounter Patient Instructions * Patient Instructions* Shavonne Brink MD - 01/31/2019 2:00 PM [...] a referral if this interests you. Sometimes contactallergies can cause hand eczema as well. Return [...] clothes documented in this encounter Progress Notes * Shavonne Brink MD - 01/31/2019 2:00 PM EST CC: allergies HPI: Kalyn Burgos is a 58 y.o. female with a PMH of nepholithiasis presenting for evaluation of allergies at the request of April Cummins. The patient reports that she has lived in this area since 2013. [place], sore throat, itchy [...] mg Tablet ??? Ciclesonide (OMNARIS) 50 mcg [place], Non-Aerosol ??? 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 There is no central a/c. There is not a woodstove. The patient has seen mice around the home. There is [...] lesions, erythema, or drainage. Conjunctiva not injected. Nasalpassages show dry pink turbinates bilaterally. OP clear [...] Saline (0, 2) Glycerine (3, 4) D. [place] (-), D. Pteronyssinus (-) Cat (-), Dog (-), Cockroach (+/-) Juan F Grass (+), [place] (+), Orchard Grass (+), Shorty Grass (+), B[place] (-) Chandler (-), Mohan (-), Birch (-), [place] (-), [place], Eastern Red (-), Elm (-) [place] (-), Maple (+/-), [place] (-), [place] (-), [place] (-), East. [place] (-) Cocklebur (+/-), Mugwort (-), Pigweed (-), Ragweed, giant (+/-), Sheep Tamms (- ), Plantain (+/-) Aspergillus Mix (-), [...] was going on at the time she experienced this, I don't think it is allergic in [...] Procedure Name Priority Date/Time Associated Diagnosis Comments ALLERGY SCAN 02/21/2019 12:00 AM EDT documented in this encounter Results * SCAN DOC: ALLERGY (02/21/2019 12:00 AM EDT) Narrative 02/21/2019 12:00 AM EDT Ordered by an unspecified provider. Scanning Provider MEDIA MGR SCAN EXT O RDR/RSLT documented in this encounter Visit Diagnoses Diagnosis Allergic rhinitis, unspecified seasonality, unspecified trigger Rash Rash and other nonspecific skin eruption Neck mass Swelling, mass, or lump in head and neck documented in this encounter Care Teams Classification Officer Relationship Specialty Start Date End Date April Cummins, APPLIANCES SAMPLE MAKER [address] [place] [address] PCP - General Internal Medicine 11/06/18 11/19/19 documented as of this encounter
--- OUTSIDE RECORDS SUMMARY | 2024-06-27 15:16 | XMS_ITS | Encounter Summary ---
[place] [address] Care Team Providers Care Market Garden Worker Name Role Phone Susan Elise ND Primary Care Provider [phone] Encounter Details Date Type Department Care Team (Late st Contact Info) Description 05/03/2018 4:00 PM EDT Tech [place] [address] Beth York, [address] [place] [address] Bloating; Small intestinal bacterial overgrowth Social History Tobacco [...] as of this encounter Progress Notes * Beth York APRN - 05/03/2018 4:00 PM [...] bacterial overgrowth(SIBO). 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 There is anearly and significant rise in hydrogen production at 60 minutes. This meets criteria for small intestinal bacterial overgrowth. ?? Signed, Beth York APRN Gastroenterology and Hepatology [place] [id number] P: [phone] F: [phone] Copy: Beth Elise ND Clinical interpretation is based on the [place] consensus on breath testing published in theAmerican Journal of Gastroenterology, 2017. A rise in production of hydrogen or methane greater than 20 ppm or 10 ppm respectively from baseline levels within 90 minutes is consistent with small intestinal bacterial overgrowth. documented in this encounter Plan of Treatment Scheduled Procedures Name Priority Associated Diagnoses Date/Ti nc COLONOSCOPY, DIAGNOSTIC (WRV U 3.26) Encounter for colorectal cancer screening documented as of this encounter Visit Diagnoses Diagnosis Bloating Flatulence, eructation, and gas pain Small intestinal bacterial overgrowth documented in this encounter Care Teams Market Garden Worker Relationship Specialty Start Date End Date Susan Elise ND PCP - General Naturopathic Medicine 02/28/18 8 documented as of this encounter
--- OUTSIDE RECORDS SUMMARY | 2024-06-27 15:16 | XMS_ITS | Encounter Summary ---
[place] [address] Care Team Providers Care Aviation Safety Technician Name Role Phone April Cummins APRN Primary Care Provider [phone] Encounter Details Date Type Department Care Team (Late st Contact Info) Description 02/13/2019 [place] [address] Ad Dodge, STEWARD/STEWARDESS CHIEF CARGO VESSEL Social History Tobacco Use Types Packs/Day Years [...] on filedocumented in this encounter Care Teams Aviation Safety Technician Relationship Specialty Start Date End Date April Cummins APRN [address] [place] [address] PCP - General Internal Medicine 11/06/18 11/19/19 documented as of this encounter
--- OUTSIDE RECORDS SUMMARY | 2024-06-27 15:16 | XMS_ITS | Encounter Summary ---
Author Organization [facility] [place] [address] Care Team Providers Care Application Architect Name Role Phone April Cummins KALE Primary Care Provider [phone] Encounter Details Date Type Department Care Team (Late st Contact Info) Description 02/07/2019 Ancillary Procedure [place] [address] Rosemary Ray APRN [facility] [place] [address] Social History Tobacco Use Types Packs/Day Years [...] FILM LIBRARY STORAGE ONLY ULTRASOUND STUDY Routine 02/07/2019 12:00 AM EDT documented in this encounter Results * Film Library- Storage Only Ultrasound Study (02/07/2019 12:00 AM EDT) Narrative RAD - 02/09/2019 6:21 AM EDT This exam is auto-finalizing. It's purpose is for storage only. Rosemary Ceron APRN IMG FILM LIBRAR Y ORDERABLES [place], [place] documented in this encounter Visit Diagnoses Not on filedocumented in this encounter Care Teams Application Architect Relationship Specialty Start Date End Date April Cummins APRN [address] [place] [address] PCP - General Internal Medicine 11/06/18 11/19/19 documented as of this encounter
--- OUTSIDE RECORDS SUMMARY | 2024-06-27 15:16 | XMS_ITS | Encounter Summary ---
[place] [address] Care Team Providers Care Group Art Supervisor Name Role Phone April Cummins APRN Primary Care Provider [phone] Reason for Visit * Reason Comments Medication Refill Encounter Details Date Type Department Care Team (Late st Contact Info) Description 09/01/2019 [place] [address] Shavonne Brink MD [facility] DR [address] [place] [address] Social History Tobacco Use Types Packs/Day Years [...] on filedocumented in this encounter Care Teams Group Art Supervisor Relationship Specialty Start Date End Date April Cummins APRN [address] [place] [address] PCP - General Internal Medicine 11/06/18 11/19/19 documented as of this encounter
--- OUTSIDE RECORDS SUMMARY | 2024-06-27 15:17 | XMS_ITS | Encounter Summary ---
Author Organization [facility] Address [facility] [place] [address] Care Team Providers Care Electrician Apprentice Powerhouse Name Role Phone Connie Gayle ND Primary Care Provider [phone] Encounter Details Date Type Department Care Team (Latest Contact Info) Description 02/16/2016 9:00 AM EDT - 02/16/2016 11:59 PM EDT Hospital Encounter XRay at [address] [place] [address] Eusebio Dominguez MD [facility] [place] [address] Displaced fracture of distal end of right ulna, initial encounter Discharge Disposition: Home Social History Tobacco [...] Name Priority Date/Time Associated Diagnosis Comments XR WRIST 3 VIEWS RIGHT Routine 02/16/2016 10:08 AM EDT Displaced fracture of distal end of right ulna, initial encounter documented in this encounter Results * XR wrist complete minimum 3 views Right (GENERIC) (02/16/2016 10:08 AM EDT) Anatomical Region Laterality Modality Right Digital Radiogra phy Impressions 02/16/2016 10:26 AM EDT IMPRESSION: Healing distal ulnar diaphyseal fracture. Narrative 02/16/2016 10:26 AM EDT EXAMINATION: XR WRIST COMPLETE MINIMUM 3 VIEWS RIGHT CLINICAL HISTORY: Follow up distal 1/3 ulnar fx TECHNIQUE: 3 views right wrist COMPARISON: February 03, 2016 FINDINGS: Healing comminuted distal ulnar diaphyseal fracture. Periosteal healing noted. Anatomic alignment. Procedure Note Judd Mccullough MD - 02/16/2016 EXAMINATION: XR WRIST COMPLETE MINIMUM 3 VIEWS RIGHT CLINICAL HISTORY: Follow up distal 1/3 ulnar fx TECHNIQUE: 3 views right wrist COMPARISON: February 03, 2016 FINDINGS: Healing comminuted distal ulnar diaphyseal fracture. Periosteal healing noted. Anatomic alignment. IMPRESSION IMPRESSION: Healing distal ulnar diaphyseal fracture. Eusebio Dominguez MD IMG DX ORDERABLES documented in this encounter Visit Diagnoses Diagnosis Displaced fracture of distal end of right ulna, initial encounter documented in this encounter Care Teams Electrician Apprentice Powerhouse Relationship Specialty Start Date End Date Connie Gayle ND PCP - General Naturopathic Medicine 01/25/16 09/27/17 documented as of this encounter
--- OUTSIDE RECORDS SUMMARY | 2024-06-27 15:17 | XMS_ITS | Encounter Summary ---
Author Organization [facility] Address [facility] [place] [address] Care Team Providers Care Newswriter Name Role Phone Connie Gayle ND Primary Care Provider [phone] Encounter Details Date Type Department Care Team (Latest Contact Info) Description 04/05/2016 9:00 AM EDT - 04/05/2016 11:59 PM EDT Hospital Encounter XRay at [address] [place] [address] Eusebio Dominguez MD [facility] [place] [address] Displaced fracture of distal end of right ulna, sequela Discharge Disposition: Home Social History Tobacco Use [...] Sig Dispensed Refills Start Date End Date HYDROcodone-acetaminophe n (NORCO) 5-325 mg TabletIndications:Displa see fracture of distal end of right ulna, sequela Take 1 tablet by mouth every 6 hours as needed for Pain. 15 tablet 0 03/08/2016 04/21/2016 documented as of this encounter Plan of Treatment Scheduled Procedures Name Priority Associated Diagnoses Date/Ti me COLONOSCOPY, DIAGNOSTIC (WRV U 3.26) Encounter for colorectal cancer screening documented as of this encounter Procedures Procedure Name Priority Date/Time Associated Diagnosis Comments XR WRIST 3 VIEWS RIGHT Routine 04/05/2016 9:56 AM EDT Displaced fracture of distal end of right ulna, sequela documented in this encounter Results * XR wrist complete minimum 3 views Right (GENERIC) (04/05/2016 9:56 AM EDT) Anatomical Region Laterality Modality Right Digital Radiogra phy Impressions 04/05/2016 10:28 AM EDT IMPRESSION: Increased healing of distal ulnar fracture. Narrative 04/05/2016 10:28 AM EDT EXAMINATION: XR WRIST COMPLETE MINIMUM 3 VIEWS RIGHT CLINICAL HISTORY: Follow up distal ulnar fx TECHNIQUE: 3 views right wrist COMPARISON: March 08, 2016 FINDINGS: Healing distal ulnar fracture. Extent of healing has increased since the previous study. The alignment is stable and anatomic. Diffuse disuse demineralization. Procedure Note Judd Mccullough MD - 04/05/2016 EXAMINATION: XR WRIST COMPLETE MINIMUM 3 VIEWS RIGHT CLINICAL HISTORY: Follow up distal ulnar fx TECHNIQUE: 3 views right wrist COMPARISON: March 08, 2016 FINDINGS: Healing distal ulnar fracture. Extent of healing has increased since the previous study. The alignment is stable and anatomic. Diffuse disuse demineralization. IMPRESSION IMPRESSION: Increased healing of distal ulnar fracture. Eusebio Dominguez MD IMG DX ORDERABLES documented in this encounter Visit Diagnoses Diagnosis Displaced fracture of distal end of right ulna, sequela documented in this encounter Care Teams Newswriter Relationship Specialty Start Date End Date Connie Gayle ND PCP - General Naturopathic Medicine 01/25/16 09/27/17 documented as of this encounter
--- OUTSIDE RECORDS SUMMARY | 2024-06-27 15:17 | XMS_ITS | Encounter Summary ---
Author Organization [facility] [place] [address] Care Team Providers Care Automotive Engineering Technician Name Role Phone Rosita Cumminsyce Tanvir HENLEY Primary Care Provider [phone] Encounter Details Date Type Department Care Team (Latest Contact Info) Description 01/27/2018 8:31 PM EST - 01/27/2018 11:59 PM EST Hospital [place] [address] Discharge Disposition: Home Social History Tobacco Use [...] Procedure Name Priority Date/Time Associated Diagnosis Comments CRYPTOSPORIDIUM OOCYST ANTIGEN ([facility]/CGP/APD) Routine 01/27/2018 8:35 PM EST FULL OVA AND PARASITES EXAM Routine 01/27/2018 8:35 PM EST GIARDIA ANTIGEN ([facility]/CGP/APD/[facility]) Routine 01/27/2018 8:35 PM EST documented in this encounter Results * Full Ova and Parasites Exam (01/27/2018 8:35 PM EST) Ova & Parasite Stool No ova or parasites seen. [facility] Stool specimen (specimen) 01/27/2018 8:35 PM EST 01/28/2018 8:38 PM EST Narrative Resulting Agency Comment Spec In Lab Beth Gregoryqasimtasha CONCRETE FENCE BUILDER MICROBIOLOGY - G ENERAL ORDERABLES Performing Organization Address City/[facility]/ZIP Co de Phone Number [facility] [place] [address] * Cryptosporidium Oocyst Antigen ([facility]eb/CGP) (01/27/2018 8:35 PM EST) Cryptosporidium Screen Negative Negative [facility] Stool specimen (specimen) Stool / Unknown 01/27/2018 8:35 PM EST 01/28/2018 8:38 PM EST Narrative Resulting Agency Comment Spec In Lab Beth Gregoryqasimtasha CONCRETE FENCE BUILDER MICROBIOLOGY - G ENERAL ORDERABLES Performing Organization Address City/[facility]/ZIP Co de Phone Number [facility] [place] [address] * Giardia antigen ([facility]eb/CGP) (01/27/2018 8:35 PM EST) Giardia Screen Negative Negative [facility] Comment:Examination for othe r intestinal parasites requires foreign travel history. Stool specimen (specimen) Stool / Unknown 01/27/2018 8:35 PM EST 01/28/2018 8:38 PM EST Narrative Resulting Agency Comment Spec In Lab Beth Guerra CONCRETE FENCE BUILDER MICROBIOLOGY - G ENERAL ORDERABLES [facility] [place] [address] documented in this encounter Visit Diagnoses Not on filedocumented in this encounter Care Teams Automotive Engineering Technician Relationship Specialty Start Date End Date April Cummins APRN [address] [place] [address] PCP - General Internal Medicine 09/28/17 02/27/18 documented as of this encounter
--- OUTSIDE RECORDS SUMMARY | 2024-06-27 15:17 | XMS_ITS | Encounter Summary ---
[place] [address] Care Team Providers Care Radiation Technician Name Role Phone Connie Gayle SUDEEP Primary Care Provider [phone] Reason for Visit * Reason Onset Date Comments Injections 05/11/2016 Encounter Details Date Type Department Care Team (Late st Contact Info) Description 05/11/2016 Telephone [place] [id number] Eusebio Dominguez MD [facility] [place] [address] Injections Social History Tobacco Use Types Packs/Day Years [...] encounter Miscellaneous Notes * Telephone Encounter - Lenny Bear - 05/15/2016 10:32 AM EDT Patient called and was scheduled here * Telephone Encounter - Sarah Scott - 05/11/2016 1:55 PM EDT Patient cannot have injection at [facility] in radiology. Per [facility] they could schedule afollow up with Dr Martinez, and if he felt injection was needed he could perform the injection. If she did not want to see Dr Martinez we could either find another facility she wanted to go to for the injection, or schedule next available here. Dr Dominguez stated he was ok with which ever option she chose. LM#1 to discuss injection options with patient. documented in this encounter Plan of Treatment Scheduled Procedures Name Priority Associated Diagnoses Date/Ti me COLONOSCOPY, DIAGNOSTIC (WRV U 3.26) Encounter for colorectal cancer screening documented as of this encounter Visit Diagnoses Not on filedocumented in this encounter Care Teams Radiation Technician Relationship Specialty Start Date End Date Connie Gayle ND PCP - General Naturopathic Medicine 01/25/16 09/27/17 documented as of this encounter
--- OUTSIDE RECORDS SUMMARY | 2024-06-27 15:17 | XMS_ITS | Encounter Summary ---
[place] [address] Care Team Providers Care Charger Name Role Phone Connie Gayle SUDEEP Primary Care Provider [phone]- [phone] Reason for Referral * Diagnostic Test (Routine) - Closed Specialty Diagnoses / Procedures Referred By Contac t Referred To Contact Radiology Diagnoses Displaced fracture of distal end of right ulna, sequela Procedures MRI Cervical Spine WO Contrast (GENERIC) Eusebio Dominguez MD [facility] [place] [address] [place] [address] Referral ID Status Reason Start Date Expiration Date V isits Requested Visits Authorized [id number] Closed Specialty Service Requested 04/05/2016 07/04/2016 1 1 Reason for Visit * Diagnostic Test (Routine) - Closed Specialty Diagnoses / Procedures Referred By Contac t Referred To Contact Radiology Diagnoses Displaced fracture of distal end of right ulna, sequela Procedures MRI Cervical Spine WO Contrast (GENERIC) Eusebio Dominguez MD [facility] [place] [address] [place] [address] Referral ID Status Reason Start Date Expiration Date V isits Requested Visits Authorized [id number] Closed Specialty Service Requested 04/05/2016 07/04/2016 1 1 Encounter Details Date Type Department Care Team (Latest Contact Info) Description 04/14/2016 7:10 PM EDT - 04/14/2016 11:59 PM EDT Hospital Encounter MRI at [facility] [place] [address] Eusebio Dominguez MD [facility] [place] [address] Displaced fracture of distal end of right [...] Name Priority Date/Time Associated Diagnosis Comments MRI CERVICAL SPINE WO CONTRAST Routine 04/14/2016 8:09 PM EDT Displaced fracture of distal end of right ulna, sequela documented in this encounter Results * MRI Cervical Spine WO Contrast (GENERIC) (04/14/2016 8:09 PM EDT) Anatomical Region Laterality Modality C-spine Magnetic Resonan ce Impressions 04/16/2016 9:05 AM EDT 1. ??Focal myelomalacia at C4-5. 2. ??On the right, uncovertebral osteophyte projecting within the C3-4 neural foramen may contact the exiting right C4 nerve root. There is also moderate to severe right C6-7 neural foraminal narrowing. Narrative 04/16/2016 9:05 AM EDT EXAMINATION: MRI CERVICAL SPINE WO CONTRAST CLINICAL HISTORY: Has had prior C spine at C4-6 in past and now R sided arm and hand pain TECHNIQUE: MRI cervical spine performed without contrast COMPARISON: Cervical spine radiographs 01/19/2016 FINDINGS: Alignment is unchanged with slight reversal at C3. C4-C6 ACDF. The regional bone marrow is normal in signal. The vertebral body heights are maintained. At the C4-5 level, there is focal signal alteration and decreased caliber of the cord consistent with myelomalacia. Otherwise, this cervical cord is normal in signal and caliber. The prevertebral soft tissues are normal in thickness. Findings at individual levels: C2-C3: ??Normal. C3-C4: ??Reversal of curvature mild to moderately narrows the spinal canal. Right larger than left uncovertebral osteophytes. Osteophytic spur projects into the center of the right neural foramen and appears to contact the exiting C4 nerve root. There is mild left neural foraminal narrowing. C4-C5: ??Mild facet arthropathy. No significant spinal canal narrowing. Mild right neural foraminal narrowing. Left-sided uncovertebral arthropathy contributes to moderate neural foraminal narrowing. ? C5-C6: ??Mild facet arthropathy and left larger than right uncovertebral osteophytes contribute to moderate to severe left and mild right neural foraminal narrowing. No significant spinal canal narrowing. C6-C7: ??Posterior disc osteophyte complex mildly narrows the spinal canal. Prominent uncovertebral osteophytes and mild facet arthropathy contribute to moderate to severe bilateral neural foraminal narrowing. C7-T1: ??Small central disc protrusion mildly indents the ventral thecal sac. Small left uncovertebral osteophytes mildly narrow the left neural foramen. No significant right neural foraminal narrowing. Procedure Note Carmen Noel MD - 04/16/2016 EXAMINATION: MRI CERVICAL SPINE WO CONTRAST CLINICAL HISTORY: Has had prior C spine at C4-6 in past and now R sidedarm and hand pain TECHNIQUE: MRI cervical spine performed without contrast COMPARISON: Cervical spine radiographs 01/19/2016 FINDINGS: Alignment is unchanged with slight reversal at C3. C4-C6 ACDF. Theregional bone marrow is normal in signal. The vertebral body heights aremaintained. At the C4-5 level, there is focal signal alteration and decreased caliber ofthe cord consistent with myelomalacia. Otherwise, this cervical cord is normalin signal and caliber. The prevertebral soft tissues are normal inthickness. Findings at individual levels: C2-C3: Normal. C3-C4: Reversal of curvature mild to moderately narrows the spinal canal.Right larger than left uncovertebral osteophytes. Osteophytic spur projects intothe center of the right neural foramen and appears to contact the exiting [id number] root. There is mild left neural foraminal narrowing. C4-C5: Mild facet arthropathy. No significant spinal canal narrowing.Mild right neural foraminal narrowing. Left-sided uncovertebral arthropathy contributes to moderate neural foraminal narrowing. C5-C6: Mild facet arthropathy and left larger than right uncovertebral osteophytes contribute to moderate to severe left and mild right neural foraminal narrowing. No significant spinal canal narrowing. C6-C7: Posterior disc osteophyte complex mildly narrows the spinalcanal. Prominent uncovertebral osteophytes and mild facet arthropathy contributeto moderate to severe bilateral neural foraminal narrowing. C7-T1: Small central disc protrusion mildly indents the ventral thecalsac. Small left uncovertebral osteophytes mildly narrow the left neuralforamen. No significant right neural foraminal narrowing. IMPRESSION 1. Focal myelomalacia at C4-5. 2. On the right, uncovertebral osteophyte projecting within the C3-4neural foramen may contact the exiting right C4 nerve root. There is alsomoderate to severe right C6-7 neural foraminal narrowing. Eusebio Dominguez MD IMG MRI ORDERABLE S documented in this encounter Visit Diagnoses Diagnosis Displaced fracture of distal end of right ulna, sequela documented in this encounter Care Teams Charger Relationship Specialty Start Date End Date Connie Gayle ND PCP - General Naturopathic Medicine 01/25/16 09/27/17 documented as of this encounter
--- OUTSIDE RECORDS SUMMARY | 2024-06-27 15:17 | XMS_ITS | Encounter Summary ---
[place] [address] Care Team Providers Care Forest Ranger Name Role Phone April Cummins APRN Primary Care Provider Encounter Details Date Type Department Care Team (Late st Contact Info) Description 11/29/2017 Orders Only [place] [address] Beth Guerra APRN [address] [place] [address] Social History Tobacco Use Types Packs/Day Years [...] on filedocumented in this encounter Care Teams Forest Ranger Relationship Specialty Start Date End Date April Cummins APRN [address] [place] [address] PCP - General Internal Medicine 09/28/17 02/27/18 documented as of this encounter
--- OUTSIDE RECORDS SUMMARY | 2024-06-27 15:17 | XMS_ITS | Encounter Summary ---
[place] [address] Care Team Providers Care Dietetics Professor Name Role Phone Connie Gayle ND Primary Care Provider +1- [phone] Reason for Visit * Reason Comments Dizziness LOC Encounter Details Date Type Department Care Team ([facility] st Contact Info) Description 02/03/2016 11:32 AM EST - 02/03/2016 2:17 PM EST [place] [address] Jinny Farfan MD [address] [place] [address] [place] [address] Vasovagal syncope Discharge Disposition: Home Social History Tobacco Use [...] 36.8 ??C (98.2 ??F) 02/03/2016 2:00 PM ES T Respiratory Rate 12 02/03/2016 12:30 PM EST Oxygen Saturation 97% 02/03/2016 2:00 PM EST Inhaled Oxygen Concentration - - Weight 56.7 kg (125 lb) 02/03/2016 11:44 AM EST Height 167.6 cm (5' 6) 02/03/2016 11:44 AM EST Body Mass Index 20.18 02/03/2016 11:44 AM EST documented in this encounter Discharge Instructions * Discharge Instructions* Judd Deluna MD - 02/03/2016 1:58 PM EST Images from the original note were not included. [facility] Fainting: After Your Visit Your Care Instructions When you faint, or pass out, you lose consciousness for a short time. A brief drop in blood flow tothe brain often causes it. When you fall or lie down, more blood flows to your brain and you regainconsciousness. Emotional stress, pain, or overheating--especially if you have been standing--can make you faint. In these cases, fainting is usually not serious. But fainting can be a sign of a more serious problem. Your doctor may want you to have more tests to rule out other causes. The treatment you need depends on the reason why you fainted. The doctor has checked you carefully, but problems can develop later. If you notice any problems ornew symptoms, get medical treatment right away. Follow-up care is a shah part of your treatment and safety. Be sure to make and go to all appointments, and call your doctor if you are having problems. It's also a good idea to know your test resultsand keep a list of the medicines you [...] Passing out. After you call 911, the slubber operator may tell you to chew 1 adult-strength or 2 to 4 low-dose aspirin. Wait for an ambulance. Do not try to drive yourself. ?? You have symptoms of a stroke. These may include: ?? Sudden numbness, tingling, weakness, or loss of movement in your face, arm, or leg, especially on only one side of your body. ?? Sudden [...] more? Visit our health information library at [email or web address] You can also view health information on [employer], your personal patient account. Log in or sign up today. Enter [id number] in the search box to learn more about Fainting: After Your Visit. ?? [id number] [employer]. Care instructions adapted under license by [facility]. This care instruction is for use with your licensed healthcare professional. If you have questions about a medical condition or this instruction, always ask your healthcare professional. [employer] disclaims any warranty or liability for your use of this information. Content Version: 10.4.102205; Current as of: August 04, 2014 documented in this encounter ED Notes * Hazel Ragland RN - 02/03/2016 2:16 PM EST Pt in wheelchair pushed by son and brought back to ortho clinic for casting, ambulated to bathroom steady on feet denies any currently dizziness * Hazel Ragland RN - 02/03/2016 2:04 PM EST Per resident Samuel Hughes pt to go back to ortho clinic * Hazel Ragland RN - 02/03/2016 1:35 PM EST EKG completed and pt ambulated to bathroom with tech, steady on feet, denies any dizziness, back tobed,resting comfortable at this time, son at bedside * Hazel Ragland RN - 02/03/2016 1:10 PM EST Orthopedic attending in to see pt, awaiting dispo * Hazel Ragland RN - 02/03/2016 12:16 PM EST MD at bedside, awaiting dispo * Jinny Farfan MD - 02/03/2016 12:12 PM [...] confusion, vision or speech changes, cough, sore throat, SOB, CP or palpitations, abd pain, v/d/c, dysuria, [...] exhibits no distension. There is no tenderness. Thereis no rebound, no guarding and no CVA [...] I considered: 1. ACS: No ST changes 2.Tachy-jus: No blocks 3. WPW: No delta wave 4. Brugada: No RSR'; R-bundle appearance 5. HCM: No LVH; needle Qs/ T-wave inversions 6. Short/ Long QT: [...] mcL Appearance UA Hazy (A) Clear Spec [place] UA 1.009 1.002 - 1.030 Color UA [...] stressors described in the HPI and her bradycardia.I also considered a cardiac etiology, however her EKG showed no concerning features as discussed above. I also considered a neurologic etiology, however she had no focal neuro deficits on exam. Givenher low BP in the setting of eating and drinking less than normal, I gave her some fluids. UA showed no e/o of UTI or hematuria concerning for stone. She was hemodynamically stable and in NAD throughout her stay. Plan: - Follow up with PCP and ortho re: arm - Return precautions were verbally discussed with the patient and written in the discharge instructions. The patient expressed understanding that she could come back to the ED at any time and agreed to the follow-up plan. Judd Deluna MD Resident 02/03/16 8777 ED ATTENDING ATTESTATION NOTE The patient was [...] plan as described in the resident note above unless noted otherwise below. Brief Summary: 55y/o woman presents after a typical vasovagal episode with syncope. EKG is normal. Labs are normal. She feels better. She is discharged home. Final Assessment: Vasovagal syncope. Discharged home. Jinny Farfan MD 02/05/16 1504 documented in this encounter Miscellaneous Notes * ED Triage - Hazel Ragland RN - [...] with hand swelling noted. Pt is alert and orientated x3, denies any pain and speaking in complete sentences. Pt reports taking oxycodone this am documented in this encounter Plan of Treatment Scheduled Procedures Name Priority Associated Diagnoses Date/Ti me COLONOSCOPY, DIAGNOSTIC (WRV U 3.26) Encounter for colorectal cancer screening documented as of this encounter Procedures Procedure Name Priority Date/Time Associated Diagnosis Comments EKG 12-LEAD STAT 02/03/2016 1:20 PM EST URINALYSIS WITH REFLEX CULTURE STAT 02/03/2016 12:56 PM EST BASSETT TUBE HOLD STAT 02/03/2016 12:29 PM EST HEMOGRAM STAT 02/03/2016 12:29 PM EST DIFFERENTIAL, AUTOMATED STAT 02/03/2016 12:29 PM EST BLUE TUBE HOLD STAT 02/03/2016 12:29 PM EST CBC (WITH DIFF) STAT 02/03/2016 12:29 PM EST BASIC METABOLIC PANEL (NON-FASTING) STAT 02/03/2016 12:29 PM EST documented in this encounter Results * EKG 12 Lead (02/03/2016 1:20 PM EST) Ventricular rate 46 BPM MUSE SYSTEM Atrial Rate 46 BPM MUSE SYSTEM P-R Interval 162 ms MUSE SYSTEM QRS Duration 80 ms MUSE SYSTEM Q-T Interval 468 ms MUSE SYSTEM QTC Calculated (Bezet) 409 ms MUSE SYSTEM Calculated P [place] 50 degrees MUSE SYSTEM Calculated R [place] 21 degrees MUSE SYSTEM Calculated T [place] 38 degrees MUSE SYSTEM INTERPRETATION Marked sinus bradycardia Low voltage QRS Abnormal ECG No previous ECGs available Confirmed by MD JANE, LENY ([id number]) on 02/04/2016 2:07:43 PM MUSE SYSTEM 02/03/2016 1:20 PM EST 02/04/2016 2:07 PM EST Jinny Farfan MD ECG ORDERABLES MUSE SYSTEM * (ABNORMAL) Urinalysis with reflex Culture (02/03/2016 12:56 PM EST) Glucose UA Negative Negative mg/dL [facility] Protein UA Negative Negative mg/dL [facility] Bilirubin UA Negative Negative mg/dL [facility] Comment: Clinical correlation required for positive Urine Bilirubin results as false positive may occur with some drugs and drug related products. If a false positive is suspected a serum total bilirubin should be considered if clinically indicated. Urobilinogen UA Normal Normal mg/dL [facility] pH UA 7.0 5.0 - 8.0 [facility] Blood UA Negative Negative mg/dL [facility] Ketones UA Negative Negative mg/dL [facility] Nitrite UA Negative Negative [facility] Leukocytes UA Negative Negative [facility] Appearance UA Hazy(A) Clear [facility] Spec [place] UA 1.009 1.002 - 1.030 [facility] Color UA Straw Yellow [facility] RBC UA Not Present 0 - 4 /HPF [facility] WBC UA 2 0 - 5 /HPF [facility] CaOx [place] UA Few(A) None /HPF [facility] Culture Reflexed No [facility] Urine specimen (specimen) 02/03/2016 12:56 PM EST 02/03/2016 1:19 PM EST Narrative Resulting Agency Comment Spec In Lab Jinny Farfan MD URINE ORDERABLES Performing Organization Address City/[facility]/ZIP Co de Phone Number [facility] [place] [address] * Bassett Hold (02/03/2016 12:29 PM EST) Bassett Hold Sample in lab. [facility] Blood specimen (specimen) Venous Draw / Unknown 02/03/2016 12:29 PM EST 02/03/2016 12:43 PM EST Jinny Farfan MD CHEMISTRY ORDERABLES Performing Organization Address City/[facility]/ZIP Co de Phone Number [facility] [place] [address] * Blue Tube HOLD (02/03/2016 12:29 PM EST) Blue Hold Sample in lab. [facility] Blood specimen (specimen) Venous Draw / Unknown 02/03/2016 12:29 PM EST 02/03/2016 12:43 PM EST Jinny Farfan MD HEMATOLOGY ORDERABLE S Performing Organization Address City/[facility]/ZIP Co de Phone Number [facility] [place] [address] * Differential, Automated (02/03/2016 12:29 PM EST) Neutrophils % 56.3 % [facility] Neutr Abs (ANC) 1.89 1.50 - 6.30 x10(3)/mcL [facility] Lymphocytes % 33.9 % [facility] Lymphocytes Abs 1.1 1.0 - 3.6 x10(3)/[facility] Monocytes % 8.0 % [facility] Monocyte Abs 0.3 0.2 - 1.0 x10(3)/[facility] Eosinophils % 1.5 % [facility] Eosinophils Abs 0.0 0.0 - 0.5 x10(3)/[facility] Basophils % 0.3 % [facility] Basophils Abs 0.0 0.0 - 0.2 x10(3)/[facility] Immature Gran % 0.00 % [facility] Comment: Immature granulocytes(IG's)percentage and absolute count will include metamyelocytes, myelocytes, and promyelocytes. Blood smears from CBCs yielding IG's will be scanned manually for concordance. If this scan disagrees with the automated IG or if promyelocytes are noted, a manual differential will be performed. [place] Gran Abs 0.00 0.00 - 0.05 x10(3)/[facility] Blood specimen (specimen) 02/03/2016 12:29 PM EST 02/03/2016 12:42 PM EST Narrative Resulting Agency Comment Spec In Lab Jinny Farfan MD HEMATOLOGY ORDERABLE S Performing Organization Address City/State/[facility] Co de Phone Number [facility] [place] [address] * (ABNORMAL) Hemogram (02/03/2016 12:29 PM EST) WBC 3.4(L) 4.0 - 10.0 x10(3)/[facility] RBC 3.82(L) 3.93 - 5.22 x10(6)/[facility] Hemoglobin 11.8 11.2 - 15.7 gm/dL [facility] Hematocrit 33.6(L) 34.0 - 45.0 % [facility] MCV 88.0 79.0 - 94.0 fL [facility] MCH 30.9 26.6 - 32.2 pg [facility] MCHC 35.1 32.0 - 36.5 gm/dL [facility] Platelets 206 145 - 370 x10(3)/mcL [facility] RDWSD 46.9(H) 35.0 - 46.0 fL [facility] RDWCV 14.6(H) 10.9 - 14.4 % [facility] MPV 9.9 9.0 - 12.0 fL [facility] Blood specimen (specimen) 02/03/2016 12:29 PM EST 02/03/2016 12:42 PM EST Narrative Resulting Agency Comment Spec In Lab Jinny Farfan MD HEMATOLOGY ORDERABLE S [facility] [place] [address] * Basic Metabolic Panel (non-fasting) (02/03/2016 12:29 PM EST) Glucose Lvl 91 65 - 199 mg/dL [facility] Comment:Diabetes: >=200 mg/d L plus symptoms BUN 11 8 - 18 mg/dL [facility] Creatinine 0.79 0.70 - 1.20 mg/dL [facility] Comment: Please note that the pediatric reference intervals supplied above were not validated at [facility]. Results from pediatric patients should be interpreted in conjunction to the patient's age, height and muscle mass. Sodium 138 135 - 145 mmol/L [facility] Potassium 3.9 3.5 - 5.0 mmol/L [facility] Comment: Please note: ??Patients with WBC >100,000 may have falsely elevated Potassium levels. ??For accurate Potassium quantification in these patients send serum separator tube (gold top) for subsequent determinations. ??Contact the Clinical Chemistry Laboratory if there are any questions. Chloride 99 98 - 107 mmol/L [facility] CO2 25 22 - 31 mmol/L [facility] Anion Gap 14 5 - 15 mmol/L [facility] Calcium 9.1 8.5 - 10.5 mg/dL [facility] Estimated GFR >60 >=60 [facility] Comment: This estimated GFR (eGFR) value was calculated using the MDRD equation which has been validated on patients between the ages of 18 and 70. The MDRD should not be used to assess kidney function in patients < 18 years of age or in patients with extremes of body mass, or in patients with acute kidney failure. This value should be multiplied by 1.2 for patients. For further information please copy and paste the following links into your internet browser. http://[employer]/DHnkdep [email or web address]://[employer]/DHMCnkf Blood specimen (specimen) 02/03/2016 12:29 PM EST 02/03/2016 12:42 PM EST Narrative Resulting Agency Comment Spec In Lab Jinny Farfan MD CHEMISTRY ORDERABLES [facility] [place] [id number] documented in this encounter Visit Diagnoses Diagnosis Vasovagal syncope Syncope and collapse documented in this encounter Administered Medications Inactive Administered Medications - up to 3 most recent administrations Medication Order MAR Action Action Date Dose Rate Site sodium chloride 0.9% 1,000 mL IV bolus Intravenous, ONCE, 1 dose, On Sonal 02/03/16 at 1233 Given 02/03/2016 12:53 PM EST documented in this encounter Active and Recently Administered Medications Times are shown in EST. Scheduled Medication Order 02/01/2016 02/02/2016 02/03/2016 sodium chloride 0.9% 1,000 mL IV bolus (COMPLETED) Intravenous, ONCE, 1 dose, On Sonal 02/03/16 at 1233 1253 (Given - Provid er: Hazel Ragland RN) documented in this encounter Care Teams Dietetics Professor Relationship Specialty Start Date End Date Connie Gayle ND PCP - General Naturopathic Medicine 01/25/16 09/27/17 documented as of this encounter
--- OUTSIDE RECORDS SUMMARY | 2024-06-27 15:17 | XMS_ITS | Encounter Summary ---
[place] [address] Care Team Providers Care Disposal Operator Name Role Phone Connie Gayle SUDEEP Primary Care Provider +1- [phone] Reason for Visit * Reason Onset Date Comments Arm Pain 03/03/2016 Encounter Details Date Type Department Care Team (Late st Contact Info) Description 03/03/2016 [place] [id number] Eusebio Dominguez MD [facility] [place] [address] Arm Pain Social History Tobacco Use Types Packs/Day Years [...] encounter Miscellaneous Notes * Telephone Encounter - Diana Smith RN - [...] does not want to be on them longterm. She has a follow up appointment scheduled for next week with new x-rays before. We discussed different ways to elevate the [...] on filedocumented in this encounter Care Teams Disposal Operator Relationship Specialty Start Date End Date Connie Gayle ND PCP - General Naturopathic Medicine 01/25/16 09/27/17 documented as of this encounter
--- OUTSIDE RECORDS SUMMARY | 2024-06-27 15:17 | XMS_ITS | Encounter Summary ---
[place] [address] Care Team Providers Care Finishing Machine Operator Automatic Name Role Phone Connie Gayle SUDEEP Primary Care Provider +1- [phone] Reason for Referral * Diagnostic Test (Routine) - Closed Specialty Diagnoses / Procedures Referred By Contac t Referred To Contact Radiology Diagnoses Right shoulder pain, unspecified chronicity Procedures MRI Shoulder Right WO Contrast (GENERIC) Eusebio Dale MD [facility] [place] [address] [facility] [place] [address] Referral ID Status Reason Start Date Expiration Date V isits Requested Visits Authorized [id number] Closed Specialty Service Requested 05/02/2016 07/31/2016 1 1 Reason for Visit * Reason Comments Neck Pain Right Shoulder Pain Right Arm Pain * Consultation (Routine) - Closed Specialty Diagnoses / Procedures Referred By Contac t Referred To Contact Orthopaedics Diagnoses cervical myelopathy s/p surgery Kg Martinez MD [address] [place] [address] [facility] [place] [facility] [address] Referral ID Status Reason Start Date Expiration Date V isits Requested Visits Authorized [id number] Closed Consult, Test & Treat Connection Center PCP Updated and/or Approved 01/25/2016 01/24/2017 1 1 Encounter Details Date Type Department Care Team (Late st Contact Info) Description 04/21/2016 8:40 AM EDT Office [place] [address] Eusebio Bajwa MD [facility] [place] [place] [address] Spondylosis of cervical region without myelopathy or radiculopathy; Right shoulder pain, unspecified chronicity Social History Tobacco Use [...] as of this encounter Progress Notes * Eusebio Dale MD - 04/26/2016 8:22 AM EDT She saw Dr Bajwa and he feels that her neck and shoulder complints are not directrly related to her C Spine changes We will order a R shoulder MRI and see her back after * Eusebio Bajwa MD - 04/21/2016 9:17 AM EDT Aubrey Darnell is a 55-year-old right hand dominant woman seen today in the Spine Center in consultation from Dr. Martinez and Dr. Dale. She has a very long and complex history with regards to her cervical spine. She had cervical myelopathy about 10 years ago and had an ACDF C4-5, C5-6 in [place]. She has had chronic neck pain and [...] here as they were for her in [place], [place]. Any further spine center followup would be with one of our medical specialists. documented in this encounter Miscellaneous Notes * Addendum Note - Eusebio Dale MD - 04/26/2016 8:26 AM EDTAddended by: EUSEBIO DALE on: 04/26/2016 08:26 AM Modules accepted: Orders documented in this encounter Plan of Treatment Scheduled Procedures Name Priority Associated Diagnoses Date/Ti me COLONOSCOPY, DIAGNOSTIC (WRV U 3.26) Encounter for colorectal cancer screening documented as of this encounter Results * MRI Shoulder Right WO Contrast (GENERIC) (05/08/2016 9:04 PM EDT) Anatomical Region Laterality Modality Shoulder Right Magnetic Resonan ce Impressions 05/09/2016 9:50 AM EDT 1. ??Rotator cuff tendinopathy with extensive articular surface partial- thickness tearing of the rotator cuff. There may be a small focus of full-thickness tearing. No associated muscular atrophy. 2. ??Glenohumeral arthropathy characterized by marginal osteophyte formation and extensive degenerative tearing and deformity of the labrum including the biceps anchor. 3. ??The presence of pericapsular edema suggestive possible diagnosis of early adhesive capsulitis. I have personally reviewed the image(s) and the residents interpretation and agree with the findings, Franklin Colin at 05/09/2016 9:50 AM Narrative 05/09/2016 9:50 AM EDT EXAMINATION: MRI SHOULDER RIGHT WO CONTRAST CLINICAL HISTORY: Fall within last 4 months with ulnar fx - now persistent R shoulder and arm pain COMPARISON: There is no x-ray of the shoulder for comparison. TECHNIQUE: Routine noncontrast MR of the Right shoulder was performed. FINDINGS: No osseous injury is identified. ROTATOR CUFF OUTLET: At the acromial clavicular joint marginal osteophytes are present and there is bone marrow edema. The appearance is consistent with AC joint arthropathy. No acute superimposed injury is identified. There is minimal curvature of the acromium. A small subacromial spur is evident.. ROTATOR CUFF: Fluid is present within the subdeltoid bursa. In addition to generalized rotator cuff tendinopathy, a high-grade, greater than 50% thickness, articular surface partial-thickness tearing of the rotator cuff insertion, begins approximately 1 cm posterior to the rotator cuff interval and extends posteriorly approximately 2 cm. At the posterior margin of this undersurface partial-thickness tear there is an area which is suspicious for a small full-thickness tear. The subscapularis component of the cuff is intact. No atrophy of the rotator cuff musculature is identified. BICEPS TENDON: The biceps tendon is nondisplaced. It is normal in size and signal intensity with the exception of the proximal most aspect of the intra-articular component of the tendon which is increased in size and signal intensity consistent with tendinopathy. GLENOHUMERAL JOINT: At the glenohumeral joint no large effusion is identified. There is pericapsular edema. The significance this finding is uncertain but this is a finding that has been described in the acute phase of adhesive capsulitis. Other findings typically seen in the setting of adhesive capsulitis, such as capsular thickening, are not evident. The degeneration of the proximal biceps tendon extends into the biceps anchor where there is extensive degenerative tearing extending into both the posterior and anterior labrum. No chondral defect is identified but there are small marginal osteophytes.. Procedure Note Franklin Colin MD - 05/09/2016 EXAMINATION: MRI SHOULDER RIGHT WO CONTRAST CLINICAL HISTORY: Fall within last 4 months with ulnar fx - now persistentR shoulder and arm pain COMPARISON: There is no x-ray of the shoulder for comparison. TECHNIQUE: Routine noncontrast MR of the Right shoulder was performed. FINDINGS: No osseous injury is identified. ROTATOR CUFF OUTLET: At the acromial clavicular joint marginal osteophytes are present andthere is bone marrow edema. The appearance is consistent with AC joint arthropathy.No acute superimposed injury is identified. There is minimal curvature of the acromium. A small subacromial spur is evident.. ROTATOR CUFF: Fluid is present within the subdeltoid bursa. In addition to generalized rotator cuff tendinopathy, a high-grade,greater than 50% thickness, articular surface partial-thickness tearing of the rotatorcuff insertion, begins approximately 1 cm posterior to the rotator cuffinterval and extends posteriorly approximately 2 cm. At the posterior margin of this undersurface partial-thickness tear thereis an area which is suspicious for a small full-thickness tear. The subscapularis component of the cuff is intact. No atrophy of the rotator cuff musculature is identified. BICEPS TENDON: The biceps tendon is nondisplaced. It is normal in size and signal intensity with the exception of theproximal most aspect of the intra-articular component of the tendon which isincreased in size and signal intensity consistent with tendinopathy. GLENOHUMERAL JOINT: At the glenohumeral joint no large effusion is identified. There is pericapsular edema. The significance this finding is uncertainbut this is a finding that has been described in the acute phase of adhesivecapsulitis. Other findings typically seen in the setting of adhesive capsulitis, suchas capsular thickening, are not evident. The degeneration of the proximal biceps tendon extends into the bicepsanchor where there is extensive degenerative tearing extending into both theposterior and anterior labrum. No chondral defect is identified but there are small marginalosteophytes.. IMPRESSION 1. Rotator cuff tendinopathy with extensive articular surfacepartial-thickness tearing of the rotator cuff. There may be a small focus offull-thickness tearing. No associated muscular atrophy. 2. Glenohumeral arthropathy characterized by marginal osteophyteformation and extensive degenerative tearing and deformity of the labrum including thebiceps anchor. 3. The presence of pericapsular edema suggestive possible diagnosis ofearly adhesive capsulitis. I have personally reviewed the image(s) and the residents interpretationand agree with the findings, Franklin Colin at 05/09/2016 9:50 AM Eusebio Dale MD IMG MRI ORDERABLE S documented in this encounter Visit Diagnoses Diagnosis Spondylosis of cervical region without myelopathy or radiculopathy Cervical spondylosis without myelopathy Right shoulder pain, unspecified chronicity Right shoulder pain, unspecified chronicity documented in this encounter Care Teams Finishing Machine Operator Automatic Relationship Specialty Start Date End Date Connie Gayle ND PCP - General Naturopathic Medicine 01/25/16 09/27/17 documented as of this encounter
--- OUTSIDE RECORDS SUMMARY | 2024-06-27 15:17 | XMS_ITS | Encounter Summary ---
Author [place] [address] Care Team Providers Care Utility Lineman Name Role Phone Connie Gayle SUDEEP Primary Care Provider +1- [phone] Reason for Referral * Diagnostic Test (Routine) - Closed Specialty Diagnoses / Procedures Referred By Rafael mart Referred To Contact Radiology Diagnoses Displaced fracture of distal end of right ulna, sequela Procedures MRI Cervical Spine WO Contrast (GENERIC) Eusebio Dominguez MD [facility] [place] [address] [place] [address] Referral ID Status Reason Start Date Expiration Date V isits Requested Visits Authorized [id number] Closed Specialty Service Requested 04/05/2016 07/04/2016 1 1 Reason for Visit * Reason Comments Right Wrist Fracture 01/13/2016 Ulna fx Encounter Details Date Type Department Care Team (Late st Contact Info) Description 04/05/2016 10:00 AM EDT Office [place] [address] Eusebio Dominguez MD [facility] [place] [address] Displaced fracture of distal end of right ulna, sequela Social History Tobacco Use Types Packs/Day Years [...] (120 lb) 04/05/2016 10:09 AM EDT pt reported Height 167.6 cm (5' 6) 04/05/2016 10:09 AM EDT pt reported Body Mass Index 19.37 04/05/2016 10:09 AM EDT documented in this encounter Progress Notes * Eusebio Dominguez MD - 04/05/2016 10:15 AM EDT Prior Hx This 55 yo white female fell on the ice and hit her R arm against her car door and had immediate pain and had X Rays at [facility] which showed a mildly comminuted and mildly displaced and shortened distal1/3 ulnar fracture She had a placement of a cast by Dr Martinez but she was unable to tolerate thatand he placed her in long arm splints [...] as of this encounter Results * MRI Cervical Spine [...] foramen and appears to contact the exiting [id number] root. There is mild left neural foraminal [...] of distal end of right ulna, sequela Displaced fracture of distal end of right ulna, sequela documented in this encounter Care Teams Utility Lineman Relationship Specialty Start Date End Date Connie Gayle ND PCP - General Naturopathic Medicine 01/25/16 09/27/17 documented as of this encounter
--- OUTSIDE RECORDS SUMMARY | 2024-06-27 15:17 | XMS_ITS | Encounter Summary ---
[place] [address] Care Team Providers Care Director Of Early Childhood Name Role Phone Connie Gayle ND Primary Care Provider +1- [phone] Encounter Details Date Type Department Care Team (Late st Contact Info) Description 02/16/2016 8:45 AM EDT Clinical Support [place] [address] Social History Tobacco Use Types Packs/Day Years [...] in this encounter Care Teams Director Of Early Childhood Relationship Specialty Start Date End Date Connie Gayle ND PCP - General Naturopathic Medicine 01/25/16 09/27/17 documented as of this encounter
--- OUTSIDE RECORDS SUMMARY | 2024-06-27 15:17 | XMS_ITS | Encounter Summary ---
Author Organization [facility] [place] [address] Care Team Providers Care Radio Division Officer Name Role Phone Connie Gayle SUDEEP Primary Care Provider +1- [phone] Reason for Visit * Reason Comments Right Arm Fracture ulna fx DOI 01/30/20 16 * Consultation (Routine) - Closed Specialty Diagnoses / Procedures Referred By Rafael mart Referred To Contact Orthopaedics Diagnoses Right Broken Ulna/ Right Arm / DOI: January 12 2016, Ortho in [place]. Procedures Self mail [facility] [address] [place] [address] Referral ID Status Reason Start Date Expiration Date Visits Re quested Visits Authorized [id number] Closed 01/26/2016 01/25/2017 1 1 Encounter Details Date Type Department Care Team (Late st Contact Info) Description 02/03/2016 10:00 AM EST Office [place] [address] Eusebio Dale MD [facility] [place] [address] Displaced fracture of distal end of right ulna, initial encounter Social History Tobacco Use Types [...] (125 lb) 02/03/2016 10:28 AM EST pt reported Height 167.6 cm (5' 6) 02/03/2016 10:28 AM EST pt reported Body Mass Index 20.18 02/03/2016 10:28 AM EST documented in this encounter Progress Notes * Eusebio Dale MD - 02/03/2016 2:25 PM EST The ER was busy so she came back to the cast room to complete the cast We were able to get her long arm cast applied and repeat X rays in this cast show change in position - actually looks better than in the splints and there is early callus now seen with keenan splint material off She has her follow up appt in two weeks with x rays out of plaster then * Berhane Villarreal - 02/03/2016 12:21 PM EST [...] states she did not feel well and wanted to lie down. The patient lied down and a cold cloth was applied to the patient forehead. [place] juice was given to the patient as [...] I stood behind the patient with my arms locked under her armpits. The patient then lost consciousness and fell onto me. Another employee, JONN Leiva, and Dr. Dale helped me lower the patient to the floor safely. Thepatient was talking and breathing once lowered safely to the floor. JONN Leiva, got the patients blood pressure and temperature. Diana Smith RN, came to the scene to help assess the patient. I called [facility] mc[facility]osh and the vega mcintosh team arrived shortly after. The patient was assessed by the vega mcintosh team and brought to the Emergency Department. The cast was not finished yet but would be finished at a later time today. The patient had part of [...] any questions or concerns. The patient was sent to x-ray. Eusebio Mccollum MD - 02/03/2016 10:44 AM EST This 55 yo white female fell on the ice and hit her R arm against her car door and had immediate pain and had X Rays at [facility] which showed a mildly comminuted and [...] able to gently lay her flat on thefloor - I was present for that As per protocol she went to the ER for evaluation and we felt it best that she be discharged from there when cleared With that in mind the Ortho Resident will apply the rest of the cast and get X Rays in the new castwhich i will try to review as well [...] fainting documented in this encounter Miscellaneous Notes * Addendum Note - Eusebio Dale MD - 02/03/2016 2:06 PM ESTAddended by: EUSEBIO DALE on: 02/03/2016 02:06 PM Modules accepted: Orders documented in this encounter Plan of Treatment Scheduled Procedures Name Priority Associated Diagnoses Date/Ti me COLONOSCOPY, DIAGNOSTIC (WRV U 3.26) Encounter for colorectal cancer screening documented as of this encounter Results * XR wrist complete [...] IMPRESSION: Healing distal ulnar diaphyseal fracture. Eusebio Dale MD [facility] DX ORDERABLES * XR wrist complete minimum 3 views Right (GENERIC) (02/03/2016 3:00 PM EST) Anatomical Region Laterality Modality Right Digital Radiogra phy Impressions 02/03/2016 3:10 PM EST IMPRESSION: Slightly improved fracture alignment. Narrative 02/03/2016 3:10 PM EST EXAMINATION: XR WRIST COMPLETE MINIMUM 3 VIEWS RIGHT CLINICAL HISTORY: Follow up after re casting TECHNIQUE: 3 views the right wrist. COMPARISON: 01/30/2016. FINDINGS: Interval removal of a last are splint and placement of a fiberglass cast. Minimally less displacement of the distal fracture fragment by the ulnar shaft fracture site with slightly improved anatomic alignment, previously 4.5 mm relative displacement, presently proximally 2 mm. No other interval findings. Procedure Note Shu Cope MD - 02/03/2016 EXAMINATION: XR WRIST COMPLETE MINIMUM 3 VIEWS RIGHT CLINICAL HISTORY: Follow up after re casting TECHNIQUE: 3 views the right wrist. COMPARISON: 01/30/2016. FINDINGS: Interval removal of a last are splint and placement of afiberglass cast. Minimally less displacement of the distal fracture fragment by theulnar shaft fracture site with slightly improved anatomic alignment, previously4.5 mm relative displacement, presently proximally 2 mm. No other intervalfindings. IMPRESSION IMPRESSION: Slightly improved fracture alignment. Eusebio Dale MD G DX ORDERABLES documented in this encounter Visit Diagnoses Diagnosis Displaced fracture of distal end of right ulna, initial encounter Displaced fracture of distal end of right ulna, initial encounter Displaced fracture of distal end of right ulna, initial encounter documented in this encounter Care Teams Radio Division Officer Relationship Specialty Start Date End Date Connie Gayle ND PCP - General Naturopathic Medicine 01/25/16 09/27/17 documented as of this encounter
--- OUTSIDE RECORDS SUMMARY | 2024-06-27 15:17 | XMS_ITS | Encounter Summary ---
Author Organization [facility] [place] [address] Care Team Providers Care Beef Cattle Grazier Name Role Phone PlacidoApril APRN Primary Care Provider [phone] Encounter Details Date Type Department Care Team (Latest Contact Info) Description 01/23/2018 12:01 PM EST - 01/23/2018 11:59 PM EST Hospital Encounter XRay at [facility] [address] [facility] [place] [address] Beth Guerra, CONTINUOUS DRYOUT OPERATOR HELPER [address] [facility] [place] [address] Bloating; Upper abdominal pain Discharge Disposition: Home Social History Tobacco [...] Name Priority Date/Time Associated Diagnosis Comments XR ABDOMEN 1 VIEW Routine 01/23/2018 12: 16 PM EST Bloating Upper abdominal pain documented in this encounter Results * XR Abdomen 1 view (Generic) (01/23/2018 12:16 PM EST) Anatomical Region Laterality Modality Abdomen N/A Digital Radiogra phy Impressions 01/23/2018 5:08 PM EST 1. ??Nonspecific borderline dilated air-filled small bowel loops in the left mid and upper abdomen, may represent an ileus versus developing partial or complete small bowel obstruction. Consider follow-up abdominal radiographs or further evaluation by CT. 2. ??No large fecal load. I have personally reviewed the image(s) and the residents interpretation and agree with the findings, Bette Mariscal at 01/23/2018 5:08 PM Narrative 01/23/2018 5:08 PM EST EXAMINATION: XR ABDOMEN 1 VIEW (GENERIC) CLINICAL HISTORY: ?obstruction ???constipation TECHNIQUE: AP supine radiographs of the abdomen and pelvis COMPARISON: None available FINDINGS: There are several borderline dilated small bowel loops in the left mid and upper abdomen. Air is seen in nondistended ascending and transverse colon to level of the splenic flexure with a small to moderate amount of stool. Scattered air and stool are noted in the descending colon and rectosigmoid colon. No visualized mass effect. No abnormal intra-abdominal calcifications seen. Small round calcification overlying the central mid right hemipelvis presumably represents a phlebolith. No supine evidence of pneumoperitoneum. 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 Evaluation of the imaged lung bases is limited by film overpenetration. Procedure Note Bette Mariscal MD - 01/23/2018 EXAMINATION: XR ABDOMEN 1 VIEW (GENERIC) CLINICAL HISTORY: ?obstruction ?constipation TECHNIQUE: AP supine radiographs of the abdomen and pelvis COMPARISON: None available FINDINGS: There are several borderline dilated small bowel loops in the left mid andupper abdomen. Air is seen in nondistended ascending and transverse colon tolevel of the splenic flexure with a small to moderate amount of stool. Scatteredair and stool are noted in the descending colon and rectosigmoid colon. Novisualized mass effect. No abnormal intra-abdominal calcifications seen. Smallround calcification overlying the central mid right hemipelvis presumablyrepresents a phlebolith. No supine evidence of pneumoperitoneum. 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 Evaluation ofthe imaged lung bases is limited by film overpenetration. IMPRESSION 1. Nonspecific borderline dilated air-filled small bowel loops in theleft mid and upper abdomen, may represent an ileus versus developing partial orcomplete small bowel obstruction. Consider follow-up abdominal radiographs orfurther evaluation by CT. 2. No large fecal load. I have personally reviewed the image(s) and the residents interpretationand agree with the findings, Bette Mariscal at 01/23/2018 5:08 PM Beth Guerra APRN IMG DX ORDERABLE S documented in this encounter Visit Diagnoses Diagnosis Bloating Flatulence, eructation, and gas pain Upper abdominal pain Abdominal pain, other specified site documented in this encounter Care Teams Beef Cattle Grazier Relationship Specialty Start Date End Date April Cummins APRN [address] [place] [address] PCP - General Internal Medicine 09/28/17 02/27/18 documented as of this encounter
--- OUTSIDE RECORDS SUMMARY | 2024-06-27 15:17 | XMS_ITS | Encounter Summary ---
[place] [address] Care Team Providers Care Dye Boarding Machine Operator Name Role Phone Connie Gayle ND Primary Care Provider +1- [phone] Encounter Details Date Type Department Care Team (Late st Contact Info) Description 05/11/2016 11:30 AM EDT Office Visit [place] [address] Eusebio Dale MD [facility] [place] [address] Chronic right shoulder pain Social History Tobacco Use Types Packs/Day Years [...] (120 lb) 05/11/2016 11:34 AM EDT pt reported Height 167.6 cm (5' 6) 05/11/2016 11:34 AM EDT pt reported Body Mass Index 19.37 05/11/2016 11:34 AM EDT documented in this encounter Progress Notes * Eusebio Dale MD - 05/11/2016 11:45 AM [...] C4-6 fusion so we obtained an MRI andit appears that there is indeed a large [...] improvement documented in this encounter Miscellaneous Notes * Addendum Note - Eusebio Dale MD - 05/24/2016 3:25 PM EDTAddended by: EUSEBIO DALE on: 05/24/2016 03:25 PM Modules accepted: Orders documented in this encounter Plan of Treatment Scheduled Procedures Name Priority Associated Diagnoses Date/Ti me COLONOSCOPY, DIAGNOSTIC (WRV U 3.26) Encounter for colorectal cancer screening documented as of this encounter Results * XR Fluoro Injection Drainage Joint Lg Right (06/01/2016 3:36 PM EDT) Anatomical Region Laterality Modality Right Digital Radiogra phy Impressions 06/01/2016 3:49 PM EDT Uneventful right shoulder injection under fluoroscopy. Procedure performed by Viky Colunga APRN. No attending radiologist was present. Resident/Fellow: None present Attending: Cristi Lowery 06/01/2016 3:49 PM EDT HISTORY: partial thickness tearing rotator cuff - articular side RIGHT SHOULDER INJECTION UNDER FLUOROSCOPY TECHNIQUE: After an extensive conversation with the patient regarding risks and benefits, oral and written consent were obtained. ??A pre- procedural time-out was performed as per [facility] [place] protocol. The patient was placed supine on the fluoroscopic table. ??The right shoulder was prepped and draped in the usual aseptic manner. 1% Lidocaine was used to achieve local anesthesia. Under fluoroscopic guidance, 22-gauge needle was advanced into the joint space. ??Small amount of air was injected to document needle placement. A mixture of Ropivacaine and triamcinolone acetonide was injected. All needles removed at end of procedure. FINDINGS: 1. ??Small amount of injected air in the right glenohumeral joint space. 2. ??PAIN SCORE: ??Before: 4/10 ??After: 4/10 3. Fluoroscopy time: 3.8 sec 4. Medications: ??Lidocaine 1% - <5 ml, for subcutaneous anesthesia ??Ropivacaine HCL ??0.5% - 3 ml ??Triamcinolone Acetonide ??- 40 mg COMPLICATIONS: ??None immediate. POST-PROCEDURE CARE: Information regarding monitor of infection, post- procedural pain and management of steroid flare were reviewed with patient. Procedure Note Viky Colunga APRN - 06/01/2016 HISTORY: partial thickness tearing rotator cuff - articular side RIGHT SHOULDER INJECTION UNDER FLUOROSCOPY TECHNIQUE: After an extensive conversation with the patient regardingrisks and benefits, oral and written consent were obtained. A pre- proceduraltime-out was performed as per [facility] [place] protocol. The patient was placed supine on the fluoroscopic table. The rightshoulder was prepped and draped in the usual aseptic manner. 1% Lidocaine was used toachieve local anesthesia. Under fluoroscopic guidance, 22-gauge needle wasadvanced into the joint space. Small amount of air was injected to document needleplacement. A mixture of Ropivacaine and triamcinolone acetonide was injected. Allneedles removed at end of procedure. FINDINGS: 1. Small amount of injected air in the right glenohumeral joint space. 2. PAIN SCORE: Before: 4/10 After: 4/10 3. Fluoroscopy time: 3.8 sec 4. Medications: Lidocaine 1% - <5 ml, for subcutaneous anesthesia Ropivacaine HCL 0.5% - 3 ml Triamcinolone Acetonide - 40 mg COMPLICATIONS: None immediate. POST-PROCEDURE CARE: Information regarding monitor of infection, post- procedural pain and management of steroid flare were reviewed withpatient. IMPRESSION Uneventful right shoulder injection under fluoroscopy. Procedure performed by Viky Colunga APRN. No attending radiologistwas present. Resident/Fellow: None present Attending: Cristi Eusebio Dale MD IMG FLUORO ORDERA BLES documented in this encounter Visit Diagnoses Diagnosis Chronic right shoulder pain Pain in joint, shoulder region Chronic right shoulder pain Pain in joint, shoulder region documented in this encounter Care Teams Dye Boarding Machine Operator Relationship Specialty Start Date End Date Connie Gayle ND PCP - General Naturopathic Medicine 01/25/16 09/27/17 documented as of this encounter
--- OUTSIDE RECORDS SUMMARY | 2024-06-27 15:17 | XMS_ITS | Encounter Summary ---
Author Organization [facility] [place] [address] Care Team Providers Care Folder Inspector Name Role Phone Connie Gayle SUDEEP Primary Care Provider +1- [phone] Reason for Referral * Physical Therapy (Routine) - Closed Specialty Diagnoses / Procedures Referred By Magalyac t Referred To Contact Physical Therapy Diagnoses Displaced fracture of distal end of right ulna, sequela Eusebio Dale MD [facility] [place] [address] Referral ID Status Reason Start Date Expiration Date V isits Requested Visits Authorized [id number] Closed Evaluate and Treat 03/08/2016 09/04/2016 12 12 Reason for Visit * Reason Comments Follow-up R ulna fx DOI 6 Encounter Details Date Type Department Care Team (Late st Contact Info) Description 03/08/2016 10:00 AM EDT Office [place] [address] Eusebio Dale MD [facility] [place] [address] Displaced fracture of distal end of right [...] Progress Notes * Eusebio Dale MD - 03/08/2016 11:27 AM EDT I refilled a script for Vicodin but lowered it to 5mg dosage * Eusebio Dael MD - 03/08/2016 10:45 AM EDT Prior Hx This 55 yo white female fell on the ice and hit her R arm against her car door and had immediate pain and had X Rays at [email or web address] which showed a mildly comminuted and mildly [...] weeks out of the brace after PT * Carmen Guy - 03/08/2016 10:15 AM EDT Kalyn Burgos presents to the clinic for a cast off per Dr. Dale. The short arm cast was intact upon arrival. The patient was explained how the cast saw works and the cast was removed. The patient tolerated this procedure well. The patient's skin was intact.The patient was then sent to x-ray. documented in this encounter Miscellaneous Notes * Addendum Note - Eusebio Dale MD - 03/08/2016 11:27 AM EDTAddended by: EUSEBIO DALE on: 03/08/2016 11:27 AM Modules accepted: Orders * Addendum Note - Eusebio Dale MD - 03/08/2016 11:02 AM EDTAddended by: EUSEBIO DALE on: 03/08/2016 11:02 AM Modules accepted: Orders documented in this encounter Plan of Treatment Scheduled Procedures Name Priority Associated Diagnoses Date/Ti me COLONOSCOPY, DIAGNOSTIC (WRV U 3.26) Encounter for colorectal cancer screening Scheduled Referrals Name Type Priority Associated Diagnoses Orde r Schedule Referral to Physical Therapy Outpatient Referral Routine Displaced fracture of distal end of right ulna, sequela Ordered: 03/08/2016 documented as of this encounter Results * [...] Increased healing of distal ulnar fracture. Eusebio Dale MD IMG DX ORDERABLES documented in this encounter Visit Diagnoses Diagnosis Displaced fracture of distal end of right ulna, sequela Displaced fracture of distal end of right ulna, sequela documented in this encounter Care Teams Folder Inspector Relationship Specialty Start Date End Date Connie Gayle ND PCP - General Naturopathic Medicine 01/25/16 09/27/17 documented as of this encounter
--- OUTSIDE RECORDS SUMMARY | 2024-06-27 15:17 | XMS_ITS | Encounter Summary ---
[place] [address] Care Team Providers Care Ampoule Filler Name Role Phone Connie Gayle ND Primary Care Provider +1- [phone] Encounter Details Date Type Department Care Team (Late st Contact Info) Description 04/28/2016 Orders [place] [address] Katie Castaneda Social History Tobacco Use Types Packs/Day Years [...] on filedocumented in this encounter Care Teams Ampoule Filler Relationship Specialty Start Date End Date Connie Gayle ND PCP - General Naturopathic Medicine 01/25/16 09/27/17 documented as of this encounter
--- OUTSIDE RECORDS SUMMARY | 2024-06-27 15:17 | XMS_ITS | Encounter Summary ---
Author Organization [facility] Address [facility] [place] [address] Care Team Providers Care Gauger Chief Delivery Name Role Phone April Cummins Tanvir HENLEY Primary Care Provider [phone] Encounter Details Date Type Department Care Team (Latest Contact Info) Description 12/27/2017 - 12/27/2017 11:59 PM EST Hospital Encounter [place] [address] Yeny Manuel MD [facility] [place] [address] Discharge Disposition: Home Social History Tobacco Use [...] FILM LIBRARY STORAGE ONLY ULTRASOUND STUDY Routine 12/27/2017 12:00 AM EST documented in this encounter Results * Film Library- Storage Only Ultrasound Study (12/27/2017 12:00 AM EST) Narrative DENISE - 01/31/2018 1:29 PM EST This exam is for storage only and is auto-finalizing. Yeny Manuel MD IMG FILM LIBRARY ORD ERABLES [place], [place] documented in this encounter Visit Diagnoses Not on filedocumented in this encounter Care Teams Gauger Chief Delivery Relationship Specialty Start Date End Date April Cummins APRN [address] [facility] [place] [address] PCP - General Internal Medicine 09/28/17 02/27/18 documented as of this encounter
--- OUTSIDE RECORDS SUMMARY | 2024-06-27 15:17 | XMS_ITS | Encounter Summary ---
[place] [address] Care Team Providers Care Chop Saw Operator Name Role Phone Connie Gayle ND Primary Care Provider +1- [phone] Encounter Details Date Type Department Care Team (Late st Contact Info) Description 04/21/2016 Telephone [place] [address] Eusebio Dominguez MD [facility] [place] [address] Social History Tobacco Use Types Packs/Day Years [...] encounter Miscellaneous Notes * Telephone Encounter - Katie Castaneda - 04/28/2016 4:08 PM EDT Patient scheduled. * Telephone Encounter - Eusebio Dominguez MD - 04/26/2016 8:27 AM EDT WE will arrange for non contrast r shoulder MRI and see after * Telephone Encounter - Sarah Scott - 04/21/2016 [...] further Best number to reach the caller: [phone] documented in this encounter Plan of Treatment Scheduled Procedures Name Priority Associated Diagnoses Date/Ti me COLONOSCOPY, DIAGNOSTIC (WRV U 3.26) Encounter for colorectal cancer screening documented as of this encounter Visit Diagnoses Not on filedocumented in this encounter Care Teams Chop Saw Operator Relationship Specialty Start Date End Date Connie Gayle ND PCP - General Naturopathic Medicine 01/25/16 09/27/17 documented as of this encounter
--- OUTSIDE RECORDS SUMMARY | 2024-06-27 15:17 | XMS_ITS | Encounter Summary ---
[place] [address] Care Team Providers Care Supply Chain Generalist Name Role Phone Connie Gayle ND Primary Care Provider +1- [phone] Encounter Details Date Type Department Care Team (Late st Contact Info) Description 03/08/2016 9:30 AM EDT Clinical [place] [address] Social History Tobacco Use Types Packs/Day Years [...] on filedocumented in this encounter Care Teams Supply Chain Generalist Relationship Specialty Start Date End Date Connie Gayle ND PCP - General Naturopathic Medicine 01/25/16 09/27/17 documented as of this encounter
--- OUTSIDE RECORDS SUMMARY | 2024-06-27 15:17 | XMS_ITS | Encounter Summary ---
[place] [address] Care Team Providers Care Sanitary Inspector Name Role Phone Connie Gayle ND Primary Care Provider +1- [phone] Encounter Details Date Type Department Care Team (Late st Contact Info) Description 04/05/2016 Orders [place] [address] Chanell Perez Social History Tobacco Use Types Packs/Day Years [...] on filedocumented in this encounter Care Teams Sanitary Inspector Relationship Specialty Start Date End Date Connie Gayle ND PCP - General Naturopathic Medicine 01/25/16 09/27/17 documented as of this encounter
--- OUTSIDE RECORDS SUMMARY | 2024-06-27 15:17 | XMS_ITS | Encounter Summary ---
Author Organization [facility] [place] [address] Care Team Providers Care Commercial Loan Officer Name Role Phone Connie Gayle ND Primary Care Provider +1- [phone] Reason for Visit * Reason Comments Right Arm Fracture right ulna 02/09/2016 Encounter Details Date Type Department Care Team (Late st Contact Info) Description 02/16/2016 9:30 AM EDT Office [place] [address] Eusebio Dale MD [facility] [place] [address] Displaced fracture of distal end of right [...] 36.7 ??C (98.1 ??F) 02/16/2016 9:30 AM ED T Respiratory Rate 22 02/16/2016 9:30 AM EDT Oxygen Saturation - - Inhaled Oxygen Concentration - - Weight 54.4 kg (120 lb) 02/16/2016 9:30 AM EDT Height 167.6 cm (5' 6) 02/16/2016 9:30 AM EDT Body Mass Index 19.37 02/16/2016 9:30 AM EDT documented in this encounter Progress Notes * Berhane Villarreal - 02/16/2016 11:00 AM EDT [...] the nurse with any questions or concerns. * Carmen Guy - 02/16/2016 10:54 AM EDT [...] Joseph assisted patient to x-ray in wheelchair. * Eusebio Dale MD - 02/16/2016 10:30 AM EDT This 55 yo white female fell on the ice and hit her R arm against her car door and had immediate pain and had X Rays at [facility] which showed a mildly comminuted and mildly displaced and shortened distal1/3 ulnar fracture?? She had a placement of [...] position and there is a fair amount or callus ROS - negative for cardiac resp [...] plaster documented in this encounter Miscellaneous Notes * Addendum Note - Eusebio Dale MD - 02/16/2016 10:43 AM EDTAddended by: EUSEBIO DALE on: 02/16/2016 10:43 AM Modules accepted: Orders documented in this encounter Plan of Treatment Scheduled Procedures Name Priority Associated Diagnoses Date/Ti mo COLONOSCOPY, DIAGNOSTIC (WRV U 3.26) Encounter for colorectal cancer screening documented as of this encounter Results * XR wrist complete minimum 3 views Right (GENERIC) (03/08/2016 10:18 AM EDT) Anatomical Region Laterality Modality Right Digital Radiogra phy Impressions 03/08/2016 11:39 AM EDT IMPRESSION: Healing distal ulnar diaphyseal fracture. Narrative 03/08/2016 11:39 AM EDT EXAMINATION: XR WRIST COMPLETE MINIMUM 3 VIEWS RIGHT CLINICAL HISTORY: Follow up distal 1/3 ulnar fracture TECHNIQUE: 3 views COMPARISON: February 16, 2016 FINDINGS: Osseous demineralization. No appreciable change in alignment of distal ulnar diaphyseal fracture with fracture lines remaining visible but with evidence of healing manifested by osseous bridging and periosteal new bone formation. No new fracture identified. Soft tissues appear unremarkable. Procedure Note Luis Ricardo MD - 03/08/2016 EXAMINATION: XR WRIST COMPLETE MINIMUM 3 VIEWS RIGHT CLINICAL HISTORY: Follow up distal 1/3 ulnar fracture TECHNIQUE: 3 views COMPARISON: February 16, 2016 FINDINGS: Osseous demineralization. No appreciable change in alignment of distalulnar diaphyseal fracture with fracture lines remaining visible but withevidence of healing manifested by osseous bridging and periosteal new bone formation.No new fracture identified. Soft tissues appear unremarkable. IMPRESSION IMPRESSION: Healing distal ulnar diaphyseal fracture. Eusebio Dale MD IMG DX ORDERABLES documented in this encounter Visit Diagnoses Diagnosis Displaced fracture of distal end of right ulna, sequela Displaced fracture of distal end of right ulna, sequela documented in this encounter Care Teams Commercial Loan Officer Relationship Specialty Start Date End Date Connie Gayle ND PCP - General Naturopathic Medicine 01/25/16 09/27/17 documented as of this encounter
--- OUTSIDE RECORDS SUMMARY | 2024-06-27 15:17 | XMS_ITS | Encounter Summary ---
[place] [address] Care Team Providers Care Steeple Jack Name Role Phone Unavailable Primary Care Provider Unavailabl e Encounter Details Date Type Department Care Team (Late st Contact Info) Description 01/20/2016 - 01/20/2016 11:59 PM EST Hospital Encounter [place] [address] [address] Davon Temporary Pain Discharge Disposition: Home Social History Tobacco Use [...] Diagnosis Comments FILM LIBRARY STORAGE ONLY DX UPPER EXTREMITY Routine 01/20/2016 12:00 AM EST Pain documented in this encounter Results * Film Library- Storage only DX Upper Extremity (01/20/2016 12:00 AM EST) Narrative DENISE - 01/27/2016 11:12 AM EST See PACS for result report. Dr Aileen Mays IMG FILM LIBRARY ORD ERABLES [place], [place] documented in this encounter Visit Diagnoses Diagnosis Pain Generalized pain documented in this encounter
--- OUTSIDE RECORDS SUMMARY | 2024-06-27 15:17 | XMS_ITS | Encounter Summary ---
[place] [address] Care Team Providers Care Jewel Cupping Machine Operator Name Role Phone Connie Gayle ND Primary Care Provider +1- [phone] Reason for Visit * Reason Onset Date Comments Referral 05/16/2016 Encounter Details Date Type Department Care Team (Late st Contact Info) Description 05/16/2016 Telephone [place] [address] Eusebio Dominguez MD [facility] [place] [address] Referral Social History Tobacco Use Types Packs/Day Years [...] encounter Miscellaneous Notes * Telephone Encounter - Emmy Ventura - 05/16/2016 12:32 PM EDT Patient would like Dr. Dominguez to refer her to Dr. Bette Farnsworth at [facility] in [place] for follow up on her shoulder documented in this encounter Plan of Treatment Scheduled Procedures Name Priority Associated Diagnoses Date/Ti me COLONOSCOPY, DIAGNOSTIC (WRV U 3.26) Encounter for colorectal cancer screening documented as of this encounter Visit Diagnoses Not on filedocumented in this encounter Care Teams Jewel Cupping Machine Operator Relationship Specialty Start Date End Date Connie Gayle ND PCP - General Naturopathic Medicine 01/25/16 09/27/17 documented as of this encounter
--- OUTSIDE RECORDS SUMMARY | 2024-06-27 15:17 | XMS_ITS | Encounter Summary ---
[place] [address] Care Team Providers Care Access Spec Name Role Phone Connie Gayle ND Primary Care Provider +1- [phone] Reason for Visit * Reason Onset Date Comments Physical Therapy 03/08/2016 Encounter Details Date Type Department Care Team (Late st Contact Info) Description 03/08/2016 Tele[place] [address] Eusebio Dominguez MD [facility] [address] [place] [address] Physical Therapy Social History Tobacco Use Types Packs/Day Years [...] encounter Miscellaneous Notes * Telephone Encounter - Luisa Baird P - 03/09/2016 10:07 AM EDT I returned Kalyn's original call about starting some cardio exercise. She was told that a stationarybike, treadmill, or walking outside on her own would be good low impact activities to maintain her cardio fitness. It was explained that she does not need to attend a gym or PT office to do these activities. She will also be taking her PT referral from us to a local therapist to start therapy on her elbow and shoulder. * Telephone Encounter - Luisa Baird - 03/08/2016 12:21 PM EDT ----- Message from Eusebio Dominguez MD sent at 03/08/2016 8:03 AM EDT ----- That would be OK but she is not to do anything that involves rotation etc thru the wrist and that might even include riding a regular bike - a stationary bike would be OK ----- Message ----- From: Luisa Baird Sent: 03/03/2016 3:58 PM To: Eusebio Dominguez MD Kalyn would like to know if she can begin doing some cardio again. She is about 4 weeks out from herdistal ulnar fracture. Would something low shah and low impact like a stationary bike or walking on a treadmill be reasonable for her? documented in this encounter Plan of Treatment Scheduled Procedures Name Priority Associated Diagnoses Date/Ti me COLONOSCOPY, DIAGNOSTIC (WRV U 3.26) Encounter for colorectal cancer screening documented as of this encounter Visit Diagnoses Not on filedocumented in this encounter Care Teams Access Spec Relationship Specialty Start Date End Date Connie Gayle ND PCP - General Naturopathic Medicine 01/25/16 09/27/17 documented as of this encounter
--- OUTSIDE RECORDS SUMMARY | 2024-06-27 15:17 | XMS_ITS | Encounter Summary ---
[place] [address] Care Team Providers Care Patent Litigation Associate Name Role Phone April Cummins Tanvir HENLEY Primary Care Provider [phone] Encounter Details Date Type Department Care Team (Late st Contact Info) Description 01/23/2018 1:00 PM EST Clinical [place] [address] Connie Murrell, RN [facility] [address] [place] [address] Myalgia Social History Tobacco Use Types Packs/Day Years [...] as of this encounter Progress Notes * Connie Murrell APRN - 01/23/2018 1:00 PM EST Attended education ONLY Fibromyalgia Shared Medical Appointment documented in this encounter Plan of Treatment Scheduled Procedures Name Priority Associated Diagnoses Date/Ti me COLONOSCOPY, DIAGNOSTIC (WRV U 3.26) Encounter for colorectal cancer screening documented as of this encounter Visit Diagnoses Diagnosis Myalgia Mylagia and myositis, unspecified documented in this encounter Care Teams Patent Litigation Associate Relationship Specialty Start Date End Date April Cummins, JAVA TECH LEAD [address] [place] [address] PCP - General Internal Medicine 09/28/17 02/27/18 documented as of this encounter
--- OUTSIDE RECORDS SUMMARY | 2024-06-27 15:17 | XMS_ITS | Encounter Summary ---
[place] [address] Care Team Providers Care Filtration Plant Operator Name Role Phone Connie Gayle ND Primary Care Provider +1- [phone] Reason for Referral * Consultation (Routine) - Closed Specialty Diagnoses / Procedures Referred By Rafael mart Referred To Contact Orthopaedics Diagnoses Osteoarthritis of cervical spine with myelopathy Eusebio Dale MD [facility] [place] [address] [facility] [address] [place] [phone] Referral ID Status Reason Start Date Expiration Date V isits Requested Visits Authorized [id number] Closed Consult, Test & Treat 04/19/2016 04/19/2017 1 1 Reason for Visit * Reason Comments Symptom, Back cervical Encounter Details Date Type Department Care Team (Latest Contact Info) Description 04/19/2016 9:00 AM EDT Office [place] [address] Eusebio Dale MD [facility] [place] [address] Osteoarthritis of cervical spine with myelopathy Social History Tobacco Use Types Packs/Day Years [...] kg (120 lb) 04/19/2016 9:32 AM EDT p t reported Height 167.6 cm (5' 6) 04/19/2016 9:32 AM EDT p t reported Body Mass Index 19.37 04/19/2016 9:32 AM EDT documented in this encounter Progress Notes * Eusebio Dale MD - 04/19/2016 9:43 AM [...] wrist documented in this encounter Miscellaneous Notes * Addendum Note - Eusebio Dale MD - 04/19/2016 9:54 AM EDTAddended by: EUSEBIO DALE on: 04/19/2016 09:54 AM Modules accepted: Orders documented in this encounter Plan of Treatment Scheduled Procedures Name Priority Associated Diagnoses Date/Ti me COLONOSCOPY, DIAGNOSTIC (WRV U 3.26) Encounter for colorectal cancer screening Scheduled Referrals Name Type Priority Associated Diagnoses Orde r Schedule Referral to Spine Center Outpatient Referral Routine Osteoarthritis of cervical spine with myelopathy Ordered: 04/19/2016 documented as of this encounter Visit Diagnoses Diagnosis Osteoarthritis of cervical spine with myelopathy documented in this encounter Care Teams Filtration Plant Operator Relationship Specialty Start Date End Date Connie Gayle ND PCP - General Naturopathic Medicine 01/25/16 09/27/17 documented as of this encounter
--- OUTSIDE RECORDS SUMMARY | 2024-06-27 15:17 | XMS_ITS | Encounter Summary ---
[place] [address] Care Team Providers Care Pipelines Supervisor Name Role Phone Connie Gayle SUDEEP Primary Care Provider +1- [phone] Reason for Referral * Diagnostic Test (Routine) - Closed Specialty Diagnoses / Procedures Referred By Contac t Referred To Contact Radiology Diagnoses Right shoulder pain, unspecified chronicity Procedures MRI Shoulder Right WO Contrast (GENERIC) Eusebio Dmoinguez MD [facility] [place] [address] [place] [address] Referral ID Status Reason Start Date Expiration Date V isits Requested Visits Authorized [id number] Closed Specialty Service Requested 05/02/2016 07/31/2016 1 1 Reason for Visit * Diagnostic Test (Routine) - Closed Specialty Diagnoses / Procedures Referred By Contervin t Referred To Contact Radiology Diagnoses Right shoulder pain, unspecified chronicity Procedures MRI Shoulder Right WO Contrast (GENERIC) Eusebio Dominguez MD [facility] [place] [address] [place] [address] Referral ID Status Reason Start Date Expiration Date V isits Requested Visits Authorized [id number] Closed Specialty Service Requested 05/02/2016 07/31/2016 1 1 Encounter Details Date Type Department Care Team (Latest Contact Info) Description 05/08/2016 8:12 PM EDT - 05/08/2016 11:59 PM EDT Hospital Encounter MRI at [facility] [place] [address] Eusebio Dominguez MD [facility] [place] [address] Right shoulder pain, unspecified chronicity Discharge Disposition: Home Social History Tobacco Use [...] Sig Dispensed Refills Start Date End Date ibuprofen (ADVIL;MOTRIN) 200 mg Tablet Take 200 mg by mouth every 6 hours as needed for Pain. 06/21/2016 aspirin 325 mg Tablet Take 325 mg by mouth daily. 06/21/2016 magnesium 250 mg Tablet Take 1 tablet by mouth daily. 11/23/2017 zinc sulfate (ZINCATE) 220 (50) mg Capsule Take 220 mg by mouth daily. 06/21/2016 documented as of this encounter Plan of Treatment Scheduled Procedures Name Priority Associated Diagnoses Date/Ti me COLONOSCOPY, DIAGNOSTIC (WRV U 3.26) Encounter for colorectal cancer screening documented as of this encounter Procedures Procedure Name Priority Date/Time Associated Diagnosis Comments MRI SHOULDER RIGHT WO CONTRAST Routine 05/08/2016 9:04 PM EDT Right shoulder pain, unspecified chronicity documented in this encounter Results * MRI Shoulder Right [...] Franklin Colin at 05/09/2016 9:50 AM Eusebio Dominguez MD IMG MRI ORDERABLE S documented in this encounter Visit Diagnoses Diagnosis Right shoulder pain, unspecified chronicity documented in this encounter Care Teams Pipelines Supervisor Relationship Specialty Start Date End Date Connie Gayle ND PCP - General Naturopathic Medicine 01/25/16 09/27/17 documented as of this encounter
--- OUTSIDE RECORDS SUMMARY | 2024-06-27 15:17 | XMS_ITS | Encounter Summary ---
Author Organization [facility] Address [facility] [place] [address] Care Team Providers Care Music Sound Light Technician Name Role Phone Deonte Ta ND Primary Care Provider +1- [phone] Encounter Details Date Type Department Care Team (Latest Contact Info) Description 06/01/2016 2:38 PM EDT - 06/01/2016 11:59 PM EDT Hospital Encounter XRay at [address] [place] [address] Eusebio Dominguez MD [facility] [place] [address] Chronic right shoulder pain Discharge Disposition: Home Social History Tobacco [...] Sig Dispensed Refills Start Date End Date HYDROcodone-ibuprofen (VICOPROFEN) 7.5-200 mg TabletIndications:Chroni c right shoulder pain Take 1 tablet by mouth every 8 hours as needed for Pain. 20 tablet 05/11/2016 04/17/2019 ibuprofen (ADVIL;MOTRIN) 200 mg Tablet Take 200 mg by mouth every 6 hours as needed for Pain. 06/21/2016 aspirin 325 mg Tablet Take 325 mg by mouth daily. 06/21/2016 magnesium 250 mg Tablet Take 1 tablet by mouth daily. 11/23/2017 zinc sulfate (ZINCATE) 220 (50) mg Capsule Take 220 mg by mouth daily. 06/21/2016 documented as of this encounter Progress Notes * Viky Colunga, DICTIONARY EDITOR - 05/24/2016 2:25 PM EDT Images from [...] female with history of partial thickness rotator cuff tear seen on MRI. Dr. Dominguez recommends fluoro-guided steroid injection of the right shoulder. Questioning whether pain is from shoulder or neck. MRI with glenohumeral joint and AC joint arthropathy and possibly early adhesive capsulitis. Patient Active Problem [...] Name Priority Date/Time Associated Diagnosis Comments XR FLUORO INJECTION DRAINAGE JOINT LG RIGHT Routine 06/01/2016 3:36 PM EDT Chronic right shoulder pain documented in this encounter Results * XR Fluoro Injection [...] pre- procedural time-out was performed as per [facility] protocol. The patient was placed supine on [...] A pre- proceduraltime-out was performed as per [facility] protocol. The patient was placed supine on [...] None present Attending: Cristi Eusebio Dominguez MD IMG FLUORO ORDERA BLES documented in this encounter Visit Diagnoses Diagnosis Chronic right shoulder pain Pain in joint, shoulder region documented in this encounter Administered Medications Inactive Administered Medications - up to 3 most recent administrations Medication Order MAR Action Action Date Dose Rate Site ROpivacaine (PF) 5 mg/mL (0.5 %) 4 mL with triamcinolone acetonide 40 mg injection Intra-articular, ONCE, 1 dose, On Sonal 06/01/16 at 1600 Given 06/01/2016 4:00 PM EDT documented in this encounter Care Teams Music Sound Light Technician Relationship Specialty Start Date End Date Deonte Ta ND PCP - General Naturopathic Medicine 01/25/16 09/27/17 documented as of this encounter
--- OUTSIDE RECORDS SUMMARY | 2024-06-27 15:17 | XMS_ITS | Encounter Summary ---
[place] [address] Care Team Providers Care Floor Tech Name Role Phone Connie Gayle ND Primary Care Provider [phone]- [phone] Encounter Details Date Type Department Care Team (Late st Contact Info) Description 04/19/2016 Orders Only [place] [address] Eusebio Dominguez MD [facility] [place] [address] Displaced fracture of distal end of right [...] sequela documented in this encounter Care Teams Floor Tech Relationship Specialty Start Date End Date Connie Gayle ND PCP - General Naturopathic Medicine 01/25/16 09/27/17 documented as of this encounter
--- OUTSIDE RECORDS SUMMARY | 2024-06-27 15:17 | XMS_ITS | Encounter Summary ---
[place] [address] Care Team Providers Care Metal Sprayer Protective Coating Name Role Phone April Cummins Tanvir HENLEY Primary Care Provider [phone] Encounter Details Date Type Department Care Team (Late st Contact Info) Description 01/23/2018 11:30 AM EST Office [place] [address] Beth Guerra APRN [address] [place] [address] Bloating; Upper abdominal pain; Diarrhea, unspecified type; Irritable bowel syndrome with diarrhea Social History [...] * Patient Instructions* Beth Guerra APRN - 01/23/2018 11:30 AM EST 1. Abdominal x-ray today in 3L to rule out an obstruction 2. Stool studies at your convenience. Send me a message 2-3 weeks after testing if you don't hear from me 3. Hydrogen breath test 4. Follow up as needed documented in this encounter Progress Notes * Beth Guerra APRN - 01/23/2018 11:30 AM EST TECHNICAL SOLUTIONS ENGINEER: Beth Guerra APRN PCP: April Cummins APRN [...] or liver issues, and IBD. PHYSICAL EXAM: GENERAL: [...] to meet JEANINE IV criteria for IBS. Consider overflow diarrhea. Consider pelvic floor dysfunction. She has [...] this 26 minute visit were spent in [id number] discussion and counseling the patientas detailed per above. Signed, Beth Guerra APRN 01/23/18 12:04 PM Section of Gastroenterology & Hepatology [facility] documented in this encounter Plan of Treatment Scheduled Procedures Name Priority Associated Diagnoses Date/Ti mn COLONOSCOPY, DIAGNOSTIC (WRV U 3.26) Encounter for colorectal cancer screening documented as of this encounter Results * XR Abdomen 1 [...] Mariscal at 01/23/2018 5:08 PM Beth Guerra ADMINISTRATIVE ANALYST IMG DX ORDERABLE S documented in this encounter Visit Diagnoses Diagnosis Bloating Flatulence, eructation, and gas pain Upper abdominal pain Abdominal pain, other specified site Diarrhea, unspecified type Irritable bowel syndrome with diarrhea Irritable bowel syndrome Bloating Flatulence, eructation, and gas pain Upper abdominal pain Abdominal pain, other specified site documented in this encounter Care Teams Metal Sprayer Protective Coating Relationship Specialty Start Date End Date April Cummins APRN [address] [place] [address] PCP - General Internal Medicine 09/28/17 02/27/18 documented as of this encounter
--- OUTSIDE RECORDS SUMMARY | 2024-06-27 15:17 | XMS_ITS | Encounter Summary ---
Author Organization [facility] [place] [address] Care Team Providers Care Quality Engineering Manager Name Role Phone April Cummins APRN Primary Care Provider [phone] Reason for Visit * Consultation (Routine) - Closed Specialty Diagnoses / Procedures Referred By Rafael mart Referred To Contact Rheumatology Diagnoses arthralgia, fatigue April Cummins, BOAT WRAPPER [address] [place] [address] [facility] [address] [place] [phone] Referral ID Status Reason Start Date Expiration Date V isits Requested Visits Authorized [id number] Closed Consult, Test & Treat [facility] 11/13/2017 11/13/2018 1 1 Encounter Details Date Type Department Care Team (Late st Contact Info) Description 11/23/2017 10:00 AM EST Office [place] [address] Yeny Manuel MD [facility] [place] [address] Chronic fatigue; Chronic abdominal pain; Arthralgia, unspecified joint; Myalgia Social History Tobacco Use Types Packs/Day [...] Sign Reading Time Taken Comments Blood Pressure 99/59 11/23/2017 9:52 AM EST Pulse 59 11/23/2017 9:52 AM EST Temperature - - Respiratory Rate 18 11/23/2017 9:52 AM EST Oxygen Saturation 97% 11/23/2017 9:52 AM EST Inhaled Oxygen Concentration - - Weight 58.5 kg (129 lb) 11/23/2017 9:52 AM EST Height 167.6 cm (5' 6) 11/23/2017 9:52 AM EST Body Mass Index 20.82 11/23/2017 9:52 AM EST documented in this encounter Progress Notes * Yeny Manuel MD - 11/23/2017 10:00 AM EST Outpatient Rheumatology Consult CC: Asked by April Cummins to evaluate this patient with arthralgias, fatigue. HPI: Kalyn is 57 yo F with history of IBS with diarrhea, pelvic floor dysfunction, obstructive sleep apnea, anxiety, depression, chronic neck pain status post C4 C6 fusion around 2008. Had fatigue for years. Over last year, this time noticed more diarrhea, bloating, abdominal cramps. Takes intestinal repair, enteric coated peppermint oil except one polyp, probiotics help. Went off sugars, decreased carbs and felt bettter. Generalized aches, more pain in hips R>L for about 4 years. S/P RLE/ankle fracture and hurts. Good and bad days. Morning stiffness is variable lasting for one and half day to no stiffness. ANIBAL, uses mouth appliance. Waiting on getting tested for CPAP. Cannot cross country ski because of worsening neck pain. Had oral surgery the other day and had to take hydrocodone for pain and felt better. PMH: History of irritable bowel syndrome with diarrhea and right upper quadrant pain Obstructive sleep apnea Anxiety, depression, C4-C6 fusion around 2008 S/P RLE/ankle fracture Plelvic floor dysfunction, scheduled for Pelvic floor therapy History of eczema Social Hx: Never smoker, endorses exposure to second hand smoking. No alcohol or illicit drug use. Stays at home. Draws and paints. Family Hx: No known AI disease in family. ? GI symptoms in parents. She is on gluten free diet and it helps. ROS: Gen: no night sweats, fevers. Fatigue. Skin: no rashes. Noticed hair loss over 3 years, more than over one year. No evidence of patchy areas. Mouth: denies dry mouth, no oral ulcers Eyes: no erythema or pain Lymph: no adenopathy Vascular: no Raynaud's, no digital ischemia Heart: no chest pain, palpitations Lungs: no dyspnea, cough, wheezing Abd: no pain, GERD, diarrhea, constipation : no dysuria, no flank pain Musculoskeletal: per HPI Physical Exam: Gen: Patient is awake, alert and oriented x 3, in no distress Skin: warm and dry, no rheumatologic rashes Lymph: no cervical or submandibular adenopathy Thyroid: no nodules or thyromegaly Mouth: moist mucous membranes, no oral ulcers Eyes: normal sclerae Heart: regular rate, no murmurs, rubs or gallops Lungs: clear to auscultation b/l Spine: normal ROM and no tenderness Musculoskeletal: No active synovitis. FROM in all joints. Right groin pain with right hip range of motion. Possibly in the setting of long-standing right lower extremity pain status post fracture. Tender FM points and sensitivity in the arms. H istory of eczema. No rash today. Labs: 09/18/17 Endomysial antibodies negative rheumatoid factor less than 20, 90 negative, CRP less than point (less than 2 panel less than 0.35 Tick borne panel negative. CBC within normal limits. CMP within normal limits TSH normal 2.72 11/23/2016 KAVEH by IFA, Celiac Panel Negative COLONOSCOPY 04/2017 WNL per GI Impression/Recommendations: Kalyn is 57 yo F with history of IBS with diarrhea, pelvic floor dysfunction, obstructive sleep apnea, anxiety, depression, chronic neck pain status post C4 C6 fusion around 2008. Presenting with f generalized atigue and arthralgias for years. Serologies including inflammatory markers negative. Review of systems negative for connective tissue disease. No evidence of inflammation on exam except right groin pain with range of motion. Patient not interested in getting hip x-ray at this time. Agreeswith the possible explanation. Worsening symptoms over the last 1 year. Hopefully she will feel better with the below mentioned interventions. Based on history, exam, I believe she has fibromyalgia. Risk factors, IBS with diarrhea, pelvic floor dysfunction, ANIBAL, chronic neck pain s/p ACFS C4-6 She will follow up on getting CPAP Interested in fibro SMA. Referral made. Plelvic floor dysfunction, scheduled for Pelvic floor therapy. On fluoxetine for years. Would like to get off it. Encouraged to discuss with PCP about changing tocymbalta to help with chronic pain and mood. Discussed about low impact aerobic exercises including walking, aqua therapy would like to find outabout the food which is closer to her home. Discussed in detail about the impression and provided education material on fibromyalgia. F/U in 3 months documented in this encounter Plan of Treatment Scheduled Procedures Name Priority Associated Diagnoses Date/Ti me COLONOSCOPY, DIAGNOSTIC (WRV U 3.26) Encounter for colorectal cancer screening documented as of this encounter Visit Diagnoses Diagnosis Chronic fatigue Other malaise and fatigue Chronic abdominal pain Abdominal pain, unspecified site Arthralgia, unspecified joint Myalgia Mylagia and myositis, unspecified documented in this encounter Care Teams Quality Engineering Manager Relationship Specialty Start Date End Date April Cummins APRN [address] [place] [address] PCP - General Internal Medicine 09/28/17 02/27/18 documented as of this encounter
--- OUTSIDE RECORDS SUMMARY | 2024-06-27 15:17 | XMS_ITS | Encounter Summary ---
Author Organization [facility] Address [facility] [place] [address] Care Team Providers Care Beef Farmer Name Role Phone Connie Gayle ND Primary Care Provider [phone]- [phone] Encounter Details Date Type Department Care Team (Latest Contact Info) Description 02/03/2016 2:49 PM EST - 02/03/2016 11:59 PM EST Hospital Encounter XRay at [address] [place] [address] Eusebio Dominguez MD [facility] [place] [address] Displaced fracture of distal end of right [...] Comments XR WRIST 3 VIEWS RIGHT Routine 02/03/2016 3:00 PM EST Displaced fracture of distal end of right [...] encounter documented in this encounter Care Teams Beef Farmer Relationship Specialty Start Date End Date Connie Gayle ND PCP - General Naturopathic Medicine 01/25/16 09/27/17 documented as of this encounter
--- OUTSIDE RECORDS SUMMARY | 2024-06-27 15:17 | XMS_ITS | Encounter Summary ---
Author Organization [facility] [place] [address] Care Team Providers Care Technical Publications Manager Name Role Phone Rosita Cumminsyce Tanvir HENLEY Primary Care Provider [phone] Encounter Details Date Type Department Care Team (Latest Contact Info) Description 01/02/2018 - 01/02/2018 11:59 PM EST Hospital Encounter [place] [address] Beth Guerra, WEDDING DESIGNER [address] [place] [address] Discharge Disposition: Home Social History Tobacco Use [...] Comments FILM LIBRARY STORAGE ONLY DX CHEST Routine 01/02/2018 12:00 AM EST documented in this encounter Results * Film Library- Storage Only DX Chest (01/02/2018 12:00 AM EST) Narrative DENISE - 01/31/2018 4:39 PM EST This exam is for storage only and is auto-finalizing. Beth Guerra APRN IMG FILM LIBRARY ORDERABLES Performing Organization Address City/State/[facility] Co de Phone Number [place], [place] documented in this encounter Visit Diagnoses Not on filedocumented in this encounter Care Teams Technical Publications Manager Relationship Specialty Start Date End Date April Cummins APRN [address] [place] [address] PCP - General Internal Medicine 09/28/17 02/27/18 documented as of this encounter
--- OUTSIDE RECORDS SUMMARY | 2024-06-27 15:17 | XMS_ITS | Encounter Summary ---
[place] [address] Care Team Providers Care Middle School Band Teacher Name Role Phone Connie Gayle SUDEEP Primary Care Provider +1- [phone] Reason for Visit * Reason Onset Date Comments Questions 05/03/2016 Encounter Details Date Type Department Care Team (Late st Contact Info) Description 05/03/2016 Telephone [place] [id number] Eusebio Dominguez MD [facility] DR [place] [address] Questions Social History Tobacco Use Types Packs/Day [...] encounter Miscellaneous Notes * Telephone Encounter - BenjieAnn villela Gus - 05/03/2016 10:56 AM EDT Patient is calling about an upcoming MRI and is wondering if her forearm and hand should be included because her PCP states that problems in her [...] on filedocumented in this encounter Care Teams Middle School Band Teacher Relationship Specialty Start Date End Date Connie Gayle ND PCP - General Naturopathic Medicine 01/25/16 09/27/17 documented as of this encounter
--- OUTSIDE RECORDS SUMMARY | 2024-06-27 15:17 | XMS_ITS | Encounter Summary ---
Author Organization [facility] [place] [address] Care Team Providers Care Senior Account Executive Name Role Phone Connie Gayle SUDEEP Primary Care Provider +1- [phone] Reason for Visit * Reason Comments Neck Pain Bilateral Arm Pain pain , fingers numbn ess/weakness * Consultation (Routine) - Closed Specialty Diagnoses / Procedures Referred By Rafael mart Referred To Contact Orthopaedics Diagnoses Osteoarthritis of cervical spine with myelopathy Eusebio Dominguez MD [facility] [place] [address] [facility] [address] [place] [phone] Referral ID Status Reason Start Date Expiration Date V isits Requested Visits Authorized [id number] Closed Consult, Test & Treat 04/19/2016 04/19/2017 1 1 Encounter Details Date Type Department Care Team (Latest Contact Info) Description 06/21/2016 1:00 PM EDT Office [place] [address] Uriah Jeong MD [facility] [place] [address] Spondylosis of cervical region without myelopathy or [...] as of this encounter Progress Notes * Uriah Jeong MD - 06/21/2016 1:00 PM EDT I have just seen Ms. Carie Burgos [facility] at the request of Dr. Dominguez. Kalyn is a 55-year-old female who underwent a C4-5 and 5-6 decompression and fusion in [place] in 2007 or thereabouts. She had evidence of cervical myelopathy at that time, which prompted her surgery. She has relocated to the [facility] and has a constellation of symptoms including neck discomfort, difficulty while sleeping, arm pain, numbness in the hands. 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 She [...] myelopathy documented in this encounter Care Teams Senior Account Executive Relationship Specialty Start Date End Date Connie Gayle ND PCP - General Naturopathic Medicine 01/25/16 09/27/17 documented as of this encounter
--- OUTSIDE RECORDS SUMMARY | 2024-06-27 15:17 | XMS_ITS | Encounter Summary ---
[place] [address] Care Team Providers Care Protection Specialist Name Role Phone Rosita Cumminsyce Tanvir HENLEY Primary Care Provider + [phone] Reason for Visit * Reason Onset Date Comments Medication Refill 11/29/2017 Encounter Details Date Type Department Care Team (Late st Contact Info) Description 11/29/2017 Refill [place] [address] Suzan Taylor CMA GASTROENTEROLOGY DEPT Social History [...] provider said no alcohol while on the Flagylmedication. She understood, and asked that be sent to [facility]. documented in this encounter Plan of Treatment Scheduled Procedures Name Priority Associated Diagnoses Date/Ti me COLONOSCOPY, DIAGNOSTIC (WRV U 3.26) Encounter for colorectal cancer screening documented as of this encounter Visit Diagnoses Not on filedocumented in this encounter Care Teams Protection Specialist Relationship Specialty Start Date End Date April Cummins APRN [address] [place] [address] PCP - General Internal Medicine 09/28/17 02/27/18 documented as of this encounter
--- OUTSIDE RECORDS SUMMARY | 2024-06-27 15:17 | XMS_ITS | Encounter Summary ---
[place] [address] Care Team Providers Care Flow Coordinator Name Role Phone Unavailable Primary Care Provider Unavailabl e Encounter Details Date Type Department Care Team (Late st Contact Info) Description 01/19/2016 12:15 AM EST - 01/19/2016 11:59 PM EST Hospital Encounter [place] [address] [address] Aileen Mays Pain Discharge Disposition: Home Social History Tobacco [...] Diagnosis Comments FILM LIBRARY STORAGE ONLY DX WRIST Routine 01/19/2016 12:15 AM EST Pain documented in this encounter Results * Film Library- Storage only DX Wrist (01/19/2016 12:15 AM EST) Narrative RAD - 01/27/2016 11:19 AM EST See PACS for result report. Dr Aileen Mays IMG FILM LIBRARY ORD ERABLES [place], [place] documented in this encounter Visit Diagnoses Diagnosis Pain Generalized pain documented in this encounter
--- OUTSIDE RECORDS SUMMARY | 2024-06-27 15:17 | XMS_ITS | Encounter Summary ---
[place] [address] Care Team Providers Care Gis Software Engineer Name Role Phone April Cummins APRN Primary Care Provider [phone] Reason for Referral * Physical Therapy (Routine) - Specialty Diagnoses / Procedures Referred By Rafael mart Referred To Contact Physical Therapy Diagnoses Irritable bowel syndrome with diarrhea Bloating Beth Guerra APRN [address] [place] [address] [facility] [address] [place] [address] Referral ID Status Reason Start Date Expiration Date V isits Requested Visits Authorized [id number] Evaluate and Treat 10/31/2017 10/31/2018 12 12 Reason for Visit * Reason Comments GI Problem * Consultation (Routine) - Closed Specialty Diagnoses / Procedures Referred By Rafael mart Referred To Contact Gastroenterology Diagnoses Irritable bowel syndrome April Cummins APRN [address] [place] [address] [facility] [address] [place] [address] Referral ID Status Reason Start Date Expiration Date V isits Requested Visits Authorized [id number] Closed Consult, Test & Treat [facility] 09/28/2017 09/28/2018 1 1 Encounter Details Date Type Department Care Team (Late st Contact Info) Description 10/31/2017 2:30 PM EST Office Visit Gastroenterology at [facility] [place] [address] Beth Guerra, BARIATRIC COORDINATOR [address] [place] [address] Irritable bowel syndrome with diarrhea; Bloating; Pelvic floor dysfunction Social History Tobacco Use [...] kg (126 lb 9.6 oz) 10/31/2017 2:40 P M EST Height 167.6 cm (5' 6) 10/31/2017 2:40 PM EST Body Mass Index 20.43 10/31/2017 2:40 PM EST documented in this encounter Patient Instructions * Patient Instructions* Beth Guerra, BARIATRIC COORDINATOR - 10/31/2017 2:30 PM EST 1. Enteric [...] needed. documented in this encounter Progress Notes * Beth Guerra APRN - 10/31/2017 2:30 PM EST RAMP SERVICE AGENT: Beth Guerra APRN PCP: April Cummins APRN REQUESTING PROVIDER: April Cummins APRN REASON FOR CONSULTATION This is a 56 y.o. female with a history significant for DJD. I am seeing her as a new patient todayin consult for IBS. GI PROBLEM LIST 1. [...] No bruits. No tenderness to deep palpation inall 4 quadrants. No organomegaly. EXT: No cyanosis, [...] However, this is improved since completing a Sabrina cleanse. She currently complains of constant bowel fullness. Colonoscopy in April 2017 was normal except for a TA. She does meetROME IV criteria for IBS with the diarrhea [...] cover rifaximin. Recommend enteric-coated peppermint oil for abdominal pain and spasms. Recommend bathroom routines. Recommend pelvic floor physical therapy. Recommend limiting fiber to 25 g per day. She does eat very healthfully, which can sometimes make bloating worse. Recommend smooth move tea or senna at bedtime to facilitate a morning bowel movement in the event thatshe feels constipated. 1. IBS-Diarrhea predominance Rifaximin 550mg three times daily x 14 days. Consider metronidazole. Low-FODMAP x 2 weeks, following treatment with rifaximin. [...] this 62 minute visit were spent in [id number] discussion and counseling the patientas detailed per above. Signed, Beth Guerra APRN 11/01/17 8:56 AM Section of Gastroenterology & Hepatology [facility] documented in this encounter Plan of [...] wasting documented in this encounter Care Teams Gis Software Engineer Relationship Specialty Start Date End Date April Cummins, BARIATRIC COORDINATOR [address] [place] [address] PCP - General Internal Medicine 09/28/17 02/27/18 documented as of this encounter
--- OUTSIDE RECORDS SUMMARY | 2024-06-27 15:17 | XMS_ITS | Encounter Summary ---
[place] [address] Care Team Providers Care Tactical Air Control Party Manager Name Role Phone Connie Gayle ND Primary Care Provider [phone]- [phone] Reason for Visit * Reason Onset Date Comments Other 05/03/2016 Patient called karlene sands, asking questions that should be directed to her PCP or Dr. Dominguez Encounter Details Date Type Department Care Team (Late st Contact Info) Description 05/03/2016 [place] [address] [address] Aileen Mays (Patient called very confused, asking questions that should be directed to her PCP or Dr. Dominguez) Social History Tobacco Use Types Packs/Day Years [...] encounter Miscellaneous Notes * Telephone Encounter - Teresa Ramires Radha - 05/03/2016 12:14 PM EDT Patient called in a confused state saying that a hospital in [place] was supposed to send a prior MRI and that she is getting bombarded with her regular medical records instead. The [facility] asked her to address her request to the Radiology department there since that is who would send the imaging and the reports. She is unwilling at this time to do this. She then went into great detailabout her cervical spine problems and issues with [...] Dominguez who ordered the shoulder MRI. She agreedto be transferred to Orthopedics-05.03.2016 [facility] documented in this encounter Plan of Treatment Scheduled Procedures Name Priority Associated Diagnoses Date/Ti me COLONOSCOPY, DIAGNOSTIC (WRV U 3.26) Encounter for colorectal cancer screening documented as of this encounter Visit Diagnoses Not on filedocumented in this encounter Care Teams Tactical Air Control Party Manager Relationship Specialty Start Date End Date Connie Gayle ND PCP - General Naturopathic Medicine 01/25/16 09/27/17 documented as of this encounter
--- OUTSIDE RECORDS SUMMARY | 2024-06-27 15:17 | XMS_ITS | Encounter Summary ---
Author Organization [facility] Address [facility] [place] [address] Care Team Providers Care Computer Hardware Developer Name Role Phone Connie Gayle ND Primary Care Provider [phone]- [phone] Encounter Details Date Type Department Care Team (Latest Contact Info) Description 06/15/2017 - 06/15/2017 11:59 PM EDT Hospital Encounter [place] [address] Yeny Manuel MD [facility] [place] [address] Discharge Disposition: Home Social History Tobacco Use [...] Start Date End Date UNABLE TO FIND Tumeric 1-2 tablets daily 11/23/2017 HYDROcodone-ibuprofen (VICOPROFEN) 7.5-200 mg TabletIndications:Chron ic right shoulder pain Take 1 tablet by mouth every 8 hours as needed for Pain. 20 tablet 05/11/2016 04/17/2019 magnesium 250 mg Tablet Take 1 tablet by mouth daily. 11/23/2017 documented as of this encounter Plan of Treatment Scheduled Procedures Name Priority Associated Diagnoses Date/Ti me COLONOSCOPY, DIAGNOSTIC (WRV U 3.26) Encounter for colorectal cancer screening documented as of this encounter Procedures Procedure Name Priority Date/Time Associated Diagnosis Comments FILM LIBRARY STORAGE ONLY CT ABDOMEN AND PELVIS Routine 06/15/2017 12:00 AM EDT documented in this encounter Results * Film Library- Storage Only CT Abdomen & Pelvis (06/15/2017 12:00 AM EDT) Narrative SHANE WALKER - 01/31/2018 1:30 PM EST This exam is for storage only and is auto-finalizing. Yeny Manuel MD IMG FILM LIBRARY ORD ERABLES [place], [place] documented in this encounter Visit Diagnoses Not on filedocumented in this encounter Care Teams Computer Hardware Developer Relationship Specialty Start Date End Date Connie Gayle ND PCP - General Naturopathic Medicine 01/25/16 09/27/17 documented as of this encounter
--- OUTSIDE RECORDS SUMMARY | 2024-06-27 15:17 | XMS_ITS | Encounter Summary ---
Author Organization [facility] Address [facility] [place] [address] Care Team Providers Care Advance Scout Name Role Phone Connie Gayle ND Primary Care Provider [phone]- [phone] Encounter Details Date Type Department Care Team (Latest Contact Info) Description 03/08/2016 9:00 AM EDT - 03/08/2016 11:59 PM EDT Hospital Encounter XRay at [address] [place] [address] Eusebio Dominguez MD [facility] [place] [address] Displaced fracture of distal end of right [...] Comments XR WRIST 3 VIEWS RIGHT Routine 03/08/2016 10:18 AM EDT Displaced fracture of distal end [...] sequela documented in this encounter Care Teams Advance Scout Relationship Specialty Start Date End Date Connie Gayle ND PCP - General Naturopathic Medicine 01/25/16 09/27/17 documented as of this encounter
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
--- OUTSIDE RECORDS SUMMARY | 2024-06-27 15:17 | XMS_ITS | Encounter Summary ---
[place] [address] Care Team Providers Care Manager Net Name Role Phone Placido April Tanvir HENLEY Primary Care Provider [phone] Reason for Referral * Diagnostic Test (Routine) - Closed Specialty Diagnoses / Procedures Referred By Rafael mart Referred To Contact Radiology Diagnoses Upper abdominal pain Bloating Procedures CT Abdomen & Pelvis w Contrast Beth Guerra APRN [address] [place] [address] [facility] [place] [address] Referral ID Status Reason Start Date Expiration Date V isits Requested Visits Authorized [id number] Closed Specialty Service Requested 01/31/2018 05/01/2018 1 1 Encounter Details Date Type Department Care Team (Late st Contact Info) Description 01/25/2018 Orders [place] [address] Beth Guerra APRN [address] [place] [address] Upper abdominal pain; Bloating Social History Tobacco Use Types Packs/Day Years [...] of this encounter Progress Notes * Beth Guerra APRN - 01/25/2018 7:49 AM [...] documented as of this encounter Results * CT Abdomen & [...] kidney is unremarkable. No nephrolithiasis and no Windsor on either side. Vasculature: No aneurysm. Lymph Nodes: No enlarged lymph nodes. Bowel: Nondilated, no wall thickening. ?? Peritoneum and mesentery: No ascites, free air, or loculated fluid collection. No mesenteric inflammation. Abdominal wall: Normal. Urinary Bladder: Normal. Reproductive organs: Normal. Osseous structures: No suspicious lesions. Procedure Note Gerardo Powers MD - 02/08/2018 [...] kidney is unremarkable. No nephrolithiasis and no [place] on either side. Vasculature: No aneurysm. Lymph [...] pain documented in this encounter Care Teams Manager Net Relationship Specialty Start Date End Date April Cummins APRN [address] [place] [address] PCP - General Internal Medicine 09/28/17 02/27/18 documented as of this encounter
--- OUTSIDE RECORDS SUMMARY | 2024-06-27 15:17 | XMS_ITS | Encounter Summary ---
[place] [address] Care Team Providers Care Guest History Clerk Name Role Phone Connie Gayle ND Primary Care Provider [phone]- [phone] Encounter Details Date Type Department Care Team (Late st Contact Info) Description 01/28/2016 Telephone [place] [address] Sam Mata MD [facility] [place] [address] Social History Tobacco Use Types Packs/Day Years Used Date Smoking Tobacco: Never Assessed Sex and Gender Information Value Date Recorded Sex Assigned at Not on file Gender Identity Female 11/09/2018 9:36 PM EST Sexual Orientation Not on file documented as of this encounter Miscellaneous Notes * Telephone Encounter - Sam Mata - 01/28/2016 5:32 PM EST TELEPHONE ENCOUNTER The patient is a 55-year-old female who contacted the orthopedic on-call pager due to concern for injury to her arm. Per report of the patient, she suffered an injury to her arm about two and a half weeks ago and was seen at [facility] where she was diagnosed with, per her report, fracture of her ulna. She was placed in a soft cast with plan to followup with them. However, she reports that she has pain as well as Some mild numbness in the hand and was desirous of an outpatient appointment at this facility. I informed her at the time of her call was after hours on Sunday, and that as soon as outpatient appointments would be available on Sunday, and that I would be happy to pass her information on to the planner/scheduler with regard to getting her an appointment here. I also informed her that if she has had onset of numbness as an acute change or an increase in severity that she should probably be evaluated either here or at another facility by a medical professional. She reported that she preferred to wait for an outpatient appointment and that she was agreeable to having us try to set her one up at this time. I will pass her information on to our planner/scheduler. The patient expressed understanding of treatment plan. All questions were answered satisfactorily. documented in this encounter Plan of Treatment Scheduled Procedures Name Priority Associated Diagnoses Date/Ti me COLONOSCOPY, DIAGNOSTIC (WRV U 3.26) Encounter for colorectal cancer screening documented as of this encounter Visit Diagnoses Not on filedocumented in this encounter Care Teams Guest History Clerk Relationship Specialty Start Date End Date Connie Gayle ND PCP - General Naturopathic Medicine 01/25/16 09/27/17 documented as of this encounter
--- OUTSIDE RECORDS SUMMARY | 2024-06-27 15:17 | XMS_ITS | Encounter Summary ---
[place] [address] Care Team Providers Care Sap Data Analyst Name Role Phone Connie Gayle ND Primary Care Provider +1- [phone] Encounter Details Date Type Department Care Team (Late st Contact Info) Description 02/16/2016 9:45 AM EDT Clinical Support [place] [address] Social History Tobacco Use Types Packs/Day Years [...] filedocumented in this encounter Care Teams Sap Data Analyst Relationship Specialty Start Date End Date Connie Gayle ND PCP - General Naturopathic Medicine 01/25/16 09/27/17 documented as of this encounter
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
--- OUTSIDE RECORDS SUMMARY | 2024-06-27 15:18 | XMS_ITS | Encounter Summary ---
Author Organization [facility] [place] [address] Care Team Providers Care Aviation Tactical Readiness Officer Name Role Phone Unavailable Primary Care Provider Unavailabl e Encounter Details Date Type Department Care Team (Latest Contact Info) Description 12/10/2015 - 12/10/2015 11:59 PM EST Hospital Encounter [place] [address] Yeny Manuel MD [facility] [place] [address] Discharge Disposition: Home Social History Tobacco Use [...] FILM LIBRARY STORAGE ONLY ULTRASOUND STUDY Routine 12/10/2015 12:00 AM EST documented in this encounter Results * Film Library- Storage Only Ultrasound Study (12/10/2015 12:00 AM EST) Narrative [facility] - 01/31/2018 1:31 PM EST This exam is for storage only and is auto-finalizing. Yeny Manuel MD IM FILM LIBRARY ORD ERABLES Performing Organization Address City/State/[facility] Co de Phone Number [place], [place] documented in this encounter Visit Diagnoses Not on filedocumented in this encounter
--- OUTSIDE RECORDS SUMMARY | 2024-06-27 15:18 | XMS_ITS | Continuity of Care Document ---
Author Organization [facility] Ambulatory [facility]ics Address [address] [place] [address] Care Team Providers Care Senior Principal Process Engineer Name Role Phone IRISH SERRANO NP Primary Care Physician [phone] Encounter [facility] NBR [id number] Date(s): 03/19/24 - 03/19/24 [facility] Ambulatory [facility] [address] [place] [address] [place] Discharge Disposition: Home Allergies, Adverse Reactions, Alerts Substance Reaction Severity Status tetracycline Rash Mild Active folic acid Malabsorption Mild Active acetaminophen-oxycodone Liver problem Unknown Act ruth Bee Stings Angioedema Severe Active oxyCODONE Stomach upset Mild Active Wheat Rash Mild Active Lactose Rash Diarrhea Mild Active Sugar Hives Mild Active Assessment and Plan Future Appointments Future Scheduled Tests Radiology* MRI Spine Cervical w/o Contrast 02/07/24 * MRI Brain and IAC w/ + w/o Contrast 02/15/24 Medications AAA - Misc Prescription 90 EA, 0 Refill(s), TAKE ONE TABLET BY MOUTH THREE TIMES A DAY, 0 Refill(s) Start Date: 01/28/24 Status: Ordered baclofen 10 mg oral tablet 10 mg = 1 tab, Oral, TID, PRN spasm, # 60 tab, 0 Refill(s), Pharmacy: [facility], 170, cm, 01/01/24 15:44:00 EST, Height, 55, kg, 01/01/24 15:45:00 EST, Weight Dosing Start Date: 01/04/24 Status: Ordered baclofen 5 mg oral tablet 5 mg = 1 tab, Oral, TID, # 90 tab, 0 Refill(s), Pharmacy: [facility], 170, cm, 01/01/24 15:44:00 EST, Height, 55, kg, 01/01/24 15:45:00 EST, Weight Dosing Start Date: 01/24/24 Status: Ordered calcium (as calcium citrate) 250 mg oral tablet 250 mg = 1 tab, Oral, TID, # 270 tab, 2 Refill(s), [facility], 168, cm, 12/12/23 14:31:00 EST, Height, 55, kg, 12/12/23 14:40:00 EST, Weight Dosing Start Date: 12/24/23 Status: Ordered calcium (as carbonate)-vitamin D 500 mg-100 intl units oral tablet, chewable 160 EA, 0 Refill(s), CHEW 2 TABLETS (1000MG) ONCE A DAY, 0 Refill(s) Start Date: 01/28/24 Status: Ordered celecoxib 100 mg oral capsule 100 mg = 1 cap, Oral, BID, PRN as needed for arthritis, 0 Refill(s) Start Date: 12/11/23 Status: Ordered EPINEPHrine 0.3 mg injectable kit 0.3 mg =, Intramuscular, Once, PRN anaphylaxis, 0 Refill(s) Start Date: 12/11/23 Status: Ordered FLUoxetine 20 mg oral capsule 20 mg = 1 cap, Oral, Daily Start Date: 02/15/24 Status: Ordered FLUoxetine 40 mg oral capsule 40 mg = 1 cap, Oral, Daily Start Date: 02/15/24 Status: Ordered fluticasone 50 mcg/inh nasal spray 1 sprays, !-Nasal, BID, 0 Refill(s) Start Date: 02/15/24 Status: Ordered HYDROcodone-acetaminophen 5 mg-325 mg oral tablet 50 EA, 0 Refill(s), 0 Refill(s) Start Date: 01/28/24 Status: Ordered HYDROcodone-acetaminophen 5 mg-325 mg oral tablet 1 tab, Oral, every 6 hr, PRN as needed for pain, # 30 tab, 0 Refill(s), Pharmacy: [facility],167.64, cm, 02/20/24 10:05:00 EDT, Height, 55.5, kg, 02/20/24 10:12:00 EDT, Weight Dosing Start Date: 03/06/24 Status: Ordered methylcobalamin 1 mg oral tablet, disintegrating 1 mg = 1 tab, Sublingual, Daily, dissolve under the tongue OTC methylcobalamin, # 60 tab, 0 Refill(s) Start Date: 01/01/24 Status: Ordered FOOT ORTHOPEDIST Thyroid 15 mg oral tablet 45 mg = 3 tab, Oral, Daily, 0 Refill(s) Start Date: 12/11/23 Status: Ordered oxyCODONE 5 mg oral tablet 5 mg = 1 tab, Oral, every 6 hr, PRN as needed for pain, # 30 tab, 0 Refill(s), Pharmacy: [facility], 167.64, cm, 02/20/24 10:05:00 EDT, Height, 55.5, kg, 02/20/24 10:12:00 EDT, Weight Dosing Start Date: 02/20/24 Status: Ordered pregabalin 75 mg oral capsule 180 EA, 0 Refill(s), TAKE ONE CAPSULE BY MOUTH TWICE A DAY, 0 Refill(s) Start Date: 01/28/24 Status: Ordered pyridoxine 100 mg oral tablet 100 mg = 1 tab, Oral, Daily, # 7 tab, 0 Refill(s) Start Date: 01/01/24 Status: Ordered thyroid desiccated 15 mg oral tablet 45 mg = 3 tab, Oral, Daily, # 270 tab, 0 Refill(s), Pharmacy: [facility] #[facility], 170, cm, 01/01/24 15:44:00 EST, Height, 55, kg, 01/01/24 15:45:00 EST, Weight Dosing Start Date: 01/24/24 Status: Ordered VSL#3 oral capsule 2 cap, Oral, Daily, # 60 cap, 0 Refill(s), Pharmacy: [facility] #[facility], 170, cm, 01/01/24 15:44:00 EST, Height, 55, kg, 01/01/24 15:45:00 EST, Weight Dosing Start Date: 01/24/24 Status: Ordered Problem List Condition Confirmation Course Effective Dates Status H ealth Status Informant Oral thrush Confirmed Active Chronic pain Confirmed Active Colonic polyp Confirmed Active Constipation Confirmed Active Female urinary stress incontinence Confirmed Active Gastritis Confirmed Active Danny thyroiditis Confirmed Active History of kidney stone Confirmed Active IBS - Irritable bowel syndrome Confirmed Active Migraine Confirmed Active Numbness of hand 1 Confirmed Active ANIBAL - Obstructive sleep apnea 2 Confirmed Active Osteoarthritis Confirmed Active Periodic limb movement disorder Confirmed Active Sleep related bruxism 3 Confirmed Active 1bilat 2wears cpap at noc 3wears mouth guard Procedures Procedure Date Related Diagnosis Body Site Status Anterior Cervical Fusion 1 01/01/24 Completed Appendectomy Completed section Complete d Myomectomy Completed Open reduction and fixation of fracture 2 Completed Primary fusion of cervical spine Completed Ureterorenoscopy with fragme ntation and removal of kidney stone Complete d 1auto-populated from documented surgical case 2left 2019 Social History Social History Type Response Tobacco Never tobacco user T obacco Use:. Sex Implantable Device List Procedure Provider Procedure Date Device Type Site Anterior Cervical Fusion Augie ChavesDO (Heather) 01/01/24 Unknown Neck Device Identifier Serial Number Lot or Batch Number Manufacturing Date Expiration Date Distinct Identification Code MRI Safety Implantable Status Assigning Authority Unknown [id number] Unknown Unknown 06/20/25 Unknown Unknown Active Unknown Unknown Unknown [id number] Unknown 09/17/27 Unknown Unknown Active Unknown Unknown Unknown [id number] Unknown 12/29/27 Unknown Unknown Active Unknown Unknown Unknown [id number] Unknown 11/13/26 Unknown Unknown Active Unknown Patient Care team information Care Team Personnel Name: IRISH SERRANO NP Position: No Access Member Role: Primary Care Physician Address: Address: [address] [place] [address] Care Team Related Persons Name: RENNY BALL
--- OUTSIDE RECORDS SUMMARY | 2024-06-27 15:18 | XMS_ITS | Continuity of Care Document ---
Author Organization [facility] Ambulatory Clinics Address [address] [place] [address] Care Team Providers Care Social Services Specialist Name Role Phone ZACH PUGH, IRISH Ramey Primary Care Physician Encounter [facility] NBR [id number] Date(s): 02/13/24 - 02/13/24 [facility] Ambulatory Clinics [address] [place] [address] [place] Discharge Disposition: Home Allergies, Adverse Reactions, Alerts Substance Reaction Severity Status tetracycline Rash Mild Active folic acid Malabsorption Mild Active Bee Stings Angioedema Severe Active oxyCODONE Stomach upset Mild Active Wheat Rash Mild Active Lactose Rash Diarrhea Mild Active Sugar Hives Mild Active Assessment and Plan Future Appointments Future Scheduled Tests Radiology* MRI Spine Cervical w/o Contrast 02/07/24 * XR Spine Cervical 2 or 3 Views 01/24/24 Medications AAA - Misc Prescription 90 EA, 0 Refill(s), TAKE ONE TABLET BY MOUTH THREE TIMES A DAY, 0 Refill(s) Start Date: 01/28/24 Status: Ordered baclofen 10 mg oral tablet 10 mg = 1 tab, Oral, TID, PRN spasm, # 60 tab, 0 Refill(s), Pharmacy: [facility], 170, cm, 01/01/24 15:44:00 EST, Height, 55, kg, 01/01/24 15:45:00 EST, Weight Dosing Start Date: 01/04/24 Status: Ordered baclofen 5 mg oral tablet 5 mg = 1 tab, Oral, TID, # 90 tab, 0 Refill(s), Pharmacy: [facility], 170, cm, 01/01/24 15:44:00 EST, Height, 55, kg, 01/01/24 15:45:00 EST, Weight Dosing Start Date: 01/24/24 Status: Ordered calcium (as calcium citrate) 250 mg oral tablet 250 mg = 1 tab, Oral, TID, # 270 tab, 2 Refill(s), Pharmacy: [facility], 168, cm, 12/12/23 14:31:00 EST, [...] Refill(s) Start Date: 12/11/23 Status: Ordered FLUoxetine 10 mg oral capsule 90 EA, 0 Refill(s), TAKE ONE CAPSULE BY MOUTH EVERY DAY, 0 Refill(s) Start Date: 01/28/24 Status: Ordered FLUoxetine 20 mg oral capsule 90 EA, 0 Refill(s), TAKE ONE CAPSULE BY MOUTH EVERY DAY, 0 Refill(s) Start Date: 01/28/24 Status: Ordered FLUoxetine 40 mg oral capsule 80 mg = 2 cap, Oral, Daily, # 30 cap, 0 Refill(s) Start Date: 01/01/24 Status: Ordered fluticasone 50 mcg/inh nasal spray 2 sprays, Nostril-Both, Daily, PRN as needed for allergy symptoms, 0 Refill(s) Start Date: 11/08/23 Status: Ordered gabapentin 100 mg oral capsule 300 mg = 3 cap, Oral, every night at bedtime, 0 Refill(s) Start Date: 12/11/23 Status: Ordered HYDROcodone 10 mg oral capsule, extended release 10 mg = 1 cap, Oral, every 12 hr, # 60 cap, 0 Refill(s), Pharmacy: [facility], 170, cm,01/01/24 15:44:00 EST, Height, 55, kg, 01/01/24 15:45:00 EST, Weight Dosing Start Date: 02/13/24 Status: Ordered HYDROcodone-acetaminophen 5 mg-325 mg oral tablet 50 EA, 0 Refill(s), 0 Refill(s) Start Date: 01/28/24 Status: Ordered HYDROcodone-acetaminophen 7.5 mg-325 mg oral tablet 1 tab, Oral, TID, PRN as needed for pain, # 30 tab, 0 Refill(s), Pharmacy: [facility], 170, cm, 01/01/24 15:44:00 EST, Height, 55, kg, 01/01/24 15:45:00 EST, Weight Dosing Start Date: 01/29/24 Status: Ordered methylcobalamin 1 mg oral tablet, disintegrating 1 mg = 1 tab, Sublingual, Daily, dissolve under the tongue OTC methylcobalamin, # 60 tab, 0 Refill(s) Start Date: 01/01/24 Status: Ordered REDUCER Thyroid 15 mg oral tablet 45 mg = 3 tab, Oral, Daily, 0 Refill(s) Start Date: 12/11/23 Status: Ordered REDUCER Thyroid 30 mg oral tablet 45 EA, 0 Refill(s), TAKE ONE AND ONE-HALF TABLETS BY MOUTH EVERY DAY, 0 Refill(s) Start Date: 01/28/24 Status: Ordered oxyCODONE 5 mg oral tablet 5 mg = 1 tab, Oral, every 4 hr, PRN as needed for pain, pt cannot tolerate acetaminophen in vicodin-acetaminophen script she was given earlier, # 30 tab, 0 Refill(s), Pharmacy: [facility], 170,cm, 01/01/24 15:44:00 EST, Height, 55, kg, 01/01/24 15:45:00 EST, Weight Dosing Start Date: 01/09/24 Status: Ordered pregabalin 75 mg oral capsule [...] Daily, # 270 tab, 0 Refill(s), Pharmacy: [facility], 170, cm, 01/01/24 15:44:00 EST, Height, 55, kg, 01/01/24 15:45:00 EST, Weight Dosing Start Date: 01/24/24 Status: Ordered VSL#3 oral capsule 2 cap, Oral, Daily, # 60 cap, 0 Refill(s), Pharmacy: [facility], 170, cm, 01/01/24 15:44:00 EST, Height, [...] d 1auto-populated from documented surgical case 2left leg 2020 Social History Social History Type Response Tobacco Never tobacco user T obacco Use:. Sex Implantable Device List Procedure Provider Procedure Date Device Type Site Anterior Cervical Fusion Augie Chaves DO (Heather) 01/01/24 Unknown Neck Device Identifier Serial Number Lot or Batch Number Manufacturing Date Expiration Date Distinct Identification Code MRI Safety Implantable Status Assigning Authority Unknown [id number] Unknown Unknown 06/20/25 Unknown Unknown Active Unknown Unknown Unknown [id number] Unknown 09/17/27 Unknown Unknown Active Unknown Unknown Unknown [id number] Unknown 12/29/27 Unknown Unknown Active Unknown Unknown Unknown [id number] Unknown 11/13/26 Unknown Unknown Active Unknown Patient Care team information Care Team Personnel Name: IRISH SERRANO NP Position: No Access Member Role: Primary Care Physician Address: Address: [address] [place] [address] Care Team Related Persons Name: RENNY BALL
--- OUTSIDE RECORDS SUMMARY | 2024-06-27 15:18 | XMS_ITS | Continuity of Care Document ---
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 Name Role Phone IRISH SERRANO NP Primary Care Physician Encounter [facility] NBR [id number] Date(s): 12/10/23 - 12/10/[address] [address] [place] Encounter Diagnosis Pre-op testing(Discharge Diagnosis) - 12/10/23 Encounter for other preprocedural examination(Final) - Discharge Disposition: Home or Self Care Attending Physician: Augie Chaves DO (Heather) Admitting Physician: Augie Chaves DO (Heather) Allergies, Adverse Reactions, Alerts No Known Medication Allergies Assessment and Plan Future Appointments Medications FLUoxetine 40 mg oral capsule 90 [...] BID, # 180 cap, 1 Refill(s), Pharmacy: [facility], 167.64, cm, 11/08/23 13:10:00 EST, Height, 57.06, kg, 11/08/23 13:18:00 EST, Weight Dosing Start Date: 11/08/23 Status: Ordered Results Laboratory List Name Date CBC w/ Diff 12/10/23 Comprehensive Metabolic Panel (CMP) 12/10 PT/ INR 12/10/23 PTT 12/10/23 Automated Diff 12/10/23 Most recent to oldest [Reference Range]: 1 WBC [4.8-10.8 K/mcL] 4.7 K/mcL *LOW* (12/10/23 12:44 PM) RBC [4.20-5.40 Million/mcL] 3.95 Million /mcL *LOW* (12/10/23 12:44 PM) Neutro Auto [42.2-75.2 %] 67.1 % (12/10/23 12:44 PM) Lymph Auto [20.5-51.1 %] 26.2 % (12/10/23 12:44 PM) Craighead Auto [1.7-9.3 %] 5.3 % (12/10/23 12:44 PM) Basophil Auto [0.0-0.8 %] 0.5 % (12/10/23 12:44 PM) Prothrombin Time [9.1-10.6 seconds] 10.4 seconds (12/10/23 12:44 PM) INR [0.9-1.1] 1.0 1 (12/10/23 12:44 PM) BUN [7-25 mg/dL] 16 mg/dL (12/10/23 12:44 PM) Glucose Level [70-109 mg/dL] 147 mg/dL *HI* (12/10/23 12:44 PM) Potassium Level [3.5-5.1 mmol/L] 4.6 mmo l/L (12/10/23 12:44 PM) Baso Absolute [0.0-0.2 K/mcL] 0.0 K/mcL (12/10/23 12:44 PM) MCV [81.0-99.0 fL] 92.6 fL (12/10/23 12:44 PM) AST [13-39 IntlUnit/L] 18 IntlUnit/L (12/10/23 12:44 PM) ALT [7-52 IntlUnit/L] 27 IntlUnit/L (12/10/23 12:44 PM) MCHC [32.0-37.0 g/dL] 33.1 g/dL (12/10/23 12:44 PM) Osmolality [275-295 mOsm/kg] 276 mOsm/kg (12/10/23 12:44 PM) Sodium Level [136-145 mmol/L] 136 mmol/L (12/10/23 12:44 PM) Lymph Absolute [1.2-3.4 K/mcL] 1.2 K/mcL (12/10/23 12:44 PM) Hct [37.0-47.0 %] 36.6 % *LOW* (12/10/23 12:44 PM) Partial Thromboplastin Time [21.3-28.4 s econds] 26.6 seconds (12/10/23 12:44 PM) Calcium Level [8.6-10.3 mg/dL] 9.5 mg/dL (12/10/23 12:44 PM) Craighead Absolute [0.1-0.6 K/mcL] 0.2 K/mcL (12/10/23 12:44 PM) Albumin Level [3.5-5.7 g/dL] 4.2 g/dL (12/10/23 12:44 PM) Protein Total [6.4-8.9 g/dL] 6.2 g/dL *LOW* (12/10/23 12:44 PM) MCH [27.0-31.0 pg] 30.6 pg (12/10/23 12:44 PM) Neutro Absolute [1.4-6.5 K/mcL] 3.2 K/mc L (12/10/23 12:44 PM) Bilirubin Total [0.3-1.0 mg/dL] 0.5 mg/d L (12/10/23 12:44 PM) Hgb [12.0-16.0 g/dL] 12.1 g/dL (12/10/23 12:44 PM) Alk Phos [34-104 IntlUnit/L] 65 IntlUnit /L (12/10/23 12:44 PM) MPV [7.4-10.4 fL] 7.5 fL (12/10/23 12:44 PM) Platelets [130-400 K/mcL] 225 K/mcL (12/10/23 12:44 PM) CO2 [21-31 mmol/L] 28 mmol/L (12/10/23 12:44 PM) Eos Absolute [0.0-0.2 K/mcL] 0.0 K/mcL (12/10/23 12:44 PM) Chloride Level [98-107 mmol/L] 103 mmol/ L (12/10/23 12:44 PM) RDW-CV [11.5-14.5 %] 14.4 % (12/10/23 12:44 PM) A/G Ratio [1.0-2.5 g/dL] 2.1 g/dL (12/10/23 12:44 PM) BUN/Creat Ratio [8.0-20.0] 16.0 (12/10/23 12:44 PM) Globulin [2.3-3.5 g/dL] 2.0 g/dL *LOW* (12/10/23 12:44 PM) Slide Review Not Indicated (12/10/23 12:44 PM) Creatinine Level [0.60-1.20 mg/dL] 1.00 mg/dL (12/10/23 12:44 PM) Anion Gap [3.0-12.0] 5.0 (12/10/23 12:44 PM) Eos, Auto [0.00-3.00 %] 0.90 % (12/10/23 12:44 PM) eGFR CKD-EPI [>=60 mL/min/1.73 m2] 63 mL /min/1.73 m2 (12/10/23 12:44 PM) 1Interpretive Data: THERAPEUTIC INR RANGES FOR WARFARIN Uncomplicated venous thromboembolic disease 2-3 Lupus Anticoagulant and recurrent thrombosis 3-3.5 Mechanical prosthetic valve or recurrent thrombosis 2.5-3.5 Social History Social History Type Response Tobacco Never tobacco user T obacco Use:. Sex Patient Care team information Care Team Personnel Name: IRISH SERRANO NP Position: No Access Member Role: Primary Care Physician Address: Address: [address] [place] [address]
--- OUTSIDE RECORDS SUMMARY | 2024-06-27 15:18 | XMS_ITS | Encounter Summary ---
[place] [address] Care Team Providers Care Petrography Teacher Name Role Phone Unavailable Primary Care Provider Unavailabl e Encounter Details Date Type Department Care Team (Late st Contact Info) Description 01/19/2016 - 01/19/2016 12:14 AM EST Hospital Encounter [place] [address] [address] Davon Temporary Pain Discharge Disposition: Home [...] FILM LIBRARY STORAGE ONLY DX SPINE Routine 01/19/2016 12:00 AM EST Pain documented in this encounter Results * Film Library- Storage only DX Spine (01/19/2016 12:00 AM EST) Narrative DENISE - 01/27/2016 11:14 AM EST See PACS for result report. Dr Aileen Mays IMG FILM LIBRARY ORD ERABLES [place], [place] documented in this encounter Visit Diagnoses Diagnosis Pain Generalized pain documented in this encounter
--- OUTSIDE RECORDS SUMMARY | 2024-06-27 15:18 | XMS_ITS | Continuity of Care Document ---
Author Organization [facility] Address [address] [place] [address] Care Team Providers Care Disk Operator Name Role Phone IRISH SERRANO NP Primary Care Physician [phone] Encounter [facility] NBR [id number] Date(s): 12/24/23 - 12/24/23 [facility] [address] [place] [address]- [place] Discharge Disposition: Home Allergies, Adverse Reactions, Alerts Substance Reaction Severity Status tetracycline Rash Mild Active folic acid Malabsorption Mild Active Bee Stings Angioedema Severe Active oxyCODONE Stomach upset Mild Active Wheat Rash Mild Active Lactose Diarrhea Mild Active Sugar Hives Mild Active Assessment and Plan Future Appointments Medications BACLOFEN 10 MG TABLET BACLOFEN 10 MG TABLET, 1 tab, Oral, TID, PRN muscle pain, 0 Refill(s) Start Date: 12/11/23 Status: Ordered calcium (as calcium citrate) 250 mg oral tablet 250 mg = 1 tab, Oral, TID, # 270 tab, 2 Refill(s), Pharmacy: [facility], 168, cm, 12/12/23 14:31:00 EST, Height, 55, kg, 12/12/23 14:40:00 EST, Weight Dosing Start Date: 12/24/23 Status: Ordered calcium (as carbonate)-vitamin D 500 mg-100 intl units oral tablet, chewable 2 tab, Chewed, Daily, 0 Refill(s) Start Date: 12/25/23 Status: Ordered celecoxib 100 mg oral capsule 100 mg = 1 cap, Oral, BID, PRN as needed for arthritis, 0 Refill(s) Start Date: 12/11/23 Status: Ordered EPINEPHrine 0.3 mg injectable kit 0.3 mg =, Intramuscular, Once, PRN anaphylaxis, 0 Refill(s) Start Date: 12/11/23 Status: Ordered FLUoxetine 40 mg oral capsule 1.5 caps, Oral, Daily, 0 Refill(s) Start Date: 11/08/23 Status: Ordered fluticasone 50 mcg/inh nasal spray 2 sprays, Nostril-Both, Daily, PRN as needed for allergy symptoms, 0 Refill(s) Start Date: 11/08/23 Status: Ordered gabapentin 100 mg oral capsule 300 mg = 3 cap, Oral, every night at bedtime, 0 Refill(s) Start Date: 12/11/23 Status: Ordered NETWORK CONTROL OPERATORS SUPERVISOR Thyroid 15 mg oral tablet 45 mg = 3 tab, Oral, Daily, 0 Refill(s) Start Date: 12/11/23 Status: Ordered Problem List Condition Confirmation Course Effective Dates Status H ealth Status Informant Colonic polyp Confirmed Active Constipation Confirmed Active [...] Procedure Date Related Diagnosis Body Site Status Appendectomy Completed section Complete d Myomectomy Completed Open reduction and fixation of fracture 1 Completed Primary fusion of cervical spine Completed Ureterorenoscopy with fragme ntation and removal of kidney stone Complete d 1left leg 2020 Social History Social History Type Response Tobacco Never tobacco user T obacco Use:. Sex Patient Care team information Care Team Personnel Name: IRISH SERRANO NP Position: No Access Member Role: Primary Care Physician Address: Address: [address] [place] [address] Care Team Related Persons Name: RENNY BALL
--- OUTSIDE RECORDS SUMMARY | 2024-06-27 15:18 | XMS_ITS | Continuity of Care Document ---
Author Organization [facility] Address [address] [place] [address] Care Team Providers Care Maintenance Aide Name Role Phone IRISH SERRANO NP Primary Care Physician Encounter [facility] NBR [id number] Date(s): 02/15/24 - 02/15/[address] [address] Discharge Disposition: Home or Self Care Attending Physician: KAROL Garvin Admitting Physician: KAROL Garvin Referring Physician: KAROL Garvin Allergies, Adverse Reactions, Alerts Substance Reaction Severity [...] spasm, # 60 tab, 0 Refill(s), Pharmacy: [facility], 170, cm, 01/01/24 15:44:00 EST, Height, 55, kg, 01/01/24 15:45:00 EST, Weight Dosing Start Date: 01/04/24 Status: Ordered baclofen 5 mg oral tablet 5 mg = 1 tab, Oral, TID, # 90 tab, 0 Refill(s), Pharmacy: [facility], 170, cm, 01/01/24 15:44:00 EST, Height, 55, kg, 01/01/24 15:45:00 EST, Weight Dosing Start Date: 01/24/24 Status: Ordered calcium (as calcium citrate) 250 mg oral tablet 250 mg = 1 tab, Oral, TID, # 270 tab, 2 Refill(s), Pharmacy: [facility], 168, cm, 12/12/23 14:31:00 EST, Height, 55, [...] 0 Refill(s) Start Date: 02/15/24 Status: Ordered HYDROcodone 10 mg oral capsule, extended release 10 mg = 1 cap, Oral, every 12 hr, # 60 cap, 0 Refill(s), Pharmacy: [facility], 170, cm,01/01/24 15:44:00 EST, Height, 55, kg, 01/01/24 15:45:00 EST, Weight Dosing Start Date: 02/13/24 Status: Ordered HYDROcodone-acetaminophen 5 mg-325 mg oral tablet 50 EA, 0 Refill(s), 0 Refill(s) Start Date: 01/28/24 Status: Ordered HYDROcodone-acetaminophen 7.5 mg-325 mg oral tablet 1 tab, Oral, TID, PRN as needed for pain, # 30 tab, 0 Refill(s), Pharmacy: [facility], 170, cm, 01/01/24 15:44:00 EST, Height, 55, kg, 01/01/24 15:45:00 EST, Weight Dosing Start Date: 01/29/24 Status: Ordered methylcobalamin 1 mg oral tablet, disintegrating 1 mg = 1 tab, Sublingual, Daily, dissolve under the tongue OTC methylcobalamin, # 60 tab, 0 Refill(s) Start Date: 01/01/24 Status: Ordered NAIL GALVANIZER Thyroid 15 mg oral tablet 45 mg = 3 tab, Oral, Daily, 0 Refill(s) Start Date: 12/11/23 Status: Ordered oxyCODONE 5 mg oral tablet 5 mg = 1 tab, Oral, every 4 hr, PRN as needed for pain, pt cannot tolerate acetaminophen in vicodin-acetaminophen script she was given earlier, # 30 tab, 0 Refill(s), Pharmacy: [facility], 170,cm, 01/01/24 15:44:00 EST, Height, 55, [...] Daily, # 270 tab, 0 Refill(s), Pharmacy: [facility], 170, cm, 01/01/24 15:44:00 EST, Height, 55, kg, 01/01/24 15:45:00 EST, Weight Dosing Start Date: 01/24/24 Status: Ordered VSL#3 oral capsule 2 cap, Oral, Daily, # 60 cap, 0 Refill(s), Pharmacy: [facility], 170, cm, 01/01/24 15:44:00 EST, Height, [...] 1auto-populated from documented surgical case 2left leg 2019 Results Laboratory List Name Date CBC w/ Diff 02/15/24 Comprehensive Metabolic Panel (CMP) 02/14 Ferritin 02/15/24 Thyroid Stimulating Hormone (TSH) 4 Vitamin B12 & Folate Level 02/15/24 Automated Diff 02/15/24 Most recent to oldest [Reference Range]: 1 WBC [4.8-10.8 K/mcL] 4.7 K/mcL *LOW* (02/15/24 12:38 PM) RBC [4.20-5.40 Million/mcL] 3.94 Million /mcL *LOW* (02/15/24 12:38 PM) Neutro Auto [42.2-75.2 %] 60.3 % (02/15/24 12:38 PM) Lymph Auto [20.5-51.1 %] 31.2 % (02/15/24 12:38 PM) Sierra Auto [1.7-9.3 %] 6.5 % (02/15/24 12:38 PM) Basophil Auto [0.0-0.8 %] 0.7 % (02/15/24 12:38 PM) BUN [7-25 mg/dL] 11 mg/dL (02/15/24 12:38 PM) Glucose Level [70-109 mg/dL] 84 mg/dL (02/15/24 12:38 PM) Potassium Level [3.5-5.1 mmol/L] 4.8 mmo l/L (02/15/24 12:38 PM) Baso Absolute [0.00-0.20 K/mcL] 0.00 K/m cL (02/15/24 12:38 PM) MCV [81.0-99.0 fL] 92.7 fL (02/15/24 12:38 PM) AST [13-39 IntlUnit/L] 19 IntlUnit/L (02/15/24 12:38 PM) ALT [7-52 IntlUnit/L] 22 IntlUnit/L (02/15/24 12:38 PM) MCHC [32.0-37.0 g/dL] 33.6 g/dL (02/15/24 12:38 PM) Osmolality [275-295 mOsm/kg] 274 mOsm/kg *LOW* (02/15/24 12:38 PM) Sodium Level [136-145 mmol/L] 138 mmol/L (02/15/24 12:38 PM) Folate Level [>=5.9 ng/mL] 19.6 ng/mL (02/15/24 12:38 PM) Lymph Absolute [1.2-3.4 K/mcL] 1.5 K/mcL (02/15/24 12:38 PM) Hct [37.0-47.0 %] 36.5 % *LOW* (02/15/24 12:38 PM) Calcium Level [8.6-10.3 mg/dL] 9.3 mg/dL (02/15/24 12:38 PM) Sierra Absolute [0.1-0.6 K/mcL] 0.3 K/mcL (02/15/24 12:38 PM) Albumin Level [3.5-5.7 g/dL] 4.3 g/dL (02/15/24 12:38 PM) Protein Total [6.0-8.3 g/dL] 6.2 g/dL (02/15/24 12:38 PM) MCH [27.0-31.0 pg] 31.2 pg *HI* (02/15/24 12:38 PM) Neutro Absolute [1.4-6.5 K/mcL] 2.8 K/mc L (02/15/24 12:38 PM) Bilirubin Total [0.3-1.0 mg/dL] 0.5 mg/d L (02/15/24 12:38 PM) Hgb [12.0-16.0 g/dL] 12.3 g/dL (02/15/24 12:38 PM) B12 Level [180-914 pg/mL] 1306 pg/mL *HI* (02/15/24:38 PM) Alk Phos [34-104 IntlUnit/L] 57 IntlUnit /L (02/15/24 12:38 PM) MPV [7.4-10.4 fL] 8.2 fL (02/15/24 12:38 PM) Ferritin Level [11.0-307.0 ng/mL] 136.1 ng/mL (02/15/24:38 PM) Platelets [130-400 K/mcL] 236 K/mcL (02/15/24 12:38 PM) CO2 [21-31 mmol/L] 30 mmol/L (02/15/24:38 PM) Eos Absolute [0.0-0.2 K/mcL] 0.1 K/mcL (02/15/24 12:38 PM) TSH [0.45-5.33 mcIntlUnit/mL] 1.76 mcInt lUnit/mL (02/15/24 12:38 PM) Chloride Level [98-107 mmol/L] 104 mmol/ L (02/15/24 12:38 PM) RDW-CV [11.5-14.5 %] 14.7 % *HI* (02/15/24:38 PM) BUN/Creat Ratio [8.0-20.0] 16.0 (02/15/24 12:38 PM) Globulin [2.3-3.5 g/dL] 1.9 g/dL *LOW* (02/15/24 PM) Creatinine Level [0.60-1.20 mg/dL] 0.70 mg/dL (02/15/24:38 PM) Anion Gap [3.0-12.0] 4.0 (02/15/24 12:38 PM) Eos, Auto [0.00-3.00 %] 1.30 % (02/15/24 12:38 PM) eGFR CKD-EPI [>=60 mL/min/1.73 m2] 96 mL /min/1.73 m2 (02/15/24 12:38 PM) Social History Social History Type Response Tobacco Never tobacco user T obacco Use:. Sex Implantable Device List Procedure Provider Procedure Date Device Type Site Anterior Cervical Fusion Augie Chaves DO (Heather) 01/01/24 Unknown Neck Device Identifier Serial Number Lot or Batch Number Manufacturing Date Expiration Date Distinct Identification Code MRI Safety Implantable Status Assigning Authority Unknown [id number] 0003 Unknown Unknown 06/20/25 Unknown Unknown Active Unknown Unknown Unknown [id number] Unknown 09/17/27 Unknown Unknown Active Unknown Unknown Unknown [id number] Unknown 12/29/27 Unknown Unknown Active Unknown Unknown Unknown [id number] 2 Unknown 11/13/26 Unknown Unknown Active Unknown Patient Care team information Care Team Personnel Name: IRISH SERRANO NP Position: No Access Member Role: Primary Care Physician Address: Address: [address] [place] [address] Care Team Related Persons Name: RENNY BALL
--- OUTSIDE RECORDS SUMMARY | 2024-06-27 15:18 | XMS_ITS | Continuity of Care Document ---
Author Organization [facility] Address [address] [place] [address] Care Team Providers Care Cutter Machine Tender Name Role Phone IRISH SERRANO NP Primary Care Physician Encounter [facility] NBR [id number] Date(s): 01/24/24 - 01/24/24 [facility] [address] [place] [address] [place] Encounter Diagnosis S/P cervical spinal fusion(Discharge Diagnosis) - 01/24/24 Danny thyroiditis(Discharge Diagnosis) - 01/24/24 Numbness of hand(Discharge Diagnosis) - 01/24/24 Sleep related bruxism(Discharge Diagnosis) - 01/24/24 Oral thrush(Discharge Diagnosis) - 01/24/24 Discharge Disposition: Home or Self Care Attending Physician: Augie Chaves DO (Heather) Allergies, Adverse Reactions, Alerts Substance Reaction Severity Status tetracycline Rash Mild Active folic acid Malabsorption Mild Active Bee Stings Angioedema Severe Active oxyCODONE Stomach upset Mild Active Wheat Rash Mild Active Lactose Rash Diarrhea Mild Active Sugar Hives Mild Active Assessment and Plan Extracted from: Title:Neurosurgery progress/SOAP Note Author:Augie Chaves DO (Heather) Date:01/24/24 1.??S/P cervical spinal fusion??Z98.1 63-year-old female??status post C3-4 ACDF.?? Patient had??somewhat of a??difficult recovery, although this is??common for her.?? She is feeling??overall improved in terms of her??presenting symptoms.?? I??discussed the restrictions that she should be in place until 6 weeks after surgery and??recommended??light aerobic activity.?? Patient would like??renewal of her baclofen and??pain medication. ??She would like??something that lasts longer.?? Extended release hydrocodone was ordered. ??Referrals were made for home??health and??physical therapy??to assist in the recovery process.?I also ordered cervical x-rays??as a baseline study. Ordered: XR Spine Cervical 2 or 3 Views, 01/24/24, Routine, Reason: s/p ACDF, please send to [facility] in [facility], Transport Mode: Ambulatory, S/P cervical spinal fusion, ABN Status: Not Required ?? 2.??Danny thyroiditis??E06.3 Patient requested rewriting of her??thyroid medication in 15 mg??increments??so that she does not need to??cut the small pills. ?? 3.??Numbness of hand??R20.0 ?? 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 5.??Oral thrush??B37.0 VSL #3 ordered per patient's request. ?? Orders: baclofen 5 mg oral tablet, 5 mg = 1 tab, Oral, TID, # 90 tab, 0 Refill(s), Pharmacy: [facility], 170, cm, 01/01/24 15:44:00 EST, Height, 55, kg, 01/01/24 15:45:00 EST, Weight Dosing VSL#3 oral capsule, 2 cap, Oral, Daily, # 60 cap, 0 Refill(s), Pharmacy: [facility], 170, cm, 01/01/24 15:44:00 EST, Height, 55, kg, 01/01/24 15:45:00 EST, Weight Dosing HYDROcodone 10 mg oral capsule, extended release, 10 mg = 1 cap, Oral, every 12 hr, # 60 cap, 0 Refill(s), Pharmacy: [facility], 170, cm, 01/01/24 15:44:00 EST, Height, 55, kg, 01/01/24 15:45:00 EST, Weight Dosing thyroid desiccated 15 mg oral tablet, 45 mg = 3 tab, Oral, Daily, # 270 tab, 0 Refill(s), Pharmacy: [facility], 170, cm, 01/01/24 15:44:00 EST, Height, 55, kg, 01/01/24 15:45:00 EST, Weight Dosing Future Appointments Future Scheduled Tests Radiology* XR Spine Cervical 2 or 3 Views 01/24/24 Medications baclofen 10 mg oral tablet 10 mg = 1 tab, Oral, TID, PRN spasm, # 60 tab, 0 Refill(s), Pharmacy: [facility], 170, cm, 01/01/24 15:44:00 EST, Height, 55, kg, 01/01/24 15:45:00 EST, Weight Dosing Start Date: 01/04/24 Status: Ordered baclofen 5 mg oral tablet 5 mg = 1 tab, Oral, TID, # 90 tab, 0 Refill(s), [facility]: [facility], 170, cm, 01/01/24 15:44:00 EST, Height, 55, kg, 01/01/24 15:45:00 EST, Weight Dosing Start Date: 01/24/24 Status: Ordered calcium (as calcium citrate) 250 mg oral tablet 250 mg = 1 tab, Oral, TID, # 270 tab, 2 Refill(s), Pharmacy: [facility], 168, cm, 12/12/23 14:31:00 EST, Height, 55, kg, 12/12/23 14:40:00 EST, Weight Dosing Start Date: 12/24/23 Status: Ordered celecoxib 100 mg oral capsule [...] hr, # 60 cap, 0 Refill(s), Pharmacy: [facility], 170, cm, 01/01/24 15:44:00 EST, Height, 55, kg, 01/01/24 15:45:00 EST, Weight Dosing Start Date: 01/24/24 Status: Ordered methylcobalamin 1 mg oral tablet, disintegrating 1 mg = 1 tab, Sublingual, Daily, dissolve under the tongue OTC methylcobalamin, # 60 tab, 0 Refill(s) Start Date: 01/01/24 Status: Ordered MATERIAL MANAGER Thyroid 15 mg oral tablet 45 mg = 3 tab, Oral, Daily, 0 Refill(s) Start Date: 12/11/23 Status: Ordered oxyCODONE 5 mg oral tablet 5 mg = 1 tab, Oral, every 4 hr, PRN as needed for pain, pt cannot tolerate acetaminophen in vicodin-acetaminophen script she was given earlier, # 30 tab, 0 Refill(s), Pharmacy: [facility], 170,cm, 01/01/24 15:44:00 EST, Height, 55, kg, 01/01/24 15:45:00 EST, Weight Dosing Start Date: 01/09/24 Status: Ordered pyridoxine 100 mg oral tablet 100 mg = 1 tab, Oral, Daily, # 7 tab, 0 Refill(s) Start Date: 01/01/24 Status: Ordered thyroid desiccated 15 mg oral tablet 45 mg = 3 tab, Oral, Daily, # 270 tab, 0 Refill(s), Pharmacy: [facility], 170, cm, 01/01/24 15:44:00 EST, Height, 55, kg, 01/01/24 15:45:00 EST, Weight Dosing Start Date: 01/24/24 Status: Ordered VSL#3 oral capsule 2 cap, Oral, Daily, # 60 cap, 0 Refill(s), Pharmacy: [facility], 170, cm, 01/01/24 15:44:00 EST, Height, [...] 1auto-populated from documented surgical case 2left 2019 Vital Signs Most recent to oldest [Reference Range]: 1 Blood Pressure [90-140/60-90 mmHg] 118/6 6mmHg (01/24/24 9:45 AM) Mean Arterial Pressure, Cuff [65-140 mmH g] 83 mmHg (01/24/24 9:45 AM) Social History Social History Type Response Tobacco Never tobacco user T obacco Use:. Sex Implantable Device List Procedure Provider Procedure Date Device Type Site Anterior Cervical Fusion Augie Chaves DO (Heather) 01/01/24 Unknown Neck Device Identifier Serial Number Lot or Batch Number Manufacturing Date Expiration Date Distinct Identification Code MRI Safety Implantable Status Assigning Authority Unknown [id number] 0003 Unknown Unknown 06/20/25 Unknown Unknown Active Unknown Unknown Unknown [id number] Unknown 09/17/27 Unknown Unknown Active Unknown Unknown Unknown [id number] 1 Unknown 12/29/27 Unknown Unknown Active Unknown Unknown Unknown [id number] 2 Unknown 11/13/26 Unknown Unknown Active Unknown Progress note * Augie Chaves DO (Heather): PERFORM Event Display: Progress Note - Physician Authored Date: [id number] XAVIER LISA :1960 Age:63 years Sex:Female Visit Date:01/24/2024 Primary Care Physician: IRISH SERRANO NP Subjective Patient is here for her first postop visit.?? She is generally feeling improved,??reporting an improvement in her neck??pain and hand numbness,??easing of the??clawed hand??posture,??improvement??in handwriting,??and improved sensation in??her occipital??region.?? She also noticed that she can moveher ears again.?? She does note some residual numbness in the first and second digits of her right hand, and she is feeling that the incisional area??feels tight. ??Patient does feel??that her neckis still stiff??and there is a numb area under her chin.?? She is??unsure how to??manage her household tasks??including lifting??things into her fridge??and opening her fridge door, because she feelsthat this??exacerbates the stability of her neck.?? She feels that her energy level is??low and??her mood is poor.?? She developed thrush, which is??usual for her after any surgery and??has been improving??already.?? She requested prescription for VSL #3, and she is almost out of??oxycodone??and baclofen.?? She would like to??taper off of gabapentin. Review of Systems As per [facility] Objective Vitals & Measurements BP:??118/66?? Pain Score:??5?? Physical Exam NAD Trachea midline Pleasant Awake and alert Face symmetric Speech fluent and logical Motor 5/5 BUE and BLE all muscle groups Incision healing as expected, without erythema or fullness around incision Assessment/Plan 1.??S/P cervical spinal fusion??Z98.1 63-year-old female??status post C3-4 ACDF.?? Patient had??somewhat of a??difficult recovery, although this is??common for her.?? She is feeling??overall improved in terms of her??presenting symptoms.?? I??discussed the restrictions that she should be in place until 6 weeks after surgery and??recommended??light aerobic activity.?? Patient would like??renewal of her baclofen and??pain medication. ??She would like??something that lasts longer.?? Extended release hydrocodone was ordered. ??Referrals were made for home??health and??physical therapy??to assist in the recovery process.?I also ordered cervical x-rays??as a baseline study. Ordered: XR Spine Cervical 2 or 3 Views, 01/24/24, Routine, Reason: s/p ACDF, please send to [facility] in [facility], Transport Mode: Ambulatory, S/P cervical spinal fusion, ABN Status: Not Required ?? 2.??Danny thyroiditis??E06.3 Patient requested rewriting of her??thyroid medication in 15 mg??increments??so that she does not need to??cut the small pills. ?? 3.??Numbness of hand??R20.0 ?? 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 5.??Oral thrush??B37.0 VSL #3 ordered per patient's request. ?? Orders: baclofen 5 mg oral tablet, 5 mg = 1 tab, Oral, TID, # 90 tab, 0 Refill(s), Pharmacy: [facility], 170, cm, 01/01/24 15:44:00 EST, Height, 55, kg, 01/01/24 15:45:00 EST, Weight Dosing VSL#3 oral capsule, 2 cap, Oral, Daily, # 60 cap, 0 Refill(s), Pharmacy: [facility], 170, cm,01/01/24 15:44:00 EST, Height, 55, kg, 01/01/24 15:45:00 EST, Weight Dosing HYDROcodone 10 mg oral capsule, extended release, 10 mg = 1 cap, Oral, every 12 hr, # 60 cap, 0 Refill(s), Pharmacy: [facility], 170, cm, 01/01/24 15:44:00 EST, Height, 55, kg, 01/01/24 15:45:00 EST, Weight Dosing thyroid desiccated 15 mg oral tablet, 45 mg = 3 tab, Oral, Daily, # 270 tab, 0 Refill(s), Pharmacy:[facility], 170, cm, 01/01/24 15:44:00 EST, Height, 55, kg, 01/01/24 15:45:00 EST, Weight Dosing Electronically Signed on 01/24/24 12:31 PM DO Carlos Ham) Patient Care team information Care Team Personnel Name: IRISH SERRANO NP Position: No Access Member Role: Primary Care Physician Address: Address: [address] [place] [id number] [place] [address] Care Team Related Persons Name: RENNY BALL
--- OUTSIDE RECORDS SUMMARY | 2024-06-27 15:18 | XMS_ITS | Continuity of Care Document ---
Author Organization [facility] Address [address] [place] [id number] Care Team Providers Care Site Supervisor Name Role Phone ZACH PUGH, IRISH Ramey Primary Care Physician Encounter LTTL_NE FIN NBR [id number] Date(s): 01/01/24 - 01/04/[address] [address] [place] Encounter Diagnosis S/P cervical spinal fusion(Discharge Diagnosis) - 01/02/24 Discharge Disposition: Home f/u External Provider Attending Physician: DO Carlos Ham) Admitting Physician: Augie Chaves DO (Heather) Referring Physician: Augie Chaves DO (Heather) Allergies, Adverse Reactions, Alerts Substance Reaction Severity Status tetracycline Rash Mild Active folic acid Malabsorption Mild Active Bee Stings Angioedema Severe Active oxyCODONE Stomach upset Mild Active Wheat Rash Mild Active Lactose Rash Diarrhea Mild Active Sugar Hives Mild Active Assessment and Plan Extracted from: Title:Discharge Note Author:CAITLIN Marvin Date:01/04/24 Discharge Plan 1.??S/P cervical spinal fusion??Z98.1 Ordered: Discharge Patient, 01/04/24 8:35:00 EST, Home Independently, Constant Indicator ?? Orders: baclofen 10 mg oral tablet, 10 mg = 1 tab, Oral, TID, PRN spasm, # 60 tab, 0 Refill(s), Pharmacy: [facility], 170, cm, 01/01/24 15:44:00 EST, Height, 55, kg, 01/01/24 15:45:00 EST, Weight Dosing HYDROcodone-acetaminophen 5 mg-325 mg oral tablet, See Instructions, PRN pain, severe, 1-2 tab Oral every 6 hr, # 50 tab, 0 Refill(s), Pharmacy: [facility], 170, cm, 01/01/24 15:44:00 EST, Height, 55, kg, 01/01/24 15:45:00 EST, Weight Dosing Throat Culture, Throat, Routine collect, RT - Routine, 01/02/24 8:19:00 EST, Once, Nurse collect The patient is 3 days postop from her ACDF.?? Initially she had significant neck pain, throat pain and ear pain but that is improving.?? She had a laboratory workup that was unremarkable with no signs of infection.?? Her C-reactive protein was elevated but this is expected following surgery. ??Her throat culture was negative.?? Her paresthesias and dexterity is slowly improving. ??Her balance is good. ??She will be discharged home with a short course of the pain medication as well as her muscle relaxer which she finds most helpful.?? She is instructed to participate in light activity only and avoid any heavy lifting or strenuous activity for now. ??She can do very gentle stretches of her neck. ??She is??utilizing a soft collar for comfort but was vies not to wear this too frequently. ??She only plans to wear this on her ride home.?? She can shower as needed. ??She will follow-up with Dr. Chaves in the office. Plan: Follow-up at postoperative visit. Follow Up With When Contact Information Augie Chaves DO (Heather) Within 1 to [address] [place] [phone] Additional Instructions: Extracted from: Title:Surgical Progress Note Author:Augie Chaves DO (Heather) Date:01/03/24 1.??S/P cervical spinal fusi on??Z98.1 63yo F POD#2 following C3-4 ACDF. Pt is doing well from neurological standpoint but is generally not feeling well. Throat culture pending for possible illness coming into surgery. I will also send CBC, CMP, UA, ESR, CRP and blood cultures to r/o infection from other sources. Will also order benzocaine-menthol spray for her sore throat. Will recheck this afternoon to see if she is feeling better and determine dispo at that time. Orders: benzocaine-menthol 20%-0.5% topical spray, 1 nelsy, Topical, [place], every 2 hr for 30 days, PRN sore throat, First Dose: 01/03/24 8:33:00 EST, Stop Date: 02/02/24 8:32:00 EST, Physician Stop, Routine Blood Culture, Blood, Routine collect, RT - Routine, 01/03/24 8:36:00 EST, Once, Lab Collect, Print Label Blood Culture, Blood, Routine collect, RT - Routine, 01/03/24 8:36:00 EST, Once, Lab Collect, Print Label C-Reactive Protein, Blood, Routine, 01/03/24 8:36:00 EST, Once, Lab Collect CBC w/ Diff, Blood, Routine, 01/03/24 8:34:00 EST, Once, Lab Collect Comprehensive Metabolic Panel, Blood, Routine, 01/03/24 8:34:00 EST, Once, Lab Collect Sedimentation Rate (ESR), Blood, Routine, 01/03/24 8:34:00 EST, Once, Lab Collect Urinalysis with Micro if Indicated and Culture if Indicated, Urine, Routine Collect, 01/03/24 8:34:00 EST, Once, Nurse collect, Print Label Addendum by Augie Chaves DO ( Heather) on January 03, 2024 16:27:20 EST I saw and examined pt again at 4pm. The erythema below her incision appears improved. Pt is also reporting some improvement of the overall ill feeling. Labs to date are normal. Will continue to monitor and likely discharge tomorrow. Future Appointments Functional Status 01/04/24 Breakfast Percent 100 01/04/24 ADLs Independent Activity Status ADL Up ad marilin 01/03/24 Personal Care Provided Underpad change 01/03/24 Anti-Embolism Device Activity: In place Anti-Embolism Site Condition: No complic ations 01/02/24 Assistive Device None 01/02/24 Living Environment Home Environment Lives In: Multilevel home Performed By: Chantell Caraballo 01/01/2024 Lives With: Alone Performed By: Chantell Caraballo 01/01/2024 Lives In Multilevel home Lives With Alone Patient's Responsibilities Rehab Persona l ADL Detail Areas of Responsibilities Pt note d that she had a ton of stairs at home Prior ADL Status Independent Prior Mobility Status Independent Prior Instrumental ADL Level Independent Prior Cognitive-Communication Skills Ind ependent 01/01/24 Family Member Travel History No recent t ravel Recent Travel History No recent travel Other exposure to Infectious Disease Non e 01/01/24 Lunch Percent 50 01/01/24 Home Barriers None 01/01/24 Antiembolism Device Intermittent pneumat ic compression devices, knee high, bilat Medications baclofen 10 mg oral tablet 10 mg = 1 tab, Oral, TID, PRN spasm, # 60 tab, 0 Refill(s), Pharmacy: [facility], 170, cm, 01/01/24 15:44:00 EST, Height, 55, kg, 01/01/24 15:45:00 EST, Weight Dosing Start Date: 01/04/24 Status: Ordered calcium (as calcium citrate) 250 mg oral tablet 250 mg = 1 tab, Oral, TID, # 270 tab, 2 Refill(s), Pharmacy: [facility], 168, cm, 12/12/23 14:31:00 EST, Height, [...] 0 Refill(s) Start Date: 12/11/23 Status: Ordered HYDROcodone-acetaminophen 5 mg-325 mg oral tablet See Instructions, PRN pain, severe, 1-2 tab Oral every 6 hr, # 50 tab, 0 Refill(s), Pharmacy: [facility], 170, cm, 01/01/24 15:44:00 EST, Height, 55, kg, 01/01/24 15:45:00 EST, Weight Dosing Start Date: 01/04/24 Status: Ordered methylcobalamin 1 mg oral tablet, disintegrating 1 mg = 1 tab, Sublingual, Daily, dissolve under the tongue OTC methylcobalamin, # 60 tab, 0 Refill(s) Start Date: 01/01/24 Status: Ordered NURSE WOUND CARE Thyroid 15 mg oral tablet 45 mg = 3 tab, Oral, Daily, 0 Refill(s) Start Date: 12/11/23 Status: Ordered pyridoxine 100 mg oral tablet 100 mg = 1 tab, Oral, Daily, # 7 tab, 0 Refill(s) Start Date: 01/01/24 Status: Ordered Problem List Condition Confirmation Course [...] kidney stone Complete d 1left leg 2020 Results Laboratory List Name Date Urinalysis with Micro if Indicated and C ulture if Indicated 01/03/24 C-Reactive Protein 01/03/24 CBC w/ Diff 01/03/24 Comprehensive Metabolic Panel (CMP) Sedimentation Rate (ESR) 01/03/24 Automated Diff 01/03/24 Most recent to oldest [Reference Range]: 1 WBC [4.8-10.8 K/mcL] 6.7 K/mcL (01/03/24 9:05 AM) RBC [4.20-5.40 Million/mcL] 3.86 Million /mcL *LOW* (01/03/24 9:05 AM) Neutro Auto [42.2-75.2 %] 77.4 % *HI* (01/03/24 9:05 AM) Lymph Auto [20.5-51.1 %] 14.8 % *LOW* (01/03/24 9:05 AM) King Auto [1.7-9.3 %] 6.7 % (01/03/24 9:05 AM) Basophil Auto [0.0-0.8 %] 0.4 % (01/03/24 9:05 AM) BUN [7-25 mg/dL] 8 mg/dL (01/03/24 9:05 AM) UA Color [Yellow] Yellow (01/03/24 4:14 PM) Glucose Level [70-109 mg/dL] 98 mg/dL (01/03/24 9:05 AM) Potassium Level [3.5-5.1 mmol/L] 3.8 mmo l/L (01/03/24 9:05 AM) Baso Absolute [0.0-0.2 K/mcL] 0.0 K/mcL (01/03/24 9:05 AM) MCV [81.0-99.0 fL] 93.8 fL (01/03/24 9:05 AM) UA Urobilinogen [0.2] 0.2 (01/03/24 4:14 PM) UA Bili [Negative] Negative (01/03/24 4:14 PM) CRP [<=10.0 mg/L] 17.1 mg/L *HI* (01/03/24 9:05 AM) UA Ketones [Negative] Negative (01/03/24 4:14 PM) AST [13-39 IntlUnit/L] 13 IntlUnit/L (01/03/24 9:05 AM) ALT [7-52 IntlUnit/L] 10 IntlUnit/L (01/03/24 9:05 AM) MCHC [32.0-37.0 g/dL] 33.7 g/dL (01/03/24 9:05 AM) Osmolality [275-295 mOsm/kg] 272 mOsm/kg *LOW* (01/03/24 9:05 AM) Sodium Level [136-145 mmol/L] 137 mmol/L (01/03/24 9:05 AM) UA Leuk Est [Negative] Negative (01/03/24 4:14 PM) Lymph Absolute [1.2-3.4 K/mcL] 1.0 K/mcL *LOW* (01/03/24 9:05 AM) UA Nitrite [Negative] Negative (01/03/24 4:14 PM) UA Glucose [Negative] Negative (01/03/24 4:14 PM) Hct [37.0-47.0 %] 36.2 % *LOW* (01/03/24 9:05 AM) Calcium Level [8.6-10.3 mg/dL] 9.4 mg/dL (01/03/24 9:05 AM) King Absolute [0.1-0.6 K/mcL] 0.4 K/mcL (01/03/24 9:05 AM) Albumin Level [3.5-5.7 g/dL] 3.8 g/dL (01/03/24 9:05 AM) Protein Total [6.4-8.9 g/dL] 6.0 g/dL *LOW* (01/03/24 9:05 AM) UA Protein [Negative] Negative (01/03/24 4:14 PM) MCH [27.0-31.0 pg] 31.6 pg *HI* (01/03/24 9:05 AM) Neutro Absolute [1.4-6.5 K/mcL] 5.2 K/mc L (01/03/24 9:05 AM) Bilirubin Total [0.3-1.0 mg/dL] 0.6 mg/d L (01/03/24 9:05 AM) Hgb [12.0-16.0 g/dL] 12.2 g/dL (01/03/24 9:05 AM) Alk Phos [34-104 IntlUnit/L] 48 IntlUnit /L (01/03/24 9:05 AM) UA Blood [Negative] Negative (01/03/24 4:14 PM) MPV [7.4-10.4 fL] 7.4 fL (01/03/24 9:05 AM) UA Spec Grav [1.001-1.030] 1.010 (01/03/24 4:14 PM) Platelets [130-400 K/mcL] 205 K/mcL (01/03/24 9:05 AM) CO2 [21-31 mmol/L] 30 mmol/L (01/03/24 9:05 AM) Eos Absolute [0.0-0.2 K/mcL] 0.0 K/mcL (01/03/24 9:05 AM) UA pH [5.00-9.00] 7.00 (01/03/24 4:14 PM) UA Appear [Clear] Clear (01/03/24 4:14 PM) Chloride Level [98-107 mmol/L] 102 mmol/ L (01/03/24 9:05 AM) RDW-CV [11.5-14.5 %] 15.0 % *HI* (01/03/24 9:05 AM) A/G Ratio [1.0-2.5 g/dL] 1.7 g/dL (01/03/24 9:05 AM) BUN/Creat Ratio [8.0-20.0] 8.9 (01/03/24 9:05 AM) Globulin [2.3-3.5 g/dL] 2.2 g/dL *LOW* (01/03/24 9:05 AM) Creatinine Level [0.60-1.20 mg/dL] 0.90 mg/dL (01/03/24 9:05 AM) Anion Gap [3.0-12.0] 5.0 (01/03/24 9:05 AM) Eos, Auto [0.00-3.00 %] 0.70 % (01/03/24 9:05 AM) eGFR CKD-EPI [>=60 mL/min/1.73 m2] 71 mL /min/1.73 m2 (01/03/24 9:05 AM) ESR, Westergren [0-20 mm/hr] 18 mm/hr (01/03/24 9:05 AM) Orders for Microbiology Reports Name Date Blood Culture 01/03/24 Blood Culture 01/03/24 Throat Culture 01/02/24 Microbiology Reports TEST:Blood Culture STATUS:Order in Progress BODY SITE:Left Arm SOURCE:Blood COLLECTED DATE/TIME:01/03/24 9:08 AM PRELIMINARY REPORT No growth at 1 day. TEST:Blood Culture STATUS:Order in Progress BODY SITE:Right Arm SOURCE:Blood COLLECTED DATE/TIME:01/03/24 9:05 AM PRELIMINARY REPORT No growth at 1 day. TEST:Throat Culture STATUS:Auth (Verified) BODY SITE: SOURCE:Throat COLLECTED DATE/TIME:01/02/24 10:20 AM FINAL REPORT Moderate Normal upper respiratory rosa isela isolated Radiology Reports * Exam Date Time Procedure Performing Provider Status 01/01/24 11:32 AM XR Spine Cervical 1 View Everardo Sutton R; Auth (Verified) Notes: (XR Spine Cervical 1 View) Reason For Exam: FUSION XR Spine Cervical 1 View EXAM DESCRIPTION: XR Spine Cervical 1 View 01/01/2024 INDICATION: FUSION COMPARISON: 12/18/2023 IMPRESSION: Intraoperative fluoroscopy with spot views was provided Fluoroscopy time 21.4 seconds, 3 images Status post ACDF at C3-4 with interbody spacer apparatus. Status post previous ACDF at C4-5 and C5-6 with plate fixation apparatus. JOB #: [id number] Final Signed by: Conor Fernandez MD Signed (Electronic Signature): 01/01/2024 11:47 am Vital Signs Most recent to oldest [Reference Range]: 1 2 3 Temperature Temporal Artery [36-38 Deg C] 37.0 Deg C (01/04/24 8:01 AM) 36.8 Deg C (01/04/24 4:11 AM) 36.4 Deg C (01/03/24 11:00 PM) Temperature Temporal Artery (DegF) [97.3-100 Deg F] 98.6 Deg F (01/04/24 8:01 AM) 97.52 Deg F (01/03/24 11:00 PM) 98.24 Deg F (01/03/24 7:16 PM) Peripheral Pulse Rate [60-100 bpm] 57 bpm *LOW* (01/04/24 8:01 AM) 57 bpm *LOW* (01/04/24 4:11 AM) 60 bpm (01/03/24 11:00 PM) Heart Rate Monitored [60-100 bpm] 54 bpm *LOW* (01/01/24 6:55 AM) Respiratory Rate [12-24 br/min] 18 br/min (01/04/24 8:01 AM) 16 br/min (01/04/24 4:11 AM) 16 br/min (01/03/24 11:00 PM) Blood Pressure [90-140/60-90 mmHg] 126/72mmHg (01/04/24 8:01 AM) 110/66mmHg (01/04/24 4:11 AM) 120/37mmHg (01/03/24 11:00 PM) Mean Arterial Pressure, Cuff [70-110 mmHg] 90 mmHg (01/04/24 8:01 AM) 81 mmHg (01/04/24 4:11 AM) 65 mmHg *LOW* (01/03/24 11:00 PM) Mean Arterial Pressure Cuff 89 mmHg (01/01/24 1:45 PM) 112 mmHg (01/01/24 1:30 PM) 88 mmHg (01/01/24 1:15 PM) Blood Pressure Location Right arm (01/02/24 7:45 PM) Right arm (01/02/24 3:54 PM) Right arm (01/02/24 12:30 PM) Blood Pressure Method Automatic (01/02/24 7:45 PM) Automatic (01/02/24 3:54 PM) Automatic (01/02/24 12:30 PM) Weight 55 kg (01/01/24 3:44 PM) Weight Dosing 55.000 kg (01/01/24 3:44 PM) Height 170 cm (01/01/24 3:44 PM) BSA Measured 1.61 m2 (01/01/24 3:44 PM) BSA Estimated 0 m2 (01/01/24 3:44 PM) Body Mass Index 19.03 kg/m2 (01/01/24 3:44 PM) Social History Social History Type Response Tobacco Never tobacco user T obacco Use:. Sex Hospital Discharge Instructions Patient Education 01/04/2024 07:32:47 Geraldine Page - [facility] Discharge Instructions (CUSTOM) Disharge Instructions: [facility] What to Watch Out For These symptoms should cause you to call immediately or dial 911 to come to the emergency department. ??? New weakness or decreased ability to fully move your upper or lower extremities ??? Severe chest pain, difficulty breathing ??? Loss of control of your bowels and bladder The following symptoms may indicate a problem. Contact office number below. ??? Fever higher than 101 F ??? Increasing back and/or leg pain ??? Difficulty passing urine ??? New numbness or change in symptoms from before surgery ??? Redness or drainage from the incision ??? Unusual headache, especially if it is much worse when you stand up ??? Calf pain or swelling Follow up appointment: Call spine office to schedule a follow up appointment within 10-14 days after your surgery. For questions after the surgery, call [facility] at: [phone]. After hours, the answering service will respond. In the case of an emergency call [phone]. Medications: ??? Resume medications as prescribed Remember your Spine Precautions ??? Try to avoid bending ??? Minimize twisting ??? No Heavy Lifting??(avoid heavy lifting (use a gallon of milk, which weighs about 8 pounds, as aguide for the maximum weight that can be lifted)). ??? No Pulling/Pushing Patient Identification [place] [id number] *DCIN* DCIN Discharge Instructions [facility] Page 1 of 4 Incision Care If you have (refer to ?? section): ? Jamie/Sutures: They will be removed during your follow up visit. ? Steri- Strips: They will fall off on their own after the first week. ? If your incision is covered with gauze:?? Keep it covered until 5 days after your surgery, then you may leave it open to air if completely dry. ? Dermabond is a liquid skin adhesive that holds open wounds or incision sites together by adhering skin edges together. Ok to leave incision open to air. Do not apply any body oils, lotions ormakeup to the area surrounding the Dermabond or on the film. These products will prematurely loosenthe Dermabond film. Avoid areas that cause increase sweating (e.g. tanning beds, saunas, excess sunlight exposure, physical exertion) Shower ??? You may shower 5 days after your surgery, let water run on incision and pat dry. Do not apply lotion or soap to incision. No Baths. Showers are ok to keep incision clean, but baths, swimming, and hot tubs are off limits because of the risk of infection. It is best not to point the shower head directly at the incision, but the incision can get wet. It is good to let soapy water run over the incision but not to scrub or directly wash the incision. Activity: ??? Start daily walking program and increase each day. Taking several walks throughout the day, every few hours, is best. Short walks in the home can be helpful as well. ??? Sleeping on the side or back is recommended versus sleeping your stomach (Cervical fusion patients) ??? General rule: If it hurts you should probably refrain from that activity ??? Return to Work/School: ?? when able Click or tap here to enter text. weeks/days ?? not until follow up Additional instructions: ___ Patient Identification [address] [address] DCIN Discharge Instructions [facility] Page 2 of 4 Tips for taking pain medicine ?? Pain medicines can upset your stomach. Taking them with a little food may help. ?? Most pain relievers taken by mouth need at least 20 to 30 minutes to start to work. ?? Taking medicine on a schedule can help you remember to take it. Try to time your medicine so that you can take it before starting an activity. ?? Constipation is a common side effect of narcotic pain medicines. Drinking fluids and eating foods high in fiber can help. Here are some over the counter stool softeners that may also help if symptoms continue: Miralax, Colace, or Ducolax. ?? Drinking alcohol and taking pain medicine can cause dizziness and slow your breathing. It can even be deadly. Do not drink alcohol while taking pain medicine. ?? Pain medicine can make you react more slowly to things. Do not drive or run machinery while taking pain medicine. ?? If you have obstructive sleep apnea, please use home C-pap as prescribed especially after takingpain medications before naps/bedtime. ?? Try to wean off narcotic pain medication as pain decreases in severity. Tips for managing nausea- Some people have an upset stomach after surgery. This is often because ofanesthesia, pain, or pain medicine, or the stress of surgery. These tips will help you handle nausea as you get better. ?? Start off with clear liquids and soup. They are easier to digest. ?? Next try semi-solid foods, such as mashed potatoes, applesauce, and gelatin, as you feel ready. ?? Slowly move to solid foods. Try to stay away from fatty, rich, or spicy foods. ?? Do not force yourself to have 3 large meals a day. Instead eat smaller amounts more often. ?? Take pain medicines with a small amount of solid food, such as crackers or toast, to avoid nausea. Patient Identification [facility] [address] [place] [address] DCIN Discharge Instructions [facility] Page 3 of 4 Questions for your provider (please write below): I have read these instructions, and understand them as they have been explained to sc. Date (Patient???s Signature) Date/Time (Discharge Nurse???s Signature) Patient Identification [address] [address] DCIN Discharge Instructions [facility] Page 4 Follow Up Care 12/20/2023 15:53:06 With:Augie Chaves DO ([facility]) Address: [address] [place] [phone] When:1 to 2 weeks Pharmacology Note * Praneeth Navarro: PERFORM Event Display: Pharmacy Note Authored Date: [id number] Med hx via SS review and pt interview. Pt appears good hx. Fixed calcium dosing. Edited fluoxetine to reflect home strengths ( 3 x 20mg and 1 x 10 mg for total of 70mg daily ) . pt reports not currently using baclofen at home. Michael filled 11/17 but never started as improved with gabapentin use. * Praneeth Navarro: PERFORM Event Display: Pharmacy Note Authored Date: [id number] updated pts fluoxetine dosing... pt takes 1 x 40 mg 1x 20mg and 2 x 10mg for total of 80mg daily...unsure of what dose pt should be taking, but pt fills out total of 80mg a day in site planner . Discharge instructions * Esha Cabrera: PERFORM Event Display: Discharge Instructions Authored Date: [id number] XAVIER LISA :1960 Age:63 years Sex:Female Visit Date:01/01/2024 Primary Care Physician: ZACH PUGH, IRISH Ramey [facility] Discharge Instructions We would like to thank you for allowing us to assist you with your healthcare needs. The following includes patient education materials and information regarding your injury/illness. Your Next Steps Scheduled Future Appointments 2023 10:30 AM EST ?? With: Augie Chaves DO (Heather) Where: [facility] Status: Confirmed Sunday 2:30 PM EDT ?? With: Ricki Barragan MD Where: [facility] Neurology Status: Confirmed Follow Up Appointments Follow Up with??Augie Chaves DO (Heather) When:??Within 1 to 2 weeks Where: [address] [place] [address] [phone] Medications What How Much When Instructions Next Dose New HYDROcodone-acetaminophen (HYDROcodone-acetaminophen 5 mg-325 mg oral tablet) See instructions 1-2 tab Oral every 6 hr, As needed for pain, severe ?? Pickup at [facility] Changed FLUoxetine (FLUoxetine 40 mg oral capsule) 2 Capsules Oral (given by mouth) Every day Unchanged baclofen (baclofen 10 mg oral tablet) 1 tab Oral (given by mouth) 3 times a day as needed for spasm Pickup at [facility] Unchanged calcium citrate (calcium (as calcium citrate) 250 mg oral tablet) 1 tab Oral (given by mouth) 3 times a day Unchanged celecoxib (celecoxib 100 mg oral capsule) 1 Capsules Oral (given by mouth) 2 times a day as needed for as needed for arthritis Unchanged EPINEPHrine (EPINEPHrine 0.3 mg injectable kit) 0.3 Milligrams Intramuscular (in a muscle) Once as needed for anaphylaxis Unchanged fluticasone nasal (fluticasone 50 mcg/ inh nasal spray) 2 Sprays Nostril-Both Every day as needed for as needed for allergy symptoms Unchanged gabapentin (gabapentin 100 mg oral capsule) 3 Capsules Oral (given by mouth) Every night at bedtime Unchanged methylcobalamin (methylcobalamin 1 mg oral tablet, disintegrating) 1 tab Sublingual (dissolve under the tongue) Every day dissolve under the tongue OTC methylcobalamin ?? Unchanged pyridoxine (pyridoxine 100 mg oral tablet) 1 tab Oral (given by mouth) Every day Unchanged thyroid desiccated (NURSE WOUND CARE Thyroid 15 mg oral tablet) 3 tab Oral (given by mouth) Every day Pharmacy Information [facility]: [address], [place] [phone] Your Summary Your Care Team Admitting Physician - Augie Chaves DO (Heather) Attending Physician - Augie Chaves DO (Heather) Primary Care Physician - IRISH SERRANO NP Referring Physician - Augie Chaves DO (Heather) Your Diagnosis S/P cervical spinal fusion Problems Ongoing - Any problem that you are currently receiving treatment for. Colonic polyp Constipation Female urinary stress incontinence Gastritis Danny thyroiditis History of kidney stone IBS - Irritable bowel syndrome Migraine Numbness of hand ANIBAL - Obstructive sleep apnea Osteoarthritis Periodic limb movement disorder Sleep related bruxism Historical - Any problem that you are no longer receiving treatment for. Primary herpes genitalis Tests Performed/Pending Automated Diff Blood Culture?-- Results Pending -- C-Reactive Protein CBC w/ Diff CMP Sedimentation Rate (ESR) Urinalysis with Micro if Indicated and Culture if Indicated XR Fluoroscopy Over 1 Hour?-- Results Pending -- XR Spine Cervical 1 View Discharge Vitals Temperature??(Temporal Artery) 98.2 ??F (36.8 ??C) Heart Rate??(Peripheral) 57 Respiratory Rate?? 16 Blood Pressure?? 110/66?? Allergies Bee Stings??(Angioedema) Lactose??(Rash, Diarrhea) Sugar??(Hives) Wheat??(Rash) folic acid??(Malabsorption) oxyCODONE??(Stomach upset) tetracycline??(Rash) Education Materials Disharge Instructions: [facility] What to Watch Out For These symptoms should cause you to call immediately or dial 911 to come to the emergency department. ? New weakness or decreased ability to fully move your upper or lower extremities ? Severe chest pain, difficulty breathing ? Loss of control of your bowels and bladder The following symptoms may indicate a problem. Contact office number below. ? Fever higher than 101 F ? Increasing back and/or leg pain ? Difficulty passing urine ? New numbness or change in symptoms from before surgery ? Redness or drainage from the incision ? Unusual headache, especially if it is much worse when you stand up ? Calf pain or swelling Follow up appointment: Call spine office to schedule a follow up appointment within 10-14 days after your surgery. For questions after the surgery, call [facility] at: [phone]. After hours, the answering service will respond. In the case of an emergency call 911. ? Medications: ? Resume medications as prescribed Remember your Spine Precautions ? Try to avoid bending ? Minimize twisting ? No Heavy Lifting??(avoid heavy lifting (use a gallon of milk, which weighs about 8 pounds, as a guide for the maximum weight that can be lifted)). ? No Pulling/Pushing ? Patient Identification [facility] [address] [place] [address] ? *DCIN* ? DCIN Discharge Instructions [facility]?? Page 1 of 4 Incision Care If you have (refer to ?? section): ? Jamie/Sutures: They will be removed during your follow up visit. ? Steri- Strips: They will fall off on their own after the first week. ? If your incision is covered with gauze:?? Keep it covered until 5 days after your surgery, thenyou may leave it open to air if completely dry. ? Dermabond is a liquid skin adhesive that holds open wounds or incision sites together by adhering skin edges together. Ok to leave incision open to air. Do not apply any body oils, lotions or makeup to the area surrounding the Dermabond or on the film. These products will prematurely loosen theDermabond film. Avoid areas that cause increase sweating (e.g. tanning beds, saunas, excess sunlight exposure, physical exertion) Shower ? You may shower 5 days after your surgery, let water run on incision and pat dry. Do not apply lotion or soap to incision. No Baths. Showers are ok to keep incision clean, but baths, swimming, and hottubs are off limits because of the risk of infection. It is best not to point the shower head directly at the incision, but the incision can get wet. It is good to let soapy water run over the incision but not to scrub or directly wash the incision. Activity: ? Start daily walking program and increase each day. Taking several walks throughout the day, every few hours, is best. Short walks in the home can be helpful as well. ? Sleeping on the side or back is recommended versus sleeping your stomach (Cervical fusion patients) ? General rule: If it hurts you should probably refrain from that activity ? Return to Work/School: ?? when able Click or tap here to enter text. weeks/days ?? not until follow up Additional instructions: ___ ? Patient Identification ? [place] [address] ? DCIN Discharge Instructions [facility] ?? Page 2 of 4 Tips for taking pain medicine ? Pain medicines can upset your stomach. Taking them with a little food may help. ? Most pain relievers taken by mouth need at least 20 to 30 minutes to start to work. ? Taking medicine on a schedule can help you remember to take it. Try to time your medicine so that you can take it before starting an activity. ? Constipation is a common side effect of narcotic pain medicines. Drinking fluids and eating foods high in fiber can help. Here are some over the counter stool softeners that may also help if symptomscontinue: Miralax, Colace, or Ducolax. ? Drinking alcohol and taking pain medicine can cause dizziness and slow your breathing. It can even be deadly. Do not drink alcohol while taking pain medicine. ? Pain medicine can make you react more slowly to things. Do not drive or run machinery while taking pain medicine. ? If you have obstructive sleep apnea, please use home C-pap as prescribed especially after taking pain medications before naps/bedtime. ? Try to wean off narcotic pain medication as pain decreases in severity. ? Tips for managing nausea- Some people have an upset stomach after surgery. This is often because ofanesthesia, pain, or pain medicine, or the stress of surgery. These tips will help you handle nausea as you get better. ? Start off with clear liquids and soup. They are easier to digest. ? Next try semi-solid foods, such as mashed potatoes, applesauce, and gelatin, as you feel ready. ? Slowly move to solid foods. Try to stay away from fatty, rich, or spicy foods. ? Do not force yourself to have 3 large meals a day. Instead eat smaller amounts more often. ? Take pain medicines with a small amount of solid food, such as crackers or toast, to avoid nausea. ? Patient Identification ? [place] [address] ? DCIN Discharge Instructions [facility]?? Page 3 of 4 Questions for your provider (please write below): ? I have read these instructions, and understand them as they have been explained to me. ? Date (Patient???s Signature) Date/Time (Discharge Nurse???s Signature) ? Patient Identification ? [facility] [address] [place] [address] ? DCIN Discharge Instructions [facility]?? Page 4 of 4 Medication Information acetaminophen and hydrocodone?? (a SEET a MIN oh fen and jennifer kerr KOE done) ?? Lortab Elixir, Verdrocet? What is the most important information I should know about acetaminophen and hydrocodone? MISUSE OF OPIOID MEDICINE CAN CAUSE ADDICTION, OVERDOSE, OR .?Keep the medication in a place where others cannot get to it. ?? Taking opioid medicine during may cause life-threatening withdrawal symptoms in the . ?? Fatal side effects can occur if you use opioid medicine with alcohol, or with other drugs that cause drowsiness or slow your breathing. ?? Stop taking this medicine and call your doctor right away if you have skin redness or a rash that spreads and causes blistering and peeling.? What is acetaminophen and hydrocodone? Acetaminophen and hydrocodone is a combination medicine used to relieve moderate to severe pain. ?? Acetaminophen and hydrocodone contains an opioid medicine, and may be habit- forming. ? Acetaminophen and hydrocodone may also be used for purposes not listed in this medication guide. ?? What should I discuss with my healthcare provider before taking acetaminophen and hydrocodone? You should not use this medicine if you are allergic to acetaminophen or hydrocodone, or if you have: ?severe asthma or breathing problems; or ?a blockage in your stomach or intestines. ?? Tell your doctor if you have ever had: ?breathing problems, sleep apnea (breathing stops during sleep); ?liver disease; ?a drug or alcohol addiction; ?kidney disease; ?a head injury or seizures; ?urination problems; or ?problems with your thyroid, pancreas, or gallbladder. ?? If you use opioid medicine while you are , your baby could become dependent on the drug.?This can cause life-threatening withdrawal symptoms in the baby after it is born. Babies born dependent on opioids may need medical treatment for several weeks. ?? Ask a doctor before using opioid medicine if you are .??Tell your doctor if you noticesevere drowsiness or slow breathing in the nursing baby.? How should I take acetaminophen and hydrocodone? Follow all directions on your prescription label.??Never take this medicine in larger amounts, or for longer than prescribed. ??An overdose can damage your liver or cause .??Tell your doctor if you feel an increased urge to use more of this medicine. ?? Never share this medicine with another person, especially someone with a history of drug abuse or addiction. ??MISUSE CAN CAUSE ADDICTION, OVERDOSE, OR .?Keep the medicine in a place where others cannot get to it. ??Selling or giving away this medicine is against the law.? Measure??liquid medicine??carefully. Use the dosing syringe provided, or use a medicine dose-measuring device (not a kitchen spoon). ?? If you need surgery or medical tests, tell the doctor ahead of time that you are using this medicine.? You should not stop using this medicine suddenly.?Follow your doctor's instructions about tapering your dose. ?? Store at room temperature away from moisture and heat. Keep track of your medicine. You should be aware if anyone is using it improperly or without a prescription. ?? Do not keep leftover opioid medication.??Just one dose can cause in someone using this medicine accidentally or improperly.??Ask your pharmacist where to locate a drug take-back disposal program. If there is no take-back program, flush the unused medicine down the toilet. ?? What happens if I miss a dose? Since this medicine is used for pain, you are not likely to miss a dose. Skip any missed dose if itis almost time for your next dose.??Do not??use two doses at one time. ?? What happens if I overdose? Seek emergency medical attention or call the Poison Help line at .??An overdose of this medicine can be fatal, especially in a child or other person using the medicine without a prescription.??Overdose symptoms may include nausea, vomiting, sweating, severe drowsiness, pinpoint pupils, slow breathing, or no breathing. ?? Your doctor may recommend you get naloxone (a medicine to reverse an opioid overdose) and keep it with you at all times. A person caring for you can give the naloxone if you stop breathing or don't wake up. Your caregiver must still get emergency medical help and may need to perform CPR (cardiopulmonary resuscitation) on you while waiting for help to arrive. ?? Anyone can buy naloxone from a pharmacy or local health department. Make sure any person caring foryou knows where you keep naloxone and how to use it. ?? What should I avoid while taking acetaminophen and hydrocodone? Avoid driving or operating machinery until you know how this medicine will affect you. Dizziness ordrowsiness can cause falls, accidents, or severe injuries. ?? Do not drink alcohol.?Dangerous side effects or could occur. ?? Ask a doctor or pharmacist before using any other medicine that may contain acetaminophen (sometimes abbreviated as APAP).??Taking certain medications together can lead to a fatal overdose. ?? What are the possible side effects of acetaminophen and hydrocodone? Get emergency medical help if you have??signs of an allergic reaction:?hives; difficulty breathing; swelling of your face, lips, tongue, or throat. ?? Opioid medicine can slow or stop your breathing, and may occur.??A person caring for you should give naloxone and/or seek emergency medical attention if you have slow breathing with long pauses, blue colored lips, or if you are hard to wake up. ?? In rare cases, acetaminophen may cause a severe skin reaction that can be fatal.?This could occur even if you have taken acetaminophen in the past and had no reaction.??Stop taking this medicine and call your doctor right away if you have skin redness or a rash that spreads and causes blisteringand peeling.? Call your doctor at once if you have: ?noisy breathing, sighing, shallow breathing, breathing that stops; ?a light-headed feeling, like you might pass out; ?liver problems--nausea, upper stomach pain, tiredness, loss of appetite, dark urine, shen-colored stools, jaundice (yellowing of the skin or eyes);?low cortisol levels-- nausea, vomiting, loss of appetite, dizziness, worsening tiredness or weakness; o ?high levels of serotonin in the body--agitation, hallucinations, fever, sweating, shivering, fast heart rate, muscle stiffness, twitching, loss of coordination, nausea, vomiting, diarrhea. ?? Serious breathing problems may be more likely in older adults and in those who are debilitated or have wasting syndrome or chronic breathing disorders. ?? Common side effects include: ?dizziness, drowsiness, feeling tired; ?nausea, vomiting, stomach pain;?constipation; or ?headache. ?? This is not a complete list of side effects and others may occur. Call your doctor for medical advice about side effects. You may report side effects to FDA at 5-785-BXQ-7159. ?? What other drugs will affect acetaminophen and hydrocodone? You may have breathing problems or withdrawal symptoms if you start or stop taking certain other medicines.?Tell your doctor if you also use an antibiotic, antifungal medication, heart or blood pressure medication, seizure medication, or medicine to treat HIV or hepatitis C. ?? Opioid medication can interact with many other drugs and cause dangerous side effects or .?Be sure your doctor knows if you also use: ?cold or allergy medicines, bronchodilator asthma/COPD medication, or a diuretic ('water pill'); ?medicines for motion sickness, irritable bowel syndrome, or overactive bladder; ?other opioids--opioid pain medicine or prescription cough medicine; ?a sedative like Valium--diazepam, alprazolam, lorazepam, Xanax, Klonopin, Versed, and others; ?drugs that make you sleepy or slow your breathing--a sleeping pill, muscle relaxer, medicine totreat mood disorders or mental illness; ?drugs that affect serotonin levels in your body--a stimulant, or medicine for depression, Parkinson's disease, migraine headaches, serious infections, or nausea and vomiting. ?? This list is not complete. Other drugs may affect acetaminophen and hydrocodone, including prescription and [id number] medicines, vitamins, and herbal products.??Not all possible interactions are listed here.? Where can I get more information? Your doctor or pharmacist can provide more information about acetaminophen and hydrocodone. ?? Remember, keep this and all other medicines out of the reach of children, never share your medicines with others, and use this medication only for the indication prescribed. ?? Every effort has been made to ensure that the information provided by [employer] is accurate, up-to-date, and complete, but no guarantee is made to that effect. Drug information contained herein may be time sensitive. [employer] information has been compiled for use by healthcare practitioners and consumers in the [place] and therefore [employer] does not warrant that uses outside of the [place] are appropriate, unless specifically indicated otherwise. [employer]'s drug information does not endorse drugs, diagnose patients or recommend therapy. [facility]'s drug information isan informational resource designed to assist licensed healthcare practitioners in caring for their p atients and/or to serve consumers viewing this service as a supplement to, and not a substitute for, the expertise, skill, knowledge and judgment of healthcare practitioners. The absence of a warningfor a given drug or drug combination in no way should be construed to indicate that the drug or drug combination is safe, effective or appropriate for any given patient. [facility] does not assume any responsibility for any aspect of healthcare administered with the aid of information [facility] provides. The information contained herein is not intended to cover all possible uses, directions, precautions, warnings, drug interactions, allergic reactions, or adverse effects. If you have questions about the drugs you are taking, check with your doctor, nurse or pharmacist.? Copyright [employer]. Version: . Revision Date: 07/16/2023. ? Patient/Healthcare Or Medical Signature Patient Name:XAVIER LISA I have received this information and my questions have been answered. Patient/Healthcare Or Medical Name: Patient/Healthcare Or Medical Signature: Relationship to Patient: Witness Name/Signature: Date: Electronically Signed on: 01/04/2024 09:03 ESTSigned by:AF Procedure note * Navarro Holt: PERFORM Event Display: Procedure Note Authored Date: [id number] Fentanyl 50mcg IV given 01/01/24 at 0830 Electronically Signed on 01/02/24 10:48 AM Navarro Holt Nutrition and dietetics Progress note * Antonina Samuel: PERFORM Event Display: Nutrition Note Authored Date: [id number] Assessment and Monitoring Reason for referral: Kedar nutrition score ?? Weight Change: UBW 130# Skin: Surgical Incision Chewing/Swallowing: Some trouble chewing/swallowing GI:??Dairy causes issues Eating Habits at Home: Good ?? Nutrition Assessment: 63 y/o female admitted for a cervical spine fusion and is??#1DPOD. PMH includes osteoarthritis, ANIBAL, IBS, gastritis, and Danny thyroiditis. Medications include fluoxetine, docusate-senna, IV antibiotics, and calcium citrate. Labs of note include glucose levels of 147 (H) but likely??attributed to surgery and inflammation. Patient mentioned previous trouble chewing and swallowing foods before and still??after surgery. States appetite is good both here and at home. Pt has a gluten and dairy intolerance and follows a SIBO diet. Pt states she has trouble finding food that follows a SIBO diet and is gluten and dairy free so it can be hard to keep weight on. Pt is normally 130# but is down to121#. Advised pt on some high calorie options to add to foods to get more nutrition in. Pt was amenable to make changes and try to get her weight back up to her usual body weight??after discharge which will put her at a healthier BMI for her age. Nutrition Diagnosis Inadequate energy intake related to chewing and swallowing issues and dietary restrictions as evidenced by 9#, 7% recent weight loss and pt admission of trouble finding food she can eat. Nutrition Goals POs > 75% meals Increase??calories for weight gain and to promote wound healing Tolerate regular consistency foods Nutrition Interventions Increase calories and protein for healing Continue gluten-free diet Continue supplementing with SIBO diet foods brought from home Anthropometrics/Estimated Needs [id number] kg(Recorded: 01/01/2024 15:44 EST) [id number] cm(Recorded: 01/01/2024 15:44 EST) Body Mass Index19.03 kg/m2(Recorded: 01/01/2024 15:44 EST) Estimated Energy Needs: 1550-1800kcal (28-33kcal/kg actual BW) Estimated Fluid Needs: 1550-1800ml (1ml/kcal) Estimated Protein Needs: 66-82 (1.2-1.5g/kg actual BW) Reason for Visit Numb hand/fingers and H/A Problem List/Past Medical History Ongoing Colonic polyp Constipation Female urinary stress incontinence Gastritis Danny thyroiditis History of kidney stone IBS - Irritable bowel syndrome Migraine Numbness of hand ANIBAL - Obstructive sleep apnea Osteoarthritis Periodic limb movement disorder Sleep related bruxism Historical Primary herpes genitalis Procedure/Surgical History ???Appendectomy??? section???Myomectomy???Open reduction and fixation of fracture???Primaryfusion of cervical spine???Ureterorenoscopy with fragmentation and removal of kidney stone Social History Alcohol Never Electronic Cigarette/Vaping Electronic Cigarette Use: Never. Substance Use Never Tobacco Never tobacco user Tobacco Use:. Diet Orders Diet Order, 01/01/24 12:02:00 EST, Custom (See Special Instructions), Gluten-Free Allergies Bee Stings??(Angioedema) Lactose??(Rash, Diarrhea) Sugar??(Hives) Wheat??(Rash) folic acid??(Malabsorption) oxyCODONE??(Stomach upset) tetracycline??(Rash) Medications Inpatient acetaminophen, 650 mg= 2 tab, Oral, every 4 hr, PRN baclofen, 10 mg= 1 tab, Oral, TID ceFAZolin, 1 g= 50 mL, IV Piggyback, every 8 hr docusate-senna 50 mg-8.6 mg oral tablet, 2 tab, Oral, BID FLUoxetine, 60 mg= 3 cap, Oral, Daily FLUoxetine, 10 mg= 1 cap, Oral, Daily fluticasone 50 mcg/inh nasal spray, 100 mcg= 2 sprays, Nostril-Both, Daily, PRN gabapentin, 300 mg= 1 cap, Oral, every night at bedtime HYDROcodone-acetaminophen 5 mg-325 mg oral tablet, 2 tab, Oral, every 4 hr, PRN HYDROmorphone, 0.25 mg= 0.13 mL, IV Push, every 2 hr, PRN HYDROmorphone, 2 mg= 1 tab, Oral, every 4 hr, PRN naloxone, 0.1 mg= 0.25 mL, IV Push, every 5 min, PRN thyroid desiccated, 45 mg= 1.5 tab, Oral, Daily zolpidem, 5 mg= 1 tab, Oral, every night at bedtime, PRN Home baclofen 10 mg oral tablet, 10 mg= 1 tab, Oral, TID, PRN calcium (as calcium citrate) 250 mg oral tablet, 250 mg= 1 tab, Oral, TID, 2 refills celecoxib 100 mg oral capsule, 100 mg= 1 cap, Oral, BID, PRN EPINEPHrine 0.3 mg injectable kit, 0.3 mg, Intramuscular, Once, PRN FLUoxetine 40 mg oral capsule, 80 mg= 2 cap, Oral, Daily fluticasone 50 mcg/inh nasal spray, 2 sprays, Nostril-Both, Daily, PRN gabapentin 100 mg oral capsule, 300 mg= 3 cap, Oral, every night at bedtime methylcobalamin 1 mg oral tablet, disintegrating, 1 mg= 1 tab, Sublingual, Daily NURSE WOUND CARE Thyroid 15 mg oral tablet, 45 mg= 3 tab, Oral, Daily pyridoxine 100 mg oral tablet, 100 mg= 1 tab, Oral, Daily Electronically Signed on 01/02/24 01:37 PM Antonina Samuel Alicia: PERFORM Event Display: Nutrition Note Authored Date: [id number] This assessment was reviewed and approved by this RD. Elif Ojeda MS, RD, LN. Electronically Signed on 01/02/24 01:38 PM Couture, Elif History and physical note * Augie Chaves DO (Heather): PERFORM Event Display: History and Physical Update Authored Date: [id number] XAVIER LISA :1960 Age:63 years Sex:Female Visit Date:01/01/2024 Primary Care Physician: IRISH SERRANO NP A History of Present Illness Pt presents for surgery today. She reports no new symptoms or changes in medications, allergies, ormedical diagnoses??since her last visit. This is a 63 yo??post??C4-C6??ACDF??in 2005??who presents with??worsening??neck pain and??hand numbness??over the past??few years.?? She noticed in April that her hands were numb and??would get stuck??in a closed position.?? She is right- handed and endorseschanges in her handwriting as well as dropping objects.?? She has noticed that her fingertips feel cold??and tingly??and??they have lost sensitivity to heat. ??She endorses urinary incontinence??previously however this??changed into??more of??retention??which she describes as??an abdominal pressurethat keeps her from voiding.?? She has sustained several??traumas to her head and??torso??which shefeels exacerbated her condition??and has persistent??midthoracic and left??lower rib pain??at the site??of this trauma.?? Symptoms worsen when she extends her neck or??tries to??use her arms??and enga ge??the muscles of her??neck and shoulders.??She would like to proceed with surgery today. Review of Systems As per HPI. Physical Exam Vitals & Measurements T:??36.2?C ??(Temporal Artery)?? HR:??54??(Monitored)?? RR:??14?? BP:??146/68?? SpO2:??99%?? Pain Score:??0?? O2 Therapy:??Room air?? NAD Pleasant Awake and alert Face symmetric Speech fluent and logical Motor 5/5 BUE and BLE all muscle groups No hand atrophy +Tinel's at carpal tunnel bilaterally, negative at cubital tunnel bilaterally +Lerner's bilaterally No clonus Assessment/Plan Ordered: ceFAZolin, 2 g = 50 mL, IV Piggyback, Injection, PREOP, Antibiotic Indication Prophylaxis- surgical, Administer over: 0.5 hr, First Dose: 12/31/23 11:00:00 EST, Physician Stop, Routine, 100 mL/hr sodium chloride 0.9% flush, 10 mL, IV Flush, Injection, every 8 hr, First Dose: 12/31/23 17:00:00 EST, Routine sodium chloride 0.9% flush, 10 mL, IV Flush, Injection, As Directed, First Dose: 12/31/23 10:14:00 EST, Physician Stop, Routine Sodium Chloride 0.9% 1,000 mL, Total Volume (mL): 1,000, 1,000 mL, Soln-IV, IV, 75 mL/hr, Start Date: 12/31/23 10:14:00 EST, 55 kg, Populate Charting Weight From Order, 1.6, m2 Communication Order, 12/31/23 10:14:00 EST, Antibiotic Prior to incision Peripheral IV Insertion, 12/31/23 10:14:00 EST Sequential Compression Devices (SCD's), 12/31/23 10:14:00 EST, Constant Order, Knee high sequentials, 12/31/23 10:14:00 EST Sequential Compression Devices (SCD's), 12/31/23 10:14:00 EST, Constant Order, 12/31/23 10:14:00 EST Surgical Prep, 12/31/23 10:14:00 EST, Stop date 12/31/23 10:14:00 EST, Chloraprep XR Fluoroscopy Over 1 Hour, 01/01/24 6:11:00 EST, Routine, Reason: FUSION, IN OR, Transport Mode: Ambulatory XR Spine Cervical 1 View, 01/01/24 6:11:00 EST, Routine, Reason: FUSION, IN OR, Transport Mode: Ambulatory, ABN Status: Required & Missing, ABN Reason: Procedures may not be covered due to janak 62-year-old female status post C4-C6??ACDF??presenting with 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 I recommended C3- 4??ACDF with a low-profile??interbody??cage. ??I discussed the surgery, surgical risks, and expected postoperative course.?? Patient asked that I pr oceed.?Informed consent obtained. Problem List/Past Medical History Ongoing Colonic polyp Constipation Female urinary stress incontinence Gastritis Danny thyroiditis History of kidney stone IBS - Irritable bowel syndrome Migraine Numbness of hand ANIBAL - Obstructive sleep apnea Osteoarthritis Periodic limb movement disorder Sleep related bruxism Historical Primary herpes genitalis Procedure/Surgical History ???Appendectomy??? section???Myomectomy???Open reduction and fixation of fracture???Primaryfusion of cervical spine???Ureterorenoscopy with fragmentation and removal of kidney stone Medications Inpatient ceFAZolin, 2 g= 50 mL, IV Piggyback, PREOP Sodium Chloride 0.9% 1,000 mL, 1000 mL, IV sodium chloride 0.9% flush, 10 mL, IV Flush, every 8 hr sodium chloride 0.9% flush, 10 mL, IV Flush, As Directed Home BACLOFEN 10 MG TABLET, 1 tab, Oral, TID, PRN calcium (as calcium citrate) 250 mg oral tablet, 250 mg= 1 tab, Oral, TID, 2 refills calcium (as carbonate)-vitamin D 500 mg-100 intl units oral tablet, chewable, 2 tab, Chewed, Daily celecoxib 100 mg oral capsule, 100 mg= 1 cap, Oral, BID, PRN EPINEPHrine 0.3 mg injectable kit, 0.3 mg, Intramuscular, Once, PRN FLUoxetine 40 mg oral capsule, 1.5 caps, Oral, Daily fluticasone 50 mcg/inh nasal spray, 2 sprays, Nostril-Both, Daily, PRN gabapentin 100 mg oral capsule, 300 mg= 3 cap, Oral, every night at bedtime NURSE WOUND CARE Thyroid 15 mg oral tablet, 45 mg= 3 tab, Oral, Daily Allergies Bee Stings??(Angioedema) Lactose??(Rash, Diarrhea) Sugar??(Hives) Wheat??(Rash) folic acid??(Malabsorption) oxyCODONE??(Stomach upset) tetracycline??(Rash) Social History Alcohol Never Electronic Cigarette/Vaping Electronic Cigarette Use: Never. Substance Use Never Tobacco Never tobacco user Tobacco Use:. Electronically Signed on 01/01/24 07:27 AM Augie Chaves DO (Heather) Progress note * Augie Chaves DO (Heather): PERFORM Event Display: Progress Note - Physician Authored Date: [id number] Subjective The patient is POD#2 s/p C3-4 ACDF.?She reports that she??continues to have??significant neck pain which is relieved by pain medications.??She does note improved dexterity in her hands but intermittent numbness in her fingertips.?? The patient has been up and ambulatory and is able to??get around her room to the bathroom. She has??significant pain in her throat??but is able to eat and drink without difficulty.??She is not feeling well overall, about the same as yesterday. She does not think she can go home today. Pt notes an area of erythema below her incision which she thinks feels warm. She says that she typically reacts in this manner after surgeries but didn't feel this way after herlast ACDF. Medications Inpatient acetaminophen, 650 mg= 2 tab, Oral, every 4 hr, PRN baclofen, 10 mg= 1 tab, Oral, TID benzocaine-menthol 20%-0.5% topical spray, 1 nelsy, Topical, every 2 hr, PRN docusate-senna 50 mg-8.6 mg oral tablet, 2 tab, Oral, BID FLUoxetine, 60 mg= 3 cap, Oral, Daily FLUoxetine, 10 mg= 1 cap, Oral, Daily fluticasone 50 mcg/inh nasal spray, 100 mcg= 2 sprays, Nostril-Both, Daily, PRN gabapentin, 300 mg= 1 cap, Oral, every night at bedtime HYDROcodone-acetaminophen 5 mg-325 mg oral tablet, 2 tab, Oral, every 4 hr, PRN HYDROmorphone, 0.25 mg= 0.13 mL, IV Push, every 2 hr, PRN HYDROmorphone, 2 mg= 1 tab, Oral, every 4 hr, PRN naloxone, 0.1 mg= 0.25 mL, IV Push, every 5 min, PRN thyroid desiccated, 45 mg= 1.5 tab, Oral, Daily zolpidem, 5 mg= 1 tab, Oral, every night at bedtime, PRN Home baclofen 10 mg oral tablet, 10 mg= 1 tab, Oral, TID, PRN calcium (as calcium citrate) 250 mg oral tablet, 250 mg= 1 tab, Oral, TID, 2 refills celecoxib 100 mg oral capsule, 100 mg= 1 cap, Oral, BID, PRN EPINEPHrine 0.3 mg injectable kit, 0.3 mg, Intramuscular, Once, PRN FLUoxetine 40 mg oral capsule, 80 mg= 2 cap, Oral, Daily fluticasone 50 mcg/inh nasal spray, 2 sprays, Nostril-Both, Daily, PRN gabapentin 100 mg oral capsule, 300 mg= 3 cap, Oral, every night at bedtime methylcobalamin 1 mg oral tablet, disintegrating, 1 mg= 1 tab, Sublingual, Daily NURSE WOUND CARE Thyroid 15 mg oral tablet, 45 mg= 3 tab, Oral, Daily pyridoxine 100 mg oral tablet, 100 mg= 1 tab, Oral, Daily Physical Exam Vitals & Measurements T:??36.4?C ??(Temporal Artery)?? TMIN:??36.2?C ??(Temporal Artery)?? TMAX:??37.2?C ??(Temporal Artery)?? HR:??65??(Peripheral)?? RR:??20?? BP:??118/64?? SpO2:??96%?? Pain Score:??2?? O2 Therapy:??Room air?? General: The patient is??sitting up in bed and is pleasant and conversant. The voice is normal. Well-appearing. Respiratory: Respirations are unlabored. Trachea midline. Neurological: Full power bilateral upper extremities. Dermatological: The anterior cervical wound is flat and dry??with erythema tracking inferiorly to about the manubrium level. No fluctance or palpable collection. Warmth is comparable to the surrounding nonerythematous area. Lab Results No qualifying data available Imaging Results (Last 24 Hours) No qualifying data available. Assessment/Plan 1.??S/P cervical spinal fusion??Z98.1 63yo F POD#2 following C3-4 ACDF. Pt is doing well from neurological standpoint but is generally not feeling well. Throat culture pending for possible illness coming into surgery. I will also send CBC, CMP, UA, ESR, CRP and blood cultures to r/o infection from other sources. Will also order benzocaine-menthol spray for her sore throat. Will recheck this afternoon to see if she is feeling better and determine dispo at that time. Orders: benzocaine-menthol 20%-0.5% topical spray, 1 nelsy, Topical, [place], every 2 hr for 30 days, PRN sore throat, First Dose: 01/03/24 8:33:00 EST, Stop Date: 02/02/24 8:32:00 EST, Physician Stop, Routine Blood Culture, Blood, Routine collect, RT - Routine, 01/03/24 8:36:00 EST, Once, Lab Collect, PrintLabel Blood Culture, Blood, Routine collect, RT - Routine, 01/03/24 8:36:00 EST, Once, Lab Collect, PrintLabel C-Reactive Protein, Blood, Routine, 01/03/24 8:36:00 EST, Once, Lab Collect CBC w/ Diff, Blood, Routine, 01/03/24 8:34:00 EST, Once, Lab Collect Comprehensive Metabolic Panel, Blood, Routine, 01/03/24 8:34:00 EST, Once, Lab Collect Sedimentation Rate (ESR), Blood, Routine, 01/03/24 8:34:00 EST, Once, Lab Collect Urinalysis with Micro if Indicated and Culture if Indicated, Urine, Routine Collect, 01/03/24 8:34:00 EST, Once, Nurse collect, Print Label Problem List/Past Medical History Ongoing Colonic polyp Constipation Female urinary stress incontinence Gastritis Danny thyroiditis History of kidney stone IBS - Irritable bowel syndrome Migraine Numbness of hand ANIBAL - Obstructive sleep apnea Osteoarthritis Periodic limb movement disorder Sleep related bruxism Historical Primary herpes genitalis Procedure/Surgical History ???Appendectomy??? section???Myomectomy???Open reduction and fixation of fracture???Primaryfusion of cervical spine???Ureterorenoscopy with fragmentation and removal of kidney stone Allergies Bee Stings??(Angioedema) Lactose??(Rash, Diarrhea) Sugar??(Hives) Wheat??(Rash) folic acid??(Malabsorption) oxyCODONE??(Stomach upset) tetracycline??(Rash) Social History Alcohol Never Electronic Cigarette/Vaping Electronic Cigarette Use: Never. Substance Use Never Tobacco Never tobacco user Tobacco Use:. Electronically Signed on 01/03/24 09:10 AM Augie Chaves DO (Heather) * Augie Chaves DO (Heather): PERFORM Event Display: Progress Note - Physician Authored Date: [id number] I saw and examined pt again at 4pm. The erythema below her incision appears improved. Pt is also reporting some improvement of the overall ill feeling. Labs to date are normal. Will continue to monitor and likely discharge tomorrow. Electronically Signed on 01/03/24 04:28 PM Augie Chaves DO (Heather) * Cici Romero APRN-VEGETABLE I FARMWORKER: PERFORM Event Display: Progress Note - Physician Authored Date: [id number] XAVIER LISA :1960 Age:63 years Sex:Female Visit Date:01/01/2024 Primary Care Physician: IRISH SERRANO NP The patient underwent ACDF C3-[address] Chaves yesterday.?? She is reporting increased posterior neckpain that radiates up into her ears as well as??anterior neck pain at the site of the incision.?? She has been applying ice which is somewhat helpful though the ice packs here are also somewhat irritating.?? She does feel the pain medication is helping manage her postoperative pain. ??She has noticed that the paresthesias in her hands are just about gone.?? The patient has been up and ambulatory and is able to??get around her room to the bathroom without too much difficulty though she does feelsomewhat unsteady and dizzy which she attributes to the medications.?? She has??significant pain inher throat??but is able to swallow??without difficulty.?? The patient states that she did feel as though she may be coming down with something??the week prior to??her surgery with??a cough, neck and ear pain but this seemed to have resolved a couple days prior to surgery. ??She is wondering if she may be ill. ??She is prone to strep throat. Review of Systems Relevant ROS discussed in HPI Objective Vitals & Measurements T:??36.9?C ??(Temporal Artery)?? TMIN:??36.1?C ??(Temporal Artery)?? TMAX:??37.1?C ??(Temporal Artery)?? HR:??56??(Peripheral)?? BP:??125/75?? SpO2:??100%?? HT:??170??cm?? WT:??55??kg?? BMI:??19.03?? Pain Score:??6?? O2 Therapy:??Room air?? BSA:??1.61?? Physical Exam General: The patient is??sitting up in bed and is pleasant and conversant. The voice is normal. Respiratory: Respirations are unlabored. Neurological: Full power bilateral upper extremities??though strength is??doing does??increase her neck pain. Dermatological: The anterior cervical wound is flat and dry??with mild ecchymosis. Assessment/Plan 1.??S/P cervical spinal fusion??Z98.1 Orders: Throat Culture, Throat, Routine collect, RT - Routine, 01/02/24 8:19:00 EST, Once, Nurse collect The patient underwent ACDF C3-4 yesterday.?? Her voice sounds normal.?? She is experiencing posterior and anterior neck pain??as well as a significant sore throat.?? She is able to swallow without difficulty.?? The patient was reassured that??the discomfort in her throat is very likely due to the surgery??and will improve??however??she did feel that she may have??been becoming ill even prior to the surgery and is prone to strep throat so we will obtain a throat culture.?? The patient is ambulatory but feels somewhat unsteady and dizzy. ??It is very likely this is due to the anesthesia as wellas the pain medications.?? She will be evaluated by physical therapy today.?? The patient lives alone and given her unsteadiness??as well as her significant pain, I am recommending that she stay??until tomorrow and will be evaluated by Dr. Chaves at that time. ??She is in agreement. Plan: Throat culture. Physical therapy. Continue neurological monitoring. Likely discharge home tomorrow. Electronically Signed on 01/02/24 08:21 AM CAITLIN Marvin Discharge summary * CAITLIN Marvin: PERFORM Event Display: Discharge Summary Authored Date: [id number] XAVIER LISA :1960 Age:63 years Sex:Female Visit Date:01/01/2024 Primary Care Physician: IRISH SERRANO NP Hospital Course The patient is 3 days postop from her ACDF C3-4.?? She continues to have anterior and posterior neck pain but this has improved??over the past few days.?? Overall the dexterity in her hands and paresthesias have improved though she still does have intermittent numbness and tingling in her hands.?? She has been up and ambulatory and feels that her balance is good and feels steady and strong. ??Shedenies any new radicular pain, paresthesias or weakness.?? The patient was feeling like she may be ill shortly after the surgery with an increased sore throat, ear pain and just feeling very poorly.?? Her laboratory workup was unremarkable showing no signs of infection.?? She feels that she is feeling better today. Physical Exam Vitals & Measurements T:??36.8?C ??(Temporal Artery)?? TMIN:??36.4?C ??(Temporal Artery)?? TMAX:??36.8?C ??(Temporal Artery)?? HR:??57??(Peripheral)?? RR:??16?? BP:??110/66?? SpO2:??97%?? Pain Score:??6?? O2 Therapy:??Room air?? General: The patient is lying in bed and is pleasant and conversant. The voice is normal. Respiratory: Respirations are unlabored. Neurological: Full power bilateral upper extremities. Dermatological: The anterior cervical wound is flat and dry.?? There is some mild??purple ecchymosis and erythema just below the surgical incision but much improved from the previous 2 days. Procedure/Surgical History ???Appendectomy??? section???Myomectomy???Open reduction and fixation of fracture???Primaryfusion of cervical spine???Ureterorenoscopy with fragmentation and removal of kidney stone Social History Alcohol Never Electronic Cigarette/Vaping Electronic Cigarette Use: Never. Substance Use Never Tobacco Never tobacco user Tobacco Use:. Discharge Plan 1.??S/P cervical spinal fusion??Z98.1 Ordered: Discharge Patient, 01/04/24 8:35:00 EST, Home Independently, Constant Indicator ?? Orders: baclofen 10 mg oral tablet, 10 mg = 1 tab, Oral, TID, PRN spasm, # 60 tab, 0 Refill(s), Pharmacy: [facility], 170, cm, 01/01/24 15:44:00 EST, Height, 55, kg, 01/01/24 15:45:00 EST, WeightDosing HYDROcodone-acetaminophen 5 mg-325 mg oral tablet, See Instructions, PRN pain, severe, 1-2 tab Oralevery 6 hr, # 50 tab, 0 Refill(s), Pharmacy: [facility], 170, cm, 01/01/24 15:44:00 EST, Height, 55, kg, 01/01/24 15:45:00 EST, Weight Dosing Throat Culture, Throat, Routine collect, RT - Routine, 01/02/24 8:19:00 EST, Once, Nurse collect The patient is 3 days postop from her ACDF.?? Initially she had significant neck pain, throat pain and ear pain but that is improving.?? She had a laboratory workup that was unremarkable with no signs of infection.?? Her C-reactive protein was elevated but this is expected following surgery. ??Her throat culture was negative.?? Her paresthesias and dexterity is slowly improving. ??Her balance is good. ??She will be discharged home with a short course of the pain medication as well as her musclerelaxer which she finds most helpful.?? She is instructed to participate in light activity only andavoid any heavy lifting or strenuous activity for now. ??She can do very gentle stretches of her neck. ??She is??utilizing a soft collar for comfort but was vies not to wear this too frequently. ??She only plans to wear this on her ride home.?? She can shower as needed. ??She will follow-up with Dr. Chaves in the office. Plan: Follow-up at postoperative visit. All Diagnoses This Visit S/P cervical spinal fusion Patient Education Reese - Dr. Page - [facility] Discharge Instructions (CUSTOM) Follow Up With When Contact Information Augie Chaves DO (Heather) Within 1 to [address] [place] [phone] Additional Instructions: Medication Reconciliation New Prescription HYDROcodone-acetaminophen (HYDROcodone-acetaminophen 5 mg-325 mg oral tablet)1-2 tab Oral every 6 hr; as needed pain, severe. Refills: 0. ?? Changed FLUoxetine (FLUoxetine 40 mg oral capsule)2 Capsules Oral (given by mouth) every day. ?? Unchanged baclofen (baclofen 10 mg oral tablet)1 tab Oral (given by mouth) 3 times a day as needed spasm. Refills: 0. ?? calcium citrate (calcium (as calcium citrate) 250 mg oral tablet)1 tab Oral (given by mouth) 3 times a day. Refills: 2. ?? celecoxib (celecoxib 100 mg oral capsule)1 Capsules Oral (given by mouth) 2 times a day as needed as needed for arthritis. ?? EPINEPHrine (EPINEPHrine 0.3 mg injectable kit)0.3 Milligrams Intramuscular (in a muscle) once as needed anaphylaxis. ?? fluticasone nasal (fluticasone 50 mcg/inh nasal spray)2 Sprays Nostril-Both every day as needed as needed for allergy symptoms. ?? gabapentin (gabapentin 100 mg oral capsule)3 Capsules Oral (given by mouth) every night at bedtime. ?? methylcobalamin (methylcobalamin 1 mg oral tablet, disintegrating)1 tab Sublingual (dissolve under the tongue) every day. dissolve under the tongue OTC methylcobalamin. ?? pyridoxine (pyridoxine 100 mg oral tablet)1 tab Oral (given by mouth) every day. ?? thyroid desiccated (NURSE WOUND CARE Thyroid 15 mg oral tablet)3 tab Oral (given by mouth) every day. Electronically Signed on 01/04/24 08:37 AM CAITLIN Marvin Patient Care team information Care Team Personnel Name: IRISH SERRANO NP Position: No Access Member Role: Primary Care Physician Address: Address: [address] [place] [address]- Care Team Related Persons Name: RENNY BALL
--- OUTSIDE RECORDS SUMMARY | 2024-06-27 15:18 | XMS_ITS | Continuity of Care Document ---
Author Organization [facility] Address [address] [place] [address] Care Team Providers Care Memorial Adviser Name Role Phone ZACH PUGH, IRISH Ramey Primary Care Physician Encounter [facility] NBR [id number] Date(s): 03/20/24 - 03/20/24 [facility] [address] [place] [address] [place] Discharge Disposition: Home Allergies, Adverse Reactions, [...] spasm, # 60 tab, 0 Refill(s), Pharmacy: [facility], 170, cm, 01/01/24 15:44:00 EST, Height, 55, kg, 01/01/24 15:45:00 EST, Weight Dosing Start Date: 01/04/24 Status: Ordered baclofen 5 mg oral tablet 5 mg = 1 tab, Oral, TID, # 90 tab, 0 Refill(s), Pharmacy: [facility], 170, cm, 01/01/24 15:44:00 EST, Height, 55, kg, 01/01/24 15:45:00 EST, Weight Dosing Start Date: 01/24/24 Status: Ordered calcium (as calcium citrate) 250 mg oral tablet 250 mg = 1 tab, Oral, TID, # 270 tab, 2 Refill(s), [facility]: [facility], 168, cm, 12/12/23 14:31:00 [...] 30 tab, 0 Refill(s), Pharmacy: [facility],167.64, cm, 02/20/24 10:05:00 EDT, Height, 55.5, kg, 02/20/24 10:12:00 EDT, Weight Dosing Start Date: 03/06/24 Status: Ordered methylcobalamin 1 mg oral tablet, disintegrating 1 mg = 1 tab, Sublingual, Daily, dissolve under the tongue OTC methylcobalamin, # 60 tab, 0 Refill(s) Start Date: 01/01/24 Status: Ordered ER NURSE Thyroid 15 mg oral tablet 45 mg = 3 tab, Oral, Daily, 0 Refill(s) Start Date: 12/11/23 Status: Ordered oxyCODONE 5 mg oral tablet 5 mg = 1 tab, Oral, every 6 hr, PRN as needed for pain, # 30 tab, 0 Refill(s), Pharmacy: [facility], 167.64, cm, 02/20/24 10:05:00 EDT, [...] Daily, # 270 tab, 0 Refill(s), Pharmacy: [facility], 170, cm, 01/01/24 15:44:00 EST, Height, 55, kg, 01/01/24 15:45:00 EST, Weight Dosing Start Date: 01/24/24 Status: Ordered VSL#3 oral capsule 2 cap, Oral, Daily, # 60 cap, 0 Refill(s), Pharmacy: [facility], 170, cm, 01/01/24 15:44:00 EST, Height, [...] MRI Safety Implantable Status Assigning Authority Unknown [id number] Unknown Unknown 06/20/25 Unknown Unknown Active Unknown Unknown Unknown [id number] Unknown 09/17/27 Unknown Unknown Active Unknown Unknown Unknown [id number] Unknown 12/29/27 Unknown Unknown Active Unknown Unknown Unknown [id number] Unknown 11/13/26 Unknown Unknown Active Unknown Patient Care team information Care Team Personnel Name: IRISH SERRANO NP Position: No Access Member Role: Primary Care Physician Address: Address: [address] [place] [address] Care Team Related Persons Name: RENNY BALL
--- OUTSIDE RECORDS SUMMARY | 2024-06-27 15:18 | XMS_ITS | Continuity of Care Document ---
Author Organization [facility] Address [address] [place] [address] Care Team Providers Care Normalizer Name Role Phone IRISH SERRANO NP Primary Care Physician Encounter [facility] NBR [id number] Date(s): 11/22/23 - 11/22/23 [facility] [address] [place] [address]- [place] Encounter Diagnosis Brain concussion(Discharge Diagnosis) - 11/22/23 Discharge Disposition: Home Allergies, Adverse Reactions, Alerts No Known Medication [...] BID, # 180 cap, 1 Refill(s), Pharmacy: [facility], 167.64, cm, 11/08/23 13:10:00 EST, Height, 57.06, kg, 11/08/23 13:18:00 EST, Weight Dosing Start Date: 11/08/23 Status: Ordered Social History Social History Type Response Tobacco Never tobacco user T obacco Use:. Sex Patient Care team information Care Team Personnel Name: IRISH SERRANO NP Position: No Access Member Role: Primary Care Physician Address: Address: [address] [place] [id number]
--- OUTSIDE RECORDS SUMMARY | 2024-06-27 15:18 | XMS_ITS | Continuity of Care Document ---
Author Organization [facility] Address [address] [place] [address] Care Team Providers Care Importer Or Exporter Name Role Phone IRISH SERRANO NP Primary Care Physician Encounter [facility] NBR [id number] Date(s): 02/04/24 - 02/04/24 [facility] [address] [place] [address] us Discharge Disposition: Home Allergies, Adverse Reactions, Alerts Substance Reaction Severity Status tetracycline Rash Mild Active folic acid Malabsorption Mild Active Bee Stings Angioedema Severe Active oxyCODONE Stomach upset Mild Active Wheat Rash Mild Active Sugar Hives Mild Active Lactose Rash Diarrhea Mild Active Assessment and Plan Future Appointments Future Scheduled Tests Radiology* XR Spine Cervical 2 or 3 Views 01/24/24 Medications AAA - Misc Prescription 90 EA, 0 Refill(s), TAKE ONE TABLET BY MOUTH THREE TIMES A DAY, 0 Refill(s) Start Date: 01/28/24 Status: Ordered baclofen 10 mg oral tablet 10 mg = 1 tab, Oral, TID, PRN spasm, # 60 tab, 0 Refill(s), Pharmacy: [facility], 170, cm, 01/01/24 15:44:00 EST, Height, 55, kg, 01/01/24 15:45:00 EST, Weight Dosing Start Date: 01/04/24 Status: Ordered baclofen 5 mg oral tablet 5 mg = 1 tab, Oral, TID, # 90 tab, 0 Refill(s), Pharmacy: [facility], 170, cm, 01/01/24 15:44:00 EST, Height, 55, kg, 01/01/24 15:45:00 EST, Weight Dosing Start Date: 01/24/24 Status: Ordered calcium (as calcium citrate) 250 mg oral tablet 250 mg = 1 tab, Oral, TID, # 270 tab, 2 Refill(s), Pharmacy: [facility], 168, cm, 12/12/23 14:31:00 EST, Height, 55, [...] 0 Refill(s) Start Date: 01/01/24 Status: Ordered NOTARY PUBLIC Thyroid 15 mg oral tablet 45 mg = 3 tab, Oral, Daily, 0 Refill(s) Start Date: 12/11/23 Status: Ordered NOTARY PUBLIC Thyroid 30 mg oral tablet 45 EA, 0 Refill(s), TAKE ONE AND ONE-HALF TABLETS BY MOUTH EVERY DAY, 0 Refill(s) Start Date: 01/28/24 Status: Ordered oxyCODONE 5 mg oral tablet 5 mg = 1 tab, Oral, every 4 hr, PRN as needed for pain, pt cannot tolerate acetaminophen in vicodin-acetaminophen script she was given earlier, # 30 tab, 0 Refill(s), Pharmacy: [facility], 170,cm, 01/01/24 15:44:00 EST, Height, 55, [...] Daily, # 270 tab, 0 Refill(s), Pharmacy: [facility], 170, cm, 01/01/24 15:44:00 EST, Height, 55, kg, 01/01/24 15:45:00 EST, Weight Dosing Start Date: 01/24/24 Status: Ordered VSL#3 oral capsule 2 cap, Oral, Daily, # 60 cap, 0 Refill(s), Pharmacy: [facility], 170, cm, 01/01/24 15:44:00 EST, [...] MRI Safety Implantable Status Assigning Authority Unknown [id number] Unknown Unknown 06/20/25 Unknown Unknown Active Unknown Unknown Unknown [id number] Unknown 09/17/27 Unknown Unknown Active Unknown Unknown Unknown [id number] Unknown 12/29/27 Unknown Unknown Active Unknown Unknown Unknown [id number] Unknown 11/13/26 Unknown Unknown Active Unknown Patient Care team information Care Team Personnel Name: IRISH SERRANO NP Position: No Access Member Role: Primary Care Physician Address: Address: [address] [place] [id number] [place] [address] Care Team Related Persons Name: RENNY BALL
--- OUTSIDE RECORDS SUMMARY | 2024-06-27 15:18 | XMS_ITS | Continuity of Care Document ---
Author Organization [facility] Address [address] [place] [address] Encounter [facility] R [id number] Date(s): 10/05/23 - 10/05/23 [facility] [address] [place] [address]- [place] Discharge Disposition: Home
--- OUTSIDE RECORDS SUMMARY | 2024-06-27 15:18 | XMS_ITS | Encounter Summary ---
[place] [address] Care Team Providers Care Sales Merchandiser Name Role Phone Unavailable Primary Care Provider Unavailabl e Encounter Details Date Type Department Care Team (Late st Contact Info) Description 01/13/2016 - 01/13/2016 11:59 PM EST Hospital Encounter [place] [address] [address] Davon Temporary Pain Discharge Disposition: Home [...] LIBRARY STORAGE ONLY DX UPPER EXTREMITY Routine 01/13/2016 12:00 AM EST Pain documented in this encounter Results * Film Library- Storage only DX Upper Extremity (01/13/2016 12:00 AM EST) Narrative DENISE - 01/27/2016 11:23 AM EST See PACS for result report. Dr Aileen Mays IMG FILM LIBRARY ORD ERABLES [place], [place] documented in this encounter Visit Diagnoses Diagnosis Pain Generalized pain documented in this encounter
--- OUTSIDE RECORDS SUMMARY | 2024-06-27 15:18 | XMS_ITS | Encounter Summary ---
Author Organization [facility] [place] [address] Care Team Providers Care Die Tripper Name Role Phone Unavailable Primary Care Provider Unavailabl e Encounter Details Date Type Department Care Team (Latest Contact Info) Description 10/11/2015 - 10/11/2015 11:59 PM EST Hospital Encounter [place] [address] Yeny Manuel MD [facility] [place] [address] Discharge Disposition: Home Social History Tobacco Use [...] FILM LIBRARY STORAGE ONLY CT ABDOMEN Routine 10/11/2015 12:00 AM EST documented in this encounter Results * Film Library- Storage Only CT Abdomen (10/11/2015 12:00 AM EST) Narrative [facility] - 01/31/2018 1:35 PM EST This exam is for storage only and is auto-finalizing. Yeny Manuel MD IM FILM LIBRARY ORD ERABLES Performing Organization Address City/State/[facility] Co de Phone Number [place], [place] documented in this encounter Visit Diagnoses Not on filedocumented in this encounter
--- OUTSIDE RECORDS SUMMARY | 2024-06-27 15:18 | XMS_ITS | Continuity of Care Document ---
Author Organization [facility] Ambulatory Clinics Address [address] [place] [address] Care Team Providers Care Neurodiagnostic Technician Name Role Phone ZACH PUGH, IRISH Ramey Primary Care Physician Encounter [facility] NBR [id number] Date(s): 02/08/24 - 02/08/24 [facility] [address] [place] [address] us Discharge Disposition: Home Allergies, Adverse Reactions, [...] spasm, # 60 tab, 0 Refill(s), Pharmacy: [facility], 170, cm, 01/01/24 15:44:00 EST, Height, 55, kg, 01/01/24 15:45:00 EST, Weight Dosing Start Date: 01/04/24 Status: Ordered baclofen 5 mg oral tablet 5 mg = 1 tab, Oral, TID, # 90 tab, 0 Refill(s), Pharmacy: [facility], 170, cm, 01/01/24 15:44:00 EST, Height, 55, kg, 01/01/24 15:45:00 EST, Weight Dosing Start Date: 01/24/24 Status: Ordered calcium (as calcium citrate) 250 mg oral tablet 250 mg = 1 tab, Oral, TID, # 270 tab, 2 Refill(s), Pharmacy: [facility], 168, cm, 12/12/23 14:31:00 EST, [...] hr, # 60 cap, 0 Refill(s), Pharmacy: [facility], 170, cm, 01/01/24 15:44:00 EST, Height, 55, kg, 01/01/24 15:45:00 EST, Weight Dosing Start Date: 02/07/24 Status: Ordered HYDROcodone-acetaminophen 5 mg-325 mg oral tablet 50 EA, 0 Refill(s), 0 Refill(s) Start Date: 01/28/24 Status: Ordered HYDROcodone-acetaminophen 7.5 mg-325 mg oral tablet 1 tab, Oral, TID, PRN as needed for pain, # 30 tab, 0 Refill(s), Pharmacy: [facility], 170, cm, 01/01/24 15:44:00 EST, Height, 55, kg, 01/01/24 15:45:00 EST, Weight Dosing Start Date: 01/29/24 Status: Ordered methylcobalamin 1 mg oral tablet, disintegrating 1 mg = 1 tab, Sublingual, Daily, dissolve under the tongue OTC methylcobalamin, # 60 tab, 0 Refill(s) Start Date: 01/01/24 Status: Ordered MOWER MECHANIC Thyroid 15 mg oral tablet 45 mg = 3 tab, Oral, Daily, 0 Refill(s) Start Date: 12/11/23 Status: Ordered MOWER MECHANIC Thyroid 30 mg oral tablet 45 EA, 0 Refill(s), TAKE ONE AND ONE-HALF TABLETS BY MOUTH EVERY DAY, 0 Refill(s) Start Date: 01/28/24 Status: Ordered oxyCODONE 5 mg oral tablet 5 mg = 1 tab, Oral, every 4 hr, PRN as needed for pain, pt cannot tolerate acetaminophen in vicodin-acetaminophen script she was given earlier, # 30 tab, 0 Refill(s), Pharmacy: [facility], 170,cm, 01/01/24 15:44:00 EST, Height, 55, [...] Daily, # 270 tab, 0 Refill(s), Pharmacy: [facility], 170, cm, 01/01/24 15:44:00 EST, Height, 55, kg, 01/01/24 15:45:00 EST, Weight Dosing Start Date: 01/24/24 Status: Ordered VSL#3 oral capsule 2 cap, Oral, Daily, # 60 cap, 0 Refill(s), Pharmacy: [facility], 170, cm, 01/01/24 15:44:00 EST, Height, [...] from documented surgical case 2left leg 2019 Social History Social History Type Response Tobacco Never tobacco user T obacco Use:. Sex Implantable Device List Procedure Provider Procedure Date Device Type Site Anterior Cervical Fusion Augie Chaves DO (Heather) 01/01/24 Unknown Neck Device Identifier Serial Number Lot or Batch Number Manufacturing Date Expiration Date Distinct Identification Code MRI Safety Implantable Status Assigning Authority Unknown [id number] Unknown Unknown 06/20/25 Unknown Unknown Active Unknown Unknown Unknown [id number] Unknown 09/17/27 Unknown Unknown Active Unknown Unknown Unknown [id number] Unknown 12/29/27 Unknown Unknown Active Unknown Unknown Unknown [id number] 2 Unknown 11/13/26 Unknown Unknown Active Unknown Patient Care team information Care Team Personnel Name: IRISH SERRANO NP Position: No Access Member Role: Primary Care Physician Address: Address: [address] [place] [address] Care Team Related Persons Name: RENNY BALL
--- OUTSIDE RECORDS SUMMARY | 2024-06-27 15:18 | XMS_ITS | Continuity of Care Document ---
Author Organization [facility] Address [address] [place] [address] Care Team Providers Care Intensive Care Unit Registered Nurse Name Role Phone IRISH SERRANO NP Primary Care Physician [phone] Encounter [facility] NBR [id number] Date(s): 12/10/23 - 12/10/[address] [address] [place] Discharge Disposition: Home or [...] BID, # 180 cap, 1 Refill(s), Pharmacy: [facility], 167.64, cm, 11/08/23 13:10:00 EST, Height, 57.06, kg, 11/08/23 13:18:00 EST, Weight Dosing Start Date: 11/08/23 Status: Ordered Social History Social History Type Response Tobacco Never tobacco user T obacco Use:. Sex Patient Care team information Care Team Personnel Name: IRISH SERRANO NP Position: No Access Member Role: Primary Care Physician Address: Address: [address] [place] [phone]
--- OUTSIDE RECORDS SUMMARY | 2024-06-27 15:18 | XMS_ITS | Continuity of Care Document ---
Author Organization [facility] Address [address] [place] [address] Care Team Providers Care Quality Director Name Role Phone ZACH PUGH, IRISH Ramey Primary Care Physician [phone] Encounter [facility] NBR [id number] Date(s): 12/18/23 - 12/18/[address] [address] [place] Encounter Diagnosis Cervical spinal stenosis due to adjacent segment disease after fusion procedure (Discharge Diagnosis) - 12/18/23 Other cervical disc degeneration, unspecified cervical region(Discharge Diagnosis) - 12/18/23 Procedure and treatment not carried out for other reasons(Final) - Discharge Disposition: Home f/u External Provider Attending Physician: Augie Chaves DO (Heather) Admitting Physician: Augie Chaves DO (Heather) Referring Physician: Augie Chaves DO (Heather) Allergies, Adverse Reactions, Alerts Substance Reaction Severity Status tetracycline Rash Mild Active folic acid Malabsorption Mild Active Bee Stings Angioedema Severe Active oxyCODONE Stomach upset Mild Active Wheat Rash Mild Active Lactose Diarrhea Mild Active Sugar Hives Mild Active Assessment and Plan Future Appointments Functional Status 12/18/23 Anti-Embolism Device Activity: Applied Anti-Embolism Site Condition: No complic ations 12/18/23 ADLs Independent Antiembolism Device Intermittent pneumat ic compression devices, knee high, bilat Medications BACLOFEN 10 MG TABLET BACLOFEN 10 MG TABLET, 1 tab, Oral, TID, PRN muscle pain, 0 Refill(s) Start Date: 12/11/23 Status: Ordered calcium carbonate 1000 mg oral tablet, chewable 1,000 mg 1 tab, Chewed, Daily, # 160 tab, 1 Refill(s), Pharmacy: [facility], 168, cm, 12/12/23 14:31:00 EST, Height, 55, kg, 12/12/23 14:40:00 EST, Weight Dosing Start Date: 12/18/23 Status: Ordered celecoxib 100 mg oral capsule 100 mg = 1 cap, Oral, BID, PRN as needed for arthritis, 0 Refill(s) Start Date: 12/11/23 Status: Ordered EPINEPHrine 0.3 mg injectable kit 0.3 mg =, Intramuscular, Once, 0 Refill(s) Start Date: 12/11/23 Status: Ordered [...] 0 Refill(s) Start Date: 12/11/23 Status: Ordered ANALOG DESIGN ENGINEER Thyroid 15 mg oral tablet 45 mg [...] stone Complete d 1left leg 2020 Results Radiology Reports * Exam Date Time Procedure Performing Provider Status 12/18/23 2:28 PM XR Spine Cervical 1 View Samuel Shannon; Auth (Verified) Notes: (XR Spine Cervical 1 View) Reason For Exam: fusion XR Spine Cervical 1 View EXAM DESCRIPTION: XR Spine Cervical 1 View 12/18/2023 INDICATION: FUSION IMPRESSION: Intraoperative fluoroscopy with spot views was provided Fluoroscopy time 3.5 seconds, 2 images Status post ACDF at C4-5 and C5-6 with plate fixation apparatus. Alignment at the levels of fusion is satisfactory on submitted images. JOB #: [id number] Final Signed by: Conor Fernandez MD Signed (Electronic Signature): 12/18/2023 2:38 pm Vital Signs Most recent to oldest [Reference Range]: 1 2 3 Temperature Temporal Artery [36-38 Deg C] 36.1 Deg C (12/18/23 2:30 PM) 36.4 Deg C (12/18/23 9:39 AM) Temperature Temporal Artery (DegF) [97.3-100 Deg F] 96.98 Deg F *LOW* (12/18/23 2:30 PM) Peripheral Pulse Rate [60-100 bpm] 61 bpm (12/18/23 3:25 PM) 54 bpm *LOW* (12/18/23 3:13 PM) 59 bpm *LOW* (12/18/23 2:57 PM) Heart Rate Monitored [60-100 bpm] 53 bpm *LOW* (12/18/23 2:57 PM) 55 bpm *LOW* (12/18/23 2:37 PM) 56 bpm *LOW* (12/18/23 2:30 PM) Respiratory Rate [12-24 br/min] 18 br/min (12/18/23 3:25 PM) 16 br/min (12/18/23 3:13 PM) 16 br/min (12/18/23 2:57 PM) Blood Pressure [90-140/60-90 mmHg] 112/70mmHg (12/18/23 3:25 PM) 109/81mmHg (12/18/23 3:13 PM) 109/82mmHg (12/18/23 2:57 PM) Mean Arterial Pressure, Cuff [70-110 mmHg] 84 mmHg (12/18/23 3:25 PM) 90 mmHg (12/18/23 3:13 PM) 91 mmHg (12/18/23 2:57 PM) Mean Arterial Pressure Cuff 92 mmHg (12/18/23 2:57 PM) 90 mmHg (12/18/23 2:37 PM) 71 mmHg (12/18/23 2:30 PM) Weight 54.88 kg (12/18/23 9:39 AM) 55 kg (12/12/23 2:31 PM) Weight Dosing 55.000 kg (12/12/23 2:31 PM) Height 168 cm (12/12/23 2:31 PM) Social History Social History Type Response Tobacco Never tobacco user T obacco Use:. Sex Discharge instructions * Shanique Mcbride: PERFORM Event Display: Discharge Instructions Authored Date: [id number] XAIVER LISA :1960 Age:63 years Sex:Female Visit Date:12/18/2023 Primary Care Physician: IRISH SERRANO NP Hospital Discharge Instructions We would like to thank you for allowing us to assist you with your healthcare needs. The following includes patient education materials and information regarding your injury/illness. Your Next Steps Scheduled Future Appointments 2023 11:00 AM EST ?? With: Augie Chaves DO (Heather) Where: [facility] Status: Confirmed Sunday 2:30 PM EDT ?? With: Ricki Barragan MD Where: [facility] Neurology Status: Confirmed Medications What How Much When Instructions Next Dose Unchanged celecoxib (celecoxib 100 mg oral capsule) 1 Capsules Oral (given by mouth) 2 times a day as needed for as needed for arthritis Unchanged EPINEPHrine (EPINEPHrine 0.3 mg injectable kit) 0.3 Milligrams Intramuscular (in a muscle) Once Unchanged FLUoxetine (FLUoxetine 40 mg oral capsule) 1.5 caps Oral (given by mouth) Every day Unchanged fluticasone nasal (fluticasone 50 mcg/ inh nasal spray) 2 Sprays Nostril-Both Every day as needed for as needed for allergy symptoms Unchanged gabapentin (gabapentin 100 mg oral capsule) 3 Capsules Oral (given by mouth) Every night at bedtime Unchanged Other Prescription (BACLOFEN 10 MG TABLET) 1 tab Oral (given by mouth) 3 times a day as needed for muscle pain Unchanged thyroid desiccated (ANALOG DESIGN ENGINEER Thyroid 15 mg oral tablet) 3 tab Oral (given by mouth) Every day Your Summary Your Care Team Admitting Physician - DO Carlos Ham) Attending Physician - Augie Chaves DO (Heather) Primary Care Physician - IRISH SERRANO NP Referring Physician - Augie Chaves DO (Heather) Your Diagnosis Cervical spinal stenosis due to adjacent segment disease after fusion procedure Other cervical disc degeneration, unspecified cervical region Problems Ongoing - Any problem that you are currently receiving treatment for. Colonic polyp Constipation Female urinary stress incontinence Gastritis Danny thyroiditis History of kidney stone IBS - Irritable bowel syndrome Migraine Numbness of hand ANIBAL - Obstructive sleep apnea Osteoarthritis Periodic limb movement disorder Sleep related bruxism Historical - Any problem that you are no longer receiving treatment for. Primary herpes genitalis Procedures Performed ???Appendectomy??? section???Myomectomy???Open reduction and fixation of fracture???Primaryfusion of cervical spine???Ureterorenoscopy with fragmentation and removal of kidney stone Tests Performed/Pending XR Fluoroscopy Over 1 Hour?-- Results Pending -- XR Spine Cervical 1 View Discharge Vitals Temperature??(Temporal Artery) 97.0 ??F (36.1 ??C) Heart Rate??(Peripheral) 54 Respiratory Rate?? 16 Blood Pressure?? 109/81?? Weight?? 121.01 lb (54.88 kg) Allergies Bee Stings??(Angioedema) Lactose??(Diarrhea) Sugar??(Hives) Wheat??(Rash) folic acid??(Malabsorption) oxyCODONE??(Stomach upset) tetracycline??(Rash) Patient/Household Refrigeration Mechanic Signature Patient Name:XAVIER LISA I have received this information and my questions have been answered. Patient/Household Refrigeration Mechanic Name: Patient/Household Refrigeration Mechanic Signature: Relationship to Patient: Witness Name/Signature: Date: Electronically Signed on: 12/18/2023 15:15 ESTSigned by:YURI Neurology Consult note * Event Display: Neurology Consultation * Event Display: Neurology Consultation Progress note * DO Carlos Ham): PERFORM Event Display: Progress Note - Physician Authored Date: [id number] XAVIER LISA :1960 Age:63 years Sex:Female Visit Date:12/18/2023 Primary Care Physician: IRISH SERRANO NP Today's surgery was aborted due to needed implants not being available. Will DC patient home. Electronically Signed on 12/18/23 02:32 PM DO Carlos Ham) Patient Care team information Care Team Personnel Name: IRISH SERRANO NP Position: No Access Member Role: Primary Care Physician Address: Address: [address] [place] [phone] Care Team Related Persons Name: RENNY BALL
--- OUTSIDE RECORDS SUMMARY | 2024-06-27 15:18 | XMS_ITS | Continuity of Care Document ---
Author Organization [facility] Ambulatory Clinics Address [address] [place] [address] Care Team Providers Care Curriculum Developer Name Role Phone IRISH SERRANO NP Primary Care Physician Encounter [facility] NBR [id number] Date(s): 04/11/24 - 04/11/24 [facility] Ambulatory Clin[facility] [address] [place] [address] us Discharge Disposition: Home Allergies, Adverse Reactions, [...] # 90 tab, 0 Refill(s), Pharmacy: [facility], 170, cm, 01/01/24 15:44:00 EST, Height, 55, kg, 01/01/24 15:45:00 EST, Weight Dosing Start Date: 01/24/24 Status: Ordered calcium (as calcium citrate) 250 mg oral tablet 250 mg = 1 tab, Oral, TID, # 270 tab, 2 Refill(s), [facility], 168, cm, 12/12/23 14:31:00 EST, Height, [...] # 30 tab, 0 Refill(s), Pharmacy: [facility],167.64, cm, 02/20/24 10:05:00 EDT, Height, 55.5, kg, 02/20/24 10:12:00 EDT, Weight Dosing Start Date: 03/06/24 Status: Ordered methylcobalamin 1 mg oral tablet, disintegrating 1 mg = 1 tab, Sublingual, Daily, dissolve under the tongue OTC methylcobalamin, # 60 tab, 0 Refill(s) Start Date: 01/01/24 Status: Ordered FUNERAL HOME ATTENDANT Thyroid 15 mg oral tablet 45 mg = 3 tab, Oral, Daily, 0 Refill(s) Start Date: 12/11/23 Status: Ordered oxyCODONE 5 mg oral tablet 5 mg = 1 tab, Oral, every 6 hr, PRN as needed for pain, # 30 tab, 0 Refill(s), Pharmacy: [facility], 167.64, cm, 02/20/24 10:05:00 EDT, Height, [...] 3 tab, Oral, Daily, # 270 tab, 3 Refill(s), Pharmacy: [facility], 167.64, cm, 02/20/24 10:05:00 EDT, Height, 55.5, kg, 02/20/24 10:12:00 EDT, Weight Dosing Start Date: 04/11/24 Status: Ordered VSL#3 oral capsule 2 cap, Oral, Daily, # 60 cap, 0 Refill(s), Pharmacy: [facility], 170, cm, 01/01/24 15:44:00 EST, Height, [...] MRI Safety Implantable Status Assigning Authority Unknown [id number] Unknown Unknown 06/20/25 Unknown Unknown Active Unknown Unknown Unknown [id number] Unknown 09/17/27 Unknown Unknown Active Unknown Unknown Unknown [id number] Unknown 12/29/27 Unknown Unknown Active Unknown Unknown Unknown [id number] Unknown 11/13/26 Unknown Unknown Active Unknown Patient Care team information Care Team Personnel Name: IRISH SERRANO NP Position: No Access Member Role: Primary Care Physician Address: Address: [address] [place] [address] Care Team Related Persons Name: RENNY BALL
--- OUTSIDE RECORDS SUMMARY | 2024-06-27 15:18 | XMS_ITS | Continuity of Care Document ---
Author Organization [facility] Ambulatory Clinics Address [address] [place] [address] Care Team Providers Care Community Development Aide Name Role Phone ZACH PUGH, IRISH Ramey Primary Care Physician Encounter [facility] NBR [id number] Date(s): 02/13/24 - 02/13/24 [facility] [address] [place] [address] [place] Discharge Disposition: Home Allergies, [...] spasm, # 60 tab, 0 Refill(s), Pharmacy: [facility], 170, cm, 01/01/24 15:44:00 EST, Height, 55, kg, 01/01/24 15:45:00 EST, Weight Dosing Start Date: 01/04/24 Status: Ordered baclofen 5 mg oral tablet 5 mg = 1 tab, Oral, TID, # 90 tab, 0 Refill(s), Pharmacy: [facility], 170, cm, 01/01/24 15:44:00 EST, Height, 55, kg, 01/01/24 15:45:00 EST, Weight Dosing Start Date: 01/24/24 Status: Ordered calcium (as calcium citrate) 250 mg oral tablet 250 mg = 1 tab, Oral, TID, # 270 tab, 2 Refill(s), Pharmacy: [facility], 168, cm, 12/12/23 14:31:00 [...] hr, # 60 cap, 0 Refill(s), Pharmacy: [facility], 170, cm,01/01/24 15:44:00 EST, Height, 55, kg, 01/01/24 15:45:00 EST, Weight Dosing Start Date: 02/13/24 Status: Ordered HYDROcodone-acetaminophen 5 mg-325 mg oral tablet 50 EA, 0 Refill(s), 0 Refill(s) Start Date: 01/28/24 Status: Ordered HYDROcodone-acetaminophen 7.5 mg-325 mg oral tablet 1 tab, Oral, TID, PRN as needed for pain, # 30 tab, 0 Refill(s), Pharmacy: [facility], 170, cm, 01/01/24 15:44:00 EST, Height, 55, kg, 01/01/24 15:45:00 EST, Weight Dosing Start Date: 01/29/24 Status: Ordered methylcobalamin 1 mg oral tablet, disintegrating 1 mg = 1 tab, Sublingual, Daily, dissolve under the tongue OTC methylcobalamin, # 60 tab, 0 Refill(s) Start Date: 01/01/24 Status: Ordered SCIENTIST ELECTRONICS Thyroid 15 mg oral tablet 45 mg = 3 tab, Oral, Daily, 0 Refill(s) Start Date: 12/11/23 Status: Ordered SCIENTIST ELECTRONICS Thyroid 30 mg oral tablet 45 EA, 0 Refill(s), TAKE ONE AND ONE-HALF TABLETS BY MOUTH EVERY DAY, 0 Refill(s) Start Date: 01/28/24 Status: Ordered oxyCODONE 5 mg oral tablet 5 mg = 1 tab, Oral, every 4 hr, PRN as needed for pain, pt cannot tolerate acetaminophen in vicodin-acetaminophen script she was given earlier, # 30 tab, 0 Refill(s), Pharmacy: [facility], 170,cm, 01/01/24 15:44:00 EST, Height, 55, [...] Daily, # 270 tab, 0 Refill(s), Pharmacy: [facility], 170, cm, 01/01/24 15:44:00 EST, Height, 55, kg, 01/01/24 15:45:00 EST, Weight Dosing Start Date: 01/24/24 Status: Ordered VSL#3 oral capsule 2 cap, Oral, Daily, # 60 cap, 0 Refill(s), Pharmacy: [facility], 170, cm, 01/01/24 15:44:00 EST, Height, [...] MRI Safety Implantable Status Assigning Authority Unknown [id number] Unknown Unknown 06/20/25 Unknown Unknown Active Unknown Unknown Unknown [id number] Unknown 09/17/27 Unknown Unknown Active Unknown Unknown Unknown [id number] Unknown 12/29/27 Unknown Unknown Active Unknown Unknown Unknown [id number] 2 Unknown 11/13/26 Unknown Unknown Active Unknown Patient Care team information Care Team Personnel Name: IRISH SERRANO NP Position: No Access Member Role: Primary Care Physician Address: Address: [address] [place] [address] Care Team Related Persons Name: RENNY BALL
--- OUTSIDE RECORDS SUMMARY | 2024-06-27 15:18 | XMS_ITS | Encounter Summary ---
Author Organization [facility] [place] [address] Care Team Providers Care Math Instructor Name Role Phone Unavailable Primary Care Provider Unavailabl e Encounter Details Date Type Department Care Team (Latest Contact Info) Description 11/04/2015 - 11/04/2015 11:59 PM EST Hospital Encounter [place] [address] Yeny Manuel MD [facility] [place] [address] Discharge Disposition: Home Social History Tobacco Use [...] STORAGE ONLY CT ABDOMEN AND PELVIS Routine 11/04/2015 12:00 AM EST documented in this encounter Results * Film Library- Storage Only CT Abdomen & Pelvis (11/04/2015 12:00 AM EST) Narrative [facility] - 01/31/2018 1:32 PM EST This exam is for storage only and is auto-finalizing. Yeny Manuel MD IM FILM LIBRARY ORD ERABLES [facility] [place] documented in this encounter Visit Diagnoses Not on filedocumented in this encounter
--- OUTSIDE RECORDS SUMMARY | 2024-06-27 15:18 | XMS_ITS | Encounter Summary ---
Author Organization [facility] [place] [address] Care Team Providers Care Synthetic Resin Operator Name Role Phone Unavailable Primary Care Provider Unavailabl e Encounter Details Date Type Department Care Team (Latest Contact Info) Description 10/12/2015 - 10/12/2015 11:59 PM EST Hospital Encounter [place] [address] Yeny Manuel MD [facility] [place] [address] Discharge Disposition: Home Social History Tobacco Use [...] Diagnosis Comments FILM LIBRARY STORAGE ONLY DX ABDOMEN Routine 10/12/2015 12:00 AM EST documented in this encounter Results * Film Library- Storage Only DX Abdomen (10/12/2015 12:00 AM EST) Narrative [facility] - 01/31/2018 1:34 PM EST This exam is for storage only and is auto-finalizing. Yeny Manuel MD IM FILM LIBRARY ORD ERABLES Performing Organization Address City/State/[facility] Co de Phone Number [place], [place] documented in this encounter Visit Diagnoses Not on filedocumented in this encounter
--- OUTSIDE RECORDS SUMMARY | 2024-06-27 15:18 | XMS_ITS | Continuity of Care Document ---
Author Organization [facility] Ambulatory Clinics Address [address] [place] [address] Care Team Providers Care Emr Implementation Specialist Name Role Phone IRISH SERRANO NP Primary Care Physician [phone] Encounter [facility] NBR [id number] Date(s): 02/20/24 - 02/20/24 [facility] Ambulatory [facility] [address] [place] [address] [place] Encounter Diagnosis Status post cervical spinal fusion(Discharge Diagnosis) - 02/20/24 Discharge Disposition: Home or Self Care Attending [...] Active Assessment and Plan Extracted from: Title:Neurosurgery office Visit Note Author:Augie Chaves DO (Heather) Date:02/20/24 Status post cervical spinal fusion??Z98.1 ??63-year-old female??status post C3-4 ACDF.?? She is recovering as expected with some??residual neck pain and referred pain into the suboccipital region.?She also has pain referring to the??left orbital area, which may or may not be related to the surgery.?? Since she was unable to fill her??hydrocodone ER's prescription, will order oxycodone for her instead.?? She has significant muscle spasms??but is only taking baclofen once a day. ??I instructed her to??take baclofen 3 times a day. ??Will also order rigid cervical collar??to help with her muscle spasms and??hopefully accelerate the fusion process. ??PDMP inquiry was conducted and there were no overlapping opioid scripts.?? Follow-up in 3 months. Orders: oxyCODONE 5 mg oral tablet, 5 mg = 1 tab, Oral, every 6 hr, PRN as needed for pain, # 30 tab, 0 Refill(s), Pharmacy: [facility], 167.64, cm, 02/20/24 10:05:00 EDT, Height, 55.5, kg, 02/20/24 10:12:00 EDT, Weight Dosing Future Appointments Future Scheduled Tests Radiology* MRI Spine Cervical w/o Contrast 02/07/24 * MRI Brain and IAC w/ + w/o Contrast 02/15/24 Functional Status 02/20/24 Recent Travel History No recent travel Medications [facility] Prescription 90 EA, 0 Refill(s), TAKE ONE TABLET BY MOUTH THREE TIMES A DAY, 0 Refill(s) Start Date: 01/28/24 Status: Ordered baclofen 10 mg oral tablet 10 mg = 1 tab, Oral, TID, PRN spasm, # 60 tab, 0 Refill(s), Pharmacy: [facility], 170, cm, 01/01/24 15:44:00 EST, Height, 55, kg, 01/01/24 15:45:00 EST, Weight Dosing Start Date: 01/04/24 Status: Ordered baclofen 5 mg oral tablet 5 mg = 1 tab, Oral, TID, # 90 tab, 0 Refill(s), Pharmacy: [email or web address], 170, cm, 01/01/24 15:44:00 EST, Height, 55, kg, 01/01/24 15:45:00 EST, Weight Dosing Start Date: 01/24/24 Status: Ordered calcium (as calcium citrate) 250 mg oral tablet 250 mg = 1 tab, Oral, TID, # 270 tab, 2 Refill(s), Pharmacy: [facility], 168, cm, 12/12/23 14:31:00 EST, Height, [...] 0 Refill(s) Start Date: 01/28/24 Status: Ordered methylcobalamin 1 mg oral tablet, disintegrating 1 mg = 1 tab, Sublingual, Daily, dissolve under the tongue OTC methylcobalamin, # 60 tab, 0 Refill(s) Start Date: 01/01/24 Status: Ordered STEEL ERECTOR Thyroid 15 mg oral tablet 45 mg = 3 tab, Oral, Daily, 0 Refill(s) Start Date: 12/11/23 Status: Ordered oxyCODONE 5 mg oral tablet 5 mg = 1 tab, Oral, every 6 hr, PRN as needed for pain, # 30 tab, 0 Refill(s), Pharmacy: [facility], 167.64, cm, 02/20/24 10:05:00 EDT, [...] Daily, # 270 tab, 0 Refill(s), Pharmacy: [facility], 170, cm, 01/01/24 15:44:00 EST, Height, 55, kg, 01/01/24 15:45:00 EST, Weight Dosing Start Date: 01/24/24 Status: Ordered VSL#3 oral capsule 2 cap, Oral, Daily, # 60 cap, 0 Refill(s), Pharmacy: [facility], 170, cm, 01/01/24 15:44:00 EST, [...] from documented surgical case 2left leg 2020 Vital Signs Most recent to oldest [Reference Range]: 1 Temperature Temporal Artery [36-38 Deg C ] 35.9 Deg C *LOW* (02/20/24 10:05 AM) Apical Heart Rate [60-100 bpm] 76 bpm (02/20/24 10:05 AM) Blood Pressure [90-140/60-90 mmHg] 134/6 0mmHg (02/20/24 10:05 AM) Mean Arterial Pressure, Cuff [65-140 mmH g] 85 mmHg (02/20/24 10:05 AM) Weight 55.5 kg (02/20/24 10:05 AM) Weight Measured (lbs) 122.356 lb (02/20/24 10:05 AM) Weight Dosing 55.500 kg (02/20/24 10:05 AM) Tie Siding Body Weight Calculated 59.3 kg (02/20/24 10:05 AM) Height 167.64 cm (02/20/24 10:05 AM) Height/Length Measured (inches) 66 inch (02/20/24 10:05 AM) BSA Measured 1.61 m2 (02/20/24 10:05 AM) Body Mass Index 19.75 kg/m2 (02/20/24 10:05 AM) Social History Social History Type Response Tobacco Never tobacco user T obacco Use:. Sex Implantable Device List Procedure Provider Procedure Date Device Type Site Anterior Cervical Fusion Augie Chaves DO (Heather) 01/01/24 Unknown Neck Device Identifier Serial Number Lot or Batch Number Manufacturing Date Expiration Date Distinct Identification Code MRI Safety Implantable Status Assigning Authority Unknown [id number] Unknown Unknown 06/20/25 Unknown Unknown Active Unknown Unknown Unknown [id number] Unknown 09/17/27 Unknown Unknown Active Unknown Unknown Unknown [id number] Unknown 12/29/27 Unknown Unknown Active Unknown Unknown Unknown [id number] 2 Unknown 11/13/26 Unknown Unknown Active Unknown Physician Outpatient Note * Augie Chaves DO (Heather): PERFORM Event Display: Office Clinic Note Physician Authored Date: [id number] XAVIER LISA :1960 Age:63 years Sex:Female Visit Date:02/20/2024 Primary Care Physician: IRISH SERRANO NP A Chief Complaint post op ??bilat tingling in the tips of her fingers but overall better History of Present Illness Patient presents for second postop visit.??She does note some residual numbness in the first and second digits of her right hand.?She does??have??neck and??suboccipital pain as well as??pain that radiates into her left eye, which is more noticeable without pain medication.?? She??cannot get a full night's rest but was able to??sleep the whole night??last night??after she took indomethacin.?? She was unable to fill??the last??hydrocodone prescription and??requests a different??prescription.??Patient started physical therapy. Review of Systems As per HPI Physical Exam Vitals & Measurements T:??35.9?C ??(Temporal Artery)?? HR:??76??(Apical)?? BP:??134/60?? SpO2:??99%?? HT:??167.64??cm?? WT:??55.5??kg?? BMI:??19.75?? BSA:??1.61?? NAD Trachea midline Pleasant Awake and alert Face symmetric Speech fluent and logical Motor 5/5 BUE and BLE all muscle groups Incision well healed Assessment/Plan Status post cervical spinal fusion??Z98.1 ??63-year-old female??status post C3-4 ACDF.?? She is recovering as expected with some??residual neck pain and referred pain into the suboccipital region.?She also has pain referring to the??left orbital area, which may or may not be related to the surgery.?? Since she was unable to fill her??hyd rocodone ER's prescription, will order oxycodone for her instead.?? She has significant muscle spasms??but is only taking baclofen once a day. ??I instructed her to??take baclofen 3 times a day. ??Will also order rigid cervical collar??to help with her muscle spasms and??hopefully accelerate the fusion process. ??PDMP inquiry was conducted and there were no overlapping opioid scripts.?? Follow-upin 3 months. Orders: oxyCODONE 5 mg oral tablet, 5 mg = 1 tab, Oral, every 6 hr, PRN as needed for pain, # 30 tab, 0 Refill(s), Pharmacy: [facility], 167.64, cm, 02/20/24 10:05:00 EDT, Height, 55.5, kg, 02/20/24 10:12:00 EDT, Weight Dosing Problem List/Past Medical History Ongoing Chronic pain Colonic polyp Constipation Female urinary stress incontinence Gastritis Danny thyroiditis History of kidney stone IBS - Irritable bowel syndrome Migraine Numbness of hand Oral thrush ANIBAL - Obstructive sleep apnea Osteoarthritis Periodic limb movement disorder Sleep related bruxism Historical Primary herpes genitalis Procedure/Surgical History ???Anterior Cervical Fusion (01/01/2024)???Appendectomy??? section???Myomectomy???Open reduction and fixation of fracture???Primary fusion of cervical spine???Ureterorenoscopy with fragmentation and removal of kidney stone Medications AAA - Misc Prescription baclofen 10 mg oral tablet, 10 mg= 1 tab, Oral, TID, PRN baclofen 5 mg oral tablet, 5 mg= 1 tab, Oral, TID calcium (as calcium citrate) 250 mg oral tablet, 250 mg= 1 tab, Oral, TID, 2 refills calcium (as carbonate)-vitamin D 500 mg-100 intl units oral tablet, chewable celecoxib 100 mg oral capsule, 100 mg= 1 cap, Oral, BID, PRN EPINEPHrine 0.3 mg injectable kit, 0.3 mg, Intramuscular, Once, PRN FLUoxetine 20 mg oral capsule, 20 mg= 1 cap, Oral, Daily FLUoxetine 40 mg oral capsule, 40 mg= 1 cap, Oral, Daily fluticasone 50 mcg/inh nasal spray, 1 sprays, !-Nasal, BID HYDROcodone-acetaminophen 5 mg-325 mg oral tablet methylcobalamin 1 mg oral tablet, disintegrating, 1 mg= 1 tab, Sublingual, Daily STEEL ERECTOR Thyroid 15 mg oral tablet, 45 mg= 3 tab, Oral, Daily oxyCODONE 5 mg oral tablet, 5 mg= 1 tab, Oral, every 6 hr, PRN pregabalin 75 mg oral capsule pyridoxine 100 mg oral tablet, 100 mg= 1 tab, Oral, Daily thyroid desiccated 15 mg oral tablet, 45 mg= 3 tab, Oral, Daily VSL#3 oral capsule, 2 cap, Oral, Daily Allergies Bee Stings??(Angioedema) Lactose??(Rash, Diarrhea) Sugar??(Hives) Wheat??(Rash) folic acid??(Malabsorption) oxyCODONE??(Stomach upset) tetracycline??(Rash) acetaminophen-oxycodone??(Liver problem) Social History Alcohol Never Electronic Cigarette/Vaping Electronic Cigarette Use: Never. Substance Use Never Tobacco Never tobacco user Tobacco Use:. Diagnostic Results Diagnostic Study Interpretation: Cervical x-ray 02/15/2024: Stable positioning of??C3-4 interbody construct. Electronically Signed on 02/20/24 11:03 AM DO Carlos Ham) Patient Care team information Care Team Personnel Name: IRISH SERRANO NP Position: No Access Member Role: Primary Care Physician Address: Address: [address] [place] [address] Care Team Related Persons Name: RENNY BALL
--- OUTSIDE RECORDS SUMMARY | 2024-06-27 15:18 | XMS_ITS | Continuity of Care Document ---
Author Organization [facility] Address [address] [place] [id number] Care Team Providers Care Data Warehousing Engineer Name Role Phone ZACH PUGH, IRISH Ramey Primary Care Physician Encounter [facility] NBR [id number] Date(s): 02/15/24 - 02/15/[address] [address]- [place] Discharge Disposition: Home or [...] 270 tab, 2 Refill(s), Pharmacy: [facility], 168, cm, 12/12/23 14:31:00 EST, [...] hr, # 60 cap, 0 Refill(s), Pharmacy: [facility], 170, cm,01/01/24 15:44:00 [...] 0 Refill(s) Start Date: 01/01/24 Status: Ordered ICT DEVELOPMENT MANAGER Thyroid 15 mg oral tablet 45 mg = 3 tab, Oral, Daily, 0 Refill(s) Start Date: 12/11/23 Status: Ordered oxyCODONE 5 mg oral tablet 5 mg = 1 tab, Oral, every 4 hr, PRN as needed for pain, pt cannot tolerate acetaminophen in vicodin-acetaminophen script she was given earlier, # 30 tab, 0 Refill(s), Pharmacy: [facility], 170,cm, 01/01/24 15:44:00 EST, Height, 55, [...] Daily, # 270 tab, 0 Refill(s), Pharmacy: [facility], 170, cm, 01/01/24 15:44:00 EST, Height, 55, kg, 01/01/24 15:45:00 EST, Weight Dosing Start Date: 01/24/24 Status: Ordered VSL#3 oral capsule 2 cap, Oral, Daily, # 60 cap, 0 Refill(s), Pharmacy: [facility], 170, cm, 01/01/24 15:44:00 EST, [...] 1auto-populated from documented surgical case 2left 2019 Results Radiology Reports * Exam Date Time Procedure Performing Provider Status 02/15/24 12:44 PM XR Spine Cervical 2 or 3 Views Ayah Odell (Verified) Notes: (XR Spine Cervical 2 or 3 Views) Reason For Exam: s/p ACDF XR Spine Cervical 2 or 3 Views EXAM DESCRIPTION: XR Spine Cervical 2 or 3 Views 02/15/2024 INDICATION: S/P ACDF COMPARISON: Intraoperative spot radiographs of the cervical spine from 01/01/2024 IMPRESSION: Status post ACDF at C3-4 with interbody spacer apparatus. Status post ACDF at C4-5 and C5-6 with interbody spacer apparatus and osseous strut grafts. No acute fracture or subluxation. Mild prevertebral soft tissue swelling likely reflecting residual postoperative changes. Spondylotic changes at C6-7 with intervertebral disc space narrowing and endplate osteophyte formation. JOB #: [id number] Final Signed by: Conor Fernandez MD Signed (Electronic Signature): 02/15/2024 1:10 pm Social History Social History Type Response Tobacco Never tobacco user T obacco Use:. Sex Implantable Device List Procedure Provider Procedure Date Device Type Site Anterior Cervical Fusion Augie Chaves DO (Heather) 01/01/24 Unknown Neck Device Identifier Serial Number Lot or Batch Number Manufacturing Date Expiration Date Distinct Identification Code MRI Safety Implantable Status Assigning Authority Unknown [id number] Unknown Unknown 06/20/25 Unknown Unknown Active Unknown Unknown Unknown [id number] 2 Unknown 09/17/27 Unknown Unknown Active Unknown Unknown Unknown [id number] Unknown 12/29/27 Unknown Unknown Active Unknown Unknown Unknown [id number] 2 Unknown 11/13/26 Unknown Unknown Active Unknown Patient Care team information Care Team Personnel Name: IRISH SERRANO NP Position: No Access Member Role: Primary Care Physician Address: Address: [address] [place] [id number] [place] [address] Care Team Related Persons Name: RENNY BALL
--- OUTSIDE RECORDS SUMMARY | 2024-06-27 15:18 | XMS_ITS | Encounter Summary ---
[place] [address] Care Team Providers Care Sales Designer Name Role Phone Unavailable Primary Care Provider Unavailabl e Encounter Details Date Type Department Care Team (Late st Contact Info) Description 01/16/2016 - 01/16/2016 11:59 PM EST Hospital Encounter [place] [address] [address] Davon Temporary Pain Discharge Disposition: Home [...] Diagnosis Comments FILM LIBRARY STORAGE ONLY DX ELBOW Routine 01/16/2016 12:00 AM EST Pain documented in this encounter Results * Film Library- Storage only DX Elbow (01/16/2016 12:00 AM EST) Narrative DENISE - 01/27/2016 11:21 AM EST See PACS for result report. Dr Aileen Mays IMG FILM LIBRARY ORD ERABLES [place], [place] documented in this encounter Visit Diagnoses Diagnosis Pain Generalized pain documented in this encounter
--- OUTSIDE RECORDS SUMMARY | 2024-06-27 15:19 | XMS_ITS | Continuity of Care Document ---
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 ACDF at C3-4 with interbody spacer apparatus. ??Status post previous ACDF at C4-5 and C5-6 with plate fixation apparatus. Electronically Signed on 02/15/24 05:19 PM KAROL Garvin Reviewed by: Anel Marinelli MD Outpatient Summary note * KAROL Garvin: PERFORM Event Display: Ambulatory Patient Summary Authored Date: [id number] XAVIER LISA :1960 Age:63 years Sex:Female Visit Date:02/15/2024 Primary Care Physician: IRISH SERRANO NP Ambulatory Visit Instructions We would like to thank you for allowing us to assist you with your healthcare needs. The following includes patient education materials and information regarding your injury/illness. Your Next Steps Instructions From Your Care Team Dear Ms. Carie Burgos, ?? Thank you for your visit to our clinic today. Your commitment to improving your health and proactively addressing your symptoms is commendable. We are here to support you in every step of your journey. Below are the shah instructions and next steps from our discussion: ?? - Medication Adjustments: ?? - Continue with the adjusted dosing schedule of Lyrica (pregabalin) to manage your headache painand numbness as we discussed. ?? - Symptom Tracking: ?? - Begin maintaining a detailed headache log, noting the intensity, location, and any accompanying symptoms. This record will be crucial in identifying patterns and potential triggers. ?? - Diagnostic Procedures: ?? - An MRI of the brain is recommended to delve deeper into the cause of your symptoms, especiallyconsidering your history of neck trauma and concussions. Please ensure you follow up if you do not receive an appointment confirmation. ?? - Lifestyle Modifications: ?? - Continue using your noise machine at night to aid in managing tinnitus and enhancing sleep quality. ?? - Ongoing Care and Support: ?? - We recognize the complexity of your symptoms and their significant impact on your daily life. Rest assured, we will persist in exploring a comprehensive range of medical and supportive care options to address your pain and neurological symptoms. ?? We are dedicated to assisting you in managing your health concerns and improving your quality of life. Please do not hesitate to contact us with any questions, concerns, or changes in your condition prior to our next scheduled follow-up. ?? Best regards, ?? BARBIE Lyle Scheduled Future Appointments Sunday 10:00 AM EDT ?? With: Augie Chaves DO ([facility]) Where: [facility] Status: Confirmed You Need to Complete the Following CBC w/ Diff, Blood, Routine, *Est. 02/16/24 +/- 7 days, Once, Lab Collect, Fatigue Paresthesia, Order for future visit Comprehensive Metabolic Panel, Blood, Routine, *Est. 02/16/24 +/- 7 days, Once, Lab Collect, Fatigue Paresthesia, Order for future visit Ferritin, Blood, Routine, *Est. 02/16/24 +/- 7 days, Once, Lab Collect, Fatigue Paresthesia, Order for future visit Thyroid Stimulating Hormone, Blood, Routine, *Est. 02/16/24 +/- 7 days, Once, Lab Collect, Fatigue Paresthesia, Order for future visit Vitamin B12 & Folate Level, Blood, Routine, *Est. 02/16/24 +/- 7 days, Once, Lab Collect, Fatigue Paresthesia, Order for future visit Medications What How Much When Instructions Changed FLUoxetine (FLUoxetine 20 mg oral capsule) 1 Capsules Oral (given by mouth) Every day Changed FLUoxetine (FLUoxetine 40 mg oral capsule) 1 Capsules Oral (given by mouth) Every day Changed fluticasone nasal (fluticasone 50 mcg/ inh nasal spray) 1 Sprays Nasal (into the nose) 2 times a day Changed thyroid desiccated ([employer] Thyroid 15 mg oral tablet) 3 tab Oral (given by mouth) Every day Changed thyroid desiccated (thyroid desiccated 15 mg oral tablet) 3 tab Oral (given by mouth) Every day Unchanged baclofen (baclofen 10 mg oral tablet) 1 tab Oral (given by mouth) 3 times a day as needed for spasm Unchanged baclofen (baclofen 5 mg oral tablet) 1 tab Oral (given by mouth) 3 times a day Unchanged bifidobacterium/ lactobacillus/ streptococcus (VSL#3 oral capsule) 2 Capsules Oral (given by mouth) Every day Unchanged calcium citrate (calcium (as calcium citrate) 250 mg oral tablet) 1 tab Oral (given by mouth) 3 times a day Unchanged calcium-vitamin D (calcium (as carbonate)-vitamin D 500 mg-100 intl units oral tablet, chewable) 160 EA, 0 Refill(s), CHEW 2 TABLETS (1000MG) ONCE A DAY ?? Unchanged celecoxib (celecoxib 100 mg oral capsule) 1 Capsules Oral (given by mouth) 2 times a day as needed for as needed for arthritis Unchanged EPINEPHrine (EPINEPHrine 0.3 mg injectable kit) 0.3 Milligrams Intramuscular (in a muscle) Once as needed for anaphylaxis Unchanged gabapentin (gabapentin 100 mg oral capsule) 3 Capsules Oral (given by mouth) Every night at bedtime Unchanged HYDROcodone (HYDROcodone 10 mg oral capsule, extended release) 1 Capsules Oral (given by mouth) Every 12 hours Unchanged HYDROcodone-acetaminophen (HYDROcodone-acetaminophen 5 mg-325 mg oral tablet) 50 EA, 0 Refill(s) ?? Unchanged HYDROcodone-acetaminophen (HYDROcodone-acetaminophen 7.5 mg-325 mg oral tablet) 1 tab Oral (given by mouth) 3 times a day as needed for as needed for pain Unchanged methylcobalamin (methylcobalamin 1 mg oral tablet, disintegrating) 1 tab Sublingual (dissolve under the tongue) Every day dissolve under the tongue OTC methylcobalamin ?? Unchanged Other Prescription (AAA - Misc Prescription) 90 EA, 0 Refill(s), TAKE ONE TABLET BY MOUTH THREE TIMES A DAY ?? Unchanged oxyCODONE (oxyCODONE 5 mg oral tablet) 1 tab Oral (given by mouth) Every 4 hours as needed for as needed for pain pt cannot tolerate acetaminophen in vicodin-acetaminophen script she was given earlier ?? Unchanged pregabalin (pregabalin 75 mg oral capsule) 180 EA, 0 Refill(s), TAKE ONE CAPSULE BY MOUTH TWICE A DAY ?? Unchanged pyridoxine (pyridoxine 100 mg oral tablet) 1 tab Oral (given by mouth) Every day Your Summary Problems Ongoing - Any problem that you are currently receiving treatment for. Chronic pain Colonic polyp Constipation Female urinary stress incontinence Gastritis Danny thyroiditis History of kidney stone IBS - Irritable bowel syndrome Migraine Numbness of hand Oral thrush ANIBAL - Obstructive sleep apnea Osteoarthritis Periodic limb movement disorder Sleep related bruxism Historical - Any problem that you are no longer receiving treatment for. Primary herpes genitalis Your Care Team Attending Physician - DO Carlos Ham) Primary Care Physician - IRISH SERRANO NP Referring Physician - Augie Chaves, DO ([facility]) Discharge Vitals Heart Rate??(Peripheral) 58 Blood Pressure?? 104/65?? Height?? 66.00 in (167.64 cm) Weight?? 125.42 lb (56.88 kg) BMI?? 20.24 Allergies Bee Stings??(Angioedema) Lactose??(Rash, Diarrhea) Sugar??(Hives) Wheat??(Rash) folic acid??(Malabsorption) oxyCODONE??(Stomach upset) tetracycline??(Rash) acetaminophen-oxycodone??(Liver problem) Electronically Signed on: 02/15/2024 12:13 EDTSigned by:SANDEEP Patient Care team information Care Team Personnel Name: IRISH SERRANO NP Position: No Access Member Role: Primary Care Physician Address: Address: [address] [place] [address]- Care Team Related Persons Name: RENNY BALL
== END 2024-06-27 15:11 | disposition home or self-care (01) ==
LOC: LBO 15:11
PROVIDERS: PCP Nurse Practitioner; Visit Provider Nurse Practitioner
DX: E03.9 Hypothyroidism, unspecified (principal)
CPT/HCPCS: 36415; 84443

== ENCOUNTER 2024-08-16 08:15 | Emergency (ER) | payer MEDICARE, SELFPAY ==
[2024-08-16] VITALS (18 sets, daily range): BP systolic 76–121; BP diastolic 19–69; PULSE 55–65; RESP 13–23; TEMP 36.2; O2SAT 97–98
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
[2024-08-16 08:55] LABS: Bilirubin Negative (Negative); Blood Negative (Negative); Clarity Clear (Clear); Glucose Negative (Negative); Ketones Negative (Negative); Leukocyte Esterase Negative (Negative); Nitrite Negative (Negative); Specific Gravity 1.015 (1.005-1.025); Urobilinogen 0.2 mg/dL (Up to 0.2)
[2024-08-16] MEDS: ACETAMINOPHEN 1,000 MG/100 ML BTL 400 MG IVPB (09:06)
[2024-08-16] MEDS: Ketorolac 15 MG/ML VIAL IVP (09:07)
[2024-08-16] MEDS: Normal Saline 1,000 ML 1000 ML IV (09:07)
[2024-08-16] MEDS: Ondansetron 4 MG/2 ML VIAL IVP (09:07)
[2024-08-16 09:12] LABS: Lactate 0.8 mmol/L (0.6-1.4)
[2024-08-16 09:14] LABS: Abs Immature Grans 0.01 10^3/uL (0.0-0.06); Absolute Basophil Count 0.03 10^3/uL (0.0-0.2); Absolute Eosinophil Count 0.04 10^3/uL (0.0-0.7); Absolute Lymphocyte Count 0.88 10^3/uL (1.2-3.4); Absolute Neutrophil Count 4.41 10^3/uL (1.2-6.7); Basophils % 0.5 %; Eosinophils % 0.7 %; HCT 37.6 % (36.0-46.0); HGB 12.6 g/dL (11.2-15.7); Immature Grans % 0.2 %; Lymphocytes % 15.3 %; MCH 31.1 pg (27.0-33.0); MCHC 33.5 % (32.0-36.0); MCV 93 fL (80-95); MPV 9.2 fL (8.0-11.0); Monocytes % 6.9 %; Neutrophils % 76.4 %; Platelet Count 229 10^3/uL (130-400); RBC 4.05 10^6/uL (3.93-5.22); RDW 13.5 % (11.7-14.6); RDW-SD 46.4 fL; WBC 5.77 10^3/uL (4.4-10.8)
[2024-08-16 09:21] LABS: ESR 2 mm/hr (0-30)
[2024-08-16 09:32] LABS: ALT 32 U/L (14-59); AST 16 U/L (15-37); Albumin 3.8 g/dL (3.4-5.0); Alkaline Phosphatase 80 U/L (46-116); BUN 12 mg/dL (7-18); Bilirubin, Total 0.55 mg/dL (0.2-1.0); C-Reactive Protein < 0.50 mg/dL (<or=0.5); CREATININE 0.8 mg/dL (0.55-1.02); Calcium 9.1 mg/dL (8.5-10.1); Chloride 101 mmol/L (98-107); Estimated GFR 81.72 (mL/min/1.73m2); Glucose 96 mg/dL (74-106); Lipase 46 U/L (16-77); Magnesium 2.1 mg/dL (1.8-2.4); Potassium 4.2 mmol/L (3.5-5.1); Sodium 136 mmol/L (136-145); Total Protein 6.8 g/dL (6.4-8.2); Troponin I 8 ng/L (<or=51)
[2024-08-16 10:27] LABS: Troponin I 9 ng/L (<or=51)
== END 2024-08-16 11:05 | disposition home or self-care (01) ==
PROVIDERS: Emergency Provider Physician Assistant; PCP Nurse Practitioner
DX: R10.9 Unspecified abdominal pain (principal); R53.83 Other fatigue; R30.0 Dysuria
CPT/HCPCS: 36415; 80053; 83690; 85652; 96361; 96365; 96375; 99284; 81003; 83605; 83735; 84484; 85025; 86140; J0131; J1885; J2405

== ENCOUNTER 2025-05-27 15:20 | Outpatient (CLI) | payer MEDICARE, SELFPAY | END 2025-05-27 15:21 | disposition home or self-care (01) | LOC: LBO 15:21 | PROVIDERS: PCP Nurse Practitioner; Visit Provider Family Medicine | DX: E06.3 Autoimmune thyroiditis (principal) | CPT/HCPCS: 36415; 84439 ==

== ENCOUNTER 2025-06-22 02:13 | Outpatient (CLI) | payer MEDICARE, SELFPAY ==
--- NOTE | 2025-06-22 13:00 | DI.MAMMO_ITS ---
Exam(s) MAMMO SCREENING EXAM: MAMMO SCREENING CLINICAL HISTORY: screening. TECHNIQUE: Bilateral full field digital CC and MLO mammographic images were obtained with 3D tomosynthesis and utilizing computer aided detection (CAD). COMPARISON: Prior mammograms were reviewed. FINDINGS: The fibroglandular tissue is again noted be moderately dense this somewhat decreasing the sensitivity of the mammogram for finding hidden underlying lesions. There no obvious findings in the right breast. The left breast there is a subtle suggestion asymmetric density-possible nodule measuring 11 by 9 mm located 4 cm in from the nipple, lateral of center on the CC view. Spot compression view and ultrasound recommended. There are no malignant-appearing microcalcification groups in this region or elsewhere in either breast. There is no significant architectural distortion nor skin thickening-retraction. IMPRESSION: 1. Dense bilateral fibroglandular tissue. No radiographic evidence of malignancy in the right breast. 2. Possible 11 x 9 mm nodule in the left breast lateral of center on the CC view, 4 cm in from the nipple. Spot compression CC view and complete left breast ultrasound recommended. BI-RADS Category 0 - Incomplete: Need additional imaging evaluation Breast Density - Category C - The breast are heterogeneously dense, which may obscure small masses. Breast density Category C or D implies that the patient has dense breast tissue. Dense breast tissue can make it harder to find cancer on a mammogram. Dense breast tissue is also associated with an increased risk of breast cancer. This information about the result of the mammogram report was provided to the patient to raise their awareness. Use this report when you speak with the patient about their risks for breast cancer, which includes their family history. At that time, you may recommend additional screening tests (Ultrasound or MRI) as these tests may add significant information. A negative radiographic report should not delay biopsy if a dominant or clinically suspicious mass is present. Up to ten percent of cancers are not identified on mammography. A negative report may reinforce clinical impression. Adenosis and dense breasts may obscure an underlying neoplasm. False positive reports average 6 to 10%. Patient will receive a letter notifying them of these results.
== END 2025-06-22 02:33 ==
LOC: DI 02:13
PROVIDERS: PCP Nurse Practitioner; Visit Provider Obstetrics & Gynecology
DX: Z12.31 Encounter for screening mammogram for malignant neoplasm of breast (principal); R92.333 Mammographic heterogeneous density, bilateral breasts
CPT/HCPCS: 77063; 77067

== ENCOUNTER 2025-06-22 15:01 | Outpatient (REF) | payer MEDICARE, SELFPAY | END 2025-06-22 15:02 | disposition home or self-care (01) | LOC: LBN 15:01 | PROVIDERS: PCP Nurse Practitioner; Visit Provider Obstetrics & Gynecology | DX: B96.89 Other specified bacterial agents as the cause of diseases classified elsewhere (principal); Z11.3 Encounter for screening for infections with a predominantly sexual mode of transmission | CPT/HCPCS: 87480; 87510; 87660 ==

== ENCOUNTER → 2025-06-24 14:12 | Outpatient (BNVA) | payer MEDICARE, SELFPAY | PROVIDERS: PCP Nurse Practitioner; Referring Provider Nurse Practitioner; Visit Provider Podiatrist | DX: M79.672 Pain in left foot (principal); M79.671 Pain in right foot; M67.40 Ganglion, unspecified site; M20.42 Other hammer toe(s) (acquired), left foot; M21.611 Bunion of right foot; M21.612 Bunion of left foot; L84 Corns and callosities | CPT/HCPCS: 99214 ==

== ENCOUNTER 2025-06-25 01:57 | Outpatient (CLI) | payer MEDICARE, SELFPAY ==
--- NOTE | 2025-06-25 | DI.MAMMO_ITS ---
Exam(s) MG MAMMO SCREEN CALL BACK UNI US BREAST LT COMPLETE EXAM: MG MAMMO SCREEN CALL BACK UNI-LEFT AND COMPLETE LEFT BREAST ULTRASOUND CLINICAL HISTORY: F/U MAMMO, POSS 11 X 9 MM NODULE IN L BREAST, R92.8 ABN MAMMO. TECHNIQUE: Unilateral LEFT BREAST spot mammographic images obtained with 3D tomosynthesisand utilizing computer aided detection (CAD). . Complete LEFT breast Ultrasound was also performed, including all 4 quadrants, the retroareolar region, and the ipsilateral axilla. COMPARISON: Prior mammograms were reviewed. This additional imaging was performed due to findings described on the recent screening mammogram of 06/22/2025. FINDINGS: DIAGNOSTIC MAMMOGRAM: Additional mammographic views performed todayis somewhat equivocal. We proceeded with ultrasound COMPLETE LEFT BREAST ULTRASOUND: Ultrasound performed today reveals a 6 millimeter benign microcyst at the 2 o'clock position which may correspond to the finding on the recent screening mammogram. An even smaller microcyst measuring 3 mm is seen at the 1 o'clock position. Most importantly, there are no solid lesions seen in all 4 quadrants of the left breast. Scanning of the ipsilateral axilla reveals no significant adenopathy. IMPRESSION: 1. Benign findings (microcysts). No solid lesions. Appropriate follow-up is to keep this patient on her yearly mammogram schedule, with earlier imaging if a self detected breast change is noted. The patient was informed of these findings and recommendations by myself prior to leaving the department today. BI-RADS Category 2 - Benign Findings Breast Density - Category C - The breast are heterogeneously dense, which may obscure small masses. Breast density Category C or D implies that the patient has dense breast tissue. Dense breast tissue can make it harder to find cancer on a mammogram. Dense breast tissue is also associated with an increased risk of breast cancer. This information about the result of the mammogram report was provided to the patient to raise their awareness. Use this report when you speak with the patient about their risks for breast cancer, which includes their family history. At that time, you may recommend additional screening tests (Ultrasound or MRI) as these tests may add significant information. A negative radiographic report should not delay biopsy if a dominant or clinically suspicious mass is present. Up to ten percent of cancers are not identified on mammography. A negative report may reinforce clinical impression. Adenosis and dense breasts may obscure an underlying neoplasm. False positive reports average 6 to 10%. Patient will receive a letter notifying them of these results.
== END 2025-06-25 02:17 ==
LOC: DI 01:57
PROVIDERS: PCP Nurse Practitioner; Visit Provider Obstetrics & Gynecology
DX: Z12.31 Encounter for screening mammogram for malignant neoplasm of breast (principal); N62 Hypertrophy of breast
CPT/HCPCS: 76642; 77063; 77067; 99213; 73630

== ENCOUNTER 2025-06-25 11:00 | Outpatient (CLI) | payer MEDICARE, SELFPAY ==
--- NOTE | 2025-06-25 10:30 | DI.RAD_ITS ---
Exam(s) XR FOOT RT COMPLETE EXAM: XR FOOT RT COMPLETE CLINICAL HISTORY: Bunion M21.611. TECHNIQUE: 2D digital imaging was performed. Three views. COMPARISON: CR XR FOOT LT COMPLETE from 06/08/2020 FINDINGS: BONES: No acute fracture is present. No bony destructive lesion is seen. JOINTS: No dislocation present. There are severe degenerative changes at the 1st meta tarsal phalangeal joint, with the severe joint space narrowing and prominent periarticular spurring. No significant hallux valgus. Spurring is also noted at the anterior tibiotalar joint on the lateral view. There are hammertoe deformities of the 2nd and 3rd toes. SOFT TISSUE: Normal. IMPRESSION: Severe degenerative changes of the 1st MTP joint. DATA REPOSITORY: RADIATION DOSE DELIVERED:
--- NOTE | 2025-06-25 10:30 | DI.RAD_ITS ---
Exam(s) XR FOOT LT COMPLETE EXAM: XR FOOT LT COMPLETE CLINICAL HISTORY: Third toe/bunion M21.612 M20.42 HAMMER TOE M79.672 PAIN. TECHNIQUE: 2D digital imaging was performed. Three views. COMPARISON: CR XR FOOT RT COMPLETE from 06/25/2025 FINDINGS: BONES: No acute fracture is present. No bony destructive lesion is seen. JOINTS: No dislocation present. Hammertoe deformities of the 2nd and 3rd toes. Qxiy-gz-pdgbkvtt degenerative changes of the 1st MTP joint. No significant hallux valgus. SOFT TISSUE: Normal. IMPRESSION: Hammertoe deformities of the 2nd and 3rd toes. Pirk-yz-stljehli degenerative changes of the 1st MTP joint. DATA REPOSITORY: RADIATION DOSE DELIVERED:
== END 2025-06-25 11:20 ==
LOC: DI 11:01
PROVIDERS: PCP Nurse Practitioner; Visit Provider Podiatrist
DX: M21.611 Bunion of right foot (principal); M21.612 Bunion of left foot; M20.42 Other hammer toe(s) (acquired), left foot; M79.671 Pain in right foot; M79.672 Pain in left foot; M67.40 Ganglion, unspecified site; L84 Corns and callosities
CPT/HCPCS: 99213; 73630

== ENCOUNTER → 2025-07-21 09:15 | Outpatient (BNVA) | payer MEDICARE, SELFPAY | PROVIDERS: PCP Nurse Practitioner; Referring Provider Nurse Practitioner; Visit Provider Podiatrist | DX: L60.3 Nail dystrophy (principal); B35.1 Tinea unguium; M79.671 Pain in right foot; M79.672 Pain in left foot; L84 Corns and callosities; M20.42 Other hammer toe(s) (acquired), left foot; M67.472 Ganglion, left ankle and foot; M21.611 Bunion of right foot; M21.612 Bunion of left foot | CPT/HCPCS: 99214 ==

== ENCOUNTER 2025-11-01 13:04 | Emergency (ER) | payer MEDICARE, SELFPAY ==
[2025-11-01 13:07] VITALS: BP 117/74; PULSE 59; RESP 18; TEMP 36.4; O2SAT 98
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
[2025-11-01 14:34] VITALS: BP 117/74; PULSE 59; RESP 18; TEMP 36.4; O2SAT 98
== END 2025-11-01 14:46 | disposition home or self-care (01) ==
PROVIDERS: Emergency Provider Emergency Medicine
DX: G47.00 Insomnia, unspecified (principal)
CPT/HCPCS: 99283

== ENCOUNTER 2025-11-10 08:58 | Outpatient (REF) | payer MEDICARE, SELFPAY ==
[2025-11-10 14:18] LABS: Abs Immature Grans 0.01 10^3/uL (0.0-0.06); HCT 38.8 % (36.0-46.0); HGB 12.8 g/dL (11.2-15.7); Immature Grans % 0.2 %; MCH 30.8 pg (27.0-33.0); MCHC 33.0 % (32.0-36.0); MCV 93 fL (80-95); MPV 10.0 fL (8.0-11.0); Platelet Count 237 10^3/uL (130-400); RBC 4.16 10^6/uL (3.93-5.22); RDW 13.5 % (11.7-14.6); RDW-SD 46.5 fL; WBC 4.62 10^3/uL (4.4-10.8)
[2025-11-10 15:38] LABS: Magnesium 2.2 mg/dL (1.6-2.6)
[2025-11-10 15:40] LABS: ALT 21 U/L (10-49); AST 18 U/L (<34); Albumin 4.4 g/dL (3.2-5.0); Alkaline Phosphatase 62 U/L (46-116); Anion Gap 8 mmol/L (3-11); BUN 15 mg/dL (9-23); Bilirubin, Total 0.7 mg/dL (0.2-1.2); CO2 29.0 mmol/L (20.0-31.0); Calcium 9.6 mg/dL (8.3-10.6); Chloride 105 mmol/L (98-107); Glucose 89 mg/dL (74-106); Potassium 4.1 mmol/L (3.5-5.1); Sodium 142 mmol/L (136-145); Total Protein 6.6 g/dL (5.7-8.2)
[2025-11-10 15:42] LABS: TSH 1.41 uIU/mL (0.55-4.78)
[2025-11-10 15:43] LABS: Vitamin B12 1072 pg/mL (211-911)
[2025-11-10 22:19] LABS: T3,Free 3.7 pg/mL (2.8-5.3)
== END 2025-11-10 08:59 | disposition home or self-care (01) ==
LOC: NCHCN 08:58
PROVIDERS: Visit Provider Nurse Practitioner Family
DX: D80.1 Nonfamilial hypogammaglobulinemia (principal); E06.3 Autoimmune thyroiditis; E53.8 Deficiency of other specified B group vitamins; R07.9 Chest pain, unspecified
CPT/HCPCS: 80053; 82784; 82607; 83735; 84439; 84443; 84481; 85025